=== PATIENT | female | born 1950 | race Caucasian/White ===

== ENCOUNTER 2020-05-14 19:15 | Inpatient (IN) | payer MEDICARE, MEDICAID ==
[~2020-05-14] VITALS: Ht 165.1 cm; Wt 56.8 kg
--- NOTE | 2020-05-14 19:20 | NUR ---
ED Nurse Note: pt BROOKE KRYSTYNA RA 25 from [facility] for hypotension and respiratory distress. per EMS, pt's BP was in the 50's systolic, she was satting in the low 80's on RA. pt presents on a NRB mask with 15L O2 satting in the low 90's, she appears to have increased work of breathing with tachycardia ranging in the 180's-190's. pt is not alert or oriented, groaning, mildy responsive to pain. LEIGHTON, 2 RN's and RT immediately at pt bedside. ERMD cardioverted pt, RN's unable to establish peripheral IV, pt prepared for central line
--- NOTE | 2020-05-14 19:27 | NUR ---
ED Nurse Note: triple lumen central line placed in R IJ by Dr. Soliman
--- NOTE | 2020-05-14 19:30 | NUR ---
ED Nurse Note: pads placed on pt, LEIGHTON cardioverted pt at following: HR 174, 120 J delivered by LEIGHTON 1932: HR 158, 150 J delivered by LEIGHTON 1939: HR 162, 200J delivered by LEIGHTON 1947: HR 184, 200J delivered by LEIGHTON 1951: HR 175, 200J delievered by LEIGHTON
[2020-05-14 19:35] VITALS: BP 60/40
--- NOTE | 2020-05-14 19:45 | NUR ---
ED Nurse Note: ERMD gave verbal order for 10mg of entomidate and 100mg of Rocoronium to prepare pt for intubation
--- NOTE | 2020-05-14 19:45 | NUR ---
ED Nurse Note: Dr. Soliman placed triple lumen central line to pt's R IJ. all ports flushing well, patent and intact. blood collected and sent to lab
--- NOTE | 2020-05-14 19:50 | NUR ---
Note undone in EDM - 05/14/20 at 2312 by QLE ED Nurse Note: pt BROOKE KRYSTYNA RA 25 from [facility] for hypotension and respiratory distress. per EMS, pt's BP was in the 50's systolic, she was satting in the low 80's on RA. pt presents on a NRB mask with 15L O2 satting in the low 90's, she appears to have increased work of breathing with tachycardia ranging in the 180's-190's. pt is not alert or oriented, groaning, mildy responsive to pain. LEIGHTON, 2 RN's and RT immediately at pt bedside. LEIGHTON cardioverted pt, RN's unable to establish peripheral IV, pt prepared for central line
--- NOTE | 2020-05-14 19:50 | NUR ---
ED Nurse Note: ERMD gave verbal order for levophed, max dose. pt has levophed running at 30 mcg/ min
--- NOTE | 2020-05-14 19:50 | NUR ---
ED Nurse Note: ERMD placed ETT with RT at pt bedside, 2 attempts, successful on second attempt, chest rise noted
--- NOTE | 2020-05-14 19:51 | NUR ---
ED Nurse Note: pt appeared to have dark red blood suctioned from airway on intubation. approximately 50 mL in suction cannister
[2020-05-14 19:54] LABS: BASOPHILS % (AUTO) 1.4 % (0.0-2.0); HEMATOCRIT 43.5 % (37.0-47.0); HEMOGLOBIN 13.7 G/DL (12.0-16.0); LYMPHOCYTES % (AUTO) 9.4 % (20.0-45.0); MEAN CORPUSCULAR VOLUME 98 FL (80-99); MONOCYTES % (AUTO) 4.6 % (1.0-10.0); NEUTROPHILS % (AUTO) 84.7 % (45.0-75.0); PLATELET COUNT 104 K/UL (150-450); RED BLOOD COUNT 4.46 M/UL (4.20-5.40); RED CELL DISTRIBUTION WIDTH 14.8 % (11.6-14.8); WHITE BLOOD COUNT 12.4 K/UL (4.8-10.8)
--- NOTE | 2020-05-14 20:00 | NUR ---
ED Nurse Note: HR 177, pt cardioverted. 200J shock delivered by ERMD
--- NOTE | 2020-05-14 20:00 | NUR ---
ED Nurse Note: pt is noted to have a g tube and a small wound on her back, redness to coccyx with skin intact, as well as one on LLE Addendum: 05/14/20 at 2206 by QLE rectal temp of 104.0
[2020-05-14 20:13] LABS: LACTATE DEHYDROGENASE 543 U/L (81-234)
--- NOTE | 2020-05-14 20:13 | Emergency Room Report ---
History of Present Illness General Chief Complaint: Dyspnea/Respdistress Source: Medical Record, EMS Present Illness HPI Disclaimer: Please note that this report is being documented using DRAGON technology. This can lead to erroneous entry secondary to incorrect interpretation by the dictating instrument. HPI: 70-year-old female history of dementia, cachexia, dysphasia G-tube dependent feeding presents for evaluation of rapid heart rate and hypotension. Patient brought in by EMS from intermediate facility. She is on nonrebreather, saturating 90%, tachypneic, moaning incoherently. Heart rate between 180 and 200 bpm. Initial systolic blood pressures in the 50s. Cannot obtain any information from patient or EMS. 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 EOMI. Cardiovascular: Tachycardia heart rate [place] I 80 bpm Resp: On nonrebreather 15 L, tachypneic with increased work of breathing Abdomen: G-tube in place, abdomen nondistended Skin: Intact. No abrasions, laceration or rash over the exposed skin MSK: Diffuse loss of muscle tone and bulk Neuro: Moaning incoherently, GCS 7 Procedures Critical Care Time Critical Care Time Total critical care time: Approximately 90 minutes Due to a high probability of clinically significant, life threatening deterioration, the patient required the highest level of preparedness to intervene emergently and I personally spent this critical care time directly and personally managing the patient. This critical care time included obtaining a history, examining the patient, pulse oximetry, ordering and reviewing studies , ordering treatments, evaluating response to treatment and updating management plan as needed, frequent reassessment and discussion with other providers as well as arranging for ultimate disposition. This critical to care time was performed to assess and manage the high probability of life-threatening deterioration that could result in multiorgan failure. This critical care time is separate from the separately billable procedures and treating other patients. Cardioversion Cardioversion: Consent: Emergent Indication: SVT Type: Synchonis Response: Sinus Attempts: Other - 5 Complications: None Central Line Central Line : Consent: Emergent Central Line Lumen: triple Maximal Sterile Barrier Tech: yes cap, yes mask, yes sterile gloves, yes hand hygiene, yes chlorhexidine prep No Max Barrier Tech Because: emergency insertion Central Line Postion: internal jugular (R) US Guided Line?: Yes Vessel visualized with U/S: Right Internal Jugular Ultrasound Findings: Collapsible Vessel, Vessel Patent, Visualize vessel puncture Complications: none Central Line Post Position: sutured, good blood return, position confirmed w / CXR Attempts: One Patient Tolerated: Well Complications: None Intubation Intubation : Consent: Emergent Intubation Method: orotracheal Tube Size (cm): 7.5 Medications: Etomidate, Rocuronium Breath Sounds after Intubation: equal Intubation Complications: no complications Post Intubation Xray: Yes Progress/Xray Impression: ET tube above the awa Attempts: One Patient Tolerated: Well Complications: None Medical Decision Making Diagnostic Impression: Primary Impression: COVID-19 Additional Impressions: Rapid atrial fibrillation Respiratory failure Sepsis Hypernatremia Renal failure Elevated d-dimer ER Course Is a 70-year-old female presenting hypotensive, tachycardic and respiratory distress. Patient was in a narrow complex tachycardia on arrival and hypotensive. Synchronized cardioversion performed multiple times with final control of rhythm and rate. Remains tachycardic in the 130s. Patient had very poor peripheral access and a right-sided internal jugular line was placed by me under ultrasound guidance. Started immediately on levo fed, 30 cc/kg sepsis fluids. Patient was intubated under glide scope visualization was 7.5 and a tracheal tube. There was dark blood in the upper airway. Endotracheal tube appears in appropriate position above the awa. No obvious infiltrate. Full lab panel sent including cultures and lactate. Started on broad-spectrum antibiotics. Acetaminophen ordered for high fever. She is positive for COVID- 19. Decadron ordered. D-dimer positive but will defer anticoagulants at this time as the patient had bloody secretions in the oral airway. Patient will be admitted to her PMD, Dr. Wade, to the ICU. Sepsis reevaluation: I, Dr. Antoine Soliman, reevaluated the patient at 2032 MAP: 65 Heart rate: 123 Respiratory rate: 22 Initial Lactate: 5.0 Repeat Lactate: 3.0 Pressors: Levophed No signs of fluid overload Laboratory Tests Test 05/14/20 19:20 05/14/20 21:00 White Blood Count 12.4 K/UL (4.8-10.8) H Red Blood Count 4.46 M/UL (4.20-5.40) Hemoglobin 13.7 G/DL (12.0-16.0) Hematocrit 43.5 % (37.0-47.0) Mean Corpuscular Volume 98 FL (80-99) Mean Corpuscular Hemoglobin 30.7 PG (27.0-31.0) Mean Corpuscular Hemoglobin Concent 31.4 G/DL (32.0-36.0) L Red Cell Distribution Width 14.8 % (11.6-14.8) Platelet Count 104 K/UL (150-450) L Mean Platelet Volume 15.0 FL (6.5-10.1) H Neutrophils (%) (Auto) 84.7 % (45.0-75.0) H Lymphocytes (%) (Auto) 9.4 % (20.0-45.0) L Monocytes (%) (Auto) 4.6 % (1.0-10.0) Eosinophils (%) (Auto) 0.0 % (0.0-3.0) Basophils (%) (Auto) 1.4 % (0.0-2.0) Prothrombin Time 11.5 SEC (9.30-11.50) Prothrombin Time INR 1.0 (0.9-1.1) Activated Partial Thromboplast Time 22 SEC (23-33) L D-Dimer 2.05 mg/L FEU (0.00-0.49) H Sodium Level 174 MMOL/L (136-145) *H Potassium Level 4.3 MMOL/L (3.5-5.1) Chloride Level 130 MMOL/L (98-107) H Carbon Dioxide Level 31 MMOL/L (21-32) Anion Gap 14 mmol/L (5-15) Blood Urea Nitrogen 131 mg/dL (7-18) H Creatinine 2.7 MG/DL (0.55-1.30) H Estimated Glomerular Filtration Rate 17.4 mL/min (>60) Glucose Level 462 MG/DL (74-106) H Lactic Acid Level 5.00 mmol/L (0.4-2.0) H Calcium Level 9.5 MG/DL (8.5-10.1) Ferritin 912 NG/ML (8-388) H Total Bilirubin 0.5 MG/DL (0.2-1.0) Aspartate Amino Transferase (AST) 51 U/L (15-37) H Alanine Aminotransferase (ALT) 101 U/L (12-78) H Alkaline Phosphatase 25 U/L (46-116) L Lactate Dehydrogenase 543 U/L (81-234) H Total Creatine Kinase 65 U/L (26-308) Creatine Kinase MB < 0.5 NG/ML (0.0-3.6) Creatine Kinase MB Relative Index 0.7 Troponin I 1.258 ng/mL (0.000-0.056) C-Reactive Protein, Quantitative < 0.4 mg/dL (0.00-0.90) Pro-B-Type Natriuretic Peptide 18745 pg/mL (0-125) H Total Protein 6.6 G/DL (6.4-8.2) Albumin 2.5 G/DL (3.4-5.0) L Globulin 4.1 g/dL Albumin/Globulin Ratio 0.6 (1.0-2.7) L Arterial Blood pH 7.385 (7.350-7.450) Arterial Blood Partial Pressure CO2 38.6 mmHg (35.0-45.0) Arterial Blood Partial Pressure O2 208.2 mmHg (75.0-100.0) H Arterial Blood HCO3 22.6 mmol/L (22.0-26.0) Arterial Blood Oxygen Saturation 98.6 % (95-100) Arterial Blood Base Excess -2.1 (-2-2) L Anthony Test Positive Microbiology Date/Time Source Procedure Growth Status 05/14/20 19:40 Nasopharynx SARS-CoV-2 RdRp Gene Assay - Final Complete EKG Diagnostic Results EKG Time: 19:11 Rate: tachycardiac Other Impression Irregular rhythm, narrow complex tachycardia. Rhythm Strip Diag. Results Rhythm Strip Time: 19:11 EP Interpretation: yes Rate: 190s Rhythm: other - Irregularly rhythm narrow complex tachycardia Chest X-Ray Diagnostic Results Chest X-Ray Diagnostic Results : Chest X-Ray Ordered: Yes # of Views/Limited/Complete: 1 View Indication: Shortness of Breath EP Interpretation: Yes Interpretation: no consolidation, no effusion, no pneumothorax, other - ETT above the awa. No obvious infiltrate. Central line appropriate position Impression: Other - ETT in appropriate position Electronically Signed by: Electronically signed by Dr. Antoine Soliman Last Vital Signs Date Time Temp Pulse Resp B/P (MAP) Pulse Ox O2 Delivery O2 Flow Rate FiO2 05/14/20 19:35 160 30 Non-Rebreather 15.0 05/14/20 19:35 60/40 97 05/14/20 19:04 104.0 Disposition: ADMITTED INPATIENT Condition: Critical Referrals: Jessica Wade MD (PCP) Antoine Soliman MD May 14, 2020 20:13
[2020-05-14] MEDS ORDERED: Piperacillin/Tazobactam 3.375 GM in NS 110 ML IVPB ONE (20:15)
[2020-05-14] MEDS ORDERED: Morphine Sulfate 2mg/ml Inj(IV/IM USE ONLY) IVP PRN ×2 (20:15)
[2020-05-14] MEDS ORDERED: Cefepime HCl 1 GM in D5W 55 ML IVPB ONE (20:15)
[2020-05-14] MEDS ORDERED: Acetaminophen 650 MG SUPP RECTAL ONE (20:15)
[2020-05-14] MEDS ORDERED: Vancomycin 1 GM in NS 275 ML IVPB ONE (20:15)
[2020-05-14 20:25] LABS: ALANINE AMINOTRANSFERASE 101 U/L (12-78); ALBUMIN 2.5 G/DL (3.4-5.0); ALBUMIN/GLOBULIN RATIO 0.6 (1.0-2.7); ALKALINE PHOSPHATASE 25 U/L (46-116); ANION GAP 14 mmol/L (5-15); ASPARTATE AMINO TRANSFERASE 51 U/L (15-37); BILIRUBIN,TOTAL 0.5 MG/DL (0.2-1.0); BLOOD UREA NITROGEN 131 mg/dL (7-18); CALCIUM 9.5 MG/DL (8.5-10.1); CARBON DIOXIDE 31 MMOL/L (21-32); CHLORIDE 130 MMOL/L (98-107); CKMB < 0.5 NG/ML (0.0-3.6); CREATINE KINASE 65 U/L (26-308); CREATININE 2.7 MG/DL (0.55-1.30); FERRITIN 912 NG/ML (8-388); POTASSIUM 4.3 MMOL/L (3.5-5.1)
[2020-05-14 20:27] LABS: SODIUM 174 MMOL/L (136-145)
--- NOTE | 2020-05-14 20:34 | Diagnostic Imaging Report ---
EXAM: XR Chest, 1 View CLINICAL HISTORY: SOB TECHNIQUE: Frontal view of the chest. COMPARISON: No relevant prior studies available. FINDINGS: Lungs: Retrocardiac atelectasis/infiltrate. Pulmonary venous congestion. Pleural space: No pleural effusion. No pneumothorax. Heart: Unremarkable. No cardiomegaly. Bones/joints: Degenerative changes in the shoulders. Tubes, lines and devices: Endotracheal tube terminates 4 cm above the awa. Right IJ central line terminates within the right atrium. IMPRESSION: 1. Appropriately positioned position lines and tubes. 2. Retrocardiac atelectasis/infiltrate. 3. Pulmonary venous congestion.
[2020-05-14 20:35] VITALS: BP 93/56
[2020-05-14 21:00] VITALS: BP 83/54
[2020-05-14] MEDS: Enoxaparin 30mg Inj SUBQ SCH (21:00)
--- NOTE | 2020-05-14 21:00 | NUR ---
ED Nurse Note: ERMD gave verbal order to keep levophed at max dose of 30 mcg/min. BP is 83/54
[2020-05-14] MEDS ORDERED: Vancomycin 1 GM in D5W 275 ML IV SCH (21:15)
--- NOTE | 2020-05-14 21:20 | NUR ---
ED Nurse Note: pt remains at baseline mentation, unarosuable to name, mildy responsive to pain. triple lumen central line has IV fluids, levophed and abx running per ERMD orders. pt remains tachy at 1211 and hypotensive at 83/54 with max dose of 30 mcg/min of levophed running. bellamy catheter was placed with small amount red urine collected. temperature recheck is 100 rectally
[2020-05-14] MEDS ORDERED: Vancomycin 750mg/NS 275ml IVPB SCH ×2 (21:30)
[2020-05-14 21:40] VITALS: BP 108/69
--- NOTE | 2020-05-14 21:40 | NUR ---
ED Nurse Note: ERMD gave verbal order to keep levophed at max dose, BP 108/69
[2020-05-14] MEDS ORDERED: dexAMETHasone 10mg/ml Inj IV ONE (22:00)
[2020-05-14] MEDS ORDERED: Cefepime HCl 2 GM in D5W 110 ML IV SCH (22:00)
--- NOTE | 2020-05-14 22:00 | NUR ---
ED Nurse Note: report given to SARA Rae, no HEPA filter available in room, states she will call back when room is ready for pt
[2020-05-14 22:01] LABS: APPEARANCE,URINE TURBID; BILIRUBIN, URINE NEGATIVE (NEGATIVE); GLUCOSE, URINE (UA) NEGATIVE (NEGATIVE); KETONES,URINE 1+ (NEGATIVE); LEUKOCYTE ESTERASE ,URINE 3+ (NEGATIVE); NITRITE,URINE NEGATIVE (NEGATIVE); PH,URINE 8 (4.5-8.0); PROTEIN,URINE 4+ (NEGATIVE); UROBILINOGEN,URINE 1 MG/DL (0.0-1.0)
--- NOTE | 2020-05-14 22:30 | NUR ---
Nurse Note: Spoke with clerk Javier at [facility] and agreed to fax over medication list. Awaiting paper.
[2020-05-14 22:32] LABS: COLOR,URINE YELLOW
[2020-05-14] MEDS ORDERED: MULTI-DELYN237 ML GT (22:40)
[2020-05-14] MEDS ORDERED: BUSPAR10 MG GT (22:41)
--- NOTE | 2020-05-14 22:44 | NUR ---
NURSE NOTES: Received report from SAAR Robles at 2169. Patient arrived to ICU 2243. patient does not respond to painful stimuli. patient with 7.5 ETT at 23cm lip on ventilator AC 12 TV 500 FiO2 50% PEEP 5. BP 57/39 HR 103 temp 99.7F rectal. RIJ TLC dressing re-enforced with Levophed max 30mcg/min. gtube red with excoriation, dressing changed. abdomen soft round. Arauz catheter with scant yellow urine. right ischium nonblanchable stage I, Sacral nonblanchable stage I, left lateral lower extremity scar, upper back skin tear stage II, bilateral heel boggy. WCP taken and areas covered with Optifoam. bed locked lowest position.
--- NOTE | 2020-05-14 22:44 | NUR ---
ED Nurse Note: IV levophed d/c on floor, fully infused, new bag started by admitting RN per MD orders
[2020-05-14 23:06] VITALS: BP 83/54
--- NOTE | 2020-05-14 23:19 | NUR ---
NURSE NOTES: Paged Dr. Wade to inform of abnormal lab values, Gtube redness and excoriation with rectal bleed noted, and patient hypotensive max Levophed. Dr. Wade aware, order received for double concentration Levophed. order read back and carried out.
[2020-05-14] MEDS: Cefepime 1gm in D5W 55ml IVPB SCH (23:23)
--- NOTE | 2020-05-14 23:50 | NUR ---
NURSE NOTES: Paged Dr. Enriquez for ventilator setting and sedation orders. message left. awaiting call back.
[2020-05-15] VITALS (60 sets, daily range): BP systolic 61–157; BP diastolic 38–101
--- NOTE | 2020-05-15 | NUR ---
NURSE NOTES: patient does not respond to painful stimuli, hypoactive gag reflex with thin brown secretions noted. patient with 7.5 ETT at 23cm lip on ventilator AC 12 TV 500 FiO2 50% PEEP 5. BP 63/41 HR86 Afib on monitor. RIJ TLC dressing re-enforced with Levophed max 30mcg/min, D5W @ 100ml/hr asymptomatic. Arauz catheter draining yellow urine. bed locked lowest position. patient repositioned and oral care provided.
--- NOTE | 2020-05-15 00:15 | NUR ---
NURSE NOTES: Paged Dr. Enriquez for second time regarding ventilator setting and sedation orders. message left. awaiting call back.
--- NOTE | 2020-05-15 00:18 | NUR ---
NURSE NOTES: Paged Dr. Wade regarding patient BP 63/41 max on double concentration Levophed. orders received read back and carried out.
[2020-05-15] MEDS: Phenylephrine 100 MG in D5W 240 ML IV SCH ×2 (00:31→13:28)
--- NOTE | 2020-05-15 01:36 | NUR ---
NURSE NOTES: Dr. Enriquez returned page for ventilator setting: AC 12 TV 500 FiO2 50% PEEP 5 with order for norco as sedation. order read back and carried out.
[2020-05-15] MEDS ORDERED: HYDROcodone/Acetamin 5/325 tab GT PRN (01:45)
[2020-05-15] MEDS: Vasopressin 100 UNITS in NS 95 ML IV SCH (02:00)
--- NOTE | 2020-05-15 02:00 | NUR ---
NURSE NOTES: patient does not respond to painful stimuli. patient with 7.5 ETT at 23cm lip on ventilator AC 12 TV 500 FiO2 50% PEEP 5. BP114/68 HR104 Afib on monitor. RIJ TLC dressing re-enforced with Levophed max 30mcg/min, D5W @ 100ml/hr, and phenylephrine 160 mcg/min, asymptomatic. Arauz catheter draining yellow urine. bed locked lowest position. patient repositioned and oral care provided.
--- NOTE | 2020-05-15 04:00 | NUR ---
NURSE NOTES: patient withdraws to deep pain but nonverbal with 7.5 ETT at 23cm lip on ventilator AC 12 TV 500 FiO2 50% PEEP 5. BP104/70 HR94 NSR on monitor temp 100.4F axillary. RIJ TLC running Levophed 30mcg/min, D5W @ 100ml/hr, and phenylephrine 100 mcg/min, asymptomatic. Arauz catheter draining yellow urine. bed locked lowest position. patient bathed, repositioned and oral care provided.
[2020-05-15 05:21] LABS: HEMOGLOBIN 13.5 G/DL (12.0-16.0); MEAN CORPUSCULAR VOLUME 96 FL (80-99); PLATELET COUNT 92 K/UL (150-450); RED BLOOD COUNT 4.46 M/UL (4.20-5.40); RED CELL DISTRIBUTION WIDTH 13.8 % (11.6-14.8); WHITE BLOOD COUNT 13.4 K/UL (4.8-10.8)
--- NOTE | 2020-05-15 06:00 | NUR ---
NURSE NOTES: patient withdraws to pain and opens eyes but nonverbal with 7.5 ETT at 23cm on ventilator AC 12 TV 500 FiO2 50% PEEP 5. BP115/76 HR95. RIJ TLC running Levophed 30mcg/min, phenylephrine 100mcg/min, D5W @100ml/hr asymptomatic. gtube clamped and patent. Arauz catheter draining yellow urine. Sacral stage I, upper back II, left lateral lower leg stage II, and bilateral heels boggy covered with Optifoam. patient repositioned, oral care provided, bed locked lowest position.
[2020-05-15 06:21] LABS: ANION GAP 20 mmol/L (5-15); BLOOD UREA NITROGEN 106 mg/dL (7-18); CALCIUM 8.1 MG/DL (8.5-10.1); CARBON DIOXIDE 19 MMOL/L (21-32); CHLORIDE 119 MMOL/L (98-107); CREATININE 2.3 MG/DL (0.55-1.30); POTASSIUM 3.8 MMOL/L (3.5-5.1); SODIUM 158 MMOL/L (136-145)
[2020-05-15 06:26] LABS: ALANINE AMINOTRANSFERASE 93 U/L (12-78); ALBUMIN 2.3 G/DL (3.4-5.0); ALKALINE PHOSPHATASE 30 U/L (46-116); ANION GAP 20 mmol/L (5-15); ASPARTATE AMINO TRANSFERASE 46 U/L (15-37); BILIRUBIN,DIRECT 0.2 MG/DL (0.0-0.3); BILIRUBIN,TOTAL 0.8 MG/DL (0.2-1.0); BLOOD UREA NITROGEN 107 mg/dL (7-18); CALCIUM 8.1 MG/DL (8.5-10.1); CARBON DIOXIDE 20 MMOL/L (21-32); CHLORIDE 119 MMOL/L (98-107); CREATININE 2.3 MG/DL (0.55-1.30); POTASSIUM 3.7 MMOL/L (3.5-5.1); SODIUM 158 MMOL/L (136-145)
--- NOTE | 2020-05-15 06:45 | NUR ---
NURSE NOTES: Paged Dr. Wade to report abnormal labs. orders received read back and carried out.
--- NOTE | 2020-05-15 07:07 | NUR ---
HAND-OFF: Report given to SARA Dupree. endorsed plan of care.
--- NOTE | 2020-05-15 07:15 | NUR ---
NURSE NOTES: Patient received from Myrna RUIZ. Patient stable at this time. VSS. RR even and unlabored on ETT 7.5 lip line 23cm. Vent settings AC 12 500mL 50% P5. Breath sounds diminished. Cardiac sounds benign. Appears to be NSR on traffic monitor specialist. Patient is opening eyes does not track but responds to light pain. Pupils do not react to light consistent with hx of blindness. On q2hr accucheck. Will check at 8am when Levemir due. Arauz draining well to gravity. RT IJ patent and intact with Levo running at 30mcg and ivelisse at 100mcg. Fluids with dextose stopped at this time due to critical glucose level this AM. Side rails up x3, call light within reach, bed low and locked. Will continue to monitor.
--- NOTE | 2020-05-15 07:20 | NUR ---
NURSE NOTES: Gary brought up to 160mcg. FIO2 raised to 60%. VSS now stable. Will continue to monitor.
--- NOTE | 2020-05-15 07:38 | NUR ---
NURSE NOTES: Spoke with Dr. Wade and reported Troponin, Lactic Acid and Ammonia levels. Order received for q1hr accucheck and dose of novolog to be given.
[2020-05-15] MEDS ORDERED: NovoLOG Insulin Flexpen SUBQ SCH ×2 (08:00→11:30)
[2020-05-15] MEDS ORDERED: Levemir Flexpen SUBQ SCH (08:00)
[2020-05-15] MEDS: Pantoprazole Inj IV SCH (08:27)
--- NOTE | 2020-05-15 08:39 | NUR ---
NURSE NOTES: Dr. Wade called and reported critical high result blood sugar after 30min of administering 14 units of insulin. also reported bicab of 16 on ABG. Awaiting call back. Recommended paper cone machine tender and possible insulin drip.
[2020-05-15] MEDS ORDERED: Insulin Rate Change 1 Each MISC PRN ×2 (09:15→15:45)
[2020-05-15] MEDS ORDERED: Insulin Human Regular 100units/ml 3ml IV PRN (09:15)
[2020-05-15] MEDS: Cefepime 1gm in D5W 55ml IVPB SCH ×2 (09:16→20:58)
[2020-05-15] MEDS ORDERED: Insulin Reg 100 units Premix 100 ML IVPB SCH ×2 (09:30→15:45)
[2020-05-15 10:01] LABS: ANION GAP 20 mmol/L (5-15); BLOOD UREA NITROGEN 100 mg/dL (7-18); CALCIUM 8.8 MG/DL (8.5-10.1); CARBON DIOXIDE 20 MMOL/L (21-32); CHLORIDE 119 MMOL/L (98-107); CREATININE 2.5 MG/DL (0.55-1.30); POTASSIUM 3.5 MMOL/L (3.5-5.1); SODIUM 159 MMOL/L (136-145)
--- NOTE | 2020-05-15 10:09 | History and Physical ---
History of Present Illness General Date patient seen: May 15, 2020 Time patient seen: 08:10 Reason for Hospitalization: Dyspnea/Respdistress Present Illness HPI 70-year-old female history of dementia, CVA with dysphagia, s/p PEG dependent for feeding, cachexia, T2DM, pressure ulcers, home oxygen dependent, hypothyroidism, legal blindness, HTN who is now at [facility] due to COVID positive testing at her home SNF. She now presents for evaluation of rapid heart rate and hypotension. Patient brought in by EMS from [facility] facility. She is on nonrebreather, saturating 90%, tachypneic, moaning incoherently in the ER with Heart rate between 180 and 200 bpm. Initial systolic blood pressures in the 50s. She underwent direct cardioversion x 3 and her HR improved to the 120's, intubation, R IJ TLC done in the ED. Started on antibiotics ( Zosyn, Vanco, Cefepime ) and admission to ICU required. She was continued on D5W IVF overnight due to hypernatremia. This morning her Sodium improved from 172 to 158 however her glucose is > 600 Ventilator was adjusted and her FiO2 is now at 70 % ( from 40 % ) BP is compensated and stable with 2 vasopressors Allergies: Coded Allergies: DIVALPROEX SODIUM (Verified Allergy, Unknown, 05/14/20) PENICILLINS (Verified Allergy, Unknown, 05/14/20) COVID-19 Screening Contact w/high risk pt: Yes Recent Travel to affected area: Yes Experienced COVID-19 symptoms?: Yes COVID-19 symptoms experienced: Fever (T>100.4F or >38C) Medication History Scheduled Buspirone Hcl* (Buspar*), 5 MG GT THREE TIMES A DAY, (Reported) Multivitamin Liquid* (Multi-Delyn*), 5 ML GT DAILY, (Reported) Patient History Limited by: medical condition History Provided By: Medical Record Healthcare decision maker Resuscitation status Advanced Directive on File Past Medical/Surgical History Past Medical/Surgical History: (1) T2DM (type 2 diabetes mellitus) (2) CVA (cerebral vascular accident) (3) Dementia (4) Pressure ulcer (5) Gastrostomy present (6) COVID-19 Social History Social History: (1) COVID-19 (2) Gastrostomy present (3) T2DM (type 2 diabetes mellitus) (4) Rapid atrial fibrillation (5) Sepsis (6) Respiratory failure (7) Hypernatremia Review of Systems All Other Systems: negative except mentioned in HPI Physical Exam General Appearance: moderate distress Lines, tubes and drains: central line HEENT: normocephalic, atraumatic Neck: supple Respiratory/Chest: decreased breath sounds Cardiovascular/Chest: tachycardia Abdomen: normal bowel sounds, non tender, feeding tube Genitourinary/Rectal: bellamy 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 II-XII grossly normal Last 24 Hour Vital Signs Date Time Temp Pulse Resp B/P (MAP) Pulse Ox O2 Delivery O2 Flow Rate FiO2 05/15/20 08:11 105/71 05/15/20 07:14 103 28 60 05/15/20 07:00 101 19 90/61 (71) 92 05/15/20 07:00 90/61 05/15/20 06:30 87 22 05/15/20 06:00 95 21 115/76 (89) 95 05/15/20 06:00 115/76 05/15/20 05:15 87 18 50 05/15/20 05:00 91 20 119/101 (107) 100 05/15/20 05:00 119/101 05/15/20 04:30 94 19 102/73 (83) 05/15/20 04:00 50 05/15/20 04:00 100.4 94 17 104/70 (81) 100 05/15/20 04:00 Mechanical Ventilator 05/15/20 04:00 104/70 05/15/20 04:00 85 05/15/20 03:30 83 19 50 05/15/20 03:30 98 18 108/68 (81) 90 05/15/20 03:00 88 20 87/63 (71) 90 05/15/20 03:00 83/64 05/15/20 02:30 105 18 132/101 (111) 87 05/15/20 02:00 114/68 05/15/20 02:00 106 16 114/68 (83) 95 05/15/20 01:30 97 16 50 05/15/20 01:00 157/88 05/15/20 01:00 81 15 157/88 (111) 92 05/15/20 00:31 83 61/38 05/15/20 00:30 89 12 80/56 (64) 94 05/15/20 00:19 80 05/15/20 00:15 83 14 61/38 (46) 93 05/15/20 00:00 99.7 85 13 81/54 (63) 94 05/15/20 00:00 63/41 05/15/20 00:00 Mechanical Ventilator 05/14/20 23:32 94 12 50 05/14/20 23:11 Mechanical Ventilator 05/14/20 23:11 50 05/14/20 23:00 103/73 05/14/20 22:49 98 05/14/20 22:44 68/56 05/14/20 22:43 87/56 05/14/20 22:30 100.0 112 12 68/56 97 Mechanical Ventilator 15.0 100 05/14/20 22:30 99/68 05/14/20 22:00 82/52 05/14/20 21:57 68/56 05/14/20 21:40 100.0 112 12 108/69 97 Mechanical Ventilator 100 05/14/20 21:37 100.0 05/14/20 21:00 104.0 115 20 83/54 100 Mechanical Ventilator 15.0 50 05/14/20 20:35 120 20 93/56 100 Mechanical Ventilator 100 05/14/20 19:45 124 12 100 05/14/20 19:35 160 30 Non-Rebreather 15.0 05/14/20 19:35 160 30 60/40 97 Non-Rebreather 15.0 05/14/20 19:04 104.0 160 30 60/40 (47) 97 Non-Rebreather 15.0 Intake and Output 05/14/20 05/15/20 19:00 07:00 Intake Total 1878.4159 ml Output Total 885 ml Balance 993.4159 ml Intake Oral 0 ml IV Total 1878.4159 ml Output Urine Total 885 ml Laboratory Tests Test 05/14/20 19:20 05/14/20 21:00 05/14/20 21:30 05/15/20 04:00 White Blood Count 12.4 K/UL (4.8-10.8) H 13.4 K/UL (4.8-10.8) H Red Blood Count 4.46 M/UL (4.20-5.40) 4.46 M/UL (4.20-5.40) Hemoglobin 13.7 G/DL (12.0-16.0) 13.5 G/DL (12.0-16.0) Hematocrit 43.5 % (37.0-47.0) 43.0 % (37.0-47.0) Mean Corpuscular Volume 98 FL (80-99) 96 FL (80-99) Mean Corpuscular Hemoglobin 30.7 PG (27.0-31.0) 30.2 PG (27.0-31.0) Mean Corpuscular Hemoglobin Concent 31.4 G/DL (32.0-36.0) L 31.3 G/DL (32.0-36.0) L Red Cell Distribution Width 14.8 % (11.6-14.8) 13.8 % (11.6-14.8) Platelet Count 104 K/UL (150-450) L 92 K/UL (150-450) L Mean Platelet Volume 15.0 FL (6.5-10.1) H 14.6 FL (6.5-10.1) H Neutrophils (%) (Auto) 84.7 % (45.0-75.0) H % (45.0-75.0) Lymphocytes (%) (Auto) 9.4 % (20.0-45.0) L % (20.0-45.0) Monocytes (%) (Auto) 4.6 % (1.0-10.0) % (1.0-10.0) Eosinophils (%) (Auto) 0.0 % (0.0-3.0) % (0.0-3.0) Basophils (%) (Auto) 1.4 % (0.0-2.0) % (0.0-2.0) Prothrombin Time 11.5 SEC (9.30-11.50) Prothromb Time International Ratio 1.0 (0.9-1.1) Activated Partial Thromboplast Time 22 SEC (23-33) L D-Dimer 2.05 mg/L FEU (0.00-0.49) H Sodium Level 174 MMOL/L (136-145) *H 158 MMOL/L (136-145) #H Potassium Level 4.3 MMOL/L (3.5-5.1) 3.7 MMOL/L (3.5-5.1) Chloride Level 130 MMOL/L (98-107) H 119 MMOL/L (98-107) H Carbon Dioxide Level 31 MMOL/L (21-32) 20 MMOL/L (21-32) L Anion Gap 14 mmol/L (5-15) 20 mmol/L (5-15) H Blood Urea Nitrogen 131 mg/dL (7-18) H 107 mg/dL (7-18) H Creatinine 2.7 MG/DL (0.55-1.30) H 2.3 MG/DL (0.55-1.30) H Estimat Glomerular Filtration Rate 17.4 mL/min (>60) 20.9 mL/min (>60) Glucose Level 462 MG/DL (74-106) H 751 MG/DL (74-106) *H Lactic Acid Level 5.00 mmol/L (0.4-2.0) H 3.00 mmol/L (0.66-2.22) H 5.90 mmol/L (0.4-2.0) H Calcium Level 9.5 MG/DL (8.5-10.1) 8.1 MG/DL (8.5-10.1) L Ferritin 912 NG/ML (8-388) H Total Bilirubin 0.5 MG/DL (0.2-1.0) 0.8 MG/DL (0.2-1.0) Aspartate Amino Transf (AST/SGOT) 51 U/L (15-37) H 46 U/L (15-37) H Alanine Aminotransferase (ALT/SGPT) 101 U/L (12-78) H 93 U/L (12-78) H Alkaline Phosphatase 25 U/L (46-116) L 30 U/L (46-116) L Lactate Dehydrogenase 543 U/L (81-234) H Total Creatine Kinase 65 U/L (26-308) Creatine Kinase MB < 0.5 NG/ML (0.0-3.6) Creatine Kinase MB Relative Index 0.7 Troponin I 1.258 ng/mL (0.000-0.056) 1.202 ng/mL (0.000-0.056) C-Reactive Protein, Quantitative < 0.4 mg/dL (0.00-0.90) Pro-B-Type Natriuretic Peptide 94438 pg/mL (0-125) H Total Protein 6.6 G/DL (6.4-8.2) 6.3 G/DL (6.4-8.2) L Albumin 2.5 G/DL (3.4-5.0) L 2.3 G/DL (3.4-5.0) L Globulin 4.1 g/dL Albumin/Globulin Ratio 0.6 (1.0-2.7) L Arterial Blood pH 7.385 (7.350-7.450) Arterial Blood Partial Pressure CO2 38.6 mmHg (35.0-45.0) Arterial Blood Partial Pressure O2 208.2 mmHg (75.0-100.0) H Arterial Blood HCO3 22.6 mmol/L (22.0-26.0) Arterial Blood Oxygen Saturation 98.6 % (95-100) Arterial Blood Base Excess -2.1 (-2-2) L Anthony Test Positive Urine Color Yellow Urine Appearance Turbid Urine pH 8 (4.5-8.0) Urine Specific Jelm 1.010 (1.005-1.035) Urine Protein 4+ (NEGATIVE) H Urine Glucose (UA) Negative (NEGATIVE) Urine Ketones 1+ (NEGATIVE) H Urine Blood 5+ (NEGATIVE) H Urine Nitrite Negative (NEGATIVE) Urine Bilirubin Negative (NEGATIVE) Urine Urobilinogen 1 MG/DL (0.0-1.0) H Urine Leukocyte Esterase 3+ (NEGATIVE) H Urine RBC Tntc /HPF (0 - 2) H Urine WBC 15-20 /HPF (0 - 2) H Urine Squamous Epithelial Cells Moderate /LPF (NONE/OCC) H Urine Bacteria Many /HPF (NONE) H Neutrophils % (Manual) Pending Lymphocytes % (Manual) Pending Platelet Estimate Pending Platelet Morphology Pending Hemoglobin A1c 7.8 % (4.3-6.0) H Direct Bilirubin 0.2 MG/DL (0.0-0.3) Ammonia 35 umol/L (11-32) H Test 05/15/20 08:19 05/15/20 08:30 Arterial Blood pH 7.405 (7.350-7.450) Arterial Blood Partial Pressure CO2 26.1 mmHg (35.0-45.0) L Arterial Blood Partial Pressure O2 109.4 mmHg (75.0-100.0) H Arterial Blood HCO3 16.0 mmol/L (22.0-26.0) *L Arterial Blood Oxygen Saturation 97.6 % (95-100) Arterial Blood Base Excess -7.0 (-2-2) L Anthony Test Positive Sodium Level Pending Potassium Level Pending Chloride Level Pending Carbon Dioxide Level Pending Blood Urea Nitrogen Pending Creatinine Pending Estimat Glomerular Filtration Rate Pending Glucose Level Pending Hemoglobin A1c Pending Calcium Level Pending Phosphorus Level Pending Magnesium Level Pending Microbiology Date/Time Source Procedure Growth Status 05/14/20 19:40 Nasopharynx SARS-CoV-2 RdRp Gene Assay - Final Complete Height (Feet): 5 Height (Inches): 4.00 Weight (Pounds): 149 Medications Current Medications Medications (Trade) Dose Ordered Sig/Morgan Route PRN Reason Start Time Stop Time Status Last Admin Dose Admin Cefepime HCl 1 gm/ Dextrose 55 ml @ 110 mls/hr EVERY 12 HOURS IVPB 05/14/20 21:00 05/21/20 20:59 05/15/20 09:16 Chlorhexidine Gluconate (Lilliam-Hex 2%) 1 applic DAILY@2000 TOPIC 05/15/20 20:00 08/13/20 19:59 Dextrose (Dextrose 50%) 25 ml Q30M PRN IV Hypoglycemia 05/14/20 20:15 08/12/20 20:14 Dextrose (Dextrose 50%) 25 ml Q30M PRN IV Hypoglycemia 05/15/20 06:45 08/13/20 06:44 Dextrose (Dextrose 50%) 25 ml Q30M PRN IV HYPOGLYCEMIA 05/15/20 09:15 08/13/20 09:14 UNV Dextrose (Dextrose 50%) 50 ml Q30M PRN IV Hypoglycemia 05/14/20 20:15 08/12/20 20:14 Dextrose (Dextrose 50%) 50 ml Q30M PRN IV Hypoglycemia 05/15/20 06:45 08/13/20 06:44 Dextrose (Dextrose 50%) 50 ml Q30M PRN IV HYPOGLYCEMIA 05/15/20 09:15 08/13/20 09:14 UNV Enoxaparin Sodium (Lovenox) 30 mg Q24H SUBQ 05/14/20 21:00 08/12/20 20:59 Insulin Human (Reg)/Sodium Chloride 100 ml @ 0 mls/hr Q24H IVPB 05/15/20 09:30 08/13/20 09:29 Insulin Human Regular (NovoLIN R) 5 units PRN PRN IV BS 200-299 05/15/20 09:15 08/13/20 09:14 UNV Insulin Human Regular (NovoLIN R) 10 units PRN PRN IV BS=>300 05/15/20 09:15 08/13/20 09:14 UNV Miscellaneous Medication (Insulin Rate Change) 1 ea PRN PRN MISC Hyperglycemia 05/15/20 09:15 08/13/20 09:14 UNV Morphine Sulfate (Morphine Sulfate) 2 mg EVERY 3 HOURS PRN IVP Moderate Pain (Pain Scale 4-6) 05/14/20 20:15 05/21/20 20:14 Morphine Sulfate (Morphine Sulfate) 4 mg EVERY 3 HOURS PRN IVP Severe Pain (Pain Scale 7-10) 05/14/20 20:15 05/21/20 20:14 Norepinephrine Bitartrate 16 mg/ Dextrose 516 ml @ 0 mls/hr Q24H IV 05/14/20 23:30 06/13/20 23:29 05/15/20 08:11 Pantoprazole (Protonix) 40 mg DAILY IV 05/15/20 09:00 06/14/20 08:59 05/15/20 08:27 Phenylephrine HCl 100 mg/Dextrose 250 ml @ 0 mls/hr Q24H IV 05/15/20 00:15 06/14/20 00:14 05/15/20 00:31 Sodium Chloride 1,000 ml @ 75 mls/hr [id number] IV 05/15/20 06:45 06/14/20 06:44 05/15/20 07:53 Vancomycin HCl (Vanco pharmacy to dose) 1 ea DAILY PRN MISC VANCOMYCIN 05/14/20 21:00 06/13/20 20:59 Vasopressin 100 units/Sodium Chloride 100 ml @ 0 mls/hr Q24H IV 05/15/20 00:15 06/14/20 00:14 Assessment/Plan Status: unchanged Assessment/Plan: 70-year-old female history of dementia, cachexia, dysphasia G-tube dependent feeding presents for evaluation of rapid heart rate and hypotension. # Septic shock Etiology COVID 19 vs UTI vs bacteremia Bcx follow up Continue Vancomycin, Cefepime, Metronidazole. ID consult, Consider Azythromycin ( EKG does not show QT prolongation) Add Dexamethasone due to hypoxia # Acute respiratory failure Intubated ICU care appreciated Dr. Enriquez consulted Serial CXR and ventilator management per ICU-pulmonary # SVT vs A. Flutter s/p DC x 3 HR is controlled Vasopressors in place Levophed/Neosyn Cardiology consultation Dr. Morillo requested TTE will be needed when out of isolation due to COVID 19 # AG metabolic acidosis Expected PCO2 36 per Winter's formula and actual PCO2 26 underlying respiratory alkalosis Ddx lactic acidosis vs rule out DKA - doubt ingestions of alcohol related causes. Treat with IV insulin gtt # Hyperglycemia r/o DKA ABG and Ketones ordered Endocrine consult with Dr. Shelley IV insulin gtt for now # Hypernatremia D5W overnight improved sodium level down to 158 Monitor BMP q 6 hr Change IVF to 1/2 NS lower rate 75 cc hr # COVID 19 Positive on admission. Original infection > 15 days ago, do not qualify for Revdisimir or plasm Add Dexamethasone Await ID input for Azythromycin therapy due to cardiac presentation with SVT # Dysphagia PEG Await improvement in hemodynamic prior to tube feeds # Dementia Baseline # FULL CODE SW follow up to reach out to DPOA and consider change in code status due to high morbidity and risk of inpatient mortality. > 90 min spent in coordination of care and consultation with physicians and RN. Jessica Wade MD May 15, 2020 10:09
[2020-05-15] MEDS: Insulin Human Regular 100units/ml 3ml IV PRN ×4 (10:18→13:29)
--- NOTE | 2020-05-15 10:20 | NUR ---
NURSE NOTES: BS 586. 10 Units of insulin given now. Addendum: 05/15/20 at 1148 by JOSI SANCHEZ RN MARGARET critical high >600.
--- NOTE | 2020-05-15 11:20 | NUR ---
NURSE NOTES: BS 586. 10 Units of insulin given now.
--- NOTE | 2020-05-15 11:23 | Consultation ---
History of Present Illness General Date patient seen: May 15, 2020 Chief Complaint: Dyspnea/Respdistress Referring physician: Mauro Present Illness HPI Ms. Brandon is a 70 yo female with PMHx of Dementia, DM, CVA ( S/P PEG), COVID 19 infection and pressure ulcers. The patient was sent to the ED from her detention for tachycardia and low BP. She was hypoxic on arrival with HR up to 200. She had to be cardioverted and intuabted. She was admitted to the ICU with likely septic shock and is on pressors. CXR showed Retrocardiac atelectasis /infiltrate with Pulmonary venous congestion. She had a posive UA as well. History was obtained from the notes. She was Dx with COVID 19 about 3 weeks ago at her detention. PMHx Dementia DM CVA ( S/P PEG) COVID 19 infection pressure ulcers SocHx Unable to obtain FamHx Unable to obtain Allergies: Coded Allergies: DIVALPROEX SODIUM (Verified Allergy, Unknown, 05/14/20) PENICILLINS (Verified Allergy, Unknown, 05/14/20) Medication History Scheduled Buspirone Hcl* (Buspar*), 5 MG GT THREE TIMES A DAY, (Reported) Multivitamin Liquid* (Multi-Delyn*), 5 ML GT DAILY, (Reported) Patient History Healthcare decision maker Resuscitation status Advanced Directive on File Review of Systems ROS Narrative 12 point ROS Unable to obtain Physical Exam Last 24 Hour Vital Signs Date Time Temp Pulse Resp B/P (MAP) Pulse Ox O2 Delivery O2 Flow Rate FiO2 05/15/20 08:11 105/71 05/15/20 07:14 103 28 60 05/15/20 07:00 101 19 90/61 (71) 92 05/15/20 07:00 90/61 05/15/20 06:30 87 22 05/15/20 06:00 95 21 115/76 (89) 95 05/15/20 06:00 115/76 05/15/20 05:15 87 18 50 05/15/20 05:00 91 20 119/101 (107) 100 05/15/20 05:00 119/101 05/15/20 04:30 94 19 102/73 (83) 05/15/20 04:00 50 05/15/20 04:00 100.4 94 17 104/70 (81) 100 05/15/20 04:00 Mechanical Ventilator 05/15/20 04:00 104/70 05/15/20 04:00 85 05/15/20 03:30 83 19 50 05/15/20 03:30 98 18 108/68 (81) 90 05/15/20 03:00 88 20 87/63 (71) 90 05/15/20 03:00 83/64 05/15/20 02:30 105 18 132/101 (111) 87 05/15/20 02:00 114/68 05/15/20 02:00 106 16 114/68 (83) 95 05/15/20 01:30 97 16 50 05/15/20 01:00 157/88 05/15/20 01:00 81 15 157/88 (111) 92 05/15/20 00:31 83 61/38 05/15/20 00:30 89 12 80/56 (64) 94 05/15/20 00:19 80 05/15/20 00:15 83 14 61/38 (46) 93 05/15/20 00:00 99.7 85 13 81/54 (63) 94 05/15/20 00:00 63/41 05/15/20 00:00 Mechanical Ventilator 05/14/20 23:32 94 12 50 05/14/20 23:11 Mechanical Ventilator 05/14/20 23:11 50 05/14/20 23:00 103/73 05/14/20 22:49 98 05/14/20 22:44 68/56 05/14/20 22:43 87/56 05/14/20 22:30 100.0 112 12 68/56 97 Mechanical Ventilator 15.0 100 05/14/20 22:30 99/68 05/14/20 22:00 82/52 05/14/20 21:57 68/56 05/14/20 21:40 100.0 112 12 108/69 97 Mechanical Ventilator 100 05/14/20 21:37 100.0 05/14/20 21:00 104.0 115 20 83/54 100 Mechanical Ventilator 15.0 50 05/14/20 20:35 120 20 93/56 100 Mechanical Ventilator 100 05/14/20 19:45 124 12 100 05/14/20 19:35 160 30 Non-Rebreather 15.0 05/14/20 19:35 160 30 60/40 97 Non-Rebreather 15.0 05/14/20 19:04 104.0 160 30 60/40 (47) 97 Non-Rebreather 15.0 Intake and Output 05/14/20 05/15/20 19:00 07:00 Intake Total 1878.4159 ml Output Total 885 ml Balance 993.4159 ml Intake Oral 0 ml IV Total 1878.4159 ml Output Urine Total 885 ml Laboratory Tests Test 05/14/20 19:20 05/14/20 21:00 05/14/20 21:30 05/15/20 04:00 White Blood Count 12.4 K/UL (4.8-10.8) H 13.4 K/UL (4.8-10.8) H Red Blood Count 4.46 M/UL (4.20-5.40) 4.46 M/UL (4.20-5.40) Hemoglobin 13.7 G/DL (12.0-16.0) 13.5 G/DL (12.0-16.0) Hematocrit 43.5 % (37.0-47.0) 43.0 % (37.0-47.0) Mean Corpuscular Volume 98 FL (80-99) 96 FL (80-99) Mean Corpuscular Hemoglobin 30.7 PG (27.0-31.0) 30.2 PG (27.0-31.0) Mean Corpuscular Hemoglobin Concent 31.4 G/DL (32.0-36.0) L 31.3 G/DL (32.0-36.0) L Red Cell Distribution Width 14.8 % (11.6-14.8) 13.8 % (11.6-14.8) Platelet Count 104 K/UL (150-450) L 92 K/UL (150-450) L Mean Platelet Volume 15.0 FL (6.5-10.1) H 14.6 FL (6.5-10.1) H Neutrophils (%) (Auto) 84.7 % (45.0-75.0) H % (45.0-75.0) Lymphocytes (%) (Auto) 9.4 % (20.0-45.0) L % (20.0-45.0) Monocytes (%) (Auto) 4.6 % (1.0-10.0) % (1.0-10.0) Eosinophils (%) (Auto) 0.0 % (0.0-3.0) % (0.0-3.0) Basophils (%) (Auto) 1.4 % (0.0-2.0) % (0.0-2.0) Prothrombin Time 11.5 SEC (9.30-11.50) Prothromb Time International Ratio 1.0 (0.9-1.1) Activated Partial Thromboplast Time 22 SEC (23-33) L D-Dimer 2.05 mg/L FEU (0.00-0.49) H Sodium Level 174 MMOL/L (136-145) *H 158 MMOL/L (136-145) #H Potassium Level 4.3 MMOL/L (3.5-5.1) 3.7 MMOL/L (3.5-5.1) Chloride Level 130 MMOL/L (98-107) H 119 MMOL/L (98-107) H Carbon Dioxide Level 31 MMOL/L (21-32) 20 MMOL/L (21-32) L Anion Gap 14 mmol/L (5-15) 20 mmol/L (5-15) H Blood Urea Nitrogen 131 mg/dL (7-18) H 107 mg/dL (7-18) H Creatinine 2.7 MG/DL (0.55-1.30) H 2.3 MG/DL (0.55-1.30) H Estimat Glomerular Filtration Rate 17.4 mL/min (>60) 20.9 mL/min (>60) Glucose Level 462 MG/DL (74-106) H 751 MG/DL (74-106) *H Lactic Acid Level 5.00 mmol/L (0.4-2.0) H 3.00 mmol/L (0.66-2.22) H 5.90 mmol/L (0.4-2.0) H Calcium Level 9.5 MG/DL (8.5-10.1) 8.1 MG/DL (8.5-10.1) L Ferritin 912 NG/ML (8-388) H Total Bilirubin 0.5 MG/DL (0.2-1.0) 0.8 MG/DL (0.2-1.0) Aspartate Amino Transf (AST/SGOT) 51 U/L (15-37) H 46 U/L (15-37) H Alanine Aminotransferase (ALT/SGPT) 101 U/L (12-78) H 93 U/L (12-78) H Alkaline Phosphatase 25 U/L (46-116) L 30 U/L (46-116) L Lactate Dehydrogenase 543 U/L (81-234) H Total Creatine Kinase 65 U/L (26-308) Creatine Kinase MB < 0.5 NG/ML (0.0-3.6) Creatine Kinase MB Relative Index 0.7 Troponin I 1.258 ng/mL (0.000-0.056) 1.202 ng/mL (0.000-0.056) C-Reactive Protein, Quantitative < 0.4 mg/dL (0.00-0.90) Pro-B-Type Natriuretic Peptide 46226 pg/mL (0-125) H Total Protein 6.6 G/DL (6.4-8.2) 6.3 G/DL (6.4-8.2) L Albumin 2.5 G/DL (3.4-5.0) L 2.3 G/DL (3.4-5.0) L Globulin 4.1 g/dL Albumin/Globulin Ratio 0.6 (1.0-2.7) L Arterial Blood pH 7.385 (7.350-7.450) Arterial Blood Partial Pressure CO2 38.6 mmHg (35.0-45.0) Arterial Blood Partial Pressure O2 208.2 mmHg (75.0-100.0) H Arterial Blood HCO3 22.6 mmol/L (22.0-26.0) Arterial Blood Oxygen Saturation 98.6 % (95-100) Arterial Blood Base Excess -2.1 (-2-2) L Anthony Test Positive Urine Color Yellow Urine Appearance Turbid Urine pH 8 (4.5-8.0) Urine Specific [place] 1.010 (1.005-1.035) Urine Protein 4+ (NEGATIVE) H Urine Glucose (UA) Negative (NEGATIVE) Urine Ketones 1+ (NEGATIVE) H Urine Blood 5+ (NEGATIVE) H Urine Nitrite Negative (NEGATIVE) Urine Bilirubin Negative (NEGATIVE) Urine Urobilinogen 1 MG/DL (0.0-1.0) H Urine Leukocyte Esterase 3+ (NEGATIVE) H Urine RBC Tntc /HPF (0 - 2) H Urine WBC 15-20 /HPF (0 - 2) H Urine Squamous Epithelial Cells Moderate /LPF (NONE/OCC) H Urine Bacteria Many /HPF (NONE) H Differential Total Cells Counted 100 Neutrophils % (Manual) 60 % (45-75) Lymphocytes % (Manual) 11 % (20-45) L Monocytes % (Manual) 11 % (1-10) H Eosinophils % (Manual) 0 % (0-3) Basophils % (Manual) 0 % (0-2) Band Neutrophils 18 % (0-8) H Platelet Estimate Decreased L Platelet Morphology Normal Red Blood Cell Morphology Normal Hemoglobin A1c 7.8 % (4.3-6.0) H Direct Bilirubin 0.2 MG/DL (0.0-0.3) Ammonia 35 umol/L (11-32) H Test 05/15/20 08:19 05/15/20 08:30 05/15/20 09:00 05/15/20 09:55 Arterial Blood pH 7.405 (7.350-7.450) Arterial Blood Partial Pressure CO2 26.1 mmHg (35.0-45.0) L Arterial Blood Partial Pressure O2 109.4 mmHg (75.0-100.0) H Arterial Blood HCO3 16.0 mmol/L (22.0-26.0) *L Arterial Blood Oxygen Saturation 97.6 % (95-100) Arterial Blood Base Excess -7.0 (-2-2) L Anthoyn Test Positive Sodium Level 159 MMOL/L (136-145) H Potassium Level 3.5 MMOL/L (3.5-5.1) Chloride Level 119 MMOL/L (98-107) H Carbon Dioxide Level 20 MMOL/L (21-32) L Anion Gap 20 mmol/L (5-15) H Blood Urea Nitrogen 100 mg/dL (7-18) H Creatinine 2.5 MG/DL (0.55-1.30) H Estimat Glomerular Filtration Rate 19.0 mL/min (>60) Glucose Level 695 MG/DL (74-106) *H Hemoglobin A1c Pending Calcium Level 8.8 MG/DL (8.5-10.1) Phosphorus Level 4.0 MG/DL (2.5-4.9) Magnesium Level 2.7 MG/DL (1.8-2.4) H Acetone, Qualitative Negative Lactic Acid Level Pending Microbiology Date/Time Source Procedure Growth Status 05/14/20 19:40 Nasopharynx SARS-CoV-2 RdRp Gene Assay - Final Complete Height (Feet): 5 Height (Inches): 4.00 Weight (Pounds): 149 Medications Current Medications Medications (Trade) Dose Ordered Sig/Morgan Route PRN Reason Start Time Stop Time Status Last Admin Dose Admin Acetaminophen (Tylenol) 650 mg Q4H PRN ORAL Temp >100.5 05/15/20 10:45 06/14/20 10:44 UNV Cefepime HCl 1 gm/ Dextrose 55 ml @ 110 mls/hr EVERY 12 HOURS IVPB 05/14/20 21:00 05/21/20 20:59 05/15/20 09:16 Chlorhexidine Gluconate (Lilliam-Hex 2%) 1 applic DAILY@2000 TOPIC 05/15/20 20:00 08/13/20 19:59 Dexamethasone Sodium Phosphate (Decadron 10mg/ ml Inj) 6 mg DAILY IV 05/16/20 09:00 05/24/20 08:59 Dextrose (Dextrose 50%) 25 ml Q30M PRN IV Hypoglycemia 05/14/20 20:15 08/12/20 20:14 Dextrose (Dextrose 50%) 25 ml Q30M PRN IV Hypoglycemia 05/15/20 06:45 08/13/20 06:44 Dextrose (Dextrose 50%) 25 ml Q30M PRN IV HYPOGLYCEMIA 05/15/20 09:15 08/13/20 09:14 Dextrose (Dextrose 50%) 50 ml Q30M PRN IV Hypoglycemia 05/14/20 20:15 08/12/20 20:14 Dextrose (Dextrose 50%) 50 ml Q30M PRN IV Hypoglycemia 05/15/20 06:45 08/13/20 06:44 Dextrose (Dextrose 50%) 50 ml Q30M PRN IV HYPOGLYCEMIA 05/15/20 09:15 08/13/20 09:14 Enoxaparin Sodium (Lovenox) 30 mg Q24H SUBQ 05/14/20 21:00 08/12/20 20:59 Insulin Human (Reg)/Sodium Chloride 100 ml @ 0 mls/hr Q24H IVPB 05/15/20 09:30 08/13/20 09:29 05/15/20 10:13 Insulin Human Regular (NovoLIN R) 5 units PRN PRN IV BS 200-299 05/15/20 09:15 08/13/20 09:14 Insulin Human Regular (NovoLIN R) 10 units PRN PRN IV BS=>300 05/15/20 09:15 08/13/20 09:14 05/15/20 10:18 Miscellaneous Medication (Insulin Rate Change) 1 ea PRN PRN MISC Hyperglycemia 05/15/20 09:15 08/13/20 09:14 Morphine Sulfate (Morphine Sulfate) 2 mg EVERY 3 HOURS PRN IVP Moderate Pain (Pain Scale 4-6) 05/14/20 20:15 05/21/20 20:14 Morphine Sulfate (Morphine Sulfate) 4 mg EVERY 3 HOURS PRN IVP Severe Pain (Pain Scale 7-10) 05/14/20 20:15 05/21/20 20:14 Norepinephrine Bitartrate 16 mg/ Dextrose 516 ml @ 0 mls/hr Q24H IV 05/14/20 23:30 06/13/20 23:29 05/15/20 08:11 Pantoprazole (Protonix) 40 mg DAILY IV 05/15/20 09:00 06/14/20 08:59 05/15/20 08:27 Phenylephrine HCl 100 mg/Dextrose 250 ml @ 0 mls/hr Q24H IV 05/15/20 00:15 06/14/20 00:14 05/15/20 00:31 Sodium Chloride 1,000 ml @ 75 mls/hr Q33Q36S IV 05/15/20 06:45 06/14/20 06:44 05/15/20 07:53 Vancomycin HCl ([facility] pharmacy to dose) 1 ea DAILY PRN MISC VANCOMYCIN 05/14/20 21:00 06/13/20 20:59 Vasopressin 100 units/Sodium Chloride 100 ml @ 0 mls/hr Q24H IV 05/15/20 00:15 06/14/20 00:14 Objective Narrative GEN: Intuabted on Vent HEENT: NCAT, MMM, no scleral icterus Pulm: Coarse B/L, No W HEART: RRR, S1, S2 : Differred ABD: Soft, ND, PEG ( No e/ep) Neuro: Not following, Intubated SKIN: Exposed skin with no rash, Normal in color Assessment/Plan Assessment/Plan: 70 yo female with PMHx of Dementia, DM, CVA ( S/P PEG), COVID 19 infection and pressure ulcers. Septic Shock vs cardiogenic UTI, PNA, Other UTI UA (+) Probable left sided PNA CXR 05/14/20 showed Retrocardiac atelectasis/infiltrate with Pulmonary venous congestion. Hx of COVID 19 - Bacteria secondary infection? Asp PNA? COVID 19 tested Pos [facility] - about 3 week ago Resp Fail Intuabted on Vent Leukocytosis Fever SVT Hyperglycemia Dementia DM Hx CVA ( S/P PEG) pressure ulcers PLAN - Continue Cefepime #1 and Vancomcyin #1 - Reasonable to hold Azithmycin given cardiac issues and lack of clear evidence for PNA - On Decadron #1 - f/u Cultures - Monitor CBC and Temps Thank you for consulting [facility]. Will continue to follow along with you. Discussed with SARA. Erasto Romeo MD May 15, 2020 11:23
--- NOTE | 2020-05-15 12:14 | NUR ---
RD ASSESSMENT & RECOMMENDATIONS SEE CARE ACTIVITY FOR COMPLETE ASSESSMENT DAILY ESTIMATED NEEDS: Needs based on Critical care, 57.8kh abw 22-30 kcals/kg 0499-8423 total kcals 1.2-2 g protein/kg 69-116 g total protein 25-30 mL/kg 0625-4550 total fluid mLs NUTRITION DIAGNOSIS: Swallowing difficulty r/t h/o CVA, dysphagia as evidenced by pt is GT dep, now intubated w/ resp distress. CURRENT TF: NPO ENTERAL NUTRITION RECOMMENDATIONS: Glucerna 1.2 goal of 60ml/hr x24 hrs to provide 1440ml, 1728 kcal, 86g pro, 1159ml free H2O -> As medically able w/ improved BG, rec to start non oral feeds w/ hemodynamic stability. - Start at low rate 30ml/hr, advance as tolerated 10ml/hr q4- 6h hrs to goal. - Flush per MD. HOB over 30 degrees ADDITIONAL RECOMMENDATIONS: 1) With improved BG and hemodynamic stability initiate TF as able 2) Obtain an accurate wt: per MD pt w/ 'cachexia' EMR wt: 117.8kg vs am wts: 67.6kg 3) Wound photos, rec WC eval. NPO at this time
[2020-05-15 13:05] LABS: ANION GAP 21 mmol/L (5-15); BLOOD UREA NITROGEN 94 mg/dL (7-18); CALCIUM 8.7 MG/DL (8.5-10.1); CARBON DIOXIDE 20 MMOL/L (21-32); CHLORIDE 118 MMOL/L (98-107); CREATININE 2.2 MG/DL (0.55-1.30); SODIUM 158 MMOL/L (136-145)
--- NOTE | 2020-05-15 14:15 | Consultation ---
DATE OF CONSULTATION: 05/15/2020 PULMONARY/ICU CONSULTATION HISTORY OF PRESENT ILLNESS: This is a 70-year-old senior care resident with history of previous CVA, chronic dysphagia status post PEG, diabetes mellitus, chronic oxygen usage, blindness, hypertension who was found to be COVID-19 positive. She was sent into the emergency room with tachycardia, hypotension. The patient was hypoxic. She was markedly hypotensive. The patient required cardioversion x3 due to rapid AFib and was also intubated. A right IJ TLC was also placed by the ER physician. She was and received dextrose water; however, this morning the glucose is noted to be over 600. The patient is currently on two pressors and her FiO2 is now 70%. PAST MEDICAL HISTORY: Notable for schizophrenia, depression, combined systolic and diastolic heart failure, history of previous decubiti, diabetes mellitus, anemia, legally blind, hypertensive, CKD. ALLERGIES: Listed to Depakote and penicillin. PAST SURGICAL HISTORY: Chronic G-tube. MEDICATIONS: Outside included BuSpar. Current medications include insulin drip, cefepime, Lovenox, morphine, Protonix, phenylephrine, vasopressin. SOCIAL HISTORY: retirement resident. PHYSICAL EXAMINATION: GENERAL: Reveals a elderly female, intubated. HEENT: Otherwise unremarkable. VITAL SIGNS: Blood pressure at this time is 105/70, heart rate 110, respirations are 20, FiO2 currently 60% AC mode. CHEST: Decreased breath sounds bilaterally with normal heart sounds. ABDOMEN: Soft. There is no edema. G-tube is noted. LABORATORY AND DIAGNOSTIC DATA: X-ray chest shows retrocardiac bibasilar infiltrates and mild pulmonary vascular congestion. Lab testing shows positive rapid gene test for COVID-19. White count 15951, platelet count 92,000. ABG, pH 7.40, pCO2 26, pO2 109 this is on 50% FiO2 AC mode. Chemistry notable for glucose 695, creatinine 2.5. Hemoglobin A1c 7.8. Magnesium 2.7. Troponin 1.2. Coags show D-dimer of 2.0. Urinalysis shows multiple rbc's. IMPRESSION: 1. Acute respiratory failure. 2. Diabetes mellitus with hyperglycemia. 3. Septic shock. 4. Chronic G-tube. 5. Decubitus. 6. History of CHF. DISCUSSION: The patient is critically ill. She will be started on insulin drip. IV fluids to be given for with hypotonic solutions. Broad-spectrum antibiotics. Pressors x2. Continue AC mode till stable. DVT and GI prophylaxis. Respiratory precautions due to COVID-[address] Wade. We will follow carefully. Jaskaran Enriquez M.D. DR: Jr JOB#: [id number] CC:
--- NOTE | 2020-05-15 14:33 | NUR ---
HUMAN RESOURCE INTERNSUPERVISOR WRAPPING ROOM 70 YO FEMALE BIBA FROM [facility] TO ER CC SOB,LOW BP, LOW O2 SAT SI: RESP FAILURE ETT/VENT SUPPORT,SEPSIS, HYPERNATREMIA T. 104.0 HR 160 RR 30 B/P 60/80 WBC 12.4 NA174 BUN 131 CR 2.7 LACTID ACID 5.0 TROP 1.25 BNP 2157 CXR= Retrocardiac atelectasis/infiltrate. Pulmonary venous congestion. IS: NORMAL SALINE IV LEVOPHED GTT ADMITTED TO ICU @ 2230 ICU STATUS DCP PENDING HOSPITAL STAY
--- NOTE | 2020-05-15 15:42 | NUR ---
NURSE NOTES: Spoke with Dr. Shelley regarding patient's blood sugar and insulin drip. Okay to proceed to algorithm 2 as per protocol.
[2020-05-15 17:01] LABS: ANION GAP 18 mmol/L (5-15); BLOOD UREA NITROGEN 97 mg/dL (7-18); CALCIUM 9.3 MG/DL (8.5-10.1); CARBON DIOXIDE 22 MMOL/L (21-32); CHLORIDE 118 MMOL/L (98-107); CREATININE 2.1 MG/DL (0.55-1.30); SODIUM 158 MMOL/L (136-145)
--- NOTE | 2020-05-15 18:30 | Consultation ---
DATE OF CONSULTATION: 05/15/2020 ENDOCRINOLOGY CONSULTATION CONSULTING PHYSICIAN: Chau Shelley MD REFERRING PHYSICIAN: Jessica Wade MD REASON FOR CONSULTATION: Diabetes management. HISTORY OF PRESENT ILLNESS: The patient is a 70-year-old female with history of CVA and dysphagia status post PEG placement for feeding as well as cachexia, type 2 diabetes, pressure ulcer, home oxygen dependent, and hypothyroid with legal blindness, who is a resident of the [facility]. Due to COVID positive testing at her long term facility, the patient presented to the hospital with rapid heart rate and hypotension. She was on a non-rebreather and admitted to the ICU. Glucose was over 600 with an open gap lactic acidosis. Lactic acid is positive. I was called to manage diabetes. The patient was given D5W overnight due to hypernatremia. Sodium dropped from 170 to 158. Currently on vent. PAST MEDICAL HISTORY: 1. Type 2 diabetes. 2. CVA with dysphagia. 3. PEG placement. 4. Cachexia. 5. Type 2 diabetes. 6. Hypothyroidism. 7. Legal blindness. 8. Hypertension. PAST SURGICAL HISTORY: PEG placement. REVIEW OF SYSTEMS: Unobtainable. MEDICATIONS: Reviewed and reconciled. SOCIAL HISTORY: Lives at a long term facility. FAMILY HISTORY: Noncontributory. ALLERGIES TO MEDICATIONS: Divalproex and penicillin. LABORATORY AND DIAGNOSTIC DATA: WBC 13, hemoglobin 13, hematocrit 43, platelet of 92,000. Sodium 159, potassium 3.5, chloride 119, bicarb 20, BUN 20, creatinine 2.5, and glucose of 695. A1c of 7.8. Lactic acid of 5.9. PHYSICAL EXAMINATION: GENERAL: The patient is intubated. VITAL SIGNS: Blood pressure is 90/61, heart rate 101, temperature of 101. Rest of the exam was deferred due to COVID-19 positive. IMPRESSION: 1. COVID-19 positive. 2. Respiratory failure. 3. Diabetes, out of control. 4. Severe hyperglycemia with gap acidosis, rule out DKA. PLAN: 1. The patient to be treated with IV insulin, algorithm 2. Glucose monitoring every hour. Follow electrolytes. Once the gap closes, convert to subcu insulin. 2. Electrolytes to be followed closely and corrected. 3. I will follow her closely during hospital stay. Thank you, Dr. Wade, for the courtesy of this consultation. Chau Shelley M.D. DR: Eloise JOB#: [id number] CC: NORBERT
--- NOTE | 2020-05-15 19:00 | NUR ---
Patient observed reaching up and touching ETT tube with LT hand. Restraint placed on that hand.
--- NOTE | 2020-05-15 19:24 | NUR ---
NURSE NOTES: Received report from SARA Castillo. Pt is resting on the bed and confused and agitated.Pt has ETT and orally intubated and Vent dependent and setting with AC: 12, T: 500, P: 5, FiO2 60% and SaO2 100% noted. Pt has G-tube and on NPO. Pt has Arauz cath and patent and drainage well. Pt has rt. IJ TLC and dressing is clean and dry. on running with Levophed drip @ 30mcg/min, phenylephrine @ 100mcg/min and 1/2NS @ 75cc/hr. Noted K level is 3.0 today. Previous nurse notified to Dr. Wade and new order received. on teletypesetter monitor with SR. Dressing is clean and dry on wound area. Pt trying to touch ETT by Lt. hand. Given verbal cueing but didn't understand. Get order and applied Lt. wrist soft restraint and checked comfort and circulation. Placed fall precaution. Proper isolation for COVID -19. Will continue to care plan.
--- NOTE | 2020-05-15 20:00 | NUR ---
NURSE NOTES: Noted BP: 141/89mmHg. Decrease phenylephrine drip @ 80mcg/min. Will continue to monitor any change of condition.
[2020-05-15] MEDS: Dyna-Hex 2% Top Sol 2oz TOPIC SCH (20:10)
--- NOTE | 2020-05-15 20:28 | NUR ---
NURSE HAND-OFF REPORT: Latest Vital Signs: Temperature 99.9 , Pulse 95 , B/P 145 /87 , Respiratory Rate 13 , O2 SAT 100 , Mechanical Ventilator, O2 Flow Rate 15.0 . Vital Sign Comment: STABLE EKG Rhythm: Sinus Rhythm Rhythm change?: N MD Notified?: - MD Response: Latest Garza Fall Score: 50 Fall Risk: High Risk Safety Measures: Call light Within Reach, Bed Alarm Zone 1, Side Rails Side Rails x2, Bed position Low and Locked. Fall Precautions: Yellow Gown Report given to Jeffery RUIZ. Patient stable. Plan of care endorsed.
[2020-05-15] MEDS: Enoxaparin 30mg Inj SUBQ SCH (21:00)
[2020-05-15] MEDS: NovoLOG Insulin Flexpen SUBQ SCH (21:00)
--- NOTE | 2020-05-15 22:00 | NUR ---
NURSE NOTES: Pt is resting on the bed and no sign of acute distress noted. Noted BP: 110/71mmHg and HR: 103's. on running with phenylephrine drip @ 40mcg/min and Levophed drip @ 30mcg/min. Suction and oral care was done. and change position. Will continue to monitor any change of condition.
[2020-05-15 23:10] LABS: ANION GAP 12 mmol/L (5-15); BLOOD UREA NITROGEN 93 mg/dL (7-18); CALCIUM 9.7 MG/DL (8.5-10.1); CARBON DIOXIDE 26 MMOL/L (21-32); CHLORIDE 117 MMOL/L (98-107); POTASSIUM 3.7 MMOL/L (3.5-5.1); SODIUM 155 MMOL/L (136-145)
[2020-05-16] VITALS (63 sets, daily range): BP systolic 68–148; BP diastolic 42–80
[2020-05-16] MEDS: Vasopressin 100 UNITS in NS 95 ML IV SCH (00:15)
--- NOTE | 2020-05-16 00:35 | NUR ---
NURSE NOTES: Pt is resting on the bed. SaO2 100% with current Vent setting. Noted BP: 114/72mmHg. Decrease phenylephrine @ 20mcg/min. Noted BT: 101F by axillary. Given tylenol prn med as ordered and keep cooling measure. Chanted position. Provide oral care and suction. Placed fall precaution. Will continue to monitor any change of condition.
[2020-05-16] MEDS: NovoLOG Insulin Flexpen SUBQ SCH ×6 (01:00→21:28)
--- NOTE | 2020-05-16 02:00 | NUR ---
NURSE NOTES: Noted BP: 141/89mmHg. Decrease phenylephrine drip @ 10mcg/min. Will continue to monitor any change of condition. turn and reposition. Given oral care and suction. Will continue to monitor any change of condition. Addendum: 05/16/20 at 0808 by WYATT RALPH RN RN charting error : change to BP: 11/70mmHg from 141/89mmHg
--- NOTE | 2020-05-16 03:00 | NUR ---
NURSE NOTES: Noted BP : 109/70mmHg. HR: 109's. Held phenylepirin drip at this time and on running with Levophed drip @ 30mcg/min. Will continue to monitor any change of condition.
--- NOTE | 2020-05-16 04:00 | NUR ---
NURSE NOTES: Morning care was done. Cleaned Pt and applied lotion and cream. changed wound dressing G-tube site dressing. Suction and oral care was done. Pt has Arauz and noted good urine output. Will continue to monitor any change of condition.
--- NOTE | 2020-05-16 05:30 | NUR ---
NURSE NOTES: Pt is resting on the bed. SaO2 100% with current Vent setting. on Levophed drip @ 28mcg/min. Noted BT: 100.8F by axillary. Given tylenol prn med as ordered and keep cooling measure. EKG was taken. BS checked 145mg/dl. will continue to monitor any change of condition.
[2020-05-16 06:05] LABS: HEMATOCRIT 45.1 % (37.0-47.0); HEMOGLOBIN 14.2 G/DL (12.0-16.0); MEAN CORPUSCULAR VOLUME 94 FL (80-99); PLATELET COUNT 80 K/UL (150-450); RED BLOOD COUNT 4.79 M/UL (4.20-5.40); RED CELL DISTRIBUTION WIDTH 13.5 % (11.6-14.8); WHITE BLOOD COUNT 20.8 K/UL (4.8-10.8)
[2020-05-16 06:31] LABS: ALANINE AMINOTRANSFERASE 94 U/L (12-78); ALBUMIN 2.5 G/DL (3.4-5.0); ALBUMIN/GLOBULIN RATIO 0.6 (1.0-2.7); ALKALINE PHOSPHATASE 32 U/L (46-116); ANION GAP 15 mmol/L (5-15); ASPARTATE AMINO TRANSFERASE 89 U/L (15-37); BLOOD UREA NITROGEN 91 mg/dL (7-18); CALCIUM 9.7 MG/DL (8.5-10.1); CARBON DIOXIDE 24 MMOL/L (21-32); CHLORIDE 116 MMOL/L (98-107); CREATININE 1.9 MG/DL (0.55-1.30); POTASSIUM 3.5 MMOL/L (3.5-5.1); SODIUM 155 MMOL/L (136-145)
[2020-05-16 06:39] LABS: LACTATE DEHYDROGENASE 611 U/L (81-234)
--- NOTE | 2020-05-16 07:10 | NUR ---
NURSE HAND-OFF REPORT: Latest Vital Signs: Temperature 100.2 , Pulse 110 , B/P 100 /73 , Respiratory Rate 20 , O2 SAT 100 , Mechanical Ventilator, O2 Flow Rate 15.0 . EKG Rhythm: Sinus Tachycardia Rhythm change?: N Latest Garza Fall Score: 50 Fall Risk: High Risk Safety Measures: Call light Within Reach, Bed Alarm Zone 1, Side Rails Side Rails x2, Bed position Low and Locked. Fall Precautions: Yellow Gown Report given to SARA Tracey. Pt is resting on the bed and on running with Levophed drip @ 28mcg/min. rechecked BS: 156mg/dl.
--- NOTE | 2020-05-16 07:15 | NUR ---
NURSE NOTES: Dr. Morillo notified of Troponin. No new orders.
--- NOTE | 2020-05-16 07:30 | NUR ---
NURSE NOTES: Patient received from Jeffery RUIZ. Patient stable at this time. VSS. RR even and unlabored on ETT 7.5 lip line 23cm. Vent settings AC 12 500mL 60% P5. Breath sounds diminished. Cardiac sounds benign. Appears to be NST on cardiac exercise physiologist. Patient is opening eyes does not track but responds to light pain. Pupils do not react to light consistent with hx of blindness. On q4hr accucheck. Arauz draining well to gravity. RT IJ patent and intact with Levo running at 28mcg and Fluids infusing at 75mL/hr. Restraint applied to LT wrist with good ROM, circulation and sensation. Patient again observed trying to reach up for ETT. Will continue with restraints as ordered. Side rails up x3, call light within reach, bed low and locked. Will continue to monitor.
[2020-05-16] MEDS ORDERED: Vancomycin 1.5gm/NS Premix IVPB ONE (08:00)
--- NOTE | 2020-05-16 08:02 | General Progress Note ---
Assessment/Plan Problem List: (1) COVID-19 ICD Codes: U07.1 - COVID-19 SNOMED: 559292143 (2) Elevated d-dimer ICD Codes: R79.89 - Other specified abnormal findings of blood chemistry SNOMED: 002999827 (3) Rapid atrial fibrillation ICD Codes: I48.91 - Unspecified atrial fibrillation SNOMED: 122993067 (4) Sepsis ICD Codes: A41.9 - Sepsis, unspecified organism SNOMED: 98399858 (5) Respiratory failure ICD Codes: J96.90 - Respiratory failure, unspecified, unspecified whether with hypoxia or hypercapnia SNOMED: 428743822 (6) Renal failure ICD Codes: N19 - Unspecified kidney failure SNOMED: 31904700 (7) Hypernatremia ICD Codes: E87.0 - Hyperosmolality and hypernatremia SNOMED: 228911715 (8) T2DM (type 2 diabetes mellitus) ICD Codes: E11.9 - Type 2 diabetes mellitus without complications SNOMED: 95379551 Status: unchanged Assessment/Plan: no need to resume insulin gtt continue Novolog sliding scale every 4 hours hypoglycemia protocol in order Subjective ROS Limited/Unobtainable: Yes Allergies: Coded Allergies: DIVALPROEX SODIUM (Verified Allergy, Unknown, 05/14/20) PENICILLINS (Verified Allergy, Unknown, 05/14/20) Subjective events noted and interval notes reviewed remained intubated in ICU on pressors - she is febrile I stopped insulin gtt yesterday evening and started on Novolog sub Q coverage every 4 hours glucose values are reasonably controlled Item Value Date Time Bedside Blood Glucose 145 mg/dl H 05/16/20 0516 Bedside Blood Glucose 133 mg/dl H 05/16/20 0100 Bedside Blood Glucose 96 mg/dl 05/15/20 2100 Bedside Blood Glucose 117 mg/dl 05/15/20 1734 Bedside Blood Glucose 364 mg/dl H 05/15/20 1329 Bedside Blood Glucose Critically High Result 05/15/20 1020 Objective Last 24 Hour Vital Signs Date Time Temp Pulse Resp B/P (MAP) Pulse Ox O2 Delivery O2 Flow Rate FiO2 05/16/20 07:15 110 20 100/73 (82) 100 05/16/20 07:00 107 21 104/65 (78) 100 05/16/20 06:45 107 20 99/62 (74) 100 05/16/20 06:30 110 20 05/16/20 06:30 110 20 99/64 (76) 100 05/16/20 06:15 109 21 100/64 (76) 100 05/16/20 06:00 106 20 100/63 (75) 100 05/16/20 05:52 100.2 05/16/20 05:45 107 20 107/65 (79) 100 05/16/20 05:30 108 20 107/65 (79) 100 05/16/20 05:15 107 21 105/73 (84) 100 05/16/20 05:00 105/69 05/16/20 05:00 100.8 107 20 105/69 (81) 100 05/16/20 04:45 106 19 99/63 (75) 100 05/16/20 04:30 106 19 101/64 (76) 100 05/16/20 04:15 106 18 97/58 (71) 100 05/16/20 04:00 Mechanical Ventilator 05/16/20 04:00 104 05/16/20 04:00 104/64 05/16/20 04:00 60 05/16/20 04:00 100.2 106 19 104/64 (77) 100 05/16/20 03:45 108 20 97/68 (78) 100 05/16/20 03:30 108 20 110/72 (85) 100 05/16/20 03:30 110/72 05/16/20 03:12 105/67 05/16/20 03:00 109/70 05/16/20 03:00 109 21 101/61 (74) 100 05/16/20 02:58 109 20 60 05/16/20 02:30 107 19 109/70 (83) 99 05/16/20 02:00 107 23 111/70 (84) 99 05/16/20 02:00 111/70 05/16/20 01:30 107 17 106/69 (81) 100 05/16/20 01:00 105 19 109/70 (83) 100 05/16/20 01:00 109/70 05/16/20 00:45 106 18 105/67 (80) 100 05/16/20 00:30 104 20 114/61 (78) 99 05/16/20 00:15 105 19 116/73 (87) 99 05/16/20 00:00 Mechanical Ventilator 05/16/20 00:00 60 05/16/20 00:00 114/72 05/16/20 00:00 101.0 105 20 114/72 (86) 99 05/16/20 00:00 104 05/15/20 23:45 104 16 109/74 (86) 99 05/15/20 23:30 104 18 117/74 (88) 100 05/15/20 23:30 105 21 60 05/15/20 23:15 104 19 118/73 (88) 100 05/15/20 23:00 117/74 05/15/20 23:00 102 16 117/74 (88) 100 05/15/20 22:45 105 19 115/74 (88) 100 05/15/20 22:30 103 20 117/71 (86) 99 05/15/20 22:15 103 20 108/72 (84) 99 05/15/20 22:00 110/71 05/15/20 22:00 103 19 110/71 (84) 99 05/15/20 21:45 104 18 111/72 (85) 100 05/15/20 21:30 104 16 105/69 (81) 99 05/15/20 21:15 103 12 111/77 (88) 100 05/15/20 21:00 124/78 05/15/20 21:00 100 12 124/78 (93) 99 05/15/20 20:45 100 13 130/81 (97) 100 05/15/20 20:30 99 13 138/85 (102) 100 05/15/20 20:15 95 12 137/86 (103) 100 05/15/20 20:00 60 05/15/20 20:00 99 05/15/20 20:00 99.8 96 14 141/89 (106) 100 05/15/20 20:00 141/89 05/15/20 20:00 Mechanical Ventilator 05/15/20 19:30 95 13 60 05/15/20 19:30 95 22 147/85 (105) 100 05/15/20 19:00 94 23 145/87 (106) 100 05/15/20 19:00 145/87 05/15/20 18:30 95 22 146/85 (105) 100 05/15/20 18:17 147/86 05/15/20 18:00 99.5 102 20 150/90 (110) 100 05/15/20 17:30 96 24 145/96 (112) 100 05/15/20 17:00 92 23 145/87 (106) 100 05/15/20 17:00 145/87 05/15/20 16:30 99 26 131/76 (94) 100 05/15/20 16:00 70 05/15/20 16:00 131/76 05/15/20 16:00 Mechanical Ventilator 05/15/20 16:00 101.0 99 29 131/76 (94) 100 05/15/20 15:30 99 29 122/69 (86) 100 05/15/20 15:26 99 05/15/20 15:22 70 05/15/20 15:08 106 31 70 05/15/20 15:00 102 30 122/81 (95) 100 05/15/20 15:00 122/81 05/15/20 14:30 105 28 121/84 (96) 100 05/15/20 14:00 127/82 05/15/20 14:00 106 28 127/82 (97) 100 05/15/20 13:30 104 28 110/77 (88) 100 05/15/20 13:28 107 88/64 05/15/20 13:00 104 28 86/59 (68) 100 05/15/20 13:00 86/59 05/15/20 12:30 106 28 110/74 (86) 100 05/15/20 12:00 113/78 05/15/20 12:00 108 05/15/20 12:00 100.9 107 28 113/78 (90) 100 05/15/20 11:32 Mechanical Ventilator 05/15/20 11:30 108 28 114/77 (89) 100 05/15/20 11:07 108 25 70 05/15/20 11:00 101.7 112 29 102/71 (81) 100 05/15/20 11:00 102/71 05/15/20 10:30 116 29 95/65 (75) 100 05/15/20 10:00 109 29 107/75 (86) 100 05/15/20 10:00 107/75 05/15/20 09:30 109 28 101/75 (84) 100 05/15/20 09:00 101.7 109 25 117/77 (90) 100 05/15/20 09:00 117/77 05/15/20 08:30 103 26 114/80 (91) 100 05/15/20 08:15 107 26 99/69 (79) 84 05/15/20 08:11 105/71 05/15/20 08:00 70 05/15/20 08:00 Mechanical Ventilator 05/15/20 08:00 105/71 05/15/20 08:00 104 05/15/20 08:00 107 25 105/71 (82) 100 Intake and Output 05/15/20 05/16/20 19:00 07:00 Intake Total 1907.7170 ml 1549.345 ml Output Total 750 ml 1500 ml Balance 1157.7170 ml 49.345 ml IV Total 1907.7170 ml 1549.345 ml Output Urine Total 750 ml 1500 ml Laboratory Tests 05/15/20 08:19: Arterial Blood pH 7.405, Arterial Blood Partial Pressure CO2 26.1L, Arterial Blood Partial Pressure O2 109.4H, Arterial Blood HCO3 16.0*L, Arterial Blood Oxygen Saturation 97.6, Arterial Blood Base Excess -7.0L, Anthony Test Positive 05/15/20 08:30: Sodium Level 159H, Potassium Level 3.5, Chloride Level 119H, Carbon Dioxide Level 20L, Anion Gap 20H, Blood Urea Nitrogen 100H, Creatinine 2.5H, Estimat Glomerular Filtration Rate 19.0, Glucose Level 695*H, Hemoglobin A1c > 16.0H, Calcium Level 8.8, Phosphorus Level 4.0, Magnesium Level 2.7H 05/15/20 09:00: Acetone, Qualitative Negative 05/15/20 09:55: Lactic Acid Level 8.10H 05/15/20 12:25: Sodium Level 158H, Potassium Level 3.0L, Chloride Level 118H, Carbon Dioxide Level 20L, Anion Gap 21H, Blood Urea Nitrogen 94H, Creatinine 2.2H, Estimat Glomerular Filtration Rate 22.0, Glucose Level 397#H, Calcium Level 8.7 05/15/20 16:00: Sodium Level 158H, Potassium Level 3.0L, Chloride Level 118H, Carbon Dioxide Level 22, Anion Gap 18H, Blood Urea Nitrogen 97H, Creatinine 2.1H, Estimat Glomerular Filtration Rate 23.2, Glucose Level 136#H, Calcium Level 9.3, Lactic Acid Level 4.90H, Troponin I 1.901H 05/15/20 22:38: Sodium Level 155H, Potassium Level 3.7, Chloride Level 117H, Carbon Dioxide Level 26, Anion Gap 12, Blood Urea Nitrogen 93H, Creatinine 2.0H, Estimat Glomerular Filtration Rate 24.6, Glucose Level 120H, Calcium Level 9.7, Lactic Acid Level 3.00H 05/16/20 05:50: Sodium Level 155H, Potassium Level 3.5, Chloride Level 116H, Carbon Dioxide Level 24, Anion Gap 15, Blood Urea Nitrogen 91H, Creatinine 1.9H, Estimat Glomerular Filtration Rate 26.0, Glucose Level 62L, Calcium Level 9.7, Troponin I 3.410H, White Blood Count 20.8#H, Red Blood Count 4.79, Hemoglobin 14.2, Hematocrit 45.1, Mean Corpuscular Volume 94, Mean Corpuscular Hemoglobin 29.6, Mean Corpuscular Hemoglobin Concent 31.5L, Red Cell Distribution Width 13.5, Platelet Count 80L, Mean Platelet Volume 13.9H, Neutrophils (%) (Auto) , Lymphocytes (%) (Auto) , Monocytes (%) (Auto) , Eosinophils (%) (Auto) , Basophils (%) (Auto) , Neutrophils % (Manual) [Pending], Lymphocytes % (Manual) [Pending], Platelet Estimate [Pending], Platelet Morphology [Pending], Total Bilirubin 1.0, Aspartate Amino Transf (AST/SGOT) 89H, Alanine Aminotransferase ( ALT/SGPT) 94H, Alkaline Phosphatase 32L, Lactate Dehydrogenase 611H, Pro-B-Type Natriuretic Peptide 06977A, Total Protein 6.9, Albumin 2.5L, Globulin 4.4, Albumin/Globulin Ratio 0.6L, Random Vancomycin Level 14.5 05/16/20 07:53: Lactic Acid Level [Pending] Height (Feet): 5 Height (Inches): 4.00 Weight (Pounds): 149 Objective Current Medications Medications (Trade) Dose Ordered Sig/Morgan Route PRN Reason Start Time Stop Time Status Last Admin Dose Admin Acetaminophen (Tylenol) 650 mg Q4H PRN GT Temp >100.5 05/16/20 06:15 06/15/20 06:14 Cefepime HCl 1 gm/ Dextrose 55 ml @ 110 mls/hr EVERY 12 HOURS IVPB 05/14/20 21:00 05/21/20 20:59 05/15/20 20:58 Chlorhexidine Gluconate (Lilliam-Hex 2%) 1 applic DAILY@2000 TOPIC 05/15/20 20:00 08/13/20 19:59 05/15/20 20:10 Dexamethasone Sodium Phosphate (Decadron 10mg/ ml Inj) 6 mg DAILY IV 05/16/20 09:00 05/24/20 08:59 Dextrose (Dextrose 50%) 25 ml Q30M PRN IV Hypoglycemia 05/15/20 06:45 08/13/20 06:44 Dextrose (Dextrose 50%) 25 ml Q30M PRN IV HYPOGLYCEMIA 05/15/20 09:15 08/13/20 09:14 Dextrose (Dextrose 50%) 25 ml Q30M PRN IV Hypoglycemia 05/15/20 18:00 08/13/20 17:59 Dextrose (Dextrose 50%) 50 ml Q30M PRN IV Hypoglycemia 05/14/20 20:15 08/12/20 20:14 Dextrose (Dextrose 50%) 50 ml Q30M PRN IV Hypoglycemia 05/15/20 06:45 08/13/20 06:44 Dextrose (Dextrose 50%) 50 ml Q30M PRN IV HYPOGLYCEMIA 05/15/20 09:15 08/13/20 09:14 Dextrose (Dextrose 50%) 50 ml Q30M PRN IV Hypoglycemia 05/15/20 18:00 08/13/20 17:59 Enoxaparin Sodium (Lovenox) 30 mg Q24H SUBQ 05/14/20 21:00 08/12/20 20:59 Insulin Aspart (NovoLOG) Q4HR SUBQ 05/15/20 21:00 08/13/20 20:59 05/16/20 05:16 Insulin Human Regular (NovoLIN R) 5 units PRN PRN IV BS 200-299 05/15/20 09:15 08/13/20 09:14 05/15/20 15:09 Insulin Human Regular (NovoLIN R) 10 units PRN PRN IV BS=>300 05/15/20 09:15 08/13/20 09:14 05/15/20 13:29 Miscellaneous Medication (Insulin Rate Change) 1 ea PRN PRN MISC Hyperglycemia 05/15/20 09:15 08/13/20 09:14 05/15/20 17:34 Morphine Sulfate (Morphine Sulfate) 2 mg EVERY 3 HOURS PRN IVP Moderate Pain (Pain Scale 4-6) 05/14/20 20:15 05/21/20 20:14 Morphine Sulfate (Morphine Sulfate) 4 mg EVERY 3 HOURS PRN IVP Severe Pain (Pain Scale 7-10) 05/14/20 20:15 05/21/20 20:14 Norepinephrine Bitartrate 16 mg/ Dextrose 516 ml @ 0 mls/hr Q24H IV 05/14/20 23:30 06/13/20 23:29 05/16/20 03:12 Pantoprazole (Protonix) 40 mg DAILY IV 05/15/20 09:00 06/14/20 08:59 05/15/20 08:27 Phenylephrine HCl 100 mg/Dextrose 250 ml @ 0 mls/hr Q24H IV 05/15/20 00:15 06/14/20 00:14 05/15/20 13:28 Sodium Chloride 1,000 ml @ 75 mls/hr [id number] IV 05/15/20 06:45 06/14/20 06:44 05/15/20 20:10 Vancomycin HCl ([facility] pharmacy to dose) 1 ea DAILY PRN MISC VANCOMYCIN 05/14/20 21:00 06/13/20 20:59 Vancomycin/Sodium Chloride 275 ml @ 137.5 mls/ hr ONCE ONCE IVPB 05/16/20 08:00 05/16/20 09:59 Vasopressin 100 units/Sodium Chloride 100 ml @ 0 mls/hr Q24H IV 05/15/20 00:15 06/14/20 00:14 Chau Shelley MD May 16, 2020 08:02
--- NOTE | 2020-05-16 08:37 | Diagnostic Imaging Report ---
EXAM: XR Chest, 1 View CLINICAL HISTORY: DYSPNEA TECHNIQUE: Frontal view of the chest. COMPARISON: Chest rating of May 14, 2020 FINDINGS/IMPRESSION: Endotracheal tube terminates 5.8 cm above the awa. Right IJ catheter terminates in the distal superior vena cava. EKG leads overlie the patient. Trace left pleural effusion. Retrocardiac density may represent atelectasis versus infiltrate. Correlate with lateral view. This is unchanged when compared to May 14, 2020. No pneumothorax. Cardiomegaly.
[2020-05-16] MEDS: dexAMETHasone 10mg/ml Inj IV SCH (08:46)
[2020-05-16] MEDS: Pantoprazole Inj IV SCH (08:46)
[2020-05-16] MEDS: Acetaminophen 650mg/20.3ml GT PRN (08:46)
[2020-05-16] MEDS: Cefepime 1gm in D5W 55ml IVPB SCH (09:11)
--- NOTE | 2020-05-16 10:30 | NUR ---
NURSE NOTES: Dr. Wade at bedside. Update given. Informed that patient has a sustained fever with highest of 102.4 and currently 102.0.
--- NOTE | 2020-05-16 10:42 | General Progress Note ---
Assessment/Plan Status: unchanged Assessment/Plan: 70-year-old female history of dementia, cachexia, dysphasia G-tube dependent feeding presents for evaluation of rapid heart rate and hypotension. # Septic shock Etiology COVID 19 vs UTI vs bacteremia Bcx and U cx 05/14 NGT Continue Vancomycin, Cefepime, per Dr. Romeo from [place]. Dexamethasone due to hypoxia # 2 Leukocytosis today most likely due to steroids # Acute respiratory failure Intubated ICU care appreciated Dr. Enriquez consulted Serial CXR is stable today and ventilator management per ICU-pulmonary FiO2 45 % today. wean as tolerated. # SVT vs A. Flutter s/p DC x 3 HR is controlled in the [address] Levophed/Neosyn Cardiology consultation Dr. Morillo requested and TTE requested. Troponin 3.4 and will need to consider underlying cardiac injury s/p DC and expected troponin elevation. # AG metabolic acidosis Ddx lactic acidosis Improving. # Hyperglycemia r/o DKA ABG and Ketones ordered Endocrine consult with Dr. Shelley IV insulin gtt stopped last night and in SQ insulin coverage now # Hypernatremia Na 155 Monitor BMP IVF to 1/2 NS lower rate 75 cc hr # COVID 19 Positive on admission. Original infection > 15 days ago, do not qualify for Revdisimir or plasma Added Dexamethasone # 2 Contact and droplet isolation # Dysphagia PEG Await improvement in hemodynamic prior to tube feeds # Dementia Baseline # FULL CODE SW follow up to reach out to DPOA and consider change in code status due to high morbidity and risk of inpatient mortality. > 55 min spent in coordination of care and consultation with physicians and RN. Subjective Date patient seen: May 16, 2020 Time patient seen: 10:00 ROS Limited/Unobtainable: Yes Allergies: Coded Allergies: DIVALPROEX SODIUM (Verified Allergy, Unknown, 05/14/20) PENICILLINS (Verified Allergy, Unknown, 05/14/20) All Systems: reviewed and negative except above Subjective Non verbal, intubated Objective Last 24 Hour Vital Signs Date Time Temp Pulse Resp B/P (MAP) Pulse Ox O2 Delivery O2 Flow Rate FiO2 05/16/20 09:20 102.4 05/16/20 07:15 110 20 100/73 (82) 100 05/16/20 07:13 109 20 45 05/16/20 07:00 107 21 104/65 (78) 100 05/16/20 06:45 107 20 99/62 (74) 100 05/16/20 06:30 110 20 05/16/20 06:30 110 20 99/64 (76) 100 05/16/20 06:15 109 21 100/64 (76) 100 05/16/20 06:00 106 20 100/63 (75) 100 05/16/20 05:52 100.2 05/16/20 05:45 107 20 107/65 (79) 100 05/16/20 05:30 108 20 107/65 (79) 100 05/16/20 05:15 107 21 105/73 (84) 100 05/16/20 05:00 105/69 05/16/20 05:00 100.8 107 20 105/69 (81) 100 05/16/20 04:45 106 19 99/63 (75) 100 05/16/20 04:30 106 19 101/64 (76) 100 05/16/20 04:15 106 18 97/58 (71) 100 05/16/20 04:00 Mechanical Ventilator 05/16/20 04:00 104 05/16/20 04:00 104/64 05/16/20 04:00 60 05/16/20 04:00 100.2 106 19 104/64 (77) 100 05/16/20 03:45 108 20 97/68 (78) 100 05/16/20 03:30 108 20 110/72 (85) 100 05/16/20 03:30 110/72 05/16/20 03:12 105/67 05/16/20 03:00 109/70 05/16/20 03:00 109 21 101/61 (74) 100 05/16/20 02:58 109 20 60 05/16/20 02:30 107 19 109/70 (83) 99 05/16/20 02:00 107 23 111/70 (84) 99 05/16/20 02:00 111/70 05/16/20 01:30 107 17 106/69 (81) 100 05/16/20 01:00 105 19 109/70 (83) 100 05/16/20 01:00 109/70 05/16/20 00:45 106 18 105/67 (80) 100 05/16/20 00:30 104 20 114/61 (78) 99 05/16/20 00:15 105 19 116/73 (87) 99 05/16/20 00:00 Mechanical Ventilator 05/16/20 00:00 60 05/16/20 00:00 114/72 05/16/20 00:00 101.0 105 20 114/72 (86) 99 05/16/20 00:00 104 05/15/20 23:45 104 16 109/74 (86) 99 05/15/20 23:30 104 18 117/74 (88) 100 05/15/20 23:30 105 21 60 05/15/20 23:15 104 19 118/73 (88) 100 05/15/20 23:00 117/74 05/15/20 23:00 102 16 117/74 (88) 100 05/15/20 22:45 105 19 115/74 (88) 100 05/15/20 22:30 103 20 117/71 (86) 99 05/15/20 22:15 103 20 108/72 (84) 99 05/15/20 22:00 110/71 05/15/20 22:00 103 19 110/71 (84) 99 05/15/20 21:45 104 18 111/72 (85) 100 05/15/20 21:30 104 16 105/69 (81) 99 05/15/20 21:15 103 12 111/77 (88) 100 05/15/20 21:00 124/78 05/15/20 21:00 100 12 124/78 (93) 99 05/15/20 20:45 100 13 130/81 (97) 100 05/15/20 20:30 99 13 138/85 (102) 100 05/15/20 20:15 95 12 137/86 (103) 100 05/15/20 20:00 60 05/15/20 20:00 99 05/15/20 20:00 99.8 96 14 141/89 (106) 100 05/15/20 20:00 141/89 05/15/20 20:00 Mechanical Ventilator 05/15/20 19:30 95 13 60 05/15/20 19:30 95 22 147/85 (105) 100 05/15/20 19:00 94 23 145/87 (106) 100 05/15/20 19:00 145/87 9/6/20 18:30 95 22 146/85 (105) 100 05/15/20 18:17 147/86 05/15/20 18:00 99.5 102 20 150/90 (110) 100 05/15/20 17:30 96 24 145/96 (112) 100 05/15/20 17:00 92 23 145/87 (106) 100 05/15/20 17:00 145/87 05/15/20 16:30 99 26 131/76 (94) 100 05/15/20 16:00 70 05/15/20 16:00 131/76 05/15/20 16:00 Mechanical Ventilator 05/15/20 16:00 101.0 99 29 131/76 (94) 100 05/15/20 15:30 99 29 122/69 (86) 100 05/15/20 15:26 99 05/15/20 15:22 70 05/15/20 15:08 106 31 70 05/15/20 15:00 102 30 122/81 (95) 100 05/15/20 15:00 122/81 05/15/20 14:30 105 28 121/84 (96) 100 05/15/20 14:00 127/82 05/15/20 14:00 106 28 127/82 (97) 100 05/15/20 13:30 104 28 110/77 (88) 100 05/15/20 13:28 107 88/64 05/15/20 13:00 104 28 86/59 (68) 100 05/15/20 13:00 86/59 05/15/20 12:30 106 28 110/74 (86) 100 05/15/20 12:00 113/78 05/15/20 12:00 108 05/15/20 12:00 100.9 107 28 113/78 (90) 100 05/15/20 11:32 Mechanical Ventilator 05/15/20 11:30 108 28 114/77 (89) 100 05/15/20 11:07 108 25 70 05/15/20 11:00 101.7 112 29 102/71 (81) 100 05/15/20 11:00 102/71 Intake and Output 05/15/20 05/16/20 19:00 07:00 Intake Total 1907.7170 ml 1549.345 ml Output Total 750 ml 1500 ml Balance 1157.7170 ml 49.345 ml IV Total 1907.7170 ml 1549.345 ml Output Urine Total 750 ml 1500 ml Laboratory Tests 05/15/20 12:25: Sodium Level 158H, Potassium Level 3.0L, Chloride Level 118H, Carbon Dioxide Level 20L, Anion Gap 21H, Blood Urea Nitrogen 94H, Creatinine 2.2H, Estimat Glomerular Filtration Rate 22.0, Glucose Level 397#H, Calcium Level 8.7 05/15/20 16:00: Sodium Level 158H, Potassium Level 3.0L, Chloride Level 118H, Carbon Dioxide Level 22, Anion Gap 18H, Blood Urea Nitrogen 97H, Creatinine 2.1H, Estimat Glomerular Filtration Rate 23.2, Glucose Level 136#H, Calcium Level 9.3, Lactic Acid Level 4.90H, Troponin I 1.901H 05/15/20 22:38: Sodium Level 155H, Potassium Level 3.7, Chloride Level 117H, Carbon Dioxide Level 26, Anion Gap 12, Blood Urea Nitrogen 93H, Creatinine 2.0H, Estimat Glomerular Filtration Rate 24.6, Glucose Level 120H, Calcium Level 9.7, Lactic Acid Level 3.00H 05/16/20 05:50: Sodium Level 155H, Potassium Level 3.5, Chloride Level 116H, Carbon Dioxide Level 24, Anion Gap 15, Blood Urea Nitrogen 91H, Creatinine 1.9H, Estimat Glomerular Filtration Rate 26.0, Glucose Level 62L, Calcium Level 9.7, Troponin I 3.410H, White Blood Count 20.8#H, Red Blood Count 4.79, Hemoglobin 14.2, Hematocrit 45.1, Mean Corpuscular Volume 94, Mean Corpuscular Hemoglobin 29.6, Mean Corpuscular Hemoglobin Concent 31.5L, Red Cell Distribution Width 13.5, Platelet Count 80L, Mean Platelet Volume 13.9H, Neutrophils (%) (Auto) , Lymphocytes (%) (Auto) , Monocytes (%) (Auto) , Eosinophils (%) (Auto) , Basophils (%) (Auto) , Differential Total Cells Counted 100, Neutrophils % ( Manual) 54, Lymphocytes % (Manual) 30, Monocytes % (Manual) 7, Eosinophils % ( Manual) 0, Basophils % (Manual) 0, Band Neutrophils 9H, Nucleated Red Blood Cells 1, Platelet Estimate DecreasedL, Platelet Morphology Normal, Red Blood Cell Morphology Normal, Total Bilirubin 1.0, Aspartate Amino Transf (AST/SGOT) 89H, Alanine Aminotransferase (ALT/SGPT) 94H, Alkaline Phosphatase 32L, Lactate Dehydrogenase 611H, Pro-B-Type Natriuretic Peptide 37844O, Total Protein 6.9, Albumin 2.5L, Globulin 4.4, Albumin/Globulin Ratio 0.6L, Random Vancomycin Level 14.5 05/16/20 07:53: Lactic Acid Level 1.90 05/16/20 08:01: Arterial Blood pH 7.520H, Arterial Blood Partial Pressure CO2 23.0*L, Arterial Blood Partial Pressure O2 162.3H, Arterial Blood HCO3 18.4L, Arterial Blood Oxygen Saturation 97.9, Arterial Blood Base Excess -2.8L, Anthony Test Positive Height (Feet): 5 Height (Inches): 4.00 Weight (Pounds): 149 General Appearance: moderate distress EENT: PERRL/EOMI Neck: non-tender Cardiovascular: normal rate Respiratory/Chest: decreased breath sounds Abdomen: non tender, other - PEG Extremities: normal range of motion Neurologic: unresponsive, other - sedated in the ventilator. Withdraws to pain. Jessica Wade MD May 16, 2020 10:42
--- NOTE | 2020-05-16 10:55 | NUR ---
Social Work This Sw followed up with patient, currently in the ICU who intubated, sedated at this time. Patient is a resident of [facility] ([phone]) and has a Public Guardian: Quinten Lucio ([phone]) who makes all the decisions and consents for patient. Pending progress at this time; SW to follow as needed.
--- NOTE | 2020-05-16 10:58 | Infectious Diseases Prog Note ---
Assessment/Plan 70 yo female with PMHx of Dementia, DM, CVA ( S/P PEG), COVID 19 infection and pressure ulcers. Septic Shock vs cardiogenic UTI, PNA, Other UTI UA (+) Probable left sided PNA CXR 05/14/20 showed Retrocardiac atelectasis/infiltrate with Pulmonary venous congestion. Hx of COVID 19 - Bacteria secondary infection? Asp PNA? COVID 19 tested Pos [facility] - about 3 week ago Resp Fail Intuabted on Vent Leukocytosis Fever SVT Hyperglycemia Dementia DM Hx CVA ( S/P PEG) pressure ulcers PLAN - Continue Cefepime #3 and Vancomcyin #3 if fever persistent will switch to mercedez - Reasonable to hold Azithmycin given cardiac issues and lack of clear evidence for PNA - On Decadron #3 - f/u Cultures - Monitor CBC and Temps Thank you for consulting [facility]. Will continue to follow along with you. Discussed with RN. Subjective Allergies: Coded Allergies: DIVALPROEX SODIUM (Verified Allergy, Unknown, 05/14/20) PENICILLINS (Verified Allergy, Unknown, 05/14/20) Continued fever WBCs increasing On vent Objective Last 24 Hour Vital Signs Date Time Temp Pulse Resp B/P (MAP) Pulse Ox O2 Delivery O2 Flow Rate FiO2 05/16/20 10:30 102.0 100 18 121/73 (89) 100 05/16/20 10:00 105 21 102/66 (78) 100 05/16/20 09:30 102.4 106 18 110/67 (81) 100 05/16/20 09:20 102.4 05/16/20 09:00 107 20 112/70 (84) 100 05/16/20 08:30 102.2 110 20 108/72 (84) 100 05/16/20 08:00 Mechanical Ventilator 05/16/20 08:00 60 05/16/20 08:00 108 05/16/20 08:00 107 19 108/66 (80) 100 05/16/20 07:30 110 21 101/71 (81) 100 05/16/20 07:15 110 20 100/73 (82) 100 05/16/20 07:13 109 20 45 05/16/20 07:00 107 21 104/65 (78) 100 05/16/20 06:45 107 20 99/62 (74) 100 05/16/20 06:30 110 20 05/16/20 06:30 110 20 99/64 (76) 100 05/16/20 06:15 109 21 100/64 (76) 100 05/16/20 06:00 106 20 100/63 (75) 100 05/16/20 05:52 100.2 05/16/20 05:45 107 20 107/65 (79) 100 05/16/20 05:30 108 20 107/65 (79) 100 05/16/20 05:15 107 21 105/73 (84) 100 05/16/20 05:00 105/69 05/16/20 05:00 100.8 107 20 105/69 (81) 100 05/16/20 04:45 106 19 99/63 (75) 100 05/16/20 04:30 106 19 101/64 (76) 100 05/16/20 04:15 106 18 97/58 (71) 100 05/16/20 04:00 Mechanical Ventilator 05/16/20 04:00 104 05/16/20 04:00 104/64 05/16/20 04:00 60 05/16/20 04:00 100.2 106 19 104/64 (77) 100 05/16/20 03:45 108 20 97/68 (78) 100 05/16/20 03:30 108 20 110/72 (85) 100 05/16/20 03:30 110/72 05/16/20 03:12 105/67 05/16/20 03:00 109/70 05/16/20 03:00 109 21 101/61 (74) 100 05/16/20 02:58 109 20 60 05/16/20 02:30 107 19 109/70 (83) 99 05/16/20 02:00 107 23 111/70 (84) 99 05/16/20 02:00 111/70 05/16/20 01:30 107 17 106/69 (81) 100 05/16/20 01:00 105 19 109/70 (83) 100 05/16/20 01:00 109/70 05/16/20 00:45 106 18 105/67 (80) 100 05/16/20 00:30 104 20 114/61 (78) 99 05/16/20 00:15 105 19 116/73 (87) 99 05/16/20 00:00 Mechanical Ventilator 05/16/20 00:00 60 05/16/20 00:00 114/72 05/16/20 00:00 101.0 105 20 114/72 (86) 99 05/16/20 00:00 104 05/15/20 23:45 104 16 109/74 (86) 99 05/15/20 23:30 104 18 117/74 (88) 100 05/15/20 23:30 105 21 60 05/15/20 23:15 104 19 118/73 (88) 100 05/15/20 23:00 117/74 05/15/20 23:00 102 16 117/74 (88) 100 05/15/20 22:45 105 19 115/74 (88) 100 05/15/20 22:30 103 20 117/71 (86) 99 05/15/20 22:15 103 20 108/72 (84) 99 05/15/20 22:00 110/71 05/15/20 22:00 103 19 110/71 (84) 99 05/15/20 21:45 104 18 111/72 (85) 100 05/15/20 21:30 104 16 105/69 (81) 99 05/15/20 21:15 103 12 111/77 (88) 100 05/15/20 21:00 124/78 05/15/20 21:00 100 12 124/78 (93) 99 05/15/20 20:45 100 13 130/81 (97) 100 05/15/20 20:30 99 13 138/85 (102) 100 05/15/20 20:15 95 12 137/86 (103) 100 05/15/20 20:00 60 05/15/20 20:00 99 05/15/20 20:00 99.8 96 14 141/89 (106) 100 05/15/20 20:00 141/89 05/15/20 20:00 Mechanical Ventilator 05/15/20 19:30 95 13 60 05/15/20 19:30 95 22 147/85 (105) 100 05/15/20 19:00 94 23 145/87 (106) 100 05/15/20 19:00 145/87 05/15/20 18:30 95 22 146/85 (105) 100 05/15/20 18:17 147/86 05/15/20 18:00 99.5 102 20 150/90 (110) 100 05/15/20 17:30 96 24 145/96 (112) 100 05/15/20 17:00 92 23 145/87 (106) 100 05/15/20 17:00 145/87 05/15/20 16:30 99 26 131/76 (94) 100 05/15/20 16:00 70 05/15/20 16:00 131/76 05/15/20 16:00 Mechanical Ventilator 05/15/20 16:00 101.0 99 29 131/76 (94) 100 05/15/20 15:30 99 29 122/69 (86) 100 05/15/20 15:26 99 05/15/20 15:22 70 05/15/20 15:08 106 31 70 05/15/20 15:00 102 30 122/81 (95) 100 05/15/20 15:00 122/81 05/15/20 14:30 105 28 121/84 (96) 100 05/15/20 14:00 127/82 05/15/20 14:00 106 28 127/82 (97) 100 05/15/20 13:30 104 28 110/77 (88) 100 05/15/20 13:28 107 88/64 05/15/20 13:00 104 28 86/59 (68) 100 05/15/20 13:00 86/59 05/15/20 12:30 106 28 110/74 (86) 100 05/15/20 12:00 113/78 05/15/20 12:00 108 05/15/20 12:00 100.9 107 28 113/78 (90) 100 05/15/20 11:32 Mechanical Ventilator 05/15/20 11:30 108 28 114/77 (89) 100 05/15/20 11:07 108 25 70 05/15/20 11:00 101.7 112 29 102/71 (81) 100 05/15/20 11:00 102/71 Height (Feet): 5 Height (Inches): 4.00 Weight (Pounds): 149 GEN: On Vent HEENT: NCAT, MMM, Intubated Pulm: Equal rise and fall B/L ABD: Soft, ND, PEG (No e/p) Neuro: Not following, Intubated SKIN: Exposed skin with no rash, Normal in color Microbiology Date/Time Source Procedure Growth Status 05/14/20 19:35 Blood Blood Culture - Preliminary NO GROWTH AFTER 24 HOURS Resulted 05/14/20 19:20 Blood Blood Culture - Preliminary NO GROWTH AFTER 24 HOURS Resulted 05/14/20 19:40 Nasopharynx SARS-CoV-2 RdRp Gene Assay - Final Complete 05/14/20 21:30 Urine,Clean Catch Urine Culture - Preliminary Resulted Laboratory Tests Test 05/15/20 12:25 05/15/20 16:00 05/15/20 22:38 05/16/20 05:50 Sodium Level 158 MMOL/L (136-145) H 158 MMOL/L (136-145) H 155 MMOL/L (136-145) H 155 MMOL/L (136-145) H Potassium Level 3.0 MMOL/L (3.5-5.1) L 3.0 MMOL/L (3.5-5.1) L 3.7 MMOL/L (3.5-5.1) 3.5 MMOL/L (3.5-5.1) Chloride Level 118 MMOL/L (98-107) H 118 MMOL/L (98-107) H 117 MMOL/L (98-107) H 116 MMOL/L (98-107) H Carbon Dioxide Level 20 MMOL/L (21-32) L 22 MMOL/L (21-32) 26 MMOL/L (21-32) 24 MMOL/L (21-32) Anion Gap 21 mmol/L (5-15) H 18 mmol/L (5-15) H 12 mmol/L (5-15) 15 mmol/L (5-15) Blood Urea Nitrogen 94 mg/dL (7-18) H 97 mg/dL (7-18) H 93 mg/dL (7-18) H 91 mg/dL (7-18) H Creatinine 2.2 MG/DL (0.55-1.30) H 2.1 MG/DL (0.55-1.30) H 2.0 MG/DL (0.55-1.30) H 1.9 MG/DL (0.55-1.30) H Estimat Glomerular Filtration Rate 22.0 mL/min (>60) 23.2 mL/min (>60) 24.6 mL/min (>60) 26.0 mL/min (>60) Glucose Level 397 MG/DL (74-106) #H 136 MG/DL (74-106) #H 120 MG/DL (74-106) H 62 MG/DL (74-106) L Calcium Level 8.7 MG/DL (8.5-10.1) 9.3 MG/DL (8.5-10.1) 9.7 MG/DL (8.5-10.1) 9.7 MG/DL (8.5-10.1) Lactic Acid Level 4.90 mmol/L (0.4-2.0) H 3.00 mmol/L (0.66-2.22) H Troponin I 1.901 ng/mL (0.000-0.056) 3.410 ng/mL (0.000-0.056) White Blood Count 20.8 K/UL (4.8-10.8) #H Red Blood Count 4.79 M/UL (4.20-5.40) Hemoglobin 14.2 G/DL (12.0-16.0) Hematocrit 45.1 % (37.0-47.0) Mean Corpuscular Volume 94 FL (80-99) Mean Corpuscular Hemoglobin 29.6 PG (27.0-31.0) Mean Corpuscular Hemoglobin Concent 31.5 G/DL (32.0-36.0) L Red Cell Distribution Width 13.5 % (11.6-14.8) Platelet Count 80 K/UL (150-450) L Mean Platelet Volume 13.9 FL (6.5-10.1) H Neutrophils (%) (Auto) % (45.0-75.0) Lymphocytes (%) (Auto) % (20.0-45.0) Monocytes (%) (Auto) % (1.0-10.0) Eosinophils (%) (Auto) % (0.0-3.0) Basophils (%) (Auto) % (0.0-2.0) Differential Total Cells Counted 100 Neutrophils % (Manual) 54 % (45-75) Lymphocytes % (Manual) 30 % (20-45) Monocytes % (Manual) 7 % (1-10) Eosinophils % (Manual) 0 % (0-3) Basophils % (Manual) 0 % (0-2) Band Neutrophils 9 % (0-8) H Nucleated Red Blood Cells 1 /100 WBC Platelet Estimate Decreased L Platelet Morphology Normal Red Blood Cell Morphology Normal Total Bilirubin 1.0 MG/DL (0.2-1.0) Aspartate Amino Transf (AST/SGOT) 89 U/L (15-37) H Alanine Aminotransferase (ALT/SGPT) 94 U/L (12-78) H Alkaline Phosphatase 32 U/L (46-116) L Lactate Dehydrogenase 611 U/L (81-234) H Pro-B-Type Natriuretic Peptide 98153 pg/mL (0-125) H Total Protein 6.9 G/DL (6.4-8.2) Albumin 2.5 G/DL (3.4-5.0) L Globulin 4.4 g/dL Albumin/Globulin Ratio 0.6 (1.0-2.7) L Random Vancomycin Level 14.5 ug/mL Test 05/16/20 07:53 05/16/20 08:01 Lactic Acid Level 1.90 mmol/L (0.4-2.0) Arterial Blood pH 7.520 (7.350-7.450) Arterial Blood Partial Pressure CO2 23.0 mmHg (35.0-45.0) *L Arterial Blood Partial Pressure O2 162.3 mmHg (75.0-100.0) H Arterial Blood HCO3 18.4 mmol/L (22.0-26.0) L Arterial Blood Oxygen Saturation 97.9 % (95-100) Arterial Blood Base Excess -2.8 (-2-2) L Anthony Test Positive Current Medications Medications (Trade) Dose Ordered Sig/Morgan Route PRN Reason Start Time Stop Time Status Last Admin Dose Admin Acetaminophen (Tylenol) 650 mg Q4H PRN GT Temp >100.5 05/16/20 06:15 06/15/20 06:14 05/16/20 08:46 Cefepime HCl 1 gm/ Dextrose 55 ml @ 110 mls/hr EVERY 12 HOURS IVPB 05/14/20 21:00 05/21/20 20:59 05/16/20 09:11 Chlorhexidine Gluconate (Lilliam-Hex 2%) 1 applic DAILY@1999 TOPIC 05/15/20 20:00 08/13/20 19:59 05/15/20 20:10 Dexamethasone Sodium Phosphate (Decadron 10mg/ ml Inj) 6 mg DAILY IV 05/16/20 09:00 05/24/20 08:59 05/16/20 08:46 Dextrose (Dextrose 50%) 25 ml Q30M PRN IV Hypoglycemia 05/15/20 06:45 08/13/20 06:44 Dextrose (Dextrose 50%) 25 ml Q30M PRN IV HYPOGLYCEMIA 05/15/20 09:15 08/13/20 09:14 Dextrose (Dextrose 50%) 25 ml Q30M PRN IV Hypoglycemia 05/15/20 18:00 08/13/20 17:59 Dextrose (Dextrose 50%) 50 ml Q30M PRN IV Hypoglycemia 05/14/20 20:15 08/12/20 20:14 Dextrose (Dextrose 50%) 50 ml Q30M PRN IV Hypoglycemia 05/15/20 06:45 08/13/20 06:44 Dextrose (Dextrose 50%) 50 ml Q30M PRN IV HYPOGLYCEMIA 05/15/20 09:15 08/13/20 09:14 Dextrose (Dextrose 50%) 50 ml Q30M PRN IV Hypoglycemia 05/15/20 18:00 08/13/20 17:59 Enoxaparin Sodium (Lovenox) 30 mg Q24H SUBQ 05/14/20 21:00 08/12/20 20:59 Insulin Aspart (NovoLOG) Q4HR SUBQ 05/15/20 21:00 08/13/20 20:59 05/16/20 08:47 Insulin Human Regular (NovoLIN R) 5 units PRN PRN IV BS 200-299 05/15/20 09:15 08/13/20 09:14 05/15/20 15:09 Insulin Human Regular (NovoLIN R) 10 units PRN PRN IV BS=>300 05/15/20 09:15 08/13/20 09:14 05/15/20 13:29 Miscellaneous Medication (Insulin Rate Change) 1 ea PRN PRN MISC Hyperglycemia 05/15/20 09:15 08/13/20 09:14 05/15/20 17:34 Morphine Sulfate (Morphine Sulfate) 2 mg EVERY 3 HOURS PRN IVP Moderate Pain (Pain Scale 4-6) 05/14/20 20:15 05/21/20 20:14 Morphine Sulfate (Morphine Sulfate) 4 mg EVERY 3 HOURS PRN IVP Severe Pain (Pain Scale 7-10) 05/14/20 20:15 05/21/20 20:14 Norepinephrine Bitartrate 16 mg/ Dextrose 516 ml @ 0 mls/hr Q24H IV 05/14/20 23:30 06/13/20 23:29 05/16/20 03:12 Pantoprazole (Protonix) 40 mg DAILY IV 05/15/20 09:00 06/14/20 08:59 05/16/20 08:46 Phenylephrine HCl 100 mg/Dextrose 250 ml @ 0 mls/hr Q24H IV 05/15/20 00:15 06/14/20 00:14 05/15/20 13:28 Sodium Chloride 1,000 ml @ 75 mls/hr [id number] IV 05/15/20 06:45 06/14/20 06:44 05/16/20 08:50 Vancomycin HCl ([facility]anco pharmacy to dose) 1 ea DAILY PRN MISC VANCOMYCIN 05/14/20 21:00 06/13/20 20:59 Vasopressin 100 units/Sodium Chloride 100 ml @ 0 mls/hr Q24H IV 05/15/20 00:15 06/14/20 00:14 Erasto Romeo MD May 16, 2020 10:58
--- NOTE | 2020-05-16 11:04 | NUR ---
NURSE NOTES: Patient received from Jeffery RUIZ. Patient stable at this time. VSS. RR even and unlabored on ETT 7.5 lip line 23cm. Vent settings AC 12 500mL 60% P5. Breath sounds diminished. Cardiac sounds benign. Appears to be NST on night monitor. Patient is opening eyes does not track but responds to light pain. Pupils do not react to light consistent with hx of blindness. On q4hr accucheck. Arauz draining well to gravity. RT IJ patent and intact with Levo running at 28mcg and Fluids infusing at 75mL/hr. Restraint applied to LT wrist with good ROM, circulation and sensation. Patient again observed trying to reach up for ETT. Will continue with restraints as ordered. Side rails up x3, call light within reach, bed low and locked. Will continue to monitor. Addendum: 05/16/20 at 1109 by JOSI SANCHEZ RN DUPLICATE DOCUMENTATION WITH INCORRECT TIME STAMP
--- NOTE | 2020-05-16 11:47 | Cardiac Electrophysiology PN ---
Subjective Subjective [id number] Objective Last 24 Hour Vital Signs Date Time Temp Pulse Resp B/P (MAP) Pulse Ox O2 Delivery O2 Flow Rate FiO2 05/16/20 11:23 101 19 45 05/16/20 10:30 102.0 100 18 121/73 (89) 100 05/16/20 10:00 105 21 102/66 (78) 100 05/16/20 09:30 102.4 106 18 110/67 (81) 100 05/16/20 09:20 102.4 05/16/20 09:00 107 20 112/70 (84) 100 05/16/20 08:30 102.2 110 20 108/72 (84) 100 05/16/20 08:00 Mechanical Ventilator 05/16/20 08:00 60 05/16/20 08:00 108 05/16/20 08:00 107 19 108/66 (80) 100 05/16/20 07:30 110 21 101/71 (81) 100 05/16/20 07:15 110 20 100/73 (82) 100 05/16/20 07:13 109 20 45 05/16/20 07:00 107 21 104/65 (78) 100 05/16/20 06:45 107 20 99/62 (74) 100 05/16/20 06:30 110 20 05/16/20 06:30 110 20 99/64 (76) 100 05/16/20 06:15 109 21 100/64 (76) 100 05/16/20 06:00 106 20 100/63 (75) 100 05/16/20 05:52 100.2 05/16/20 05:45 107 20 107/65 (79) 100 05/16/20 05:30 108 20 107/65 (79) 100 05/16/20 05:15 107 21 105/73 (84) 100 05/16/20 05:00 105/69 05/16/20 05:00 100.8 107 20 105/69 (81) 100 05/16/20 04:45 106 19 99/63 (75) 100 05/16/20 04:30 106 19 101/64 (76) 100 05/16/20 04:15 106 18 97/58 (71) 100 05/16/20 04:00 Mechanical Ventilator 05/16/20 04:00 104 9/7/20 04:00 104/64 05/16/20 04:00 60 05/16/20 04:00 100.2 106 19 104/64 (77) 100 05/16/20 03:45 108 20 97/68 (78) 100 05/16/20 03:30 108 20 110/72 (85) 100 05/16/20 03:30 110/72 05/16/20 03:12 105/67 05/16/20 03:00 109/70 05/16/20 03:00 109 21 101/61 (74) 100 05/16/20 02:58 109 20 60 05/16/20 02:30 107 19 109/70 (83) 99 05/16/20 02:00 107 23 111/70 (84) 99 05/16/20 02:00 111/70 05/16/20 01:30 107 17 106/69 (81) 100 05/16/20 01:00 105 19 109/70 (83) 100 05/16/20 01:00 109/70 05/16/20 00:45 106 18 105/67 (80) 100 05/16/20 00:30 104 20 114/61 (78) 99 05/16/20 00:15 105 19 116/73 (87) 99 05/16/20 00:00 Mechanical Ventilator 05/16/20 00:00 60 05/16/20 00:00 114/72 05/16/20 00:00 101.0 105 20 114/72 (86) 99 05/16/20 00:00 104 05/15/20 23:45 104 16 109/74 (86) 99 05/15/20 23:30 104 18 117/74 (88) 100 05/15/20 23:30 105 21 60 05/15/20 23:15 104 19 118/73 (88) 100 05/15/20 23:00 117/74 05/15/20 23:00 102 16 117/74 (88) 100 05/15/20 22:45 105 19 115/74 (88) 100 05/15/20 22:30 103 20 117/71 (86) 99 05/15/20 22:15 103 20 108/72 (84) 99 05/15/20 22:00 110/71 05/15/20 22:00 103 19 110/71 (84) 99 05/15/20 21:45 104 18 111/72 (85) 100 05/15/20 21:30 104 16 105/69 (81) 99 05/15/20 21:15 103 12 111/77 (88) 100 05/15/20 21:00 124/78 05/15/20 21:00 100 12 124/78 (93) 99 05/15/20 20:45 100 13 130/81 (97) 100 05/15/20 20:30 99 13 138/85 (102) 100 05/15/20 20:15 95 12 137/86 (103) 100 05/15/20 20:00 60 05/15/20 20:00 99 05/15/20 20:00 99.8 96 14 141/89 (106) 100 05/15/20 20:00 141/89 05/15/20 20:00 Mechanical Ventilator 05/15/20 19:30 95 13 60 05/15/20 19:30 95 22 147/85 (105) 100 05/15/20 19:00 94 23 145/87 (106) 100 05/15/20 19:00 145/87 05/15/20 18:30 95 22 146/85 (105) 100 05/15/20 18:17 147/86 05/15/20 18:00 99.5 102 20 150/90 (110) 100 05/15/20 17:30 96 24 145/96 (112) 100 05/15/20 17:00 92 23 145/87 (106) 100 05/15/20 17:00 145/87 05/15/20 16:30 99 26 131/76 (94) 100 05/15/20 16:00 70 05/15/20 16:00 131/76 05/15/20 16:00 Mechanical Ventilator 05/15/20 16:00 101.0 99 29 131/76 (94) 100 05/15/20 15:30 99 29 122/69 (86) 100 05/15/20 15:26 99 05/15/20 15:22 70 05/15/20 15:08 106 31 70 05/15/20 15:00 102 30 122/81 (95) 100 05/15/20 15:00 122/81 05/15/20 14:30 105 28 121/84 (96) 100 9/6/20 14:00 127/82 05/15/20 14:00 106 28 127/82 (97) 100 05/15/20 13:30 104 28 110/77 (88) 100 05/15/20 13:28 107 88/64 05/15/20 13:00 104 28 86/59 (68) 100 05/15/20 13:00 86/59 05/15/20 12:30 106 28 110/74 (86) 100 05/15/20 12:00 113/78 05/15/20 12:00 108 05/15/20 12:00 100.9 107 28 113/78 (90) 100 Intake and Output 05/15/20 05/16/20 19:00 07:00 Intake Total 1907.7170 ml 1549.345 ml Output Total 750 ml 1500 ml Balance 1157.7170 ml 49.345 ml IV Total 1907.7170 ml 1549.345 ml Output Urine Total 750 ml 1500 ml Laboratory Tests Test 05/15/20 12:25 05/15/20 16:00 05/15/20 22:38 05/16/20 05:50 Sodium Level 158 MMOL/L (136-145) H 158 MMOL/L (136-145) H 155 MMOL/L (136-145) H 155 MMOL/L (136-145) H Potassium Level 3.0 MMOL/L (3.5-5.1) L 3.0 MMOL/L (3.5-5.1) L 3.7 MMOL/L (3.5-5.1) 3.5 MMOL/L (3.5-5.1) Chloride Level 118 MMOL/L (98-107) H 118 MMOL/L (98-107) H 117 MMOL/L (98-107) H 116 MMOL/L (98-107) H Carbon Dioxide Level 20 MMOL/L (21-32) L 22 MMOL/L (21-32) 26 MMOL/L (21-32) 24 MMOL/L (21-32) Anion Gap 21 mmol/L (5-15) H 18 mmol/L (5-15) H 12 mmol/L (5-15) 15 mmol/L (5-15) Blood Urea Nitrogen 94 mg/dL (7-18) H 97 mg/dL (7-18) H 93 mg/dL (7-18) H 91 mg/dL (7-18) H Creatinine 2.2 MG/DL (0.55-1.30) H 2.1 MG/DL (0.55-1.30) H 2.0 MG/DL (0.55-1.30) H 1.9 MG/DL (0.55-1.30) H Estimat Glomerular Filtration Rate 22.0 mL/min (>60) 23.2 mL/min (>60) 24.6 mL/min (>60) 26.0 mL/min (>60) Glucose Level 397 MG/DL (74-106) #H 136 MG/DL (74-106) #H 120 MG/DL (74-106) H 62 MG/DL (74-106) L Calcium Level 8.7 MG/DL (8.5-10.1) 9.3 MG/DL (8.5-10.1) 9.7 MG/DL (8.5-10.1) 9.7 MG/DL (8.5-10.1) Lactic Acid Level 4.90 mmol/L (0.4-2.0) H 3.00 mmol/L (0.66-2.22) H Troponin I 1.901 ng/mL (0.000-0.056) 3.410 ng/mL (0.000-0.056) White Blood Count 20.8 K/UL (4.8-10.8) #H Red Blood Count 4.79 M/UL (4.20-5.40) Hemoglobin 14.2 G/DL (12.0-16.0) Hematocrit 45.1 % (37.0-47.0) Mean Corpuscular Volume 94 FL (80-99) Mean Corpuscular Hemoglobin 29.6 PG (27.0-31.0) Mean Corpuscular Hemoglobin Concent 31.5 G/DL (32.0-36.0) L Red Cell Distribution Width 13.5 % (11.6-14.8) Platelet Count 80 K/UL (150-450) L Mean Platelet Volume 13.9 FL (6.5-10.1) H Neutrophils (%) (Auto) % (45.0-75.0) Lymphocytes (%) (Auto) % (20.0-45.0) Monocytes (%) (Auto) % (1.0-10.0) Eosinophils (%) (Auto) % (0.0-3.0) Basophils (%) (Auto) % (0.0-2.0) Differential Total Cells Counted 100 Neutrophils % (Manual) 54 % (45-75) Lymphocytes % (Manual) 30 % (20-45) Monocytes % (Manual) 7 % (1-10) Eosinophils % (Manual) 0 % (0-3) Basophils % (Manual) 0 % (0-2) Band Neutrophils 9 % (0-8) H Nucleated Red Blood Cells 1 /100 WBC Platelet Estimate Decreased L Platelet Morphology Normal Red Blood Cell Morphology Normal Total Bilirubin 1.0 MG/DL (0.2-1.0) Aspartate Amino Transf (AST/SGOT) 89 U/L (15-37) H Alanine Aminotransferase (ALT/SGPT) 94 U/L (12-78) H Alkaline Phosphatase 32 U/L (46-116) L Lactate Dehydrogenase 611 U/L (81-234) H Pro-B-Type Natriuretic Peptide 05069 pg/mL (0-125) H Total Protein 6.9 G/DL (6.4-8.2) Albumin 2.5 G/DL (3.4-5.0) L Globulin 4.4 g/dL Albumin/Globulin Ratio 0.6 (1.0-2.7) L Random Vancomycin Level 14.5 ug/mL Test 05/16/20 07:53 05/16/20 08:01 Lactic Acid Level 1.90 mmol/L (0.4-2.0) Arterial Blood pH 7.520 (7.350-7.450) Arterial Blood Partial Pressure CO2 23.0 mmHg (35.0-45.0) *L Arterial Blood Partial Pressure O2 162.3 mmHg (75.0-100.0) H Arterial Blood HCO3 18.4 mmol/L (22.0-26.0) L Arterial Blood Oxygen Saturation 97.9 % (95-100) Arterial Blood Base Excess -2.8 (-2-2) L Anthony Test Positive Microbiology Date/Time Source Procedure Growth Status 05/14/20 19:35 Blood Blood Culture - Preliminary NO GROWTH AFTER 24 HOURS Resulted 05/14/20 19:20 Blood Blood Culture - Preliminary Resulted 05/14/20 19:40 Nasopharynx SARS-CoV-2 RdRp Gene Assay - Final Complete 05/14/20 21:30 Urine,Clean Catch Urine Culture - Preliminary Resulted Norman Morillo MD May 16, 2020 11:47
[2020-05-16] MEDS ORDERED: Digoxin 0.5mg/2ml Inj IVP SCH (11:50)
[2020-05-16] MEDS ORDERED: Cefepime HCl 1 GM in NS 55 ML IVPB ONE (12:00)
--- NOTE | 2020-05-16 12:39 | Pulmonology Progress Note ---
Subjective ROS Limited/Unobtainable: Yes Interval Events: Remains intubated; on levophed Constitutional: Reports: no symptoms HEENT: Repors: no symptoms Respiratory: Reports: no symptoms Cardiovascular: Reports: no symptoms Gastrointestinal/Abdominal: Reports: no symptoms Genitourinary: Reports: no symptoms Allergies: Coded Allergies: DIVALPROEX SODIUM (Verified Allergy, Unknown, 05/14/20) PENICILLINS (Verified Allergy, Unknown, 05/14/20) All Systems: reviewed and negative except above Objective Last 24 Hour Vital Signs Date Time Temp Pulse Resp B/P (MAP) Pulse Ox O2 Delivery O2 Flow Rate FiO2 05/16/20 12:06 93 05/16/20 11:23 101 19 45 05/16/20 10:30 102.0 100 18 121/73 (89) 100 05/16/20 10:00 105 21 102/66 (78) 100 05/16/20 09:30 102.4 106 18 110/67 (81) 100 05/16/20 09:20 102.4 05/16/20 09:00 107 20 112/70 (84) 100 05/16/20 08:30 102.2 110 20 108/72 (84) 100 05/16/20 08:00 Mechanical Ventilator 05/16/20 08:00 60 05/16/20 08:00 108 05/16/20 08:00 107 19 108/66 (80) 100 05/16/20 07:30 110 21 101/71 (81) 100 05/16/20 07:15 110 20 100/73 (82) 100 05/16/20 07:13 109 20 45 05/16/20 07:00 107 21 104/65 (78) 100 05/16/20 06:45 107 20 99/62 (74) 100 05/16/20 06:30 110 20 05/16/20 06:30 110 20 99/64 (76) 100 05/16/20 06:15 109 21 100/64 (76) 100 05/16/20 06:00 106 20 100/63 (75) 100 05/16/20 05:52 100.2 05/16/20 05:45 107 20 107/65 (79) 100 05/16/20 05:30 108 20 107/65 (79) 100 05/16/20 05:15 107 21 105/73 (84) 100 05/16/20 05:00 105/69 05/16/20 05:00 100.8 107 20 105/69 (81) 100 05/16/20 04:45 106 19 99/63 (75) 100 05/16/20 04:30 106 19 101/64 (76) 100 05/16/20 04:15 106 18 97/58 (71) 100 05/16/20 04:00 Mechanical Ventilator 05/16/20 04:00 104 05/16/20 04:00 104/64 05/16/20 04:00 60 05/16/20 04:00 100.2 106 19 104/64 (77) 100 05/16/20 03:45 108 20 97/68 (78) 100 05/16/20 03:30 108 20 110/72 (85) 100 05/16/20 03:30 110/72 05/16/20 03:12 105/67 05/16/20 03:00 109/70 05/16/20 03:00 109 21 101/61 (74) 100 05/16/20 02:58 109 20 60 05/16/20 02:30 107 19 109/70 (83) 99 05/16/20 02:00 107 23 111/70 (84) 99 05/16/20 02:00 111/70 05/16/20 01:30 107 17 106/69 (81) 100 05/16/20 01:00 105 19 109/70 (83) 100 05/16/20 01:00 109/70 05/16/20 00:45 106 18 105/67 (80) 100 05/16/20 00:30 104 20 114/61 (78) 99 05/16/20 00:15 105 19 116/73 (87) 99 05/16/20 00:00 Mechanical Ventilator 05/16/20 00:00 60 05/16/20 00:00 114/72 05/16/20 00:00 101.0 105 20 114/72 (86) 99 05/16/20 00:00 104 05/15/20 23:45 104 16 109/74 (86) 99 05/15/20 23:30 104 18 117/74 (88) 100 05/15/20 23:30 105 21 60 05/15/20 23:15 104 19 118/73 (88) 100 05/15/20 23:00 117/74 05/15/20 23:00 102 16 117/74 (88) 100 05/15/20 22:45 105 19 115/74 (88) 100 05/15/20 22:30 103 20 117/71 (86) 99 05/15/20 22:15 103 20 108/72 (84) 99 05/15/20 22:00 110/71 05/15/20 22:00 103 19 110/71 (84) 99 05/15/20 21:45 104 18 111/72 (85) 100 05/15/20 21:30 104 16 105/69 (81) 99 05/15/20 21:15 103 12 111/77 (88) 100 05/15/20 21:00 124/78 05/15/20 21:00 100 12 124/78 (93) 99 05/15/20 20:45 100 13 130/81 (97) 100 05/15/20 20:30 99 13 138/85 (102) 100 05/15/20 20:15 95 12 137/86 (103) 100 05/15/20 20:00 60 05/15/20 20:00 99 05/15/20 20:00 99.8 96 14 141/89 (106) 100 05/15/20 20:00 141/89 05/15/20 20:00 Mechanical Ventilator 05/15/20 19:30 95 13 60 05/15/20 19:30 95 22 147/85 (105) 100 05/15/20 19:00 94 23 145/87 (106) 100 05/15/20 19:00 145/87 05/15/20 18:30 95 22 146/85 (105) 100 05/15/20 18:17 147/86 05/15/20 18:00 99.5 102 20 150/90 (110) 100 05/15/20 17:30 96 24 145/96 (112) 100 05/15/20 17:00 92 23 145/87 (106) 100 05/15/20 17:00 145/87 05/15/20 16:30 99 26 131/76 (94) 100 05/15/20 16:00 70 05/15/20 16:00 131/76 05/15/20 16:00 Mechanical Ventilator 05/15/20 16:00 101.0 99 29 131/76 (94) 100 05/15/20 15:30 99 29 122/69 (86) 100 05/15/20 15:26 99 05/15/20 15:22 70 05/15/20 15:08 106 31 70 05/15/20 15:00 102 30 122/81 (95) 100 05/15/20 15:00 122/81 05/15/20 14:30 105 28 121/84 (96) 100 05/15/20 14:00 127/82 05/15/20 14:00 106 28 127/82 (97) 100 05/15/20 13:30 104 28 110/77 (88) 100 05/15/20 13:28 107 88/64 05/15/20 13:00 104 28 86/59 (68) 100 05/15/20 13:00 86/59 Intake and Output 05/15/20 05/16/20 19:00 07:00 Intake Total 1907.7170 ml 1549.345 ml Output Total 750 ml 1500 ml Balance 1157.7170 ml 49.345 ml IV Total 1907.7170 ml 1549.345 ml Output Urine Total 750 ml 1500 ml General Appearance: no acute distress HEENT: normocephalic Respiratory: chest wall non-tender, lungs clear Cardiovascular: normal peripheral pulses, normal rate Abdomen: normal bowel sounds Microbiology Date/Time Source Procedure Growth Status 05/14/20 19:35 Blood Blood Culture - Preliminary NO GROWTH AFTER 24 HOURS Resulted 05/14/20 19:20 Blood Blood Culture - Preliminary Resulted 05/14/20 19:40 Nasopharynx SARS-CoV-2 RdRp Gene Assay - Final Complete 05/14/20 21:30 Urine,Clean Catch Urine Culture - Preliminary Resulted Laboratory Tests 05/15/20 16:00: Sodium Level 158H, Potassium Level 3.0L, Chloride Level 118H, Carbon Dioxide Level 22, Anion Gap 18H, Blood Urea Nitrogen 97H, Creatinine 2.1H, Estimat Glomerular Filtration Rate 23.2, Glucose Level 136#H, Lactic Acid Level 4.90H, Calcium Level 9.3, Troponin I 1.901H 05/15/20 22:38: Sodium Level 155H, Potassium Level 3.7, Chloride Level 117H, Carbon Dioxide Level 26, Anion Gap 12, Blood Urea Nitrogen 93H, Creatinine 2.0H, Estimat Glomerular Filtration Rate 24.6, Glucose Level 120H, Lactic Acid Level 3.00H, Calcium Level 9.7 05/16/20 05:50: Sodium Level 155H, Potassium Level 3.5, Chloride Level 116H, Carbon Dioxide Level 24, Anion Gap 15, Blood Urea Nitrogen 91H, Creatinine 1.9H, Estimat Glomerular Filtration Rate 26.0, Glucose Level 62L, Calcium Level 9.7, Troponin I 3.410H, White Blood Count 20.8#H, Red Blood Count 4.79, Hemoglobin 14.2, Hematocrit 45.1, Mean Corpuscular Volume 94, Mean Corpuscular Hemoglobin 29.6, Mean Corpuscular Hemoglobin Concent 31.5L, Red Cell Distribution Width 13.5, Platelet Count 80L, Mean Platelet Volume 13.9H, Neutrophils (%) (Auto) , Lymphocytes (%) (Auto) , Monocytes (%) (Auto) , Eosinophils (%) (Auto) , Basophils (%) (Auto) , Differential Total Cells Counted 100, Neutrophils % ( Manual) 54, Lymphocytes % (Manual) 30, Monocytes % (Manual) 7, Eosinophils % ( Manual) 0, Basophils % (Manual) 0, Band Neutrophils 9H, Nucleated Red Blood Cells 1, Platelet Estimate DecreasedL, Platelet Morphology Normal, Red Blood Cell Morphology Normal, Total Bilirubin 1.0, Aspartate Amino Transf (AST/SGOT) 89H, Alanine Aminotransferase (ALT/SGPT) 94H, Alkaline Phosphatase 32L, Lactate Dehydrogenase 611H, Pro-B-Type Natriuretic Peptide 52816L, Total Protein 6.9, Albumin 2.5L, Globulin 4.4, Albumin/Globulin Ratio 0.6L, Random Vancomycin Level 14.5 05/16/20 07:53: Lactic Acid Level 1.90 05/16/20 08:01: Arterial Blood pH 7.520H, Arterial Blood Partial Pressure CO2 23.0*L, Arterial Blood Partial Pressure O2 162.3H, Arterial Blood HCO3 18.4L, Arterial Blood Oxygen Saturation 97.9, Arterial Blood Base Excess -2.8L, Anthony Test Positive Current Medications Medications (Trade) Dose Ordered Sig/Morgan Route PRN Reason Start Time Stop Time Status Last Admin Dose Admin Acetaminophen (Tylenol) 650 mg Q4H PRN GT Temp >100.5 05/16/20 06:15 10/7/20 06:14 05/16/20 08:46 Cefepime HCl 2 gm/ Sodium Chloride 110 ml @ 220 mls/hr Q24H IV 05/17/20 09:00 05/24/20 08:59 Chlorhexidine Gluconate (Lilliam-Hex 2%) 1 applic DAILY@2000 TOPIC 05/15/20 20:00 08/13/20 19:59 05/15/20 20:10 Dexamethasone Sodium Phosphate (Decadron 10mg/ ml Inj) 6 mg DAILY IV 05/16/20 09:00 05/24/20 08:59 05/16/20 08:46 Dextrose (Dextrose 50%) 25 ml Q30M PRN IV Hypoglycemia 05/15/20 18:00 08/13/20 17:59 Dextrose (Dextrose 50%) 50 ml Q30M PRN IV Hypoglycemia 05/15/20 18:00 08/13/20 17:59 Digoxin (Lanoxin) 0.5 mg ONCE IVP 05/16/20 11:50 05/16/20 12:50 05/16/20 12:06 Enoxaparin Sodium (Lovenox) 30 mg Q24H SUBQ 05/14/20 21:00 08/12/20 20:59 Insulin Aspart (NovoLOG) Q4HR SUBQ 05/15/20 21:00 08/13/20 20:59 05/16/20 08:47 Morphine Sulfate (Morphine Sulfate) 2 mg EVERY 3 HOURS PRN IVP Moderate Pain (Pain Scale 4-6) 05/14/20 20:15 05/21/20 20:14 Morphine Sulfate (Morphine Sulfate) 4 mg EVERY 3 HOURS PRN IVP Severe Pain (Pain Scale 7-10) 05/14/20 20:15 05/21/20 20:14 Norepinephrine Bitartrate 16 mg/ Dextrose 516 ml @ 0 mls/hr Q24H IV 05/14/20 23:30 06/13/20 23:29 05/16/20 03:12 Pantoprazole (Protonix) 40 mg DAILY IV 05/15/20 09:00 06/14/20 08:59 05/16/20 08:46 Phenylephrine HCl 100 mg/Dextrose 250 ml @ 0 mls/hr Q24H IV 05/15/20 00:15 06/14/20 00:14 05/15/20 13:28 Sodium Chloride 1,000 ml @ 75 mls/hr [id number] IV 05/15/20 06:45 06/14/20 06:44 05/16/20 08:50 Vancomycin HCl (Vanco pharmacy to dose) 1 ea DAILY PRN MISC VANCOMYCIN 05/14/20 21:00 06/13/20 20:59 Vasopressin 100 units/Sodium Chloride 100 ml @ 0 mls/hr Q24H IV 05/15/20 00:15 06/14/20 00:14 Assessment/Plan Assessment/Plan IMPRESSION: 1. Acute respiratory failure. 2. Diabetes mellitus with hyperglycemia. 3. Septic shock. 4. Chronic G-tube. 5. Decubitus. 6. History of CHF. DISCUSSION: The patient is critically ill. Continue insulin. IV fluids to be given with hypotonic solutions. Broad-spectrum antibiotics. Pressors. Continue AC mode till stable. DVT and GI prophylaxis. Respiratory precautions due to COVID-[address] Wade. I will follow carefully. Has respiratory alkalosis; consider adding sedatives (On AC 12, measured f =34) Richard James Omar Syed MD May 16, 2020 12:39
--- NOTE | 2020-05-16 13:10 | NUR ---
NURSE NOTES: Notified Dr. Wade of gtube balloon being visible. Will consult Dr. Matos.
--- NOTE | 2020-05-16 15:10 | NUR ---
NURSE NOTES: Patient's HR high 140's for 15min after cleaning. Dr. Morillo notified. Awaiting response.
--- NOTE | 2020-05-16 18:35 | NUR ---
NURSE NOTES: Patient's HR again up to low 120's. Dr. Morillo contacted. Awaiting response. Cooling measures reapplied to patient.
--- NOTE | 2020-05-16 18:44 | Consultation ---
DATE OF CONSULTATION: 05/16/2020 CARDIOLOGY CONSULTATION CONSULTING PHYSICIAN: Norman Morillo MD REFERRING PHYSICIAN: Jessica Wade MD REASON FOR CONSULTATION: Atrial fibrillation with rapid ventricular response. HISTORY OF PRESENT ILLNESS: The patient is a 70-year-old lady with history of CVA with dementia, dysphagia status post PEG placement, cachexia, diabetes, pressure ulcers, oxygen dependent, hypothyroidism, legal blindness as well as history of [facility], who was at [facility] and was transferred to the ER by paramedics as she developed atrial fibrillation with rapid ventricular response and hypotension. The patient was on non-rebreather with 90% saturation. The patient underwent direct cardioversion x3 by paramedics and the heart rate improved to 120s. The patient subsequently was intubated and was brought to the intensive care unit. At the time of my evaluation, the patient is in intensive care unit on the ventilator, not able to provide any information. The patient's sodium also was 172 that improved to 158. REVIEW OF SYSTEMS: Cannot be obtained. PAST MEDICAL HISTORY: As mentioned above. FAMILY HISTORY: Noncontributory. SOCIAL HISTORY: She is a [facility] resident. Does not smoke or drink alcohol. PHYSICAL EXAMINATION: VITAL SIGNS: Show blood pressure of 121/73, pulse is 101, respirations 18, and temperature 102.4. HEAD AND NECK: Show no JVD. She is orally intubated. LUNGS: Coarse rhonchi. CARDIOVASCULAR: Shows regular S1 and S2 with no gallop. ABDOMEN: Soft. Status post G-tube. EXTREMITIES: Show no pitting edema. LABORATORY AND DIAGNOSTIC DATA: Labs show white count of 20.8, hemoglobin of 14.2, hematocrit 45.1, and platelet count of only 80. Sodium 155, potassium 3.5, BUN of 91, creatinine 1.9, and glucose of 62. Troponin increased to 3.41. Initial troponin was 1.2. Her EKG on May 14, showed atrial fibrillation with rapid ventricular response with heart rate of 170 beats per minute . EKG done today showed accelerated junctional rhythm with negative P-waves in inferior leads with heart rate over 105. Initial sodium was also 174. ASSESSMENT AND PLAN: 1. [id number] myocardial infarction. Her troponin was 1.258, then 1.2, then 1.9, and then this morning, it is 3.4. EKG does not show any acute ST-T wave abnormality and certainly no ST elevation. This is likely precipitated by septic shock as the patient is on pressors. Renal failure and dehydration also troponin as initial sodium was 170s with BUN of 131 and creatinine of 2.7. The echocardiogram is also pending. 2. Atrial fibrillation with rapid ventricular response. The patient cardioverted 3 times and can contribute to the patient's elevated troponin. Currently in accelerated junctional rhythm. Cannot use beta-ramakrishna or calcium-channel ramakrishna as the patient is still hypotensive, on Levophed. We will plan to load the patient with digoxin to get heart rate under control. I will check a dig level in the morning. 3. Septic shock. The patient is on Levophed 28 mcg as well as broad-spectrum antibiotic with vancomycin and cefepime. 4. Severe hypernatremia with sodium of 174, BUN of 131, creatinine 2.7 due to dehydration. Sodium today is 155 with BUN of 91 and creatinine of 1.9 with IV fluids. 5. Lactic acidosis, septic shock, on antibiotic. 6. Dysphagia, status post PEG placement. 7. History of CVA and dementia. 8. Respiratory failure, currently on the ventilator at 50% FiO2. Thank you very much, Dr. Wade, for allowing me to participate in the care of this patient. Please do not hesitate to contact me for any questions regarding my evaluation. Norman Morillo M.D. DR: Santosh JOB#: [id number] CC:
--- NOTE | 2020-05-16 18:45 | NUR ---
NURSE NOTES: Contacted Dr. Matos regarding G tube use. Nursing order given to not use g tube. Also contacted Dr. Wade and order was received for rectal tylenol.
--- NOTE | 2020-05-16 19:30 | NUR ---
NURSE HAND-OFF REPORT: Latest Vital Signs: Temperature 99.1 , Pulse 101 , B/P 130 /71 , Respiratory Rate 17 , O2 SAT 100 , Mechanical Ventilator, O2 Flow Rate 15.0 . Vital Sign Comment: STABLE BUT TACHYCARDIC EKG Rhythm: Sinus Tachycardia Rhythm change?: N Notified?: Y -Dr. Ilia SEYMOUR Response: No New Orders Received Latest Garza Fall Score: 50 Fall Risk: High Risk Safety Measures: Call light Within Reach, Bed Alarm Zone 1, Side Rails Side Rails x2, Bed position Low and Locked. Fall Precautions: Yellow Gown Report given to [place] RUIZ. Patient stable. Plan of care endoresed. Aware that Gtube is not be used. Endorsed that patient has been having fevers with highest of 102.4. Cooling measures reapplied.
--- NOTE | 2020-05-16 19:30 | NUR ---
NURSE NOTES: received a covid +pt with main Dx rapid Afib, opened eyes to tactile , blind bilateral eyes, orally intubated on ac mode, SR-St low 100s on the monitor, Bp been supported with Levophed drip at 20 mcg/min at this time, pt also has maintainance ivf of 1/2NS at 75ml/hr pts is NPO, GT clamped awaiting for Dr Matos to check pt, Arauz to gravity with lg amt of yellowish urine. Pt also has left wrist soft wrist restraints for safety to avoid pulling out therapeutic devices. Will continue to monitor.
[2020-05-16] MEDS: Dyna-Hex 2% Top Sol 2oz TOPIC SCH (19:53)
[2020-05-16] MEDS: Enoxaparin 30mg Inj SUBQ SCH (21:00)
--- NOTE | 2020-05-16 21:00 | NUR ---
NURSE NOTES: Levophed drip down to 18mcg/min, Bp 137/80, SR on the monitor.
[2020-05-16] MEDS: Acetaminophen 650 MG SUPP RECTAL PRN (22:07)
--- NOTE | 2020-05-16 22:07 | NUR ---
NURSE NOTES: Tylenol 650mg Supp was given due temp 101.3. cooling measures on progress.
--- NOTE | 2020-05-16 23:00 | NUR ---
NURSE NOTES: Levophed drip down to 16mcg/min, Bp 139/77, SR on the monitor.
[2020-05-17] VITALS (48 sets, daily range): BP systolic 86–137; BP diastolic 57–96
--- NOTE | 2020-05-17 | NUR ---
NURSE NOTES: Temp 99.6, SR on the monitor, Left wrist softrestrained maintained for safety to avoid pulling out therapeutic devices.
[2020-05-17] MEDS: Phenylephrine 100 MG in D5W 240 ML IV SCH (00:15)
[2020-05-17] MEDS: Vasopressin 100 UNITS in NS 95 ML IV SCH (00:15)
[2020-05-17] MEDS: NovoLOG Insulin Flexpen SUBQ SCH ×6 (01:04→21:21)
--- NOTE | 2020-05-17 02:17 | NUR ---
NURSE NOTES: levophed drip down to 14mcg/min, Bp 108/66. Suctioned tn tk whitish secretions minimal to moderate in amt., Turned q 2hrs prn, Pressure drsg remained dry and intact.
--- NOTE | 2020-05-17 04:00 | NUR ---
NURSE NOTES: Levophed drip down to 10mcg/min bp 102/64, temp 101F, cooling measures on progress. Complete bed bath with bed changed was done.
[2020-05-17 05:30] LABS: HEMATOCRIT 31.4 % (37.0-47.0); HEMOGLOBIN 10.6 G/DL (12.0-16.0); MEAN CORPUSCULAR VOLUME 91 FL (80-99); PLATELET COUNT 64 K/UL (150-450); RED BLOOD COUNT 3.46 M/UL (4.20-5.40); RED CELL DISTRIBUTION WIDTH 12.8 % (11.6-14.8); WHITE BLOOD COUNT 18.5 K/UL (4.8-10.8)
--- NOTE | 2020-05-17 06:00 | NUR ---
NURSE NOTES: TEmp 99.6F , Still on Levophed drip at 10mcg/min.
--- NOTE | 2020-05-17 06:32 | General Progress Note ---
Assessment/Plan Problem List: (1) COVID-19 ICD Codes: U07.1 - COVID-19 SNOMED: 638131663 (2) Elevated d-dimer ICD Codes: R79.89 - Other specified abnormal findings of blood chemistry SNOMED: 465362138 (3) Rapid atrial fibrillation ICD Codes: I48.91 - Unspecified atrial fibrillation SNOMED: 738461494 (4) Sepsis ICD Codes: A41.9 - Sepsis, unspecified organism SNOMED: 57157440 (5) Respiratory failure ICD Codes: J96.90 - Respiratory failure, unspecified, unspecified whether with hypoxia or hypercapnia SNOMED: 861751292 (6) Renal failure ICD Codes: N19 - Unspecified kidney failure SNOMED: 19803514 (7) Hypernatremia ICD Codes: E87.0 - Hyperosmolality and hypernatremia SNOMED: 936862811 (8) T2DM (type 2 diabetes mellitus) ICD Codes: E11.9 - Type 2 diabetes mellitus without complications SNOMED: 17583069 Status: unchanged Assessment/Plan: no need for basal insulin continue Novolog sliding scale every 4 hours hypoglycemia protocol in order Subjective ROS Limited/Unobtainable: Yes Allergies: Coded Allergies: DIVALPROEX SODIUM (Verified Allergy, Unknown, 05/14/20) PENICILLINS (Verified Allergy, Unknown, 05/14/20) Subjective events noted and interval notes reviewed remained intubated in ICU on pressors glucose values are stable Item Value Date Time Bedside Blood Glucose 150 mg/dl H 05/17/20 0437 Bedside Blood Glucose 166 mg/dl H 05/17/20 0104 Bedside Blood Glucose 170 mg/dl H 05/16/20 2128 Bedside Blood Glucose 140 mg/dl H 05/16/20 1702 Bedside Blood Glucose 154 mg/dl H 05/16/20 1359 Bedside Blood Glucose 153 mg/dl H 05/16/20 0900 Bedside Blood Glucose 145 mg/dl H 05/16/20 0516 Bedside Blood Glucose 133 mg/dl H 05/16/20 0100 Objective Last 24 Hour Vital Signs Date Time Temp Pulse Resp B/P (MAP) Pulse Ox O2 Delivery O2 Flow Rate FiO2 05/17/20 06:15 86 17 96/60 (72) 100 05/17/20 06:00 99.6 87 17 95/57 (70) 100 05/17/20 05:30 98 18 103/67 (79) 100 05/17/20 05:00 93 16 100/61 (74) 100 05/17/20 04:30 90 16 94/60 (71) 100 05/17/20 04:00 45 05/17/20 04:00 101.0 97 18 97/62 (74) 100 05/17/20 04:00 94 05/17/20 04:00 110/60 05/17/20 04:00 Mechanical Ventilator 05/17/20 03:30 88 16 115/69 (84) 100 05/17/20 03:00 98 16 118/68 (85) 100 05/17/20 03:00 115/70 05/17/20 02:45 96 17 45 05/17/20 02:30 95 16 114/70 (85) 100 05/17/20 02:17 108/66 05/17/20 02:00 98 17 108/64 (79) 100 05/17/20 01:30 95 17 113/76 (88) 100 05/17/20 01:00 89 16 113/70 (84) 100 05/17/20 00:30 94 16 130/79 (96) 100 05/17/20 00:15 87 131/80 05/17/20 00:00 45 05/17/20 00:00 Mechanical Ventilator 05/17/20 00:00 98 05/17/20 00:00 99.6 82 14 136/76 (96) 100 05/16/20 23:30 80 15 140/75 (96) 100 05/16/20 23:00 82 15 139/77 (97) 100 05/16/20 23:00 139/77 05/16/20 22:54 96 19 45 05/16/20 22:37 100.5 05/16/20 22:30 98 17 113/72 (86) 100 05/16/20 22:00 148/79 05/16/20 22:00 84 16 148/79 (102) 100 05/16/20 21:30 101.3 87 17 132/76 (94) 100 05/16/20 21:00 82 16 137/80 (99) 100 05/16/20 21:00 137/80 05/16/20 20:30 91 18 137/77 (97) 100 05/16/20 20:00 45 05/16/20 20:00 101.0 103 18 129/71 (90) 100 05/16/20 20:00 129/71 05/16/20 20:00 Mechanical Ventilator 05/16/20 19:30 101 17 130/71 (90) 100 05/16/20 19:00 114/70 05/16/20 19:00 122 22 118/66 (83) 100 05/16/20 18:56 122 20 45 05/16/20 18:30 124 21 111/71 (84) 100 05/16/20 18:00 104/70 05/16/20 18:00 120 20 104/70 (81) 100 05/16/20 17:30 123 21 109/72 (84) 100 05/16/20 17:00 121/71 05/16/20 17:00 109 19 121/71 (88) 100 05/16/20 16:30 109 18 117/73 (88) 100 05/16/20 16:00 112 05/16/20 16:00 Mechanical Ventilator 05/16/20 16:00 115/70 05/16/20 16:00 45 05/16/20 16:00 99.1 118 18 115/70 (85) 100 05/16/20 15:30 117 19 109/69 (82) 100 05/16/20 15:20 113 20 45 05/16/20 15:00 110 20 100/65 (77) 100 05/16/20 15:00 100/65 05/16/20 14:30 127 23 100/63 (75) 100 05/16/20 14:10 147 05/16/20 14:00 137 21 104/67 (79) 100 05/16/20 14:00 104/67 05/16/20 13:45 91 16 100/70 (80) 99 05/16/20 13:30 104/57 05/16/20 13:30 91 16 105/64 (78) 100 05/16/20 13:15 93 18 114/65 (81) 100 05/16/20 13:00 114/65 05/16/20 13:00 90 21 68/42 (51) 100 05/16/20 12:45 107/73 05/16/20 12:45 99 20 121/70 (87) 100 05/16/20 12:30 99 20 127/73 (91) 100 05/16/20 12:15 93 18 107/73 (84) 100 05/16/20 12:06 93 05/16/20 12:00 45 05/16/20 12:00 Mechanical Ventilator 05/16/20 12:00 96 05/16/20 12:00 99.8 95 17 111/70 (84) 100 05/16/20 11:45 95 18 116/71 (86) 100 05/16/20 11:45 116/71 05/16/20 11:30 94 17 122/71 (88) 100 05/16/20 11:23 101 19 45 05/16/20 11:00 102 16 118/73 (88) 100 05/16/20 11:00 115/74 05/16/20 10:30 102.0 100 18 121/73 (89) 100 05/16/20 10:00 108/70 05/16/20 10:00 105 21 102/66 (78) 100 05/16/20 09:30 102.4 106 18 110/67 (81) 100 05/16/20 09:20 102.4 05/16/20 09:00 106/70 05/16/20 09:00 107 20 112/70 (84) 100 05/16/20 08:30 102.2 110 20 108/72 (84) 100 05/16/20 08:00 Mechanical Ventilator 05/16/20 08:00 108/67 05/16/20 08:00 60 05/16/20 08:00 108 05/16/20 08:00 107 19 108/66 (80) 100 05/16/20 07:30 110 21 101/71 (81) 100 05/16/20 07:15 110 20 100/73 (82) 100 05/16/20 07:13 109 20 45 05/16/20 07:00 107 21 104/65 (78) 100 05/16/20 07:00 100/73 05/16/20 06:45 107 20 99/62 (74) 100 Intake and Output 05/16/20 05/17/20 19:00 07:00 Intake Total 1830.670 ml 895.59 ml Output Total 1075 ml 1030 ml Balance 755.670 ml -134.41 ml IV Total 1830.670 ml 895.59 ml Output Urine Total 1075 ml 1030 ml # Bowel Movements 2 3 Laboratory Tests 05/16/20 07:53: Lactic Acid Level 1.90 05/16/20 08:01: Arterial Blood pH 7.520H, Arterial Blood Partial Pressure CO2 23.0*L, Arterial Blood Partial Pressure O2 162.3H, Arterial Blood HCO3 18.4L, Arterial Blood Oxygen Saturation 97.9, Arterial Blood Base Excess -2.8L, Anthony Test Positive 05/17/20 03:45: White Blood Count 18.5H, Red Blood Count 3.46L, Hemoglobin 10.6L, Hematocrit 31.4#L, Mean Corpuscular Volume 91, Mean Corpuscular Hemoglobin 30.8, Mean Corpuscular Hemoglobin Concent 33.9, Red Cell Distribution Width 12.8, Platelet Count 64L, Mean Platelet Volume 14.2H, Neutrophils (%) (Auto) , Lymphocytes (%) (Auto) , Monocytes (%) (Auto) , Eosinophils (%) (Auto) , Basophils (%) (Auto) , Neutrophils % (Manual) [Pending], Lymphocytes % (Manual) [Pending], Platelet Estimate [Pending], Platelet Morphology [Pending], Sodium Level [Pending], Potassium Level [Pending], Chloride Level [Pending], Carbon Dioxide Level [ Pending], Blood Urea Nitrogen [Pending], Creatinine [Pending], Estimat Glomerular Filtration Rate [Pending], Glucose Level [Pending], Calcium Level [ Pending], Phosphorus Level [Pending], Magnesium Level [Pending], Total Bilirubin [Pending], Aspartate Amino Transf (AST/SGOT) [Pending], Alanine Aminotransferase (ALT/SGPT) [Pending], Alkaline Phosphatase [Pending], Troponin I 0.700H, Pro-B-Type Natriuretic Peptide 35353L, Total Protein [Pending], Albumin [Pending], Globulin [Pending], Digoxin Level 1.3 Height (Feet): 5 Height (Inches): 4.00 Weight (Pounds): 149 Objective Current Medications Medications (Trade) Dose Ordered Sig/Morgan Route PRN Reason Start Time Stop Time Status Last Admin Dose Admin Acetaminophen (Tylenol) 650 mg Q4H PRN GT Temp >100.5 05/16/20 06:15 06/15/20 06:14 05/16/20 08:46 Acetaminophen (Tylenol) 650 mg Q4H PRN RECTAL Temp >100.5 05/16/20 19:45 06/15/20 19:44 05/16/20 22:07 Cefepime HCl 2 gm/ Sodium Chloride 110 ml @ 220 mls/hr Q24H IV 05/17/20 09:00 05/24/20 08:59 Chlorhexidine Gluconate (Lilliam-Hex 2%) 1 applic DAILY@2000 TOPIC 05/15/20 20:00 08/13/20 19:59 05/16/20 19:53 Dexamethasone Sodium Phosphate (Decadron 10mg/ ml Inj) 6 mg DAILY IV 05/16/20 09:00 05/24/20 08:59 05/16/20 08:46 Dextrose (Dextrose 50%) 25 ml Q30M PRN IV Hypoglycemia 05/15/20 18:00 08/13/20 17:59 Dextrose (Dextrose 50%) 50 ml Q30M PRN IV Hypoglycemia 05/15/20 18:00 08/13/20 17:59 Enoxaparin Sodium (Lovenox) 30 mg Q24H SUBQ 05/14/20 21:00 08/12/20 20:59 Insulin Aspart (NovoLOG) Q4HR SUBQ 05/15/20 21:00 08/13/20 20:59 05/17/20 04:37 Morphine Sulfate (Morphine Sulfate) 2 mg EVERY 3 HOURS PRN IVP Moderate Pain (Pain Scale 4-6) 05/14/20 20:15 05/21/20 20:14 Morphine Sulfate (Morphine Sulfate) 4 mg EVERY 3 HOURS PRN IVP Severe Pain (Pain Scale 7-10) 05/14/20 20:15 05/21/20 20:14 Norepinephrine Bitartrate 16 mg/ Dextrose 516 ml @ 0 mls/hr Q24H IV 05/14/20 23:30 06/13/20 23:29 05/17/20 02:17 Pantoprazole (Protonix) 40 mg DAILY IV 05/15/20 09:00 06/14/20 08:59 05/16/20 08:46 Phenylephrine HCl 100 mg/Dextrose 250 ml @ 0 mls/hr Q24H IV 05/15/20 00:15 06/14/20 00:14 05/15/20 13:28 Sodium Chloride 1,000 ml @ 75 mls/hr [id number] IV 05/15/20 06:45 06/14/20 06:44 05/16/20 22:53 Vancomycin HCl (Vanco pharmacy to dose) 1 ea DAILY PRN MISC VANCOMYCIN 05/14/20 21:00 06/13/20 20:59 Vasopressin 100 units/Sodium Chloride 100 ml @ 0 mls/hr Q24H IV 05/15/20 00:15 06/14/20 00:14 Chau Shelley MD May 17, 2020 06:31
[2020-05-17 06:59] LABS: ALANINE AMINOTRANSFERASE 58 U/L (12-78); ALBUMIN 1.9 G/DL (3.4-5.0); ALBUMIN/GLOBULIN RATIO 0.5 (1.0-2.7); ALKALINE PHOSPHATASE 50 U/L (46-116); ANION GAP 14 mmol/L (5-15); ASPARTATE AMINO TRANSFERASE 70 U/L (15-37); BILIRUBIN,TOTAL 1.1 MG/DL (0.2-1.0); BLOOD UREA NITROGEN 66 mg/dL (7-18); CALCIUM 9.2 MG/DL (8.5-10.1); CARBON DIOXIDE 21 MMOL/L (21-32); CHLORIDE 116 MMOL/L (98-107); CREATININE 1.5 MG/DL (0.55-1.30); PHOSPHORUS 4.1 MG/DL (2.5-4.9); POTASSIUM 3.3 MMOL/L (3.5-5.1); SODIUM 151 MMOL/L (136-145)
[2020-05-17 07:03] LABS: BILIRUBIN,DIRECT 0.2 MG/DL (0.0-0.3)
--- NOTE | 2020-05-17 07:37 | NUR ---
NURSE HAND-OFF REPORT: Latest Vital Signs: Temperature 99.6 , Pulse 88 , B/P 99 /63 , Respiratory Rate 16 , O2 SAT 100 , Mechanical Ventilator, O2 Flow Rate 15.0 . Vital Sign Comment: EKG Rhythm: Sinus Rhythm Rhythm change?: N Notified?: Marcella Morillo MD Response: No New Orders Received Latest Garza Fall Score: 50 Fall Risk: High Risk Safety Measures: Call light Within Reach, Bed Alarm Zone 1, Side Rails Side Rails x2, Bed position Low and Locked. Fall Precautions: Yellow Gown Report given to Norma RUIZ.
--- NOTE | 2020-05-17 08:00 | NUR ---
NURSE NOTES: Pt was assessed after receiving change of shift report from [place] RUIZ. Pt is orally intubated, opens eyes to voice, does not follow commands, withdraws to pain. ETT 7.5 at 23cm lipline with settings AC12, VT500, Peep 5.0, FIO2 45%. Bilateral rhonchi noted on auscultation. NSR on senior php developer, HR 86, SBP fluctuating from upper upper 80's to 90's while pt is maintained on Levophed drip, currently at 10mcg/min. Temp 99F axillary, however extremities are cool to touch. LUQ GT, clamped, skin around GT site is red, excoriated, covered with dressing. Abdomen is round, soft, nontender to touch with hypoactive bowel sounds. Arauz catheter is present, draining clear/yellow urine. Skin alterations noted. Pt is on pressure release mattress. HOB at 30 degrees, bed locked, in lowest position, three side rails up. Left soft wrist restraint in use to prevent self-extubation, pt has right sided weakness, attempts to reach ET tube with left arm. Skin/vascular integrity at restraint site remains within normal limits. Will continue to monitor pt and follow plan of care per MD orders and protocol.
[2020-05-17] MEDS ORDERED: Cefepime HCl 2 GM in NS 110 ML IV SCH (09:00)
--- NOTE | 2020-05-17 09:00 | NUR ---
NURSE NOTES: RT at bedside, FIO2 was titrated down to 40% from 45%. O2Sat remains at 100%. Per RT, weaning was attempted, however NIF remains low. Pt is currently maintained on AC vent settings from this morning.
--- NOTE | 2020-05-17 10:00 | NUR ---
NURSE NOTES: Dr. Matos is at the nurse's station. MD notified regarding pt's GT site drainage, GT balloon visible from site, and skin excoriated. Received order from MD to deflate the balloon and remove GT from site. GT was removed, and site covered with 4x4 gauze/abd pad. Per MD pt is to remain NPO at this time until further notice. No additional orders were received. Pt remains on Levophed drip at 10mcg/min to maintain SBP above 90.
[2020-05-17] MEDS: Pantoprazole Inj IV SCH (10:05)
[2020-05-17] MEDS: dexAMETHasone 10mg/ml Inj IV SCH (10:05)
--- NOTE | 2020-05-17 10:57 | Pulmonology Progress Note ---
Subjective ROS Limited/Unobtainable: Yes Interval Events: Remains intubated; on levophed Constitutional: Reports: no symptoms HEENT: Repors: no symptoms Respiratory: Reports: no symptoms Cardiovascular: Reports: no symptoms Gastrointestinal/Abdominal: Reports: no symptoms Genitourinary: Reports: no symptoms Allergies: Coded Allergies: DIVALPROEX SODIUM (Verified Allergy, Unknown, 05/14/20) PENICILLINS (Verified Allergy, Unknown, 05/14/20) All Systems: reviewed and negative except above Objective Last 24 Hour Vital Signs Date Time Temp Pulse Resp B/P (MAP) Pulse Ox O2 Delivery O2 Flow Rate FiO2 05/17/20 10:30 89 17 101/66 (78) 100 05/17/20 10:00 87 16 105/64 (78) 100 05/17/20 09:30 84 17 96/63 (74) 100 05/17/20 09:00 88 17 101/62 (75) 100 05/17/20 08:30 84 15 97/64 (75) 100 05/17/20 08:00 98.8 84 16 107/65 (79) 100 05/17/20 07:30 88 16 99/63 (75) 100 05/17/20 07:22 89 14 40 05/17/20 07:15 87 16 103/62 (76) 100 05/17/20 07:00 102/60 05/17/20 07:00 87 16 94/61 (72) 100 05/17/20 06:45 88 17 99/59 (72) 100 05/17/20 06:30 87 20 05/17/20 06:30 88 15 95/60 (72) 100 05/17/20 06:15 86 17 96/60 (72) 100 05/17/20 06:00 96/60 05/17/20 06:00 99.6 87 17 95/57 (70) 100 05/17/20 05:30 98 18 103/67 (79) 100 05/17/20 05:00 93 16 100/61 (74) 100 05/17/20 05:00 100/61 05/17/20 04:30 90 16 94/60 (71) 100 05/17/20 04:00 45 05/17/20 04:00 101.0 97 18 97/62 (74) 100 05/17/20 04:00 94 05/17/20 04:00 110/60 05/17/20 04:00 Mechanical Ventilator 05/17/20 03:30 88 16 115/69 (84) 100 05/17/20 03:00 98 16 118/68 (85) 100 05/17/20 03:00 115/70 05/17/20 02:45 96 17 45 05/17/20 02:30 95 16 114/70 (85) 100 05/17/20 02:17 108/66 05/17/20 02:00 98 17 108/64 (79) 100 05/17/20 01:30 95 17 113/76 (88) 100 05/17/20 01:00 89 16 113/70 (84) 100 05/17/20 00:30 94 16 130/79 (96) 100 05/17/20 00:15 87 131/80 05/17/20 00:00 45 05/17/20 00:00 Mechanical Ventilator 05/17/20 00:00 98 05/17/20 00:00 99.6 82 14 136/76 (96) 100 05/16/20 23:30 80 15 140/75 (96) 100 05/16/20 23:00 82 15 139/77 (97) 100 05/16/20 23:00 139/77 05/16/20 22:54 96 19 45 05/16/20 22:37 100.5 05/16/20 22:30 98 17 113/72 (86) 100 05/16/20 22:00 148/79 05/16/20 22:00 84 16 148/79 (102) 100 05/16/20 21:30 101.3 87 17 132/76 (94) 100 05/16/20 21:00 82 16 137/80 (99) 100 05/16/20 21:00 137/80 05/16/20 20:30 91 18 137/77 (97) 100 05/16/20 20:00 45 05/16/20 20:00 101.0 103 18 129/71 (90) 100 05/16/20 20:00 129/71 05/16/20 20:00 Mechanical Ventilator 05/16/20 19:30 101 17 130/71 (90) 100 05/16/20 19:00 114/70 05/16/20 19:00 122 22 118/66 (83) 100 05/16/20 18:56 122 20 45 05/16/20 18:30 124 21 111/71 (84) 100 05/16/20 18:00 104/70 05/16/20 18:00 120 20 104/70 (81) 100 05/16/20 17:30 123 21 109/72 (84) 100 05/16/20 17:00 121/71 05/16/20 17:00 109 19 121/71 (88) 100 05/16/20 16:30 109 18 117/73 (88) 100 05/16/20 16:00 112 05/16/20 16:00 Mechanical Ventilator 05/16/20 16:00 115/70 05/16/20 16:00 45 05/16/20 16:00 99.1 118 18 115/70 (85) 100 05/16/20 15:30 117 19 109/69 (82) 100 05/16/20 15:20 113 20 45 05/16/20 15:00 110 20 100/65 (77) 100 05/16/20 15:00 100/65 05/16/20 14:30 127 23 100/63 (75) 100 05/16/20 14:10 147 05/16/20 14:00 137 21 104/67 (79) 100 05/16/20 14:00 104/67 05/16/20 13:45 91 16 100/70 (80) 99 05/16/20 13:30 104/57 05/16/20 13:30 91 16 105/64 (78) 100 05/16/20 13:15 93 18 114/65 (81) 100 05/16/20 13:00 114/65 05/16/20 13:00 90 21 68/42 (51) 100 05/16/20 12:45 107/73 05/16/20 12:45 99 20 121/70 (87) 100 05/16/20 12:30 99 20 127/73 (91) 100 05/16/20 12:15 93 18 107/73 (84) 100 05/16/20 12:06 93 05/16/20 12:00 45 05/16/20 12:00 Mechanical Ventilator 05/16/20 12:00 96 05/16/20 12:00 99.8 95 17 111/70 (84) 100 05/16/20 11:45 95 18 116/71 (86) 100 05/16/20 11:45 116/71 05/16/20 11:30 94 17 122/71 (88) 100 05/16/20 11:23 101 19 45 05/16/20 11:00 102 16 118/73 (88) 100 05/16/20 11:00 115/74 Intake and Output 05/16/20 05/17/20 19:00 07:00 Intake Total 1830.670 ml 989.94 ml Output Total 1075 ml 1130 ml Balance 755.670 ml -140.06 ml IV Total 1830.670 ml 989.94 ml Output Urine Total 1075 ml 1130 ml # Bowel Movements 2 3 General Appearance: no acute distress HEENT: normocephalic Respiratory: chest wall non-tender, lungs clear Cardiovascular: normal peripheral pulses, normal rate Abdomen: normal bowel sounds Microbiology Date/Time Source Procedure Growth Status 05/14/20 19:35 Blood Blood Culture - Preliminary NO GROWTH AFTER 48 HOURS Resulted 05/14/20 19:20 Blood Blood Culture - Preliminary Gram Positive Cocci Resulted 05/16/20 00:15 Sputum Gram Stain - Final Resulted 05/16/20 00:15 Sputum Culture - Preliminary Gram Negative Bacillus 1 Usual Respiratory Luz Elena Resulted 05/14/20 19:40 Nasopharynx SARS-CoV-2 RdRp Gene Assay - Final Complete 05/14/20 21:30 Urine,Clean Catch Urine Culture - Preliminary Gram Negative Bacillus 1 Resulted Laboratory Tests 05/17/20 03:45: White Blood Count 18.5H, Red Blood Count 3.46L, Hemoglobin 10.6L, Hematocrit 31.4#L, Mean Corpuscular Volume 91, Mean Corpuscular Hemoglobin 30.8, Mean Corpuscular Hemoglobin Concent 33.9, Red Cell Distribution Width 12.8, Platelet Count 64L, Mean Platelet Volume 14.2H, Neutrophils (%) (Auto) , Lymphocytes (%) (Auto) , Monocytes (%) (Auto) , Eosinophils (%) (Auto) , Basophils (%) (Auto) , Differential Total Cells Counted 100, Neutrophils % (Manual) 86H, Lymphocytes % (Manual) 5L, Monocytes % (Manual) 1, Eosinophils % (Manual) 0, Basophils % ( Manual) 0, Band Neutrophils 8, Platelet Estimate DecreasedL, Platelet Morphology , Giant Platelets Occasional, Hypochromasia 1+, Sodium Level 151H, Potassium Level 3.3L, Chloride Level 116H, Carbon Dioxide Level 21, Anion Gap 14 , Blood Urea Nitrogen 66H, Creatinine 1.5H, Estimat Glomerular Filtration Rate 34.2, Glucose Level 155H, Calcium Level 9.2, Phosphorus Level 4.1, Magnesium Level 2.3, Total Bilirubin 1.1H, Direct Bilirubin 0.2, Aspartate Amino Transf ( AST/SGOT) 70H, Alanine Aminotransferase (ALT/SGPT) 58, Alkaline Phosphatase 50, Troponin I 0.700H, Pro-B-Type Natriuretic Peptide 73014U, Total Protein 5.4L, Albumin 1.9L, Globulin 3.5, Albumin/Globulin Ratio 0.5L, Digoxin Level 1.3 Current Medications Medications (Trade) Dose Ordered Sig/Morgan Route PRN Reason Start Time Stop Time Status Last Admin Dose Admin Acetaminophen (Tylenol) 650 mg Q4H PRN GT Temp >100.5 05/16/20 06:15 06/15/20 06:14 05/16/20 08:46 Acetaminophen (Tylenol) 650 mg Q4H PRN RECTAL Temp >100.5 05/16/20 19:45 06/15/20 19:44 05/16/20 22:07 Cefepime HCl 2 gm/ Sodium Chloride 110 ml @ 220 mls/hr Q24H IV 05/17/20 09:00 05/24/20 08:59 05/17/20 10:06 Chlorhexidine Gluconate (Lilliam-Hex 2%) 1 applic DAILY@2000 TOPIC 05/15/20 20:00 08/13/20 19:59 05/16/20 19:53 Dexamethasone Sodium Phosphate (Decadron 10mg/ ml Inj) 6 mg DAILY IV 05/16/20 09:00 05/24/20 08:59 05/17/20 10:05 Dextrose (Dextrose 50%) 25 ml Q30M PRN IV Hypoglycemia 05/15/20 18:00 08/13/20 17:59 Dextrose (Dextrose 50%) 50 ml Q30M PRN IV Hypoglycemia 05/15/20 18:00 08/13/20 17:59 Enoxaparin Sodium (Lovenox) 30 mg Q24H SUBQ 05/14/20 21:00 08/12/20 20:59 Insulin Aspart (NovoLOG) Q4HR SUBQ 05/15/20 21:00 08/13/20 20:59 05/17/20 10:52 Morphine Sulfate (Morphine Sulfate) 2 mg EVERY 3 HOURS PRN IVP Moderate Pain (Pain Scale 4-6) 05/14/20 20:15 05/21/20 20:14 Morphine Sulfate (Morphine Sulfate) 4 mg EVERY 3 HOURS PRN IVP Severe Pain (Pain Scale 7-10) 05/14/20 20:15 05/21/20 20:14 Norepinephrine Bitartrate 16 mg/ Dextrose 516 ml @ 0 mls/hr Q24H IV 05/14/20 23:30 06/13/20 23:29 05/17/20 02:17 Pantoprazole (Protonix) 40 mg DAILY IV 05/15/20 09:00 06/14/20 08:59 05/17/20 10:05 Phenylephrine HCl 100 mg/Dextrose 250 ml @ 0 mls/hr Q24H IV 05/15/20 00:15 06/14/20 00:14 05/15/20 13:28 Sodium Chloride 1,000 ml @ 75 mls/hr [id number] IV 05/15/20 06:45 06/14/20 06:44 05/17/20 10:52 Vancomycin HCl (Vanco pharmacy to dose) 1 ea DAILY PRN MISC VANCOMYCIN 05/14/20 21:00 06/13/20 20:59 Vasopressin 100 units/Sodium Chloride 100 ml @ 0 mls/hr Q24H IV 05/15/20 00:15 06/14/20 00:14 Assessment/Plan Assessment/Plan IMPRESSION: 1. Acute respiratory failure. 2. Diabetes mellitus with hyperglycemia. 3. Septic shock. 4. Chronic G-tube. 5. Decubitus. 6. History of CHF. DISCUSSION: The patient is critically ill. Continue insulin. IV fluids to be given with hypotonic solutions. Broad-spectrum antibiotics. Pressors. Continue AC mode till stable. DVT and GI prophylaxis. Respiratory precautions due to COVID-[address] Wade. I will follow carefully. Has respiratory alkalosis; consider adding sedatives (On AC 12, measured f =34) Richard James Omar Syed MD May 17, 2020 10:56
--- NOTE | 2020-05-17 11:15 | Consultation ---
DATE OF CONSULTATION: 05/17/2020 CHIEF COMPLAINT: Malfunctioning G-tube. HISTORY OF PRESENT ILLNESS: Most of history per chart. This is a 70-year-old patient from a long-term with multiple medical problems, which I will dictate in a second admitted to the hospital mainly for sepsis, COVID positive pneumonia, respiratory distress, dysphagia. GI consult requested for evaluation of the G-tube site given the balloon was seen at the G-tube site. PAST MEDICAL HISTORY: 1. History of CVA. 2. Dementia. 3. Dysphagia with G-tube. 4. Cachexia. 5. Diabetes. 6. Pressure ulcers. 7. Hypothyroidism. 8. Legal blindness. 9. Currently COVID positive. ALLERGIES: Divalproex sodium and penicillin. MEDICATIONS: Please see medication reconciliation list. SOCIAL HISTORY: Currently lives in a long-term. No recent history of tobacco, alcohol, or drug abuse. FAMILY HISTORY: Noncontributory. REVIEW OF SYSTEMS: Unable to obtain. PHYSICAL EXAMINATION: VITAL SIGNS: T-max is 101, T-currently 99.6, pulse 88, respirations 16, blood pressure 99/63. HEENT: Normocephalic and atraumatic. Sclerae are anicteric. NECK: Supple. No evidence of obvious lymphadenopathy. CARDIOVASCULAR: Tachy, regular. Plus S1, S2. LUNGS: Decreased breath sounds bilaterally and diffusely. ABDOMEN: Soft and nontender. G-tube site in place, but there is significant leakage and balloon can be seen under the skin. EXTREMITIES: No cyanosis, no clubbing, no edema. LABORATORY DATA: White count is 18,000, hemoglobin 10, hematocrit 31, platelet count is 64. Sodium 151, potassium 3.3, BUN is 66, creatinine 1.5. Troponin 3.4 on admission. ASSESSMENT: This is a 70-year-old patient with numerous medical problems, currently in ICU, respiratory distress, acute myocardial infarction with elevated troponin, septic, thrombocytopenic, malfunctioning G-tube. PLAN: We will remove the G-tube at the bedside under the skin since the balloon can be seen so most probably misplacement, it is not in the right place anymore. We are going to let the patient to recover from her current medical condition including sepsis and myocardial infarction. If the site closes nicely, which I would expect happen within day or 2, then we going to place an NG tube and feed her through NG-tube until the patient is more stable for getting another PEG. I want to thank, Dr. Wade for this kind referral. Jhon Richard Matos DR: Jasson JOB#: [id number] CC: Jessica Wade MD
--- NOTE | 2020-05-17 11:53 | Cardiac Electrophysiology PN ---
Assessment/Plan Assessment/Plan 1. [id number] myocardial infarction. Her troponin was 1.258,1.2,1.9, 3.4.Troponin this AM is 0.7 EKG does not show any acute ST-T wave abnormality and certainly no ST elevation. This is likely precipitated by septic shock as the patient is on pressors as well as Renal failure. The echocardiogram had poor windows. Will repeat after off the Vent 2. Atrial fibrillation with rapid ventricular response. The patient had DCCV 3 times and can contribute to the patient's elevated troponin. No more fib or accelerated junctional rhythm. Cannot use beta-ramakrishna or calcium-channel ramakrishna as the patient is still hypotensive, on Levophed. Loaded with digoxin and dig level today is 1.6 3. Septic shock. The patient is on Levophed 12 mcg as well as broad-spectrum antibiotic with vancomycin and cefepime. 4. Severe hypernatremia with sodium of 174, BUN of 131, creatinine 2.7 due to dehydration. Sodium today is 155 with BUN of 91 and creatinine of 1.9 with IV fluids. 5. Lactic acidosis, septic shock, on antibiotic. 6. Dysphagia, status post PEG placement. 7. History of CVA and dementia. 8. Respiratory failure, currently on the ventilator at 50% FiO2. DW RN and Dr Wade Subjective Subjective In SR with no atrial fib or Junctional tach overnight. Got 0.5 iv Digoxin Objective Last 24 Hour Vital Signs Date Time Temp Pulse Resp B/P (MAP) Pulse Ox O2 Delivery O2 Flow Rate FiO2 05/17/20 11:00 95 18 96/58 (71) 100 05/17/20 10:30 89 17 101/66 (78) 100 05/17/20 10:00 87 16 105/64 (78) 100 05/17/20 09:30 84 17 96/63 (74) 100 05/17/20 09:00 88 17 101/62 (75) 100 05/17/20 08:30 84 15 97/64 (75) 100 05/17/20 08:00 98.8 84 16 107/65 (79) 100 05/17/20 08:00 Mechanical Ventilator 05/17/20 08:00 40 05/17/20 07:30 88 16 99/63 (75) 100 05/17/20 07:22 89 14 40 05/17/20 07:15 87 16 103/62 (76) 100 05/17/20 07:00 102/60 05/17/20 07:00 87 16 94/61 (72) 100 05/17/20 06:45 88 17 99/59 (72) 100 05/17/20 06:30 87 20 05/17/20 06:30 88 15 95/60 (72) 100 05/17/20 06:15 86 17 96/60 (72) 100 05/17/20 06:00 96/60 05/17/20 06:00 99.6 87 17 95/57 (70) 100 05/17/20 05:30 98 18 103/67 (79) 100 05/17/20 05:00 93 16 100/61 (74) 100 05/17/20 05:00 100/61 05/17/20 04:30 90 16 94/60 (71) 100 05/17/20 04:00 45 05/17/20 04:00 101.0 97 18 97/62 (74) 100 05/17/20 04:00 94 05/17/20 04:00 110/60 05/17/20 04:00 Mechanical Ventilator 05/17/20 03:30 88 16 115/69 (84) 100 05/17/20 03:00 98 16 118/68 (85) 100 05/17/20 03:00 115/70 05/17/20 02:45 96 17 45 05/17/20 02:30 95 16 114/70 (85) 100 05/17/20 02:17 108/66 05/17/20 02:00 98 17 108/64 (79) 100 05/17/20 01:30 95 17 113/76 (88) 100 05/17/20 01:00 89 16 113/70 (84) 100 05/17/20 00:30 94 16 130/79 (96) 100 05/17/20 00:15 87 131/80 05/17/20 00:00 45 05/17/20 00:00 Mechanical Ventilator 05/17/20 00:00 98 05/17/20 00:00 99.6 82 14 136/76 (96) 100 05/16/20 23:30 80 15 140/75 (96) 100 05/16/20 23:00 82 15 139/77 (97) 100 05/16/20 23:00 139/77 9/7/20 22:54 96 19 45 05/16/20 22:37 100.5 05/16/20 22:30 98 17 113/72 (86) 100 05/16/20 22:00 148/79 05/16/20 22:00 84 16 148/79 (102) 100 05/16/20 21:30 101.3 87 17 132/76 (94) 100 05/16/20 21:00 82 16 137/80 (99) 100 05/16/20 21:00 137/80 05/16/20 20:30 91 18 137/77 (97) 100 05/16/20 20:00 45 05/16/20 20:00 101.0 103 18 129/71 (90) 100 05/16/20 20:00 129/71 05/16/20 20:00 Mechanical Ventilator 05/16/20 19:30 101 17 130/71 (90) 100 05/16/20 19:00 114/70 05/16/20 19:00 122 22 118/66 (83) 100 05/16/20 18:56 122 20 45 05/16/20 18:30 124 21 111/71 (84) 100 05/16/20 18:00 104/70 05/16/20 18:00 120 20 104/70 (81) 100 05/16/20 17:30 123 21 109/72 (84) 100 05/16/20 17:00 121/71 05/16/20 17:00 109 19 121/71 (88) 100 05/16/20 16:30 109 18 117/73 (88) 100 05/16/20 16:00 112 05/16/20 16:00 Mechanical Ventilator 05/16/20 16:00 115/70 05/16/20 16:00 45 05/16/20 16:00 99.1 118 18 115/70 (85) 100 05/16/20 15:30 117 19 109/69 (82) 100 05/16/20 15:20 113 20 45 05/16/20 15:00 110 20 100/65 (77) 100 05/16/20 15:00 100/65 05/16/20 14:30 127 23 100/63 (75) 100 05/16/20 14:10 147 05/16/20 14:00 137 21 104/67 (79) 100 05/16/20 14:00 104/67 05/16/20 13:45 91 16 100/70 (80) 99 05/16/20 13:30 104/57 05/16/20 13:30 91 16 105/64 (78) 100 05/16/20 13:15 93 18 114/65 (81) 100 05/16/20 13:00 114/65 05/16/20 13:00 90 21 68/42 (51) 100 05/16/20 12:45 107/73 05/16/20 12:45 99 20 121/70 (87) 100 05/16/20 12:30 99 20 127/73 (91) 100 05/16/20 12:15 93 18 107/73 (84) 100 05/16/20 12:06 93 05/16/20 12:00 45 05/16/20 12:00 Mechanical Ventilator 05/16/20 12:00 96 05/16/20 12:00 99.8 95 17 111/70 (84) 100 Intake and Output 05/16/20 05/17/20 19:00 07:00 Intake Total 1830.670 ml 989.94 ml Output Total 1075 ml 1130 ml Balance 755.670 ml -140.06 ml IV Total 1830.670 ml 989.94 ml Output Urine Total 1075 ml 1130 ml # Bowel Movements 2 3 Laboratory Tests Test 05/17/20 03:45 White Blood Count 18.5 K/UL (4.8-10.8) H Red Blood Count 3.46 M/UL (4.20-5.40) L Hemoglobin 10.6 G/DL (12.0-16.0) L Hematocrit 31.4 % (37.0-47.0) #L Mean Corpuscular Volume 91 FL (80-99) Mean Corpuscular Hemoglobin 30.8 PG (27.0-31.0) Mean Corpuscular Hemoglobin Concent 33.9 G/DL (32.0-36.0) Red Cell Distribution Width 12.8 % (11.6-14.8) Platelet Count 64 K/UL (150-450) L Mean Platelet Volume 14.2 FL (6.5-10.1) H Neutrophils (%) (Auto) % (45.0-75.0) Lymphocytes (%) (Auto) % (20.0-45.0) Monocytes (%) (Auto) % (1.0-10.0) Eosinophils (%) (Auto) % (0.0-3.0) Basophils (%) (Auto) % (0.0-2.0) Differential Total Cells Counted 100 Neutrophils % (Manual) 86 % (45-75) H Lymphocytes % (Manual) 5 % (20-45) L Monocytes % (Manual) 1 % (1-10) Eosinophils % (Manual) 0 % (0-3) Basophils % (Manual) 0 % (0-2) Band Neutrophils 8 % (0-8) Platelet Estimate Decreased L Platelet Morphology Giant Platelets Occasional Hypochromasia 1+ Sodium Level 151 MMOL/L (136-145) H Potassium Level 3.3 MMOL/L (3.5-5.1) L Chloride Level 116 MMOL/L (98-107) H Carbon Dioxide Level 21 MMOL/L (21-32) Anion Gap 14 mmol/L (5-15) Blood Urea Nitrogen 66 mg/dL (7-18) H Creatinine 1.5 MG/DL (0.55-1.30) H Estimat Glomerular Filtration Rate 34.2 mL/min (>60) Glucose Level 155 MG/DL (74-106) H Calcium Level 9.2 MG/DL (8.5-10.1) Phosphorus Level 4.1 MG/DL (2.5-4.9) Magnesium Level 2.3 MG/DL (1.8-2.4) Total Bilirubin 1.1 MG/DL (0.2-1.0) H Direct Bilirubin 0.2 MG/DL (0.0-0.3) Aspartate Amino Transf (AST/SGOT) 70 U/L (15-37) H Alanine Aminotransferase (ALT/SGPT) 58 U/L (12-78) Alkaline Phosphatase 50 U/L (46-116) Troponin I 0.700 ng/mL (0.000-0.056) Pro-B-Type Natriuretic Peptide 34675 pg/mL (0-125) H Total Protein 5.4 G/DL (6.4-8.2) L Albumin 1.9 G/DL (3.4-5.0) L Globulin 3.5 g/dL Albumin/Globulin Ratio 0.5 (1.0-2.7) L Digoxin Level 1.3 NG/ML (0.9-2.0) Microbiology Date/Time Source Procedure Growth Status 05/14/20 19:35 Blood Blood Culture - Preliminary NO GROWTH AFTER 48 HOURS Resulted 05/14/20 19:20 Blood Blood Culture - Preliminary Gram Positive Cocci Resulted 05/16/20 00:15 Sputum Gram Stain - Final Resulted 05/16/20 00:15 Sputum Culture - Preliminary Gram Negative Bacillus 1 Usual Respiratory Luz Elena Resulted 05/14/20 19:40 Nasopharynx SARS-CoV-2 RdRp Gene Assay - Final Complete 05/14/20 21:30 Urine,Clean Catch Urine Culture - Preliminary Gram Negative Bacillus 1 Resulted Objective HEAD AND NECK: Show no JVD. She is orally intubated. LUNGS: Coarse rhonchi. CARDIOVASCULAR: Shows regular S1 and S2 with no gallop. ABDOMEN: Soft. Status post G-tube. EXTREMITIES: Show no pitting edema. Norman Morillo MD May 17, 2020 11:53
--- NOTE | 2020-05-17 12:00 | NUR ---
NURSE NOTES: Levophed drip was titrated up to 14mcg/min to maintain SBP above 90.
--- NOTE | 2020-05-17 12:23 | Infectious Diseases Prog Note ---
Assessment/Plan 70 yo female with PMHx of Dementia, DM, CVA ( S/P PEG), COVID 19 infection and pressure ulcers. Septic Shock vs cardiogenic vs combination; pressors requirements improving UTI, PNA, Other Gram positive bacteremia- ?real vs contaminant -05/14 Bcx 1/4 GPC UTI UA (+); ucx 10-20k GNR Probable left sided PNA, superimposed bacterial CXR 05/14/20 showed Retrocardiac atelectasis/infiltrate with Pulmonary venous congestion. sp cx GNR Hx of COVID 19 - Bacteria secondary infection? Asp PNA? COVID 19 tested Pos OSF - about 3 week ago -still positive Rapid COVID PCR 05/14 Resp Fail Intuabted on Vent Leukocytosis; improving Fever SVT -sp cardioversion Hyperglycemia Dementia DM Hx CVA ( S/P PEG) pressure ulcers PLAN - Switch Cefepime #4 to Meropenem empiric Vancomcyin #4 for GPC bacteremia - Reasonable to hold Azithmycin given cardiac issues and lack of clear evidence for PNA - On Decadron #4 per pulm - f/u Cultures - Monitor CBC and Temps -Bcx x2 Thank you for consulting [facility]. Will continue to follow along with you. Discussed with RN. Subjective Allergies: Coded Allergies: DIVALPROEX SODIUM (Verified Allergy, Unknown, 05/14/20) PENICILLINS (Verified Allergy, Unknown, 05/14/20) Tm 101 Fio2 40% wbc and cr improving off ivelisse, vaso; on levophed at 10 bacteremic Objective Last 24 Hour Vital Signs Date Time Temp Pulse Resp B/P (MAP) Pulse Ox O2 Delivery O2 Flow Rate FiO2 05/17/20 11:00 95 18 96/58 (71) 100 05/17/20 10:30 89 17 101/66 (78) 100 05/17/20 10:30 101 20 40 05/17/20 10:00 87 16 105/64 (78) 100 05/17/20 09:30 84 17 96/63 (74) 100 05/17/20 09:00 88 17 101/62 (75) 100 05/17/20 08:30 84 15 97/64 (75) 100 05/17/20 08:00 98.8 84 16 107/65 (79) 100 05/17/20 08:00 Mechanical Ventilator 05/17/20 08:00 40 05/17/20 07:30 88 16 99/63 (75) 100 05/17/20 07:22 89 14 40 05/17/20 07:15 87 16 103/62 (76) 100 05/17/20 07:00 102/60 05/17/20 07:00 87 16 94/61 (72) 100 05/17/20 06:45 88 17 99/59 (72) 100 05/17/20 06:30 87 20 05/17/20 06:30 88 15 95/60 (72) 100 05/17/20 06:15 86 17 96/60 (72) 100 05/17/20 06:00 96/60 05/17/20 06:00 99.6 87 17 95/57 (70) 100 05/17/20 05:30 98 18 103/67 (79) 100 05/17/20 05:00 93 16 100/61 (74) 100 05/17/20 05:00 100/61 05/17/20 04:30 90 16 94/60 (71) 100 05/17/20 04:00 45 05/17/20 04:00 101.0 97 18 97/62 (74) 100 05/17/20 04:00 94 05/17/20 04:00 110/60 05/17/20 04:00 Mechanical Ventilator 05/17/20 03:30 88 16 115/69 (84) 100 05/17/20 03:00 98 16 118/68 (85) 100 05/17/20 03:00 115/70 05/17/20 02:45 96 17 45 05/17/20 02:30 95 16 114/70 (85) 100 05/17/20 02:17 108/66 05/17/20 02:00 98 17 108/64 (79) 100 05/17/20 01:30 95 17 113/76 (88) 100 05/17/20 01:00 89 16 113/70 (84) 100 05/17/20 00:30 94 16 130/79 (96) 100 05/17/20 00:15 87 131/80 05/17/20 00:00 45 05/17/20 00:00 Mechanical Ventilator 05/17/20 00:00 98 05/17/20 00:00 99.6 82 14 136/76 (96) 100 05/16/20 23:30 80 15 140/75 (96) 100 05/16/20 23:00 82 15 139/77 (97) 100 05/16/20 23:00 139/77 05/16/20 22:54 96 19 45 05/16/20 22:37 100.5 05/16/20 22:30 98 17 113/72 (86) 100 05/16/20 22:00 148/79 05/16/20 22:00 84 16 148/79 (102) 100 05/16/20 21:30 101.3 87 17 132/76 (94) 100 05/16/20 21:00 82 16 137/80 (99) 100 05/16/20 21:00 137/80 05/16/20 20:30 91 18 137/77 (97) 100 05/16/20 20:00 45 05/16/20 20:00 101.0 103 18 129/71 (90) 100 05/16/20 20:00 129/71 05/16/20 20:00 Mechanical Ventilator 05/16/20 19:30 101 17 130/71 (90) 100 05/16/20 19:00 114/70 05/16/20 19:00 122 22 118/66 (83) 100 05/16/20 18:56 122 20 45 05/16/20 18:30 124 21 111/71 (84) 100 05/16/20 18:00 104/70 05/16/20 18:00 120 20 104/70 (81) 100 05/16/20 17:30 123 21 109/72 (84) 100 05/16/20 17:00 121/71 05/16/20 17:00 109 19 121/71 (88) 100 05/16/20 16:30 109 18 117/73 (88) 100 05/16/20 16:00 112 05/16/20 16:00 Mechanical Ventilator 05/16/20 16:00 115/70 05/16/20 16:00 45 05/16/20 16:00 99.1 118 18 115/70 (85) 100 05/16/20 15:30 117 19 109/69 (82) 100 05/16/20 15:20 113 20 45 05/16/20 15:00 110 20 100/65 (77) 100 05/16/20 15:00 100/65 97/20 14:30 127 23 100/63 (75) 100 05/16/20 14:10 147 05/16/20 14:00 137 21 104/67 (79) 100 05/16/20 14:00 104/67 05/16/20 13:45 91 16 100/70 (80) 99 05/16/20 13:30 104/57 05/16/20 13:30 91 16 105/64 (78) 100 05/16/20 13:15 93 18 114/65 (81) 100 05/16/20 13:00 114/65 05/16/20 13:00 90 21 68/42 (51) 100 05/16/20 12:45 107/73 05/16/20 12:45 99 20 121/70 (87) 100 05/16/20 12:30 99 20 127/73 (91) 100 05/16/20 12:15 93 18 107/73 (84) 100 Height (Feet): 5 Height (Inches): 4.00 Weight (Pounds): 149 GEN: On Vent HEENT: NCAT, MMM, Intubated Pulm: Equal rise and fall B/L ABD: Soft, ND, PEG (No e/p) Neuro: Not following, Intubated SKIN: Exposed skin with no rash, Normal in color Microbiology Date/Time Source Procedure Growth Status 05/14/20 19:35 Blood Blood Culture - Preliminary NO GROWTH AFTER 48 HOURS Resulted 05/14/20 19:20 Blood Blood Culture - Preliminary Gram Positive Cocci Resulted 05/16/20 00:15 Sputum Gram Stain - Final Resulted 05/16/20 00:15 Sputum Culture - Preliminary Gram Negative Bacillus 1 Usual Respiratory Luz Elena Resulted 05/14/20 19:40 Nasopharynx SARS-CoV-2 RdRp Gene Assay - Final Complete 05/14/20 21:30 Urine,Clean Catch Urine Culture - Preliminary Gram Negative Bacillus 1 Resulted Laboratory Tests Test 05/17/20 03:45 White Blood Count 18.5 K/UL (4.8-10.8) H Red Blood Count 3.46 M/UL (4.20-5.40) L Hemoglobin 10.6 G/DL (12.0-16.0) L Hematocrit 31.4 % (37.0-47.0) #L Mean Corpuscular Volume 91 FL (80-99) Mean Corpuscular Hemoglobin 30.8 PG (27.0-31.0) Mean Corpuscular Hemoglobin Concent 33.9 G/DL (32.0-36.0) Red Cell Distribution Width 12.8 % (11.6-14.8) Platelet Count 64 K/UL (150-450) L Mean Platelet Volume 14.2 FL (6.5-10.1) H Neutrophils (%) (Auto) % (45.0-75.0) Lymphocytes (%) (Auto) % (20.0-45.0) Monocytes (%) (Auto) % (1.0-10.0) Eosinophils (%) (Auto) % (0.0-3.0) Basophils (%) (Auto) % (0.0-2.0) Differential Total Cells Counted 100 Neutrophils % (Manual) 86 % (45-75) H Lymphocytes % (Manual) 5 % (20-45) L Monocytes % (Manual) 1 % (1-10) Eosinophils % (Manual) 0 % (0-3) Basophils % (Manual) 0 % (0-2) Band Neutrophils 8 % (0-8) Platelet Estimate Decreased L Platelet Morphology Giant Platelets Occasional Hypochromasia 1+ Sodium Level 151 MMOL/L (136-145) H Potassium Level 3.3 MMOL/L (3.5-5.1) L Chloride Level 116 MMOL/L (98-107) H Carbon Dioxide Level 21 MMOL/L (21-32) Anion Gap 14 mmol/L (5-15) Blood Urea Nitrogen 66 mg/dL (7-18) H Creatinine 1.5 MG/DL (0.55-1.30) H Estimat Glomerular Filtration Rate 34.2 mL/min (>60) Glucose Level 155 MG/DL (74-106) H Calcium Level 9.2 MG/DL (8.5-10.1) Phosphorus Level 4.1 MG/DL (2.5-4.9) Magnesium Level 2.3 MG/DL (1.8-2.4) Total Bilirubin 1.1 MG/DL (0.2-1.0) H Direct Bilirubin 0.2 MG/DL (0.0-0.3) Aspartate Amino Transf (AST/SGOT) 70 U/L (15-37) H Alanine Aminotransferase (ALT/SGPT) 58 U/L (12-78) Alkaline Phosphatase 50 U/L (46-116) Troponin I 0.700 ng/mL (0.000-0.056) Pro-B-Type Natriuretic Peptide 01878 pg/mL (0-125) H Total Protein 5.4 G/DL (6.4-8.2) L Albumin 1.9 G/DL (3.4-5.0) L Globulin 3.5 g/dL Albumin/Globulin Ratio 0.5 (1.0-2.7) L Digoxin Level 1.3 NG/ML (0.9-2.0) Current Medications Medications (Trade) Dose Ordered Sig/Morgan Route PRN Reason Start Time Stop Time Status Last Admin Dose Admin Acetaminophen (Tylenol) 650 mg Q4H PRN GT Temp >100.5 05/16/20 06:15 06/15/20 06:14 05/16/20 08:46 Acetaminophen (Tylenol) 650 mg Q4H PRN RECTAL Temp >100.5 05/16/20 19:45 06/15/20 19:44 05/16/20 22:07 Cefepime HCl 2 gm/ Sodium Chloride 110 ml @ 220 mls/hr Q24H IV 05/17/20 09:00 05/24/20 08:59 05/17/20 10:06 Chlorhexidine Gluconate (Lilliam-Hex 2%) 1 applic DAILY@2000 TOPIC 05/15/20 20:00 08/13/20 19:59 05/16/20 19:53 Dexamethasone Sodium Phosphate (Decadron 10mg/ ml Inj) 6 mg DAILY IV 05/16/20 09:00 05/24/20 08:59 05/17/20 10:05 Dextrose (Dextrose 50%) 25 ml Q30M PRN IV Hypoglycemia 05/15/20 18:00 08/13/20 17:59 Dextrose (Dextrose 50%) 50 ml Q30M PRN IV Hypoglycemia 05/15/20 18:00 08/13/20 17:59 Enoxaparin Sodium (Lovenox) 30 mg Q24H SUBQ 05/14/20 21:00 08/12/20 20:59 Insulin Aspart (NovoLOG) Q4HR SUBQ 05/15/20 21:00 08/13/20 20:59 05/17/20 10:52 Morphine Sulfate (Morphine Sulfate) 2 mg EVERY 3 HOURS PRN IVP Moderate Pain (Pain Scale 4-6) 05/14/20 20:15 05/21/20 20:14 Morphine Sulfate (Morphine Sulfate) 4 mg EVERY 3 HOURS PRN IVP Severe Pain (Pain Scale 7-10) 05/14/20 20:15 05/21/20 20:14 Norepinephrine Bitartrate 16 mg/ Dextrose 516 ml @ 0 mls/hr Q24H IV 05/14/20 23:30 06/13/20 23:29 05/17/20 02:17 Pantoprazole (Protonix) 40 mg DAILY IV 05/15/20 09:00 06/14/20 08:59 05/17/20 10:05 Phenylephrine HCl 100 mg/Dextrose 250 ml @ 0 mls/hr Q24H IV 05/15/20 00:15 06/14/20 00:14 05/15/20 13:28 Sodium Chloride 1,000 ml @ 75 mls/hr [id number] IV 05/15/20 06:45 06/14/20 06:44 05/17/20 10:52 Vancomycin HCl ([facility]anco pharmacy to dose) 1 ea DAILY PRN MISC VANCOMYCIN 05/14/20 21:00 06/13/20 20:59 Vasopressin 100 units/Sodium Chloride 100 ml @ 0 mls/hr Q24H IV 05/15/20 00:15 06/14/20 00:14 Yomaira Terry M.D. May 17, 2020 12:23
--- NOTE | 2020-05-17 12:30 | NUR ---
NURSE NOTES: Pt was seen and assessed by Dr. Wade at bedside. MD notified regarding pt's current status and lab results. Per MD, order will be placed to replace the electrolytes as needed.
--- NOTE | 2020-05-17 12:45 | NUR ---
NURSE NOTES: Dr. Morillo is at the nurse's station; was updated on pt's current status and Levophed titration increased to maintain SBP above 90. No new orders were received at this time.
--- NOTE | 2020-05-17 12:57 | General Progress Note ---
Assessment/Plan Status: unchanged Assessment/Plan: 70-year-old female history of dementia, cachexia, dysphasia G-tube dependent feeding presents for evaluation of rapid heart rate and hypotension. # Septic shock Etiology COVID 19 vs UTI vs bacteremia Bcx POSITIVE WITH G+ Cocci and U cx 05/14 NGT Continue Vancomycin, Cefepime, per Dr. Romeo from ID. Dexamethasone due to hypoxia # 3 Leukocytosis today most likely due to steroids # Acute respiratory failure Intubated ICU care appreciated Dr. Enriquez consulted Serial CXR is stable today and ventilator management per ICU-pulmonary FiO2 40 % today. wean as tolerated. # SVT vs A. Flutter s/p DC x 3 HR is controlled in the [address] Levophed/Neosyn Cardiology consultation Dr. Morillo requested and TTE requested. Troponin 3.4 now 0.7 # AG metabolic acidosis Ddx lactic acidosis Improving. # Hyperglycemia r/o DKA ABG and Ketones ordered Endocrine consult with Dr. Shelley IV insulin gtt stopped last night and in SQ insulin coverage now # Hypernatremia Na 151 Monitor BMP IVF to 1/2 NS lower rate 75 cc hr # COVID 19 Positive on admission. Original infection > 15 days ago, do not qualify for Revdisimir or plasma Added Dexamethasone # 2 Contact and droplet isolation # Dysphagia PEG REMOVED 05/16 Carlo Vargas consulted and appreciate follow up and final plan for PEG replacement PENDING # Thrombocytopenia Platelets down from 80 K to 64 K Will dc heparin, use SCD, order US Liver, HIT Ab, HIV # Dementia Baseline # FULL CODE SW follow up to reach out to DPOA and consider change in code status due to high morbidity and risk of inpatient mortality. > 55 min spent in coordination of care and consultation with physicians and RN. Subjective Date patient seen: May 17, 2020 Time patient seen: 11:00 ROS Limited/Unobtainable: Yes Allergies: Coded Allergies: DIVALPROEX SODIUM (Verified Allergy, Unknown, 05/14/20) PENICILLINS (Verified Allergy, Unknown, 05/14/20) Subjective Non verbal, intubated Objective Last 24 Hour Vital Signs Date Time Temp Pulse Resp B/P (MAP) Pulse Ox O2 Delivery O2 Flow Rate FiO2 05/17/20 11:00 95 18 96/58 (71) 100 05/17/20 10:30 89 17 101/66 (78) 100 05/17/20 10:30 101 20 40 05/17/20 10:00 87 16 105/64 (78) 100 05/17/20 09:30 84 17 96/63 (74) 100 05/17/20 09:00 88 17 101/62 (75) 100 05/17/20 08:30 84 15 97/64 (75) 100 05/17/20 08:00 98.8 84 16 107/65 (79) 100 05/17/20 08:00 Mechanical Ventilator 05/17/20 08:00 40 05/17/20 07:30 88 16 99/63 (75) 100 05/17/20 07:22 89 14 40 05/17/20 07:15 87 16 103/62 (76) 100 05/17/20 07:00 102/60 05/17/20 07:00 87 16 94/61 (72) 100 05/17/20 06:45 88 17 99/59 (72) 100 05/17/20 06:30 87 20 05/17/20 06:30 88 15 95/60 (72) 100 05/17/20 06:15 86 17 96/60 (72) 100 05/17/20 06:00 96/60 05/17/20 06:00 99.6 87 17 95/57 (70) 100 05/17/20 05:30 98 18 103/67 (79) 100 05/17/20 05:00 93 16 100/61 (74) 100 05/17/20 05:00 100/61 05/17/20 04:30 90 16 94/60 (71) 100 05/17/20 04:00 45 05/17/20 04:00 101.0 97 18 97/62 (74) 100 05/17/20 04:00 94 05/17/20 04:00 110/60 05/17/20 04:00 Mechanical Ventilator 05/17/20 03:30 88 16 115/69 (84) 100 05/17/20 03:00 98 16 118/68 (85) 100 05/17/20 03:00 115/70 05/17/20 02:45 96 17 45 05/17/20 02:30 95 16 114/70 (85) 100 05/17/20 02:17 108/66 05/17/20 02:00 98 17 108/64 (79) 100 05/17/20 01:30 95 17 113/76 (88) 100 05/17/20 01:00 89 16 113/70 (84) 100 05/17/20 00:30 94 16 130/79 (96) 100 05/17/20 00:15 87 131/80 05/17/20 00:00 45 05/17/20 00:00 Mechanical Ventilator 05/17/20 00:00 98 05/17/20 00:00 99.6 82 14 136/76 (96) 100 05/16/20 23:30 80 15 140/75 (96) 100 05/16/20 23:00 82 15 139/77 (97) 100 05/16/20 23:00 139/77 05/16/20 22:54 96 19 45 05/16/20 22:37 100.5 05/16/20 22:30 98 17 113/72 (86) 100 05/16/20 22:00 148/79 05/16/20 22:00 84 16 148/79 (102) 100 05/16/20 21:30 101.3 87 17 132/76 (94) 100 05/16/20 21:00 82 16 137/80 (99) 100 05/16/20 21:00 137/80 05/16/20 20:30 91 18 137/77 (97) 100 05/16/20 20:00 45 05/16/20 20:00 101.0 103 18 129/71 (90) 100 05/16/20 20:00 129/71 05/16/20 20:00 Mechanical Ventilator 05/16/20 19:30 101 17 130/71 (90) 100 05/16/20 19:00 114/70 05/16/20 19:00 122 22 118/66 (83) 100 05/16/20 18:56 122 20 45 05/16/20 18:30 124 21 111/71 (84) 100 05/16/20 18:00 104/70 05/16/20 18:00 120 20 104/70 (81) 100 05/16/20 17:30 123 21 109/72 (84) 100 05/16/20 17:00 121/71 05/16/20 17:00 109 19 121/71 (88) 100 05/16/20 16:30 109 18 117/73 (88) 100 05/16/20 16:00 112 05/16/20 16:00 Mechanical Ventilator 05/16/20 16:00 115/70 05/16/20 16:00 45 05/16/20 16:00 99.1 118 18 115/70 (85) 100 05/16/20 15:30 117 19 109/69 (82) 100 05/16/20 15:20 113 20 45 05/16/20 15:00 110 20 100/65 (77) 100 05/16/20 15:00 100/65 05/16/20 14:30 127 23 100/63 (75) 100 05/16/20 14:10 147 05/16/20 14:00 137 21 104/67 (79) 100 05/16/20 14:00 104/67 05/16/20 13:45 91 16 100/70 (80) 99 05/16/20 13:30 104/57 05/16/20 13:30 91 16 105/64 (78) 100 05/16/20 13:15 93 18 114/65 (81) 100 05/16/20 13:00 114/65 05/16/20 13:00 90 21 68/42 (51) 100 Intake and Output 05/16/20 05/17/20 19:00 07:00 Intake Total 1830.670 ml 989.94 ml Output Total 1075 ml 1130 ml Balance 755.670 ml -140.06 ml IV Total 1830.670 ml 989.94 ml Output Urine Total 1075 ml 1130 ml # Bowel Movements 2 3 Laboratory Tests 05/17/20 03:45: White Blood Count 18.5H, Red Blood Count 3.46L, Hemoglobin 10.6L, Hematocrit 31.4#L, Mean Corpuscular Volume 91, Mean Corpuscular Hemoglobin 30.8, Mean Corpuscular Hemoglobin Concent 33.9, Red Cell Distribution Width 12.8, Platelet Count 64L, Mean Platelet Volume 14.2H, Neutrophils (%) (Auto) , Lymphocytes (%) (Auto) , Monocytes (%) (Auto) , Eosinophils (%) (Auto) , Basophils (%) (Auto) , Differential Total Cells Counted 100, Neutrophils % (Manual) 86H, Lymphocytes % (Manual) 5L, Monocytes % (Manual) 1, Eosinophils % (Manual) 0, Basophils % ( Manual) 0, Band Neutrophils 8, Platelet Estimate DecreasedL, Platelet Morphology , Giant Platelets Occasional, Hypochromasia 1+, Sodium Level 151H, Potassium Level 3.3L, Chloride Level 116H, Carbon Dioxide Level 21, Anion Gap 14 , Blood Urea Nitrogen 66H, Creatinine 1.5H, Estimat Glomerular Filtration Rate 34.2, Glucose Level 155H, Calcium Level 9.2, Phosphorus Level 4.1, Magnesium Level 2.3, Total Bilirubin 1.1H, Direct Bilirubin 0.2, Aspartate Amino Transf ( AST/SGOT) 70H, Alanine Aminotransferase (ALT/SGPT) 58, Alkaline Phosphatase 50, Troponin I 0.700H, Pro-B-Type Natriuretic Peptide 86206K, Total Protein 5.4L, Albumin 1.9L, Globulin 3.5, Albumin/Globulin Ratio 0.5L, Digoxin Level 1.3 Height (Feet): 5 Height (Inches): 4.00 Weight (Pounds): 149 General Appearance: WD/WN EENT: PERRL/EOMI Neck: non-tender Cardiovascular: normal rate Respiratory/Chest: decreased breath sounds Abdomen: other - peg was removed. dressing in place Neurologic: wearing apparel shaker II-XII grossly normal Jessica Wade MD May 17, 2020 12:57
--- NOTE | 2020-05-17 13:00 | NUR ---
NURSE NOTES: Levophed drip was titrated up to 16mcg/min to maintain SBP above 90.
--- NOTE | 2020-05-17 14:00 | NUR ---
NURSE NOTES: Pt was administered KCL 10meq IVPB x2 bags, 1st bag at 1300 and 2nd bag at 1400 to replace K Level=3.3 from this AM's labs. Was unable to scan barcode at bedside, manually documented administration of both KCL bags.
[2020-05-17] MEDS: Meropenem 1 GM in NS 55 ML IVPB SCH (14:56)
--- NOTE | 2020-05-17 16:00 | NUR ---
NURSE NOTES: Labs were drawn at bedside as ordered via central line, including blood culture. 2nd set of blood culture is to be drawn peripherally. Fabric Worker Leader is at bedside, attempted peripheral draw however without succuss; will reattempt later this afternoon/evening. Dr. Terry made aware.
[2020-05-17 17:26] LABS: ALANINE AMINOTRANSFERASE 60 U/L (12-78); ALBUMIN 2.1 G/DL (3.4-5.0); ALBUMIN/GLOBULIN RATIO 0.6 (1.0-2.7); ALKALINE PHOSPHATASE 45 U/L (46-116); ANION GAP 10 mmol/L (5-15); ASPARTATE AMINO TRANSFERASE 64 U/L (15-37); BILIRUBIN,TOTAL 1.1 MG/DL (0.2-1.0); BLOOD UREA NITROGEN 62 mg/dL (7-18); CALCIUM 9.3 MG/DL (8.5-10.1); CARBON DIOXIDE 24 MMOL/L (21-32); CHLORIDE 116 MMOL/L (98-107); CREATININE 1.5 MG/DL (0.55-1.30); POTASSIUM 3.9 MMOL/L (3.5-5.1); SODIUM 150 MMOL/L (136-145)
[2020-05-17 17:30] LABS: BILIRUBIN,DIRECT 0.2 MG/DL (0.0-0.3)
[2020-05-17] MEDS ORDERED: NS 500ML ONE (17:30)
[2020-05-17] MEDS ORDERED: 1/2 NS 1000ml IV ONE ×3 (17:30→18:01)
[2020-05-17] MEDS ORDERED: NS 275ml ONE ×2 (17:30→17:32)
[2020-05-17] MEDS ORDERED: D5W 275ml ONE (17:32)
[2020-05-17] MEDS ORDERED: D5W 550ml IV ONE (17:32)
[2020-05-17] MEDS ORDERED: D5NS 1000ml IV ONE (17:32)
[2020-05-17] MEDS ORDERED: Tubing IV Secondary IV ONE ×3 (17:32→18:01)
--- NOTE | 2020-05-17 18:15 | NUR ---
NURSE NOTES: Pt was cleaned, gown/bed linens, wound dressings were changed. Oral care was done. Pt was repositioned for comfort. VS remain stable while pt is maintained on Levophed at 18mcg/min to maintain SBP above 90.
[2020-05-17] MEDS: Dyna-Hex 2% Top Sol 2oz TOPIC SCH (18:30)
[2020-05-17] MEDS: Acetaminophen 650 MG SUPP RECTAL PRN (18:30)
--- NOTE | 2020-05-17 18:30 | NUR ---
NURSE NOTES: Pt was administered Tylenol 650mg rectal for Temp 101.5 axillary.
--- NOTE | 2020-05-17 19:00 | NUR ---
NURSE NOTES: Pt's temp remains above 100 post Tylenol administration. Cooling measures are also now in place. Ice packs have been placed on pt.
--- NOTE | 2020-05-17 19:30 | NUR ---
NURSE NOTES: received pt with Dx rapid Afib, now resolved, pt was legally blind, opened eyes to tactile stimulation, Sron the monitor, bp been supported with levophed drip at 20mcg/min at this time , as well as 1/2Ns at 75ml/hr. all IVF been infusing to Rt IJ tlc. site with drsg dry and intact. orally intubated on ac mode, with 40%fi02, 02 sat 100%. suctioned tn whitish secretions minimal to moderate in amt.soft left wrist restraint maintained for safety to avoid pulling out therapeutic devices. pt has pressure sores, upper back and buttocks covered with optifoam clean and dry. Pt on [id number]. turned q 2hrs prn with good skin care done. GT clamped keep pt nPO per dr Matos.. bellamy to gravity with yellowish urine, moderate in adamaris. Monitor I and O. monitor lytes.
--- NOTE | 2020-05-17 19:31 | NUR ---
NURSE HAND-OFF REPORT: Latest Vital Signs: Temperature 100.0 , Pulse 94 , B/P 121 /74 , Respiratory Rate 17 , O2 SAT 98 , Mechanical Ventilator, O2 Flow Rate 15.0 . Vital Sign Comment: EKG Rhythm: Sinus Rhythm Rhythm change?: N Notified?: N Response: No New Orders Received Latest Garza Fall Score: 50 Fall Risk: High Risk Safety Measures: Call light Within Reach, Bed Alarm Zone 1, Side Rails Side Rails x2, Bed position Low and Locked. Fall Precautions: Yellow Gown Report given to Kenya RUIZ. Endorsed plan of care. Pt remains on Levophed drip, currently at 18mcg/min to maintain SBP above 90. Cooling measures in place, ice packs, post Tylenol administration at 1830 for axillary temp 101.5F.
--- NOTE | 2020-05-17 21:30 | NUR ---
NURSE NOTES: oral care done, accucheck with coverage, pls see Emar
--- NOTE | 2020-05-17 22:00 | NUR ---
NURSE NOTES: levophed drip down to 16mcg/min at this time Bp119/75.
[2020-05-18] VITALS (47 sets, daily range): BP systolic 97–126; BP diastolic 60–80
--- NOTE | 2020-05-18 | NUR ---
NURSE NOTES: Bp 126/75 levophed drip down to 14mcg/min.
[2020-05-18] MEDS: Vasopressin 100 UNITS in NS 95 ML IV SCH ×2 (00:15→23:52)
[2020-05-18] MEDS: Phenylephrine 100 MG in D5W 240 ML IV SCH ×2 (00:15→23:52)
--- NOTE | 2020-05-18 01:00 | NUR ---
NURSE NOTES: accucheck 146mg/dl covered with 4 units nOv. insulin subcut. right upper arm.
[2020-05-18] MEDS: NovoLOG Insulin Flexpen SUBQ SCH ×6 (01:07→20:26)
[2020-05-18] MEDS: Meropenem 1 GM in NS 55 ML IVPB SCH ×2 (01:41→14:13)
--- NOTE | 2020-05-18 01:57 | Cardiology Report ---
APPROVED REPORT EKG Measurement Heart [id number] <Conclusion> Atrial fibrillation with rapid ventricular response with premature ventricular or aberrantly conducted complexes Rightward axis Septal infarct, age undetermined ST & T wave abnormality, consider inferolateral ischemia Abnormal ECG
--- NOTE | 2020-05-18 03:00 | NUR ---
NURSE NOTES: skin warm and dry at this time,temp 100.3, cooling measures on progress.
--- NOTE | 2020-05-18 05:00 | NUR ---
NURSE NOTES: complete bed bath with bed changed was done.
[2020-05-18 05:12] LABS: HEMATOCRIT 32.2 % (37.0-47.0); HEMOGLOBIN 10.9 G/DL (12.0-16.0); MEAN CORPUSCULAR VOLUME 91 FL (80-99); PLATELET COUNT 67 K/UL (150-450); RED BLOOD COUNT 3.55 M/UL (4.20-5.40); RED CELL DISTRIBUTION WIDTH 12.8 % (11.6-14.8); WHITE BLOOD COUNT 18.6 K/UL (4.8-10.8)
--- NOTE | 2020-05-18 06:00 | NUR ---
NURSE NOTES: levophed drip down to 10mcg/min since 0, sBP >100
--- NOTE | 2020-05-18 06:59 | General Progress Note ---
Assessment/Plan Problem List: (1) COVID-19 ICD Codes: U07.1 - COVID-19 SNOMED: 454178936 (2) Elevated d-dimer ICD Codes: R79.89 - Other specified abnormal findings of blood chemistry SNOMED: 651320275 (3) Rapid atrial fibrillation ICD Codes: I48.91 - Unspecified atrial fibrillation SNOMED: 659057825 (4) Sepsis ICD Codes: A41.9 - Sepsis, unspecified organism SNOMED: 84741562 (5) Respiratory failure ICD Codes: J96.90 - Respiratory failure, unspecified, unspecified whether with hypoxia or hypercapnia SNOMED: 571081236 (6) Renal failure ICD Codes: N19 - Unspecified kidney failure SNOMED: 85090773 (7) Hypernatremia ICD Codes: E87.0 - Hyperosmolality and hypernatremia SNOMED: 914455843 (8) T2DM (type 2 diabetes mellitus) ICD Codes: E11.9 - Type 2 diabetes mellitus without complications SNOMED: 19132609 Status: unchanged Assessment/Plan: no need for basal insulin continue Novolog sliding scale every 4 hours hypoglycemia protocol in order Subjective ROS Limited/Unobtainable: Yes Allergies: Coded Allergies: DIVALPROEX SODIUM (Verified Allergy, Unknown, 05/14/20) PENICILLINS (Verified Allergy, Unknown, 05/14/20) Subjective events noted and interval notes reviewed remained intubated in ICU on pressors glucose values are stable Item Value Date Time Bedside Blood Glucose 139 mg/dl H 05/18/20 0500 Bedside Blood Glucose 146 mg/dl H 05/18/20 0107 Bedside Blood Glucose 153 mg/dl H 05/17/20 2121 Bedside Blood Glucose 123 mg/dl H 05/17/20 1700 Bedside Blood Glucose 153 mg/dl H 05/17/20 1258 Bedside Blood Glucose 186 mg/dl H 05/17/20 1052 Bedside Blood Glucose 150 mg/dl H 05/17/20 0437 Bedside Blood Glucose 166 mg/dl H 05/17/20 0104 Objective Last 24 Hour Vital Signs Date Time Temp Pulse Resp B/P (MAP) Pulse Ox O2 Delivery O2 Flow Rate FiO2 05/18/20 06:00 109/67 05/18/20 05:30 87 15 109/ (81) 100 05/18/20 05:00 109/67 05/18/20 05:00 93 18 97/63 (74) 98 05/18/20 04:31 93 18 112/60 (77) 98 05/18/20 04:30 92 19 100 05/18/20 04:00 40 05/18/20 04:00 91 05/18/20 04:00 110/68 05/18/20 04:00 Mechanical Ventilator 05/18/20 04:00 99.0 97 21 103/67 (79) 92 05/18/20 03:30 99 21 105/68 (80) 95 05/18/20 03:00 97 15 112/74 (87) 100 05/18/20 03:00 105/68 05/18/20 02:59 88 16 40 05/18/20 02:30 96 14 114/68 (83) 100 05/18/20 02:00 114/68 05/18/20 02:00 91 14 106/68 (81) 99 05/18/20 01:30 94 15 115/73 (87) 100 05/18/20 01:00 94 15 114/74 (87) 92 05/18/20 01:00 115/73 05/18/20 00:30 95 15 126/75 (92) 100 05/18/20 00:15 96 126/75 05/18/20 00:00 99.4 94 18 124/80 (95) 100 05/18/20 00:00 126/75 05/18/20 00:00 40 05/18/20 00:00 98 05/18/20 00:00 Mechanical Ventilator 05/17/20 23:53 94 13 40 05/17/20 23:00 99 17 116/74 (88) 98 05/17/20 23:00 122/79 05/17/20 22:30 91 16 119/75 (90) 100 05/17/20 22:00 119/75 05/17/20 22:00 98 22 98/67 (77) 96 05/17/20 21:49 133/75 05/17/20 21:30 94 16 134/79 (97) 97 05/17/20 21:00 96 18 137/81 (99) 95 05/17/20 21:00 132/81 05/17/20 20:30 94 21 130/77 (94) 92 05/17/20 20:00 40 05/17/20 20:00 99.6 93 21 133/76 (95) 96 05/17/20 20:00 107/51 05/17/20 20:00 91 05/17/20 20:00 Mechanical Ventilator 05/17/20 19:30 93 20 127/81 (96) 99 05/17/20 19:00 94 17 121/74 (90) 98 05/17/20 19:00 100.0 05/17/20 19:00 129/75 05/17/20 18:50 93 20 40 05/17/20 18:30 98 14 109/69 (82) 99 05/17/20 18:00 97 33 106/64 (78) 100 05/17/20 18:00 106/64 05/17/20 17:00 101 22 97/64 (75) 98 05/17/20 17:00 103/66 05/17/20 16:30 101 22 97/64 (75) 98 05/17/20 16:00 94/64 05/17/20 16:00 96 05/17/20 16:00 101 22 96/64 (75) 98 05/17/20 16:00 40 05/17/20 16:00 Mechanical Ventilator 05/17/20 15:30 100 21 40 05/17/20 15:00 98 17 101/63 (76) 100 05/17/20 15:00 93/66 05/17/20 14:30 105 19 92/65 (74) 100 05/17/20 14:00 98/68 05/17/20 14:00 105 19 98/68 (78) 100 05/17/20 13:30 100 18 95/61 (72) 100 05/17/20 13:00 88/62 05/17/20 13:00 111 18 88/62 (71) 100 05/17/20 12:30 108 18 99/96 (97) 100 05/17/20 12:00 89/59 05/17/20 12:00 40 05/17/20 12:00 106 19 99/59 (72) 100 05/17/20 12:00 Mechanical Ventilator 05/17/20 12:00 106 05/17/20 11:30 111 19 86/59 (68) 100 05/17/20 11:00 86/57 05/17/20 11:00 95 18 96/58 (71) 100 05/17/20 10:30 89 17 101/66 (78) 100 05/17/20 10:30 101 20 40 05/17/20 10:00 87 16 105/64 (78) 100 05/17/20 10:00 102/64 05/17/20 09:30 84 17 96/63 (74) 100 05/17/20 09:00 88 17 101/62 (75) 100 05/17/20 09:00 104/64 05/17/20 08:30 84 15 97/64 (75) 100 05/17/20 08:00 98.8 84 16 107/65 (79) 100 05/17/20 08:00 Mechanical Ventilator 05/17/20 08:00 106/64 05/17/20 08:00 40 05/17/20 08:00 86 05/17/20 07:30 88 16 99/63 (75) 100 05/17/20 07:22 89 14 40 05/17/20 07:15 87 16 103/62 (76) 100 05/17/20 07:00 102/60 05/17/20 07:00 87 16 94/61 (72) 100 Intake and Output 05/17/20 05/18/20 19:00 07:00 Intake Total 1600.32 ml 1170.25 ml Output Total 760 ml 430 ml Balance 840.32 ml 740.25 ml IV Total 1600.32 ml 1170.25 ml Output Urine Total 760 ml 430 ml # Bowel Movements 3 3 Laboratory Tests 05/17/20 16:00: Sodium Level 150H, Potassium Level 3.9, Chloride Level 116H, Carbon Dioxide Level 24, Anion Gap 10, Blood Urea Nitrogen 62H, Creatinine 1.5H, Estimat Glomerular Filtration Rate 34.2, Glucose Level 107H, Calcium Level 9.3, Total Bilirubin 1.1H, Direct Bilirubin 0.2, Aspartate Amino Transf (AST/SGOT) 64H, Alanine Aminotransferase (ALT/SGPT) 60, Alkaline Phosphatase 45L, Total Protein 5.9L, Albumin 2.1L, Globulin 3.8, Albumin/Globulin Ratio 0.6L, Heparin-PF4 Antibody Screen [Pending], Hepatitis A IgM Antibody Negative, Hepatitis B Surface Antigen Negative, Hepatitis B Core IgM Antibody Negative, Hepatitis C Antibody <0.1, HIV (1&2) Antibody Rapid Negative 05/18/20 03:50: White Blood Count 18.6H, Red Blood Count 3.55L, Hemoglobin 10.9L, Hematocrit 32.2L, Mean Corpuscular Volume 91, Mean Corpuscular Hemoglobin 30.6, Mean Corpuscular Hemoglobin Concent 33.7, Red Cell Distribution Width 12.8, Platelet Count 67L, Mean Platelet Volume 15.1H, Neutrophils (%) (Auto) , Lymphocytes (%) (Auto) , Monocytes (%) (Auto) , Eosinophils (%) (Auto) , Basophils (%) (Auto) , Neutrophils % (Manual) [Pending], Lymphocytes % (Manual) [Pending], Platelet Estimate [Pending], Platelet Morphology [Pending], Phosphorus Level 4.0, Magnesium Level 2.3, Random Vancomycin Level 16.6 Height (Feet): 5 Height (Inches): 4.00 Weight (Pounds): 149 Objective Current Medications Medications (Trade) Dose Ordered Sig/Morgan Route PRN Reason Start Time Stop Time Status Last Admin Dose Admin Acetaminophen (Tylenol) 650 mg Q4H PRN GT Temp >100.5 05/16/20 06:15 06/15/20 06:14 05/16/20 08:46 Acetaminophen (Tylenol) 650 mg Q4H PRN RECTAL Temp >100.5 05/16/20 19:45 06/15/20 19:44 05/17/20 18:30 Chlorhexidine Gluconate (Lilliam-Hex 2%) 1 applic DAILY@2000 TOPIC 05/15/20 20:00 08/13/20 19:59 05/17/20 18:30 Dexamethasone Sodium Phosphate (Decadron 10mg/ ml Inj) 6 mg DAILY IV 05/16/20 09:00 05/24/20 08:59 05/17/20 10:05 Dextrose (Dextrose 50%) 25 ml Q30M PRN IV Hypoglycemia 05/15/20 18:00 08/13/20 17:59 Dextrose (Dextrose 50%) 50 ml Q30M PRN IV Hypoglycemia 05/15/20 18:00 08/13/20 17:59 Insulin Aspart (NovoLOG) Q4HR SUBQ 05/15/20 21:00 08/13/20 20:59 05/18/20 01:07 Meropenem 1 gm/ Sodium Chloride 55 ml @ 110 mls/hr Q12HR@0200,1400 IVPB 05/17/20 14:00 05/22/20 13:59 05/18/20 01:41 Morphine Sulfate (Morphine Sulfate) 2 mg EVERY 3 HOURS PRN IVP Moderate Pain (Pain Scale 4-6) 05/14/20 20:15 05/21/20 20:14 Morphine Sulfate (Morphine Sulfate) 4 mg EVERY 3 HOURS PRN IVP Severe Pain (Pain Scale 7-10) 05/14/20 20:15 05/21/20 20:14 Norepinephrine Bitartrate 16 mg/ Dextrose 516 ml @ 0 mls/hr Q24H IV 05/14/20 23:30 06/13/20 23:29 05/17/20 21:49 Pantoprazole (Protonix) 40 mg DAILY IV 05/15/20 09:00 06/14/20 08:59 05/17/20 10:05 Phenylephrine HCl 100 mg/Dextrose 250 ml @ 0 mls/hr Q24H IV 05/15/20 00:15 06/14/20 00:14 05/15/20 13:28 Sodium Chloride 1,000 ml @ 75 mls/hr [id number] IV 05/15/20 06:45 06/14/20 06:44 05/18/20 00:12 Vancomycin HCl ([facility] pharmacy to dose) 1 ea DAILY PRN MISC VANCOMYCIN 05/14/20 21:00 06/13/20 20:59 Vancomycin HCl 1 gm/Sodium Chloride 275 ml @ 183.708 mls/hr ONCE ONCE IVPB 05/18/20 08:00 05/18/20 09:29 Vasopressin 100 units/Sodium Chloride 100 ml @ 0 mls/hr Q24H IV 05/15/20 00:15 06/14/20 00:14 Chau Shelley MD May 18, 2020 06:59
--- NOTE | 2020-05-18 07:16 | NUR ---
NURSE HAND-OFF REPORT: Latest Vital Signs: Temperature 99.0 , Pulse 84 , B/P 120 /71 , Respiratory Rate 14 , O2 SAT 100 , Mechanical Ventilator, O2 Flow Rate 15.0 . Vital Sign Comment: EKG Rhythm: Sinus Rhythm Rhythm change?: N Notified?: Marcella Morillo MD Response: No New Orders Received Latest Garza Fall Score: 50 Fall Risk: High Risk Safety Measures: Call light Within Reach, Bed Alarm Zone 1, Side Rails Side Rails x2, Bed position Low and Locked. Fall Precautions: Yellow Gown Report given to Norma RUIZ].
--- NOTE | 2020-05-18 07:43 | NUR ---
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 CURRENT TF: NPO ENTERAL NUTRITION RECOMMENDATIONS: Glucerna 1.2 goal of 60ml/hr x24 hrs to provide 1440ml, 1728 kcal, 86g pro, 1159ml free H2O -> With improved hemodynamic stability and GI access rec to start non oral feeds. - Start at low rate 20ml/hr, advance as tolerated 10ml/hr q4- 6h hrs to goal. - Flush per MD. HOB over 30 degrees ---- Pt is currently w/out GI access, GT removed, unable to place NGT until GT site heals. ADDITIONAL RECOMMENDATIONS: 1) With improved BG and hemodynamic stability initiate TF as able 2) Obtain an accurate wt: per MD pt w/ 'cachexia' EMR wt: 117.8kg vs am wts: 67.6kg 3) Wound photos, rec WC eval. NPO at this time 4) Consider D5 IVF while NPO w/ currently improved BG
[2020-05-18] MEDS ORDERED: Vancomycin 1 GM in NS 275 ML IVPB ONE (08:00)
--- NOTE | 2020-05-18 08:00 | NUR ---
NURSE NOTES: Pt was assessed after receiving change of shift report from Kenya RUIZ. Pt is orally intubated, opens eyes to voice, does not follow commands, withdraws to pain. ETT 7.5 at 23cm lipline with settings AC12, VT500, Peep 5.0, FIO2 40%, with O2Sat 100%. NSR on brusher and shearer, HR 70, SBP 98 while pt is maintained on Levophed drip, currently at 10mcg/min. Temp 99F axillary, however extremities are cool to touch. LUQ GT, clamped, skin around GT site is red, excoriated, covered with dressing. Abdomen is round, soft, nontender to touch with hypoactive bowel sounds. Arauz catheter is present, draining clear/yellow urine. Skin alterations noted. Pt is on pressure release mattress. HOB at 30 degrees, bed locked, in lowest position, three side rails up. Left soft wrist restraint in use to prevent self-extubation, pt has right sided weakness, attempts to reach ET tube with left arm. Skin/vascular integrity at restraint site remains within normal limits. Will continue to monitor pt and follow plan of care per MD orders and protocol.
[2020-05-18] MEDS: dexAMETHasone 10mg/ml Inj IV SCH (08:45)
[2020-05-18] MEDS: Pantoprazole Inj IV SCH (08:46)
--- NOTE | 2020-05-18 09:39 | General Progress Note ---
Assessment/Plan Status: unchanged Assessment/Plan: 70-year-old female history of dementia, cachexia, dysphasia G-tube dependent feeding presents for evaluation of rapid heart rate and hypotension. # Septic shock Etiology COVID 19 vs UTI vs bacteremia Bcx POSITIVE WITH G+ Cocci and U cx 05/14 Proteus M Continue Vancomycin DAY 4, started on Meropenem DAY 2 stopped Cefepime, per Dr. Romeo from [place]. Dexamethasone due to hypoxia # 4 Leukocytosis today most likely due to steroids # Acute respiratory failure Intubated ICU care appreciated Dr. Enriquez consulted Serial CXR is stable today and ventilator management per ICU-pulmonary FiO2 40 % today. wean as tolerated. # SVT vs A. Flutter s/p DC x 3 HR is controlled in the 100 range and tolerating Digoxin Vasopressors in place Levophed/Neosyn Cardiology consultation Dr. Morillo requested and TTE requested. Troponin 3.4 now 0.7 EKG 05/17 NSR # AG metabolic acidosis Ddx lactic acidosis Improving. # Hyperglycemia r/o DKA ABG and Ketones ordered Endocrine consult with Dr. Shelley IV insulin gtt stopped last night and in SQ insulin coverage now # Hypernatremia Na 150 Monitor BMP IVF to 1/2 NS lower rate 75 cc hr # COVID 19 Positive on admission. Original infection > 15 days ago, do not qualify for Revdisimir or plasma Added Dexamethasone # 3 Contact and droplet isolation # Dysphagia PEG REMOVED 05/16 Carlo Vargas consulted and appreciate follow up and final plan for PEG replacement PENDING Will need to address and start enteral nutrition when possible. # Thrombocytopenia Platelets down from 80 K to 64 K today 66 K 05/17 dc heparin, use SCD, order US Liver, HIT Ab, HIV US legs to r.o dvt per [facility] [place] policy # Dementia Baseline # FULL CODE SW follow up to reach out to DPOA and consider change in code status due to high morbidity and risk of inpatient mortality. > 55 min spent in coordination of care and consultation with physicians and RN. Subjective Date patient seen: May 18, 2020 Time patient seen: 09:00 ROS Limited/Unobtainable: No Allergies: Coded Allergies: DIVALPROEX SODIUM (Verified Allergy, Unknown, 05/14/20) PENICILLINS (Verified Allergy, Unknown, 05/14/20) All Systems: reviewed and negative except above Subjective Non verbal, intubated Objective Last 24 Hour Vital Signs Date Time Temp Pulse Resp B/P (MAP) Pulse Ox O2 Delivery O2 Flow Rate FiO2 05/18/20 07:25 85 14 40 05/18/20 07:00 84 14 120/71 (87) 100 05/18/20 06:30 85 14 109/67 (81) 100 05/18/20 06:30 85 20 05/18/20 06:00 99.0 86 14 112/64 (80) 100 05/18/20 06:00 109/67 05/18/20 05:30 87 15 109/67 (81) 100 05/18/20 05:00 109/67 05/18/20 05:00 100.3 93 18 97/63 (74) 98 05/18/20 04:31 93 18 112/60 (77) 98 05/18/20 04:30 92 19 100 05/18/20 04:00 40 05/18/20 04:00 91 05/18/20 04:00 110/68 05/18/20 04:00 Mechanical Ventilator 05/18/20 04:00 99.0 97 21 103/67 (79) 92 05/18/20 03:30 99 21 105/68 (80) 95 05/18/20 03:00 97 15 112/74 (87) 100 05/18/20 03:00 105/68 05/18/20 02:59 88 16 40 05/18/20 02:30 96 14 114/68 (83) 100 05/18/20 02:00 114/68 05/18/20 02:00 91 14 106/68 (81) 99 05/18/20 01:30 94 15 115/73 (87) 100 05/18/20 01:00 94 15 114/74 (87) 92 05/18/20 01:00 115/73 05/18/20 00:30 95 15 126/75 (92) 100 05/18/20 00:15 96 126/75 05/18/20 00:00 99.4 94 18 124/80 (95) 100 05/18/20 00:00 126/75 05/18/20 00:00 40 05/18/20 00:00 98 05/18/20 00:00 Mechanical Ventilator 05/17/20 23:53 94 13 40 05/17/20 23:00 99 17 116/74 (88) 98 05/17/20 23:00 122/79 05/17/20 22:30 91 16 119/75 (90) 100 05/17/20 22:00 119/75 05/17/20 22:00 98 22 98/67 (77) 96 05/17/20 21:49 133/75 05/17/20 21:30 94 16 134/79 (97) 97 05/17/20 21:00 96 18 137/81 (99) 95 05/17/20 21:00 132/81 05/17/20 20:30 94 21 130/77 (94) 92 05/17/20 20:00 40 05/17/20 20:00 99.6 93 21 133/76 (95) 96 05/17/20 20:00 107/51 05/17/20 20:00 91 05/17/20 20:00 Mechanical Ventilator 05/17/20 19:30 93 20 127/81 (96) 99 05/17/20 19:00 94 17 121/74 (90) 98 05/17/20 19:00 100.0 05/17/20 19:00 129/75 05/17/20 18:50 93 20 40 05/17/20 18:30 98 14 109/69 (82) 99 05/17/20 18:00 97 33 106/64 (78) 100 05/17/20 18:00 106/64 05/17/20 17:00 101 22 97/64 (75) 98 05/17/20 17:00 103/66 05/17/20 16:30 101 22 97/64 (75) 98 05/17/20 16:00 94/64 05/17/20 16:00 96 05/17/20 16:00 101 22 96/64 (75) 98 05/17/20 16:00 40 05/17/20 16:00 Mechanical Ventilator 05/17/20 15:30 100 21 40 05/17/20 15:00 98 17 101/63 (76) 100 05/17/20 15:00 93/66 05/17/20 14:30 105 19 92/65 (74) 100 05/17/20 14:00 98/68 05/17/20 14:00 105 19 98/68 (78) 100 05/17/20 13:30 100 18 95/61 (72) 100 05/17/20 13:00 88/62 05/17/20 13:00 111 18 88/62 (71) 100 05/17/20 12:30 108 18 99/96 (97) 100 05/17/20 12:00 89/59 05/17/20 12:00 40 05/17/20 12:00 106 19 99/59 (72) 100 05/17/20 12:00 Mechanical Ventilator 05/17/20 12:00 106 05/17/20 11:30 111 19 86/59 (68) 100 05/17/20 11:00 86/57 05/17/20 11:00 95 18 96/58 (71) 100 05/17/20 10:30 89 17 101/66 (78) 100 05/17/20 10:30 101 20 40 05/17/20 10:00 87 16 105/64 (78) 100 05/17/20 10:00 102/64 Intake and Output 05/17/20 05/18/20 19:00 07:00 Intake Total 1600.32 ml 1170.25 ml Output Total 760 ml 500 ml Balance 840.32 ml 670.25 ml IV Total 1600.32 ml 1170.25 ml Output Urine Total 760 ml 500 ml # Bowel Movements 3 3 Laboratory Tests 05/17/20 16:00: Sodium Level 150H, Potassium Level 3.9, Chloride Level 116H, Carbon Dioxide Level 24, Anion Gap 10, Blood Urea Nitrogen 62H, Creatinine 1.5H, Estimat Glomerular Filtration Rate 34.2, Glucose Level 107H, Calcium Level 9.3, Total Bilirubin 1.1H, Direct Bilirubin 0.2, Aspartate Amino Transf (AST/SGOT) 64H, Alanine Aminotransferase (ALT/SGPT) 60, Alkaline Phosphatase 45L, Total Protein 5.9L, Albumin 2.1L, Globulin 3.8, Albumin/Globulin Ratio 0.6L, Heparin-PF4 Antibody Screen [Pending], Hepatitis A IgM Antibody Negative, Hepatitis B Surface Antigen Negative, Hepatitis B Core IgM Antibody Negative, Hepatitis C Antibody <0.1, HIV (1&2) Antibody Rapid Negative 05/18/20 03:50: White Blood Count 18.6H, Red Blood Count 3.55L, Hemoglobin 10.9L, Hematocrit 32.2L, Mean Corpuscular Volume 91, Mean Corpuscular Hemoglobin 30.6, Mean Corpuscular Hemoglobin Concent 33.7, Red Cell Distribution Width 12.8, Platelet Count 67L, Mean Platelet Volume 15.1H, Neutrophils (%) (Auto) , Lymphocytes (%) (Auto) , Monocytes (%) (Auto) , Eosinophils (%) (Auto) , Basophils (%) (Auto) , Differential Total Cells Counted 100, Neutrophils % (Manual) 89H, Lymphocytes % (Manual) 4L, Monocytes % (Manual) 2, Eosinophils % (Manual) 0, Basophils % ( Manual) 0, Band Neutrophils 5, Platelet Estimate DecreasedL, Platelet Morphology Normal, Phosphorus Level 4.0, Magnesium Level 2.3, Random Vancomycin Level 16.6 Height (Feet): 5 Height (Inches): 4.00 Weight (Pounds): 149 General Appearance: moderate distress EENT: PERRL/EOMI Neck: non-tender Cardiovascular: normal rate Respiratory/Chest: lungs clear, decreased breath sounds Abdomen: non tender Extremities: normal range of motion Neurologic: clinical evaluator II-XII grossly normal Jessica Wade MD May 18, 2020 09:39
--- NOTE | 2020-05-18 10:00 | NUR ---
NURSE NOTES: Dr. Wade is at the nurse's station. MD was updated on pt's current status. Order received from MD for venous duplex of lower extremities prior to initiating SCDs. However, per MD okay to start SCDs if water quality technician unable to obtain duplex study due to pt's COVID status. Will wait for water quality technician at this time. AM meds were administered. Blood glucose via Accucheck resulted 173, which was covered with Novolog 4units per sliding scale order. Oral care was done. Pt was repositioned for comfort. Levophed drip is maintained at 10mcg/min to regulate SBP above 90.
[2020-05-18 10:02] LABS: ALANINE AMINOTRANSFERASE 59 U/L (12-78); ALBUMIN 2.2 G/DL (3.4-5.0); ALBUMIN/GLOBULIN RATIO 0.7 (1.0-2.7); ALKALINE PHOSPHATASE 43 U/L (46-116); ANION GAP 13 mmol/L (5-15); ASPARTATE AMINO TRANSFERASE 59 U/L (15-37); BILIRUBIN,TOTAL 1.1 MG/DL (0.2-1.0); BLOOD UREA NITROGEN 61 mg/dL (7-18); CARBON DIOXIDE 21 MMOL/L (21-32); CHLORIDE 115 MMOL/L (98-107); CREATININE 1.3 MG/DL (0.55-1.30); POTASSIUM 3.8 MMOL/L (3.5-5.1); SODIUM 149 MMOL/L (136-145)
[2020-05-18 10:05] LABS: BILIRUBIN,DIRECT 0.2 MG/DL (0.0-0.3)
--- NOTE | 2020-05-18 10:49 | General Progress Note ---
Assessment/Plan Status: unchanged Assessment/Plan: 1. History of CVA. 2. Dementia. 3. Dysphagia with G-tube. 4. Cachexia. 5. Diabetes. 6. Pressure ulcers. 7. Hypothyroidism. 8. Legal blindness. 9. Currently COVID positive. GT has trice removed yesterday because it was under the skin still some drainage from the GT site plan to place NGT and start feeding GT replacement when harini stable Subjective ROS Limited/Unobtainable: No Allergies: Coded Allergies: DIVALPROEX SODIUM (Verified Allergy, Unknown, 05/14/20) PENICILLINS (Verified Allergy, Unknown, 05/14/20) Objective Last 24 Hour Vital Signs Date Time Temp Pulse Resp B/P (MAP) Pulse Ox O2 Delivery O2 Flow Rate FiO2 05/18/20 10:30 89 16 104/71 (82) 100 05/18/20 10:00 91 15 108/67 (81) 100 05/18/20 09:30 89 16 114/70 (85) 100 05/18/20 09:00 83 15 117/74 (88) 100 05/18/20 08:30 82 14 120/70 (87) 100 05/18/20 08:00 93 05/18/20 08:00 Mechanical Ventilator 05/18/20 08:00 40 05/18/20 08:00 99.0 84 16 120/71 (87) 100 05/18/20 07:30 88 15 124/74 (91) 100 05/18/20 07:25 85 14 40 05/18/20 07:00 84 14 120/71 (87) 100 05/18/20 06:30 85 14 109/67 (81) 100 05/18/20 06:30 85 20 05/18/20 06:00 99.0 86 14 112/64 (80) 100 05/18/20 06:00 109/67 05/18/20 05:30 87 15 109/67 (81) 100 05/18/20 05:00 109/67 05/18/20 05:00 100.3 93 18 97/63 (74) 98 05/18/20 04:31 93 18 112/60 (77) 98 05/18/20 04:30 92 19 100 05/18/20 04:00 40 05/18/20 04:00 91 05/18/20 04:00 110/68 05/18/20 04:00 Mechanical Ventilator 05/18/20 04:00 99.0 97 21 103/67 (79) 92 05/18/20 03:30 99 21 105/68 (80) 95 05/18/20 03:00 97 15 112/74 (87) 100 05/18/20 03:00 105/68 05/18/20 02:59 88 16 40 05/18/20 02:30 96 14 114/68 (83) 100 05/18/20 02:00 114/68 05/18/20 02:00 91 14 106/68 (81) 99 05/18/20 01:30 94 15 115/73 (87) 100 05/18/20 01:00 94 15 114/74 (87) 92 05/18/20 01:00 115/73 05/18/20 00:30 95 15 126/75 (92) 100 05/18/20 00:15 96 126/75 05/18/20 00:00 99.4 94 18 124/80 (95) 100 05/18/20 00:00 126/75 05/18/20 00:00 40 05/18/20 00:00 98 05/18/20 00:00 Mechanical Ventilator 05/17/20 23:53 94 13 40 05/17/20 23:00 99 17 116/74 (88) 98 05/17/20 23:00 122/79 05/17/20 22:30 91 16 119/75 (90) 100 05/17/20 22:00 119/75 05/17/20 22:00 98 22 98/67 (77) 96 05/17/20 21:49 133/75 05/17/20 21:30 94 16 134/79 (97) 97 05/17/20 21:00 96 18 137/81 (99) 95 05/17/20 21:00 132/81 05/17/20 20:30 94 21 130/77 (94) 92 05/17/20 20:00 40 05/17/20 20:00 99.6 93 21 133/76 (95) 96 05/17/20 20:00 107/51 05/17/20 20:00 91 05/17/20 20:00 Mechanical Ventilator 05/17/20 19:30 93 20 127/81 (96) 99 05/17/20 19:00 94 17 121/74 (90) 98 05/17/20 19:00 100.0 05/17/20 19:00 129/75 05/17/20 18:50 93 20 40 05/17/20 18:30 98 14 109/69 (82) 99 05/17/20 18:00 97 33 106/64 (78) 100 05/17/20 18:00 106/64 05/17/20 17:00 101 22 97/64 (75) 98 05/17/20 17:00 103/66 05/17/20 16:30 101 22 97/64 (75) 98 05/17/20 16:00 94/64 05/17/20 16:00 96 05/17/20 16:00 101 22 96/64 (75) 98 05/17/20 16:00 40 05/17/20 16:00 Mechanical Ventilator 05/17/20 15:30 100 21 40 05/17/20 15:00 98 17 101/63 (76) 100 05/17/20 15:00 93/66 05/17/20 14:30 105 19 92/65 (74) 100 05/17/20 14:00 98/68 05/17/20 14:00 105 19 98/68 (78) 100 05/17/20 13:30 100 18 95/61 (72) 100 05/17/20 13:00 88/62 05/17/20 13:00 111 18 88/62 (71) 100 05/17/20 12:30 108 18 99/96 (97) 100 05/17/20 12:00 89/59 05/17/20 12:00 40 05/17/20 12:00 106 19 99/59 (72) 100 05/17/20 12:00 Mechanical Ventilator 05/17/20 12:00 106 05/17/20 11:30 111 19 86/59 (68) 100 05/17/20 11:00 86/57 05/17/20 11:00 95 18 96/58 (71) 100 Intake and Output 05/17/20 05/18/20 19:00 07:00 Intake Total 1600.32 ml 1170.25 ml Output Total 760 ml 500 ml Balance 840.32 ml 670.25 ml IV Total 1600.32 ml 1170.25 ml Output Urine Total 760 ml 500 ml # Bowel Movements 3 3 Laboratory Tests 05/17/20 16:00: Sodium Level 150H, Potassium Level 3.9, Chloride Level 116H, Carbon Dioxide Level 24, Anion Gap 10, Blood Urea Nitrogen 62H, Creatinine 1.5H, Estimat Glomerular Filtration Rate 34.2, Glucose Level 107H, Calcium Level 9.3, Total Bilirubin 1.1H, Direct Bilirubin 0.2, Aspartate Amino Transf (AST/SGOT) 64H, Alanine Aminotransferase (ALT/SGPT) 60, Alkaline Phosphatase 45L, Total Protein 5.9L, Albumin 2.1L, Globulin 3.8, Albumin/Globulin Ratio 0.6L, Heparin-PF4 Antibody Screen [Pending], Hepatitis A IgM Antibody Negative, Hepatitis B Surface Antigen Negative, Hepatitis B Core IgM Antibody Negative, Hepatitis C Antibody <0.1, HIV (1&2) Antibody Rapid Negative 05/17/20 20:29: POC Whole Blood Glucose 153H 05/18/20 03:50: Sodium Level 149H, Potassium Level 3.8, Chloride Level 115H, Carbon Dioxide Level 21, Anion Gap 13, Blood Urea Nitrogen 61H, Creatinine 1.3, Estimat Glomerular Filtration Rate 40.4, Glucose Level 137H, Calcium Level 9.0, Total Bilirubin 1.1H, Direct Bilirubin 0.2, Aspartate Amino Transf (AST/SGOT) 59H, Alanine Aminotransferase (ALT/SGPT) 59, Alkaline Phosphatase 43L, Total Protein 5.3L, Albumin 2.2L, Globulin 3.1, Albumin/Globulin Ratio 0.7L, White Blood Count 18.6H, Red Blood Count 3.55L, Hemoglobin 10.9L, Hematocrit 32.2L, Mean Corpuscular Volume 91, Mean Corpuscular Hemoglobin 30.6, Mean Corpuscular Hemoglobin Concent 33.7, Red Cell Distribution Width 12.8, Platelet Count 67L, Mean Platelet Volume 15.1H, Neutrophils (%) (Auto) , Lymphocytes (%) (Auto) , Monocytes (%) (Auto) , Eosinophils (%) (Auto) , Basophils (%) (Auto) , Differential Total Cells Counted 100, Neutrophils % (Manual) 89H, Lymphocytes % (Manual) 4L, Monocytes % (Manual) 2, Eosinophils % (Manual) 0, Basophils % ( Manual) 0, Band Neutrophils 5, Platelet Estimate DecreasedL, Platelet Morphology Normal, Phosphorus Level 4.0, Magnesium Level 2.3, Random Vancomycin Level 16.6 Height (Feet): 5 Height (Inches): 4.00 Weight (Pounds): 149 General Appearance: lethargic EENT: normal ENT inspection Neck: supple Cardiovascular: normal rate Respiratory/Chest: decreased breath sounds Abdomen: normal bowel sounds, hypoactive bowel sounds Extremities: non-tender Jhon Matos MD May 18, 2020 10:49
--- NOTE | 2020-05-18 12:00 | NUR ---
NURSE NOTES: Dr. Matos contacted the nurse's station. MD was updated on pt's current status, and notified regarding GT site excoriation and drainage. Order was received to insert NGT and start tube feeding, Glucerna 1.2 to reach goal rate of 60ml/hr. Pt was also assessed by wound care nurse and treatments done. Pt was repositioned for comfort. VS remain stable while pt is maintained on Levophed drip at 10mcg/min to keep SBP above 90. Body temps fluctuating around 99F axillary, while cooling measures are in place.
--- NOTE | 2020-05-18 12:24 | Infectious Diseases Prog Note ---
Assessment/Plan 70 yo female with PMHx of Dementia, DM, CVA ( S/P PEG), COVID 19 infection and pressure ulcers. Septic Shock-combination cardiogenic and septic; pressors requirements improving Gram positive bacteremia- likely contaminant -05/14 Bcx 1/ S. haemolyticus; 05/17 Bcx p UTI UA (+); ucx 10-20k P. mirabilis (S Ceftriaxone, Cefepime) Probable left sided PNA, superimposed bacterial 05/16 CXR: Retrocardiac density may represent atelectasis versus infiltrate. CXR 05/14/20 showed Retrocardiac atelectasis/infiltrate with Pulmonary venous congestion. sp cx MDR E.coli (S Cefepime, Meropenem, Zosyn) Hx of COVID 19 - Bacteria secondary infection? Asp PNA? COVID 19 tested Pos OSF - about 3 week [employer] -still positive Rapid COVID PCR 05/14 Resp Fail Intuabted on Vent Leukocytosis; improving Fever SVT -sp cardioversion Hyperglycemia Dementia DM Hx CVA ( S/P PEG) pressure ulcers PLAN - Meropenem #2 (abx d #5) empiric Vancomcyin #5 for GPC bacteremia -if repeat bcx neg, will dc - On Decadron #5 per pulm -05/17 SP Cefepime #4 - f/u Cultures - Monitor CBC and Temps -f/u repat Bcx x2 -out of the window for Remdesivir- doubt beneficial at this point and shock more bacterial related Thank you for consulting [facility]. Will continue to follow along with you. Discussed with RN. Subjective Allergies: Coded Allergies: DIVALPROEX SODIUM (Verified Allergy, Unknown, 05/14/20) PENICILLINS (Verified Allergy, Unknown, 05/14/20) Tm 100.3 wbc improved, now at 18 Cr improving on levo at 10 Plt worsening Fio2 40% Objective Last 24 Hour Vital Signs Date Time Temp Pulse Resp B/P (MAP) Pulse Ox O2 Delivery O2 Flow Rate FiO2 05/18/20 12:00 110/67 05/18/20 12:00 92 05/18/20 12:00 91 15 110/67 (81) 98 05/18/20 11:30 92 12 109/66 (80) 99 05/18/20 11:30 92 15 109/66 (80) 99 05/18/20 11:08 92 19 40 05/18/20 11:05 100 05/18/20 11:03 92 16 40 05/18/20 11:00 104/70 05/18/20 11:00 91 18 109/66 (80) 100 05/18/20 10:30 89 16 104/71 (82) 100 05/18/20 10:00 91 15 108/67 (81) 100 05/18/20 10:00 104/71 05/18/20 09:30 89 16 114/70 (85) 100 05/18/20 09:00 83 15 117/74 (88) 100 05/18/20 09:00 117/74 05/18/20 08:30 82 14 120/70 (87) 100 05/18/20 08:00 93 05/18/20 08:00 Mechanical Ventilator 05/18/20 08:00 40 05/18/20 08:00 120/71 05/18/20 08:00 99.0 84 16 120/71 (87) 100 05/18/20 07:30 88 15 124/74 (91) 100 05/18/20 07:25 85 14 40 05/18/20 07:00 84 14 120/71 (87) 100 05/18/20 06:30 85 14 109/67 (81) 100 05/18/20 06:30 85 20 05/18/20 06:00 99.0 86 14 112/64 (80) 100 05/18/20 06:00 109/67 05/18/20 05:30 87 15 109/67 (81) 100 05/18/20 05:00 109/67 05/18/20 05:00 100.3 93 18 97/63 (74) 98 05/18/20 04:31 93 18 112/60 (77) 98 05/18/20 04:30 92 19 100 05/18/20 04:00 40 05/18/20 04:00 91 05/18/20 04:00 110/68 05/18/20 04:00 Mechanical Ventilator 05/18/20 04:00 99.0 97 21 103/67 (79) 92 05/18/20 03:30 99 21 105/68 (80) 95 05/18/20 03:00 97 15 112/74 (87) 100 05/18/20 03:00 105/68 05/18/20 02:59 88 16 40 05/18/20 02:30 96 14 114/68 (83) 100 05/18/20 02:00 114/68 05/18/20 02:00 91 14 106/68 (81) 99 05/18/20 01:30 94 15 115/73 (87) 100 05/18/20 01:00 94 15 114/74 (87) 92 05/18/20 01:00 115/73 05/18/20 00:30 95 15 126/75 (92) 100 05/18/20 00:15 96 126/75 05/18/20 00:00 99.4 94 18 124/80 (95) 100 05/18/20 00:00 126/75 05/18/20 00:00 40 05/18/20 00:00 98 05/18/20 00:00 Mechanical Ventilator 05/17/20 23:53 94 13 40 05/17/20 23:00 99 17 116/74 (88) 98 05/17/20 23:00 122/79 05/17/20 22:30 91 16 119/75 (90) 100 05/17/20 22:00 119/75 05/17/20 22:00 98 22 98/67 (77) 96 05/17/20 21:49 133/75 05/17/20 21:30 94 16 134/79 (97) 97 05/17/20 21:00 96 18 137/81 (99) 95 05/17/20 21:00 132/81 05/17/20 20:30 94 21 130/77 (94) 92 05/17/20 20:00 40 05/17/20 20:00 99.6 93 21 133/76 (95) 96 05/17/20 20:00 107/51 05/17/20 20:00 91 05/17/20 20:00 Mechanical Ventilator 05/17/20 19:30 93 20 127/81 (96) 99 05/17/20 19:00 94 17 121/74 (90) 98 05/17/20 19:00 100.0 05/17/20 19:00 129/75 05/17/20 18:50 93 20 40 05/17/20 18:30 98 14 109/69 (82) 99 05/17/20 18:00 97 33 106/64 (78) 100 05/17/20 18:00 106/64 05/17/20 17:00 101 22 97/64 (75) 98 05/17/20 17:00 103/66 05/17/20 16:30 101 22 97/64 (75) 98 05/17/20 16:00 94/64 05/17/20 16:00 96 05/17/20 16:00 101 22 96/64 (75) 98 05/17/20 16:00 40 05/17/20 16:00 Mechanical Ventilator 05/17/20 15:30 100 21 40 05/17/20 15:00 98 17 101/63 (76) 100 05/17/20 15:00 93/66 05/17/20 14:30 105 19 92/65 (74) 100 05/17/20 14:00 98/68 05/17/20 14:00 105 19 98/68 (78) 100 05/17/20 13:30 100 18 95/61 (72) 100 05/17/20 13:00 88/62 05/17/20 13:00 111 18 88/62 (71) 100 05/17/20 12:30 108 18 99/96 (97) 100 Height (Feet): 5 Height (Inches): 4.00 Weight (Pounds): 149 GEN: On Vent HEENT: NCAT, MMM, Intubated Pulm: Equal rise and fall B/L ABD: Soft, ND, PEG (No e/p) Neuro: Not following, Intubated SKIN: Exposed skin with no rash, Normal in color Microbiology Date/Time Source Procedure Growth Status 05/16/20 00:15 Sputum Gram Stain - Final Complete 05/16/20 00:15 Sputum Culture - Final Escherichia Coli Usual Respiratory Luz Elena Complete Laboratory Tests Test 05/17/20 16:00 05/17/20 20:29 05/18/20 03:50 Sodium Level 150 MMOL/L (136-145) H 149 MMOL/L (136-145) H Potassium Level 3.9 MMOL/L (3.5-5.1) 3.8 MMOL/L (3.5-5.1) Chloride Level 116 MMOL/L (98-107) H 115 MMOL/L (98-107) H Carbon Dioxide Level 24 MMOL/L (21-32) 21 MMOL/L (21-32) Anion Gap 10 mmol/L (5-15) 13 mmol/L (5-15) Blood Urea Nitrogen 62 mg/dL (7-18) H 61 mg/dL (7-18) H Creatinine 1.5 MG/DL (0.55-1.30) H 1.3 MG/DL (0.55-1.30) Estimat Glomerular Filtration Rate 34.2 mL/min (>60) 40.4 mL/min (>60) Glucose Level 107 MG/DL (74-106) H 137 MG/DL (74-106) H Calcium Level 9.3 MG/DL (8.5-10.1) 9.0 MG/DL (8.5-10.1) Total Bilirubin 1.1 MG/DL (0.2-1.0) H 1.1 MG/DL (0.2-1.0) H Direct Bilirubin 0.2 MG/DL (0.0-0.3) 0.2 MG/DL (0.0-0.3) Aspartate Amino Transf (AST/SGOT) 64 U/L (15-37) H 59 U/L (15-37) H Alanine Aminotransferase (ALT/SGPT) 60 U/L (12-78) 59 U/L (12-78) Alkaline Phosphatase 45 U/L (46-116) L 43 U/L (46-116) L Total Protein 5.9 G/DL (6.4-8.2) L 5.3 G/DL (6.4-8.2) L Albumin 2.1 G/DL (3.4-5.0) L 2.2 G/DL (3.4-5.0) L Globulin 3.8 g/dL 3.1 g/dL Albumin/Globulin Ratio 0.6 (1.0-2.7) L 0.7 (1.0-2.7) L Heparin-PF4 Antibody Screen 0.06 OD (<0.40) Hepatitis A IgM Antibody Negative (Negative) Hepatitis B Surface Antigen Negative (Negative) Hepatitis B Core IgM Antibody Negative (Negative) Hepatitis C Antibody <0.1 s/co ratio HIV (1&2) Antibody Rapid Negative (NEGATIVE) POC Whole Blood Glucose 153 MG/DL (74-106) H White Blood Count 18.6 K/UL (4.8-10.8) H Red Blood Count 3.55 M/UL (4.20-5.40) L Hemoglobin 10.9 G/DL (12.0-16.0) L Hematocrit 32.2 % (37.0-47.0) L Mean Corpuscular Volume 91 FL (80-99) Mean Corpuscular Hemoglobin 30.6 PG (27.0-31.0) Mean Corpuscular Hemoglobin Concent 33.7 G/DL (32.0-36.0) Red Cell Distribution Width 12.8 % (11.6-14.8) Platelet Count 67 K/UL (150-450) L Mean Platelet Volume 15.1 FL (6.5-10.1) H Neutrophils (%) (Auto) % (45.0-75.0) Lymphocytes (%) (Auto) % (20.0-45.0) Monocytes (%) (Auto) % (1.0-10.0) Eosinophils (%) (Auto) % (0.0-3.0) Basophils (%) (Auto) % (0.0-2.0) Differential Total Cells Counted 100 Neutrophils % (Manual) 89 % (45-75) H Lymphocytes % (Manual) 4 % (20-45) L Monocytes % (Manual) 2 % (1-10) Eosinophils % (Manual) 0 % (0-3) Basophils % (Manual) 0 % (0-2) Band Neutrophils 5 % (0-8) Platelet Estimate Decreased L Platelet Morphology Normal Phosphorus Level 4.0 MG/DL (2.5-4.9) Magnesium Level 2.3 MG/DL (1.8-2.4) Random Vancomycin Level 16.6 ug/mL Current Medications Medications (Trade) Dose Ordered Sig/Morgan Route PRN Reason Start Time Stop Time Status Last Admin Dose Admin Acetaminophen (Tylenol) 650 mg Q4H PRN GT Temp >100.5 05/16/20 06:15 06/15/20 06:14 05/16/20 08:46 Acetaminophen (Tylenol) 650 mg Q4H PRN RECTAL Temp >100.5 05/16/20 19:45 06/15/20 19:44 05/17/20 18:30 Chlorhexidine Gluconate (Lilliam-Hex 2%) 1 applic DAILY@2000 TOPIC 05/15/20 20:00 08/13/20 19:59 05/17/20 18:30 Dexamethasone Sodium Phosphate (Decadron 10mg/ ml Inj) 6 mg DAILY IV 05/16/20 09:00 05/24/20 08:59 05/18/20 08:45 Dextrose (Dextrose 50%) 25 ml Q30M PRN IV Hypoglycemia 05/15/20 18:00 08/13/20 17:59 Dextrose (Dextrose 50%) 50 ml Q30M PRN IV Hypoglycemia 05/15/20 18:00 08/13/20 17:59 Insulin Aspart (NovoLOG) Q4HR SUBQ 05/15/20 21:00 08/13/20 20:59 05/18/20 10:10 Meropenem 1 gm/ Sodium Chloride 55 ml @ 110 mls/hr Q12HR@0200,1400 IVPB 05/17/20 14:00 05/22/20 13:59 05/18/20 01:41 Morphine Sulfate (Morphine Sulfate) 2 mg EVERY 3 HOURS PRN IVP Moderate Pain (Pain Scale 4-6) 05/14/20 20:15 05/21/20 20:14 Morphine Sulfate (Morphine Sulfate) 4 mg EVERY 3 HOURS PRN IVP Severe Pain (Pain Scale 7-10) 05/14/20 20:15 05/21/20 20:14 Norepinephrine Bitartrate 16 mg/ Dextrose 516 ml @ 0 mls/hr Q24H IV 05/14/20 23:30 06/13/20 23:29 05/17/20 21:49 Pantoprazole (Protonix) 40 mg DAILY IV 05/15/20 09:00 06/14/20 08:59 05/18/20 08:46 Phenylephrine HCl 100 mg/Dextrose 250 ml @ 0 mls/hr Q24H IV 05/15/20 00:15 06/14/20 00:14 05/15/20 13:28 Sodium Chloride 1,000 ml @ 75 mls/hr [id number] IV 05/15/20 06:45 06/14/20 06:44 05/18/20 00:12 Vancomycin HCl ([facility]anco pharmacy to dose) 1 ea DAILY PRN MISC VANCOMYCIN 05/14/20 21:00 06/13/20 20:59 Vasopressin 100 units/Sodium Chloride 100 ml @ 0 mls/hr Q24H IV 05/15/20 00:15 06/14/20 00:14 Yomaira Terry M.D. May 18, 2020 12:24
--- NOTE | 2020-05-18 14:00 | NUR ---
NURSE NOTES: NGT has been inserted 16F in right nare, at 65cm nose/line. Order for KUB is also in place, awaiting for corn lab technician.
--- NOTE | 2020-05-18 14:51 | NUR ---
DIRECTOR INFORMATICSSENIOR ANIMAL TRAINER SI: RESP FAILURE ETT/VENT SUPPORT,SEPSIS SIMV 10 TV 500 FIO2 40% PEEP 5 PS 10 T. 99.0 HR 93 RR 16 B/P 120/71 WBC 18.6 NA 149 BUN 61 IS: LEVOPHED GTT MEROPENEM IV PROTONIX IV ICU STATUS
--- NOTE | 2020-05-18 15:45 | NUR ---
NURSE NOTES: Spoke with [employer] technician over the phone, and verified orders in place for abdominal ultrasound and venous duplex studies for the lower extremities. Per [employer] technician, "due to pt's confirmed COVID status, imaging studies will be placed on hold for now, while waiting for clearance, unless need is absolutely urgent if specified by MD".
--- NOTE | 2020-05-18 16:55 | NUR ---
NURSE NOTES:WOUND CARE NOTES:Pt presented on admission with multiple Pressure injuries.DTPI noted to R Buttocks (L)3.8cm x (W)3.4cm. Base of wound is purpuric,fluctuant with surrounding maroon and indurated borders. DTPI Upper L Buttocks(L)5.5cm x (W)4cm. Base of wound is maroon and indurated. Borders are irregular. Non-Blanchable erythema without induration/fluctuance L lower buttocks(L)4cm x (W)7cm. R and L heels are soft but blanchable. Tx.Plan: Apply Moisture Barrier Paste to Sacrum, R and L Buttocks. Cover each area with Optifoam drsg. Change every 3 days and prn. Apply Moisture Barrier Paste to R and L Ischial tuberosities with each incontinence care. Apply Cavilon Skin Barrier to both heels. Cover each heel and malleoli with Optifoam drsg. Change every 7 days and prn. Reposition at least every 2hours or as tolerated. Off-load heels with pillow. APM/DARIN Mattress overlay. Addendum: 05/18/20 at 1729 by Troy Swift LVN ADDENDUM TO ABOVE WOUND NOTES:Erosion noted at peristomal GT site. Site is erythematous and excoriated. Small amt. sanguineous exudate. Tx.Plan: Apply Zinc Oxide Paste TID to GT site. Leave open to Air.
--- NOTE | 2020-05-18 16:58 | NUR ---
NURSE NOTES: Wound care physician consult order in place per wound-care/nurse for right buttocks DTI.
--- NOTE | 2020-05-18 17:26 | Diagnostic Imaging Report ---
Indication: Post nasogastric tube placed placement Technique: Supine view of the upper abdomen Comparison: none Findings: There is a nasogastric tube in place, tip projecting at the level gastric body. There is considerable stool throughout the colon. Pelvic surgical clips are noted. Impression: Satisfactory nasogastric tube placement
--- NOTE | 2020-05-18 17:30 | NUR ---
NURSE NOTES: Still waiting for KUB results for NGT placement/confirmation. Pt was cleaned and repositioned. Temp 99.8F axillary. Cooling measures added, including cold/wet towel on forehead, and ice packs on body.
--- NOTE | 2020-05-18 17:58 | Cardiac Electrophysiology PN ---
Assessment/Plan Assessment/Plan 1. Tna-LU-rimgaeugm myocardial infarction. Her troponin was 1.258,1.2,1.9, 3.4 and the down to 0.7 EKG does not show any acute ST-T wave abnormality and certainly no ST elevation. This is likely precipitated by septic shock as the patient is on pressors as well as Renal failure. The echocardiogram had poor windows. Will repeat TTE after off the Vent 2. Atrial fibrillation with rapid ventricular response. The patient had DCCV 3 times and can contribute to the patient's elevated troponin. No more fib or accelerated junctional rhythm. Cannot use beta-ramakrishna or calcium-channel ramakrishna as the patient is still hypotensive, on Levophed. Loaded with digoxin and dig level is 1.6 3. Septic shock. The patient is on Levophed 12 mcg as well as broad-spectrum antibiotic with vancomycin and cefepime. 4. Severe hypernatremia with sodium of 174, BUN of 131, creatinine 2.7 due to dehydration. Sodium is 155 with BUN of 91 and creatinine of 1.9 with IV fluids. 5. Lactic acidosis, septic shock, on antibiotic. 6. Dysphagia, status post PEG placement. 7. History of CVA and dementia. 8. Respiratory failure, currently on the ventilator at 50% FiO2. KIMMY RN and Dr Wade Subjective Subjective In SR with no atrial fib or Junctional tach overnight. On Levophed 10 Mcg on the Vent 40% Fio2 Objective Last 24 Hour Vital Signs Date Time Temp Pulse Resp B/P (MAP) Pulse Ox O2 Delivery O2 Flow Rate FiO2 05/18/20 17:44 122/70 05/18/20 17:05 99.0 83 15 122/70 (87) 100 05/18/20 17:03 80 14 119/72 (88) 100 05/18/20 16:30 99.0 83 15 122/70 (87) 100 05/18/20 16:00 83 13 119/70 (86) 100 05/18/20 16:00 85 05/18/20 16:00 119/70 05/18/20 16:00 Mechanical Ventilator 05/18/20 16:00 40 05/18/20 15:30 85 15 123/71 (88) 100 05/18/20 15:04 82 14 40 05/18/20 15:00 85 12 121/71 (88) 100 05/18/20 15:00 121/71 05/18/20 14:30 83 12 124/71 (88) 100 05/18/20 14:00 124/71 05/18/20 14:00 86 16 121/71 (88) 100 05/18/20 13:30 88 17 116/70 (85) 100 05/18/20 13:00 89 16 116/68 (84) 100 05/18/20 13:00 116/68 05/18/20 12:30 90 16 108/66 (80) 100 05/18/20 12:00 Mechanical Ventilator 05/18/20 12:00 110/67 05/18/20 12:00 92 05/18/20 12:00 40 05/18/20 12:00 91 15 110/67 (81) 98 05/18/20 11:30 92 12 109/66 (80) 99 05/18/20 11:30 92 15 109/66 (80) 99 05/18/20 11:08 92 19 40 05/18/20 11:05 100 05/18/20 11:03 92 16 40 05/18/20 11:00 104/70 05/18/20 11:00 91 18 109/66 (80) 100 05/18/20 10:30 89 16 104/71 (82) 100 05/18/20 10:00 91 15 108/67 (81) 100 05/18/20 10:00 104/71 05/18/20 09:30 89 16 114/70 (85) 100 05/18/20 09:00 83 15 117/74 (88) 100 05/18/20 09:00 117/74 05/18/20 08:30 82 14 120/70 (87) 100 05/18/20 08:00 93 05/18/20 08:00 Mechanical Ventilator 05/18/20 08:00 40 05/18/20 08:00 120/71 05/18/20 08:00 99.0 84 16 120/71 (87) 100 05/18/20 07:30 88 15 124/74 (91) 100 05/18/20 07:25 85 14 40 05/18/20 07:00 106/60 05/18/20 07:00 84 14 120/71 (87) 100 05/18/20 06:30 85 14 109/67 (81) 100 05/18/20 06:30 85 20 05/18/20 06:00 99.0 86 14 112/64 (80) 100 05/18/20 06:00 109/67 05/18/20 05:30 87 15 109/67 (81) 100 05/18/20 05:00 109/67 05/18/20 05:00 100.3 93 18 97/63 (74) 98 05/18/20 04:31 93 18 112/60 (77) 98 05/18/20 04:30 92 19 100 05/18/20 04:00 40 05/18/20 04:00 91 05/18/20 04:00 110/68 05/18/20 04:00 Mechanical Ventilator 05/18/20 04:00 99.0 97 21 103/67 (79) 92 05/18/20 03:30 99 21 105/68 (80) 95 05/18/20 03:00 97 15 112/74 (87) 100 05/18/20 03:00 105/68 05/18/20 02:59 88 16 40 05/18/20 02:30 96 14 114/68 (83) 100 05/18/20 02:00 114/68 05/18/20 02:00 91 14 106/68 (81) 99 05/18/20 01:30 94 15 115/73 (87) 100 05/18/20 01:00 94 15 114/74 (87) 92 05/18/20 01:00 115/73 05/18/20 00:30 95 15 126/75 (92) 100 05/18/20 00:15 96 126/75 05/18/20 00:00 99.4 94 18 124/80 (95) 100 05/18/20 00:00 126/75 05/18/20 00:00 40 05/18/20 00:00 98 05/18/20 00:00 Mechanical Ventilator 05/17/20 23:53 94 13 40 05/17/20 23:00 99 17 116/74 (88) 98 05/17/20 23:00 122/79 05/17/20 22:30 91 16 119/75 (90) 100 05/17/20 22:00 119/75 05/17/20 22:00 98 22 98/67 (77) 96 05/17/20 21:49 133/75 9/8/20 21:30 94 16 134/79 (97) 97 05/17/20 21:00 96 18 137/81 (99) 95 05/17/20 21:00 132/81 05/17/20 20:30 94 21 130/77 (94) 92 05/17/20 20:00 40 05/17/20 20:00 99.6 93 21 133/76 (95) 96 05/17/20 20:00 107/51 05/17/20 20:00 91 05/17/20 20:00 Mechanical Ventilator 05/17/20 19:30 93 20 127/81 (96) 99 05/17/20 19:00 94 17 121/74 (90) 98 05/17/20 19:00 100.0 05/17/20 19:00 129/75 05/17/20 18:50 93 20 40 05/17/20 18:30 98 14 109/69 (82) 99 05/17/20 18:00 97 33 106/64 (78) 100 05/17/20 18:00 106/64 Intake and Output 05/17/20 05/18/20 19:00 07:00 Intake Total 1600.32 ml 1264.60 ml Output Total 760 ml 500 ml Balance 840.32 ml 764.60 ml IV Total 1600.32 ml 1264.60 ml Output Urine Total 760 ml 500 ml # Bowel Movements 3 3 Laboratory Tests Test 05/17/20 20:29 05/18/20 03:50 POC Whole Blood Glucose 153 MG/DL (74-106) H White Blood Count 18.6 K/UL (4.8-10.8) H Red Blood Count 3.55 M/UL (4.20-5.40) L Hemoglobin 10.9 G/DL (12.0-16.0) L Hematocrit 32.2 % (37.0-47.0) L Mean Corpuscular Volume 91 FL (80-99) Mean Corpuscular Hemoglobin 30.6 PG (27.0-31.0) Mean Corpuscular Hemoglobin Concent 33.7 G/DL (32.0-36.0) Red Cell Distribution Width 12.8 % (11.6-14.8) Platelet Count 67 K/UL (150-450) L Mean Platelet Volume 15.1 FL (6.5-10.1) H Neutrophils (%) (Auto) % (45.0-75.0) Lymphocytes (%) (Auto) % (20.0-45.0) Monocytes (%) (Auto) % (1.0-10.0) Eosinophils (%) (Auto) % (0.0-3.0) Basophils (%) (Auto) % (0.0-2.0) Differential Total Cells Counted 100 Neutrophils % (Manual) 89 % (45-75) H Lymphocytes % (Manual) 4 % (20-45) L Monocytes % (Manual) 2 % (1-10) Eosinophils % (Manual) 0 % (0-3) Basophils % (Manual) 0 % (0-2) Band Neutrophils 5 % (0-8) Platelet Estimate Decreased L Platelet Morphology Normal Sodium Level 149 MMOL/L (136-145) H Potassium Level 3.8 MMOL/L (3.5-5.1) Chloride Level 115 MMOL/L (98-107) H Carbon Dioxide Level 21 MMOL/L (21-32) Anion Gap 13 mmol/L (5-15) Blood Urea Nitrogen 61 mg/dL (7-18) H Creatinine 1.3 MG/DL (0.55-1.30) Estimat Glomerular Filtration Rate 40.4 mL/min (>60) Glucose Level 137 MG/DL (74-106) H Calcium Level 9.0 MG/DL (8.5-10.1) Phosphorus Level 4.0 MG/DL (2.5-4.9) Magnesium Level 2.3 MG/DL (1.8-2.4) Total Bilirubin 1.1 MG/DL (0.2-1.0) H Direct Bilirubin 0.2 MG/DL (0.0-0.3) Aspartate Amino Transf (AST/SGOT) 59 U/L (15-37) H Alanine Aminotransferase (ALT/SGPT) 59 U/L (12-78) Alkaline Phosphatase 43 U/L (46-116) L Total Protein 5.3 G/DL (6.4-8.2) L Albumin 2.2 G/DL (3.4-5.0) L Globulin 3.1 g/dL Albumin/Globulin Ratio 0.7 (1.0-2.7) L Random Vancomycin Level 16.6 ug/mL Microbiology Date/Time Source Procedure Growth Status 05/16/20 00:15 Sputum Gram Stain - Final Complete 05/16/20 00:15 Sputum Culture - Final Escherichia Coli Usual Respiratory Luz Elena Complete Objective HEAD AND NECK: Show no JVD. She is orally intubated. LUNGS: Coarse rhonchi. CARDIOVASCULAR: Shows regular S1 and S2 with no gallop. ABDOMEN: Soft. Status post G-tube. EXTREMITIES: Show no pitting edema. Norman Morillo MD May 18, 2020 17:58
--- NOTE | 2020-05-18 19:00 | Pulmonology Progress Note ---
Subjective ROS Limited/Unobtainable: No Interval Events: Remains intubated; on levophed Constitutional: Reports: no symptoms HEENT: Repors: no symptoms Respiratory: Reports: no symptoms Cardiovascular: Reports: no symptoms Gastrointestinal/Abdominal: Reports: no symptoms Genitourinary: Reports: no symptoms Allergies: Coded Allergies: DIVALPROEX SODIUM (Verified Allergy, Unknown, 05/14/20) PENICILLINS (Verified Allergy, Unknown, 05/14/20) All Systems: reviewed and negative except above Objective Last 24 Hour Vital Signs Date Time Temp Pulse Resp B/P (MAP) Pulse Ox O2 Delivery O2 Flow Rate FiO2 05/18/20 18:30 95 17 101/61 (74) 98 05/18/20 18:00 111/66 05/18/20 18:00 90 16 111/66 (81) 98 05/18/20 17:44 122/70 05/18/20 17:30 89 17 116/67 (83) 100 05/18/20 17:05 99.0 83 15 122/70 (87) 100 05/18/20 17:03 80 14 119/72 (88) 100 05/18/20 17:00 120/68 05/18/20 16:30 99.0 83 15 122/70 (87) 100 05/18/20 16:00 83 13 119/70 (86) 100 05/18/20 16:00 85 05/18/20 16:00 119/70 05/18/20 16:00 Mechanical Ventilator 05/18/20 16:00 40 05/18/20 15:30 85 15 123/71 (88) 100 05/18/20 15:04 82 14 40 05/18/20 15:00 85 12 121/71 (88) 100 05/18/20 15:00 121/71 05/18/20 14:30 83 12 124/71 (88) 100 05/18/20 14:00 124/71 05/18/20 14:00 86 16 121/71 (88) 100 05/18/20 13:30 88 17 116/70 (85) 100 05/18/20 13:00 89 16 116/68 (84) 100 05/18/20 13:00 116/68 05/18/20 12:30 90 16 108/66 (80) 100 9/9/20 12:00 Mechanical Ventilator 05/18/20 12:00 110/67 05/18/20 12:00 92 05/18/20 12:00 40 05/18/20 12:00 91 15 110/67 (81) 98 05/18/20 11:30 92 12 109/66 (80) 99 05/18/20 11:30 92 15 109/66 (80) 99 05/18/20 11:08 92 19 40 05/18/20 11:05 100 05/18/20 11:03 92 16 40 05/18/20 11:00 104/70 05/18/20 11:00 91 18 109/66 (80) 100 05/18/20 10:30 89 16 104/71 (82) 100 05/18/20 10:00 91 15 108/67 (81) 100 05/18/20 10:00 104/71 05/18/20 09:30 89 16 114/70 (85) 100 05/18/20 09:00 83 15 117/74 (88) 100 05/18/20 09:00 117/74 05/18/20 08:30 82 14 120/70 (87) 100 05/18/20 08:00 93 05/18/20 08:00 Mechanical Ventilator 05/18/20 08:00 40 05/18/20 08:00 120/71 05/18/20 08:00 99.0 84 16 120/71 (87) 100 05/18/20 07:30 88 15 124/74 (91) 100 05/18/20 07:25 85 14 40 05/18/20 07:00 106/60 05/18/20 07:00 84 14 120/71 (87) 100 05/18/20 06:30 85 14 109/67 (81) 100 05/18/20 06:30 85 20 05/18/20 06:00 99.0 86 14 112/64 (80) 100 05/18/20 06:00 109/67 05/18/20 05:30 87 15 109/67 (81) 100 05/18/20 05:00 109/67 05/18/20 05:00 100.3 93 18 97/63 (74) 98 05/18/20 04:31 93 18 112/60 (77) 98 05/18/20 04:30 92 19 100 05/18/20 04:00 40 05/18/20 04:00 91 05/18/20 04:00 110/68 05/18/20 04:00 Mechanical Ventilator 05/18/20 04:00 99.0 97 21 103/67 (79) 92 05/18/20 03:30 99 21 105/68 (80) 95 05/18/20 03:00 97 15 112/74 (87) 100 05/18/20 03:00 105/68 05/18/20 02:59 88 16 40 05/18/20 02:30 96 14 114/68 (83) 100 05/18/20 02:00 114/68 05/18/20 02:00 91 14 106/68 (81) 99 05/18/20 01:30 94 15 115/73 (87) 100 05/18/20 01:00 94 15 114/74 (87) 92 05/18/20 01:00 115/73 05/18/20 00:30 95 15 126/75 (92) 100 05/18/20 00:15 96 126/75 05/18/20 00:00 99.4 94 18 124/80 (95) 100 05/18/20 00:00 126/75 05/18/20 00:00 40 05/18/20 00:00 98 05/18/20 00:00 Mechanical Ventilator 05/17/20 23:53 94 13 40 05/17/20 23:00 99 17 116/74 (88) 98 05/17/20 23:00 122/79 05/17/20 22:30 91 16 119/75 (90) 100 05/17/20 22:00 119/75 05/17/20 22:00 98 22 98/67 (77) 96 05/17/20 21:49 133/75 05/17/20 21:30 94 16 134/79 (97) 97 05/17/20 21:00 96 18 137/81 (99) 95 05/17/20 21:00 132/81 05/17/20 20:30 94 21 130/77 (94) 92 05/17/20 20:00 40 05/17/20 20:00 99.6 93 21 133/76 (95) 96 05/17/20 20:00 107/51 05/17/20 20:00 91 05/17/20 20:00 Mechanical Ventilator 05/17/20 19:30 93 20 127/81 (96) 99 Intake and Output 05/17/20 05/18/20 19:00 07:00 Intake Total 1600.32 ml 1264.60 ml Output Total 760 ml 500 ml Balance 840.32 ml 764.60 ml IV Total 1600.32 ml 1264.60 ml Output Urine Total 760 ml 500 ml # Bowel Movements 3 3 General Appearance: no acute distress HEENT: normocephalic Respiratory: chest wall non-tender, lungs clear Cardiovascular: normal peripheral pulses, normal rate Abdomen: normal bowel sounds Microbiology Date/Time Source Procedure Growth Status 05/16/20 00:15 Sputum Gram Stain - Final Complete 05/16/20 00:15 Sputum Culture - Final Escherichia Coli Usual Respiratory Luz Elena Complete Laboratory Tests 05/17/20 20:29: POC Whole Blood Glucose 153H 05/18/20 03:50: White Blood Count 18.6H, Red Blood Count 3.55L, Hemoglobin 10.9L, Hematocrit 32.2L, Mean Corpuscular Volume 91, Mean Corpuscular Hemoglobin 30.6, Mean Corpuscular Hemoglobin Concent 33.7, Red Cell Distribution Width 12.8, Platelet Count 67L, Mean Platelet Volume 15.1H, Neutrophils (%) (Auto) , Lymphocytes (%) (Auto) , Monocytes (%) (Auto) , Eosinophils (%) (Auto) , Basophils (%) (Auto) , Differential Total Cells Counted 100, Neutrophils % (Manual) 89H, Lymphocytes % (Manual) 4L, Monocytes % (Manual) 2, Eosinophils % (Manual) 0, Basophils % ( Manual) 0, Band Neutrophils 5, Platelet Estimate DecreasedL, Platelet Morphology Normal, Sodium Level 149H, Potassium Level 3.8, Chloride Level 115H, Carbon Dioxide Level 21, Anion Gap 13, Blood Urea Nitrogen 61H, Creatinine 1.3, Estimat Glomerular Filtration Rate 40.4, Glucose Level 137H, Calcium Level 9.0, Phosphorus Level 4.0, Magnesium Level 2.3, Total Bilirubin 1.1H, Direct Bilirubin 0.2, Aspartate Amino Transf (AST/SGOT) 59H, Alanine Aminotransferase ( ALT/SGPT) 59, Alkaline Phosphatase 43L, Total Protein 5.3L, Albumin 2.2L, Globulin 3.1, Albumin/Globulin Ratio 0.7L, Random Vancomycin Level 16.6 Current Medications Medications (Trade) Dose Ordered Sig/Morgan Route PRN Reason Start Time Stop Time Status Last Admin Dose Admin Acetaminophen (Tylenol) 650 mg Q4H PRN GT Temp >100.5 05/16/20 06:15 06/15/20 06:14 05/16/20 08:46 Acetaminophen (Tylenol) 650 mg Q4H PRN RECTAL Temp >100.5 05/16/20 19:45 06/15/20 19:44 05/17/20 18:30 Chlorhexidine Gluconate (Lilliam-Hex 2%) 1 applic DAILY@2000 TOPIC 05/15/20 20:00 08/13/20 19:59 05/17/20 18:30 Dexamethasone Sodium Phosphate (Decadron 10mg/ ml Inj) 6 mg DAILY IV 05/16/20 09:00 05/24/20 08:59 05/18/20 08:45 Dextrose (Dextrose 50%) 25 ml Q30M PRN IV Hypoglycemia 05/15/20 18:00 08/13/20 17:59 Dextrose (Dextrose 50%) 50 ml Q30M PRN IV Hypoglycemia 05/15/20 18:00 08/13/20 17:59 Insulin Aspart (NovoLOG) Q4HR SUBQ 05/15/20 21:00 08/13/20 20:59 05/18/20 17:53 Meropenem 1 gm/ Sodium Chloride 55 ml @ 110 mls/hr Q12HR@0200,1400 IVPB 05/17/20 14:00 05/22/20 13:59 05/18/20 14:13 Morphine Sulfate (Morphine Sulfate) 2 mg EVERY 3 HOURS PRN IVP Moderate Pain (Pain Scale 4-6) 05/14/20 20:15 05/21/20 20:14 Morphine Sulfate (Morphine Sulfate) 4 mg EVERY 3 HOURS PRN IVP Severe Pain (Pain Scale 7-10) 05/14/20 20:15 05/21/20 20:14 Norepinephrine Bitartrate 16 mg/ Dextrose 516 ml @ 0 mls/hr Q24H IV 05/14/20 23:30 06/13/20 23:29 05/18/20 17:44 Pantoprazole (Protonix) 40 mg DAILY IV 05/15/20 09:00 06/14/20 08:59 05/18/20 08:46 Phenylephrine HCl 100 mg/Dextrose 250 ml @ 0 mls/hr Q24H IV 05/15/20 00:15 06/14/20 00:14 05/15/20 13:28 Sodium Chloride 1,000 ml @ 75 mls/hr [id number] IV 05/15/20 06:45 06/14/20 06:44 05/18/20 14:13 Vancomycin HCl ([facility] pharmacy to dose) 1 ea DAILY PRN MISC VANCOMYCIN 05/14/20 21:00 06/13/20 20:59 Vasopressin 100 units/Sodium Chloride 100 ml @ 0 mls/hr Q24H IV 05/15/20 00:15 06/14/20 00:14 Assessment/Plan Assessment/Plan IMPRESSION: 1. Acute respiratory failure. 2. Diabetes mellitus with hyperglycemia. 3. Septic shock. 4. Chronic G-tube. 5. Decubitus. 6. History of CHF. DISCUSSION: The patient is critically ill. Continue insulin. IV fluids to be given with hypotonic solutions. Broad-spectrum antibiotics. Pressors. Continue AC mode till stable. DVT and GI prophylaxis. Respiratory precautions due to COVID-[address] Wade. I will follow carefully. Has respiratory alkalosis; consider adding sedatives (On AC 12, measured f =34) Richard James Omar Syed MD May 18, 2020 19:00
--- NOTE | 2020-05-18 19:10 | NUR ---
NURSE NOTES: Pt report received from Norma RUIZ. pt remains stable. pt is able to open eyes to light stimuli, no other acute neuro deficit noted. pt is oral intubated, sating 98%, no other acute resp distress noted. pt is showing NSR on potline monitor, no other acute cardiac distress noted. pt bed is low, locked, armed , call light within reach, bed rails up times 3. will follow plan of care.
--- NOTE | 2020-05-18 19:15 | NUR ---
NURSE HAND-OFF REPORT: Latest Vital Signs: Temperature 99.8F axillary, cooling measures in place , Pulse 97 , B/P 98 /64 , Respiratory Rate 16 , O2 SAT 98 , Mechanical Ventilator AC 12, VT500, Peep 5, FIO2 40%. Vital Sign Comment: Pt remains on Levophed drip at 10mcg/min to maintain SBP above 90. EKG Rhythm: Sinus Rhythm NGT in place: KUB just confirmed placement. Feeding to start Glucerna 1.2 to gradually increase to goal rate of 60ml/hour. Report given to Roel RUIZ.
--- NOTE | 2020-05-18 19:30 | NUR ---
NURSE NOTES: tube feeding started per Doctor order.
[2020-05-18] MEDS: Dyna-Hex 2% Top Sol 2oz TOPIC SCH (20:26)
[2020-05-19] VITALS (59 sets, daily range): BP systolic 84–126; BP diastolic 46–74
--- NOTE | 2020-05-19 | NUR ---
NURSE NOTES: pt turned, repositioned and cleaned.
[2020-05-19] MEDS: NovoLOG Insulin Flexpen SUBQ SCH ×6 (00:12→20:27)
[2020-05-19] MEDS: Meropenem 1 GM in NS 55 ML IVPB SCH ×3 (02:06→13:04)
[2020-05-19 05:21] LABS: HEMOGLOBIN 10.5 G/DL (12.0-16.0); MEAN CORPUSCULAR VOLUME 91 FL (80-99); PLATELET COUNT 84 K/UL (150-450); RED BLOOD COUNT 3.43 M/UL (4.20-5.40); RED CELL DISTRIBUTION WIDTH 12.8 % (11.6-14.8); WHITE BLOOD COUNT 17.3 K/UL (4.8-10.8)
[2020-05-19 05:38] LABS: ANION GAP 13 mmol/L (5-15); BLOOD UREA NITROGEN 53 mg/dL (7-18); CALCIUM 8.8 MG/DL (8.5-10.1); CARBON DIOXIDE 20 MMOL/L (21-32); CHLORIDE 113 MMOL/L (98-107); CREATININE 1.2 MG/DL (0.55-1.30); POTASSIUM 3.4 MMOL/L (3.5-5.1); SODIUM 146 MMOL/L (136-145)
--- NOTE | 2020-05-19 07:16 | NUR ---
NURSE HAND-OFF REPORT: Latest Vital Signs: Temperature 98.2 , Pulse 90 , B/P 105 /67 , Respiratory Rate 19 , O2 SAT 98 , Mechanical Ventilator, O2 Flow Rate 15.0 . Vital Sign Comment: [STABLE] EKG Rhythm: Sinus Rhythm Rhythm change?: N MD Notified?: Y -Dr. Ilia SEYMOUR Response: No New Orders Received Latest Garza Fall Score: 50 Fall Risk: High Risk Safety Measures: Call light Within Reach, Bed Alarm Zone 1, Side Rails Side Rails x2, Bed position Low and Locked. Fall Precautions: Yellow Gown Report given to [ADAM Rossi RN].
--- NOTE | 2020-05-19 07:20 | NUR ---
NURSE NOTES: Pt received from Roel Francisco RN. Pt is asleep, opens eyes to shaking but not to auditory stimuli, gag reflex is hypoactive, pt does not follow commands, pupils are equal and round 3 mm bilaterally with sluggish rxn to light. Pt noted in SR to senior litigation paralegal. radial and dorsalis pedis pulses 1+. 1+ pitting edema noted to both hands. Pt is mechanically ventilated with a 7.5 ETT noted 23 cm at the lip line with following settings: AC 16 TV 500 FiO2 40% Peep 5. All lung lobes sound diminished upon auscultation. Abd is flat, soft, and non-tender, with active bowel sounds to all quadrants. Pt has an right nares NGT running Glucerna 1.2 at 20 cc/hr - will titrate up as tolerated. F/C noted draining yellow, clear urine. Skin alterations noted. Pt on DARIN mattress. Pt has a RIJ TLC running levophed at 12 mcg/min and 1/2 NS at 75 cc/hr. Pt also observed with left soft wrist restraint. Skin to left wrist is intact without redness. left radial pulse is palpable. Bed in lowest position, alarm on, side rails up x 2. Call light within reach. Will continue to monitor pt.
[2020-05-19] MEDS: Pantoprazole Inj IV SCH (08:44)
[2020-05-19] MEDS: dexAMETHasone 10mg/ml Inj IV SCH (08:44)
--- NOTE | 2020-05-19 09:00 | NUR ---
NURSE NOTES: Dr Wade assessing pt at bedside and reviewing lab results for today.
--- NOTE | 2020-05-19 10:00 | NUR ---
NURSE NOTES: Pt repositioned, no distress noted. Dr Enriquez assessing pt at bedside. No orders for ABG or weaning today.
--- NOTE | 2020-05-19 10:21 | General Progress Note ---
Assessment/Plan Status: unchanged Assessment/Plan: 70-year-old female history of dementia, cachexia, dysphasia G-tube dependent feeding presents for evaluation of rapid heart rate and hypotension. # Septic with element of cardiogenic shock Etiology COVID 19 vs UTI vs bacteremia and NSTEMI Bcx POSITIVE WITH G+ Cocci and U cx 05/14 Proteus M Continue Vancomycin DAY 5, Meropenem DAY 3 stopped Cefepime Dexamethasone due to hypoxia # 5 Leukocytosis today most likely due to steroids # Acute respiratory failure Intubated and not ready to wean off ICU care appreciated Dr. Enriquez consulted Serial CXR is stable today and ventilator management per ICU-pulmonary FiO2 40 % today. wean as tolerated. ABG 7.46/23/101/16 # SVT vs A. Flutter s/p DC x 3 # NSTEMI HR is controlled in the 100 range and tolerating Digoxin Vasopressors in place Levophed/Neosyn Cardiology consultation Dr. Morillo requested and TTE requested and poor window. Will need repeat TTE when able to safely complete. Limited due to covid positive Troponin 3.4 now 0.7 EKG 05/17 NSR # AG metabolic acidosis Ddx lactic acidosis Improving. # Hyperglycemia r/o DKA ABG and Ketones ordered Endocrine consult with Dr. Shelley IV insulin gtt stopped last night and in SQ insulin coverage now # Hypernatremia Na 146 Monitor BMP IVF to 1/2 NS lower rate 75 cc hr # COVID 19 Positive on admission. Original infection > 15 days ago, do not qualify for Revdisimir or plasma Added Dexamethasone Contact and droplet isolation # Dysphagia PEG REMOVED 05/16 Carlo Vargas consulted and appreciate follow up and final plan for PEG replacement PENDING. PEG site with dressing in place and OFF PEG for now. NGT placed and Tube feeds started 05/18, low rate 20 cc hr # Thrombocytopenia Platelets down from 80 K to 64 K to 66 K and UP to 84 K today ( OFF heparin ) 05/17 dc heparin, use SCD, order US Liver, HIT Ab, HIV US legs to r.o dvt per [facility] [place] # Hypokalemia Replete today # Dementia Baseline # FULL CODE SW follow up to reach out to DPOA and consider change in code status due to high morbidity and risk of inpatient mortality. > 55 min spent in coordination of care and consultation with physicians and RN. Subjective Date patient seen: May 19, 2020 Time patient seen: 09:30 ROS Limited/Unobtainable: Yes Allergies: Coded Allergies: DIVALPROEX SODIUM (Verified Allergy, Unknown, 05/14/20) PENICILLINS (Verified Allergy, Unknown, 05/14/20) Subjective Non verbal, intubated Objective Last 24 Hour Vital Signs Date Time Temp Pulse Resp B/P (MAP) Pulse Ox O2 Delivery O2 Flow Rate FiO2 05/19/20 08:00 87 05/19/20 06:50 82 14 40 05/19/20 06:30 85 25 05/19/20 06:00 105/67 05/19/20 06:00 90 19 105/67 (80) 98 05/19/20 05:00 82 16 100/66 (77) 99 05/19/20 05:00 100/66 05/19/20 04:00 85 05/19/20 04:00 103/64 05/19/20 04:00 40 05/19/20 04:00 Mechanical Ventilator 05/19/20 04:00 98.2 83 17 103/64 (77) 99 05/19/20 03:33 87 17 40 05/19/20 03:00 84 18 84/49 (61) 99 05/19/20 03:00 84/49 05/19/20 02:00 98/61 05/19/20 02:00 81 18 98/61 (73) 98 05/19/20 01:00 89/60 05/19/20 01:00 83 18 89/60 (70) 98 05/19/20 00:00 88 05/19/20 00:00 93/63 05/19/20 00:00 98.7 86 19 96/63 (74) 99 05/19/20 00:00 40 05/19/20 00:00 Mechanical Ventilator 05/18/20 23:52 88 100/61 05/18/20 23:10 87 16 40 05/18/20 23:00 100/61 05/18/20 23:00 86 18 100/61 (74) 98 05/18/20 22:00 87 17 107/67 (80) 99 05/18/20 22:00 107/67 05/18/20 21:30 90 17 101/65 (77) 97 05/18/20 21:00 104/67 05/18/20 21:00 92 17 104/67 (79) 99 05/18/20 20:30 94 17 106/68 (81) 98 05/18/20 20:00 96 05/18/20 20:00 40 05/18/20 20:00 100/65 05/18/20 20:00 98.2 96 17 100/65 (77) 97 05/18/20 20:00 Mechanical Ventilator 05/18/20 19:36 96 14 40 05/18/20 19:30 97 16 98/64 (75) 98 05/18/20 19:00 104/62 05/18/20 19:00 96 16 104/62 (76) 98 05/18/20 18:30 95 17 101/61 (74) 98 05/18/20 18:00 111/66 05/18/20 18:00 90 16 111/66 (81) 98 05/18/20 17:44 122/70 05/18/20 17:30 89 17 116/67 (83) 100 05/18/20 17:05 99.0 83 15 122/70 (87) 100 05/18/20 17:03 80 14 119/72 (88) 100 05/18/20 17:00 120/68 05/18/20 16:30 99.0 83 15 122/70 (87) 100 05/18/20 16:00 83 13 119/70 (86) 100 05/18/20 16:00 85 05/18/20 16:00 119/70 05/18/20 16:00 Mechanical Ventilator 05/18/20 16:00 40 05/18/20 15:30 85 15 123/71 (88) 100 05/18/20 15:04 82 14 40 05/18/20 15:00 85 12 121/71 (88) 100 05/18/20 15:00 121/71 05/18/20 14:30 83 12 124/71 (88) 100 05/18/20 14:00 124/71 05/18/20 14:00 86 16 121/71 (88) 100 05/18/20 13:30 88 17 116/70 (85) 100 05/18/20 13:00 89 16 116/68 (84) 100 05/18/20 13:00 116/68 05/18/20 12:30 90 16 108/66 (80) 100 05/18/20 12:00 Mechanical Ventilator 05/18/20 12:00 110/67 05/18/20 12:00 92 05/18/20 12:00 40 05/18/20 12:00 91 15 110/67 (81) 98 05/18/20 11:30 92 12 109/66 (80) 99 05/18/20 11:30 92 15 109/66 (80) 99 05/18/20 11:08 92 19 40 05/18/20 11:05 100 05/18/20 11:03 92 16 40 05/18/20 11:00 104/70 05/18/20 11:00 91 18 109/66 (80) 100 05/18/20 10:30 89 16 104/71 (82) 100 Intake and Output 05/18/20 05/19/20 19:00 07:00 Intake Total 1227.83 ml 1477.85 ml Output Total 445 ml 380 ml Balance 782.83 ml 1097.85 ml Free Water 300 ml IV Total 1227.83 ml 1017.85 ml Tube Feeding 160 ml Output Urine Total 445 ml 380 ml # Bowel Movements 3 Laboratory Tests 05/18/20 20:25: POC Whole Blood Glucose [Pending] 05/19/20 00:07: POC Whole Blood Glucose 131H 05/19/20 03:55: White Blood Count 17.3H, Red Blood Count 3.43L, Hemoglobin 10.5L, Hematocrit 31.0L, Mean Corpuscular Volume 91, Mean Corpuscular Hemoglobin 30.7, Mean Corpuscular Hemoglobin Concent 33.9, Red Cell Distribution Width 12.8, Platelet Count 84L, Mean Platelet Volume 13.8H, Neutrophils (%) (Auto) , Lymphocytes (%) (Auto) , Monocytes (%) (Auto) , Eosinophils (%) (Auto) , Basophils (%) (Auto) , Differential Total Cells Counted 100, Neutrophils % (Manual) 94H, Lymphocytes % (Manual) 5L, Monocytes % (Manual) 1, Eosinophils % (Manual) 0, Basophils % ( Manual) 0, Band Neutrophils 0, Platelet Estimate DecreasedL, Platelet Morphology Normal, Red Blood Cell Morphology Normal, Sodium Level 146H, Potassium Level 3.4L, Chloride Level 113H, Carbon Dioxide Level 20L, Anion Gap 13, Blood Urea Nitrogen 53H, Creatinine 1.2, Estimat Glomerular Filtration Rate 44.3, Glucose Level 172H, Calcium Level 8.8, Magnesium Level 2.1, Pro-B-Type Natriuretic Peptide 31015W, Random Vancomycin Level 23.1 05/19/20 07:32: Arterial Blood pH 7.466H, Arterial Blood Partial Pressure CO2 23.0*L, Arterial Blood Partial Pressure O2 101.3H, Arterial Blood HCO3 16.2*L, Arterial Blood Oxygen Saturation 97.3, Arterial Blood Base Excess -6.0L, Anthony Test Positive Height (Feet): 5 Height (Inches): 4.00 Weight (Pounds): 149 General Appearance: WD/WN EENT: PERRL/EOMI Cardiovascular: normal rate Respiratory/Chest: decreased breath sounds Extremities: normal range of motion Neurologic: unresponsive Jessica Wade MD May 19, 2020 10:21
--- NOTE | 2020-05-19 10:32 | Pulmonology Progress Note ---
Subjective ROS Limited/Unobtainable: Yes Interval Events: Remains intubated; on levophed Constitutional: Reports: no symptoms HEENT: Repors: no symptoms Respiratory: Reports: no symptoms Cardiovascular: Reports: no symptoms Gastrointestinal/Abdominal: Reports: no symptoms Genitourinary: Reports: no symptoms Allergies: Coded Allergies: DIVALPROEX SODIUM (Verified Allergy, Unknown, 05/14/20) PENICILLINS (Verified Allergy, Unknown, 05/14/20) All Systems: reviewed and negative except above Objective Last 24 Hour Vital Signs Date Time Temp Pulse Resp B/P (MAP) Pulse Ox O2 Delivery O2 Flow Rate FiO2 05/19/20 08:00 40 05/19/20 08:00 87 05/19/20 06:50 82 14 40 05/19/20 06:30 85 25 05/19/20 06:00 105/67 05/19/20 06:00 90 19 105/67 (80) 98 05/19/20 05:00 82 16 100/66 (77) 99 05/19/20 05:00 100/66 05/19/20 04:00 85 05/19/20 04:00 103/64 05/19/20 04:00 40 05/19/20 04:00 Mechanical Ventilator 05/19/20 04:00 98.2 83 17 103/64 (77) 99 05/19/20 03:33 87 17 40 05/19/20 03:00 84 18 84/49 (61) 99 05/19/20 03:00 84/49 05/19/20 02:00 98/61 05/19/20 02:00 81 18 98/61 (73) 98 05/19/20 01:00 89/60 05/19/20 01:00 83 18 89/60 (70) 98 05/19/20 00:00 88 05/19/20 00:00 93/63 05/19/20 00:00 98.7 86 19 96/63 (74) 99 05/19/20 00:00 40 05/19/20 00:00 Mechanical Ventilator 05/18/20 23:52 88 100/61 05/18/20 23:10 87 16 40 05/18/20 23:00 100/61 05/18/20 23:00 86 18 100/61 (74) 98 05/18/20 22:00 87 17 107/67 (80) 99 05/18/20 22:00 107/67 05/18/20 21:30 90 17 101/65 (77) 97 05/18/20 21:00 104/67 05/18/20 21:00 92 17 104/67 (79) 99 05/18/20 20:30 94 17 106/68 (81) 98 05/18/20 20:00 96 05/18/20 20:00 40 05/18/20 20:00 100/65 05/18/20 20:00 98.2 96 17 100/65 (77) 97 05/18/20 20:00 Mechanical Ventilator 05/18/20 19:36 96 14 40 05/18/20 19:30 97 16 98/64 (75) 98 05/18/20 19:00 104/62 05/18/20 19:00 96 16 104/62 (76) 98 05/18/20 18:30 95 17 101/61 (74) 98 05/18/20 18:00 111/66 05/18/20 18:00 90 16 111/66 (81) 98 05/18/20 17:44 122/70 05/18/20 17:30 89 17 116/67 (83) 100 05/18/20 17:05 99.0 83 15 122/70 (87) 100 05/18/20 17:03 80 14 119/72 (88) 100 05/18/20 17:00 120/68 05/18/20 16:30 99.0 83 15 122/70 (87) 100 05/18/20 16:00 83 13 119/70 (86) 100 05/18/20 16:00 85 05/18/20 16:00 119/70 05/18/20 16:00 Mechanical Ventilator 05/18/20 16:00 40 05/18/20 15:30 85 15 123/71 (88) 100 05/18/20 15:04 82 14 40 05/18/20 15:00 85 12 121/71 (88) 100 05/18/20 15:00 121/71 05/18/20 14:30 83 12 124/71 (88) 100 05/18/20 14:00 124/71 05/18/20 14:00 86 16 121/71 (88) 100 05/18/20 13:30 88 17 116/70 (85) 100 05/18/20 13:00 89 16 116/68 (84) 100 05/18/20 13:00 116/68 05/18/20 12:30 90 16 108/66 (80) 100 05/18/20 12:00 Mechanical Ventilator 05/18/20 12:00 110/67 05/18/20 12:00 92 05/18/20 12:00 40 05/18/20 12:00 91 15 110/67 (81) 98 05/18/20 11:30 92 12 109/66 (80) 99 05/18/20 11:30 92 15 109/66 (80) 99 05/18/20 11:08 92 19 40 05/18/20 11:05 100 05/18/20 11:03 92 16 40 05/18/20 11:00 104/70 05/18/20 11:00 91 18 109/66 (80) 100 Intake and Output 05/18/20 05/19/20 19:00 07:00 Intake Total 1227.83 ml 1477.85 ml Output Total 445 ml 380 ml Balance 782.83 ml 1097.85 ml Free Water 300 ml IV Total 1227.83 ml 1017.85 ml Tube Feeding 160 ml Output Urine Total 445 ml 380 ml # Bowel Movements 3 General Appearance: no acute distress HEENT: normocephalic Respiratory: chest wall non-tender, lungs clear Cardiovascular: normal peripheral pulses, normal rate Abdomen: normal bowel sounds Microbiology Date/Time Source Procedure Growth Status 05/17/20 16:00 Blood Blood Culture - Preliminary NO GROWTH AFTER 24 HOURS Resulted Laboratory Tests 05/18/20 20:25: POC Whole Blood Glucose [Pending] 05/19/20 00:07: POC Whole Blood Glucose 131H 05/19/20 03:55: White Blood Count 17.3H, Red Blood Count 3.43L, Hemoglobin 10.5L, Hematocrit 31.0L, Mean Corpuscular Volume 91, Mean Corpuscular Hemoglobin 30.7, Mean Corpuscular Hemoglobin Concent 33.9, Red Cell Distribution Width 12.8, Platelet Count 84L, Mean Platelet Volume 13.8H, Neutrophils (%) (Auto) , Lymphocytes (%) (Auto) , Monocytes (%) (Auto) , Eosinophils (%) (Auto) , Basophils (%) (Auto) , Differential Total Cells Counted 100, Neutrophils % (Manual) 94H, Lymphocytes % (Manual) 5L, Monocytes % (Manual) 1, Eosinophils % (Manual) 0, Basophils % ( Manual) 0, Band Neutrophils 0, Platelet Estimate DecreasedL, Platelet Morphology Normal, Red Blood Cell Morphology Normal, Sodium Level 146H, Potassium Level 3.4L, Chloride Level 113H, Carbon Dioxide Level 20L, Anion Gap 13, Blood Urea Nitrogen 53H, Creatinine 1.2, Estimat Glomerular Filtration Rate 44.3, Glucose Level 172H, Calcium Level 8.8, Magnesium Level 2.1, Pro-B-Type Natriuretic Peptide 55896E, Random Vancomycin Level 23.1 05/19/20 07:32: Arterial Blood pH 7.466H, Arterial Blood Partial Pressure CO2 23.0*L, Arterial Blood Partial Pressure O2 101.3H, Arterial Blood HCO3 16.2*L, Arterial Blood Oxygen Saturation 97.3, Arterial Blood Base Excess -6.0L, Anthony Test Positive Current Medications Medications (Trade) Dose Ordered Sig/Morgan Route PRN Reason Start Time Stop Time Status Last Admin Dose Admin Acetaminophen (Tylenol) 650 mg Q4H PRN GT Temp >100.5 05/16/20 06:15 06/15/20 06:14 05/16/20 08:46 Acetaminophen (Tylenol) 650 mg Q4H PRN RECTAL Temp >100.5 05/16/20 19:45 06/15/20 19:44 05/17/20 18:30 Chlorhexidine Gluconate (Lilliam-Hex 2%) 1 applic DAILY@2000 TOPIC 05/15/20 20:00 08/13/20 19:59 05/18/20 20:26 Dexamethasone Sodium Phosphate (Decadron 10mg/ ml Inj) 6 mg DAILY IV 05/16/20 09:00 05/24/20 08:59 05/19/20 08:44 Dextrose (Dextrose 50%) 25 ml Q30M PRN IV Hypoglycemia 05/15/20 18:00 08/13/20 17:59 Dextrose (Dextrose 50%) 50 ml Q30M PRN IV Hypoglycemia 05/15/20 18:00 08/13/20 17:59 Insulin Aspart (NovoLOG) Q4HR SUBQ 05/15/20 21:00 08/13/20 20:59 05/19/20 09:03 Meropenem 1 gm/ Sodium Chloride 55 ml @ 110 mls/hr Q12HR@0200,1400 IVPB 05/17/20 14:00 05/22/20 13:59 05/19/20 02:06 Morphine Sulfate (Morphine Sulfate) 2 mg EVERY 3 HOURS PRN IVP Moderate Pain (Pain Scale 4-6) 05/14/20 20:15 05/21/20 20:14 Morphine Sulfate (Morphine Sulfate) 4 mg EVERY 3 HOURS PRN IVP Severe Pain (Pain Scale 7-10) 05/14/20 20:15 05/21/20 20:14 Norepinephrine Bitartrate 16 mg/ Dextrose 516 ml @ 0 mls/hr Q24H IV 05/14/20 23:30 06/13/20 23:29 05/18/20 17:44 Pantoprazole (Protonix) 40 mg DAILY IV 05/15/20 09:00 06/14/20 08:59 05/19/20 08:44 Phenylephrine HCl 100 mg/Dextrose 250 ml @ 0 mls/hr Q24H IV 05/15/20 00:15 06/14/20 00:14 05/15/20 13:28 Potassium Chloride 100 ml @ 100 mls/hr Q1H IVPB 05/19/20 13:00 05/19/20 13:59 Sodium Chloride 1,000 ml @ 75 mls/hr [id number] IV 05/15/20 06:45 06/14/20 06:44 05/19/20 03:25 Vancomycin HCl ([facility]anco pharmacy to dose) 1 ea DAILY PRN MISC VANCOMYCIN 05/14/20 21:00 06/13/20 20:59 Vasopressin 100 units/Sodium Chloride 100 ml @ 0 mls/hr Q24H IV 05/15/20 00:15 06/14/20 00:14 Assessment/Plan Assessment/Plan IMPRESSION: 1. Acute respiratory failure. 2. Diabetes mellitus with hyperglycemia. 3. Septic shock. 4. Chronic G-tube. 5. Decubitus. 6. History of CHF. DISCUSSION: The patient is critically ill. Continue insulin. IV fluids to be given with hypotonic solutions. Broad-spectrum antibiotics. Pressors. Continue AC mode till stable. On 40% FiO2 DVT and GI prophylaxis. Respiratory precautions due to COVID-[address] Wade. I will follow carefully. ABG better Richard James Omar Syed MD May 19, 2020 10:32
--- NOTE | 2020-05-19 10:47 | NUR ---
RADIOLOGY DEPT., CHEST X-RAY DONE.-P.DYE
--- NOTE | 2020-05-19 10:53 | Consultation ---
History of Present Illness General Date patient seen: May 19, 2020 Reason for Hospitalization: Dyspnea/Respdistress Present Illness HPI This is a very unfortunate 70-year-old female multi-medical comorbidities who is a care facility patient that was recent identified to have come for covid positive respiratory insufficiency admitted to [facility] for further care and management. On admission identified to have abnormal labs cubitus ulcers sepsis low body weight malnutrition requiring care and management. Surgery called to eval and assist with care. Patient seen, patient evaluated, chart reviewed. Patient unable to participate examination or provide history at this time given medical condition. Chart reviewed. Allergies: Coded Allergies: DIVALPROEX SODIUM (Verified Allergy, Unknown, 05/14/20) PENICILLINS (Verified Allergy, Unknown, 05/14/20) COVID-19 Screening Contact w/high risk pt: Yes Recent Travel to affected area: Yes Experienced COVID-19 symptoms?: Yes COVID-19 symptoms experienced: Fever (T>100.4F or >38C) Medication History Scheduled Buspirone Hcl* (Buspar*), 5 MG GT THREE TIMES A DAY, (Reported) Multivitamin Liquid* (Multi-Delyn*), 5 ML GT DAILY, (Reported) Patient History History Provided By: Medical Record, PMD Healthcare decision maker Resuscitation status Advanced Directive on File Past Medical/Surgical History Past Medical/Surgical History: (1) Hypernatremia (2) Renal failure (3) Respiratory failure (4) Sepsis (5) Elevated d-dimer (6) COVID-19 (7) Pressure ulcer (8) Dementia (9) CVA (cerebral vascular accident) (10) T2DM (type 2 diabetes mellitus) (11) Gastrostomy present (12) COVID-19 (13) Rapid atrial fibrillation Family History Family History: Patient reports no known family medical history. Review of Systems Review of Symptoms General ROS: no weight loss or fever Psychological ROS: no depression or mood changes, no memory loss Ophthalmic ROS: no visual changes or eye irritation ENT ROS: no nasal congestion, hearing loss, dizziness Allergy and Immunology ROS: no allergic symptoms or urticaria Hematological and Lymphatic ROS: no swollen glands, unusual bleeding or bruising Endocrine ROS: no polyuria, polydipsia, weight changes, temperature intolerance Respiratory ROS: no cough, shortness of breath, or wheezing Cardiovascular ROS: no chest pain or dyspnea on exertion Gastrointestinal ROS: denies abdominal pain, bright red blood in stool. Musculoskeletal ROS: no myalgias or arthralgias Neurological ROS: no TIA or stroke symptoms Dermatological ROS: no new or changing skin lesions, rashes or pruritis limited given condition Physical Exam Physical Exam General appearance: alert, no distress, appears stated age Head: Normocephalic, without obvious abnormality, atraumatic Eyes: conjunctivae/corneas clear. PERRL, EOM's intact. Fundi benign Throat: Lips, mucosa, and tongue normal. Teeth and gums normal Neck: supple, symmetrical, trachea midline, no adenopathy, thyroid: not enlarged, symmetric, no tenderness/mass/nodules, no carotid bruit and no JVD Lungs: clear to auscultation bilaterally Heart: regular rate and rhythm, S1, S2 normal, no murmur, click, rub or gallop Abdomen: soft, non-tender. Bowel sounds normal. No masses, no organomegaly Extremities: extremities normal, atraumatic, no cyanosis or edema Pulses: 2+ and symmetric Skin: Skin see below Neurologic: Grossly normal Last 24 Hour Vital Signs Date Time Temp Pulse Resp B/P (MAP) Pulse Ox O2 Delivery O2 Flow Rate FiO2 05/19/20 10:20 106 15 97/59 (72) 100 05/19/20 10:15 107 15 87/61 (70) 100 05/19/20 10:07 97 15 84/54 (64) 100 05/19/20 10:00 92 14 87/53 (64) 100 05/19/20 09:45 96 15 89/55 (66) 100 05/19/20 09:30 99 17 91/57 (68) 100 05/19/20 09:15 93 17 97/61 (73) 100 05/19/20 09:00 88 14 117/70 (86) 100 05/19/20 08:30 89 14 111/65 (80) 100 05/19/20 08:00 40 05/19/20 08:00 99.2 87 16 106/65 (79) 100 05/19/20 08:00 87 05/19/20 07:30 82 18 105/62 (76) 99 05/19/20 07:00 81 21 106/61 (76) 100 05/19/20 06:50 82 14 40 05/19/20 06:30 85 25 05/19/20 06:00 105/67 05/19/20 06:00 90 19 105/67 (80) 98 05/19/20 05:00 82 16 100/66 (77) 99 05/19/20 05:00 100/66 05/19/20 04:00 85 05/19/20 04:00 103/64 05/19/20 04:00 40 05/19/20 04:00 Mechanical Ventilator 05/19/20 04:00 98.2 83 17 103/64 (77) 99 05/19/20 03:33 87 17 40 05/19/20 03:00 84 18 84/49 (61) 99 05/19/20 03:00 84/49 05/19/20 02:00 98/61 05/19/20 02:00 81 18 98/61 (73) 98 05/19/20 01:00 89/60 05/19/20 01:00 83 18 89/60 (70) 98 05/19/20 00:00 88 05/19/20 00:00 93/63 05/19/20 00:00 98.7 86 19 96/63 (74) 99 05/19/20 00:00 40 05/19/20 00:00 Mechanical Ventilator 05/18/20 23:52 88 100/61 05/18/20 23:10 87 16 40 05/18/20 23:00 100/61 05/18/20 23:00 86 18 100/61 (74) 98 05/18/20 22:00 87 17 107/67 (80) 99 05/18/20 22:00 107/67 05/18/20 21:30 90 17 101/65 (77) 97 05/18/20 21:00 104/67 05/18/20 21:00 92 17 104/67 (79) 99 05/18/20 20:30 94 17 106/68 (81) 98 05/18/20 20:00 96 05/18/20 20:00 40 05/18/20 20:00 100/65 05/18/20 20:00 98.2 96 17 100/65 (77) 97 05/18/20 20:00 Mechanical Ventilator 05/18/20 19:36 96 14 40 05/18/20 19:30 97 16 98/64 (75) 98 05/18/20 19:00 104/62 05/18/20 19:00 96 16 104/62 (76) 98 05/18/20 18:30 95 17 101/61 (74) 98 05/18/20 18:00 111/66 05/18/20 18:00 90 16 111/66 (81) 98 05/18/20 17:44 122/70 05/18/20 17:30 89 17 116/67 (83) 100 05/18/20 17:05 99.0 83 15 122/70 (87) 100 05/18/20 17:03 80 14 119/72 (88) 100 05/18/20 17:00 120/68 05/18/20 16:30 99.0 83 15 122/70 (87) 100 05/18/20 16:00 83 13 119/70 (86) 100 05/18/20 16:00 85 05/18/20 16:00 119/70 05/18/20 16:00 Mechanical Ventilator 05/18/20 16:00 40 05/18/20 15:30 85 15 123/71 (88) 100 05/18/20 15:04 82 14 40 05/18/20 15:00 85 12 121/71 (88) 100 05/18/20 15:00 121/71 05/18/20 14:30 83 12 124/71 (88) 100 05/18/20 14:00 124/71 05/18/20 14:00 86 16 121/71 (88) 100 05/18/20 13:30 88 17 116/70 (85) 100 05/18/20 13:00 89 16 116/68 (84) 100 05/18/20 13:00 116/68 05/18/20 12:30 90 16 108/66 (80) 100 05/18/20 12:00 Mechanical Ventilator 05/18/20 12:00 110/67 05/18/20 12:00 92 05/18/20 12:00 40 05/18/20 12:00 91 15 110/67 (81) 98 05/18/20 11:30 92 12 109/66 (80) 99 05/18/20 11:30 92 15 109/66 (80) 99 05/18/20 11:08 92 19 40 05/18/20 11:05 100 05/18/20 11:03 92 16 40 05/18/20 11:00 104/70 05/18/20 11:00 91 18 109/66 (80) 100 Intake and Output 05/18/20 05/19/20 19:00 07:00 Intake Total 1227.83 ml 1517.85 ml Output Total 445 ml 480 ml Balance 782.83 ml 1037.85 ml Free Water 310 ml IV Total 1227.83 ml 1017.85 ml Tube Feeding 190 ml Output Urine Total 445 ml 480 ml # Bowel Movements 3 Laboratory Tests Test 05/18/20 20:25 05/19/20 00:07 05/19/20 03:55 05/19/20 07:32 POC Whole Blood Glucose Pending 131 MG/DL (74-106) H White Blood Count 17.3 K/UL (4.8-10.8) H Red Blood Count 3.43 M/UL (4.20-5.40) L Hemoglobin 10.5 G/DL (12.0-16.0) L Hematocrit 31.0 % (37.0-47.0) L Mean Corpuscular Volume 91 FL (80-99) Mean Corpuscular Hemoglobin 30.7 PG (27.0-31.0) Mean Corpuscular Hemoglobin Concent 33.9 G/DL (32.0-36.0) Red Cell Distribution Width 12.8 % (11.6-14.8) Platelet Count 84 K/UL (150-450) L Mean Platelet Volume 13.8 FL (6.5-10.1) H Neutrophils (%) (Auto) % (45.0-75.0) Lymphocytes (%) (Auto) % (20.0-45.0) Monocytes (%) (Auto) % (1.0-10.0) Eosinophils (%) (Auto) % (0.0-3.0) Basophils (%) (Auto) % (0.0-2.0) Differential Total Cells Counted 100 Neutrophils % (Manual) 94 % (45-75) H Lymphocytes % (Manual) 5 % (20-45) L Monocytes % (Manual) 1 % (1-10) Eosinophils % (Manual) 0 % (0-3) Basophils % (Manual) 0 % (0-2) Band Neutrophils 0 % (0-8) Platelet Estimate Decreased L Platelet Morphology Normal Red Blood Cell Morphology Normal Sodium Level 146 MMOL/L (136-145) H Potassium Level 3.4 MMOL/L (3.5-5.1) L Chloride Level 113 MMOL/L (98-107) H Carbon Dioxide Level 20 MMOL/L (21-32) L Anion Gap 13 mmol/L (5-15) Blood Urea Nitrogen 53 mg/dL (7-18) H Creatinine 1.2 MG/DL (0.55-1.30) Estimat Glomerular Filtration Rate 44.3 mL/min (>60) Glucose Level 172 MG/DL (74-106) H Calcium Level 8.8 MG/DL (8.5-10.1) Magnesium Level 2.1 MG/DL (1.8-2.4) Pro-B-Type Natriuretic Peptide 95528 pg/mL (0-125) H Random Vancomycin Level 23.1 ug/mL Arterial Blood pH 7.466 (7.350-7.450) Arterial Blood Partial Pressure CO2 23.0 mmHg (35.0-45.0) *L Arterial Blood Partial Pressure O2 101.3 mmHg (75.0-100.0) H Arterial Blood HCO3 16.2 mmol/L (22.0-26.0) *L Arterial Blood Oxygen Saturation 97.3 % (95-100) Arterial Blood Base Excess -6.0 (-2-2) L Anthony Test Positive Height (Feet): 5 Height (Inches): 4.00 Weight (Pounds): 149 Medications Current Medications Medications (Trade) Dose Ordered Sig/Morgan Route PRN Reason Start Time Stop Time Status Last Admin Dose Admin Acetaminophen (Tylenol) 650 mg Q4H PRN GT Temp >100.5 05/16/20 06:15 06/15/20 06:14 05/16/20 08:46 Acetaminophen (Tylenol) 650 mg Q4H PRN RECTAL Temp >100.5 05/16/20 19:45 06/15/20 19:44 05/17/20 18:30 Chlorhexidine Gluconate (Lilliam-Hex 2%) 1 applic DAILY@1999 TOPIC 05/15/20 20:00 08/13/20 19:59 05/18/20 20:26 Dexamethasone Sodium Phosphate (Decadron 10mg/ ml Inj) 6 mg DAILY IV 05/16/20 09:00 05/24/20 08:59 05/19/20 08:44 Dextrose (Dextrose 50%) 25 ml Q30M PRN IV Hypoglycemia 05/15/20 18:00 08/13/20 17:59 Dextrose (Dextrose 50%) 50 ml Q30M PRN IV Hypoglycemia 05/15/20 18:00 08/13/20 17:59 Insulin Aspart (NovoLOG) Q4HR SUBQ 05/15/20 21:00 08/13/20 20:59 05/19/20 09:03 Meropenem 1 gm/ Sodium Chloride 55 ml @ 110 mls/hr Q12HR@0200,1400 IVPB 05/17/20 14:00 05/22/20 13:59 05/19/20 02:06 Morphine Sulfate (Morphine Sulfate) 2 mg EVERY 3 HOURS PRN IVP Moderate Pain (Pain Scale 4-6) 05/14/20 20:15 05/21/20 20:14 Morphine Sulfate (Morphine Sulfate) 4 mg EVERY 3 HOURS PRN IVP Severe Pain (Pain Scale 7-10) 05/14/20 20:15 05/21/20 20:14 Norepinephrine Bitartrate 16 mg/ Dextrose 516 ml @ 0 mls/hr Q24H IV 05/14/20 23:30 06/13/20 23:29 05/18/20 17:44 Pantoprazole (Protonix) 40 mg DAILY IV 05/15/20 09:00 06/14/20 08:59 05/19/20 08:44 Phenylephrine HCl 100 mg/Dextrose 250 ml @ 0 mls/hr Q24H IV 05/15/20 00:15 06/14/20 00:14 05/15/20 13:28 Potassium Chloride 100 ml @ 100 mls/hr Q1H IVPB 05/19/20 13:00 05/19/20 13:59 Sodium Chloride 1,000 ml @ 75 mls/hr [id number] IV 05/15/20 06:45 06/14/20 06:44 05/19/20 03:25 Vancomycin HCl ([facility] pharmacy to dose) 1 ea DAILY PRN MISC VANCOMYCIN 05/14/20 21:00 06/13/20 20:59 Vasopressin 100 units/Sodium Chloride 100 ml @ 0 mls/hr Q24H IV 05/15/20 00:15 06/14/20 00:14 Assessment/Plan Problem List: (1) Hypernatremia ICD Codes: E87.0 - Hyperosmolality and hypernatremia SNOMED: 123767516 (2) Renal failure ICD Codes: N19 - Unspecified kidney failure SNOMED: 18775032 (3) Respiratory failure ICD Codes: J96.90 - Respiratory failure, unspecified, unspecified whether with hypoxia or hypercapnia SNOMED: 349713702 (4) Sepsis Assessment & Plan: COVID + leukocytosis anemia electrolytes abnormal on iv fluids renal input appreciated cxr noted abx as per ID will follow with recs Interim placement of orogastric tube, also documented on recent abdominal radiograph. Stable satisfactory position of endotracheal tube and right jugular central venous catheter. There is increased pleural fluid and likely left basilar consolidation/atelectasis. The right lung and pleural space remain clear. Impression: Increasing left pleural fluid and likely basilar consolidation/atelectasis. Interim orogastric intubation ICD Codes: A41.9 - Sepsis, unspecified organism SNOMED: 35357292 (5) Elevated d-dimer ICD Codes: R79.89 - Other specified abnormal findings of blood chemistry SNOMED: 689204286 (6) COVID-19 Assessment & Plan: ++ ICD Codes: U07.1 - COVID-19 SNOMED: 168863955 (7) Pressure ulcer Assessment & Plan: Pt presented on admission with multiple Pressure injuries.DTPI noted to R Buttocks (L)3.8cm x (W)3.4cm. Base of wound is purpuric ,fluctuant with surrounding maroon and indurated borders. DTPI Upper L Buttocks(L)5.5cm x (W)4cm. Base of wound is maroon and indurated. Borders are irregular. Non-Blanchable erythema without induration/fluctuance L lower buttocks(L)4cm x ( W)7cm. R and L heels are soft but blanchable. Erosion noted at peristomal GT site. Site is erythematous and excoriated. Small amt. sanguineous exudate. Tx.Plan: Apply Moisture Barrier Paste to Sacrum, R and L Buttocks. Cover each area with Optifoam drsg. Change every 3 days and prn. Apply Moisture Barrier Paste to R and L Ischial tuberosities with each incontinence care. Apply Cavilon Skin Barrier to both heels. Cover each heel and malleoli with Optifoam drsg. Change every 7 days and prn. Reposition at least every 2hours or as tolerated. Off-load heels with pillow. APM/DARIN Mattress overlay. Apply Zinc Oxide Paste TID to GT site. Leave open to Air. ICD Codes: L89.90 - Pressure ulcer of unspecified site, unspecified stage SNOMED: 257659685 (8) Dementia ICD Codes: F03.90 - Unspecified dementia without behavioral disturbance SNOMED: 04474007 (9) CVA (cerebral vascular accident) ICD Codes: I63.9 - Cerebral infarction, unspecified SNOMED: 236348377 (10) T2DM (type 2 diabetes mellitus) ICD Codes: E11.9 - Type 2 diabetes mellitus without complications SNOMED: 48579992 (11) Gastrostomy present ICD Codes: Z93.1 - Gastrostomy status SNOMED: 71552084, 86481202, 522746946 (12) COVID-19 ICD Codes: U07.1 - COVID-19 SNOMED: 267162504 (13) Rapid atrial fibrillation ICD Codes: I48.91 - Unspecified atrial fibrillation SNOMED: 986834112 Paul Garcia May 19, 2020 10:53
--- NOTE | 2020-05-19 11:41 | Diagnostic Imaging Report ---
Indication: Shortness of breath Technique: One view of the chest Comparison: 05/16/2020 Findings: Interim placement of orogastric tube, also documented on recent abdominal radiograph. Stable satisfactory position of endotracheal tube and right jugular central venous catheter. There is increased pleural fluid and likely left basilar consolidation/atelectasis. The right lung and pleural space remain clear. Impression: Increasing left pleural fluid and likely basilar consolidation/atelectasis. Interim orogastric intubation Other stable findings as described
--- NOTE | 2020-05-19 12:00 | NUR ---
NURSE NOTES: Pt repositioned, oral care provided, axillary temp noted 100.5 F, tylenol given via NGT. Will reassess temp. Pt in no distress.
--- NOTE | 2020-05-19 12:57 | Infectious Diseases Prog Note ---
Assessment/Plan 70 yo female with PMHx of Dementia, DM, CVA ( S/P PEG), COVID 19 infection and pressure ulcers. Septic Shock-combination cardiogenic and septic; pressors requirements improving Gram positive bacteremia- contaminant -05/14 Bcx 1/ S. haemolyticus; 05/17 Bcx NTD UTI UA (+); ucx 10-20k P. mirabilis (S Ceftriaxone, Cefepime) PNA, superimposed bacterial -05/19 CXR: Increasing left pleural fluid and likely basilar consolidation/ atelectasis. Interim orogastric intubation 05/16 CXR: Retrocardiac density may represent atelectasis versus infiltrate. CXR 05/14/20 showed Retrocardiac atelectasis/infiltrate with Pulmonary venous congestion. sp cx MDR E.coli (S Cefepime, Meropenem, Zosyn) Hx of COVID 19 - Bacteria secondary infection? Asp PNA? COVID 19 tested Pos [facility]F - about 3 week [employer] -still positive Rapid COVID PCR 05/14 Resp Fail Intuabted on Vent Leukocytosis; improving (on steroids) Fever; improving EMA, improving SVT -sp cardioversion Hyperglycemia Dementia DM Hx CVA ( S/P PEG) pressure ulcers PLAN - Meropenem #3 (abx d #6) Dc empiric Vancomcyin #6 - On Decadron #6 per pulm -05/17 SP Cefepime #4 - f/u Cultures - Monitor CBC and Temps -f/u repat Bcx x2 -out of the window for Remdesivir- doubt beneficial at this point and shock more bacterial related Thank you for consulting [facility]. Will continue to follow along with you. Discussed with RN. Subjective Allergies: Coded Allergies: DIVALPROEX SODIUM (Verified Allergy, Unknown, 05/14/20) PENICILLINS (Verified Allergy, Unknown, 05/14/20) afebrile in 24hrs Wbc and cr improving Fio2 40% levo at 10 repeat Bcx NTD Objective Last 24 Hour Vital Signs Date Time Temp Pulse Resp B/P (MAP) Pulse Ox O2 Delivery O2 Flow Rate FiO2 05/19/20 12:00 96 05/19/20 12:00 40 05/19/20 11:40 96 19 40 05/19/20 11:30 94 20 96/61 (73) 100 05/19/20 11:15 96 22 104/61 (75) 100 05/19/20 11:11 100 05/19/20 11:11 95 24 40 40 05/19/20 11:00 97 19 93/63 (73) 100 05/19/20 10:45 102 15 90/56 (67) 100 05/19/20 10:30 103 16 96/60 (72) 100 05/19/20 10:15 107 15 87/61 (70) 100 05/19/20 10:00 92 14 87/53 (64) 100 05/19/20 09:45 96 15 89/55 (66) 100 05/19/20 09:30 99 17 91/57 (68) 100 05/19/20 09:15 93 17 97/61 (73) 100 05/19/20 09:00 88 14 117/70 (86) 100 05/19/20 08:30 89 14 111/65 (80) 100 05/19/20 08:00 40 05/19/20 08:00 99.2 87 16 106/65 (79) 100 05/19/20 08:00 87 05/19/20 07:30 82 18 105/62 (76) 99 05/19/20 07:00 81 21 106/61 (76) 100 05/19/20 06:50 82 14 40 05/19/20 06:30 85 25 05/19/20 06:00 105/67 05/19/20 06:00 90 19 105/67 (80) 98 05/19/20 05:00 82 16 100/66 (77) 99 05/19/20 05:00 100/66 05/19/20 04:00 85 05/19/20 04:00 103/64 05/19/20 04:00 40 05/19/20 04:00 Mechanical Ventilator 05/19/20 04:00 98.2 83 17 103/64 (77) 99 05/19/20 03:33 87 17 40 05/19/20 03:00 84 18 84/49 (61) 99 05/19/20 03:00 84/49 05/19/20 02:00 98/61 05/19/20 02:00 81 18 98/61 (73) 98 05/19/20 01:00 89/60 05/19/20 01:00 83 18 89/60 (70) 98 05/19/20 00:00 88 05/19/20 00:00 93/63 05/19/20 00:00 98.7 86 19 96/63 (74) 99 05/19/20 00:00 40 05/19/20 00:00 Mechanical Ventilator 05/18/20 23:52 88 100/61 05/18/20 23:10 87 16 40 05/18/20 23:00 100/61 05/18/20 23:00 86 18 100/61 (74) 98 05/18/20 22:00 87 17 107/67 (80) 99 05/18/20 22:00 107/67 05/18/20 21:30 90 17 101/65 (77) 97 05/18/20 21:00 104/67 05/18/20 21:00 92 17 104/67 (79) 99 05/18/20 20:30 94 17 106/68 (81) 98 05/18/20 20:00 96 05/18/20 20:00 40 05/18/20 20:00 100/65 05/18/20 20:00 98.2 96 17 100/65 (77) 97 05/18/20 20:00 Mechanical Ventilator 05/18/20 19:36 96 14 40 05/18/20 19:30 97 16 98/64 (75) 98 05/18/20 19:00 104/62 05/18/20 19:00 96 16 104/62 (76) 98 05/18/20 18:30 95 17 101/61 (74) 98 05/18/20 18:00 111/66 05/18/20 18:00 90 16 111/66 (81) 98 05/18/20 17:44 122/70 05/18/20 17:30 89 17 116/67 (83) 100 05/18/20 17:05 99.0 83 15 122/70 (87) 100 05/18/20 17:03 80 14 119/72 (88) 100 05/18/20 17:00 120/68 05/18/20 16:30 99.0 83 15 122/70 (87) 100 05/18/20 16:00 83 13 119/70 (86) 100 05/18/20 16:00 85 05/18/20 16:00 119/70 05/18/20 16:00 Mechanical Ventilator 05/18/20 16:00 40 05/18/20 15:30 85 15 123/71 (88) 100 05/18/20 15:04 82 14 40 05/18/20 15:00 85 12 121/71 (88) 100 05/18/20 15:00 121/71 05/18/20 14:30 83 12 124/71 (88) 100 05/18/20 14:00 124/71 05/18/20 14:00 86 16 121/71 (88) 100 05/18/20 13:30 88 17 116/70 (85) 100 05/18/20 13:00 89 16 116/68 (84) 100 05/18/20 13:00 116/68 Height (Feet): 5 Height (Inches): 4.00 Weight (Pounds): 149 GEN: On Vent HEENT: NCAT, MMM, Intubated Pulm: Equal rise and fall B/L ABD: Soft, ND, PEG (No e/p) Neuro: Not following, Intubated SKIN: Exposed skin with no rash, Normal in color Microbiology Date/Time Source Procedure Growth Status 05/17/20 16:00 Blood Blood Culture - Preliminary NO GROWTH AFTER 24 HOURS Resulted Laboratory Tests Test 05/18/20 20:25 05/19/20 00:07 05/19/20 03:55 05/19/20 07:32 POC Whole Blood Glucose Pending 131 MG/DL (74-106) H White Blood Count 17.3 K/UL (4.8-10.8) H Red Blood Count 3.43 M/UL (4.20-5.40) L Hemoglobin 10.5 G/DL (12.0-16.0) L Hematocrit 31.0 % (37.0-47.0) L Mean Corpuscular Volume 91 FL (80-99) Mean Corpuscular Hemoglobin 30.7 PG (27.0-31.0) Mean Corpuscular Hemoglobin Concent 33.9 G/DL (32.0-36.0) Red Cell Distribution Width 12.8 % (11.6-14.8) Platelet Count 84 K/UL (150-450) L Mean Platelet Volume 13.8 FL (6.5-10.1) H Neutrophils (%) (Auto) % (45.0-75.0) Lymphocytes (%) (Auto) % (20.0-45.0) Monocytes (%) (Auto) % (1.0-10.0) Eosinophils (%) (Auto) % (0.0-3.0) Basophils (%) (Auto) % (0.0-2.0) Differential Total Cells Counted 100 Neutrophils % (Manual) 94 % (45-75) H Lymphocytes % (Manual) 5 % (20-45) L Monocytes % (Manual) 1 % (1-10) Eosinophils % (Manual) 0 % (0-3) Basophils % (Manual) 0 % (0-2) Band Neutrophils 0 % (0-8) Platelet Estimate Decreased L Platelet Morphology Normal Red Blood Cell Morphology Normal Sodium Level 146 MMOL/L (136-145) H Potassium Level 3.4 MMOL/L (3.5-5.1) L Chloride Level 113 MMOL/L (98-107) H Carbon Dioxide Level 20 MMOL/L (21-32) L Anion Gap 13 mmol/L (5-15) Blood Urea Nitrogen 53 mg/dL (7-18) H Creatinine 1.2 MG/DL (0.55-1.30) Estimat Glomerular Filtration Rate 44.3 mL/min (>60) Glucose Level 172 MG/DL (74-106) H Calcium Level 8.8 MG/DL (8.5-10.1) Magnesium Level 2.1 MG/DL (1.8-2.4) Pro-B-Type Natriuretic Peptide 74424 pg/mL (0-125) H Random Vancomycin Level 23.1 ug/mL Arterial Blood pH 7.466 (7.350-7.450) Arterial Blood Partial Pressure CO2 23.0 mmHg (35.0-45.0) *L Arterial Blood Partial Pressure O2 101.3 mmHg (75.0-100.0) H Arterial Blood HCO3 16.2 mmol/L (22.0-26.0) *L Arterial Blood Oxygen Saturation 97.3 % (95-100) Arterial Blood Base Excess -6.0 (-2-2) L Anthony Test Positive Current Medications Medications (Trade) Dose Ordered Sig/Morgan Route PRN Reason Start Time Stop Time Status Last Admin Dose Admin Acetaminophen (Tylenol) 650 mg Q4H PRN GT Temp >100.5 05/16/20 06:15 10/7/20 06:14 05/16/20 08:46 Acetaminophen (Tylenol) 650 mg Q4H PRN RECTAL Temp >100.5 05/16/20 19:45 06/15/20 19:44 05/17/20 18:30 Chlorhexidine Gluconate (Lilliam-Hex 2%) 1 applic DAILY@2000 TOPIC 05/15/20 20:00 08/13/20 19:59 05/18/20 20:26 Dexamethasone Sodium Phosphate (Decadron 10mg/ ml Inj) 6 mg DAILY IV 05/16/20 09:00 05/24/20 08:59 05/19/20 08:44 Dextrose (Dextrose 50%) 25 ml Q30M PRN IV Hypoglycemia 05/15/20 18:00 08/13/20 17:59 Dextrose (Dextrose 50%) 50 ml Q30M PRN IV Hypoglycemia 05/15/20 18:00 08/13/20 17:59 Insulin Aspart (NovoLOG) Q4HR SUBQ 05/15/20 21:00 08/13/20 20:59 05/19/20 09:03 Meropenem 1 gm/ Sodium Chloride 55 ml @ 110 mls/hr Q12HR@0200,1400 IVPB 05/17/20 14:00 05/22/20 13:59 05/19/20 02:06 Morphine Sulfate (Morphine Sulfate) 2 mg EVERY 3 HOURS PRN IVP Moderate Pain (Pain Scale 4-6) 05/14/20 20:15 05/21/20 20:14 Morphine Sulfate (Morphine Sulfate) 4 mg EVERY 3 HOURS PRN IVP Severe Pain (Pain Scale 7-10) 05/14/20 20:15 05/21/20 20:14 Norepinephrine Bitartrate 16 mg/ Dextrose 516 ml @ 0 mls/hr Q24H IV 05/14/20 23:30 06/13/20 23:29 05/18/20 17:44 Pantoprazole (Protonix) 40 mg DAILY IV 05/15/20 09:00 06/14/20 08:59 05/19/20 08:44 Phenylephrine HCl 100 mg/Dextrose 250 ml @ 0 mls/hr Q24H IV 05/15/20 00:15 06/14/20 00:14 05/15/20 13:28 Potassium Chloride 100 ml @ 100 mls/hr Q1H IVPB 05/19/20 13:00 05/19/20 13:59 Sodium Chloride 1,000 ml @ 75 mls/hr [id number] IV 05/15/20 06:45 06/14/20 06:44 05/19/20 03:25 Vancomycin HCl ([facility] pharmacy to dose) 1 ea DAILY PRN MISC VANCOMYCIN 05/14/20 21:00 06/13/20 20:59 Vasopressin 100 units/Sodium Chloride 100 ml @ 0 mls/hr Q24H IV 05/15/20 00:15 06/14/20 00:14 Yomaira Terry M.D. May 19, 2020 12:57
--- NOTE | 2020-05-19 13:00 | NUR ---
NURSE NOTES: Axillary temp now 99.5 F.
[2020-05-19] MEDS: Acetaminophen 650mg/20.3ml GT PRN ×2 (13:17→19:49)
--- NOTE | 2020-05-19 13:33 | General Progress Note ---
Assessment/Plan Status: unchanged Assessment/Plan: 1. History of CVA. 2. Dementia. 3. Dysphagia with G-tube. 4. Cachexia. 5. Diabetes. 6. Pressure ulcers. 7. Hypothyroidism. 8. Legal blindness. 9. Currently COVID positive. GT has trice removed still some drainage from the GT site NGTF GT replacement when more stable Subjective ROS Limited/Unobtainable: No Allergies: Coded Allergies: DIVALPROEX SODIUM (Verified Allergy, Unknown, 05/14/20) PENICILLINS (Verified Allergy, Unknown, 05/14/20) Objective Last 24 Hour Vital Signs Date Time Temp Pulse Resp B/P (MAP) Pulse Ox O2 Delivery O2 Flow Rate FiO2 05/19/20 12:00 96 05/19/20 12:00 40 05/19/20 11:40 96 19 40 05/19/20 11:30 94 20 96/61 (73) 100 05/19/20 11:15 96 22 104/61 (75) 100 05/19/20 11:11 100 05/19/20 11:11 95 24 40 40 05/19/20 11:00 97 19 93/63 (73) 100 05/19/20 10:45 102 15 90/56 (67) 100 05/19/20 10:30 103 16 96/60 (72) 100 05/19/20 10:15 107 15 87/61 (70) 100 05/19/20 10:00 92 14 87/53 (64) 100 05/19/20 09:45 96 15 89/55 (66) 100 05/19/20 09:30 99 17 91/57 (68) 100 05/19/20 09:15 93 17 97/61 (73) 100 05/19/20 09:00 88 14 117/70 (86) 100 05/19/20 08:30 89 14 111/65 (80) 100 05/19/20 08:00 40 05/19/20 08:00 99.2 87 16 106/65 (79) 100 05/19/20 08:00 87 05/19/20 07:30 82 18 105/62 (76) 99 05/19/20 07:00 81 21 106/61 (76) 100 05/19/20 06:50 82 14 40 05/19/20 06:30 85 25 05/19/20 06:00 105/67 05/19/20 06:00 90 19 105/67 (80) 98 05/19/20 05:00 82 16 100/66 (77) 99 05/19/20 05:00 100/66 05/19/20 04:00 85 05/19/20 04:00 103/64 05/19/20 04:00 40 05/19/20 04:00 Mechanical Ventilator 05/19/20 04:00 98.2 83 17 103/64 (77) 99 05/19/20 03:33 87 17 40 05/19/20 03:00 84 18 84/49 (61) 99 05/19/20 03:00 84/49 05/19/20 02:00 98/61 05/19/20 02:00 81 18 98/61 (73) 98 05/19/20 01:00 89/60 05/19/20 01:00 83 18 89/60 (70) 98 05/19/20 00:00 88 05/19/20 00:00 93/63 05/19/20 00:00 98.7 86 19 96/63 (74) 99 05/19/20 00:00 40 05/19/20 00:00 Mechanical Ventilator 05/18/20 23:52 88 100/61 05/18/20 23:10 87 16 40 05/18/20 23:00 100/61 05/18/20 23:00 86 18 100/61 (74) 98 05/18/20 22:00 87 17 107/67 (80) 99 05/18/20 22:00 107/67 05/18/20 21:30 90 17 101/65 (77) 97 05/18/20 21:00 104/67 05/18/20 21:00 92 17 104/67 (79) 99 05/18/20 20:30 94 17 106/68 (81) 98 05/18/20 20:00 96 05/18/20 20:00 40 05/18/20 20:00 100/65 05/18/20 20:00 98.2 96 17 100/65 (77) 97 05/18/20 20:00 Mechanical Ventilator 05/18/20 19:36 96 14 40 05/18/20 19:30 97 16 98/64 (75) 98 05/18/20 19:00 104/62 05/18/20 19:00 96 16 104/62 (76) 98 05/18/20 18:30 95 17 101/61 (74) 98 05/18/20 18:00 111/66 05/18/20 18:00 90 16 111/66 (81) 98 05/18/20 17:44 122/70 05/18/20 17:30 89 17 116/67 (83) 100 05/18/20 17:05 99.0 83 15 122/70 (87) 100 05/18/20 17:03 80 14 119/72 (88) 100 05/18/20 17:00 120/68 05/18/20 16:30 99.0 83 15 122/70 (87) 100 05/18/20 16:00 83 13 119/70 (86) 100 05/18/20 16:00 85 05/18/20 16:00 119/70 05/18/20 16:00 Mechanical Ventilator 05/18/20 16:00 40 05/18/20 15:30 85 15 123/71 (88) 100 05/18/20 15:04 82 14 40 05/18/20 15:00 85 12 121/71 (88) 100 05/18/20 15:00 121/71 05/18/20 14:30 83 12 124/71 (88) 100 05/18/20 14:00 124/71 05/18/20 14:00 86 16 121/71 (88) 100 Intake and Output 05/18/20 05/19/20 19:00 07:00 Intake Total 1227.83 ml 1517.85 ml Output Total 445 ml 480 ml Balance 782.83 ml 1037.85 ml Free Water 310 ml IV Total 1227.83 ml 1017.85 ml Tube Feeding 190 ml Output Urine Total 445 ml 480 ml # Bowel Movements 3 Laboratory Tests 05/18/20 20:25: POC Whole Blood Glucose [Pending] 05/19/20 00:07: POC Whole Blood Glucose 131H 05/19/20 03:55: White Blood Count 17.3H, Red Blood Count 3.43L, Hemoglobin 10.5L, Hematocrit 31.0L, Mean Corpuscular Volume 91, Mean Corpuscular Hemoglobin 30.7, Mean Corpuscular Hemoglobin Concent 33.9, Red Cell Distribution Width 12.8, Platelet Count 84L, Mean Platelet Volume 13.8H, Neutrophils (%) (Auto) , Lymphocytes (%) (Auto) , Monocytes (%) (Auto) , Eosinophils (%) (Auto) , Basophils (%) (Auto) , Differential Total Cells Counted 100, Neutrophils % (Manual) 94H, Lymphocytes % (Manual) 5L, Monocytes % (Manual) 1, Eosinophils % (Manual) 0, Basophils % ( Manual) 0, Band Neutrophils 0, Platelet Estimate DecreasedL, Platelet Morphology Normal, Red Blood Cell Morphology Normal, Sodium Level 146H, Potassium Level 3.4L, Chloride Level 113H, Carbon Dioxide Level 20L, Anion Gap 13, Blood Urea Nitrogen 53H, Creatinine 1.2, Estimat Glomerular Filtration Rate 44.3, Glucose Level 172H, Calcium Level 8.8, Magnesium Level 2.1, Pro-B-Type Natriuretic Peptide 81419I, Random Vancomycin Level 23.1 05/19/20 07:32: Arterial Blood pH 7.466H, Arterial Blood Partial Pressure CO2 23.0*L, Arterial Blood Partial Pressure O2 101.3H, Arterial Blood HCO3 16.2*L, Arterial Blood Oxygen Saturation 97.3, Arterial Blood Base Excess -6.0L, Anthony Test Positive Height (Feet): 5 Height (Inches): 4.00 Weight (Pounds): 149 General Appearance: no apparent distress EENT: normal ENT inspection Neck: supple Cardiovascular: normal rate Respiratory/Chest: decreased breath sounds Abdomen: normal bowel sounds, non tender, soft Extremities: non-tender Jhon Matos MD May 19, 2020 13:33
--- NOTE | 2020-05-19 14:00 | NUR ---
NURSE NOTES: Pt repositioned, temp now 98.4 F ax. No distress noted. Will continue to monitor.
--- NOTE | 2020-05-19 15:28 | NUR ---
[employer] SI: RESP FAILURE ETT/VENT DEPENDENT,RAPID AFIB,SEPSIS T. 100.5 HR 96 RR 18 B/P 99/61 AC 12 TV 500 FIO2 405 PEEP 5 WBC 17.3 K 3.4 BUN 53 BNP IS: IVF NS @ 75ML/HR MEROPENEM IV LEVOPHED GTT KCL IV X 1 ICU STATUS
--- NOTE | 2020-05-19 16:00 | NUR ---
NURSE NOTES: Pt repositioned, oral care provided, pt remains afebrile.
[2020-05-19] MEDS ORDERED: Tubing IV Secondary IV ONE (17:05)
[2020-05-19] MEDS ORDERED: NS 275ml ONE (17:05)
[2020-05-19] MEDS ORDERED: 1/2 NS 1000ml IV ONE (17:05)
--- NOTE | 2020-05-19 17:05 | Cardiac Electrophysiology PN ---
Assessment/Plan Assessment/Plan 1. [id number] myocardial infarction. Her troponin was 1.258,1.2,1.9, 3.4 and the down to 0.7 EKG does not show any acute ST-T wave abnormality and certainly no ST elevation. This is likely precipitated by septic shock as the patient is on pressors as well as Renal failure. The echocardiogram had poor windows. 2. PAF with RVR. S/P DCCV 3 times and can contribute to the patient's elevated troponin. No more fib or accelerated junctional rhythm. Can not use beta-ramakrishna or calcium-channel ramakrishna as the patient is still on Levophed. Loaded with digoxin and dig level is 1.6 3. Septic shock. The patient is on Levophed 12 mcg as well as broad-spectrum antibiotic with vancomycin and cefepime. 4. Severe hypernatremia with sodium of 174, BUN of 131, creatinine 2.7 due to dehydration. Sodium is 155 with BUN of 91 and creatinine of 1.9 with IV fluids. 5. Lactic acidosis, septic shock, on antibiotic. 6. Dysphagia, status post PEG placement. 7. History of CVA and dementia. 8. Respiratory failure, currently on the ventilator at 50% FiO2. KIMMY RN and Dr Wade Subjective Subjective In ICU in SR with no atrial fib or Junctional tach overnight. On Levophed 12 Mcg on the Vent 40% Fio2 Objective Last 24 Hour Vital Signs Date Time Temp Pulse Resp B/P (MAP) Pulse Ox O2 Delivery O2 Flow Rate FiO2 05/19/20 16:00 Mechanical Ventilator 05/19/20 16:00 95 05/19/20 16:00 94 17 92/62 (72) 100 05/19/20 16:00 40 05/19/20 16:00 92/62 05/19/20 15:30 95 22 103/64 (77) 99 05/19/20 15:16 94 18 40 05/19/20 15:00 95 18 100/66 (77) 100 05/19/20 15:00 100/66 05/19/20 14:30 98 20 95/59 (71) 100 05/19/20 14:00 99 20 95/62 (73) 100 05/19/20 14:00 95/62 05/19/20 13:50 99.5 05/19/20 13:30 95 17 102/65 (77) 100 05/19/20 13:00 99.5 96 17 99/61 (74) 95 05/19/20 13:00 99/61 05/19/20 12:30 96 17 99/61 (74) 99 05/19/20 12:00 100/62 05/19/20 12:00 100.5 95 18 100/62 (75) 100 05/19/20 12:00 96 05/19/20 12:00 Mechanical Ventilator 05/19/20 12:00 40 05/19/20 11:40 96 19 40 05/19/20 11:30 94 20 96/61 (73) 100 05/19/20 11:15 96 22 104/61 (75) 100 05/19/20 11:11 100 05/19/20 11:11 95 24 40 40 05/19/20 11:00 97 19 93/63 (73) 100 05/19/20 11:00 93/63 05/19/20 10:45 102 15 90/56 (67) 100 05/19/20 10:30 103 16 96/60 (72) 100 05/19/20 10:15 107 15 87/61 (70) 100 05/19/20 10:00 92 14 87/53 (64) 100 05/19/20 10:00 87/53 05/19/20 09:45 96 15 89/55 (66) 100 05/19/20 09:30 99 17 91/57 (68) 100 05/19/20 09:15 93 17 97/61 (73) 100 05/19/20 09:00 88 14 117/70 (86) 100 05/19/20 09:00 117/70 05/19/20 08:30 89 14 111/65 (80) 100 05/19/20 08:00 Mechanical Ventilator 05/19/20 08:00 106/65 05/19/20 08:00 40 05/19/20 08:00 99.2 87 16 106/65 (79) 100 05/19/20 08:00 87 05/19/20 07:30 82 18 105/62 (76) 99 05/19/20 07:00 81 21 106/61 (76) 100 05/19/20 07:00 106/61 05/19/20 06:50 82 14 40 05/19/20 06:30 85 25 05/19/20 06:00 105/67 05/19/20 06:00 90 19 105/67 (80) 98 05/19/20 05:00 82 16 100/66 (77) 99 05/19/20 05:00 100/66 05/19/20 04:00 85 05/19/20 04:00 103/64 05/19/20 04:00 40 05/19/20 04:00 Mechanical Ventilator 05/19/20 04:00 98.2 83 17 103/64 (77) 99 05/19/20 03:33 87 17 40 05/19/20 03:00 84 18 84/49 (61) 99 05/19/20 03:00 84/49 05/19/20 02:00 98/61 05/19/20 02:00 81 18 98/61 (73) 98 05/19/20 01:00 89/60 05/19/20 01:00 83 18 89/60 (70) 98 05/19/20 00:00 88 05/19/20 00:00 93/63 05/19/20 00:00 98.7 86 19 96/63 (74) 99 05/19/20 00:00 40 05/19/20 00:00 Mechanical Ventilator 05/18/20 23:52 88 100/61 05/18/20 23:10 87 16 40 05/18/20 23:00 100/61 05/18/20 23:00 86 18 100/61 (74) 98 05/18/20 22:00 87 17 107/67 (80) 99 05/18/20 22:00 107/67 05/18/20 21:30 90 17 101/65 (77) 97 05/18/20 21:00 104/67 05/18/20 21:00 92 17 104/67 (79) 99 05/18/20 20:30 94 17 106/68 (81) 98 05/18/20 20:00 96 05/18/20 20:00 40 05/18/20 20:00 100/65 05/18/20 20:00 98.2 96 17 100/65 (77) 97 05/18/20 20:00 Mechanical Ventilator 05/18/20 19:36 96 14 40 05/18/20 19:30 97 16 98/64 (75) 98 05/18/20 19:00 104/62 05/18/20 19:00 96 16 104/62 (76) 98 05/18/20 18:30 95 17 101/61 (74) 98 05/18/20 18:00 111/66 05/18/20 18:00 90 16 111/66 (81) 98 05/18/20 17:44 122/70 05/18/20 17:30 89 17 116/67 (83) 100 05/18/20 17:05 99.0 83 15 122/70 (87) 100 Intake and Output 05/18/20 05/19/20 19:00 07:00 Intake Total 1227.83 ml 1580.95 ml Output Total 445 ml 480 ml Balance 782.83 ml 1100.95 ml Free Water 310 ml IV Total 1227.83 ml 1080.95 ml Tube Feeding 190 ml Output Urine Total 445 ml 480 ml # Bowel Movements 3 Laboratory Tests Test 05/18/20 20:25 05/19/20 00:07 05/19/20 03:55 05/19/20 07:32 POC Whole Blood Glucose Pending 131 MG/DL (74-106) H White Blood Count 17.3 K/UL (4.8-10.8) H Red Blood Count 3.43 M/UL (4.20-5.40) L Hemoglobin 10.5 G/DL (12.0-16.0) L Hematocrit 31.0 % (37.0-47.0) L Mean Corpuscular Volume 91 FL (80-99) Mean Corpuscular Hemoglobin 30.7 PG (27.0-31.0) Mean Corpuscular Hemoglobin Concent 33.9 G/DL (32.0-36.0) Red Cell Distribution Width 12.8 % (11.6-14.8) Platelet Count 84 K/UL (150-450) L Mean Platelet Volume 13.8 FL (6.5-10.1) H Neutrophils (%) (Auto) % (45.0-75.0) Lymphocytes (%) (Auto) % (20.0-45.0) Monocytes (%) (Auto) % (1.0-10.0) Eosinophils (%) (Auto) % (0.0-3.0) Basophils (%) (Auto) % (0.0-2.0) Differential Total Cells Counted 100 Neutrophils % (Manual) 94 % (45-75) H Lymphocytes % (Manual) 5 % (20-45) L Monocytes % (Manual) 1 % (1-10) Eosinophils % (Manual) 0 % (0-3) Basophils % (Manual) 0 % (0-2) Band Neutrophils 0 % (0-8) Platelet Estimate Decreased L Platelet Morphology Normal Red Blood Cell Morphology Normal Sodium Level 146 MMOL/L (136-145) H Potassium Level 3.4 MMOL/L (3.5-5.1) L Chloride Level 113 MMOL/L (98-107) H Carbon Dioxide Level 20 MMOL/L (21-32) L Anion Gap 13 mmol/L (5-15) Blood Urea Nitrogen 53 mg/dL (7-18) H Creatinine 1.2 MG/DL (0.55-1.30) Estimat Glomerular Filtration Rate 44.3 mL/min (>60) Glucose Level 172 MG/DL (74-106) H Calcium Level 8.8 MG/DL (8.5-10.1) Magnesium Level 2.1 MG/DL (1.8-2.4) Pro-B-Type Natriuretic Peptide 10935 pg/mL (0-125) H Random Vancomycin Level 23.1 ug/mL Arterial Blood pH 7.466 (7.350-7.450) Arterial Blood Partial Pressure CO2 23.0 mmHg (35.0-45.0) *L Arterial Blood Partial Pressure O2 101.3 mmHg (75.0-100.0) H Arterial Blood HCO3 16.2 mmol/L (22.0-26.0) *L Arterial Blood Oxygen Saturation 97.3 % (95-100) Arterial Blood Base Excess -6.0 (-2-2) L Anthony Test Positive Microbiology Date/Time Source Procedure Growth Status 05/17/20 16:00 Blood Blood Culture - Preliminary NO GROWTH AFTER 24 HOURS Resulted Objective HEAD AND NECK: Show no JVD. She is orally intubated. LUNGS: Coarse rhonchi. CARDIOVASCULAR: Shows regular S1 and S2 with no gallop. ABDOMEN: Soft. Status post G-tube. EXTREMITIES: Show no pitting edema. Norman Morillo MD May 19, 2020 17:05
--- NOTE | 2020-05-19 18:00 | NUR ---
NURSE NOTES: Pt repositioned, remains afebrile without distress. Levo remains at 12 mcg/min. Will continue to monitor.
--- NOTE | 2020-05-19 19:17 | NUR ---
NURSE HAND-OFF REPORT: Latest Vital Signs: Temperature 98.7 , Pulse 95 , B/P 99 /60 , Respiratory Rate 20 , O2 SAT 100 , Mechanical Ventilator, O2 Flow Rate 15.0 . EKG Rhythm: Sinus Rhythm Rhythm change?: N Notified?: N Response: n/a Latest Garza Fall Score: 50 Fall Risk: High Risk Safety Measures: Call light Within Reach, Bed Alarm Zone 1, Side Rails Side Rails x2, Bed position Low and Locked. Fall Precautions: Yellow Gown Report given to SARA Urrutia.
--- NOTE | 2020-05-19 19:30 | NUR ---
NURSE NOTES: SBAR received from Marion RUIZ. Patient is awake, non-verbal, slightly agitated and orally intubated. ETT size 7.5/23cm at lower lip. Current Ventilator setting as follows: AC12/500tv/40%fiO2 and peep of 5. HR is 98 NSR, pulses present and equal bilaterally. Lung sounds diminished with sone rhonchi sounds heard at bilateral lower lobes. Patient had previous GT that was removed by GI MD and currently covered with dressing. Patient has a right nare NGT and infusing Glucerna 1.2 at 50ml/hr. Right IJ TLC noted and receiving Levophed at 12mcg/min and 1/2NS at 75. Arauz catheter noted, hanging appropriately below bladder, light colored jasmyne color. SCD's noted, low airloss mattress noted. Safety measures are in place. Will continue to monitor.
[2020-05-19] MEDS: Dyna-Hex 2% Top Sol 2oz TOPIC SCH (19:48)
[2020-05-19] MEDS: Morphine Sulfate 4mg/ml Inj (IV USE ONLY) IVP PRN (19:49)
--- NOTE | 2020-05-19 19:50 | NUR ---
NURSE NOTES: Patient given Tylenol 650 via GT for temperature of 100.9 (axillary). Cooling bath was also given. Assessment of pain indicated patients FLACC score is at 8/10. Patient was given 4mg IVP for pain management. Will reassess interventions accordingly.
--- NOTE | 2020-05-19 20:00 | NUR ---
NURSE NOTES: Patient assessment performed; patient is warm to the touch, patients temperature a few minutes ago showed an axillary temperature of 100.9F. A cooling bath was provided using CHG soap. Patient was lavaged and suctioned. Oral care was also provided for oral hygiene. Patient patient was provided with clean linen and a dry gown. Repositioned for comfort and for integumentary precautions. Levophed is slowly being titrated down accordingly. Minimal g-tube feeds, flushed 60ml of water. Fall, aspiration and skin precautions observed. Passive range of motioned performed per patients tolerance. Bed in lowest position, call light within reach, bed locked and alarm engaged. Safety measures remain in place. Will continue to monitor.
--- NOTE | 2020-05-19 20:48 | NUR ---
NURSE NOTES: Reassessment of Tylenol 650mg Via NGT. After given pyretic and provided cooling bath reassessment of temperature shows to be 100.8F (axillary). Cooling measures will continue. Reassessment of Morphine 4mg IVP. After providing Morphine, a reassessment of patients pain score using the FLACC scoring method shows a FLACC score of 0/10.
--- NOTE | 2020-05-19 22:00 | NUR ---
NURSE NOTES: Patient assessment performed; Levophed slowly being titrated down accordingly. Patient was repositioned and suctioned. Patient blood pressure stable with current drip rate. Passive range of motion performed. NAD at this time. Will continue to monitor.
[2020-05-20] VITALS (56 sets, daily range): BP systolic 90–114; BP diastolic 45–68
--- NOTE | 2020-05-20 | NUR ---
NURSE NOTES: Patient assessment performed; patient was given oral care and suctioned. Levophed slowly being titrated down accordingly. Vitals are stable, afebrile, NAD. Repositioned patient for comfort and integumentary precautions.
[2020-05-20] MEDS: Vasopressin 100 UNITS in NS 95 ML IV SCH ×2 (00:15→22:37)
[2020-05-20] MEDS: Phenylephrine 100 MG in D5W 240 ML IV SCH ×2 (00:15→22:37)
[2020-05-20] MEDS: NovoLOG Insulin Flexpen SUBQ SCH ×6 (00:21→21:27)
[2020-05-20] MEDS: Meropenem 1 GM in NS 55 ML IVPB SCH ×2 (02:39→13:11)
--- NOTE | 2020-05-20 04:00 | NUR ---
NURSE NOTES: Patient assessment performed; Bed bath given, patient had 1 BM. Blood drawn and sent to lab. patient was given oral care and suctioned. Levophed slowly being titrated down accordingly. Vitals are stable, afebrile, NAD. Repositioned patient for comfort and integumentary precautions.
[2020-05-20 05:04] LABS: HEMATOCRIT 27.9 % (37.0-47.0); HEMOGLOBIN 9.5 G/DL (12.0-16.0); MEAN CORPUSCULAR VOLUME 91 FL (80-99); PLATELET COUNT 103 K/UL (150-450); RED BLOOD COUNT 3.08 M/UL (4.20-5.40)
[2020-05-20 05:35] LABS: CALCIUM 8.7 MG/DL (8.5-10.1); POTASSIUM 3.6 MMOL/L (3.5-5.1)
--- NOTE | 2020-05-20 06:00 | NUR ---
NURSE NOTES: Patient assessment performed; Vitals remains stable with current gtt rate. Suctioned patient, NAD. Repositioned patient for comfort and integumentary precautions. All safety measures remain in place Will continue to monitor.
--- NOTE | 2020-05-20 06:32 | General Progress Note ---
Assessment/Plan Problem List: (1) COVID-19 ICD Codes: U07.1 - COVID-19 SNOMED: 593363389 (2) Elevated d-dimer ICD Codes: R79.89 - Other specified abnormal findings of blood chemistry SNOMED: 226408757 (3) Rapid atrial fibrillation ICD Codes: I48.91 - Unspecified atrial fibrillation SNOMED: 861265336 (4) Sepsis ICD Codes: A41.9 - Sepsis, unspecified organism SNOMED: 18277767 (5) Respiratory failure ICD Codes: J96.90 - Respiratory failure, unspecified, unspecified whether with hypoxia or hypercapnia SNOMED: 092696718 (6) Renal failure ICD Codes: N19 - Unspecified kidney failure SNOMED: 90782382 (7) Hypernatremia ICD Codes: E87.0 - Hyperosmolality and hypernatremia SNOMED: 503377719 (8) T2DM (type 2 diabetes mellitus) ICD Codes: E11.9 - Type 2 diabetes mellitus without complications SNOMED: 62508869 Status: unchanged Assessment/Plan: no need for basal insulin continue Novolog sliding scale every 4 hours hypoglycemia protocol in order Subjective ROS Limited/Unobtainable: Yes Allergies: Coded Allergies: DIVALPROEX SODIUM (Verified Allergy, Unknown, 05/14/20) PENICILLINS (Verified Allergy, Unknown, 05/14/20) Subjective events noted and interval notes reviewed remained intubated in ICU on pressors glucose values are stable Item Value Date Time Bedside Blood Glucose 103 mg/dl 05/20/20 0500 Bedside Blood Glucose 150 mg/dl H 05/20/20 0021 Bedside Blood Glucose 165 mg/dl H 05/19/20 2027 Bedside Blood Glucose 178 mg/dl H 05/19/20 1743 Bedside Blood Glucose 149 mg/dl H 05/19/20 1313 Bedside Blood Glucose 159 mg/dl H 05/19/20 0903 Bedside Blood Glucose 156 mg/dl H 05/19/20 0506 Bedside Blood Glucose 131 mg/dl H 05/19/20 0012 Objective Last 24 Hour Vital Signs Date Time Temp Pulse Resp B/P (MAP) Pulse Ox O2 Delivery O2 Flow Rate FiO2 05/20/20 06:00 88/51 05/20/20 06:00 69 13 91/50 (64) 100 05/20/20 05:30 67 13 93/52 (66) 100 05/20/20 05:00 99/56 05/20/20 05:00 65 14 99/56 (70) 100 05/20/20 04:30 68 13 96/47 (63) 100 05/20/20 04:00 98.9 68 14 95/50 (65) 100 05/20/20 04:00 Mechanical Ventilator 05/20/20 04:00 95/50 05/20/20 04:00 40 05/20/20 04:00 65 05/20/20 03:30 69 15 98/50 (66) 96 05/20/20 03:23 81 20 40 05/20/20 03:00 99/50 05/20/20 03:00 75 20 99/50 (66) 100 05/20/20 02:30 72 14 90/45 (60) 100 05/20/20 02:00 70 14 99/55 (70) 100 05/20/20 02:00 99/55 05/20/20 01:15 70 15 94/51 (65) 100 05/20/20 01:00 69 16 96/52 (67) 100 05/20/20 01:00 94/51 05/20/20 00:30 69 16 107/52 (70) 100 05/20/20 00:15 73 16 107/62 (77) 100 05/20/20 00:14 74 17 104/60 (75) 100 05/20/20 00:00 Mechanical Ventilator 05/20/20 00:00 104/60 05/20/20 00:00 99.2 75 17 98/57 (71) 98 05/20/20 00:00 75 05/19/20 23:45 77 18 108/64 (79) 99 05/19/20 23:30 74 19 108/57 (74) 99 05/19/20 23:15 71 13 114/61 (78) 100 05/19/20 23:01 77 20 40 05/19/20 23:00 76 16 105/57 (73) 100 05/19/20 23:00 114/61 05/19/20 22:45 81 17 98/58 (71) 100 05/19/20 22:30 77 17 104/56 (72) 73 05/19/20 22:15 78 16 85/52 (63) 100 05/19/20 22:00 85/52 05/19/20 22:00 80 16 99/46 (63) 100 05/19/20 21:45 77 19 97/56 (70) 100 05/19/20 21:30 78 17 86/50 (62) 100 05/19/20 21:15 81 18 97/50 (66) 100 05/19/20 21:07 81 18 95/54 (68) 100 05/19/20 21:00 83 17 88/56 (67) 100 05/19/20 21:00 95/54 05/19/20 20:45 84 18 99/55 (70) 100 05/19/20 20:30 90 18 112/60 (77) 100 05/19/20 20:22 92 20 126/70 (88) 99 05/19/20 20:19 100.8 05/19/20 20:15 69 20 105/64 (78) 100 05/19/20 20:15 126/70 05/19/20 20:00 Mechanical Ventilator 05/19/20 20:00 100.9 96 23 107/74 (85) 99 05/19/20 20:00 105/64 05/19/20 20:00 40 05/19/20 19:45 97 22 107/67 (80) 100 05/19/20 19:36 96 05/19/20 19:35 96 20 40 05/19/20 19:30 96 22 99/67 (78) 100 05/19/20 19:00 99/60 05/19/20 19:00 95 20 99/60 (73) 100 05/19/20 18:30 95 21 102/58 (73) 100 05/19/20 18:00 101/64 05/19/20 18:00 95 21 101/64 (76) 100 05/19/20 17:37 107/63 05/19/20 17:30 93 20 107/63 (78) 100 05/19/20 17:00 104/67 05/19/20 17:00 92 20 104/67 (79) 100 05/19/20 16:30 93 20 108/64 (79) 100 05/19/20 16:00 Mechanical Ventilator 05/19/20 16:00 95 05/19/20 16:00 98.7 94 17 92/62 (72) 100 05/19/20 16:00 40 05/19/20 16:00 92/62 05/19/20 15:30 95 22 103/64 (77) 99 05/19/20 15:16 94 18 40 05/19/20 15:00 95 18 100/66 (77) 100 05/19/20 15:00 100/66 05/19/20 14:30 98 20 95/59 (71) 100 05/19/20 14:00 99 20 95/62 (73) 100 05/19/20 14:00 95/62 05/19/20 13:30 95 17 102/65 (77) 100 05/19/20 13:00 99.5 96 17 99/61 (74) 95 05/19/20 13:00 99/61 05/19/20 12:30 96 17 99/61 (74) 99 05/19/20 12:00 100/62 05/19/20 12:00 100.5 95 18 100/62 (75) 100 05/19/20 12:00 96 05/19/20 12:00 Mechanical Ventilator 05/19/20 12:00 40 05/19/20 11:40 96 19 40 05/19/20 11:30 94 20 96/61 (73) 100 05/19/20 11:15 96 22 104/61 (75) 100 05/19/20 11:11 100 05/19/20 11:11 95 24 40 40 05/19/20 11:00 97 19 93/63 (73) 100 05/19/20 11:00 93/63 05/19/20 10:45 102 15 90/56 (67) 100 05/19/20 10:30 103 16 96/60 (72) 100 05/19/20 10:15 107 15 87/61 (70) 100 05/19/20 10:00 92 14 87/53 (64) 100 05/19/20 10:00 87/53 05/19/20 09:45 96 15 89/55 (66) 100 05/19/20 09:30 99 17 91/57 (68) 100 05/19/20 09:15 93 17 97/61 (73) 100 05/19/20 09:00 88 14 117/70 (86) 100 05/19/20 09:00 117/70 05/19/20 08:30 89 14 111/65 (80) 100 05/19/20 08:00 Mechanical Ventilator 05/19/20 08:00 106/65 05/19/20 08:00 40 05/19/20 08:00 99.2 87 16 106/65 (79) 100 05/19/20 08:00 87 05/19/20 07:30 82 18 105/62 (76) 99 05/19/20 07:00 81 21 106/61 (76) 100 05/19/20 07:00 106/61 05/19/20 06:50 82 14 40 Intake and Output 05/19/20 05/20/20 19:00 07:00 Intake Total 2091.163 ml 1940.965 ml Output Total 815 ml 465 ml Balance 1276.163 ml 1475.965 ml Free Water 290 ml 180 ml IV Total 1306.163 ml 1100.965 ml Tube Feeding 495 ml 660 ml Output Urine Total 815 ml 465 ml # Bowel Movements 1 Laboratory Tests 05/19/20 07:32: Arterial Blood pH 7.466H, Arterial Blood Partial Pressure CO2 23.0*L, Arterial Blood Partial Pressure O2 101.3H, Arterial Blood HCO3 16.2*L, Arterial Blood Oxygen Saturation 97.3, Arterial Blood Base Excess -6.0L, Anthony Test Positive 05/19/20 20:02: POC Whole Blood Glucose [Pending] 05/20/20 00:18: POC Whole Blood Glucose [Pending] 05/20/20 04:00: White Blood Count 13.0H, Red Blood Count 3.08L, Hemoglobin 9.5L, Hematocrit 27.9L, Mean Corpuscular Volume 91, Mean Corpuscular Hemoglobin 30.8, Mean Corpuscular Hemoglobin Concent 33.9, Red Cell Distribution Width 13.0, Platelet Count 103L, Mean Platelet Volume 12.1H, Neutrophils (%) (Auto) , Lymphocytes (% ) (Auto) , Monocytes (%) (Auto) , Eosinophils (%) (Auto) , Basophils (%) (Auto) , Neutrophils % (Manual) [Pending], Lymphocytes % (Manual) [Pending], Platelet Estimate [Pending], Platelet Morphology [Pending], Sodium Level 147H, Potassium Level 3.6, Chloride Level 114H, Carbon Dioxide Level 23, Anion Gap 10, Blood Urea Nitrogen 47H, Creatinine 1.0, Estimat Glomerular Filtration Rate 54.7, Glucose Level 103, Calcium Level 8.7 Height (Feet): 5 Height (Inches): 4.00 Weight (Pounds): 149 Objective Current Medications Medications (Trade) Dose Ordered Sig/Morgan Route PRN Reason Start Time Stop Time Status Last Admin Dose Admin Acetaminophen (Tylenol) 650 mg Q4H PRN GT Temp >100.5 05/16/20 06:15 06/15/20 06:14 05/19/20 19:49 Acetaminophen (Tylenol) 650 mg Q4H PRN RECTAL Temp >100.5 05/16/20 19:45 06/15/20 19:44 05/17/20 18:30 Chlorhexidine Gluconate (Lilliam-Hex 2%) 1 applic DAILY@2000 TOPIC 05/15/20 20:00 08/13/20 19:59 05/19/20 19:48 Dexamethasone Sodium Phosphate (Decadron 10mg/ ml Inj) 6 mg DAILY IV 05/16/20 09:00 05/24/20 08:59 05/19/20 08:44 Dextrose (Dextrose 50%) 25 ml Q30M PRN IV Hypoglycemia 05/15/20 18:00 08/13/20 17:59 Dextrose (Dextrose 50%) 50 ml Q30M PRN IV Hypoglycemia 05/15/20 18:00 08/13/20 17:59 Insulin Aspart (NovoLOG) Q4HR SUBQ 05/15/20 21:00 08/13/20 20:59 05/20/20 00:21 Meropenem 1 gm/ Sodium Chloride 55 ml @ 110 mls/hr Q12HR@0200,1400 IVPB 05/17/20 14:00 05/22/20 13:59 05/20/20 02:39 Morphine Sulfate (Morphine Sulfate) 2 mg EVERY 3 HOURS PRN IVP Moderate Pain (Pain Scale 4-6) 05/14/20 20:15 05/21/20 20:14 05/20/20 02:39 Morphine Sulfate (Morphine Sulfate) 4 mg EVERY 3 HOURS PRN IVP Severe Pain (Pain Scale 7-10) 05/14/20 20:15 05/21/20 20:14 05/19/20 19:49 Norepinephrine Bitartrate 16 mg/ Dextrose 516 ml @ 0 mls/hr Q24H IV 05/14/20 23:30 06/13/20 23:29 05/19/20 17:37 Pantoprazole (Protonix) 40 mg DAILY IV 05/15/20 09:00 06/14/20 08:59 05/19/20 08:44 Phenylephrine HCl 100 mg/Dextrose 250 ml @ 0 mls/hr Q24H IV 05/15/20 00:15 06/14/20 00:14 05/15/20 13:28 Sodium Chloride 1,000 ml @ 75 mls/hr [id number] IV 05/15/20 06:45 06/14/20 06:44 05/20/20 05:13 Vasopressin 100 units/Sodium Chloride 100 ml @ 0 mls/hr Q24H IV 05/15/20 00:15 06/14/20 00:14 Chau Shelley MD May 20, 2020 06:32
--- NOTE | 2020-05-20 07:00 | NUR ---
NURSE NOTES: Pt received from SARA Urrutia. Pt is asleep, opens eyes to shaking but not to auditory stimuli, gag reflex is hypoactive, pt does not follow commands, pupils are equal and round 3 mm bilaterally with sluggish rxn to light. Pt noted in SR to monitoring engineer. radial and dorsalis pedis pulses 1+. non-pitting edema noted to both hands. Pt is mechanically ventilated with a 7.5 ETT noted 23 cm at the lip line with following settings: AC 16 TV 500 FiO2 40% Peep 5. All lung lobes sound diminished upon auscultation. Abd is flat, soft, and non-tender, with active bowel sounds to all quadrants. Pt has an right nares NGT running Glucerna 1.2 at 60 cc/hr. F/C noted draining yellow, clear urine. Skin alterations noted. Pt on DARIN mattress. Pt has a RIJ TLC running levophed at 4 mcg/min and 1/2 NS at 75 cc/hr. Pt also observed with left soft wrist restraint. Skin to left wrist is intact without redness. left radial pulse is palpable. Bed in lowest position, alarm on, side rails up x 2. Call light within reach. Will continue to monitor pt.
--- NOTE | 2020-05-20 08:00 | NUR ---
NURSE NOTES: Oral care provided, pt repositioned.
--- NOTE | 2020-05-20 09:00 | NUR ---
NURSE NOTES: US tech performing renal US at bedside.
[2020-05-20] MEDS: Pantoprazole Inj IV SCH (09:06)
[2020-05-20] MEDS: dexAMETHasone 10mg/ml Inj IV SCH (09:06)
--- NOTE | 2020-05-20 09:58 | General Progress Note ---
Assessment/Plan Status: unchanged Assessment/Plan: 1. History of CVA. 2. Dementia. 3. Dysphagia with G-tube. 4. Cachexia. 5. Diabetes. 6. Pressure ulcers. 7. Hypothyroidism. 8. Legal blindness. 9. Currently COVID positive. GT has trice removed still some drainage from the GT site NGTF GT replacement when more stable Subjective ROS Limited/Unobtainable: No Allergies: Coded Allergies: DIVALPROEX SODIUM (Verified Allergy, Unknown, 05/14/20) PENICILLINS (Verified Allergy, Unknown, 05/14/20) Objective Last 24 Hour Vital Signs Date Time Temp Pulse Resp B/P (MAP) Pulse Ox O2 Delivery O2 Flow Rate FiO2 05/20/20 09:30 76 15 98/56 (70) 99 05/20/20 09:00 76 14 94/53 (67) 100 05/20/20 08:30 76 14 98/60 (73) 100 05/20/20 08:00 98.2 72 13 100/55 (70) 100 05/20/20 08:00 40 05/20/20 08:00 Mechanical Ventilator 05/20/20 07:30 73 13 114/55 (74) 100 05/20/20 07:15 73 14 40 05/20/20 07:00 74 13 94/61 (72) 100 05/20/20 06:31 73 18 05/20/20 06:30 72 15 102/59 (73) 100 05/20/20 06:00 88/51 05/20/20 06:00 69 13 91/50 (64) 100 05/20/20 05:30 67 13 93/52 (66) 100 05/20/20 05:00 99/56 05/20/20 05:00 65 14 99/56 (70) 100 05/20/20 04:30 68 13 96/47 (63) 100 05/20/20 04:00 98.9 68 14 95/50 (65) 100 05/20/20 04:00 Mechanical Ventilator 05/20/20 04:00 95/50 05/20/20 04:00 40 05/20/20 04:00 65 05/20/20 03:30 69 15 98/50 (66) 96 05/20/20 03:23 81 20 40 05/20/20 03:00 99/50 05/20/20 03:00 75 20 99/50 (66) 100 05/20/20 02:30 72 14 90/45 (60) 100 05/20/20 02:00 70 14 99/55 (70) 100 05/20/20 02:00 99/55 05/20/20 01:15 70 15 94/51 (65) 100 05/20/20 01:00 69 16 96/52 (67) 100 05/20/20 01:00 94/51 05/20/20 00:30 69 16 107/52 (70) 100 05/20/20 00:15 73 16 107/62 (77) 100 05/20/20 00:14 74 17 104/60 (75) 100 05/20/20 00:00 Mechanical Ventilator 05/20/20 00:00 104/60 05/20/20 00:00 99.2 75 17 98/57 (71) 98 05/20/20 00:00 75 05/19/20 23:45 77 18 108/64 (79) 99 05/19/20 23:30 74 19 108/57 (74) 99 05/19/20 23:15 71 13 114/61 (78) 100 05/19/20 23:01 77 20 40 05/19/20 23:00 76 16 105/57 (73) 100 05/19/20 23:00 114/61 05/19/20 22:45 81 17 98/58 (71) 100 05/19/20 22:30 77 17 104/56 (72) 73 05/19/20 22:15 78 16 85/52 (63) 100 05/19/20 22:00 85/52 05/19/20 22:00 80 16 99/46 (63) 100 05/19/20 21:45 77 19 97/56 (70) 100 05/19/20 21:30 78 17 86/50 (62) 100 05/19/20 21:15 81 18 97/50 (66) 100 05/19/20 21:07 81 18 95/54 (68) 100 05/19/20 21:00 83 17 88/56 (67) 100 05/19/20 21:00 95/54 05/19/20 20:45 84 18 99/55 (70) 100 05/19/20 20:30 90 18 112/60 (77) 100 05/19/20 20:22 92 20 126/70 (88) 99 05/19/20 20:19 100.8 05/19/20 20:15 69 20 105/64 (78) 100 05/19/20 20:15 126/70 05/19/20 20:00 Mechanical Ventilator 05/19/20 20:00 100.9 96 23 107/74 (85) 99 05/19/20 20:00 105/64 05/19/20 20:00 40 05/19/20 19:45 97 22 107/67 (80) 100 05/19/20 19:36 96 05/19/20 19:35 96 20 40 05/19/20 19:30 96 22 99/67 (78) 100 05/19/20 19:00 99/60 05/19/20 19:00 95 20 99/60 (73) 100 05/19/20 18:30 95 21 102/58 (73) 100 05/19/20 18:00 101/64 05/19/20 18:00 95 21 101/64 (76) 100 05/19/20 17:37 107/63 05/19/20 17:30 93 20 107/63 (78) 100 05/19/20 17:00 104/67 05/19/20 17:00 92 20 104/67 (79) 100 05/19/20 16:30 93 20 108/64 (79) 100 05/19/20 16:00 Mechanical Ventilator 05/19/20 16:00 95 05/19/20 16:00 98.7 94 17 92/62 (72) 100 05/19/20 16:00 40 05/19/20 16:00 92/62 05/19/20 15:30 95 22 103/64 (77) 99 05/19/20 15:16 94 18 40 05/19/20 15:00 95 18 100/66 (77) 100 05/19/20 15:00 100/66 05/19/20 14:30 98 20 95/59 (71) 100 05/19/20 14:00 99 20 95/62 (73) 100 05/19/20 14:00 95/62 05/19/20 13:30 95 17 102/65 (77) 100 05/19/20 13:00 99.5 96 17 99/61 (74) 95 9/10/20 13:00 99/61 05/19/20 12:30 96 17 99/61 (74) 99 05/19/20 12:00 100/62 05/19/20 12:00 100.5 95 18 100/62 (75) 100 05/19/20 12:00 96 05/19/20 12:00 Mechanical Ventilator 05/19/20 12:00 40 05/19/20 11:40 96 19 40 05/19/20 11:30 94 20 96/61 (73) 100 05/19/20 11:15 96 22 104/61 (75) 100 05/19/20 11:11 100 05/19/20 11:11 95 24 40 40 05/19/20 11:00 97 19 93/63 (73) 100 05/19/20 11:00 93/63 05/19/20 10:45 102 15 90/56 (67) 100 05/19/20 10:30 103 16 96/60 (72) 100 05/19/20 10:15 107 15 87/61 (70) 100 05/19/20 10:00 92 14 87/53 (64) 100 05/19/20 10:00 87/53 Intake and Output 05/19/20 05/20/20 19:00 07:00 Intake Total 2091.163 ml 2005.965 ml Output Total 815 ml 615 ml Balance 1276.163 ml 1390.965 ml Free Water 290 ml 185 ml IV Total 1306.163 ml 1100.965 ml Tube Feeding 495 ml 720 ml Output Urine Total 815 ml 615 ml # Bowel Movements 1 Laboratory Tests 05/19/20 20:02: POC Whole Blood Glucose [Pending] 05/20/20 00:18: POC Whole Blood Glucose [Pending] 05/20/20 04:00: White Blood Count 13.0H, Red Blood Count 3.08L, Hemoglobin 9.5L, Hematocrit 27.9L, Mean Corpuscular Volume 91, Mean Corpuscular Hemoglobin 30.8, Mean Corpuscular Hemoglobin Concent 33.9, Red Cell Distribution Width 13.0, Platelet Count 103L, Mean Platelet Volume 12.1H, Neutrophils (%) (Auto) , Lymphocytes (% ) (Auto) , Monocytes (%) (Auto) , Eosinophils (%) (Auto) , Basophils (%) (Auto) , Differential Total Cells Counted 100, Neutrophils % (Manual) 94H, Lymphocytes % (Manual) 2L, Monocytes % (Manual) 4, Eosinophils % (Manual) 0, Basophils % ( Manual) 0, Band Neutrophils 0, Platelet Estimate DecreasedL, Platelet Morphology Normal, Hypochromasia 2+, Anisocytosis 1+, Spherocytes 1+, Sodium Level 147H, Potassium Level 3.6, Chloride Level 114H, Carbon Dioxide Level 23, Anion Gap 10, Blood Urea Nitrogen 47H, Creatinine 1.0, Estimat Glomerular Filtration Rate 54.7, Glucose Level 103, Calcium Level 8.7 Height (Feet): 5 Height (Inches): 4.00 Weight (Pounds): 149 General Appearance: no apparent distress EENT: normal ENT inspection Neck: supple Cardiovascular: normal rate Respiratory/Chest: decreased breath sounds Abdomen: hypoactive bowel sounds Extremities: non-tender Jhon Matos MD May 20, 2020 09:58
--- NOTE | 2020-05-20 10:00 | NUR ---
NURSE NOTES: Pt repositioned, no distress noted. Dr Enriquez at bedside assessing pt - OK with him to wean pt despite low NIF and to obtain ABGs 1 hr after. Anna RT notified.
--- NOTE | 2020-05-20 10:35 | Cardiology Report ---
APPROVED REPORT EXAM: Two-dimensional and M-mode echocardiogram with Doppler and color Doppler. INDICATION Atrial Fibrillation Other Information Quality : Limited <Conclusion> Technically difficult and limited study due to poor acoustical windows. M-mode measurements of left ventricle not obtainable due to cardiac position (angle) Study quality precludes accurate assessment of regional wall motion to extent visualized. Left ventricular ejection fraction not diagnostic.
--- NOTE | 2020-05-20 10:38 | Cardiology Report ---
APPROVED REPORT EKG Measurement Heart [id number] <Conclusion> Atrial tachycardia Low voltage QRS Nonspecific T wave abnormality Abnormal ECG
--- NOTE | 2020-05-20 10:50 | Pulmonology Progress Note ---
Subjective ROS Limited/Unobtainable: No Interval Events: Remains intubated; on levophed Constitutional: Reports: no symptoms HEENT: Repors: no symptoms Respiratory: Reports: no symptoms Cardiovascular: Reports: no symptoms Gastrointestinal/Abdominal: Reports: no symptoms Genitourinary: Reports: no symptoms Allergies: Coded Allergies: DIVALPROEX SODIUM (Verified Allergy, Unknown, 05/14/20) PENICILLINS (Verified Allergy, Unknown, 05/14/20) All Systems: reviewed and negative except above Objective Last 24 Hour Vital Signs Date Time Temp Pulse Resp B/P (MAP) Pulse Ox O2 Delivery O2 Flow Rate FiO2 05/20/20 10:00 97/58 05/20/20 10:00 79 14 97/58 (71) 99 05/20/20 09:30 76 15 98/56 (70) 99 05/20/20 09:00 94/53 05/20/20 09:00 76 14 94/53 (67) 100 05/20/20 08:30 76 14 98/60 (73) 100 05/20/20 08:00 73 05/20/20 08:00 100/55 05/20/20 08:00 98.2 72 13 100/55 (70) 100 05/20/20 08:00 40 05/20/20 08:00 Mechanical Ventilator 05/20/20 07:30 73 13 114/55 (74) 100 05/20/20 07:15 73 14 40 05/20/20 07:00 94/61 05/20/20 07:00 74 13 94/61 (72) 100 05/20/20 06:31 73 18 05/20/20 06:30 72 15 102/59 (73) 100 05/20/20 06:00 88/51 05/20/20 06:00 69 13 91/50 (64) 100 05/20/20 05:30 67 13 93/52 (66) 100 05/20/20 05:00 99/56 05/20/20 05:00 65 14 99/56 (70) 100 05/20/20 04:30 68 13 96/47 (63) 100 05/20/20 04:00 98.9 68 14 95/50 (65) 100 05/20/20 04:00 Mechanical Ventilator 05/20/20 04:00 95/50 05/20/20 04:00 40 05/20/20 04:00 65 05/20/20 03:30 69 15 98/50 (66) 96 05/20/20 03:23 81 20 40 05/20/20 03:00 99/50 05/20/20 03:00 75 20 99/50 (66) 100 05/20/20 02:30 72 14 90/45 (60) 100 05/20/20 02:00 70 14 99/55 (70) 100 05/20/20 02:00 99/55 05/20/20 01:15 70 15 94/51 (65) 100 05/20/20 01:00 69 16 96/52 (67) 100 05/20/20 01:00 94/51 05/20/20 00:30 69 16 107/52 (70) 100 05/20/20 00:15 73 16 107/62 (77) 100 05/20/20 00:14 74 17 104/60 (75) 100 05/20/20 00:00 Mechanical Ventilator 05/20/20 00:00 104/60 05/20/20 00:00 99.2 75 17 98/57 (71) 98 05/20/20 00:00 75 05/19/20 23:45 77 18 108/64 (79) 99 05/19/20 23:30 74 19 108/57 (74) 99 05/19/20 23:15 71 13 114/61 (78) 100 05/19/20 23:01 77 20 40 05/19/20 23:00 76 16 105/57 (73) 100 05/19/20 23:00 114/61 05/19/20 22:45 81 17 98/58 (71) 100 05/19/20 22:30 77 17 104/56 (72) 73 05/19/20 22:15 78 16 85/52 (63) 100 05/19/20 22:00 85/52 05/19/20 22:00 80 16 99/46 (63) 100 05/19/20 21:45 77 19 97/56 (70) 100 05/19/20 21:30 78 17 86/50 (62) 100 05/19/20 21:15 81 18 97/50 (66) 100 05/19/20 21:07 81 18 95/54 (68) 100 05/19/20 21:00 83 17 88/56 (67) 100 05/19/20 21:00 95/54 05/19/20 20:45 84 18 99/55 (70) 100 05/19/20 20:30 90 18 112/60 (77) 100 05/19/20 20:22 92 20 126/70 (88) 99 05/19/20 20:19 100.8 05/19/20 20:15 69 20 105/64 (78) 100 05/19/20 20:15 126/70 05/19/20 20:00 Mechanical Ventilator 05/19/20 20:00 100.9 96 23 107/74 (85) 99 05/19/20 20:00 105/64 05/19/20 20:00 40 05/19/20 19:45 97 22 107/67 (80) 100 05/19/20 19:36 96 05/19/20 19:35 96 20 40 05/19/20 19:30 96 22 99/67 (78) 100 05/19/20 19:00 99/60 05/19/20 19:00 95 20 99/60 (73) 100 05/19/20 18:30 95 21 102/58 (73) 100 05/19/20 18:00 101/64 05/19/20 18:00 95 21 101/64 (76) 100 05/19/20 17:37 107/63 05/19/20 17:30 93 20 107/63 (78) 100 05/19/20 17:00 104/67 05/19/20 17:00 92 20 104/67 (79) 100 05/19/20 16:30 93 20 108/64 (79) 100 05/19/20 16:00 Mechanical Ventilator 05/19/20 16:00 95 05/19/20 16:00 98.7 94 17 92/62 (72) 100 05/19/20 16:00 40 05/19/20 16:00 92/62 05/19/20 15:30 95 22 103/64 (77) 99 05/19/20 15:16 94 18 40 05/19/20 15:00 95 18 100/66 (77) 100 05/19/20 15:00 100/66 05/19/20 14:30 98 20 95/59 (71) 100 05/19/20 14:00 99 20 95/62 (73) 100 05/19/20 14:00 95/62 05/19/20 13:30 95 17 102/65 (77) 100 05/19/20 13:00 99.5 96 17 99/61 (74) 95 05/19/20 13:00 99/61 05/19/20 12:30 96 17 99/61 (74) 99 05/19/20 12:00 100/62 05/19/20 12:00 100.5 95 18 100/62 (75) 100 05/19/20 12:00 96 05/19/20 12:00 Mechanical Ventilator 05/19/20 12:00 40 05/19/20 11:40 96 19 40 05/19/20 11:30 94 20 96/61 (73) 100 05/19/20 11:15 96 22 104/61 (75) 100 05/19/20 11:11 100 05/19/20 11:11 95 24 40 40 05/19/20 11:00 97 19 93/63 (73) 100 05/19/20 11:00 93/63 Intake and Output 05/19/20 05/20/20 19:00 07:00 Intake Total 2091.163 ml 2088.705 ml Output Total 815 ml 615 ml Balance 1276.163 ml 1473.705 ml Free Water 290 ml 185 ml IV Total 1306.163 ml 1183.705 ml Tube Feeding 495 ml 720 ml Output Urine Total 815 ml 615 ml # Bowel Movements 1 General Appearance: no acute distress HEENT: normocephalic Respiratory: chest wall non-tender, lungs clear Cardiovascular: normal peripheral pulses, normal rate Abdomen: normal bowel sounds Microbiology Date/Time Source Procedure Growth Status 05/17/20 16:00 Blood Blood Culture - Preliminary NO GROWTH AFTER 48 HOURS Resulted 05/20/20 04:00 Rectum Received Laboratory Tests 05/19/20 20:02: POC Whole Blood Glucose [Pending] 05/20/20 00:18: POC Whole Blood Glucose [Pending] 05/20/20 04:00: White Blood Count 13.0H, Red Blood Count 3.08L, Hemoglobin 9.5L, Hematocrit 27.9L, Mean Corpuscular Volume 91, Mean Corpuscular Hemoglobin 30.8, Mean Corpuscular Hemoglobin Concent 33.9, Red Cell Distribution Width 13.0, Platelet Count 103L, Mean Platelet Volume 12.1H, Neutrophils (%) (Auto) , Lymphocytes (% ) (Auto) , Monocytes (%) (Auto) , Eosinophils (%) (Auto) , Basophils (%) (Auto) , Differential Total Cells Counted 100, Neutrophils % (Manual) 94H, Lymphocytes % (Manual) 2L, Monocytes % (Manual) 4, Eosinophils % (Manual) 0, Basophils % ( Manual) 0, Band Neutrophils 0, Platelet Estimate DecreasedL, Platelet Morphology Normal, Hypochromasia 2+, Anisocytosis 1+, Spherocytes 1+, Sodium Level 147H, Potassium Level 3.6, Chloride Level 114H, Carbon Dioxide Level 23, Anion Gap 10, Blood Urea Nitrogen 47H, Creatinine 1.0, Estimat Glomerular Filtration Rate 54.7, Glucose Level 103, Calcium Level 8.7 Current Medications Medications (Trade) Dose Ordered Sig/Morgan Route PRN Reason Start Time Stop Time Status Last Admin Dose Admin Acetaminophen (Tylenol) 650 mg Q4H PRN GT Temp >100.5 05/16/20 06:15 06/15/20 06:14 05/19/20 19:49 Acetaminophen (Tylenol) 650 mg Q4H PRN RECTAL Temp >100.5 05/16/20 19:45 06/15/20 19:44 05/17/20 18:30 Chlorhexidine Gluconate (Lilliam-Hex 2%) 1 applic DAILY@2000 TOPIC 05/15/20 20:00 08/13/20 19:59 05/19/20 19:48 Dexamethasone Sodium Phosphate (Decadron 10mg/ ml Inj) 6 mg DAILY IV 05/16/20 09:00 05/24/20 08:59 05/20/20 09:06 Dextrose (Dextrose 50%) 25 ml Q30M PRN IV Hypoglycemia 05/15/20 18:00 08/13/20 17:59 Dextrose (Dextrose 50%) 50 ml Q30M PRN IV Hypoglycemia 05/15/20 18:00 08/13/20 17:59 Insulin Aspart (NovoLOG) Q4HR SUBQ 05/15/20 21:00 08/13/20 20:59 05/20/20 00:21 Meropenem 1 gm/ Sodium Chloride 55 ml @ 110 mls/hr Q12HR@0200,1400 IVPB 05/17/20 14:00 05/22/20 13:59 05/20/20 02:39 Morphine Sulfate (Morphine Sulfate) 2 mg EVERY 3 HOURS PRN IVP Moderate Pain (Pain Scale 4-6) 05/14/20 20:15 05/21/20 20:14 05/20/20 02:39 Morphine Sulfate (Morphine Sulfate) 4 mg EVERY 3 HOURS PRN IVP Severe Pain (Pain Scale 7-10) 05/14/20 20:15 05/21/20 20:14 05/19/20 19:49 Norepinephrine Bitartrate 16 mg/ Dextrose 516 ml @ 0 mls/hr Q24H IV 05/14/20 23:30 06/13/20 23:29 05/19/20 17:37 Pantoprazole (Protonix) 40 mg DAILY IV 05/15/20 09:00 06/14/20 08:59 05/20/20 09:06 Phenylephrine HCl 100 mg/Dextrose 250 ml @ 0 mls/hr Q24H IV 05/15/20 00:15 06/14/20 00:14 05/15/20 13:28 Sodium Chloride 1,000 ml @ 75 mls/hr [id number] IV 05/15/20 06:45 06/14/20 06:44 05/20/20 05:13 Vasopressin 100 units/Sodium Chloride 100 ml @ 0 mls/hr Q24H IV 05/15/20 00:15 06/14/20 00:14 Assessment/Plan Assessment/Plan IMPRESSION: 1. Acute respiratory failure. 2. Diabetes mellitus with hyperglycemia. 3. Septic shock. 4. Chronic G-tube. 5. Decubitus. 6. History of CHF. DISCUSSION: The patient is critically ill. Continue insulin. IV fluids to be given with hypotonic solutions. Broad-spectrum antibiotics. Pressors. Continue AC mode till stable. On 40% FiO2 DVT and GI prophylaxis. Respiratory precautions due to COVID-[address] Wade. I will follow carefully. Decadron continuing On pressors Will attempt wean has low NIF ABG better Jaskaran Tirmizi, M.D. Tirmizi,Jaskaran Byron MD May 20, 2020 10:50
--- NOTE | 2020-05-20 11:05 | NUR ---
NURSE NOTES: weaning initiated with PS 8 FiO2 40% per RT Anna. Pt in no distress.
--- NOTE | 2020-05-20 11:54 | General Progress Note ---
Assessment/Plan Status: unchanged Assessment/Plan: 70-year-old female history of dementia, cachexia, dysphasia G-tube dependent feeding presents for evaluation of rapid heart rate and hypotension. # Septic with element of cardiogenic shock Etiology COVID 19 vs UTI vs bacteremia and NSTEMI Bcx POSITIVE WITH G+ Cocci and U cx 05/14 Proteus Mirabillis Continue Vancomycin DAY 6, Meropenem DAY 4 stopped Cefepime Dexamethasone due to hypoxia # 5 Leukocytosis today most likely due to steroids improving 13 K today # Acute respiratory failure Intubated and not ready to wean off ICU care appreciated Dr. Enriquez consulted Serial CXR is stable today and ventilator management per ICU-pulmonary FiO2 40 % today. wean as tolerated started today. # SVT vs A. Flutter s/p DC x 3 # NSTEMI HR is controlled in the 100 range and tolerating Digoxin Vasopressors in place Levophed/Neosyn Cardiology consultation Dr. Morillo requested and TTE requested and poor window. Will need repeat TTE when able to safely complete. Limited due to covid positive Troponin 3.4 now 0.7 EKG 05/17 NSR # AG metabolic acidosis Ddx lactic acidosis Improving. # Hyperglycemia r/o DKA ABG and Ketones ordered Endocrine consult with Dr. Shelley IV insulin gtt stopped last night and in SQ insulin coverage now # Hypernatremia Na 146 Monitor BMP IVF to 1/2 NS lower rate 75 cc hr continue # COVID 19 Positive on admission. Original infection > 15 days ago, do not qualify for Revdisimir or plasma Added Dexamethasone Contact and droplet isolation # Dysphagia PEG REMOVED 05/16 Carlo Vargas consulted and appreciate follow up and final plan for PEG replacement PENDING. PEG site with dressing in place and OFF PEG for now. NGT placed and Tube feeds started 05/18 # Thrombocytopenia Platelets down from 80 K to 64 K to 66 K and UP to 84 K ( OFF heparin ) 05/17 dc heparin, use SCD, order US Liver, HIT Ab, HIV US legs to r.o d[place] [facility] [place] # Hypokalemia Improved # Dementia Baseline # FULL CODE SW follow up to reach out to DPOA and consider change in code status due to high morbidity and risk of inpatient mortality. > 55 min spent in coordination of care and consultation with physicians and RN. Subjective Date patient seen: May 20, 2020 Time patient seen: 11:30 ROS Limited/Unobtainable: Yes Allergies: Coded Allergies: DIVALPROEX SODIUM (Verified Allergy, Unknown, 05/14/20) PENICILLINS (Verified Allergy, Unknown, 05/14/20) All Systems: reviewed and negative except above Subjective Non verbal, intubated Objective Last 24 Hour Vital Signs Date Time Temp Pulse Resp B/P (MAP) Pulse Ox O2 Delivery O2 Flow Rate FiO2 05/20/20 11:30 84 15 102/57 (72) 99 05/20/20 11:09 84 20 40 40 05/20/20 11:00 84 14 102/60 (74) 99 05/20/20 11:00 102/60 05/20/20 10:30 81 14 95/56 (69) 99 05/20/20 10:00 97/58 05/20/20 10:00 79 14 97/58 (71) 99 05/20/20 09:30 76 15 98/56 (70) 99 05/20/20 09:00 94/53 05/20/20 09:00 76 14 94/53 (67) 100 05/20/20 08:30 76 14 98/60 (73) 100 05/20/20 08:00 73 05/20/20 08:00 100/55 05/20/20 08:00 98.2 72 13 100/55 (70) 100 05/20/20 08:00 40 05/20/20 08:00 Mechanical Ventilator 05/20/20 07:30 73 13 114/55 (74) 100 05/20/20 07:15 73 14 40 05/20/20 07:00 94/61 05/20/20 07:00 74 13 94/61 (72) 100 05/20/20 06:31 73 18 05/20/20 06:30 72 15 102/59 (73) 100 05/20/20 06:00 88/51 05/20/20 06:00 69 13 91/50 (64) 100 05/20/20 05:30 67 13 93/52 (66) 100 05/20/20 05:00 99/56 05/20/20 05:00 65 14 99/56 (70) 100 05/20/20 04:30 68 13 96/47 (63) 100 05/20/20 04:00 98.9 68 14 95/50 (65) 100 05/20/20 04:00 Mechanical Ventilator 05/20/20 04:00 95/50 05/20/20 04:00 40 05/20/20 04:00 65 05/20/20 03:30 69 15 98/50 (66) 96 05/20/20 03:23 81 20 40 05/20/20 03:00 99/50 05/20/20 03:00 75 20 99/50 (66) 100 05/20/20 02:30 72 14 90/45 (60) 100 05/20/20 02:00 70 14 99/55 (70) 100 05/20/20 02:00 99/55 05/20/20 01:15 70 15 94/51 (65) 100 05/20/20 01:00 69 16 96/52 (67) 100 05/20/20 01:00 94/51 05/20/20 00:30 69 16 107/52 (70) 100 05/20/20 00:15 73 16 107/62 (77) 100 05/20/20 00:14 74 17 104/60 (75) 100 05/20/20 00:00 Mechanical Ventilator 05/20/20 00:00 104/60 05/20/20 00:00 99.2 75 17 98/57 (71) 98 05/20/20 00:00 75 05/19/20 23:45 77 18 108/64 (79) 99 05/19/20 23:30 74 19 108/57 (74) 99 05/19/20 23:15 71 13 114/61 (78) 100 05/19/20 23:01 77 20 40 05/19/20 23:00 76 16 105/57 (73) 100 05/19/20 23:00 114/61 05/19/20 22:45 81 17 98/58 (71) 100 05/19/20 22:30 77 17 104/56 (72) 73 05/19/20 22:15 78 16 85/52 (63) 100 05/19/20 22:00 85/52 05/19/20 22:00 80 16 99/46 (63) 100 05/19/20 21:45 77 19 97/56 (70) 100 05/19/20 21:30 78 17 86/50 (62) 100 05/19/20 21:15 81 18 97/50 (66) 100 05/19/20 21:07 81 18 95/54 (68) 100 05/19/20 21:00 83 17 88/56 (67) 100 05/19/20 21:00 95/54 05/19/20 20:45 84 18 99/55 (70) 100 05/19/20 20:30 90 18 112/60 (77) 100 05/19/20 20:22 92 20 126/70 (88) 99 05/19/20 20:19 100.8 05/19/20 20:15 69 20 105/64 (78) 100 05/19/20 20:15 126/70 05/19/20 20:00 Mechanical Ventilator 05/19/20 20:00 100.9 96 23 107/74 (85) 99 05/19/20 20:00 105/64 05/19/20 20:00 40 05/19/20 19:45 97 22 107/67 (80) 100 05/19/20 19:36 96 05/19/20 19:35 96 20 40 05/19/20 19:30 96 22 99/67 (78) 100 05/19/20 19:00 99/60 05/19/20 19:00 95 20 99/60 (73) 100 05/19/20 18:30 95 21 102/58 (73) 100 05/19/20 18:00 101/64 05/19/20 18:00 95 21 101/64 (76) 100 05/19/20 17:37 107/63 05/19/20 17:30 93 20 107/63 (78) 100 05/19/20 17:00 104/67 05/19/20 17:00 92 20 104/67 (79) 100 05/19/20 16:30 93 20 108/64 (79) 100 05/19/20 16:00 Mechanical Ventilator 05/19/20 16:00 95 05/19/20 16:00 98.7 94 17 92/62 (72) 100 05/19/20 16:00 40 05/19/20 16:00 92/62 05/19/20 15:30 95 22 103/64 (77) 99 05/19/20 15:16 94 18 40 05/19/20 15:00 95 18 100/66 (77) 100 05/19/20 15:00 100/66 05/19/20 14:30 98 20 95/59 (71) 100 05/19/20 14:00 99 20 95/62 (73) 100 05/19/20 14:00 95/62 05/19/20 13:30 95 17 102/65 (77) 100 05/19/20 13:00 99.5 96 17 99/61 (74) 95 05/19/20 13:00 99/61 05/19/20 12:30 96 17 99/61 (74) 99 05/19/20 12:00 100/62 05/19/20 12:00 100.5 95 18 100/62 (75) 100 05/19/20 12:00 96 05/19/20 12:00 Mechanical Ventilator 05/19/20 12:00 40 Intake and Output 05/19/20 05/20/20 19:00 07:00 Intake Total 2091.163 ml 2088.705 ml Output Total 815 ml 615 ml Balance 1276.163 ml 1473.705 ml Free Water 290 ml 185 ml IV Total 1306.163 ml 1183.705 ml Tube Feeding 495 ml 720 ml Output Urine Total 815 ml 615 ml # Bowel Movements 1 Laboratory Tests 05/19/20 20:02: POC Whole Blood Glucose [Pending] 05/20/20 00:18: POC Whole Blood Glucose [Pending] 05/20/20 04:00: White Blood Count 13.0H, Red Blood Count 3.08L, Hemoglobin 9.5L, Hematocrit 27.9L, Mean Corpuscular Volume 91, Mean Corpuscular Hemoglobin 30.8, Mean Corpuscular Hemoglobin Concent 33.9, Red Cell Distribution Width 13.0, Platelet Count 103L, Mean Platelet Volume 12.1H, Neutrophils (%) (Auto) , Lymphocytes (% ) (Auto) , Monocytes (%) (Auto) , Eosinophils (%) (Auto) , Basophils (%) (Auto) , Differential Total Cells Counted 100, Neutrophils % (Manual) 94H, Lymphocytes % (Manual) 2L, Monocytes % (Manual) 4, Eosinophils % (Manual) 0, Basophils % ( Manual) 0, Band Neutrophils 0, Platelet Estimate DecreasedL, Platelet Morphology Normal, Hypochromasia 2+, Anisocytosis 1+, Spherocytes 1+, Sodium Level 147H, Potassium Level 3.6, Chloride Level 114H, Carbon Dioxide Level 23, Anion Gap 10, Blood Urea Nitrogen 47H, Creatinine 1.0, Estimat Glomerular Filtration Rate 54.7, Glucose Level 103, Calcium Level 8.7 Height (Feet): 5 Height (Inches): 4.00 Weight (Pounds): 149 General Appearance: moderate distress Neck: non-tender Cardiovascular: normal rate Respiratory/Chest: decreased breath sounds Abdomen: non tender, other - peg removed, small drainage noted Neurologic: other - intubated and sedated Jessica Wade MD May 20, 2020 11:54
--- NOTE | 2020-05-20 12:00 | NUR ---
NURSE NOTES: ABGs obtained and relayed to Dr Enriquez - message left. awaiting call back. Pt repositioned, oral care provided. No distress noted.
--- NOTE | 2020-05-20 12:48 | Surgery Progress Note ---
Surgery Progress Note Subjective Additional Comments ill appearing labs noted exam stable Objective Last 24 Hour Vital Signs Date Time Temp Pulse Resp B/P (MAP) Pulse Ox O2 Delivery O2 Flow Rate FiO2 05/20/20 12:23 30 05/20/20 12:00 Mechanical Ventilator 05/20/20 12:00 40 05/20/20 12:00 84 05/20/20 11:30 84 15 102/57 (72) 99 05/20/20 11:09 84 20 40 40 05/20/20 11:05 40 05/20/20 11:00 84 14 102/60 (74) 99 05/20/20 11:00 102/60 05/20/20 10:30 81 14 95/56 (69) 99 05/20/20 10:00 97/58 05/20/20 10:00 79 14 97/58 (71) 99 05/20/20 09:30 76 15 98/56 (70) 99 05/20/20 09:00 94/53 05/20/20 09:00 76 14 94/53 (67) 100 05/20/20 08:30 76 14 98/60 (73) 100 05/20/20 08:00 73 05/20/20 08:00 100/55 05/20/20 08:00 98.2 72 13 100/55 (70) 100 05/20/20 08:00 40 05/20/20 08:00 Mechanical Ventilator 05/20/20 07:30 73 13 114/55 (74) 100 05/20/20 07:15 73 14 40 05/20/20 07:00 94/61 05/20/20 07:00 74 13 94/61 (72) 100 05/20/20 06:31 73 18 05/20/20 06:30 72 15 102/59 (73) 100 05/20/20 06:00 88/51 05/20/20 06:00 69 13 91/50 (64) 100 05/20/20 05:30 67 13 93/52 (66) 100 05/20/20 05:00 99/56 05/20/20 05:00 65 14 99/56 (70) 100 05/20/20 04:30 68 13 96/47 (63) 100 05/20/20 04:00 98.9 68 14 95/50 (65) 100 05/20/20 04:00 Mechanical Ventilator 05/20/20 04:00 95/50 05/20/20 04:00 40 05/20/20 04:00 65 05/20/20 03:30 69 15 98/50 (66) 96 05/20/20 03:23 81 20 40 05/20/20 03:00 99/50 05/20/20 03:00 75 20 99/50 (66) 100 05/20/20 02:30 72 14 90/45 (60) 100 05/20/20 02:00 70 14 99/55 (70) 100 05/20/20 02:00 99/55 05/20/20 01:15 70 15 94/51 (65) 100 05/20/20 01:00 69 16 96/52 (67) 100 05/20/20 01:00 94/51 05/20/20 00:30 69 16 107/52 (70) 100 05/20/20 00:15 73 16 107/62 (77) 100 05/20/20 00:14 74 17 104/60 (75) 100 05/20/20 00:00 Mechanical Ventilator 05/20/20 00:00 104/60 05/20/20 00:00 99.2 75 17 98/57 (71) 98 05/20/20 00:00 75 05/19/20 23:45 77 18 108/64 (79) 99 05/19/20 23:30 74 19 108/57 (74) 99 05/19/20 23:15 71 13 114/61 (78) 100 05/19/20 23:01 77 20 40 05/19/20 23:00 76 16 105/57 (73) 100 05/19/20 23:00 114/61 05/19/20 22:45 81 17 98/58 (71) 100 05/19/20 22:30 77 17 104/56 (72) 73 05/19/20 22:15 78 16 85/52 (63) 100 05/19/20 22:00 85/52 05/19/20 22:00 80 16 99/46 (63) 100 05/19/20 21:45 77 19 97/56 (70) 100 05/19/20 21:30 78 17 86/50 (62) 100 05/19/20 21:15 81 18 97/50 (66) 100 05/19/20 21:07 81 18 95/54 (68) 100 05/19/20 21:00 83 17 88/56 (67) 100 05/19/20 21:00 95/54 05/19/20 20:45 84 18 99/55 (70) 100 05/19/20 20:30 90 18 112/60 (77) 100 05/19/20 20:22 92 20 126/70 (88) 99 05/19/20 20:19 100.8 05/19/20 20:15 69 20 105/64 (78) 100 05/19/20 20:15 126/70 05/19/20 20:00 Mechanical Ventilator 05/19/20 20:00 100.9 96 23 107/74 (85) 99 05/19/20 20:00 105/64 05/19/20 20:00 40 05/19/20 19:45 97 22 107/67 (80) 100 05/19/20 19:36 96 05/19/20 19:35 96 20 40 05/19/20 19:30 96 22 99/67 (78) 100 05/19/20 19:00 99/60 05/19/20 19:00 95 20 99/60 (73) 100 05/19/20 18:30 95 21 102/58 (73) 100 05/19/20 18:00 101/64 05/19/20 18:00 95 21 101/64 (76) 100 05/19/20 17:37 107/63 05/19/20 17:30 93 20 107/63 (78) 100 05/19/20 17:00 104/67 05/19/20 17:00 92 20 104/67 (79) 100 05/19/20 16:30 93 20 108/64 (79) 100 05/19/20 16:00 Mechanical Ventilator 05/19/20 16:00 95 05/19/20 16:00 98.7 94 17 92/62 (72) 100 05/19/20 16:00 40 05/19/20 16:00 92/62 05/19/20 15:30 95 22 103/64 (77) 99 05/19/20 15:16 94 18 40 05/19/20 15:00 95 18 100/66 (77) 100 05/19/20 15:00 100/66 05/19/20 14:30 98 20 95/59 (71) 100 05/19/20 14:00 99 20 95/62 (73) 100 05/19/20 14:00 95/62 05/19/20 13:30 95 17 102/65 (77) 100 05/19/20 13:00 99.5 96 17 99/61 (74) 95 05/19/20 13:00 99/61 I&O Intake and Output 05/19/20 05/20/20 19:00 07:00 Intake Total 2091.163 ml 2088.705 ml Output Total 815 ml 615 ml Balance 1276.163 ml 1473.705 ml Free Water 290 ml 185 ml IV Total 1306.163 ml 1183.705 ml Tube Feeding 495 ml 720 ml Output Urine Total 815 ml 615 ml # Bowel Movements 1 Dressing: other Wound: other Cardiovascular: RSR Respiratory: decreased breath sounds Abdomen: soft, non-tender, present bowel sounds Extremities: no tenderness, no cyanosis Laboratory Tests Test 05/19/20 20:02 05/20/20 00:18 05/20/20 04:00 05/20/20 12:10 POC Whole Blood Glucose Pending Pending White Blood Count 13.0 K/UL (4.8-10.8) H Red Blood Count 3.08 M/UL (4.20-5.40) L Hemoglobin 9.5 G/DL (12.0-16.0) L Hematocrit 27.9 % (37.0-47.0) L Mean Corpuscular Volume 91 FL (80-99) Mean Corpuscular Hemoglobin 30.8 PG (27.0-31.0) Mean Corpuscular Hemoglobin Concent 33.9 G/DL (32.0-36.0) Red Cell Distribution Width 13.0 % (11.6-14.8) Platelet Count 103 K/UL (150-450) L Mean Platelet Volume 12.1 FL (6.5-10.1) H Neutrophils (%) (Auto) % (45.0-75.0) Lymphocytes (%) (Auto) % (20.0-45.0) Monocytes (%) (Auto) % (1.0-10.0) Eosinophils (%) (Auto) % (0.0-3.0) Basophils (%) (Auto) % (0.0-2.0) Differential Total Cells Counted 100 Neutrophils % (Manual) 94 % (45-75) H Lymphocytes % (Manual) 2 % (20-45) L Monocytes % (Manual) 4 % (1-10) Eosinophils % (Manual) 0 % (0-3) Basophils % (Manual) 0 % (0-2) Band Neutrophils 0 % (0-8) Platelet Estimate Decreased L Platelet Morphology Normal Hypochromasia 2+ Anisocytosis 1+ Spherocytes 1+ Sodium Level 147 MMOL/L (136-145) H Potassium Level 3.6 MMOL/L (3.5-5.1) Chloride Level 114 MMOL/L (98-107) H Carbon Dioxide Level 23 MMOL/L (21-32) Anion Gap 10 mmol/L (5-15) Blood Urea Nitrogen 47 mg/dL (7-18) H Creatinine 1.0 MG/DL (0.55-1.30) Estimat Glomerular Filtration Rate 54.7 mL/min (>60) Glucose Level 103 MG/DL (74-106) Calcium Level 8.7 MG/DL (8.5-10.1) Arterial Blood pH 7.456 (7.350-7.450) Arterial Blood Partial Pressure CO2 30.2 mmHg (35.0-45.0) L Arterial Blood Partial Pressure O2 119.6 mmHg (75.0-100.0) H Arterial Blood HCO3 20.8 mmol/L (22.0-26.0) L Arterial Blood Oxygen Saturation 98.6 % (95-100) Arterial Blood Base Excess -2.3 (-2-2) L Anthony Test Positive Plan Problems: (1) Hypernatremia (2) Renal failure (3) Respiratory failure (4) Sepsis Assessment & Plan: COVID + leukocytosis anemia electrolytes abnormal on iv fluids renal input appreciated cxr noted abx as per ID will follow with recs Interim placement of orogastric tube, also documented on recent abdominal radiograph. Stable satisfactory position of endotracheal tube and right jugular central venous catheter. There is increased pleural fluid and likely left basilar consolidation/atelectasis. The right lung and pleural space remain clear. Impression: Increasing left pleural fluid and likely basilar consolidation/atelectasis. Interim orogastric intubation DAILY ESTIMATED NEEDS: Needs based on Pulmonary, DM, wounds 66.6kg 25-30 kcals/kg 0814-8551 total kcals 1.25-1.5 g protein/kg 83-100 g total protein 20-25 mL/kg 7851-4820 total fluid mLs NUTRITION DIAGNOSIS: Swallowing difficulty r/t dysphagia as evidenced by h/o CVA, pt is GT dep, currently ICU status, now intubated, off pressor support, GT feeds initiated. CURRENT TF:Glucerna 1.2 @45ml/hr ENTERAL NUTRITION RECOMMENDATIONS: As medically able: GLUCERNA 1.5 goal of 45ml/hr x24 hrs to provide 1080ml, 1620 kcal, 89g pro, 820ml free H2O -> as medically able without aspiration risk start Glucerna 1.5 @low rate 25ml/hr for 6 hrs. Advance as tolerated 10ml/hr q4-6 hrs to goal. - Flush per MD, HOB over 30 degrees. ---- If not hemodynamically stable, rec trophic feeds of 5-10ml/hr to maintain gut integrity. ADDITIONAL RECOMMENDATIONS: 1) Obtain an accurate calibrated bed scale wt 2) F/up w/ H&P 3) With active TF orders, add JASMYN BID for noted DTPI wounds 4) TF recs as above when off bipap and w/ hemodynamic stability -> Now intubated, off pressors, on GT feeds. (5) Elevated d-dimer (6) COVID-19 Assessment & Plan: ++ (7) Pressure ulcer Assessment & Plan: Pt presented on admission with multiple Pressure injuries.DTPI noted to R Buttocks (L)3.8cm x (W)3.4cm. Base of wound is purpuric ,fluctuant with surrounding maroon and indurated borders. DTPI Upper L Buttocks(L)5.5cm x (W)4cm. Base of wound is maroon and indurated. Borders are irregular. Non-Blanchable erythema without induration/fluctuance L lower buttocks(L)4cm x ( W)7cm. R and L heels are soft but blanchable. Erosion noted at peristomal GT site. Site is erythematous and excoriated. Small amt. sanguineous exudate. Tx.Plan: Apply Moisture Barrier Paste to Sacrum, R and L Buttocks. Cover each area with Optifoam drsg. Change every 3 days and prn. Apply Moisture Barrier Paste to R and L Ischial tuberosities with each incontinence care. Apply Cavilon Skin Barrier to both heels. Cover each heel and malleoli with Optifoam drsg. Change every 7 days and prn. Reposition at least every 2hours or as tolerated. Off-load heels with pillow. APM/DARIN Mattress overlay. Apply Zinc Oxide Paste TID to GT site. Leave open to Air. (8) Dementia (9) CVA (cerebral vascular accident) (10) T2DM (type 2 diabetes mellitus) (11) Gastrostomy present (12) COVID-19 (13) Rapid atrial fibrillation Paul Garcia May 20, 2020 12:48
[2020-05-20] MEDS ORDERED: Zinc Oxide Oint 2oz TOPIC PRN (13:00)
--- NOTE | 2020-05-20 13:03 | Cardiac Electrophysiology PN ---
Assessment/Plan Assessment/Plan 1. [id number] myocardial infarction. Her troponin was 1.258,1.2,1.9, 3.4 and the down to 0.7 EKG does not show any acute ST-T wave abnormality and certainly no ST elevation. Due to septic shock, DCCV and Renal failure. The echocardiogram had poor windows. 2. PAF with RVR. S/P DCCV 3 times No more fib or accelerated junctional rhythm. Can not use beta-ramakrishna or calcium-channel ramakrishna as the patient is still on Levophed. Loaded with digoxin and dig level is 1.6 3. Septic shock. The patient is on Levophed 4 mcg as well as broad-spectrum antibiotic with vancomycin and cefepime. 4. Severe hypernatremia with sodium of 174, BUN of 131, creatinine 2.7 due to dehydration. Sodium is 155 with BUN of 91 and creatinine of 1.9 with IV fluids. 5. Lactic acidosis, septic shock, on antibiotic. 6. Dysphagia, status post PEG placement. 7. History of CVA and dementia. 8. Respiratory failure, currently on the ventilator at 30% FiO2. KIMMY RN and Dr Wade Subjective Subjective In ICU in SR with no atrial fib or Junctional tach. Levophed was decreased from 12 to 4 Mcg on the Vent 40% Fio2 In Covid isolation Objective Last 24 Hour Vital Signs Date Time Temp Pulse Resp B/P (MAP) Pulse Ox O2 Delivery O2 Flow Rate FiO2 05/20/20 12:23 30 05/20/20 12:00 Mechanical Ventilator 05/20/20 12:00 40 05/20/20 12:00 84 05/20/20 11:30 84 15 102/57 (72) 99 05/20/20 11:09 84 20 40 40 05/20/20 11:05 40 05/20/20 11:00 84 14 102/60 (74) 99 05/20/20 11:00 102/60 05/20/20 10:30 81 14 95/56 (69) 99 05/20/20 10:00 97/58 05/20/20 10:00 79 14 97/58 (71) 99 05/20/20 09:30 76 15 98/56 (70) 99 05/20/20 09:00 94/53 05/20/20 09:00 76 14 94/53 (67) 100 05/20/20 08:30 76 14 98/60 (73) 100 05/20/20 08:00 73 05/20/20 08:00 100/55 05/20/20 08:00 98.2 72 13 100/55 (70) 100 05/20/20 08:00 40 05/20/20 08:00 Mechanical Ventilator 05/20/20 07:30 73 13 114/55 (74) 100 05/20/20 07:15 73 14 40 05/20/20 07:00 94/61 05/20/20 07:00 74 13 94/61 (72) 100 05/20/20 06:31 73 18 05/20/20 06:30 72 15 102/59 (73) 100 05/20/20 06:00 88/51 05/20/20 06:00 69 13 91/50 (64) 100 05/20/20 05:30 67 13 93/52 (66) 100 05/20/20 05:00 99/56 05/20/20 05:00 65 14 99/56 (70) 100 05/20/20 04:30 68 13 96/47 (63) 100 05/20/20 04:00 98.9 68 14 95/50 (65) 100 05/20/20 04:00 Mechanical Ventilator 05/20/20 04:00 95/50 05/20/20 04:00 40 05/20/20 04:00 65 05/20/20 03:30 69 15 98/50 (66) 96 05/20/20 03:23 81 20 40 05/20/20 03:00 99/50 05/20/20 03:00 75 20 99/50 (66) 100 05/20/20 02:30 72 14 90/45 (60) 100 05/20/20 02:00 70 14 99/55 (70) 100 05/20/20 02:00 99/55 05/20/20 01:15 70 15 94/51 (65) 100 05/20/20 01:00 69 16 96/52 (67) 100 05/20/20 01:00 94/51 05/20/20 00:30 69 16 107/52 (70) 100 05/20/20 00:15 73 16 107/62 (77) 100 05/20/20 00:14 74 17 104/60 (75) 100 05/20/20 00:00 Mechanical Ventilator 05/20/20 00:00 104/60 05/20/20 00:00 99.2 75 17 98/57 (71) 98 05/20/20 00:00 75 05/19/20 23:45 77 18 108/64 (79) 99 05/19/20 23:30 74 19 108/57 (74) 99 05/19/20 23:15 71 13 114/61 (78) 100 05/19/20 23:01 77 20 40 05/19/20 23:00 76 16 105/57 (73) 100 05/19/20 23:00 114/61 05/19/20 22:45 81 17 98/58 (71) 100 05/19/20 22:30 77 17 104/56 (72) 73 05/19/20 22:15 78 16 85/52 (63) 100 05/19/20 22:00 85/52 05/19/20 22:00 80 16 99/46 (63) 100 05/19/20 21:45 77 19 97/56 (70) 100 05/19/20 21:30 78 17 86/50 (62) 100 05/19/20 21:15 81 18 97/50 (66) 100 05/19/20 21:07 81 18 95/54 (68) 100 05/19/20 21:00 83 17 88/56 (67) 100 05/19/20 21:00 95/54 05/19/20 20:45 84 18 99/55 (70) 100 05/19/20 20:30 90 18 112/60 (77) 100 05/19/20 20:22 92 20 126/70 (88) 99 05/19/20 20:19 100.8 05/19/20 20:15 69 20 105/64 (78) 100 05/19/20 20:15 126/70 05/19/20 20:00 Mechanical Ventilator 05/19/20 20:00 100.9 96 23 107/74 (85) 99 05/19/20 20:00 105/64 05/19/20 20:00 40 05/19/20 19:45 97 22 107/67 (80) 100 05/19/20 19:36 96 05/19/20 19:35 96 20 40 9/10/20 19:30 96 22 99/67 (78) 100 05/19/20 19:00 99/60 05/19/20 19:00 95 20 99/60 (73) 100 05/19/20 18:30 95 21 102/58 (73) 100 05/19/20 18:00 101/64 05/19/20 18:00 95 21 101/64 (76) 100 05/19/20 17:37 107/63 05/19/20 17:30 93 20 107/63 (78) 100 05/19/20 17:00 104/67 05/19/20 17:00 92 20 104/67 (79) 100 05/19/20 16:30 93 20 108/64 (79) 100 05/19/20 16:00 Mechanical Ventilator 05/19/20 16:00 95 05/19/20 16:00 98.7 94 17 92/62 (72) 100 05/19/20 16:00 40 05/19/20 16:00 92/62 05/19/20 15:30 95 22 103/64 (77) 99 05/19/20 15:16 94 18 40 05/19/20 15:00 95 18 100/66 (77) 100 05/19/20 15:00 100/66 05/19/20 14:30 98 20 95/59 (71) 100 05/19/20 14:00 99 20 95/62 (73) 100 05/19/20 14:00 95/62 05/19/20 13:30 95 17 102/65 (77) 100 Intake and Output 05/19/20 05/20/20 19:00 07:00 Intake Total 2091.163 ml 2088.705 ml Output Total 815 ml 615 ml Balance 1276.163 ml 1473.705 ml Free Water 290 ml 185 ml IV Total 1306.163 ml 1183.705 ml Tube Feeding 495 ml 720 ml Output Urine Total 815 ml 615 ml # Bowel Movements 1 Laboratory Tests Test 05/19/20 20:02 05/20/20 00:18 05/20/20 04:00 05/20/20 12:10 POC Whole Blood Glucose Pending Pending White Blood Count 13.0 K/UL (4.8-10.8) H Red Blood Count 3.08 M/UL (4.20-5.40) L Hemoglobin 9.5 G/DL (12.0-16.0) L Hematocrit 27.9 % (37.0-47.0) L Mean Corpuscular Volume 91 FL (80-99) Mean Corpuscular Hemoglobin 30.8 PG (27.0-31.0) Mean Corpuscular Hemoglobin Concent 33.9 G/DL (32.0-36.0) Red Cell Distribution Width 13.0 % (11.6-14.8) Platelet Count 103 K/UL (150-450) L Mean Platelet Volume 12.1 FL (6.5-10.1) H Neutrophils (%) (Auto) % (45.0-75.0) Lymphocytes (%) (Auto) % (20.0-45.0) Monocytes (%) (Auto) % (1.0-10.0) Eosinophils (%) (Auto) % (0.0-3.0) Basophils (%) (Auto) % (0.0-2.0) Differential Total Cells Counted 100 Neutrophils % (Manual) 94 % (45-75) H Lymphocytes % (Manual) 2 % (20-45) L Monocytes % (Manual) 4 % (1-10) Eosinophils % (Manual) 0 % (0-3) Basophils % (Manual) 0 % (0-2) Band Neutrophils 0 % (0-8) Platelet Estimate Decreased L Platelet Morphology Normal Hypochromasia 2+ Anisocytosis 1+ Spherocytes 1+ Sodium Level 147 MMOL/L (136-145) H Potassium Level 3.6 MMOL/L (3.5-5.1) Chloride Level 114 MMOL/L (98-107) H Carbon Dioxide Level 23 MMOL/L (21-32) Anion Gap 10 mmol/L (5-15) Blood Urea Nitrogen 47 mg/dL (7-18) H Creatinine 1.0 MG/DL (0.55-1.30) Estimat Glomerular Filtration Rate 54.7 mL/min (>60) Glucose Level 103 MG/DL (74-106) Calcium Level 8.7 MG/DL (8.5-10.1) Arterial Blood pH 7.456 (7.350-7.450) Arterial Blood Partial Pressure CO2 30.2 mmHg (35.0-45.0) L Arterial Blood Partial Pressure O2 119.6 mmHg (75.0-100.0) H Arterial Blood HCO3 20.8 mmol/L (22.0-26.0) L Arterial Blood Oxygen Saturation 98.6 % (95-100) Arterial Blood Base Excess -2.3 (-2-2) L Anthony Test Positive Microbiology Date/Time Source Procedure Growth Status 05/17/20 16:00 Blood Blood Culture - Preliminary NO GROWTH AFTER 48 HOURS Resulted 05/20/20 04:00 Rectum Received Objective HEAD AND NECK: Show no JVD. She is orally intubated. LUNGS: Coarse rhonchi. CARDIOVASCULAR: Shows regular S1 and S2 with no gallop. ABDOMEN: Soft. Status post G-tube. EXTREMITIES: Show no pitting edema. Norman Morillo MD May 20, 2020 13:03
--- NOTE | 2020-05-20 13:07 | Infectious Diseases Prog Note ---
Assessment/Plan 70 yo female with PMHx of Dementia, DM, CVA ( S/P PEG), COVID 19 infection and pressure ulcers. Septic Shock-combination cardiogenic and septic; pressors requirements improving Gram positive bacteremia- contaminant -05/14 Bcx 1/ S. haemolyticus; 05/17 Bcx NTD UTI UA (+); ucx 10-20k P. mirabilis (S Ceftriaxone, Cefepime) PNA, superimposed bacterial -05/19 CXR: Increasing left pleural fluid and likely basilar consolidation/ atelectasis. Interim orogastric intubation 05/16 CXR: Retrocardiac density may represent atelectasis versus infiltrate. CXR 05/14/20 showed Retrocardiac atelectasis/infiltrate with Pulmonary venous congestion. sp cx MDR E.coli (S Cefepime, Meropenem, Zosyn) Hx of COVID 19 - Bacteria secondary infection? Asp PNA? COVID 19 tested Pos OSF - about 3 week [employer] -still positive Rapid COVID PCR 05/14 Resp Fail Intuabted on Vent Leukocytosis; improving (on steroids) Fever; improving EMA, improving SVT -sp cardioversion Hyperglycemia Dementia DM Hx CVA ( S/P PEG) pressure ulcers PLAN - Meropenem #4 (abx d #/) - On Decadron #7 per pulm -05/19 SP IV Vancomcyin #6 -05/17 SP Cefepime #4 - f/u Cultures - Monitor CBC and Temps -f/u repeat Bcx x2 -out of the window for Remdesivir- doubt beneficial at this point and shock more bacterial related Thank you for consulting [facility]. Will continue to follow along with you. Discussed with RN. Subjective Allergies: Coded Allergies: DIVALPROEX SODIUM (Verified Allergy, Unknown, 05/14/20) PENICILLINS (Verified Allergy, Unknown, 05/14/20) Tm 100.9 FIo2 30% wbc improving repeat Bcx NTD levo down to 4 Objective Last 24 Hour Vital Signs Date Time Temp Pulse Resp B/P (MAP) Pulse Ox O2 Delivery O2 Flow Rate FiO2 05/20/20 12:23 30 05/20/20 12:00 Mechanical Ventilator 05/20/20 12:00 40 05/20/20 12:00 84 05/20/20 11:30 84 15 102/57 (72) 99 05/20/20 11:09 84 20 40 40 05/20/20 11:05 40 05/20/20 11:00 84 14 102/60 (74) 99 05/20/20 11:00 102/60 05/20/20 10:30 81 14 95/56 (69) 99 05/20/20 10:00 97/58 05/20/20 10:00 79 14 97/58 (71) 99 05/20/20 09:30 76 15 98/56 (70) 99 05/20/20 09:00 94/53 05/20/20 09:00 76 14 94/53 (67) 100 05/20/20 08:30 76 14 98/60 (73) 100 05/20/20 08:00 73 05/20/20 08:00 100/55 05/20/20 08:00 98.2 72 13 100/55 (70) 100 05/20/20 08:00 40 05/20/20 08:00 Mechanical Ventilator 05/20/20 07:30 73 13 114/55 (74) 100 05/20/20 07:15 73 14 40 05/20/20 07:00 94/61 05/20/20 07:00 74 13 94/61 (72) 100 05/20/20 06:31 73 18 05/20/20 06:30 72 15 102/59 (73) 100 05/20/20 06:00 88/51 05/20/20 06:00 69 13 91/50 (64) 100 05/20/20 05:30 67 13 93/52 (66) 100 05/20/20 05:00 99/56 05/20/20 05:00 65 14 99/56 (70) 100 05/20/20 04:30 68 13 96/47 (63) 100 05/20/20 04:00 98.9 68 14 95/50 (65) 100 05/20/20 04:00 Mechanical Ventilator 05/20/20 04:00 95/50 05/20/20 04:00 40 05/20/20 04:00 65 05/20/20 03:30 69 15 98/50 (66) 96 05/20/20 03:23 81 20 40 05/20/20 03:00 99/50 05/20/20 03:00 75 20 99/50 (66) 100 05/20/20 02:30 72 14 90/45 (60) 100 05/20/20 02:00 70 14 99/55 (70) 100 05/20/20 02:00 99/55 05/20/20 01:15 70 15 94/51 (65) 100 05/20/20 01:00 69 16 96/52 (67) 100 05/20/20 01:00 94/51 05/20/20 00:30 69 16 107/52 (70) 100 05/20/20 00:15 73 16 107/62 (77) 100 05/20/20 00:14 74 17 104/60 (75) 100 05/20/20 00:00 Mechanical Ventilator 05/20/20 00:00 104/60 05/20/20 00:00 99.2 75 17 98/57 (71) 98 05/20/20 00:00 75 05/19/20 23:45 77 18 108/64 (79) 99 05/19/20 23:30 74 19 108/57 (74) 99 05/19/20 23:15 71 13 114/61 (78) 100 05/19/20 23:01 77 20 40 05/19/20 23:00 76 16 105/57 (73) 100 05/19/20 23:00 114/61 05/19/20 22:45 81 17 98/58 (71) 100 05/19/20 22:30 77 17 104/56 (72) 73 05/19/20 22:15 78 16 85/52 (63) 100 05/19/20 22:00 85/52 05/19/20 22:00 80 16 99/46 (63) 100 05/19/20 21:45 77 19 97/56 (70) 100 05/19/20 21:30 78 17 86/50 (62) 100 05/19/20 21:15 81 18 97/50 (66) 100 05/19/20 21:07 81 18 95/54 (68) 100 05/19/20 21:00 83 17 88/56 (67) 100 05/19/20 21:00 95/54 05/19/20 20:45 84 18 99/55 (70) 100 05/19/20 20:30 90 18 112/60 (77) 100 05/19/20 20:22 92 20 126/70 (88) 99 05/19/20 20:19 100.8 05/19/20 20:15 69 20 105/64 (78) 100 05/19/20 20:15 126/70 05/19/20 20:00 Mechanical Ventilator 05/19/20 20:00 100.9 96 23 107/74 (85) 99 05/19/20 20:00 105/64 05/19/20 20:00 40 05/19/20 19:45 97 22 107/67 (80) 100 05/19/20 19:36 96 05/19/20 19:35 96 20 40 05/19/20 19:30 96 22 99/67 (78) 100 05/19/20 19:00 99/60 05/19/20 19:00 95 20 99/60 (73) 100 05/19/20 18:30 95 21 102/58 (73) 100 05/19/20 18:00 101/64 05/19/20 18:00 95 21 101/64 (76) 100 05/19/20 17:37 107/63 05/19/20 17:30 93 20 107/63 (78) 100 05/19/20 17:00 104/67 05/19/20 17:00 92 20 104/67 (79) 100 05/19/20 16:30 93 20 108/64 (79) 100 05/19/20 16:00 Mechanical Ventilator 05/19/20 16:00 95 05/19/20 16:00 98.7 94 17 92/62 (72) 100 05/19/20 16:00 40 05/19/20 16:00 92/62 05/19/20 15:30 95 22 103/64 (77) 99 05/19/20 15:16 94 18 40 05/19/20 15:00 95 18 100/66 (77) 100 05/19/20 15:00 100/66 05/19/20 14:30 98 20 95/59 (71) 100 05/19/20 14:00 99 20 95/62 (73) 100 05/19/20 14:00 95/62 05/19/20 13:30 95 17 102/65 (77) 100 Height (Feet): 5 Height (Inches): 4.00 Weight (Pounds): 149 GEN: On Vent HEENT: NCAT, MMM, Intubated Pulm: Equal rise and fall B/L ABD: Soft, ND, PEG (No e/p) Neuro: Not following, Intubated SKIN: Exposed skin with no rash, Normal in color Microbiology Date/Time Source Procedure Growth Status 05/17/20 16:00 Blood Blood Culture - Preliminary NO GROWTH AFTER 48 HOURS Resulted 05/20/20 04:00 Rectum Received Laboratory Tests Test 05/19/20 20:02 05/20/20 00:18 05/20/20 04:00 05/20/20 12:10 POC Whole Blood Glucose Pending Pending White Blood Count 13.0 K/UL (4.8-10.8) H Red Blood Count 3.08 M/UL (4.20-5.40) L Hemoglobin 9.5 G/DL (12.0-16.0) L Hematocrit 27.9 % (37.0-47.0) L Mean Corpuscular Volume 91 FL (80-99) Mean Corpuscular Hemoglobin 30.8 PG (27.0-31.0) Mean Corpuscular Hemoglobin Concent 33.9 G/DL (32.0-36.0) Red Cell Distribution Width 13.0 % (11.6-14.8) Platelet Count 103 K/UL (150-450) L Mean Platelet Volume 12.1 FL (6.5-10.1) H Neutrophils (%) (Auto) % (45.0-75.0) Lymphocytes (%) (Auto) % (20.0-45.0) Monocytes (%) (Auto) % (1.0-10.0) Eosinophils (%) (Auto) % (0.0-3.0) Basophils (%) (Auto) % (0.0-2.0) Differential Total Cells Counted 100 Neutrophils % (Manual) 94 % (45-75) H Lymphocytes % (Manual) 2 % (20-45) L Monocytes % (Manual) 4 % (1-10) Eosinophils % (Manual) 0 % (0-3) Basophils % (Manual) 0 % (0-2) Band Neutrophils 0 % (0-8) Platelet Estimate Decreased L Platelet Morphology Normal Hypochromasia 2+ Anisocytosis 1+ Spherocytes 1+ Sodium Level 147 MMOL/L (136-145) H Potassium Level 3.6 MMOL/L (3.5-5.1) Chloride Level 114 MMOL/L (98-107) H Carbon Dioxide Level 23 MMOL/L (21-32) Anion Gap 10 mmol/L (5-15) Blood Urea Nitrogen 47 mg/dL (7-18) H Creatinine 1.0 MG/DL (0.55-1.30) Estimat Glomerular Filtration Rate 54.7 mL/min (>60) Glucose Level 103 MG/DL (74-106) Calcium Level 8.7 MG/DL (8.5-10.1) Arterial Blood pH 7.456 (7.350-7.450) Arterial Blood Partial Pressure CO2 30.2 mmHg (35.0-45.0) L Arterial Blood Partial Pressure O2 119.6 mmHg (75.0-100.0) H Arterial Blood HCO3 20.8 mmol/L (22.0-26.0) L Arterial Blood Oxygen Saturation 98.6 % (95-100) Arterial Blood Base Excess -2.3 (-2-2) L Anthony Test Positive Current Medications Medications (Trade) Dose Ordered Sig/Morgan Route PRN Reason Start Time Stop Time Status Last Admin Dose Admin Acetaminophen (Tylenol) 650 mg Q4H PRN GT Temp >100.5 05/16/20 06:15 06/15/20 06:14 05/19/20 19:49 Acetaminophen (Tylenol) 650 mg Q4H PRN RECTAL Temp >100.5 05/16/20 19:45 06/15/20 19:44 05/17/20 18:30 Chlorhexidine Gluconate (Lilliam-Hex 2%) 1 applic DAILY@1999 TOPIC 05/15/20 20:00 08/13/20 19:59 05/19/20 19:48 Dexamethasone Sodium Phosphate (Decadron 10mg/ ml Inj) 6 mg DAILY IV 05/16/20 09:00 05/24/20 08:59 05/20/20 09:06 Dextrose (Dextrose 50%) 25 ml Q30M PRN IV Hypoglycemia 05/15/20 18:00 08/13/20 17:59 Dextrose (Dextrose 50%) 50 ml Q30M PRN IV Hypoglycemia 05/15/20 18:00 08/13/20 17:59 Insulin Aspart (NovoLOG) Q4HR SUBQ 05/15/20 21:00 08/13/20 20:59 05/20/20 00:21 Meropenem 1 gm/ Sodium Chloride 55 ml @ 110 mls/hr Q12HR@0200,1400 IVPB 05/17/20 14:00 05/22/20 13:59 05/20/20 02:39 Morphine Sulfate (Morphine Sulfate) 2 mg EVERY 3 HOURS PRN IVP Moderate Pain (Pain Scale 4-6) 05/14/20 20:15 05/21/20 20:14 05/20/20 02:39 Morphine Sulfate (Morphine Sulfate) 4 mg EVERY 3 HOURS PRN IVP Severe Pain (Pain Scale 7-10) 05/14/20 20:15 05/21/20 20:14 05/19/20 19:49 Norepinephrine Bitartrate 16 mg/ Dextrose 516 ml @ 0 mls/hr Q24H IV 05/14/20 23:30 06/13/20 23:29 05/19/20 17:37 Pantoprazole (Protonix) 40 mg DAILY IV 05/15/20 09:00 06/14/20 08:59 05/20/20 09:06 Phenylephrine HCl 100 mg/Dextrose 250 ml @ 0 mls/hr Q24H IV 05/15/20 00:15 06/14/20 00:14 05/15/20 13:28 Sodium Chloride 1,000 ml @ 75 mls/hr [id number] IV 05/15/20 06:45 06/14/20 06:44 05/20/20 05:13 Vasopressin 100 units/Sodium Chloride 100 ml @ 0 mls/hr Q24H IV 05/15/20 00:15 06/14/20 00:14 Zinc Oxide (Zinc Oxide) 1 applic TIDPRN PRN TOPIC Abdominal cramps 05/20/20 13:00 08/18/20 12:59 Yomaira Terry M.D. May 20, 2020 13:07
--- NOTE | 2020-05-20 14:00 | NUR ---
NURSE NOTES: Pt repositioned, no distress noted at this time. Will continue to monitor.
--- NOTE | 2020-05-20 15:26 | Diagnostic Imaging Report ---
Indication: Abnormal liver function tests, thrombocytopenia Technique: Limited grayscale and duplex images of the liver, gallbladder, and spleen. Exam was limited as patient is COVID 19 positive Comparison: none Findings: The spleen size is normal. The gallbladder contains sludge. No stones. No wall thickening nor pericholecystic fluid. Common bile duct measures 4 mm in diameter. Small amount free fluid is seen adjacent to the liver and spleen Impression: Gallbladder sludge. Negative for dilated bile ducts Normal appearing liver and spleen Trace ascites
--- NOTE | 2020-05-20 15:42 | NUR ---
CASE MANAGEMENT: REVIEW 05/20/2020 SI:SEPSIS. COVID (+) VS: T 98.8 HR 85 RR 17 B/P 101/54 SATS 99% ON MECH VENT FIO2 40 LABS: WBC 13 NA 147 CL 114 BUN 47 ABGs PH 7.456 PCO2 30.2 PO2 119.6 HCO3 20.3 BE -2.3 IS:NS @ 75 ML/HR DECADRON IV QD MEROPENEM IV Q12H LEVOPHED IV PER PARAMETERS PHENYLEPHRINE IV PER PARAMETERS VASOPRESSIN IV PER PARAMETERS INSULIN ASPART SUBQ Q4H ICU PLAN OF CARE: WEANING TRIALS GTUBE REPLACEMENT WHEN MORE STABLE
--- NOTE | 2020-05-20 16:00 | NUR ---
NURSE NOTES: Pt repositioned, oral care provided, continues to tolerate weaning trial. no distress noted.
--- NOTE | 2020-05-20 16:57 | NUR ---
NURSE NOTES: Received call back from Dr Enriquez with new vent settings as tolerated - pt may be placed back on AC mode with previous settings if not tolerating the following new settings: SIMV 8 PS 12 FiO2 40% Anna, RT notified.
--- NOTE | 2020-05-20 18:00 | NUR ---
NURSE NOTES: Pt repositioned. Tolerating SIMV mode. No distress noted. Will continue monitoring.
--- NOTE | 2020-05-20 19:10 | NUR ---
NURSE HAND-OFF REPORT: Latest Vital Signs: Temperature 98.2 , Pulse 85 , B/P 96 /57 , Respiratory Rate 12 , O2 SAT 100 , Mechanical Ventilator, O2 Flow Rate 15.0 . EKG Rhythm: Sinus Rhythm Rhythm change?: N Notified?: N Response: N/A Latest Garza Fall Score: 50 Fall Risk: High Risk Safety Measures: Call light Within Reach, Bed Alarm Zone 1, Side Rails Side Rails x2, Bed position Low and Locked. Fall Precautions: Yellow Gown & socks Pt fall education Call light within reach Report given to SARA Urrutia.
--- NOTE | 2020-05-20 19:30 | NUR ---
NURSE NOTES: SBAR received from Homar RN. Patient is awake, non-verbal and slightly agitated. Patients has right arm weakness 0/5 strength due an old CVA. Left side upper extremity is 1-3/5. Patient is orally intubated 7.5/23cm at the lower lip line. SIMV8, PS12, FiO2 of 40%. Patient is currently tolerating Vent settings. SpO2 is 100% and RR are 16, Blood pressure is 101/54 while on 4mcg/min of Levophed. Patient has a dry and clean dressing at abdomen site of an removal of prior GT. Currently has NGT at 60cm laxmi infusing 1.2 at 60ml/hr. Multiple skin alterations noted. There is a right IJ TLC covered with transparent clean and dry dressing that is infusing Levophed at 4mcg/min and NS at 75ml/hr and NS TKO at 10ml/hr. There is a Arauz catheter that is hanging below waist line with yellow colored urine and is properly anchored. There is a low airloss mattress underneath patient. All safety measures have been checked and are in place. Ventilator and suctioning safety measures checked, bed in lowest position and locked, Bed alarm engaged. Will continue to monitor.
--- NOTE | 2020-05-20 20:02 | NUR ---
NURSE NOTES: Bedside assessment performed, VS obtained and remain stable at this time while on Levophed at 4mcg/min. Will continue to monitor and titrate accordingly. Respiratory status remains stable while on SIMV. Pt noted to have fever of 100.5F (ax). Pt noted to be hot to touch, cooling measures initiated. Will continue to monitor. Pt remains clean and dry. Pt repositioned for safety and comfort. Fall, Aspiration and Skin precautions observed. Pt remains resting in bed; Bed remains in the lowest position with the safety wheels engaged, call light within reach, side rails up x3 and bed alarm activated. Will continue plan of care. Will continue to monitor.
[2020-05-20] MEDS: Dyna-Hex 2% Top Sol 2oz TOPIC SCH (21:12)
[2020-05-20] MEDS: Morphine Sulfate 4mg/ml Inj (IV USE ONLY) IVP PRN (21:12)
--- NOTE | 2020-05-20 22:00 | NUR ---
NURSE NOTES: Bedside assessment performed, reassessed after Ingenio 4mg IVP was given; pt now with a FLACC scale of 0 noted. VS obtained and remain stable at this time while on 4mcg/min with no adverse effects noted. Respiratory status remains stable while on SIMV. Pt's temperature now after cooling measures were initiated is now 99.5F axillary. Cooling measures will continue. Pt remains clean and dry. Pt repositioned for safety and comfort. Fall, Aspiration and Skin precautions observed. Pt remains resting in bed; Bed remains in the lowest position with the safety wheels engaged, call light within reach, side rails up x3 and bed alarm activated. Will continue plan of care. Will continue to monitor.
[2020-05-21] VITALS (49 sets, daily range): BP systolic 83–126; BP diastolic 43–69
--- NOTE | 2020-05-21 | NUR ---
NURSE NOTES: Bedside assessment performed, pain assessment performed using the FLACC scale method and right now patients FLACC score is 0/10. VS obtained and remain stable at this time while on 4mcg/min with no adverse effects noted. Attempted to wean down on the pressors but patients Blood pressure would drip into the lower 80s systolically. Respiratory status remains stable while on SIMV. Cooling measures still continue. Pt remains clean and dry. Pt repositioned for safety and comfort. Fall, Aspiration and Skin precautions observed. Pt remains resting in bed; Bed remains in the lowest position with the safety wheels engaged, call light within reach, side rails up x3 and bed alarm activated. Will continue plan of care. Will continue to monitor.
[2020-05-21] MEDS: NovoLOG Insulin Flexpen SUBQ SCH ×6 (00:38→19:56)
[2020-05-21] MEDS: Meropenem 1 GM in NS 55 ML IVPB SCH ×2 (02:00→13:33)
--- NOTE | 2020-05-21 02:00 | NUR ---
NURSE NOTES: Bedside assessment performed, VS obtained and remain stable at this time while on 4mcg/min with no adverse effects noted. Respiratory status remains stable while on SIMV. Cooling measures will continue. Pt remains clean and dry. Pt repositioned for safety and comfort. Fall, Aspiration and Skin precautions observed. Pt remains resting in bed; Bed remains in the lowest position with the safety wheels engaged, call light within reach, side rails up x3 and bed alarm activated. Will continue plan of care. Will continue to monitor.
--- NOTE | 2020-05-21 04:00 | NUR ---
NURSE NOTES: Bedside assessment performed; patient had large formed BM. Patient was provided sponge bath. VS obtained and remain stable at this time while on 4mcg/min Levophed with no adverse effects noted. Respiratory status remains stable while on SIMV. Cooling measures will continue. Pt remains clean and dry. Pt repositioned for safety and comfort. Fall, Aspiration and Skin precautions observed. Pt remains resting in bed; Bed remains in the lowest position with the safety wheels engaged, call light within reach, side rails up x3 and bed alarm activated. Will continue plan of care. Will continue to monitor.
[2020-05-21 05:46] LABS: HEMATOCRIT 29.4 % (37.0-47.0); HEMOGLOBIN 9.9 G/DL (12.0-16.0); MEAN CORPUSCULAR VOLUME 91 FL (80-99); PLATELET COUNT 160 K/UL (150-450); RED BLOOD COUNT 3.22 M/UL (4.20-5.40); RED CELL DISTRIBUTION WIDTH 12.8 % (11.6-14.8); WHITE BLOOD COUNT 16.9 K/UL (4.8-10.8)
[2020-05-21 06:00] LABS: CALCIUM 8.6 MG/DL (8.5-10.1); POTASSIUM 4.3 MMOL/L (3.5-5.1)
--- NOTE | 2020-05-21 06:00 | NUR ---
NURSE NOTES: Bedside assessment performed; attempted to titrate pressors down overnight however patient becomes hypotensive with slight pressor titration; current gtt rate seems to be where patients optimum blood pressure parameters seems to be best at this time. Repositioned and suctioned patient. ETT achorfast replaced. NAD at this time, Remains on SIMV at 50% FIO2 and PS of 12.
--- NOTE | 2020-05-21 06:54 | Pulmonology Progress Note ---
Subjective ROS Limited/Unobtainable: Yes Interval Events: Remains intubated; on levophed Constitutional: Reports: no symptoms HEENT: Repors: no symptoms Respiratory: Reports: no symptoms Cardiovascular: Reports: no symptoms Gastrointestinal/Abdominal: Reports: no symptoms Genitourinary: Reports: no symptoms Allergies: Coded Allergies: DIVALPROEX SODIUM (Verified Allergy, Unknown, 05/14/20) PENICILLINS (Verified Allergy, Unknown, 05/14/20) All Systems: reviewed and negative except above Objective Last 24 Hour Vital Signs Date Time Temp Pulse Resp B/P (MAP) Pulse Ox O2 Delivery O2 Flow Rate FiO2 05/21/20 06:34 70 14 05/21/20 06:00 110/36 05/21/20 06:00 70 15 110/58 (75) 100 05/21/20 05:30 70 14 107/56 (73) 100 05/21/20 05:00 91/53 05/21/20 05:00 70 15 91/53 (66) 97 05/21/20 04:30 73 14 99/60 (73) 100 05/21/20 04:00 71 05/21/20 04:00 99.4 76 18 83/46 (58) 87 05/21/20 04:00 Mechanical Ventilator 05/21/20 04:00 83/46 05/21/20 04:00 50 05/21/20 03:30 77 13 103/55 (71) 100 05/21/20 03:00 111/60 05/21/20 03:00 75 13 111/66 (81) 100 05/21/20 02:57 75 15 40 05/21/20 02:30 74 14 106/60 (75) 100 05/21/20 02:00 98/59 05/21/20 02:00 75 14 98/59 (72) 100 05/21/20 01:30 75 12 91/59 (70) 100 05/21/20 01:00 96/56 05/21/20 01:00 76 18 96/56 (69) 100 05/21/20 00:30 77 22 100/49 (66) 93 05/21/20 00:00 40 05/21/20 00:00 87 05/21/20 00:00 Mechanical Ventilator 05/21/20 00:00 102/55 05/21/20 00:00 99.8 80 15 102/55 (71) 99 05/20/20 23:30 82 15 94/55 (68) 99 05/20/20 23:00 96/56 05/20/20 23:00 82 19 96/56 (69) 99 05/20/20 22:43 81 24 40 05/20/20 22:30 82 18 97/58 (71) 100 05/20/20 22:00 92/58 05/20/20 22:00 99.5 83 16 92/58 (69) 100 05/20/20 21:30 81 13 99/62 (74) 100 05/20/20 21:00 82 15 90/59 (69) 100 05/20/20 21:00 91/59 05/20/20 20:30 84 14 92/56 (68) 100 05/20/20 20:00 82 05/20/20 20:00 100.5 84 16 101/54 (70) 100 05/20/20 20:00 101/54 05/20/20 20:00 Mechanical Ventilator 05/20/20 20:00 40 05/20/20 19:30 83 13 91/58 (69) 100 05/20/20 19:05 85 12 30 05/20/20 19:00 85 13 96/57 (70) 100 05/20/20 19:00 96/57 05/20/20 18:00 95/56 05/20/20 18:00 88 14 95/56 (69) 100 05/20/20 17:45 89 13 104/63 (77) 100 05/20/20 17:30 89 15 103/67 (79) 100 05/20/20 17:15 87 13 112/68 (83) 100 05/20/20 17:02 85 12 30 05/20/20 17:00 99/63 05/20/20 17:00 85 16 99/63 (75) 99 05/20/20 16:59 40 05/20/20 16:45 88 18 103/63 (76) 99 05/20/20 16:30 88 19 109/65 (80) 99 05/20/20 16:15 90 20 101/63 (76) 99 05/20/20 16:00 30 05/20/20 16:00 90 05/20/20 16:00 Mechanical Ventilator 05/20/20 16:00 108/63 05/20/20 16:00 98.2 90 20 108/63 (78) 99 05/20/20 15:45 91 19 102/62 (75) 99 05/20/20 15:30 89 16 107/67 (80) 100 05/20/20 15:16 89 18 30 05/20/20 15:15 87 25 91/58 (69) 99 05/20/20 15:00 90/54 05/20/20 15:00 84 25 90/54 (66) 99 05/20/20 14:45 85 20 90/57 (68) 99 05/20/20 14:30 85 20 90/57 (68) 99 05/20/20 14:00 84 20 93/56 (68) 99 05/20/20 14:00 93/56 05/20/20 13:30 85 18 108/62 (77) 99 05/20/20 13:00 86 21 102/48 (66) 98 05/20/20 13:00 102/48 05/20/20 12:30 86 17 96/53 (67) 98 05/20/20 12:25 30 05/20/20 12:23 30 05/20/20 12:00 98.8 85 17 101/54 (70) 99 05/20/20 12:00 Mechanical Ventilator 05/20/20 12:00 101/54 05/20/20 12:00 40 05/20/20 12:00 84 05/20/20 11:30 84 15 102/57 (72) 99 05/20/20 11:09 84 20 40 40 05/20/20 11:05 40 05/20/20 11:00 84 14 102/60 (74) 99 05/20/20 11:00 102/60 05/20/20 10:30 81 14 95/56 (69) 99 05/20/20 10:00 97/58 05/20/20 10:00 79 14 97/58 (71) 99 05/20/20 09:30 76 15 98/56 (70) 99 05/20/20 09:00 94/53 05/20/20 09:00 76 14 94/53 (67) 100 05/20/20 08:30 76 14 98/60 (73) 100 05/20/20 08:00 73 05/20/20 08:00 100/55 05/20/20 08:00 98.2 72 13 100/55 (70) 100 05/20/20 08:00 40 05/20/20 08:00 Mechanical Ventilator 05/20/20 07:30 73 13 114/55 (74) 100 05/20/20 07:15 73 14 40 05/20/20 07:00 94/61 05/20/20 07:00 74 13 94/61 (72) 100 Intake and Output 05/20/20 05/21/20 19:00 07:00 Intake Total 2062.64 ml 1918.75 ml Output Total 1150 ml 410 ml Balance 912.64 ml 1508.75 ml Free Water 295 ml 300 ml IV Total 1047.64 ml 958.75 ml Tube Feeding 720 ml 660 ml Output Urine Total 1150 ml 410 ml # Bowel Movements 2 General Appearance: no acute distress HEENT: normocephalic Respiratory: chest wall non-tender, lungs clear Cardiovascular: normal peripheral pulses, normal rate Abdomen: normal bowel sounds Microbiology Date/Time Source Procedure Growth Status 05/20/20 04:00 Rectum Received Laboratory Tests 05/20/20 12:10: Arterial Blood pH 7.456H, Arterial Blood Partial Pressure CO2 30.2L, Arterial Blood Partial Pressure O2 119.6H, Arterial Blood HCO3 20.8L, Arterial Blood Oxygen Saturation 98.6, Arterial Blood Base Excess -2.3L, Anthony Test Positive 05/21/20 04:00: White Blood Count 16.9H, Red Blood Count 3.22L, Hemoglobin 9.9L, Hematocrit 29.4L, Mean Corpuscular Volume 91, Mean Corpuscular Hemoglobin 30.8, Mean Corpuscular Hemoglobin Concent 33.8, Red Cell Distribution Width 12.8, Platelet Count 160#, Mean Platelet Volume 9.8, Neutrophils (%) (Auto) , Lymphocytes (%) ( Auto) , Monocytes (%) (Auto) , Eosinophils (%) (Auto) , Basophils (%) (Auto) , Neutrophils % (Manual) [Pending], Lymphocytes % (Manual) [Pending], Platelet Estimate [Pending], Platelet Morphology [Pending], Sodium Level 145, Potassium Level 4.3, Chloride Level 113H, Carbon Dioxide Level 24, Anion Gap 8, Blood Urea Nitrogen 50H, Creatinine 1.0, Estimat Glomerular Filtration Rate 54.7, Glucose Level 165H, Calcium Level 8.6 Current Medications Medications (Trade) Dose Ordered Sig/Morgan Route PRN Reason Start Time Stop Time Status Last Admin Dose Admin Acetaminophen (Tylenol) 650 mg Q4H PRN GT Temp >100.5 05/16/20 06:15 06/15/20 06:14 05/19/20 19:49 Acetaminophen (Tylenol) 650 mg Q4H PRN RECTAL Temp >100.5 05/16/20 19:45 06/15/20 19:44 05/17/20 18:30 Chlorhexidine Gluconate (Lilliam-Hex 2%) 1 applic DAILY@2000 TOPIC 05/15/20 20:00 08/13/20 19:59 05/20/20 21:12 Dexamethasone Sodium Phosphate (Decadron 10mg/ ml Inj) 6 mg DAILY IV 05/16/20 09:00 05/24/20 08:59 05/20/20 09:06 Dextrose (Dextrose 50%) 25 ml Q30M PRN IV Hypoglycemia 05/15/20 18:00 08/13/20 17:59 Dextrose (Dextrose 50%) 50 ml Q30M PRN IV Hypoglycemia 05/15/20 18:00 08/13/20 17:59 Insulin Aspart (NovoLOG) Q4HR SUBQ 05/15/20 21:00 08/13/20 20:59 05/21/20 04:07 Meropenem 1 gm/ Sodium Chloride 55 ml @ 110 mls/hr Q12HR@0200,1400 IVPB 05/17/20 14:00 05/22/20 13:59 05/21/20 02:00 Morphine Sulfate (Morphine Sulfate) 2 mg EVERY 3 HOURS PRN IVP Moderate Pain (Pain Scale 4-6) 05/14/20 20:15 05/21/20 20:14 05/20/20 02:39 Morphine Sulfate (Morphine Sulfate) 4 mg EVERY 3 HOURS PRN IVP Severe Pain (Pain Scale 7-10) 05/14/20 20:15 05/21/20 20:14 05/20/20 21:12 Norepinephrine Bitartrate 8 mg/ Dextrose 250 ml @ 0 mls/hr Q24H IV 05/20/20 18:00 06/19/20 17:59 05/20/20 18:00 Pantoprazole (Protonix) 40 mg DAILY IV 05/15/20 09:00 06/14/20 08:59 05/20/20 09:06 Phenylephrine HCl 100 mg/Dextrose 250 ml @ 0 mls/hr Q24H IV 05/15/20 00:15 06/14/20 00:14 05/15/20 13:28 Sodium Chloride 1,000 ml @ 75 mls/hr [id number] IV 05/15/20 06:45 06/14/20 06:44 05/21/20 04:08 Vasopressin 100 units/Sodium Chloride 100 ml @ 0 mls/hr Q24H IV 05/15/20 00:15 06/14/20 00:14 Zinc Oxide (Zinc Oxide) 1 applic TIDPRN PRN TOPIC Abdominal cramps 05/20/20 13:00 08/18/20 12:59 Assessment/Plan Assessment/Plan IMPRESSION: 1. Acute respiratory failure. 2. Diabetes mellitus with hyperglycemia. 3. Septic shock. 4. Chronic G-tube. 5. Decubitus. 6. History of CHF. DISCUSSION: Continue fluids and antibiotics. Pressors. Continue AC mode till stable. Weaned well yesterday On 40% FiO2 DVT and GI prophylaxis. Respiratory precautions due to COVID-[address] Wade. I will follow carefully. Decadron continuing On pressors ABG better Richard James Omar Syed MD May 21, 2020 06:53
--- NOTE | 2020-05-21 07:03 | NUR ---
HAND-OFF: Report given to Cinda RUIZ.
--- NOTE | 2020-05-21 07:40 | NUR ---
NURSE NOTES: late entry: RECEIVED REPORT FROM CLAUDIA Duff PT OBTUNDED. PUPILS SLUGGISH 3MM. NONVERBAL. SR ON MONITOR. BP STABLE ON PRESSORS, LEVOPHED AT 4MCG/MIN. CONTINUE TO TITRATE DOWN TOLERATED. PT INTUBATED. ETTUBE 7.5, 23CM AT LIP. VENT SETTINGS SIMV 8, PS 12, FI02 50%. RR WNL. NO RESPIRATORY DISTRESS NOTED. LUNG SOUNDS DIMINISHED BILATERAL, RHONCHI. SECRETIONS SCANT, WHITE. ORAL CARE PROVIDED. AX TEMP 99.1. PT ON TUBE FEEDING VIA RT NARES NGT, GTUBE NON FUNCTIONAL, WILL BE REPLACED BY GI WHEN STABLE. TUBE FEEDING GLUCERNA 1.2, RUNNING AT 60ML/HR. NO RESIDUAL. LAST BM 05/21. NO BM AT THTIS TIME. ABDOMEN SOFT, NON TENDER. BOWEL SOUNDS HYPOACTIVE ALL QUADRANTS. URINE OUTPUT 35ML/HR, STRAW COLOR. DRAINING BELOW BLADDER AND SECURE. ACCU CHK Q6HR. SKIN- SEE ASSESSMENT. NON PITTING EDEMA OF HANDS. BILATERAL RADIAL AND PEDAL PULSES WEAK. CAP REFILL <3SEC. NO JVD. LEFT WRIST, SOFT RESTRAINT IN PLACE. CIRCULATION AND COMFORT CHECK COMPLETED. PT IN AIRBORNE/CONTACT ISOLATION. BED LOCKED, IN LOW POSITION. SIDE RAILS X2, CHUN ALARM ON. WILL CONTINUE TO MONITOR PT.
--- NOTE | 2020-05-21 07:41 | NUR ---
RESPIRATORY NOTES: Patient tolerated weaning trial well. Placed on SPON PS +8 PEEP +5 FIO2 40%. RSBI 56, HR 74, SPO2 100%, SPON VT 456, SPON RR 25. Will continue to monitor.
--- NOTE | 2020-05-21 08:59 | Diagnostic Imaging Report ---
EXAM: XR Chest, 1 View CLINICAL HISTORY: ABN CHST TECHNIQUE: Frontal view of the chest. COMPARISON: Chest x-rays dated on 05/19/20 FINDINGS: Lungs: Unchanged retrocardiac/left lung base consolidation. Remainder the lungs appear clear. Pleural space: Persistent small left pleural effusion. The right costophrenic angle are sharp. No visible pneumothorax. Heart: Unremarkable. No cardiomegaly. Mediastinum: Unremarkable. Bones/joints: Degenerative changes seen in bilateral shoulder joints. Tubes, lines and devices: Endotracheal tube tip 3.2 cm above the awa. Telemetry leads overlie the thorax. NG tube tip extends below the diaphragm and its tip is excluded from view. Right IJ central venous catheter with the tip in the right atrium. IMPRESSION: No significant interval change compared to the chest x-ray from 05/19/20. Mild left pleural effusion. Left lung base/retrocardiac consolidation which may represent atelectasis versus pneumonia.
[2020-05-21] MEDS: Pantoprazole Inj IV SCH (09:08)
[2020-05-21] MEDS: dexAMETHasone 10mg/ml Inj IV SCH (09:09)
--- NOTE | 2020-05-21 10:02 | General Progress Note ---
Assessment/Plan Status: unchanged Assessment/Plan: 70-year-old female history of dementia, cachexia, dysphasia G-tube dependent feeding presents for evaluation of rapid heart rate and hypotension. # Septic with element of cardiogenic shock Etiology COVID 19 vs UTI vs bacteremia and NSTEMI Bcx POSITIVE WITH G+ Cocci and U cx 05/14 Proteus Mirabillis Continue Vancomycin DAY 7, Meropenem DAY 5 stopped Cefepime Dexamethasone due to hypoxia # 6 Leukocytosis today most likely due to steroids improving # Acute respiratory failure Intubated and not ready to wean off ICU care appreciated Dr. Enriquez consulted Serial CXR is stable today and ventilator management per ICU-pulmonary FiO2 40 % today. wean as tolerated started today. # SVT vs A. Flutter s/p DC x 3 # NSTEMI HR is controlled in the 100 range and tolerating Digoxin Vasopressors in place Levophed at [address] Morillo requested and TTE requested and poor window. Will need repeat TTE when able to safely complete. Limited due to covid positive Troponin 3.4 now 0.7 EKG 05/17 NSR # AG metabolic acidosis Ddx lactic acidosis Improving. # Hyperglycemia r/o DKA ABG and Ketones ordered Endocrine consult with Dr. Shelley IV insulin gtt stopped last night and in SQ insulin coverage now # Hypernatremia Improving Monitor BMP IVF to 1/2 NS lower rate 75 cc hr continue # COVID 19 Positive on admission. Original infection > 15 days ago, do not qualify for Revdisimir or plasma Added Dexamethasone Contact and droplet isolation # Dysphagia PEG REMOVED 05/16 Carlo Vargas consulted and appreciate follow up and final plan for PEG replacement PENDING. PEG site with dressing in place and OFF PEG for now. NGT placed and Tube feeds started 05/18 # Thrombocytopenia Platelets down from 80 K to 64 K to 66 K ( OFF Heparin ) and UP to 84 K and now 160 K 05/17 dc heparin, use SCD, order US Liver, HIT Ab, HIV negative US legs to r.o dvt per OM policy # Hypokalemia Improved # Dementia Baseline # FULL CODE SW follow up to reach out to DPOA and consider change in code status due to high morbidity and risk of inpatient mortality. > 55 min spent in coordination of care and consultation with physicians and RN. Subjective Date patient seen: May 21, 2020 Time patient seen: 09:30 ROS Limited/Unobtainable: Yes Allergies: Coded Allergies: DIVALPROEX SODIUM (Verified Allergy, Unknown, 05/14/20) PENICILLINS (Verified Allergy, Unknown, 05/14/20) All Systems: reviewed and negative except above Subjective Non verbal, intubated Objective Last 24 Hour Vital Signs Date Time Temp Pulse Resp B/P (MAP) Pulse Ox O2 Delivery O2 Flow Rate FiO2 05/21/20 09:00 79 19 111/63 (79) 100 05/21/20 08:00 80 05/21/20 08:00 40 05/21/20 08:00 76 19 107/60 (76) 100 05/21/20 07:45 100 05/21/20 07:41 40 05/21/20 07:25 75 16 40 30 05/21/20 07:00 72 14 109/59 (76) 100 05/21/20 06:34 70 14 05/21/20 06:30 70 14 103/56 (72) 100 05/21/20 06:00 110/36 05/21/20 06:00 70 15 110/58 (75) 100 05/21/20 05:30 70 14 107/56 (73) 100 05/21/20 05:00 91/53 05/21/20 05:00 70 15 91/53 (66) 97 05/21/20 04:30 73 14 99/60 (73) 100 05/21/20 04:00 71 05/21/20 04:00 99.4 76 18 83/46 (58) 87 05/21/20 04:00 Mechanical Ventilator 05/21/20 04:00 83/46 05/21/20 04:00 50 05/21/20 03:30 77 13 103/55 (71) 100 05/21/20 03:00 111/60 05/21/20 03:00 75 13 111/66 (81) 100 05/21/20 02:57 75 15 40 05/21/20 02:30 74 14 106/60 (75) 100 05/21/20 02:00 98/59 05/21/20 02:00 75 14 98/59 (72) 100 05/21/20 01:30 75 12 91/59 (70) 100 05/21/20 01:00 96/56 05/21/20 01:00 76 18 96/56 (69) 100 05/21/20 00:30 77 22 100/49 (66) 93 05/21/20 00:00 40 05/21/20 00:00 87 05/21/20 00:00 Mechanical Ventilator 05/21/20 00:00 102/55 05/21/20 00:00 99.8 80 15 102/55 (71) 99 05/20/20 23:30 82 15 94/55 (68) 99 05/20/20 23:00 96/56 05/20/20 23:00 82 19 96/56 (69) 99 05/20/20 22:43 81 24 40 05/20/20 22:30 82 18 97/58 (71) 100 05/20/20 22:00 92/58 05/20/20 22:00 99.5 83 16 92/58 (69) 100 05/20/20 21:30 81 13 99/62 (74) 100 05/20/20 21:00 82 15 90/59 (69) 100 05/20/20 21:00 91/59 05/20/20 20:30 84 14 92/56 (68) 100 05/20/20 20:00 82 05/20/20 20:00 100.5 84 16 101/54 (70) 100 05/20/20 20:00 101/54 05/20/20 20:00 Mechanical Ventilator 05/20/20 20:00 40 05/20/20 19:30 83 13 91/58 (69) 100 05/20/20 19:05 85 12 30 05/20/20 19:00 85 13 96/57 (70) 100 05/20/20 19:00 96/57 05/20/20 18:00 95/56 05/20/20 18:00 88 14 95/56 (69) 100 05/20/20 17:45 89 13 104/63 (77) 100 05/20/20 17:30 89 15 103/67 (79) 100 05/20/20 17:15 87 13 112/68 (83) 100 05/20/20 17:02 85 12 30 05/20/20 17:00 99/63 05/20/20 17:00 85 16 99/63 (75) 99 05/20/20 16:59 40 05/20/20 16:45 88 18 103/63 (76) 99 05/20/20 16:30 88 19 109/65 (80) 99 05/20/20 16:15 90 20 101/63 (76) 99 05/20/20 16:00 30 05/20/20 16:00 90 05/20/20 16:00 Mechanical Ventilator 05/20/20 16:00 108/63 05/20/20 16:00 98.2 90 20 108/63 (78) 99 05/20/20 15:45 91 19 102/62 (75) 99 05/20/20 15:30 89 16 107/67 (80) 100 05/20/20 15:16 89 18 30 05/20/20 15:15 87 25 91/58 (69) 99 05/20/20 15:00 90/54 05/20/20 15:00 84 25 90/54 (66) 99 05/20/20 14:45 85 20 90/57 (68) 99 05/20/20 14:30 85 20 90/57 (68) 99 05/20/20 14:00 84 20 93/56 (68) 99 05/20/20 14:00 93/56 05/20/20 13:30 85 18 108/62 (77) 99 05/20/20 13:00 86 21 102/48 (66) 98 05/20/20 13:00 102/48 05/20/20 12:30 86 17 96/53 (67) 98 05/20/20 12:25 30 05/20/20 12:23 30 05/20/20 12:00 98.8 85 17 101/54 (70) 99 05/20/20 12:00 Mechanical Ventilator 05/20/20 12:00 101/54 05/20/20 12:00 40 05/20/20 12:00 84 05/20/20 11:30 84 15 102/57 (72) 99 05/20/20 11:09 84 20 40 40 05/20/20 11:05 40 05/20/20 11:00 84 14 102/60 (74) 99 05/20/20 11:00 102/60 05/20/20 10:30 81 14 95/56 (69) 99 05/20/20 10:00 97/58 05/20/20 10:00 79 14 97/58 (71) 99 Intake and Output 05/20/20 05/21/20 19:00 07:00 Intake Total 2062.64 ml 2053.75 ml Output Total 1150 ml 440 ml Balance 912.64 ml 1613.75 ml Free Water 295 ml 300 ml IV Total 1047.64 ml 1033.75 ml Tube Feeding 720 ml 720 ml Output Urine Total 1150 ml 440 ml # Bowel Movements 2 Laboratory Tests 05/20/20 12:10: Arterial Blood pH 7.456H, Arterial Blood Partial Pressure CO2 30.2L, Arterial Blood Partial Pressure O2 119.6H, Arterial Blood HCO3 20.8L, Arterial Blood Oxygen Saturation 98.6, Arterial Blood Base Excess -2.3L, Anthony Test Positive 05/21/20 04:00: Arterial Blood pH 7.478H, Arterial Blood Partial Pressure CO2 28.0L, Arterial Blood Partial Pressure O2 136.5H, Arterial Blood HCO3 20.3L, Arterial Blood Oxygen Saturation 98.3, Arterial Blood Base Excess -2.4L, Anthony Test Positive, White Blood Count 16.9H, Red Blood Count 3.22L, Hemoglobin 9.9L, Hematocrit 29.4L, Mean Corpuscular Volume 91, Mean Corpuscular Hemoglobin 30.8, Mean Corpuscular Hemoglobin Concent 33.8, Red Cell Distribution Width 12.8, Platelet Count 160#, Mean Platelet Volume 9.8, Neutrophils (%) (Auto) , Lymphocytes (%) ( Auto) , Monocytes (%) (Auto) , Eosinophils (%) (Auto) , Basophils (%) (Auto) , Differential Total Cells Counted 100, Neutrophils % (Manual) 96H, Lymphocytes % (Manual) 3L, Monocytes % (Manual) 1, Eosinophils % (Manual) 0, Basophils % ( Manual) 0, Band Neutrophils 0, Platelet Estimate Adequate, Platelet Morphology Normal, Hypochromasia 2+, Anisocytosis 1+, Sodium Level 145, Potassium Level 4.3 , Chloride Level 113H, Carbon Dioxide Level 24, Anion Gap 8, Blood Urea Nitrogen 50H, Creatinine 1.0, Estimat Glomerular Filtration Rate 54.7, Glucose Level 165H, Calcium Level 8.6 Height (Feet): 5 Height (Inches): 4.00 Weight (Pounds): 149 General Appearance: WD/WN EENT: PERRL/EOMI Neck: non-tender Cardiovascular: normal rate Respiratory/Chest: decreased breath sounds Abdomen: soft Neurologic: other - sedated Jessica Wade MD May 21, 2020 10:02
--- NOTE | 2020-05-21 10:07 | NUR ---
NURSE NOTES: MD SMITH HERE TO SEE PT. WAS INFORMED OF LEVOPHED AT 4MCG. 1/2 NS AT 75ML. LABS: WBC 16.9, BUN 50. TEMP 99.1. NO CHANGE IN NEURO STATUS. NGT REMAINS UNTIL GT REPLACED. MD WILL PLACE OWN ORDERS.
--- NOTE | 2020-05-21 11:16 | NUR ---
RESPIRATORY NOTES: Weaning stopped at 1116. Placed back onto SIMV RR 8, VT 500, PS +12, PEEP +5, 40% FIO2.
--- NOTE | 2020-05-21 11:42 | NUR ---
RD ASSESSMENT & RECOMMENDATIONS SEE CARE ACTIVITY FOR COMPLETE ASSESSMENT DAILY ESTIMATED NEEDS: Needs based on Critical care, 57.8kh abw 22-30 kcals/kg 7126-8739 total kcals 1.2-2 g protein/kg 69-116 g total protein 25-30 mL/kg 1478-9582 total fluid mLs NUTRITION DIAGNOSIS: Swallowing difficulty r/t h/o CVA, dysphagia as evidenced by pt is GT dep, now intubated w/ resp distress. CURRENT TF:Glucerna 1.2@ 60ml/hr x24 hrs ENTERAL NUTRITION RECOMMENDATIONS: Glucerna 1.2 @ 60ml/hr x24 hrs to provide 1440ml, 1728 kcal, 86g pro, 1159ml free H2O -> With hemodynamic stability, maintain current TF @ goal. - Flush per MD. HOB over 30 degrees ADDITIONAL RECOMMENDATIONS: 1) Monitor hemodynamic stablity: NE titrating down, NE @ 4mcg 2) Obtain an accurate wt: per MD pt w/ 'cachexia' EMR wt: 117.8kg vs am wts: 67.6kg 3) Wound healing: TF provides 100% RDI add Vit C 250mg QD + Flavio BID 4) Monitor lytes, replete as needed 5) Monitor BGs closely w/ Decadron, need for additional hypoglycemics
--- NOTE | 2020-05-21 12:00 | NUR ---
NURSE NOTES: LATE ENTRY: PT OBTUNDED. PUPILS SLUGGISH 3MM. NONVERBAL. SR ON MONITOR. PT ON PRESSORS, LEVOPHED AT 3MCG/MIN. TITRATING TOLERATED. PT ETTUBE 7.5, 23CM AT LIP. TOLERATED WEANING THIS AM, BACK ON VENT SETTINGS SIMV 8, PS 12, FI02 50%. RR WNL. NO RESPIRATORY DISTRESS NOTED. SECRETIONS SCANT, WHITE. ORAL CARE PROVIDED. RT NARES NGT, TUBE FEEDING GLUCERNA 1.2, RUNNING AT 60ML/HR. NO RESIDUAL. NO BM. ABDOMEN SOFT, NON TENDER. BOWEL SOUNDS HYPOACTIVE. URINE STRAW COLOR. DEL TORO IN PLACE, DRAINING BELOW BLADDER AND SECURE. SKIN- SEE ASSESSMENT. NON PITTING EDEMA OF HANDS. BILATERAL RADIAL AND PEDAL PULSES WEAK. LEFT WRIST, SOFT RESTRAINT IN PLACE. CIRCULATION AND COMFORT CHECK COMPLETED. PT IN AIRBORNE/CONTACT ISOLATION. BED LOCKED, IN LOW POSITION. SIDE RAILS X2, BED ALARM ON. WILL CONTINUE TO MONITOR PT.
--- NOTE | 2020-05-21 12:42 | Surgery Progress Note ---
Surgery Progress Note Subjective Additional Comments leukocytosis US noted exam stable on vent support tolerating tf Objective Last 24 Hour Vital Signs Date Time Temp Pulse Resp B/P (MAP) Pulse Ox O2 Delivery O2 Flow Rate FiO2 05/21/20 12:00 78 05/21/20 11:30 78 12 94/48 (63) 100 05/21/20 11:16 78 24 40 05/21/20 11:00 77 20 98/53 (68) 100 05/21/20 10:00 99.1 79 21 98/48 (65) 100 05/21/20 09:00 79 19 111/63 (79) 100 05/21/20 08:00 80 05/21/20 08:00 40 05/21/20 08:00 Mechanical Ventilator 05/21/20 08:00 76 19 107/60 (76) 100 05/21/20 07:45 100 05/21/20 07:41 40 05/21/20 07:25 75 16 40 30 05/21/20 07:00 72 14 109/59 (76) 100 05/21/20 06:34 70 14 05/21/20 06:30 70 14 103/56 (72) 100 05/21/20 06:00 110/36 05/21/20 06:00 70 15 110/58 (75) 100 05/21/20 05:30 70 14 107/56 (73) 100 05/21/20 05:00 91/53 05/21/20 05:00 70 15 91/53 (66) 97 05/21/20 04:30 73 14 99/60 (73) 100 05/21/20 04:00 71 05/21/20 04:00 99.4 76 18 83/46 (58) 87 05/21/20 04:00 Mechanical Ventilator 05/21/20 04:00 83/46 05/21/20 04:00 50 05/21/20 03:30 77 13 103/55 (71) 100 05/21/20 03:00 111/60 05/21/20 03:00 75 13 111/66 (81) 100 05/21/20 02:57 75 15 40 05/21/20 02:30 74 14 106/60 (75) 100 05/21/20 02:00 98/59 05/21/20 02:00 75 14 98/59 (72) 100 05/21/20 01:30 75 12 91/59 (70) 100 05/21/20 01:00 96/56 05/21/20 01:00 76 18 96/56 (69) 100 05/21/20 00:30 77 22 100/49 (66) 93 05/21/20 00:00 40 05/21/20 00:00 87 05/21/20 00:00 Mechanical Ventilator 05/21/20 00:00 102/55 05/21/20 00:00 99.8 80 15 102/55 (71) 99 05/20/20 23:30 82 15 94/55 (68) 99 05/20/20 23:00 96/56 05/20/20 23:00 82 19 96/56 (69) 99 05/20/20 22:43 81 24 40 05/20/20 22:30 82 18 97/58 (71) 100 05/20/20 22:00 92/58 05/20/20 22:00 99.5 83 16 92/58 (69) 100 05/20/20 21:30 81 13 99/62 (74) 100 05/20/20 21:00 82 15 90/59 (69) 100 05/20/20 21:00 91/59 05/20/20 20:30 84 14 92/56 (68) 100 05/20/20 20:00 82 05/20/20 20:00 100.5 84 16 101/54 (70) 100 05/20/20 20:00 101/54 05/20/20 20:00 Mechanical Ventilator 05/20/20 20:00 40 05/20/20 19:30 83 13 91/58 (69) 100 05/20/20 19:05 85 12 30 05/20/20 19:00 85 13 96/57 (70) 100 05/20/20 19:00 96/57 05/20/20 18:00 95/56 05/20/20 18:00 88 14 95/56 (69) 100 05/20/20 17:45 89 13 104/63 (77) 100 05/20/20 17:30 89 15 103/67 (79) 100 05/20/20 17:15 87 13 112/68 (83) 100 05/20/20 17:02 85 12 30 9/11/20 17:00 99/63 05/20/20 17:00 85 16 99/63 (75) 99 05/20/20 16:59 40 05/20/20 16:45 88 18 103/63 (76) 99 05/20/20 16:30 88 19 109/65 (80) 99 05/20/20 16:15 90 20 101/63 (76) 99 05/20/20 16:00 30 05/20/20 16:00 90 05/20/20 16:00 Mechanical Ventilator 05/20/20 16:00 108/63 05/20/20 16:00 98.2 90 20 108/63 (78) 99 05/20/20 15:45 91 19 102/62 (75) 99 05/20/20 15:30 89 16 107/67 (80) 100 05/20/20 15:16 89 18 30 05/20/20 15:15 87 25 91/58 (69) 99 05/20/20 15:00 90/54 05/20/20 15:00 84 25 90/54 (66) 99 05/20/20 14:45 85 20 90/57 (68) 99 05/20/20 14:30 85 20 90/57 (68) 99 05/20/20 14:00 84 20 93/56 (68) 99 05/20/20 14:00 93/56 05/20/20 13:30 85 18 108/62 (77) 99 05/20/20 13:00 86 21 102/48 (66) 98 05/20/20 13:00 102/48 I&O Intake and Output 05/20/20 05/21/20 19:00 07:00 Intake Total 2062.64 ml 2061.25 ml Output Total 1150 ml 440 ml Balance 912.64 ml 1621.25 ml Free Water 295 ml 300 ml IV Total 1047.64 ml 1041.25 ml Tube Feeding 720 ml 720 ml Output Urine Total 1150 ml 440 ml # Bowel Movements 2 Dressing: other Wound: other Cardiovascular: RSR Respiratory: decreased breath sounds Abdomen: soft, non-tender, present bowel sounds Extremities: no tenderness, no cyanosis Laboratory Tests Test 05/21/20 04:00 05/21/20 09:40 White Blood Count 16.9 K/UL (4.8-10.8) H Red Blood Count 3.22 M/UL (4.20-5.40) L Hemoglobin 9.9 G/DL (12.0-16.0) L Hematocrit 29.4 % (37.0-47.0) L Mean Corpuscular Volume 91 FL (80-99) Mean Corpuscular Hemoglobin 30.8 PG (27.0-31.0) Mean Corpuscular Hemoglobin Concent 33.8 G/DL (32.0-36.0) Red Cell Distribution Width 12.8 % (11.6-14.8) Platelet Count 160 K/UL (150-450) # Mean Platelet Volume 9.8 FL (6.5-10.1) Neutrophils (%) (Auto) % (45.0-75.0) Lymphocytes (%) (Auto) % (20.0-45.0) Monocytes (%) (Auto) % (1.0-10.0) Eosinophils (%) (Auto) % (0.0-3.0) Basophils (%) (Auto) % (0.0-2.0) Differential Total Cells Counted 100 Neutrophils % (Manual) 96 % (45-75) H Lymphocytes % (Manual) 3 % (20-45) L Monocytes % (Manual) 1 % (1-10) Eosinophils % (Manual) 0 % (0-3) Basophils % (Manual) 0 % (0-2) Band Neutrophils 0 % (0-8) Platelet Estimate Adequate Platelet Morphology Normal Hypochromasia 2+ Anisocytosis 1+ Arterial Blood pH 7.478 (7.350-7.450) Arterial Blood Partial Pressure CO2 28.0 mmHg (35.0-45.0) L Arterial Blood Partial Pressure O2 136.5 mmHg (75.0-100.0) H Arterial Blood HCO3 20.3 mmol/L (22.0-26.0) L Arterial Blood Oxygen Saturation 98.3 % (95-100) Arterial Blood Base Excess -2.4 (-2-2) L Anthony Test Positive Sodium Level 145 MMOL/L (136-145) Potassium Level 4.3 MMOL/L (3.5-5.1) Chloride Level 113 MMOL/L (98-107) H Carbon Dioxide Level 24 MMOL/L (21-32) Anion Gap 8 mmol/L (5-15) Blood Urea Nitrogen 50 mg/dL (7-18) H Creatinine 1.0 MG/DL (0.55-1.30) Estimat Glomerular Filtration Rate 54.7 mL/min (>60) Glucose Level 165 MG/DL (74-106) H Calcium Level 8.6 MG/DL (8.5-10.1) POC Whole Blood Glucose Pending Plan Problems: (1) Hypernatremia (2) Renal failure (3) Respiratory failure (4) Sepsis Assessment & Plan: COVID + leukocytosis anemia electrolytes abnormal on iv fluids renal input appreciated cxr noted abx as per ID will follow with recs Interim placement of orogastric tube, also documented on recent abdominal radiograph. Stable satisfactory position of endotracheal tube and right jugular central venous catheter. There is increased pleural fluid and likely left basilar consolidation/atelectasis. The right lung and pleural space remain clear. Impression: Increasing left pleural fluid and likely basilar consolidation/atelectasis. Interim orogastric intubation DAILY ESTIMATED NEEDS: Needs based on Pulmonary, DM, wounds 66.6kg 25-30 kcals/kg 3999-9001 total kcals 1.25-1.5 g protein/kg 83-100 g total protein 20-25 mL/kg 9534-8247 total fluid mLs NUTRITION DIAGNOSIS: Swallowing difficulty r/t dysphagia as evidenced by h/o CVA, pt is GT dep, currently ICU status, now intubated, off pressor support, GT feeds initiated. CURRENT TF:Glucerna 1.2 @45ml/hr ENTERAL NUTRITION RECOMMENDATIONS: As medically able: GLUCERNA 1.5 goal of 45ml/hr x24 hrs to provide 1080ml, 1620 kcal, 89g pro, 820ml free H2O -> as medically able without aspiration risk start Glucerna 1.5 @low rate 25ml/hr for 6 hrs. Advance as tolerated 10ml/hr q4-6 hrs to goal. - Flush per MD, HOB over 30 degrees. ---- If not hemodynamically stable, rec trophic feeds of 5-10ml/hr to maintain gut integrity. ADDITIONAL RECOMMENDATIONS: 1) Obtain an accurate calibrated bed scale wt 2) F/up w/ H&P 3) With active TF orders, add JASMYN BID for noted DTPI wounds 4) TF recs as above when off bipap and w/ hemodynamic stability -> Now intubated, off pressors, on GT feeds. he spleen size is normal. The gallbladder contains sludge. No stones. No wall thickening nor pericholecystic fluid. Common bile duct measures 4 mm in diameter. Small amount free fluid is seen adjacent to the liver and spleen Impression: Gallbladder sludge. Negative for dilated bile ducts Normal appearing liver and spleen (5) Elevated d-dimer (6) COVID-19 Assessment & Plan: ++ (7) Pressure ulcer Assessment & Plan: Pt presented on admission with multiple Pressure injuries.DTPI noted to R Buttocks (L)3.8cm x (W)3.4cm. Base of wound is purpuric ,fluctuant with surrounding maroon and indurated borders. DTPI Upper L Buttocks(L)5.5cm x (W)4cm. Base of wound is maroon and indurated. Borders are irregular. Non-Blanchable erythema without induration/fluctuance L lower buttocks(L)4cm x ( W)7cm. R and L heels are soft but blanchable. Erosion noted at peristomal GT site. Site is erythematous and excoriated. Small amt. sanguineous exudate. Tx.Plan: Apply Moisture Barrier Paste to Sacrum, R and L Buttocks. Cover each area with Optifoam drsg. Change every 3 days and prn. Apply Moisture Barrier Paste to R and L Ischial tuberosities with each incontinence care. Apply Cavilon Skin Barrier to both heels. Cover each heel and malleoli with Optifoam drsg. Change every 7 days and prn. Reposition at least every 2hours or as tolerated. Off-load heels with pillow. APM/DARIN Mattress overlay. Apply Zinc Oxide Paste TID to GT site. Leave open to Air. 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
[2020-05-21] MEDS: Acetaminophen 650mg/20.3ml GT PRN ×2 (13:33→20:01)
--- NOTE | 2020-05-21 14:39 | Infectious Diseases Prog Note ---
Assessment/Plan 70 yo female with PMHx of Dementia, DM, CVA ( S/P PEG), COVID 19 infection and pressure ulcers. Septic Shock-combination cardiogenic and septic; pressors requirements improving Gram positive bacteremia- contaminant -05/14 Bcx 1/ S. haemolyticus; 05/17 Bcx NTD UTI UA (+); ucx 10-20k P. mirabilis (S Ceftriaxone, Cefepime) PNA, superimposed bacterial -05/19 CXR: Increasing left pleural fluid and likely basilar consolidation/ atelectasis. Interim orogastric intubation 05/16 CXR: Retrocardiac density may represent atelectasis versus infiltrate. CXR 05/14/20 showed Retrocardiac atelectasis/infiltrate with Pulmonary venous congestion. sp cx MDR E.coli (S Cefepime, Meropenem, Zosyn) Hx of COVID 19 - Bacteria secondary infection? Asp PNA? COVID 19 tested Pos OSF - about 3 week PRODUCT MGR -still positive Rapid COVID PCR 05/14 Resp Fail Intuabted on Vent Leukocytosis; increasing (on steroids) Fever; ongoing EMA, SP SVT -sp cardioversion Hyperglycemia Elevated LFTs -Abd US: Gallbladder sludge. Negative for dilated bile ducts. Normal appearing liver and spleen. Trace ascites Dementia DM Hx CVA ( S/P PEG) pressure ulcers PLAN - Meropenem #5 (abx d #04/18) - On Decadron #8 per pulm -05/19 SP IV Vancomcyin #6 -05/17 SP Cefepime #4 - f/u Cultures - Monitor CBC and Temps -f/u repeat Bcx x2 -out of the window for Remdesivir- doubt beneficial at this point and shock more bacterial related Thank you for consulting [facility]. Will continue to follow along with you. Discussed with RN. Subjective Allergies: Coded Allergies: DIVALPROEX SODIUM (Verified Allergy, Unknown, 05/14/20) PENICILLINS (Verified Allergy, Unknown, 05/14/20) Tm 100.8 FIo2 up to 50% wbc increased (on steroids) repeat Bcx NTD levo down to 3 Objective Last 24 Hour Vital Signs Date Time Temp Pulse Resp B/P (MAP) Pulse Ox O2 Delivery O2 Flow Rate FiO2 05/21/20 13:00 75 13 99/51 (67) 100 05/21/20 12:30 79 12 94/48 (63) 100 05/21/20 12:15 79 15 99/58 (72) 100 05/21/20 12:00 50 05/21/20 12:00 98.9 80 14 103/52 (69) 100 05/21/20 12:00 Mechanical Ventilator 05/21/20 12:00 78 05/21/20 11:30 78 12 94/48 (63) 100 05/21/20 11:16 78 24 40 05/21/20 11:00 77 20 98/53 (68) 100 05/21/20 10:00 99.1 79 21 98/48 (65) 100 05/21/20 09:00 79 19 111/63 (79) 100 05/21/20 08:00 80 05/21/20 08:00 40 05/21/20 08:00 Mechanical Ventilator 05/21/20 08:00 76 19 107/60 (76) 100 05/21/20 07:45 100 05/21/20 07:41 40 05/21/20 07:25 75 16 40 30 05/21/20 07:00 72 14 109/59 (76) 100 05/21/20 06:34 70 14 05/21/20 06:30 70 14 103/56 (72) 100 05/21/20 06:00 110/36 05/21/20 06:00 70 15 110/58 (75) 100 05/21/20 05:30 70 14 107/56 (73) 100 05/21/20 05:00 91/53 05/21/20 05:00 70 15 91/53 (66) 97 05/21/20 04:30 73 14 99/60 (73) 100 05/21/20 04:00 71 05/21/20 04:00 99.4 76 18 83/46 (58) 87 05/21/20 04:00 Mechanical Ventilator 05/21/20 04:00 83/46 05/21/20 04:00 50 05/21/20 03:30 77 13 103/55 (71) 100 05/21/20 03:00 111/60 05/21/20 03:00 75 13 111/66 (81) 100 05/21/20 02:57 75 15 40 05/21/20 02:30 74 14 106/60 (75) 100 05/21/20 02:00 98/59 05/21/20 02:00 75 14 98/59 (72) 100 05/21/20 01:30 75 12 91/59 (70) 100 05/21/20 01:00 96/56 05/21/20 01:00 76 18 96/56 (69) 100 05/21/20 00:30 77 22 100/49 (66) 93 05/21/20 00:00 40 05/21/20 00:00 87 05/21/20 00:00 Mechanical Ventilator 05/21/20 00:00 102/55 05/21/20 00:00 99.8 80 15 102/55 (71) 99 05/20/20 23:30 82 15 94/55 (68) 99 05/20/20 23:00 96/56 05/20/20 23:00 82 19 96/56 (69) 99 05/20/20 22:43 81 24 40 05/20/20 22:30 82 18 97/58 (71) 100 05/20/20 22:00 92/58 05/20/20 22:00 99.5 83 16 92/58 (69) 100 05/20/20 21:30 81 13 99/62 (74) 100 05/20/20 21:00 82 15 90/59 (69) 100 05/20/20 21:00 91/59 05/20/20 20:30 84 14 92/56 (68) 100 05/20/20 20:00 82 05/20/20 20:00 100.5 84 16 101/54 (70) 100 05/20/20 20:00 101/54 05/20/20 20:00 Mechanical Ventilator 05/20/20 20:00 40 05/20/20 19:30 83 13 91/58 (69) 100 05/20/20 19:05 85 12 30 05/20/20 19:00 85 13 96/57 (70) 100 05/20/20 19:00 96/57 05/20/20 18:00 95/56 05/20/20 18:00 88 14 95/56 (69) 100 05/20/20 17:45 89 13 104/63 (77) 100 05/20/20 17:30 89 15 103/67 (79) 100 05/20/20 17:15 87 13 112/68 (83) 100 05/20/20 17:02 85 12 30 05/20/20 17:00 99/63 05/20/20 17:00 85 16 99/63 (75) 99 05/20/20 16:59 40 05/20/20 16:45 88 18 103/63 (76) 99 05/20/20 16:30 88 19 109/65 (80) 99 05/20/20 16:15 90 20 101/63 (76) 99 05/20/20 16:00 30 05/20/20 16:00 90 05/20/20 16:00 Mechanical Ventilator 05/20/20 16:00 108/63 05/20/20 16:00 98.2 90 20 108/63 (78) 99 05/20/20 15:45 91 19 102/62 (75) 99 05/20/20 15:30 89 16 107/67 (80) 100 05/20/20 15:16 89 18 30 05/20/20 15:15 87 25 91/58 (69) 99 05/20/20 15:00 90/54 05/20/20 15:00 84 25 90/54 (66) 99 05/20/20 14:45 85 20 90/57 (68) 99 Height (Feet): 5 Height (Inches): 4.00 Weight (Pounds): 149 GEN: On Vent HEENT: NCAT, MMM, Intubated Pulm: Equal rise and fall B/L ABD: Soft, ND, PEG (No e/p) Neuro: Not following, Intubated SKIN: Exposed skin with no rash, Normal in color Microbiology Date/Time Source Procedure Growth Status 05/20/20 04:00 Rectum Received Laboratory Tests Test 05/21/20 04:00 05/21/20 09:40 White Blood Count 16.9 K/UL (4.8-10.8) H Red Blood Count 3.22 M/UL (4.20-5.40) L Hemoglobin 9.9 G/DL (12.0-16.0) L Hematocrit 29.4 % (37.0-47.0) L Mean Corpuscular Volume 91 FL (80-99) Mean Corpuscular Hemoglobin 30.8 PG (27.0-31.0) Mean Corpuscular Hemoglobin Concent 33.8 G/DL (32.0-36.0) Red Cell Distribution Width 12.8 % (11.6-14.8) Platelet Count 160 K/UL (150-450) # Mean Platelet Volume 9.8 FL (6.5-10.1) Neutrophils (%) (Auto) % (45.0-75.0) Lymphocytes (%) (Auto) % (20.0-45.0) Monocytes (%) (Auto) % (1.0-10.0) Eosinophils (%) (Auto) % (0.0-3.0) Basophils (%) (Auto) % (0.0-2.0) Differential Total Cells Counted 100 Neutrophils % (Manual) 96 % (45-75) H Lymphocytes % (Manual) 3 % (20-45) L Monocytes % (Manual) 1 % (1-10) Eosinophils % (Manual) 0 % (0-3) Basophils % (Manual) 0 % (0-2) Band Neutrophils 0 % (0-8) Platelet Estimate Adequate Platelet Morphology Normal Hypochromasia 2+ Anisocytosis 1+ Arterial Blood pH 7.478 (7.350-7.450) Arterial Blood Partial Pressure CO2 28.0 mmHg (35.0-45.0) L Arterial Blood Partial Pressure O2 136.5 mmHg (75.0-100.0) H Arterial Blood HCO3 20.3 mmol/L (22.0-26.0) L Arterial Blood Oxygen Saturation 98.3 % (95-100) Arterial Blood Base Excess -2.4 (-2-2) L Anthony Test Positive Sodium Level 145 MMOL/L (136-145) Potassium Level 4.3 MMOL/L (3.5-5.1) Chloride Level 113 MMOL/L (98-107) H Carbon Dioxide Level 24 MMOL/L (21-32) Anion Gap 8 mmol/L (5-15) Blood Urea Nitrogen 50 mg/dL (7-18) H Creatinine 1.0 MG/DL (0.55-1.30) Estimat Glomerular Filtration Rate 54.7 mL/min (>60) Glucose Level 165 MG/DL (74-106) H Calcium Level 8.6 MG/DL (8.5-10.1) POC Whole Blood Glucose Pending Current Medications Medications (Trade) Dose Ordered Sig/Morgan Route PRN Reason Start Time Stop Time Status Last Admin Dose Admin Acetaminophen (Tylenol) 650 mg Q4H PRN GT Temp >100.5 05/16/20 06:15 06/15/20 06:14 05/21/20 13:33 Acetaminophen (Tylenol) 650 mg Q4H PRN RECTAL Temp >100.5 05/16/20 19:45 06/15/20 19:44 05/17/20 18:30 Chlorhexidine Gluconate (Lilliam-Hex 2%) 1 applic DAILY@2000 TOPIC 05/15/20 20:00 08/13/20 19:59 05/20/20 21:12 Dexamethasone Sodium Phosphate (Decadron 10mg/ ml Inj) 6 mg DAILY IV 05/16/20 09:00 05/24/20 08:59 05/21/20 09:09 Dextrose (Dextrose 50%) 25 ml Q30M PRN IV Hypoglycemia 05/15/20 18:00 08/13/20 17:59 Dextrose (Dextrose 50%) 50 ml Q30M PRN IV Hypoglycemia 05/15/20 18:00 08/13/20 17:59 Insulin Aspart (NovoLOG) Q4HR SUBQ 05/15/20 21:00 08/13/20 20:59 05/21/20 09:58 Meropenem 1 gm/ Sodium Chloride 55 ml @ 110 mls/hr Q12HR@0200,1400 IVPB 05/17/20 14:00 05/23/20 23:59 05/21/20 13:33 Morphine Sulfate (Morphine Sulfate) 2 mg EVERY 3 HOURS PRN IVP Moderate Pain (Pain Scale 4-6) 05/14/20 20:15 05/21/20 20:14 05/20/20 02:39 Morphine Sulfate (Morphine Sulfate) 4 mg EVERY 3 HOURS PRN IVP Severe Pain (Pain Scale 7-10) 05/14/20 20:15 05/21/20 20:14 05/20/20 21:12 Norepinephrine Bitartrate 8 mg/ Dextrose 250 ml @ 0 mls/hr Q24H IV 05/20/20 18:00 06/19/20 17:59 05/20/20 18:00 Pantoprazole (Protonix) 40 mg DAILY IV 05/15/20 09:00 06/14/20 08:59 05/21/20 09:08 Phenylephrine HCl 100 mg/Dextrose 250 ml @ 0 mls/hr Q24H IV 05/15/20 00:15 06/14/20 00:14 05/15/20 13:28 Sodium Chloride 1,000 ml @ 75 mls/hr [id number] IV 05/15/20 06:45 06/14/20 06:44 05/21/20 04:08 Vasopressin 100 units/Sodium Chloride 100 ml @ 0 mls/hr Q24H IV 05/15/20 00:15 06/14/20 00:14 Zinc Oxide (Zinc Oxide) 1 applic TIDPRN PRN TOPIC Abdominal cramps 05/20/20 13:00 08/18/20 12:59 Yomaira Terry M.D. May 21, 2020 14:39
--- NOTE | 2020-05-21 15:00 | NUR ---
NURSE NOTES: LATE ENTRY: MD PHELPS HERE TO SEE PT. WAS INFORMED OF SR. PT ON LEVOPHED, DOWN TO 3MCG/MIN BUT HAS HYPOTENSIVE EPISODES WILL REMAIN AT 4MCG/MIN. NO NEW ORDERS AT THIS TIME.
--- NOTE | 2020-05-21 15:54 | Cardiac Electrophysiology PN ---
Assessment/Plan Assessment/Plan 1. [id number] myocardial infarction. Her troponin was 1.258,1.2,1.9, 3.4 and the down to 0.7 EKG does not show any acute ST-T wave abnormality and certainly no ST elevation. Due to septic shock, DCCV and Renal failure. The echocardiogram had poor windows. 2. PAF with RVR. S/P DCCV 3 times No more fib or accelerated junctional rhythm. Can not use beta-ramakrishna or calcium-channel ramakrishna as the patient is still on Levophed. Loaded with digoxin and dig level is 1.6 3. Septic shock. The patient is on Levophed 3 mcg as well as broad-spectrum antibiotic with vancomycin and cefepime. 4. Severe hypernatremia with sodium of 174, BUN of 131, creatinine 2.7 due to dehydration. Sodium is 155 with BUN of 91 and creatinine of 1.9 with IV fluids. 5. Lactic acidosis, septic shock, on antibiotic. 6. Dysphagia, status post PEG placement. PEG came out on 05/18 and now getting NGT feeding PEG replacement pending 7. History of CVA and dementia. 8. Respiratory failure, currently on the ventilator at 30% FiO2. KIMMY RN Subjective Subjective In ICU in SR with no atrial fib or Junctional tach. Levophed was decreased to 3 Mcg on the Vent 40% Fio2 In Covid isolation. PEG came out on 05/18 and now getting NGT feeding Objective Last 24 Hour Vital Signs Date Time Temp Pulse Resp B/P (MAP) Pulse Ox O2 Delivery O2 Flow Rate FiO2 05/21/20 15:30 74 19 93/46 (62) 92 05/21/20 15:00 82 15 103/53 (70) 100 05/21/20 14:30 79 22 110/60 (77) 100 05/21/20 14:15 80 20 118/67 (84) 100 05/21/20 14:03 100.5 05/21/20 14:00 76 13 106/62 (77) 100 05/21/20 13:00 75 13 99/51 (67) 100 05/21/20 12:30 79 12 94/48 (63) 100 05/21/20 12:15 79 15 99/58 (72) 100 05/21/20 12:00 50 05/21/20 12:00 100.2 80 14 103/52 (69) 100 05/21/20 12:00 Mechanical Ventilator 05/21/20 12:00 78 05/21/20 11:30 78 12 94/48 (63) 100 05/21/20 11:16 78 24 40 05/21/20 11:00 77 20 98/53 (68) 100 05/21/20 10:00 99.1 79 21 98/48 (65) 100 05/21/20 09:00 79 19 111/63 (79) 100 05/21/20 08:00 80 05/21/20 08:00 40 05/21/20 08:00 Mechanical Ventilator 05/21/20 08:00 76 19 107/60 (76) 100 05/21/20 07:45 100 05/21/20 07:41 40 05/21/20 07:25 75 16 40 30 05/21/20 07:00 72 14 109/59 (76) 100 05/21/20 06:34 70 14 05/21/20 06:30 70 14 103/56 (72) 100 05/21/20 06:00 110/36 05/21/20 06:00 70 15 110/58 (75) 100 05/21/20 05:30 70 14 107/56 (73) 100 05/21/20 05:00 91/53 05/21/20 05:00 70 15 91/53 (66) 97 05/21/20 04:30 73 14 99/60 (73) 100 05/21/20 04:00 71 05/21/20 04:00 99.4 76 18 83/46 (58) 87 05/21/20 04:00 Mechanical Ventilator 05/21/20 04:00 83/46 05/21/20 04:00 50 05/21/20 03:30 77 13 103/55 (71) 100 05/21/20 03:00 111/60 05/21/20 03:00 75 13 111/66 (81) 100 05/21/20 02:57 75 15 40 05/21/20 02:30 74 14 106/60 (75) 100 05/21/20 02:00 98/59 05/21/20 02:00 75 14 98/59 (72) 100 05/21/20 01:30 75 12 91/59 (70) 100 05/21/20 01:00 96/56 05/21/20 01:00 76 18 96/56 (69) 100 05/21/20 00:30 77 22 100/49 (66) 93 05/21/20 00:00 40 05/21/20 00:00 87 05/21/20 00:00 Mechanical Ventilator 05/21/20 00:00 102/55 05/21/20 00:00 99.8 80 15 102/55 (71) 99 05/20/20 23:30 82 15 94/55 (68) 99 05/20/20 23:00 96/56 05/20/20 23:00 82 19 96/56 (69) 99 05/20/20 22:43 81 24 40 05/20/20 22:30 82 18 97/58 (71) 100 05/20/20 22:00 92/58 05/20/20 22:00 99.5 83 16 92/58 (69) 100 05/20/20 21:30 81 13 99/62 (74) 100 05/20/20 21:00 82 15 90/59 (69) 100 05/20/20 21:00 91/59 05/20/20 20:30 84 14 92/56 (68) 100 05/20/20 20:00 82 05/20/20 20:00 100.5 84 16 101/54 (70) 100 05/20/20 20:00 101/54 05/20/20 20:00 Mechanical Ventilator 05/20/20 20:00 40 05/20/20 19:30 83 13 91/58 (69) 100 05/20/20 19:05 85 12 30 05/20/20 19:00 85 13 96/57 (70) 100 05/20/20 19:00 96/57 05/20/20 18:00 95/56 05/20/20 18:00 88 14 95/56 (69) 100 05/20/20 17:45 89 13 104/63 (77) 100 05/20/20 17:30 89 15 103/67 (79) 100 05/20/20 17:15 87 13 112/68 (83) 100 05/20/20 17:02 85 12 30 05/20/20 17:00 99/63 05/20/20 17:00 85 16 99/63 (75) 99 05/20/20 16:59 40 05/20/20 16:45 88 18 103/63 (76) 99 05/20/20 16:30 88 19 109/65 (80) 99 05/20/20 16:15 90 20 101/63 (76) 99 05/20/20 16:00 30 05/20/20 16:00 90 05/20/20 16:00 Mechanical Ventilator 05/20/20 16:00 108/63 05/20/20 16:00 98.2 90 20 108/63 (78) 99 Intake and Output 05/20/20 05/21/20 19:00 07:00 Intake Total 2062.64 ml 2061.25 ml Output Total 1150 ml 440 ml Balance 912.64 ml 1621.25 ml Free Water 295 ml 300 ml IV Total 1047.64 ml 1041.25 ml Tube Feeding 720 ml 720 ml Output Urine Total 1150 ml 440 ml # Bowel Movements 2 Laboratory Tests Test 05/21/20 04:00 05/21/20 09:40 White Blood Count 16.9 K/UL (4.8-10.8) H Red Blood Count 3.22 M/UL (4.20-5.40) L Hemoglobin 9.9 G/DL (12.0-16.0) L Hematocrit 29.4 % (37.0-47.0) L Mean Corpuscular Volume 91 FL (80-99) Mean Corpuscular Hemoglobin 30.8 PG (27.0-31.0) Mean Corpuscular Hemoglobin Concent 33.8 G/DL (32.0-36.0) Red Cell Distribution Width 12.8 % (11.6-14.8) Platelet Count 160 K/UL (150-450) # Mean Platelet Volume 9.8 FL (6.5-10.1) Neutrophils (%) (Auto) % (45.0-75.0) Lymphocytes (%) (Auto) % (20.0-45.0) Monocytes (%) (Auto) % (1.0-10.0) Eosinophils (%) (Auto) % (0.0-3.0) Basophils (%) (Auto) % (0.0-2.0) Differential Total Cells Counted 100 Neutrophils % (Manual) 96 % (45-75) H Lymphocytes % (Manual) 3 % (20-45) L Monocytes % (Manual) 1 % (1-10) Eosinophils % (Manual) 0 % (0-3) Basophils % (Manual) 0 % (0-2) Band Neutrophils 0 % (0-8) Platelet Estimate Adequate Platelet Morphology Normal Hypochromasia 2+ Anisocytosis 1+ Arterial Blood pH 7.478 (7.350-7.450) Arterial Blood Partial Pressure CO2 28.0 mmHg (35.0-45.0) L Arterial Blood Partial Pressure O2 136.5 mmHg (75.0-100.0) H Arterial Blood HCO3 20.3 mmol/L (22.0-26.0) L Arterial Blood Oxygen Saturation 98.3 % (95-100) Arterial Blood Base Excess -2.4 (-2-2) L Anthony Test Positive Sodium Level 145 MMOL/L (136-145) Potassium Level 4.3 MMOL/L (3.5-5.1) Chloride Level 113 MMOL/L (98-107) H Carbon Dioxide Level 24 MMOL/L (21-32) Anion Gap 8 mmol/L (5-15) Blood Urea Nitrogen 50 mg/dL (7-18) H Creatinine 1.0 MG/DL (0.55-1.30) Estimat Glomerular Filtration Rate 54.7 mL/min (>60) Glucose Level 165 MG/DL (74-106) H Calcium Level 8.6 MG/DL (8.5-10.1) POC Whole Blood Glucose Pending Microbiology Date/Time Source Procedure Growth Status 05/20/20 04:00 Rectum Received Objective HEAD AND NECK: Show no JVD. She is orally intubated. LUNGS: Coarse rhonchi. CARDIOVASCULAR: Shows regular S1 and S2 with no gallop. ABDOMEN: Soft. Status post G-tube. EXTREMITIES: Show no pitting edema. Norman Morillo MD May 21, 2020 15:54
--- NOTE | 2020-05-21 16:16 | NUR ---
NURSE NOTES: LATE ENTRY: PT IN BED. RESTING WITH EYES CLOSED. TOLERATING TUBE FEEDINGS. PT REPOSITIONED. ORAL CARE PROVIDED. COOLING MEASURES REMAIN IN PLACE. PT IN NO ACUTE DISTRESS. WILL CONTINUE TO MONITOR.
--- NOTE | 2020-05-21 17:11 | General Progress Note ---
Assessment/Plan Status: unchanged Assessment/Plan: Assessment/Plan 1. History of CVA. 2. Dementia. 3. Dysphagia, s/p GT removal 4. Cachexia. 5. Diabetes. 6. Pressure ulcers. 7. Hypothyroidism. 8. Legal blindness. 9. COVID positive. Recommendations GT site and NGT care Continue NGTF vent care follow labs GT replacement when more stable Subjective Allergies: Coded Allergies: DIVALPROEX SODIUM (Verified Allergy, Unknown, 05/14/20) PENICILLINS (Verified Allergy, Unknown, 05/14/20) Subjective above noted d/w staff midwife tolerating TF on vent Objective Last 24 Hour Vital Signs Date Time Temp Pulse Resp B/P (MAP) Pulse Ox O2 Delivery O2 Flow Rate FiO2 05/21/20 16:30 74 14 105/57 (73) 100 05/21/20 16:00 76 05/21/20 16:00 76 21 95/47 (63) 100 05/21/20 15:30 74 19 93/46 (62) 92 05/21/20 15:09 76 26 40 05/21/20 15:00 82 15 103/53 (70) 100 05/21/20 14:30 79 22 110/60 (77) 100 05/21/20 14:15 80 20 118/67 (84) 100 05/21/20 14:03 100.5 05/21/20 14:00 76 13 106/62 (77) 100 05/21/20 13:00 75 13 99/51 (67) 100 05/21/20 12:30 79 12 94/48 (63) 100 05/21/20 12:15 79 15 99/58 (72) 100 05/21/20 12:00 50 05/21/20 12:00 100.2 80 14 103/52 (69) 100 05/21/20 12:00 Mechanical Ventilator 05/21/20 12:00 78 05/21/20 11:30 78 12 94/48 (63) 100 05/21/20 11:16 78 24 40 05/21/20 11:00 77 20 98/53 (68) 100 05/21/20 10:00 99.1 79 21 98/48 (65) 100 05/21/20 09:00 79 19 111/63 (79) 100 05/21/20 08:00 80 9/12/20 08:00 40 05/21/20 08:00 Mechanical Ventilator 05/21/20 08:00 76 19 107/60 (76) 100 05/21/20 07:45 100 05/21/20 07:41 40 05/21/20 07:25 75 16 40 30 05/21/20 07:00 72 14 109/59 (76) 100 05/21/20 06:34 70 14 05/21/20 06:30 70 14 103/56 (72) 100 05/21/20 06:00 110/36 05/21/20 06:00 70 15 110/58 (75) 100 05/21/20 05:30 70 14 107/56 (73) 100 05/21/20 05:00 91/53 05/21/20 05:00 70 15 91/53 (66) 97 05/21/20 04:30 73 14 99/60 (73) 100 05/21/20 04:00 71 05/21/20 04:00 99.4 76 18 83/46 (58) 87 05/21/20 04:00 Mechanical Ventilator 05/21/20 04:00 83/46 05/21/20 04:00 50 05/21/20 03:30 77 13 103/55 (71) 100 05/21/20 03:00 111/60 05/21/20 03:00 75 13 111/66 (81) 100 05/21/20 02:57 75 15 40 05/21/20 02:30 74 14 106/60 (75) 100 05/21/20 02:00 98/59 05/21/20 02:00 75 14 98/59 (72) 100 05/21/20 01:30 75 12 91/59 (70) 100 05/21/20 01:00 96/56 05/21/20 01:00 76 18 96/56 (69) 100 05/21/20 00:30 77 22 100/49 (66) 93 05/21/20 00:00 40 05/21/20 00:00 87 05/21/20 00:00 Mechanical Ventilator 05/21/20 00:00 102/55 05/21/20 00:00 99.8 80 15 102/55 (71) 99 05/20/20 23:30 82 15 94/55 (68) 99 05/20/20 23:00 96/56 05/20/20 23:00 82 19 96/56 (69) 99 05/20/20 22:43 81 24 40 05/20/20 22:30 82 18 97/58 (71) 100 05/20/20 22:00 92/58 05/20/20 22:00 99.5 83 16 92/58 (69) 100 05/20/20 21:30 81 13 99/62 (74) 100 05/20/20 21:00 82 15 90/59 (69) 100 05/20/20 21:00 91/59 05/20/20 20:30 84 14 92/56 (68) 100 05/20/20 20:00 82 05/20/20 20:00 100.5 84 16 101/54 (70) 100 05/20/20 20:00 101/54 05/20/20 20:00 Mechanical Ventilator 05/20/20 20:00 40 05/20/20 19:30 83 13 91/58 (69) 100 05/20/20 19:05 85 12 30 05/20/20 19:00 85 13 96/57 (70) 100 05/20/20 19:00 96/57 05/20/20 18:00 95/56 05/20/20 18:00 88 14 95/56 (69) 100 05/20/20 17:45 89 13 104/63 (77) 100 05/20/20 17:30 89 15 103/67 (79) 100 05/20/20 17:15 87 13 112/68 (83) 100 Intake and Output 05/20/20 05/21/20 19:00 07:00 Intake Total 2062.64 ml 2061.25 ml Output Total 1150 ml 440 ml Balance 912.64 ml 1621.25 ml Free Water 295 ml 300 ml IV Total 1047.64 ml 1041.25 ml Tube Feeding 720 ml 720 ml Output Urine Total 1150 ml 440 ml # Bowel Movements 2 Laboratory Tests 05/21/20 04:00: White Blood Count 16.9H, Red Blood Count 3.22L, Hemoglobin 9.9L, Hematocrit 29.4L, Mean Corpuscular Volume 91, Mean Corpuscular Hemoglobin 30.8, Mean Corpuscular Hemoglobin Concent 33.8, Red Cell Distribution Width 12.8, Platelet Count 160#, Mean Platelet Volume 9.8, Neutrophils (%) (Auto) , Lymphocytes (%) ( Auto) , Monocytes (%) (Auto) , Eosinophils (%) (Auto) , Basophils (%) (Auto) , Differential Total Cells Counted 100, Neutrophils % (Manual) 96H, Lymphocytes % (Manual) 3L, Monocytes % (Manual) 1, Eosinophils % (Manual) 0, Basophils % ( Manual) 0, Band Neutrophils 0, Platelet Estimate Adequate, Platelet Morphology Normal, Hypochromasia 2+, Anisocytosis 1+, Arterial Blood pH 7.478H, Arterial Blood Partial Pressure CO2 28.0L, Arterial Blood Partial Pressure O2 136.5H, Arterial Blood HCO3 20.3L, Arterial Blood Oxygen Saturation 98.3, Arterial Blood Base Excess -2.4L, Anthony Test Positive, Sodium Level 145, Potassium Level 4.3, Chloride Level 113H, Carbon Dioxide Level 24, Anion Gap 8, Blood Urea Nitrogen 50H, Creatinine 1.0, Estimat Glomerular Filtration Rate 54.7, Glucose Level 165H, Calcium Level 8.6 05/21/20 09:40: POC Whole Blood Glucose [Pending] Height (Feet): 5 Height (Inches): 4.00 Weight (Pounds): 149 Objective Elderly WW on vent appears comfortable (+) NGT abd not distended Mary Odom MD May 21, 2020 17:11
--- NOTE | 2020-05-21 17:30 | NUR ---
NURSE NOTES: LATE ENTRY: MD. BENAVIDES HERE TO SEE PT. WAS INFORMED GT REMOVED. DRESSING CHANGED. DRAINAGE SEROSANGUINEOUS WITH GASTRIC ODOR NOTED. NGT IN PLACE. PLAN TO REPLACE WHEN MORE STABLE. TOLERATING TUBE FEEDS. NO NEW ORDERS.
--- NOTE | 2020-05-21 18:59 | NUR ---
HAND-OFF: Report given to JORGE. Duff PT IN NO ACUTE DISTRESS.
--- NOTE | 2020-05-21 19:11 | NUR ---
NURSE NOTES: SBAR received from Odalis RUIZ. Patient is awake, non-verbal and slightly obtunded. Patients has right arm weakness 0/5 strength due to Hx of CVA. Left side upper extremity is 1-3/5. Patient is orally intubated 7.5/23cm at the lower lip line. SIMV8, PS12, FiO2 of 40%. Patient is currently tolerating Vent settings. SpO2 is 100% and RR are 20, Blood pressure is 115/59 while on 4mcg/min of Levophed. Patient has a dry and clean dressing at abdomen site of an removal of prior GT. Currently has NGT at 60cm laxmi infusing 1.2 at 60ml/hr. Multiple skin alterations noted. There is a right IJ TLC covered with a transparent clean and dry dressing that is infusing Levophed at 4mcg/min and NS at 75ml/hr and NS TKO at 10ml/hr. There is a Arauz catheter that is hanging below waist line with yellow colored urine and is properly anchored. There is a low airloss mattress underneath patient. All safety measures have been checked and are in place. Ventilator and suctioning safety measures checked, bed in lowest position and locked, Bed alarm engaged. Will continue to monitor.
--- NOTE | 2020-05-21 19:47 | NUR ---
NURSE NOTES: Patients assessment performed; patient was assessed for pain using the FLACC scoring system; patient noted to have a FLACC score of 5/10. Tylenol 650mg via NGT was administered for pain of FLACC score of 5/10
[2020-05-21] MEDS: Dyna-Hex 2% Top Sol 2oz TOPIC SCH (19:58)
--- NOTE | 2020-05-21 20:00 | NUR ---
NURSE NOTES: Patients current blood pressure is 126/65, decreased Levophed to 2mcg/min. Will continue to monitor BP trends.
--- NOTE | 2020-05-21 20:15 | NUR ---
NURSE NOTES: Patient physical assessment performed; patient noted to have rectal temperature of 99.5F. Patient was given a cooling bath with CHG soap. Patient given Tylenol earlier for FLACC score of 5/10 which should also help alleviate body temperature. Oral care was performed and pt was also suctioned. Ventilator and other airway visual checks were done. NGT still remains intact and old GT site dressing remains dry and intact. Passive range of motion was offered and performed per patients tolerance. Patient is tolerating current SIMV ventilator settings with PS of 12, patient is making appropriate tidal volumes. Spo2 ranging above 95%. Pulses checked and equal bilaterally, mild generalized edema throughout body. NSR on the monitor, blood pressure within normotensive pressures with current pressor rate. Will continue to monitor.
--- NOTE | 2020-05-21 20:31 | NUR ---
NURSE NOTES: Reassessment of pain level using the FLACC pain scoring system after Tylenol 650mg via NGT was given shows a new FLACC score of 0/10. Will continue to monitor.
[2020-05-22] VITALS (79 sets, daily range): BP systolic 80–128; BP diastolic 44–74
--- NOTE | 2020-05-22 | NUR ---
NURSE NOTES: Dr. Luu at bedside rounding on patient, update MD on patients condition. Orders received from MD to discontinue Resistant insulin sliding scale dose and change to Moderate insulin sliding scale and to change glucose checks to every 6 hours. Also received orders to add Levemir 10units SQ Q12HR with parameters to hold dose if glucose is below 100.
[2020-05-22] MEDS: Vasopressin 100 UNITS in NS 95 ML IV SCH (00:15)
[2020-05-22] MEDS: Phenylephrine 100 MG in D5W 240 ML IV SCH (00:15)
[2020-05-22] MEDS: Meropenem 1 GM in NS 55 ML IVPB SCH ×2 (02:00→13:10)
--- NOTE | 2020-05-22 02:00 | NUR ---
NURSE NOTES: Repositioned patient and provided oral care and suctioning. Patient was repositioned for comfort and for skin integumentary precautions. Patient remains on 2 mcg/min. Tolerating ventilator settings, ventilator and airway safety checked performed.
--- NOTE | 2020-05-22 04:00 | NUR ---
NURSE NOTES: Patient was provided with a sponge bath and blood drawn for AM labs. Patient was given Patient had no BM. Cooling bath was also provided given that patient runs low grade fevers. Repositioned patient for comfort and provided oral hygiene and suctioning. Ventilator and airway safety checks performed. Tolerating ventilator settings. SpO2 is 100%, pulses present and NSR on the monitor.
[2020-05-22] MEDS: NovoLOG Insulin Flexpen SUBQ SCH ×3 (06:00→18:00)
--- NOTE | 2020-05-22 06:00 | NUR ---
NURSE NOTES: Titrated up Levophed to 4mcg/min because blood pressure was trending on the low side. Suctioned patient. Neuro status remains unchanged. HR is 61NSR. Safety checks performed. Glucose was 114, no insulin coverage needed. Will continue to monitor.
--- NOTE | 2020-05-22 07:15 | NUR ---
NURSE NOTE: late entry: RECEIVED REPORT FROM CLAUDIA Duff PT OBTUNDED, OPENS EYES. PUPILS SLUGGISH 3MM. NONVERBAL. SR ON MONITOR. BP STABLE ON PRESSORS, LEVOPHED AT 4MCG/MIN. PT INTUBATED. ETTUBE 7.5, 23CM AT LIP. VENT SETTINGS SIMV 8, PS 12, FI02 40%. RR 11. NO RESPIRATORY DISTRESS NOTED. LUNG SOUNDS DIMINISHED BILATERAL, RHONCHI. SECRETIONS SCANT, WHITE. RT NARES NGT. TUBE FEEDING GLUCERNA 1.2, AT 60ML/HR. NO RESIDUALS. NO BM NOTED. ABDOMEN SOFT, NON TENDER. BOWEL SOUNDS HYPOACTIVE X4. DEL TORO IN PLACE. DRAINING BELOW BLADDER. SKIN- SEE ASSESSMENT. NON PITTING EDEMA OF HANDS. BILATERAL RADIAL AND PEDAL PULSES WEAK. CAP REFILL <3SEC. NO JVD. LEFT WRIST, SOFT RESTRAINT IN PLACE. CIRCULATION AND COMFORT CHECK COMPLETED. IV ACCESS RT IJ, FLUIDS RUNNING 1/2 NS AT 75ML/HR. PT IN AIRBORNE/CONTACT ISOLATION. BED LOCKED, IN LOW POSITION. SIDE RAILS X2, CHUN ALARM ON. WILL CONTINUE TO MONITOR PT.
--- NOTE | 2020-05-22 07:20 | NUR ---
NURSE HAND-OFF REPORT: Latest Vital Signs: Temperature 99.5 , Pulse 63 , B/P 87/47 , Respiratory Rate 12 , O2 SAT 100 , Mechanical Ventilator, FiO2 at 40%. Vital Sign Comment: Temperature was for 0400; Levophed at 4mcg/min EKG Rhythm: Sinus Rhythm Rhythm change?: N Latest Garza Fall Score: 50 Fall Risk: High Risk Safety Measures: Call light Within Reach, Bed Alarm Zone 1, Side Rails Side Rails x3, Bed position Low and Locked: Y Fall Precautions: Y Door Sign: Y Report given to Lucia RUIZ
[2020-05-22 07:27] LABS: HEMOGLOBIN 8.7 G/DL (12.0-16.0); MEAN CORPUSCULAR VOLUME 91 FL (80-99); PLATELET COUNT 172 K/UL (150-450); RED BLOOD COUNT 2.87 M/UL (4.20-5.40); RED CELL DISTRIBUTION WIDTH 13.2 % (11.6-14.8); WHITE BLOOD COUNT 13.9 K/UL (4.8-10.8)
--- NOTE | 2020-05-22 07:50 | NUR ---
NURSE NOTES: late entry: PT OBTUNDED. PUPILS SLUGGISH 3MM. NONVERBAL. SR ON MONITOR. BP STABLE ON PRESSORS, LEVOPHED AT 4MCG/MIN. PT INTUBATED. ETTUBE 7.5, 23CM AT LIP. VENT SETTINGS SIMV 8, PS 12, FI02 50%. NO RESPIRATORY DISTRESS NOTED. LUNG SOUNDS DIMINISHED BILATERAL, RHONCHI. SECRETIONS SCANT, WHITE. ORAL CARE PROVIDED. TUBE FEEDING GLUCERNA 1.2, RUNNING AT 60ML/HR. NO RESIDUAL. ABDOMEN SOFT, NON TENDER. BOWEL SOUNDS HYPOACTIVE ALL QUADRANTS. URINE OUTPUT 35ML/HR, STRAW COLOR. DRAINING BELOW BLADDER AND SECURE. ACCU CHK Q6HR. SKIN- SEE ASSESSMENT. NON PITTING EDEMA OF HANDS. BILATERAL RADIAL AND PEDAL PULSES WEAK. CAP REFILL <3SEC. NO JVD. LEFT WRIST, SOFT RESTRAINT IN PLACE. CIRCULATION AND COMFORT CHECK COMPLETED. PT IN AIRBORNE/CONTACT ISOLATION. BED LOCKED, IN LOW POSITION. SIDE RAILS X2, CHUN ALARM ON. WILL CONTINUE TO MONITOR PT.
[2020-05-22 07:57] LABS: ALANINE AMINOTRANSFERASE 51 U/L (12-78); ALBUMIN 1.5 G/DL (3.4-5.0); ALBUMIN/GLOBULIN RATIO 0.5 (1.0-2.7); ALKALINE PHOSPHATASE 41 U/L (46-116); ANION GAP 10 mmol/L (5-15); ASPARTATE AMINO TRANSFERASE 44 U/L (15-37); BILIRUBIN,TOTAL 0.3 MG/DL (0.2-1.0); BLOOD UREA NITROGEN 45 mg/dL (7-18); CALCIUM 8.2 MG/DL (8.5-10.1); CARBON DIOXIDE 22 MMOL/L (21-32); CHLORIDE 112 MMOL/L (98-107); CREATININE 0.9 MG/DL (0.55-1.30); POTASSIUM 4.4 MMOL/L (3.5-5.1); SODIUM 144 MMOL/L (136-145)
--- NOTE | 2020-05-22 09:11 | Pulmonology Progress Note ---
Subjective ROS Limited/Unobtainable: Yes Interval Events: Remains intubated; on levophed Constitutional: Reports: no symptoms HEENT: Repors: no symptoms Respiratory: Reports: no symptoms Cardiovascular: Reports: no symptoms Gastrointestinal/Abdominal: Reports: no symptoms Genitourinary: Reports: no symptoms Allergies: Coded Allergies: DIVALPROEX SODIUM (Verified Allergy, Unknown, 05/14/20) PENICILLINS (Verified Allergy, Unknown, 05/14/20) All Systems: reviewed and negative except above Objective Last 24 Hour Vital Signs Date Time Temp Pulse Resp B/P (MAP) Pulse Ox O2 Delivery O2 Flow Rate FiO2 05/22/20 08:28 100 05/22/20 08:10 40 05/22/20 08:00 64 13 88/48 (61) 99 05/22/20 07:14 65 12 40 40 05/22/20 07:00 63 12 86/50 (62) 99 05/22/20 07:00 86/50 05/22/20 06:39 61 14 05/22/20 06:30 61 13 91/51 (64) 100 05/22/20 06:00 92/49 05/22/20 06:00 62 14 111/55 (73) 100 05/22/20 05:45 58 11 93/47 (62) 100 05/22/20 05:45 93/47 05/22/20 05:38 59 11 98/52 (67) 100 05/22/20 05:30 58 12 84/44 (57) 100 05/22/20 05:15 58 12 93/49 (64) 100 05/22/20 05:00 89/51 05/22/20 05:00 59 11 89/51 (64) 100 05/22/20 04:30 59 11 90/51 (64) 100 05/22/20 04:00 85 05/22/20 04:00 99.5 62 11 93/53 (66) 100 05/22/20 04:00 91/48 05/22/20 04:00 Mechanical Ventilator 05/22/20 04:00 40 05/22/20 03:30 63 15 96/51 (66) 96 05/22/20 03:00 82/47 05/22/20 03:00 63 10 84/47 (59) 94 05/22/20 02:44 65 13 40 05/22/20 02:30 69 18 91/47 (62) 94 05/22/20 02:00 91/52 05/22/20 01:30 71 19 98/49 (65) 100 05/22/20 01:00 81/49 05/22/20 01:00 73 20 113/74 (87) 100 05/22/20 00:30 72 18 88/51 (63) 99 05/22/20 00:00 99.8 69 17 92/48 (63) 97 05/22/20 00:00 40 05/22/20 00:00 92/48 05/22/20 00:00 Mechanical Ventilator 05/22/20 00:00 71 05/21/20 23:30 74 16 96/57 (70) 98 05/21/20 23:00 66 17 100/58 (72) 100 05/21/20 23:00 100/58 05/21/20 22:57 64 11 40 05/21/20 22:30 69 17 96/53 (67) 99 05/21/20 22:00 64 22 93/49 (64) 96 05/21/20 22:00 93/43 05/21/20 21:30 68 25 89/49 (62) 98 05/21/20 21:00 72 19 89/43 (58) 86 05/21/20 21:00 89/43 05/21/20 20:45 77 29 103/51 (68) 91 05/21/20 20:30 77 25 102/50 (67) 98 05/21/20 20:15 79 29 112/56 (74) 99 05/21/20 20:14 79 32 114/55 (74) 100 05/21/20 20:00 40 05/21/20 20:00 81 05/21/20 20:00 126/65 05/21/20 20:00 Mechanical Ventilator 05/21/20 20:00 99.5 83 19 126/65 (85) 100 05/21/20 19:45 80 25 118/66 (83) 100 05/21/20 19:30 80 21 112/64 (80) 100 05/21/20 19:25 83 24 40 05/21/20 19:00 80 27 115/61 (79) 100 05/21/20 19:00 112/64 05/21/20 18:30 79 21 122/69 (86) 100 05/21/20 18:00 77 22 125/62 (83) 100 05/21/20 17:30 75 14 90/47 (61) 100 05/21/20 17:00 99.8 74 16 99/49 (66) 100 05/21/20 16:30 74 14 105/57 (73) 100 05/21/20 16:00 76 05/21/20 16:00 Mechanical Ventilator 05/21/20 16:00 95/47 05/21/20 16:00 50 05/21/20 16:00 76 21 95/47 (63) 100 05/21/20 15:30 74 19 93/46 (62) 92 05/21/20 15:09 76 26 40 05/21/20 15:00 103/53 05/21/20 15:00 82 15 103/53 (70) 100 05/21/20 14:30 79 22 110/60 (77) 100 05/21/20 14:15 80 20 118/67 (84) 100 05/21/20 14:03 100.5 05/21/20 14:00 76 13 106/62 (77) 100 05/21/20 14:00 106/62 05/21/20 13:45 90/54 05/21/20 13:33 97/51 05/21/20 13:15 91/48 05/21/20 13:00 75 13 99/51 (67) 100 05/21/20 13:00 99/51 05/21/20 12:30 79 12 94/48 (63) 100 05/21/20 12:15 79 15 99/58 (72) 100 05/21/20 12:00 50 05/21/20 12:00 100.2 80 14 103/52 (69) 100 05/21/20 12:00 Mechanical Ventilator 05/21/20 12:00 103/52 05/21/20 12:00 78 05/21/20 11:30 78 12 94/48 (63) 100 05/21/20 11:16 78 24 40 05/21/20 11:00 77 20 98/53 (68) 100 05/21/20 11:00 98/53 05/21/20 10:00 108/55 05/21/20 10:00 99.1 79 21 98/48 (65) 100 Intake and Output 05/21/20 05/22/20 19:00 07:00 Intake Total 1677.47 ml 1722.50 ml Output Total 455 ml 640 ml Balance 1222.47 ml 1082.50 ml Free Water 120 ml IV Total 927.47 ml 882.50 ml Tube Feeding 720 ml 720 ml Other 30 ml Output Urine Total 455 ml 640 ml # Bowel Movements 2 General Appearance: no acute distress HEENT: normocephalic Respiratory: chest wall non-tender, lungs clear Cardiovascular: normal peripheral pulses, normal rate Abdomen: normal bowel sounds Microbiology Date/Time Source Procedure Growth Status 05/20/20 04:00 Nasal Nares MRSA Culture - Final NO METHICILLIN RESISTANT STAPH AUREUS... Complete 05/20/20 04:00 Rectum Received Laboratory Tests 05/21/20 09:40: POC Whole Blood Glucose [Pending] 05/21/20 14:20: POC Whole Blood Glucose [Pending] 05/21/20 17:51: POC Whole Blood Glucose 188H 05/21/20 19:52: POC Whole Blood Glucose [Pending] 05/21/20 23:18: POC Whole Blood Glucose [Pending] 05/22/20 04:30: White Blood Count 13.9H, Red Blood Count 2.87L, Hemoglobin 8.7L, Hematocrit 26.0L, Mean Corpuscular Volume 91, Mean Corpuscular Hemoglobin 30.4, Mean Corpuscular Hemoglobin Concent 33.5, Red Cell Distribution Width 13.2, Platelet Count 172, Mean Platelet Volume 10.7H, Neutrophils (%) (Auto) , Lymphocytes (%) (Auto) , Monocytes (%) (Auto) , Eosinophils (%) (Auto) , Basophils (%) (Auto) , Neutrophils % (Manual) [Pending], Lymphocytes % (Manual) [Pending], Platelet Estimate [Pending], Platelet Morphology [Pending], Sodium Level 144, Potassium Level 4.4, Chloride Level 112H, Carbon Dioxide Level 22, Anion Gap 10, Blood Urea Nitrogen 45H, Creatinine 0.9, Estimat Glomerular Filtration Rate > 60, Glucose Level 108H, Calcium Level 8.2L, Total Bilirubin 0.3, Aspartate Amino Transf (AST/SGOT) 44H, Alanine Aminotransferase (ALT/SGPT) 51, Alkaline Phosphatase 41L, Total Protein 4.6L, Albumin 1.5L, Globulin 3.1, Albumin/ Globulin Ratio 0.5L 05/22/20 05:48: POC Whole Blood Glucose [Pending] Current Medications Medications (Trade) Dose Ordered Sig/Morgan Route PRN Reason Start Time Stop Time Status Last Admin Dose Admin Acetaminophen (Tylenol) 650 mg Q4H PRN GT Temp >100.5 05/16/20 06:15 06/15/20 06:14 05/21/20 20:01 Acetaminophen (Tylenol) 650 mg Q4H PRN RECTAL Temp >100.5 05/16/20 19:45 06/15/20 19:44 05/17/20 18:30 Chlorhexidine Gluconate (Lilliam-Hex 2%) 1 applic DAILY@2000 TOPIC 05/15/20 20:00 08/13/20 19:59 05/21/20 19:58 Dexamethasone Sodium Phosphate (Decadron 10mg/ ml Inj) 6 mg DAILY IV 05/16/20 09:00 05/24/20 08:59 05/21/20 09:09 Dextrose (Dextrose 50%) 25 ml Q30M PRN IV Hypoglycemia 05/22/20 00:00 08/20/20 00:00 Dextrose (Dextrose 50%) 50 ml Q30M PRN IV Hypoglycemia 05/22/20 00:00 08/20/20 00:00 Insulin Aspart (NovoLOG) EVERY 6 HOURS SUBQ 05/22/20 06:00 08/20/20 05:59 Insulin Detemir (Levemir) 10 units Q12HR SUBQ 05/22/20 09:00 08/20/20 08:59 Meropenem 1 gm/ Sodium Chloride 55 ml @ 110 mls/hr Q12HR@0200,1400 IVPB 05/17/20 14:00 05/23/20 23:59 05/22/20 02:00 Norepinephrine Bitartrate 8 mg/ Dextrose 250 ml @ 0 mls/hr Q24H IV 05/20/20 18:00 06/19/20 17:59 05/22/20 05:45 Pantoprazole (Protonix) 40 mg DAILY IV 05/15/20 09:00 06/14/20 08:59 05/21/20 09:08 Phenylephrine HCl 100 mg/Dextrose 250 ml @ 0 mls/hr Q24H IV 05/15/20 00:15 06/14/20 00:14 05/15/20 13:28 Sodium Chloride 1,000 ml @ 75 mls/hr [id number] IV 05/15/20 06:45 06/14/20 06:44 05/22/20 06:00 Vasopressin 100 units/Sodium Chloride 100 ml @ 0 mls/hr Q24H IV 05/15/20 00:15 06/14/20 00:14 Zinc Oxide (Zinc Oxide) 1 applic TIDPRN PRN TOPIC Abdominal cramps 05/20/20 13:00 08/18/20 12:59 Assessment/Plan Assessment/Plan IMPRESSION: 1. Acute respiratory failure. 2. Diabetes mellitus with hyperglycemia. 3. Septic shock. 4. Chronic G-tube. 5. Decubitus. 6. History of CHF. DISCUSSION: Continue fluids and antibiotics. Pressors. Continue AC mode till stable. Weaned well yesterday; will wean again today On 40% FiO2 DVT and GI prophylaxis. Respiratory precautions due to COVID-[address] Wade. I will follow carefully. Decadron continuing On pressors ABG better Richard James Omar Syed MD May 22, 2020 09:11
--- NOTE | 2020-05-22 09:36 | General Progress Note ---
Assessment/Plan Status: unchanged Assessment/Plan: 70-year-old female history of dementia, cachexia, dysphasia G-tube dependent feeding presents for evaluation of rapid heart rate and hypotension. # Septic with element of cardiogenic shock Etiology COVID 19 vs UTI vs bacteremia and NSTEMI Bcx POSITIVE WITH G+ Cocci and U cx 05/14 Proteus Mirabillis Continue Vancomycin DAY 8, Meropenem DAY 6 stopped Cefepime Dexamethasone due to hypoxia # 7 Leukocytosis today most likely due to steroids improving # Acute respiratory failure Intubated and not ready to wean off ICU care appreciated Dr. Enriquez consulted Ventilator management per ICU-pulmonary FiO2 40 % today. wean as tolerated started today. # SVT vs A. Flutter s/p DC x 3 # NSTEMI HR is controlled in the 100 range and tolerating Digoxin Vasopressors in place Levophed at [address] Morillo requested and TTE requested and poor window. Will need repeat TTE when able to safely complete. Limited due to covid positive Troponin 3.4 now 0.7 EKG 05/17 NSR # AG metabolic acidosis Ddx lactic acidosis Improved. # Hyperglycemia r/o DKA ABG and Ketones ordered Endocrine consult with Dr. Shelley IV insulin gtt stopped and in SQ insulin coverage now # Hypernatremia Improving Monitor BMP IVF to 1/2 NS lower rate 75 cc hr continue # COVID 19 Positive on admission. Original infection > 15 days ago, do not qualify for Revdisimir or plasma On Dexamethasone Contact and droplet isolation # Dysphagia PEG REMOVED 05/16 Carlo Vargas consulted and appreciate follow up and final plan for PEG replacement PENDING. PEG site with dressing in place and OFF PEG for now. NGT placed and Tube feeds started 05/18 and being tolerated at 45 cc hr # Thrombocytopenia Platelets down from 80 K to 64 K to 66 K ( OFF Heparin ) and UP to 84 K and now 160 K 05/17 dc heparin, use SCD, order US Liver, HIT Ab, HIV negative US legs to r.o dvt per [facility] policy # Hypokalemia Improved # Dementia Baseline # FULL CODE SW follow up to reach out to DPOA and consider change in code status due to high morbidity and risk of inpatient mortality. > 50 min spent in coordination of care and consultation with physicians and RN. Subjective Date patient seen: May 22, 2020 Time patient seen: 09:00 ROS Limited/Unobtainable: Yes Allergies: Coded Allergies: DIVALPROEX SODIUM (Verified Allergy, Unknown, 05/14/20) PENICILLINS (Verified Allergy, Unknown, 05/14/20) All Systems: reviewed and negative except above Subjective Non verbal, intubated Objective Last 24 Hour Vital Signs Date Time Temp Pulse Resp B/P (MAP) Pulse Ox O2 Delivery O2 Flow Rate FiO2 05/22/20 08:28 100 05/22/20 08:10 40 05/22/20 08:00 64 13 88/48 (61) 99 05/22/20 07:14 65 12 40 40 05/22/20 07:00 63 12 86/50 (62) 99 05/22/20 07:00 86/50 05/22/20 06:39 61 14 05/22/20 06:30 61 13 91/51 (64) 100 05/22/20 06:00 92/49 05/22/20 06:00 62 14 111/55 (73) 100 05/22/20 05:45 58 11 93/47 (62) 100 05/22/20 05:45 93/47 05/22/20 05:38 59 11 98/52 (67) 100 05/22/20 05:30 58 12 84/44 (57) 100 05/22/20 05:15 58 12 93/49 (64) 100 05/22/20 05:00 89/51 05/22/20 05:00 59 11 89/51 (64) 100 05/22/20 04:30 59 11 90/51 (64) 100 05/22/20 04:00 85 05/22/20 04:00 99.5 62 11 93/53 (66) 100 05/22/20 04:00 91/48 05/22/20 04:00 Mechanical Ventilator 05/22/20 04:00 40 05/22/20 03:30 63 15 96/51 (66) 96 05/22/20 03:00 82/47 05/22/20 03:00 63 10 84/47 (59) 94 05/22/20 02:44 65 13 40 05/22/20 02:30 69 18 91/47 (62) 94 05/22/20 02:00 91/52 05/22/20 01:30 71 19 98/49 (65) 100 05/22/20 01:00 81/49 05/22/20 01:00 73 20 113/74 (87) 100 05/22/20 00:30 72 18 88/51 (63) 99 05/22/20 00:00 99.8 69 17 92/48 (63) 97 05/22/20 00:00 40 05/22/20 00:00 92/48 05/22/20 00:00 Mechanical Ventilator 05/22/20 00:00 71 05/21/20 23:30 74 16 96/57 (70) 98 05/21/20 23:00 66 17 100/58 (72) 100 05/21/20 23:00 100/58 05/21/20 22:57 64 11 40 05/21/20 22:30 69 17 96/53 (67) 99 05/21/20 22:00 64 22 93/49 (64) 96 05/21/20 22:00 93/43 05/21/20 21:30 68 25 89/49 (62) 98 05/21/20 21:00 72 19 89/43 (58) 86 05/21/20 21:00 89/43 05/21/20 20:45 77 29 103/51 (68) 91 05/21/20 20:30 77 25 102/50 (67) 98 05/21/20 20:15 79 29 112/56 (74) 99 05/21/20 20:14 79 32 114/55 (74) 100 05/21/20 20:00 40 05/21/20 20:00 81 05/21/20 20:00 126/65 05/21/20 20:00 Mechanical Ventilator 05/21/20 20:00 99.5 83 19 126/65 (85) 100 05/21/20 19:45 80 25 118/66 (83) 100 05/21/20 19:30 80 21 112/64 (80) 100 05/21/20 19:25 83 24 40 05/21/20 19:00 80 27 115/61 (79) 100 05/21/20 19:00 112/64 05/21/20 18:30 79 21 122/69 (86) 100 05/21/20 18:00 77 22 125/62 (83) 100 05/21/20 17:30 75 14 90/47 (61) 100 05/21/20 17:00 99.8 74 16 99/49 (66) 100 05/21/20 16:30 74 14 105/57 (73) 100 05/21/20 16:00 76 05/21/20 16:00 Mechanical Ventilator 05/21/20 16:00 95/47 05/21/20 16:00 50 05/21/20 16:00 76 21 95/47 (63) 100 05/21/20 15:30 74 19 93/46 (62) 92 05/21/20 15:09 76 26 40 05/21/20 15:00 103/53 05/21/20 15:00 82 15 103/53 (70) 100 05/21/20 14:30 79 22 110/60 (77) 100 05/21/20 14:15 80 20 118/67 (84) 100 05/21/20 14:03 100.5 05/21/20 14:00 76 13 106/62 (77) 100 05/21/20 14:00 106/62 05/21/20 13:45 90/54 05/21/20 13:33 97/51 05/21/20 13:15 91/48 05/21/20 13:00 75 13 99/51 (67) 100 05/21/20 13:00 99/51 05/21/20 12:30 79 12 94/48 (63) 100 05/21/20 12:15 79 15 99/58 (72) 100 05/21/20 12:00 50 05/21/20 12:00 100.2 80 14 103/52 (69) 100 05/21/20 12:00 Mechanical Ventilator 05/21/20 12:00 103/52 05/21/20 12:00 78 05/21/20 11:30 78 12 94/48 (63) 100 05/21/20 11:16 78 24 40 05/21/20 11:00 77 20 98/53 (68) 100 05/21/20 11:00 98/53 05/21/20 10:00 108/55 05/21/20 10:00 99.1 79 21 98/48 (65) 100 Intake and Output 05/21/20 05/22/20 19:00 07:00 Intake Total 1677.47 ml 1722.50 ml Output Total 455 ml 640 ml Balance 1222.47 ml 1082.50 ml Free Water 120 ml IV Total 927.47 ml 882.50 ml Tube Feeding 720 ml 720 ml Other 30 ml Output Urine Total 455 ml 640 ml # Bowel Movements 2 Laboratory Tests 05/21/20 09:40: POC Whole Blood Glucose [Pending] 05/21/20 14:20: POC Whole Blood Glucose [Pending] 05/21/20 17:51: POC Whole Blood Glucose 188H 05/21/20 19:52: POC Whole Blood Glucose [Pending] 05/21/20 23:18: POC Whole Blood Glucose [Pending] 05/22/20 04:30: White Blood Count 13.9H, Red Blood Count 2.87L, Hemoglobin 8.7L, Hematocrit 26.0L, Mean Corpuscular Volume 91, Mean Corpuscular Hemoglobin 30.4, Mean Corpuscular Hemoglobin Concent 33.5, Red Cell Distribution Width 13.2, Platelet Count 172, Mean Platelet Volume 10.7H, Neutrophils (%) (Auto) , Lymphocytes (%) (Auto) , Monocytes (%) (Auto) , Eosinophils (%) (Auto) , Basophils (%) (Auto) , Neutrophils % (Manual) [Pending], Lymphocytes % (Manual) [Pending], Platelet Estimate [Pending], Platelet Morphology [Pending], Sodium Level 144, Potassium Level 4.4, Chloride Level 112H, Carbon Dioxide Level 22, Anion Gap 10, Blood Urea Nitrogen 45H, Creatinine 0.9, Estimat Glomerular Filtration Rate > 60, Glucose Level 108H, Calcium Level 8.2L, Total Bilirubin 0.3, Aspartate Amino Transf (AST/SGOT) 44H, Alanine Aminotransferase (ALT/SGPT) 51, Alkaline Phosphatase 41L, Total Protein 4.6L, Albumin 1.5L, Globulin 3.1, Albumin/ Globulin Ratio 0.5L 05/22/20 05:48: POC Whole Blood Glucose [Pending] Height (Feet): 5 Height (Inches): 4.00 Weight (Pounds): 149 General Appearance: WD/WN EENT: PERRL/EOMI Neck: non-tender Cardiovascular: normal rate Respiratory/Chest: decreased breath sounds Abdomen: non tender, other - dressing in the piror peg site ( no peg ) Extremities: normal range of motion Neurologic: other - sedated Jessica Wade MD May 22, 2020 09:36
[2020-05-22] MEDS: Pantoprazole Inj IV SCH (09:48)
[2020-05-22] MEDS: dexAMETHasone 10mg/ml Inj IV SCH (09:49)
[2020-05-22] MEDS: Levemir Flexpen SUBQ SCH ×2 (11:12→20:57)
--- NOTE | 2020-05-22 11:50 | NUR ---
NURSE NOTES: LATE ENTRY: PT OBTUNDED. PUPILS SLUGGISH 3MM. NONVERBAL. SR ON MONITOR. PT ON PRESSORS, LEVOPHED AT 4MCG/MIN. PT ETTUBE 7.5, 23CM AT LIP. SIMV 8, PS 12, FI02 50%. RR WNL. NO RESPIRATORY DISTRESS NOTED. SECRETIONS SCANT, WHITE. ORAL CARE PROVIDED. RT NARES NGT, TUBE FEEDING GLUCERNA 1.2, RUNNING AT 60ML/HR. NO RESIDUAL. NO BM. ABDOMEN SOFT, NON TENDER. BOWEL SOUNDS HYPOACTIVE. URINE STRAW COLOR. DEL TORO IN PLACE, DRAINING BELOW BLADDER AND SECURE. SKIN- SEE ASSESSMENT. NON PITTING EDEMA OF HANDS. BILATERAL RADIAL AND PEDAL PULSES WEAK. LEFT WRIST, SOFT RESTRAINT IN PLACE. CIRCULATION AND COMFORT CHECK COMPLETED. PT IN AIRBORNE/CONTACT ISOLATION. BED LOCKED, IN LOW POSITION. SIDE RAILS X2, BED ALARM ON. WILL CONTINUE TO MONITOR PT.
--- NOTE | 2020-05-22 12:29 | NUR ---
RESPIRATORY NOTES: Weaning stopped per Dr. Enriquez at 1214. New verbal vent orders given by Dr. Enriquez SIMV RR 10, PS +10, 40% FIO2, PEEP +5.
--- NOTE | 2020-05-22 16:53 | Surgery Progress Note ---
Surgery Progress Note Subjective Symptoms: other Objective Last 24 Hour Vital Signs Date Time Temp Pulse Resp B/P (MAP) Pulse Ox O2 Delivery O2 Flow Rate FiO2 05/22/20 15:45 73 17 94/53 (67) 99 05/22/20 15:30 73 17 94/52 (66) 99 05/22/20 15:23 71 19 114/61 (78) 100 05/22/20 15:15 70 14 80/47 (58) 100 05/22/20 15:09 70 14 40 05/22/20 15:00 71 15 89/50 (63) 100 05/22/20 14:45 72 15 86/48 (61) 100 05/22/20 14:30 72 15 96/52 (67) 100 05/22/20 14:15 71 13 97/52 (67) 100 05/22/20 14:00 71 14 96/49 (65) 100 05/22/20 13:15 67 14 100/55 (70) 100 05/22/20 13:00 71 15 108/65 (79) 100 05/22/20 12:45 68 13 101/58 (72) 100 05/22/20 12:30 68 14 99/58 (72) 100 05/22/20 12:15 40 05/22/20 12:15 69 20 99/61 (74) 100 05/22/20 12:14 70 12 40 05/22/20 12:14 40 05/22/20 12:00 68 17 99/51 (67) 100 05/22/20 12:00 Mechanical Ventilator 05/22/20 11:45 70 16 108/56 (73) 100 05/22/20 11:30 70 16 103/59 (74) 100 05/22/20 11:15 68 18 98/57 (71) 100 05/22/20 11:00 69 18 97/57 (70) 100 05/22/20 10:45 69 15 104/59 (74) 100 05/22/20 10:30 70 15 104/58 (73) 100 05/22/20 10:15 70 14 107/57 (74) 100 05/22/20 10:00 67 19 98/52 (67) 100 05/22/20 09:45 66 17 97/53 (68) 100 05/22/20 09:30 69 13 102/55 (71) 100 05/22/20 09:15 66 19 94/52 (66) 100 05/22/20 09:00 98.6 65 19 97/50 (66) 100 05/22/20 08:28 100 05/22/20 08:10 40 05/22/20 08:00 Mechanical Ventilator 05/22/20 08:00 64 13 88/48 (61) 99 05/22/20 07:14 65 12 40 40 05/22/20 07:00 63 12 86/50 (62) 99 05/22/20 07:00 86/50 05/22/20 06:39 61 14 05/22/20 06:30 61 13 91/51 (64) 100 05/22/20 06:00 92/49 05/22/20 06:00 62 14 111/55 (73) 100 05/22/20 05:45 58 11 93/47 (62) 100 05/22/20 05:45 93/47 05/22/20 05:38 59 11 98/52 (67) 100 05/22/20 05:30 58 12 84/44 (57) 100 05/22/20 05:15 58 12 93/49 (64) 100 05/22/20 05:00 89/51 05/22/20 05:00 59 11 89/51 (64) 100 05/22/20 04:30 59 11 90/51 (64) 100 05/22/20 04:00 85 05/22/20 04:00 99.5 62 11 93/53 (66) 100 05/22/20 04:00 91/48 05/22/20 04:00 Mechanical Ventilator 05/22/20 04:00 40 05/22/20 03:30 63 15 96/51 (66) 96 05/22/20 03:00 82/47 05/22/20 03:00 63 10 84/47 (59) 94 05/22/20 02:44 65 13 40 05/22/20 02:30 69 18 91/47 (62) 94 05/22/20 02:00 91/52 05/22/20 01:30 71 19 98/49 (65) 100 05/22/20 01:00 81/49 05/22/20 01:00 73 20 113/74 (87) 100 05/22/20 00:30 72 18 88/51 (63) 99 05/22/20 00:00 99.8 69 17 92/48 (63) 97 05/22/20 00:00 40 05/22/20 00:00 92/48 05/22/20 00:00 Mechanical Ventilator 05/22/20 00:00 71 05/21/20 23:30 74 16 96/57 (70) 98 05/21/20 23:00 66 17 100/58 (72) 100 05/21/20 23:00 100/58 05/21/20 22:57 64 11 40 05/21/20 22:30 69 17 96/53 (67) 99 05/21/20 22:00 64 22 93/49 (64) 96 05/21/20 22:00 93/43 05/21/20 21:30 68 25 89/49 (62) 98 05/21/20 21:00 72 19 89/43 (58) 86 05/21/20 21:00 89/43 05/21/20 20:45 77 29 103/51 (68) 91 05/21/20 20:30 77 25 102/50 (67) 98 05/21/20 20:15 79 29 112/56 (74) 99 05/21/20 20:14 79 32 114/55 (74) 100 05/21/20 20:00 40 05/21/20 20:00 81 05/21/20 20:00 126/65 05/21/20 20:00 Mechanical Ventilator 05/21/20 20:00 99.5 83 19 126/65 (85) 100 05/21/20 19:45 80 25 118/66 (83) 100 05/21/20 19:30 80 21 112/64 (80) 100 05/21/20 19:25 83 24 40 05/21/20 19:00 80 27 115/61 (79) 100 05/21/20 19:00 112/64 05/21/20 18:30 79 21 122/69 (86) 100 05/21/20 18:00 77 22 125/62 (83) 100 05/21/20 17:30 75 14 90/47 (61) 100 05/21/20 17:00 99.8 74 16 99/49 (66) 100 I&O Intake and Output 05/21/20 05/22/20 19:00 07:00 Intake Total 1677.47 ml 1722.50 ml Output Total 455 ml 640 ml Balance 1222.47 ml 1082.50 ml Free Water 120 ml IV Total 927.47 ml 882.50 ml Tube Feeding 720 ml 720 ml Other 30 ml Output Urine Total 455 ml 640 ml # Bowel Movements 2 Dressing: saturated Cardiovascular: RSR Respiratory: decreased breath sounds Abdomen: soft, non-tender, present bowel sounds Extremities: edema, no cyanosis Laboratory Tests Test 05/21/20 17:51 05/21/20 19:52 05/21/20 23:18 05/22/20 04:30 POC Whole Blood Glucose 188 MG/DL (74-106) H Pending Pending White Blood Count 13.9 K/UL (4.8-10.8) H Red Blood Count 2.87 M/UL (4.20-5.40) L Hemoglobin 8.7 G/DL (12.0-16.0) L Hematocrit 26.0 % (37.0-47.0) L Mean Corpuscular Volume 91 FL (80-99) Mean Corpuscular Hemoglobin 30.4 PG (27.0-31.0) Mean Corpuscular Hemoglobin Concent 33.5 G/DL (32.0-36.0) Red Cell Distribution Width 13.2 % (11.6-14.8) Platelet Count 172 K/UL (150-450) Mean Platelet Volume 10.7 FL (6.5-10.1) H Neutrophils (%) (Auto) % (45.0-75.0) Lymphocytes (%) (Auto) % (20.0-45.0) Monocytes (%) (Auto) % (1.0-10.0) Eosinophils (%) (Auto) % (0.0-3.0) Basophils (%) (Auto) % (0.0-2.0) Differential Total Cells Counted 100 Neutrophils % (Manual) 97 % (45-75) H Lymphocytes % (Manual) 2 % (20-45) L Monocytes % (Manual) 1 % (1-10) Eosinophils % (Manual) 0 % (0-3) Basophils % (Manual) 0 % (0-2) Band Neutrophils 0 % (0-8) Platelet Estimate Adequate Platelet Morphology Normal Hypochromasia 2+ Anisocytosis 1+ Sodium Level 144 MMOL/L (136-145) Potassium Level 4.4 MMOL/L (3.5-5.1) Chloride Level 112 MMOL/L (98-107) H Carbon Dioxide Level 22 MMOL/L (21-32) Anion Gap 10 mmol/L (5-15) Blood Urea Nitrogen 45 mg/dL (7-18) H Creatinine 0.9 MG/DL (0.55-1.30) Estimat Glomerular Filtration Rate > 60 mL/min (>60) Glucose Level 108 MG/DL (74-106) H Calcium Level 8.2 MG/DL (8.5-10.1) L Total Bilirubin 0.3 MG/DL (0.2-1.0) Aspartate Amino Transf (AST/SGOT) 44 U/L (15-37) H Alanine Aminotransferase (ALT/SGPT) 51 U/L (12-78) Alkaline Phosphatase 41 U/L (46-116) L Total Protein 4.6 G/DL (6.4-8.2) L Albumin 1.5 G/DL (3.4-5.0) L Globulin 3.1 g/dL Albumin/Globulin Ratio 0.5 (1.0-2.7) L Test 05/22/20 05:48 POC Whole Blood Glucose Pending Plan Problems: (1) Hypernatremia (2) Renal failure (3) Respiratory failure (4) Sepsis Assessment & Plan: COVID + leukocytosis anemia electrolytes abnormal on iv fluids renal input appreciated cxr noted abx as per ID will follow with recs Interim placement of orogastric tube, also documented on recent abdominal radiograph. Stable satisfactory position of endotracheal tube and right jugular central venous catheter. There is increased pleural fluid and likely left basilar consolidation/atelectasis. The right lung and pleural space remain clear. Impression: Increasing left pleural fluid and likely basilar consolidation/atelectasis. Interim orogastric intubation DAILY ESTIMATED NEEDS: Needs based on Pulmonary, DM, wounds 66.6kg 25-30 kcals/kg 7792-5288 total kcals 1.25-1.5 g protein/kg 83-100 g total protein 20-25 mL/kg 8270-6153 total fluid mLs NUTRITION DIAGNOSIS: Swallowing difficulty r/t dysphagia as evidenced by h/o CVA, pt is GT dep, currently ICU status, now intubated, off pressor support, GT feeds initiated. CURRENT TF:Glucerna 1.2 @45ml/hr ENTERAL NUTRITION RECOMMENDATIONS: As medically able: GLUCERNA 1.5 goal of 45ml/hr x24 hrs to provide 1080ml, 1620 kcal, 89g pro, 820ml free H2O -> as medically able without aspiration risk start Glucerna 1.5 @low rate 25ml/hr for 6 hrs. Advance as tolerated 10ml/hr q4-6 hrs to goal. - Flush per MD, HOB over 30 degrees. ---- If not hemodynamically stable, rec trophic feeds of 5-10ml/hr to maintain gut integrity. ADDITIONAL RECOMMENDATIONS: 1) Obtain an accurate calibrated bed scale wt 2) F/up w/ H&P 3) With active TF orders, add JASMYN BID for noted DTPI wounds 4) TF recs as above when off bipap and w/ hemodynamic stability -> Now intubated, off pressors, on GT feeds. he spleen size is normal. The gallbladder contains sludge. No stones. No wall thickening nor pericholecystic fluid. Common bile duct measures 4 mm in diameter. Small amount free fluid is seen adjacent to the liver and spleen Impression: Gallbladder sludge. Negative for dilated bile ducts Normal appearing liver and spleen (5) Elevated d-dimer (6) COVID-19 Assessment & Plan: ++ (7) Pressure ulcer Assessment & Plan: Pt presented on admission with multiple Pressure injuries.DTPI noted to R Buttocks (L)3.8cm x (W)3.4cm. Base of wound is purpuric ,fluctuant with surrounding maroon and indurated borders. DTPI Upper L Buttocks(L)5.5cm x (W)4cm. Base of wound is maroon and indurated. Borders are irregular. Non-Blanchable erythema without induration/fluctuance L lower buttocks(L)4cm x ( W)7cm. R and L heels are soft but blanchable. Erosion noted at peristomal GT site. Site is erythematous and excoriated. Small amt. sanguineous exudate. Tx.Plan: Apply Moisture Barrier Paste to Sacrum, R and L Buttocks. Cover each area with Optifoam drsg. Change every 3 days and prn. Apply Moisture Barrier Paste to R and L Ischial tuberosities with each incontinence care. Apply Cavilon Skin Barrier to both heels. Cover each heel and malleoli with Optifoam drsg. Change every 7 days and prn. Reposition at least every 2hours or as tolerated. Off-load heels with pillow. APM/DARIN Mattress overlay. Apply Zinc Oxide Paste TID to GT site. Leave open to Air. (8) Dementia (9) CVA (cerebral vascular accident) (10) T2DM (type 2 diabetes mellitus) (11) Gastrostomy present (12) COVID-19 (13) Rapid atrial fibrillation Paul Garcia May 22, 2020 16:53
--- NOTE | 2020-05-22 19:00 | NUR ---
HAND-OFF: Report given to jo ann perez
--- NOTE | 2020-05-22 19:15 | NUR ---
NURSE NOTES: SBAR received from Odalis RUIZ. Patient is awake, non-verbal and slightly obtunded. Patients has right arm weakness 0/5 strength due to Hx of CVA. Left side upper extremity is 1-3/5. Patient is orally intubated 7.5/23cm at the lower lip line. SIMV10, PS10, FiO2 of 40% an peep of 5. Patient is currently tolerating Vent settings. SpO2 is 100% and RR are 16, Blood pressure is 103/63 while on 4mcg/min of Levophed. Patient has a dry and clean dressing at abdomen site of an removal of prior GT. Currently has NGT at 60cm laxmi infusing 1.2 at 60ml/hr. Multiple skin alterations noted. There is a right IJ TLC covered with a transparent clean and dry dressing that is infusing Levophed at 4mcg/min and NS at 75ml/hr and NS TKO at 10ml/hr. There is a Arauz catheter that is hanging below waist line with yellow colored urine and is properly anchored. There is a low airloss mattress underneath patient. All safety measures have been checked and are in place. Ventilator and suctioning safety measures checked, bed in lowest position and locked, Bed alarm engaged. Will continue to monitor.
--- NOTE | 2020-05-22 19:24 | NUR ---
NURSE NOTES: Dr. Diaz came by and rounded on patient. Informed Dr. Diaz that patient has been on pressors for a few days and that she has been difficult to take off pressors. Received orders for Midodrine 10mg TID and give Midodrine 10mg via NGT X 1 now.
[2020-05-22] MEDS ORDERED: Midodrine 10mg tab ORAL SCH (19:30)
--- NOTE | 2020-05-22 19:40 | Cardiac Electrophysiology PN ---
Assessment/Plan Assessment/Plan 1. [id number] myocardial infarction. Her troponin was 1.258,1.2,1.9, 3.4 and the down to 0.7 EKG does not show any acute ST-T wave abnormality and certainly no ST elevation. Due to septic shock, DCCV and Renal failure. The echocardiogram had poor windows. 2. PAF with RVR. S/P DCCV 3 times No more fib or accelerated junctional rhythm. Can not use beta-ramakrishna or calcium-channel ramakrishna as the patient is still on Levophed. Loaded with digoxin and dig level is 1.6 3. Septic shock. On Levophed 4 mcg as well as broad-spectrum antibiotic 4. Severe hypernatremia with sodium of 174, BUN of 131, creatinine 2.7 due to dehydration. Sodium is 155 with BUN of 91 and creatinine of 1.9 with IV fluids. 5. Lactic acidosis, septic shock, on antibiotic. 6. Dysphagia, status post PEG placement. PEG came out on 05/18 and now getting NGT feeding PEG replacement pending 7. History of CVA and dementia. 8. Respiratory failure, currently on the ventilator at 30% FiO2. KIMMY RN Subjective Subjective In ICU in SR with no atrial fib or Junctional tach. Levophed was increased to 4 Mcg on the Vent 40% Fio2 In Covin isolation. PEG came out on 05/18 and now getting NGT feeding Objective Last 24 Hour Vital Signs Date Time Temp Pulse Resp B/P (MAP) Pulse Ox O2 Delivery O2 Flow Rate FiO2 05/22/20 18:58 74 19 40 05/22/20 17:30 72 17 96/57 (70) 100 05/22/20 17:21 72 17 103/58 (73) 100 05/22/20 17:15 72 18 88/53 (65) 100 05/22/20 17:00 70 14 96/55 (69) 100 05/22/20 16:45 72 16 92/57 (69) 100 05/22/20 16:30 72 17 95/51 (66) 100 05/22/20 16:15 72 16 94/52 (66) 99 05/22/20 16:00 Mechanical Ventilator 05/22/20 16:00 98.8 71 18 88/50 (63) 99 05/22/20 15:45 73 17 94/53 (67) 99 05/22/20 15:30 73 17 94/52 (66) 99 05/22/20 15:23 71 19 114/61 (78) 100 05/22/20 15:15 70 14 80/47 (58) 100 05/22/20 15:09 70 14 40 05/22/20 15:00 71 15 89/50 (63) 100 05/22/20 14:45 72 15 86/48 (61) 100 05/22/20 14:30 72 15 96/52 (67) 100 05/22/20 14:15 71 13 97/52 (67) 100 05/22/20 14:00 71 14 96/49 (65) 100 05/22/20 13:15 67 14 100/55 (70) 100 05/22/20 13:00 71 15 108/65 (79) 100 05/22/20 12:45 68 13 101/58 (72) 100 05/22/20 12:30 68 14 99/58 (72) 100 05/22/20 12:15 40 05/22/20 12:15 69 20 99/61 (74) 100 05/22/20 12:14 70 12 40 05/22/20 12:14 40 05/22/20 12:00 68 17 99/51 (67) 100 05/22/20 12:00 Mechanical Ventilator 05/22/20 11:45 70 16 108/56 (73) 100 05/22/20 11:30 70 16 103/59 (74) 100 05/22/20 11:15 68 18 98/57 (71) 100 05/22/20 11:00 69 18 97/57 (70) 100 05/22/20 10:45 69 15 104/59 (74) 100 05/22/20 10:30 70 15 104/58 (73) 100 05/22/20 10:15 70 14 107/57 (74) 100 05/22/20 10:00 67 19 98/52 (67) 100 05/22/20 09:45 66 17 97/53 (68) 100 05/22/20 09:30 69 13 102/55 (71) 100 05/22/20 09:15 66 19 94/52 (66) 100 05/22/20 09:00 98.6 65 19 97/50 (66) 100 05/22/20 08:28 100 05/22/20 08:10 40 05/22/20 08:00 Mechanical Ventilator 05/22/20 08:00 64 13 88/48 (61) 99 05/22/20 07:14 65 12 40 40 05/22/20 07:00 63 12 86/50 (62) 99 05/22/20 07:00 86/50 05/22/20 06:39 61 14 05/22/20 06:30 61 13 91/51 (64) 100 05/22/20 06:00 92/49 05/22/20 06:00 62 14 111/55 (73) 100 05/22/20 05:45 58 11 93/47 (62) 100 05/22/20 05:45 93/47 05/22/20 05:38 59 11 98/52 (67) 100 05/22/20 05:30 58 12 84/44 (57) 100 05/22/20 05:15 58 12 93/49 (64) 100 05/22/20 05:00 89/51 05/22/20 05:00 59 11 89/51 (64) 100 05/22/20 04:30 59 11 90/51 (64) 100 05/22/20 04:00 85 05/22/20 04:00 99.5 62 11 93/53 (66) 100 05/22/20 04:00 91/48 05/22/20 04:00 Mechanical Ventilator 05/22/20 04:00 40 05/22/20 03:30 63 15 96/51 (66) 96 05/22/20 03:00 82/47 05/22/20 03:00 63 10 84/47 (59) 94 05/22/20 02:44 65 13 40 05/22/20 02:30 69 18 91/47 (62) 94 05/22/20 02:00 91/52 05/22/20 01:30 71 19 98/49 (65) 100 05/22/20 01:00 81/49 05/22/20 01:00 73 20 113/74 (87) 100 05/22/20 00:30 72 18 88/51 (63) 99 05/22/20 00:00 99.8 69 17 92/48 (63) 97 05/22/20 00:00 40 05/22/20 00:00 92/48 05/22/20 00:00 Mechanical Ventilator 05/22/20 00:00 71 05/21/20 23:30 74 16 96/57 (70) 98 05/21/20 23:00 66 17 100/58 (72) 100 05/21/20 23:00 100/58 05/21/20 22:57 64 11 40 05/21/20 22:30 69 17 96/53 (67) 99 05/21/20 22:00 64 22 93/49 (64) 96 05/21/20 22:00 93/43 05/21/20 21:30 68 25 89/49 (62) 98 05/21/20 21:00 72 19 89/43 (58) 86 05/21/20 21:00 89/43 05/21/20 20:45 77 29 103/51 (68) 91 05/21/20 20:30 77 25 102/50 (67) 98 05/21/20 20:15 79 29 112/56 (74) 99 05/21/20 20:14 79 32 114/55 (74) 100 05/21/20 20:00 40 05/21/20 20:00 81 05/21/20 20:00 126/65 05/21/20 20:00 Mechanical Ventilator 05/21/20 20:00 99.5 83 19 126/65 (85) 100 05/21/20 19:45 80 25 118/66 (83) 100 Intake and Output 05/21/20 05/22/20 19:00 07:00 Intake Total 1677.47 ml 1722.50 ml Output Total 455 ml 640 ml Balance 1222.47 ml 1082.50 ml Free Water 120 ml IV Total 927.47 ml 882.50 ml Tube Feeding 720 ml 720 ml Other 30 ml Output Urine Total 455 ml 640 ml # Bowel Movements 2 Laboratory Tests Test 05/21/20 19:52 05/21/20 23:18 05/22/20 04:30 05/22/20 05:48 POC Whole Blood Glucose Pending Pending Pending White Blood Count 13.9 K/UL (4.8-10.8) H Red Blood Count 2.87 M/UL (4.20-5.40) L Hemoglobin 8.7 G/DL (12.0-16.0) L Hematocrit 26.0 % (37.0-47.0) L Mean Corpuscular Volume 91 FL (80-99) Mean Corpuscular Hemoglobin 30.4 PG (27.0-31.0) Mean Corpuscular Hemoglobin Concent 33.5 G/DL (32.0-36.0) Red Cell Distribution Width 13.2 % (11.6-14.8) Platelet Count 172 K/UL (150-450) Mean Platelet Volume 10.7 FL (6.5-10.1) H Neutrophils (%) (Auto) % (45.0-75.0) Lymphocytes (%) (Auto) % (20.0-45.0) Monocytes (%) (Auto) % (1.0-10.0) Eosinophils (%) (Auto) % (0.0-3.0) Basophils (%) (Auto) % (0.0-2.0) Differential Total Cells Counted 100 Neutrophils % (Manual) 97 % (45-75) H Lymphocytes % (Manual) 2 % (20-45) L Monocytes % (Manual) 1 % (1-10) Eosinophils % (Manual) 0 % (0-3) Basophils % (Manual) 0 % (0-2) Band Neutrophils 0 % (0-8) Platelet Estimate Adequate Platelet Morphology Normal Hypochromasia 2+ Anisocytosis 1+ Sodium Level 144 MMOL/L (136-145) Potassium Level 4.4 MMOL/L (3.5-5.1) Chloride Level 112 MMOL/L (98-107) H Carbon Dioxide Level 22 MMOL/L (21-32) Anion Gap 10 mmol/L (5-15) Blood Urea Nitrogen 45 mg/dL (7-18) H Creatinine 0.9 MG/DL (0.55-1.30) Estimat Glomerular Filtration Rate > 60 mL/min (>60) Glucose Level 108 MG/DL (74-106) H Calcium Level 8.2 MG/DL (8.5-10.1) L Total Bilirubin 0.3 MG/DL (0.2-1.0) Aspartate Amino Transf (AST/SGOT) 44 U/L (15-37) H Alanine Aminotransferase (ALT/SGPT) 51 U/L (12-78) Alkaline Phosphatase 41 U/L (46-116) L Total Protein 4.6 G/DL (6.4-8.2) L Albumin 1.5 G/DL (3.4-5.0) L Globulin 3.1 g/dL Albumin/Globulin Ratio 0.5 (1.0-2.7) L Test 05/22/20 12:59 POC Whole Blood Glucose 149 MG/DL (74-106) H Microbiology Date/Time Source Procedure Growth Status 05/20/20 04:00 Nasal Nares MRSA Culture - Final NO METHICILLIN RESISTANT STAPH AUREUS... Complete 05/20/20 04:00 Rectum - Final NO CARBAPENEM-RESISTANT ENTEROBACTERI... Complete 05/20/20 04:00 Rectum VRE Culture - Final Enterococcus Faecalis - Vre Complete Objective HEAD AND NECK: Show no JVD. She is orally intubated. LUNGS: Coarse rhonchi. CARDIOVASCULAR: Shows regular S1 and S2 with no gallop. ABDOMEN: Soft. Status post G-tube. EXTREMITIES: Show no pitting edema. Norman Morillo MD May 22, 2020 19:40
[2020-05-22] MEDS: Dyna-Hex 2% Top Sol 2oz TOPIC SCH (20:00)
--- NOTE | 2020-05-22 20:00 | NUR ---
NURSE NOTES: Patient physical assessment performed; patient noted to have axillary temperature of 99.5F. Patient was given a cooling bath with CHG soap. Oral care was performed and pt was also suctioned. Ventilator and other airway visual checks were done. NGT still remains intact and old GT site dressing remains dry and intact. Passive range of motion was offered and performed per patients tolerance. Patient is tolerating current SIMV ventilator settings with PS of 10, patient is making appropriate tidal volumes. Spo2 ranging above 99%. Midodrine 10mg PO given. Pulses checked and equal bilaterally, mild generalized edema throughout body. NSR on the monitor, blood pressure within normotensive pressures with current pressor rate. Will continue to monitor.
--- NOTE | 2020-05-22 22:00 | NUR ---
NURSE NOTES: Patient remains awake, non-verbal and slightly obtunded. Patient neuro status remains unchanged. Patient remains on Levophed at 2mcg/mins. Safety measures checked. Will continue to monitor.
[2020-05-22] MEDS ORDERED: NS 275ml ONE (22:44)
[2020-05-22] MEDS ORDERED: Tubing IV Secondary IV ONE (22:44)
[2020-05-22] MEDS ORDERED: 1/2 NS 1000ml IV ONE (22:44)
--- NOTE | 2020-05-22 23:00 | NUR ---
NURSE NOTES: Levophed held blood pressure remains stable, will continue to monitor.
[2020-05-23] VITALS (36 sets, daily range): BP systolic 101–138; BP diastolic 48–65
--- NOTE | 2020-05-23 | NUR ---
NURSE NOTES: Repositioned patient and provided oral care and suctioning. Patient was repositioned for comfort and for skin integumentary precautions. Pressors remains held, blood pressure remain stable. Tolerating ventilator settings, ventilator and airway safety checked performed. Glucose noted to be 114, no coverage needed. Patient remains afebrile at 98.9 (ax).
[2020-05-23] MEDS: Phenylephrine 100 MG in D5W 240 ML IV SCH (00:15)
[2020-05-23] MEDS: Vasopressin 100 UNITS in NS 95 ML IV SCH (00:15)
--- NOTE | 2020-05-23 02:00 | NUR ---
NURSE NOTES: Repositioned patient and provided oral care and suctioning. Patient was repositioned for comfort and for skin integumentary precautions. Pressors remain off and so far BP is staying within normotensive ranges. Tolerating ventilator settings, ventilator and airway safety checks performed. Neuro status remains the same.
[2020-05-23] MEDS: Meropenem 1 GM in NS 55 ML IVPB SCH ×2 (02:26→13:05)
--- NOTE | 2020-05-23 04:00 | NUR ---
NURSE NOTES: Patient was provided with a sponge bath and blood drawn for AM labs. Levophed remains off and blood pressure have remained stable. Repositioned patient for comfort and provided oral hygiene and suctioning. Ventilator and airway safety checks performed. Tolerating ventilator settings. SpO2 is 100%, pulses present and NSR on the monitor.
[2020-05-23] MEDS: NovoLOG Insulin Flexpen SUBQ SCH ×5 (05:39→23:54)
--- NOTE | 2020-05-23 07:08 | General Progress Note ---
Assessment/Plan Problem List: (1) COVID-19 ICD Codes: U07.1 - COVID-19 SNOMED: 279079088 (2) Elevated d-dimer ICD Codes: R79.89 - Other specified abnormal findings of blood chemistry SNOMED: 120288480 (3) Rapid atrial fibrillation ICD Codes: I48.91 - Unspecified atrial fibrillation SNOMED: 436016770 (4) Sepsis ICD Codes: A41.9 - Sepsis, unspecified organism SNOMED: 23610720 (5) Respiratory failure ICD Codes: J96.90 - Respiratory failure, unspecified, unspecified whether with hypoxia or hypercapnia SNOMED: 905728758 (6) Renal failure ICD Codes: N19 - Unspecified kidney failure SNOMED: 55068057 (7) Hypernatremia ICD Codes: E87.0 - Hyperosmolality and hypernatremia SNOMED: 149287605 (8) T2DM (type 2 diabetes mellitus) ICD Codes: E11.9 - Type 2 diabetes mellitus without complications SNOMED: 37588551 Status: unchanged Assessment/Plan: no need for basal insulin continue Novolog sliding scale every 4 hours hypoglycemia protocol in order Subjective ROS Limited/Unobtainable: Yes Allergies: Coded Allergies: DIVALPROEX SODIUM (Verified Allergy, Unknown, 05/14/20) PENICILLINS (Verified Allergy, Unknown, 05/14/20) Subjective events noted and interval notes reviewed evaluation by Dr Luu over the weekend Item Value Date Time Bedside Blood Glucose 103 mg/dl 05/23/20 0600 Bedside Blood Glucose 114 mg/dl 05/23/20 0000 Bedside Blood Glucose 154 mg/dl H 05/22/20 2057 Bedside Blood Glucose 188 mg/dl H 05/22/20 1812 Bedside Blood Glucose 149 mg/dl H 05/22/20 1310 Bedside Blood Glucose 114 mg/dl 05/22/20 0600 Bedside Blood Glucose 103 mg/dl 05/22/20 0000 Objective Last 24 Hour Vital Signs Date Time Temp Pulse Resp B/P (MAP) Pulse Ox O2 Delivery O2 Flow Rate FiO2 05/23/20 06:29 62 12 05/23/20 06:00 60 13 105/50 (68) 99 05/23/20 05:00 59 12 104/53 (70) 98 05/23/20 04:00 59 15 105/53 (70) 98 05/23/20 04:00 40 05/23/20 04:00 Mechanical Ventilator 05/23/20 03:39 63 05/23/20 03:10 61 10 40 05/23/20 03:00 56 10 123/56 (78) 100 05/23/20 02:00 60 14 119/53 (75) 100 05/23/20 01:00 61 12 120/57 (78) 100 05/23/20 00:15 61 120/57 05/23/20 00:00 98.9 62 15 108/54 (72) 99 05/23/20 00:00 40 05/23/20 00:00 Mechanical Ventilator 05/22/20 23:45 66 14 122/60 (80) 99 05/22/20 23:30 61 14 120/59 (79) 99 05/22/20 23:15 62 15 115/61 (79) 99 05/22/20 23:14 62 05/22/20 23:00 61 12 114/56 (75) 99 05/22/20 23:00 114/56 05/22/20 22:45 63 13 104/56 (72) 99 05/22/20 22:45 64 13 40 05/22/20 22:30 67 14 103/54 (70) 98 05/22/20 22:15 69 16 105/58 (74) 99 05/22/20 22:00 68 12 105/56 (72) 99 05/22/20 22:00 105/56 05/22/20 21:45 71 14 106/59 (75) 98 05/22/20 21:30 73 14 108/57 (74) 99 05/22/20 21:15 73 16 125/63 (83) 99 05/22/20 21:14 73 16 128/66 (86) 99 05/22/20 21:03 74 15 112/61 (78) 100 05/22/20 21:00 106/62 05/22/20 21:00 74 16 106/62 (77) 100 05/22/20 20:45 75 16 102/58 (73) 99 05/22/20 20:30 74 15 100/62 (75) 100 05/22/20 20:15 74 13 109/57 (74) 100 05/22/20 20:00 69 05/22/20 20:00 Mechanical Ventilator 05/22/20 20:00 99.5 76 16 99/57 (71) 100 05/22/20 20:00 99/57 05/22/20 20:00 40 05/22/20 19:45 74 15 103/63 (76) 100 05/22/20 19:30 73 17 109/59 (76) 100 05/22/20 19:15 72 17 103/63 (76) 100 05/22/20 19:00 71 16 97/55 (69) 100 05/22/20 18:58 74 19 40 05/22/20 18:45 71 19 100/58 (72) 100 05/22/20 18:30 71 15 98/57 (71) 100 05/22/20 18:15 72 15 101/59 (73) 100 05/22/20 18:00 71 15 103/51 (68) 100 05/22/20 17:30 72 17 96/57 (70) 100 05/22/20 17:21 72 17 103/58 (73) 100 05/22/20 17:15 72 18 88/53 (65) 100 05/22/20 17:00 70 14 96/55 (69) 100 05/22/20 16:45 72 16 92/57 (69) 100 05/22/20 16:30 72 17 95/51 (66) 100 05/22/20 16:15 72 16 94/52 (66) 99 05/22/20 16:00 Mechanical Ventilator 05/22/20 16:00 98.8 71 18 88/50 (63) 99 05/22/20 16:00 71 05/22/20 15:45 73 17 94/53 (67) 99 05/22/20 15:30 73 17 94/52 (66) 99 05/22/20 15:23 71 19 114/61 (78) 100 05/22/20 15:15 70 14 80/47 (58) 100 05/22/20 15:09 70 14 40 05/22/20 15:00 71 15 89/50 (63) 100 05/22/20 14:45 72 15 86/48 (61) 100 05/22/20 14:30 72 15 96/52 (67) 100 05/22/20 14:15 71 13 97/52 (67) 100 05/22/20 14:00 71 14 96/49 (65) 100 05/22/20 13:15 67 14 100/55 (70) 100 05/22/20 13:00 71 15 108/65 (79) 100 05/22/20 12:45 68 13 101/58 (72) 100 05/22/20 12:30 68 14 99/58 (72) 100 05/22/20 12:15 40 05/22/20 12:15 69 20 99/61 (74) 100 05/22/20 12:14 70 12 40 05/22/20 12:14 40 05/22/20 12:00 68 17 99/51 (67) 100 05/22/20 12:00 80 05/22/20 12:00 Mechanical Ventilator 05/22/20 11:45 70 16 108/56 (73) 100 05/22/20 11:30 70 16 103/59 (74) 100 05/22/20 11:15 68 18 98/57 (71) 100 05/22/20 11:00 69 18 97/57 (70) 100 05/22/20 10:45 69 15 104/59 (74) 100 05/22/20 10:30 70 15 104/58 (73) 100 05/22/20 10:15 70 14 107/57 (74) 100 05/22/20 10:00 67 19 98/52 (67) 100 05/22/20 09:45 66 17 97/53 (68) 100 05/22/20 09:30 69 13 102/55 (71) 100 05/22/20 09:15 66 19 94/52 (66) 100 05/22/20 09:00 98.6 65 19 97/50 (66) 100 05/22/20 08:28 100 05/22/20 08:10 40 05/22/20 08:00 Mechanical Ventilator 05/22/20 08:00 64 13 88/48 (61) 99 05/22/20 08:00 78 05/22/20 07:14 65 12 40 40 Intake and Output 05/22/20 05/23/20 19:00 07:00 Intake Total 1842.5 ml 1578.12 ml Output Total 535 ml 715 ml Balance 1307.5 ml 863.12 ml Free Water 155 ml IV Total 1092.5 ml 763.12 ml Tube Feeding 720 ml 660 ml Other 30 ml Output Urine Total 535 ml 715 ml Laboratory Tests 05/22/20 12:59: POC Whole Blood Glucose 149H 05/22/20 18:11: POC Whole Blood Glucose [Pending] 05/23/20 04:40: White Blood Count [Pending], Red Blood Count [Pending], Hemoglobin [Pending], Hematocrit [Pending], Mean Corpuscular Volume [Pending], Mean Corpuscular Hemoglobin [Pending], Mean Corpuscular Hemoglobin Concent [Pending], Red Cell Distribution Width [Pending], Platelet Count [Pending], Mean Platelet Volume [ Pending], Neutrophils (%) (Auto) [Pending], Lymphocytes (%) (Auto) [Pending], Monocytes (%) (Auto) [Pending], Eosinophils (%) (Auto) [Pending], Basophils (%) (Auto) [Pending], Sodium Level [Pending], Potassium Level [Pending], Chloride Level [Pending], Carbon Dioxide Level [Pending], Blood Urea Nitrogen [Pending], Creatinine [Pending], Estimat Glomerular Filtration Rate [Pending], Glucose Level [Pending], Calcium Level [Pending] Height (Feet): 5 Height (Inches): 4.00 Weight (Pounds): 149 Objective Current Medications Medications (Trade) Dose Ordered Sig/Morgan Route PRN Reason Start Time Stop Time Status Last Admin Dose Admin Acetaminophen (Tylenol) 650 mg Q4H PRN GT Temp >100.5 05/16/20 06:15 06/15/20 06:14 05/21/20 20:01 Acetaminophen (Tylenol) 650 mg Q4H PRN RECTAL Temp >100.5 05/16/20 19:45 06/15/20 19:44 05/17/20 18:30 Chlorhexidine Gluconate (Lilliam-Hex 2%) 1 applic DAILY@1999 TOPIC 05/15/20 20:00 08/13/20 19:59 05/22/20 20:00 Dexamethasone Sodium Phosphate (Decadron 10mg/ ml Inj) 6 mg DAILY IV 05/16/20 09:00 05/24/20 08:59 05/22/20 09:49 Dextrose (Dextrose 50%) 25 ml Q30M PRN IV Hypoglycemia 05/22/20 00:00 08/20/20 00:00 Dextrose (Dextrose 50%) 50 ml Q30M PRN IV Hypoglycemia 05/22/20 00:00 08/20/20 00:00 Insulin Aspart (NovoLOG) EVERY 6 HOURS SUBQ 05/22/20 06:00 08/20/20 05:59 05/22/20 18:00 Insulin Detemir (Levemir) 10 units Q12HR SUBQ 05/22/20 09:00 08/20/20 08:59 05/22/20 20:57 Meropenem 1 gm/ Sodium Chloride 55 ml @ 110 mls/hr Q12HR@0200,1400 IVPB 05/17/20 14:00 05/23/20 23:59 05/23/20 02:26 Midodrine (Pro-Amatine) 10 mg TID ORAL 05/23/20 09:00 08/21/20 08:59 Norepinephrine Bitartrate 8 mg/ Dextrose 250 ml @ 0 mls/hr Q24H IV 05/20/20 18:00 06/19/20 17:59 05/22/20 05:45 Pantoprazole (Protonix) 40 mg DAILY IV 05/15/20 09:00 06/14/20 08:59 05/22/20 09:48 Phenylephrine HCl 100 mg/Dextrose 250 ml @ 0 mls/hr Q24H IV 05/15/20 00:15 06/14/20 00:14 05/15/20 13:28 Sodium Chloride 1,000 ml @ 75 mls/hr [id number] IV 05/15/20 06:45 06/14/20 06:44 05/23/20 05:39 Vasopressin 100 units/Sodium Chloride 100 ml @ 0 mls/hr Q24H IV 05/15/20 00:15 06/14/20 00:14 Zinc Oxide (Zinc Oxide) 1 applic TIDPRN PRN TOPIC Abdominal cramps 05/20/20 13:00 08/18/20 12:59 Chau Shelley MD May 23, 2020 07:08
--- NOTE | 2020-05-23 07:15 | Consultation ---
DATE OF CONSULTATION: 05/21/2020 ENDOCRINOLOGY CONSULTATION CONSULTING PHYSICIAN: Teddy Luu MD REFERRING PHYSICIAN: Jessica Wade MD REASON FOR CONSULTATION: I was asked to see this 70-year-old female, referred by Dr. Jessica Wade in Endocrinology consultation of management of diabetes mellitus out of control. PERTINENT HISTORY:Patient is on glucerna 1.5 30 cc/hr per GT and Levemir 10u sc Q12hrs FAMILY HISTORY: Unable to be determined. PERSONAL HISTORY: Unable to be determined. REVIEW OF SYSTEMS: Unable to be determined. PHYSICAL EXAMINATION: GENERAL: In no acute distress. VITAL SIGNS: Blood pressure 170/58, pulse 69, respiratory rate 18, temperature 98. HEAD AND NECK: Unremarkable. No jugular venous distention. LUNGS: Decreased breath sounds. The patient is intubated. HEART: regular_. ABDOMEN: Soft. Bowel sounds present. EXTREMITIES: No edema. NEUROLOGIC: Cranial nerves II through XII are grossly intact with toes downgoing to plantar stimulation. LABORATORY DATA: Glucose 270 mg%. ASSESSMENT Diabetes Mellitus Type 2 out of control Malnutrtion PLANS:Continue glucerna 1.5 30 cc/hr pe rGT and Levemuir 10u scf Q12hrs with accuchecks Q6hr with moderate sliding scale Novolog. Teddy Luu M.D. DR: Barbara JOB#: [id number] CC: NORBERT
[2020-05-23 07:16] LABS: ANION GAP 9 mmol/L (5-15); BLOOD UREA NITROGEN 41 mg/dL (7-18); CALCIUM 7.8 MG/DL (8.5-10.1); CARBON DIOXIDE 25 MMOL/L (21-32); CHLORIDE 112 MMOL/L (98-107); CREATININE 0.7 MG/DL (0.55-1.30); POTASSIUM 4.2 MMOL/L (3.5-5.1); SODIUM 146 MMOL/L (136-145)
[2020-05-23 07:23] LABS: HEMATOCRIT 24.9 % (37.0-47.0); HEMOGLOBIN 8.5 G/DL (12.0-16.0); MEAN CORPUSCULAR VOLUME 90 FL (80-99); PLATELET COUNT 195 K/UL (150-450); RED BLOOD COUNT 2.76 M/UL (4.20-5.40); RED CELL DISTRIBUTION WIDTH 12.9 % (11.6-14.8); WHITE BLOOD COUNT 12.2 K/UL (4.8-10.8)
--- NOTE | 2020-05-23 07:30 | NUR ---
NURSE NOTES: Pt received from SARA Urrutia. Pt is asleep, opens eyes to shaking but not to auditory stimuli, gag reflex is hypoactive, pt does not follow commands, pupils are equal and round 3 mm bilaterally with sluggish rxn to light. Pt noted in SR to well services operator. radial and dorsalis pedis pulses 2+. non-pitting edema noted to both hands. Pt is mechanically ventilated with a 7.5 ETT noted 23 cm at the lip line with following settings: AC 16 TV 500 FiO2 40% Peep 5. All lung lobes sound diminished upon auscultation. Abd is flat, soft, and non-tender, with active bowel sounds to all quadrants. Pt has an right nares NGT running Glucerna 1.2 at 60 cc/hr. F/C noted draining yellow, clear urine. Skin alterations noted. Pt on DARIN mattress. Pt has a RIJ TLC with dry and intact dressing running 1/2 NS at 75 cc/hr. Pt also observed with left soft wrist restraint. Skin to left wrist is intact without redness. left radial pulse is palpable. Bed in lowest position, alarm on, side rails up x 2. Call light within reach. Will continue to monitor pt. Addendum: 05/23/20 at 1454 by Marion Graf RN Amendment: NURSE NOTES: Pt received from SARA Urrutia. Pt is asleep, opens eyes to shaking but not to auditory stimuli, gag reflex is hypoactive, pt does not follow commands, pupils are equal and round 3 mm bilaterally with sluggish rxn to light. Pt noted in SR to well services operator. radial and dorsalis pedis pulses 2+. non-pitting edema noted to both hands. Pt is mechanically ventilated with a 7.5 ETT noted 23 cm at the lip line with following settings: SIMV 10 PS 10 FiO2 40% Peep 5. All lung lobes sound diminished upon auscultation. Abd is flat, soft, and non-tender, with active bowel sounds to all quadrants. Pt has an right nares NGT running Glucerna 1.2 at 60 cc/hr. F/C noted draining yellow, clear urine. Skin alterations noted. Pt on DARIN mattress. Pt has a RIJ TLC with dry and intact dressing running 1/2 NS at 75 cc/hr. Pt also observed with left soft wrist restraint. Skin to left wrist is intact without redness. left radial pulse is palpable. Bed in lowest position, alarm on, side rails up x 2. Call light within reach. Will continue to monitor pt.
--- NOTE | 2020-05-23 08:00 | NUR ---
NURSE NOTES: Pt repositioned, oral care provided.
--- NOTE | 2020-05-23 08:23 | NUR ---
NURSE NOTES: Weaning tiral initiated per Ole, RT with CPAP 5, PS 8, FiO2 40%.
--- NOTE | 2020-05-23 08:23 | NUR ---
RESPIRATORY NOTES RESPIRATORY NOTES PT placed on SBT - CPAP 5, PS 8, 40%. PT shows no signs of respiratory distress. RSBI 30, SaO2 99%, HR 59, RR 17, Vt 607. RN Marion becker. Will continue to monitor.
[2020-05-23] MEDS: Levemir Flexpen SUBQ SCH ×2 (09:00→21:52)
[2020-05-23] MEDS: Midodrine 10mg tab ORAL SCH ×3 (09:36→18:03)
[2020-05-23] MEDS: dexAMETHasone 10mg/ml Inj IV SCH (09:36)
[2020-05-23] MEDS: Pantoprazole Inj IV SCH (09:36)
--- NOTE | 2020-05-23 10:00 | NUR ---
NURSE NOTES: Pt repositioned. Remains on CPAP trial without distress. Will continue to monitor.
--- NOTE | 2020-05-23 10:19 | General Progress Note ---
Assessment/Plan Status: unchanged Assessment/Plan: 1. History of CVA. 2. Dementia. 3. Dysphagia with G-tube. 4. Cachexia. 5. Diabetes. 6. Pressure ulcers. 7. Hypothyroidism. 8. Legal blindness. 9. Currently COVID positive. GT has trice removed still some drainage from the GT site NGTF GT replacement when more stable Subjective ROS Limited/Unobtainable: No Allergies: Coded Allergies: DIVALPROEX SODIUM (Verified Allergy, Unknown, 05/14/20) PENICILLINS (Verified Allergy, Unknown, 05/14/20) Objective Last 24 Hour Vital Signs Date Time Temp Pulse Resp B/P (MAP) Pulse Ox O2 Delivery O2 Flow Rate FiO2 05/23/20 08:23 40 05/23/20 08:23 59 17 40 05/23/20 08:00 40 05/23/20 06:45 61 17 40 05/23/20 06:29 62 12 05/23/20 06:00 60 13 105/50 (68) 99 05/23/20 05:00 59 12 104/53 (70) 98 05/23/20 04:00 59 15 105/53 (70) 98 05/23/20 04:00 40 05/23/20 04:00 Mechanical Ventilator 05/23/20 03:39 63 05/23/20 03:10 61 10 40 05/23/20 03:00 56 10 123/56 (78) 100 05/23/20 02:00 60 14 119/53 (75) 100 05/23/20 01:00 61 12 120/57 (78) 100 05/23/20 00:15 61 120/57 05/23/20 00:00 98.9 62 15 108/54 (72) 99 05/23/20 00:00 40 05/23/20 00:00 Mechanical Ventilator 05/22/20 23:45 66 14 122/60 (80) 99 05/22/20 23:30 61 14 120/59 (79) 99 05/22/20 23:15 62 15 115/61 (79) 99 05/22/20 23:14 62 05/22/20 23:00 61 12 114/56 (75) 99 05/22/20 23:00 114/56 05/22/20 22:45 63 13 104/56 (72) 99 05/22/20 22:45 64 13 40 05/22/20 22:30 67 14 103/54 (70) 98 05/22/20 22:15 69 16 105/58 (74) 99 05/22/20 22:00 68 12 105/56 (72) 99 05/22/20 22:00 105/56 05/22/20 21:45 71 14 106/59 (75) 98 05/22/20 21:30 73 14 108/57 (74) 99 05/22/20 21:15 73 16 125/63 (83) 99 05/22/20 21:14 73 16 128/66 (86) 99 05/22/20 21:03 74 15 112/61 (78) 100 05/22/20 21:00 106/62 05/22/20 21:00 74 16 106/62 (77) 100 05/22/20 20:45 75 16 102/58 (73) 99 05/22/20 20:30 74 15 100/62 (75) 100 05/22/20 20:15 74 13 109/57 (74) 100 05/22/20 20:00 69 05/22/20 20:00 Mechanical Ventilator 05/22/20 20:00 99.5 76 16 99/57 (71) 100 05/22/20 20:00 99/57 05/22/20 20:00 40 05/22/20 19:45 74 15 103/63 (76) 100 05/22/20 19:30 73 17 109/59 (76) 100 05/22/20 19:15 72 17 103/63 (76) 100 05/22/20 19:00 71 16 97/55 (69) 100 05/22/20 18:58 74 19 40 05/22/20 18:45 71 19 100/58 (72) 100 05/22/20 18:30 71 15 98/57 (71) 100 05/22/20 18:15 72 15 101/59 (73) 100 05/22/20 18:00 71 15 103/51 (68) 100 05/22/20 17:30 72 17 96/57 (70) 100 05/22/20 17:21 72 17 103/58 (73) 100 05/22/20 17:15 72 18 88/53 (65) 100 05/22/20 17:00 70 14 96/55 (69) 100 05/22/20 16:45 72 16 92/57 (69) 100 05/22/20 16:30 72 17 95/51 (66) 100 05/22/20 16:15 72 16 94/52 (66) 99 05/22/20 16:00 Mechanical Ventilator 05/22/20 16:00 98.8 71 18 88/50 (63) 99 05/22/20 16:00 71 05/22/20 15:45 73 17 94/53 (67) 99 05/22/20 15:30 73 17 94/52 (66) 99 05/22/20 15:23 71 19 114/61 (78) 100 05/22/20 15:15 70 14 80/47 (58) 100 05/22/20 15:09 70 14 40 05/22/20 15:00 71 15 89/50 (63) 100 05/22/20 14:45 72 15 86/48 (61) 100 05/22/20 14:30 72 15 96/52 (67) 100 05/22/20 14:15 71 13 97/52 (67) 100 05/22/20 14:00 71 14 96/49 (65) 100 05/22/20 13:15 67 14 100/55 (70) 100 05/22/20 13:00 71 15 108/65 (79) 100 05/22/20 12:45 68 13 101/58 (72) 100 05/22/20 12:30 68 14 99/58 (72) 100 05/22/20 12:15 40 05/22/20 12:15 69 20 99/61 (74) 100 05/22/20 12:14 70 12 40 05/22/20 12:14 40 05/22/20 12:00 68 17 99/51 (67) 100 05/22/20 12:00 80 05/22/20 12:00 Mechanical Ventilator 05/22/20 11:45 70 16 108/56 (73) 100 05/22/20 11:30 70 16 103/59 (74) 100 05/22/20 11:15 68 18 98/57 (71) 100 05/22/20 11:00 69 18 97/57 (70) 100 05/22/20 10:45 69 15 104/59 (74) 100 05/22/20 10:30 70 15 104/58 (73) 100 Intake and Output 05/22/20 05/23/20 19:00 07:00 Intake Total 1842.5 ml 1578.12 ml Output Total 535 ml 715 ml Balance 1307.5 ml 863.12 ml Free Water 155 ml IV Total 1092.5 ml 763.12 ml Tube Feeding 720 ml 660 ml Other 30 ml Output Urine Total 535 ml 715 ml Laboratory Tests 05/22/20 12:59: POC Whole Blood Glucose 149H 05/22/20 18:11: POC Whole Blood Glucose [Pending] 05/23/20 04:40: White Blood Count 12.2H, Red Blood Count 2.76L, Hemoglobin 8.5L, Hematocrit 24.9L, Mean Corpuscular Volume 90, Mean Corpuscular Hemoglobin 30.7, Mean Corpuscular Hemoglobin Concent 33.9, Red Cell Distribution Width 12.9, Platelet Count 195, Mean Platelet Volume 9.2, Neutrophils (%) (Auto) , Lymphocytes (%) ( Auto) , Monocytes (%) (Auto) , Eosinophils (%) (Auto) , Basophils (%) (Auto) , Differential Total Cells Counted 100, Neutrophils % (Manual) 90H, Lymphocytes % (Manual) 7L, Monocytes % (Manual) 3, Eosinophils % (Manual) 0, Basophils % ( Manual) 0, Band Neutrophils 0, Platelet Estimate Adequate, Platelet Morphology Normal, Hypochromasia 2+, Anisocytosis 1+, Sodium Level 146H, Potassium Level 4.2, Chloride Level 112H, Carbon Dioxide Level 25, Anion Gap 9, Blood Urea Nitrogen 41H, Creatinine 0.7, Estimat Glomerular Filtration Rate > 60, Glucose Level 86, Calcium Level 7.8L Height (Feet): 5 Height (Inches): 4.00 Weight (Pounds): 149 General Appearance: no apparent distress EENT: normal ENT inspection Neck: supple Cardiovascular: normal rate Respiratory/Chest: decreased breath sounds Abdomen: normal bowel sounds, non tender, soft Extremities: non-tender Jhon Matos MD May 23, 2020 10:19
--- NOTE | 2020-05-23 10:30 | NUR ---
NURSE NOTES: Pt seen by Dr Wade.
--- NOTE | 2020-05-23 10:41 | General Progress Note ---
Advance Care Planning Advance Care Planning Advance Care Planning Additional 30 minutes of non face to face time was spent in review of medical records, arrangement of care and discussion with consultants involved with care Date of Discussion: 05/23/20 A [id number] discussion with the next of kin regarding the patient's advanced care planning took place during this hospitalization on the above date. The discussion included the explanation and discussion of advance directives and associated forms/documents, as well as the patient's current code status. We also discussed at length the patient's medical conditions (both acute and chronic), general prognosis, treatment options, and goals of care. The following summarizes the discussion: Advance Care Planning/Goals of Care: - Will attempt to fill out an AD and/or POLST with the patient prior to discharge, if not already completed - Continue current evaluation and management of any acute and chronic medical issues - Will continue to support the patient/family - Will continue to discuss both short- and long-term goals of care DPOA-HC/Surrogate Decision Maker: None currently appointed Code Status: Full Code Advanced Care Planning Forms/Documents Completed: Deferred until later encounte A total of 31 minutes was spent on this discussion, including counseling, answering questions, and completing, if any, pertinent advanced care planning forms/documents. Time of note may not reflect time of encounter. Jaskaran Enriquez MD May 23, 2020 10:41
--- NOTE | 2020-05-23 10:54 | Pulmonology Progress Note ---
Subjective ROS Limited/Unobtainable: No Interval Events: Remains intubated; off levophed Constitutional: Reports: no symptoms HEENT: Repors: no symptoms Respiratory: Reports: no symptoms Cardiovascular: Reports: no symptoms Gastrointestinal/Abdominal: Reports: no symptoms Genitourinary: Reports: no symptoms Allergies: Coded Allergies: DIVALPROEX SODIUM (Verified Allergy, Unknown, 05/14/20) PENICILLINS (Verified Allergy, Unknown, 05/14/20) All Systems: reviewed and negative except above Objective Last 24 Hour Vital Signs Date Time Temp Pulse Resp B/P (MAP) Pulse Ox O2 Delivery O2 Flow Rate FiO2 05/23/20 10:00 66 18 117/62 (80) 98 05/23/20 09:00 62 17 105/49 (67) 98 05/23/20 08:23 40 05/23/20 08:23 59 17 40 05/23/20 08:00 98.3 59 14 101/48 (65) 99 05/23/20 08:00 40 05/23/20 07:00 62 14 108/54 (72) 99 05/23/20 06:45 61 17 40 05/23/20 06:29 62 12 05/23/20 06:00 60 13 105/50 (68) 99 05/23/20 05:00 59 12 104/53 (70) 98 05/23/20 04:00 59 15 105/53 (70) 98 05/23/20 04:00 40 05/23/20 04:00 Mechanical Ventilator 05/23/20 03:39 63 05/23/20 03:10 61 10 40 05/23/20 03:00 56 10 123/56 (78) 100 05/23/20 02:00 60 14 119/53 (75) 100 05/23/20 01:00 61 12 120/57 (78) 100 05/23/20 00:15 61 120/57 05/23/20 00:00 98.9 62 15 108/54 (72) 99 05/23/20 00:00 40 05/23/20 00:00 Mechanical Ventilator 05/22/20 23:45 66 14 122/60 (80) 99 05/22/20 23:30 61 14 120/59 (79) 99 05/22/20 23:15 62 15 115/61 (79) 99 05/22/20 23:14 62 9/13/20 23:00 61 12 114/56 (75) 99 05/22/20 23:00 114/56 05/22/20 22:45 63 13 104/56 (72) 99 05/22/20 22:45 64 13 40 05/22/20 22:30 67 14 103/54 (70) 98 05/22/20 22:15 69 16 105/58 (74) 99 05/22/20 22:00 68 12 105/56 (72) 99 05/22/20 22:00 105/56 05/22/20 21:45 71 14 106/59 (75) 98 05/22/20 21:30 73 14 108/57 (74) 99 05/22/20 21:15 73 16 125/63 (83) 99 05/22/20 21:14 73 16 128/66 (86) 99 05/22/20 21:03 74 15 112/61 (78) 100 05/22/20 21:00 106/62 05/22/20 21:00 74 16 106/62 (77) 100 05/22/20 20:45 75 16 102/58 (73) 99 05/22/20 20:30 74 15 100/62 (75) 100 05/22/20 20:15 74 13 109/57 (74) 100 05/22/20 20:00 69 05/22/20 20:00 Mechanical Ventilator 05/22/20 20:00 99.5 76 16 99/57 (71) 100 05/22/20 20:00 99/57 05/22/20 20:00 40 05/22/20 19:45 74 15 103/63 (76) 100 05/22/20 19:30 73 17 109/59 (76) 100 05/22/20 19:15 72 17 103/63 (76) 100 05/22/20 19:00 71 16 97/55 (69) 100 05/22/20 18:58 74 19 40 05/22/20 18:45 71 19 100/58 (72) 100 05/22/20 18:30 71 15 98/57 (71) 100 05/22/20 18:15 72 15 101/59 (73) 100 05/22/20 18:00 71 15 103/51 (68) 100 05/22/20 17:30 72 17 96/57 (70) 100 05/22/20 17:21 72 17 103/58 (73) 100 05/22/20 17:15 72 18 88/53 (65) 100 05/22/20 17:00 70 14 96/55 (69) 100 05/22/20 16:45 72 16 92/57 (69) 100 05/22/20 16:30 72 17 95/51 (66) 100 05/22/20 16:15 72 16 94/52 (66) 99 05/22/20 16:00 Mechanical Ventilator 05/22/20 16:00 98.8 71 18 88/50 (63) 99 05/22/20 16:00 71 05/22/20 15:45 73 17 94/53 (67) 99 05/22/20 15:30 73 17 94/52 (66) 99 05/22/20 15:23 71 19 114/61 (78) 100 05/22/20 15:15 70 14 80/47 (58) 100 05/22/20 15:09 70 14 40 05/22/20 15:00 71 15 89/50 (63) 100 05/22/20 14:45 72 15 86/48 (61) 100 05/22/20 14:30 72 15 96/52 (67) 100 05/22/20 14:15 71 13 97/52 (67) 100 05/22/20 14:00 71 14 96/49 (65) 100 05/22/20 13:15 67 14 100/55 (70) 100 05/22/20 13:00 71 15 108/65 (79) 100 05/22/20 12:45 68 13 101/58 (72) 100 05/22/20 12:30 68 14 99/58 (72) 100 05/22/20 12:15 40 05/22/20 12:15 69 20 99/61 (74) 100 05/22/20 12:14 70 12 40 05/22/20 12:14 40 05/22/20 12:00 68 17 99/51 (67) 100 05/22/20 12:00 80 05/22/20 12:00 Mechanical Ventilator 05/22/20 11:45 70 16 108/56 (73) 100 05/22/20 11:30 70 16 103/59 (74) 100 05/22/20 11:15 68 18 98/57 (71) 100 05/22/20 11:00 69 18 97/57 (70) 100 Intake and Output 05/22/20 05/23/20 19:00 07:00 Intake Total 1842.5 ml 1578.12 ml Output Total 535 ml 715 ml Balance 1307.5 ml 863.12 ml Free Water 155 ml IV Total 1092.5 ml 763.12 ml Tube Feeding 720 ml 660 ml Other 30 ml Output Urine Total 535 ml 715 ml General Appearance: no acute distress HEENT: normocephalic Respiratory: chest wall non-tender, lungs clear Cardiovascular: normal peripheral pulses, normal rate Abdomen: normal bowel sounds Laboratory Tests 05/22/20 12:59: POC Whole Blood Glucose 149H 05/22/20 18:11: POC Whole Blood Glucose [Pending] 05/23/20 04:40: White Blood Count 12.2H, Red Blood Count 2.76L, Hemoglobin 8.5L, Hematocrit 24.9L, Mean Corpuscular Volume 90, Mean Corpuscular Hemoglobin 30.7, Mean Corpuscular Hemoglobin Concent 33.9, Red Cell Distribution Width 12.9, Platelet Count 195, Mean Platelet Volume 9.2, Neutrophils (%) (Auto) , Lymphocytes (%) ( Auto) , Monocytes (%) (Auto) , Eosinophils (%) (Auto) , Basophils (%) (Auto) , Differential Total Cells Counted 100, Neutrophils % (Manual) 90H, Lymphocytes % (Manual) 7L, Monocytes % (Manual) 3, Eosinophils % (Manual) 0, Basophils % ( Manual) 0, Band Neutrophils 0, Platelet Estimate Adequate, Platelet Morphology Normal, Hypochromasia 2+, Anisocytosis 1+, Sodium Level 146H, Potassium Level 4.2, Chloride Level 112H, Carbon Dioxide Level 25, Anion Gap 9, Blood Urea Nitrogen 41H, Creatinine 0.7, Estimat Glomerular Filtration Rate > 60, Glucose Level 86, Calcium Level 7.8L 05/23/20 10:23: Arterial Blood pH 7.462H, Arterial Blood Partial Pressure CO2 29.5L, Arterial Blood Partial Pressure O2 101.8H, Arterial Blood HCO3 20.6L, Arterial Blood Oxygen Saturation 96.6, Arterial Blood Base Excess -2.5L, Anthony Test Positive Current Medications Medications (Trade) Dose Ordered Sig/Morgan Route PRN Reason Start Time Stop Time Status Last Admin Dose Admin Acetaminophen (Tylenol) 650 mg Q4H PRN GT Temp >100.5 05/16/20 06:15 06/15/20 06:14 05/21/20 20:01 Acetaminophen (Tylenol) 650 mg Q4H PRN RECTAL Temp >100.5 05/16/20 19:45 06/15/20 19:44 05/17/20 18:30 Chlorhexidine Gluconate (Lilliam-Hex 2%) 1 applic DAILY@2000 TOPIC 05/15/20 20:00 08/13/20 19:59 05/22/20 20:00 Dexamethasone Sodium Phosphate (Decadron 10mg/ ml Inj) 6 mg DAILY IV 05/16/20 09:00 05/25/20 08:59 05/23/20 09:36 Dextrose (Dextrose 50%) 25 ml Q30M PRN IV Hypoglycemia 05/22/20 00:00 08/20/20 00:00 Dextrose (Dextrose 50%) 50 ml Q30M PRN IV Hypoglycemia 05/22/20 00:00 08/20/20 00:00 Insulin Aspart (NovoLOG) EVERY 6 HOURS SUBQ 05/22/20 06:00 08/20/20 05:59 05/22/20 18:00 Insulin Detemir (Levemir) 10 units Q12HR SUBQ 05/22/20 09:00 08/20/20 08:59 05/22/20 20:57 Meropenem 1 gm/ Sodium Chloride 55 ml @ 110 mls/hr Q12HR@0200,1400 IVPB 05/17/20 14:00 05/26/20 23:59 05/23/20 02:26 Midodrine (Pro-Amatine) 10 mg TID ORAL 05/23/20 09:00 08/21/20 08:59 05/23/20 09:36 Norepinephrine Bitartrate 8 mg/ Dextrose 250 ml @ 0 mls/hr Q24H IV 05/20/20 18:00 06/19/20 17:59 05/22/20 05:45 Pantoprazole (Protonix) 40 mg DAILY IV 05/15/20 09:00 06/14/20 08:59 05/23/20 09:36 Phenylephrine HCl 100 mg/Dextrose 250 ml @ 0 mls/hr Q24H IV 05/15/20 00:15 06/14/20 00:14 05/15/20 13:28 Sodium Chloride 1,000 ml @ 75 mls/hr [id number] IV 05/15/20 06:45 06/14/20 06:44 05/23/20 05:39 Vasopressin 100 units/Sodium Chloride 100 ml @ 0 mls/hr Q24H IV 05/15/20 00:15 06/14/20 00:14 Zinc Oxide (Zinc Oxide) 1 applic TIDPRN PRN TOPIC Abdominal cramps 05/20/20 13:00 08/18/20 12:59 Assessment/Plan Assessment/Plan IMPRESSION: 1. Acute respiratory failure. 2. Diabetes mellitus with hyperglycemia. 3. Septic shock. 4. Chronic G-tube. 5. Decubitus. 6. History of CHF. DISCUSSION: Continue fluids and antibiotics. Pressors. Continue AC mode till stable. Weaned well yesterday; will wean again today On 40% FiO2 DVT and GI prophylaxis. Respiratory precautions due to COVID-[address] Wade. I will follow carefully. Decadron continuing On pressors ABG better May place on T-piece due to poor mentation Jaskaran Enriquez M.D. Jaskaran Enriquez MD May 23, 2020 10:54
--- NOTE | 2020-05-23 11:00 | NUR ---
NURSE NOTES: Spoke with Dr Enriquez over phone - relayed most recent ABG. Received order to place pt on T-piece with FiO2 40%. RT notified.
--- NOTE | 2020-05-23 11:16 | NUR ---
NURSE NOTES: Pt seen by Dr Matos.
--- NOTE | 2020-05-23 11:38 | General Progress Note ---
Assessment/Plan Status: unchanged Assessment/Plan: 70-year-old female history of dementia, cachexia, dysphasia G-tube dependent feeding presents for evaluation of rapid heart rate and hypotension. # Septic with element of cardiogenic shock Etiology COVID 19 vs UTI vs bacteremia and NSTEMI Bcx POSITIVE WITH G+ Cocci and U cx 05/14 Proteus Mirabillis Continue Meropenem DAY 7 Vancomycin stopped stopped Cefepime Dexamethasone due to hypoxia # 8 Leukocytosis today most likely due to steroids improving 12K today # Acute respiratory failure Intubated and not ready to wean off ICU care appreciated Dr. Enriquez consulted Ventilator management per ICU-pulmonary FiO2 40 % today. wean as tolerated started today. # SVT vs A. Flutter s/p DC x 3 # NSTEMI HR is controlled in the 100 range and tolerating Digoxin Vasopressors in place Levophed at [address] Morillo requested and TTE requested and poor window. Will need repeat TTE when able to safely complete. Limited due to covid positive Troponin 3.4 now 0.7 EKG 05/17 NSR # AG metabolic acidosis Ddx lactic acidosis Improved. # Hyperglycemia r/o DKA ABG and Ketones ordered Endocrine consult with Dr. Shelley IV insulin gtt stopped and in SQ insulin coverage now # Hypernatremia Improving Monitor BMP IVF to 1/2 NS lower rate 75 cc hr continue # COVID 19 Positive on admission. Original infection > 15 days ago, do not qualify for Revdisimir or plasma On Dexamethasone Contact and droplet isolation # Dysphagia PEG REMOVED 05/16 Carlo Vargas consulted and appreciate follow up and final plan for PEG replacement PENDING. PEG site with dressing in place and OFF PEG for now. NGT placed and Tube feeds started 05/18 and being tolerated at 45 cc hr Glucerna 1.2 # Severe protein caloric malnutrition with Albumin 1.5 RD follow up # Thrombocytopenia Platelets down from 80 K to 64 K to 66 K ( OFF Heparin ) and UP to 84 K and now 160 K 05/17 dc heparin, use SCD, order US Liver, HIT Ab, HIV negative US legs to r.o dvt per [facility] policy # Hypokalemia Improved # Dementia Baseline # FULL CODE SW follow up to reach out to DPOA and consider change in code status due to high morbidity and risk of inpatient mortality. > 50 min spent in coordination of care and consultation with physicians and RN. Subjective Date patient seen: May 23, 2020 Time patient seen: 11:00 ROS Limited/Unobtainable: Yes Allergies: Coded Allergies: DIVALPROEX SODIUM (Verified Allergy, Unknown, 05/14/20) PENICILLINS (Verified Allergy, Unknown, 05/14/20) Subjective Non verbal, intubated Objective Last 24 Hour Vital Signs Date Time Temp Pulse Resp B/P (MAP) Pulse Ox O2 Delivery O2 Flow Rate FiO2 05/23/20 10:00 66 18 117/62 (80) 98 05/23/20 09:00 62 17 105/49 (67) 98 05/23/20 08:23 40 05/23/20 08:23 59 17 40 05/23/20 08:00 98.3 59 14 101/48 (65) 99 05/23/20 08:00 40 05/23/20 07:00 62 14 108/54 (72) 99 05/23/20 06:45 61 17 40 05/23/20 06:29 62 12 05/23/20 06:00 60 13 105/50 (68) 99 05/23/20 05:00 59 12 104/53 (70) 98 05/23/20 04:00 59 15 105/53 (70) 98 05/23/20 04:00 40 05/23/20 04:00 Mechanical Ventilator 05/23/20 03:39 63 05/23/20 03:10 61 10 40 05/23/20 03:00 56 10 123/56 (78) 100 05/23/20 02:00 60 14 119/53 (75) 100 05/23/20 01:00 61 12 120/57 (78) 100 05/23/20 00:15 61 120/57 05/23/20 00:00 98.9 62 15 108/54 (72) 99 05/23/20 00:00 40 05/23/20 00:00 Mechanical Ventilator 05/22/20 23:45 66 14 122/60 (80) 99 05/22/20 23:30 61 14 120/59 (79) 99 05/22/20 23:15 62 15 115/61 (79) 99 05/22/20 23:14 62 05/22/20 23:00 61 12 114/56 (75) 99 05/22/20 23:00 114/56 05/22/20 22:45 63 13 104/56 (72) 99 05/22/20 22:45 64 13 40 05/22/20 22:30 67 14 103/54 (70) 98 05/22/20 22:15 69 16 105/58 (74) 99 05/22/20 22:00 68 12 105/56 (72) 99 05/22/20 22:00 105/56 05/22/20 21:45 71 14 106/59 (75) 98 05/22/20 21:30 73 14 108/57 (74) 99 05/22/20 21:15 73 16 125/63 (83) 99 05/22/20 21:14 73 16 128/66 (86) 99 05/22/20 21:03 74 15 112/61 (78) 100 05/22/20 21:00 106/62 05/22/20 21:00 74 16 106/62 (77) 100 05/22/20 20:45 75 16 102/58 (73) 99 05/22/20 20:30 74 15 100/62 (75) 100 05/22/20 20:15 74 13 109/57 (74) 100 05/22/20 20:00 69 05/22/20 20:00 Mechanical Ventilator 05/22/20 20:00 99.5 76 16 99/57 (71) 100 05/22/20 20:00 99/57 05/22/20 20:00 40 05/22/20 19:45 74 15 103/63 (76) 100 05/22/20 19:30 73 17 109/59 (76) 100 05/22/20 19:15 72 17 103/63 (76) 100 05/22/20 19:00 71 16 97/55 (69) 100 05/22/20 18:58 74 19 40 05/22/20 18:45 71 19 100/58 (72) 100 05/22/20 18:30 71 15 98/57 (71) 100 05/22/20 18:15 72 15 101/59 (73) 100 05/22/20 18:00 71 15 103/51 (68) 100 05/22/20 17:30 72 17 96/57 (70) 100 05/22/20 17:21 72 17 103/58 (73) 100 05/22/20 17:15 72 18 88/53 (65) 100 05/22/20 17:00 70 14 96/55 (69) 100 05/22/20 16:45 72 16 92/57 (69) 100 05/22/20 16:30 72 17 95/51 (66) 100 05/22/20 16:15 72 16 94/52 (66) 99 05/22/20 16:00 Mechanical Ventilator 05/22/20 16:00 98.8 71 18 88/50 (63) 99 05/22/20 16:00 71 05/22/20 15:45 73 17 94/53 (67) 99 05/22/20 15:30 73 17 94/52 (66) 99 05/22/20 15:23 71 19 114/61 (78) 100 05/22/20 15:15 70 14 80/47 (58) 100 05/22/20 15:09 70 14 40 05/22/20 15:00 71 15 89/50 (63) 100 05/22/20 14:45 72 15 86/48 (61) 100 05/22/20 14:30 72 15 96/52 (67) 100 05/22/20 14:15 71 13 97/52 (67) 100 05/22/20 14:00 71 14 96/49 (65) 100 05/22/20 13:15 67 14 100/55 (70) 100 05/22/20 13:00 71 15 108/65 (79) 100 05/22/20 12:45 68 13 101/58 (72) 100 05/22/20 12:30 68 14 99/58 (72) 100 05/22/20 12:15 40 05/22/20 12:15 69 20 99/61 (74) 100 05/22/20 12:14 70 12 40 05/22/20 12:14 40 05/22/20 12:00 68 17 99/51 (67) 100 05/22/20 12:00 80 05/22/20 12:00 Mechanical Ventilator 05/22/20 11:45 70 16 108/56 (73) 100 Intake and Output 05/22/20 05/23/20 19:00 07:00 Intake Total 1842.5 ml 1578.12 ml Output Total 535 ml 715 ml Balance 1307.5 ml 863.12 ml Free Water 155 ml IV Total 1092.5 ml 763.12 ml Tube Feeding 720 ml 660 ml Other 30 ml Output Urine Total 535 ml 715 ml Laboratory Tests 05/22/20 12:59: POC Whole Blood Glucose 149H 05/22/20 18:11: POC Whole Blood Glucose [Pending] 05/23/20 04:40: White Blood Count 12.2H, Red Blood Count 2.76L, Hemoglobin 8.5L, Hematocrit 24.9L, Mean Corpuscular Volume 90, Mean Corpuscular Hemoglobin 30.7, Mean Corpuscular Hemoglobin Concent 33.9, Red Cell Distribution Width 12.9, Platelet Count 195, Mean Platelet Volume 9.2, Neutrophils (%) (Auto) , Lymphocytes (%) ( Auto) , Monocytes (%) (Auto) , Eosinophils (%) (Auto) , Basophils (%) (Auto) , Differential Total Cells Counted 100, Neutrophils % (Manual) 90H, Lymphocytes % (Manual) 7L, Monocytes % (Manual) 3, Eosinophils % (Manual) 0, Basophils % ( Manual) 0, Band Neutrophils 0, Platelet Estimate Adequate, Platelet Morphology Normal, Hypochromasia 2+, Anisocytosis 1+, Sodium Level 146H, Potassium Level 4.2, Chloride Level 112H, Carbon Dioxide Level 25, Anion Gap 9, Blood Urea Nitrogen 41H, Creatinine 0.7, Estimat Glomerular Filtration Rate > 60, Glucose Level 86, Calcium Level 7.8L 05/23/20 10:23: Arterial Blood pH 7.462H, Arterial Blood Partial Pressure CO2 29.5L, Arterial Blood Partial Pressure O2 101.8H, Arterial Blood HCO3 20.6L, Arterial Blood Oxygen Saturation 96.6, Arterial Blood Base Excess -2.5L, Anthony Test Positive Height (Feet): 5 Height (Inches): 4.00 Weight (Pounds): 149 General Appearance: moderate distress EENT: PERRL/EOMI Neck: non-tender Cardiovascular: normal rate Respiratory/Chest: decreased breath sounds Abdomen: non tender Neurologic: other - sedated Jessica Wade MD May 23, 2020 11:38
--- NOTE | 2020-05-23 12:00 | NUR ---
NURSE NOTES: Pt repositioned, oral care provided. Preparing pt to be placed on T-piece. Addendum: 05/23/20 at 1500 by Marion Graf RN Late entry: left wrist restraint discontinued at this time - pt no longer observed attempting to pull tubes.
--- NOTE | 2020-05-23 12:25 | NUR ---
NURSE NOTES: PT taken off ventilator and placed on cool aerosol via T-piece - 40%, 12L O2 - no distress noted.
--- NOTE | 2020-05-23 12:25 | NUR ---
RESPIRATORY NOTES PT taken off ventilator and placed on cool aerosol via T-piece - 40%, 12L. PT's SaO2 97%. No signs of respiratory distress noted. ERNIE Walden aware. Will continue to monitor.
--- NOTE | 2020-05-23 13:44 | Cardiac Electrophysiology PN ---
Assessment/Plan Assessment/Plan 1. [id number] myocardial infarction. Her troponin was 1.258,1.2,1.9, 3.4 and the down to 0.7 EKG does not show any acute ST-T wave abnormality and certainly no ST elevation. Due to septic shock, DCCV and Renal failure. The echocardiogram had poor windows. 2. PAF with RVR. S/P DCCV 3 times No more fib or accelerated junctional rhythm. Can not use beta-ramakrishna or calcium-channel ramakrishna as the patient is still on Levophed. Loaded with digoxin and dig level is 1.6 3. S/P Septic shock. Off Levophed, on Midodrine and Iv antibiotic 4. Severe hypernatremia with sodium of 174, BUN of 131, creatinine 2.7 due to dehydration. Sodium is 155 with BUN of 91 and creatinine of 1.9 with IV fluids. 5. Lactic acidosis on antibiotic. 6. Dysphagia, status post PEG placement. GT has trice removed on 05/18 still some drainage from the GT site NGTF GT replacement when more stable per Dr Matos 7. History of CVA and dementia. 8. Respiratory failure, on T piece today KIMMY RN Subjective Subjective In ICU in SR with no atrial fib or Junctional tach. Off Levophed now and off the Vent on T piece In Covid isolation. PEG out on 05/18 and still getting NGT feeding Objective Last 24 Hour Vital Signs Date Time Temp Pulse Resp B/P (MAP) Pulse Ox O2 Delivery O2 Flow Rate FiO2 05/23/20 13:00 73 22 114/55 (74) 96 05/23/20 12:25 97 05/23/20 12:00 98.6 64 24 121/54 (76) 98 05/23/20 11:05 61 20 40 05/23/20 11:00 61 20 120/60 (80) 98 05/23/20 10:00 66 18 117/62 (80) 98 05/23/20 09:00 62 17 105/49 (67) 98 05/23/20 08:23 40 05/23/20 08:23 59 17 40 05/23/20 08:00 98.3 59 14 101/48 (65) 99 05/23/20 08:00 40 05/23/20 07:00 62 14 108/54 (72) 99 05/23/20 06:45 61 17 40 05/23/20 06:29 62 12 05/23/20 06:00 60 13 105/50 (68) 99 05/23/20 05:00 59 12 104/53 (70) 98 05/23/20 04:00 59 15 105/53 (70) 98 05/23/20 04:00 40 05/23/20 04:00 Mechanical Ventilator 05/23/20 03:39 63 05/23/20 03:10 61 10 40 05/23/20 03:00 56 10 123/56 (78) 100 05/23/20 02:00 60 14 119/53 (75) 100 05/23/20 01:00 61 12 120/57 (78) 100 05/23/20 00:15 61 120/57 05/23/20 00:00 98.9 62 15 108/54 (72) 99 05/23/20 00:00 40 05/23/20 00:00 Mechanical Ventilator 05/22/20 23:45 66 14 122/60 (80) 99 05/22/20 23:30 61 14 120/59 (79) 99 05/22/20 23:15 62 15 115/61 (79) 99 05/22/20 23:14 62 05/22/20 23:00 61 12 114/56 (75) 99 05/22/20 23:00 114/56 05/22/20 22:45 63 13 104/56 (72) 99 05/22/20 22:45 64 13 40 05/22/20 22:30 67 14 103/54 (70) 98 05/22/20 22:15 69 16 105/58 (74) 99 05/22/20 22:00 68 12 105/56 (72) 99 05/22/20 22:00 105/56 05/22/20 21:45 71 14 106/59 (75) 98 05/22/20 21:30 73 14 108/57 (74) 99 05/22/20 21:15 73 16 125/63 (83) 99 05/22/20 21:14 73 16 128/66 (86) 99 05/22/20 21:03 74 15 112/61 (78) 100 05/22/20 21:00 106/62 05/22/20 21:00 74 16 106/62 (77) 100 05/22/20 20:45 75 16 102/58 (73) 99 05/22/20 20:30 74 15 100/62 (75) 100 05/22/20 20:15 74 13 109/57 (74) 100 05/22/20 20:00 69 05/22/20 20:00 Mechanical Ventilator 05/22/20 20:00 99.5 76 16 99/57 (71) 100 05/22/20 20:00 99/57 05/22/20 20:00 40 05/22/20 19:45 74 15 103/63 (76) 100 05/22/20 19:30 73 17 109/59 (76) 100 05/22/20 19:15 72 17 103/63 (76) 100 05/22/20 19:00 71 16 97/55 (69) 100 05/22/20 18:58 74 19 40 05/22/20 18:45 71 19 100/58 (72) 100 05/22/20 18:30 71 15 98/57 (71) 100 05/22/20 18:15 72 15 101/59 (73) 100 05/22/20 18:00 71 15 103/51 (68) 100 05/22/20 17:30 72 17 96/57 (70) 100 05/22/20 17:21 72 17 103/58 (73) 100 05/22/20 17:15 72 18 88/53 (65) 100 05/22/20 17:00 70 14 96/55 (69) 100 05/22/20 16:45 72 16 92/57 (69) 100 05/22/20 16:30 72 17 95/51 (66) 100 05/22/20 16:15 72 16 94/52 (66) 99 05/22/20 16:00 Mechanical Ventilator 05/22/20 16:00 98.8 71 18 88/50 (63) 99 05/22/20 16:00 71 05/22/20 15:45 73 17 94/53 (67) 99 05/22/20 15:30 73 17 94/52 (66) 99 05/22/20 15:23 71 19 114/61 (78) 100 05/22/20 15:15 70 14 80/47 (58) 100 05/22/20 15:09 70 14 40 05/22/20 15:00 71 15 89/50 (63) 100 05/22/20 14:45 72 15 86/48 (61) 100 05/22/20 14:30 72 15 96/52 (67) 100 05/22/20 14:15 71 13 97/52 (67) 100 05/22/20 14:00 71 14 96/49 (65) 100 Intake and Output 05/22/20 05/23/20 19:00 07:00 Intake Total 1842.5 ml 1578.12 ml Output Total 535 ml 715 ml Balance 1307.5 ml 863.12 ml Free Water 155 ml IV Total 1092.5 ml 763.12 ml Tube Feeding 720 ml 660 ml Other 30 ml Output Urine Total 535 ml 715 ml Laboratory Tests Test 05/22/20 18:11 05/23/20 04:40 05/23/20 10:23 POC Whole Blood Glucose Pending White Blood Count 12.2 K/UL (4.8-10.8) H Red Blood Count 2.76 M/UL (4.20-5.40) L Hemoglobin 8.5 G/DL (12.0-16.0) L Hematocrit 24.9 % (37.0-47.0) L Mean Corpuscular Volume 90 FL (80-99) Mean Corpuscular Hemoglobin 30.7 PG (27.0-31.0) Mean Corpuscular Hemoglobin Concent 33.9 G/DL (32.0-36.0) Red Cell Distribution Width 12.9 % (11.6-14.8) Platelet Count 195 K/UL (150-450) Mean Platelet Volume 9.2 FL (6.5-10.1) Neutrophils (%) (Auto) % (45.0-75.0) Lymphocytes (%) (Auto) % (20.0-45.0) Monocytes (%) (Auto) % (1.0-10.0) Eosinophils (%) (Auto) % (0.0-3.0) Basophils (%) (Auto) % (0.0-2.0) Differential Total Cells Counted 100 Neutrophils % (Manual) 90 % (45-75) H Lymphocytes % (Manual) 7 % (20-45) L Monocytes % (Manual) 3 % (1-10) Eosinophils % (Manual) 0 % (0-3) Basophils % (Manual) 0 % (0-2) Band Neutrophils 0 % (0-8) Platelet Estimate Adequate Platelet Morphology Normal Hypochromasia 2+ Anisocytosis 1+ Sodium Level 146 MMOL/L (136-145) H Potassium Level 4.2 MMOL/L (3.5-5.1) Chloride Level 112 MMOL/L (98-107) H Carbon Dioxide Level 25 MMOL/L (21-32) Anion Gap 9 mmol/L (5-15) Blood Urea Nitrogen 41 mg/dL (7-18) H Creatinine 0.7 MG/DL (0.55-1.30) Estimat Glomerular Filtration Rate > 60 mL/min (>60) Glucose Level 86 MG/DL (74-106) Calcium Level 7.8 MG/DL (8.5-10.1) L Arterial Blood pH 7.462 (7.350-7.450) Arterial Blood Partial Pressure CO2 29.5 mmHg (35.0-45.0) L Arterial Blood Partial Pressure O2 101.8 mmHg (75.0-100.0) H Arterial Blood HCO3 20.6 mmol/L (22.0-26.0) L Arterial Blood Oxygen Saturation 96.6 % (95-100) Arterial Blood Base Excess -2.5 (-2-2) L Anthony Test Positive Objective HEAD AND NECK: Show no JVD. She is orally intubated on T piece. NGT LUNGS: Coarse rhonchi. CARDIOVASCULAR: Shows regular S1 and S2 with no gallop. ABDOMEN: Soft. G-tube site is covered. EXTREMITIES: Show no pitting edema. Norman Morillo MD May 23, 2020 13:44
--- NOTE | 2020-05-23 14:00 | NUR ---
NURSE NOTES: Pt repositioned. Continues to tolerate T-piece without distress. SpO2 97% RR 22-26 HR 67 SBP 120s
--- NOTE | 2020-05-23 14:23 | Infectious Diseases Prog Note ---
Assessment/Plan 70 yo female with PMHx of Dementia, DM, CVA ( S/P PEG), COVID 19 infection and pressure ulcers. Septic Shock-combination cardiogenic and septic; SP Gram positive bacteremia- contaminant -05/14 Bcx 1/4 S. haemolyticus; 05/17 Bcx Neg UTI UA (+); ucx 10-20k P. mirabilis (S Ceftriaxone, Cefepime) PNA, superimposed bacterial -05/19 CXR: Increasing left pleural fluid and likely basilar consolidation/ atelectasis. Interim orogastric intubation 05/16 CXR: Retrocardiac density may represent atelectasis versus infiltrate. CXR 05/14/20 showed Retrocardiac atelectasis/infiltrate with Pulmonary venous congestion. sp cx MDR E.coli (S Cefepime, Meropenem, Zosyn) Hx of COVID 19 - Bacteria secondary infection? Asp PNA? 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 Negative for dilated bile ducts. Normal appearing liver and spleen. Trace ascites Dementia DM Hx CVA ( S/P PEG) pressure ulcers PLAN - Meropenem #7 (abx d #06/18) - On Decadron #10 per pulm; consider dc'ing at this point -05/19 SP IV Vancomcyin #6 -05/17 SP Cefepime #4 - f/u Cultures - Monitor CBC and Temps -out of the window for Remdesivir- doubt beneficial at this point and shock more bacterial related Thank you for consulting [facility]. Will continue to follow along with you. Discussed with RN. Subjective Allergies: Coded Allergies: DIVALPROEX SODIUM (Verified Allergy, Unknown, 05/14/20) PENICILLINS (Verified Allergy, Unknown, 05/14/20) afebrile in ~48hrs wbc improving off pressors repeat Bcx neg FIo2 40% Objective Last 24 Hour Vital Signs Date Time Temp Pulse Resp B/P (MAP) Pulse Ox O2 Delivery O2 Flow Rate FiO2 05/23/20 14:00 67 24 120/54 (76) 93 05/23/20 13:00 73 22 114/55 (74) 96 05/23/20 12:25 97 05/23/20 12:00 64 05/23/20 12:00 Mechanical Ventilator 05/23/20 12:00 98.6 64 24 121/54 (76) 98 05/23/20 11:05 61 20 40 05/23/20 11:00 61 20 120/60 (80) 98 05/23/20 10:00 66 18 117/62 (80) 98 05/23/20 09:00 62 17 105/49 (67) 98 05/23/20 08:23 40 05/23/20 08:23 59 17 40 05/23/20 08:00 98.3 59 14 101/48 (65) 99 05/23/20 08:00 Mechanical Ventilator 05/23/20 08:00 40 05/23/20 08:00 63 05/23/20 07:00 62 14 108/54 (72) 99 05/23/20 06:45 61 17 40 05/23/20 06:29 62 12 05/23/20 06:00 60 13 105/50 (68) 99 05/23/20 05:00 59 12 104/53 (70) 98 05/23/20 04:00 59 15 105/53 (70) 98 05/23/20 04:00 40 05/23/20 04:00 Mechanical Ventilator 05/23/20 03:39 63 05/23/20 03:10 61 10 40 05/23/20 03:00 56 10 123/56 (78) 100 05/23/20 02:00 60 14 119/53 (75) 100 05/23/20 01:00 61 12 120/57 (78) 100 05/23/20 00:15 61 120/57 05/23/20 00:00 98.9 62 15 108/54 (72) 99 05/23/20 00:00 40 05/23/20 00:00 Mechanical Ventilator 05/22/20 23:45 66 14 122/60 (80) 99 05/22/20 23:30 61 14 120/59 (79) 99 05/22/20 23:15 62 15 115/61 (79) 99 05/22/20 23:14 62 05/22/20 23:00 61 12 114/56 (75) 99 05/22/20 23:00 114/56 05/22/20 22:45 63 13 104/56 (72) 99 05/22/20 22:45 64 13 40 05/22/20 22:30 67 14 103/54 (70) 98 05/22/20 22:15 69 16 105/58 (74) 99 05/22/20 22:00 68 12 105/56 (72) 99 05/22/20 22:00 105/56 05/22/20 21:45 71 14 106/59 (75) 98 05/22/20 21:30 73 14 108/57 (74) 99 05/22/20 21:15 73 16 125/63 (83) 99 05/22/20 21:14 73 16 128/66 (86) 99 05/22/20 21:03 74 15 112/61 (78) 100 05/22/20 21:00 106/62 05/22/20 21:00 74 16 106/62 (77) 100 05/22/20 20:45 75 16 102/58 (73) 99 05/22/20 20:30 74 15 100/62 (75) 100 05/22/20 20:15 74 13 109/57 (74) 100 05/22/20 20:00 69 05/22/20 20:00 Mechanical Ventilator 05/22/20 20:00 99.5 76 16 99/57 (71) 100 05/22/20 20:00 99/57 05/22/20 20:00 40 05/22/20 19:45 74 15 103/63 (76) 100 05/22/20 19:30 73 17 109/59 (76) 100 05/22/20 19:15 72 17 103/63 (76) 100 05/22/20 19:00 71 16 97/55 (69) 100 05/22/20 18:58 74 19 40 05/22/20 18:45 71 19 100/58 (72) 100 05/22/20 18:30 71 15 98/57 (71) 100 05/22/20 18:15 72 15 101/59 (73) 100 05/22/20 18:00 71 15 103/51 (68) 100 05/22/20 17:30 72 17 96/57 (70) 100 05/22/20 17:21 72 17 103/58 (73) 100 05/22/20 17:15 72 18 88/53 (65) 100 05/22/20 17:00 70 14 96/55 (69) 100 05/22/20 16:45 72 16 92/57 (69) 100 05/22/20 16:30 72 17 95/51 (66) 100 05/22/20 16:15 72 16 94/52 (66) 99 05/22/20 16:00 Mechanical Ventilator 05/22/20 16:00 98.8 71 18 88/50 (63) 99 05/22/20 16:00 71 05/22/20 15:45 73 17 94/53 (67) 99 05/22/20 15:30 73 17 94/52 (66) 99 05/22/20 15:23 71 19 114/61 (78) 100 05/22/20 15:15 70 14 80/47 (58) 100 05/22/20 15:09 70 14 40 05/22/20 15:00 71 15 89/50 (63) 100 05/22/20 14:45 72 15 86/48 (61) 100 05/22/20 14:30 72 15 96/52 (67) 100 Height (Feet): 5 Height (Inches): 4.00 Weight (Pounds): 149 GEN: On Vent HEENT: NCAT, MMM, Intubated Pulm: Equal rise and fall B/L ABD: Soft, ND, PEG (No e/p) Neuro: Not following, Intubated SKIN: Exposed skin with no rash, Normal in color Laboratory Tests Test 05/22/20 18:11 05/23/20 04:40 05/23/20 10:23 POC Whole Blood Glucose Pending White Blood Count 12.2 K/UL (4.8-10.8) H Red Blood Count 2.76 M/UL (4.20-5.40) L Hemoglobin 8.5 G/DL (12.0-16.0) L Hematocrit 24.9 % (37.0-47.0) L Mean Corpuscular Volume 90 FL (80-99) Mean Corpuscular Hemoglobin 30.7 PG (27.0-31.0) Mean Corpuscular Hemoglobin Concent 33.9 G/DL (32.0-36.0) Red Cell Distribution Width 12.9 % (11.6-14.8) Platelet Count 195 K/UL (150-450) Mean Platelet Volume 9.2 FL (6.5-10.1) Neutrophils (%) (Auto) % (45.0-75.0) Lymphocytes (%) (Auto) % (20.0-45.0) Monocytes (%) (Auto) % (1.0-10.0) Eosinophils (%) (Auto) % (0.0-3.0) Basophils (%) (Auto) % (0.0-2.0) Differential Total Cells Counted 100 Neutrophils % (Manual) 90 % (45-75) H Lymphocytes % (Manual) 7 % (20-45) L Monocytes % (Manual) 3 % (1-10) Eosinophils % (Manual) 0 % (0-3) Basophils % (Manual) 0 % (0-2) Band Neutrophils 0 % (0-8) Platelet Estimate Adequate Platelet Morphology Normal Hypochromasia 2+ Anisocytosis 1+ Sodium Level 146 MMOL/L (136-145) H Potassium Level 4.2 MMOL/L (3.5-5.1) Chloride Level 112 MMOL/L (98-107) H Carbon Dioxide Level 25 MMOL/L (21-32) Anion Gap 9 mmol/L (5-15) Blood Urea Nitrogen 41 mg/dL (7-18) H Creatinine 0.7 MG/DL (0.55-1.30) Estimat Glomerular Filtration Rate > 60 mL/min (>60) Glucose Level 86 MG/DL (74-106) Calcium Level 7.8 MG/DL (8.5-10.1) L Arterial Blood pH 7.462 (7.350-7.450) Arterial Blood Partial Pressure CO2 29.5 mmHg (35.0-45.0) L Arterial Blood Partial Pressure O2 101.8 mmHg (75.0-100.0) H Arterial Blood HCO3 20.6 mmol/L (22.0-26.0) L Arterial Blood Oxygen Saturation 96.6 % (95-100) Arterial Blood Base Excess -2.5 (-2-2) L Anthony Test Positive Current Medications Medications (Trade) Dose Ordered Sig/Morgan Route PRN Reason Start Time Stop Time Status Last Admin Dose Admin Acetaminophen (Tylenol) 650 mg Q4H PRN GT Temp >100.5 05/16/20 06:15 06/15/20 06:14 05/21/20 20:01 Acetaminophen (Tylenol) 650 mg Q4H PRN RECTAL Temp >100.5 05/16/20 19:45 06/15/20 19:44 05/17/20 18:30 Chlorhexidine Gluconate (Lilliam-Hex 2%) 1 applic DAILY@2000 TOPIC 05/15/20 20:00 08/13/20 19:59 05/22/20 20:00 Dexamethasone Sodium Phosphate (Decadron 10mg/ ml Inj) 6 mg DAILY IV 05/16/20 09:00 05/25/20 08:59 05/23/20 09:36 Dextrose (Dextrose 50%) 25 ml Q30M PRN IV Hypoglycemia 05/22/20 00:00 08/20/20 00:00 Dextrose (Dextrose 50%) 50 ml Q30M PRN IV Hypoglycemia 05/22/20 00:00 08/20/20 00:00 Insulin Aspart (NovoLOG) EVERY 6 HOURS SUBQ 05/22/20 06:00 08/20/20 05:59 05/22/20 18:00 Insulin Detemir (Levemir) 10 units Q12HR SUBQ 05/22/20 09:00 08/20/20 08:59 05/22/20 20:57 Meropenem 1 gm/ Sodium Chloride 55 ml @ 110 mls/hr Q12HR@0200,1400 IVPB 05/17/20 14:00 05/26/20 23:59 05/23/20 13:05 Midodrine (Pro-Amatine) 10 mg TID ORAL 05/23/20 09:00 08/21/20 08:59 05/23/20 13:03 Norepinephrine Bitartrate 8 mg/ Dextrose 250 ml @ 0 mls/hr Q24H IV 05/20/20 18:00 06/19/20 17:59 05/22/20 05:45 Pantoprazole (Protonix) 40 mg DAILY IV 05/15/20 09:00 06/14/20 08:59 05/23/20 09:36 Phenylephrine HCl 100 mg/Dextrose 250 ml @ 0 mls/hr Q24H IV 05/15/20 00:15 06/14/20 00:14 05/15/20 13:28 Sodium Chloride 1,000 ml @ 75 mls/hr [id number] IV 05/15/20 06:45 06/14/20 06:44 05/23/20 05:39 Vasopressin 100 units/Sodium Chloride 100 ml @ 0 mls/hr Q24H IV 05/15/20 00:15 06/14/20 00:14 Zinc Oxide (Zinc Oxide) 1 applic TIDPRN PRN TOPIC Abdominal cramps 05/20/20 13:00 08/18/20 12:59 Yomaira Terry M.D. May 23, 2020 14:23
--- NOTE | 2020-05-23 15:43 | Diagnostic Imaging Report ---
Indication: Dyspnea Technique: XRAY Chest 1v Comparison: 05/21/2020 Findings: Heart size and mediastinal contours stable. Endotracheal tube, enteric tube and right transjugular central line stable in position. There is slight interval worsening of aeration with increasing hazy opacification of the left lung base. No evidence of pneumothorax. Osseous structures are stable. IMPRESSION: Worsening aeration with increasing hazy opacification of the left lung base which may related to increased layering pleural effusion and adjacent atelectasis/consolidation.
--- NOTE | 2020-05-23 16:00 | NUR ---
NURSE NOTES: Pt repositioned and cleaned. oral care provided. Continues to tolerate T-piece with SpO2 96%. Remains afebrile. Will continue monitoring.
--- NOTE | 2020-05-23 17:00 | Surgery Progress Note ---
Surgery Progress Note Subjective Additional Comments weaning vent afebrile HD stable on support Objective Last 24 Hour Vital Signs Date Time Temp Pulse Resp B/P (MAP) Pulse Ox O2 Delivery O2 Flow Rate FiO2 05/23/20 16:58 127/56 05/23/20 16:00 40 05/23/20 16:00 Mechanical Ventilator 05/23/20 16:00 72 30 129/60 (83) 95 05/23/20 15:00 68 28 129/55 (79) 97 05/23/20 14:00 67 24 120/54 (76) 93 05/23/20 13:00 73 22 114/55 (74) 96 05/23/20 12:25 97 05/23/20 12:25 97 Cool Aerosol 12.0 40 05/23/20 12:00 64 05/23/20 12:00 Mechanical Ventilator 05/23/20 12:00 40 05/23/20 12:00 98.6 64 24 121/54 (76) 98 05/23/20 11:05 61 20 40 05/23/20 11:00 61 20 120/60 (80) 98 05/23/20 10:00 66 18 117/62 (80) 98 05/23/20 09:00 62 17 105/49 (67) 98 05/23/20 08:23 40 05/23/20 08:23 59 17 40 05/23/20 08:00 98.3 59 14 101/48 (65) 99 05/23/20 08:00 Mechanical Ventilator 05/23/20 08:00 40 05/23/20 08:00 63 05/23/20 07:00 62 14 108/54 (72) 99 05/23/20 06:45 61 17 40 05/23/20 06:29 62 12 05/23/20 06:00 60 13 105/50 (68) 99 05/23/20 05:00 59 12 104/53 (70) 98 05/23/20 04:00 59 15 105/53 (70) 98 05/23/20 04:00 40 05/23/20 04:00 Mechanical Ventilator 05/23/20 03:39 63 05/23/20 03:10 61 10 40 05/23/20 03:00 56 10 123/56 (78) 100 05/23/20 02:00 60 14 119/53 (75) 100 05/23/20 01:00 61 12 120/57 (78) 100 05/23/20 00:15 61 120/57 05/23/20 00:00 98.9 62 15 108/54 (72) 99 05/23/20 00:00 40 05/23/20 00:00 Mechanical Ventilator 05/22/20 23:45 66 14 122/60 (80) 99 05/22/20 23:30 61 14 120/59 (79) 99 05/22/20 23:15 62 15 115/61 (79) 99 05/22/20 23:14 62 05/22/20 23:00 61 12 114/56 (75) 99 05/22/20 23:00 114/56 05/22/20 22:45 63 13 104/56 (72) 99 05/22/20 22:45 64 13 40 05/22/20 22:30 67 14 103/54 (70) 98 05/22/20 22:15 69 16 105/58 (74) 99 05/22/20 22:00 68 12 105/56 (72) 99 05/22/20 22:00 105/56 05/22/20 21:45 71 14 106/59 (75) 98 05/22/20 21:30 73 14 108/57 (74) 99 05/22/20 21:15 73 16 125/63 (83) 99 05/22/20 21:14 73 16 128/66 (86) 99 05/22/20 21:03 74 15 112/61 (78) 100 05/22/20 21:00 106/62 05/22/20 21:00 74 16 106/62 (77) 100 05/22/20 20:45 75 16 102/58 (73) 99 05/22/20 20:30 74 15 100/62 (75) 100 05/22/20 20:15 74 13 109/57 (74) 100 05/22/20 20:00 69 05/22/20 20:00 Mechanical Ventilator 05/22/20 20:00 99.5 76 16 99/57 (71) 100 05/22/20 20:00 99/57 05/22/20 20:00 40 05/22/20 19:45 74 15 103/63 (76) 100 05/22/20 19:30 73 17 109/59 (76) 100 05/22/20 19:15 72 17 103/63 (76) 100 05/22/20 19:00 71 16 97/55 (69) 100 05/22/20 18:58 74 19 40 05/22/20 18:45 71 19 100/58 (72) 100 05/22/20 18:30 71 15 98/57 (71) 100 05/22/20 18:15 72 15 101/59 (73) 100 05/22/20 18:00 71 15 103/51 (68) 100 05/22/20 17:30 72 17 96/57 (70) 100 05/22/20 17:21 72 17 103/58 (73) 100 05/22/20 17:15 72 18 88/53 (65) 100 I&O Intake and Output 05/22/20 05/23/20 19:00 07:00 Intake Total 1842.5 ml 1653.12 ml Output Total 535 ml 715 ml Balance 1307.5 ml 938.12 ml Free Water 155 ml IV Total 1092.5 ml 838.12 ml Tube Feeding 720 ml 660 ml Other 30 ml Output Urine Total 535 ml 715 ml Dressing: saturated Cardiovascular: RSR Respiratory: decreased breath sounds Abdomen: soft, non-tender, present bowel sounds Extremities: no tenderness, no cyanosis Laboratory Tests Test 05/22/20 18:11 05/23/20 04:40 05/23/20 10:23 POC Whole Blood Glucose Pending White Blood Count 12.2 K/UL (4.8-10.8) H Red Blood Count 2.76 M/UL (4.20-5.40) L Hemoglobin 8.5 G/DL (12.0-16.0) L Hematocrit 24.9 % (37.0-47.0) L Mean Corpuscular Volume 90 FL (80-99) Mean Corpuscular Hemoglobin 30.7 PG (27.0-31.0) Mean Corpuscular Hemoglobin Concent 33.9 G/DL (32.0-36.0) Red Cell Distribution Width 12.9 % (11.6-14.8) Platelet Count 195 K/UL (150-450) Mean Platelet Volume 9.2 FL (6.5-10.1) Neutrophils (%) (Auto) % (45.0-75.0) Lymphocytes (%) (Auto) % (20.0-45.0) Monocytes (%) (Auto) % (1.0-10.0) Eosinophils (%) (Auto) % (0.0-3.0) Basophils (%) (Auto) % (0.0-2.0) Differential Total Cells Counted 100 Neutrophils % (Manual) 90 % (45-75) H Lymphocytes % (Manual) 7 % (20-45) L Monocytes % (Manual) 3 % (1-10) Eosinophils % (Manual) 0 % (0-3) Basophils % (Manual) 0 % (0-2) Band Neutrophils 0 % (0-8) Platelet Estimate Adequate Platelet Morphology Normal Hypochromasia 2+ Anisocytosis 1+ Sodium Level 146 MMOL/L (136-145) H Potassium Level 4.2 MMOL/L (3.5-5.1) Chloride Level 112 MMOL/L (98-107) H Carbon Dioxide Level 25 MMOL/L (21-32) Anion Gap 9 mmol/L (5-15) Blood Urea Nitrogen 41 mg/dL (7-18) H Creatinine 0.7 MG/DL (0.55-1.30) Estimat Glomerular Filtration Rate > 60 mL/min (>60) Glucose Level 86 MG/DL (74-106) Calcium Level 7.8 MG/DL (8.5-10.1) L Arterial Blood pH 7.462 (7.350-7.450) Arterial Blood Partial Pressure CO2 29.5 mmHg (35.0-45.0) L Arterial Blood Partial Pressure O2 101.8 mmHg (75.0-100.0) H Arterial Blood HCO3 20.6 mmol/L (22.0-26.0) L Arterial Blood Oxygen Saturation 96.6 % (95-100) Arterial Blood Base Excess -2.5 (-2-2) L Anthony Test Positive Plan Problems: (1) Hypernatremia (2) Renal failure (3) Respiratory failure (4) Sepsis Assessment & Plan: COVID + leukocytosis anemia electrolytes abnormal on iv fluids renal input appreciated cxr noted abx as per ID will follow with recs Interim placement of orogastric tube, also documented on recent abdominal radiograph. Stable satisfactory position of endotracheal tube and right jugular central venous catheter. There is increased pleural fluid and likely left basilar consolidation/atelectasis. The right lung and pleural space remain clear. Impression: Increasing left pleural fluid and likely basilar consolidation/atelectasis. Interim orogastric intubation DAILY ESTIMATED NEEDS: Needs based on Pulmonary, DM, wounds 66.6kg 25-30 kcals/kg 3478-9263 total kcals 1.25-1.5 g protein/kg 83-100 g total protein 20-25 mL/kg 2765-1348 total fluid mLs NUTRITION DIAGNOSIS: Swallowing difficulty r/t dysphagia as evidenced by h/o CVA, pt is GT dep, currently ICU status, now intubated, off pressor support, GT feeds initiated. CURRENT TF:Glucerna 1.2 @45ml/hr ENTERAL NUTRITION RECOMMENDATIONS: As medically able: GLUCERNA 1.5 goal of 45ml/hr x24 hrs to provide 1080ml, 1620 kcal, 89g pro, 820ml free H2O -> as medically able without aspiration risk start Glucerna 1.5 @low rate 25ml/hr for 6 hrs. Advance as tolerated 10ml/hr q4-6 hrs to goal. - Flush per , HOB over 30 degrees. ---- If not hemodynamically stable, rec trophic feeds of 5-10ml/hr to maintain gut integrity. ADDITIONAL RECOMMENDATIONS: 1) Obtain an accurate calibrated bed scale wt 2) F/up w/ H&P 3) With active TF orders, add JASMYN BID for noted DTPI wounds 4) TF recs as above when off bipap and w/ hemodynamic stability -> Now intubated, off pressors, on GT feeds. he spleen size is normal. The gallbladder contains sludge. No stones. No wall thickening nor pericholecystic fluid. Common bile duct measures 4 mm in diameter. Small amount free fluid is seen adjacent to the liver and spleen Impression: Gallbladder sludge. Negative for dilated bile ducts Normal appearing liver and spleen (5) Elevated d-dimer (6) COVID-19 Assessment & Plan: ++ (7) Pressure ulcer Assessment & Plan: Pt presented on admission with multiple Pressure injuries.DTPI noted to R Buttocks (L)3.8cm x (W)3.4cm. Base of wound is purpuric ,fluctuant with surrounding maroon and indurated borders. DTPI Upper L Buttocks(L)5.5cm x (W)4cm. Base of wound is maroon and indurated. Borders are irregular. Non-Blanchable erythema without induration/fluctuance L lower buttocks(L)4cm x ( W)7cm. R and L heels are soft but blanchable. Erosion noted at peristomal GT site. Site is erythematous and excoriated. Small amt. sanguineous exudate. Tx.Plan: Apply Moisture Barrier Paste to Sacrum, R and L Buttocks. Cover each area with Optifoam drsg. Change every 3 days and prn. Apply Moisture Barrier Paste to R and L Ischial tuberosities with each incontinence care. Apply Cavilon Skin Barrier to both heels. Cover each heel and malleoli with Optifoam drsg. Change every 7 days and prn. Reposition at least every 2hours or as tolerated. Off-load heels with pillow. APM/DARIN Mattress overlay. Apply Zinc Oxide Paste TID to GT site. Leave open to Air. (8) Dementia (9) CVA (cerebral vascular accident) (10) T2DM (type 2 diabetes mellitus) (11) Gastrostomy present (12) COVID-19 (13) Rapid atrial fibrillation Paul Garcia May 23, 2020 17:00
--- NOTE | 2020-05-23 17:08 | NUR ---
CASE MANAGEMENT:REVIEW SI;SEPSIS. COVID (+) 99.5 56 30 129/56 93% C-PAP WBC 12.2 H/H 8.5/24.9 NA 146 BUN 41 CA 7.8 IS;MIDODRINE GT TID LEVOPHED IV Q24 MEROPENEM IV Q12 DECADRON IV QD PROTONIX IV QD IVF NS @ 75 ML/HR ICU STATUS DCP;FROM [facility]
--- NOTE | 2020-05-23 18:00 | NUR ---
NURSE NOTES: Pt repositioned. BG 106 - no insulin coverage per protocol.
[2020-05-23] MEDS ORDERED: 1/2 NS 1000ml IV ONE ×2 (18:37→18:50)
[2020-05-23] MEDS ORDERED: NS 275ml ONE ×2 (18:37→18:50)
[2020-05-23] MEDS ORDERED: Tubing IV Secondary IV ONE ×2 (18:37→19:01)
[2020-05-23] MEDS ORDERED: D5NS 1000ml IV ONE (19:01)
--- NOTE | 2020-05-23 19:22 | NUR ---
NURSE HAND-OFF REPORT: Latest Vital Signs: Temperature 98.5 , Pulse 60 , B/P 138 /60 , Respiratory Rate 18 , O2 SAT 96 , Mechanical Ventilator, O2 Flow Rate 12.0 . Vital Sign Comment: stable EKG Rhythm: Sinus Rhythm Rhythm change?: N MD Notified?: N/A MD Response: n/a Latest Garza Fall Score: 50 Fall Risk: High Risk Safety Measures: Call light Within Reach, Bed Alarm Zone 1, Side Rails Side Rails x2, Bed position Low and Locked. Fall Precautions: Door Sign Report given to Kenya Mcmahon RN.
--- NOTE | 2020-05-23 19:30 | NUR ---
NURSE NOTES: Received pt on 40% T piece, resp. even and spont BS,Diminished on the bases 02 sat >94% Suctioned tn tk beige secretions lg in amt. HOB kept elevated. watch for any resp. distress. Will continue to monitor.
--- NOTE | 2020-05-23 20:00 | NUR ---
NURSE NOTES: pt on SR on the monitor, BP stable afebrile. IVF !/2NS at 75ml/hr infusing well per RT IJ central line. Site with drsg dry and intact.Arauz to gravity with moderate amt of yellowish urine, monitor I and O. Monitor lytes.. Pt has pressure sores on various places. pls see pictures, covered with optifoam clean and dry.Turned q 2hrs prn with good skin care done.
[2020-05-23] MEDS: Dyna-Hex 2% Top Sol 2oz TOPIC SCH (20:22)
--- NOTE | 2020-05-23 22:00 | NUR ---
NURSE NOTES: Pt had x1 extra lg soft stool, cleaned up pt.
[2020-05-24] VITALS (24 sets, daily range): BP systolic 119–154; BP diastolic 55–80
--- NOTE | 2020-05-24 | NUR ---
NURSE NOTES: Tolerated fdg with acceptable residuals. HOB kept elevated. On aspiration precaution.
[2020-05-24] MEDS: Phenylephrine 100 MG in D5W 240 ML IV SCH ×2 (00:15→23:52)
[2020-05-24] MEDS: Vasopressin 100 UNITS in NS 95 ML IV SCH ×2 (00:15→23:52)
--- NOTE | 2020-05-24 02:00 | NUR ---
NURSE NOTES: Suctioned tn tk beige secretions lg in amt. 02 sat 100%
[2020-05-24] MEDS: Meropenem 1 GM in NS 55 ML IVPB SCH ×2 (02:05→13:16)
--- NOTE | 2020-05-24 04:00 | NUR ---
NURSE NOTES: Complete bed bath with bed changed done.
--- NOTE | 2020-05-24 05:00 | NUR ---
NURSE NOTES: AM labs drawn from central line.
[2020-05-24 05:39] LABS: HEMATOCRIT 27.7 % (37.0-47.0); HEMOGLOBIN 9.5 G/DL (12.0-16.0); MEAN CORPUSCULAR VOLUME 91 FL (80-99); PLATELET COUNT 226 K/UL (150-450); RED BLOOD COUNT 3.06 M/UL (4.20-5.40); RED CELL DISTRIBUTION WIDTH 13.2 % (11.6-14.8); WHITE BLOOD COUNT 14.2 K/UL (4.8-10.8)
[2020-05-24 05:56] LABS: ANION GAP 7 mmol/L (5-15); BLOOD UREA NITROGEN 43 mg/dL (7-18); CALCIUM 8.4 MG/DL (8.5-10.1); CARBON DIOXIDE 25 MMOL/L (21-32); CHLORIDE 109 MMOL/L (98-107); CREATININE 0.7 MG/DL (0.55-1.30); POTASSIUM 4.3 MMOL/L (3.5-5.1); SODIUM 141 MMOL/L (136-145)
[2020-05-24] MEDS: NovoLOG Insulin Flexpen SUBQ SCH ×4 (06:00→23:52)
--- NOTE | 2020-05-24 06:00 | NUR ---
NURSE NOTES: Accucheck 112mg/dl no coverage
--- NOTE | 2020-05-24 06:32 | General Progress Note ---
Assessment/Plan Problem List: (1) COVID-19 ICD Codes: U07.1 - COVID-19 SNOMED: 576323417 (2) Elevated d-dimer ICD Codes: R79.89 - Other specified abnormal findings of blood chemistry SNOMED: 068986623 (3) Rapid atrial fibrillation ICD Codes: I48.91 - Unspecified atrial fibrillation SNOMED: 142206048 (4) Sepsis ICD Codes: A41.9 - Sepsis, unspecified organism SNOMED: 02141237 (5) Respiratory failure ICD Codes: J96.90 - Respiratory failure, unspecified, unspecified whether with hypoxia or hypercapnia SNOMED: 959949570 (6) Renal failure ICD Codes: N19 - Unspecified kidney failure SNOMED: 30364227 (7) Hypernatremia ICD Codes: E87.0 - Hyperosmolality and hypernatremia SNOMED: 700544854 (8) T2DM (type 2 diabetes mellitus) ICD Codes: E11.9 - Type 2 diabetes mellitus without complications SNOMED: 39372186 Status: unchanged Assessment/Plan: no need for basal insulin continue Novolog sliding scale every 4 hours hypoglycemia protocol in order Subjective Allergies: Coded Allergies: DIVALPROEX SODIUM (Verified Allergy, Unknown, 05/14/20) PENICILLINS (Verified Allergy, Unknown, 05/14/20) Subjective events noted and interval notes reviewed glucose values are stable Item Value Date Time Bedside Blood Glucose 99 mg/dl 05/24/20 0600 Bedside Blood Glucose 112 mg/dl 05/23/20 2354 Bedside Blood Glucose 139 mg/dl H 05/23/20 2152 Bedside Blood Glucose 106 mg/dl 05/23/20 1755 Bedside Blood Glucose 116 mg/dl 05/23/20 1200 Bedside Blood Glucose 86 mg/dl 05/23/20 0900 Bedside Blood Glucose 103 mg/dl 05/23/20 0600 Bedside Blood Glucose 114 mg/dl 05/23/20 0000 Objective Last 24 Hour Vital Signs Date Time Temp Pulse Resp B/P (MAP) Pulse Ox O2 Delivery O2 Flow Rate FiO2 05/24/20 00:51 96 Cool Aerosol 12.0 40 05/24/20 00:15 63 125/57 05/23/20 22:00 64 24 129/58 (81) 90 05/23/20 21:00 67 21 128/58 (81) 95 05/23/20 20:00 98.2 66 25 130/59 (82) 87 05/23/20 20:00 40 05/23/20 19:00 60 18 138/60 (86) 96 05/23/20 18:30 95 Cool Aerosol 12.0 40 05/23/20 18:00 63 19 136/52 (80) 98 05/23/20 17:00 65 22 129/56 (80) 97 05/23/20 16:58 127/56 05/23/20 16:00 40 05/23/20 16:00 Mechanical Ventilator 05/23/20 16:00 98.5 72 30 129/60 (83) 95 05/23/20 16:00 69 05/23/20 15:00 68 28 129/55 (79) 97 05/23/20 14:00 67 24 120/54 (76) 93 05/23/20 13:00 73 22 114/55 (74) 96 05/23/20 12:25 97 05/23/20 12:25 97 Cool Aerosol 12.0 40 05/23/20 12:00 64 05/23/20 12:00 Mechanical Ventilator 05/23/20 12:00 40 05/23/20 12:00 98.6 64 24 121/54 (76) 98 05/23/20 11:05 61 20 40 05/23/20 11:00 61 20 120/60 (80) 98 05/23/20 10:00 66 18 117/62 (80) 98 05/23/20 09:00 62 17 105/49 (67) 98 05/23/20 08:23 40 05/23/20 08:23 59 17 40 05/23/20 08:00 98.3 59 14 101/48 (65) 99 05/23/20 08:00 Mechanical Ventilator 05/23/20 08:00 40 05/23/20 08:00 63 05/23/20 07:00 62 14 108/54 (72) 99 05/23/20 06:45 61 17 40 Intake and Output 05/23/20 05/24/20 19:00 07:00 Intake Total 1730 ml 740 ml Output Total 975 ml 650 ml Balance 755 ml 90 ml Free Water 55 ml 80 ml IV Total 955 ml Tube Feeding 720 ml 660 ml Output Urine Total 975 ml 650 ml # Bowel Movements 2 Laboratory Tests 05/23/20 10:23: Arterial Blood pH 7.462H, Arterial Blood Partial Pressure CO2 29.5L, Arterial Blood Partial Pressure O2 101.8H, Arterial Blood HCO3 20.6L, Arterial Blood Oxygen Saturation 96.6, Arterial Blood Base Excess -2.5L, Anthony Test Positive 05/23/20 21:44: POC Whole Blood Glucose 139H 05/23/20 23:51: POC Whole Blood Glucose 112H 05/24/20 04:30: White Blood Count 14.2H, Red Blood Count 3.06L, Hemoglobin 9.5L, Hematocrit 27.7L, Mean Corpuscular Volume 91, Mean Corpuscular Hemoglobin 31.0, Mean Corpuscular Hemoglobin Concent 34.2, Red Cell Distribution Width 13.2, Platelet Count 226, Mean Platelet Volume 8.5, Neutrophils (%) (Auto) , Lymphocytes (%) ( Auto) , Monocytes (%) (Auto) , Eosinophils (%) (Auto) , Basophils (%) (Auto) , Neutrophils % (Manual) [Pending], Lymphocytes % (Manual) [Pending], Platelet Estimate [Pending], Platelet Morphology [Pending], Sodium Level 141, Potassium Level 4.3, Chloride Level 109H, Carbon Dioxide Level 25, Anion Gap 7, Blood Urea Nitrogen 43H, Creatinine 0.7, Estimat Glomerular Filtration Rate > 60, Glucose Level 122H, Calcium Level 8.4L Height (Feet): 5 Height (Inches): 4.00 Weight (Pounds): 149 Objective Current Medications Medications (Trade) Dose Ordered Sig/Morgan Route PRN Reason Start Time Stop Time Status Last Admin Dose Admin Acetaminophen (Tylenol) 650 mg Q4H PRN GT Temp >100.5 05/16/20 06:15 06/15/20 06:14 05/21/20 20:01 Acetaminophen (Tylenol) 650 mg Q4H PRN RECTAL Temp >100.5 05/16/20 19:45 06/15/20 19:44 05/17/20 18:30 Chlorhexidine Gluconate (Lilliam-Hex 2%) 1 applic DAILY@2000 TOPIC 05/15/20 20:00 08/13/20 19:59 05/23/20 20:22 Dexamethasone Sodium Phosphate (Decadron 10mg/ ml Inj) 6 mg DAILY IV 05/16/20 09:00 05/25/20 08:59 05/23/20 09:36 Dextrose (Dextrose 50%) 25 ml Q30M PRN IV Hypoglycemia 05/22/20 00:00 08/20/20 00:00 Dextrose (Dextrose 50%) 50 ml Q30M PRN IV Hypoglycemia 05/22/20 00:00 08/20/20 00:00 Insulin Aspart (NovoLOG) EVERY 6 HOURS SUBQ 05/22/20 06:00 08/20/20 05:59 05/22/20 18:00 Insulin Detemir (Levemir) 10 units Q12HR SUBQ 05/22/20 09:00 08/20/20 08:59 05/23/20 21:52 Meropenem 1 gm/ Sodium Chloride 55 ml @ 110 mls/hr Q12HR@0200,1400 IVPB 05/17/20 14:00 05/26/20 23:59 05/24/20 02:05 Midodrine (Pro-Amatine) 10 mg TID ORAL 05/23/20 09:00 08/21/20 08:59 05/23/20 18:03 Norepinephrine Bitartrate 8 mg/ Dextrose 250 ml @ 0 mls/hr Q24H IV 05/20/20 18:00 06/19/20 17:59 05/22/20 05:45 Pantoprazole (Protonix) 40 mg DAILY IV 05/15/20 09:00 06/14/20 08:59 05/23/20 09:36 Phenylephrine HCl 100 mg/Dextrose 250 ml @ 0 mls/hr Q24H IV 05/15/20 00:15 06/14/20 00:14 05/15/20 13:28 Sodium Chloride 1,000 ml @ 75 mls/hr [id number] IV 05/15/20 06:45 06/14/20 06:44 05/23/20 21:15 Vasopressin 100 units/Sodium Chloride 100 ml @ 0 mls/hr Q24H IV 05/15/20 00:15 06/14/20 00:14 Zinc Oxide (Zinc Oxide) 1 applic TIDPRN PRN TOPIC Abdominal cramps 05/20/20 13:00 08/18/20 12:59 Chau Shelley MD May 24, 2020 06:32
--- NOTE | 2020-05-24 07:00 | NUR ---
NURSE NOTES: No resp. distress noted Needs frequent suctioning. vss
--- NOTE | 2020-05-24 07:04 | General Progress Note ---
Assessment/Plan Status: unchanged Assessment/Plan: 1. History of CVA. 2. Dementia. 3. Dysphagia with G-tube. 4. Cachexia. 5. Diabetes. 6. Pressure ulcers. 7. Hypothyroidism. 8. Legal blindness. 9. Currently COVID positive. GT has trice removed NGTF GT replacement when more stable icu care fu labs Subjective ROS Limited/Unobtainable: No Allergies: Coded Allergies: DIVALPROEX SODIUM (Verified Allergy, Unknown, 05/14/20) PENICILLINS (Verified Allergy, Unknown, 05/14/20) Objective Last 24 Hour Vital Signs Date Time Temp Pulse Resp B/P (MAP) Pulse Ox O2 Delivery O2 Flow Rate FiO2 05/24/20 06:30 84 12 05/24/20 06:00 88 27 138/60 (86) 88 05/24/20 05:00 81 25 121/61 (81) 89 05/24/20 04:00 Mechanical Ventilator 05/24/20 04:00 98.4 70 22 124/59 (80) 93 05/24/20 04:00 64 05/24/20 04:00 40 05/24/20 03:00 68 21 137/65 (89) 95 05/24/20 02:00 63 18 125/57 (79) 95 05/24/20 01:00 67 20 123/58 (79) 91 05/24/20 00:51 96 Cool Aerosol 12.0 40 05/24/20 00:15 63 125/57 05/24/20 00:00 Mechanical Ventilator 05/24/20 00:00 40 05/24/20 00:00 66 05/24/20 00:00 98.0 64 19 140/62 (88) 98 05/23/20 23:00 63 21 134/65 (88) 97 05/23/20 22:00 64 24 129/58 (81) 90 05/23/20 21:00 67 21 128/58 (81) 95 05/23/20 20:00 63 05/23/20 20:00 98.2 66 25 130/59 (82) 87 05/23/20 20:00 40 05/23/20 20:00 Mechanical Ventilator 05/23/20 19:00 60 18 138/60 (86) 96 05/23/20 18:30 95 Cool Aerosol 12.0 40 05/23/20 18:00 63 19 136/52 (80) 98 05/23/20 17:00 65 22 129/56 (80) 97 05/23/20 16:58 127/56 05/23/20 16:00 40 05/23/20 16:00 Mechanical Ventilator 05/23/20 16:00 98.5 72 30 129/60 (83) 95 05/23/20 16:00 69 05/23/20 15:00 68 28 129/55 (79) 97 05/23/20 14:00 67 24 120/54 (76) 93 05/23/20 13:00 73 22 114/55 (74) 96 05/23/20 12:25 97 05/23/20 12:25 97 Cool Aerosol 12.0 40 05/23/20 12:00 64 05/23/20 12:00 Mechanical Ventilator 05/23/20 12:00 40 05/23/20 12:00 98.6 64 24 121/54 (76) 98 05/23/20 11:05 61 20 40 05/23/20 11:00 61 20 120/60 (80) 98 05/23/20 10:00 66 18 117/62 (80) 98 05/23/20 09:00 62 17 105/49 (67) 98 05/23/20 08:23 40 05/23/20 08:23 59 17 40 05/23/20 08:00 98.3 59 14 101/48 (65) 99 05/23/20 08:00 Mechanical Ventilator 05/23/20 08:00 40 05/23/20 08:00 63 Intake and Output 05/23/20 05/24/20 19:00 07:00 Intake Total 1730 ml 740 ml Output Total 975 ml 650 ml Balance 755 ml 90 ml Free Water 55 ml 80 ml IV Total 955 ml Tube Feeding 720 ml 660 ml Output Urine Total 975 ml 650 ml # Bowel Movements 2 Laboratory Tests 05/23/20 10:23: Arterial Blood pH 7.462H, Arterial Blood Partial Pressure CO2 29.5L, Arterial Blood Partial Pressure O2 101.8H, Arterial Blood HCO3 20.6L, Arterial Blood Oxygen Saturation 96.6, Arterial Blood Base Excess -2.5L, Anthony Test Positive 05/23/20 21:44: POC Whole Blood Glucose 139H 05/23/20 23:51: POC Whole Blood Glucose 112H 05/24/20 04:30: White Blood Count 14.2H, Red Blood Count 3.06L, Hemoglobin 9.5L, Hematocrit 27.7L, Mean Corpuscular Volume 91, Mean Corpuscular Hemoglobin 31.0, Mean Corpuscular Hemoglobin Concent 34.2, Red Cell Distribution Width 13.2, Platelet Count 226, Mean Platelet Volume 8.5, Neutrophils (%) (Auto) , Lymphocytes (%) ( Auto) , Monocytes (%) (Auto) , Eosinophils (%) (Auto) , Basophils (%) (Auto) , Neutrophils % (Manual) [Pending], Lymphocytes % (Manual) [Pending], Platelet Estimate [Pending], Platelet Morphology [Pending], Sodium Level 141, Potassium Level 4.3, Chloride Level 109H, Carbon Dioxide Level 25, Anion Gap 7, Blood Urea Nitrogen 43H, Creatinine 0.7, Estimat Glomerular Filtration Rate > 60, Glucose Level 122H, Calcium Level 8.4L Height (Feet): 5 Height (Inches): 4.00 Weight (Pounds): 149 General Appearance: alert EENT: normal ENT inspection Neck: supple Cardiovascular: normal rate Respiratory/Chest: decreased breath sounds Abdomen: hypoactive bowel sounds Extremities: non-tender Jhon Matos MD May 24, 2020 07:04
--- NOTE | 2020-05-24 07:23 | NUR ---
NURSE HAND-OFF REPORT: Latest Vital Signs: Temperature 98.4 , Pulse 88 , B/P 138 /60 , Respiratory Rate 27 , O2 SAT 88 , Mechanical Ventilator, O2 Flow Rate 12.0 . Vital Sign Comment: EKG Rhythm: Sinus Rhythm Rhythm change?: N Notified?: Marcella Morillo MD Response: No New Orders Received Latest Garza Fall Score: 50 Fall Risk: High Risk Safety Measures: Call light Within Reach, Bed Alarm Zone 1, Side Rails Side Rails x2, Bed position Low and Locked. Fall Precautions: Door Sign Report given to Marion RUIZ.
--- NOTE | 2020-05-24 07:24 | NUR ---
NURSE NOTES: Pt received from SARA Zambrano. Pt is awake, opens eyes spontaneously, gag reflex is hypoactive, pt does not follow commands, pupils are equal and round 3 mm bilaterally with sluggish rxn to light. 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 radial and dorsalis pedis pulses 2+. 1+ edema noted to hands. Pt is orally intubated with a 7.5 ETT to T-piece noted 23 cm at the lip - on FiO2 40%. All lung lobes sound diminished upon auscultation. Abd is flat, soft, and non-tender, with active bowel sounds to all quadrants. Pt has a right nares NGT running Glucerna 1.2 at 60 cc/hr. GT site noted with small amount of maroon, thick drainage - Dr Matos made aware - area covered with abd pad. F/C noted draining yellow, clear urine. Skin alterations noted. Pt on DARIN mattress. Pt has a RIJ TLC with dry and intact dressing running 1/2 NS at 75 cc/hr. Bed in lowest position, alarm on, side rails up x 2. Call light within reach. Will continue to monitor pt.
--- NOTE | 2020-05-24 07:57 | NUR ---
Social Work This Sw contacted the [employer], Quinten Lucio @ [phone] to discuss changes for code status. Awaiting call back at this time.
[2020-05-24] MEDS: Pantoprazole Inj IV SCH (08:12)
[2020-05-24] MEDS: dexAMETHasone 10mg/ml Inj IV SCH (08:12)
[2020-05-24] MEDS: Midodrine 10mg tab ORAL SCH ×3 (08:12→17:58)
[2020-05-24] MEDS: Levemir Flexpen SUBQ SCH ×2 (08:13→20:01)
--- NOTE | 2020-05-24 08:15 | NUR ---
RD ASSESSMENT & RECOMMENDATIONS SEE CARE ACTIVITY FOR COMPLETE ASSESSMENT DAILY ESTIMATED NEEDS: Needs based on Critical care, 57.8kh abw 22-30 kcals/kg 5998-5784 total kcals 1.2-2 g protein/kg 69-116 g total protein 25-30 mL/kg 9306-1109 total fluid mLs NUTRITION DIAGNOSIS: Swallowing difficulty r/t h/o CVA, dysphagia as evidenced by pt is GT dep, now intubated w/ resp distress. CURRENT TF:Glucerna 1.2@ 60ml/hr x24 hrs ENTERAL NUTRITION RECOMMENDATIONS: Glucerna 1.2 @ 60ml/hr x24 hrs to provide 1440ml, 1728 kcal, 86g pro, 1159ml free H2O -> With hemodynamic stability, maintain current TF @ goal. - Flush per MD. HOB over 30 degrees ADDITIONAL RECOMMENDATIONS: 1) Monitor hemodynamic stablity: off pressor support 2) Obtain an accurate wt: per MD pt w/ 'cachexia' EMR wt: 117.8kg vs am wts: 67.6kg 3) Wound healing: TF provides 100% RDI add Vit C 250mg QD + Flavio BID 4) Monitor lytes, replete as needed 5) Monitor BGs closely w/ Decadron: BGs improved
--- NOTE | 2020-05-24 09:00 | NUR ---
NURSE NOTES: Dr Diop assessing pt at bedside and reviewing chart.
--- NOTE | 2020-05-24 09:01 | General Progress Note ---
Assessment/Plan Status: unchanged Assessment/Plan: 70-year-old female history of dementia, cachexia, dysphasia G-tube dependent feeding presents for evaluation of rapid heart rate and hypotension. # Septic with element of cardiogenic shock Etiology COVID 19 vs UTI vs bacteremia and NSTEMI Bcx POSITIVE WITH G+ Cocci and U cx 05/14 Proteus Mirabillis Continue Meropenem DAY 8 Vancomycin stopped stopped Cefepime Dexamethasone due to hypoxia on day 10. Asked Dr. Enriquez about stopping steroids today. Leukocytosis improved. # Acute respiratory failure Intubated and not ready to wean off ICU care appreciated Dr. Enriquez consulted Ventilator management per ICU-pulmonary FiO2 40 % today. T piece. Await final recommendations regarding need for possible tracheostomy. # SVT vs A. Flutter s/p DC x 3 # NSTEMI HR is controlled in the 100 range and tolerating Digoxin Vasopressors in place Levophed at [address] Morillo requested and TTE requested and poor window. Will need repeat TTE when able to safely complete. Limited due to covid positive Troponin 3.4 now 0.7 EKG 05/17 NSR # AG metabolic acidosis Ddx lactic acidosis Improved. # Hyperglycemia r/o DKA ABG and Ketones negative Endocrine consult with Dr. Shelley IV insulin gtt stopped and in SQ insulin coverage now # Hypernatremia Improving Monitor BMP IVF to 1/2 NS lower rate 75 cc hr continue # COVID 19 Positive on admission. Original infection > 15 days ago, do not qualify for Revdisimir or plasma On Dexamethasone this admission Contact and droplet isolation # Dysphagia PEG REMOVED 05/16 Carlo Vargas consulted and appreciate follow up and final plan for PEG replacement PENDING. PEG site with dressing in place and OFF PEG for now. NGT placed and Tube feeds started 05/18 and being tolerated at 45 cc hr Glucerna 1.2 # Severe protein caloric malnutrition with Albumin 1.5 RD follow up # Thrombocytopenia Platelets down from 80 K to 64 K to 66 K ( OFF Heparin ) and UP to 84 K and now 160 K 05/17 dc heparin, use SCD, order US Liver, HIT Ab, HIV negative US legs to r.o [place] [facility] # Hypokalemia Improved # Dementia Baseline # FULL CODE SW follow up to reach out to DPOA and consider change in code status due to high morbidity and risk of inpatient mortality. > 50 min spent in coordination of care and consultation with physicians and RN. Subjective Date patient seen: May 24, 2020 Time patient seen: 09:00 ROS Limited/Unobtainable: Yes Allergies: Coded Allergies: DIVALPROEX SODIUM (Verified Allergy, Unknown, 05/14/20) PENICILLINS (Verified Allergy, Unknown, 05/14/20) All Systems: reviewed and negative except above Subjective Non verbal, intubated Objective Last 24 Hour Vital Signs Date Time Temp Pulse Resp B/P (MAP) Pulse Ox O2 Delivery O2 Flow Rate FiO2 05/24/20 08:01 91 Cool Aerosol 12.0 40 05/24/20 07:00 84 26 120/65 (83) 90 05/24/20 06:30 84 12 05/24/20 06:00 88 27 138/60 (86) 88 05/24/20 05:00 81 25 121/61 (81) 89 05/24/20 04:00 Mechanical Ventilator 05/24/20 04:00 98.4 70 22 124/59 (80) 93 05/24/20 04:00 64 05/24/20 04:00 40 05/24/20 03:00 68 21 137/65 (89) 95 05/24/20 02:00 63 18 125/57 (79) 95 05/24/20 01:00 67 20 123/58 (79) 91 05/24/20 00:51 96 Cool Aerosol 12.0 40 05/24/20 00:15 63 125/57 05/24/20 00:00 Mechanical Ventilator 05/24/20 00:00 40 05/24/20 00:00 66 05/24/20 00:00 98.0 64 19 140/62 (88) 98 05/23/20 23:00 63 21 134/65 (88) 97 05/23/20 22:00 64 24 129/58 (81) 90 05/23/20 21:00 67 21 128/58 (81) 95 05/23/20 20:00 63 05/23/20 20:00 98.2 66 25 130/59 (82) 87 05/23/20 20:00 40 05/23/20 20:00 Mechanical Ventilator 05/23/20 19:00 60 18 138/60 (86) 96 05/23/20 18:30 95 Cool Aerosol 12.0 40 05/23/20 18:00 63 19 136/52 (80) 98 05/23/20 17:00 65 22 129/56 (80) 97 05/23/20 16:58 127/56 05/23/20 16:00 40 05/23/20 16:00 Mechanical Ventilator 05/23/20 16:00 98.5 72 30 129/60 (83) 95 05/23/20 16:00 69 05/23/20 15:00 68 28 129/55 (79) 97 05/23/20 14:00 67 24 120/54 (76) 93 05/23/20 13:00 73 22 114/55 (74) 96 05/23/20 12:25 97 05/23/20 12:25 97 Cool Aerosol 12.0 40 05/23/20 12:00 64 05/23/20 12:00 Mechanical Ventilator 05/23/20 12:00 40 05/23/20 12:00 98.6 64 24 121/54 (76) 98 05/23/20 11:05 61 20 40 05/23/20 11:00 61 20 120/60 (80) 98 05/23/20 10:00 66 18 117/62 (80) 98 05/23/20 09:00 62 17 105/49 (67) 98 Intake and Output 05/23/20 05/24/20 19:00 07:00 Intake Total 1730 ml 1755 ml Output Total 975 ml 700 ml Balance 755 ml 1055 ml Free Water 55 ml 80 ml IV Total 955 ml 955 ml Tube Feeding 720 ml 720 ml Output Urine Total 975 ml 700 ml # Bowel Movements 2 Laboratory Tests 05/23/20 10:23: Arterial Blood pH 7.462H, Arterial Blood Partial Pressure CO2 29.5L, Arterial Blood Partial Pressure O2 101.8H, Arterial Blood HCO3 20.6L, Arterial Blood Oxygen Saturation 96.6, Arterial Blood Base Excess -2.5L, Anthony Test Positive 05/23/20 21:44: POC Whole Blood Glucose 139H 05/23/20 23:51: POC Whole Blood Glucose 112H 05/24/20 04:30: White Blood Count 14.2H, Red Blood Count 3.06L, Hemoglobin 9.5L, Hematocrit 27.7L, Mean Corpuscular Volume 91, Mean Corpuscular Hemoglobin 31.0, Mean Corpuscular Hemoglobin Concent 34.2, Red Cell Distribution Width 13.2, Platelet Count 226, Mean Platelet Volume 8.5, Neutrophils (%) (Auto) , Lymphocytes (%) ( Auto) , Monocytes (%) (Auto) , Eosinophils (%) (Auto) , Basophils (%) (Auto) , Neutrophils % (Manual) [Pending], Lymphocytes % (Manual) [Pending], Platelet Estimate [Pending], Platelet Morphology [Pending], Sodium Level 141, Potassium Level 4.3, Chloride Level 109H, Carbon Dioxide Level 25, Anion Gap 7, Blood Urea Nitrogen 43H, Creatinine 0.7, Estimat Glomerular Filtration Rate > 60, Glucose Level 122H, Calcium Level 8.4L Height (Feet): 5 Height (Inches): 4.00 Weight (Pounds): 149 General Appearance: WD/WN EENT: PERRL/EOMI Cardiovascular: normal rate Respiratory/Chest: decreased breath sounds Abdomen: non tender 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
--- NOTE | 2020-05-24 10:00 | NUR ---
NURSE NOTES: Pt repositioned. Dr Enriquez assessing pt at bedside.
--- NOTE | 2020-05-24 10:20 | Cardiac Electrophysiology PN ---
Assessment/Plan Assessment/Plan 1. Ipu-HR-syjrreomh myocardial infarction. Her troponin was 1.258,1.2,1.9, 3.4 and the down to 0.7 EKG does not show any acute ST-T wave abnormality and certainly no ST elevation. Due to septic shock, DCCV and Renal failure. The echocardiogram had poor windows. 2. PAF with RVR. S/P DCCV 3 times No more fib or accelerated junctional rhythm. Can not use beta-ramakrishna or calcium-channel ramakrishna as the patient is still on Levophed. Dig level is 1.6 3. S/P Septic shock. Off Levophed, on Midodrine and antibiotic 4. Severe hypernatremia with sodium of 174, BUN of 131, creatinine 2.7 due to dehydration. Sodium is 155 with BUN of 91 and creatinine of 1.9 with IV fluids. 5. Lactic acidosis on antibiotic. 6. Dysphagia, status post PEG placement. GT has trice removed on 05/18 still some drainage from the GT site NGTF GT replacement when more stable per Dr Matos 7. History of CVA and dementia. 8. Respiratory failure, on T piece today DW RN Subjective Subjective In ICU in SR with no atrial fib or Junctional tach. Off Levophed and off the Vent on T piece In Covid isolation. PEG out on 05/18 and still getting NGT feeding Objective Last 24 Hour Vital Signs Date Time Temp Pulse Resp B/P (MAP) Pulse Ox O2 Delivery O2 Flow Rate FiO2 05/24/20 10:00 73 26 144/55 (84) 92 05/24/20 09:00 73 24 123/72 (89) 94 05/24/20 08:01 91 Cool Aerosol 12.0 40 05/24/20 08:00 98.6 82 27 126/72 (90) 91 05/24/20 08:00 40 05/24/20 08:00 82 05/24/20 07:00 84 26 120/65 (83) 90 05/24/20 06:30 84 12 05/24/20 06:00 88 27 138/60 (86) 88 05/24/20 05:00 81 25 121/61 (81) 89 05/24/20 04:00 Mechanical Ventilator 05/24/20 04:00 98.4 70 22 124/59 (80) 93 05/24/20 04:00 64 05/24/20 04:00 40 05/24/20 03:00 68 21 137/65 (89) 95 05/24/20 02:00 63 18 125/57 (79) 95 05/24/20 01:00 67 20 123/58 (79) 91 05/24/20 00:51 96 Cool Aerosol 12.0 40 05/24/20 00:15 63 125/57 05/24/20 00:00 Mechanical Ventilator 05/24/20 00:00 40 05/24/20 00:00 66 05/24/20 00:00 98.0 64 19 140/62 (88) 98 05/23/20 23:00 63 21 134/65 (88) 97 05/23/20 22:00 64 24 129/58 (81) 90 05/23/20 21:00 67 21 128/58 (81) 95 05/23/20 20:00 63 05/23/20 20:00 98.2 66 25 130/59 (82) 87 05/23/20 20:00 40 05/23/20 20:00 Mechanical Ventilator 05/23/20 19:00 60 18 138/60 (86) 96 05/23/20 18:30 95 Cool Aerosol 12.0 40 05/23/20 18:00 63 19 136/52 (80) 98 05/23/20 17:00 65 22 129/56 (80) 97 05/23/20 16:58 127/56 05/23/20 16:00 40 05/23/20 16:00 Mechanical Ventilator 05/23/20 16:00 98.5 72 30 129/60 (83) 95 05/23/20 16:00 69 05/23/20 15:00 68 28 129/55 (79) 97 05/23/20 14:00 67 24 120/54 (76) 93 05/23/20 13:00 73 22 114/55 (74) 96 05/23/20 12:25 97 05/23/20 12:25 97 Cool Aerosol 12.0 40 05/23/20 12:00 64 05/23/20 12:00 Mechanical Ventilator 05/23/20 12:00 40 05/23/20 12:00 98.6 64 24 121/54 (76) 98 05/23/20 11:05 61 20 40 05/23/20 11:00 61 20 120/60 (80) 98 Intake and Output 05/23/20 05/24/20 19:00 07:00 Intake Total 1730 ml 1755 ml Output Total 975 ml 700 ml Balance 755 ml 1055 ml Free Water 55 ml 80 ml IV Total 955 ml 955 ml Tube Feeding 720 ml 720 ml Output Urine Total 975 ml 700 ml # Bowel Movements 2 Laboratory Tests Test 05/23/20 10:23 05/23/20 21:44 05/23/20 23:51 05/24/20 04:30 Arterial Blood pH 7.462 (7.350-7.450) Arterial Blood Partial Pressure CO2 29.5 mmHg (35.0-45.0) L Arterial Blood Partial Pressure O2 101.8 mmHg (75.0-100.0) H Arterial Blood HCO3 20.6 mmol/L (22.0-26.0) L Arterial Blood Oxygen Saturation 96.6 % (95-100) Arterial Blood Base Excess -2.5 (-2-2) L Anthony Test Positive POC Whole Blood Glucose 139 MG/DL (74-106) H 112 MG/DL (74-106) H White Blood Count 14.2 K/UL (4.8-10.8) H Red Blood Count 3.06 M/UL (4.20-5.40) L Hemoglobin 9.5 G/DL (12.0-16.0) L Hematocrit 27.7 % (37.0-47.0) L Mean Corpuscular Volume 91 FL (80-99) Mean Corpuscular Hemoglobin 31.0 PG (27.0-31.0) Mean Corpuscular Hemoglobin Concent 34.2 G/DL (32.0-36.0) Red Cell Distribution Width 13.2 % (11.6-14.8) Platelet Count 226 K/UL (150-450) Mean Platelet Volume 8.5 FL (6.5-10.1) Neutrophils (%) (Auto) % (45.0-75.0) Lymphocytes (%) (Auto) % (20.0-45.0) Monocytes (%) (Auto) % (1.0-10.0) Eosinophils (%) (Auto) % (0.0-3.0) Basophils (%) (Auto) % (0.0-2.0) Differential Total Cells Counted 100 Neutrophils % (Manual) 91 % (45-75) H Lymphocytes % (Manual) 6 % (20-45) L Monocytes % (Manual) 3 % (1-10) Eosinophils % (Manual) 0 % (0-3) Basophils % (Manual) 0 % (0-2) Band Neutrophils 0 % (0-8) Platelet Estimate Adequate Platelet Morphology Normal Polychromasia 1+ Hypochromasia 1+ Sodium Level 141 MMOL/L (136-145) Potassium Level 4.3 MMOL/L (3.5-5.1) Chloride Level 109 MMOL/L (98-107) H Carbon Dioxide Level 25 MMOL/L (21-32) Anion Gap 7 mmol/L (5-15) Blood Urea Nitrogen 43 mg/dL (7-18) H Creatinine 0.7 MG/DL (0.55-1.30) Estimat Glomerular Filtration Rate > 60 mL/min (>60) Glucose Level 122 MG/DL (74-106) H Calcium Level 8.4 MG/DL (8.5-10.1) L Objective HEAD AND NECK: Show no JVD. She is orally intubated on T piece. NGT LUNGS: Coarse rhonchi. CARDIOVASCULAR: Shows regular S1 and S2 with no gallop. ABDOMEN: Soft. G-tube site is covered. EXTREMITIES: Show no pitting edema. Norman Morillo MD May 24, 2020 10:20
--- NOTE | 2020-05-24 10:32 | Pulmonology Progress Note ---
Subjective ROS Limited/Unobtainable: Yes Interval Events: Unable to extubtae due to poor mental status Constitutional: Reports: no symptoms HEENT: Repors: no symptoms Respiratory: Reports: no symptoms Cardiovascular: Reports: no symptoms Gastrointestinal/Abdominal: Reports: no symptoms Genitourinary: Reports: no symptoms Allergies: Coded Allergies: DIVALPROEX SODIUM (Verified Allergy, Unknown, 05/14/20) PENICILLINS (Verified Allergy, Unknown, 05/14/20) All Systems: reviewed and negative except above Objective Last 24 Hour Vital Signs Date Time Temp Pulse Resp B/P (MAP) Pulse Ox O2 Delivery O2 Flow Rate FiO2 05/24/20 10:00 73 26 144/55 (84) 92 05/24/20 09:00 73 24 123/72 (89) 94 05/24/20 08:01 91 Cool Aerosol 12.0 40 05/24/20 08:00 98.6 82 27 126/72 (90) 91 05/24/20 08:00 40 05/24/20 08:00 82 05/24/20 07:00 84 26 120/65 (83) 90 05/24/20 06:30 84 12 05/24/20 06:00 88 27 138/60 (86) 88 05/24/20 05:00 81 25 121/61 (81) 89 05/24/20 04:00 Mechanical Ventilator 05/24/20 04:00 98.4 70 22 124/59 (80) 93 05/24/20 04:00 64 05/24/20 04:00 40 05/24/20 03:00 68 21 137/65 (89) 95 05/24/20 02:00 63 18 125/57 (79) 95 05/24/20 01:00 67 20 123/58 (79) 91 05/24/20 00:51 96 Cool Aerosol 12.0 40 05/24/20 00:15 63 125/57 05/24/20 00:00 Mechanical Ventilator 05/24/20 00:00 40 05/24/20 00:00 66 05/24/20 00:00 98.0 64 19 140/62 (88) 98 05/23/20 23:00 63 21 134/65 (88) 97 05/23/20 22:00 64 24 129/58 (81) 90 05/23/20 21:00 67 21 128/58 (81) 95 05/23/20 20:00 63 05/23/20 20:00 98.2 66 25 130/59 (82) 87 05/23/20 20:00 40 05/23/20 20:00 Mechanical Ventilator 05/23/20 19:00 60 18 138/60 (86) 96 05/23/20 18:30 95 Cool Aerosol 12.0 40 05/23/20 18:00 63 19 136/52 (80) 98 05/23/20 17:00 65 22 129/56 (80) 97 05/23/20 16:58 127/56 05/23/20 16:00 40 05/23/20 16:00 Mechanical Ventilator 05/23/20 16:00 98.5 72 30 129/60 (83) 95 05/23/20 16:00 69 05/23/20 15:00 68 28 129/55 (79) 97 05/23/20 14:00 67 24 120/54 (76) 93 05/23/20 13:00 73 22 114/55 (74) 96 05/23/20 12:25 97 05/23/20 12:25 97 Cool Aerosol 12.0 40 05/23/20 12:00 64 05/23/20 12:00 Mechanical Ventilator 05/23/20 12:00 40 05/23/20 12:00 98.6 64 24 121/54 (76) 98 05/23/20 11:05 61 20 40 05/23/20 11:00 61 20 120/60 (80) 98 Intake and Output 05/23/20 05/24/20 19:00 07:00 Intake Total 1730 ml 1755 ml Output Total 975 ml 700 ml Balance 755 ml 1055 ml Free Water 55 ml 80 ml IV Total 955 ml 955 ml Tube Feeding 720 ml 720 ml Output Urine Total 975 ml 700 ml # Bowel Movements 2 General Appearance: no acute distress HEENT: normocephalic Respiratory: chest wall non-tender, lungs clear Cardiovascular: normal peripheral pulses, normal rate Abdomen: normal bowel sounds Laboratory Tests 05/23/20 21:44: POC Whole Blood Glucose 139H 05/23/20 23:51: POC Whole Blood Glucose 112H 05/24/20 04:30: White Blood Count 14.2H, Red Blood Count 3.06L, Hemoglobin 9.5L, Hematocrit 27.7L, Mean Corpuscular Volume 91, Mean Corpuscular Hemoglobin 31.0, Mean Corpuscular Hemoglobin Concent 34.2, Red Cell Distribution Width 13.2, Platelet Count 226, Mean Platelet Volume 8.5, Neutrophils (%) (Auto) , Lymphocytes (%) ( Auto) , Monocytes (%) (Auto) , Eosinophils (%) (Auto) , Basophils (%) (Auto) , Differential Total Cells Counted 100, Neutrophils % (Manual) 91H, Lymphocytes % (Manual) 6L, Monocytes % (Manual) 3, Eosinophils % (Manual) 0, Basophils % ( Manual) 0, Band Neutrophils 0, Platelet Estimate Adequate, Platelet Morphology Normal, Polychromasia 1+, Hypochromasia 1+, Sodium Level 141, Potassium Level 4.3, Chloride Level 109H, Carbon Dioxide Level 25, Anion Gap 7, Blood Urea Nitrogen 43H, Creatinine 0.7, Estimat Glomerular Filtration Rate > 60, Glucose Level 122H, Calcium Level 8.4L Current Medications Medications (Trade) Dose Ordered Sig/Morgan Route PRN Reason Start Time Stop Time Status Last Admin Dose Admin Acetaminophen (Tylenol) 650 mg Q4H PRN GT Temp >100.5 05/16/20 06:15 06/15/20 06:14 05/21/20 20:01 Acetaminophen (Tylenol) 650 mg Q4H PRN RECTAL Temp >100.5 05/16/20 19:45 06/15/20 19:44 05/17/20 18:30 Chlorhexidine Gluconate (Lilliam-Hex 2%) 1 applic DAILY@1999 TOPIC 05/15/20 20:00 08/13/20 19:59 05/23/20 20:22 Dextrose (Dextrose 50%) 25 ml Q30M PRN IV Hypoglycemia 05/22/20 00:00 08/20/20 00:00 Dextrose (Dextrose 50%) 50 ml Q30M PRN IV Hypoglycemia 05/22/20 00:00 08/20/20 00:00 Insulin Aspart (NovoLOG) EVERY 6 HOURS SUBQ 05/22/20 06:00 08/20/20 05:59 05/22/20 18:00 Insulin Detemir (Levemir) 10 units Q12HR SUBQ 05/22/20 09:00 08/20/20 08:59 05/24/20 08:13 Meropenem 1 gm/ Sodium Chloride 55 ml @ 110 mls/hr Q12HR@0200,1400 IVPB 05/17/20 14:00 05/26/20 23:59 05/24/20 02:05 Midodrine (Pro-Amatine) 10 mg TID ORAL 05/23/20 09:00 08/21/20 08:59 05/24/20 08:12 Norepinephrine Bitartrate 8 mg/ Dextrose 250 ml @ 0 mls/hr Q24H IV 05/20/20 18:00 06/19/20 17:59 05/22/20 05:45 Pantoprazole (Protonix) 40 mg DAILY IV 05/15/20 09:00 06/14/20 08:59 05/24/20 08:12 Phenylephrine HCl 100 mg/Dextrose 250 ml @ 0 mls/hr Q24H IV 05/15/20 00:15 06/14/20 00:14 05/15/20 13:28 Sodium Chloride 1,000 ml @ 75 mls/hr Q28R37H IV 05/15/20 06:45 06/14/20 06:44 05/23/20 21:15 Vasopressin 100 units/Sodium Chloride 100 ml @ 0 mls/hr Q24H IV 05/15/20 00:15 06/14/20 00:14 Zinc Oxide (Zinc Oxide) 1 applic TIDPRN PRN TOPIC Abdominal cramps 05/20/20 13:00 08/18/20 12:59 Assessment/Plan Assessment/Plan IMPRESSION: 1. Acute respiratory failure. 2. Diabetes mellitus with hyperglycemia. 3. Septic shock. 4. Chronic G-tube. 5. Decubitus. 6. History of CHF. DISCUSSION: Continue fluids and antibiotics. Pressors prn Now on T piece On 40% FiO2 DVT and GI prophylaxis. Respiratory precautions due to COVID-[address] Wade. I will follow carefully. Decadron continuing Will check ABG Richard James Omar Syed MD May 24, 2020 10:32
--- NOTE | 2020-05-24 11:00 | NUR ---
NURSE NOTES: Left message for Dr Enriquez with ABG results. FiO2 titrated up to 80% at this time pending call back.
--- NOTE | 2020-05-24 12:00 | NUR ---
NURSE NOTES: Pt repositioned, oral care provided, endotracheally suctioned. No distress noted. SpO2 95-96% on FiO2 80%.
--- NOTE | 2020-05-24 14:00 | NUR ---
NURSE NOTES: Pt repositioned. 1 BM noted- pt cleaned. No distress noted. Will continue to monitor.
--- NOTE | 2020-05-24 15:20 | Infectious Diseases Prog Note ---
Assessment/Plan 70 yo female with PMHx of Dementia, DM, CVA ( S/P PEG), COVID 19 infection and pressure ulcers. Septic Shock-combination cardiogenic and septic; SP Gram positive bacteremia- contaminant -05/14 Bcx 1/ S. haemolyticus; 05/17 Bcx Neg UTI UA (+); ucx 10-20k P. mirabilis (S Ceftriaxone, Cefepime) PNA, superimposed bacterial -05/23 CXR: Worsening aeration with increasing hazy opacification of the left lung base which may related to increased layering pleural effusion and adjacent atelectasis/consolidation. -05/19 CXR: Increasing left pleural fluid and likely basilar consolidation/ atelectasis. Interim orogastric intubation 05/16 CXR: Retrocardiac density may represent atelectasis versus infiltrate. CXR 05/14/20 showed Retrocardiac atelectasis/infiltrate with Pulmonary venous congestion. sp cx MDR E.coli (S Cefepime, Meropenem, Zosyn) Hx of COVID 19 - Bacteria secondary infection? Asp PNA? COVID 19 tested Pos OSF - about 3 week TIN [employer] -still positive Rapid COVID PCR 05/14 Resp Fail Intuabted on Vent Leukocytosis; increased (sp steroids)- overall improved Fever; SP EMA, SP SVT -sp cardioversion Hyperglycemia Elevated LFTs; resolving -Abd US: Gallbladder sludge. Negative for dilated bile ducts. Normal appearing liver and spleen. Trace ascites Dementia DM Hx CVA ( S/P PEG) pressure ulcers PLAN - Meropenem #8 (abx d #07/23) -05/24 SP Decadron #11 -05/19 SP IV Vancomcyin #6 -05/17 SP Cefepime #4 - f/u Cultures - Monitor CBC and Temps -out of the window for Remdesivir- doubt beneficial at this point and shock more bacterial related Thank you for consulting [facility]. Will continue to follow along with you. Discussed with RN. Subjective Allergies: Coded Allergies: DIVALPROEX SODIUM (Verified Allergy, Unknown, 05/14/20) PENICILLINS (Verified Allergy, Unknown, 05/14/20) afebrile in ~72hrs wbc mildly increased Bcx NTD Objective Last 24 Hour Vital Signs Date Time Temp Pulse Resp B/P (MAP) Pulse Ox O2 Delivery O2 Flow Rate FiO2 05/24/20 15:00 78 26 144/68 (93) 95 05/24/20 14:00 81 28 151/74 (99) 100 05/24/20 13:37 100 05/24/20 13:23 70 05/24/20 13:00 78 26 139/61 (87) 100 05/24/20 12:25 100 Cool Aerosol 12.0 100 05/24/20 12:00 80 05/24/20 12:00 98.4 81 30 129/77 (94) 100 05/24/20 12:00 80 05/24/20 12:00 Mechanical Ventilator 05/24/20 11:00 80 05/24/20 11:00 83 26 130/66 (87) 88 05/24/20 10:00 73 26 144/55 (84) 92 05/24/20 09:00 73 24 123/72 (89) 94 05/24/20 08:01 91 Cool Aerosol 12.0 40 05/24/20 08:00 98.6 82 27 126/72 (90) 91 05/24/20 08:00 40 05/24/20 08:00 Mechanical Ventilator 05/24/20 08:00 82 05/24/20 07:00 84 26 120/65 (83) 90 05/24/20 06:30 84 12 05/24/20 06:00 88 27 138/60 (86) 88 05/24/20 05:00 81 25 121/61 (81) 89 05/24/20 04:00 Mechanical Ventilator 05/24/20 04:00 98.4 70 22 124/59 (80) 93 05/24/20 04:00 64 05/24/20 04:00 40 05/24/20 03:00 68 21 137/65 (89) 95 05/24/20 02:00 63 18 125/57 (79) 95 05/24/20 01:00 67 20 123/58 (79) 91 05/24/20 00:51 96 Cool Aerosol 12.0 40 05/24/20 00:15 63 125/57 05/24/20 00:00 Mechanical Ventilator 05/24/20 00:00 40 05/24/20 00:00 66 05/24/20 00:00 98.0 64 19 140/62 (88) 98 05/23/20 23:00 63 21 134/65 (88) 97 05/23/20 22:00 64 24 129/58 (81) 90 05/23/20 21:00 67 21 128/58 (81) 95 05/23/20 20:00 63 05/23/20 20:00 98.2 66 25 130/59 (82) 87 05/23/20 20:00 40 05/23/20 20:00 Mechanical Ventilator 05/23/20 19:00 60 18 138/60 (86) 96 05/23/20 18:30 95 Cool Aerosol 12.0 40 05/23/20 18:00 63 19 136/52 (80) 98 05/23/20 17:00 65 22 129/56 (80) 97 05/23/20 16:58 127/56 05/23/20 16:00 40 05/23/20 16:00 Mechanical Ventilator 05/23/20 16:00 98.5 72 30 129/60 (83) 95 05/23/20 16:00 69 Height (Feet): 5 Height (Inches): 4.00 Weight (Pounds): 149 GEN: On Vent HEENT: NCAT, MMM, Intubated Pulm: Equal rise and fall B/L ABD: Soft, ND, PEG Neuro: Not following, Intubated Laboratory Tests Test 05/23/20 21:44 05/23/20 23:51 05/24/20 04:30 05/24/20 10:20 POC Whole Blood Glucose 139 MG/DL (74-106) H 112 MG/DL (74-106) H White Blood Count 14.2 K/UL (4.8-10.8) H Red Blood Count 3.06 M/UL (4.20-5.40) L Hemoglobin 9.5 G/DL (12.0-16.0) L Hematocrit 27.7 % (37.0-47.0) L Mean Corpuscular Volume 91 FL (80-99) Mean Corpuscular Hemoglobin 31.0 PG (27.0-31.0) Mean Corpuscular Hemoglobin Concent 34.2 G/DL (32.0-36.0) Red Cell Distribution Width 13.2 % (11.6-14.8) Platelet Count 226 K/UL (150-450) Mean Platelet Volume 8.5 FL (6.5-10.1) Neutrophils (%) (Auto) % (45.0-75.0) Lymphocytes (%) (Auto) % (20.0-45.0) Monocytes (%) (Auto) % (1.0-10.0) Eosinophils (%) (Auto) % (0.0-3.0) Basophils (%) (Auto) % (0.0-2.0) Differential Total Cells Counted 100 Neutrophils % (Manual) 91 % (45-75) H Lymphocytes % (Manual) 6 % (20-45) L Monocytes % (Manual) 3 % (1-10) Eosinophils % (Manual) 0 % (0-3) Basophils % (Manual) 0 % (0-2) Band Neutrophils 0 % (0-8) Platelet Estimate Adequate Platelet Morphology Normal Polychromasia 1+ Hypochromasia 1+ Sodium Level 141 MMOL/L (136-145) Potassium Level 4.3 MMOL/L (3.5-5.1) Chloride Level 109 MMOL/L (98-107) H Carbon Dioxide Level 25 MMOL/L (21-32) Anion Gap 7 mmol/L (5-15) Blood Urea Nitrogen 43 mg/dL (7-18) H Creatinine 0.7 MG/DL (0.55-1.30) Estimat Glomerular Filtration Rate > 60 mL/min (>60) Glucose Level 122 MG/DL (74-106) H Calcium Level 8.4 MG/DL (8.5-10.1) L Arterial Blood pH 7.443 (7.350-7.450) Arterial Blood Partial Pressure CO2 32.4 mmHg (35.0-45.0) L Arterial Blood Partial Pressure O2 43.8 mmHg (75.0-100.0) Arterial Blood HCO3 21.7 mmol/L (22.0-26.0) L Arterial Blood Oxygen Saturation 82.0 % (95-100) *L Arterial Blood Base Excess -1.8 (-2-2) Anthony Test Positive Current Medications Medications (Trade) Dose Ordered Sig/Morgan Route PRN Reason Start Time Stop Time Status Last Admin Dose Admin Acetaminophen (Tylenol) 650 mg Q4H PRN GT Temp >100.5 05/16/20 06:15 06/15/20 06:14 05/21/20 20:01 Acetaminophen (Tylenol) 650 mg Q4H PRN RECTAL Temp >100.5 05/16/20 19:45 06/15/20 19:44 05/17/20 18:30 Chlorhexidine Gluconate (Lilliam-Hex 2%) 1 applic DAILY@2000 TOPIC 05/15/20 20:00 08/13/20 19:59 05/23/20 20:22 Dextrose (Dextrose 50%) 25 ml Q30M PRN IV Hypoglycemia 05/22/20 00:00 08/20/20 00:00 Dextrose (Dextrose 50%) 50 ml Q30M PRN IV Hypoglycemia 05/22/20 00:00 08/20/20 00:00 Insulin Aspart (NovoLOG) EVERY 6 HOURS SUBQ 05/22/20 06:00 08/20/20 05:59 05/24/20 11:11 Insulin Detemir (Levemir) 10 units Q12HR SUBQ 05/22/20 09:00 08/20/20 08:59 05/24/20 08:13 Meropenem 1 gm/ Sodium Chloride 55 ml @ 110 mls/hr Q12HR@0200,1400 IVPB 05/17/20 14:00 05/26/20 23:59 05/24/20 13:16 Midodrine (Pro-Amatine) 10 mg TID ORAL 05/23/20 09:00 08/21/20 08:59 05/24/20 13:15 Norepinephrine Bitartrate 8 mg/ Dextrose 250 ml @ 0 mls/hr Q24H IV 05/20/20 18:00 06/19/20 17:59 05/22/20 05:45 Pantoprazole (Protonix) 40 mg DAILY IV 05/15/20 09:00 06/14/20 08:59 05/24/20 08:12 Phenylephrine HCl 100 mg/Dextrose 250 ml @ 0 mls/hr Q24H IV 05/15/20 00:15 06/14/20 00:14 05/15/20 13:28 Sodium Chloride 1,000 ml @ 75 mls/hr [id number] IV 05/15/20 06:45 06/14/20 06:44 05/23/20 21:15 Vasopressin 100 units/Sodium Chloride 100 ml @ 0 mls/hr Q24H IV 05/15/20 00:15 06/14/20 00:14 Zinc Oxide (Zinc Oxide) 1 applic TIDPRN PRN TOPIC Abdominal cramps 05/20/20 13:00 08/18/20 12:59 Yomaira Terry M.D. May 24, 2020 15:20
[2020-05-24] MEDS ORDERED: NS 500ML ONE (15:32)
[2020-05-24] MEDS ORDERED: 1/2 NS 1000ml IV ONE (15:32)
--- NOTE | 2020-05-24 16:00 | NUR ---
NURSE NOTES: Pt repositioned, oral care provided; pt remains afebrile. FiO2 70%. SpO2 94%. Remains on T-piece. Will continue to monitor.
--- NOTE | 2020-05-24 18:00 | NUR ---
NURSE NOTES: Pt repositioned. Dr Garcia assessing pt at bedside. No distress noted.
--- NOTE | 2020-05-24 18:22 | NUR ---
NURSE NOTES: Received call back from Dr Enriquez with new order to place pt back on vent - SIMV 8 PS 12 FiO2 70%. RT Ronny notified.
--- NOTE | 2020-05-24 18:30 | NUR ---
NURSE NOTES: Covid swab collected and sent down to lab.
--- NOTE | 2020-05-24 18:34 | Surgery Progress Note ---
Surgery Progress Note Subjective Additional Comments no t piece weaning looks good comfortable labs reviewed Objective Last 24 Hour Vital Signs Date Time Temp Pulse Resp B/P (MAP) Pulse Ox O2 Delivery O2 Flow Rate FiO2 05/24/20 18:00 70 15 142/67 (92) 99 05/24/20 17:20 129/65 05/24/20 17:00 65 20 129/65 (86) 97 05/24/20 16:00 70 05/24/20 16:00 71 05/24/20 16:00 Mechanical Ventilator 05/24/20 16:00 98.9 71 30 142/69 (93) 100 05/24/20 15:00 78 26 144/68 (93) 95 05/24/20 14:00 81 28 151/74 (99) 100 05/24/20 13:37 100 05/24/20 13:23 70 05/24/20 13:00 78 26 139/61 (87) 100 05/24/20 12:25 100 Cool Aerosol 12.0 100 05/24/20 12:00 80 05/24/20 12:00 98.4 81 30 129/77 (94) 100 05/24/20 12:00 80 05/24/20 12:00 Mechanical Ventilator 05/24/20 11:00 80 05/24/20 11:00 83 26 130/66 (87) 88 05/24/20 10:00 73 26 144/55 (84) 92 05/24/20 09:00 73 24 123/72 (89) 94 05/24/20 08:01 91 Cool Aerosol 12.0 40 05/24/20 08:00 98.6 82 27 126/72 (90) 91 05/24/20 08:00 40 05/24/20 08:00 Mechanical Ventilator 05/24/20 08:00 82 05/24/20 07:00 84 26 120/65 (83) 90 05/24/20 06:30 84 12 05/24/20 06:00 88 27 138/60 (86) 88 05/24/20 05:00 81 25 121/61 (81) 89 05/24/20 04:00 Mechanical Ventilator 05/24/20 04:00 98.4 70 22 124/59 (80) 93 05/24/20 04:00 64 05/24/20 04:00 40 05/24/20 03:00 68 21 137/65 (89) 95 05/24/20 02:00 63 18 125/57 (79) 95 05/24/20 01:00 67 20 123/58 (79) 91 05/24/20 00:51 96 Cool Aerosol 12.0 40 05/24/20 00:15 63 125/57 05/24/20 00:00 Mechanical Ventilator 05/24/20 00:00 40 05/24/20 00:00 66 05/24/20 00:00 98.0 64 19 140/62 (88) 98 05/23/20 23:00 63 21 134/65 (88) 97 05/23/20 22:00 64 24 129/58 (81) 90 05/23/20 21:00 67 21 128/58 (81) 95 05/23/20 20:00 63 05/23/20 20:00 98.2 66 25 130/59 (82) 87 05/23/20 20:00 40 05/23/20 20:00 Mechanical Ventilator 05/23/20 19:00 60 18 138/60 (86) 96 I&O Intake and Output 05/23/20 05/24/20 19:00 07:00 Intake Total 1730 ml 1755 ml Output Total 975 ml 700 ml Balance 755 ml 1055 ml Free Water 55 ml 80 ml IV Total 955 ml 955 ml Tube Feeding 720 ml 720 ml Output Urine Total 975 ml 700 ml # Bowel Movements 2 Dressing: other Wound: other Cardiovascular: RSR Respiratory: decreased breath sounds Abdomen: soft, non-tender, present bowel sounds Extremities: no tenderness, no cyanosis Laboratory Tests Test 05/23/20 21:44 05/23/20 23:51 05/24/20 04:30 05/24/20 10:20 POC Whole Blood Glucose 139 MG/DL (74-106) H 112 MG/DL (74-106) H White Blood Count 14.2 K/UL (4.8-10.8) H Red Blood Count 3.06 M/UL (4.20-5.40) L Hemoglobin 9.5 G/DL (12.0-16.0) L Hematocrit 27.7 % (37.0-47.0) L Mean Corpuscular Volume 91 FL (80-99) Mean Corpuscular Hemoglobin 31.0 PG (27.0-31.0) Mean Corpuscular Hemoglobin Concent 34.2 G/DL (32.0-36.0) Red Cell Distribution Width 13.2 % (11.6-14.8) Platelet Count 226 K/UL (150-450) Mean Platelet Volume 8.5 FL (6.5-10.1) Neutrophils (%) (Auto) % (45.0-75.0) Lymphocytes (%) (Auto) % (20.0-45.0) Monocytes (%) (Auto) % (1.0-10.0) Eosinophils (%) (Auto) % (0.0-3.0) Basophils (%) (Auto) % (0.0-2.0) Differential Total Cells Counted 100 Neutrophils % (Manual) 91 % (45-75) H Lymphocytes % (Manual) 6 % (20-45) L Monocytes % (Manual) 3 % (1-10) Eosinophils % (Manual) 0 % (0-3) Basophils % (Manual) 0 % (0-2) Band Neutrophils 0 % (0-8) Platelet Estimate Adequate Platelet Morphology Normal Polychromasia 1+ Hypochromasia 1+ Sodium Level 141 MMOL/L (136-145) Potassium Level 4.3 MMOL/L (3.5-5.1) Chloride Level 109 MMOL/L (98-107) H Carbon Dioxide Level 25 MMOL/L (21-32) Anion Gap 7 mmol/L (5-15) Blood Urea Nitrogen 43 mg/dL (7-18) H Creatinine 0.7 MG/DL (0.55-1.30) Estimat Glomerular Filtration Rate > 60 mL/min (>60) Glucose Level 122 MG/DL (74-106) H Calcium Level 8.4 MG/DL (8.5-10.1) L Arterial Blood pH 7.443 (7.350-7.450) Arterial Blood Partial Pressure CO2 32.4 mmHg (35.0-45.0) L Arterial Blood Partial Pressure O2 43.8 mmHg (75.0-100.0) Arterial Blood HCO3 21.7 mmol/L (22.0-26.0) L Arterial Blood Oxygen Saturation 82.0 % (95-100) *L Arterial Blood Base Excess -1.8 (-2-2) Anthony Test Positive Plan Problems: (1) Hypernatremia (2) Renal failure (3) Respiratory failure (4) Sepsis Assessment & Plan: COVID + leukocytosis anemia electrolytes abnormal on iv fluids renal input appreciated cxr noted abx as per ID will follow with recs Interim placement of orogastric tube, also documented on recent abdominal radiograph. Stable satisfactory position of endotracheal tube and right jugular central venous catheter. There is increased pleural fluid and likely left basilar consolidation/atelectasis. The right lung and pleural space remain clear. Impression: Increasing left pleural fluid and likely basilar consolidation/atelectasis. Interim orogastric intubation DAILY ESTIMATED NEEDS: Needs based on Pulmonary, DM, wounds 66.6kg 25-30 kcals/kg 8776-0985 total kcals 1.25-1.5 g protein/kg 83-100 g total protein 20-25 mL/kg 9658-7488 total fluid mLs NUTRITION DIAGNOSIS: Swallowing difficulty r/t dysphagia as evidenced by h/o CVA, pt is GT dep, currently ICU status, now intubated, off pressor support, GT feeds initiated. CURRENT TF:Glucerna 1.2 @45ml/hr ENTERAL NUTRITION RECOMMENDATIONS: As medically able: GLUCERNA 1.5 goal of 45ml/hr x24 hrs to provide 1080ml, 1620 kcal, 89g pro, 820ml free H2O -> as medically able without aspiration risk start Glucerna 1.5 @low rate 25ml/hr for 6 hrs. Advance as tolerated 10ml/hr q4-6 hrs to goal. - Flush per MD, HOB over 30 degrees. ---- If not hemodynamically stable, rec trophic feeds of 5-10ml/hr to maintain gut integrity. ADDITIONAL RECOMMENDATIONS: 1) Obtain an accurate calibrated bed scale wt 2) F/up w/ H&P 3) With active TF orders, add JASMYN BID for noted DTPI wounds 4) TF recs as above when off bipap and w/ hemodynamic stability -> Now intubated, off pressors, on GT feeds. he spleen size is normal. The gallbladder contains sludge. No stones. No wall thickening nor pericholecystic fluid. Common bile duct measures 4 mm in diameter. Small amount free fluid is seen adjacent to the liver and spleen Impression: Gallbladder sludge. Negative for dilated bile ducts Normal appearing liver and spleen (5) Elevated d-dimer (6) COVID-19 Assessment & Plan: ++ (7) Pressure ulcer Assessment & Plan: Pt presented on admission with multiple Pressure injuries.DTPI noted to R Buttocks (L)3.8cm x (W)3.4cm. Base of wound is purpuric ,fluctuant with surrounding maroon and indurated borders. DTPI Upper L Buttocks(L)5.5cm x (W)4cm. Base of wound is maroon and indurated. Borders are irregular. Non-Blanchable erythema without induration/fluctuance L lower buttocks(L)4cm x ( W)7cm. R and L heels are soft but blanchable. Erosion noted at peristomal GT site. Site is erythematous and excoriated. Small amt. sanguineous exudate. Tx.Plan: Apply Moisture Barrier Paste to Sacrum, R and L Buttocks. Cover each area with Optifoam drsg. Change every 3 days and prn. Apply Moisture Barrier Paste to R and L Ischial tuberosities with each incontinence care. Apply Cavilon Skin Barrier to both heels. Cover each heel and malleoli with Optifoam drsg. Change every 7 days and prn. Reposition at least every 2hours or as tolerated. Off-load heels with pillow. APM/DARIN Mattress overlay. Apply Zinc Oxide Paste TID to GT site. Leave open to Air. (8) Dementia (9) CVA (cerebral vascular accident) (10) T2DM (type 2 diabetes mellitus) (11) Gastrostomy present (12) COVID-19 (13) Rapid atrial fibrillation Paul Garcia May 24, 2020 18:34
--- NOTE | 2020-05-24 18:57 | NUR ---
RESPIRATORY NOTE: Called by RN to place pt back on ventilator per MD Mina post ABG draw (see lab for results). Received pt on 70% Cool Aerosol via T-Tube. Pt now placed on SIMV VC 8, 500VT, PS 12, PEEP +5, 70%. Pt intubated w/ ETT 7.5 @ 23cm lipline, secured by anchorfast. Pt awake/responds to stimuli. B/S camryn. rhonchi/diminished, sxn small to moderate amounts of thick/thin/frothy, pale-yellow secretions. Vent plugged into red outlet, ambubag at bedside. Pt tolerating current settings well, in no apparent distress at this time. Will continue to monitor pt.
--- NOTE | 2020-05-24 19:04 | NUR ---
NURSE HAND-OFF REPORT: Latest Vital Signs: Temperature 98.9 , Pulse 77 , B/P 142 /67 , Respiratory Rate 26 , O2 SAT 99 , ETT, SIMV mode. Vital Sign Comment: stable EKG Rhythm: Sinus Rhythm Rhythm change?: N MD Notified?: N/a MD Response: N/a Latest Garza Fall Score: 50 Fall Risk: High Risk Safety Measures: Call light Within Reach, Bed Alarm Zone 1, Side Rails Side Rails x2, Bed position Low and Locked. Fall Precautions: Door Sign Yellow Gown Report given to SARA Urbano.
--- NOTE | 2020-05-24 19:05 | NUR ---
NURSE NOTES: Received patient from SARA Schultz. Will continue plan of care.
[2020-05-24] MEDS: Dyna-Hex 2% Top Sol 2oz TOPIC SCH (19:59)
--- NOTE | 2020-05-24 20:00 | NUR ---
NURSE NOTES: Patient is inutbated; ETT 7.5 @ 23cm to the right lipline to vent with settings of SIMV 8, PS:8 TV:500, PEEP:5, FiO2:70%, O2sat:97%. Right nare NGT in place and running Glucerna 1.2 @ 60ml/hr. Arauz intact and draining. Endorsed that GT site is leaking and waiting to be healed for new GT placement. Right IJ running 1/2 NS @ 75ml/hr. Safety measures in place; bed low, locked and alarm is on. Will continue plan of care.
--- NOTE | 2020-05-24 22:00 | NUR ---
NURSE NOTES: Patient is seen sleeping comfortably. BP:145/68, HR:80, O2sat:98%, RESP:26. No signs of pain of distress, will monitor.
[2020-05-25] VITALS (24 sets, daily range): BP systolic 101–150; BP diastolic 43–72
--- NOTE | 2020-05-25 | NUR ---
NURSE NOTES: Patient awakens upon entering the room. Turned and repositioned. Blood sugar 104 w/ no coverage needed. BP:127/67 HR:79, O2sat:96%.
--- NOTE | 2020-05-25 02:00 | NUR ---
NURSE NOTES: Bed bath given with kendall-hex, linens changes, turned/repositioned, oral care and suctioning done. BP:150/72, HR:91
[2020-05-25] MEDS: Meropenem 1 GM in NS 55 ML IVPB SCH ×2 (02:01→13:32)
--- NOTE | 2020-05-25 04:00 | NUR ---
NURSE NOTES: Patient is now sleeping comfortably. No changes in condition. Vital signs stable.
[2020-05-25 05:43] LABS: HEMATOCRIT 28.5 % (37.0-47.0); HEMOGLOBIN 9.7 G/DL (12.0-16.0); MEAN CORPUSCULAR VOLUME 91 FL (80-99); PLATELET COUNT 253 K/UL (150-450); RED BLOOD COUNT 3.14 M/UL (4.20-5.40); RED CELL DISTRIBUTION WIDTH 13.8 % (11.6-14.8); WHITE BLOOD COUNT 16.3 K/UL (4.8-10.8)
[2020-05-25] MEDS: NovoLOG Insulin Flexpen SUBQ SCH ×3 (05:46→18:00)
--- NOTE | 2020-05-25 06:00 | NUR ---
NURSE NOTES: Right IJ dressing changed. Frequent suctioning provided.
--- NOTE | 2020-05-25 06:01 | General Progress Note ---
Assessment/Plan Problem List: (1) COVID-19 ICD Codes: U07.1 - COVID-19 SNOMED: 238931851 (2) Elevated d-dimer ICD Codes: R79.89 - Other specified abnormal findings of blood chemistry SNOMED: 873164739 (3) Rapid atrial fibrillation ICD Codes: I48.91 - Unspecified atrial fibrillation SNOMED: 528467389 (4) Sepsis ICD Codes: A41.9 - Sepsis, unspecified organism SNOMED: 30635913 (5) Respiratory failure ICD Codes: J96.90 - Respiratory failure, unspecified, unspecified whether with hypoxia or hypercapnia SNOMED: 975986565 (6) Renal failure ICD Codes: N19 - Unspecified kidney failure SNOMED: 21901456 (7) Hypernatremia ICD Codes: E87.0 - Hyperosmolality and hypernatremia SNOMED: 302579954 (8) T2DM (type 2 diabetes mellitus) ICD Codes: E11.9 - Type 2 diabetes mellitus without complications SNOMED: 52291445 Status: unchanged Assessment/Plan: reduce Levemir 10 to 8 units bid continue Novolog sliding scale every 6 hours hypoglycemia protocol in order Subjective ROS Limited/Unobtainable: Yes Allergies: Coded Allergies: DIVALPROEX SODIUM (Verified Allergy, Unknown, 05/14/20) PENICILLINS (Verified Allergy, Unknown, 05/14/20) Subjective events noted and interval notes reviewed glucose values are stable Item Value Date Time Bedside Blood Glucose 123 mg/dl H 05/25/20 0546 Bedside Blood Glucose 104 mg/dl 05/25/20 0000 Bedside Blood Glucose 109 mg/dl 05/24/202000 Bedside Blood Glucose 102 mg/dl 05/24/20 1820 Bedside Blood Glucose 153 mg/dl H 05/24/20 1111 Bedside Blood Glucose 122 mg/dl H 05/24/20 0813 Objective Last 24 Hour Vital Signs Date Time Temp Pulse Resp B/P (MAP) Pulse Ox O2 Delivery O2 Flow Rate FiO2 05/25/20 05:00 73 16 114/58 (76) 97 05/25/20 04:00 98.5 77 19 115/57 (76) 94 05/25/20 04:00 Mechanical Ventilator 05/25/20 04:00 70 05/25/20 03:14 86 05/25/20 03:00 90 27 140/68 (92) 99 05/25/20 02:47 98 27 70 05/25/20 02:00 84 23 150/72 (98) 92 05/25/20 01:00 76 25 123/60 (81) 95 05/25/20 00:00 99.4 78 24 127/67 (87) 93 05/25/20 00:00 70 05/25/20 00:00 Mechanical Ventilator 05/24/20 23:52 79 142/72 05/24/20 23:31 80 05/24/20 23:21 87 26 70 05/24/20 23:00 81 24 142/72 (95) 95 05/24/20 22:00 79 23 145/68 (93) 96 05/24/20 21:00 74 22 128/62 (84) 95 05/24/20 20:00 Mechanical Ventilator 05/24/20 20:00 99.6 76 24 119/80 (93) 95 05/24/20 19:30 72 05/24/20 19:00 78 22 154/71 (98) 72 05/24/20 18:55 70 05/24/20 18:50 77 26 70 05/24/20 18:00 70 15 142/67 (92) 99 05/24/20 17:20 129/65 05/24/20 17:00 65 20 129/65 (86) 97 05/24/20 16:00 70 05/24/20 16:00 71 05/24/20 16:00 T-piece 05/24/20 16:00 98.9 71 30 142/69 (93) 100 05/24/20 15:00 78 26 144/68 (93) 95 05/24/20 14:00 81 28 151/74 (99) 100 05/24/20 13:37 100 05/24/20 13:23 70 05/24/20 13:00 78 26 139/61 (87) 100 05/24/20 12:25 100 Cool Aerosol 12.0 100 05/24/20 12:00 80 05/24/20 12:00 98.4 81 30 129/77 (94) 100 05/24/20 12:00 80 05/24/20 12:00 T-piece 05/24/20 11:00 80 05/24/20 11:00 83 26 130/66 (87) 88 05/24/20 10:00 73 26 144/55 (84) 92 05/24/20 09:00 73 24 123/72 (89) 94 05/24/20 08:01 91 Cool Aerosol 12.0 40 05/24/20 08:00 98.6 82 27 126/72 (90) 91 05/24/20 08:00 40 05/24/20 08:00 T-piece 05/24/20 08:00 82 05/24/20 07:00 84 26 120/65 (83) 90 05/24/20 06:30 84 12 Intake and Output 05/24/20 05/25/20 19:00 07:00 Intake Total 1190 ml 1435 ml Output Total 785 ml 915 ml Balance 405 ml 520 ml Free Water 40 ml 30 ml IV Total 430 ml 805 ml Tube Feeding 720 ml 600 ml Output Urine Total 785 ml 915 ml # Bowel Movements 2 1 Laboratory Tests 05/24/20 10:20: Arterial Blood pH 7.443, Arterial Blood Partial Pressure CO2 32.4L, Arterial Blood Partial Pressure O2 43.8*L, Arterial Blood HCO3 21.7L, Arterial Blood Oxygen Saturation 82.0*L, Arterial Blood Base Excess -1.8, Anthony Test Positive 05/24/20 19:58: POC Whole Blood Glucose [Pending] 05/24/20 23:36: POC Whole Blood Glucose [Pending] 05/25/20 04:00: White Blood Count [Pending], Red Blood Count [Pending], Hemoglobin [Pending], Hematocrit [Pending], Mean Corpuscular Volume [Pending], Mean Corpuscular Hemoglobin [Pending], Mean Corpuscular Hemoglobin Concent [Pending], Red Cell Distribution Width [Pending], Platelet Count [Pending], Mean Platelet Volume [Pending], Neutrophils (%) (Auto) [Pending], Lymphocytes (%) (Auto) [Pending], Monocytes (%) (Auto) [Pending], Eosinophils (%) (Auto) [Pending], Basophils (%) (Auto) [Pending], Sodium Level [Pending], Potassium Level [Pending], Chloride Level [Pending], Carbon Dioxide Level [Pending], Blood Urea Nitrogen [Pending], Creatinine [Pending], Estimat Glomerular Filtration Rate [Pending], Glucose Level [Pending], Calcium Level [Pending] 05/25/20 05:25: POC Whole Blood Glucose [Pending] Height (Feet): 5 Height (Inches): 4.00 Weight (Pounds): 149 Objective Current Medications Medications (Trade) Dose Ordered Sig/Morgan Route PRN Reason Start Time Stop Time Status Last Admin Dose Admin Acetaminophen (Tylenol) 650 mg Q4H PRN GT Temp >100.5 05/16/20 06:15 06/15/20 06:14 05/21/20 20:01 Acetaminophen (Tylenol) 650 mg Q4H PRN RECTAL Temp >100.5 05/16/20 19:45 06/15/20 19:44 05/17/20 18:30 Chlorhexidine Gluconate (Lilliam-Hex 2%) 1 applic DAILY@2000 TOPIC 05/15/20 20:00 08/13/20 19:59 05/24/20 19:59 Dextrose (Dextrose 50%) 25 ml Q30M PRN IV Hypoglycemia 05/22/20 00:00 08/20/20 00:00 Dextrose (Dextrose 50%) 50 ml Q30M PRN IV Hypoglycemia 05/22/20 00:00 08/20/20 00:00 Insulin Aspart (NovoLOG) EVERY 6 HOURS SUBQ 05/22/20 06:00 08/20/20 05:59 05/24/20 11:11 Insulin Detemir (Levemir) 10 units Q12HR SUBQ 05/22/20 09:00 08/20/20 08:59 05/24/20 20:01 Meropenem 1 gm/ Sodium Chloride 55 ml @ 110 mls/hr Q12HR@0200,1400 IVPB 05/17/20 14:00 05/26/20 23:59 05/25/20 02:01 Midodrine (Pro-Amatine) 10 mg TID ORAL 05/23/20 09:00 08/21/20 08:59 05/24/20 17:58 Norepinephrine Bitartrate 8 mg/ Dextrose 250 ml @ 0 mls/hr Q24H IV 05/20/20 18:00 06/19/20 17:59 05/22/20 05:45 Pantoprazole (Protonix) 40 mg DAILY IV 05/15/20 09:00 06/14/20 08:59 05/24/20 08:12 Phenylephrine HCl 100 mg/Dextrose 250 ml @ 0 mls/hr Q24H IV 05/15/20 00:15 06/14/20 00:14 05/15/20 13:28 Sodium Chloride 1,000 ml @ 75 mls/hr [id number] IV 05/15/20 06:45 06/14/20 06:44 05/24/20 17:59 Vasopressin 100 units/Sodium Chloride 100 ml @ 0 mls/hr Q24H IV 05/15/20 00:15 06/14/20 00:14 Zinc Oxide (Zinc Oxide) 1 applic TIDPRN PRN TOPIC Abdominal cramps 05/20/20 13:00 08/18/20 12:59 Chau Shelley MD May 25, 2020 06:01
[2020-05-25 06:03] LABS: ANION GAP 10 mmol/L (5-15); BLOOD UREA NITROGEN 39 mg/dL (7-18); CALCIUM 8.4 MG/DL (8.5-10.1); CARBON DIOXIDE 25 MMOL/L (21-32); CHLORIDE 112 MMOL/L (98-107); CREATININE 0.7 MG/DL (0.55-1.30); POTASSIUM 4.2 MMOL/L (3.5-5.1); SODIUM 147 MMOL/L (136-145)
--- NOTE | 2020-05-25 07:23 | NUR ---
NURSE NOTES: Pt received from SARA Urbano. Pt is asleep, opens eyes when shaken, gag reflex intact, pt does not follow commands, pupils are equal and round 3 mm bilaterally with sluggish rxn to light. Pt noted in SR to wireless operator. radial and dorsalis pedis pulses 2+. 1+ edema noted to hands. Pt is orally intubated with a 7.5 ETT noted 23 cm at the lip with the following settings: SIMV 8 PS 12 on FiO2 70%. All lung lobes sound diminished upon auscultation. Abd is flat, soft, and non-tender, with active bowel sounds to all quadrants. GT area covered with abd pad. Pt has a right nares NGT running Glucerna 1.2 at 60 cc/hr. F/C noted draining yellow, clear urine. Skin alterations noted. Pt on DARIN mattress. Pt has a RIJ TLC with dry and intact dressing running 1/2 NS at 75 cc/hr. Bed in lowest position, alarm on, side rails up x 2. Call light within reach. Will continue to monitor pt.
--- NOTE | 2020-05-25 07:23 | NUR ---
NURSE HAND-OFF REPORT: Latest Vital Signs: Temperature 98.5 , Pulse 70 , B/P 104 /51 , Respiratory Rate 14 , O2 SAT 98 , Mechanical Ventilator, O2 Flow Rate 12.0 . Vital Sign Comment: Stable EKG Rhythm: Sinus Rhythm Rhythm change?: N Notified?: Y -Dr. Ilia SEYMOUR Response: No New Orders Received Latest Garza Fall Score: 50 Fall Risk: High Risk Safety Measures: Call light Within Reach, Bed Alarm Zone 1, Side Rails Side Rails x2, Bed position Low and Locked. Fall Precautions: Door Sign Report given to .
--- NOTE | 2020-05-25 07:45 | NUR ---
NURSE NOTES: Dr Peterson (covering for Dr Morillo) currently reviewing pt's chart/labs for today - updated with pt's status.
--- NOTE | 2020-05-25 08:15 | NUR ---
NURSE NOTES: FiO2 titrated down to 65% per RT Brunilda.
--- NOTE | 2020-05-25 08:55 | General Progress Note ---
Assessment/Plan Status: unchanged Assessment/Plan: 1. History of CVA. 2. Dementia. 3. Dysphagia with G-tube. 4. Cachexia. 5. Diabetes. 6. Pressure ulcers. 7. Hypothyroidism. 8. Legal blindness. 9. Currently COVID positive. GT has trice removed NGTF GT replacement when more stable icu care fu labs Subjective ROS Limited/Unobtainable: No Allergies: Coded Allergies: DIVALPROEX SODIUM (Verified Allergy, Unknown, 05/14/20) PENICILLINS (Verified Allergy, Unknown, 05/14/20) Objective Last 24 Hour Vital Signs Date Time Temp Pulse Resp B/P (MAP) Pulse Ox O2 Delivery O2 Flow Rate FiO2 05/25/20 08:11 65 05/25/20 08:00 70 05/25/20 07:00 70 14 104/51 (68) 98 05/25/20 06:53 66 17 65 05/25/20 06:30 72 14 05/25/20 06:00 73 17 107/51 (69) 96 05/25/20 05:00 73 16 114/58 (76) 97 05/25/20 04:00 98.5 77 19 115/57 (76) 94 05/25/20 04:00 Mechanical Ventilator 05/25/20 04:00 70 05/25/20 03:14 86 05/25/20 03:00 90 27 140/68 (92) 99 05/25/20 02:47 98 27 70 05/25/20 02:00 84 23 150/72 (98) 92 05/25/20 01:00 76 25 123/60 (81) 95 05/25/20 00:00 99.4 78 24 127/67 (87) 93 05/25/20 00:00 70 05/25/20 00:00 Mechanical Ventilator 05/24/20 23:52 79 142/72 05/24/20 23:31 80 05/24/20 23:21 87 26 70 05/24/20 23:00 81 24 142/72 (95) 95 05/24/20 22:00 79 23 145/68 (93) 96 05/24/20 21:00 74 22 128/62 (84) 95 05/24/20 20:00 Mechanical Ventilator 05/24/20 20:00 99.6 76 24 119/80 (93) 95 05/24/20 19:30 72 05/24/20 19:00 78 22 154/71 (98) 72 05/24/20 18:55 70 05/24/20 18:50 77 26 70 05/24/20 18:00 70 15 142/67 (92) 99 05/24/20 17:20 129/65 05/24/20 17:00 65 20 129/65 (86) 97 05/24/20 16:00 70 05/24/20 16:00 71 05/24/20 16:00 T-piece 05/24/20 16:00 98.9 71 30 142/69 (93) 100 05/24/20 15:00 78 26 144/68 (93) 95 05/24/20 14:00 81 28 151/74 (99) 100 05/24/20 13:37 100 05/24/20 13:23 70 05/24/20 13:00 78 26 139/61 (87) 100 05/24/20 12:25 100 Cool Aerosol 12.0 100 05/24/20 12:00 80 05/24/20 12:00 98.4 81 30 129/77 (94) 100 05/24/20 12:00 80 05/24/20 12:00 T-piece 05/24/20 11:00 80 05/24/20 11:00 83 26 130/66 (87) 88 05/24/20 10:00 73 26 144/55 (84) 92 05/24/20 09:00 73 24 123/72 (89) 94 Intake and Output 05/24/20 05/25/20 19:00 07:00 Intake Total 1190 ml 1630 ml Output Total 785 ml 1045 ml Balance 405 ml 585 ml Free Water 40 ml 30 ml IV Total 430 ml 880 ml Tube Feeding 720 ml 720 ml Output Urine Total 785 ml 1045 ml # Bowel Movements 2 3 Laboratory Tests 05/24/20 10:20: Arterial Blood pH 7.443, Arterial Blood Partial Pressure CO2 32.4L, Arterial Blood Partial Pressure O2 43.8*L, Arterial Blood HCO3 21.7L, Arterial Blood Oxygen Saturation 82.0*L, Arterial Blood Base Excess -1.8, Anthony Test Positive 05/24/20 19:58: POC Whole Blood Glucose [Pending] 05/24/20 23:36: POC Whole Blood Glucose [Pending] 05/25/20 04:00: White Blood Count 16.3H, Red Blood Count 3.14L, Hemoglobin 9.7L, Hematocrit 28.5L, Mean Corpuscular Volume 91, Mean Corpuscular Hemoglobin 31.0, Mean Corpuscular Hemoglobin Concent 34.2, Red Cell Distribution Width 13.8, Platelet Count 253, Mean Platelet Volume 8.5, Neutrophils (%) (Auto) , Lymphocytes (%) (Auto) , Monocytes (%) (Auto) , Eosinophils (%) (Auto) , Basophils (%) (Auto) , Neutrophils % (Manual) [Pending], Lymphocytes % (Manual) [Pending], Platelet Estimate [Pending], Platelet Morphology [Pending], Sodium Level 147H, Potassium Level 4.2, Chloride Level 112H, Carbon Dioxide Level 25, Anion Gap 10, Blood Urea Nitrogen 39H, Creatinine 0.7, Estimat Glomerular Filtration Rate > 60, Glucose Level 123H, Calcium Level 8.4L 05/25/20 05:25: POC Whole Blood Glucose [Pending] Height (Feet): 5 Height (Inches): 4.00 Weight (Pounds): 149 General Appearance: no apparent distress EENT: normal ENT inspection Neck: supple Cardiovascular: normal rate Respiratory/Chest: decreased breath sounds Abdomen: normal bowel sounds, non tender, soft Extremities: non-tender Jhon Matos MD May 25, 2020 08:55
[2020-05-25] MEDS: Levemir Flexpen SUBQ SCH ×2 (09:18→20:09)
[2020-05-25] MEDS: Midodrine 10mg tab ORAL SCH ×3 (09:18→18:11)
[2020-05-25] MEDS: Pantoprazole Inj IV SCH (09:19)
--- NOTE | 2020-05-25 10:00 | NUR ---
NURSE NOTES: Pt repositioned; no distress noted. Dr Enriquez present at bedside assessing pt and requested to skip weaning trial for today.
--- NOTE | 2020-05-25 10:16 | Pulmonology Progress Note ---
Subjective ROS Limited/Unobtainable: No Interval Events: Unable to extubtae due to poor mental status Constitutional: Reports: no symptoms HEENT: Repors: no symptoms Respiratory: Reports: no symptoms Cardiovascular: Reports: no symptoms Gastrointestinal/Abdominal: Reports: no symptoms Genitourinary: Reports: no symptoms Allergies: Coded Allergies: DIVALPROEX SODIUM (Verified Allergy, Unknown, 05/14/20) PENICILLINS (Verified Allergy, Unknown, 05/14/20) All Systems: reviewed and negative except above Objective Last 24 Hour Vital Signs Date Time Temp Pulse Resp B/P (MAP) Pulse Ox O2 Delivery O2 Flow Rate FiO2 05/25/20 08:11 65 05/25/20 08:00 70 05/25/20 07:00 70 14 104/51 (68) 98 05/25/20 06:53 66 17 65 05/25/20 06:30 72 14 05/25/20 06:00 73 17 107/51 (69) 96 05/25/20 05:00 73 16 114/58 (76) 97 05/25/20 04:00 98.5 77 19 115/57 (76) 94 05/25/20 04:00 Mechanical Ventilator 05/25/20 04:00 70 05/25/20 03:14 86 05/25/20 03:00 90 27 140/68 (92) 99 05/25/20 02:47 98 27 70 05/25/20 02:00 84 23 150/72 (98) 92 05/25/20 01:00 76 25 123/60 (81) 95 05/25/20 00:00 99.4 78 24 127/67 (87) 93 05/25/20 00:00 70 05/25/20 00:00 Mechanical Ventilator 05/24/20 23:52 79 142/72 05/24/20 23:31 80 05/24/20 23:21 87 26 70 05/24/20 23:00 81 24 142/72 (95) 95 05/24/20 22:00 79 23 145/68 (93) 96 05/24/20 21:00 74 22 128/62 (84) 95 05/24/20 20:00 Mechanical Ventilator 05/24/20 20:00 99.6 76 24 119/80 (93) 95 05/24/20 19:30 72 05/24/20 19:00 78 22 154/71 (98) 72 05/24/20 18:55 70 05/24/20 18:50 77 26 70 05/24/20 18:00 70 15 142/67 (92) 99 05/24/20 17:20 129/65 05/24/20 17:00 65 20 129/65 (86) 97 05/24/20 16:00 70 05/24/20 16:00 71 05/24/20 16:00 T-piece 05/24/20 16:00 98.9 71 30 142/69 (93) 100 05/24/20 15:00 78 26 144/68 (93) 95 05/24/20 14:00 81 28 151/74 (99) 100 05/24/20 13:37 100 05/24/20 13:23 70 05/24/20 13:00 78 26 139/61 (87) 100 05/24/20 12:25 100 Cool Aerosol 12.0 100 05/24/20 12:00 80 05/24/20 12:00 98.4 81 30 129/77 (94) 100 05/24/20 12:00 80 05/24/20 12:00 T-piece 05/24/20 11:00 80 05/24/20 11:00 83 26 130/66 (87) 88 Intake and Output 05/24/20 05/25/20 19:00 07:00 Intake Total 1190 ml 1630 ml Output Total 785 ml 1045 ml Balance 405 ml 585 ml Free Water 40 ml 30 ml IV Total 430 ml 880 ml Tube Feeding 720 ml 720 ml Output Urine Total 785 ml 1045 ml # Bowel Movements 2 3 General Appearance: no acute distress HEENT: normocephalic Respiratory: chest wall non-tender, lungs clear Cardiovascular: normal peripheral pulses, normal rate Abdomen: normal bowel sounds Laboratory Tests 05/24/20 10:20: Arterial Blood pH 7.443, Arterial Blood Partial Pressure CO2 32.4L, Arterial Blood Partial Pressure O2 43.8*L, Arterial Blood HCO3 21.7L, Arterial Blood Oxygen Saturation 82.0*L, Arterial Blood Base Excess -1.8, Anthony Test Positive 05/24/20 19:58: POC Whole Blood Glucose [Pending] 05/24/20 23:36: POC Whole Blood Glucose [Pending] 05/25/20 04:00: White Blood Count 16.3H, Red Blood Count 3.14L, Hemoglobin 9.7L, Hematocrit 28.5L, Mean Corpuscular Volume 91, Mean Corpuscular Hemoglobin 31.0, Mean Corpuscular Hemoglobin Concent 34.2, Red Cell Distribution Width 13.8, Platelet Count 253, Mean Platelet Volume 8.5, Neutrophils (%) (Auto) , Lymphocytes (%) (Auto) , Monocytes (%) (Auto) , Eosinophils (%) (Auto) , Basophils (%) (Auto) , Differential Total Cells Counted 100, Neutrophils % (Manual) 95H, Lymphocytes % (Manual) 3L, Monocytes % (Manual) 1, Eosinophils % (Manual) 0, Basophils % (Manual) 0, Band Neutrophils 1, Platelet Estimate Adequate, Platelet Morphology Normal, Hypochromasia 2+, Anisocytosis 1+, Sodium Level 147H, Potassium Level 4.2, Chloride Level 112H, Carbon Dioxide Level 25, Anion Gap 10, Blood Urea Ni trogen 39H, Creatinine 0.7, Estimat Glomerular Filtration Rate > 60, Glucose Level 123H, Calcium Level 8.4L 05/25/20 05:25: POC Whole Blood Glucose [Pending] Current Medications Medications (Trade) Dose Ordered Sig/Morgan Route PRN Reason Start Time Stop Time Status Last Admin Dose Admin Acetaminophen (Tylenol) 650 mg Q4H PRN GT Temp >100.5 05/16/20 06:15 06/15/20 06:14 05/21/20 20:01 Acetaminophen (Tylenol) 650 mg Q4H PRN RECTAL Temp >100.5 05/16/20 19:45 06/15/20 19:44 05/17/20 18:30 Chlorhexidine Gluconate (Lilliam-Hex 2%) 1 applic DAILY@1999 TOPIC 05/15/20 20:00 08/13/20 19:59 05/24/20 19:59 Dextrose (Dextrose 50%) 25 ml Q30M PRN IV Hypoglycemia 05/22/20 00:00 08/20/20 00:00 Dextrose (Dextrose 50%) 50 ml Q30M PRN IV Hypoglycemia 05/22/20 00:00 08/20/20 00:00 Insulin Aspart (NovoLOG) EVERY 6 HOURS SUBQ 05/22/20 06:00 08/20/20 05:59 05/24/20 11:11 Insulin Detemir (Levemir) 8 units Q12HR SUBQ 05/25/20 09:00 08/20/20 08:59 05/25/20 09:18 Meropenem 1 gm/ Sodium Chloride 55 ml @ 110 mls/hr Q12HR@0200,1400 IVPB 05/17/20 14:00 05/26/20 23:59 05/25/20 02:01 Midodrine (Pro-Amatine) 10 mg TID ORAL 05/23/20 09:00 08/21/20 08:59 05/25/20 09:18 Norepinephrine Bitartrate 8 mg/ Dextrose 250 ml @ 0 mls/hr Q24H IV 05/20/20 18:00 06/19/20 17:59 05/22/20 05:45 Pantoprazole (Protonix) 40 mg DAILY IV 05/15/20 09:00 06/14/20 08:59 05/25/20 09:19 Phenylephrine HCl 100 mg/Dextrose 250 ml @ 0 mls/hr Q24H IV 05/15/20 00:15 06/14/20 00:14 05/15/20 13:28 Sodium Chloride 1,000 ml @ 75 mls/hr [id number] IV 05/15/20 06:45 06/14/20 06:44 05/25/20 06:00 Vasopressin 100 units/Sodium Chloride 100 ml @ 0 mls/hr Q24H IV 05/15/20 00:15 06/14/20 00:14 Zinc Oxide (Zinc Oxide) 1 applic TIDPRN PRN TOPIC Abdominal cramps 05/20/20 13:00 08/18/20 12:59 Assessment/Plan Assessment/Plan IMPRESSION: 1. Acute respiratory failure. 2. Diabetes mellitus with hyperglycemia. 3. Septic shock. 4. Chronic G-tube. 5. Decubitus. 6. History of CHF. DISCUSSION: Continue fluids and antibiotics. Pressors prn Now on T piece On 40% FiO2 DVT and GI prophylaxis. Respiratory precautions due to COVID-[address] Wade. I will follow carefully. Decadron continuing Mental status better however unsafe to extubate Will not be able to maintain airway Recommend trach Neeeds new PEG Richard James Omar Syed MD May 25, 2020 10:16
--- NOTE | 2020-05-25 10:41 | NUR ---
CASE MANAGEMENT:PATIENT MET INTERQUAL CRITICAL Addendum: 05/25/20 at 1356 by JAMAL MELLO LVN CASE MANAGEMENT:REVIEW 05/25/20 SI; SEPSIS. COVID (+) . NOW BACK ON MECHANICAL VENT 98.5 77 19 115/57 94% C-PAP - NOW ON MECHANICAL VENT FiO2 70% WBC 16.3 H/H 9.7/28.5 NA 147 BUN 39 AB05/24/20: pCO2 32.4 pO2 43.8 HCO3 21.7 O2 SAT 82.0 IS; MIDODRINE GT TID LEVOPHED IV Q24~TITRATING VASOPRESSIN QD ~TITRATING PHENYLEPHRINE QD~TITRATED MEROPENEM IV Q12 DECADRON IV QD PROTONIX IV QD IVF NS @ 75 ML/HR LEVEMIR SQ BID ICU STATUS DCP: WESTERN CONV WHEN STABLE PLAN: PATIENT ABLE TO TOLERATE T-PIECE FOR SHORT TIME BACK ON MECHANICAL VENT TITRATING OFF VENT SUPPORT MEDS WBC MONITORING ~INCREASING UNABLE TO EXTUBATE D/T POOR MENTAL STATUS RECOMMENDATION TRACH NEEDS NEW PEG PLACEMENT NOT ABLE TO MAINTAIN AIRWAY
--- NOTE | 2020-05-25 11:31 | Infectious Diseases Prog Note ---
Assessment/Plan 70 yo female with PMHx of Dementia, DM, CVA ( S/P PEG), COVID 19 infection and pressure ulcers. Septic Shock-combination cardiogenic and septic; SP Gram positive bacteremia- contaminant -05/14 Bcx 1/ S. haemolyticus; 05/17 Bcx Neg UTI UA (+); ucx 10-20k P. mirabilis (S Ceftriaxone, Cefepime) PNA, superimposed bacterial -05/23 CXR: Worsening aeration with increasing hazy opacification of the left lung base which may related to increased layering pleural effusion and adjacent atelectasis/consolidation. -05/19 CXR: Increasing left pleural fluid and likely basilar consolidation/atelectasis. Interim orogastric intubation 05/16 CXR: Retrocardiac density may represent atelectasis versus infiltrate. CXR 05/14/20 showed Retrocardiac atelectasis/infiltrate with Pulmonary venous congestion. sp cx MDR E.coli (S Cefepime, Meropenem, Zosyn) Hx of COVID 19 - Bacteria secondary infection? Asp PNA? COVID 19 tested Pos OSF - about 3 week [employer] -still positive Rapid COVID PCR 05/14 Resp Fail Intuabted on Vent Leukocytosis; increased (sp steroids)- increasing again Fever; SP EMA, SP SVT -sp cardioversion Hyperglycemia Elevated LFTs; resolving -Abd US: Gallbladder sludge. Negative for dilated bile ducts. Normal appearing liver and spleen. Trace ascites Dementia DM Hx CVA ( S/P PEG) pressure ulcers PLAN - Meropenem #9 (abx d #12/14) -05/24 SP Decadron #11 -05/19 SP IV Vancomcyin #6 -05/17 SP Cefepime #4 - f/u Cultures - Monitor CBC and Temps -repeat cultures -COVID19 isolation; repeat COVID PCR Thank you for consulting [facility]. Will continue to follow along with you. Discussed with RN. Subjective Allergies: Coded Allergies: DIVALPROEX SODIUM (Verified Allergy, Unknown, 05/14/20) PENICILLINS (Verified Allergy, Unknown, 05/14/20) afebrile in ~72hrs wbc mildly increased Bcx NTD Objective Last 24 Hour Vital Signs Date Time Temp Pulse Resp B/P (MAP) Pulse Ox O2 Delivery O2 Flow Rate FiO2 05/25/20 11:00 65 17 101/50 (67) 97 05/25/20 10:00 72 17 116/57 (76) 96 05/25/20 09:00 68 15 103/52 (69) 97 05/25/20 08:11 65 05/25/20 08:00 Mechanical Ventilator 05/25/20 08:00 98.6 72 17 110/56 (74) 97 05/25/20 08:00 70 05/25/20 08:00 72 05/25/20 07:00 70 14 104/51 (68) 98 05/25/20 06:53 66 17 65 05/25/20 06:30 72 14 05/25/20 06:00 73 17 107/51 (69) 96 05/25/20 05:00 73 16 114/58 (76) 97 05/25/20 04:00 98.5 77 19 115/57 (76) 94 05/25/20 04:00 Mechanical Ventilator 05/25/20 04:00 70 05/25/20 03:14 86 05/25/20 03:00 90 27 140/68 (92) 99 05/25/20 02:47 98 27 70 05/25/20 02:00 84 23 150/72 (98) 92 05/25/20 01:00 76 25 123/60 (81) 95 05/25/20 00:00 99.4 78 24 127/67 (87) 93 05/25/20 00:00 70 05/25/20 00:00 Mechanical Ventilator 05/24/20 23:52 79 142/72 05/24/20 23:31 80 05/24/20 23:21 87 26 70 05/24/20 23:00 81 24 142/72 (95) 95 05/24/20 22:00 79 23 145/68 (93) 96 05/24/20 21:00 74 22 128/62 (84) 95 05/24/20 20:00 Mechanical Ventilator 05/24/20 20:00 99.6 76 24 119/80 (93) 95 05/24/20 19:30 72 05/24/20 19:00 78 22 154/71 (98) 72 05/24/20 18:55 70 05/24/20 18:50 77 26 70 05/24/20 18:00 70 15 142/67 (92) 99 05/24/20 17:20 129/65 05/24/20 17:00 65 20 129/65 (86) 97 05/24/20 16:00 70 05/24/20 16:00 71 05/24/20 16:00 T-piece 05/24/20 16:00 98.9 71 30 142/69 (93) 100 05/24/20 15:00 78 26 144/68 (93) 95 05/24/20 14:00 81 28 151/74 (99) 100 05/24/20 13:37 100 05/24/20 13:23 70 05/24/20 13:00 78 26 139/61 (87) 100 05/24/20 12:25 100 Cool Aerosol 12.0 100 05/24/20 12:00 80 05/24/20 12:00 98.4 81 30 129/77 (94) 100 05/24/20 12:00 80 05/24/20 12:00 T-piece Height (Feet): 5 Height (Inches): 4.00 Weight (Pounds): 149 GEN: On Vent HEENT: NCAT, MMM, Intubated Pulm: Equal rise and fall B/L ABD: Soft, ND, PEG Neuro: Not following, Intubated Laboratory Tests Test 05/24/20 19:58 05/24/20 23:36 05/25/20 04:00 05/25/20 05:25 POC Whole Blood Glucose Pending Pending Pending White Blood Count 16.3 K/UL (4.8-10.8) H Red Blood Count 3.14 M/UL (4.20-5.40) L Hemoglobin 9.7 G/DL (12.0-16.0) L Hematocrit 28.5 % (37.0-47.0) L Mean Corpuscular Volume 91 FL (80-99) Mean Corpuscular Hemoglobin 31.0 PG (27.0-31.0) Mean Corpuscular Hemoglobin Concent 34.2 G/DL (32.0-36.0) Red Cell Distribution Width 13.8 % (11.6-14.8) Platelet Count 253 K/UL (150-450) Mean Platelet Volume 8.5 FL (6.5-10.1) Neutrophils (%) (Auto) % (45.0-75.0) Lymphocytes (%) (Auto) % (20.0-45.0) Monocytes (%) (Auto) % (1.0-10.0) Eosinophils (%) (Auto) % (0.0-3.0) Basophils (%) (Auto) % (0.0-2.0) Differential Total Cells Counted 100 Neutrophils % (Manual) 95 % (45-75) H Lymphocytes % (Manual) 3 % (20-45) L Monocytes % (Manual) 1 % (1-10) Eosinophils % (Manual) 0 % (0-3) Basophils % (Manual) 0 % (0-2) Band Neutrophils 1 % (0-8) Platelet Estimate Adequate Platelet Morphology Normal Hypochromasia 2+ Anisocytosis 1+ Sodium Level 147 MMOL/L (136-145) H Potassium Level 4.2 MMOL/L (3.5-5.1) Chloride Level 112 MMOL/L (98-107) H Carbon Dioxide Level 25 MMOL/L (21-32) Anion Gap 10 mmol/L (5-15) Blood Urea Nitrogen 39 mg/dL (7-18) H Creatinine 0.7 MG/DL (0.55-1.30) Estimat Glomerular Filtration Rate > 60 mL/min (>60) Glucose Level 123 MG/DL (74-106) H Calcium Level 8.4 MG/DL (8.5-10.1) L Current Medications Medications (Trade) Dose Ordered Sig/Morgan Route PRN Reason Start Time Stop Time Status Last Admin Dose Admin Acetaminophen (Tylenol) 650 mg Q4H PRN GT Temp >100.5 05/16/20 06:15 06/15/20 06:14 05/21/20 20:01 Acetaminophen (Tylenol) 650 mg Q4H PRN RECTAL Temp >100.5 05/16/20 19:45 06/15/20 19:44 05/17/20 18:30 Chlorhexidine Gluconate (Lilliam-Hex 2%) 1 applic DAILY@1999 TOPIC 05/15/20 20:00 08/13/20 19:59 05/24/20 19:59 Dextrose (Dextrose 50%) 25 ml Q30M PRN IV Hypoglycemia 05/22/20 00:00 08/20/20 00:00 Dextrose (Dextrose 50%) 50 ml Q30M PRN IV Hypoglycemia 05/22/20 00:00 08/20/20 00:00 Insulin Aspart (NovoLOG) EVERY 6 HOURS SUBQ 05/22/20 06:00 08/20/20 05:59 05/24/20 11:11 Insulin Detemir (Levemir) 8 units Q12HR SUBQ 05/25/20 09:00 08/20/20 08:59 05/25/20 09:18 Meropenem 1 gm/ Sodium Chloride 55 ml @ 110 mls/hr Q12HR@0200,1400 IVPB 05/25/20 14:00 05/27/20 14:30 Midodrine (Pro-Amatine) 10 mg TID ORAL 05/23/20 09:00 08/21/20 08:59 05/25/20 09:18 Norepinephrine Bitartrate 8 mg/ Dextrose 250 ml @ 0 mls/hr Q24H IV 05/20/20 18:00 06/19/20 17:59 05/22/20 05:45 Pantoprazole (Protonix) 40 mg DAILY IV 05/15/20 09:00 06/14/20 08:59 05/25/20 09:19 Phenylephrine HCl 100 mg/Dextrose 250 ml @ 0 mls/hr Q24H IV 05/15/20 00:15 06/14/20 00:14 05/15/20 13:28 Sodium Chloride 1,000 ml @ 75 mls/hr [id number] IV 05/15/20 06:45 06/14/20 06:44 05/25/20 06:00 Vasopressin 100 units/Sodium Chloride 100 ml @ 0 mls/hr Q24H IV 05/15/20 00:15 06/14/20 00:14 Zinc Oxide (Zinc Oxide) 1 applic TIDPRN PRN TOPIC Abdominal cramps 05/20/20 13:00 08/18/20 12:59 Yomaira Terry M.D. May 25, 2020 11:31
--- NOTE | 2020-05-25 12:00 | NUR ---
NURSE NOTES: Pt repositioned; oral care provided. 1 BM noted - pt cleaned. Dr Wade assessing pt at bedside - chart/labs reviewed. Pt remains afebrile. On vent - SIMV - FiO2 65%
--- NOTE | 2020-05-25 12:47 | General Progress Note ---
Assessment/Plan Status: unchanged Assessment/Plan: 70-year-old female history of dementia, cachexia, dysphasia G-tube dependent feeding presents for evaluation of rapid heart rate and hypotension. # Septic with element of cardiogenic shock Etiology COVID 19 vs UTI vs bacteremia / contaminant and NSTEMI Bcx POSITIVE WITH G+ Cocci and U cx 05/14 Proteus Mirabillis Continue Meropenem DAY 05/23 Vancomycin stopped stopped Cefepime Dexamethasone due to hypoxia on day 10 now stopped. Leukocytosis improved. # Acute respiratory failure Intubated and not ready to wean off ICU care appreciated Dr. Enriquez consulted Ventilator management per ICU-pulmonary FiO2 65 % today. T piece. Await final recommendations regarding need for possible tracheostomy as she is not tolerating wean off. # SVT vs A. Flutter s/p DC x 3 # NSTEMI HR is controlled in the 100 range and tolerating Digoxin Vasopressors in place Levophed at [address] Morillo requested and TTE requested and poor window. Will need repeat TTE when able to safely complete. Limited due to covid positive Troponin 3.4 now 0.7 EKG 05/17 NSR # AG metabolic acidosis Ddx lactic acidosis Improved. # Hyperglycemia r/o DKA ABG and Ketones negative Endocrine consult with Dr. Shelley IV insulin gtt stopped and in SQ insulin coverage now # Hypernatremia Improving Monitor BMP IVF to 1/2 NS lower rate 75 cc hr continue # COVID 19 Positive on admission. Original infection > 15 days ago, do not qualify for Revdisimir or plasma On Dexamethasone completed 10 day course Contact and droplet isolation # Dysphagia PEG REMOVED 05/16 Carlo Vargas consulted and appreciate follow up and final plan for PEG replacement PENDING. PEG site with dressing in place and OFF PEG for now. NGT placed and Tube feeds started 05/18 and being tolerated at 45 cc hr Glucerna 1.2 # Severe protein caloric malnutrition with Albumin 1.5 RD follow up # Thrombocytopenia Platelets down from 80 K to 64 K to 66 K ( OFF Heparin ) and improved to normal range. 05/17 dc heparin, use SCD, order US Liver, HIT Ab, HIV negative US legs to r.o dvt per [facility] # Hypokalemia Improved # Dementia Baseline # FULL CODE SW follow up to reach out to DPOA and consider change in code status due to high morbidity and risk of inpatient mortality. > 50 min spent in coordination of care and consultation with physicians and RN. Subjective Date patient seen: May 25, 2020 Time patient seen: 12:30 ROS Limited/Unobtainable: Yes Allergies: Coded Allergies: DIVALPROEX SODIUM (Verified Allergy, Unknown, 05/14/20) PENICILLINS (Verified Allergy, Unknown, 05/14/20) All Systems: reviewed and negative except above Subjective Non verbal, intubated Objective Last 24 Hour Vital Signs Date Time Temp Pulse Resp B/P (MAP) Pulse Ox O2 Delivery O2 Flow Rate FiO2 05/25/20 11:00 65 17 101/50 (67) 97 05/25/20 10:53 68 20 65 05/25/20 10:00 72 17 116/57 (76) 96 05/25/20 09:00 68 15 103/52 (69) 97 05/25/20 08:11 65 05/25/20 08:00 Mechanical Ventilator 05/25/20 08:00 98.6 72 17 110/56 (74) 97 05/25/20 08:00 70 05/25/20 08:00 72 05/25/20 07:00 70 14 104/51 (68) 98 05/25/20 06:53 66 17 65 05/25/20 06:30 72 14 05/25/20 06:00 73 17 107/51 (69) 96 05/25/20 05:00 73 16 114/58 (76) 97 05/25/20 04:00 98.5 77 19 115/57 (76) 94 05/25/20 04:00 Mechanical Ventilator 05/25/20 04:00 70 05/25/20 03:14 86 05/25/20 03:00 90 27 140/68 (92) 99 05/25/20 02:47 98 27 70 05/25/20 02:00 84 23 150/72 (98) 92 05/25/20 01:00 76 25 123/60 (81) 95 05/25/20 00:00 99.4 78 24 127/67 (87) 93 05/25/20 00:00 70 05/25/20 00:00 Mechanical Ventilator 05/24/20 23:52 79 142/72 05/24/20 23:31 80 05/24/20 23:21 87 26 70 05/24/20 23:00 81 24 142/72 (95) 95 05/24/20 22:00 79 23 145/68 (93) 96 05/24/20 21:00 74 22 128/62 (84) 95 05/24/20 20:00 Mechanical Ventilator 05/24/20 20:00 99.6 76 24 119/80 (93) 95 05/24/20 19:30 72 05/24/20 19:00 78 22 154/71 (98) 72 05/24/20 18:55 70 05/24/20 18:50 77 26 70 05/24/20 18:00 70 15 142/67 (92) 99 05/24/20 17:20 129/65 05/24/20 17:00 65 20 129/65 (86) 97 05/24/20 16:00 70 05/24/20 16:00 71 05/24/20 16:00 T-piece 05/24/20 16:00 98.9 71 30 142/69 (93) 100 05/24/20 15:00 78 26 144/68 (93) 95 05/24/20 14:00 81 28 151/74 (99) 100 05/24/20 13:37 100 05/24/20 13:23 70 05/24/20 13:00 78 26 139/61 (87) 100 Intake and Output 05/24/20 05/25/20 19:00 07:00 Intake Total 1190 ml 1630 ml Output Total 785 ml 1045 ml Balance 405 ml 585 ml Free Water 40 ml 30 ml IV Total 430 ml 880 ml Tube Feeding 720 ml 720 ml Output Urine Total 785 ml 1045 ml # Bowel Movements 2 3 Laboratory Tests 05/24/20 19:58: POC Whole Blood Glucose [Pending] 05/24/20 23:36: POC Whole Blood Glucose [Pending] 05/25/20 04:00: White Blood Count 16.3H, Red Blood Count 3.14L, Hemoglobin 9.7L, Hematocrit 28.5L, Mean Corpuscular Volume 91, Mean Corpuscular Hemoglobin 31.0, Mean Corpuscular Hemoglobin Concent 34.2, Red Cell Distribution Width 13.8, Platelet Count 253, Mean Platelet Volume 8.5, Neutrophils (%) (Auto) , Lymphocytes (%) (Auto) , Monocytes (%) (Auto) , Eosinophils (%) (Auto) , Basophils (%) (Auto) , Differential Total Cells Counted 100, Neutrophils % (Manual) 95H, Lymphocytes % (Manual) 3L, Monocytes % (Manual) 1, Eosinophils % (Manual) 0, Basophils % (Manual) 0, Band Neutrophils 1, Platelet Estimate Adequate, Platelet Morphology Normal, Hypochromasia 2+, Anisocytosis 1+, Sodium Level 147H, Potassium Level 4.2, Chloride Level 112H, Carbon Dioxide Level 25, Anion Gap 10, Blood Urea Nitrogen 39H, Creatinine 0.7, Estimat Glomerular Filtration Rate > 60, Glucose Level 123H, Calcium Level 8.4L 05/25/20 05:25: POC Whole Blood Glucose [Pending] Height (Feet): 5 Height (Inches): 4.00 Weight (Pounds): 149 General Appearance: WD/WN EENT: PERRL/EOMI Neck: non-tender Cardiovascular: normal rate Respiratory/Chest: normal breath sounds, no respiratory distress, decreased breath sounds Abdomen: non tender Neurologic: unresponsive Jessica Wade MD May 25, 2020 12:47
--- NOTE | 2020-05-25 13:30 | NUR ---
NURSE NOTES: sputum, urine, and blood culture collected and sent down to lab.
--- NOTE | 2020-05-25 14:00 | NUR ---
NURSE NOTES: Pt repositioned; no distress noted. Will continue to monitor.
--- NOTE | 2020-05-25 14:32 | Surgery Progress Note ---
Surgery Progress Note Subjective Symptoms: other Objective Last 24 Hour Vital Signs Date Time Temp Pulse Resp B/P (MAP) Pulse Ox O2 Delivery O2 Flow Rate FiO2 05/25/20 14:00 66 17 111/48 (69) 93 05/25/20 13:00 70 17 132/57 (82) 99 05/25/20 12:00 65 05/25/20 12:00 65 05/25/20 12:00 Mechanical Ventilator 05/25/20 12:00 98.4 66 19 115/55 (75) 98 05/25/20 11:00 65 17 101/50 (67) 97 05/25/20 10:53 68 20 65 05/25/20 10:00 72 17 116/57 (76) 96 05/25/20 09:00 68 15 103/52 (69) 97 05/25/20 08:11 65 05/25/20 08:00 Mechanical Ventilator 05/25/20 08:00 98.6 72 17 110/56 (74) 97 05/25/20 08:00 70 05/25/20 08:00 72 05/25/20 07:00 70 14 104/51 (68) 98 05/25/20 06:53 66 17 65 05/25/20 06:30 72 14 05/25/20 06:00 73 17 107/51 (69) 96 05/25/20 05:00 73 16 114/58 (76) 97 05/25/20 04:00 98.5 77 19 115/57 (76) 94 05/25/20 04:00 Mechanical Ventilator 05/25/20 04:00 70 05/25/20 03:14 86 05/25/20 03:00 90 27 140/68 (92) 99 05/25/20 02:47 98 27 70 05/25/20 02:00 84 23 150/72 (98) 92 05/25/20 01:00 76 25 123/60 (81) 95 05/25/20 00:00 99.4 78 24 127/67 (87) 93 05/25/20 00:00 70 05/25/20 00:00 Mechanical Ventilator 05/24/20 23:52 79 142/72 05/24/20 23:31 80 05/24/20 23:21 87 26 70 05/24/20 23:00 81 24 142/72 (95) 95 05/24/20 22:00 79 23 145/68 (93) 96 05/24/20 21:00 74 22 128/62 (84) 95 05/24/20 20:00 Mechanical Ventilator 05/24/20 20:00 99.6 76 24 119/80 (93) 95 05/24/20 19:30 72 05/24/20 19:00 78 22 154/71 (98) 72 05/24/20 18:55 70 05/24/20 18:50 77 26 70 05/24/20 18:00 70 15 142/67 (92) 99 05/24/20 17:20 129/65 05/24/20 17:00 65 20 129/65 (86) 97 05/24/20 16:00 70 05/24/20 16:00 71 05/24/20 16:00 T-piece 05/24/20 16:00 98.9 71 30 142/69 (93) 100 05/24/20 15:00 78 26 144/68 (93) 95 I&O Intake and Output 05/24/20 05/25/20 19:00 07:00 Intake Total 1190 ml 1630 ml Output Total 785 ml 1045 ml Balance 405 ml 585 ml Free Water 40 ml 30 ml IV Total 430 ml 880 ml Tube Feeding 720 ml 720 ml Output Urine Total 785 ml 1045 ml # Bowel Movements 2 3 Dressing: other Wound: other Cardiovascular: RSR Respiratory: decreased breath sounds Abdomen: soft, present bowel sounds Extremities: no cyanosis Laboratory Tests Test 05/24/20 19:58 05/24/20 23:36 05/25/20 04:00 05/25/20 05:25 POC Whole Blood Glucose Pending Pending Pending White Blood Count 16.3 K/UL (4.8-10.8) H Red Blood Count 3.14 M/UL (4.20-5.40) L Hemoglobin 9.7 G/DL (12.0-16.0) L Hematocrit 28.5 % (37.0-47.0) L Mean Corpuscular Volume 91 FL (80-99) Mean Corpuscular Hemoglobin 31.0 PG (27.0-31.0) Mean Corpuscular Hemoglobin Concent 34.2 G/DL (32.0-36.0) Red Cell Distribution Width 13.8 % (11.6-14.8) Platelet Count 253 K/UL (150-450) Mean Platelet Volume 8.5 FL (6.5-10.1) Neutrophils (%) (Auto) % (45.0-75.0) Lymphocytes (%) (Auto) % (20.0-45.0) Monocytes (%) (Auto) % (1.0-10.0) Eosinophils (%) (Auto) % (0.0-3.0) Basophils (%) (Auto) % (0.0-2.0) Differential Total Cells Counted 100 Neutrophils % (Manual) 95 % (45-75) H Lymphocytes % (Manual) 3 % (20-45) L Monocytes % (Manual) 1 % (1-10) Eosinophils % (Manual) 0 % (0-3) Basophils % (Manual) 0 % (0-2) Band Neutrophils 1 % (0-8) Platelet Estimate Adequate Platelet Morphology Normal Hypochromasia 2+ Anisocytosis 1+ Sodium Level 147 MMOL/L (136-145) H Potassium Level 4.2 MMOL/L (3.5-5.1) Chloride Level 112 MMOL/L (98-107) H Carbon Dioxide Level 25 MMOL/L (21-32) Anion Gap 10 mmol/L (5-15) Blood Urea Nitrogen 39 mg/dL (7-18) H Creatinine 0.7 MG/DL (0.55-1.30) Estimat Glomerular Filtration Rate > 60 mL/min (>60) Glucose Level 123 MG/DL (74-106) H Calcium Level 8.4 MG/DL (8.5-10.1) L Plan Problems: (1) Hypernatremia (2) Renal failure (3) Respiratory failure (4) Sepsis Assessment & Plan: COVID + leukocytosis anemia electrolytes abnormal on iv fluids renal input appreciated cxr noted abx as per ID will follow with recs Interim placement of orogastric tube, also documented on recent abdominal radiograph. Stable satisfactory position of endotracheal tube and right jugular central venous catheter. There is increased pleural fluid and likely left basilar consolidation/atelectasis. The right lung and pleural space remain clear. Impression: Increasing left pleural fluid and likely basilar consolidation/atelectasis. Interim orogastric intubation DAILY ESTIMATED NEEDS: Needs based on Pulmonary, DM, wounds 66.6kg 25-30 kcals/kg 1199-6093 total kcals 1.25-1.5 g protein/kg 83-100 g total protein 20-25 mL/kg 5820-5055 total fluid mLs NUTRITION DIAGNOSIS: Swallowing difficulty r/t dysphagia as evidenced by h/o CVA, pt is GT dep, currently ICU status, now intubated, off pressor support, GT feeds initiated. CURRENT TF:Glucerna 1.2 @45ml/hr ENTERAL NUTRITION RECOMMENDATIONS: As medically able: GLUCERNA 1.5 goal of 45ml/hr x24 hrs to provide 1080ml, 1620 kcal, 89g pro, 820ml free H2O -> as medically able without aspiration risk start Glucerna 1.5 @low rate 25ml/hr for 6 hrs. Advance as tolerated 10ml/hr q4-6 hrs to goal. - Flush per MD, HOB over 30 degrees. ---- If not hemodynamically stable, rec trophic feeds of 5-10ml/hr to maintain gut integrity. ADDITIONAL RECOMMENDATIONS: 1) Obtain an accurate calibrated bed scale wt 2) F/up w/ H&P 3) With active TF orders, add JASMYN BID for noted DTPI wounds 4) TF recs as above when off bipap and w/ hemodynamic stability -> Now intubated, off pressors, on GT feeds. he spleen size is normal. The gallbladder contains sludge. No stones. No wall thickening nor pericholecystic fluid. Common bile duct measures 4 mm in diameter. Small amount free fluid is seen adjacent to the liver and spleen Impression: Gallbladder sludge. Negative for dilated bile ducts Normal appearing liver and spleen (5) Elevated d-dimer (6) COVID-19 Assessment & Plan: ++ (7) Pressure ulcer Assessment & Plan: Pt presented on admission with multiple Pressure injuries.DTPI noted to R Buttocks (L)3.8cm x (W)3.4cm. Base of wound is purpuric,fluctuant with surrounding maroon and indurated borders. DTPI Upper L Buttocks(L)5.5cm x (W)4cm. Base of wound is maroon and indurated. Borders are irregular. Non-Blanchable erythema without induration/fluctuance L lower buttocks(L)4cm x (W)7cm. R and L heels are soft but blanchable. Erosion noted at peristomal GT site. Site is erythematous and excoriated. Small amt. sanguineous exudate. Tx.Plan: Apply Moisture Barrier Paste to Sacrum, R and L Buttocks. Cover each area with Optifoam drsg. Change every 3 days and prn. Apply Moisture Barrier Paste to R and L Ischial tuberosities with each incontinence care. Apply Cavilon Skin Barrier to both heels. Cover each heel and malleoli with Optifoam drsg. Change every 7 days and prn. Reposition at least every 2hours or as tolerated. Off-load heels with pillow. APM/DARIN Mattress overlay. Apply Zinc Oxide Paste TID to GT site. Leave open to Air. (8) Dementia (9) CVA (cerebral vascular accident) (10) T2DM (type 2 diabetes mellitus) (11) Gastrostomy present (12) COVID-19 (13) Rapid atrial fibrillation Paul Garcia May 25, 2020 14:32
[2020-05-25 15:39] LABS: BILIRUBIN, URINE NEGATIVE (NEGATIVE); COLOR,URINE PALE YELLOW; GLUCOSE, URINE (UA) NEGATIVE (NEGATIVE); KETONES,URINE NEGATIVE (NEGATIVE); LEUKOCYTE ESTERASE ,URINE 2+ (NEGATIVE); NITRITE,URINE NEGATIVE (NEGATIVE); PH,URINE 5 (4.5-8.0); PROTEIN,URINE 2+ (NEGATIVE); UROBILINOGEN,URINE NORMAL MG/DL (0.0-1.0)
[2020-05-25 15:42] LABS: APPEARANCE,URINE SLIGHTLY CLOUDY
--- NOTE | 2020-05-25 16:00 | NUR ---
NURSE NOTES: Pt repositioned, oral care provided. Remains afebrile. Will continue to monitor.
[2020-05-25] MEDS ORDERED: NS 275ml ONE (16:06)
[2020-05-25] MEDS ORDERED: Sterile Water Irrig 1000ml IRRIG ONE (16:06)
[2020-05-25] MEDS ORDERED: 1/2 NS 1000ml IV ONE (16:06)
--- NOTE | 2020-05-25 16:30 | NUR ---
NURSE NOTES: Spoke with Quinten Lucio (guardian) over phone, stating he is returning Hannah's () call regarding change in pt's code status and that he is unable to make decisions/give consent for the patient unless the hospital is willing to go through court process; he states "follow your hospital protocol." Dr Wade notified. Spoke with Zelalem Feldman ( currently covering for Hannah) - she states she will contact Naveed today to f/u.
--- NOTE | 2020-05-25 17:05 | Cardiology Progress Note ---
Assessment/Plan Status: stable Assessment/Plan Assessment/Plan Assessment/Plan 1. Ipt-AF-opztvnnyd myocardial infarction. Her troponin was 1.258,1.2,1.9, 3.4 and the down to 0.7 EKG does not show any acute ST-T wave abnormality and certainly no ST elevation. Due to septic shock, DCCV and Renal failure. The echocardiogram had poor windows. 2. PAF with RVR. S/P DCCV 3 times No more fib or accelerated junctional rhythm. Can not use beta-ramakrishna or calcium-channel ramakrishna as the patient is still on Levophed. Dig level is 1.6 Patient has converted to NSR 3. S/P Septic shock. Off Levophed, on Midodrine and antibiotic 4. Severe hypernatremia with sodium of 174, BUN of 131, creatinine 2.7 due to dehydration. Sodium is 155 with BUN of 91 and creatinine of 1.9 with IV fluids. 5. Lactic acidosis on antibiotic. 6. Dysphagia, status post PEG placement. GT has trice removed on 05/18 still some drainage from the GT site NGTF GT replacement when more stable per Dr Matos 7. History of CVA and dementia. 8. Respiratory failure, on T piece today Subjective Cardiovascular: Reports: no symptoms Respiratory: Reports: no symptoms Gastrointestinal/Abdominal: Reports: no symptoms Genitourinary: Reports: no symptoms Subjective [employer] Converted to normal sinus Objective Last 24 Hour Vital Signs Date Time Temp Pulse Resp B/P (MAP) Pulse Ox O2 Delivery O2 Flow Rate FiO2 05/25/20 16:00 65 05/25/20 16:00 61 15 123/53 (76) 99 05/25/20 16:00 57 05/25/20 16:00 Mechanical Ventilator 05/25/20 15:05 59 16 65 05/25/20 15:00 65 14 129/55 (79) 99 05/25/20 14:00 66 17 111/48 (69) 93 05/25/20 13:00 70 17 132/57 (82) 99 05/25/20 12:00 65 05/25/20 12:00 65 05/25/20 12:00 Mechanical Ventilator 05/25/20 12:00 98.4 66 19 115/55 (75) 98 05/25/20 11:00 65 17 101/50 (67) 97 05/25/20 10:53 68 20 65 05/25/20 10:00 72 17 116/57 (76) 96 05/25/20 09:00 68 15 103/52 (69) 97 05/25/20 08:11 65 05/25/20 08:00 Mechanical Ventilator 05/25/20 08:00 98.6 72 17 110/56 (74) 97 05/25/20 08:00 70 05/25/20 08:00 72 05/25/20 07:00 70 14 104/51 (68) 98 05/25/20 06:53 66 17 65 05/25/20 06:30 72 14 05/25/20 06:00 73 17 107/51 (69) 96 05/25/20 05:00 73 16 114/58 (76) 97 05/25/20 04:00 98.5 77 19 115/57 (76) 94 05/25/20 04:00 Mechanical Ventilator 05/25/20 04:00 70 05/25/20 03:14 86 05/25/20 03:00 90 27 140/68 (92) 99 05/25/20 02:47 98 27 70 05/25/20 02:00 84 23 150/72 (98) 92 05/25/20 01:00 76 25 123/60 (81) 95 05/25/20 00:00 99.4 78 24 127/67 (87) 93 05/25/20 00:00 70 05/25/20 00:00 Mechanical Ventilator 05/24/20 23:52 79 142/72 05/24/20 23:31 80 05/24/20 23:21 87 26 70 05/24/20 23:00 81 24 142/72 (95) 95 05/24/20 22:00 79 23 145/68 (93) 96 05/24/20 21:00 74 22 128/62 (84) 95 05/24/20 20:00 Mechanical Ventilator 05/24/20 20:00 99.6 76 24 119/80 (93) 95 05/24/20 19:30 72 05/24/20 19:00 78 22 154/71 (98) 72 05/24/20 18:55 70 05/24/20 18:50 77 26 70 05/24/20 18:00 70 15 142/67 (92) 99 05/24/20 17:20 129/65 General Appearance: no apparent distress, alert EENT: PERRL/EOMI, normal ENT inspection, TMs normal, pharynx normal Neck: non-tender, normal alignment, supple, normal inspection Rhythm: NSR Cardiovascular: normal peripheral pulses, normal rate Respiratory/Chest: chest wall non-tender, lungs clear, normal breath sounds Abdomen: normal bowel sounds, non tender, soft, no organomegaly, no mass Extremities: normal range of motion, non-tender, normal inspection Neurologic: crab meat processor II-XII grossly normal, no motor/sensory deficits Intake and Output 05/24/20 05/25/20 19:00 07:00 Intake Total 1190 ml 1630 ml Output Total 785 ml 1045 ml Balance 405 ml 585 ml Free Water 40 ml 30 ml IV Total 430 ml 880 ml Tube Feeding 720 ml 720 ml Output Urine Total 785 ml 1045 ml # Bowel Movements 2 3 Laboratory Tests Test 05/24/20 19:58 05/24/20 23:36 05/25/20 04:00 05/25/20 05:25 POC Whole Blood Glucose Pending Pending Pending White Blood Count 16.3 K/UL (4.8-10.8) H Red Blood Count 3.14 M/UL (4.20-5.40) L Hemoglobin 9.7 G/DL (12.0-16.0) L Hematocrit 28.5 % (37.0-47.0) L Mean Corpuscular Volume 91 FL (80-99) Mean Corpuscular Hemoglobin 31.0 PG (27.0-31.0) Mean Corpuscular Hemoglobin Concent 34.2 G/DL (32.0-36.0) Red Cell Distribution Width 13.8 % (11.6-14.8) Platelet Count 253 K/UL (150-450) Mean Platelet Volume 8.5 FL (6.5-10.1) Neutrophils (%) (Auto) % (45.0-75.0) Lymphocytes (%) (Auto) % (20.0-45.0) Monocytes (%) (Auto) % (1.0-10.0) Eosinophils (%) (Auto) % (0.0-3.0) Basophils (%) (Auto) % (0.0-2.0) Differential Total Cells Counted 100 Neutrophils % (Manual) 95 % (45-75) H Lymphocytes % (Manual) 3 % (20-45) L Monocytes % (Manual) 1 % (1-10) Eosinophils % (Manual) 0 % (0-3) Basophils % (Manual) 0 % (0-2) Band Neutrophils 1 % (0-8) Platelet Estimate Adequate Platelet Morphology Normal Hypochromasia 2+ Anisocytosis 1+ Sodium Level 147 MMOL/L (136-145) H Potassium Level 4.2 MMOL/L (3.5-5.1) Chloride Level 112 MMOL/L (98-107) H Carbon Dioxide Level 25 MMOL/L (21-32) Anion Gap 10 mmol/L (5-15) Blood Urea Nitrogen 39 mg/dL (7-18) H Creatinine 0.7 MG/DL (0.55-1.30) Estimat Glomerular Filtration Rate > 60 mL/min (>60) Glucose Level 123 MG/DL (74-106) H Calcium Level 8.4 MG/DL (8.5-10.1) L Test 05/25/20 13:30 Urine Color Pale yellow Urine Appearance Slightly cloudy Urine pH 5 (4.5-8.0) Urine Specific [place] 1.010 (1.005-1.035) Urine Protein 2+ (NEGATIVE) H Urine Glucose (UA) Negative (NEGATIVE) Urine Ketones Negative (NEGATIVE) Urine Blood 5+ (NEGATIVE) H Urine Nitrite Negative (NEGATIVE) Urine Bilirubin Negative (NEGATIVE) Urine Urobilinogen Normal MG/DL (0.0-1.0) Urine Leukocyte Esterase 2+ (NEGATIVE) H Urine RBC 40-60 /HPF (0 - 2) H Urine WBC 10-15 /HPF (0 - 2) H Urine Squamous Epithelial Cells Moderate /LPF (NONE/OCC) H Urine Bacteria Few /HPF (NONE) Urine Yeast Moderate /HPF (NONE) H Erasto Peterson MD May 25, 2020 17:05
--- NOTE | 2020-05-25 17:10 | NUR ---
CRIMINAL JUSTICE TEACHER NOTE MARIELLA spoke w/ pt's conservator, Quinten Lucio [phone] stating that Curtis conservator does not have right to make medical decision. The patient herself has the right to provide consent. If pt refuses or cannot provide consent, the petition needs to be filed to get an approval/consent for tx. Per Quinten, court dates are held 2x/week. Per Quinten, two doctors can provide consent for procedure if it is immediately needed only if this aligns with the hospital protocol. After the procedure is done, the statement/note w/ two doctors signatures needs to be faxed to the conservator fax#[phone]. MARIELLA requested necessary documents to change the code status/petition for consent. Awaiting for an e-mail from the conservator.
--- NOTE | 2020-05-25 18:00 | NUR ---
NURSE NOTES: Pt repositioned; no distress noted. Covid swab recollected and sent down to lab.
--- NOTE | 2020-05-25 18:59 | NUR ---
NURSE HAND-OFF REPORT: Latest Vital Signs: Temperature 98.9 , Pulse 63 , B/P 131 /67 , Respiratory Rate 15 , O2 SAT 100 , Mechanical Ventilator, O2 Flow Rate 12.0 . EKG Rhythm: Sinus Rhythm Rhythm change?: Y MD Notified?: n/a MD Response: n/a Latest Garza Fall Score: 50 Fall Risk: High Risk Safety Measures: Call light Within Reach, Bed Alarm Zone 1, Side Rails Side Rails x2, Bed position Low and Locked. Fall Precautions: Door Sign Report given to SARA Urbano.
--- NOTE | 2020-05-25 19:03 | NUR ---
NURSE NOTES: Received patient from SARA Schultz. Will continue plan of care.
--- NOTE | 2020-05-25 20:00 | NUR ---
NURSE NOTES: Patient is awake; eyes wide opened but does track- looks comfortable. Intubated; ETT 7.5 @ 23cm to the right lipline to vent with settings of SIMV 8, PS:8 TV:500, PEEP:5, FiO2:65%, O2sat:97%. Right nare NGT in place and running Glucerna 1.2 @ 60ml/hr. Arauz intact and draining. GT site is leaking, covered with optifoam and waiting to be healed for new GT placement. Right IJ running 1/2 NS @ 75ml/hr. RT at bedside providing suctioning. Safety measures in place; bed low, locked and alarm is on. Afebrile: 98.5F axillary. Will continue plan of care.
[2020-05-25] MEDS: Dyna-Hex 2% Top Sol 2oz TOPIC SCH (20:10)
--- NOTE | 2020-05-25 22:00 | NUR ---
NURSE NOTES: Right IJ TLC dressing soiled; patient has alot of secretions. Dressing changed and covered. Patient is comfortable.
[2020-05-26] VITALS (23 sets, daily range): BP systolic 97–155; BP diastolic 40–73
--- NOTE | 2020-05-26 | NUR ---
NURSE NOTES: Patient turned and repositioned. B/S 94 no coverage needed. Safety measures in place.
[2020-05-26] MEDS: Phenylephrine 100 MG in D5W 240 ML IV SCH ×2 (00:03→23:15)
[2020-05-26] MEDS: Vasopressin 100 UNITS in NS 95 ML IV SCH ×2 (00:04→23:15)
--- NOTE | 2020-05-26 02:00 | NUR ---
NURSE NOTES: Bed bath given w/ kendall-hex, linens changed, turned/repositioned, suctioning and oral care done. Patient looks comfortable.
[2020-05-26] MEDS: Meropenem 1 GM in NS 55 ML IVPB SCH ×2 (02:12→13:32)
--- NOTE | 2020-05-26 04:00 | NUR ---
NURSE NOTES: Blood drawn and sent to lab for AM results. FiO2 titrated down to 55%, O2sat: 99-100%. Will monitor. Afebrile: 98.5F axillary. BP:111/58, HR:58
[2020-05-26 04:38] LABS: HEMATOCRIT 23.6 % (37.0-47.0); HEMOGLOBIN 7.8 G/DL (12.0-16.0); MEAN CORPUSCULAR VOLUME 92 FL (80-99); PLATELET COUNT 206 K/UL (150-450); RED BLOOD COUNT 2.57 M/UL (4.20-5.40); RED CELL DISTRIBUTION WIDTH 14.5 % (11.6-14.8); WHITE BLOOD COUNT 9.3 K/UL (4.8-10.8)
[2020-05-26 05:00] LABS: ANION GAP 5 mmol/L (5-15); BLOOD UREA NITROGEN 34 mg/dL (7-18); CALCIUM 7.9 MG/DL (8.5-10.1); CARBON DIOXIDE 27 MMOL/L (21-32); CHLORIDE 111 MMOL/L (98-107); CREATININE 0.7 MG/DL (0.55-1.30); POTASSIUM 4.1 MMOL/L (3.5-5.1); SODIUM 143 MMOL/L (136-145)
[2020-05-26] MEDS: NovoLOG Insulin Flexpen SUBQ SCH ×5 (06:00→23:15)
--- NOTE | 2020-05-26 06:00 | NUR ---
NURSE NOTES: Left message for Dr. Wade regarding hemoglobin dropping from 9.7 to 7.8 this AM. Also informed him that patient has been mostly bradycardic during the night but patient is easily arousable and BP is stable. Awaiting response.
--- NOTE | 2020-05-26 06:41 | General Progress Note ---
Subjective ROS Limited/Unobtainable: Yes Allergies: Coded Allergies: DIVALPROEX SODIUM (Verified Allergy, Unknown, 05/14/20) PENICILLINS (Verified Allergy, Unknown, 05/14/20) Subjective events noted and interval notes reviewed glucose values are on low normal side Levemir was held Item Value Date Time Bedside Blood Glucose 104 mg/dl 05/26/20 0600 Bedside Blood Glucose 94 mg/dl 05/26/20 0000 Bedside Blood Glucose 72 mg/dl 05/25/20 2009 Bedside Blood Glucose 89 mg/dl 05/25/20 1810 Bedside Blood Glucose 118 mg/dl 05/25/20 1200 Bedside Blood Glucose 124 mg/dl H 05/25/20 0918 Bedside Blood Glucose 123 mg/dl H 05/25/20 0600 Objective Last 24 Hour Vital Signs Date Time Temp Pulse Resp B/P (MAP) Pulse Ox O2 Delivery O2 Flow Rate FiO2 05/26/20 06:00 57 13 102/57 (72) 99 05/26/20 05:00 55 13 104/49 (67) 100 05/26/20 04:00 98.5 59 11 111/58 (75) 100 05/26/20 04:00 Mechanical Ventilator 05/26/20 03:02 56 15 55 05/26/20 03:01 64 05/26/20 03:00 65 19 114/56 (75) 97 05/26/20 02:00 61 19 99/40 (59) 98 05/26/20 01:00 64 17 116/58 (77) 100 05/26/20 00:03 55 97/56 05/26/20 00:00 97.9 52 12 97/56 (70) 100 05/26/20 00:00 Mechanical Ventilator 05/26/20 00:00 65 05/25/20 23:58 52 05/25/20 23:00 59 13 113/54 (73) 99 05/25/20 22:46 56 13 65 05/25/20 22:00 57 15 118/49 (72) 100 05/25/20 21:00 53 14 109/51 (70) 99 05/25/20 20:00 65 05/25/20 20:00 Mechanical Ventilator 05/25/20 20:00 98.5 60 16 125/63 (83) 99 05/25/20 19:32 54 05/25/20 19:05 58 18 65 05/25/20 19:00 61 17 120/51 (74) 99 05/25/20 18:00 63 15 131/67 (88) 100 05/25/20 17:17 108/43 05/25/20 17:00 58 14 108/43 (64) 99 05/25/20 16:00 65 05/25/20 16:00 98.9 61 15 123/53 (76) 99 05/25/20 16:00 57 05/25/20 16:00 Mechanical Ventilator 05/25/20 15:05 59 16 65 05/25/20 15:00 65 14 129/55 (79) 99 05/25/20 14:00 66 17 111/48 (69) 93 05/25/20 13:00 70 17 132/57 (82) 99 05/25/20 12:00 65 05/25/20 12:00 65 05/25/20 12:00 Mechanical Ventilator 05/25/20 12:00 98.4 66 19 115/55 (75) 98 05/25/20 11:00 65 17 101/50 (67) 97 05/25/20 10:53 68 20 65 05/25/20 10:00 72 17 116/57 (76) 96 05/25/20 09:00 68 15 103/52 (69) 97 05/25/20 08:11 65 05/25/20 08:00 Mechanical Ventilator 05/25/20 08:00 98.6 72 17 110/56 (74) 97 05/25/20 08:00 70 05/25/20 08:00 72 05/25/20 07:00 70 14 104/51 (68) 98 05/25/20 06:53 66 17 65 Intake and Output 05/25/20 05/26/20 19:00 07:00 Intake Total 1735 ml 1840 ml Output Total 940 ml 800 ml Balance 795 ml 1040 ml Free Water 60 ml 300 ml IV Total 955 ml 880 ml Tube Feeding 720 ml 660 ml Output Urine Total 940 ml 800 ml # Bowel Movements 3 1 Laboratory Tests 05/25/20 13:30: Urine Color Pale yellow, Urine Appearance Slightly cloudy, Urine pH 5, Urine Specific [place] 1.010, Urine Protein 2+H, Urine Glucose (UA) Negative, Urine Ketones Negative, Urine Blood 5+H, Urine Nitrite Negative, Urine Bilirubin Negative, Urine Urobilinogen Normal, Urine Leukocyte Esterase 2+H, Urine RBC 40- 60H, Urine WBC 10-15H, Urine Squamous Epithelial Cells ModerateH, Urine Bacteria Few, Urine Yeast ModerateH 05/26/20 04:00: White Blood Count 9.3, Red Blood Count 2.57L, Hemoglobin 7.8L, Hematocrit 23.6L, Mean Corpuscular Volume 92, Mean Corpuscular Hemoglobin 30.5, Mean Corpuscular Hemoglobin Concent 33.3, Red Cell Distribution Width 14.5, Platelet Count 206, Mean Platelet Volume 8.7, Neutrophils (%) (Auto) , Lymphocytes (%) (Auto) , Monocytes (%) (Auto) , Eosinophils (%) (Auto) , Basophils (%) (Auto) , Neutrophils % (Manual) [Pending], Lymphocytes % (Manual) [Pending], Platelet Estimate [Pending], Platelet Morphology [Pending], Sodium Level 143, Potassium Level 4.1, Chloride Level 111H, Carbon Dioxide Level 27, Anion Gap 5, Blood Urea Nitrogen 34H, Creatinine 0.7, Estimat Glomerular Filtration Rate > 60, Glucose Level 100, Calcium Level 7.9L Height (Feet): 5 Height (Inches): 4.00 Weight (Pounds): 149 Objective Current Medications Medications (Trade) Dose Ordered Sig/Morgan Route PRN Reason Start Time Stop Time Status Last Admin Dose Admin Acetaminophen (Tylenol) 650 mg Q4H PRN GT Temp >100.5 05/16/20 06:15 06/15/20 06:14 05/21/20 20:01 Acetaminophen (Tylenol) 650 mg Q4H PRN RECTAL Temp >100.5 05/16/20 19:45 06/15/20 19:44 05/17/20 18:30 Chlorhexidine Gluconate (Lilliam-Hex 2%) 1 applic DAILY@1999 TOPIC 05/15/20 20:00 08/13/20 19:59 05/25/20 20:10 Dextrose (Dextrose 50%) 25 ml Q30M PRN IV Hypoglycemia 05/22/20 00:00 08/20/20 00:00 Dextrose (Dextrose 50%) 50 ml Q30M PRN IV Hypoglycemia 05/22/20 00:00 08/20/20 00:00 Insulin Aspart (NovoLOG) EVERY 6 HOURS SUBQ 05/22/20 06:00 08/20/20 05:59 05/24/20 11:11 Insulin Detemir (Levemir) 8 units Q12HR SUBQ 05/25/20 09:00 08/20/20 08:59 05/25/20 09:18 Meropenem 1 gm/ Sodium Chloride 55 ml @ 110 mls/hr Q12HR@0200,1400 IVPB 05/25/20 14:00 05/27/20 14:30 05/26/20 02:12 Midodrine (Pro-Amatine) 10 mg TID ORAL 05/23/20 09:00 08/21/20 08:59 05/25/20 18:11 Norepinephrine Bitartrate 8 mg/ Dextrose 250 ml @ 0 mls/hr Q24H IV 05/20/20 18:00 06/19/20 17:59 05/22/20 05:45 Pantoprazole (Protonix) 40 mg DAILY IV 05/15/20 09:00 06/14/20 08:59 05/25/20 09:19 Phenylephrine HCl 100 mg/Dextrose 250 ml @ 0 mls/hr Q24H IV 05/15/20 00:15 06/14/20 00:14 05/15/20 13:28 Sodium Chloride 1,000 ml @ 75 mls/hr [id number] IV 05/15/20 06:45 06/14/20 06:44 05/25/20 19:00 Vasopressin 100 units/Sodium Chloride 100 ml @ 0 mls/hr Q24H IV 05/15/20 00:15 06/14/20 00:14 Zinc Oxide (Zinc Oxide) 1 applic TIDPRN PRN TOPIC Abdominal cramps 05/20/20 13:00 08/18/20 12:59 Assessment/Plan Problem List: (1) COVID-19 ICD Codes: U07.1 - COVID-19 SNOMED: 417172749 (2) Elevated d-dimer ICD Codes: R79.89 - Other specified abnormal findings of blood chemistry SNOMED: 600729625 (3) Rapid atrial fibrillation ICD Codes: I48.91 - Unspecified atrial fibrillation SNOMED: 176352242 (4) Sepsis ICD Codes: A41.9 - Sepsis, unspecified organism SNOMED: 24853328 (5) Respiratory failure ICD Codes: J96.90 - Respiratory failure, unspecified, unspecified whether with hypoxia or hypercapnia SNOMED: 185729995 (6) Renal failure ICD Codes: N19 - Unspecified kidney failure SNOMED: 34292584 (7) Hypernatremia ICD Codes: E87.0 - Hyperosmolality and hypernatremia SNOMED: 779915313 (8) T2DM (type 2 diabetes mellitus) ICD Codes: E11.9 - Type 2 diabetes mellitus without complications SNOMED: 75020892 Status: stable Assessment/Plan: DC Levemir continue Novolog sliding scale every 6 hours hypoglycemia protocol in order Chau Shelley MD May 26, 2020 06:41
--- NOTE | 2020-05-26 07:24 | NUR ---
NURSE HAND-OFF REPORT: Latest Vital Signs: Temperature 98.5 , Pulse 57 , B/P 105 /49 , Respiratory Rate 15 , O2 SAT 100 , Mechanical Ventilator, O2 Flow Rate 12.0 . Vital Sign Comment: Stable EKG Rhythm: Sinus Bradycardia Rhythm change?: N Notified?: Y -Dr. Wade @ 0600 Response: No New Orders Received Latest Garza Fall Score: 50 Fall Risk: High Risk Safety Measures: Call light Within Reach, Bed Alarm Zone 1, Side Rails Side Rails x2, Bed position Low and Locked. Fall Precautions: Door Sign Report given to .
--- NOTE | 2020-05-26 08:00 | NUR ---
NURSE NOTES: Pt was assessed after receiving change of shift report from Yolie RUIZ. Pt opens eyes to touch, withdraws to pain, orally intubated. ETT 7.5 at 23cm lipline with vent settings SIMV-8, PS8, VT500, Peep 5, FIO2 55% at O2Sat 100%. SB to NSR on draw press operator, HR fluctuating from 55-60. Temp 98.2F axillary. IV fluid 0.45NS is infusing at 75ml/hour via right IJ triple lumen central line. NGT is present in right nare, with feeding Glucerna 1.2 infusing at goal rate of 60ml/hour. Arauz catheter is present, draining mildly cloudy/yellow urine. Skin alterations are noted, sites covered with dressings. Pt is on pressure release mattress. HOB at 30 degrees, bed locked, in lowest position, three side rails up. Will continue to monitor pt and follow plan of care per MD orders and protocol.
[2020-05-26] MEDS: Pantoprazole Inj IV SCH (09:23)
[2020-05-26] MEDS: Midodrine 10mg tab ORAL SCH ×3 (09:23→17:59)
--- NOTE | 2020-05-26 09:28 | NUR ---
RADIOLOGY DEPT., CHEST X-RAY DONE.-P.DYE
--- NOTE | 2020-05-26 09:49 | NUR ---
manager cancer note Plan for PEG placment Dr Wade to consent MD to for PEG per conservator or submit petition for PEG Dr Wade to F/U
--- NOTE | 2020-05-26 10:00 | NUR ---
NURSE NOTES: Dr. Wade is at the nurse's station. CBC was redrawn and sent to lab for repeat Hgb per Dr. Wade's orders. FIO2 has been titrated down to 45%, with O2Sat at 100%. AM meds were administered. Oral care was done.
--- NOTE | 2020-05-26 10:07 | NUR ---
PORTRAIT PHOTOGRAPHER NOTE SW received the court petition form to change code status/consent for procedure. MARIELLA relayed all information to Dr. Wade. Dr. Wade will review the form.
--- NOTE | 2020-05-26 10:44 | Surgery Progress Note ---
Surgery Progress Note Subjective Additional Comments wbc improved on vent weaning no n/v comfortable Objective Last 24 Hour Vital Signs Date Time Temp Pulse Resp B/P (MAP) Pulse Ox O2 Delivery O2 Flow Rate FiO2 05/26/20 07:05 59 13 55 05/26/20 07:00 57 15 105/49 (67) 100 05/26/20 06:30 64 14 05/26/20 06:00 57 13 102/57 (72) 99 05/26/20 05:00 55 13 104/49 (67) 100 05/26/20 04:00 98.5 59 11 111/58 (75) 100 05/26/20 04:00 Mechanical Ventilator 05/26/20 03:02 56 15 55 05/26/20 03:01 64 05/26/20 03:00 65 19 114/56 (75) 97 05/26/20 02:00 61 19 99/40 (59) 98 05/26/20 01:00 64 17 116/58 (77) 100 05/26/20 00:03 55 97/56 05/26/20 00:00 97.9 52 12 97/56 (70) 100 05/26/20 00:00 Mechanical Ventilator 05/26/20 00:00 65 05/25/20 23:58 52 05/25/20 23:00 59 13 113/54 (73) 99 05/25/20 22:46 56 13 65 05/25/20 22:00 57 15 118/49 (72) 100 05/25/20 21:00 53 14 109/51 (70) 99 05/25/20 20:00 65 05/25/20 20:00 Mechanical Ventilator 05/25/20 20:00 98.5 60 16 125/63 (83) 99 05/25/20 19:32 54 05/25/20 19:05 58 18 65 05/25/20 19:00 61 17 120/51 (74) 99 05/25/20 18:00 63 15 131/67 (88) 100 05/25/20 17:17 108/43 05/25/20 17:00 58 14 108/43 (64) 99 05/25/20 16:00 65 05/25/20 16:00 98.9 61 15 123/53 (76) 99 05/25/20 16:00 57 9/16/20 16:00 Mechanical Ventilator 05/25/20 15:05 59 16 65 05/25/20 15:00 65 14 129/55 (79) 99 05/25/20 14:00 66 17 111/48 (69) 93 05/25/20 13:00 70 17 132/57 (82) 99 05/25/20 12:00 65 05/25/20 12:00 65 05/25/20 12:00 Mechanical Ventilator 05/25/20 12:00 98.4 66 19 115/55 (75) 98 05/25/20 11:00 65 17 101/50 (67) 97 05/25/20 10:53 68 20 65 I&O Intake and Output 05/25/20 05/26/20 19:00 07:00 Intake Total 1735 ml 1975 ml Output Total 940 ml 850 ml Balance 795 ml 1125 ml Free Water 60 ml 300 ml IV Total 955 ml 955 ml Tube Feeding 720 ml 720 ml Output Urine Total 940 ml 850 ml # Bowel Movements 3 2 Dressing: other Wound: other Cardiovascular: RSR Respiratory: decreased breath sounds Abdomen: soft, non-tender, present bowel sounds Extremities: edema, no tenderness, no cyanosis, other Laboratory Tests Test 05/25/20 13:30 05/26/20 04:00 Urine Color Pale yellow Urine Appearance Slightly cloudy Urine pH 5 (4.5-8.0) Urine Specific [place] 1.010 (1.005-1.035) Urine Protein 2+ (NEGATIVE) H Urine Glucose (UA) Negative (NEGATIVE) Urine Ketones Negative (NEGATIVE) Urine Blood 5+ (NEGATIVE) H Urine Nitrite Negative (NEGATIVE) Urine Bilirubin Negative (NEGATIVE) Urine Urobilinogen Normal MG/DL (0.0-1.0) Urine Leukocyte Esterase 2+ (NEGATIVE) H Urine RBC 40-60 /HPF (0 - 2) H Urine WBC 10-15 /HPF (0 - 2) H Urine Squamous Epithelial Cells Moderate /LPF (NONE/OCC) H Urine Bacteria Few /HPF (NONE) Urine Yeast Moderate /HPF (NONE) H White Blood Count 9.3 K/UL (4.8-10.8) Red Blood Count 2.57 M/UL (4.20-5.40) L Hemoglobin 7.8 G/DL (12.0-16.0) L Hematocrit 23.6 % (37.0-47.0) L Mean Corpuscular Volume 92 FL (80-99) Mean Corpuscular Hemoglobin 30.5 PG (27.0-31.0) Mean Corpuscular Hemoglobin Concent 33.3 G/DL (32.0-36.0) Red Cell Distribution Width 14.5 % (11.6-14.8) Platelet Count 206 K/UL (150-450) Mean Platelet Volume 8.7 FL (6.5-10.1) Neutrophils (%) (Auto) % (45.0-75.0) Lymphocytes (%) (Auto) % (20.0-45.0) Monocytes (%) (Auto) % (1.0-10.0) Eosinophils (%) (Auto) % (0.0-3.0) Basophils (%) (Auto) % (0.0-2.0) Neutrophils % (Manual) Pending Lymphocytes % (Manual) Pending Platelet Estimate Pending Platelet Morphology Pending Sodium Level 143 MMOL/L (136-145) Potassium Level 4.1 MMOL/L (3.5-5.1) Chloride Level 111 MMOL/L (98-107) H Carbon Dioxide Level 27 MMOL/L (21-32) Anion Gap 5 mmol/L (5-15) Blood Urea Nitrogen 34 mg/dL (7-18) H Creatinine 0.7 MG/DL (0.55-1.30) Estimat Glomerular Filtration Rate > 60 mL/min (>60) Glucose Level 100 MG/DL (74-106) Calcium Level 7.9 MG/DL (8.5-10.1) L Plan Problems: (1) Hypernatremia (2) Renal failure (3) Respiratory failure (4) Sepsis Assessment & Plan: COVID + leukocytosis anemia electrolytes abnormal on iv fluids renal input appreciated cxr noted abx as per ID will follow with recs Interim placement of orogastric tube, also documented on recent abdominal radiograph. Stable satisfactory position of endotracheal tube and right jugular central venous catheter. There is increased pleural fluid and likely left basilar consolidation/atelectasis. The right lung and pleural space remain clear. Impression: Increasing left pleural fluid and likely basilar consolidation/atelectasis. Interim orogastric intubation DAILY ESTIMATED NEEDS: Needs based on Pulmonary, DM, wounds 66.6kg 25-30 kcals/kg 2916-0229 total kcals 1.25-1.5 g protein/kg 83-100 g total protein 20-25 mL/kg 8760-5226 total fluid mLs NUTRITION DIAGNOSIS: Swallowing difficulty r/t dysphagia as evidenced by h/o CVA, pt is GT dep, currently ICU status, now intubated, off pressor support, GT feeds initiated. CURRENT TF:Glucerna 1.2 @45ml/hr ENTERAL NUTRITION RECOMMENDATIONS: As medically able: GLUCERNA 1.5 goal of 45ml/hr x24 hrs to provide 1080ml, 1620 kcal, 89g pro, 820ml free H2O -> as medically able without aspiration risk start Glucerna 1.5 @low rate 25ml/hr for 6 hrs. Advance as tolerated 10ml/hr q4-6 hrs to goal. - Flush per MD, HOB over 30 degrees. ---- If not hemodynamically stable, rec trophic feeds of 5-10ml/hr to maintain gut integrity. ADDITIONAL RECOMMENDATIONS: 1) Obtain an accurate calibrated bed scale wt 2) F/up w/ H&P 3) With active TF orders, add JASMYN BID for noted DTPI wounds 4) TF recs as above when off bipap and w/ hemodynamic stability -> Now intubated, off pressors, on GT feeds. he spleen size is normal. The gallbladder contains sludge. No stones. No wall thickening nor pericholecystic fluid. Common bile duct measures 4 mm in diameter. Small amount free fluid is seen adjacent to the liver and spleen Impression: Gallbladder sludge. Negative for dilated bile ducts Normal appearing liver and spleen (5) Elevated d-dimer (6) COVID-19 Assessment & Plan: ++ (7) Pressure ulcer Assessment & Plan: Pt presented on admission with multiple Pressure injuries.DTPI noted to R Buttocks (L)3.8cm x (W)3.4cm. Base of wound is purpuric,fluctuant with surrounding maroon and indurated borders. DTPI Upper L Buttocks(L)5.5cm x (W)4cm. Base of wound is maroon and indurated. Borders are irregular. Non-Blanchable erythema without induration/fluctuance L lower buttocks(L)4cm x (W)7cm. R and L heels are soft but blanchable. Erosion noted at peristomal GT site. Site is erythematous and excoriated. Small amt. sanguineous exudate. Tx.Plan: Apply Moisture Barrier Paste to Sacrum, R and L Buttocks. Cover each area with Optifoam drsg. Change every 3 days and prn. Apply Moisture Barrier Paste to R and L Ischial tuberosities with each incontinence care. Apply Cavilon Skin Barrier to both heels. Cover each heel and malleoli with Optifoam drsg. Change every 7 days and prn. Reposition at least every 2hours or as tolerated. Off-load heels with pillow. APM/DARIN Mattress overlay. Apply Zinc Oxide Paste TID to GT site. Leave open to Air. (8) Dementia (9) CVA (cerebral vascular accident) (10) T2DM (type 2 diabetes mellitus) (11) Gastrostomy present (12) COVID-19 (13) Rapid atrial fibrillation Paul Garcia May 26, 2020 10:44
--- NOTE | 2020-05-26 10:44 | Infectious Diseases Prog Note ---
Assessment/Plan 70 yo female with PMHx of Dementia, DM, CVA ( S/P PEG), COVID 19 infection and pressure ulcers. Septic Shock-combination cardiogenic and septic; SP Gram positive bacteremia- contaminant -05/14 Bcx 1/ S. haemolyticus; 05/17 Bcx Neg UTI UA (+); ucx 10-20k P. mirabilis (S Ceftriaxone, Cefepime) PNA, superimposed bacterial -05/24 SARS-COV2 pCR inconclusive -05/23 CXR: Worsening aeration with increasing hazy opacification of the left lung base which may related to increased layering pleural effusion and adjacent atelectasis/consolidation. -05/19 CXR: Increasing left pleural fluid and likely basilar c onsolidation/atelectasis. Interim orogastric intubation 05/16 CXR: Retrocardiac density may represent atelectasis versus infiltrate. CXR 05/14/20 showed Retrocardiac atelectasis/infiltrate with Pulmonary venous congestion. sp cx MDR E.coli (S Cefepime, Meropenem, Zosyn) Hx of COVID 19 - Bacteria secondary infection? Asp PNA? 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 Negative for dilated bile ducts. Normal appearing liver and spleen. Trace ascites Dementia DM Hx CVA ( S/P PEG) pressure ulcers PLAN - Meropenem #10 (abx d #/) -05/24 SP Decadron #11 -05/19 SP IV Vancomcyin #6 -05/17 SP Cefepime #4 - f/u Cultures - Monitor CBC and Temps -repeat cultures -COVID19 isolation; repeat rapid COVID PCR Thank you for consulting [facility]. Will continue to follow along with you. Discussed with RN. Subjective Allergies: Coded Allergies: DIVALPROEX SODIUM (Verified Allergy, Unknown, 05/14/20) PENICILLINS (Verified Allergy, Unknown, 05/14/20) afebrile leukocytosis resolved repeat covid inconclusive Fio2 55% Objective Last 24 Hour Vital Signs Date Time Temp Pulse Resp B/P (MAP) Pulse Ox O2 Delivery O2 Flow Rate FiO2 05/26/20 07:05 59 13 55 05/26/20 07:00 57 15 105/49 (67) 100 05/26/20 06:30 64 14 05/26/20 06:00 57 13 102/57 (72) 99 05/26/20 05:00 55 13 104/49 (67) 100 05/26/20 04:00 98.5 59 11 111/58 (75) 100 05/26/20 04:00 Mechanical Ventilator 05/26/20 03:02 56 15 55 05/26/20 03:01 64 05/26/20 03:00 65 19 114/56 (75) 97 05/26/20 02:00 61 19 99/40 (59) 98 05/26/20 01:00 64 17 116/58 (77) 100 05/26/20 00:03 55 97/56 05/26/20 00:00 97.9 52 12 97/56 (70) 100 05/26/20 00:00 Mechanical Ventilator 05/26/20 00:00 65 05/25/20 23:58 52 05/25/20 23:00 59 13 113/54 (73) 99 05/25/20 22:46 56 13 65 05/25/20 22:00 57 15 118/49 (72) 100 05/25/20 21:00 53 14 109/51 (70) 99 05/25/20 20:00 65 05/25/20 20:00 Mechanical Ventilator 05/25/20 20:00 98.5 60 16 125/63 (83) 99 05/25/20 19:32 54 05/25/20 19:05 58 18 65 05/25/20 19:00 61 17 120/51 (74) 99 05/25/20 18:00 63 15 131/67 (88) 100 05/25/20 17:17 108/43 05/25/20 17:00 58 14 108/43 (64) 99 05/25/20 16:00 65 05/25/20 16:00 98.9 61 15 123/53 (76) 99 05/25/20 16:00 57 05/25/20 16:00 Mechanical Ventilator 05/25/20 15:05 59 16 65 05/25/20 15:00 65 14 129/55 (79) 99 05/25/20 14:00 66 17 111/48 (69) 93 05/25/20 13:00 70 17 132/57 (82) 99 05/25/20 12:00 65 05/25/20 12:00 65 05/25/20 12:00 Mechanical Ventilator 05/25/20 12:00 98.4 66 19 115/55 (75) 98 05/25/20 11:00 65 17 101/50 (67) 97 05/25/20 10:53 68 20 65 Height (Feet): 5 Height (Inches): 4.00 Weight (Pounds): 149 GEN: On Vent HEENT: NCAT, MMM, Intubated Pulm: Equal rise and fall B/L ABD: Soft, ND, PEG Neuro: Not following, Intubated Microbiology Date/Time Source Procedure Growth Status 05/25/20 18:00 Nasopharynx Coronavirus COVID-19 PCR ([facility]) - Final Complete 05/25/20 13:30 Urine,Clean Catch Urine Culture - Preliminary NO GROWTH Resulted Laboratory Tests Test 05/25/20 13:30 05/26/20 04:00 Urine Color Pale yellow Urine Appearance Slightly cloudy Urine pH 5 (4.5-8.0) Urine Specific [place] 1.010 (1.005-1.035) Urine Protein 2+ (NEGATIVE) H Urine Glucose (UA) Negative (NEGATIVE) Urine Ketones Negative (NEGATIVE) Urine Blood 5+ (NEGATIVE) H Urine Nitrite Negative (NEGATIVE) Urine Bilirubin Negative (NEGATIVE) Urine Urobilinogen Normal MG/DL (0.0-1.0) Urine Leukocyte Esterase 2+ (NEGATIVE) H Urine RBC 40-60 /HPF (0 - 2) H Urine WBC 10-15 /HPF (0 - 2) H Urine Squamous Epithelial Cells Moderate /LPF (NONE/OCC) H Urine Bacteria Few /HPF (NONE) Urine Yeast Moderate /HPF (NONE) H White Blood Count 9.3 K/UL (4.8-10.8) Red Blood Count 2.57 M/UL (4.20-5.40) L Hemoglobin 7.8 G/DL (12.0-16.0) L Hematocrit 23.6 % (37.0-47.0) L Mean Corpuscular Volume 92 FL (80-99) Mean Corpuscular Hemoglobin 30.5 PG (27.0-31.0) Mean Corpuscular Hemoglobin Concent 33.3 G/DL (32.0-36.0) Red Cell Distribution Width 14.5 % (11.6-14.8) Platelet Count 206 K/UL (150-450) Mean Platelet Volume 8.7 FL (6.5-10.1) Neutrophils (%) (Auto) % (45.0-75.0) Lymphocytes (%) (Auto) % (20.0-45.0) Monocytes (%) (Auto) % (1.0-10.0) Eosinophils (%) (Auto) % (0.0-3.0) Basophils (%) (Auto) % (0.0-2.0) Neutrophils % (Manual) Pending Lymphocytes % (Manual) Pending Platelet Estimate Pending Platelet Morphology Pending Sodium Level 143 MMOL/L (136-145) Potassium Level 4.1 MMOL/L (3.5-5.1) Chloride Level 111 MMOL/L (98-107) H Carbon Dioxide Level 27 MMOL/L (21-32) Anion Gap 5 mmol/L (5-15) Blood Urea Nitrogen 34 mg/dL (7-18) H Creatinine 0.7 MG/DL (0.55-1.30) Estimat Glomerular Filtration Rate > 60 mL/min (>60) Glucose Level 100 MG/DL (74-106) Calcium Level 7.9 MG/DL (8.5-10.1) L Current Medications Medications (Trade) Dose Ordered Sig/Morgan Route PRN Reason Start Time Stop Time Status Last Admin Dose Admin Acetaminophen (Tylenol) 650 mg Q4H PRN GT Temp >100.5 05/16/20 06:15 06/15/20 06:14 05/21/20 20:01 Acetaminophen (Tylenol) 650 mg Q4H PRN RECTAL Temp >100.5 05/16/20 19:45 06/15/20 19:44 05/17/20 18:30 Chlorhexidine Gluconate (Lilliam-Hex 2%) 1 applic DAILY@1999 TOPIC 05/15/20 20:00 08/13/20 19:59 05/25/20 20:10 Dextrose (Dextrose 50%) 25 ml Q30M PRN IV Hypoglycemia 05/22/20 00:00 08/20/20 00:00 Dextrose (Dextrose 50%) 50 ml Q30M PRN IV Hypoglycemia 05/22/20 00:00 08/20/20 00:00 Insulin Aspart (NovoLOG) EVERY 6 HOURS SUBQ 05/22/20 06:00 08/20/20 05:59 05/24/20 11:11 Meropenem 1 gm/ Sodium Chloride 55 ml @ 110 mls/hr Q12HR@0200,1400 IVPB 05/25/20 14:00 05/27/20 14:30 05/26/20 02:12 Midodrine (Pro-Amatine) 10 mg TID ORAL 05/23/20 09:00 08/21/20 08:59 05/26/20 09:23 Norepinephrine Bitartrate 8 mg/ Dextrose 250 ml @ 0 mls/hr Q24H IV 05/20/20 18:00 06/19/20 17:59 05/22/20 05:45 Pantoprazole (Protonix) 40 mg DAILY IV 05/15/20 09:00 06/14/20 08:59 05/26/20 09:23 Phenylephrine HCl 100 mg/Dextrose 250 ml @ 0 mls/hr Q24H IV 05/15/20 00:15 06/14/20 00:14 05/15/20 13:28 Sodium Chloride 1,000 ml @ 75 mls/hr [id number] IV 05/15/20 06:45 06/14/20 06:44 05/26/20 09:23 Vasopressin 100 units/Sodium Chloride 100 ml @ 0 mls/hr Q24H IV 05/15/20 00:15 06/14/20 00:14 Zinc Oxide (Zinc Oxide) 1 applic TIDPRN PRN TOPIC Abdominal cramps 05/20/20 13:00 08/18/20 12:59 Yomaira Terry M.D. May 26, 2020 10:44
--- NOTE | 2020-05-26 10:55 | General Progress Note ---
Subjective Date patient seen: May 26, 2020 Time patient seen: 10:00 ROS Limited/Unobtainable: Yes Allergies: Coded Allergies: DIVALPROEX SODIUM (Verified Allergy, Unknown, 05/14/20) PENICILLINS (Verified Allergy, Unknown, 05/14/20) All Systems: reviewed and negative except above Subjective Non verbal, intubated Objective Last 24 Hour Vital Signs Date Time Temp Pulse Resp B/P (MAP) Pulse Ox O2 Delivery O2 Flow Rate FiO2 05/26/20 07:05 59 13 55 05/26/20 07:00 57 15 105/49 (67) 100 05/26/20 06:30 64 14 05/26/20 06:00 57 13 102/57 (72) 99 05/26/20 05:00 55 13 104/49 (67) 100 05/26/20 04:00 98.5 59 11 111/58 (75) 100 05/26/20 04:00 Mechanical Ventilator 05/26/20 03:02 56 15 55 05/26/20 03:01 64 05/26/20 03:00 65 19 114/56 (75) 97 05/26/20 02:00 61 19 99/40 (59) 98 05/26/20 01:00 64 17 116/58 (77) 100 05/26/20 00:03 55 97/56 05/26/20 00:00 97.9 52 12 97/56 (70) 100 05/26/20 00:00 Mechanical Ventilator 05/26/20 00:00 65 05/25/20 23:58 52 05/25/20 23:00 59 13 113/54 (73) 99 05/25/20 22:46 56 13 65 05/25/20 22:00 57 15 118/49 (72) 100 05/25/20 21:00 53 14 109/51 (70) 99 05/25/20 20:00 65 05/25/20 20:00 Mechanical Ventilator 05/25/20 20:00 98.5 60 16 125/63 (83) 99 05/25/20 19:32 54 05/25/20 19:05 58 18 65 05/25/20 19:00 61 17 120/51 (74) 99 05/25/20 18:00 63 15 131/67 (88) 100 05/25/20 17:17 108/43 05/25/20 17:00 58 14 108/43 (64) 99 05/25/20 16:00 65 05/25/20 16:00 98.9 61 15 123/53 (76) 99 05/25/20 16:00 57 05/25/20 16:00 Mechanical Ventilator 05/25/20 15:05 59 16 65 05/25/20 15:00 65 14 129/55 (79) 99 05/25/20 14:00 66 17 111/48 (69) 93 05/25/20 13:00 70 17 132/57 (82) 99 05/25/20 12:00 65 05/25/20 12:00 65 05/25/20 12:00 Mechanical Ventilator 05/25/20 12:00 98.4 66 19 115/55 (75) 98 05/25/20 11:00 65 17 101/50 (67) 97 05/25/20 10:53 68 20 65 Intake and Output 05/25/20 05/26/20 19:00 07:00 Intake Total 1735 ml 1975 ml Output Total 940 ml 850 ml Balance 795 ml 1125 ml Free Water 60 ml 300 ml IV Total 955 ml 955 ml Tube Feeding 720 ml 720 ml Output Urine Total 940 ml 850 ml # Bowel Movements 3 2 Laboratory Tests 05/25/20 13:30: Urine Color Pale yellow, Urine Appearance Slightly cloudy, Urine pH 5, Urine Specific [place] 1.010, Urine Protein 2+H, Urine Glucose (UA) Negative, Urine Ketones Negative, Urine Blood 5+H, Urine Nitrite Negative, Urine Bilirubin Negative, Urine Urobilinogen Normal, Urine Leukocyte Esterase 2+H, Urine RBC 40- 60H, Urine WBC 10-15H, Urine Squamous Epithelial Cells ModerateH, Urine Bacteria Few, Urine Yeast ModerateH 05/26/20 04:00: White Blood Count 9.3, Red Blood Count 2.57L, Hemoglobin 7.8L, Hematocrit 23.6L, Mean Corpuscular Volume 92, Mean Corpuscular Hemoglobin 30.5, Mean Corpuscular Hemoglobin Concent 33.3, Red Cell Distribution Width 14.5, Platelet Count 206, Mean Platelet Volume 8.7, Neutrophils (%) (Auto) , Lymphocytes (%) (Auto) , Monocytes (%) (Auto) , Eosinophils (%) (Auto) , Basophils (%) (Auto) , Neutrophils % (Manual) [Pending], Lymphocytes % (Manual) [Pending], Platelet Estimate [Pending], Platelet Morphology [Pending], Sodium Level 143, Potassium Level 4.1, Chloride Level 111H, Carbon Dioxide Level 27, Anion Gap 5, Blood Urea Nitrogen 34H, Creatinine 0.7, Estimat Glomerular Filtration Rate > 60, Glucose Level 100, Calcium Level 7.9L Height (Feet): 5 Height (Inches): 4.00 Weight (Pounds): 149 General Appearance: moderate distress EENT: PERRL/EOMI Cardiovascular: normal rate Respiratory/Chest: decreased breath sounds Neurologic: mental measurements teacher II-XII grossly normal Assessment/Plan Status: stable Assessment/Plan: 70-year-old female history of dementia, cachexia, dysphasia G-tube dependent feeding presents for evaluation of rapid heart rate and hypotension. # Septic with element of cardiogenic shock Etiology COVID 19 vs UTI vs bacteremia / contaminant and NSTEMI Bcx POSITIVE WITH G+ Cocci and U cx 05/14 Proteus Mirabillis Continue Meropenem DAY 06/22 Vancomycin stopped stopped Cefepime Dexamethasone due to hypoxia on day 10 now stopped. Leukocytosis improved. # Acute respiratory failure Intubated and not ready to wean off ICU care appreciated Dr. Enriquez consulted Ventilator management per ICU-pulmonary FiO2 65 % today. T piece. Await final recommendations regarding need for possible tracheostomy as she is not tolerating wean off. # SVT vs A. Flutter s/p DC x 3 # NSTEMI HR is controlled in the 100 range and tolerating Digoxin Vasopressors in place Levophed at [address] Morillo requested and TTE requested and poor window. Will need repeat TTE when able to safely complete. Limited due to covid positive Troponin 3.4 now 0.7 EKG 05/17 NSR # AG metabolic acidosis Ddx lactic acidosis Improved. # Hyperglycemia r/o DKA ABG and Ketones negative Endocrine consult with Dr. Shelley IV insulin gtt stopped and in SQ insulin coverage now # Hypernatremia Improving Monitor BMP IVF to 1/2 NS lower rate 75 cc hr continue # COVID 19 Positive on admission. Original infection > 15 days ago, do not qualify for Revdisimir or plasma On Dexamethasone completed 10 day course Contact and droplet isolation # Dysphagia PEG REMOVED 05/16 Carlo Vargas consulted and appreciate follow up and final plan for PEG replacement PENDING. PEG site with dressing in place and OFF PEG for now. NGT placed and Tube feeds started 05/18 and being tolerated at 45 cc hr Glucerna 1.2 # Severe protein caloric malnutrition with Albumin 1.5 RD follow up # Thrombocytopenia Platelets down from 80 K to 64 K to 66 K ( OFF Heparin ) and improved to normal range. 05/17 dc heparin, use SCD, order US Liver, HIT Ab, HIV negative US legs to r.o dvt per [facility] # Hypokalemia Improved # Dementia Baseline # FULL CODE SW follow up to reach out to DPOA and consider change in code status due to high morbidity and risk of inpatient mortality. Paperwork completed for superior court of the [facility] for request of tracheostomy and gastrostomy placement due to medical need. Bioethic consult requested. > 50 min spent in coordination of care and consultation with physicians and RN. Jessica Wade MD May 26, 2020 10:55
--- NOTE | 2020-05-26 10:59 | Pulmonology Progress Note ---
Subjective ROS Limited/Unobtainable: Yes Interval Events: Unable to extubtae due to poor mental status Constitutional: Reports: no symptoms HEENT: Repors: no symptoms Respiratory: Reports: no symptoms Cardiovascular: Reports: no symptoms Gastrointestinal/Abdominal: Reports: no symptoms Genitourinary: Reports: no symptoms Allergies: Coded Allergies: DIVALPROEX SODIUM (Verified Allergy, Unknown, 05/14/20) PENICILLINS (Verified Allergy, Unknown, 05/14/20) All Systems: reviewed and negative except above Objective Last 24 Hour Vital Signs Date Time Temp Pulse Resp B/P (MAP) Pulse Ox O2 Delivery O2 Flow Rate FiO2 05/26/20 07:05 59 13 55 05/26/20 07:00 57 15 105/49 (67) 100 05/26/20 06:30 64 14 05/26/20 06:00 57 13 102/57 (72) 99 05/26/20 05:00 55 13 104/49 (67) 100 05/26/20 04:00 98.5 59 11 111/58 (75) 100 05/26/20 04:00 Mechanical Ventilator 05/26/20 03:02 56 15 55 05/26/20 03:01 64 05/26/20 03:00 65 19 114/56 (75) 97 05/26/20 02:00 61 19 99/40 (59) 98 05/26/20 01:00 64 17 116/58 (77) 100 05/26/20 00:03 55 97/56 05/26/20 00:00 97.9 52 12 97/56 (70) 100 05/26/20 00:00 Mechanical Ventilator 05/26/20 00:00 65 05/25/20 23:58 52 05/25/20 23:00 59 13 113/54 (73) 99 05/25/20 22:46 56 13 65 05/25/20 22:00 57 15 118/49 (72) 100 05/25/20 21:00 53 14 109/51 (70) 99 05/25/20 20:00 65 05/25/20 20:00 Mechanical Ventilator 05/25/20 20:00 98.5 60 16 125/63 (83) 99 05/25/20 19:32 54 05/25/20 19:05 58 18 65 05/25/20 19:00 61 17 120/51 (74) 99 05/25/20 18:00 63 15 131/67 (88) 100 05/25/20 17:17 108/43 05/25/20 17:00 58 14 108/43 (64) 99 05/25/20 16:00 65 05/25/20 16:00 98.9 61 15 123/53 (76) 99 05/25/20 16:00 57 05/25/20 16:00 Mechanical Ventilator 05/25/20 15:05 59 16 65 05/25/20 15:00 65 14 129/55 (79) 99 05/25/20 14:00 66 17 111/48 (69) 93 05/25/20 13:00 70 17 132/57 (82) 99 05/25/20 12:00 65 05/25/20 12:00 65 05/25/20 12:00 Mechanical Ventilator 05/25/20 12:00 98.4 66 19 115/55 (75) 98 05/25/20 11:00 65 17 101/50 (67) 97 Intake and Output 05/25/20 05/26/20 19:00 07:00 Intake Total 1735 ml 1975 ml Output Total 940 ml 850 ml Balance 795 ml 1125 ml Free Water 60 ml 300 ml IV Total 955 ml 955 ml Tube Feeding 720 ml 720 ml Output Urine Total 940 ml 850 ml # Bowel Movements 3 2 General Appearance: no acute distress HEENT: normocephalic Respiratory: chest wall non-tender, lungs clear Cardiovascular: normal peripheral pulses, normal rate Abdomen: normal bowel sounds Microbiology Date/Time Source Procedure Growth Status 05/25/20 18:00 Nasopharynx Coronavirus COVID-19 PCR ([facility]) - Final Complete 05/25/20 13:30 Urine,Clean Catch Urine Culture - Preliminary NO GROWTH Resulted Laboratory Tests 05/25/20 13:30: Urine Color Pale yellow, Urine Appearance Slightly cloudy, Urine pH 5, Urine Specific [place] 1.010, Urine Protein 2+H, Urine Glucose (UA) Negative, Urine Ketones Negative, Urine Blood 5+H, Urine Nitrite Negative, Urine Bilirubin Negative, Urine Urobilinogen Normal, Urine Leukocyte Esterase 2+H, Urine RBC 40- 60H, Urine WBC 10-15H, Urine Squamous Epithelial Cells ModerateH, Urine Bacteria Few, Urine Yeast ModerateH 05/26/20 04:00: White Blood Count 9.3, Red Blood Count 2.57L, Hemoglobin 7.8L, Hematocrit 23.6L, Mean Corpuscular Volume 92, Mean Corpuscular Hemoglobin 30.5, Mean Corpuscular Hemoglobin Concent 33.3, Red Cell Distribution Width 14.5, Platelet Count 206, Mean Platelet Volume 8.7, Neutrophils (%) (Auto) , Lymphocytes (%) (Auto) , Monocytes (%) (Auto) , Eosinophils (%) (Auto) , Basophils (%) (Auto) , Neutrophils % (Manual) [Pending], Lymphocytes % (Manual) [Pending], Platelet Estimate [Pending], Platelet Morphology [Pending], Sodium Level 143, Potassium Level 4.1, Chloride Level 111H, Carbon Dioxide Level 27, Anion Gap 5, Blood Urea Nitrogen 34H, Creatinine 0.7, Estimat Glomerular Filtration Rate > 60, Glucose Level 100, Calcium Level 7.9L 05/26/20 10:00: White Blood Count [Pending], Red Blood Count [Pending], Hemoglobin [Pending], Hematocrit [Pending], Mean Corpuscular Volume [Pending], Mean Corpuscular Hemoglobin [Pending], Mean Corpuscular Hemoglobin Concent [Pending], Red Cell Distribution Width [Pending], Platelet Count [Pending], Mean Platelet Volume [Pending], Neutrophils (%) (Auto) [Pending], Lymphocytes (%) (Auto) [Pending], Monocytes (%) (Auto) [Pending], Eosinophils (%) (Auto) [Pending], Basophils (%) (Auto) [Pending] Current Medications Medications (Trade) Dose Ordered Sig/Morgan Route PRN Reason Start Time Stop Time Status Last Admin Dose Admin Acetaminophen (Tylenol) 650 mg Q4H PRN GT Temp >100.5 05/16/20 06:15 06/15/20 06:14 05/21/20 20:01 Acetaminophen (Tylenol) 650 mg Q4H PRN RECTAL Temp >100.5 05/16/20 19:45 06/15/20 19:44 05/17/20 18:30 Chlorhexidine Gluconate (Lilliam-Hex 2%) 1 applic DAILY@2000 TOPIC 05/15/20 20:00 08/13/20 19:59 05/25/20 20:10 Dextrose (Dextrose 50%) 25 ml Q30M PRN IV Hypoglycemia 05/22/20 00:00 08/20/20 00:00 Dextrose (Dextrose 50%) 50 ml Q30M PRN IV Hypoglycemia 05/22/20 00:00 08/20/20 00:00 Insulin Aspart (NovoLOG) EVERY 6 HOURS SUBQ 05/22/20 06:00 08/20/20 05:59 05/24/20 11:11 Meropenem 1 gm/ Sodium Chloride 55 ml @ 110 mls/hr Q12HR@0200,1400 IVPB 05/25/20 14:00 05/27/20 14:30 05/26/20 02:12 Midodrine (Pro-Amatine) 10 mg TID ORAL 05/23/20 09:00 08/21/20 08:59 05/26/20 09:23 Norepinephrine Bitartrate 8 mg/ Dextrose 250 ml @ 0 mls/hr Q24H IV 05/20/20 18:00 06/19/20 17:59 05/22/20 05:45 Pantoprazole (Protonix) 40 mg DAILY IV 05/15/20 09:00 06/14/20 08:59 05/26/20 09:23 Phenylephrine HCl 100 mg/Dextrose 250 ml @ 0 mls/hr Q24H IV 05/15/20 00:15 06/14/20 00:14 05/15/20 13:28 Sodium Chloride 1,000 ml @ 75 mls/hr [id number] IV 05/15/20 06:45 06/14/20 06:44 05/26/20 09:23 Vasopressin 100 units/Sodium Chloride 100 ml @ 0 mls/hr Q24H IV 05/15/20 00:15 06/14/20 00:14 Zinc Oxide (Zinc Oxide) 1 applic TIDPRN PRN TOPIC Abdominal cramps 05/20/20 13:00 08/18/20 12:59 Assessment/Plan Assessment/Plan IMPRESSION: 1. Acute respiratory failure. 2. Diabetes mellitus with hyperglycemia. 3. Septic shock. 4. Chronic G-tube. 5. Decubitus. 6. History of CHF. DISCUSSION: Continue fluids and antibiotics. Pressors prn Now on T piece On 40% FiO2 DVT and GI prophylaxis. Respiratory precautions due to COVID-[address] Wade. I will follow carefully. Decadron continuing Mental status better however unsafe to extubate Will not be able to maintain airway Recommend rupesh Rivera new PEG Richard James Omar Syed MD May 26, 2020 10:58
[2020-05-26 11:02] LABS: HEMATOCRIT 22.5 % (37.0-47.0); HEMOGLOBIN 7.6 G/DL (12.0-16.0); MEAN CORPUSCULAR VOLUME 91 FL (80-99); PLATELET COUNT 194 K/UL (150-450); RED BLOOD COUNT 2.48 M/UL (4.20-5.40); RED CELL DISTRIBUTION WIDTH 14.3 % (11.6-14.8); WHITE BLOOD COUNT 9.3 K/UL (4.8-10.8)
--- NOTE | 2020-05-26 12:00 | NUR ---
NURSE NOTES: Hgb result was reported to Dr. Wade. Order was received to transfuse 1 unit of PRBC. Order was processed. Awaiting for blood supply. Pt remains with stable VS, and afebrile.
[2020-05-26] MEDS ORDERED: 1/2 NS 1000ml IV ONE (14:00)
[2020-05-26] MEDS ORDERED: NS 275ml ONE (14:00)
--- NOTE | 2020-05-26 14:00 | NUR ---
NURSE NOTES: Rapid COVID swab was taken and sent to lab per Dr. Terry's order. Result was called in to nurse's station as negative. Dr. Terry is at the nurse's station and was informed regarding results.
--- NOTE | 2020-05-26 14:00 | Diagnostic Imaging Report ---
Procedure: XRAY Chest 1v Reason for study: Reason For Exam: COUGH Comparison films: 05/23/2020. FINDINGS: There is now complete opacification of the left hemithorax with mediastinal shift to the left. This is likely due to complete atelectasis of the left lung perhaps from mucous plugging. Endotracheal tube, NG tube and right central venous catheter remain in place. Right lung is unchanged with mild hazy densities right lung base. Cardiac silhouette obscured. The bony thorax appear unremarkable. IMPRESSION: Complete opacification of the left hemithorax with mediastinal shift to the left likely due to complete atelectasis of the left lung perhaps from mucous plugging.
--- NOTE | 2020-05-26 14:29 | Cardiology Progress Note ---
Assessment/Plan Status: stable Assessment/Plan Assessment/Plan Assessment/Plan 1. Qkl-TT-pauxvaced myocardial infarction. Her troponin was 1.258,1.2,1.9, 3.4 and the down to 0.7 EKG does not show any acute ST-T wave abnormality and certainly no ST elevation. Due to septic shock, DCCV and Renal failure. The echocardiogram had poor windows. 2. PAF with RVR. S/P DCCV 3 times No more fib or accelerated junctional rhythm. Can not use beta-ramakrishna or calcium-channel ramakrishna as the patient is still on Levophed. Dig level is 1.6 Patient has converted to NSR 3. S/P Septic shock. Off Levophed, on Midodrine and antibiotic 4. Severe hypernatremia with sodium of 174, BUN of 131, creatinine 2.7 due to dehydration. Sodium is 155 with BUN of 91 and creatinine of 1.9 with IV fluids. 5. Lactic acidosis on antibiotic. 6. Dysphagia, status post PEG placement. GT has trice removed on 05/18 still some drainage from the GT site NGTF GT replacement when more stable per Dr Matos 7. History of CVA and dementia. 8. Respiratory failure, on T piece today Subjective Cardiovascular: Reports: no symptoms Respiratory: Reports: no symptoms Gastrointestinal/Abdominal: Reports: no symptoms Genitourinary: Reports: no symptoms Subjective C[employer]AGE FOR [employer] Converted to normal sinus Objective Last 24 Hour Vital Signs Date Time Temp Pulse Resp B/P (MAP) Pulse Ox O2 Delivery O2 Flow Rate FiO2 05/26/20 14:00 51 15 124/54 (77) 100 05/26/20 13:00 98.4 57 13 122/52 (75) 100 05/26/20 12:00 45 05/26/20 12:00 59 14 105/49 (67) 100 05/26/20 12:00 Mechanical Ventilator 05/26/20 12:00 60 05/26/20 11:06 55 14 55 05/26/20 11:00 55 17 108/48 (68) 100 05/26/20 10:00 61 14 111/54 (73) 100 05/26/20 09:00 62 15 103/50 (67) 100 05/26/20 08:00 Mechanical Ventilator 05/26/20 08:00 55 05/26/20 08:00 98.2 60 16 101/49 (66) 99 05/26/20 08:00 54 05/26/20 07:05 59 13 55 05/26/20 07:00 57 15 105/49 (67) 100 05/26/20 06:30 64 14 05/26/20 06:00 57 13 102/57 (72) 99 05/26/20 05:00 55 13 104/49 (67) 100 05/26/20 04:00 98.5 59 11 111/58 (75) 100 05/26/20 04:00 Mechanical Ventilator 05/26/20 03:02 56 15 55 05/26/20 03:01 64 05/26/20 03:00 65 19 114/56 (75) 97 05/26/20 02:00 61 19 99/40 (59) 98 05/26/20 01:00 64 17 116/58 (77) 100 05/26/20 00:03 55 97/56 05/26/20 00:00 97.9 52 12 97/56 (70) 100 05/26/20 00:00 Mechanical Ventilator 05/26/20 00:00 65 05/25/20 23:58 52 05/25/20 23:00 59 13 113/54 (73) 99 05/25/20 22:46 56 13 65 05/25/20 22:00 57 15 118/49 (72) 100 05/25/20 21:00 53 14 109/51 (70) 99 05/25/20 20:00 65 05/25/20 20:00 Mechanical Ventilator 05/25/20 20:00 98.5 60 16 125/63 (83) 99 05/25/20 19:32 54 05/25/20 19:05 58 18 65 05/25/20 19:00 61 17 120/51 (74) 99 05/25/20 18:00 63 15 131/67 (88) 100 05/25/20 17:17 108/43 05/25/20 17:00 58 14 108/43 (64) 99 05/25/20 16:00 65 05/25/20 16:00 98.9 61 15 123/53 (76) 99 05/25/20 16:00 57 05/25/20 16:00 Mechanical Ventilator 05/25/20 15:05 59 16 65 05/25/20 15:00 65 14 129/55 (79) 99 General Appearance: no apparent distress, on vent EENT: PERRL/EOMI, normal ENT inspection Neck: non-tender, supple, normal inspection Rhythm: NSR Cardiovascular: normal peripheral pulses, normal rate, regular rhythm Respiratory/Chest: chest wall non-tender, lungs clear Abdomen: normal bowel sounds, non tender, soft, no mass Extremities: normal range of motion, non-tender, normal inspection Neurologic: cant gang sawyer II-XII grossly normal, no motor/sensory deficits Intake and Output 05/25/20 05/26/20 19:00 07:00 Intake Total 1735 ml 1975 ml Output Total 940 ml 850 ml Balance 795 ml 1125 ml Free Water 60 ml 300 ml IV Total 955 ml 955 ml Tube Feeding 720 ml 720 ml Output Urine Total 940 ml 850 ml # Bowel Movements 3 2 Laboratory Tests Test 05/26/20 04:00 05/26/20 10:00 White Blood Count 9.3 K/UL (4.8-10.8) 9.3 K/UL (4.8-10.8) Red Blood Count 2.57 M/UL (4.20-5.40) L 2.48 M/UL (4.20-5.40) L Hemoglobin 7.8 G/DL (12.0-16.0) L 7.6 G/DL (12.0-16.0) L Hematocrit 23.6 % (37.0-47.0) L 22.5 % (37.0-47.0) L Mean Corpuscular Volume 92 FL (80-99) 91 FL (80-99) Mean Corpuscular Hemoglobin 30.5 PG (27.0-31.0) 30.6 PG (27.0-31.0) Mean Corpuscular Hemoglobin Concent 33.3 G/DL (32.0-36.0) 33.8 G/DL (32.0-36.0) Red Cell Distribution Width 14.5 % (11.6-14.8) 14.3 % (11.6-14.8) Platelet Count 206 K/UL (150-450) 194 K/UL (150-450) Mean Platelet Volume 8.7 FL (6.5-10.1) 8.9 FL (6.5-10.1) Neutrophils (%) (Auto) % (45.0-75.0) % (45.0-75.0) Lymphocytes (%) (Auto) % (20.0-45.0) % (20.0-45.0) Monocytes (%) (Auto) % (1.0-10.0) % (1.0-10.0) Eosinophils (%) (Auto) % (0.0-3.0) % (0.0-3.0) Basophils (%) (Auto) % (0.0-2.0) % (0.0-2.0) Differential Total Cells Counted 100 100 Neutrophils % (Manual) 92 % (45-75) H 93 % (45-75) H Lymphocytes % (Manual) 4 % (20-45) L 5 % (20-45) L Monocytes % (Manual) 2 % (1-10) 2 % (1-10) Eosinophils % (Manual) 2 % (0-3) 0 % (0-3) Basophils % (Manual) 0 % (0-2) 0 % (0-2) Band Neutrophils 0 % (0-8) 0 % (0-8) Platelet Estimate Adequate Adequate Platelet Morphology Normal Normal Hypochromasia 3+ 3+ Anisocytosis 1+ 1+ Sodium Level 143 MMOL/L (136-145) Potassium Level 4.1 MMOL/L (3.5-5.1) Chloride Level 111 MMOL/L (98-107) H Carbon Dioxide Level 27 MMOL/L (21-32) Anion Gap 5 mmol/L (5-15) Blood Urea Nitrogen 34 mg/dL (7-18) H Creatinine 0.7 MG/DL (0.55-1.30) Estimat Glomerular Filtration Rate > 60 mL/min (>60) Glucose Level 100 MG/DL (74-106) Calcium Level 7.9 MG/DL (8.5-10.1) L Spherocytes 1+ Microbiology Date/Time Source Procedure Growth Status 05/26/20 12:15 Nasopharynx SARS-CoV-2 RdRp Gene Assay - Final Complete 05/25/20 18:00 Nasopharynx Coronavirus COVID-19 PCR ([facility]) - Final Complete 05/25/20 13:30 Urine,Clean Catch Urine Culture - Preliminary NO GROWTH Resulted Erasto Peterson MD May 26, 2020 14:29
--- NOTE | 2020-05-26 14:40 | General Progress Note ---
Subjective ROS Limited/Unobtainable: No Allergies: Coded Allergies: DIVALPROEX SODIUM (Verified Allergy, Unknown, 05/14/20) PENICILLINS (Verified Allergy, Unknown, 05/14/20) Objective Last 24 Hour Vital Signs Date Time Temp Pulse Resp B/P (MAP) Pulse Ox O2 Delivery O2 Flow Rate FiO2 05/26/20 14:00 51 15 124/54 (77) 100 05/26/20 13:00 98.4 57 13 122/52 (75) 100 05/26/20 12:00 45 05/26/20 12:00 59 14 105/49 (67) 100 05/26/20 12:00 Mechanical Ventilator 05/26/20 12:00 60 05/26/20 11:06 55 14 55 05/26/20 11:00 55 17 108/48 (68) 100 05/26/20 10:00 61 14 111/54 (73) 100 05/26/20 09:00 62 15 103/50 (67) 100 05/26/20 08:00 Mechanical Ventilator 05/26/20 08:00 55 05/26/20 08:00 98.2 60 16 101/49 (66) 99 05/26/20 08:00 54 05/26/20 07:05 59 13 55 05/26/20 07:00 57 15 105/49 (67) 100 05/26/20 06:30 64 14 05/26/20 06:00 57 13 102/57 (72) 99 05/26/20 05:00 55 13 104/49 (67) 100 05/26/20 04:00 98.5 59 11 111/58 (75) 100 05/26/20 04:00 Mechanical Ventilator 05/26/20 03:02 56 15 55 05/26/20 03:01 64 05/26/20 03:00 65 19 114/56 (75) 97 05/26/20 02:00 61 19 99/40 (59) 98 05/26/20 01:00 64 17 116/58 (77) 100 05/26/20 00:03 55 97/56 05/26/20 00:00 97.9 52 12 97/56 (70) 100 05/26/20 00:00 Mechanical Ventilator 05/26/20 00:00 65 05/25/20 23:58 52 05/25/20 23:00 59 13 113/54 (73) 99 05/25/20 22:46 56 13 65 05/25/20 22:00 57 15 118/49 (72) 100 05/25/20 21:00 53 14 109/51 (70) 99 05/25/20 20:00 65 05/25/20 20:00 Mechanical Ventilator 05/25/20 20:00 98.5 60 16 125/63 (83) 99 05/25/20 19:32 54 05/25/20 19:05 58 18 65 05/25/20 19:00 61 17 120/51 (74) 99 05/25/20 18:00 63 15 131/67 (88) 100 05/25/20 17:17 108/43 05/25/20 17:00 58 14 108/43 (64) 99 05/25/20 16:00 65 05/25/20 16:00 98.9 61 15 123/53 (76) 99 05/25/20 16:00 57 05/25/20 16:00 Mechanical Ventilator 05/25/20 15:05 59 16 65 05/25/20 15:00 65 14 129/55 (79) 99 Intake and Output 05/25/20 05/26/20 19:00 07:00 Intake Total 1735 ml 1975 ml Output Total 940 ml 850 ml Balance 795 ml 1125 ml Free Water 60 ml 300 ml IV Total 955 ml 955 ml Tube Feeding 720 ml 720 ml Output Urine Total 940 ml 850 ml # Bowel Movements 3 2 Laboratory Tests 05/26/20 04:00: White Blood Count 9.3, Red Blood Count 2.57L, Hemoglobin 7.8L, Hematocrit 23.6L, Mean Corpuscular Volume 92, Mean Corpuscular Hemoglobin 30.5, Mean Corpuscular Hemoglobin Concent 33.3, Red Cell Distribution Width 14.5, Platelet Count 206, Mean Platelet Volume 8.7, Neutrophils (%) (Auto) , Lymphocytes (%) (Auto) , Monocytes (%) (Auto) , Eosinophils (%) (Auto) , Basophils (%) (Auto) , Differen tial Total Cells Counted 100, Neutrophils % (Manual) 92H, Lymphocytes % (Manual) 4L, Monocytes % (Manual) 2, Eosinophils % (Manual) 2, Basophils % (Manual) 0, Band Neutrophils 0, Platelet Estimate Adequate, Platelet Morphology Normal, Hypochromasia 3+, Anisocytosis 1+, Sodium Level 143, Potassium Level 4.1, Chloride Level 111H, Carbon Dioxide Level 27, Anion Gap 5, Blood Urea Nitrogen 34H, Creatinine 0.7, Estimat Glomerular Filtration Rate > 60, Glucose Level 100, Calcium Level 7.9L 05/26/20 10:00: White Blood Count 9.3, Red Blood Count 2.48L, Hemoglobin 7.6L, Hematocrit 22.5L, Mean Corpuscular Volume 91, Mean Corpuscular Hemoglobin 30.6, Mean Corpuscular Hemoglobin Concent 33.8, Red Cell Distribution Width 14.3, Platelet Count 194, Mean Platelet Volume 8.9, Neutrophils (%) (Auto) , Lymphocytes (%) (Auto) , Monocytes (%) (Auto) , Eosinophils (%) (Auto) , Basophils (%) (Auto) , Differential Total Cells Counted 100, Neutrophils % (Manual) 93H, Lymphocytes % (Manual) 5L, Monocytes % (Manual) 2, Eosinophils % (Manual) 0, Basophils % (Manual) 0, Band Neutrophils 0, Platelet Estimate Adequate, Platelet Morphology Normal, Hypochromasia 3+, Anisocytosis 1+, Spherocytes 1+ Height (Feet): 5 Height (Inches): 4.00 Weight (Pounds): 149 General Appearance: no apparent distress EENT: normal ENT inspection Neck: supple Cardiovascular: normal rate Respiratory/Chest: decreased breath sounds Abdomen: normal bowel sounds, non tender, soft Extremities: non-tender Assessment/Plan Status: stable Assessment/Plan: 1. History of CVA. 2. Dementia. 3. Dysphagia with G-tube. 4. Cachexia. 5. Diabetes. 6. Pressure ulcers. 7. Hypothyroidism. 8. Legal blindness. 9. Currently COVID positive. GT has trice removed NGTF GT replacement when more stable icu care fu labs Jhon Matos MD May 26, 2020 14:40
--- NOTE | 2020-05-26 16:36 | NUR ---
PLASTER MACHINE OPERATOR NOTE MARIELLA e-mailed the form completed by Dr. Wade to Deputy [email or web address] [email or web address] throughs secure e-mail system. Naveed requested the form to be typed. MARIELLA will continue to F/U. Addendum: 05/26/20 at 1706 by JUAN WOLFF MARIELLA informed of bioethics consult to Dr. Valverde. Dr. Valverde will review the case on the next day.
--- NOTE | 2020-05-26 18:00 | NUR ---
NURSE NOTES: Contacted blood bank to inquire regarding 1unit of PRBC blood supply for transfusion, and was informed, 2nd blood draw is needed for type&cross to verify prior to transfusion. Blood sample was draws and sent to the lab. Awaiting for blood supply. Pt had BM x2, large/soft/formed/brown. Pt was cleaned, wound dressings were changed. Gown/bed linens were changed. Pt was repositioned with bilateral extremities elevated on pillows. VS remain stable.
--- NOTE | 2020-05-26 19:10 | NUR ---
NURSE HAND-OFF REPORT: Latest Vital Signs: ETT 7.5 at 23cm lipline with vent settings SIMV-8, PS8, VT500, Peep 5, FIO2 55% at O2Sat 100%. SB to NSR on pvc monitor, HR fluctuating from 50-60 bpm. IV fluid 0.45%NS is infusing at 75ml/hour. Glucerna 1.2 is infusing at goal rate of 60ml/hour with zero residual. EKG Rhythm: Sinus Bradycardia Rhythm change?: N Notified?: Marcella Peterson (covering for [facility]) Response: No New Orders Received Latest Garza Fall Score: 50 Fall Risk: High Risk Safety Measures: Call light Within Reach, Bed Alarm Zone 1, Side Rails Side Rails x2, Bed position Low and Locked. Fall Precautions: Door Sign Report given to Yolie RUIZ. Endorsed plan of care.
--- NOTE | 2020-05-26 19:15 | NUR ---
NURSE NOTES: Received patient from [facility]. Will continue plan of care.
[2020-05-26] MEDS: Dyna-Hex 2% Top Sol 2oz TOPIC SCH (20:00)
--- NOTE | 2020-05-26 20:00 | NUR ---
NURSE NOTES: Patient is awake; eyes wide opened but does track- looks comfortable. Intubated; ETT 7.5 @ 23cm to the right lipline to vent with settings of SIMV 8, PS:8 TV:500, PEEP:5, FiO2:45%, O2sat:98%. Right nare NGT in place and running Glucerna 1.2 @ 60ml/hr. Arauz intact and draining. GT site is leaking, covered with optifoam and waiting to be healed for new GT placement. Right IJ running 1/2 NS @ 75ml/hr. Safety measures in place; bed low, locked and alarm is on. Afebrile: 98.5F axillary. Will continue plan of care.
--- NOTE | 2020-05-26 22:00 | NUR ---
NURSE NOTES: 1 unit PRBC transfusing. Vital signs stable. Patient awakens to stimuli. Turned and repositioned.
[2020-05-27] VITALS (24 sets, daily range): BP systolic 113–146; BP diastolic 55–81
--- NOTE | 2020-05-27 | NUR ---
NURSE NOTES: BP:131/67m HR:53, O2sat:99% PRBC continues to transfuse. No adverse reactions noted.
--- NOTE | 2020-05-27 02:00 | NUR ---
NURSE NOTES: Bed bath given, linens changed, turn/repositioned, oral care and suctioning done. Patient is comfortable.
[2020-05-27] MEDS: Meropenem 1 GM in NS 55 ML IVPB SCH ×2 (02:15→12:57)
--- NOTE | 2020-05-27 04:00 | NUR ---
NURSE NOTES: Blood drawn and sent to lab for AM results. Patient has been bradycardic throughout the night w/ lowest HR of 49 seen on the monitor. She is easily awakens and aroused to stimuli.
[2020-05-27 04:54] LABS: HEMATOCRIT 28.9 % (37.0-47.0); HEMOGLOBIN 9.9 G/DL (12.0-16.0); MEAN CORPUSCULAR VOLUME 90 FL (80-99); PLATELET COUNT 204 K/UL (150-450); RED CELL DISTRIBUTION WIDTH 13.8 % (11.6-14.8)
[2020-05-27 05:08] LABS: ANION GAP 6 mmol/L (5-15); BLOOD UREA NITROGEN 31 mg/dL (7-18); CALCIUM 7.9 MG/DL (8.5-10.1); CARBON DIOXIDE 28 MMOL/L (21-32); CHLORIDE 108 MMOL/L (98-107); CREATININE 0.5 MG/DL (0.55-1.30); SODIUM 142 MMOL/L (136-145)
[2020-05-27] MEDS: NovoLOG Insulin Flexpen SUBQ SCH ×3 (05:57→18:00)
--- NOTE | 2020-05-27 06:00 | NUR ---
NURSE NOTES: No changes in condition. Repositioned and patient went back to sleep. No signs of pain or distress.
--- NOTE | 2020-05-27 06:29 | General Progress Note ---
Subjective ROS Limited/Unobtainable: Yes Allergies: Coded Allergies: DIVALPROEX SODIUM (Verified Allergy, Unknown, 05/14/20) PENICILLINS (Verified Allergy, Unknown, 05/14/20) Subjective events noted and interval notes reviewed glucose values are stable Item Value Date Time Bedside Blood Glucose 142 mg/dl H 05/27/20 0600 Bedside Blood Glucose 134 mg/dl H 05/27/20 0000 Bedside Blood Glucose 137 mg/dl H 05/26/20 1800 Bedside Blood Glucose 138 mg/dl H 05/26/20 1200 Bedside Blood Glucose 104 mg/dl 05/26/20 0600 Bedside Blood Glucose 94 mg/dl 05/26/20 0000 Objective Last 24 Hour Vital Signs Date Time Temp Pulse Resp B/P (MAP) Pulse Ox O2 Delivery O2 Flow Rate FiO2 05/27/20 06:00 59 17 129/65 (86) 100 05/27/20 05:00 50 16 130/69 (89) 100 05/27/20 04:00 Mechanical Ventilator 05/27/20 04:00 56 05/27/20 04:00 40 05/27/20 04:00 98.0 49 15 127/64 (85) 100 05/27/20 03:00 52 16 118/61 (80) 99 05/27/20 02:30 57 14 40 05/27/20 02:00 55 20 125/63 (83) 99 05/27/20 01:00 54 16 130/61 (84) 99 05/27/20 00:00 45 05/27/20 00:00 Mechanical Ventilator 05/27/20 00:00 98.3 53 17 131/67 (88) 100 05/26/20 23:15 58 132/68 05/26/20 23:14 58 05/26/20 23:00 59 20 99 05/26/20 22:14 61 18 45 05/26/20 22:00 65 18 155/73 (100) 98 05/26/20 21:00 56 17 134/59 (84) 99 05/26/20 20:00 Mechanical Ventilator 05/26/20 20:00 98.8 57 18 138/63 (88) 97 05/26/20 20:00 45 05/26/20 19:14 55 23 45 05/26/20 19:12 53 05/26/20 19:00 98.2 59 23 131/59 (83) 94 05/26/20 18:00 66 20 124/59 (80) 100 05/26/20 17:00 57 17 132/56 (81) 100 05/26/20 16:00 59 05/26/20 16:00 45 05/26/20 16:00 59 17 114/70 (85) 100 05/26/20 16:00 Mechanical Ventilator 05/26/20 15:17 56 17 45 05/26/20 15:00 48 16 121/52 (75) 100 05/26/20 14:00 51 15 124/54 (77) 100 05/26/20 13:00 98.4 57 13 122/52 (75) 100 05/26/20 12:00 45 05/26/20 12:00 59 14 105/49 (67) 100 05/26/20 12:00 Mechanical Ventilator 05/26/20 12:00 60 05/26/20 11:06 55 14 45 05/26/20 11:00 55 17 108/48 (68) 100 05/26/20 10:00 61 14 111/54 (73) 100 05/26/20 09:00 62 15 103/50 (67) 100 05/26/20 08:00 Mechanical Ventilator 05/26/20 08:00 55 05/26/20 08:00 98.2 60 16 101/49 (66) 99 05/26/20 08:00 54 05/26/20 07:05 59 13 45 05/26/20 07:00 57 15 105/49 (67) 100 05/26/20 06:30 64 14 Intake and Output 05/26/20 05/27/20 19:00 07:00 Intake Total 1992.5 ml 1342.5 ml Output Total 640 ml 900 ml Balance 1352.5 ml 442.5 ml Free Water 300 ml 100 ml IV Total 972.5 ml 582.5 ml Tube Feeding 720 ml 660 ml Output Urine Total 640 ml 900 ml # Bowel Movements 4 2 Laboratory Tests 05/26/20 10:00: White Blood Count 9.3, Red Blood Count 2.48L, Hemoglobin 7.6L, Hematocrit 22.5L, Mean Corpuscular Volume 91, Mean Corpuscular Hemoglobin 30.6, Mean Corpuscular Hemoglobin Concent 33.8, Red Cell Distribution Width 14.3, Platelet Count 194, Mean Platelet Volume 8.9, Neutrophils (%) (Auto) , Lymphocytes (%) (Auto) , Monocytes (%) (Auto) , Eosinophils (%) (Auto) , Basophils (%) (Auto) , Differential Total Cells Counted 100, Neutrophils % (Manual) 93H, Lymphocytes % (Manual) 5L, Monocytes % (Manual) 2, Eosinophils % (Manual) 0, Basophils % (Manual) 0, Band Neutrophils 0, Platelet Estimate Adequate, Platelet Morphology Normal, Hypochromasia 3+, Anisocytosis 1+, Spherocytes 1+ 05/27/20 04:00: White Blood Count 10.0, Red Blood Count 3.20L, Hemoglobin 9.9#L, Hematocrit 28.9L, Mean Corpuscular Volume 90, Mean Corpuscular Hemoglobin 30.9, Mean Corpuscular Hemoglobin Concent 34.2, Red Cell Distribution Width 13.8, Platelet Count 204, Mean Platelet Volume 8.9, Neutrophils (%) (Auto) , Lymphocytes (%) (Auto) , Monocytes (%) (Auto) , Eosinophils (%) (Auto) , Basophils (%) (Auto) , Neutrophils % (Manual) [Pending], Lymphocytes % (Manual) [Pending], Platelet Estimate [Pending], Platelet Morphology [Pending], Sodium Level 142, Potassium Level 4.0, Chloride Level 108H, Carbon Dioxide Level 28, Anion Gap 6, Blood Urea Nitrogen 31H, Creatinine 0.5L, Estimat Glomerular Filtration Rate > 60, Glucose Level 132H, Calcium Level 7.9L Height (Feet): 5 Height (Inches): 4.00 Weight (Pounds): 149 Objective Current Medications Medications (Trade) Dose Ordered Sig/Morgan Route PRN Reason Start Time Stop Time Status Last Admin Dose Admin Acetaminophen (Tylenol) 650 mg Q4H PRN GT Temp >100.5 05/16/20 06:15 06/15/20 06:14 05/21/20 20:01 Acetaminophen (Tylenol) 650 mg Q4H PRN RECTAL Temp >100.5 05/16/20 19:45 06/15/20 19:44 05/17/20 18:30 Chlorhexidine Gluconate (Lilliam-Hex 2%) 1 applic DAILY@1999 TOPIC 05/15/20 20:00 08/13/20 19:59 05/26/20 20:00 Dextrose (Dextrose 50%) 25 ml Q30M PRN IV Hypoglycemia 05/22/20 00:00 08/20/20 00:00 Dextrose (Dextrose 50%) 50 ml Q30M PRN IV Hypoglycemia 05/22/20 00:00 08/20/20 00:00 Insulin Aspart (NovoLOG) EVERY 6 HOURS SUBQ 05/22/20 06:00 08/20/20 05:59 05/27/20 05:57 Meropenem 1 gm/ Sodium Chloride 55 ml @ 110 mls/hr Q12HR@0200,1400 IVPB 05/25/20 14:00 05/27/20 14:30 05/27/20 02:15 Midodrine (Pro-Amatine) 10 mg TID ORAL 05/23/20 09:00 08/21/20 08:59 05/26/20 17:59 Norepinephrine Bitartrate 8 mg/ Dextrose 250 ml @ 0 mls/hr Q24H IV 05/20/20 18:00 06/19/20 17:59 05/22/20 05:45 Pantoprazole (Protonix) 40 mg DAILY IV 05/15/20 09:00 06/14/20 08:59 05/26/20 09:23 Phenylephrine HCl 100 mg/Dextrose 250 ml @ 0 mls/hr Q24H IV 05/15/20 00:15 06/14/20 00:14 05/15/20 13:28 Sodium Chloride 1,000 ml @ 75 mls/hr [id number] IV 05/15/20 06:45 06/14/20 06:44 05/26/20 22:58 Vasopressin 100 units/Sodium Chloride 100 ml @ 0 mls/hr Q24H IV 05/15/20 00:15 06/14/20 00:14 Zinc Oxide (Zinc Oxide) 1 applic TIDPRN PRN TOPIC Abdominal cramps 05/20/20 13:00 08/18/20 12:59 Assessment/Plan Problem List: (1) COVID-19 ICD Codes: U07.1 - COVID-19 SNOMED: 051095196 (2) Elevated d-dimer ICD Codes: R79.89 - Other specified abnormal findings of blood chemistry SNOMED: 860638169 (3) Rapid atrial fibrillation ICD Codes: I48.91 - Unspecified atrial fibrillation SNOMED: 618383889 (4) Sepsis ICD Codes: A41.9 - Sepsis, unspecified organism SNOMED: 43022945 (5) Respiratory failure ICD Codes: J96.90 - Respiratory failure, unspecified, unspecified whether with hypoxia or hypercapnia SNOMED: 000046981 (6) Renal failure ICD Codes: N19 - Unspecified kidney failure SNOMED: 30938637 (7) Hypernatremia ICD Codes: E87.0 - Hyperosmolality and hypernatremia SNOMED: 843759736 (8) T2DM (type 2 diabetes mellitus) ICD Codes: E11.9 - Type 2 diabetes mellitus without complications SNOMED: 49721708 Status: stable Assessment/Plan: no need for Levemir continue Novolog sliding scale every 6 hours hypoglycemia protocol in order Chau Shelley MD May 27, 2020 06:29
--- NOTE | 2020-05-27 06:46 | NUR ---
RD ASSESSMENT & RECOMMENDATIONS SEE CARE ACTIVITY FOR COMPLETE ASSESSMENT DAILY ESTIMATED NEEDS: Needs based on Critical care, 57.8kh abw 22-30 kcals/kg 9109-8007 total kcals 1.2-2 g protein/kg 69-116 g total protein 25-30 mL/kg 6434-3520 total fluid mLs NUTRITION DIAGNOSIS: Swallowing difficulty r/t h/o CVA, dysphagia as evidenced by pt is GT dep, now intubated w/ resp distress. CURRENT TF:Glucerna 1.2@ 60ml/hr x24 hrs ENTERAL NUTRITION RECOMMENDATIONS: Glucerna 1.2 @ 60ml/hr x24 hrs to provide 1440ml, 1728 kcal, 86g pro, 1159ml free H2O -> With hemodynamic stability, maintain current TF @ goal. - Flush per MD. HOB over 30 degrees ADDITIONAL RECOMMENDATIONS: 1) Monitor hemodynamic stablity: off pressor support 2) Obtain an accurate wt: per MD pt w/ 'cachexia' EMR wt: 117.8kg vs am wts:64kg 3) Wound healing: TF provides 100% RDI add Vit C 250mg QD + Flavio BID 4) Monitor lytes, replete as needed 5) Monitor BGs closely: improved-> Decadron dc'ed, Levemir dc'ed
--- NOTE | 2020-05-27 07:14 | NUR ---
NURSE HAND-OFF REPORT: Latest Vital Signs: Temperature 98.0 , Pulse 51 , B/P 113 /55 , Respiratory Rate 15 , O2 SAT 100 , Mechanical Ventilator, O2 Flow Rate 12.0 . Vital Sign Comment: Stable EKG Rhythm: Sinus Bradycardia Rhythm change?: N MD Notified?: Y Mak Peterson (covering for [place]) Response: No New Orders Received Latest Garza Fall Score: 50 Fall Risk: High Risk Safety Measures: Call light Within Reach, Bed Alarm Zone 1, Side Rails Side Rails x2, Bed position Low and Locked. Fall Precautions: Door Sign Report given to .
--- NOTE | 2020-05-27 08:00 | NUR ---
NURSE NOTES: Pt was assessed after receiving change of shift report from Yolie RUIZ. Pt opens eyes to touch, withdraws to pain, orally intubated. ETT 7.5 at 23cm lipline with vent settings SIMV-8, PS8, VT500, Peep 5, FIO2 55% at O2Sat 100%. SB to NSR on awake overnight monitor, HR fluctuating from 50-60. Temp 98.6F axillary. IV fluid 0.45NS is infusing at 75ml/hour via right IJ triple lumen central line. NGT is present in right nare, with feeding Glucerna 1.2 infusing at goal rate of 60ml/hour. Arauz catheter is present, draining mildly cloudy/yellow urine. Skin alterations are noted, sites covered with dressings. Pt is on pressure release mattress. HOB at 30 degrees, bed locked, in lowest position, three side rails up. Will continue to monitor pt and follow plan of care per MD orders and protocol.
[2020-05-27] MEDS: Midodrine 10mg tab ORAL SCH ×3 (08:37→18:10)
[2020-05-27] MEDS: Pantoprazole Inj IV SCH (08:37)
--- NOTE | 2020-05-27 10:00 | NUR ---
NURSE NOTES: AM meds were administered. Dr. Peterson is at the nurse's station. MD was notified regarding intermittent bradycardia, HR fluctuating as low as 46. Per MD, "it's okay, this is due to vasovagal response". No orders were received. Oral care was done, pt was suctioned, output of moderate amount of white/frothy/thin secretions. Pt was repositioned for comfort.
--- NOTE | 2020-05-27 10:49 | Pulmonology Progress Note ---
Subjective ROS Limited/Unobtainable: Yes Interval Events: Unable to extubtae due to poor mental status Constitutional: Reports: no symptoms HEENT: Repors: no symptoms Respiratory: Reports: no symptoms Cardiovascular: Reports: no symptoms Gastrointestinal/Abdominal: Reports: no symptoms Genitourinary: Reports: no symptoms Allergies: Coded Allergies: DIVALPROEX SODIUM (Verified Allergy, Unknown, 05/14/20) PENICILLINS (Verified Allergy, Unknown, 05/14/20) All Systems: reviewed and negative except above Objective Last 24 Hour Vital Signs Date Time Temp Pulse Resp B/P (MAP) Pulse Ox O2 Delivery O2 Flow Rate FiO2 05/27/20 10:35 62 20 40 05/27/20 10:00 52 17 132/65 (87) 97 05/27/20 09:00 58 16 119/60 (79) 100 05/27/20 08:00 Mechanical Ventilator 05/27/20 08:00 98.8 60 19 121/62 (81) 100 05/27/20 08:00 40 05/27/20 08:00 53 05/27/20 07:24 51 15 40 05/27/20 07:00 51 15 113/55 (74) 100 05/27/20 06:30 53 14 05/27/20 06:00 59 17 129/65 (86) 100 05/27/20 05:00 50 16 130/69 (89) 100 05/27/20 04:00 Mechanical Ventilator 05/27/20 04:00 56 05/27/20 04:00 40 05/27/20 04:00 98.0 49 15 127/64 (85) 100 05/27/20 03:00 52 16 118/61 (80) 99 05/27/20 02:30 57 14 40 05/27/20 02:00 55 20 125/63 (83) 99 05/27/20 01:00 54 16 130/61 (84) 99 05/27/20 00:00 45 05/27/20 00:00 Mechanical Ventilator 05/27/20 00:00 98.3 53 17 131/67 (88) 100 05/26/20 23:15 58 132/68 05/26/20 23:14 58 05/26/20 23:00 59 20 99 05/26/20 22:14 61 18 45 05/26/20 22:00 65 18 155/73 (100) 98 05/26/20 21:00 56 17 134/59 (84) 99 05/26/20 20:00 Mechanical Ventilator 05/26/20 20:00 98.8 57 18 138/63 (88) 97 05/26/20 20:00 45 05/26/20 19:14 55 23 45 05/26/20 19:12 53 05/26/20 19:00 98.2 59 23 131/59 (83) 94 05/26/20 18:00 66 20 124/59 (80) 100 05/26/20 17:00 57 17 132/56 (81) 100 05/26/20 16:00 59 05/26/20 16:00 45 05/26/20 16:00 59 17 114/70 (85) 100 05/26/20 16:00 Mechanical Ventilator 05/26/20 15:17 56 17 45 05/26/20 15:00 48 16 121/52 (75) 100 05/26/20 14:00 51 15 124/54 (77) 100 05/26/20 13:00 98.4 57 13 122/52 (75) 100 05/26/20 12:00 45 05/26/20 12:00 59 14 105/49 (67) 100 05/26/20 12:00 Mechanical Ventilator 05/26/20 12:00 60 05/26/20 11:06 55 14 45 05/26/20 11:00 55 17 108/48 (68) 100 Intake and Output 05/26/20 05/27/20 19:00 07:00 Intake Total 1992.5 ml 1627.5 ml Output Total 640 ml 990 ml Balance 1352.5 ml 637.5 ml Free Water 300 ml 100 ml IV Total 972.5 ml 807.5 ml Tube Feeding 720 ml 720 ml Output Urine Total 640 ml 990 ml # Bowel Movements 4 2 General Appearance: no acute distress HEENT: normocephalic Respiratory: chest wall non-tender, lungs clear Cardiovascular: normal peripheral pulses, normal rate Abdomen: normal bowel sounds Microbiology Date/Time Source Procedure Growth Status 05/26/20 12:15 Nasopharynx SARS-CoV-2 RdRp Gene Assay - Final Complete 05/25/20 18:00 Nasopharynx Coronavirus COVID-19 PCR ([facility]) - Final Complete 05/25/20 13:30 Urine,Clean Catch Urine Culture - Final NO GROWTH AFTER 48 HOURS Complete 05/25/20 13:30 Sputum Gram Stain - Final Resulted 05/25/20 13:30 Sputum Culture - Preliminary Gram Negative Bacillus 1 Resulted 05/25/20 13:30 Blood Blood Culture - Preliminary NO GROWTH AFTER 24 HOURS Resulted 05/25/20 13:30 Blood Blood Culture - Preliminary NO GROWTH AFTER 24 HOURS Resulted 05/24/20 16:15 Nasopharynx Coronavirus COVID-19 PCR ([facility]) - Final Complete Laboratory Tests 05/27/20 04:00: White Blood Count 10.0, Red Blood Count 3.20L, Hemoglobin 9.9#L, Hematocrit 28.9L, Mean Corpuscular Volume 90, Mean Corpuscular Hemoglobin 30.9, Mean Corpuscular Hemoglobin Concent 34.2, Red Cell Distribution Width 13.8, Platelet Count 204, Mean Platelet Volume 8.9, Neutrophils (%) (Auto) , Lymphocytes (%) (Auto) , Monocytes (%) (Auto) , Eosinophils (%) (Auto) , Basophils (%) (Auto) , Differential Total Cells Counted 100, Neutrophils % (Manual) 87H, Lymphocytes % (Manual) 8L, Monocytes % (Manual) 5, Eosinophils % (Manual) 0, Basophils % (Manual) 0, Band Neutrophils 0, Platelet Estimate Adequate, Platelet Morphology Normal, Anisocytosis 1+, Sodium Level 142, Potassium Level 4.0, Chloride Level 108H, Carbon Dioxide Level 28, Anion Gap 6, Blood Urea Nitrogen 31H, Creatinine 0.5L, Estimat Glomerular Filtration Rate > 60, Glucose Level 132H, Calcium Level 7.9L Current Medications Medications (Trade) Dose Ordered Sig/Morgan Route PRN Reason Start Time Stop Time Status Last Admin Dose Admin Acetaminophen (Tylenol) 650 mg Q4H PRN GT Temp >100.5 05/16/20 06:15 06/15/20 06:14 05/21/20 20:01 Acetaminophen (Tylenol) 650 mg Q4H PRN RECTAL Temp >100.5 05/16/20 19:45 06/15/20 19:44 05/17/20 18:30 Chlorhexidine Gluconate (Lilliam-Hex 2%) 1 applic DAILY@1999 TOPIC 05/15/20 20:00 08/13/20 19:59 05/26/20 20:00 Dextrose (Dextrose 50%) 25 ml Q30M PRN IV Hypoglycemia 05/22/20 00:00 08/20/20 00:00 Dextrose (Dextrose 50%) 50 ml Q30M PRN IV Hypoglycemia 05/22/20 00:00 08/20/20 00:00 Insulin Aspart (NovoLOG) EVERY 6 HOURS SUBQ 05/22/20 06:00 08/20/20 05:59 05/27/20 05:57 Meropenem 1 gm/ Sodium Chloride 55 ml @ 110 mls/hr Q12HR@0200,1400 IVPB 05/25/20 14:00 05/27/20 14:30 05/27/20 02:15 Midodrine (Pro-Amatine) 10 mg TID ORAL 05/23/20 09:00 08/21/20 08:59 05/27/20 08:37 Norepinephrine Bitartrate 8 mg/ Dextrose 250 ml @ 0 mls/hr Q24H IV 05/20/20 18:00 06/19/20 17:59 05/22/20 05:45 Pantoprazole (Protonix) 40 mg DAILY IV 05/15/20 09:00 06/14/20 08:59 05/27/20 08:37 Phenylephrine HCl 100 mg/Dextrose 250 ml @ 0 mls/hr Q24H IV 05/15/20 00:15 06/14/20 00:14 05/15/20 13:28 Sodium Chloride 1,000 ml @ 75 mls/hr [id number] IV 05/15/20 06:45 06/14/20 06:44 05/26/20 22:58 Vasopressin 100 units/Sodium Chloride 100 ml @ 0 mls/hr Q24H IV 05/15/20 00:15 06/14/20 00:14 Zinc Oxide (Zinc Oxide) 1 applic TIDPRN PRN TOPIC Abdominal cramps 05/20/20 13:00 08/18/20 12:59 Assessment/Plan Assessment/Plan IMPRESSION: 1. Acute respiratory failure. 2. Diabetes mellitus with hyperglycemia. 3. Septic shock. 4. Chronic G-tube. 5. Decubitus. 6. History of CHF. DISCUSSION: Continue fluids and antibiotics. Pressors prn Now on T piece On 40% FiO2 DVT and GI prophylaxis. Respiratory precautions due to COVID-[address] Wade. I will follow carefully. Decadron continuing Mental status better however unsafe to extubate Will not be able to maintain airway Recommend trach Needs new PEG Richard James Omar Syed MD May 27, 2020 10:49
--- NOTE | 2020-05-27 11:55 | Surgery Progress Note ---
Surgery Progress Note Subjective Additional Comments ill appearing labs reviewed exam stable may need trach Objective Last 24 Hour Vital Signs Date Time Temp Pulse Resp B/P (MAP) Pulse Ox O2 Delivery O2 Flow Rate FiO2 05/27/20 10:35 62 20 40 05/27/20 10:00 52 17 132/65 (87) 97 05/27/20 09:00 58 16 119/60 (79) 100 05/27/20 08:00 Mechanical Ventilator 05/27/20 08:00 98.8 60 19 121/62 (81) 100 05/27/20 08:00 40 05/27/20 08:00 53 05/27/20 07:24 51 15 40 05/27/20 07:00 51 15 113/55 (74) 100 05/27/20 06:30 53 14 05/27/20 06:00 59 17 129/65 (86) 100 05/27/20 05:00 50 16 130/69 (89) 100 05/27/20 04:00 Mechanical Ventilator 05/27/20 04:00 56 05/27/20 04:00 40 05/27/20 04:00 98.0 49 15 127/64 (85) 100 05/27/20 03:00 52 16 118/61 (80) 99 05/27/20 02:30 57 14 40 05/27/20 02:00 55 20 125/63 (83) 99 05/27/20 01:00 54 16 130/61 (84) 99 05/27/20 00:00 45 05/27/20 00:00 Mechanical Ventilator 05/27/20 00:00 98.3 53 17 131/67 (88) 100 05/26/20 23:15 58 132/68 05/26/20 23:14 58 05/26/20 23:00 59 20 99 05/26/20 22:14 61 18 45 05/26/20 22:00 65 18 155/73 (100) 98 05/26/20 21:00 56 17 134/59 (84) 99 05/26/20 20:00 Mechanical Ventilator 05/26/20 20:00 98.8 57 18 138/63 (88) 97 05/26/20 20:00 45 05/26/20 19:14 55 23 45 05/26/20 19:12 53 05/26/20 19:00 98.2 59 23 131/59 (83) 94 05/26/20 18:00 66 20 124/59 (80) 100 05/26/20 17:00 57 17 132/56 (81) 100 05/26/20 16:00 59 05/26/20 16:00 45 05/26/20 16:00 59 17 114/70 (85) 100 05/26/20 16:00 Mechanical Ventilator 05/26/20 15:17 56 17 45 05/26/20 15:00 48 16 121/52 (75) 100 05/26/20 14:00 51 15 124/54 (77) 100 05/26/20 13:00 98.4 57 13 122/52 (75) 100 05/26/20 12:00 45 05/26/20 12:00 59 14 105/49 (67) 100 05/26/20 12:00 Mechanical Ventilator 05/26/20 12:00 60 I&O Intake and Output 05/26/20 05/27/20 19:00 07:00 Intake Total 1992.5 ml 1627.5 ml Output Total 640 ml 990 ml Balance 1352.5 ml 637.5 ml Free Water 300 ml 100 ml IV Total 972.5 ml 807.5 ml Tube Feeding 720 ml 720 ml Output Urine Total 640 ml 990 ml # Bowel Movements 4 2 Dressing: other Wound: other Cardiovascular: RSR Respiratory: decreased breath sounds Abdomen: soft, non-tender, present bowel sounds Extremities: no edema Laboratory Tests Test 05/27/20 04:00 White Blood Count 10.0 K/UL (4.8-10.8) Red Blood Count 3.20 M/UL (4.20-5.40) L Hemoglobin 9.9 G/DL (12.0-16.0) #L Hematocrit 28.9 % (37.0-47.0) L Mean Corpuscular Volume 90 FL (80-99) Mean Corpuscular Hemoglobin 30.9 PG (27.0-31.0) Mean Corpuscular Hemoglobin Concent 34.2 G/DL (32.0-36.0) Red Cell Distribution Width 13.8 % (11.6-14.8) Platelet Count 204 K/UL (150-450) Mean Platelet Volume 8.9 FL (6.5-10.1) Neutrophils (%) (Auto) % (45.0-75.0) Lymphocytes (%) (Auto) % (20.0-45.0) Monocytes (%) (Auto) % (1.0-10.0) Eosinophils (%) (Auto) % (0.0-3.0) Basophils (%) (Auto) % (0.0-2.0) Differential Total Cells Counted 100 Neutrophils % (Manual) 87 % (45-75) H Lymphocytes % (Manual) 8 % (20-45) L Monocytes % (Manual) 5 % (1-10) Eosinophils % (Manual) 0 % (0-3) Basophils % (Manual) 0 % (0-2) Band Neutrophils 0 % (0-8) Platelet Estimate Adequate Platelet Morphology Normal Anisocytosis 1+ Sodium Level 142 MMOL/L (136-145) Potassium Level 4.0 MMOL/L (3.5-5.1) Chloride Level 108 MMOL/L (98-107) H Carbon Dioxide Level 28 MMOL/L (21-32) Anion Gap 6 mmol/L (5-15) Blood Urea Nitrogen 31 mg/dL (7-18) H Creatinine 0.5 MG/DL (0.55-1.30) L Estimat Glomerular Filtration Rate > 60 mL/min (>60) Glucose Level 132 MG/DL (74-106) H Calcium Level 7.9 MG/DL (8.5-10.1) L Plan Problems: (1) Hypernatremia (2) Renal failure (3) Respiratory failure (4) Sepsis Assessment & Plan: COVID + leukocytosis anemia electrolytes abnormal on iv fluids renal input appreciated cxr noted abx as per ID will follow with recs Interim placement of orogastric tube, also documented on recent abdominal radiograph. Stable satisfactory position of endotracheal tube and right jugular central venous catheter. There is increased pleural fluid and likely left basilar consolidation/atelectasis. The right lung and pleural space remain clear. Impression: Increasing left pleural fluid and likely basilar consolidation/atelectasis. Interim orogastric intubation DAILY ESTIMATED NEEDS: Needs based on Pulmonary, DM, wounds 66.6kg 25-30 kcals/kg 0100-4584 total kcals 1.25-1.5 g protein/kg 83-100 g total protein 20-25 mL/kg 8694-9111 total fluid mLs NUTRITION DIAGNOSIS: Swallowing difficulty r/t dysphagia as evidenced by h/o CVA, pt is GT dep, currently ICU status, now intubated, off pressor support, GT feeds initiated. CURRENT TF:Glucerna 1.2 @45ml/hr ENTERAL NUTRITION RECOMMENDATIONS: As medically able: GLUCERNA 1.5 goal of 45ml/hr x24 hrs to provide 1080ml, 1620 kcal, 89g pro, 820ml free H2O -> as medically able without aspiration risk start Glucerna 1.5 @low rate 25ml/hr for 6 hrs. Advance as tolerated 10ml/hr q4-6 hrs to goal. - Flush per MD, HOB over 30 degrees. ---- If not hemodynamically stable, rec trophic feeds of 5-10ml/hr to maintain gut integrity. ADDITIONAL RECOMMENDATIONS: 1) Obtain an accurate calibrated bed scale wt 2) F/up w/ H&P 3) With active TF orders, add JASMYN BID for noted DTPI wounds 4) TF recs as above when off bipap and w/ hemodynamic stability -> Now intubated, off pressors, on GT feeds. he spleen size is normal. The gallbladder contains sludge. No stones. No wall thickening nor pericholecystic fluid. Common bile duct measures 4 mm in diameter. Small amount free fluid is seen adjacent to the liver and spleen Impression: Gallbladder sludge. Negative for dilated bile ducts Normal appearing liver and spleen (5) Elevated d-dimer (6) COVID-19 Assessment & Plan: ++ (7) Pressure ulcer Assessment & Plan: Pt presented on admission with multiple Pressure injuries.DTPI noted to R Buttocks (L)3.8cm x (W)3.4cm. Base of wound is purpuric,fluctuant with surrounding maroon and indurated borders. DTPI Upper L Buttocks(L)5.5cm x (W)4cm. Base of wound is maroon and indurated. Borders are irregular. Non-Blanchable erythema without induration/fluctuance L lower buttocks(L)4cm x (W)7cm. R and L heels are soft but blanchable. Erosion noted at peristomal GT site. Site is erythematous and excoriated. Small amt. sanguineous exudate. Tx.Plan: Apply Moisture Barrier Paste to Sacrum, R and L Buttocks. Cover each area with Optifoam drsg. Change every 3 days and prn. Apply Moisture Barrier Paste to R and L Ischial tuberosities with each incontinence care. Apply Cavilon Skin Barrier to both heels. Cover each heel and malleoli with Optifoam drsg. Change every 7 days and prn. Reposition at least every 2hours or as tolerated. Off-load heels with pillow. APM/DARIN Mattress overlay. Apply Zinc Oxide Paste TID to GT site. Leave open to Air. 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
--- NOTE | 2020-05-27 12:00 | NUR ---
NURSE NOTES: Pt was seen by Dr. Wade. Per MD, "bioethics consult is in place, to decide regarding terminal extubation vs. plan for trach/PEG". Dr. Wade also witnessed bradycardic episode, per MD, currently continue to monitor, no new orders at this time. Pt remains afebrile; tolerating NGT feeding at goal rate of 60ml/hour with zero residuals.
--- NOTE | 2020-05-27 12:41 | General Progress Note ---
Subjective ROS Limited/Unobtainable: No Allergies: Coded Allergies: DIVALPROEX SODIUM (Verified Allergy, Unknown, 05/14/20) PENICILLINS (Verified Allergy, Unknown, 05/14/20) Objective Last 24 Hour Vital Signs Date Time Temp Pulse Resp B/P (MAP) Pulse Ox O2 Delivery O2 Flow Rate FiO2 05/27/20 12:00 73 05/27/20 12:00 40 05/27/20 12:00 98.6 57 17 143/67 (92) 100 05/27/20 12:00 Mechanical Ventilator 05/27/20 11:00 45 15 133/66 (88) 100 05/27/20 10:35 62 20 40 05/27/20 10:00 52 17 132/65 (87) 97 05/27/20 09:00 58 16 119/60 (79) 100 05/27/20 08:00 Mechanical Ventilator 05/27/20 08:00 98.8 60 19 121/62 (81) 100 05/27/20 08:00 40 05/27/20 08:00 53 05/27/20 07:24 51 15 40 05/27/20 07:00 51 15 113/55 (74) 100 05/27/20 06:30 53 14 05/27/20 06:00 59 17 129/65 (86) 100 05/27/20 05:00 50 16 130/69 (89) 100 05/27/20 04:00 Mechanical Ventilator 05/27/20 04:00 56 05/27/20 04:00 40 05/27/20 04:00 98.0 49 15 127/64 (85) 100 05/27/20 03:00 52 16 118/61 (80) 99 05/27/20 02:30 57 14 40 05/27/20 02:00 55 20 125/63 (83) 99 05/27/20 01:00 54 16 130/61 (84) 99 05/27/20 00:00 45 05/27/20 00:00 Mechanical Ventilator 05/27/20 00:00 98.3 53 17 131/67 (88) 100 05/26/20 23:15 58 132/68 05/26/20 23:14 58 05/26/20 23:00 59 20 99 05/26/20 22:14 61 18 45 05/26/20 22:00 65 18 155/73 (100) 98 05/26/20 21:00 56 17 134/59 (84) 99 05/26/20 20:00 Mechanical Ventilator 05/26/20 20:00 98.8 57 18 138/63 (88) 97 05/26/20 20:00 45 05/26/20 19:14 55 23 45 05/26/20 19:12 53 05/26/20 19:00 98.2 59 23 131/59 (83) 94 05/26/20 18:00 66 20 124/59 (80) 100 05/26/20 17:00 57 17 132/56 (81) 100 05/26/20 16:00 59 05/26/20 16:00 45 05/26/20 16:00 59 17 114/70 (85) 100 05/26/20 16:00 Mechanical Ventilator 05/26/20 15:17 56 17 45 05/26/20 15:00 48 16 121/52 (75) 100 05/26/20 14:00 51 15 124/54 (77) 100 05/26/20 13:00 98.4 57 13 122/52 (75) 100 Intake and Output 05/26/20 05/27/20 19:00 07:00 Intake Total 1992.5 ml 1627.5 ml Output Total 640 ml 990 ml Balance 1352.5 ml 637.5 ml Free Water 300 ml 100 ml IV Total 972.5 ml 807.5 ml Tube Feeding 720 ml 720 ml Output Urine Total 640 ml 990 ml # Bowel Movements 4 2 Laboratory Tests 05/27/20 04:00: White Blood Count 10.0, Red Blood Count 3.20L, Hemoglobin 9.9#L, Hematocrit 28.9L, Mean Corpuscular Volume 90, Mean Corpuscular Hemoglobin 30.9, Mean Corpuscular Hemoglobin Concent 34.2, Red Cell Distribution Width 13.8, Platelet Count 204, Mean Platelet Volume 8.9, Neutrophils (%) (Auto) , Lymphocytes (%) (Auto) , Monocytes (%) (Auto) , Eosinophils (%) (Auto) , Basophils (%) (Auto) , Differential Total Cells Counted 100, Neutrophils % (Manual) 87H, Lymphocytes % (Manual) 8L, Monocytes % (Manual) 5, Eosinophils % (Manual) 0, Basophils % (Manual) 0, Band Neutrophils 0, Platelet Estimate Adequate, Platelet Morphology Normal, Anisocytosis 1+, Sodium Level 142, Potassium Level 4.0, Chloride Level 108H, Carbon Dioxide Level 28, Anion Gap 6, Blood Urea Nitrogen 31H, Creatinine 0.5L, Estimat Glomerular Filtration Rate > 60, Glucose Level 132H, Calcium Level 7.9L Height (Feet): 5 Height (Inches): 4.00 Weight (Pounds): 149 General Appearance: no apparent distress EENT: normal ENT inspection Neck: supple Cardiovascular: normal rate Respiratory/Chest: decreased breath sounds Abdomen: normal bowel sounds, non tender, soft Extremities: non-tender Assessment/Plan Status: stable Assessment/Plan: 1. History of CVA. 2. Dementia. 3. Dysphagia with G-tube. 4. Cachexia. 5. Diabetes. 6. Pressure ulcers. 7. Hypothyroidism. 8. Legal blindness. 9. Currently COVID positive. GT has trice removed NGTF GT replacement when more stable icu care fu Bioethics recs fu labs Jhon Matos MD May 27, 2020 12:41
--- NOTE | 2020-05-27 12:45 | Infectious Diseases Prog Note ---
Assessment/Plan 70 yo female with PMHx of Dementia, DM, CVA ( S/P PEG), COVID 19 infection and pressure ulcers. Septic Shock-combination cardiogenic and septic; SP Gram positive bacteremia- contaminant -05/14 Bcx 1/ S. haemolyticus; 05/17 Bcx Neg UTI UA (+); ucx 10-20k P. mirabilis (S Ceftriaxone, Cefepime) PNA, superimposed bacterial Recent COVID19 pna- now repeat neg x2 -05/26 CXR: Complete opacification of the left hemithorax with mediastinal shift to the left likely due to complete atelectasis of the left lung perhaps from mucous plugging. rapid COVID PCR neg -05/25 sp cx GNR SARS-COV2 neg -05/24 SARS-COV2 pCR inconclusive -05/23 CXR: Worsening aeration with increasing hazy opacification of the left lung base which may related to increased layering pleural effusion and adjacent atelectasis/consolidation. -05/19 CXR: Increasing left pleural fluid and likely basilar consolidation/atelectasis. Interim orogastric intubation 05/16 CXR: Retrocardiac density may represent atelectasis versus infiltrate. CXR 05/14/20 showed Retrocardiac atelectasis/infiltrate with Pulmonary venous congestion. sp cx MDR E.coli (S Cefepime, Meropenem, Zosyn) Hx of COVID 19 - Bacteria secondary infection? Asp PNA? COVID 19 tested Pos [facility] - about 3 week QUAD STAYER -still positive Rapid COVID PCR 05/14 Resp Fail Intuabted on Vent Leukocytosis; increased (sp steroids)- SP Fever; SP EMA, SP SVT -sp cardioversion Hyperglycemia Elevated LFTs; resolving -Abd US: Gallbladder sludge. Negative for dilated bile ducts. Normal appearing liver and spleen. Trace ascites Dementia DM Hx CVA ( S/P PEG) pressure ulcers PLAN - Meropenem #11 (abx d #/) -05/24 SP Decadron #11 -05/19 SP IV Vancomcyin #6 -05/17 SP Cefepime #4 - f/u Cultures - Monitor CBC and Temps -repeat cultures -Can dc COVID isolation (more than 20days since diagnosis and 2 repeat neg test, afebrile) Thank you for consulting [facility]. Will continue to follow along with you. Discussed with RN. Subjective Allergies: Coded Allergies: DIVALPROEX SODIUM (Verified Allergy, Unknown, 05/14/20) PENICILLINS (Verified Allergy, Unknown, 05/14/20) afebrile leukocytosis resolved repeat covid neg x2 FIo2 40% Objective Last 24 Hour Vital Signs Date Time Temp Pulse Resp B/P (MAP) Pulse Ox O2 Delivery O2 Flow Rate FiO2 05/27/20 12:00 73 05/27/20 12:00 40 05/27/20 12:00 98.6 57 17 143/67 (92) 100 05/27/20 12:00 Mechanical Ventilator 05/27/20 11:00 45 15 133/66 (88) 100 05/27/20 10:35 62 20 40 05/27/20 10:00 52 17 132/65 (87) 97 05/27/20 09:00 58 16 119/60 (79) 100 05/27/20 08:00 Mechanical Ventilator 05/27/20 08:00 98.8 60 19 121/62 (81) 100 05/27/20 08:00 40 05/27/20 08:00 53 05/27/20 07:24 51 15 40 05/27/20 07:00 51 15 113/55 (74) 100 05/27/20 06:30 53 14 05/27/20 06:00 59 17 129/65 (86) 100 05/27/20 05:00 50 16 130/69 (89) 100 05/27/20 04:00 Mechanical Ventilator 05/27/20 04:00 56 05/27/20 04:00 40 05/27/20 04:00 98.0 49 15 127/64 (85) 100 05/27/20 03:00 52 16 118/61 (80) 99 05/27/20 02:30 57 14 40 05/27/20 02:00 55 20 125/63 (83) 99 05/27/20 01:00 54 16 130/61 (84) 99 05/27/20 00:00 45 05/27/20 00:00 Mechanical Ventilator 05/27/20 00:00 98.3 53 17 131/67 (88) 100 05/26/20 23:15 58 132/68 05/26/20 23:14 58 05/26/20 23:00 59 20 99 05/26/20 22:14 61 18 45 05/26/20 22:00 65 18 155/73 (100) 98 05/26/20 21:00 56 17 134/59 (84) 99 05/26/20 20:00 Mechanical Ventilator 05/26/20 20:00 98.8 57 18 138/63 (88) 97 05/26/20 20:00 45 05/26/20 19:14 55 23 45 05/26/20 19:12 53 05/26/20 19:00 98.2 59 23 131/59 (83) 94 05/26/20 18:00 66 20 124/59 (80) 100 05/26/20 17:00 57 17 132/56 (81) 100 05/26/20 16:00 59 05/26/20 16:00 45 05/26/20 16:00 59 17 114/70 (85) 100 05/26/20 16:00 Mechanical Ventilator 05/26/20 15:17 56 17 45 05/26/20 15:00 48 16 121/52 (75) 100 05/26/20 14:00 51 15 124/54 (77) 100 05/26/20 13:00 98.4 57 13 122/52 (75) 100 Height (Feet): 5 Height (Inches): 4.00 Weight (Pounds): 149 GEN: On Vent HEENT: NCAT, MMM, Intubated Pulm: Equal rise and fall B/L ABD: Soft, ND, PEG Neuro: Not following, Intubated Microbiology Date/Time Source Procedure Growth Status 05/26/20 12:15 Nasopharynx SARS-CoV-2 RdRp Gene Assay - Final Complete 05/25/20 18:00 Nasopharynx Coronavirus COVID-19 PCR ([facility]) - Final Complete 05/25/20 13:30 Urine,Clean Catch Urine Culture - Final NO GROWTH AFTER 48 HOURS Complete 05/25/20 13:30 Sputum Gram Stain - Final Resulted 05/25/20 13:30 Sputum Culture - Preliminary Gram Negative Bacillus 1 Resulted 05/25/20 13:30 Blood Blood Culture - Preliminary NO GROWTH AFTER 24 HOURS Resulted 05/25/20 13:30 Blood Blood Culture - Preliminary NO GROWTH AFTER 24 HOURS Resulted 05/24/20 16:15 Nasopharynx Coronavirus COVID-19 PCR ([facility]) - Final Complete Laboratory Tests Test 05/27/20 04:00 White Blood Count 10.0 K/UL (4.8-10.8) Red Blood Count 3.20 M/UL (4.20-5.40) L Hemoglobin 9.9 G/DL (12.0-16.0) #L Hematocrit 28.9 % (37.0-47.0) L Mean Corpuscular Volume 90 FL (80-99) Mean Corpuscular Hemoglobin 30.9 PG (27.0-31.0) Mean Corpuscular Hemoglobin Concent 34.2 G/DL (32.0-36.0) Red Cell Distribution Width 13.8 % (11.6-14.8) Platelet Count 204 K/UL (150-450) Mean Platelet Volume 8.9 FL (6.5-10.1) Neutrophils (%) (Auto) % (45.0-75.0) Lymphocytes (%) (Auto) % (20.0-45.0) Monocytes (%) (Auto) % (1.0-10.0) Eosinophils (%) (Auto) % (0.0-3.0) Basophils (%) (Auto) % (0.0-2.0) Differential Total Cells Counted 100 Neutrophils % (Manual) 87 % (45-75) H Lymphocytes % (Manual) 8 % (20-45) L Monocytes % (Manual) 5 % (1-10) Eosinophils % (Manual) 0 % (0-3) Basophils % (Manual) 0 % (0-2) Band Neutrophils 0 % (0-8) Platelet Estimate Adequate Platelet Morphology Normal Anisocytosis 1+ Sodium Level 142 MMOL/L (136-145) Potassium Level 4.0 MMOL/L (3.5-5.1) Chloride Level 108 MMOL/L (98-107) H Carbon Dioxide Level 28 MMOL/L (21-32) Anion Gap 6 mmol/L (5-15) Blood Urea Nitrogen 31 mg/dL (7-18) H Creatinine 0.5 MG/DL (0.55-1.30) L Estimat Glomerular Filtration Rate > 60 mL/min (>60) Glucose Level 132 MG/DL (74-106) H Calcium Level 7.9 MG/DL (8.5-10.1) L Current Medications Medications (Trade) Dose Ordered Sig/Morgan Route PRN Reason Start Time Stop Time Status Last Admin Dose Admin Acetaminophen (Tylenol) 650 mg Q4H PRN GT Temp >100.5 05/16/20 06:15 06/15/20 06:14 05/21/20 20:01 Acetaminophen (Tylenol) 650 mg Q4H PRN RECTAL Temp >100.5 05/16/20 19:45 06/15/20 19:44 05/17/20 18:30 Chlorhexidine Gluconate (Lilliam-Hex 2%) 1 applic DAILY@2000 TOPIC 05/15/20 20:00 08/13/20 19:59 05/26/20 20:00 Dextrose (Dextrose 50%) 25 ml Q30M PRN IV Hypoglycemia 05/22/20 00:00 08/20/20 00:00 Dextrose (Dextrose 50%) 50 ml Q30M PRN IV Hypoglycemia 05/22/20 00:00 08/20/20 00:00 Insulin Aspart (NovoLOG) EVERY 6 HOURS SUBQ 05/22/20 06:00 08/20/20 05:59 05/27/20 05:57 Meropenem 1 gm/ Sodium Chloride 55 ml @ 110 mls/hr Q12HR@0200,1400 IVPB 05/25/20 14:00 05/27/20 14:30 05/27/20 02:15 Midodrine (Pro-Amatine) 10 mg TID ORAL 05/23/20 09:00 08/21/20 08:59 05/27/20 08:37 Norepinephrine Bitartrate 8 mg/ Dextrose 250 ml @ 0 mls/hr Q24H IV 05/20/20 18:00 06/19/20 17:59 05/22/20 05:45 Pantoprazole (Protonix) 40 mg DAILY IV 05/15/20 09:00 06/14/20 08:59 05/27/20 08:37 Phenylephrine HCl 100 mg/Dextrose 250 ml @ 0 mls/hr Q24H IV 05/15/20 00:15 06/14/20 00:14 05/15/20 13:28 Sodium Chloride 1,000 ml @ 75 mls/hr [id number] IV 05/15/20 06:45 06/14/20 06:44 05/27/20 10:57 Vasopressin 100 units/Sodium Chloride 100 ml @ 0 mls/hr Q24H IV 05/15/20 00:15 06/14/20 00:14 Zinc Oxide (Zinc Oxide) 1 applic TIDPRN PRN TOPIC Abdominal cramps 05/20/20 13:00 08/18/20 12:59 Yomaira Terry M.D. May 27, 2020 12:45
--- NOTE | 2020-05-27 13:12 | Cardiology Progress Note ---
Assessment/Plan Status: stable Assessment/Plan Assessment/Plan Assessment/Plan 1. [id number] myocardial infarction. Her troponin was 1.258,1.2,1.9, 3.4 and the down to 0.7 EKG does not show any acute ST-T wave abnormality and certainly no ST elevation. Due to septic shock, DCCV and Renal failure. The echocardiogram had poor windows. 2. PAF with RVR. S/P DCCV 3 times No more fib or accelerated junctional rhythm. Can not use beta-ramakrishna or calcium-channel ramakrishna as the patient is still on Levophed. Dig level is 1.6 Patient has converted to NSR 3. S/P Septic shock. Off Levophed, on Midodrine and antibiotic 4. Severe hypernatremia with sodium of 174, BUN of 131, creatinine 2.7 due to dehydration. Sodium is 155 with BUN of 91 and creatinine of 1.9 with IV fluids. 5. Lactic acidosis on antibiotic. 6. Dysphagia, status post PEG placement. GT has trice removed on 05/18 still some drainage from the GT site NGTF GT replacement when more stable per Dr Matos 7. History of CVA and dementia. 8. Respiratory failure, on T piece today Subjective Cardiovascular: Reports: no symptoms Respiratory: Reports: no symptoms Gastrointestinal/Abdominal: Reports: no symptoms Genitourinary: Reports: no symptoms Subjective C[employer]AGE FOR [employer] Converted to normal sinus Objective Last 24 Hour Vital Signs Date Time Temp Pulse Resp B/P (MAP) Pulse Ox O2 Delivery O2 Flow Rate FiO2 05/27/20 12:00 73 05/27/20 12:00 40 05/27/20 12:00 98.6 57 17 143/67 (92) 100 05/27/20 12:00 Mechanical Ventilator 05/27/20 11:00 45 15 133/66 (88) 100 05/27/20 10:35 62 20 40 05/27/20 10:00 52 17 132/65 (87) 97 05/27/20 09:00 58 16 119/60 (79) 100 05/27/20 08:00 Mechanical Ventilator 05/27/20 08:00 98.8 60 19 121/62 (81) 100 05/27/20 08:00 40 05/27/20 08:00 53 05/27/20 07:24 51 15 40 05/27/20 07:00 51 15 113/55 (74) 100 05/27/20 06:30 53 14 05/27/20 06:00 59 17 129/65 (86) 100 05/27/20 05:00 50 16 130/69 (89) 100 05/27/20 04:00 Mechanical Ventilator 05/27/20 04:00 56 05/27/20 04:00 40 05/27/20 04:00 98.0 49 15 127/64 (85) 100 05/27/20 03:00 52 16 118/61 (80) 99 05/27/20 02:30 57 14 40 05/27/20 02:00 55 20 125/63 (83) 99 05/27/20 01:00 54 16 130/61 (84) 99 05/27/20 00:00 45 05/27/20 00:00 Mechanical Ventilator 05/27/20 00:00 98.3 53 17 131/67 (88) 100 05/26/20 23:15 58 132/68 05/26/20 23:14 58 05/26/20 23:00 59 20 99 05/26/20 22:14 61 18 45 05/26/20 22:00 65 18 155/73 (100) 98 05/26/20 21:00 56 17 134/59 (84) 99 05/26/20 20:00 Mechanical Ventilator 05/26/20 20:00 98.8 57 18 138/63 (88) 97 05/26/20 20:00 45 05/26/20 19:14 55 23 45 05/26/20 19:12 53 05/26/20 19:00 98.2 59 23 131/59 (83) 94 05/26/20 18:00 66 20 124/59 (80) 100 05/26/20 17:00 57 17 132/56 (81) 100 05/26/20 16:00 59 05/26/20 16:00 45 05/26/20 16:00 59 17 114/70 (85) 100 05/26/20 16:00 Mechanical Ventilator 05/26/20 15:17 56 17 45 05/26/20 15:00 48 16 121/52 (75) 100 05/26/20 14:00 51 15 124/54 (77) 100 General Appearance: no apparent distress, alert, on vent EENT: PERRL/EOMI, normal ENT inspection, pharynx normal Neck: normal alignment, normal inspection Rhythm: NSR, PVCs Cardiovascular: normal peripheral pulses, regular rhythm Respiratory/Chest: decreased breath sounds, accessory muscle use Abdomen: normal bowel sounds, no organomegaly, no mass Neurologic: instrument and control technician II-XII grossly normal, no motor/sensory deficits Intake and Output 05/26/20 05/27/20 19:00 07:00 Intake Total 1992.5 ml 1627.5 ml Output Total 640 ml 990 ml Balance 1352.5 ml 637.5 ml Free Water 300 ml 100 ml IV Total 972.5 ml 807.5 ml Tube Feeding 720 ml 720 ml Output Urine Total 640 ml 990 ml # Bowel Movements 4 2 Laboratory Tests Test 05/27/20 04:00 White Blood Count 10.0 K/UL (4.8-10.8) Red Blood Count 3.20 M/UL (4.20-5.40) L Hemoglobin 9.9 G/DL (12.0-16.0) #L Hematocrit 28.9 % (37.0-47.0) L Mean Corpuscular Volume 90 FL (80-99) Mean Corpuscular Hemoglobin 30.9 PG (27.0-31.0) Mean Corpuscular Hemoglobin Concent 34.2 G/DL (32.0-36.0) Red Cell Distribution Width 13.8 % (11.6-14.8) Platelet Count 204 K/UL (150-450) Mean Platelet Volume 8.9 FL (6.5-10.1) Neutrophils (%) (Auto) % (45.0-75.0) Lymphocytes (%) (Auto) % (20.0-45.0) Monocytes (%) (Auto) % (1.0-10.0) Eosinophils (%) (Auto) % (0.0-3.0) Basophils (%) (Auto) % (0.0-2.0) Differential Total Cells Counted 100 Neutrophils % (Manual) 87 % (45-75) H Lymphocytes % (Manual) 8 % (20-45) L Monocytes % (Manual) 5 % (1-10) Eosinophils % (Manual) 0 % (0-3) Basophils % (Manual) 0 % (0-2) Band Neutrophils 0 % (0-8) Platelet Estimate Adequate Platelet Morphology Normal Anisocytosis 1+ Sodium Level 142 MMOL/L (136-145) Potassium Level 4.0 MMOL/L (3.5-5.1) Chloride Level 108 MMOL/L (98-107) H Carbon Dioxide Level 28 MMOL/L (21-32) Anion Gap 6 mmol/L (5-15) Blood Urea Nitrogen 31 mg/dL (7-18) H Creatinine 0.5 MG/DL (0.55-1.30) L Estimat Glomerular Filtration Rate > 60 mL/min (>60) Glucose Level 132 MG/DL (74-106) H Calcium Level 7.9 MG/DL (8.5-10.1) L Microbiology Date/Time Source Procedure Growth Status 05/26/20 12:15 Nasopharynx SARS-CoV-2 RdRp Gene Assay - Final Complete 05/25/20 18:00 Nasopharynx Coronavirus COVID-19 PCR ([facility]) - Final Complete 05/25/20 13:30 Urine,Clean Catch Urine Culture - Final NO GROWTH AFTER 48 HOURS Complete 05/25/20 13:30 Sputum Gram Stain - Final Resulted 05/25/20 13:30 Sputum Culture - Preliminary Gram Negative Bacillus 1 Resulted 05/25/20 13:30 Blood Blood Culture - Preliminary NO GROWTH AFTER 24 HOURS Resulted 05/25/20 13:30 Blood Blood Culture - Preliminary NO GROWTH AFTER 24 HOURS Resulted 05/24/20 16:15 Nasopharynx Coronavirus COVID-19 PCR ([facility]) - Final Complete Erasto Peterson MD May 27, 2020 13:12
--- NOTE | 2020-05-27 13:20 | General Progress Note ---
Progress Note Progress Note Bioethics Note Consult requested by Dr. Wade. I evaluated the patient's chart and discussed her situation in detail with Dr. Talib Diaz M.D. and the social work specialist. Mrs. Brandon is a 69 year old SNF resident under a court ordered conservatorship by the [place] [employer]. She is on a ventilator and non-communicative. Dr. Wade is petitioning the court for consent for tracheostomy and feeding gastrostomy. This is reasonable. However she has multiple chronic conditions and in the event of cardiac arrest, resuscitation would likely be ineffective and result in an even worse quality of life. It is completely appropriate in this case for her status to be changed Do Not Resuscitate. Teddy Valverde M.D. for the Bioethics Committee Teddy Valverde MD May 27, 2020 13:20
--- NOTE | 2020-05-27 14:00 | NUR ---
NURSE NOTES: Pt was repositioned for comfort. Pt has moderate amount of frothy/white/thin secretions, and was suctioned. VS remain stable. Pt is resting in no apparent distress.
--- NOTE | 2020-05-27 14:52 | General Progress Note ---
Subjective Date patient seen: May 27, 2020 Time patient seen: 14:25 ROS Limited/Unobtainable: Yes Allergies: Coded Allergies: DIVALPROEX SODIUM (Verified Allergy, Unknown, 05/14/20) PENICILLINS (Verified Allergy, Unknown, 05/14/20) All Systems: reviewed and negative except above Subjective Non verbal, intubated Objective Last 24 Hour Vital Signs Date Time Temp Pulse Resp B/P (MAP) Pulse Ox O2 Delivery O2 Flow Rate FiO2 05/27/20 14:00 67 20 135/67 (89) 97 05/27/20 13:00 65 18 137/71 (93) 99 05/27/20 12:00 73 05/27/20 12:00 40 05/27/20 12:00 98.6 57 17 143/67 (92) 100 05/27/20 12:00 Mechanical Ventilator 05/27/20 11:00 45 15 133/66 (88) 100 05/27/20 10:35 62 20 40 05/27/20 10:00 52 17 132/65 (87) 97 05/27/20 09:00 58 16 119/60 (79) 100 05/27/20 08:00 Mechanical Ventilator 05/27/20 08:00 98.8 60 19 121/62 (81) 100 05/27/20 08:00 40 05/27/20 08:00 53 05/27/20 07:24 51 15 40 05/27/20 07:00 51 15 113/55 (74) 100 05/27/20 06:30 53 14 05/27/20 06:00 59 17 129/65 (86) 100 05/27/20 05:00 50 16 130/69 (89) 100 05/27/20 04:00 Mechanical Ventilator 05/27/20 04:00 56 05/27/20 04:00 40 05/27/20 04:00 98.0 49 15 127/64 (85) 100 05/27/20 03:00 52 16 118/61 (80) 99 05/27/20 02:30 57 14 40 05/27/20 02:00 55 20 125/63 (83) 99 05/27/20 01:00 54 16 130/61 (84) 99 05/27/20 00:00 45 05/27/20 00:00 Mechanical Ventilator 05/27/20 00:00 98.3 53 17 131/67 (88) 100 05/26/20 23:15 58 132/68 05/26/20 23:14 58 05/26/20 23:00 59 20 99 05/26/20 22:14 61 18 45 05/26/20 22:00 65 18 155/73 (100) 98 05/26/20 21:00 56 17 134/59 (84) 99 05/26/20 20:00 Mechanical Ventilator 05/26/20 20:00 98.8 57 18 138/63 (88) 97 05/26/20 20:00 45 05/26/20 19:14 55 23 45 05/26/20 19:12 53 05/26/20 19:00 98.2 59 23 131/59 (83) 94 05/26/20 18:00 66 20 124/59 (80) 100 05/26/20 17:00 57 17 132/56 (81) 100 05/26/20 16:00 59 05/26/20 16:00 45 05/26/20 16:00 59 17 114/70 (85) 100 05/26/20 16:00 Mechanical Ventilator 05/26/20 15:17 56 17 45 05/26/20 15:00 48 16 121/52 (75) 100 Intake and Output 05/26/20 05/27/20 19:00 07:00 Intake Total 1992.5 ml 1627.5 ml Output Total 640 ml 990 ml Balance 1352.5 ml 637.5 ml Free Water 300 ml 100 ml IV Total 972.5 ml 807.5 ml Tube Feeding 720 ml 720 ml Output Urine Total 640 ml 990 ml # Bowel Movements 4 2 Laboratory Tests 05/27/20 04:00: White Blood Count 10.0, Red Blood Count 3.20L, Hemoglobin 9.9#L, Hematocrit 28.9L, Mean Corpuscular Volume 90, Mean Corpuscular Hemoglobin 30.9, Mean Corpuscular Hemoglobin Concent 34.2, Red Cell Distribution Width 13.8, Platelet Count 204, Mean Platelet Volume 8.9, Neutrophils (%) (Auto) , Lymphocytes (%) (Auto) , Monocytes (%) (Auto) , Eosinophils (%) (Auto) , Basophils (%) (Auto) , Differential Total Cells Counted 100, Neutrophils % (Manual) 87H, Lymphocytes % (Manual) 8L, Monocytes % (Manual) 5, Eosinophils % (Manual) 0, Basophils % (Manual) 0, Band Neutrophils 0, Platelet Estimate Adequate, Platelet Morphology Normal, Anisocytosis 1+, Sodium Level 142, Potassium Level 4.0, Chloride Level 108H, Carbon Dioxide Level 28, Anion Gap 6, Blood Urea Nitrogen 31H, Creatinine 0.5L, Estimat Glomerular Filtration Rate > 60, Glucose Level 132H, Calcium Level 7.9L Height (Feet): 5 Height (Inches): 4.00 Weight (Pounds): 149 General Appearance: WD/WN EENT: PERRL/EOMI Neck: non-tender Cardiovascular: normal rate Respiratory/Chest: decreased breath sounds Abdomen: normal bowel sounds Edema: trace edema Neurologic: conveyor feeder II-XII grossly normal Assessment/Plan Status: stable Assessment/Plan: 70-year-old female history of dementia, cachexia, dysphasia G-tube dependent feeding presents for evaluation of rapid heart rate and hypotension. # Septic with element of cardiogenic shock Etiology COVID 19 vs UTI vs bacteremia / contaminant and NSTEMI Bcx POSITIVE WITH G+ Cocci and U cx 05/14 Proteus Mirabillis Continue Meropenem DAY 07/23 Vancomycin stopped stopped Cefepime Dexamethasone due to hypoxia on day 10 now stopped. Leukocytosis improved. # Acute respiratory failure Intubated and not ready to wean off ICU care appreciated Dr. Enriquez consulted Ventilator management per ICU-pulmonary FiO2 65 % today. T piece. Medically tracheostomy is needed as she is not tolerating wean off. Overall, her quality of life will not improve from prior baseline with advanced dementia. Will need permanent ventilator support via tracheostomy and subacute level of care. # SVT vs A. Flutter s/p DC x 3 # NSTEMI HR is controlled in the 100 range and tolerating Digoxin Vasopressors in place Levophed at [address] Morillo requested and TTE requested and poor window. Will need repeat TTE when able to safely complete. Limited due to covid positive Troponin 3.4 now 0.7 EKG 05/17 NSR # AG metabolic acidosis Ddx lactic acidosis Improved. # Hyperglycemia r/o DKA ABG and Ketones negative Endocrine consult with Dr. Shelley IV insulin gtt stopped and in SQ insulin coverage now # Hypernatremia Improving Monitor BMP IVF to 1/2 NS lower rate 75 cc hr continue # COVID 19 Positive on admission. Original infection > 15 days ago, do not qualify for Revdisimir or plasma On Dexamethasone completed 10 day course Contact and droplet isolation # Dysphagia PEG REMOVED 05/16 Carlo Vargas consulted and appreciate follow up and final plan for PEG replacement PENDING. PEG site with dressing in place and OFF PEG for now. NGT placed and Tube feeds started 05/18 and being tolerated at 45 cc hr Glucerna 1.2 # Severe protein caloric malnutrition with Albumin 1.5 RD follow up # Thrombocytopenia Platelets down from 80 K to 64 K to 66 K ( OFF Heparin ) and improved to normal range. 05/17 dc heparin, use SCD, order US Liver, HIT Ab, HIV negative US legs to r.o dvt per [facility] policy # Hypokalemia Improved # Dementia Baseline # FULL CODE SW follow up to reach out to DPOA and consider change in code status due to high morbidity and risk of inpatient mortality. Paperwork completed for superior court of the [facility] for request of tracheostomy and gastrostomy placement due to medical need on 05/26/20 Bioethic consult requested and spoke with Dr. Hung from ethics and I agree with his assessment that the patient quality of life will NOT IMPROVE with tracheostomy and replacement of PEG. The patient is very limited due to her underlying dementia and now unable to wean off the ventilator. Terminal extu bation and DNR is medically recommended and will await court decision on the matter. > 50 min spent in coordination of care and consultation with physicians and RN. Jessica Wade MD May 27, 2020 14:52
--- NOTE | 2020-05-27 14:54 | NUR ---
CASE MANAGEMENT:REVIEW 05/27/20 SI; SEPSIS. COVID (+) . NOW BACK ON MECHANICAL VENT 98.6 57 17 143/67 100% ON MECHANICAL VENT FiO2 40% H/H 9.9/28.9 CA+ 7.9 BUN 31 IS; IVF NS @ 75 ML/HR PRO-AMATINE PO TID ICU STATUS DCP: WESTERN CONV WHEN STABLE PLAN: PATIENT ABLE TO TOLERATE T-PIECE FOR SHORT TIME BACK ON MECHANICAL VENT TITRATING OFF VENT SUPPORT MEDS WBC MONITORING ~INCREASING UNABLE TO EXTUBATE D/T POOR MENTAL STATUS RECOMMENDATION TRACH NEEDS NEW PEG PLACEMENT NOT ABLE TO MAINTAIN AIRWAY
--- NOTE | 2020-05-27 15:08 | General Progress Note ---
Progress Note Progress Note Bioethics Committee After posting my last note I discussed this patient with with Dr. Wade. She is intubated as a result COVID-19 pneumonia acquired in a fpc. Her pre- morbid status was nonverbal with dementia x years. It is Dr. Wade' opinion, with which we agree, that further aggressive care is futile including the placement of a tracheostomy and gastrostomy would result in artificially y prolonging her life without any improvement in her quality of life. We think it would be in the patient';s best interest to discontinue aggressive care including controlled ventilation and NG tube feedings. Terminal extubation would be reasonable given the gravity of her COVID-19 illness, and very limited potential for recovery of quality of life. Discussed with Dr. Wade, Talib Diaz M.D. (Bioethics Committe), and social services. Teddy Valverde M.D. Teddy Valverde MD May 27, 2020 15:08
--- NOTE | 2020-05-27 15:36 | NUR ---
CLINICAL UNIT COORDINATOR NOTE Please refer Dr. Valverde's note for bioethics meeting. Bioethics committee is in agreement w/ Dr. Wade's recommendation.
--- NOTE | 2020-05-27 16:00 | NUR ---
NURSE NOTES: Found ETT partially out at 17cm at the lip with pt's right hand on ETT. Pt not getting volumes. ET tube was repositioned by RT, and chest xray was done, which confirmed tube is not in. Dr. Wade was notified, and ER MD contacted by DR Wade to re-intubate the pt. RT remains at bedside. NGT was found to be partially out. NGT was replaced, 16F at right nare, and KUB ordered for confirmation. Bilateral soft wrist restraints were placed on pt for safety, as pt is noted to be impulsive. Order in place for restraints. Skin and vascular integrity at restraint site is currently within normal limits.
--- NOTE | 2020-05-27 16:15 | NUR ---
RESPIRATORY NOTE: Found ETT partially out 17cm at the lip. Pt not getting volumes. Repositioned tube, chest xray confirmed tube is not in. Dr. Wade made aware by SARA Green, Dr. Wadeto call ER Doctor. SARA Green at bedside.
--- NOTE | 2020-05-27 16:54 | NUR ---
[place] ATTENDANT NOTE MARIELLA faxed the physician's form to Deputy Lucio. [phone]. MARIELLA will continue to F/U.
--- NOTE | 2020-05-27 17:20 | NUR ---
RESPIRATORY NOTE: Successfully reintubated by ER Doctor Colin Jones, ETT 7.5, 23cm at the lip, continue with the current settings SIMV 8 500 40% +5 PS 8. Getting good volumes. SARA Green at bedside.
--- NOTE | 2020-05-27 18:00 | NUR ---
NURSE NOTES: Pt was successfully reintubated by ER Doctor Colin Jones, ETT 7.5, 23cm at the lip, continue with the current settings SIMV 8 500 40% +5 PS 8. Getting good volumes. Chest xray confirmed placement. KUB confirmed placement of NGT. Pt had BM x1, large, soft, formed/pasty, brown. Pt was cleaned, wound dressings were changed, gown/bed linens were changed. Pt was repositioned with bilateral extremities elevated on pillows. Bilateral soft wrist restraints remain in place for pt safety to prevent self-extubation.
--- NOTE | 2020-05-27 18:01 | Emergency Room Report ---
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 - UNK COVID-19 Screening: Positive COVID-19 COVID-19 Testing Source: unk Nursing Documentation-PMH Hx Hypertension: Yes Hx Asthma: Yes Hx Diabetes: Yes Hx Cerebrovascular Accident: Yes Hx Dementia: Yes Hx Dysphasia: Yes Physical Exam Vital Signs Date Time Temp Pulse Resp B/P (MAP) Pulse Ox O2 Delivery O2 Flow Rate FiO2 05/23/20 07:00 62 14 108/54 (72) 99 05/23/20 08:00 40 05/23/20 08:00 Mechanical Ventilator 05/23/20 08:00 98.3 05/23/20 12:25 12.0 Procedures Intubation Intubation : Consent: Emergent Intubation Method: orotracheal Tube Size (cm): 7.5 Medications: Etomidate Breath Sounds after Intubation: equal Intubation Complications: no complications Post Intubation Xray: Yes Attempts: One Patient Tolerated: Well Complications: None Medical Decision Making Diagnostic Impression: Primary Impression: COVID-19 Additional Impressions: Elevated d-dimer Hypernatremia Renal failure Respiratory failure Sepsis Rapid atrial fibrillation ER Course Total critical care time: Approximately 15 minutes Due to a high probability of clinically significant, life threatening deterioration, the patient required the highest level of preparedness to intervene emergently and I personally spent this critical care time directly and personally managing the patient. This critical care time included obtaining a history, examining the patient, pulse oximetry, ordering and reviewing studies, ordering treatments, evaluating response to treatment and updating management plan as needed, frequent reassessment and discussion with other providers as well as arranging for ultimate disposition. This critical to care time was performed to assess and manage the high probability of life-threatening deterioration that could result in multiorgan failure. This critical care time is separate from the separately billable procedures and treating other patients. I was called to the patient's bedside because the patient had self extubated. When I arrived in the ICU the patient appeared to be in some mild respiratory distress but had normal oxygen saturation. On initial evaluation the tip of the endotracheal tube was sitting outside of the patient's vocal cords. Patient was given etomidate only without any paralytic with successful first-pass attempt at intubation orotracheally using the glide scope. 7.5 ETT used. Positive color change and equal breath sounds. Postintubation chest x-ray was ordered. Chest x-ray showed tip of endotracheal tube approximately 3 cm above the awa in good position. Last Vital Signs Date Time Temp Pulse Resp B/P (MAP) Pulse Ox O2 Delivery O2 Flow Rate FiO2 05/27/20 17:52 135/67 05/27/20 14:00 67 20 97 05/27/20 12:00 40 05/27/20 12:00 98.6 05/27/20 12:00 Mechanical Ventilator 05/24/20 12:25 12.0 Disposition: ADMITTED INPATIENT Condition: Critical Referrals: Jessica Wade MD (PCP) Colin Jones M.D. May 27, 2020 18:01
--- NOTE | 2020-05-27 18:01 | Diagnostic Imaging Report ---
EXAM: XR Chest, 1 View CLINICAL HISTORY: MALPOSING TECHNIQUE: Frontal view of the chest. COMPARISON: 05/26/2020 at 0832 hrs. FINDINGS: Lungs: Previously seen left lung atelectasis has nearly completely resolved. Retrocardiac atelectasis without or with some component of consolidation. Low lung volumes with bronchovascular crowding. Pleural space: Small bilateral pleural effusions. No pneumothorax. Heart: Unremarkable. No cardiomegaly. Mediastinum: Unremarkable. Bones/joints: No acute abnormality Tubes, lines and devices: Enteric tube with tip and proximal sideport below the gastroesophageal junction. Right IJ approach central venous catheter, tip in the right atrium. Other findings: This study was obtained on 05/27/2020 at 1627 hrs. A subsequent radiograph was presented simultaneously, please see subsequent report for most current assessment. Interval extubation. IMPRESSION: 1. This study was obtained on 05/27/2020 at 1627 hrs. 2. A subsequent radiograph was presented simultaneously, please see subsequent report for most current assessment. 3. Interval extubation. 4. Enteric tube with tip and proximal sideport below the gastroesophageal junction. 5. Right IJ approach central venous catheter, tip in the right atrium. 6. Previously seen left lung atelectasis has nearly completely resolved. 7. Small bilateral pleural effusions. 8. Retrocardiac atelectasis without or with some component of consolidation. 9. Low lung volumes with bronchovascular crowding.
--- NOTE | 2020-05-27 18:04 | Diagnostic Imaging Report ---
EXAM: XR Chest, 1 View CLINICAL HISTORY: TUBE PLCAL TECHNIQUE: Frontal view of the chest. COMPARISON: 05/27/2020 at 1627 hrs. FINDINGS: Lungs: Persistently low lung volumes with bronchovascular crowding. Mildly increased bibasilar and retrocardiac atelectasis without or with consolidation since prior study. Pleural space: Increasing bilateral pleural effusions. No pneumothorax. Heart: Unremarkable. No cardiomegaly. Mediastinum: Unremarkable. Bones/joints: No acute abnormality Tubes, lines and devices: Intubation, ETT 2.0 cm above awa. Enteric tube with tip and proximal sideport below the gastroesophageal junction. Right IJ approach central venous catheter, tip in the right atrium, unchanged from prior. Other findings: This study was obtained on 05/27/2020 at 1722 hrs. IMPRESSION: 1. This study was obtained on 05/27/2020 at 1722 hrs. 2. Intubation, ETT 2.0 cm above awa. 3. Enteric tube with tip and proximal sideport below the gastroesophageal junction. 4. Right IJ approach central venous catheter, tip in the right atrium, unchanged from prior. 5. Recommend retraction of right IJ central venous catheter 5-6 cm unless intra-atrial positioning is clinically desired. 6. Persistently low lung volumes with bronchovascular crowding. 7. Increasing bilateral pleural effusions. 8. Mildly increased bibasilar and retrocardiac atelectasis without or with consolidation since prior study.
--- NOTE | 2020-05-27 19:30 | NUR ---
NURSE HAND-OFF REPORT: Latest Vital Signs: BP 142/78, P=65, R=19, Temp 98.8F axillary. ETT 7.5 at 23cm lipline with vent settings SIMV-8, PS8, VT500, Peep 5, FIO2 40% at O2Sat 100%. 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 Rhythm change?: N MD Notified?: Marcella Peterson (covering for [facility]) Response: No New Orders Received Latest Garza Fall Score: 50 Fall Risk: High Risk Safety Measures: Call light Within Reach, Bed Alarm Zone 1, Side Rails Side Rails x2, Bed position Low and Locked. Fall Precautions: Door Sign Bilateral soft wrist restraints remain in place for pt safety to prevent self-extubation. Report given to Yeni RUIZ. Endorsed plan of care.
[2020-05-27] MEDS: Dyna-Hex 2% Top Sol 2oz TOPIC SCH (20:00)
--- NOTE | 2020-05-27 20:00 | NUR ---
NURSE NOTES: received report chepe artis po awake oral intubated -vent o2 sat 99 % no acute resp distress noted ivinfusing well site goob on camryn soft restraint non complaint tolerating tube feeding
[2020-05-28] VITALS (22 sets, daily range): BP systolic 105–151; BP diastolic 58–94
--- NOTE | 2020-05-28 | NUR ---
NURSE NOTES: bs 10o no insulin coverage
[2020-05-28] MEDS: Vasopressin 100 UNITS in NS 95 ML IV SCH (00:15)
[2020-05-28] MEDS: Phenylephrine 100 MG in D5W 240 ML IV SCH (00:15)
--- NOTE | 2020-05-28 04:00 | NUR ---
NURSE NOTES: complete bed bath and wound care done
--- NOTE | 2020-05-28 04:53 | NUR ---
NURSE HAND-OFF REPORT: Latest Vital Signs: Temperature 99.0 , Pulse 56 , B/P 117 /60 , Respiratory Rate 8 , O2 SAT 100 , Mechanical Ventilator, O2 Flow Rate 12.0 . Vital Sign Comment: EKG Rhythm: Sinus Bradycardia Rhythm change?: N MD Notified?: Y -Dr Peterson (covering for [facility]) Response: No New Orders Received Latest Garaz Fall Score: 50 Fall Risk: High Risk Safety Measures: Call light Within Reach, Bed Alarm Zone 1, Side Rails Side Rails x2, Bed position Low and Locked. Fall Precautions: Door Sign Report given to danette bustamante
[2020-05-28 05:43] LABS: HEMATOCRIT 27.8 % (37.0-47.0); HEMOGLOBIN 9.6 G/DL (12.0-16.0); MEAN CORPUSCULAR VOLUME 91 FL (80-99); PLATELET COUNT 193 K/UL (150-450); RED BLOOD COUNT 3.06 M/UL (4.20-5.40); RED CELL DISTRIBUTION WIDTH 14.2 % (11.6-14.8); WHITE BLOOD COUNT 7.2 K/UL (4.8-10.8)
[2020-05-28] MEDS: NovoLOG Insulin Flexpen SUBQ SCH ×4 (06:00→18:00)
--- NOTE | 2020-05-28 06:00 | NUR ---
NURSE NOTES: bs 138 no insulin coverage
[2020-05-28 06:27] LABS: ANION GAP 7 mmol/L (5-15); BLOOD UREA NITROGEN 26 mg/dL (7-18); CALCIUM 8.1 MG/DL (8.5-10.1); CARBON DIOXIDE 28 MMOL/L (21-32); CHLORIDE 108 MMOL/L (98-107); CREATININE 0.5 MG/DL (0.55-1.30); POTASSIUM 3.9 MMOL/L (3.5-5.1); SODIUM 143 MMOL/L (136-145)
--- NOTE | 2020-05-28 07:15 | NUR ---
NURSE NOTES: Report received from Gadiel RUIZ.Pt resting in bed asleep noted no resp distress ,orally intubated,ETT 7.5 ,lip line 23 cm,SIMV 8,PS 8,TV 500, FIO24%,PEEP 5,NGTF Glucerna 1.2 at 60 ml/hr no residual noted,Arauz cath draining yellow urine,skin warm and dry IVF to Rt IJ TLC site intact,SR up x2 HOB elevated bed lock in lowest position ,will continue with plans of care.
--- NOTE | 2020-05-28 09:00 | NUR ---
NURSE NOTES: Oral care done,pt resistive to care,bilat soft wrist restraints in placed.
[2020-05-28] MEDS: Pantoprazole Inj IV SCH (09:47)
[2020-05-28] MEDS: Midodrine 10mg tab ORAL SCH ×3 (09:47→18:00)
--- NOTE | 2020-05-28 09:54 | General Progress Note ---
Subjective ROS Limited/Unobtainable: Yes Allergies: Coded Allergies: DIVALPROEX SODIUM (Verified Allergy, Unknown, 05/14/20) PENICILLINS (Verified Allergy, Unknown, 05/14/20) Subjective events noted and interval notes reviewed glucose values are stable Item Value Date Time Bedside Blood Glucose 138 mg/dl H 05/28/20 0600 Bedside Blood Glucose 102 mg/dl 05/28/20 0000 Bedside Blood Glucose 108 mg/dl 05/27/20 1800 Bedside Blood Glucose 125 mg/dl H 05/27/20 1200 Bedside Blood Glucose 142 mg/dl H 05/27/20 0600 Objective Last 24 Hour Vital Signs Date Time Temp Pulse Resp B/P (MAP) Pulse Ox O2 Delivery O2 Flow Rate FiO2 05/28/20 07:25 58 10 40 05/28/20 06:30 60 14 05/28/20 06:00 56 8 117/60 (79) 100 05/28/20 05:00 62 17 123/65 (84) 100 05/28/20 04:26 60 14 124/64 (84) 99 05/28/20 04:25 99.0 58 14 120/60 (80) 100 05/28/20 04:00 56 05/28/20 04:00 Mechanical Ventilator 05/28/20 04:00 40 05/28/20 04:00 62 14 113/58 (76) 100 05/28/20 03:14 73 20 40 05/28/20 00:15 63 113/56 05/28/20 00:00 Mechanical Ventilator 05/28/20 00:00 40 05/28/20 00:00 60 05/27/20 23:00 62 15 130/69 (89) 100 05/27/20 22:22 63 14 40 05/27/20 22:00 62 14 128/75 (92) 100 05/27/20 21:00 60 15 126/66 (86) 100 05/27/20 20:00 98.5 64 17 142/78 (99) 100 05/27/20 20:00 40 05/27/20 20:00 75 05/27/20 20:00 Mechanical Ventilator 05/27/20 19:23 66 16 40 05/27/20 19:00 66 19 143/81 (101) 100 05/27/20 18:00 64 17 130/65 (86) 100 05/27/20 17:52 135/67 05/27/20 17:20 40 18 40 05/27/20 17:00 65 16 146/73 (97) 100 05/27/20 16:00 40 05/27/20 16:00 74 05/27/20 16:00 98.6 73 19 144/73 (96) 100 05/27/20 16:00 Mechanical Ventilator 05/27/20 15:00 62 20 132/68 (89) 98 05/27/20 14:00 67 20 135/67 (89) 97 05/27/20 13:00 65 18 137/71 (93) 99 05/27/20 12:00 73 05/27/20 12:00 40 05/27/20 12:00 98.6 57 17 143/67 (92) 100 05/27/20 12:00 Mechanical Ventilator 05/27/20 11:00 45 15 133/66 (88) 100 05/27/20 10:35 62 20 40 05/27/20 10:00 52 17 132/65 (87) 97 Intake and Output 05/27/20 05/28/20 19:00 07:00 Intake Total 1745 ml 1600 ml Output Total 720 ml 660 ml Balance 1025 ml 940 ml Free Water 200 ml 100 ml IV Total 825 ml 900 ml Tube Feeding 720 ml 600 ml Output Urine Total 720 ml 660 ml # Bowel Movements 2 2 Laboratory Tests 05/28/20 04:00: White Blood Count 7.2, Red Blood Count 3.06L, Hemoglobin 9.6L, Hematocrit 27.8L, Mean Corpuscular Volume 91, Mean Corpuscular Hemoglobin 31.4H, Mean Corpuscular Hemoglobin Concent 34.6, Red Cell Distribution Width 14.2, Platelet Count 193, Mean Platelet Volume 8.7, Neutrophils (%) (Auto) , Lymphocytes (%) (Auto) , Monocytes (%) (Auto) , Eosinophils (%) (Auto) , Basophils (%) (Auto) , Neutrophils % (Manual) [Pending], Lymphocytes % (Manual) [Pending], Platelet Estimate [Pending], Platelet Morphology [Pending], Sodium Level 143, Potassium Level 3.9, Chloride Level 108H, Carbon Dioxide Level 28, Anion Gap 7, Blood Urea Nitrogen 26H, Creatinine 0.5L, Estimat Glomerular Filtration Rate > 60, Glucose Level 113H, Calcium Level 8.1L Height (Feet): 5 Height (Inches): 4.00 Weight (Pounds): 149 Objective Current Medications Medications (Trade) Dose Ordered Sig/Morgan Route PRN Reason Start Time Stop Time Status Last Admin Dose Admin Acetaminophen (Tylenol) 650 mg Q4H PRN GT Temp >100.5 05/16/20 06:15 06/15/20 06:14 05/21/20 20:01 Acetaminophen (Tylenol) 650 mg Q4H PRN RECTAL Temp >100.5 05/16/20 19:45 06/15/20 19:44 05/17/20 18:30 Chlorhexidine Gluconate (Lilliam-Hex 2%) 1 applic DAILY@2000 TOPIC 05/15/20 20:00 08/13/20 19:59 05/27/20 20:00 Dextrose (Dextrose 50%) 25 ml Q30M PRN IV Hypoglycemia 05/22/20 00:00 08/20/20 00:00 Dextrose (Dextrose 50%) 50 ml Q30M PRN IV Hypoglycemia 05/22/20 00:00 08/20/20 00:00 Insulin Aspart (NovoLOG) EVERY 6 HOURS SUBQ 05/22/20 06:00 08/20/20 05:59 05/27/20 05:57 Midodrine (Pro-Amatine) 10 mg TID ORAL 05/23/20 09:00 08/21/20 08:59 05/28/20 09:47 Norepinephrine Bitartrate 8 mg/ Dextrose 250 ml @ 0 mls/hr Q24H IV 05/20/20 18:00 06/19/20 17:59 05/22/20 05:45 Pantoprazole (Protonix) 40 mg DAILY IV 05/15/20 09:00 06/14/20 08:59 05/28/20 09:47 Phenylephrine HCl 100 mg/Dextrose 250 ml @ 0 mls/hr Q24H IV 05/15/20 00:15 06/14/20 00:14 05/15/20 13:28 Sodium Chloride 1,000 ml @ 75 mls/hr [id number] IV 05/15/20 06:45 06/14/20 06:44 05/27/20 21:12 Vasopressin 100 units/Sodium Chloride 100 ml @ 0 mls/hr Q24H IV 05/15/20 00:15 06/14/20 00:14 Zinc Oxide (Zinc Oxide) 1 applic TIDPRN PRN TOPIC Abdominal cramps 05/20/20 13:00 08/18/20 12:59 Assessment/Plan Problem List: (1) COVID-19 ICD Codes: U07.1 - COVID-19 SNOMED: 352398137 (2) Elevated d-dimer ICD Codes: R79.89 - Other specified abnormal findings of blood chemistry SNOMED: 969541211 (3) Rapid atrial fibrillation ICD Codes: I48.91 - Unspecified atrial fibrillation SNOMED: 164028653 (4) Sepsis ICD Codes: A41.9 - Sepsis, unspecified organism SNOMED: 55052256 (5) Respiratory failure ICD Codes: J96.90 - Respiratory failure, unspecified, unspecified whether with hypoxia or hypercapnia SNOMED: 001818022 (6) Renal failure ICD Codes: N19 - Unspecified kidney failure SNOMED: 79548941 (7) Hypernatremia ICD Codes: E87.0 - Hyperosmolality and hypernatremia SNOMED: 884941729 (8) T2DM (type 2 diabetes mellitus) ICD Codes: E11.9 - Type 2 diabetes mellitus without complications SNOMED: 75604113 Status: stable Assessment/Plan: no need for Levemir continue Novolog sliding scale every 6 hours hypoglycemia protocol in order Chau Shelley MD May 28, 2020 09:54
--- NOTE | 2020-05-28 09:58 | General Progress Note ---
Subjective ROS Limited/Unobtainable: No Allergies: Coded Allergies: DIVALPROEX SODIUM (Verified Allergy, Unknown, 05/14/20) PENICILLINS (Verified Allergy, Unknown, 05/14/20) Objective Last 24 Hour Vital Signs Date Time Temp Pulse Resp B/P (MAP) Pulse Ox O2 Delivery O2 Flow Rate FiO2 05/28/20 07:25 58 10 40 05/28/20 06:30 60 14 05/28/20 06:00 56 8 117/60 (79) 100 05/28/20 05:00 62 17 123/65 (84) 100 05/28/20 04:26 60 14 124/64 (84) 99 05/28/20 04:25 99.0 58 14 120/60 (80) 100 05/28/20 04:00 56 05/28/20 04:00 Mechanical Ventilator 05/28/20 04:00 40 05/28/20 04:00 62 14 113/58 (76) 100 05/28/20 03:14 73 20 40 05/28/20 00:15 63 113/56 05/28/20 00:00 Mechanical Ventilator 05/28/20 00:00 40 05/28/20 00:00 60 05/27/20 23:00 62 15 130/69 (89) 100 05/27/20 22:22 63 14 40 05/27/20 22:00 62 14 128/75 (92) 100 05/27/20 21:00 60 15 126/66 (86) 100 05/27/20 20:00 98.5 64 17 142/78 (99) 100 05/27/20 20:00 40 05/27/20 20:00 75 05/27/20 20:00 Mechanical Ventilator 05/27/20 19:23 66 16 40 05/27/20 19:00 66 19 143/81 (101) 100 05/27/20 18:00 64 17 130/65 (86) 100 05/27/20 17:52 135/67 05/27/20 17:20 40 18 40 05/27/20 17:00 65 16 146/73 (97) 100 05/27/20 16:00 40 05/27/20 16:00 74 05/27/20 16:00 98.6 73 19 144/73 (96) 100 05/27/20 16:00 Mechanical Ventilator 05/27/20 15:00 62 20 132/68 (89) 98 05/27/20 14:00 67 20 135/67 (89) 97 05/27/20 13:00 65 18 137/71 (93) 99 05/27/20 12:00 73 05/27/20 12:00 40 05/27/20 12:00 98.6 57 17 143/67 (92) 100 05/27/20 12:00 Mechanical Ventilator 05/27/20 11:00 45 15 133/66 (88) 100 05/27/20 10:35 62 20 40 05/27/20 10:00 52 17 132/65 (87) 97 Intake and Output 05/27/20 05/28/20 19:00 07:00 Intake Total 1745 ml 1600 ml Output Total 720 ml 660 ml Balance 1025 ml 940 ml Free Water 200 ml 100 ml IV Total 825 ml 900 ml Tube Feeding 720 ml 600 ml Output Urine Total 720 ml 660 ml # Bowel Movements 2 2 Laboratory Tests 05/28/20 04:00: White Blood Count 7.2, Red Blood Count 3.06L, Hemoglobin 9.6L, Hematocrit 27.8L, Mean Corpuscular Volume 91, Mean Corpuscular Hemoglobin 31.4H, Mean Corpuscular Hemoglobin Concent 34.6, Red Cell Distribution Width 14.2, Platelet Count 193, Mean Platelet Volume 8.7, Neutrophils (%) (Auto) , Lymphocytes (%) (Auto) , Monocytes (%) (Auto) , Eosinophils (%) (Auto) , Basophils (%) (Auto) , Neutrophi ls % (Manual) [Pending], Lymphocytes % (Manual) [Pending], Platelet Estimate [Pending], Platelet Morphology [Pending], Sodium Level 143, Potassium Level 3.9, Chloride Level 108H, Carbon Dioxide Level 28, Anion Gap 7, Blood Urea Nitrogen 26H, Creatinine 0.5L, Estimat Glomerular Filtration Rate > 60, Glucose Level 113H, Calcium Level 8.1L Height (Feet): 5 Height (Inches): 4.00 Weight (Pounds): 149 General Appearance: confused Neck: supple Cardiovascular: normal rate Respiratory/Chest: decreased breath sounds Abdomen: normal bowel sounds, non tender, soft Extremities: non-tender Assessment/Plan Status: stable Assessment/Plan: 1. History of CVA. 2. Dementia. 3. Dysphagia with G-tube. 4. Cachexia. 5. Diabetes. 6. Pressure ulcers. 7. Hypothyroidism. 8. Legal blindness. 9. Currently COVID positive. GT has trice removed NGTF GT replacement when more stable icu care fu [employer] recs fu labs Jhon Matos MD May 28, 2020 09:58
--- NOTE | 2020-05-28 10:59 | Cardiology Progress Note ---
Assessment/Plan Status: stable Assessment/Plan Assessment/Plan Assessment/Plan 1. [id number] myocardial infarction. Her troponin was 1.258,1.2,1.9, 3.4 and the down to 0.7 EKG does not show any acute ST-T wave abnormality and certainly no ST elevation. Due to septic shock, DCCV and Renal failure. The echocardiogram had poor windows. 2. PAF with RVR. S/P DCCV 3 times No more fib or accelerated junctional rhythm. Can not use beta-ramakrishna or calcium-channel ramakrishna as the patient is still on Levophed. Dig level is 1.6 Patient has converted to NSR 3. S/P Septic shock. Off Levophed, on Midodrine and antibiotic 4. Severe hypernatremia with sodium of 174, BUN of 131, creatinine 2.7 due to dehydration. Sodium is 155 with BUN of 91 and creatinine of 1.9 with IV fluids. 5. Lactic acidosis on antibiotic. 6. Dysphagia, status post PEG placement. GT has trice removed on 05/18 still some drainage from the GT site NGTF GT replacement when more stable per Dr Matos 7. History of CVA and dementia. 8. Respiratory failure, on T piece today Subjective Cardiovascular: Reports: no symptoms Respiratory: Reports: no symptoms Genitourinary: Reports: no symptoms Subjective [employer] Converted to normal sinus Objective Last 24 Hour Vital Signs Date Time Temp Pulse Resp B/P (MAP) Pulse Ox O2 Delivery O2 Flow Rate FiO2 05/28/20 10:00 61 15 122/62 (82) 100 05/28/20 09:00 60 13 114/65 (81) 100 05/28/20 08:00 98.7 56 14 107/58 (74) 100 05/28/20 08:00 Mechanical Ventilator 05/28/20 08:00 40 05/28/20 07:25 58 10 40 05/28/20 07:00 56 12 122/58 (79) 100 05/28/20 06:30 60 14 05/28/20 06:00 56 8 117/60 (79) 100 05/28/20 05:00 62 17 123/65 (84) 100 05/28/20 04:26 60 14 124/64 (84) 99 05/28/20 04:25 99.0 58 14 120/60 (80) 100 05/28/20 04:00 56 05/28/20 04:00 Mechanical Ventilator 05/28/20 04:00 40 05/28/20 04:00 62 14 113/58 (76) 100 05/28/20 03:14 73 20 40 05/28/20 00:15 63 113/56 05/28/20 00:00 Mechanical Ventilator 05/28/20 00:00 40 05/28/20 00:00 60 05/27/20 23:00 62 15 130/69 (89) 100 05/27/20 22:22 63 14 40 05/27/20 22:00 62 14 128/75 (92) 100 05/27/20 21:00 60 15 126/66 (86) 100 05/27/20 20:00 98.5 64 17 142/78 (99) 100 05/27/20 20:00 40 05/27/20 20:00 75 05/27/20 20:00 Mechanical Ventilator 05/27/20 19:23 66 16 40 05/27/20 19:00 66 19 143/81 (101) 100 05/27/20 18:00 64 17 130/65 (86) 100 05/27/20 17:52 135/67 05/27/20 17:20 40 18 40 05/27/20 17:00 65 16 146/73 (97) 100 05/27/20 16:00 40 05/27/20 16:00 74 05/27/20 16:00 98.6 73 19 144/73 (96) 100 05/27/20 16:00 Mechanical Ventilator 05/27/20 15:00 62 20 132/68 (89) 98 05/27/20 14:00 67 20 135/67 (89) 97 05/27/20 13:00 65 18 137/71 (93) 99 05/27/20 12:00 73 05/27/20 12:00 40 05/27/20 12:00 98.6 57 17 143/67 (92) 100 05/27/20 12:00 Mechanical Ventilator 05/27/20 11:00 45 15 133/66 (88) 100 General Appearance: no apparent distress, alert EENT: PERRL/EOMI, normal ENT inspection, TMs normal, pharynx normal Neck: non-tender, normal alignment, supple, normal inspection, no JVD Rhythm: NSR Cardiovascular: normal peripheral pulses, normal rate, regular rhythm Respiratory/Chest: chest wall non-tender, lungs clear, normal breath sounds, no respiratory distress, no accessory muscle use Abdomen: normal bowel sounds, non tender, soft, no organomegaly, no mass Extremities: normal range of motion, non-tender, normal inspection, no calf tenderness, no swelling 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 II-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 grossly normal, no motor/sensory deficits Intake and Output 05/27/20 05/28/20 19:00 07:00 Intake Total 1745 ml 1660 ml Output Total 720 ml 810 ml Balance 1025 ml 850 ml Free Water 200 ml 100 ml IV Total 825 ml 900 ml Tube Feeding 720 ml 660 ml Output Urine Total 720 ml 810 ml # Bowel Movements 2 2 Laboratory Tests Test 05/28/20 04:00 White Blood Count 7.2 K/UL (4.8-10.8) Red Blood Count 3.06 M/UL (4.20-5.40) L Hemoglobin 9.6 G/DL (12.0-16.0) L Hematocrit 27.8 % (37.0-47.0) L Mean Corpuscular Volume 91 FL (80-99) Mean Corpuscular Hemoglobin 31.4 PG (27.0-31.0) H Mean Corpuscular Hemoglobin Concent 34.6 G/DL (32.0-36.0) Red Cell Distribution Width 14.2 % (11.6-14.8) Platelet Count 193 K/UL (150-450) Mean Platelet Volume 8.7 FL (6.5-10.1) Neutrophils (%) (Auto) % (45.0-75.0) Lymphocytes (%) (Auto) % (20.0-45.0) Monocytes (%) (Auto) % (1.0-10.0) Eosinophils (%) (Auto) % (0.0-3.0) Basophils (%) (Auto) % (0.0-2.0) Neutrophils % (Manual) Pending Lymphocytes % (Manual) Pending Platelet Estimate Pending Platelet Morphology Pending Sodium Level 143 MMOL/L (136-145) Potassium Level 3.9 MMOL/L (3.5-5.1) Chloride Level 108 MMOL/L (98-107) H Carbon Dioxide Level 28 MMOL/L (21-32) Anion Gap 7 mmol/L (5-15) Blood Urea Nitrogen 26 mg/dL (7-18) H Creatinine 0.5 MG/DL (0.55-1.30) L Estimat Glomerular Filtration Rate > 60 mL/min (>60) Glucose Level 113 MG/DL (74-106) H Calcium Level 8.1 MG/DL (8.5-10.1) L Microbiology Date/Time Source Procedure Growth Status 05/26/20 12:15 Nasopharynx SARS-CoV-2 RdRp Gene Assay - Final Complete 05/25/20 18:00 Nasopharynx Coronavirus COVID-19 PCR ([facility]) - Final Complete 05/25/20 13:30 Urine,Clean Catch Urine Culture - Final NO GROWTH AFTER 48 HOURS Complete 05/25/20 13:30 Sputum Gram Stain - Final Resulted 05/25/20 13:30 Sputum Culture - Preliminary Pseudomonas Aeruginosa - Mdr Resulted 05/25/20 13:30 Blood Blood Culture - Preliminary NO GROWTH AFTER 24 HOURS Resulted 05/25/20 13:30 Blood Blood Culture - Preliminary NO GROWTH AFTER 24 HOURS Resulted Erasto Peterson MD May 28, 2020 10:59
--- NOTE | 2020-05-28 11:15 | NUR ---
NURSE NOTES: Dr Curtis Wade at bedside,updated re pt's status.
--- NOTE | 2020-05-28 11:57 | Pulmonology Progress Note ---
Subjective ROS Limited/Unobtainable: No Interval Events: Unable to extubtae due to poor mental status Constitutional: Reports: no symptoms HEENT: Repors: no symptoms Respiratory: Reports: no symptoms Cardiovascular: Reports: no symptoms Gastrointestinal/Abdominal: Reports: no symptoms Genitourinary: Reports: no symptoms Allergies: Coded Allergies: DIVALPROEX SODIUM (Verified Allergy, Unknown, 05/14/20) PENICILLINS (Verified Allergy, Unknown, 05/14/20) All Systems: reviewed and negative except above Objective Last 24 Hour Vital Signs Date Time Temp Pulse Resp B/P (MAP) Pulse Ox O2 Delivery O2 Flow Rate FiO2 05/28/20 11:34 59 13 40 05/28/20 11:00 64 19 145/64 (91) 100 05/28/20 10:00 61 15 122/62 (82) 100 05/28/20 09:00 60 13 114/65 (81) 100 05/28/20 08:00 98.7 56 14 107/58 (74) 100 05/28/20 08:00 Mechanical Ventilator 05/28/20 08:00 56 05/28/20 08:00 40 05/28/20 07:25 58 10 40 05/28/20 07:00 56 12 122/58 (79) 100 05/28/20 06:30 60 14 05/28/20 06:00 56 8 117/60 (79) 100 05/28/20 05:00 62 17 123/65 (84) 100 05/28/20 04:26 60 14 124/64 (84) 99 05/28/20 04:25 99.0 58 14 120/60 (80) 100 05/28/20 04:00 56 05/28/20 04:00 Mechanical Ventilator 05/28/20 04:00 40 05/28/20 04:00 62 14 113/58 (76) 100 05/28/20 03:14 73 20 40 05/28/20 00:15 63 113/56 05/28/20 00:00 Mechanical Ventilator 05/28/20 00:00 40 05/28/20 00:00 60 05/27/20 23:00 62 15 130/69 (89) 100 05/27/20 22:22 63 14 40 05/27/20 22:00 62 14 128/75 (92) 100 05/27/20 21:00 60 15 126/66 (86) 100 05/27/20 20:00 98.5 64 17 142/78 (99) 100 05/27/20 20:00 40 05/27/20 20:00 75 05/27/20 20:00 Mechanical Ventilator 05/27/20 19:23 66 16 40 05/27/20 19:00 66 19 143/81 (101) 100 05/27/20 18:00 64 17 130/65 (86) 100 05/27/20 17:52 135/67 05/27/20 17:20 40 18 40 05/27/20 17:00 65 16 146/73 (97) 100 05/27/20 16:00 40 05/27/20 16:00 74 05/27/20 16:00 98.6 73 19 144/73 (96) 100 05/27/20 16:00 Mechanical Ventilator 05/27/20 15:00 62 20 132/68 (89) 98 05/27/20 14:00 67 20 135/67 (89) 97 05/27/20 13:00 65 18 137/71 (93) 99 05/27/20 12:00 73 05/27/20 12:00 40 05/27/20 12:00 98.6 57 17 143/67 (92) 100 05/27/20 12:00 Mechanical Ventilator Intake and Output 05/27/20 05/28/20 19:00 07:00 Intake Total 1745 ml 1660 ml Output Total 720 ml 810 ml Balance 1025 ml 850 ml Free Water 200 ml 100 ml IV Total 825 ml 900 ml Tube Feeding 720 ml 660 ml Output Urine Total 720 ml 810 ml # Bowel Movements 2 2 General Appearance: no acute distress HEENT: normocephalic Respiratory: chest wall non-tender, lungs clear Cardiovascular: normal peripheral pulses, normal rate Abdomen: normal bowel sounds Microbiology Date/Time Source Procedure Growth Status 05/26/20 12:15 Nasopharynx SARS-CoV-2 RdRp Gene Assay - Final Complete 05/25/20 18:00 Nasopharynx Coronavirus COVID-19 PCR ([facility]) - Final Complete 05/25/20 13:30 Urine,Clean Catch Urine Culture - Final NO GROWTH AFTER 48 HOURS Complete 05/25/20 13:30 Sputum Gram Stain - Final Resulted 05/25/20 13:30 Sputum Culture - Preliminary Pseudomonas Aeruginosa - Mdr Resulted 05/25/20 13:30 Blood Blood Culture - Preliminary NO GROWTH AFTER 24 HOURS Resulted 05/25/20 13:30 Blood Blood Culture - Preliminary NO GROWTH AFTER 24 HOURS Resulted Laboratory Tests 05/28/20 04:00: White Blood Count 7.2, Red Blood Count 3.06L, Hemoglobin 9.6L, Hematocrit 27.8L, Mean Corpuscular Volume 91, Mean Corpuscular Hemoglobin 31.4H, Mean Corpuscular Hemoglobin Concent 34.6, Red Cell Distribution Width 14.2, Platelet Count 193, Mean Platelet Volume 8.7, Neutrophils (%) (Auto) , Lymphocytes (%) (Auto) , Monocytes (%) (Auto) , Eosinophils (%) (Auto) , Basophils (%) (Auto) , Differential Total Cells Counted 100, Neutrophils % (Manual) 94H, Lymphocytes % (Manual) 6L, Monocytes % (Manual) 0L, Eosinophils % (Manual) 0, Basophils % (Manual) 0, Band Neutrophils 0, Platelet Estimate Adequate, Platelet Morphology Normal, Red Blood Cell Morphology Normal, Sodium Level 143, Potassium Level 3.9, Chloride Level 108H, Carbon Dioxide Level 28, Anion Gap 7, Blood Urea Nitrogen 26H, Creatinine 0.5L, Estimat Glomerular Filtration Rate > 60, Glucose Level 113H, Calcium Level 8.1L Current Medications Medications (Trade) Dose Ordered Sig/Morgan Route PRN Reason Start Time Stop Time Status Last Admin Dose Admin Acetaminophen (Tylenol) 650 mg Q4H PRN GT Temp >100.5 05/16/20 06:15 06/15/20 06:14 05/21/20 20:01 Acetaminophen (Tylenol) 650 mg Q4H PRN RECTAL Temp >100.5 05/16/20 19:45 06/15/20 19:44 05/17/20 18:30 Chlorhexidine Gluconate (Lillima-Hex 2%) 1 applic DAILY@1999 TOPIC 05/15/20 20:00 08/13/20 19:59 05/27/20 20:00 Dextrose (Dextrose 50%) 25 ml Q30M PRN IV Hypoglycemia 05/22/20 00:00 08/20/20 00:00 Dextrose (Dextrose 50%) 50 ml Q30M PRN IV Hypoglycemia 05/22/20 00:00 08/20/20 00:00 Insulin Aspart (NovoLOG) EVERY 6 HOURS SUBQ 05/22/20 06:00 08/20/20 05:59 05/27/20 05:57 Midodrine (Pro-Amatine) 10 mg TID ORAL 05/23/20 09:00 08/21/20 08:59 05/28/20 09:47 Norepinephrine Bitartrate 8 mg/ Dextrose 250 ml @ 0 mls/hr Q24H IV 05/20/20 18:00 06/19/20 17:59 05/22/20 05:45 Pantoprazole (Protonix) 40 mg DAILY IV 05/15/20 09:00 06/14/20 08:59 05/28/20 09:47 Phenylephrine HCl 100 mg/Dextrose 250 ml @ 0 mls/hr Q24H IV 05/15/20 00:15 06/14/20 00:14 05/15/20 13:28 Sodium Chloride 1,000 ml @ 75 mls/hr [id number] IV 05/15/20 06:45 06/14/20 06:44 05/28/20 09:56 Vasopressin 100 units/Sodium Chloride 100 ml @ 0 mls/hr Q24H IV 05/15/20 00:15 06/14/20 00:14 Zinc Oxide (Zinc Oxide) 1 applic TIDPRN PRN TOPIC Abdominal cramps 05/20/20 13:00 08/18/20 12:59 Assessment/Plan Assessment/Plan IMPRESSION: 1. Acute respiratory failure. 2. Diabetes mellitus with hyperglycemia. 3. Septic shock. 4. Chronic G-tube. 5. Decubitus. 6. History of CHF. DISCUSSION: Continue fluids and antibiotics. Pressors prn Now on T piece On 40% FiO2 DVT and GI prophylaxis. Respiratory precautions due to COVID-[address] Wade. I will follow carefully. Decadron continuing Mental status better however unsafe to extubate Will not be able to maintain airway Recommend trach Needs new PEG Richard James Omar Syed MD May 28, 2020 11:57
--- NOTE | 2020-05-28 11:58 | General Progress Note ---
Subjective Date patient seen: May 28, 2020 Time patient seen: 12:00 ROS Limited/Unobtainable: Yes Allergies: Coded Allergies: DIVALPROEX SODIUM (Verified Allergy, Unknown, 05/14/20) PENICILLINS (Verified Allergy, Unknown, 05/14/20) All Systems: reviewed and negative except above Subjective Non verbal, intubated Objective Last 24 Hour Vital Signs Date Time Temp Pulse Resp B/P (MAP) Pulse Ox O2 Delivery O2 Flow Rate FiO2 05/28/20 11:34 59 13 40 05/28/20 11:00 64 19 145/64 (91) 100 05/28/20 10:00 61 15 122/62 (82) 100 05/28/20 09:00 60 13 114/65 (81) 100 05/28/20 08:00 98.7 56 14 107/58 (74) 100 05/28/20 08:00 Mechanical Ventilator 05/28/20 08:00 56 05/28/20 08:00 40 05/28/20 07:25 58 10 40 05/28/20 07:00 56 12 122/58 (79) 100 05/28/20 06:30 60 14 05/28/20 06:00 56 8 117/60 (79) 100 05/28/20 05:00 62 17 123/65 (84) 100 05/28/20 04:26 60 14 124/64 (84) 99 05/28/20 04:25 99.0 58 14 120/60 (80) 100 05/28/20 04:00 56 05/28/20 04:00 Mechanical Ventilator 05/28/20 04:00 40 05/28/20 04:00 62 14 113/58 (76) 100 05/28/20 03:14 73 20 40 05/28/20 00:15 63 113/56 05/28/20 00:00 Mechanical Ventilator 05/28/20 00:00 40 05/28/20 00:00 60 05/27/20 23:00 62 15 130/69 (89) 100 05/27/20 22:22 63 14 40 05/27/20 22:00 62 14 128/75 (92) 100 05/27/20 21:00 60 15 126/66 (86) 100 05/27/20 20:00 98.5 64 17 142/78 (99) 100 05/27/20 20:00 40 05/27/20 20:00 75 05/27/20 20:00 Mechanical Ventilator 05/27/20 19:23 66 16 40 05/27/20 19:00 66 19 143/81 (101) 100 05/27/20 18:00 64 17 130/65 (86) 100 05/27/20 17:52 135/67 05/27/20 17:20 40 18 40 05/27/20 17:00 65 16 146/73 (97) 100 05/27/20 16:00 40 05/27/20 16:00 74 05/27/20 16:00 98.6 73 19 144/73 (96) 100 05/27/20 16:00 Mechanical Ventilator 05/27/20 15:00 62 20 132/68 (89) 98 05/27/20 14:00 67 20 135/67 (89) 97 05/27/20 13:00 65 18 137/71 (93) 99 05/27/20 12:00 73 05/27/20 12:00 40 05/27/20 12:00 98.6 57 17 143/67 (92) 100 05/27/20 12:00 Mechanical Ventilator Intake and Output 05/27/20 05/28/20 19:00 07:00 Intake Total 1745 ml 1660 ml Output Total 720 ml 810 ml Balance 1025 ml 850 ml Free Water 200 ml 100 ml IV Total 825 ml 900 ml Tube Feeding 720 ml 660 ml Output Urine Total 720 ml 810 ml # Bowel Movements 2 2 Laboratory Tests 05/28/20 04:00: White Blood Count 7.2, Red Blood Count 3.06L, Hemoglobin 9.6L, Hematocrit 27.8L, Mean Corpuscular Volume 91, Mean Corpuscular Hemoglobin 31.4H, Mean Corpuscular Hemoglobin Concent 34.6, Red Cell Distribution Width 14.2, Platelet Count 193, Mean Platelet Volume 8.7, Neutrophils (%) (Auto) , Lymphocytes (%) (Auto) , Monocytes (%) (Auto) , Eosinophils (%) (Auto) , Basophils (%) (Auto) , Differential Total Cells Counted 100, Neutrophils % (Manual) 94H, Lymphocytes % (Manual) 6L, Monocytes % (Manual) 0L, Eosinophils % (Manual) 0, Basophils % (Manual) 0, Band Neutrophils 0, Platelet Estimate Adequate, Platelet Morphology Normal, Red Blood Cell Morphology Normal, Sodium Level 143, Potassium Level 3.9, Chloride Level 108H, Carbon Dioxide Level 28, Anion Gap 7, Blood Urea Nitrogen 26H, Creatinine 0.5L, Estimat Glomerular Filtration Rate > 60, Glucose Level 113H, Calcium Level 8.1L Height (Feet): 5 Height (Inches): 4.00 Weight (Pounds): 149 General Appearance: WD/WN EENT: PERRL/EOMI Neck: non-tender Cardiovascular: normal rate Respiratory/Chest: decreased breath sounds Abdomen: non tender Extremities: normal range of motion 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 # Septic with element of cardiogenic shock Etiology COVID 19 vs UTI vs bacteremia / contaminant and NSTEMI Bcx POSITIVE WITH G+ Cocci and U cx 05/14 Proteus Mirabillis Continue Meropenem DAY 08/22 Vancomycin stopped stopped Cefepime Dexamethasone due to hypoxia on day 10 now stopped. Leukocytosis improved. # Acute respiratory failure Intubated and not ready to wean off. Self extubated 05/27 and re intubated by ED MD successfully. ICU care appreciated Dr. Enriquez consulted Ventilator management per ICU-pulmonary FiO2 45 % today. T piece. Medically tracheostomy is needed as she is not tolerating wean off. Overall, her quality of life will not improve from prior baseline with advanced dementia. Will need permanent ventilator support via tracheostomy and subacute level of care. # SVT vs A. Flutter s/p DC x 3 # NSTEMI HR is controlled in the 100 range and tolerating Digoxin Vasopressors in place Levophed at [address] Morillo requested and TTE requested and poor window. Limited due to covid positive Troponin 3.4 now 0.7 EKG 05/17 NSR # AG metabolic acidosis Ddx lactic acidosis Improved. # Hyperglycemia r/o DKA ABG and Ketones negative Endocrine consult with Dr. Shelley IV insulin gtt stopped and in SQ insulin coverage now # Hypernatremia Improving Monitor BMP IVF to 1/2 NS lower rate 75 cc hr continue # COVID 19 Positive on admission. Original infection > 15 days ago, do not qualify for Revdisimir or plasma On Dexamethasone completed 10 day course Contact and droplet isolation # Dysphagia PEG REMOVED 05/16 Carlo Vargas consulted and appreciate follow up and final plan for PEG replacement PENDING. PEG site with dressing in place and OFF PEG for now. NGT placed and Tube feeds started 05/18 and being tolerated at 45 cc hr Glucerna 1.2 # Severe protein caloric malnutrition with Albumin 1.5 RD follow up # Thrombocytopenia Platelets down from 80 K to 64 K to 66 K ( OFF Heparin ) and improved to normal range. 05/17 dc heparin, use SCD, order US Liver, HIT Ab, HIV negative US legs to r.o dvt per [facility] policy # Hypokalemia Improved # Dementia Baseline # FULL CODE SW follow up to reach out to DPOA and consider change in code status due to high morbidity and risk of inpatient mortality. Paperwork completed for superior court of the [facility] for request of tracheostomy and gastrostomy placement due to medical need on 05/26/20 Bioethic consult requested and spoke with Dr. Hung from ethics and I agree with his assessment that the patient quality of life will NOT IMPROVE with tracheostomy and replacement of PEG. The patient is very limited due to her underlying dementia and now unable to wean off the ventilator. Terminal extubation and DNR is medically recommended and will await court decision on the matter. > 50 min spent in coordination of care and consultation with physicians and RN. Jessica Wade MD May 28, 2020 11:58
[2020-05-28] MEDS ORDERED: Sterile Water Irrig 1000ml IRRIG ONE (12:11)
[2020-05-28] MEDS ORDERED: Tubing Blood Filter IV ONE (12:11)
[2020-05-28] MEDS ORDERED: 1/2 NS 1000ml IV ONE (12:11)
[2020-05-28] MEDS ORDERED: D5NS 1000ml IV ONE (12:11)
[2020-05-28] MEDS ORDERED: NS 275ml ONE (12:11)
--- NOTE | 2020-05-28 13:00 | NUR ---
NURSE NOTES: Pt turned and repositioned,HOB elevated 30 deg,no sob presented.
--- NOTE | 2020-05-28 14:54 | Surgery Progress Note ---
Surgery Progress Note Subjective Additional Comments afebrile HD stable labs okay no n/v on support Objective Last 24 Hour Vital Signs Date Time Temp Pulse Resp B/P (MAP) Pulse Ox O2 Delivery O2 Flow Rate FiO2 05/28/20 14:03 57 17 130/79 (96) 99 05/28/20 13:00 64 18 127/69 (88) 99 05/28/20 12:00 63 05/28/20 12:00 98.5 6 14 142/75 (97) 95 05/28/20 12:00 Mechanical Ventilator 05/28/20 12:00 40 05/28/20 11:34 59 13 40 05/28/20 11:00 64 19 145/64 (91) 100 05/28/20 10:00 61 15 122/62 (82) 100 05/28/20 09:00 60 13 114/65 (81) 100 05/28/20 08:00 98.7 56 14 107/58 (74) 100 05/28/20 08:00 Mechanical Ventilator 05/28/20 08:00 56 05/28/20 08:00 40 05/28/20 07:25 58 10 40 05/28/20 07:00 56 12 122/58 (79) 100 05/28/20 06:30 60 14 05/28/20 06:00 56 8 117/60 (79) 100 05/28/20 05:00 62 17 123/65 (84) 100 05/28/20 04:26 60 14 124/64 (84) 99 05/28/20 04:25 99.0 58 14 120/60 (80) 100 05/28/20 04:00 56 05/28/20 04:00 Mechanical Ventilator 05/28/20 04:00 40 05/28/20 04:00 62 14 113/58 (76) 100 05/28/20 03:14 73 20 40 05/28/20 00:15 63 113/56 05/28/20 00:00 Mechanical Ventilator 05/28/20 00:00 40 05/28/20 00:00 60 05/27/20 23:00 62 15 130/69 (89) 100 05/27/20 22:22 63 14 40 05/27/20 22:00 62 14 128/75 (92) 100 05/27/20 21:00 60 15 126/66 (86) 100 05/27/20 20:00 98.5 64 17 142/78 (99) 100 05/27/20 20:00 40 05/27/20 20:00 75 05/27/20 20:00 Mechanical Ventilator 05/27/20 19:23 66 16 40 05/27/20 19:00 66 19 143/81 (101) 100 05/27/20 18:00 64 17 130/65 (86) 100 05/27/20 17:52 135/67 05/27/20 17:20 40 18 40 05/27/20 17:00 65 16 146/73 (97) 100 05/27/20 16:00 40 05/27/20 16:00 74 05/27/20 16:00 98.6 73 19 144/73 (96) 100 05/27/20 16:00 Mechanical Ventilator 05/27/20 15:00 62 20 132/68 (89) 98 I&O Intake and Output 05/27/20 05/28/20 19:00 07:00 Intake Total 1745 ml 1660 ml Output Total 720 ml 810 ml Balance 1025 ml 850 ml Free Water 200 ml 100 ml IV Total 825 ml 900 ml Tube Feeding 720 ml 660 ml Output Urine Total 720 ml 810 ml # Bowel Movements 2 2 Dressing: other Wound: other Cardiovascular: RSR Respiratory: decreased breath sounds Abdomen: soft, non-tender, present bowel sounds Extremities: no tenderness, no cyanosis Laboratory Tests Test 05/28/20 04:00 White Blood Count 7.2 K/UL (4.8-10.8) Red Blood Count 3.06 M/UL (4.20-5.40) L Hemoglobin 9.6 G/DL (12.0-16.0) L Hematocrit 27.8 % (37.0-47.0) L Mean Corpuscular Volume 91 FL (80-99) Mean Corpuscular Hemoglobin 31.4 PG (27.0-31.0) H Mean Corpuscular Hemoglobin Concent 34.6 G/DL (32.0-36.0) Red Cell Distribution Width 14.2 % (11.6-14.8) Platelet Count 193 K/UL (150-450) Mean Platelet Volume 8.7 FL (6.5-10.1) Neutrophils (%) (Auto) % (45.0-75.0) Lymphocytes (%) (Auto) % (20.0-45.0) Monocytes (%) (Auto) % (1.0-10.0) Eosinophils (%) (Auto) % (0.0-3.0) Basophils (%) (Auto) % (0.0-2.0) Differential Total Cells Counted 100 Neutrophils % (Manual) 94 % (45-75) H Lymphocytes % (Manual) 6 % (20-45) L Monocytes % (Manual) 0 % (1-10) L Eosinophils % (Manual) 0 % (0-3) Basophils % (Manual) 0 % (0-2) Band Neutrophils 0 % (0-8) Platelet Estimate Adequate Platelet Morphology Normal Red Blood Cell Morphology Normal Sodium Level 143 MMOL/L (136-145) Potassium Level 3.9 MMOL/L (3.5-5.1) Chloride Level 108 MMOL/L (98-107) H Carbon Dioxide Level 28 MMOL/L (21-32) Anion Gap 7 mmol/L (5-15) Blood Urea Nitrogen 26 mg/dL (7-18) H Creatinine 0.5 MG/DL (0.55-1.30) L Estimat Glomerular Filtration Rate > 60 mL/min (>60) Glucose Level 113 MG/DL (74-106) H Calcium Level 8.1 MG/DL (8.5-10.1) L Plan Problems: (1) Hypernatremia (2) Renal failure (3) Respiratory failure (4) Sepsis Assessment & Plan: COVID + leukocytosis anemia electrolytes abnormal on iv fluids renal input appreciated cxr noted abx as per ID will follow with recs Interim placement of orogastric tube, also documented on recent abdominal radiograph. Stable satisfactory position of endotracheal tube and right jugular central venous catheter. There is increased pleural fluid and likely left basilar consolidation/atelectasis. The right lung and pleural space remain clear. Impression: Increasing left pleural fluid and likely basilar consolidation/atelectasis. Interim orogastric intubation DAILY ESTIMATED NEEDS: Needs based on Pulmonary, DM, wounds 66.6kg 25-30 kcals/kg 4862-8471 total kcals 1.25-1.5 g protein/kg 83-100 g total protein 20-25 mL/kg [id number] total fluid mLs NUTRITION DIAGNOSIS: Swallowing difficulty r/t dysphagia as evidenced by h/o CVA, pt is GT dep, currently ICU status, now intubated, off pressor support, GT feeds initiated. CURRENT TF:Glucerna 1.2 @45ml/hr ENTERAL NUTRITION RECOMMENDATIONS: As medically able: GLUCERNA 1.5 goal of 45ml/hr x24 hrs to provide 1080ml, 1620 kcal, 89g pro, 820ml free H2O -> as medically able without aspiration risk start Glucerna 1.5 @low rate 25ml/hr for 6 hrs. Advance as tolerated 10ml/hr q4-6 hrs to goal. - Flush per MD, HOB over 30 degrees. ---- If not hemodynamically stable, rec trophic feeds of 5-10ml/hr to maintain gut integrity. ADDITIONAL RECOMMENDATIONS: 1) Obtain an accurate calibrated bed scale wt 2) F/up w/ H&P 3) With active TF orders, add JASMYN BID for noted DTPI wounds 4) TF recs as above when off bipap and w/ hemodynamic stability -> Now intubated, off pressors, on GT feeds. he spleen size is normal. The gallbladder contains sludge. No stones. No wall thickening nor pericholecystic fluid. Common bile duct measures 4 mm in diameter. Small amount free fluid is seen adjacent to the liver and spleen Impression: Gallbladder sludge. Negative for dilated bile ducts Normal appearing liver and spleen (5) Elevated d-dimer (6) COVID-19 Assessment & Plan: ++ (7) Pressure ulcer Assessment & Plan: Pt presented on admission with multiple Pressure injuries.DTPI noted to R Buttocks (L)3.8cm x (W)3.4cm. Base of wound is purpuric,fluctuant with surrounding maroon and indurated borders. DTPI Upper L Buttocks(L)5.5cm x (W)4cm. Base of wound is maroon and indurated. Borders are irregular. Non-Blanchable erythema without induration/fluctuance L lower buttocks(L)4cm x (W)7cm. R and L heels are soft but blanchable. Erosion noted at peristomal GT site. Site is erythematous and excoriated. Small amt. sanguineous exudate. Tx.Plan: Apply Moisture Barrier Paste to Sacrum, R and L Buttocks. Cover each area with Optifoam drsg. Change every 3 days and prn. Apply Moisture Barrier Paste to R and L Ischial tuberosities with each incontinence care. Apply Cavilon Skin Barrier to both heels. Cover each heel and malleoli with Optifoam drsg. Change every 7 days and prn. Reposition at least every 2hours or as tolerated. Off-load heels with pillow. APM/DARIN Mattress overlay. Apply Zinc Oxide Paste TID to GT site. Leave open to Air. (8) Dementia (9) CVA (cerebral vascular accident) (10) T2DM (type 2 diabetes mellitus) (11) Gastrostomy present (12) COVID-19 (13) Rapid atrial fibrillation Paul Garcia May 28, 2020 14:54
--- NOTE | 2020-05-28 14:58 | Infectious Diseases Prog Note ---
Assessment/Plan 70 yo female with PMHx of Dementia, DM, CVA ( S/P PEG), COVID 19 infection and pressure ulcers. Septic Shock-combination cardiogenic and septic; SP Gram positive bacteremia- contaminant -05/14 Bcx 1/ S. haemolyticus; 05/17 Bcx Neg UTI UA (+); ucx 10-20k P. mirabilis (S Ceftriaxone, Cefepime) PNA, superimposed bacterial Recent COVID19 pna- now repeat neg x2 -05/26 CXR: Complete opacification of the left hemithorax with mediastinal shift to the left likely due to complete atelectasis of the left lung perhaps from mucous plugging. rapid COVID PCR neg -05/25 sp cx GNR SARS-COV2 neg -05/24 SARS-COV2 pCR inconclusive -05/23 CXR: Worsening aeration with increasing hazy opacification of the left lung base which may related to increased layering pleural effusion and adjacent atelectasis/consolidation. -05/19 CXR: Increasing left pleural fluid and likely basilar consolidation/atelectasis. Interim orogastric intubation 05/16 CXR: Retrocardiac density may represent atelectasis versus infiltrate. CXR 05/14/20 showed Retrocardiac atelectasis/infiltrate with Pulmonary venous congestion. sp cx MDR E.coli (S Cefepime, Meropenem, Zosyn) Hx of COVID 19 - Bacteria secondary infection? Asp PNA? COVID 19 tested Pos [facility] - about 3 week [employer] -still positive Rapid COVID PCR 05/14 Resp Fail Intuabted on Vent Leukocytosis; increased (sp steroids)- SP Fever; SP EMA, SP SVT -sp cardioversion Hyperglycemia Elevated LFTs; resolving -Abd US: Gallbladder sludge. Negative for dilated bile ducts. Normal appearing liver and spleen. Trace ascites Dementia DM Hx CVA ( S/P PEG) pressure ulcers PLAN - 05/27 SP Meropenem #11 (abx d #/) -05/24 SP Decadron #11 -05/19 SP IV Vancomcyin #6 -05/17 SP Cefepime #4 - f/u Cultures - Monitor CBC and Temps -repeat cultures -Can dc COVID isolation (more than 20days since diagnosis and 2 repeat neg test, afebrile) Thank you for consulting [facility]. Will continue to follow along with you. Discussed with RN. Subjective Allergies: Coded Allergies: DIVALPROEX SODIUM (Verified Allergy, Unknown, 05/14/20) PENICILLINS (Verified Allergy, Unknown, 05/14/20) in ICU , Afebrile Objective Last 24 Hour Vital Signs Date Time Temp Pulse Resp B/P (MAP) Pulse Ox O2 Delivery O2 Flow Rate FiO2 05/28/20 14:03 57 17 130/79 (96) 99 05/28/20 13:00 64 18 127/69 (88) 99 05/28/20 12:00 63 05/28/20 12:00 98.5 6 14 142/75 (97) 95 05/28/20 12:00 Mechanical Ventilator 05/28/20 12:00 40 05/28/20 11:34 59 13 40 05/28/20 11:00 64 19 145/64 (91) 100 05/28/20 10:00 61 15 122/62 (82) 100 05/28/20 09:00 60 13 114/65 (81) 100 05/28/20 08:00 98.7 56 14 107/58 (74) 100 05/28/20 08:00 Mechanical Ventilator 05/28/20 08:00 56 05/28/20 08:00 40 05/28/20 07:25 58 10 40 05/28/20 07:00 56 12 122/58 (79) 100 05/28/20 06:30 60 14 05/28/20 06:00 56 8 117/60 (79) 100 05/28/20 05:00 62 17 123/65 (84) 100 05/28/20 04:26 60 14 124/64 (84) 99 05/28/20 04:25 99.0 58 14 120/60 (80) 100 05/28/20 04:00 56 05/28/20 04:00 Mechanical Ventilator 05/28/20 04:00 40 05/28/20 04:00 62 14 113/58 (76) 100 05/28/20 03:14 73 20 40 05/28/20 00:15 63 113/56 05/28/20 00:00 Mechanical Ventilator 05/28/20 00:00 40 05/28/20 00:00 60 05/27/20 23:00 62 15 130/69 (89) 100 05/27/20 22:22 63 14 40 05/27/20 22:00 62 14 128/75 (92) 100 05/27/20 21:00 60 15 126/66 (86) 100 05/27/20 20:00 98.5 64 17 142/78 (99) 100 05/27/20 20:00 40 05/27/20 20:00 75 05/27/20 20:00 Mechanical Ventilator 05/27/20 19:23 66 16 40 05/27/20 19:00 66 19 143/81 (101) 100 05/27/20 18:00 64 17 130/65 (86) 100 05/27/20 17:52 135/67 05/27/20 17:20 40 18 40 05/27/20 17:00 65 16 146/73 (97) 100 05/27/20 16:00 40 05/27/20 16:00 74 05/27/20 16:00 98.6 73 19 144/73 (96) 100 05/27/20 16:00 Mechanical Ventilator 05/27/20 15:00 62 20 132/68 (89) 98 Height (Feet): 5 Height (Inches): 4.00 Weight (Pounds): 149 HEENT: atraumatic Respiratory/Chest: normal breath sounds Cardiovascular: regularly irregular Abdomen: no organomegaly Microbiology Date/Time Source Procedure Growth Status 05/26/20 12:15 Nasopharynx SARS-CoV-2 RdRp Gene Assay - Final Complete 05/25/20 18:00 Nasopharynx Coronavirus COVID-19 PCR ([facility]) - Final Complete Laboratory Tests Test 05/28/20 04:00 White Blood Count 7.2 K/UL (4.8-10.8) Red Blood Count 3.06 M/UL (4.20-5.40) L Hemoglobin 9.6 G/DL (12.0-16.0) L Hematocrit 27.8 % (37.0-47.0) L Mean Corpuscular Volume 91 FL (80-99) Mean Corpuscular Hemoglobin 31.4 PG (27.0-31.0) H Mean Corpuscular Hemoglobin Concent 34.6 G/DL (32.0-36.0) Red Cell Distribution Width 14.2 % (11.6-14.8) Platelet Count 193 K/UL (150-450) Mean Platelet Volume 8.7 FL (6.5-10.1) Neutrophils (%) (Auto) % (45.0-75.0) Lymphocytes (%) (Auto) % (20.0-45.0) Monocytes (%) (Auto) % (1.0-10.0) Eosinophils (%) (Auto) % (0.0-3.0) Basophils (%) (Auto) % (0.0-2.0) Differential Total Cells Counted 100 Neutrophils % (Manual) 94 % (45-75) H Lymphocytes % (Manual) 6 % (20-45) L Monocytes % (Manual) 0 % (1-10) L Eosinophils % (Manual) 0 % (0-3) Basophils % (Manual) 0 % (0-2) Band Neutrophils 0 % (0-8) Platelet Estimate Adequate Platelet Morphology Normal Red Blood Cell Morphology Normal Sodium Level 143 MMOL/L (136-145) Potassium Level 3.9 MMOL/L (3.5-5.1) Chloride Level 108 MMOL/L (98-107) H Carbon Dioxide Level 28 MMOL/L (21-32) Anion Gap 7 mmol/L (5-15) Blood Urea Nitrogen 26 mg/dL (7-18) H Creatinine 0.5 MG/DL (0.55-1.30) L Estimat Glomerular Filtration Rate > 60 mL/min (>60) Glucose Level 113 MG/DL (74-106) H Calcium Level 8.1 MG/DL (8.5-10.1) L Current Medications Medications (Trade) Dose Ordered Sig/Morgan Route PRN Reason Start Time Stop Time Status Last Admin Dose Admin Acetaminophen (Tylenol) 650 mg Q4H PRN GT Temp >100.5 05/16/20 06:15 06/15/20 06:14 05/21/20 20:01 Acetaminophen (Tylenol) 650 mg Q4H PRN RECTAL Temp >100.5 05/16/20 19:45 06/15/20 19:44 05/17/20 18:30 Chlorhexidine Gluconate (Lilliam-Hex 2%) 1 applic DAILY@1999 TOPIC 05/15/20 20:00 08/13/20 19:59 05/27/20 20:00 Dextrose (Dextrose 50%) 25 ml Q30M PRN IV Hypoglycemia 05/22/20 00:00 08/20/20 00:00 Dextrose (Dextrose 50%) 50 ml Q30M PRN IV Hypoglycemia 05/22/20 00:00 08/20/20 00:00 Insulin Aspart (NovoLOG) EVERY 6 HOURS SUBQ 05/22/20 06:00 08/20/20 05:59 05/27/20 05:57 Midodrine (Pro-Amatine) 10 mg TID ORAL 05/23/20 09:00 08/21/20 08:59 05/28/20 13:01 Norepinephrine Bitartrate 8 mg/ Dextrose 250 ml @ 0 mls/hr Q24H IV 05/20/20 18:00 06/19/20 17:59 05/22/20 05:45 Pantoprazole (Protonix) 40 mg DAILY IV 05/15/20 09:00 06/14/20 08:59 05/28/20 09:47 Phenylephrine HCl 100 mg/Dextrose 250 ml @ 0 mls/hr Q24H IV 05/15/20 00:15 06/14/20 00:14 05/15/20 13:28 Sodium Chloride 1,000 ml @ 75 mls/hr [id number] IV 05/15/20 06:45 06/14/20 06:44 05/28/20 09:56 Vasopressin 100 units/Sodium Chloride 100 ml @ 0 mls/hr Q24H IV 05/15/20 00:15 06/14/20 00:14 Zinc Oxide (Zinc Oxide) 1 applic TIDPRN PRN TOPIC Abdominal cramps 05/20/20 13:00 08/18/20 12:59 Umer Lagunas MD May 28, 2020 14:58
--- NOTE | 2020-05-28 16:33 | NUR ---
NURSE NOTES: Pt resting in bed,stable ,no resp distress presented during the shift .
--- NOTE | 2020-05-28 18:30 | NUR ---
NURSE NOTES: Turned and repositioned,bed bath given ,kept dry and clean.
--- NOTE | 2020-05-28 19:33 | NUR ---
NURSE NOTES: Report received from SARA Elias. Observed pt lying in the bed, obtunded. SR on cardiac care nurse noted. ETT, SIMV PS 8, TV 500, FIO2 40%, PEEP 5. NGT, running Glucerna 1.2 at 60cc/hr. IV on R IJ triple lumen, intact, running 1/2 NS at 75cc/hr. F/C intact and draining well. No distress noted on camryn wrists. Bed in the lowest position. Side rails up x3. Will continue to monitor.
--- NOTE | 2020-05-28 19:35 | NUR ---
NURSE HAND-OFF REPORT: Latest Vital Signs: Temperature 98.0 , Pulse 59 , B/P 126 /71 , Respiratory Rate 18 , O2 SAT 98 , Mechanical Ventilator, O2 Flow Rate 12.0 . Vital Sign Comment: stable EKG Rhythm: Sinus Bradycardia Rhythm change?: N MD Notified?: N) MD Response: No New Orders Received Latest Garza Fall Score: 50 Fall Risk: High Risk Safety Measures: Call light Within Reach, Bed Alarm Zone 1, Side Rails Side Rails x2, Bed position Low and Locked. Fall Precautions: Door Sign Report given to Brittany Díaz RN.
[2020-05-28] MEDS: Dyna-Hex 2% Top Sol 2oz TOPIC SCH (20:25)
--- NOTE | 2020-05-28 21:55 | NUR ---
NURSE NOTES: No acute distress noted at this time. Reposition done. Oral care given. NGT intact, no residual, tolerating feeding. Will continue to monitor.
--- NOTE | 2020-05-28 23:28 | NUR ---
NURSE NOTES: Pt lying in the bed, sleeping. No acute distress noted at this time. Tolerating current vent setting, saturating at 100%. Reposition done. Will continue to monitor.
[2020-05-29] VITALS (24 sets, daily range): BP systolic 87–146; BP diastolic 47–97
[2020-05-29] MEDS: Phenylephrine 100 MG in D5W 240 ML IV SCH (00:11)
[2020-05-29] MEDS: Vasopressin 100 UNITS in NS 95 ML IV SCH (00:15)
--- NOTE | 2020-05-29 01:30 | NUR ---
NURSE NOTES: No acute distress noted at this time. SB on secured entrance monitor noted, HR of 57. Tolerating current vent setting. Reposition done. Oral care given. Will continue to monitor.
--- NOTE | 2020-05-29 04:00 | NUR ---
NURSE NOTES: Pt lying in the bed, arousable, becomes agitated when touched. Noted BP of 91/55 at this time. Bed bath given. Oral care done. Reposition done. GT site cleaned and covered with gauze and optifoam. Will continue to monitor.
[2020-05-29] MEDS: NovoLOG Insulin Flexpen SUBQ SCH ×4 (06:00→17:17)
[2020-05-29 06:12] LABS: HEMATOCRIT 25.7 % (37.0-47.0); HEMOGLOBIN 8.7 G/DL (12.0-16.0); MEAN CORPUSCULAR VOLUME 91 FL (80-99); PLATELET COUNT 166 K/UL (150-450); RED BLOOD COUNT 2.81 M/UL (4.20-5.40); WHITE BLOOD COUNT 5.6 K/UL (4.8-10.8)
[2020-05-29 06:55] LABS: ANION GAP 1 mmol/L (5-15); BLOOD UREA NITROGEN 26 mg/dL (7-18); CALCIUM 8.7 MG/DL (8.5-10.1); CARBON DIOXIDE 33 MMOL/L (21-32); CHLORIDE 107 MMOL/L (98-107); CREATININE 0.5 MG/DL (0.55-1.30); PHOSPHORUS 2.4 MG/DL (2.5-4.9); POTASSIUM 3.9 MMOL/L (3.5-5.1); SODIUM 141 MMOL/L (136-145)
--- NOTE | 2020-05-29 07:09 | NUR ---
NURSE HAND-OFF REPORT: Important Events on Shift: BP of 90/58 at this time. Patient Status: poor Diet: Glucenra 1.2 at 60cc/hr Pending Orders: n Pending Results/Labs:n Pending MD notification:n Latest Vital Signs: Temperature 98.4 , Pulse 64 , B/P 90 /58 , Respiratory Rate 16 , O2 SAT 96 , Mechanical Ventilator, O2 Flow Rate 12.0 . Vital Sign Comment: [] EKG Rhythm: Sinus Rhythm Rhythm change?: N MD Notified?: Y Mak Peterson (covering for [facility]) Response: No New Orders Received Latest Garza Fall Score: 50 Fall Risk: High Risk Safety Measures: Call light Within Reach, Bed Alarm Zone 1, Side Rails Side Rails x2, Bed position Low and Locked. Fall Precautions: Door Sign Report given to SARA Elias.
--- NOTE | 2020-05-29 07:10 | NUR ---
NURSE NOTES: Report received from Brittany Díaz RN.Pt resting in bed asleep awakens spontaneously when touch, noted no resp distress orally intubated,ETT 7.5,lip line 23 cm,SIMV8 PS 8,TV500,Fio2 40%,Peep,bilat soft wrist restraints in placed,GTF Glucerna 1.2 at 60 ml/hr,no residual noted,Arauz cath draining yellow urine ,skin warm and dry with IV sites to RT IJ TLC intact IVF 1/2 NS at 75 ml/hr,SR up x2 HOB elevated,bed lock in lowest position will continue with plans of care.
--- NOTE | 2020-05-29 09:00 | NUR ---
NURSE NOTES: Cleaned oral secretions,oral suctioning done to sticky whitish phleghm,pulled up repositioned HOB 30 degrees.
--- NOTE | 2020-05-29 09:15 | General Progress Note ---
Subjective ROS Limited/Unobtainable: No Allergies: Coded Allergies: DIVALPROEX SODIUM (Verified Allergy, Unknown, 05/14/20) PENICILLINS (Verified Allergy, Unknown, 05/14/20) Objective Last 24 Hour Vital Signs Date Time Temp Pulse Resp B/P (MAP) Pulse Ox O2 Delivery O2 Flow Rate FiO2 05/29/20 08:00 98.5 62 15 95/57 (70) 100 05/29/20 08:00 40 05/29/20 08:00 Mechanical Ventilator 05/29/20 07:05 62 15 40 05/29/20 07:00 64 16 90/58 (69) 96 05/29/20 07:00 63 18 103/73 (83) 100 05/29/20 06:30 56 14 05/29/20 06:00 63 18 103/73 (83) 100 05/29/20 05:00 55 13 89/54 (66) 99 05/29/20 04:00 98.4 62 16 91/55 (67) 100 05/29/20 04:00 40 05/29/20 04:00 55 05/29/20 04:00 Mechanical Ventilator 05/29/20 03:10 56 14 40 05/29/20 03:00 65 14 97/72 (80) 94 05/29/20 02:00 53 10 90/58 (69) 100 05/29/20 01:00 57 12 95/55 (68) 99 05/29/20 00:11 65 105/66 05/29/20 00:00 66 05/29/20 00:00 Mechanical Ventilator 05/29/20 00:00 98.5 65 19 105/63 (77) 98 05/28/20 23:05 65 20 40 05/28/20 23:00 66 14 106/68 (81) 99 05/28/20 22:00 65 20 105/66 (79) 100 05/28/20 21:00 68 18 113/88 (96) 100 05/28/20 20:00 Mechanical Ventilator 05/28/20 20:00 64 05/28/20 20:00 40 05/28/20 20:00 98.2 65 19 105/63 (77) 98 05/28/20 19:30 64 18 40 05/28/20 19:00 51 10 110/63 (79) 99 05/28/20 18:00 59 18 126/71 (89) 98 05/28/20 17:00 59 20 150/94 (112) 99 05/28/20 16:06 Mechanical Ventilator 05/28/20 16:05 40 05/28/20 16:00 63 05/28/20 16:00 98.0 66 16 151/87 (108) 99 05/28/20 15:26 65 13 40 05/28/20 15:04 66 16 128/76 (93) 99 05/28/20 14:03 57 17 130/79 (96) 99 05/28/20 13:00 64 18 127/69 (88) 99 05/28/20 12:00 63 05/28/20 12:00 98.5 6 14 142/75 (97) 95 05/28/20 12:00 Mechanical Ventilator 05/28/20 12:00 40 05/28/20 11:34 59 13 40 05/28/20 11:00 64 19 145/64 (91) 100 05/28/20 10:00 61 15 122/62 (82) 100 Intake and Output 05/28/20 05/29/20 19:00 07:00 Intake Total 1825 ml 1645 ml Output Total 1350 ml 1080 ml Balance 475 ml 565 ml Free Water 100 ml 150 ml IV Total 825 ml 775 ml Tube Feeding 720 ml 720 ml Other 180 ml Output Urine Total 1350 ml 1080 ml # Bowel Movements 3 Laboratory Tests 05/28/20 11:39: POC Whole Blood Glucose [Pending] 05/28/20 18:00: POC Whole Blood Glucose 121H 05/28/20 23:57: POC Whole Blood Glucose [Pending] 05/29/20 04:20: White Blood Count 5.6, Red Blood Count 2.81L, Hemoglobin 8.7L, Hematocrit 25.7L, Mean Corpuscular Volume 91, Mean Corpuscular Hemoglobin 30.9, Mean Corpuscular Hemoglobin Concent 33.9, Red Cell Distribution Width 14.0, Platelet Count 166, Mean Platelet Volume 8.5, Neutrophils (%) (Auto) , Lymphocytes (%) (Auto) , Monocytes (%) (Auto) , Eosinophils (%) (Auto) , Basophils (%) (Auto) , Differential Total Cells Counted 100, Neutrophils % (Manual) 88H, Lymphocytes % (Manual) 9L, Monocytes % (Manual) 3, Eosinophils % (Manual) 0, Basophils % (Manual) 0, Band Neutrophils 0, Platelet Estimate Adequate, Platelet Morphology Normal, Polychromasia 1+, Hypochromasia 1+, Anisocytosis 1+, Sodium Level 141, Potassium Level 3.9, Chloride Level 107, Carbon Dioxide Level 33H, Anion Gap 1L, Blood Urea Nitrogen 26H, Creatinine 0.5L, Estimat Glomerular Filtration Rate > 60, Glucose Level 108H, Calcium Level 8.7, Phosphorus Level 2.4L, Magnesium Level 1.8 Height (Feet): 5 Height (Inches): 4.00 Weight (Pounds): 149 General Appearance: no apparent distress EENT: normal ENT inspection Neck: supple Cardiovascular: normal rate Respiratory/Chest: decreased breath sounds Abdomen: normal bowel sounds, non tender, soft Extremities: non-tender Assessment/Plan Status: stable Assessment/Plan: 1. History of CVA. 2. Dementia. 3. Dysphagia with G-tube. 4. Cachexia. 5. Diabetes. 6. Pressure ulcers. 7. Hypothyroidism. 8. Legal blindness. 9. Currently COVID positive. GT has trice removed NGTF GT replacement when more stable icu care fu [employer] recs fu labs Jhon Matos MD May 29, 2020 09:15
[2020-05-29] MEDS: Midodrine 10mg tab ORAL SCH ×3 (09:24→17:17)
[2020-05-29] MEDS: Pantoprazole Inj IV SCH (09:24)
--- NOTE | 2020-05-29 10:43 | General Progress Note ---
Subjective ROS Limited/Unobtainable: Yes Allergies: Coded Allergies: DIVALPROEX SODIUM (Verified Allergy, Unknown, 05/14/20) PENICILLINS (Verified Allergy, Unknown, 05/14/20) Subjective events noted and interval notes reviewed glucose values are stable Item Value Date Time Bedside Blood Glucose 119 mg/dl 05/29/20 0600 Bedside Blood Glucose 116 mg/dl 05/29/20 0000 Bedside Blood Glucose 121 mg/dl H 05/28/20 1800 Bedside Blood Glucose 124 mg/dl H 05/28/20 1147 Bedside Blood Glucose 138 mg/dl H 05/28/20 0600 Objective Last 24 Hour Vital Signs Date Time Temp Pulse Resp B/P (MAP) Pulse Ox O2 Delivery O2 Flow Rate FiO2 05/29/20 10:00 47 16 111/62 (78) 100 05/29/20 09:00 67 16 91/59 (70) 96 05/29/20 08:00 98.5 62 15 95/57 (70) 100 05/29/20 08:00 40 05/29/20 08:00 Mechanical Ventilator 05/29/20 08:00 70 05/29/20 07:05 62 15 40 05/29/20 07:00 64 16 90/58 (69) 96 05/29/20 07:00 63 18 103/73 (83) 100 05/29/20 06:30 56 14 05/29/20 06:00 63 18 103/73 (83) 100 05/29/20 05:00 55 13 89/54 (66) 99 05/29/20 04:00 98.4 62 16 91/55 (67) 100 05/29/20 04:00 40 05/29/20 04:00 55 05/29/20 04:00 Mechanical Ventilator 05/29/20 03:10 56 14 40 05/29/20 03:00 65 14 97/72 (80) 94 05/29/20 02:00 53 10 90/58 (69) 100 05/29/20 01:00 57 12 95/55 (68) 99 05/29/20 00:11 65 105/66 05/29/20 00:00 66 05/29/20 00:00 Mechanical Ventilator 05/29/20 00:00 98.5 65 19 105/63 (77) 98 05/28/20 23:05 65 20 40 05/28/20 23:00 66 14 106/68 (81) 99 05/28/20 22:00 65 20 105/66 (79) 100 05/28/20 21:00 68 18 113/88 (96) 100 05/28/20 20:00 Mechanical Ventilator 05/28/20 20:00 64 05/28/20 20:00 40 05/28/20 20:00 98.2 65 19 105/63 (77) 98 05/28/20 19:30 64 18 40 05/28/20 19:00 51 10 110/63 (79) 99 05/28/20 18:00 59 18 126/71 (89) 98 05/28/20 17:00 59 20 150/94 (112) 99 05/28/20 16:06 Mechanical Ventilator 05/28/20 16:05 40 05/28/20 16:00 63 05/28/20 16:00 98.0 66 16 151/87 (108) 99 05/28/20 15:26 65 13 40 05/28/20 15:04 66 16 128/76 (93) 99 05/28/20 14:03 57 17 130/79 (96) 99 05/28/20 13:00 64 18 127/69 (88) 99 05/28/20 12:00 63 05/28/20 12:00 98.5 6 14 142/75 (97) 95 05/28/20 12:00 Mechanical Ventilator 05/28/20 12:00 40 05/28/20 11:34 59 13 40 05/28/20 11:00 64 19 145/64 (91) 100 Intake and Output 05/28/20 05/29/20 19:00 07:00 Intake Total 1825 ml 1720 ml Output Total 1350 ml 1080 ml Balance 475 ml 640 ml Free Water 100 ml 150 ml IV Total 825 ml 850 ml Tube Feeding 720 ml 720 ml Other 180 ml Output Urine Total 1350 ml 1080 ml # Bowel Movements 3 Laboratory Tests 05/28/20 11:39: POC Whole Blood Glucose [Pending] 05/28/20 18:00: POC Whole Blood Glucose 121H 05/28/20 23:57: POC Whole Blood Glucose [Pending] 05/29/20 04:20: White Blood Count 5.6, Red Blood Count 2.81L, Hemoglobin 8.7L, Hematocrit 25.7L, Mean Corpuscular Volume 91, Mean Corpuscular Hemoglobin 30.9, Mean Corpuscular Hemoglobin Concent 33.9, Red Cell Distribution Width 14.0, Platelet Count 166, Mean Platelet Volume 8.5, Neutrophils (%) (Auto) , Lymphocytes (%) (Auto) , Monocytes (%) (Auto) , Eosinophils (%) (Auto) , Basophils (%) (Auto) , Differential Total Cells Counted 100, Neutrophils % (Manual) 88H, Lymphocytes % (Manual) 9L, Monocytes % (Manual) 3, Eosinophils % (Manual) 0, Basophils % (M anual) 0, Band Neutrophils 0, Platelet Estimate Adequate, Platelet Morphology Normal, Polychromasia 1+, Hypochromasia 1+, Anisocytosis 1+, Sodium Level 141, Potassium Level 3.9, Chloride Level 107, Carbon Dioxide Level 33H, Anion Gap 1L, Blood Urea Nitrogen 26H, Creatinine 0.5L, Estimat Glomerular Filtration Rate > 60, Glucose Level 108H, Calcium Level 8.7, Phosphorus Level 2.4L, Magnesium Level 1.8 Height (Feet): 5 Height (Inches): 4.00 Weight (Pounds): 149 Objective Current Medications Medications (Trade) Dose Ordered Sig/Morgan Route PRN Reason Start Time Stop Time Status Last Admin Dose Admin Acetaminophen (Tylenol) 650 mg Q4H PRN GT Temp >100.5 05/16/20 06:15 06/15/20 06:14 05/21/20 20:01 Acetaminophen (Tylenol) 650 mg Q4H PRN RECTAL Temp >100.5 05/16/20 19:45 06/15/20 19:44 05/17/20 18:30 Chlorhexidine Gluconate (Lilliam-Hex 2%) 1 applic DAILY@1999 TOPIC 05/15/20 20:00 08/13/20 19:59 05/28/20 20:25 Dextrose (Dextrose 50%) 25 ml Q30M PRN IV Hypoglycemia 05/22/20 00:00 08/20/20 00:00 Dextrose (Dextrose 50%) 50 ml Q30M PRN IV Hypoglycemia 05/22/20 00:00 08/20/20 00:00 Insulin Aspart (NovoLOG) EVERY 6 HOURS SUBQ 05/22/20 06:00 08/20/20 05:59 05/27/20 05:57 Midodrine (Pro-Amatine) 10 mg TID ORAL 05/23/20 09:00 08/21/20 08:59 05/29/20 09:24 Norepinephrine Bitartrate 8 mg/ Dextrose 250 ml @ 0 mls/hr Q24H IV 05/20/20 18:00 06/19/20 17:59 05/22/20 05:45 Pantoprazole (Protonix) 40 mg DAILY IV 05/15/20 09:00 06/14/20 08:59 05/29/20 09:24 Phenylephrine HCl 100 mg/Dextrose 250 ml @ 0 mls/hr Q24H IV 05/15/20 00:15 06/14/20 00:14 05/15/20 13:28 Sodium Chloride 1,000 ml @ 75 mls/hr [id number] IV 05/15/20 06:45 06/14/20 06:44 05/29/20 00:56 Vasopressin 100 units/Sodium Chloride 100 ml @ 0 mls/hr Q24H IV 05/15/20 00:15 06/14/20 00:14 Zinc Oxide (Zinc Oxide) 1 applic TIDPRN PRN TOPIC Abdominal cramps 05/20/20 13:00 08/18/20 12:59 Assessment/Plan Problem List: (1) COVID-19 ICD Codes: U07.1 - COVID-19 SNOMED: 112423650 (2) Elevated d-dimer ICD Codes: R79.89 - Other specified abnormal findings of blood chemistry SNOMED: 923143769 (3) Rapid atrial fibrillation ICD Codes: I48.91 - Unspecified atrial fibrillation SNOMED: 322478187 (4) Sepsis ICD Codes: A41.9 - Sepsis, unspecified organism SNOMED: 39801356 (5) Respiratory failure ICD Codes: J96.90 - Respiratory failure, unspecified, unspecified whether with hypoxia or hypercapnia SNOMED: 670000407 (6) Renal failure ICD Codes: N19 - Unspecified kidney failure SNOMED: 01500894 (7) Hypernatremia ICD Codes: E87.0 - Hyperosmolality and hypernatremia SNOMED: 791682275 (8) T2DM (type 2 diabetes mellitus) ICD Codes: E11.9 - Type 2 diabetes mellitus without complications SNOMED: 05049750 Status: stable Assessment/Plan: no need for Levemir continue Novolog sliding scale every 6 hours hypoglycemia protocol in order Chau Shelley MD May 29, 2020 10:43
--- NOTE | 2020-05-29 11:00 | NUR ---
NURSE NOTES: Pt resting in bed asleep, noted no resp distress ,bilat soft wrist restraints in placed,anxious when awake,resistive to care .
--- NOTE | 2020-05-29 11:36 | Pulmonology Progress Note ---
Subjective ROS Limited/Unobtainable: Yes Interval Events: Unable to extubtae due to poor mental status Constitutional: Reports: no symptoms HEENT: Repors: no symptoms Respiratory: Reports: no symptoms Cardiovascular: Reports: no symptoms Gastrointestinal/Abdominal: Reports: no symptoms Genitourinary: Reports: no symptoms Allergies: Coded Allergies: DIVALPROEX SODIUM (Verified Allergy, Unknown, 05/14/20) PENICILLINS (Verified Allergy, Unknown, 05/14/20) All Systems: reviewed and negative except above Objective Last 24 Hour Vital Signs Date Time Temp Pulse Resp B/P (MAP) Pulse Ox O2 Delivery O2 Flow Rate FiO2 05/29/20 11:05 76 29 40 05/29/20 11:00 65 22 127/97 (107) 100 05/29/20 10:00 47 16 111/62 (78) 100 05/29/20 09:00 67 16 91/59 (70) 96 05/29/20 08:00 98.5 62 15 95/57 (70) 100 05/29/20 08:00 40 05/29/20 08:00 Mechanical Ventilator 05/29/20 08:00 70 05/29/20 07:05 62 15 40 05/29/20 07:00 64 16 90/58 (69) 96 05/29/20 07:00 63 18 103/73 (83) 100 05/29/20 06:30 56 14 05/29/20 06:00 63 18 103/73 (83) 100 05/29/20 05:00 55 13 89/54 (66) 99 05/29/20 04:00 98.4 62 16 91/55 (67) 100 05/29/20 04:00 40 05/29/20 04:00 55 05/29/20 04:00 Mechanical Ventilator 05/29/20 03:10 56 14 40 05/29/20 03:00 65 14 97/72 (80) 94 05/29/20 02:00 53 10 90/58 (69) 100 05/29/20 01:00 57 12 95/55 (68) 99 05/29/20 00:11 65 105/66 05/29/20 00:00 66 05/29/20 00:00 Mechanical Ventilator 05/29/20 00:00 98.5 65 19 105/63 (77) 98 05/28/20 23:05 65 20 40 9/19/20 23:00 66 14 106/68 (81) 99 05/28/20 22:00 65 20 105/66 (79) 100 05/28/20 21:00 68 18 113/88 (96) 100 05/28/20 20:00 Mechanical Ventilator 05/28/20 20:00 64 05/28/20 20:00 40 05/28/20 20:00 98.2 65 19 105/63 (77) 98 05/28/20 19:30 64 18 40 05/28/20 19:00 51 10 110/63 (79) 99 05/28/20 18:00 59 18 126/71 (89) 98 05/28/20 17:00 59 20 150/94 (112) 99 05/28/20 16:06 Mechanical Ventilator 05/28/20 16:05 40 05/28/20 16:00 63 05/28/20 16:00 98.0 66 16 151/87 (108) 99 05/28/20 15:26 65 13 40 05/28/20 15:04 66 16 128/76 (93) 99 05/28/20 14:03 57 17 130/79 (96) 99 05/28/20 13:00 64 18 127/69 (88) 99 05/28/20 12:00 63 05/28/20 12:00 98.5 6 14 142/75 (97) 95 05/28/20 12:00 Mechanical Ventilator 05/28/20 12:00 40 Intake and Output 05/28/20 05/29/20 19:00 07:00 Intake Total 1825 ml 1720 ml Output Total 1350 ml 1080 ml Balance 475 ml 640 ml Free Water 100 ml 150 ml IV Total 825 ml 850 ml Tube Feeding 720 ml 720 ml Other 180 ml Output Urine Total 1350 ml 1080 ml # Bowel Movements 3 General Appearance: no acute distress HEENT: normocephalic Respiratory: chest wall non-tender, lungs clear Cardiovascular: normal peripheral pulses, normal rate Abdomen: normal bowel sounds Microbiology Date/Time Source Procedure Growth Status 05/26/20 12:15 Nasopharynx SARS-CoV-2 RdRp Gene Assay - Final Complete Laboratory Tests 05/28/20 11:39: POC Whole Blood Glucose [Pending] 05/28/20 18:00: POC Whole Blood Glucose 121H 05/28/20 23:57: POC Whole Blood Glucose [Pending] 05/29/20 04:20: White Blood Count 5.6, Red Blood Count 2.81L, Hemoglobin 8.7L, Hematocrit 25.7L, Mean Corpuscular Volume 91, Mean Corpuscular Hemoglobin 30.9, Mean Corpuscular Hemoglobin Concent 33.9, Red Cell Distribution Width 14.0, Platelet Count 166, Mean Platelet Volume 8.5, Neutrophils (%) (Auto) , Lymphocytes (%) (Auto) , Monocytes (%) (Auto) , Eosinophils (%) (Auto) , Basophils (%) (Auto) , Differential Total Cells Counted 100, Neutrophils % (Manual) 88H, Lymphocytes % (Manual) 9L, Monocytes % (Manual) 3, Eosinophils % (Manual) 0, Basophils % (Manual) 0, Band Neutrophils 0, Platelet Estimate Adequate, Platelet Morphology Normal, Polychromasia 1+, Hypochromasia 1+, Anisocytosis 1+, Sodium Level 141, Potassium Level 3.9, Chloride Level 107, Carbon Dioxide Level 33H, Anion Gap 1L, Blood Urea Nitrogen 26H, Creatinine 0.5L, Estimat Glomerular Filtration Rate > 60, Glucose Level 108H, Calcium Level 8.7, Phosphorus Level 2.4L, Magnesium Level 1.8 Current Medications Medications (Trade) Dose Ordered Sig/Morgan Route PRN Reason Start Time Stop Time Status Last Admin Dose Admin Acetaminophen (Tylenol) 650 mg Q4H PRN GT Temp >100.5 05/16/20 06:15 06/15/20 06:14 05/21/20 20:01 Acetaminophen (Tylenol) 650 mg Q4H PRN RECTAL Temp >100.5 05/16/20 19:45 06/15/20 19:44 05/17/20 18:30 Chlorhexidine Gluconate (Lilliam-Hex 2%) 1 applic DAILY@1999 TOPIC 05/15/20 20:00 08/13/20 19:59 05/28/20 20:25 Dextrose (Dextrose 50%) 25 ml Q30M PRN IV Hypoglycemia 05/22/20 00:00 08/20/20 00:00 Dextrose (Dextrose 50%) 50 ml Q30M PRN IV Hypoglycemia 05/22/20 00:00 08/20/20 00:00 Insulin Aspart (NovoLOG) EVERY 6 HOURS SUBQ 05/22/20 06:00 08/20/20 05:59 05/27/20 05:57 Midodrine (Pro-Amatine) 10 mg TID ORAL 05/23/20 09:00 08/21/20 08:59 05/29/20 09:24 Norepinephrine Bitartrate 8 mg/ Dextrose 250 ml @ 0 mls/hr Q24H IV 05/20/20 18:00 06/19/20 17:59 05/22/20 05:45 Pantoprazole (Protonix) 40 mg DAILY IV 05/15/20 09:00 06/14/20 08:59 05/29/20 09:24 Phenylephrine HCl 100 mg/Dextrose 250 ml @ 0 mls/hr Q24H IV 05/15/20 00:15 06/14/20 00:14 05/15/20 13:28 Sodium Chloride 1,000 ml @ 75 mls/hr [id number] IV 05/15/20 06:45 06/14/20 06:44 05/29/20 00:56 Vasopressin 100 units/Sodium Chloride 100 ml @ 0 mls/hr Q24H IV 05/15/20 00:15 06/14/20 00:14 Zinc Oxide (Zinc Oxide) 1 applic TIDPRN PRN TOPIC Abdominal cramps 05/20/20 13:00 08/18/20 12:59 Assessment/Plan Assessment/Plan IMPRESSION: 1. Acute respiratory failure. 2. Diabetes mellitus with hyperglycemia. 3. Septic shock. 4. Chronic G-tube. 5. Decubitus. 6. History of CHF. DISCUSSION: Continue fluids and antibiotics. Pressors prn Now on T piece On 40% FiO2 DVT and GI prophylaxis. Respiratory precautions due to COVID-[address] Wade. I will follow carefully. Decadron continuing Mental status better however unsafe to extubate Will not be able to maintain airway Recommend trach Needs new PEG Richard James Omar Syed MD May 29, 2020 11:36
--- NOTE | 2020-05-29 13:00 | NUR ---
NURSE NOTES: Dr Wade at bedside,updated re pt's status.
--- NOTE | 2020-05-29 13:17 | Surgery Progress Note ---
Surgery Progress Note Subjective Additional Comments ill appearing Objective Last 24 Hour Vital Signs Date Time Temp Pulse Resp B/P (MAP) Pulse Ox O2 Delivery O2 Flow Rate FiO2 05/29/20 12:00 98.0 65 16 128/63 (84) 100 05/29/20 12:00 Mechanical Ventilator 05/29/20 12:00 40 05/29/20 12:00 60 05/29/20 11:05 76 29 40 05/29/20 11:00 65 22 127/97 (107) 100 05/29/20 10:00 47 16 111/62 (78) 100 05/29/20 09:00 67 16 91/59 (70) 96 05/29/20 08:00 98.5 62 15 95/57 (70) 100 05/29/20 08:00 40 05/29/20 08:00 Mechanical Ventilator 05/29/20 08:00 70 05/29/20 07:05 62 15 40 05/29/20 07:00 64 16 90/58 (69) 96 05/29/20 07:00 63 18 103/73 (83) 100 05/29/20 06:30 56 14 05/29/20 06:00 63 18 103/73 (83) 100 05/29/20 05:00 55 13 89/54 (66) 99 05/29/20 04:00 98.4 62 16 91/55 (67) 100 05/29/20 04:00 40 05/29/20 04:00 55 05/29/20 04:00 Mechanical Ventilator 05/29/20 03:10 56 14 40 05/29/20 03:00 65 14 97/72 (80) 94 05/29/20 02:00 53 10 90/58 (69) 100 05/29/20 01:00 57 12 95/55 (68) 99 05/29/20 00:11 65 105/66 05/29/20 00:00 66 05/29/20 00:00 Mechanical Ventilator 05/29/20 00:00 98.5 65 19 105/63 (77) 98 05/28/20 23:05 65 20 40 05/28/20 23:00 66 14 106/68 (81) 99 05/28/20 22:00 65 20 105/66 (79) 100 05/28/20 21:00 68 18 113/88 (96) 100 05/28/20 20:00 Mechanical Ventilator 05/28/20 20:00 64 05/28/20 20:00 40 05/28/20 20:00 98.2 65 19 105/63 (77) 98 05/28/20 19:30 64 18 40 05/28/20 19:00 51 10 110/63 (79) 99 05/28/20 18:00 59 18 126/71 (89) 98 05/28/20 17:00 59 20 150/94 (112) 99 05/28/20 16:06 Mechanical Ventilator 05/28/20 16:05 40 05/28/20 16:00 63 05/28/20 16:00 98.0 66 16 151/87 (108) 99 05/28/20 15:26 65 13 40 05/28/20 15:04 66 16 128/76 (93) 99 05/28/20 14:03 57 17 130/79 (96) 99 I&O Intake and Output 05/28/20 05/29/20 19:00 07:00 Intake Total 1825 ml 1720 ml Output Total 1350 ml 1080 ml Balance 475 ml 640 ml Free Water 100 ml 150 ml IV Total 825 ml 850 ml Tube Feeding 720 ml 720 ml Other 180 ml Output Urine Total 1350 ml 1080 ml # Bowel Movements 3 Dressing: other Wound: other Cardiovascular: RSR Respiratory: decreased breath sounds Abdomen: soft, non-tender, present bowel sounds Extremities: no tenderness, no cyanosis Laboratory Tests Test 05/28/20 18:00 05/28/20 23:57 05/29/20 04:20 POC Whole Blood Glucose 121 MG/DL (74-106) H Pending White Blood Count 5.6 K/UL (4.8-10.8) Red Blood Count 2.81 M/UL (4.20-5.40) L Hemoglobin 8.7 G/DL (12.0-16.0) L Hematocrit 25.7 % (37.0-47.0) L Mean Corpuscular Volume 91 FL (80-99) Mean Corpuscular Hemoglobin 30.9 PG (27.0-31.0) Mean Corpuscular Hemoglobin Concent 33.9 G/DL (32.0-36.0) Red Cell Distribution Width 14.0 % (11.6-14.8) Platelet Count 166 K/UL (150-450) Mean Platelet Volume 8.5 FL (6.5-10.1) Neutrophils (%) (Auto) % (45.0-75.0) Lymphocytes (%) (Auto) % (20.0-45.0) Monocytes (%) (Auto) % (1.0-10.0) Eosinophils (%) (Auto) % (0.0-3.0) Basophils (%) (Auto) % (0.0-2.0) Differential Total Cells Counted 100 Neutrophils % (Manual) 88 % (45-75) H Lymphocytes % (Manual) 9 % (20-45) L Monocytes % (Manual) 3 % (1-10) Eosinophils % (Manual) 0 % (0-3) Basophils % (Manual) 0 % (0-2) Band Neutrophils 0 % (0-8) Platelet Estimate Adequate Platelet Morphology Normal Polychromasia 1+ Hypochromasia 1+ Anisocytosis 1+ Sodium Level 141 MMOL/L (136-145) Potassium Level 3.9 MMOL/L (3.5-5.1) Chloride Level 107 MMOL/L (98-107) Carbon Dioxide Level 33 MMOL/L (21-32) H Anion Gap 1 mmol/L (5-15) L Blood Urea Nitrogen 26 mg/dL (7-18) H Creatinine 0.5 MG/DL (0.55-1.30) L Estimat Glomerular Filtration Rate > 60 mL/min (>60) Glucose Level 108 MG/DL (74-106) H Calcium Level 8.7 MG/DL (8.5-10.1) Phosphorus Level 2.4 MG/DL (2.5-4.9) L Magnesium Level 1.8 MG/DL (1.8-2.4) Plan Problems: (1) Hypernatremia (2) Renal failure (3) Respiratory failure (4) Sepsis Assessment & Plan: COVID + leukocytosis anemia electrolytes abnormal on iv fluids renal input appreciated cxr noted abx as per ID will follow with recs Interim placement of orogastric tube, also documented on recent abdominal radiograph. Stable satisfactory position of endotracheal tube and right jugular central venous catheter. There is increased pleural fluid and likely left basilar consolidation/atelectasis. The right lung and pleural space remain clear. Impression: Increasing left pleural fluid and likely basilar consolidation/atelectasis. Interim orogastric intubation DAILY ESTIMATED NEEDS: Needs based on Pulmonary, DM, wounds 66.6kg 25-30 kcals/kg 2648-3374 total kcals 1.25-1.5 g protein/kg 83-100 g total protein 20-25 mL/kg 8074-6685 total fluid mLs NUTRITION DIAGNOSIS: Swallowing difficulty r/t dysphagia as evidenced by h/o CVA, pt is GT dep, currently ICU status, now intubated, off pressor support, GT feeds initiated. CURRENT TF:Glucerna 1.2 @45ml/hr ENTERAL NUTRITION RECOMMENDATIONS: As medically able: GLUCERNA 1.5 goal of 45ml/hr x24 hrs to provide 1080ml, 1620 kcal, 89g pro, 820ml free H2O -> as medically able without aspiration risk start Glucerna 1.5 @low rate 25ml/hr for 6 hrs. Advance as tolerated 10ml/hr q4-6 hrs to goal. - Flush per MD, HOB over 30 degrees. ---- If not hemodynamically stable, rec trophic feeds of 5-10ml/hr to maintain gut integrity. ADDITIONAL RECOMMENDATIONS: 1) Obtain an accurate calibrated bed scale wt 2) F/up w/ H&P 3) With active TF orders, add JASMYN BID for noted DTPI wounds 4) TF recs as above when off bipap and w/ hemodynamic stability -> Now intubated, off pressors, on GT feeds. he spleen size is normal. The gallbladder contains sludge. No stones. No wall thickening nor pericholecystic fluid. Common bile duct measures 4 mm in diameter. Small amount free fluid is seen adjacent to the liver and spleen Impression: Gallbladder sludge. Negative for dilated bile ducts Normal appearing liver and spleen (5) Elevated d-dimer (6) COVID-19 Assessment & Plan: ++ (7) Pressure ulcer Assessment & Plan: Pt presented on admission with multiple Pressure injuries.DTPI noted to R Buttocks (L)3.8cm x (W)3.4cm. Base of wound is purpuric,fluctuant with surrounding maroon and indurated borders. DTPI Upper L Buttocks(L)5.5cm x (W)4cm. Base of wound is maroon and indurated. Borders are irregular. Non-Blanchable erythema without induration/fluctuance L lower buttocks(L)4cm x (W)7cm. R and L heels are soft but blanchable. Erosion noted at peristomal GT site. Site is erythematous and excoriated. Small amt. sanguineous exudate. Tx.Plan: Apply Moisture Barrier Paste to Sacrum, R and L Buttocks. Cover each area with Optifoam drsg. Change every 3 days and prn. Apply Moisture Barrier Paste to R and L Ischial tuberosities with each incontinence care. Apply Cavilon Skin Barrier to both heels. Cover each heel and malleoli with Optifoam drsg. Change every 7 days and prn. Reposition at least every 2hours or as tolerated. Off-load heels with pillow. APM/DARIN Mattress overlay. Apply Zinc Oxide Paste TID to GT site. Leave open to Air. (8) Dementia (9) CVA (cerebral vascular accident) (10) T2DM (type 2 diabetes mellitus) (11) Gastrostomy present (12) COVID-19 (13) Rapid atrial fibrillation Paul Garcia May 29, 2020 13:17
--- NOTE | 2020-05-29 13:17 | General Progress Note ---
Subjective Date patient seen: May 29, 2020 Time patient seen: 12:00 ROS Limited/Unobtainable: Yes Allergies: Coded Allergies: DIVALPROEX SODIUM (Verified Allergy, Unknown, 05/14/20) PENICILLINS (Verified Allergy, Unknown, 05/14/20) All Systems: reviewed and negative except above Subjective Non verbal, intubated Objective Last 24 Hour Vital Signs Date Time Temp Pulse Resp B/P (MAP) Pulse Ox O2 Delivery O2 Flow Rate FiO2 05/29/20 12:00 98.0 65 16 128/63 (84) 100 05/29/20 12:00 Mechanical Ventilator 05/29/20 12:00 40 05/29/20 12:00 60 05/29/20 11:05 76 29 40 05/29/20 11:00 65 22 127/97 (107) 100 05/29/20 10:00 47 16 111/62 (78) 100 05/29/20 09:00 67 16 91/59 (70) 96 05/29/20 08:00 98.5 62 15 95/57 (70) 100 05/29/20 08:00 40 05/29/20 08:00 Mechanical Ventilator 05/29/20 08:00 70 05/29/20 07:05 62 15 40 05/29/20 07:00 64 16 90/58 (69) 96 05/29/20 07:00 63 18 103/73 (83) 100 05/29/20 06:30 56 14 05/29/20 06:00 63 18 103/73 (83) 100 05/29/20 05:00 55 13 89/54 (66) 99 05/29/20 04:00 98.4 62 16 91/55 (67) 100 05/29/20 04:00 40 05/29/20 04:00 55 05/29/20 04:00 Mechanical Ventilator 05/29/20 03:10 56 14 40 05/29/20 03:00 65 14 97/72 (80) 94 05/29/20 02:00 53 10 90/58 (69) 100 05/29/20 01:00 57 12 95/55 (68) 99 05/29/20 00:11 65 105/66 05/29/20 00:00 66 05/29/20 00:00 Mechanical Ventilator 05/29/20 00:00 98.5 65 19 105/63 (77) 98 05/28/20 23:05 65 20 40 05/28/20 23:00 66 14 106/68 (81) 99 05/28/20 22:00 65 20 105/66 (79) 100 05/28/20 21:00 68 18 113/88 (96) 100 05/28/20 20:00 Mechanical Ventilator 05/28/20 20:00 64 05/28/20 20:00 40 05/28/20 20:00 98.2 65 19 105/63 (77) 98 05/28/20 19:30 64 18 40 05/28/20 19:00 51 10 110/63 (79) 99 05/28/20 18:00 59 18 126/71 (89) 98 05/28/20 17:00 59 20 150/94 (112) 99 05/28/20 16:06 Mechanical Ventilator 05/28/20 16:05 40 05/28/20 16:00 63 05/28/20 16:00 98.0 66 16 151/87 (108) 99 05/28/20 15:26 65 13 40 05/28/20 15:04 66 16 128/76 (93) 99 05/28/20 14:03 57 17 130/79 (96) 99 Intake and Output 05/28/20 05/29/20 19:00 07:00 Intake Total 1825 ml 1720 ml Output Total 1350 ml 1080 ml Balance 475 ml 640 ml Free Water 100 ml 150 ml IV Total 825 ml 850 ml Tube Feeding 720 ml 720 ml Other 180 ml Output Urine Total 1350 ml 1080 ml # Bowel Movements 3 Laboratory Tests 05/28/20 18:00: POC Whole Blood Glucose 121H 05/28/20 23:57: POC Whole Blood Glucose [Pending] 05/29/20 04:20: White Blood Count 5.6, Red Blood Count 2.81L, Hemoglobin 8.7L, Hematocrit 25.7L, Mean Corpuscular Volume 91, Mean Corpuscular Hemoglobin 30.9, Mean Corpuscular Hemoglobin Concent 33.9, Red Cell Distribution Width 14.0, Platelet Count 166, Mean Platelet Volume 8.5, Neutrophils (%) (Auto) , Lymphocytes (%) (Auto) , Monocytes (%) (Auto) , Eosinophils (%) (Auto) , Basophils (%) (Auto) , Differential Total Cells Counted 100, Neutrophils % (Manual) 88H, Lymphocytes % (Manual) 9L, Monocytes % (Manual) 3, Eosinophils % (Manual) 0, Basophils % (Manual) 0, Band Neutrophils 0, Platelet Estimate Adequate, Platelet Morphology Normal, Polychromasia 1+, Hypochromasia 1+, Anisocytosis 1+, Sodium Level 141, Potassium Level 3.9, Chloride Level 107, Carbon Dioxide Level 33H, Anion Gap 1L, Blood Urea Nitrogen 26H, Creatinine 0.5L, Estimat Glomerular Filtration Rate > 60, Glucose Level 108H, Calcium Level 8.7, Phosphorus Level 2.4L, Magnesium Level 1.8 Height (Feet): 5 Height (Inches): 4.00 Weight (Pounds): 149 General Appearance: WD/WN EENT: PERRL/EOMI, other - ngt ett Neck: non-tender Cardiovascular: normal rate Respiratory/Chest: decreased breath sounds Abdomen: normal bowel sounds Edema: trace edema Neurologic: audio visual project manager II-XII grossly normal Assessment/Plan Status: stable Assessment/Plan: 70-year-old female history of dementia, cachexia, dysphasia G-tube dependent feeding presents for evaluation of rapid heart rate and hypotension. # Septic with element of cardiogenic shock Etiology COVID 19 vs UTI vs bacteremia / contaminant and NSTEMI Bcx POSITIVE WITH G+ Cocci U cx 05/14 Proteus Mirabillis Continue Meropenem DAY 13/14 Vancomycin stopped stopped Cefepime Dexamethasone 10 day course completed Leukocytosis improved. # Acute respiratory failure Intubated and not ready to wean off. Self extubated 05/27 and re intubated by ED MD successfully. ICU care appreciated Dr. Enriquez following Ventilator management per ICU-pulmonary FiO2 45 % today. T piece. Medically tracheostomy is needed as she is not tolera ting wean off. Overall, her quality of life will not improve from prior baseline with advanced dementia. Will need permanent ventilator support via tracheostomy and subacute level of care. # SVT vs A. Flutter s/p DC x 3 # NSTEMI HR is controlled in the 100 range and tolerating Digoxin Vasopressors in place Levophed at [address] Morillo requested and TTE requested and poor window. Limited due to covid positive Troponin 3.4 now 0.7 EKG 05/17 NSR # AG metabolic acidosis Ddx lactic acidosis Improved. # Hyperglycemia r/o DKA ABG and Ketones negative Endocrine consult with Dr. Shelley IV insulin gtt stopped and in SQ insulin coverage now # Hypernatremia Improving Monitor BMP # COVID 19 Positive on admission. Original infection > 15 days ago, do not qualify for Revdisimir or plasma On Dexamethasone completed 10 day course Contact and droplet isolation # Dysphagia PEG REMOVED 05/16 Carlo Vargas consulted and appreciate follow up and final plan for PEG replacement PENDING. PEG site with dressing in place and OFF PEG for now. NGT placed and Tube feeds started 05/18 and being tolerated at 45 cc hr Glucerna 1.2 # Severe protein caloric malnutrition with Albumin 1.5 RD follow up # Thrombocytopenia Platelets down from 80 K to 64 K to 66 K ( OFF Heparin ) and improved to normal range. 05/17 dc heparin, use SCD, order US Liver, HIT Ab, HIV negative US legs to r.o dvt per [facility] policy # Hypokalemia Improved # Dementia Baseline # FULL CODE SW follow up to reach out to DPOA and consider change in code status due to high morbidity and risk of inpatient mortality. Paperwork completed for superior court of the [facility] for request of tracheostomy and gastrostomy placement due to medical need on 05/26/20 Bioethic consult requested and spoke with Dr. Hung from ethics and I agree with his assessment that the patient quality of life will NOT IMPROVE with tracheostomy and replacement of PEG. The patient is very limited due to her underlying dementia and now unable to wean off the ventilator. Terminal extubation and DNR is medically recommended and will await court decision on the matter. > 50 min spent in coordination of care and consultation with physicians and RN. Jessica Wade MD May 29, 2020 13:17
--- NOTE | 2020-05-29 15:00 | NUR ---
NURSE NOTES: PT stable no resp distress presented,oral /endotracheal secretions suctioned PRN.
--- NOTE | 2020-05-29 17:00 | NUR ---
NURSE NOTES: Pt had BM to mod amount of brown formed stools,bed bath given,pulled up repositioned ,HOB elevated 30 degrees.
--- NOTE | 2020-05-29 18:59 | NUR ---
NURSE HAND-OFF REPORT: Latest Vital Signs: Temperature 98.5 , Pulse 48 , B/P 140 /93 , Respiratory Rate 14 , O2 SAT 95 , Mechanical Ventilator, O2 Flow Rate 12.0 . Vital Sign Comment: Bradycardia,HR 44/min,asymptomatic EKG Rhythm: Sinus Bradycardia Rhythm change?: N Notified?: N Response: No New Orders Received Latest Garza Fall Score: 50 Fall Risk: High Risk Safety Measures: Call light Within Reach, Bed Alarm Zone 1, Side Rails Side Rails x2, Bed position Low and Locked. Fall Precautions: Door Sign Report given to Brittany Díaz RN..
[2020-05-29] MEDS ORDERED: Atropine Sulfate 0.4mg/ml inj ONE (19:18)
[2020-05-29] MEDS ORDERED: Atropine Sulfate 0.4mg/ml inj IVP PRN (19:25)
--- NOTE | 2020-05-29 19:30 | NUR ---
NURSE NOTES: Report received from SARA Elias. Observed pt lying in the bed. noted pt HR of 40s, the lowest 31. notified, new order received, and carried out. Pt arousable by shaking. ETT, Vent setting changed to AC 12, TV 500, FIO2 40%, PEEP 5, saturating at 100%. NGT on L nares, running Glucerna 1.2 at 60cc/hr. R IJ triple lumen noted and running 1/2 NS at 75cc/hr. Bed in the lowest position. Side rails up x3. will continue to monitor.
--- NOTE | 2020-05-29 20:15 | NUR ---
NURSE NOTES: Noted pt HR of 40s after 1 dose of atropine 0.4 mg per order. notified and EKG was done, no new order at this time. Will continue to monitor .
[2020-05-29] MEDS: Dyna-Hex 2% Top Sol 2oz TOPIC SCH (21:03)
[2020-05-29] MEDS: Atropine Sulfate 0.4mg/ml inj IVP PRN (21:41)
--- NOTE | 2020-05-29 22:00 | NUR ---
NURSE NOTES: Pt lying in the bed. HR of 50 noted at this time. Reposition done. Oral care given. BP of 99/59 noted. Tolerating current vent setting, saturating at 99%. Will continue to montor .
[2020-05-30] VITALS (32 sets, daily range): BP systolic 77–160; BP diastolic 41–83
--- NOTE | 2020-05-30 00:10 | NUR ---
NURSE NOTES: Noted HR of 50s. Other VS WNL. Tolerating current vent setting, saturating at 100%. NGT intact, no residual noted, flushing well. F/C intact and draining well, yellow urine noted average hourly out put of 120ml noted. Reposition done. Oral care given. Will continue to monitor .
[2020-05-30] MEDS: Vasopressin 100 UNITS in NS 95 ML IV SCH (00:15)
[2020-05-30] MEDS: Phenylephrine 100 MG in D5W 240 ML IV SCH (00:15)
--- NOTE | 2020-05-30 01:50 | NUR ---
NURSE NOTES: Pt lying in the bed, sleeping, arousable. HR of 48 noted. BP of 90/52. Tolerating current vent setting, saturating at 100%. Reposition done. Oral care given. Will continue to monitor.
--- NOTE | 2020-05-30 03:00 | NUR ---
NURSE NOTES: Bed bath given. Noted pt HR between 48-55 at this time. Pt lying in the bed, arousable. Will continue to monitor.
--- NOTE | 2020-05-30 04:30 | NUR ---
NURSE NOTES: Noted BP of 78/47, Levophed started with 6mcg/min. HR of 39 noted and atropine 0.4mg prn given. Will continue to monitor.
[2020-05-30] MEDS: Atropine Sulfate 0.4mg/ml inj IVP PRN ×4 (04:42→22:39)
[2020-05-30] MEDS: NovoLOG Insulin Flexpen SUBQ SCH ×4 (06:00→17:57)
--- NOTE | 2020-05-30 06:33 | NUR ---
NURSE NOTES: Pt on Levophed at 2mcg/min, BP of 112/63; Noted pt bp of 142/74 with 4mgc/min and 77/47 without drip. HR of 54 at this time; pt arousable. Will continue to monitor.
[2020-05-30 06:43] LABS: BASOPHILS % (AUTO) 0.8 % (0.0-2.0); EOSINOPHILS % (AUTO) 0.7 % (0.0-3.0); HEMATOCRIT 29.4 % (37.0-47.0); LYMPHOCYTES % (AUTO) 7.9 % (20.0-45.0); MEAN CORPUSCULAR VOLUME 92 FL (80-99); MONOCYTES % (AUTO) 5.8 % (1.0-10.0); NEUTROPHILS % (AUTO) 84.8 % (45.0-75.0); PLATELET COUNT 203 K/UL (150-450); WHITE BLOOD COUNT 6.6 K/UL (4.8-10.8)
--- NOTE | 2020-05-30 06:50 | General Progress Note ---
Subjective ROS Limited/Unobtainable: Yes Allergies: Coded Allergies: DIVALPROEX SODIUM (Verified Allergy, Unknown, 05/14/20) PENICILLINS (Verified Allergy, Unknown, 05/14/20) Subjective events noted and interval notes reviewed glucose values are stable remained intubated Item Value Date Time Bedside Blood Glucose 106 mg/dl 05/30/20 0600 Bedside Blood Glucose 116 mg/dl 05/30/20 0000 Bedside Blood Glucose 116 mg/dl 05/29/20 1820 Bedside Blood Glucose 118 mg/dl 05/29/20 1200 Bedside Blood Glucose 119 mg/dl 05/29/20 0600 Bedside Blood Glucose 116 mg/dl 05/29/20 0000 Objective Last 24 Hour Vital Signs Date Time Temp Pulse Resp B/P (MAP) Pulse Ox O2 Delivery O2 Flow Rate FiO2 05/30/20 06:30 56 12 05/30/20 06:30 54 12 113/67 (82) 100 05/30/20 06:10 56 12 112/83 (93) 100 05/30/20 06:05 105/62 05/30/20 06:00 67 12 77/47 (57) 100 05/30/20 06:00 77/47 05/30/20 05:45 66 12 142/74 (96) 100 05/30/20 05:45 142/74 05/30/20 05:30 67 12 97/63 (74) 98 05/30/20 05:30 97/63 05/30/20 05:15 138/71 05/30/20 05:15 70 16 138/71 (93) 100 05/30/20 05:00 74 16 141/75 (97) 100 05/30/20 05:00 141/75 05/30/20 04:45 81 16 160/78 (105) 99 05/30/20 04:45 160/78 05/30/20 04:40 81/48 05/30/20 04:35 78/47 05/30/20 04:34 47 13 78/47 (57) 100 05/30/20 04:00 50 14 84/45 (58) 100 05/30/20 04:00 Mechanical Ventilator 05/30/20 04:00 40 05/30/20 04:00 46 05/30/20 03:10 44 14 40 05/30/20 03:00 45 13 88/51 (63) 100 05/30/20 02:00 50 15 100/54 (69) 100 05/30/20 01:00 49 13 90/52 (65) 99 05/30/20 00:15 48 95/52 05/30/20 00:00 46 05/30/20 00:00 Mechanical Ventilator 05/30/20 00:00 40 05/30/20 00:00 98.2 48 14 95/52 (66) 100 05/29/20 23:00 48 13 99/59 (72) 100 05/29/20 23:00 49 13 99/47 (64) 100 05/29/20 22:50 46 14 40 05/29/20 22:00 48 13 99/59 (72) 100 05/29/20 21:00 47 14 128/66 (86) 100 05/29/20 20:00 61 05/29/20 20:00 98.2 58 15 146/79 (101) 100 05/29/20 20:00 Mechanical Ventilator 05/29/20 20:00 40 05/29/20 19:07 44 13 40 05/29/20 19:00 48 17 124/79 (94) 99 05/29/20 18:00 48 14 140/93 (109) 95 05/29/20 17:17 107/61 05/29/20 17:00 47 18 122/65 (84) 100 05/29/20 16:00 68 05/29/20 16:00 55 23 107/61 (76) 100 05/29/20 16:00 Mechanical Ventilator 05/29/20 16:00 40 05/29/20 16:00 98.5 05/29/20 15:05 61 24 40 05/29/20 15:00 56 24 125/65 (85) 100 05/29/20 15:00 55 15 130/77 (94) 99 05/29/20 14:00 67 22 117/62 (80) 100 05/29/20 13:00 65 19 115/52 (73) 100 05/29/20 12:00 98.0 65 16 128/63 (84) 100 05/29/20 12:00 Mechanical Ventilator 05/29/20 12:00 40 05/29/20 12:00 60 05/29/20 11:05 76 29 40 05/29/20 11:00 65 22 127/97 (107) 100 05/29/20 10:00 47 16 111/62 (78) 100 05/29/20 09:00 67 16 91/59 (70) 96 05/29/20 08:00 98.5 62 15 95/57 (70) 100 05/29/20 08:00 40 05/29/20 08:00 Mechanical Ventilator 05/29/20 08:00 70 05/29/20 07:05 62 15 40 05/29/20 07:00 64 16 90/58 (69) 96 05/29/20 07:00 63 18 103/73 (83) 100 Intake and Output 05/29/20 05/30/20 19:00 07:00 Intake Total 1925 ml 1185 ml Output Total 1887 ml 1390 ml Balance 38 ml -205 ml Free Water 200 ml 150 ml IV Total 825 ml 375 ml Tube Feeding 720 ml 660 ml Other 180 ml Output Urine Total 1887 ml 1390 ml # Bowel Movements 1 1 Laboratory Tests 05/29/20 17:03: POC Whole Blood Glucose 116H 05/30/20 04:20: White Blood Count [Pending], Red Blood Count [Pending], Hemoglobin [Pending], Hematocrit [Pending], Mean Corpuscular Volume [Pending], Mean Corpuscular Hemoglobin [Pending], Mean Corpuscular Hemoglobin Concent [Pending], Red Cell Distribution Width [Pending], Platelet Count [Pending], Mean Platelet Volume [Pending], Neutrophils (%) (Auto) [Pending], Lymphocytes (%) (Auto) [Pending], Monocytes (%) (Auto) [Pending], Eosinophils (%) (Auto) [Pending], Basophils (%) (Auto) [Pending], Sodium Level [Pending], Potassium Level [Pending], Chloride Level [Pending], Carbon Dioxide Level [Pending], Blood Urea Nitrogen [Pending], Creatinine [Pending], Estimat Glomerular Filtration Rate [Pending], Glucose Level [Pending], Calcium Level [Pending], Magnesium Level [Pending] Height (Feet): 5 Height (Inches): 4.00 Weight (Pounds): 149 Objective Current Medications Medications (Trade) Dose Ordered Sig/Morgan Route PRN Reason Start Time Stop Time Status Last Admin Dose Admin Acetaminophen (Tylenol) 650 mg Q4H PRN GT Temp >100.5 05/16/20 06:15 06/15/20 06:14 05/21/20 20:01 Acetaminophen (Tylenol) 650 mg Q4H PRN RECTAL Temp >100.5 05/16/20 19:45 06/15/20 19:44 05/17/20 18:30 Atropine Sulfate (Atropine 0.4mg/ ml) 0.4 mg Q2HR PRN IVP HR <45 05/29/20 21:30 06/28/20 19:24 05/30/20 04:42 Chlorhexidine Gluconate (Lilliam-Hex 2%) 1 applic DAILY@2000 TOPIC 05/15/20 20:00 08/13/20 19:59 05/29/20 21:03 Dextrose (Dextrose 50%) 25 ml Q30M PRN IV Hypoglycemia 05/22/20 00:00 08/20/20 00:00 Dextrose (Dextrose 50%) 50 ml Q30M PRN IV Hypoglycemia 05/22/20 00:00 08/20/20 00:00 Insulin Aspart (NovoLOG) EVERY 6 HOURS SUBQ 05/22/20 06:00 08/20/20 05:59 05/27/20 05:57 Midodrine (Pro-Amatine) 10 mg TID ORAL 05/23/20 09:00 08/21/20 08:59 05/29/20 17:17 Norepinephrine Bitartrate 8 mg/ Dextrose 250 ml @ 0 mls/hr Q24H IV 05/20/20 18:00 06/19/20 17:59 05/30/20 04:35 Pantoprazole (Protonix) 40 mg DAILY IV 05/15/20 09:00 06/14/20 08:59 05/29/20 09:24 Phenylephrine HCl 100 mg/Dextrose 250 ml @ 0 mls/hr Q24H IV 05/15/20 00:15 06/14/20 00:14 05/15/20 13:28 Sodium Chloride 1,000 ml @ 75 mls/hr [id number] IV 05/15/20 06:45 06/14/20 06:44 05/30/20 03:09 Vasopressin 100 units/Sodium Chloride 100 ml @ 0 mls/hr Q24H IV 05/15/20 00:15 06/14/20 00:14 Zinc Oxide (Zinc Oxide) 1 applic TIDPRN PRN TOPIC Abdominal cramps 05/20/20 13:00 08/18/20 12:59 Assessment/Plan Problem List: (1) COVID-19 ICD Codes: U07.1 - COVID-19 SNOMED: 629055641 (2) Elevated d-dimer ICD Codes: R79.89 - Other specified abnormal findings of blood chemistry SNOMED: 839548874 (3) Rapid atrial fibrillation ICD Codes: I48.91 - Unspecified atrial fibrillation SNOMED: 830540372 (4) Sepsis ICD Codes: A41.9 - Sepsis, unspecified organism SNOMED: 00461311 (5) Respiratory failure ICD Codes: J96.90 - Respiratory failure, unspecified, unspecified whether with hypoxia or hypercapnia SNOMED: 425267572 (6) Renal failure ICD Codes: N19 - Unspecified kidney failure SNOMED: 09740783 (7) Hypernatremia ICD Codes: E87.0 - Hyperosmolality and hypernatremia SNOMED: 146509791 (8) T2DM (type 2 diabetes mellitus) ICD Codes: E11.9 - Type 2 diabetes mellitus without complications SNOMED: 33284930 Status: stable Assessment/Plan: no need for basal insulin continue Novolog sliding scale every 6 hours hypoglycemia protocol in order Chau Shelley MD May 30, 2020 06:50
--- NOTE | 2020-05-30 07:33 | NUR ---
NURSE HAND-OFF REPORT: Important Events on Shift: Episodes of low HR, dropped BP Patient Status: poor Diet: NGT, Glucerna 1.2 at 60cc/hr. Pending Orders: n Pending Results/Labs:n Pending MD notification:n Latest Vital Signs: Temperature 98.2 , Pulse 54 , B/P 101 /63 , Respiratory Rate 12 , O2 SAT 100 , Mechanical Ventilator, O2 Flow Rate 12.0 . Vital Sign Comment: [] EKG Rhythm: Sinus Bradycardia Rhythm change?: Marcella SEYMOUR Notified?: Marcella Cruz MD Response: Order Received& Read Back Latest Garza Fall Score: 50 Fall Risk: High Risk Safety Measures: Call light Within Reach, Bed Alarm Zone 1, Side Rails Side Rails x2, Bed position Low and Locked. Fall Precautions: Door Sign Report given to SARA Xavier.
[2020-05-30 07:35] LABS: ANION GAP 5 mmol/L (5-15); BLOOD UREA NITROGEN 23 mg/dL (7-18); CALCIUM 8.8 MG/DL (8.5-10.1); CARBON DIOXIDE 32 MMOL/L (21-32); CHLORIDE 107 MMOL/L (98-107); CREATININE 0.5 MG/DL (0.55-1.30); SODIUM 143 MMOL/L (136-145)
--- NOTE | 2020-05-30 08:00 | NUR ---
NURSE NOTES: Report received from SARA Wills. Pt lying comfortably in semi-fowlers with no signs of acute distress noted. A+Ox1, with eyes closed, opens eyes to voice. Pt nonverbal and does not follow commands. Pt SR on the monitor @ 76. Respirations even and unlabored on mech vent with ETT 7.5, 23 cm @ the lip. Vent settings AC 12 VT 500, peep of 5, 40% fio2. NG-tube noted running feeding @ prescribed rate. Right IJ TLC running levophed @ 2 mcg/min and fluids @ prescribed rate. Patient has sacral redness, clean and dry, dressed in optifoam. Pt on p200 mattress. All other vitals stable as documented. Bed at lowest position, brakes engaged, siderails x3, bed alarm on, and call light within reach. Pt at stable condition at this time, will continue to monitor.
[2020-05-30] MEDS: Midodrine 10mg tab ORAL SCH ×3 (08:31→17:57)
[2020-05-30] MEDS: Pantoprazole Inj IV SCH (08:31)
--- NOTE | 2020-05-30 09:59 | Surgery Progress Note ---
Surgery Progress Note Subjective Additional Comments Patient seen and examined bedside. Difficult weaning. Patient will likely need tracheostomy. Discussed with PCP and ICU teams. Pending considerations because of conservatorship Objective Last 24 Hour Vital Signs Date Time Temp Pulse Resp B/P (MAP) Pulse Ox O2 Delivery O2 Flow Rate FiO2 05/30/20 08:00 40 05/30/20 07:11 49 12 40 05/30/20 07:00 101/63 05/30/20 07:00 54 12 101/63 (76) 100 05/30/20 06:30 113/67 05/30/20 06:30 56 12 05/30/20 06:30 54 12 113/67 (82) 100 05/30/20 06:15 112/83 05/30/20 06:10 56 12 112/83 (93) 100 05/30/20 06:05 105/62 05/30/20 06:00 67 12 77/47 (57) 100 05/30/20 06:00 77/47 05/30/20 05:45 66 12 142/74 (96) 100 05/30/20 05:45 142/74 05/30/20 05:30 67 12 97/63 (74) 98 05/30/20 05:30 97/63 05/30/20 05:15 138/71 05/30/20 05:15 70 16 138/71 (93) 100 05/30/20 05:00 74 16 141/75 (97) 100 05/30/20 05:00 141/75 05/30/20 04:45 81 16 160/78 (105) 99 05/30/20 04:45 160/78 05/30/20 04:40 81/48 05/30/20 04:35 78/47 05/30/20 04:34 47 13 78/47 (57) 100 05/30/20 04:00 50 14 84/45 (58) 100 05/30/20 04:00 Mechanical Ventilator 05/30/20 04:00 40 05/30/20 04:00 46 05/30/20 03:10 44 14 40 05/30/20 03:00 45 13 88/51 (63) 100 05/30/20 02:00 50 15 100/54 (69) 100 05/30/20 01:00 49 13 90/52 (65) 99 05/30/20 00:15 48 95/52 05/30/20 00:00 46 05/30/20 00:00 Mechanical Ventilator 05/30/20 00:00 40 05/30/20 00:00 98.2 48 14 95/52 (66) 100 05/29/20 23:00 48 13 99/59 (72) 100 05/29/20 23:00 49 13 99/47 (64) 100 05/29/20 22:50 46 14 40 05/29/20 22:00 48 13 99/59 (72) 100 05/29/20 21:00 47 14 128/66 (86) 100 05/29/20 20:00 61 05/29/20 20:00 98.2 58 15 146/79 (101) 100 05/29/20 20:00 Mechanical Ventilator 05/29/20 20:00 40 05/29/20 19:07 44 13 40 05/29/20 19:00 48 17 124/79 (94) 99 05/29/20 18:00 48 14 140/93 (109) 95 05/29/20 17:17 107/61 05/29/20 17:00 47 18 122/65 (84) 100 05/29/20 16:00 68 05/29/20 16:00 55 23 107/61 (76) 100 05/29/20 16:00 Mechanical Ventilator 05/29/20 16:00 40 05/29/20 16:00 98.5 05/29/20 15:05 61 24 40 05/29/20 15:00 56 24 125/65 (85) 100 05/29/20 15:00 55 15 130/77 (94) 99 05/29/20 14:00 67 22 117/62 (80) 100 05/29/20 13:00 65 19 115/52 (73) 100 05/29/20 12:00 98.0 65 16 128/63 (84) 100 05/29/20 12:00 Mechanical Ventilator 05/29/20 12:00 40 05/29/20 12:00 60 05/29/20 11:05 76 29 40 05/29/20 11:00 65 22 127/97 (107) 100 05/29/20 10:00 47 16 111/62 (78) 100 I&O Intake and Output 05/29/20 05/30/20 19:00 07:00 Intake Total 1925 ml 1245 ml Output Total 1887 ml 1510 ml Balance 38 ml -265 ml Free Water 200 ml 150 ml IV Total 825 ml 375 ml Tube Feeding 720 ml 720 ml Other 180 ml Output Urine Total 1887 ml 1510 ml # Bowel Movements 1 1 Dressing: other Wound: other Cardiovascular: RSR Respiratory: decreased breath sounds Abdomen: soft, non-tender, present bowel sounds Extremities: no cyanosis Laboratory Tests Test 05/29/20 17:03 05/30/20 04:20 POC Whole Blood Glucose 116 MG/DL (74-106) H White Blood Count 6.6 K/UL (4.8-10.8) Red Blood Count 3.20 M/UL (4.20-5.40) L Hemoglobin 10.0 G/DL (12.0-16.0) L Hematocrit 29.4 % (37.0-47.0) L Mean Corpuscular Volume 92 FL (80-99) Mean Corpuscular Hemoglobin 31.2 PG (27.0-31.0) H Mean Corpuscular Hemoglobin Concent 34.0 G/DL (32.0-36.0) Red Cell Distribution Width 14.0 % (11.6-14.8) Platelet Count 203 K/UL (150-450) Mean Platelet Volume 8.2 FL (6.5-10.1) Neutrophils (%) (Auto) 84.8 % (45.0-75.0) H Lymphocytes (%) (Auto) 7.9 % (20.0-45.0) L Monocytes (%) (Auto) 5.8 % (1.0-10.0) Eosinophils (%) (Auto) 0.7 % (0.0-3.0) Basophils (%) (Auto) 0.8 % (0.0-2.0) Sodium Level 143 MMOL/L (136-145) Potassium Level 4.0 MMOL/L (3.5-5.1) Chloride Level 107 MMOL/L (98-107) Carbon Dioxide Level 32 MMOL/L (21-32) Anion Gap 5 mmol/L (5-15) Blood Urea Nitrogen 23 mg/dL (7-18) H Creatinine 0.5 MG/DL (0.55-1.30) L Estimat Glomerular Filtration Rate > 60 mL/min (>60) Glucose Level 119 MG/DL (74-106) H Calcium Level 8.8 MG/DL (8.5-10.1) Magnesium Level 1.9 MG/DL (1.8-2.4) Plan Problems: (1) Hypernatremia (2) Renal failure (3) Respiratory failure (4) Sepsis Assessment & Plan: COVID + leukocytosis anemia electrolytes abnormal on iv fluids renal input appreciated cxr noted abx as per ID will follow with recs Will likely need trach difficult weaning conservatorship working with case management social work to figure out goals of care Interim placement of orogastric tube, also documented on recent abdominal radiograph. Stable satisfactory position of endotracheal tube and right jugular central venous catheter. There is increased pleural fluid and likely left basilar consolidation/atelectasis. The right lung and pleural space remain clear. Impression: Increasing left pleural fluid and likely basilar consolidation/atelectasis. Interim orogastric intubation DAILY ESTIMATED NEEDS: Needs based on Pulmonary, DM, wounds 66.6kg 25-30 kcals/kg 8919-0477 total kcals 1.25-1.5 g protein/kg 83-100 g total protein 20-25 mL/kg 1835-1586 total fluid mLs NUTRITION DIAGNOSIS: Swallowing difficulty r/t dysphagia as evidenced by h/o CVA, pt is GT dep, currently ICU status, now intubated, off pressor support, GT feeds initiated. CURRENT TF:Glucerna 1.2 @45ml/hr ENTERAL NUTRITION RECOMMENDATIONS: As medically able: GLUCERNA 1.5 goal of 45ml/hr x24 hrs to provide 1080ml, 1620 kcal, 89g pro, 820ml free H2O -> as medically able without aspiration risk start Glucerna 1.5 @low rate 25ml/hr for 6 hrs. Advance as tolerated 10ml/hr q4-6 hrs to goal. - Flush per MD, HOB over 30 degrees. ---- If not hemodynamically stable, rec trophic feeds of 5-10ml/hr to maintain gut integrity. ADDITIONAL RECOMMENDATIONS: 1) Obtain an accurate calibrated bed scale wt 2) F/up w/ H&P 3) With active TF orders, add JASMYN BID for noted DTPI wounds 4) TF recs as above when off bipap and w/ hemodynamic stability -> Now intubated, off pressors, on GT feeds. he spleen size is normal. The gallbladder contains sludge. No stones. No wall thickening nor pericholecystic fluid. Common bile duct measures 4 mm in diameter. Small amount free fluid is seen adjacent to the liver and spleen Impression: Gallbladder sludge. Negative for dilated bile ducts Normal appearing liver and spleen (5) Elevated d-dimer (6) COVID-19 Assessment & Plan: ++ (7) Pressure ulcer Assessment & Plan: Pt presented on admission with multiple Pressure injuries.DTPI noted to R Buttocks (L)3.8cm x (W)3.4cm. Base of wound is purpuric,fluctuant with surrounding maroon and indurated borders. DTPI Upper L Buttocks(L)5.5cm x (W)4cm. Base of wound is maroon and indurated. Borders are irregular. Non-Blanchable erythema without induration/fluctuance L lower buttocks(L)4cm x (W)7cm. R and L heels are soft but blanchable. Erosion noted at peristomal GT site. Site is erythematous and excoriated. Small amt. sanguineous exudate. Tx.Plan: Apply Moisture Barrier Paste to Sacrum, R and L Buttocks. Cover each area with Optifoam drsg. Change every 3 days and prn. Apply Moisture Barrier Paste to R and L Ischial tuberosities with each incontinence care. Apply Cavilon Skin Barrier to both heels. Cover each heel and malleoli with Optifoam drsg. Change every 7 days and prn. Reposition at least every 2hours or as tolerated. Off-load heels with pillow. APM/DARIN Mattress overlay. Apply Zinc Oxide Paste TID to GT site. Leave open to Air. (8) Dementia (9) CVA (cerebral vascular accident) (10) T2DM (type 2 diabetes mellitus) (11) Gastrostomy present (12) COVID-19 (13) Rapid atrial fibrillation Paul Garcia May 30, 2020 09:59
--- NOTE | 2020-05-30 10:05 | NUR ---
NURSE NOTES: oral care done and pt respositioned.
--- NOTE | 2020-05-30 10:35 | General Progress Note ---
Subjective ROS Limited/Unobtainable: No Allergies: Coded Allergies: DIVALPROEX SODIUM (Verified Allergy, Unknown, 05/14/20) PENICILLINS (Verified Allergy, Unknown, 05/14/20) Objective Last 24 Hour Vital Signs Date Time Temp Pulse Resp B/P (MAP) Pulse Ox O2 Delivery O2 Flow Rate FiO2 05/30/20 08:00 40 05/30/20 07:11 49 12 40 05/30/20 07:00 101/63 05/30/20 07:00 54 12 101/63 (76) 100 05/30/20 06:30 113/67 05/30/20 06:30 56 12 05/30/20 06:30 54 12 113/67 (82) 100 05/30/20 06:15 112/83 05/30/20 06:10 56 12 112/83 (93) 100 05/30/20 06:05 105/62 05/30/20 06:00 67 12 77/47 (57) 100 05/30/20 06:00 77/47 05/30/20 05:45 66 12 142/74 (96) 100 05/30/20 05:45 142/74 05/30/20 05:30 67 12 97/63 (74) 98 05/30/20 05:30 97/63 05/30/20 05:15 138/71 05/30/20 05:15 70 16 138/71 (93) 100 05/30/20 05:00 74 16 141/75 (97) 100 05/30/20 05:00 141/75 05/30/20 04:45 81 16 160/78 (105) 99 05/30/20 04:45 160/78 05/30/20 04:40 81/48 05/30/20 04:35 78/47 05/30/20 04:34 47 13 78/47 (57) 100 05/30/20 04:00 50 14 84/45 (58) 100 05/30/20 04:00 Mechanical Ventilator 05/30/20 04:00 40 05/30/20 04:00 46 05/30/20 03:10 44 14 40 05/30/20 03:00 45 13 88/51 (63) 100 05/30/20 02:00 50 15 100/54 (69) 100 05/30/20 01:00 49 13 90/52 (65) 99 05/30/20 00:15 48 95/52 05/30/20 00:00 46 05/30/20 00:00 Mechanical Ventilator 05/30/20 00:00 40 05/30/20 00:00 98.2 48 14 95/52 (66) 100 05/29/20 23:00 48 13 99/59 (72) 100 05/29/20 23:00 49 13 99/47 (64) 100 05/29/20 22:50 46 14 40 05/29/20 22:00 48 13 99/59 (72) 100 05/29/20 21:00 47 14 128/66 (86) 100 05/29/20 20:00 61 05/29/20 20:00 98.2 58 15 146/79 (101) 100 05/29/20 20:00 Mechanical Ventilator 05/29/20 20:00 40 05/29/20 19:07 44 13 40 05/29/20 19:00 48 17 124/79 (94) 99 05/29/20 18:00 48 14 140/93 (109) 95 05/29/20 17:17 107/61 05/29/20 17:00 47 18 122/65 (84) 100 05/29/20 16:00 68 05/29/20 16:00 55 23 107/61 (76) 100 05/29/20 16:00 Mechanical Ventilator 05/29/20 16:00 40 05/29/20 16:00 98.5 05/29/20 15:05 61 24 40 05/29/20 15:00 56 24 125/65 (85) 100 05/29/20 15:00 55 15 130/77 (94) 99 05/29/20 14:00 67 22 117/62 (80) 100 05/29/20 13:00 65 19 115/52 (73) 100 05/29/20 12:00 98.0 65 16 128/63 (84) 100 05/29/20 12:00 Mechanical Ventilator 05/29/20 12:00 40 05/29/20 12:00 60 05/29/20 11:05 76 29 40 05/29/20 11:00 65 22 127/97 (107) 100 Intake and Output 05/29/20 05/30/20 19:00 07:00 Intake Total 1925 ml 1245 ml Output Total 1887 ml 1510 ml Balance 38 ml -265 ml Free Water 200 ml 150 ml IV Total 825 ml 375 ml Tube Feeding 720 ml 720 ml Other 180 ml Output Urine Total 1887 ml 1510 ml # Bowel Movements 1 1 Laboratory Tests 05/29/20 17:03: POC Whole Blood Glucose 116H 05/30/20 04:20: White Blood Count 6.6, Red Blood Count 3.20L, Hemoglobin 10.0L, Hematocrit 29.4L , Mean Corpuscular Volume 92, Mean Corpuscular Hemoglobin 31.2H, Mean Corpuscular Hemoglobin Concent 34.0, Red Cell Distribution Width 14.0, Platelet Count 203, Mean Platelet Volume 8.2, Neutrophils (%) (Auto) 84.8H, Lymphocytes (%) (Auto) 7.9L, Monocytes (%) (Auto) 5.8, Eosinophils (%) (Auto) 0.7, Basophils (%) (Auto) 0.8, Sodium Level 143, Potassium Level 4.0, Chloride Level 107, Carbon Dioxide Level 32, Anion Gap 5, Blood Urea Nitrogen 23H, Creatinine 0.5L, Estimat Glomerular Filtration Rate > 60, Glucose Level 119H, Calcium Level 8.8, Magnesium Level 1.9 Height (Feet): 5 Height (Inches): 4.00 Weight (Pounds): 149 General Appearance: no apparent distress EENT: PERRL/EOMI Neck: supple Cardiovascular: normal rate Respiratory/Chest: decreased breath sounds Abdomen: hypoactive bowel sounds Extremities: non-tender Assessment/Plan Status: stable Assessment/Plan: 1. History of CVA. 2. Dementia. 3. Dysphagia with G-tube. 4. Cachexia. 5. Diabetes. 6. Pressure ulcers. 7. Hypothyroidism. 8. Legal blindness. 9. Currently COVID positive. GT has trice removed NGTF icu care fu [employer] recs consider PEG if plan is to do trach fu labs Jhon Matos MD May 30, 2020 10:35
--- NOTE | 2020-05-30 10:45 | Cardiology Progress Note ---
Assessment/Plan Status: stable Assessment/Plan Assessment/Plan Assessment/Plan 1. [id number] myocardial infarction. Her troponin was 1.258,1.2,1.9, 3.4 and the down to 0.7 EKG does not show any acute ST-T wave abnormality and certainly no ST elevation. Due to septic shock, DCCV and Renal failure. The echocardiogram had poor windows. 2. PAF with RVR. S/P DCCV 3 times No more fib or accelerated junctional rhythm. Can not use beta-ramakrishna or calcium-channel ramakrishna as the patient is still on Levophed. Dig level is 1.6 Patient has converted to NSR 3. S/P Septic shock. Off Levophed, on Midodrine and antibiotic 4. Severe hypernatremia with sodium of 174, BUN of 131, creatinine 2.7 due to dehydration. Sodium is 155 with BUN of 91 and creatinine of 1.9 with IV fluids. 5. Lactic acidosis on antibiotic. 6. Dysphagia, status post PEG placement. GT has trice removed on 05/18 still some drainage from the GT site NGTF GT replacement when more stable per Dr Matos 7. History of CVA and dementia. 8. Respiratory failure, on T piece today Subjective Cardiovascular: Reports: no symptoms Respiratory: Reports: no symptoms Gastrointestinal/Abdominal: Reports: no symptoms Genitourinary: Reports: no symptoms Subjective [employer] Converted to normal sinus Objective Last 24 Hour Vital Signs Date Time Temp Pulse Resp B/P (MAP) Pulse Ox O2 Delivery O2 Flow Rate FiO2 05/30/20 08:00 40 05/30/20 07:11 49 12 40 05/30/20 07:00 101/63 05/30/20 07:00 54 12 101/63 (76) 100 05/30/20 06:30 113/67 05/30/20 06:30 56 12 05/30/20 06:30 54 12 113/67 (82) 100 05/30/20 06:15 112/83 05/30/20 06:10 56 12 112/83 (93) 100 05/30/20 06:05 105/62 05/30/20 06:00 67 12 77/47 (57) 100 05/30/20 06:00 77/47 05/30/20 05:45 66 12 142/74 (96) 100 05/30/20 05:45 142/74 05/30/20 05:30 67 12 97/63 (74) 98 05/30/20 05:30 97/63 05/30/20 05:15 138/71 05/30/20 05:15 70 16 138/71 (93) 100 05/30/20 05:00 74 16 141/75 (97) 100 05/30/20 05:00 141/75 05/30/20 04:45 81 16 160/78 (105) 99 05/30/20 04:45 160/78 05/30/20 04:40 81/48 05/30/20 04:35 78/47 05/30/20 04:34 47 13 78/47 (57) 100 05/30/20 04:00 50 14 84/45 (58) 100 05/30/20 04:00 Mechanical Ventilator 05/30/20 04:00 40 05/30/20 04:00 46 05/30/20 03:10 44 14 40 05/30/20 03:00 45 13 88/51 (63) 100 05/30/20 02:00 50 15 100/54 (69) 100 05/30/20 01:00 49 13 90/52 (65) 99 05/30/20 00:15 48 95/52 05/30/20 00:00 46 05/30/20 00:00 Mechanical Ventilator 05/30/20 00:00 40 05/30/20 00:00 98.2 48 14 95/52 (66) 100 05/29/20 23:00 48 13 99/59 (72) 100 05/29/20 23:00 49 13 99/47 (64) 100 05/29/20 22:50 46 14 40 05/29/20 22:00 48 13 99/59 (72) 100 05/29/20 21:00 47 14 128/66 (86) 100 05/29/20 20:00 61 05/29/20 20:00 98.2 58 15 146/79 (101) 100 05/29/20 20:00 Mechanical Ventilator 05/29/20 20:00 40 05/29/20 19:07 44 13 40 05/29/20 19:00 48 17 124/79 (94) 99 05/29/20 18:00 48 14 140/93 (109) 95 05/29/20 17:17 107/61 9/20/20 17:00 47 18 122/65 (84) 100 05/29/20 16:00 68 05/29/20 16:00 55 23 107/61 (76) 100 05/29/20 16:00 Mechanical Ventilator 05/29/20 16:00 40 05/29/20 16:00 98.5 05/29/20 15:05 61 24 40 05/29/20 15:00 56 24 125/65 (85) 100 05/29/20 15:00 55 15 130/77 (94) 99 05/29/20 14:00 67 22 117/62 (80) 100 05/29/20 13:00 65 19 115/52 (73) 100 05/29/20 12:00 98.0 65 16 128/63 (84) 100 05/29/20 12:00 Mechanical Ventilator 05/29/20 12:00 40 05/29/20 12:00 60 05/29/20 11:05 76 29 40 05/29/20 11:00 65 22 127/97 (107) 100 General Appearance: no apparent distress, alert EENT: PERRL/EOMI, normal ENT inspection, TMs normal, pharynx normal Neck: non-tender, normal alignment, supple, normal inspection, no JVD Rhythm: NSR Cardiovascular: normal peripheral pulses, normal rate, regular rhythm Respiratory/Chest: chest wall non-tender, lungs clear, normal breath sounds Abdomen: normal bowel sounds, non tender, soft Extremities: normal range of motion, non-tender 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, no motor/sensory deficits Intake and Output 05/29/20 05/30/20 19:00 07:00 Intake Total 1925 ml 1245 ml Output Total 1887 ml 1510 ml Balance 38 ml -265 ml Free Water 200 ml 150 ml IV Total 825 ml 375 ml Tube Feeding 720 ml 720 ml Other 180 ml Output Urine Total 1887 ml 1510 ml # Bowel Movements 1 1 Laboratory Tests Test 05/29/20 17:03 05/30/20 04:20 POC Whole Blood Glucose 116 MG/DL (74-106) H White Blood Count 6.6 K/UL (4.8-10.8) Red Blood Count 3.20 M/UL (4.20-5.40) L Hemoglobin 10.0 G/DL (12.0-16.0) L Hematocrit 29.4 % (37.0-47.0) L Mean Corpuscular Volume 92 FL (80-99) Mean Corpuscular Hemoglobin 31.2 PG (27.0-31.0) H Mean Corpuscular Hemoglobin Concent 34.0 G/DL (32.0-36.0) Red Cell Distribution Width 14.0 % (11.6-14.8) Platelet Count 203 K/UL (150-450) Mean Platelet Volume 8.2 FL (6.5-10.1) Neutrophils (%) (Auto) 84.8 % (45.0-75.0) H Lymphocytes (%) (Auto) 7.9 % (20.0-45.0) L Monocytes (%) (Auto) 5.8 % (1.0-10.0) Eosinophils (%) (Auto) 0.7 % (0.0-3.0) Basophils (%) (Auto) 0.8 % (0.0-2.0) Sodium Level 143 MMOL/L (136-145) Potassium Level 4.0 MMOL/L (3.5-5.1) Chloride Level 107 MMOL/L (98-107) Carbon Dioxide Level 32 MMOL/L (21-32) Anion Gap 5 mmol/L (5-15) Blood Urea Nitrogen 23 mg/dL (7-18) H Creatinine 0.5 MG/DL (0.55-1.30) L Estimat Glomerular Filtration Rate > 60 mL/min (>60) Glucose Level 119 MG/DL (74-106) H Calcium Level 8.8 MG/DL (8.5-10.1) Magnesium Level 1.9 MG/DL (1.8-2.4) Erasto Peterson MD May 30, 2020 10:45
--- NOTE | 2020-05-30 12:18 | General Progress Note ---
Subjective Date patient seen: May 30, 2020 Time patient seen: 12:05 ROS Limited/Unobtainable: Yes Allergies: Coded Allergies: DIVALPROEX SODIUM (Verified Allergy, Unknown, 05/14/20) PENICILLINS (Verified Allergy, Unknown, 05/14/20) All Systems: reviewed and negative except above Subjective Non verbal, intubated Objective Last 24 Hour Vital Signs Date Time Temp Pulse Resp B/P (MAP) Pulse Ox O2 Delivery O2 Flow Rate FiO2 05/30/20 11:00 56 12 129/71 (90) 100 05/30/20 10:00 55 12 147/69 (95) 100 05/30/20 09:00 62 12 131/61 (84) 100 05/30/20 08:00 98.8 48 12 107/63 (78) 100 05/30/20 08:00 40 05/30/20 07:11 49 12 40 05/30/20 07:00 101/63 05/30/20 07:00 54 12 101/63 (76) 100 05/30/20 06:30 113/67 05/30/20 06:30 56 12 05/30/20 06:30 54 12 113/67 (82) 100 05/30/20 06:15 112/83 05/30/20 06:10 56 12 112/83 (93) 100 05/30/20 06:05 105/62 05/30/20 06:00 67 12 77/47 (57) 100 05/30/20 06:00 77/47 05/30/20 05:45 66 12 142/74 (96) 100 05/30/20 05:45 142/74 05/30/20 05:30 67 12 97/63 (74) 98 05/30/20 05:30 97/63 05/30/20 05:15 138/71 05/30/20 05:15 70 16 138/71 (93) 100 05/30/20 05:00 74 16 141/75 (97) 100 05/30/20 05:00 141/75 05/30/20 04:45 81 16 160/78 (105) 99 05/30/20 04:45 160/78 05/30/20 04:40 81/48 05/30/20 04:35 78/47 05/30/20 04:34 47 13 78/47 (57) 100 05/30/20 04:00 50 14 84/45 (58) 100 05/30/20 04:00 Mechanical Ventilator 05/30/20 04:00 40 05/30/20 04:00 46 05/30/20 03:10 44 14 40 05/30/20 03:00 45 13 88/51 (63) 100 05/30/20 02:00 50 15 100/54 (69) 100 05/30/20 01:00 49 13 90/52 (65) 99 05/30/20 00:15 48 95/52 05/30/20 00:00 46 05/30/20 00:00 Mechanical Ventilator 05/30/20 00:00 40 05/30/20 00:00 98.2 48 14 95/52 (66) 100 05/29/20 23:00 48 13 99/59 (72) 100 05/29/20 23:00 49 13 99/47 (64) 100 05/29/20 22:50 46 14 40 05/29/20 22:00 48 13 99/59 (72) 100 05/29/20 21:00 47 14 128/66 (86) 100 05/29/20 20:00 61 05/29/20 20:00 98.2 58 15 146/79 (101) 100 05/29/20 20:00 Mechanical Ventilator 05/29/20 20:00 40 05/29/20 19:07 44 13 40 05/29/20 19:00 48 17 124/79 (94) 99 05/29/20 18:00 48 14 140/93 (109) 95 05/29/20 17:17 107/61 05/29/20 17:00 47 18 122/65 (84) 100 05/29/20 16:00 68 05/29/20 16:00 55 23 107/61 (76) 100 05/29/20 16:00 Mechanical Ventilator 05/29/20 16:00 40 05/29/20 16:00 98.5 05/29/20 15:05 61 24 40 05/29/20 15:00 56 24 125/65 (85) 100 05/29/20 15:00 55 15 130/77 (94) 99 05/29/20 14:00 67 22 117/62 (80) 100 05/29/20 13:00 65 19 115/52 (73) 100 Intake and Output 05/29/20 05/30/20 19:00 07:00 Intake Total 1925 ml 1245 ml Output Total 1887 ml 1510 ml Balance 38 ml -265 ml Free Water 200 ml 150 ml IV Total 825 ml 375 ml Tube Feeding 720 ml 720 ml Other 180 ml Output Urine Total 1887 ml 1510 ml # Bowel Movements 1 1 Laboratory Tests 05/29/20 17:03: POC Whole Blood Glucose 116H 05/30/20 04:20: White Blood Count 6.6, Red Blood Count 3.20L, Hemoglobin 10.0L, Hematocrit 29.4L , Mean Corpuscular Volume 92, Mean Corpuscular Hemoglobin 31.2H, Mean Corpuscular Hemoglobin Concent 34.0, Red Cell Distribution Width 14.0, Platelet Count 203, Mean Platelet Volume 8.2, Neutrophils (%) (Auto) 84.8H, Lymphocytes (%) (Auto) 7.9L, Monocytes (%) (Auto) 5.8, Eosinophils (%) (Auto) 0.7, Basophils (%) (Auto) 0.8, Sodium Level 143, Potassium Level 4.0, Chloride Level 107, Carbon Dioxide Level 32, Anion Gap 5, Blood Urea Nitrogen 23H, Creatinine 0.5L, Estimat Glomerular Filtration Rate > 60, Glucose Level 119H, Calcium Level 8.8, Magnesium Level 1.9 Height (Feet): 5 Height (Inches): 4.00 Weight (Pounds): 149 General Appearance: WD/WN EENT: PERRL/EOMI Neck: non-tender Cardiovascular: normal rate Respiratory/Chest: decreased breath sounds Abdomen: normal bowel sounds 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 # Septic with element of cardiogenic shock Etiology COVID 19 vs UTI vs bacteremia / contaminant and NSTEMI Bcx POSITIVE WITH G+ Cocci s/p vancomycin Sputum Cx 05/25 reviewed today with Pseudomonas. Dr. Terry updated and she will adjust antibiotics as needed. U cx 05/14 Proteus Mirabillis Continue Meropenem 13 days completed Vancomycin stopped stopped Cefepime Dexamethasone 10 day course completed Leukocytosis improved. # Acute respiratory failure Intubated and not ready to wean off. Self extubated 05/27 and re intubated by ED MD successfully. ICU care appreciated Dr. Enriquez following Ventilator management per ICU-pulmonary FiO2 40 % today. T piece. Medically tracheostomy is needed as she is not tolerating wean off. Overall, her quality of life will not improve from prior baseline with advanced dementia. Will need permanent ventilator support via tracheostomy and subacute level of care. Critical care attending, Surgery and GI attendings notified to plan PEG and TRACH as medically indicated. # SVT vs A. Flutter s/p DC x 3 # NSTEMI HR is controlled in the 100 range and tolerating Digoxin Vasopressors in place Levophed at [address] Morillo requested and TTE requested and poor window. Limited due to covid positive Troponin 3.4 now 0.7 EKG 05/17 NSR, stable. # AG metabolic acidosis Ddx lactic acidosis Improved. # Hyperglycemia r/o DKA ABG and Ketones negative Endocrine consult with Dr. Shelley IV insulin gtt stopped and in SQ insulin coverage now # Hypernatremia resolved Improving Monitor BMP # COVID 19 Positive on admission. Original infection > 15 days ago, do not qualify for Revdisimir or plasma On Dexamethasone completed 10 day course Contact and droplet isolation # Dysphagia PEG REMOVED 05/16 Carlo Vargas consulted and appreciate follow up and final plan for PEG replacement PENDING. PEG site with dressing in place and OFF PEG for now. NGT placed and Tube feeds started 05/18 and being tolerated at 45 cc hr Glucerna 1.2 # Severe protein caloric malnutrition with Albumin 1.5 RD follow up # Thrombocytopenia Platelets down from 80 K to 64 K to 66 K ( OFF Heparin ) and improved to normal range. 05/17 dc heparin, use SCD, order US Liver, HIT Ab, HIV negative US legs to r.o dvt per [facility] policy # Hypokalemia Improved # Dementia Baseline # FULL CODE SW follow up to reach out to DPOA and consider change in code status due to high morbidity and risk of inpatient mortality. Paperwork completed for superior court of the [facility] [place] for request of tracheostomy and gastrostomy placement due to medical need on 05/26/20 Bioethic consult requested and spoke with Dr. Hung from ethics and I agree with his assessment that the patient quality of life will NOT IMPROVE with tracheostomy and replacement of PEG. The patient is very limited due to her underlying dementia and now unable to wean off the ventilator. Terminal extubation and DNR is medically recommended and there is NO FAMILY, CONSERVATOR refused to make a decision. Court decision on the matter submitted and PENDING. Due to the medical need for TRACH and PEG, this will be scheduled at this time. > 50 min spent in coordination of care and consultation with physicians and RN. Jessica Wade MD May 30, 2020 12:18
--- NOTE | 2020-05-30 12:19 | NUR ---
NURSE NOTES: Pt suctioned and oral care done. no acute distress noted.
--- NOTE | 2020-05-30 12:50 | Infectious Diseases Prog Note ---
Assessment/Plan 70 yo female with PMHx of Dementia, DM, CVA ( S/P PEG), COVID 19 infection and pressure ulcers. Septic Shock-combination cardiogenic and septic; -back on pressors Gram positive bacteremia- contaminant -05/14 Bcx 1/4 S. haemolyticus; 05/17 Bcx Neg UTI UA (+); ucx 10-20k P. mirabilis (S Ceftriaxone, Cefepime) PNA, superimposed bacterial Recent COVID19 pna- now repeat neg x2 -05/27 CXR: Previously seen left lung atelectasis has nearly completely resolved. Retrocardiac atelectasis without or with some component of consolidation. Low lung volumes with bronchovascular crowding. -05/26 CXR: Complete opacification of the left hemithorax with mediastinal shift to the left likely due to complete atelectasis of the left lung perhaps from mucous plugging. rapid COVID PCR neg -05/25 sp cx MDR PsA (I Ceftazidime, Colistin, Polymixin B); suspect colonzier SARS-COV2 neg -05/24 SARS-COV2 pCR inconclusive -05/23 CXR: Worsening aeration with increasing hazy opacification of the left lung base which may related to increased layering pleural effusion and adjacent atelectasis/consolidation. -05/19 CXR: Increasing left pleural fluid and likely basilar consolidation/atelectasis. Interim orogastric intubation 05/16 CXR: Retrocardiac density may represent atelectasis versus infiltrate. CXR 05/14/20 showed Retrocardiac atelectasis/infiltrate with Pulmonary venous congestion. sp cx MDR E.coli (S Cefepime, Meropenem, Zosyn) Hx of COVID 19 - Bacteria secondary infection? Asp PNA? 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 Negative for dilated bile ducts. Normal appearing liver and spleen. Trace ascites Dementia DM Hx CVA ( S/P PEG) pressure ulcers PLAN -Continue to monitor off abx unless febrile, leukocytosis, worsening hemodynamics -will not treat MDR in sputum at this point as likely is colonizer - 05/27 SP Meropenem #11 -05/24 SP Decadron #11 -05/19 SP IV Vancomcyin #6 -05/17 SP Cefepime #4 - f/u Cultures - Monitor CBC and Temps -Can dc COVID isolation (more than 20days since diagnosis and 2 repeat neg test, afebrile) Thank you for consulting [facility]. Will continue to follow along with you. Discussed with RN and Dr Wade. Subjective Allergies: Coded Allergies: DIVALPROEX SODIUM (Verified Allergy, Unknown, 05/14/20) PENICILLINS (Verified Allergy, Unknown, 05/14/20) afebrile Fio2 40% back on Levophed-at 4 no leukocytosis Objective Last 24 Hour Vital Signs Date Time Temp Pulse Resp B/P (MAP) Pulse Ox O2 Delivery O2 Flow Rate FiO2 05/30/20 11:00 56 12 129/71 (90) 100 05/30/20 10:00 55 12 147/69 (95) 100 05/30/20 09:00 62 12 131/61 (84) 100 05/30/20 08:00 98.8 48 12 107/63 (78) 100 05/30/20 08:00 40 05/30/20 07:11 49 12 40 05/30/20 07:00 101/63 05/30/20 07:00 54 12 101/63 (76) 100 05/30/20 06:30 113/67 05/30/20 06:30 56 12 05/30/20 06:30 54 12 113/67 (82) 100 05/30/20 06:15 112/83 05/30/20 06:10 56 12 112/83 (93) 100 05/30/20 06:05 105/62 05/30/20 06:00 67 12 77/47 (57) 100 05/30/20 06:00 77/47 05/30/20 05:45 66 12 142/74 (96) 100 05/30/20 05:45 142/74 05/30/20 05:30 67 12 97/63 (74) 98 05/30/20 05:30 97/63 05/30/20 05:15 138/71 05/30/20 05:15 70 16 138/71 (93) 100 05/30/20 05:00 74 16 141/75 (97) 100 05/30/20 05:00 141/75 05/30/20 04:45 81 16 160/78 (105) 99 05/30/20 04:45 160/78 05/30/20 04:40 81/48 05/30/20 04:35 78/47 05/30/20 04:34 47 13 78/47 (57) 100 05/30/20 04:00 50 14 84/45 (58) 100 05/30/20 04:00 Mechanical Ventilator 05/30/20 04:00 40 05/30/20 04:00 46 05/30/20 03:10 44 14 40 05/30/20 03:00 45 13 88/51 (63) 100 05/30/20 02:00 50 15 100/54 (69) 100 05/30/20 01:00 49 13 90/52 (65) 99 05/30/20 00:15 48 95/52 05/30/20 00:00 46 05/30/20 00:00 Mechanical Ventilator 05/30/20 00:00 40 05/30/20 00:00 98.2 48 14 95/52 (66) 100 05/29/20 23:00 48 13 99/59 (72) 100 05/29/20 23:00 49 13 99/47 (64) 100 05/29/20 22:50 46 14 40 05/29/20 22:00 48 13 99/59 (72) 100 05/29/20 21:00 47 14 128/66 (86) 100 05/29/20 20:00 61 05/29/20 20:00 98.2 58 15 146/79 (101) 100 05/29/20 20:00 Mechanical Ventilator 05/29/20 20:00 40 05/29/20 19:07 44 13 40 05/29/20 19:00 48 17 124/79 (94) 99 05/29/20 18:00 48 14 140/93 (109) 95 05/29/20 17:17 107/61 05/29/20 17:00 47 18 122/65 (84) 100 05/29/20 16:00 68 05/29/20 16:00 55 23 107/61 (76) 100 05/29/20 16:00 Mechanical Ventilator 05/29/20 16:00 40 05/29/20 16:00 98.5 05/29/20 15:05 61 24 40 05/29/20 15:00 56 24 125/65 (85) 100 05/29/20 15:00 55 15 130/77 (94) 99 05/29/20 14:00 67 22 117/62 (80) 100 05/29/20 13:00 65 19 115/52 (73) 100 Height (Feet): 5 Height (Inches): 4.00 Weight (Pounds): 149 GEN: On Vent HEENT: NCAT, MMM, Intubated Pulm: Equal rise and fall B/L ABD: Soft, ND, PEG Neuro: Not following, Intubated Laboratory Tests Test 05/29/20 17:03 05/30/20 04:20 POC Whole Blood Glucose 116 MG/DL (74-106) H White Blood Count 6.6 K/UL (4.8-10.8) Red Blood Count 3.20 M/UL (4.20-5.40) L Hemoglobin 10.0 G/DL (12.0-16.0) L Hematocrit 29.4 % (37.0-47.0) L Mean Corpuscular Volume 92 FL (80-99) Mean Corpuscular Hemoglobin 31.2 PG (27.0-31.0) H Mean Corpuscular Hemoglobin Concent 34.0 G/DL (32.0-36.0) Red Cell Distribution Width 14.0 % (11.6-14.8) Platelet Count 203 K/UL (150-450) Mean Platelet Volume 8.2 FL (6.5-10.1) Neutrophils (%) (Auto) 84.8 % (45.0-75.0) H Lymphocytes (%) (Auto) 7.9 % (20.0-45.0) L Monocytes (%) (Auto) 5.8 % (1.0-10.0) Eosinophils (%) (Auto) 0.7 % (0.0-3.0) Basophils (%) (Auto) 0.8 % (0.0-2.0) Sodium Level 143 MMOL/L (136-145) Potassium Level 4.0 MMOL/L (3.5-5.1) Chloride Level 107 MMOL/L (98-107) Carbon Dioxide Level 32 MMOL/L (21-32) Anion Gap 5 mmol/L (5-15) Blood Urea Nitrogen 23 mg/dL (7-18) H Creatinine 0.5 MG/DL (0.55-1.30) L Estimat Glomerular Filtration Rate > 60 mL/min (>60) Glucose Level 119 MG/DL (74-106) H Calcium Level 8.8 MG/DL (8.5-10.1) Magnesium Level 1.9 MG/DL (1.8-2.4) Current Medications Medications (Trade) Dose Ordered Sig/Morgan Route PRN Reason Start Time Stop Time Status Last Admin Dose Admin Acetaminophen (Tylenol) 650 mg Q4H PRN GT Temp >100.5 05/16/20 06:15 06/15/20 06:14 05/21/20 20:01 Acetaminophen (Tylenol) 650 mg Q4H PRN RECTAL Temp >100.5 05/16/20 19:45 06/15/20 19:44 05/17/20 18:30 Atropine Sulfate (Atropine 0.4mg/ ml) 0.4 mg Q2HR PRN IVP HR <45 05/29/20 21:30 06/28/20 19:24 05/30/20 08:31 Chlorhexidine Gluconate (Lilliam-Hex 2%) 1 applic DAILY@2000 TOPIC 05/15/20 20:00 08/13/20 19:59 05/29/20 21:03 Dextrose (Dextrose 50%) 25 ml Q30M PRN IV Hypoglycemia 05/22/20 00:00 08/20/20 00:00 Dextrose (Dextrose 50%) 50 ml Q30M PRN IV Hypoglycemia 05/22/20 00:00 08/20/20 00:00 Insulin Aspart (NovoLOG) EVERY 6 HOURS SUBQ 05/22/20 06:00 08/20/20 05:59 05/27/20 05:57 Midodrine (Pro-Amatine) 10 mg TID ORAL 05/23/20 09:00 08/21/20 08:59 05/30/20 11:59 Norepinephrine Bitartrate 8 mg/ Dextrose 250 ml @ 0 mls/hr Q24H IV 05/20/20 18:00 06/19/20 17:59 05/30/20 04:35 Pantoprazole (Protonix) 40 mg DAILY IV 05/15/20 09:00 06/14/20 08:59 05/30/20 08:31 Phenylephrine HCl 100 mg/Dextrose 250 ml @ 0 mls/hr Q24H IV 05/15/20 00:15 06/14/20 00:14 05/15/20 13:28 Sodium Chloride 1,000 ml @ 75 mls/hr [id number] IV 05/15/20 06:45 06/14/20 06:44 05/30/20 03:09 Vasopressin 100 units/Sodium Chloride 100 ml @ 0 mls/hr Q24H IV 05/15/20 00:15 06/14/20 00:14 Zinc Oxide (Zinc Oxide) 1 applic TIDPRN PRN TOPIC Abdominal cramps 05/20/20 13:00 08/18/20 12:59 Yomaira Terry M.D. May 30, 2020 12:50
--- NOTE | 2020-05-30 13:31 | Pulmonology Progress Note ---
Subjective ROS Limited/Unobtainable: Yes Interval Events: Unable to extubtae due to poor mental status Constitutional: Reports: no symptoms HEENT: Repors: no symptoms Respiratory: Reports: no symptoms Cardiovascular: Reports: no symptoms Gastrointestinal/Abdominal: Reports: no symptoms Genitourinary: Reports: no symptoms Allergies: Coded Allergies: DIVALPROEX SODIUM (Verified Allergy, Unknown, 05/14/20) PENICILLINS (Verified Allergy, Unknown, 05/14/20) All Systems: reviewed and negative except above Objective Last 24 Hour Vital Signs Date Time Temp Pulse Resp B/P (MAP) Pulse Ox O2 Delivery O2 Flow Rate FiO2 05/30/20 13:00 53 14 146/74 (98) 100 05/30/20 12:00 40 05/30/20 12:00 99.0 62 13 119/61 (80) 100 05/30/20 11:02 52 12 40 05/30/20 11:00 56 12 129/71 (90) 100 05/30/20 10:00 55 12 147/69 (95) 100 05/30/20 09:00 62 12 131/61 (84) 100 05/30/20 08:00 98.8 48 12 107/63 (78) 100 05/30/20 08:00 40 05/30/20 07:11 49 12 40 05/30/20 07:00 101/63 05/30/20 07:00 54 12 101/63 (76) 100 05/30/20 06:30 113/67 05/30/20 06:30 56 12 05/30/20 06:30 54 12 113/67 (82) 100 05/30/20 06:15 112/83 05/30/20 06:10 56 12 112/83 (93) 100 05/30/20 06:05 105/62 05/30/20 06:00 67 12 77/47 (57) 100 05/30/20 06:00 77/47 05/30/20 05:45 66 12 142/74 (96) 100 05/30/20 05:45 142/74 05/30/20 05:30 67 12 97/63 (74) 98 05/30/20 05:30 97/63 05/30/20 05:15 138/71 05/30/20 05:15 70 16 138/71 (93) 100 05/30/20 05:00 74 16 141/75 (97) 100 05/30/20 05:00 141/75 05/30/20 04:45 81 16 160/78 (105) 99 05/30/20 04:45 160/78 05/30/20 04:40 81/48 05/30/20 04:35 78/47 05/30/20 04:34 47 13 78/47 (57) 100 05/30/20 04:00 50 14 84/45 (58) 100 05/30/20 04:00 Mechanical Ventilator 05/30/20 04:00 40 05/30/20 04:00 46 05/30/20 03:10 44 14 40 05/30/20 03:00 45 13 88/51 (63) 100 05/30/20 02:00 50 15 100/54 (69) 100 05/30/20 01:00 49 13 90/52 (65) 99 05/30/20 00:15 48 95/52 05/30/20 00:00 46 05/30/20 00:00 Mechanical Ventilator 05/30/20 00:00 40 05/30/20 00:00 98.2 48 14 95/52 (66) 100 05/29/20 23:00 48 13 99/59 (72) 100 05/29/20 23:00 49 13 99/47 (64) 100 05/29/20 22:50 46 14 40 05/29/20 22:00 48 13 99/59 (72) 100 05/29/20 21:00 47 14 128/66 (86) 100 05/29/20 20:00 61 05/29/20 20:00 98.2 58 15 146/79 (101) 100 05/29/20 20:00 Mechanical Ventilator 05/29/20 20:00 40 05/29/20 19:07 44 13 40 05/29/20 19:00 48 17 124/79 (94) 99 05/29/20 18:00 48 14 140/93 (109) 95 05/29/20 17:17 107/61 05/29/20 17:00 47 18 122/65 (84) 100 05/29/20 16:00 68 05/29/20 16:00 55 23 107/61 (76) 100 05/29/20 16:00 Mechanical Ventilator 05/29/20 16:00 40 05/29/20 16:00 98.5 05/29/20 15:05 61 24 40 05/29/20 15:00 56 24 125/65 (85) 100 05/29/20 15:00 55 15 130/77 (94) 99 05/29/20 14:00 67 22 117/62 (80) 100 Intake and Output 05/29/20 05/30/20 19:00 07:00 Intake Total 1925 ml 1245 ml Output Total 1887 ml 1510 ml Balance 38 ml -265 ml Free Water 200 ml 150 ml IV Total 825 ml 375 ml Tube Feeding 720 ml 720 ml Other 180 ml Output Urine Total 1887 ml 1510 ml # Bowel Movements 1 1 General Appearance: no acute distress HEENT: normocephalic Respiratory: chest wall non-tender, lungs clear Cardiovascular: normal peripheral pulses, normal rate Abdomen: normal bowel sounds Laboratory Tests 05/29/20 17:03: POC Whole Blood Glucose 116H 05/30/20 04:20: White Blood Count 6.6, Red Blood Count 3.20L, Hemoglobin 10.0L, Hematocrit 29.4L , Mean Corpuscular Volume 92, Mean Corpuscular Hemoglobin 31.2H, Mean Corpuscular Hemoglobin Concent 34.0, Red Cell Distribution Width 14.0, Platelet Count 203, Mean Platelet Volume 8.2, Neutrophils (%) (Auto) 84.8H, Lymphocytes (%) (Auto) 7.9L, Monocytes (%) (Auto) 5.8, Eosinophils (%) (Auto) 0.7, Basophils (%) (Auto) 0.8, Sodium Level 143, Potassium Level 4.0, Chloride Level 107, Carbon Dioxide Level 32, Anion Gap 5, Blood Urea Nitrogen 23H, Creatinine 0.5L, Estimat Glomerular Filtration Rate > 60, Glucose Level 119H, Calcium Level 8.8, Magnesium Level 1.9 Current Medications Medications (Trade) Dose Ordered Sig/Morgan Route PRN Reason Start Time Stop Time Status Last Admin Dose Admin Acetaminophen (Tylenol) 650 mg Q4H PRN GT Temp >100.5 05/16/20 06:15 06/15/20 06:14 05/21/20 20:01 Acetaminophen (Tylenol) 650 mg Q4H PRN RECTAL Temp >100.5 05/16/20 19:45 06/15/20 19:44 05/17/20 18:30 Atropine Sulfate (Atropine 0.4mg/ ml) 0.4 mg Q2HR PRN IVP HR <45 05/29/20 21:30 06/28/20 19:24 05/30/20 08:31 Chlorhexidine Gluconate (Lilliam-Hex 2%) 1 applic DAILY@2000 TOPIC 05/15/20 20:00 08/13/20 19:59 05/29/20 21:03 Dextrose (Dextrose 50%) 25 ml Q30M PRN IV Hypoglycemia 05/22/20 00:00 08/20/20 00:00 Dextrose (Dextrose 50%) 50 ml Q30M PRN IV Hypoglycemia 05/22/20 00:00 08/20/20 00:00 Insulin Aspart (NovoLOG) EVERY 6 HOURS SUBQ 05/22/20 06:00 08/20/20 05:59 05/27/20 05:57 Midodrine (Pro-Amatine) 10 mg TID ORAL 05/23/20 09:00 08/21/20 08:59 05/30/20 11:59 Norepinephrine Bitartrate 8 mg/ Dextrose 250 ml @ 0 mls/hr Q24H IV 05/20/20 18:00 06/19/20 17:59 05/30/20 04:35 Pantoprazole (Protonix) 40 mg DAILY IV 05/15/20 09:00 06/14/20 08:59 05/30/20 08:31 Phenylephrine HCl 100 mg/Dextrose 250 ml @ 0 mls/hr Q24H IV 05/15/20 00:15 06/14/20 00:14 05/15/20 13:28 Sodium Chloride 1,000 ml @ 75 mls/hr [id number] IV 05/15/20 06:45 06/14/20 06:44 05/30/20 03:09 Vasopressin 100 units/Sodium Chloride 100 ml @ 0 mls/hr Q24H IV 05/15/20 00:15 06/14/20 00:14 Zinc Oxide (Zinc Oxide) 1 applic TIDPRN PRN TOPIC Abdominal cramps 05/20/20 13:00 08/18/20 12:59 Assessment/Plan Assessment/Plan IMPRESSION: 1. Acute respiratory failure. 2. Diabetes mellitus with hyperglycemia. 3. Septic shock. 4. Chronic G-tube. 5. Decubitus. 6. History of CHF. DISCUSSION: Continue fluids and antibiotics. Pressors prn Now on T piece On 40% FiO2 DVT and GI prophylaxis. Respiratory precautions due to COVID-[address] Wade. I will follow carefully. Decadron continuing Mental status better however unsafe to extubate Will not be able to maintain airway Recommend trach Needs new PEG Jaskaran Enriquez M.D. Jaskaran Enriquez MD May 30, 2020 13:31
--- NOTE | 2020-05-30 14:15 | NUR ---
NURSE NOTES: Pt resting in bed with eyes closed. Pt shows no signs of acute distress. Repositioned and oral care done.
[2020-05-30] MEDS ORDERED: 1/2 NS 1000ml IV ONE (14:49)
[2020-05-30] MEDS ORDERED: NS 275ml ONE (14:49)
--- NOTE | 2020-05-30 16:19 | NUR ---
NURSE NOTES: bed bath done. Pt turned and repositioned.
--- NOTE | 2020-05-30 16:24 | NUR ---
CASE MANAGEMENT:REVIEW 05/30/20 SI; SEPSIS. COVID (+) . NOW BACK ON MECHANICAL VENT 99.0 53 13 119/61 100% ON MECHANICAL VENT FiO2 40% H/H 10.0/29.4 BUN/CREAT 23/0.5 IS; IV ATROPINE SULFATE Q2HR/PRN IVF NS @ 75 ML/HR PRO-AMATINE PO TID IV LEVOPHED PROTOCOL ICU STATUS DCP: [facility]V WHEN STABLE PLAN: NOT ABLE TO WEAN OFF VENT BACK ON LEVOPHED
--- NOTE | 2020-05-30 19:20 | NUR ---
NURSE HAND-OFF REPORT: Latest Vital Signs: Temperature 99.2 , Pulse 52 , B/P 117 /52 , Respiratory Rate 13 , O2 SAT 98 , Mechanical Ventilator, O2 Flow Rate 12.0 . Vital Sign Comment: EKG Rhythm: Sinus Rhythm Rhythm change?: N Notified?: Marcella Cruz MD Response: Order Received& Read Back Latest Garza Fall Score: 50 Fall Risk: High Risk Safety Measures: Call light Within Reach, Bed Alarm Zone 1, Side Rails Side Rails x2, Bed position Low and Locked. Fall Precautions: Door Sign Report given to SARA Cortez.
--- NOTE | 2020-05-30 19:30 | NUR ---
NURSE NOTES: Received report from Morenita RUIZ. Patient in bed obtunded no s/s of acute distress noted. Orally intubated fi02 40% satting 97%. HOB elevated. Suctioned patient orally. NGT intact running Glucerna1.2 at 60cc/hr with 15cc residual. Arauz intact draining with pale color urine. no s/s of hypo/hyperglycemia. Bilateral wrist restraint intact. on P200 mattress for wound management. airborne precaution maintained and observed. Right IJ TLC infusing Levophed at 2mcg/min and 1/2 NS at 75cc/hr. will continue plan of care.
[2020-05-30] MEDS: Dyna-Hex 2% Top Sol 2oz TOPIC SCH (20:33)
[2020-05-30] MEDS ORDERED: Etomidate 40mg/20ml Inj IV ONE (20:59)
--- NOTE | 2020-05-30 21:30 | NUR ---
NURSE NOTES: Turned and repositioned patient in bed. comfort measure provided. SB on potline monitor HR 51. HOB elevated. will continue plan of care.
--- NOTE | 2020-05-30 22:39 | NUR ---
NURSE NOTES: Patient HR 42 Atropin 0.4mg IVP given PRN for HR less than 45.
--- NOTE | 2020-05-30 22:40 | NUR ---
NURSE NOTES: HR 77
[2020-05-31] VITALS (33 sets, daily range): BP systolic 92–143; BP diastolic 46–94
--- NOTE | 2020-05-31 | NUR ---
NURSE NOTES: Blood glucose 135mg/dl
[2020-05-31] MEDS: Phenylephrine 100 MG in D5W 240 ML IV SCH (00:15)
[2020-05-31] MEDS: Vasopressin 100 UNITS in NS 95 ML IV SCH (00:15)
--- NOTE | 2020-05-31 02:00 | NUR ---
NURSE NOTES: Bed bath given tolerated well.
--- NOTE | 2020-05-31 04:00 | NUR ---
NURSE NOTES: Patient in bed obtunded no s/s of acute distress noted. Orally intubated fi02 40% satting 97%. HOB elevated. Suctioned patient orally. NGT intact running Glucerna1.2 at 60cc/hr no residual. Arauz intact draining with pale color urine. no s/s of hypo/hyperglycemia. Bilateral wrist restraint intact. on P200 mattress for wound management. airborne precaution maintained and observed. Right IJ TLC infusing Levophed at 1mcg/min and 1/2 NS at 75cc/hr.SB on teletypesetter monitor HR 58. will continue plan of care.
[2020-05-31 04:54] LABS: BASOPHILS % (AUTO) 0.7 % (0.0-2.0); EOSINOPHILS % (AUTO) 1.2 % (0.0-3.0); HEMATOCRIT 28.1 % (37.0-47.0); HEMOGLOBIN 9.4 G/DL (12.0-16.0); LYMPHOCYTES % (AUTO) 9.7 % (20.0-45.0); MEAN CORPUSCULAR VOLUME 91 FL (80-99); MONOCYTES % (AUTO) 7.4 % (1.0-10.0); PLATELET COUNT 170 K/UL (150-450); RED BLOOD COUNT 3.07 M/UL (4.20-5.40); RED CELL DISTRIBUTION WIDTH 14.2 % (11.6-14.8); WHITE BLOOD COUNT 5.2 K/UL (4.8-10.8)
[2020-05-31 05:37] LABS: ANION GAP 4 mmol/L (5-15); BLOOD UREA NITROGEN 22 mg/dL (7-18); CALCIUM 8.8 MG/DL (8.5-10.1); CARBON DIOXIDE 32 MMOL/L (21-32); CHLORIDE 106 MMOL/L (98-107); CREATININE 0.6 MG/DL (0.55-1.30); SODIUM 142 MMOL/L (136-145)
[2020-05-31] MEDS: NovoLOG Insulin Flexpen SUBQ SCH ×4 (05:56→18:00)
--- NOTE | 2020-05-31 06:00 | NUR ---
NURSE NOTES: Patient in bed non verbal.Orally intubated fi02 40% satting 97%. HOB elevated. Suctioned patient orally. NGT intact running Glucerna1.2 at 60cc/hr no residual. Arauz intact draining with pale color urine. no s/s of hypo/hyperglycemia. Bilateral wrist restraint intact. on P200 mattress for wound management. airborne precaution maintained and observed. Right IJ TLC infusing Levophed at 1mcg/min and 1/2 NS at 75cc/hr.SR on cardiac cath lab radiology technologist HR 71. Blood glucose 138mg/dl, no s/s of hypo/hyperglycemia. will continue plan of care.
--- NOTE | 2020-05-31 06:31 | General Progress Note ---
Subjective ROS Limited/Unobtainable: Yes Allergies: Coded Allergies: DIVALPROEX SODIUM (Verified Allergy, Unknown, 05/14/20) PENICILLINS (Verified Allergy, Unknown, 05/14/20) Subjective events noted and interval notes reviewed glucose values are stable remained intubated in ICU Item Value Date Time Bedside Blood Glucose 138 mg/dl H 05/31/20 0600 Bedside Blood Glucose 135 mg/dl H 05/31/20 0000 Bedside Blood Glucose 136 mg/dl H 05/30/20 1800 Bedside Blood Glucose 128 mg/dl H 05/30/20 1200 Bedside Blood Glucose 106 mg/dl 05/30/20 0600 Bedside Blood Glucose 116 mg/dl 05/30/20 0000 Objective Last 24 Hour Vital Signs Date Time Temp Pulse Resp B/P (MAP) Pulse Ox O2 Delivery O2 Flow Rate FiO2 05/31/20 06:00 56 15 107/51 (69) 99 05/31/20 06:00 107/51 05/31/20 05:00 51 16 113/49 (70) 98 05/31/20 05:00 115/49 05/31/20 04:00 Mechanical Ventilator 05/31/20 04:00 98.8 57 13 105/53 (70) 98 05/31/20 04:00 40 05/31/20 04:00 57 13 105/53 (70) 98 05/31/20 04:00 67 05/31/20 03:59 116/92 05/31/20 03:58 116/92 05/31/20 03:11 59 16 40 05/31/20 03:00 116/62 05/31/20 03:00 67 14 116/92 (100) 100 05/31/20 02:00 57 14 92/46 (61) 98 05/31/20 02:00 92/46 05/31/20 01:00 56 13 97/57 (70) 98 05/31/20 01:00 97/57 05/31/20 00:45 145/66 05/31/20 00:15 58 143/66 05/31/20 00:00 98.8 58 13 143/66 (91) 98 05/31/20 00:00 Mechanical Ventilator 05/31/20 00:00 143/66 05/31/20 00:00 63 05/31/20 00:00 40 05/30/20 23:10 63 13 40 05/30/20 23:00 155/67 05/30/20 23:00 68 14 155/67 (96) 97 05/30/20 22:37 42 05/30/20 22:17 52 13 88/41 (57) 97 05/30/20 22:00 56 13 86/46 (59) 97 05/30/20 22:00 86/46 05/30/20 21:00 134/69 05/30/20 21:00 48 12 134/69 (90) 99 05/30/20 20:00 40 05/30/20 20:00 98.0 55 16 129/57 (81) 91 05/30/20 20:00 54 05/30/20 20:00 129/57 05/30/20 20:00 Mechanical Ventilator 05/30/20 19:00 131/68 05/30/20 19:00 55 13 131/68 (89) 100 05/30/20 18:39 52 13 40 05/30/20 18:00 117/52 05/30/20 18:00 64 16 104/53 (70) 98 05/30/20 17:00 58 14 127/64 (85) 98 05/30/20 17:00 104/53 05/30/20 16:00 57 05/30/20 16:00 99.2 58 12 142/66 (91) 94 05/30/20 16:00 Mechanical Ventilator 05/30/20 16:00 127/64 05/30/20 16:00 40 05/30/20 15:09 64 12 40 05/30/20 15:00 69 13 137/68 (91) 96 05/30/20 15:00 142/68 05/30/20 14:00 137/68 05/30/20 14:00 53 12 148/70 (96) 100 05/30/20 13:00 148/70 05/30/20 13:00 53 14 146/74 (98) 100 05/30/20 12:00 40 05/30/20 12:00 99.0 62 13 119/61 (80) 100 05/30/20 12:00 146/74 05/30/20 12:00 Mechanical Ventilator 05/30/20 12:00 60 05/30/20 11:02 52 12 40 05/30/20 11:00 56 12 129/71 (90) 100 05/30/20 11:00 119/61 05/30/20 10:00 129/71 05/30/20 10:00 55 12 147/69 (95) 100 05/30/20 09:00 62 12 131/61 (84) 100 05/30/20 09:00 147/69 05/30/20 08:00 98.8 48 12 107/63 (78) 100 05/30/20 08:00 40 05/30/20 08:00 123/84 05/30/20 08:00 52 05/30/20 08:00 Mechanical Ventilator 05/30/20 07:11 49 12 40 05/30/20 07:00 101/63 05/30/20 07:00 54 12 101/63 (76) 100 Intake and Output 05/30/20 05/31/20 19:00 07:00 Intake Total 893.75 ml 1706.775 ml Output Total 1585 ml 1305 ml Balance -691.25 ml 401.775 ml Free Water 50 ml 200 ml IV Total 123.75 ml 846.775 ml Tube Feeding 720 ml 660 ml Output Urine Total 1585 ml 1305 ml Laboratory Tests 05/31/20 04:00: White Blood Count 5.2, Red Blood Count 3.07L, Hemoglobin 9.4L, Hematocrit 28.1L, Mean Corpuscular Volume 91, Mean Corpuscular Hemoglobin 30.6, Mean Corpuscular Hemoglobin Concent 33.5, Red Cell Distribution Width 14.2, Platelet Count 170, Mean Platelet Volume 8.2, Neutrophils (%) (Auto) 81.0H, Lymphocytes (%) (Auto) 9.7L, Monocytes (%) (Auto) 7.4, Eosinophils (%) (Auto) 1.2, Basophils (%) (Auto) 0.7, Sodium Level 142, Potassium Level 4.0, Chloride Level 106, Carbon Dioxide Level 32, Anion Gap 4L, Blood Urea Nitrogen 22H, Creatinine 0.6, Estimat Glomerular Filtration Rate > 60, Glucose Level 138H, Calcium Level 8.8 Height (Feet): 5 Height (Inches): 4.00 Weight (Pounds): 149 Objective Current Medications Medications (Trade) Dose Ordered Sig/Morgan Route PRN Reason Start Time Stop Time Status Last Admin Dose Admin Acetaminophen (Tylenol) 650 mg Q4H PRN GT Temp >100.5 05/16/20 06:15 06/15/20 06:14 05/21/20 20:01 Acetaminophen (Tylenol) 650 mg Q4H PRN RECTAL Temp >100.5 05/16/20 19:45 06/15/20 19:44 05/17/20 18:30 Atropine Sulfate (Atropine 0.4mg/ ml) 0.4 mg Q2HR PRN IVP HR <45 05/29/20 21:30 06/28/20 19:24 05/30/20 22:39 Chlorhexidine Gluconate (Lilliam-Hex 2%) 1 applic DAILY@2000 TOPIC 05/15/20 20:00 08/13/20 19:59 05/30/20 20:33 Dextrose (Dextrose 50%) 25 ml Q30M PRN IV Hypoglycemia 05/22/20 00:00 08/20/20 00:00 Dextrose (Dextrose 50%) 50 ml Q30M PRN IV Hypoglycemia 05/22/20 00:00 08/20/20 00:00 Insulin Aspart (NovoLOG) EVERY 6 HOURS SUBQ 05/22/20 06:00 08/20/20 05:59 05/27/20 05:57 Midodrine (Pro-Amatine) 10 mg TID ORAL 05/23/20 09:00 08/21/20 08:59 05/30/20 17:57 Norepinephrine Bitartrate 8 mg/ Dextrose 250 ml @ 0 mls/hr Q24H IV 05/20/20 18:00 06/19/20 17:59 05/31/20 03:59 Pantoprazole (Protonix) 40 mg DAILY IV 05/15/20 09:00 06/14/20 08:59 05/30/20 08:31 Phenylephrine HCl 100 mg/Dextrose 250 ml @ 0 mls/hr Q24H IV 05/15/20 00:15 06/14/20 00:14 05/15/20 13:28 Sodium Chloride 1,000 ml @ 75 mls/hr [id number] IV 05/15/20 06:45 06/14/20 06:44 05/30/20 20:33 Vasopressin 100 units/Sodium Chloride 100 ml @ 0 mls/hr Q24H IV 05/15/20 00:15 10/6/20 00:14 Zinc Oxide (Zinc Oxide) 1 applic TIDPRN PRN TOPIC Abdominal cramps 05/20/20 13:00 08/18/20 12:59 Assessment/Plan Problem List: (1) COVID-19 ICD Codes: U07.1 - COVID-19 SNOMED: 724059318 (2) Elevated d-dimer ICD Codes: R79.89 - Other specified abnormal findings of blood chemistry SNOMED: 445222865 (3) Rapid atrial fibrillation ICD Codes: I48.91 - Unspecified atrial fibrillation SNOMED: 249225150 (4) Sepsis ICD Codes: A41.9 - Sepsis, unspecified organism SNOMED: 58710497 (5) Respiratory failure ICD Codes: J96.90 - Respiratory failure, unspecified, unspecified whether with hypoxia or hypercapnia SNOMED: 955239628 (6) Renal failure ICD Codes: N19 - Unspecified kidney failure SNOMED: 07586225 (7) Hypernatremia ICD Codes: E87.0 - Hyperosmolality and hypernatremia SNOMED: 120541689 (8) T2DM (type 2 diabetes mellitus) ICD Codes: E11.9 - Type 2 diabetes mellitus without complications SNOMED: 10083421 Status: stable Assessment/Plan: no need for basal insulin continue Novolog sliding scale every 6 hours hypoglycemia protocol in order Chau Shelley MD May 31, 2020 06:31
--- NOTE | 2020-05-31 07:14 | NUR ---
HAND-OFF: Report given to Michael RUIZ.
--- NOTE | 2020-05-31 07:27 | NUR ---
RESPIRATORY THERAPIST NOTES: Attempted to wean Patient on SPONT PS +8 PEEP +5 FIO2 40% however Patient is unable to breathe at adequate volumes. Spontaneous VT <200, RSBI 165. Placed back onto ACVC 12, 500, 40%, +5.
--- NOTE | 2020-05-31 07:30 | NUR ---
NURSE NOTES: late entry: RECEIVED REPORT FROM PAOLA Duff PT FLAT EFFECT, MOVES HEAD SIDE TO SIDE. OPENS EYES. PUPILS SLUGGISH 3MM. NONVERBAL. SR ON MONITOR 75. BP STABLE ON PRESSORS 100/55, LEVOPHED AT 1MCG/MIN. PT INTUBATED. ETTUBE 7.5, 23CM AT LIP. VENT SETTINGS AC 12, VT 500 FI02 40%, PEEP 5. RR 15. NO RESPIRATORY DISTRESS NOTED. LUNG SOUNDS DIMINISHED BILATERAL. SECRETIONS SMALL, HINOJOSA, BROWN. RT NARES NGT. TUBE FEEDING GLUCERNA 1.2, AT 50ML/HR. NO RESIDUALS. NO BM NOTED. ABDOMEN SOFT, NON TENDER. BOWEL SOUNDS HYPOACTIVE IN ALL QUADRANTS. DEL TORO IN PLACE. DRAINING BELOW BLADDER. SKIN- SEE ASSESSMENT. NON PITTING EDEMA OF HANDS. BILATERAL RADIAL AND PEDAL PULSES WEAK. CAP REFILL <3SEC. NO JVD. SOFT WRIST RESTRAINT IN PLACE. CIRCULATION AND COMFORT CHECK COMPLETED. IV ACCESS RT IJ, FLUIDS RUNNING 1/2 NS AT 75ML/HR. PT IN [place]/CONTACT ISOLATION. BED LOCKED, IN LOW POSITION. SIDE RAILS X2, BED ALARM ON. WILL CONTINUE TO MONITOR PT.
--- NOTE | 2020-05-31 07:53 | NUR ---
RD ASSESSMENT & RECOMMENDATIONS SEE CARE ACTIVITY FOR COMPLETE ASSESSMENT DAILY ESTIMATED NEEDS: Needs based on Critical care, 57.8kh abw 22-30 kcals/kg 2206-0523 total kcals 1.2-2 g protein/kg 69-116 g total protein 25-30 mL/kg 8372-3590 total fluid mLs NUTRITION DIAGNOSIS: Swallowing difficulty r/t h/o CVA, dysphagia as evidenced by pt is GT dep, now intubated w/ resp distress. CURRENT TF:Glucerna 1.2@ 60ml/hr x24 hrs ENTERAL NUTRITION RECOMMENDATIONS: Glucerna 1.2 @ 60ml/hr x24 hrs to provide 1440ml, 1728 kcal, 86g pro, 1159ml free H2O -> With hemodynamic stability, maintain current TF @ goal. - Flush per MD. HOB over 30 degrees ADDITIONAL RECOMMENDATIONS: 1) Monitor hemodynamic stability: off pressor support 2) Obtain an accurate wt: per MD pt w/ 'cachexia' EMR wt: 117.8kg vs am wts:64kg; trend wt, need to increase TF 3) Wound healing: TF provides 100% RDI add Vit C 250mg QD + Flavio BID 4) Monitor lytes, replete as needed 5) Monitor BGs closely: improved-> Decadron dc'ed, Levemir dc'ed
[2020-05-31] MEDS: Pantoprazole Inj IV SCH (08:34)
[2020-05-31] MEDS: Midodrine 10mg tab ORAL SCH ×3 (08:34→18:17)
--- NOTE | 2020-05-31 10:00 | NUR ---
NURSE NOTES: MD. ROCK HERE TO SEE PT. INFORMED THAT PT FAILED WEANING THIS AM. NO NEW ORDERS
--- NOTE | 2020-05-31 10:14 | General Progress Note ---
Subjective ROS Limited/Unobtainable: No Allergies: Coded Allergies: DIVALPROEX SODIUM (Verified Allergy, Unknown, 05/14/20) PENICILLINS (Verified Allergy, Unknown, 05/14/20) Objective Last 24 Hour Vital Signs Date Time Temp Pulse Resp B/P (MAP) Pulse Ox O2 Delivery O2 Flow Rate FiO2 05/31/20 09:00 100.4 71 14 115/61 (79) 100 05/31/20 08:05 40 05/31/20 08:00 Mechanical Ventilator 05/31/20 08:00 70 14 100/55 (70) 98 05/31/20 08:00 66 05/31/20 07:24 78 16 40 05/31/20 07:00 110/69 05/31/20 07:00 78 17 110/69 (83) 97 05/31/20 06:30 67 17 05/31/20 06:00 56 15 107/51 (69) 99 05/31/20 06:00 107/51 05/31/20 05:00 51 16 113/49 (70) 98 05/31/20 05:00 115/49 05/31/20 04:00 Mechanical Ventilator 05/31/20 04:00 98.8 57 13 105/53 (70) 98 05/31/20 04:00 40 05/31/20 04:00 57 13 105/53 (70) 98 05/31/20 04:00 67 05/31/20 03:59 116/92 05/31/20 03:58 116/92 05/31/20 03:11 59 16 40 05/31/20 03:00 116/62 05/31/20 03:00 67 14 116/92 (100) 100 05/31/20 02:00 57 14 92/46 (61) 98 05/31/20 02:00 92/46 05/31/20 01:00 56 13 97/57 (70) 98 05/31/20 01:00 97/57 05/31/20 00:45 145/66 05/31/20 00:15 58 143/66 05/31/20 00:00 98.8 58 13 143/66 (91) 98 05/31/20 00:00 Mechanical Ventilator 05/31/20 00:00 143/66 05/31/20 00:00 63 05/31/20 00:00 40 05/30/20 23:10 63 13 40 05/30/20 23:00 155/67 05/30/20 23:00 68 14 155/67 (96) 97 05/30/20 22:37 42 05/30/20 22:17 52 13 88/41 (57) 97 05/30/20 22:00 56 13 86/46 (59) 97 05/30/20 22:00 86/46 05/30/20 21:00 134/69 05/30/20 21:00 48 12 134/69 (90) 99 05/30/20 20:00 40 05/30/20 20:00 98.0 55 16 129/57 (81) 91 05/30/20 20:00 54 05/30/20 20:00 129/57 05/30/20 20:00 Mechanical Ventilator 05/30/20 19:00 131/68 05/30/20 19:00 55 13 131/68 (89) 100 05/30/20 18:39 52 13 40 05/30/20 18:00 117/52 05/30/20 18:00 64 16 104/53 (70) 98 05/30/20 17:00 58 14 127/64 (85) 98 05/30/20 17:00 104/53 05/30/20 16:00 57 05/30/20 16:00 99.2 58 12 142/66 (91) 94 05/30/20 16:00 Mechanical Ventilator 05/30/20 16:00 127/64 05/30/20 16:00 40 05/30/20 15:09 64 12 40 05/30/20 15:00 69 13 137/68 (91) 96 05/30/20 15:00 142/68 05/30/20 14:00 137/68 05/30/20 14:00 53 12 148/70 (96) 100 05/30/20 13:00 148/70 05/30/20 13:00 53 14 146/74 (98) 100 05/30/20 12:00 40 05/30/20 12:00 99.0 62 13 119/61 (80) 100 05/30/20 12:00 146/74 05/30/20 12:00 Mechanical Ventilator 05/30/20 12:00 60 05/30/20 11:02 52 12 40 05/30/20 11:00 56 12 129/71 (90) 100 05/30/20 11:00 119/61 Intake and Output 05/30/20 05/31/20 19:00 07:00 Intake Total 893.75 ml 1843.575 ml Output Total 1585 ml 1505 ml Balance -691.25 ml 338.575 ml Free Water 50 ml 200 ml IV Total 123.75 ml 923.575 ml Tube Feeding 720 ml 720 ml Output Urine Total 1585 ml 1505 ml Laboratory Tests 05/31/20 04:00: White Blood Count 5.2, Red Blood Count 3.07L, Hemoglobin 9.4L, Hematocrit 28.1L, Mean Corpuscular Volume 91, Mean Corpuscular Hemoglobin 30.6, Mean Corpuscular H emoglobin Concent 33.5, Red Cell Distribution Width 14.2, Platelet Count 170, Mean Platelet Volume 8.2, Neutrophils (%) (Auto) 81.0H, Lymphocytes (%) (Auto) 9.7L, Monocytes (%) (Auto) 7.4, Eosinophils (%) (Auto) 1.2, Basophils (%) (Auto) 0.7, Sodium Level 142, Potassium Level 4.0, Chloride Level 106, Carbon Dioxide Level 32, Anion Gap 4L, Blood Urea Nitrogen 22H, Creatinine 0.6, Estimat Glomerular Filtration Rate > 60, Glucose Level 138H, Calcium Level 8.8 Height (Feet): 5 Height (Inches): 4.00 Weight (Pounds): 149 General Appearance: no apparent distress EENT: normal ENT inspection Neck: supple Cardiovascular: normal rate Respiratory/Chest: decreased breath sounds Abdomen: normal bowel sounds, non tender, soft Extremities: non-tender Assessment/Plan Status: stable Assessment/Plan: 1. History of CVA. 2. Dementia. 3. Dysphagia with G-tube. 4. Cachexia. 5. Diabetes. 6. Pressure ulcers. 7. Hypothyroidism. 8. Legal blindness. 9. Currently COVID positive. GT has trice removed NGTF icu care fu Bioethics recs consider PEG if plan is to do trach fu labs Jhon Matos MD May 31, 2020 10:14
--- NOTE | 2020-05-31 10:24 | NUR ---
TECHNICAL BUYER NOTE MARIELLA communicated w/ INE[facility] Lucio requesting to make correction in the physician's form that was submitted last week. INE[facility] Lucio is also requesting a narrative letter by hospital committee department for DNR request. MARIELLA will discuss the case w/ the team. Addendum: 05/31/20 at 1316 by JUAN WOLFF The case was discussed and recommended to have two MDs' consent for tracheostomy and PEG placement as medical necessity. MARIELLA will continue to F/U.
--- NOTE | 2020-05-31 10:32 | Pulmonology Progress Note ---
Subjective ROS Limited/Unobtainable: No Interval Events: Unable to extubtae due to poor mental status Constitutional: Reports: no symptoms HEENT: Repors: no symptoms Respiratory: Reports: no symptoms Cardiovascular: Reports: no symptoms Gastrointestinal/Abdominal: Reports: no symptoms Genitourinary: Reports: no symptoms Allergies: Coded Allergies: DIVALPROEX SODIUM (Verified Allergy, Unknown, 05/14/20) PENICILLINS (Verified Allergy, Unknown, 05/14/20) All Systems: reviewed and negative except above Objective Last 24 Hour Vital Signs Date Time Temp Pulse Resp B/P (MAP) Pulse Ox O2 Delivery O2 Flow Rate FiO2 05/31/20 10:00 59 15 128/62 (84) 99 05/31/20 09:00 100.4 71 14 115/61 (79) 100 05/31/20 08:05 40 05/31/20 08:00 Mechanical Ventilator 05/31/20 08:00 70 14 100/55 (70) 98 05/31/20 08:00 66 05/31/20 07:24 78 16 40 05/31/20 07:00 110/69 05/31/20 07:00 78 17 110/69 (83) 97 05/31/20 06:30 67 17 05/31/20 06:00 56 15 107/51 (69) 99 05/31/20 06:00 107/51 05/31/20 05:00 51 16 113/49 (70) 98 05/31/20 05:00 115/49 05/31/20 04:00 Mechanical Ventilator 05/31/20 04:00 98.8 57 13 105/53 (70) 98 05/31/20 04:00 40 05/31/20 04:00 57 13 105/53 (70) 98 05/31/20 04:00 67 05/31/20 03:59 116/92 05/31/20 03:58 116/92 05/31/20 03:11 59 16 40 05/31/20 03:00 116/62 05/31/20 03:00 67 14 116/92 (100) 100 05/31/20 02:00 57 14 92/46 (61) 98 05/31/20 02:00 92/46 05/31/20 01:00 56 13 97/57 (70) 98 9/22/20 01:00 97/57 05/31/20 00:45 145/66 05/31/20 00:15 58 143/66 05/31/20 00:00 98.8 58 13 143/66 (91) 98 05/31/20 00:00 Mechanical Ventilator 05/31/20 00:00 143/66 05/31/20 00:00 63 05/31/20 00:00 40 05/30/20 23:10 63 13 40 05/30/20 23:00 155/67 05/30/20 23:00 68 14 155/67 (96) 97 05/30/20 22:37 42 05/30/20 22:17 52 13 88/41 (57) 97 05/30/20 22:00 56 13 86/46 (59) 97 05/30/20 22:00 86/46 05/30/20 21:00 134/69 05/30/20 21:00 48 12 134/69 (90) 99 05/30/20 20:00 40 05/30/20 20:00 98.0 55 16 129/57 (81) 91 05/30/20 20:00 54 05/30/20 20:00 129/57 05/30/20 20:00 Mechanical Ventilator 05/30/20 19:00 131/68 05/30/20 19:00 55 13 131/68 (89) 100 05/30/20 18:39 52 13 40 05/30/20 18:00 117/52 05/30/20 18:00 64 16 104/53 (70) 98 05/30/20 17:00 58 14 127/64 (85) 98 05/30/20 17:00 104/53 05/30/20 16:00 57 05/30/20 16:00 99.2 58 12 142/66 (91) 94 05/30/20 16:00 Mechanical Ventilator 05/30/20 16:00 127/64 05/30/20 16:00 40 05/30/20 15:09 64 12 40 05/30/20 15:00 69 13 137/68 (91) 96 05/30/20 15:00 142/68 05/30/20 14:00 137/68 05/30/20 14:00 53 12 148/70 (96) 100 05/30/20 13:00 148/70 05/30/20 13:00 53 14 146/74 (98) 100 05/30/20 12:00 40 05/30/20 12:00 99.0 62 13 119/61 (80) 100 05/30/20 12:00 146/74 05/30/20 12:00 Mechanical Ventilator 05/30/20 12:00 60 05/30/20 11:02 52 12 40 05/30/20 11:00 56 12 129/71 (90) 100 05/30/20 11:00 119/61 Intake and Output 05/30/20 05/31/20 19:00 07:00 Intake Total 893.75 ml 1843.575 ml Output Total 1585 ml 1505 ml Balance -691.25 ml 338.575 ml Free Water 50 ml 200 ml IV Total 123.75 ml 923.575 ml Tube Feeding 720 ml 720 ml Output Urine Total 1585 ml 1505 ml General Appearance: no acute distress HEENT: normocephalic Respiratory: chest wall non-tender, lungs clear Cardiovascular: normal peripheral pulses, normal rate Abdomen: normal bowel sounds Laboratory Tests 05/31/20 04:00: White Blood Count 5.2, Red Blood Count 3.07L, Hemoglobin 9.4L, Hematocrit 28.1L, Mean Corpuscular Volume 91, Mean Corpuscular Hemoglobin 30.6, Mean Corpuscular Hemoglobin Concent 33.5, Red Cell Distribution Width 14.2, Platelet Count 170, Mean Platelet Volume 8.2, Neutrophils (%) (Auto) 81.0H, Lymphocytes (%) (Auto) 9.7L, Monocytes (%) (Auto) 7.4, Eosinophils (%) (Auto) 1.2, Basophils (%) (Auto) 0.7, Sodium Level 142, Potassium Level 4.0, Chloride Level 106, Carbon Dioxide Level 32, Anion Gap 4L, Blood Urea Nitrogen 22H, Creatinine 0.6, Estimat Glomerular Filtration Rate > 60, Glucose Level 138H, Calcium Level 8.8 Current Medications Medications (Trade) Dose Ordered Sig/Morgan Route PRN Reason Start Time Stop Time Status Last Admin Dose Admin Acetaminophen (Tylenol) 650 mg Q4H PRN GT Temp >100.5 05/16/20 06:15 06/15/20 06:14 05/21/20 20:01 Acetaminophen (Tylenol) 650 mg Q4H PRN RECTAL Temp >100.5 05/16/20 19:45 06/15/20 19:44 05/17/20 18:30 Atropine Sulfate (Atropine 0.4mg/ ml) 0.4 mg Q2HR PRN IVP HR <45 05/29/20 21:30 06/28/20 19:24 05/30/20 22:39 Chlorhexidine Gluconate (Lilliam-Hex 2%) 1 applic DAILY@2000 TOPIC 05/15/20 20:00 08/13/20 19:59 05/30/20 20:33 Dextrose (Dextrose 50%) 25 ml Q30M PRN IV Hypoglycemia 05/22/20 00:00 08/20/20 00:00 Dextrose (Dextrose 50%) 50 ml Q30M PRN IV Hypoglycemia 05/22/20 00:00 08/20/20 00:00 Insulin Aspart (NovoLOG) EVERY 6 HOURS SUBQ 05/22/20 06:00 08/20/20 05:59 05/27/20 05:57 Midodrine (Pro-Amatine) 10 mg TID ORAL 05/23/20 09:00 08/21/20 08:59 05/31/20 08:34 Norepinephrine Bitartrate 8 mg/ Dextrose 250 ml @ 0 mls/hr Q24H IV 05/20/20 18:00 06/19/20 17:59 05/31/20 03:59 Pantoprazole (Protonix) 40 mg DAILY IV 05/15/20 09:00 06/14/20 08:59 05/31/20 08:34 Phenylephrine HCl 100 mg/Dextrose 250 ml @ 0 mls/hr Q24H IV 05/15/20 00:15 06/14/20 00:14 05/15/20 13:28 Sodium Chloride 1,000 ml @ 75 mls/hr [id number] IV 05/15/20 06:45 06/14/20 06:44 05/31/20 10:30 Vasopressin 100 units/Sodium Chloride 100 ml @ 0 mls/hr Q24H IV 05/15/20 00:15 06/14/20 00:14 Zinc Oxide (Zinc Oxide) 1 applic TIDPRN PRN TOPIC Abdominal cramps 05/20/20 13:00 08/18/20 12:59 Assessment/Plan Assessment/Plan IMPRESSION: 1. Acute respiratory failure. 2. Diabetes mellitus with hyperglycemia. 3. Septic shock. 4. Chronic G-tube. 5. Decubitus. 6. History of CHF. DISCUSSION: Continue fluids and antibiotics. Pressors prn Now on T piece On 40% FiO2 DVT and GI prophylaxis. Respiratory precautions due to COVID-[address] Wade. I will follow carefully. Decadron continuing Mental status better however unsafe to extubate Will not be able to maintain airway Recommend trach Needs new PEG Richard James Omar Syed MD May 31, 2020 10:32
--- NOTE | 2020-05-31 11:34 | Infectious Diseases Prog Note ---
Assessment/Plan 70 yo female with PMHx of Dementia, DM, CVA ( S/P PEG), COVID 19 infection and pressure ulcers. Septic Shock-combination cardiogenic and septic; -back on pressors, decreasing Gram positive bacteremia- contaminant -05/14 Bcx 1/4 S. haemolyticus; 05/17 Bcx Neg UTI, sp rx UA (+); ucx 10-20k P. mirabilis (S Ceftriaxone, Cefepime) PNA, superimposed bacterial, sp rx Recent COVID19 pna- now repeat neg x2 -05/27 CXR: Previously seen left lung atelectasis has nearly completely resolved. Retrocardiac atelectasis without or with some component of consolidation. Low lung volumes with bronchovascular crowding. -05/26 CXR: Complete opacification of the left hemithorax with mediastinal shift to the left likely due to complete atelectasis of the left lung perhaps from mucous plugging. rapid COVID PCR neg -05/25 sp cx MDR PsA (I Ceftazidime, Colistin, Polymixin B); suspect colonizer SARS-COV2 neg -05/24 SARS-COV2 pCR inconclusive -05/23 CXR: Worsening aeration with increasing hazy opacification of the left lung base which may related to increased layering pleural effusion and adjacent atelectasis/consolidation. -05/19 CXR: Increasing left pleural fluid and likely basilar consolidation/atelectasis. Interim orogastric intubation 05/16 CXR: Retrocardiac density may represent atelectasis versus infiltrate. CXR 05/14/20 showed Retrocardiac atelectasis/infiltrate with Pulmonary venous congestion. sp cx MDR E.coli (S Cefepime, Meropenem, Zosyn) Hx of COVID 19 - Bacteria secondary infection? Asp PNA? COVID 19 tested Pos OSF - about 3 week PLASTIC PRINTER -still positive Rapid COVID PCR 05/14 Resp Fail Intuabted on Vent Leukocytosis; increased (sp steroids)- SP Fever; low grade ,recurrent EMA, SP SVT -sp cardioversion Hyperglycemia Elevated LFTs; resolving -Abd US: Gallbladder sludge. Negative for dilated bile ducts. Normal appearing liver and spleen. Trace ascites Dementia DM Hx CVA ( S/P PEG) pressure ulcers PLAN -Continue to monitor off abx unless persistently febrile, leukocytosis, worsening hemodynamics -will not treat MDR in sputum at this point as likely is colonizer - 05/27 SP Meropenem #11 -05/24 SP Decadron #11 -05/19 SP IV Vancomcyin #6 -05/17 SP Cefepime #4 - f/u Cultures - Monitor CBC and Temps -repeat covid neg x2 -repeat cultures Thank you for consulting [facility]. Will continue to follow along with you. Discussed with RN. Subjective Allergies: Coded Allergies: DIVALPROEX SODIUM (Verified Allergy, Unknown, 05/14/20) PENICILLINS (Verified Allergy, Unknown, 05/14/20) Tm 100.4 Fio2 40% levo at 1 Objective Last 24 Hour Vital Signs Date Time Temp Pulse Resp B/P (MAP) Pulse Ox O2 Delivery O2 Flow Rate FiO2 05/31/20 11:00 58 16 115/55 (75) 98 05/31/20 10:00 59 15 128/62 (84) 99 05/31/20 09:00 100.4 71 14 115/61 (79) 100 05/31/20 08:05 40 05/31/20 08:00 Mechanical Ventilator 05/31/20 08:00 70 14 100/55 (70) 98 05/31/20 08:00 66 05/31/20 07:24 78 16 40 05/31/20 07:00 110/69 05/31/20 07:00 78 17 110/69 (83) 97 05/31/20 06:30 67 17 05/31/20 06:00 56 15 107/51 (69) 99 05/31/20 06:00 107/51 05/31/20 05:00 51 16 113/49 (70) 98 05/31/20 05:00 115/49 05/31/20 04:00 Mechanical Ventilator 05/31/20 04:00 98.8 57 13 105/53 (70) 98 05/31/20 04:00 40 05/31/20 04:00 57 13 105/53 (70) 98 05/31/20 04:00 67 05/31/20 03:59 116/92 05/31/20 03:58 116/92 05/31/20 03:11 59 16 40 05/31/20 03:00 116/62 05/31/20 03:00 67 14 116/92 (100) 100 05/31/20 02:00 57 14 92/46 (61) 98 05/31/20 02:00 92/46 05/31/20 01:00 56 13 97/57 (70) 98 05/31/20 01:00 97/57 05/31/20 00:45 145/66 05/31/20 00:15 58 143/66 05/31/20 00:00 98.8 58 13 143/66 (91) 98 05/31/20 00:00 Mechanical Ventilator 05/31/20 00:00 143/66 05/31/20 00:00 63 05/31/20 00:00 40 05/30/20 23:10 63 13 40 05/30/20 23:00 155/67 05/30/20 23:00 68 14 155/67 (96) 97 05/30/20 22:37 42 05/30/20 22:17 52 13 88/41 (57) 97 05/30/20 22:00 56 13 86/46 (59) 97 05/30/20 22:00 86/46 05/30/20 21:00 134/69 05/30/20 21:00 48 12 134/69 (90) 99 05/30/20 20:00 40 05/30/20 20:00 98.0 55 16 129/57 (81) 91 05/30/20 20:00 54 05/30/20 20:00 129/57 05/30/20 20:00 Mechanical Ventilator 05/30/20 19:00 131/68 05/30/20 19:00 55 13 131/68 (89) 100 05/30/20 18:39 52 13 40 05/30/20 18:00 117/52 05/30/20 18:00 64 16 104/53 (70) 98 05/30/20 17:00 58 14 127/64 (85) 98 05/30/20 17:00 104/53 05/30/20 16:00 57 05/30/20 16:00 99.2 58 12 142/66 (91) 94 05/30/20 16:00 Mechanical Ventilator 05/30/20 16:00 127/64 05/30/20 16:00 40 05/30/20 15:09 64 12 40 05/30/20 15:00 69 13 137/68 (91) 96 05/30/20 15:00 142/68 05/30/20 14:00 137/68 05/30/20 14:00 53 12 148/70 (96) 100 05/30/20 13:00 148/70 05/30/20 13:00 53 14 146/74 (98) 100 05/30/20 12:00 40 05/30/20 12:00 99.0 62 13 119/61 (80) 100 05/30/20 12:00 146/74 05/30/20 12:00 Mechanical Ventilator 05/30/20 12:00 60 Height (Feet): 5 Height (Inches): 4.00 Weight (Pounds): 149 GEN: On Vent HEENT: NCAT, MMM, Intubated Pulm: Equal rise and fall B/L ABD: Soft, ND, PEG Neuro: Not following, Intubated Laboratory Tests Test 05/31/20 04:00 White Blood Count 5.2 K/UL (4.8-10.8) Red Blood Count 3.07 M/UL (4.20-5.40) L Hemoglobin 9.4 G/DL (12.0-16.0) L Hematocrit 28.1 % (37.0-47.0) L Mean Corpuscular Volume 91 FL (80-99) Mean Corpuscular Hemoglobin 30.6 PG (27.0-31.0) Mean Corpuscular Hemoglobin Concent 33.5 G/DL (32.0-36.0) Red Cell Distribution Width 14.2 % (11.6-14.8) Platelet Count 170 K/UL (150-450) Mean Platelet Volume 8.2 FL (6.5-10.1) Neutrophils (%) (Auto) 81.0 % (45.0-75.0) H Lymphocytes (%) (Auto) 9.7 % (20.0-45.0) L Monocytes (%) (Auto) 7.4 % (1.0-10.0) Eosinophils (%) (Auto) 1.2 % (0.0-3.0) Basophils (%) (Auto) 0.7 % (0.0-2.0) Sodium Level 142 MMOL/L (136-145) Potassium Level 4.0 MMOL/L (3.5-5.1) Chloride Level 106 MMOL/L (98-107) Carbon Dioxide Level 32 MMOL/L (21-32) Anion Gap 4 mmol/L (5-15) L Blood Urea Nitrogen 22 mg/dL (7-18) H Creatinine 0.6 MG/DL (0.55-1.30) Estimat Glomerular Filtration Rate > 60 mL/min (>60) Glucose Level 138 MG/DL (74-106) H Calcium Level 8.8 MG/DL (8.5-10.1) Current Medications Medications (Trade) Dose Ordered Sig/Morgan Route PRN Reason Start Time Stop Time Status Last Admin Dose Admin Acetaminophen (Tylenol) 650 mg Q4H PRN GT Temp >100.5 05/16/20 06:15 06/15/20 06:14 05/21/20 20:01 Acetaminophen (Tylenol) 650 mg Q4H PRN RECTAL Temp >100.5 05/16/20 19:45 06/15/20 19:44 05/17/20 18:30 Atropine Sulfate (Atropine 0.4mg/ ml) 0.4 mg Q2HR PRN IVP HR <45 05/29/20 21:30 06/28/20 19:24 05/30/20 22:39 Chlorhexidine Gluconate (Lilliam-Hex 2%) 1 applic DAILY@2000 TOPIC 05/15/20 20:00 08/13/20 19:59 05/30/20 20:33 Dextrose (Dextrose 50%) 25 ml Q30M PRN IV Hypoglycemia 05/22/20 00:00 08/20/20 00:00 Dextrose (Dextrose 50%) 50 ml Q30M PRN IV Hypoglycemia 05/22/20 00:00 08/20/20 00:00 Insulin Aspart (NovoLOG) EVERY 6 HOURS SUBQ 05/22/20 06:00 08/20/20 05:59 05/27/20 05:57 Midodrine (Pro-Amatine) 10 mg TID ORAL 05/23/20 09:00 08/21/20 08:59 05/31/20 08:34 Norepinephrine Bitartrate 8 mg/ Dextrose 250 ml @ 0 mls/hr Q24H IV 05/20/20 18:00 06/19/20 17:59 05/31/20 03:59 Pantoprazole (Protonix) 40 mg DAILY IV 05/15/20 09:00 06/14/20 08:59 05/31/20 08:34 Phenylephrine HCl 100 mg/Dextrose 250 ml @ 0 mls/hr Q24H IV 05/15/20 00:15 06/14/20 00:14 05/15/20 13:28 Sodium Chloride 1,000 ml @ 75 mls/hr [id number] IV 05/15/20 06:45 06/14/20 06:44 05/31/20 10:30 Vasopressin 100 units/Sodium Chloride 100 ml @ 0 mls/hr Q24H IV 05/15/20 00:15 06/14/20 00:14 Zinc Oxide (Zinc Oxide) 1 applic TIDPRN PRN TOPIC Abdominal cramps 05/20/20 13:00 08/18/20 12:59 Yomaira Terry M.D. May 31, 2020 11:34
--- NOTE | 2020-05-31 12:05 | NUR ---
NURSE NOTES: Late Entry: PT FLAT EFFECT. OPENS EYES. PUPILS SLUGGISH 3MM. HR 80. 123/63, LEVOPHED AT 1MCG/MIN. PT INTUBATED. ETTUBE 7.5, 23CM AT LIP. VENT SETTINGS AC 12, VT 500 FI02 40%, PEEP 5. RR 16. SECRETIONS SMALL, HINOJOSA, BROWN. PT SUCTIONED. ORAL CARE PROVIDED. TUBE FEEDING GLUCERNA 1.2, AT 50ML/HR. NO RESIDUALS. NO BM NOTED. DEL TORO IN PLACE. DRAINING BELOW BLADDER. NON PITTING EDEMA OF HANDS. BILATERAL RADIAL AND PEDAL PULSES WEAK. SOFT WRIST RESTRAINT IN PLACE. CIRCULATION CHECK COMPLETED. IV ACCESS RT IJ, FLUIDS RUNNING 1/2 NS AT 75ML/HR. PT IN ISOLATION. BED LOCKED, IN LOW POSITION. SIDE RAILS X2. WILL CONTINUE TO MONITOR PT.
--- NOTE | 2020-05-31 13:00 | NUR ---
NURSE NOTES: TURNED OFF LEVOPHED DRIP, RUNNING AT1 MCG/MIN . VS: 75, 131/62, 99%, 16. FEBRILE, COOLING MEASURES IN PLACE. WILL CONTINUE TO MONITOR PT.
[2020-05-31] MEDS: Acetaminophen 650mg/20.3ml GT PRN (13:15)
--- NOTE | 2020-05-31 13:37 | NUR ---
NURSE NOTES: tech here to do bilateral lower extremity maria c Duplex
--- NOTE | 2020-05-31 14:17 | Diagnostic Imaging Report ---
Indication: Bilateral leg pain Technique: Grayscale and duplex images of the bilateral lower extremity veins Comparison: none Findings: On the right, the popliteal vein and calf veins could not be visualized due to patient position. The subcutaneous fat is edematous. Visualized veins demonstrate no evidence of intraluminal thrombus. All compressibility. Normal phasic Doppler waveforms. On the left, grayscale and duplex images demonstrate thrombus within the mid and downstream femoral vein, resulting in absence of flow and absence of compressibility. The remaining venous segments are patent, demonstrating normal Doppler flow and normal compressibility Impression: Positive for left femoral deep venous thrombosis Findings phoned to ICU charge nurse Iram at the time of interpretation
--- NOTE | 2020-05-31 14:29 | Surgery Progress Note ---
Surgery Progress Note Subjective Additional Comments no acute events Objective Last 24 Hour Vital Signs Date Time Temp Pulse Resp B/P (MAP) Pulse Ox O2 Delivery O2 Flow Rate FiO2 05/31/20 13:45 99.9 05/31/20 13:15 79 16 131/62 (85) 99 05/31/20 13:00 75 17 114/64 (81) 88 05/31/20 12:47 76 15 115/71 (86) 99 05/31/20 12:30 75 16 123/63 (83) 100 05/31/20 12:00 Mechanical Ventilator 05/31/20 12:00 100.6 70 15 118/94 (102) 99 05/31/20 12:00 40 05/31/20 12:00 86 05/31/20 11:11 66 14 40 05/31/20 11:00 58 16 115/55 (75) 98 05/31/20 10:00 59 15 128/62 (84) 99 05/31/20 09:00 100.4 71 14 115/61 (79) 100 05/31/20 08:05 40 05/31/20 08:00 Mechanical Ventilator 05/31/20 08:00 70 14 100/55 (70) 98 05/31/20 08:00 66 05/31/20 07:24 78 16 40 05/31/20 07:00 110/69 05/31/20 07:00 78 17 110/69 (83) 97 05/31/20 06:30 67 17 05/31/20 06:00 56 15 107/51 (69) 99 05/31/20 06:00 107/51 05/31/20 05:00 51 16 113/49 (70) 98 05/31/20 05:00 115/49 05/31/20 04:00 Mechanical Ventilator 05/31/20 04:00 98.8 57 13 105/53 (70) 98 05/31/20 04:00 40 05/31/20 04:00 57 13 105/53 (70) 98 05/31/20 04:00 67 05/31/20 03:59 116/92 05/31/20 03:58 116/92 05/31/20 03:11 59 16 40 05/31/20 03:00 116/62 05/31/20 03:00 67 14 116/92 (100) 100 05/31/20 02:00 57 14 92/46 (61) 98 05/31/20 02:00 92/46 05/31/20 01:00 56 13 97/57 (70) 98 05/31/20 01:00 97/57 05/31/20 00:45 145/66 05/31/20 00:15 58 143/66 05/31/20 00:00 98.8 58 13 143/66 (91) 98 05/31/20 00:00 Mechanical Ventilator 05/31/20 00:00 143/66 05/31/20 00:00 63 05/31/20 00:00 40 05/30/20 23:10 63 13 40 05/30/20 23:00 155/67 05/30/20 23:00 68 14 155/67 (96) 97 05/30/20 22:37 42 05/30/20 22:17 52 13 88/41 (57) 97 05/30/20 22:00 56 13 86/46 (59) 97 05/30/20 22:00 86/46 05/30/20 21:00 134/69 05/30/20 21:00 48 12 134/69 (90) 99 05/30/20 20:00 40 05/30/20 20:00 98.0 55 16 129/57 (81) 91 05/30/20 20:00 54 05/30/20 20:00 129/57 05/30/20 20:00 Mechanical Ventilator 05/30/20 19:00 131/68 05/30/20 19:00 55 13 131/68 (89) 100 05/30/20 18:39 52 13 40 05/30/20 18:00 117/52 05/30/20 18:00 64 16 104/53 (70) 98 05/30/20 17:00 58 14 127/64 (85) 98 05/30/20 17:00 104/53 05/30/20 16:00 57 05/30/20 16:00 99.2 58 12 142/66 (91) 94 05/30/20 16:00 Mechanical Ventilator 05/30/20 16:00 127/64 05/30/20 16:00 40 05/30/20 15:09 64 12 40 05/30/20 15:00 69 13 137/68 (91) 96 05/30/20 15:00 142/68 I&O Intake and Output 05/30/20 05/31/20 19:00 07:00 Intake Total 893.75 ml 1843.575 ml Output Total 1585 ml 1505 ml Balance -691.25 ml 338.575 ml Free Water 50 ml 200 ml IV Total 123.75 ml 923.575 ml Tube Feeding 720 ml 720 ml Output Urine Total 1585 ml 1505 ml Dressing: other Wound: other Cardiovascular: RSR Respiratory: decreased breath sounds Abdomen: soft, present bowel sounds Extremities: no cyanosis Laboratory Tests Test 05/31/20 04:00 05/31/20 12:41 White Blood Count 5.2 K/UL (4.8-10.8) Red Blood Count 3.07 M/UL (4.20-5.40) L Hemoglobin 9.4 G/DL (12.0-16.0) L Hematocrit 28.1 % (37.0-47.0) L Mean Corpuscular Volume 91 FL (80-99) Mean Corpuscular Hemoglobin 30.6 PG (27.0-31.0) Mean Corpuscular Hemoglobin Concent 33.5 G/DL (32.0-36.0) Red Cell Distribution Width 14.2 % (11.6-14.8) Platelet Count 170 K/UL (150-450) Mean Platelet Volume 8.2 FL (6.5-10.1) Neutrophils (%) (Auto) 81.0 % (45.0-75.0) H Lymphocytes (%) (Auto) 9.7 % (20.0-45.0) L Monocytes (%) (Auto) 7.4 % (1.0-10.0) Eosinophils (%) (Auto) 1.2 % (0.0-3.0) Basophils (%) (Auto) 0.7 % (0.0-2.0) Sodium Level 142 MMOL/L (136-145) Potassium Level 4.0 MMOL/L (3.5-5.1) Chloride Level 106 MMOL/L (98-107) Carbon Dioxide Level 32 MMOL/L (21-32) Anion Gap 4 mmol/L (5-15) L Blood Urea Nitrogen 22 mg/dL (7-18) H Creatinine 0.6 MG/DL (0.55-1.30) Estimat Glomerular Filtration Rate > 60 mL/min (>60) Glucose Level 138 MG/DL (74-106) H Calcium Level 8.8 MG/DL (8.5-10.1) POC Whole Blood Glucose 138 MG/DL (74-106) H Plan Problems: (1) Hypernatremia (2) Renal failure (3) Respiratory failure (4) Sepsis Assessment & Plan: COVID + leukocytosis anemia electrolytes abnormal on iv fluids renal input appreciated cxr noted abx as per ID will follow with recs Will likely need trach difficult weaning conservatorship working with case man Body Central to figure out goals of care Interim placement of orogastric tube, also documented on recent abdominal radiograph. Stable satisfactory position of endotracheal tube and right jugular central venous catheter. There is increased pleural fluid and likely left basilar consolidation/atelectasis. The right lung and pleural space remain clear. Impression: Increasing left pleural fluid and likely basilar consolidation/atelectasis. Interim orogastric intubation DAILY ESTIMATED NEEDS: Needs based on Pulmonary, DM, wounds 66.6kg 25-30 kcals/kg [id number] total kcals 1.25-1.5 g protein/kg 83-100 g total protein 20-25 mL/kg [id number] total fluid mLs NUTRITION DIAGNOSIS: Swallowing difficulty r/t dysphagia as evidenced by h/o CVA, pt is GT dep, currently ICU status, now intubated, off pressor support, GT feeds initiated. CURRENT TF:Glucerna 1.2 @45ml/hr ENTERAL NUTRITION RECOMMENDATIONS: As medically able: GLUCERNA 1.5 goal of 45ml/hr x24 hrs to provide 1080ml, 1620 kcal, 89g pro, 820ml free H2O -> as medically able without aspiration risk start Glucerna 1.5 @low rate 25ml/hr for 6 hrs. Advance as tolerated 10ml/hr q4-6 hrs to goal. - Flush per MD, HOB over 30 degrees. ---- If not hemodynamically stable, rec trophic feeds of 5-10ml/hr to maintain gut integrity. ADDITIONAL RECOMMENDATIONS: 1) Obtain an accurate calibrated bed scale wt 2) F/up w/ H&P 3) With active TF orders, add JASMYN BID for noted DTPI wounds 4) TF recs as above when off bipap and w/ hemodynamic stability -> Now intubated, off pressors, on GT feeds. he spleen size is normal. The gallbladder contains sludge. No stones. No wall thickening nor pericholecystic fluid. Common bile duct measures 4 mm in diameter. Small amount free fluid is seen adjacent to the liver and spleen Impression: Gallbladder sludge. Negative for dilated bile ducts Normal appearing liver and spleen Patient with respiratory failure intubated on support unable to wean safely. A tracheostomy in this case would be indicated and recommended. Patient is full code but conserved. Given her condition waiting a significant period of time is at high risk for her given the risk for extubation duration of tube and worsening with her ET tube. A trach would be functional manageable for her and recommended. Unfortunately waiting for the time. Would be advisable and discussed with the social workers child support case officer and medical teams. Accounting Practice Manager as well. ICU team as well. We will proceed with tracheostomy in patient's best interest given her CODE STATUS and wishes and care plan. (5) Elevated d-dimer (6) COVID-19 Assessment & Plan: ++ (7) Pressure ulcer Assessment & Plan: Pt presented on admission with multiple Pressure injuries.DTPI noted to R Buttocks (L)3.8cm x (W)3.4cm. Base of wound is purpuric,fluctuant with surrounding maroon and indurated borders. DTPI Upper L Buttocks(L)5.5cm x (W)4cm. Base of wound is maroon and indurated. Borders are irregular. Non-Blanchable erythema without induration/fluctuance L lower buttocks(L)4cm x (W)7cm. R and L heels are soft but blanchable. Erosion noted at peristomal GT site. Site is erythematous and excoriated. Small amt. sanguineous exudate. Tx.Plan: Apply Moisture Barrier Paste to Sacrum, R and L Buttocks. Cover each area with Optifoam drsg. Change every 3 days and prn. Apply Moisture Barrier Paste to R and L Ischial tuberosities with each incontinence care. Apply Cavilon Skin Barrier to both heels. Cover each heel and malleoli with Optifoam drsg. Change every 7 days and prn. Reposition at least every 2hours or as tolerated. Off-load heels with pillow. APM/DARIN Mattress overlay. Apply Zinc Oxide Paste TID to GT site. Leave open to Air. (8) Dementia (9) CVA (cerebral vascular accident) (10) T2DM (type 2 diabetes mellitus) (11) Gastrostomy present (12) COVID-19 (13) Rapid atrial fibrillation Paul Garcia May 31, 2020 14:29
--- NOTE | 2020-05-31 14:30 | Pre-Procedure Note/Attestation ---
Pre-Procedure Note/Attestation Complete Prior to Procedure Procedure Narrative: tracheostomy Indications for Procedure Pre-Operative Diagnosis: respiratory insufficiency Attestation I attest that I discussed the nature of the procedure; its benefits; risks and complications; and alternatives (and the risks and benefits of such alternatives), prior to the procedure, with the patient (or the patient's legal sales and merchandising representative). I attest that, if there was a reasonable possibility of needing a blood transfusion, the patient (or the patient's legal sales and merchandising representative) was given the [facility] standardized written summary, pursuant to the [place] Blood Safety Act ([place] Health and Safety Code # 1645, as amended). I attest that I re-evaluated the patient just prior to the surgery and that there has been no change in the patient's H&P, except as documented below: Patient with respiratory failure intubated on support unable to wean safely. A tracheostomy in this case would be indicated and recommended. Patient is full code but conserved. Given her condition waiting a significant period of time is at high risk for her given the risk for extubation duration of tube and worsening with her ET tube. A trach would be functional manageable for her and recommended. Unfortunately waiting for the time. Would be advisable and discussed with the social workers case therapist and medical teams. Pu lmonologist as well. ICU team as well. We will proceed with tracheostomy in patient's best interest given her CODE STATUS and wishes and care plan. Paul Garcia May 31, 2020 14:30
--- NOTE | 2020-05-31 15:13 | NUR ---
NURSE NOTES: CALLED MD SMITH REGARDING POSITIVE FOR DVT LEFT FEMORAL. DUE TO TRACH PLACEMENT TOMORROW WILL HOLD ON ANTICOAGULATES FOR NOW. CONTINUE TO MONITOR.
[2020-05-31] MEDS: DOPamine 400mg/250ml 250 ML IV SCH (15:21)
--- NOTE | 2020-05-31 15:49 | NUR ---
[employer]ING [employer]URING SET UP TECHNICIAN NOTE PER PATIENT TO HAVE TRACHEOSTOMY IN AM Addendum: 06/01/20 at 1609 by JAMAL MELLO LVN SURGERY SCHEDULE ISSUE: POSTPONE TRACH TILL AM
--- NOTE | 2020-05-31 15:54 | NUR ---
NURSE NOTES: MD. Wade here to see pt. was informed pt on dopamine drip due to bradycardia, at 5mcg. pt elevated hr now 101-113. MD prefer titrate down 2.5mcg. if continues to elevate hr. stop drip. will monitor. will coordinate with surgeon regarding Trach and PEG.
--- NOTE | 2020-05-31 16:21 | General Progress Note ---
Subjective Date patient seen: May 31, 2020 Time patient seen: 16:00 ROS Limited/Unobtainable: Yes Allergies: Coded Allergies: DIVALPROEX SODIUM (Verified Allergy, Unknown, 05/14/20) PENICILLINS (Verified Allergy, Unknown, 05/14/20) All Systems: reviewed and negative except above Subjective Non verbal, intubated Objective Last 24 Hour Vital Signs Date Time Temp Pulse Resp B/P (MAP) Pulse Ox O2 Delivery O2 Flow Rate FiO2 05/31/20 15:57 149/79 05/31/20 15:34 94/46 05/31/20 15:30 50 14 96/48 (64) 97 05/31/20 15:21 101/50 05/31/20 15:15 56 14 100/62 (75) 94 05/31/20 15:00 55 13 100/54 (69) 98 05/31/20 14:30 55 15 130/77 (94) 100 05/31/20 14:15 60 15 114/62 (79) 99 05/31/20 14:00 64 16 122/66 (84) 98 05/31/20 13:45 99.9 05/31/20 13:15 79 16 131/62 (85) 99 05/31/20 13:00 131/62 05/31/20 13:00 75 17 114/64 (81) 88 05/31/20 12:47 76 15 115/71 (86) 99 05/31/20 12:30 75 16 123/63 (83) 100 05/31/20 12:00 Mechanical Ventilator 05/31/20 12:00 123/63 05/31/20 12:00 100.6 70 15 118/94 (102) 99 05/31/20 12:00 40 05/31/20 12:00 86 05/31/20 11:11 66 14 40 05/31/20 11:00 111/58 05/31/20 11:00 58 16 115/55 (75) 98 05/31/20 10:00 59 15 128/62 (84) 99 05/31/20 10:00 109/98 05/31/20 09:00 111/57 05/31/20 09:00 100.4 71 14 115/61 (79) 100 05/31/20 08:05 40 05/31/20 08:00 Mechanical Ventilator 05/31/20 08:00 108/54 05/31/20 08:00 70 14 100/55 (70) 98 05/31/20 08:00 66 05/31/20 07:24 78 16 40 05/31/20 07:00 110/69 05/31/20 07:00 78 17 110/69 (83) 97 05/31/20 06:30 67 17 05/31/20 06:00 56 15 107/51 (69) 99 05/31/20 06:00 107/51 05/31/20 05:00 51 16 113/49 (70) 98 05/31/20 05:00 115/49 05/31/20 04:00 Mechanical Ventilator 05/31/20 04:00 98.8 57 13 105/53 (70) 98 05/31/20 04:00 40 05/31/20 04:00 57 13 105/53 (70) 98 05/31/20 04:00 67 05/31/20 03:59 116/92 05/31/20 03:58 116/92 05/31/20 03:11 59 16 40 05/31/20 03:00 116/62 05/31/20 03:00 67 14 116/92 (100) 100 05/31/20 02:00 57 14 92/46 (61) 98 05/31/20 02:00 92/46 05/31/20 01:00 56 13 97/57 (70) 98 05/31/20 01:00 97/57 05/31/20 00:45 145/66 05/31/20 00:15 58 143/66 05/31/20 00:00 98.8 58 13 143/66 (91) 98 05/31/20 00:00 Mechanical Ventilator 05/31/20 00:00 143/66 05/31/20 00:00 63 05/31/20 00:00 40 05/30/20 23:10 63 13 40 05/30/20 23:00 155/67 05/30/20 23:00 68 14 155/67 (96) 97 05/30/20 22:37 42 05/30/20 22:17 52 13 88/41 (57) 97 05/30/20 22:00 56 13 86/46 (59) 97 05/30/20 22:00 86/46 05/30/20 21:00 134/69 05/30/20 21:00 48 12 134/69 (90) 99 05/30/20 20:00 40 05/30/20 20:00 98.0 55 16 129/57 (81) 91 05/30/20 20:00 54 05/30/20 20:00 129/57 05/30/20 20:00 Mechanical Ventilator 05/30/20 19:00 131/68 05/30/20 19:00 55 13 131/68 (89) 100 05/30/20 18:39 52 13 40 05/30/20 18:00 117/52 05/30/20 18:00 64 16 104/53 (70) 98 05/30/20 17:00 58 14 127/64 (85) 98 05/30/20 17:00 104/53 Intake and Output 05/30/20 05/31/20 19:00 07:00 Intake Total 893.75 ml 1843.575 ml Output Total 1585 ml 1505 ml Balance -691.25 ml 338.575 ml Free Water 50 ml 200 ml IV Total 123.75 ml 923.575 ml Tube Feeding 720 ml 720 ml Output Urine Total 1585 ml 1505 ml Laboratory Tests 05/31/20 04:00: White Blood Count 5.2, Red Blood Count 3.07L, Hemoglobin 9.4L, Hematocrit 28.1L, Mean Corpuscular Volume 91, Mean Corpuscular Hemoglobin 30.6, Mean Corpuscular Hemoglobin Concent 33.5, Red Cell Distribution Width 14.2, Platelet Count 170, Mean Platelet Volume 8.2, Neutrophils (%) (Auto) 81.0H, Lymphocytes (%) (Auto) 9.7L, Monocytes (%) (Auto) 7.4, Eosinophils (%) (Auto) 1.2, Basophils (%) (Auto) 0.7, Sodium Level 142, Potassium Level 4.0, Chloride Level 106, Carbon Dioxide Level 32, Anion Gap 4L, Blood Urea Nitrogen 22H, Creatinine 0.6, Estimat Glomerular Filtration Rate > 60, Glucose Level 138H, Calcium Level 8.8 05/31/20 12:41: POC Whole Blood Glucose 138H Height (Feet): 5 Height (Inches): 4.00 Weight (Pounds): 149 General Appearance: WD/WN EENT: PERRL/EOMI Neck: non-tender Cardiovascular: normal rate Respiratory/Chest: decreased breath sounds Abdomen: non tender Assessment/Plan Status: stable Assessment/Plan: 70-year-old female history of dementia, cachexia, dysphasia G-tube dependent feeding presents for evaluation of rapid heart rate and hypotension. # Septic with element of cardiogenic shock Etiology COVID 19 vs UTI vs bacteremia / contaminant and NSTEMI Bcx POSITIVE WITH G+ Cocci s/p vancomycin Sputum Cx 05/25 reviewed today with Pseudomonas. Colonizer and recent completion of 14 day treatment with Meropenem U cx 05/14 Proteus Mirabillis Continue Meropenem 14 days completed Vancomycin stopped stopped Cefepime Dexamethasone 10 day course completed Leukocytosis improved. # Acute respiratory failure Intubated and not ready to wean off. Self extubated 05/27 and re intubated by ED MD successfully. ICU care appreciated Dr. Enriquez following Ventilator management per ICU-pulmonary FiO2 40 % today. T piece. Medically tracheostomy is needed as she is not tolerating wean off. Overall, her quality of life will not improve from prior baseline with advanced dementia. Will need permanent ventilator support via tracheostomy and subacute level of care. Critical care attending, Surgery and GI attendings notified to plan PEG and TRACH as medically indicated. # SVT vs A. Flutter s/p DC x 3 # NSTEMI HR is controlled in the 100 range and tolerating Digoxin Vasopressors in place Levophed at [address] Morillo requested and TTE requested and poor window. Limited due to covid positive Troponin 3.4 now 0.7 EKG 05/17 NSR, stable. # AG metabolic acidosis Ddx lactic acidosis Improved. # Hyperglycemia r/o DKA ABG and Ketones negative Endocrine consult with Dr. Shelley IV insulin gtt stopped and in SQ insulin coverage now # Hypernatremia resolved Improving Monitor BMP # COVID 19 Positive on admission. Original infection > 15 days ago, do not qualify for Revdisimir or plasma On Dexamethasone completed 10 day course Contact and droplet isolation # Dysphagia PEG REMOVED 05/16 Carlo Vargas consulted and appreciate follow up and final plan for PEG replacement PENDING. PEG site with dressing in place and OFF PEG for now. NGT placed and Tube feeds started 05/18 and being tolerated at 45 cc hr Glucerna 1.2 # Severe protein caloric malnutrition with Albumin 1.5 RD follow up # Thrombocytopenia Platelets down from 80 K to 64 K to 66 K ( OFF Heparin ) and improved to normal range. 05/17 dc heparin, use SCD, order US Liver, HIT Ab, HIV negative US legs to r.o dvt per [facility] policy # Newly detected lower extremity DVT HOLD off anticoagulation as tracheostomy is planned for tomorrow. # Hypokalemia Improved # Dementia Baseline # FULL CODE SW follow up to reach out to DPOA and consider change in code status due to high morbidity and risk of inpatient mortality. Paperwork completed for superior court of the [facility] for request of tracheostomy and gastrostomy placement due to medical need on 05/26/20 Bioethic consult requested and spoke with Dr. Hung from ethics and I agree with his assessment that the patient quality of life will NOT IMPROVE with tracheostomy and replacement of PEG. The patient is very limited due to her underlying dementia and now unable to wean off the ventilator. Terminal extubation and DNR is medically recommended and there is NO FAMILY, CONSERVATOR refused to make a decision. Court decision on the matter submitted and PENDING. Due to the medical need for TRACH and PEG, this will be scheduled at this time. > 50 min spent in coordination of care and consultation with physicians and RN. Jessica Wade MD May 31, 2020 16:21
--- NOTE | 2020-05-31 16:33 | Cardiac Electrophysiology PN ---
Assessment/Plan Assessment/Plan 1. [id number] myocardial infarction. Her troponin was 1.258,1.2,1.9, 3.4 and the down to 0.7 EKG does not show any acute ST-T wave abnormality and certainly no ST elevation. Due to septic shock, DCCV and Renal failure. The echocardiogram had poor windows. 2. PAF with RVR. S/P DCCV 3 times No more fib or accelerated junctional rhythm. Can not use beta-ramakrishna or calcium-channel ramakrishna as the patient is still on Levophed. Dig level is 1.6 3. S/P Septic shock. On Levophed, Midodrine and antibiotic 4. Bradycardia requiring Atropine x 3 on 05/30/20. Change Levophed to Dopamine 5. Severe hypernatremia with sodium of 174, BUN of 131, creatinine 2.7 due to dehydration. Sodium is 155 with BUN of 91 and creatinine of 1.9 with IV fluids. 6. Dysphagia, status post PEG placement. GT has trice removed on 05/18 still some drainage from the GT site GT replacement when more stable per Dr Matos 7. History of CVA and dementia. 8. Respiratory failure, Tracheostomy by Dr Garcia tomorrow KIMMY RN Subjective Subjective In ICU in SR with no atrial fib but had bradycardia and received atropine 3 times On 1 Mcg Levophed Objective Last 24 Hour Vital Signs Date Time Temp Pulse Resp B/P (MAP) Pulse Ox O2 Delivery O2 Flow Rate FiO2 05/31/20 15:57 149/79 05/31/20 15:34 94/46 05/31/20 15:30 50 14 96/48 (64) 97 05/31/20 15:21 101/50 05/31/20 15:15 56 14 100/62 (75) 94 05/31/20 15:00 55 13 100/54 (69) 98 05/31/20 14:30 55 15 130/77 (94) 100 05/31/20 14:15 60 15 114/62 (79) 99 05/31/20 14:00 64 16 122/66 (84) 98 05/31/20 13:45 99.9 05/31/20 13:15 79 16 131/62 (85) 99 05/31/20 13:00 131/62 05/31/20 13:00 75 17 114/64 (81) 88 05/31/20 12:47 76 15 115/71 (86) 99 05/31/20 12:30 75 16 123/63 (83) 100 05/31/20 12:00 Mechanical Ventilator 05/31/20 12:00 123/63 05/31/20 12:00 100.6 70 15 118/94 (102) 99 05/31/20 12:00 40 05/31/20 12:00 86 05/31/20 11:11 66 14 40 05/31/20 11:00 111/58 05/31/20 11:00 58 16 115/55 (75) 98 05/31/20 10:00 59 15 128/62 (84) 99 05/31/20 10:00 109/98 05/31/20 09:00 111/57 05/31/20 09:00 100.4 71 14 115/61 (79) 100 05/31/20 08:05 40 05/31/20 08:00 Mechanical Ventilator 05/31/20 08:00 108/54 05/31/20 08:00 70 14 100/55 (70) 98 05/31/20 08:00 66 05/31/20 07:24 78 16 40 05/31/20 07:00 110/69 05/31/20 07:00 78 17 110/69 (83) 97 05/31/20 06:30 67 17 05/31/20 06:00 56 15 107/51 (69) 99 05/31/20 06:00 107/51 05/31/20 05:00 51 16 113/49 (70) 98 05/31/20 05:00 115/49 05/31/20 04:00 Mechanical Ventilator 05/31/20 04:00 98.8 57 13 105/53 (70) 98 05/31/20 04:00 40 05/31/20 04:00 57 13 105/53 (70) 98 05/31/20 04:00 67 05/31/20 03:59 116/92 05/31/20 03:58 116/92 05/31/20 03:11 59 16 40 05/31/20 03:00 116/62 05/31/20 03:00 67 14 116/92 (100) 100 05/31/20 02:00 57 14 92/46 (61) 98 05/31/20 02:00 92/46 05/31/20 01:00 56 13 97/57 (70) 98 05/31/20 01:00 97/57 05/31/20 00:45 145/66 05/31/20 00:15 58 143/66 05/31/20 00:00 98.8 58 13 143/66 (91) 98 05/31/20 00:00 Mechanical Ventilator 05/31/20 00:00 143/66 05/31/20 00:00 63 05/31/20 00:00 40 05/30/20 23:10 63 13 40 05/30/20 23:00 155/67 05/30/20 23:00 68 14 155/67 (96) 97 05/30/20 22:37 42 05/30/20 22:17 52 13 88/41 (57) 97 05/30/20 22:00 56 13 86/46 (59) 97 05/30/20 22:00 86/46 05/30/20 21:00 134/69 05/30/20 21:00 48 12 134/69 (90) 99 05/30/20 20:00 40 05/30/20 20:00 98.0 55 16 129/57 (81) 91 05/30/20 20:00 54 05/30/20 20:00 129/57 05/30/20 20:00 Mechanical Ventilator 05/30/20 19:00 131/68 05/30/20 19:00 55 13 131/68 (89) 100 05/30/20 18:39 52 13 40 05/30/20 18:00 117/52 05/30/20 18:00 64 16 104/53 (70) 98 05/30/20 17:00 58 14 127/64 (85) 98 05/30/20 17:00 104/53 Intake and Output 05/30/20 05/31/20 19:00 07:00 Intake Total 893.75 ml 1843.575 ml Output Total 1585 ml 1505 ml Balance -691.25 ml 338.575 ml Free Water 50 ml 200 ml IV Total 123.75 ml 923.575 ml Tube Feeding 720 ml 720 ml Output Urine Total 1585 ml 1505 ml Laboratory Tests Test 05/31/20 04:00 05/31/20 12:41 White Blood Count 5.2 K/UL (4.8-10.8) Red Blood Count 3.07 M/UL (4.20-5.40) L Hemoglobin 9.4 G/DL (12.0-16.0) L Hematocrit 28.1 % (37.0-47.0) L Mean Corpuscular Volume 91 FL (80-99) Mean Corpuscular Hemoglobin 30.6 PG (27.0-31.0) Mean Corpuscular Hemoglobin Concent 33.5 G/DL (32.0-36.0) Red Cell Distribution Width 14.2 % (11.6-14.8) Platelet Count 170 K/UL (150-450) Mean Platelet Volume 8.2 FL (6.5-10.1) Neutrophils (%) (Auto) 81.0 % (45.0-75.0) H Lymphocytes (%) (Auto) 9.7 % (20.0-45.0) L Monocytes (%) (Auto) 7.4 % (1.0-10.0) Eosinophils (%) (Auto) 1.2 % (0.0-3.0) Basophils (%) (Auto) 0.7 % (0.0-2.0) Sodium Level 142 MMOL/L (136-145) Potassium Level 4.0 MMOL/L (3.5-5.1) Chloride Level 106 MMOL/L (98-107) Carbon Dioxide Level 32 MMOL/L (21-32) Anion Gap 4 mmol/L (5-15) L Blood Urea Nitrogen 22 mg/dL (7-18) H Creatinine 0.6 MG/DL (0.55-1.30) Estimat Glomerular Filtration Rate > 60 mL/min (>60) Glucose Level 138 MG/DL (74-106) H Calcium Level 8.8 MG/DL (8.5-10.1) POC Whole Blood Glucose 138 MG/DL (74-106) H Objective HEAD AND NECK: No JVD. She is orally intubated. NGT LUNGS: Coarse rhonchi. CARDIOVASCULAR: Shows regular S1 and S2 with no gallop. ABDOMEN: Soft. G-tube site is covered. EXTREMITIES: Show no pitting edema. Norman Morillo MD May 31, 2020 16:33
--- NOTE | 2020-05-31 16:42 | Anethesia Preoperative Eval ---
Anesthesia Pre-op PMH/ROS General Date of Evaluation: May 31, 2020 Time of Evaluation: 16:36 Anesthesiologist: Inocencia ASA Score: ASA 4 Mallampati Score Class I : Soft palate, uvula, fauces, pillars visible Class II: Soft palate, uvula, fauces visible Class III: Soft palate, base of uvula visible Class IV: Only hard plate visible Mallampati Classification: Class III Surgeon: Devante Diagnosis: Respiratory failure Surgical Procedure: Tracheostomy Anesthesia History: none Family History: no anesthesia problems Allergies: Coded Allergies: DIVALPROEX SODIUM (Verified Allergy, Unknown, 05/14/20) PENICILLINS (Verified Allergy, Unknown, 05/14/20) Medications: see eMAR Patient NPO?: Yes Past Medical History Cardiovascular: Reports: HTN, CAD, ND, arrhythmia - Afib with RVR, other - CHF Pulmonary: Reports: other - COVID +; Denies: asthma, COPD, LUCY Gastrointestinal/Genitourinary: Reports: GERD, other - Dysphagia, feeding tube in place; Denies: CRI, ESRD Neurologic/Psychiatric: Reports: dementia, CVA, depression/anxiety; Denies: TIA, other Endocrine: Reports: DM, hypothyroidism; Denies: steroids, other HEENT: Reports: glaucoma, other - legaly blind; Denies: cataract (L), cataract (R), WALES (L), WALES (R) Hematology/Immune: Reports: anemia; Denies: DVT, bleeding disorder, other Musculoskeletal/Integumentary: Reports: OA; Denies: RA, DJD, DDD, edema, other Other: other - malnourished PMH Narrative: as above PSxH Narrative: See H&P Anesthesia Pre-op Phys. Exam Physician Exam Last Vital Signs Date Time Temp Pulse Resp B/P (MAP) Pulse Ox O2 Delivery O2 Flow Rate FiO2 05/31/20 15:57 149/79 05/31/20 15:30 50 14 97 05/31/20 13:45 99.9 05/31/20 12:00 Mechanical Ventilator 05/31/20 12:00 40 05/24/20 12:25 12.0 Constitutional: NAD Neurologic: other - unable to obtaine Cardiovascular: other - Hypotensive on & off pressors Respiratory: CTA - diminished breath sounds Gastrointestinal: S/NT/ND Airway Exam Mallampati Score: Class III - oraly intubated MO: limited Neck: stiff ROM: limited Teeth: missing Dentures: no upper, no lower Anesthesia Pre-op A/P Labs Hematology Test 05/31/20 04:00 White Blood Count 5.2 K/UL (4.8-10.8) Red Blood Count 3.07 M/UL (4.20-5.40) L Hemoglobin 9.4 G/DL (12.0-16.0) L Hematocrit 28.1 % (37.0-47.0) L Mean Corpuscular Volume 91 FL (80-99) Mean Corpuscular Hemoglobin 30.6 PG (27.0-31.0) Mean Corpuscular Hemoglobin Concent 33.5 G/DL (32.0-36.0) Red Cell Distribution Width 14.2 % (11.6-14.8) Platelet Count 170 K/UL (150-450) Mean Platelet Volume 8.2 FL (6.5-10.1) Neutrophils (%) (Auto) 81.0 % (45.0-75.0) H Lymphocytes (%) (Auto) 9.7 % (20.0-45.0) L Monocytes (%) (Auto) 7.4 % (1.0-10.0) Eosinophils (%) (Auto) 1.2 % (0.0-3.0) Basophils (%) (Auto) 0.7 % (0.0-2.0) Chemistry Test 05/31/20 04:00 05/31/20 12:41 Sodium Level 142 MMOL/L (136-145) Potassium Level 4.0 MMOL/L (3.5-5.1) Chloride Level 106 MMOL/L (98-107) Carbon Dioxide Level 32 MMOL/L (21-32) Anion Gap 4 mmol/L (5-15) L Blood Urea Nitrogen 22 mg/dL (7-18) H Creatinine 0.6 MG/DL (0.55-1.30) Estimat Glomerular Filtration Rate > 60 mL/min (>60) Glucose Level 138 MG/DL (74-106) H Calcium Level 8.8 MG/DL (8.5-10.1) POC Whole Blood Glucose 138 MG/DL (74-106) H Risk Assessment & Plan Assessment: ASA 4 Plan: Justin Jones MD May 31, 2020 16:42
--- NOTE | 2020-05-31 17:00 | NUR ---
NURSE NOTES: accu chk 125, no coverage. pt cleaned and reposition. no bm. bellamy care provided.
[2020-05-31 17:34] LABS: APPEARANCE,URINE CLEAR; BILIRUBIN, URINE NEGATIVE (NEGATIVE); COLOR,URINE PALE YELLOW; GLUCOSE, URINE (UA) NEGATIVE (NEGATIVE); KETONES,URINE NEGATIVE (NEGATIVE); LEUKOCYTE ESTERASE ,URINE 1+ (NEGATIVE); NITRITE,URINE NEGATIVE (NEGATIVE); PH,URINE 8 (4.5-8.0); PROTEIN,URINE 2+ (NEGATIVE); UROBILINOGEN,URINE NORMAL MG/DL (0.0-1.0)
--- NOTE | 2020-05-31 19:21 | NUR ---
HAND-OFF: Report given to Dana perez pt in no acute distress
--- NOTE | 2020-05-31 19:25 | NUR ---
NURSE NOTES: Called Lab spoke with Marci regarding timed PTT, patient on Heparin drip. per Marci will send someone to do it. Addendum: 05/31/20 at 2009 by PAOLA JACOBS RN wrong pt
--- NOTE | 2020-05-31 19:30 | NUR ---
NURSE NOTES: Received report from SARA Rodriguez. Patient in bed obtunded no s/s of acute distress noted. Orally intubated fi02 40% satting 100%. HOB elevated. Suctioned patient orally. NGT intact running Glucerna1.2 at 60cc/hr no residual. Arauz intact draining with pale color urine. no s/s of hypo/hyperglycemia. Bilateral wrist restraint intact. on P200 mattress for wound management. Contact isolation and airborne precaution maintained and observed. Right IJ TLC infusing Dopamine at 2.5mcg/min and 1/2 NS at 75cc/hr. will continue plan of care.
[2020-05-31] MEDS: Dyna-Hex 2% Top Sol 2oz TOPIC SCH (20:05)
--- NOTE | 2020-05-31 21:30 | NUR ---
NURSE NOTES: Patient in bed awake, no moaning no facial grimaces. Turned and repositioned patient in bed. comfort measure provided. SR on rubber off HR . HOB elevated. will continue plan of care.
[2020-06-01] VITALS (29 sets, daily range): BP systolic 72–127; BP diastolic 52–90
--- NOTE | 2020-06-01 | NUR ---
NURSE NOTES: patient blood glucose 130mg/dl. no s/s of acute distress noted. no fever. no diarrhea. no n/v. oral care provided. continue on Dopamine drip at 2.5mcg/kg/min BP120/69. HOB elevated. frequent visual checks continued. will continue plan of care.
--- NOTE | 2020-06-01 00:10 | NUR ---
NURSE NOTES: NPO after 12mn for tracheostomy in am.
[2020-06-01] MEDS: Phenylephrine 100 MG in D5W 240 ML IV SCH (00:15)
[2020-06-01] MEDS: Vasopressin 100 UNITS in NS 95 ML IV SCH (00:15)
--- NOTE | 2020-06-01 02:00 | NUR ---
NURSE NOTES: Bed bath given tolerated well.
--- NOTE | 2020-06-01 04:00 | NUR ---
NURSE NOTES: Patient in bed awake, no moaning no facial grimaces. Turned and repositioned patient in bed. comfort measure provided. SR on front desk monitor HR . HOB elevated. will continue plan of care.
[2020-06-01] MEDS: NovoLOG Insulin Flexpen SUBQ SCH ×4 (06:00→18:00)
--- NOTE | 2020-06-01 06:00 | NUR ---
NURSE NOTES: patient blood glucose 120mg/dl. no s/s of acute distress noted. no fever. no diarrhea. no n/v. oral care provided. continue on Dopamine drip at 2.5mcg/kg/min BP125/77. HOB elevated. frequent visual checks continued. will continue plan of care.
[2020-06-01 06:01] LABS: BASOPHILS % (AUTO) 0.7 % (0.0-2.0); EOSINOPHILS % (AUTO) 0.8 % (0.0-3.0); HEMOGLOBIN 9.1 G/DL (12.0-16.0); LYMPHOCYTES % (AUTO) 10.3 % (20.0-45.0); MEAN CORPUSCULAR VOLUME 91 FL (80-99); MONOCYTES % (AUTO) 6.5 % (1.0-10.0); NEUTROPHILS % (AUTO) 81.7 % (45.0-75.0); PLATELET COUNT 151 K/UL (150-450); RED BLOOD COUNT 2.96 M/UL (4.20-5.40); RED CELL DISTRIBUTION WIDTH 13.7 % (11.6-14.8); WHITE BLOOD COUNT 4.3 K/UL (4.8-10.8)
[2020-06-01 06:30] LABS: ALANINE AMINOTRANSFERASE 41 U/L (12-78); ALBUMIN 1.6 G/DL (3.4-5.0); ALBUMIN/GLOBULIN RATIO 0.5 (1.0-2.7); ALKALINE PHOSPHATASE 65 U/L (46-116); ANION GAP 5 mmol/L (5-15); ASPARTATE AMINO TRANSFERASE 28 U/L (15-37); BILIRUBIN,TOTAL 0.4 MG/DL (0.2-1.0); BLOOD UREA NITROGEN 19 mg/dL (7-18); CALCIUM 9.1 MG/DL (8.5-10.1); CARBON DIOXIDE 32 MMOL/L (21-32); CHLORIDE 104 MMOL/L (98-107); CREATININE 0.5 MG/DL (0.55-1.30); POTASSIUM 3.9 MMOL/L (3.5-5.1); SODIUM 141 MMOL/L (136-145)
--- NOTE | 2020-06-01 06:36 | General Progress Note ---
Subjective ROS Limited/Unobtainable: Yes Allergies: Coded Allergies: DIVALPROEX SODIUM (Verified Allergy, Unknown, 05/14/20) PENICILLINS (Verified Allergy, Unknown, 05/14/20) Subjective events noted and interval notes reviewed glucose values are stable Item Value Date Time Bedside Blood Glucose 130 mg/dl H 06/01/20 0000 Bedside Blood Glucose 125 mg/dl H 05/31/20 1800 Bedside Blood Glucose 138 mg/dl H 05/31/20 1200 Bedside Blood Glucose 138 mg/dl H 05/31/20 0600 Bedside Blood Glucose 135 mg/dl H 05/31/20 0000 Objective Last 24 Hour Vital Signs Date Time Temp Pulse Resp B/P (MAP) Pulse Ox O2 Delivery O2 Flow Rate FiO2 06/01/20 06:00 68 12 107/56 (73) 97 06/01/20 05:00 69 12 97/52 (67) 97 06/01/20 04:00 Mechanical Ventilator 06/01/20 04:00 70 24 100/54 (69) 98 06/01/20 04:00 72 06/01/20 04:00 40 06/01/20 03:11 77 14 40 06/01/20 03:00 76 13 108/59 (75) 100 06/01/20 02:00 70 14 119/63 (81) 96 06/01/20 02:00 119/63 06/01/20 01:00 73 12 113/55 (74) 100 06/01/20 01:00 112/63 06/01/20 00:15 73 119/63 06/01/20 00:00 120/69 06/01/20 00:00 74 06/01/20 00:00 Mechanical Ventilator 06/01/20 00:00 98.2 75 14 119/72 (88) 100 06/01/20 00:00 40 05/31/20 23:01 72 13 40 05/31/20 23:00 129/67 05/31/20 23:00 76 13 121/67 (85) 99 05/31/20 22:00 75 14 104/58 (73) 96 05/31/20 22:00 120/64 05/31/20 21:00 69 13 122/64 (83) 98 05/31/20 21:00 122/58 05/31/20 20:00 127/69 05/31/20 20:00 98.5 69 15 132/76 (94) 92 05/31/20 20:00 40 05/31/20 20:00 Mechanical Ventilator 05/31/20 20:00 74 05/31/20 19:05 129/73 05/31/20 19:02 81 13 40 05/31/20 19:00 71 15 129/73 (91) 99 05/31/20 18:00 116/61 05/31/20 18:00 80 18 103/54 (70) 94 05/31/20 16:45 72 14 116/63 (80) 98 05/31/20 16:30 79 12 121/70 (87) 96 05/31/20 16:15 109 17 128/67 (87) 97 05/31/20 16:00 40 05/31/20 16:00 98.9 98 15 113/67 (82) 93 05/31/20 16:00 79 05/31/20 16:00 Mechanical Ventilator 05/31/20 15:57 149/79 05/31/20 15:34 94/46 05/31/20 15:30 50 14 96/48 (64) 97 05/31/20 15:21 101/50 05/31/20 15:15 56 14 100/62 (75) 94 05/31/20 15:07 98 13 40 05/31/20 15:00 55 13 100/54 (69) 98 05/31/20 14:30 55 15 130/77 (94) 100 05/31/20 14:15 60 15 114/62 (79) 99 05/31/20 14:00 64 16 122/66 (84) 98 05/31/20 13:45 99.9 05/31/20 13:15 79 16 131/62 (85) 99 05/31/20 13:00 131/62 05/31/20 13:00 75 17 114/64 (81) 88 05/31/20 12:47 76 15 115/71 (86) 99 05/31/20 12:30 75 16 123/63 (83) 100 05/31/20 12:00 Mechanical Ventilator 05/31/20 12:00 123/63 05/31/20 12:00 100.6 70 15 118/94 (102) 99 05/31/20 12:00 40 05/31/20 12:00 86 05/31/20 11:11 66 14 40 05/31/20 11:00 111/58 05/31/20 11:00 58 16 115/55 (75) 98 05/31/20 10:00 59 15 128/62 (84) 99 05/31/20 10:00 109/98 05/31/20 09:00 111/57 05/31/20 09:00 100.4 71 14 115/61 (79) 100 05/31/20 08:05 40 05/31/20 08:00 Mechanical Ventilator 05/31/20 08:00 108/54 05/31/20 08:00 70 14 100/55 (70) 98 05/31/20 08:00 66 05/31/20 07:24 78 16 40 05/31/20 07:00 110/69 05/31/20 07:00 78 17 110/69 (83) 97 Intake and Output0 05/31/20 06/01/20 19:00 07:00 Intake Total 1674.375 ml 1315.875 ml Output Total 1125 ml 2155 ml Balance 549.375 ml -839.125 ml Free Water 200 ml IV Total 864.375 ml 875.875 ml Tube Feeding 720 ml 240 ml Other 90 ml Output Urine Total 1125 ml 2155 ml # Bowel Movements 1 Laboratory Tests 05/31/20 12:41: POC Whole Blood Glucose 138H 05/31/20 16:00: Urine Color Pale yellow, Urine Appearance Clear, Urine pH 8, Urine Specific [place] 1.010, Urine Protein 2+H, Urine Glucose (UA) Negative, Urine Ketones Negative, Urine Blood 2+H, Urine Nitrite Negative, Urine Bilirubin Negative, Urine Urobilinogen Normal, Urine Leukocyte Esterase 1+H, Urine RBC 5-10H, Urine WBC 10-15H, Urine Squamous Epithelial Cells ModerateH, Urine Bacteria ModerateH, Urine Yeast ModerateH 05/31/20 18:30: POC Whole Blood Glucose 125H 06/01/20 04:50: White Blood Count 4.3L, Red Blood Count 2.96L, Hemoglobin 9.1L, Hematocrit 27.0L , Mean Corpuscular Volume 91, Mean Corpuscular Hemoglobin 30.7, Mean Corpuscular Hemoglobin Concent 33.7, Red Cell Distribution Width 13.7, Platelet Count 151, Mean Platelet Volume 7.8, Neutrophils (%) (Auto) 81.7H, Lymphocytes (%) (Auto) 10.3L, Monocytes (%) (Auto) 6.5, Eosinophils (%) (Auto) 0.8, Basophils (%) (Auto) 0.7, Prothrombin Time [Pending], Prothromb Time International Ratio [Pending], Activated Partial Thromboplast Time [Pending], Sodium Level 141, Potassium Level 3.9, Chloride Level 104, Carbon Dioxide Level 32, Anion Gap 5, Blood Urea Nitrogen 19H, Creatinine 0.5L, Estimat Glomerular Filtration Rate > 60, Glucose Level 120H, Calcium Level 9.1, Total Bilirubin 0.4, Aspartate Amino Transf (AST/SGOT) 28, Alanine Aminotransferase (ALT/SGPT) 41, Alkaline Phosphatase 65, Total Protein 5.1L, Albumin 1.6L, Globulin 3.5, Albumin/Globulin Ratio 0.5L Height (Feet): 5 Height (Inches): 4.00 Weight (Pounds): 149 Objective Current Medications Medications (Trade) Dose Ordered Sig/Morgan Route PRN Reason Start Time Stop Time Status Last Admin Dose Admin Acetaminophen (Tylenol) 650 mg Q4H PRN GT Temp >100.5 05/16/20 06:15 06/15/20 06:14 05/31/20 13:15 Acetaminophen (Tylenol) 650 mg Q4H PRN RECTAL Temp >100.5 05/16/20 19:45 06/15/20 19:44 05/17/20 18:30 Atropine Sulfate (Atropine 0.4mg/ ml) 0.4 mg Q2HR PRN IVP HR <45 05/29/20 21:30 06/28/20 19:24 05/30/20 22:39 Chlorhexidine Gluconate (Lilliam-Hex 2%) 1 applic DAILY@2000 TOPIC 05/15/20 20:00 08/13/20 19:59 05/31/20 20:05 Dextrose (Dextrose 50%) 25 ml Q30M PRN IV Hypoglycemia 05/22/20 00:00 08/20/20 00:00 Dextrose (Dextrose 50%) 50 ml Q30M PRN IV Hypoglycemia 05/22/20 00:00 08/20/20 00:00 Dopamine HCl/ Dextrose 250 ml @ 0 mls/hr Q24H IV 05/31/20 15:15 06/03/20 15:03 05/31/20 15:21 Insulin Aspart (NovoLOG) EVERY 6 HOURS SUBQ 05/22/20 06:00 08/20/20 05:59 05/27/20 05:57 Midodrine (Pro-Amatine) 10 mg TID ORAL 05/23/20 09:00 08/21/20 08:59 05/31/20 18:17 Pantoprazole (Protonix) 40 mg DAILY IV 05/15/20 09:00 06/14/20 08:59 05/31/20 08:34 Phenylephrine HCl 100 mg/Dextrose 250 ml @ 0 mls/hr Q24H IV 05/15/20 00:15 06/03/20 23:59 05/15/20 13:28 Sodium Chloride 1,000 ml @ 75 mls/hr [id number] IV 05/15/20 06:45 06/14/20 06:44 05/31/20 23:28 Vasopressin 100 units/Sodium Chloride 100 ml @ 0 mls/hr Q24H IV 05/15/20 00:15 06/03/20 23:59 Zinc Oxide (Zinc Oxide) 1 applic TIDPRN PRN TOPIC Abdominal cramps 05/20/20 13:00 08/18/20 12:59 Assessment/Plan Problem List: (1) COVID-19 ICD Codes: U07.1 - COVID-19 SNOMED: 928800540 (2) Elevated d-dimer ICD Codes: R79.89 - Other specified abnormal findings of blood chemistry SNOMED: 219978808 (3) Rapid atrial fibrillation ICD Codes: I48.91 - Unspecified atrial fibrillation SNOMED: 682501867 (4) Sepsis ICD Codes: A41.9 - Sepsis, unspecified organism SNOMED: 53753095 (5) Respiratory failure ICD Codes: J96.90 - Respiratory failure, unspecified, unspecified whether with hypoxia or hypercapnia SNOMED: 213119150 (6) Renal failure ICD Codes: N19 - Unspecified kidney failure SNOMED: 28058890 (7) Hypernatremia ICD Codes: E87.0 - Hyperosmolality and hypernatremia SNOMED: 129340599 (8) T2DM (type 2 diabetes mellitus) ICD Codes: E11.9 - Type 2 diabetes mellitus without complications SNOMED: 76937612 Status: stable Assessment/Plan: no need for basal insulin continue Novolog sliding scale every 6 hours hypoglycemia protocol in order Chau Shelley MD Jun 01, 2020 06:36
--- NOTE | 2020-06-01 07:05 | NUR ---
HAND-OFF: Report given to Michael RUIZ.
[2020-06-01 07:15] LABS: INR 0.9 (0.9-1.1)
--- NOTE | 2020-06-01 07:20 | NUR ---
NURSE NOTES: LATE ENTRY: RECEIVED REPORT FROM PAOLA Duff PT SEMI-FOLWER'S. FLAT EFFECT. OPENS EYES. PUPILS SLUGGISH 3MM. NONVERBAL. VSS. PT INTUBATED. ETTUBE 7.5, 23CM AT LIP. VENT SETTINGS AC 12, VT 500 FI02 40%, PEEP 5. LUNG SOUNDS DIMINISHED BILATERAL. SECRETIONS SCANT, HINOJOSA. RT NARES NGT. TUBE FEEDING GLUCERNA 1.2, ON HOLD PRIOR TO PROCEDURE. NPO POST MN. NO BM NOTED. ABDOMEN SOFT. BOWEL SOUNDS HYPOACTIVE. DEL TORO IN PLACE. DRAINING BELOW BLADDER. SKIN- SEE ASSESSMENT. NON PITTING EDEMA OF HANDS. BILATERAL RADIAL AND PEDAL PULSES WEAK. SOFT WRIST RESTRAINT IN PLACE. CIRCULATION CHECK COMPLETED. IV ACCESS RT IJ, FLUIDS RUNNING 1/2 NS AT 75ML/HR, DOPAMINE DRIP AT 2.5MCG/KG/MIN. PT IN [place]/CONTACT ISOLATION. BED LOCKED, IN LOW POSITION. SIDE RAILS X2, BED ALARM ON. WILL CONTINUE TO MONITOR PT.
--- NOTE | 2020-06-01 08:00 | NUR ---
NURSE NOTES: LATE ENTRY: COOLING MEASURES IN PLACE, PT FEBRILE AX 100.0. COOL WIPE DOWN, ICE PACKS APPLIED. WILL CONTINUE TO MONITOR.
--- NOTE | 2020-06-01 09:00 | NUR ---
NURSE NOTES: LATE ENTRY: RECEIVED CALL FROM MD. MILLER REGARDING PT STATUS. INFORMED THAT PT SCHEDULED FOR TRACH TODAY. PER MD SMITH YESTERDAY PT WANTS TRACH AND PEG COMPLETED TOGETHER. WILL CONTACT MD. SMITH FOR DETAILS. PT HAS BEEN NPO SINCE MN. ON DOPAMINE DRIP.
[2020-06-01] MEDS: Midodrine 10mg tab ORAL SCH ×3 (09:04→18:00)
[2020-06-01] MEDS: Pantoprazole Inj IV SCH (09:04)
--- NOTE | 2020-06-01 10:45 | General Progress Note ---
Subjective ROS Limited/Unobtainable: No Allergies: Coded Allergies: DIVALPROEX SODIUM (Verified Allergy, Unknown, 05/14/20) PENICILLINS (Verified Allergy, Unknown, 05/14/20) Objective Last 24 Hour Vital Signs Date Time Temp Pulse Resp B/P (MAP) Pulse Ox O2 Delivery O2 Flow Rate FiO2 06/01/20 10:00 99/56 06/01/20 10:00 75 99/56 (70) 96 06/01/20 09:30 75 12 115/90 (98) 96 06/01/20 09:00 78 12 111/62 (78) 96 06/01/20 08:45 84 13 99/59 (72) 96 06/01/20 08:30 87 16 106/54 (71) 98 06/01/20 08:15 76 13 100/53 (69) 97 06/01/20 08:00 85 06/01/20 08:00 40 06/01/20 08:00 100.0 76 12 106/52 (70) 96 06/01/20 08:00 Mechanical Ventilator 06/01/20 07:00 69 12 117/60 (79) 97 06/01/20 07:00 108/58 06/01/20 06:50 80 14 40 06/01/20 06:30 72 17 06/01/20 06:00 107/56 06/01/20 06:00 68 12 107/56 (73) 97 06/01/20 05:00 69 12 97/52 (67) 97 06/01/20 05:00 97/52 06/01/20 04:00 Mechanical Ventilator 06/01/20 04:00 70 24 100/54 (69) 98 06/01/20 04:00 100/54 06/01/20 04:00 72 06/01/20 04:00 40 06/01/20 03:11 77 14 40 06/01/20 03:00 108/59 06/01/20 03:00 76 13 108/59 (75) 100 06/01/20 02:00 70 14 119/63 (81) 96 06/01/20 02:00 119/63 06/01/20 01:00 73 12 113/55 (74) 100 06/01/20 01:00 112/63 06/01/20 00:15 73 119/63 06/01/20 00:00 120/69 06/01/20 00:00 74 06/01/20 00:00 Mechanical Ventilator 06/01/20 00:00 98.2 75 14 119/72 (88) 100 06/01/20 00:00 40 05/31/20 23:01 72 13 40 05/31/20 23:00 129/67 05/31/20 23:00 76 13 121/67 (85) 99 05/31/20 22:00 75 14 104/58 (73) 96 05/31/20 22:00 120/64 05/31/20 21:00 69 13 122/64 (83) 98 05/31/20 21:00 122/58 05/31/20 20:00 127/69 05/31/20 20:00 98.5 69 15 132/76 (94) 92 05/31/20 20:00 40 05/31/20 20:00 Mechanical Ventilator 05/31/20 20:00 74 05/31/20 19:05 129/73 05/31/20 19:02 81 13 40 05/31/20 19:00 71 15 129/73 (91) 99 05/31/20 18:00 116/61 05/31/20 18:00 80 18 103/54 (70) 94 05/31/20 16:45 72 14 116/63 (80) 98 05/31/20 16:30 79 12 121/70 (87) 96 05/31/20 16:15 109 17 128/67 (87) 97 05/31/20 16:00 40 05/31/20 16:00 98.9 98 15 113/67 (82) 93 05/31/20 16:00 79 05/31/20 16:00 Mechanical Ventilator 05/31/20 15:57 149/79 05/31/20 15:34 94/46 05/31/20 15:30 50 14 96/48 (64) 97 05/31/20 15:21 101/50 05/31/20 15:15 56 14 100/62 (75) 94 05/31/20 15:07 98 13 40 05/31/20 15:00 55 13 100/54 (69) 98 05/31/20 14:30 55 15 130/77 (94) 100 05/31/20 14:15 60 15 114/62 (79) 99 05/31/20 14:00 64 16 122/66 (84) 98 05/31/20 13:45 99.9 05/31/20 13:15 79 16 131/62 (85) 99 05/31/20 13:00 131/62 05/31/20 13:00 75 17 114/64 (81) 88 05/31/20 12:47 76 15 115/71 (86) 99 05/31/20 12:30 75 16 123/63 (83) 100 05/31/20 12:00 Mechanical Ventilator 05/31/20 12:00 123/63 05/31/20 12:00 100.6 70 15 118/94 (102) 99 05/31/20 12:00 40 05/31/20 12:00 86 05/31/20 11:11 66 14 40 05/31/20 11:00 111/58 05/31/20 11:00 58 16 115/55 (75) 98 Intake and Output 05/31/20 06/01/20 19:00 07:00 Intake Total 1674.375 ml 1477.125 ml Output Total 1125 ml 2265 ml Balance 549.375 ml -787.875 ml Free Water 200 ml IV Total 864.375 ml 1037.125 ml Tube Feeding 720 ml 240 ml Other 90 ml Output Urine Total 1125 ml 2265 ml # Bowel Movements 1 Laboratory Tests 05/31/20 12:41: POC Whole Blood Glucose 138H 05/31/20 16:00: Urine Color Pale yellow, Urine Appearance Clear, Urine pH 8, Urine Specific [place] 1.010, Urine Protein 2+H, Urine Glucose (UA) Negative, Urine Ketones Negative, Urine Blood 2+H, Urine Nitrite Negative, Urine Bilirubin Negative, Urine Urobilinogen Normal, Urine Leukocyte Esterase 1+H, Urine RBC 5-10H, Urine WBC 10-15H, Urine Squamous Epithelial Cells ModerateH, Urine Bacteria ModerateH, Urine Yeast ModerateH 05/31/20 18:30: POC Whole Blood Glucose 125H 06/01/20 04:50: White Blood Count 4.3L, Red Blood Count 2.96L, Hemoglobin 9.1L, Hematocrit 27.0L , Mean Corpuscular Volume 91, Mean Corpuscular Hemoglobin 30.7, Mean Corpuscular Hemoglobin Concent 33.7, Red Cell Distribution Width 13.7, Platelet Count 151, Mean Platelet Volume 7.8, Neutrophils (%) (Auto) 81.7H, Lymphocytes (%) (Auto) 10.3L, Monocytes (%) (Auto) 6.5, Eosinophils (%) (Auto) 0.8, Basophils (%) (Auto) 0.7, Prothrombin Time 10.1, Prothromb Time International Ratio 0.9, Activated Partial Thromboplast Time 27, Sodium Level 141, Potassium Level 3.9, Chloride Level 104, Carbon Dioxide Level 32, Anion Gap 5, Blood Urea Nitrogen 19H, Creatinine 0.5L, Estimat Glomerular Filtration Rate > 60, Glucose Level 120H, Calcium Level 9.1, Total Bilirubin 0.4, Aspartate Amino Transf (AST/SGOT) 28, Alanine Aminotransferase (ALT/SGPT) 41, Alkaline Phosphatase 65, Total Protein 5.1L, Albumin 1.6L, Globulin 3.5, Albumin/Globulin Ratio 0.5L Height (Feet): 5 Height (Inches): 5.00 Weight (Pounds): 142 General Appearance: lethargic EENT: normal ENT inspection Neck: supple Cardiovascular: normal rate Respiratory/Chest: decreased breath sounds Abdomen: normal bowel sounds, non tender, soft Extremities: non-tender Assessment/Plan Status: stable Assessment/Plan: 1. History of CVA. 2. Dementia. 3. Dysphagia with G-tube. 4. Cachexia. 5. Diabetes. 6. Pressure ulcers. 7. Hypothyroidism. 8. Legal blindness. 9. Currently COVID positive. GT has trice removed NGTF icu care pending peg/trach today fu labs Jhon Matos MD Jun 01, 2020 10:44
--- NOTE | 2020-06-01 11:02 | General Progress Note ---
Subjective Date patient seen: Jun 01, 2020 Time patient seen: 11:00 ROS Limited/Unobtainable: Yes Allergies: Coded Allergies: DIVALPROEX SODIUM (Verified Allergy, Unknown, 05/14/20) PENICILLINS (Verified Allergy, Unknown, 05/14/20) All Systems: reviewed and negative except above Subjective Non verbal, intubated Objective Last 24 Hour Vital Signs Date Time Temp Pulse Resp B/P (MAP) Pulse Ox O2 Delivery O2 Flow Rate FiO2 06/01/20 10:00 99/56 06/01/20 10:00 75 99/56 (70) 96 06/01/20 09:30 75 12 115/90 (98) 96 06/01/20 09:00 78 12 111/62 (78) 96 06/01/20 08:45 84 13 99/59 (72) 96 06/01/20 08:30 87 16 106/54 (71) 98 06/01/20 08:15 76 13 100/53 (69) 97 06/01/20 08:00 85 06/01/20 08:00 40 06/01/20 08:00 100.0 76 12 106/52 (70) 96 06/01/20 08:00 Mechanical Ventilator 06/01/20 07:00 69 12 117/60 (79) 97 06/01/20 07:00 108/58 06/01/20 06:50 80 14 40 06/01/20 06:30 72 17 06/01/20 06:00 107/56 06/01/20 06:00 68 12 107/56 (73) 97 06/01/20 05:00 69 12 97/52 (67) 97 06/01/20 05:00 97/52 06/01/20 04:00 Mechanical Ventilator 06/01/20 04:00 70 24 100/54 (69) 98 06/01/20 04:00 100/54 06/01/20 04:00 72 06/01/20 04:00 40 06/01/20 03:11 77 14 40 06/01/20 03:00 108/59 06/01/20 03:00 76 13 108/59 (75) 100 06/01/20 02:00 70 14 119/63 (81) 96 06/01/20 02:00 119/63 06/01/20 01:00 73 12 113/55 (74) 100 06/01/20 01:00 112/63 06/01/20 00:15 73 119/63 06/01/20 00:00 120/69 06/01/20 00:00 74 06/01/20 00:00 Mechanical Ventilator 06/01/20 00:00 98.2 75 14 119/72 (88) 100 06/01/20 00:00 40 05/31/20 23:01 72 13 40 05/31/20 23:00 129/67 05/31/20 23:00 76 13 121/67 (85) 99 05/31/20 22:00 75 14 104/58 (73) 96 05/31/20 22:00 120/64 05/31/20 21:00 69 13 122/64 (83) 98 05/31/20 21:00 122/58 05/31/20 20:00 127/69 05/31/20 20:00 98.5 69 15 132/76 (94) 92 05/31/20 20:00 40 05/31/20 20:00 Mechanical Ventilator 05/31/20 20:00 74 05/31/20 19:05 129/73 05/31/20 19:02 81 13 40 05/31/20 19:00 71 15 129/73 (91) 99 05/31/20 18:00 116/61 05/31/20 18:00 80 18 103/54 (70) 94 05/31/20 16:45 72 14 116/63 (80) 98 05/31/20 16:30 79 12 121/70 (87) 96 05/31/20 16:15 109 17 128/67 (87) 97 05/31/20 16:00 40 05/31/20 16:00 98.9 98 15 113/67 (82) 93 05/31/20 16:00 79 05/31/20 16:00 Mechanical Ventilator 05/31/20 15:57 149/79 05/31/20 15:34 94/46 05/31/20 15:30 50 14 96/48 (64) 97 05/31/20 15:21 101/50 05/31/20 15:15 56 14 100/62 (75) 94 05/31/20 15:07 98 13 40 05/31/20 15:00 55 13 100/54 (69) 98 05/31/20 14:30 55 15 130/77 (94) 100 05/31/20 14:15 60 15 114/62 (79) 99 05/31/20 14:00 64 16 122/66 (84) 98 05/31/20 13:45 99.9 05/31/20 13:15 79 16 131/62 (85) 99 05/31/20 13:00 131/62 05/31/20 13:00 75 17 114/64 (81) 88 05/31/20 12:47 76 15 115/71 (86) 99 05/31/20 12:30 75 16 123/63 (83) 100 05/31/20 12:00 Mechanical Ventilator 05/31/20 12:00 123/63 05/31/20 12:00 100.6 70 15 118/94 (102) 99 05/31/20 12:00 40 05/31/20 12:00 86 05/31/20 11:11 66 14 40 Intake and Output 05/31/20 06/01/20 19:00 07:00 Intake Total 1674.375 ml 1477.125 ml Output Total 1125 ml 2265 ml Balance 549.375 ml -787.875 ml Free Water 200 ml IV Total 864.375 ml 1037.125 ml Tube Feeding 720 ml 240 ml Other 90 ml Output Urine Total 1125 ml 2265 ml # Bowel Movements 1 Laboratory Tests 05/31/20 12:41: POC Whole Blood Glucose 138H 05/31/20 16:00: Urine Color Pale yellow, Urine Appearance Clear, Urine pH 8, Urine Specific [place] 1.010, Urine Protein 2+H, Urine Glucose (UA) Negative, Urine Ketones Negative, Urine Blood 2+H, Urine Nitrite Negative, Urine Bilirubin Negative, Urine Urobilinogen Normal, Urine Leukocyte Esterase 1+H, Urine RBC 5-10H, Urine WBC 10-15H, Urine Squamous Epithelial Cells ModerateH, Urine Bacteria ModerateH, Urine Yeast ModerateH 05/31/20 18:30: POC Whole Blood Glucose 125H 06/01/20 04:50: White Blood Count 4.3L, Red Blood Count 2.96L, Hemoglobin 9.1L, Hematocrit 27.0L , Mean Corpuscular Volume 91, Mean Corpuscular Hemoglobin 30.7, Mean Corpuscular Hemoglobin Concent 33.7, Red Cell Distribution Width 13.7, Platelet Count 151, Mean Platelet Volume 7.8, Neutrophils (%) (Auto) 81.7H, Lymphocytes (%) (Auto) 10.3L, Monocytes (%) (Auto) 6.5, Eosinophils (%) (Auto) 0.8, Basophils (%) (Auto) 0.7, Prothrombin Time 10.1, Prothromb Time International Ratio 0.9, Activated Partial Thromboplast Time 27, Sodium Level 141, Potassium Level 3.9, Chloride Level 104, Carbon Dioxide Level 32, Anion Gap 5, Blood Urea Nitrogen 19H, Creatinine 0.5L, Estimat Glomerular Filtration Rate > 60, Glucose Level 120H, Calcium Level 9.1, Total Bilirubin 0.4, Aspartate Amino Transf (AST/SGOT) 28, Alanine Aminotransferase (ALT/SGPT) 41, Alkaline Phosphatase 65, Total Protein 5.1L, Albumin 1.6L, Globulin 3.5, Albumin/Globulin Ratio 0.5L Height (Feet): 5 Height (Inches): 5.00 Weight (Pounds): 142 General Appearance: WD/WN EENT: PERRL/EOMI Neck: non-tender Cardiovascular: normal rate Respiratory/Chest: decreased breath sounds Abdomen: normal bowel sounds Neurologic: supplies packer II-XII grossly normal Assessment/Plan Status: stable Assessment/Plan: 70-year-old female history of dementia, cachexia, dysphasia G-tube dependent feeding presents for evaluation of rapid heart rate and hypotension. # Septic with element of cardiogenic shock Etiology COVID 19 vs UTI vs bacteremia / contaminant and NSTEMI Bcx POSITIVE WITH G+ Cocci s/p vancomycin Sputum Cx 05/25 reviewed today with Pseudomonas. Colonizer and recent completion of 14 day treatment with Meropenem U cx 05/14 Proteus Mirabillis Continue Meropenem 14 days completed Vancomycin stopped stopped Cefepime Dexamethasone 10 day course completed Leukocytosis improved. Monitor clinically for now and OFF antibiotics per ID # Acute respiratory failure Intubated and not ready to wean off. Self extubated 05/27 and re intubated by ED MD successfully. ICU care appreciated Dr. Enriquez following Ventilator management per ICU-pulmonary FiO2 40 % today. T piece. Medically tracheostomy is needed as she is not tolerating wean off. Overall, her quality of life will not improve from prior baseline with advanced dementia. Will need permanent ventilator support via tracheostomy and subacute level of care. Critical care attending, Surgery and GI attendings notified to plan PEG and TRACH as medically indicated. OR time for today is planned. # SVT vs A. Flutter s/p DC x 3 # NSTEMI HR is controlled in the 100 range and tolerating Digoxin Vasopressors in place Levophed at [address] Morillo requested and TTE requested and poor window. Limited due to covid positive Troponin 3.4 now 0.7 EKG 05/17 NSR, stable. # AG metabolic acidosis Ddx lactic acidosis Improved. # Hyperglycemia r/o DKA ABG and Ketones negative Endocrine consult with Dr. Shelley IV insulin gtt stopped and in SQ insulin coverage now # Hypernatremia resolved Improving Monitor BMP # COVID 19 Positive on admission. Original infection > 15 days ago, do not qualify for Revdisimir or plasma On Dexamethasone completed 10 day course Contact and droplet isolation # Dysphagia PEG REMOVED 05/16 Carlo Vargas consulted and appreciate follow up and final plan for PEG replacement PENDING. PEG site with dressing in place and OFF PEG for now. NGT placed and Tube feeds started 05/18 and being tolerated at 45 cc hr Glucerna 1.2 # Severe protein caloric malnutrition with Albumin 1.5 RD follow up # Thrombocytopenia Platelets down from 80 K to 64 K to 66 K ( OFF Heparin ) and improved to normal range. 05/17 dc heparin, use SCD, order US Liver, HIT Ab, HIV negative US legs to r.o dvt per [facility] policy # Newly detected lower extremity DVT HOLD off anticoagulation as tracheostomy is planned for tomorrow. # Hypokalemia Improved # Dementia Baseline # FULL CODE SW follow up to reach out to DPOA and consider change in code status due to high morbidity and risk of inpatient mortality. Paperwork completed for superior court of the [facility] for request of tracheostomy and gastrostomy placement due to medical need on 05/26/20 Bioethic consult requested and spoke with Dr. Hung from ethics and I agree with his assessment that the patient quality of life will NOT IMPROVE with tracheostomy and replacement of PEG. The patient is very limited due to her underlying dementia and now unable to wean off the ventilator. Terminal extubation and DNR is medically recommended and there is NO FAMILY, CONSERVATOR refused to make a decision. Court decision on the matter submitted and PENDING. Due to the medical need for TRACH and PEG, this will be scheduled at this time for today. > 50 min spent in coordination of care and consultation with physicians and RN. Jessica Wade MD Jun 01, 2020 11:02
--- NOTE | 2020-06-01 11:10 | Pulmonology Progress Note ---
Subjective ROS Limited/Unobtainable: Yes Interval Events: Unable to extubtae due to poor mental status Constitutional: Reports: no symptoms HEENT: Repors: no symptoms Respiratory: Reports: no symptoms Cardiovascular: Reports: no symptoms Gastrointestinal/Abdominal: Reports: no symptoms Genitourinary: Reports: no symptoms Allergies: Coded Allergies: DIVALPROEX SODIUM (Verified Allergy, Unknown, 05/14/20) PENICILLINS (Verified Allergy, Unknown, 05/14/20) All Systems: reviewed and negative except above Objective Last 24 Hour Vital Signs Date Time Temp Pulse Resp B/P (MAP) Pulse Ox O2 Delivery O2 Flow Rate FiO2 06/01/20 11:01 74 12 109/63 (78) 100 06/01/20 10:00 99/56 06/01/20 10:00 75 99/56 (70) 96 06/01/20 09:30 75 12 115/90 (98) 96 06/01/20 09:00 78 12 111/62 (78) 96 06/01/20 08:45 84 13 99/59 (72) 96 06/01/20 08:30 87 16 106/54 (71) 98 06/01/20 08:15 76 13 100/53 (69) 97 06/01/20 08:00 85 06/01/20 08:00 40 06/01/20 08:00 100.0 76 12 106/52 (70) 96 06/01/20 08:00 Mechanical Ventilator 06/01/20 07:00 69 12 117/60 (79) 97 06/01/20 07:00 108/58 06/01/20 06:50 80 14 40 06/01/20 06:30 72 17 06/01/20 06:00 107/56 06/01/20 06:00 68 12 107/56 (73) 97 06/01/20 05:00 69 12 97/52 (67) 97 06/01/20 05:00 97/52 06/01/20 04:00 Mechanical Ventilator 06/01/20 04:00 70 24 100/54 (69) 98 06/01/20 04:00 100/54 06/01/20 04:00 72 06/01/20 04:00 40 06/01/20 03:11 77 14 40 06/01/20 03:00 108/59 06/01/20 03:00 76 13 108/59 (75) 100 06/01/20 02:00 70 14 119/63 (81) 96 06/01/20 02:00 119/63 06/01/20 01:00 73 12 113/55 (74) 100 06/01/20 01:00 112/63 06/01/20 00:15 73 119/63 06/01/20 00:00 120/69 06/01/20 00:00 74 06/01/20 00:00 Mechanical Ventilator 06/01/20 00:00 98.2 75 14 119/72 (88) 100 06/01/20 00:00 40 05/31/20 23:01 72 13 40 05/31/20 23:00 129/67 05/31/20 23:00 76 13 121/67 (85) 99 05/31/20 22:00 75 14 104/58 (73) 96 05/31/20 22:00 120/64 05/31/20 21:00 69 13 122/64 (83) 98 05/31/20 21:00 122/58 05/31/20 20:00 127/69 05/31/20 20:00 98.5 69 15 132/76 (94) 92 05/31/20 20:00 40 05/31/20 20:00 Mechanical Ventilator 05/31/20 20:00 74 05/31/20 19:05 129/73 05/31/20 19:02 81 13 40 05/31/20 19:00 71 15 129/73 (91) 99 05/31/20 18:00 116/61 05/31/20 18:00 80 18 103/54 (70) 94 05/31/20 16:45 72 14 116/63 (80) 98 05/31/20 16:30 79 12 121/70 (87) 96 05/31/20 16:15 109 17 128/67 (87) 97 05/31/20 16:00 40 05/31/20 16:00 98.9 98 15 113/67 (82) 93 05/31/20 16:00 79 05/31/20 16:00 Mechanical Ventilator 05/31/20 15:57 149/79 05/31/20 15:34 94/46 05/31/20 15:30 50 14 96/48 (64) 97 05/31/20 15:21 101/50 05/31/20 15:15 56 14 100/62 (75) 94 05/31/20 15:07 98 13 40 05/31/20 15:00 55 13 100/54 (69) 98 05/31/20 14:30 55 15 130/77 (94) 100 05/31/20 14:15 60 15 114/62 (79) 99 05/31/20 14:00 64 16 122/66 (84) 98 05/31/20 13:45 99.9 05/31/20 13:15 79 16 131/62 (85) 99 05/31/20 13:00 131/62 05/31/20 13:00 75 17 114/64 (81) 88 05/31/20 12:47 76 15 115/71 (86) 99 05/31/20 12:30 75 16 123/63 (83) 100 05/31/20 12:00 Mechanical Ventilator 05/31/20 12:00 123/63 05/31/20 12:00 100.6 70 15 118/94 (102) 99 05/31/20 12:00 40 05/31/20 12:00 86 05/31/20 11:11 66 14 40 Intake and Output 05/31/20 06/01/20 19:00 07:00 Intake Total 1674.375 ml 1477.125 ml Output Total 1125 ml 2265 ml Balance 549.375 ml -787.875 ml Free Water 200 ml IV Total 864.375 ml 1037.125 ml Tube Feeding 720 ml 240 ml Other 90 ml Output Urine Total 1125 ml 2265 ml # Bowel Movements 1 General Appearance: no acute distress HEENT: normocephalic Respiratory: chest wall non-tender, lungs clear Cardiovascular: normal peripheral pulses, normal rate Abdomen: normal bowel sounds Laboratory Tests 05/31/20 12:41: POC Whole Blood Glucose 138H 05/31/20 16:00: Urine Color Pale yellow, Urine Appearance Clear, Urine pH 8, Urine Specific [place] 1.010, Urine Protein 2+H, Urine Glucose (UA) Negative, Urine Ketones Negative, Urine Blood 2+H, Urine Nitrite Negative, Urine Bilirubin Negative, Urine Urobilinogen Normal, Urine Leukocyte Esterase 1+H, Urine RBC 5-10H, Urine WBC 10-15H, Urine Squamous Epithelial Cells ModerateH, Urine Bacteria ModerateH, Urine Yeast ModerateH 05/31/20 18:30: POC Whole Blood Glucose 125H 06/01/20 04:50: White Blood Count 4.3L, Red Blood Count 2.96L, Hemoglobin 9.1L, Hematocrit 27.0L , Mean Corpuscular Volume 91, Mean Corpuscular Hemoglobin 30.7, Mean Corpuscular Hemoglobin Concent 33.7, Red Cell Distribution Width 13.7, Platelet Count 151, Mean Platelet Volume 7.8, Neutrophils (%) (Auto) 81.7H, Lymphocytes (%) (Auto) 10.3L, Monocytes (%) (Auto) 6.5, Eosinophils (%) (Auto) 0.8, Basophils (%) (Auto) 0.7, Prothrombin Time 10.1, Prothromb Time International Ratio 0.9, Activated Partial Thromboplast Time 27, Sodium Level 141, Potassium Level 3.9, Chloride Level 104, Carbon Dioxide Level 32, Anion Gap 5, Blood Urea Nitrogen 19H, Creatinine 0.5L, Estimat Glomerular Filtration Rate > 60, Glucose Level 120H, Calcium Level 9.1, Total Bilirubin 0.4, Aspartate Amino Transf (AST/SGOT) 28, Alanine Aminotransferase (ALT/SGPT) 41, Alkaline Phosphatase 65, Total Protein 5.1L, Albumin 1.6L, Globulin 3.5, Albumin/Globulin Ratio 0.5L Current Medications Medications (Trade) Dose Ordered Sig/Morgan Route PRN Reason Start Time Stop Time Status Last Admin Dose Admin Acetaminophen (Tylenol) 650 mg Q4H PRN GT Temp >100.5 05/16/20 06:15 06/15/20 06:14 05/31/20 13:15 Acetaminophen (Tylenol) 650 mg Q4H PRN RECTAL Temp >100.5 05/16/20 19:45 06/15/20 19:44 05/17/20 18:30 Atropine Sulfate (Atropine 0.4mg/ ml) 0.4 mg Q2HR PRN IVP HR <45 05/29/20 21:30 06/28/20 19:24 05/30/20 22:39 Chlorhexidine Gluconate (Lilliam-Hex 2%) 1 applic DAILY@2000 TOPIC 05/15/20 20:00 08/13/20 19:59 05/31/20 20:05 Dextrose (Dextrose 50%) 25 ml Q30M PRN IV Hypoglycemia 05/22/20 00:00 08/20/20 00:00 Dextrose (Dextrose 50%) 50 ml Q30M PRN IV Hypoglycemia 05/22/20 00:00 08/20/20 00:00 Dopamine HCl/ Dextrose 250 ml @ 0 mls/hr Q24H IV 05/31/20 15:15 06/03/20 15:03 05/31/20 15:21 Insulin Aspart (NovoLOG) EVERY 6 HOURS SUBQ 05/22/20 06:00 08/20/20 05:59 05/27/20 05:57 Midodrine (Pro-Amatine) 10 mg TID ORAL 05/23/20 09:00 08/21/20 08:59 06/01/20 09:04 Pantoprazole (Protonix) 40 mg DAILY IV 05/15/20 09:00 06/14/20 08:59 06/01/20 09:04 Phenylephrine HCl 100 mg/Dextrose 250 ml @ 0 mls/hr Q24H IV 05/15/20 00:15 06/03/20 23:59 05/15/20 13:28 Sodium Chloride 1,000 ml @ 75 mls/hr [id number] IV 05/15/20 06:45 06/14/20 06:44 05/31/20 23:28 Vasopressin 100 units/Sodium Chloride 100 ml @ 0 mls/hr Q24H IV 05/15/20 00:15 06/03/20 23:59 Zinc Oxide (Zinc Oxide) 1 applic TIDPRN PRN TOPIC Abdominal cramps 05/20/20 13:00 08/18/20 12:59 Assessment/Plan Assessment/Plan IMPRESSION: 1. Acute respiratory failure. 2. Diabetes mellitus with hyperglycemia. 3. Septic shock. 4. Chronic G-tube. 5. Decubitus. 6. History of CHF. DISCUSSION: Continue fluids and antibiotics. Pressors prn Now on T piece On 40% FiO2 DVT and GI prophylaxis. Respiratory precautions due to COVID-[address] Wade. I will follow carefully. Decadron continuing Mental status better however unsafe to extubate Will not be able to maintain airway Recommend trach Needs new PEG Richard James Omar Syed MD Jun 01, 2020 11:10
--- NOTE | 2020-06-01 11:57 | NUR ---
NURSE NOTES: MD SMITH HERE TO SEE PT. WAS INFORMED TRACH AND PEG SCHEDULED FOR TODAY. NO NEW ORDERS.
--- NOTE | 2020-06-01 12:58 | NUR ---
NURSE NOTES: pt repositioned, oral care provided. ax temp f/u 98.9. bellamy draining. accu chk 93, pt npo for procedure.
[2020-06-01] MEDS ORDERED: 1/2 NS 1000ml IV ONE (13:30)
[2020-06-01] MEDS ORDERED: Lidocaine 1% 10mg/ml/Epi 0.005mg/ml 30ml vial INJ ONE (13:40)
--- NOTE | 2020-06-01 13:59 | NUR ---
NURSE NOTES: MD. PHELPS HERE TO SEE PT. WAS INFORMED DOPAMINE DRIP AT 2.5MCG/KG/MIN. HR 70'S, BP STABLE. SCHEDULED FOR TRACH AND PEG TODAY.
--- NOTE | 2020-06-01 14:47 | Cardiac Electrophysiology PN ---
Assessment/Plan Assessment/Plan 1. Rcm-QA-bnfgazqbr myocardial infarction. Her troponin was 1.258, 1.2, 1.9, 3.4 and the down to 0.7 EKG does not show any acute ST-T wave abnormality and certainly no ST elevation. Due to septic shock, DCCV and Renal failure. Echo had poor windows. 2. PAF with RVR. S/P DCCV 3 times No more fib or accelerated junctional rhythm. Off beta-ramakrishna or calcium-channel ramakrishna as the patient is still on Dopamine 3. S/P Septic shock. On Dopamine, Midodrine and antibiotic 4. Bradycardia requiring Atropine x 3 on 05/30/20. Changed Levophed to Dopamine 5. Severe hypernatremia with sodium of 174, BUN of 131, creatinine 2.7 due to dehydration. Improved 6. Dysphagia, status post PEG placement. GT removed on 05/18 GT replacement today per Dr Matos 7. History of CVA and dementia. 8. Respiratory failure, Tracheostomy by Dr Garcia today pending KIMMY RN Subjective Subjective In ICU in SR with no atrial fib but had bradycardia and received atropine 3 times on 05/31/20 Levophed changed to Dopamine 2.5 mcg/kg/ min. NPO for PEG and Trach today Objective Last 24 Hour Vital Signs Date Time Temp Pulse Resp B/P (MAP) Pulse Ox O2 Delivery O2 Flow Rate FiO2 06/01/20 14:00 81 19 123/64 (83) 99 06/01/20 13:00 73 17 115/55 (75) 96 06/01/20 12:30 72 117/60 (79) 97 06/01/20 12:00 77 06/01/20 12:00 40 06/01/20 12:00 98.9 72 109/62 (78) 97 06/01/20 12:00 Mechanical Ventilator 06/01/20 11:05 74 12 40 06/01/20 11:01 74 12 109/63 (78) 100 06/01/20 10:00 99/56 06/01/20 10:00 75 99/56 (70) 96 06/01/20 09:30 75 12 115/90 (98) 96 06/01/20 09:00 78 12 111/62 (78) 96 06/01/20 08:45 84 13 99/59 (72) 96 06/01/20 08:30 87 16 106/54 (71) 98 06/01/20 08:15 76 13 100/53 (69) 97 06/01/20 08:00 85 06/01/20 08:00 40 06/01/20 08:00 100.0 76 12 106/52 (70) 96 06/01/20 08:00 Mechanical Ventilator 06/01/20 07:00 69 12 117/60 (79) 97 06/01/20 07:00 108/58 06/01/20 06:50 80 14 40 06/01/20 06:30 72 17 06/01/20 06:00 107/56 06/01/20 06:00 68 12 107/56 (73) 97 06/01/20 05:00 69 12 97/52 (67) 97 06/01/20 05:00 97/52 06/01/20 04:00 Mechanical Ventilator 06/01/20 04:00 70 24 100/54 (69) 98 06/01/20 04:00 100/54 06/01/20 04:00 72 06/01/20 04:00 40 06/01/20 03:11 77 14 40 06/01/20 03:00 108/59 06/01/20 03:00 76 13 108/59 (75) 100 06/01/20 02:00 70 14 119/63 (81) 96 06/01/20 02:00 119/63 06/01/20 01:00 73 12 113/55 (74) 100 06/01/20 01:00 112/63 06/01/20 00:15 73 119/63 06/01/20 00:00 120/69 06/01/20 00:00 74 06/01/20 00:00 Mechanical Ventilator 06/01/20 00:00 98.2 75 14 119/72 (88) 100 06/01/20 00:00 40 05/31/20 23:01 72 13 40 05/31/20 23:00 129/67 05/31/20 23:00 76 13 121/67 (85) 99 05/31/20 22:00 75 14 104/58 (73) 96 05/31/20 22:00 120/64 05/31/20 21:00 69 13 122/64 (83) 98 05/31/20 21:00 122/58 05/31/20 20:00 127/69 05/31/20 20:00 98.5 69 15 132/76 (94) 92 05/31/20 20:00 40 05/31/20 20:00 Mechanical Ventilator 05/31/20 20:00 74 05/31/20 19:05 129/73 05/31/20 19:02 81 13 40 05/31/20 19:00 71 15 129/73 (91) 99 05/31/20 18:00 116/61 05/31/20 18:00 80 18 103/54 (70) 94 05/31/20 16:45 72 14 116/63 (80) 98 05/31/20 16:30 79 12 121/70 (87) 96 05/31/20 16:15 109 17 128/67 (87) 97 05/31/20 16:00 40 05/31/20 16:00 98.9 98 15 113/67 (82) 93 05/31/20 16:00 79 05/31/20 16:00 Mechanical Ventilator 05/31/20 15:57 149/79 05/31/20 15:34 94/46 05/31/20 15:30 50 14 96/48 (64) 97 05/31/20 15:21 101/50 05/31/20 15:15 56 14 100/62 (75) 94 05/31/20 15:07 98 13 40 05/31/20 15:00 55 13 100/54 (69) 98 Intake and Output 05/31/20 06/01/20 19:00 07:00 Intake Total 1674.375 ml 1477.125 ml Output Total 1125 ml 2265 ml Balance 549.375 ml -787.875 ml Free Water 200 ml IV Total 864.375 ml 1037.125 ml Tube Feeding 720 ml 240 ml Other 90 ml Output Urine Total 1125 ml 2265 ml # Bowel Movements 1 Laboratory Tests Test 05/31/20 16:00 05/31/20 18:30 06/01/20 04:50 Urine Color Pale yellow Urine Appearance Clear Urine pH 8 (4.5-8.0) Urine Specific [place] 1.010 (1.005-1.035) Urine Protein 2+ (NEGATIVE) H Urine Glucose (UA) Negative (NEGATIVE) Urine Ketones Negative (NEGATIVE) Urine Blood 2+ (NEGATIVE) H Urine Nitrite Negative (NEGATIVE) Urine Bilirubin Negative (NEGATIVE) Urine Urobilinogen Normal MG/DL (0.0-1.0) Urine Leukocyte Esterase 1+ (NEGATIVE) H Urine RBC 5-10 /HPF (0 - 2) H Urine WBC 10-15 /HPF (0 - 2) H Urine Squamous Epithelial Cells Moderate /LPF (NONE/OCC) H Urine Bacteria Moderate /HPF (NONE) H Urine Yeast Moderate /HPF (NONE) H POC Whole Blood Glucose 125 MG/DL (74-106) H White Blood Count 4.3 K/UL (4.8-10.8) L Red Blood Count 2.96 M/UL (4.20-5.40) L Hemoglobin 9.1 G/DL (12.0-16.0) L Hematocrit 27.0 % (37.0-47.0) L Mean Corpuscular Volume 91 FL (80-99) Mean Corpuscular Hemoglobin 30.7 PG (27.0-31.0) Mean Corpuscular Hemoglobin Concent 33.7 G/DL (32.0-36.0) Red Cell Distribution Width 13.7 % (11.6-14.8) Platelet Count 151 K/UL (150-450) Mean Platelet Volume 7.8 FL (6.5-10.1) Neutrophils (%) (Auto) 81.7 % (45.0-75.0) H Lymphocytes (%) (Auto) 10.3 % (20.0-45.0) L Monocytes (%) (Auto) 6.5 % (1.0-10.0) Eosinophils (%) (Auto) 0.8 % (0.0-3.0) Basophils (%) (Auto) 0.7 % (0.0-2.0) Prothrombin Time 10.1 SEC (9.30-11.50) Prothromb Time International Ratio 0.9 (0.9-1.1) Activated Partial Thromboplast Time 27 SEC (23-33) Sodium Level 141 MMOL/L (136-145) Potassium Level 3.9 MMOL/L (3.5-5.1) Chloride Level 104 MMOL/L (98-107) Carbon Dioxide Level 32 MMOL/L (21-32) Anion Gap 5 mmol/L (5-15) Blood Urea Nitrogen 19 mg/dL (7-18) H Creatinine 0.5 MG/DL (0.55-1.30) L Estimat Glomerular Filtration Rate > 60 mL/min (>60) Glucose Level 120 MG/DL (74-106) H Calcium Level 9.1 MG/DL (8.5-10.1) Total Bilirubin 0.4 MG/DL (0.2-1.0) Aspartate Amino Transf (AST/SGOT) 28 U/L (15-37) Alanine Aminotransferase (ALT/SGPT) 41 U/L (12-78) Alkaline Phosphatase 65 U/L (46-116) Total Protein 5.1 G/DL (6.4-8.2) L Albumin 1.6 G/DL (3.4-5.0) L Globulin 3.5 g/dL Albumin/Globulin Ratio 0.5 (1.0-2.7) L Objective HEAD AND NECK: No JVD. Orally intubated. NGT LUNGS: Coarse rhonchi. CARDIOVASCULAR: Shows regular S1 and S2 with no gallop. ABDOMEN: Soft. G-tube site is covered. EXTREMITIES: Show no pitting edema. Norman Morillo MD Jun 01, 2020 14:47
[2020-06-01] MEDS ORDERED: NS Irrig 1000ml IRRIG ONE ×2 (14:55→15:08)
--- NOTE | 2020-06-01 14:55 | NUR ---
NURSE NOTES: PT TAKEN TO [facility].R. REPORT GIVEN TO Kasi FERREIRA. ALL QUESTIONS ANSWERED.
--- NOTE | 2020-06-01 14:58 | Surgery Progress Note ---
Surgery Progress Note Subjective Additional Comments plan for trach today. i have been asked by GI and medical teams to place PEG as well. after careful evaluation I agree with medical teams that patient would also benefit from feeding tube access. given her condition, Covid status, care plan, goals of care, will place peg at same time of trach to minimize exposure and OR time and limit procedure risks for patient. Objective Last 24 Hour Vital Signs Date Time Temp Pulse Resp B/P (MAP) Pulse Ox O2 Delivery O2 Flow Rate FiO2 06/01/20 14:00 81 19 123/64 (83) 99 06/01/20 13:00 73 17 115/55 (75) 96 06/01/20 12:30 72 117/60 (79) 97 06/01/20 12:00 77 06/01/20 12:00 40 06/01/20 12:00 98.9 72 109/62 (78) 97 06/01/20 12:00 Mechanical Ventilator 06/01/20 11:05 74 12 40 06/01/20 11:01 74 12 109/63 (78) 100 06/01/20 10:00 99/56 06/01/20 10:00 75 99/56 (70) 96 06/01/20 09:30 75 12 115/90 (98) 96 06/01/20 09:00 78 12 111/62 (78) 96 06/01/20 08:45 84 13 99/59 (72) 96 06/01/20 08:30 87 16 106/54 (71) 98 06/01/20 08:15 76 13 100/53 (69) 97 06/01/20 08:00 85 06/01/20 08:00 40 06/01/20 08:00 100.0 76 12 106/52 (70) 96 06/01/20 08:00 Mechanical Ventilator 06/01/20 07:00 69 12 117/60 (79) 97 06/01/20 07:00 108/58 06/01/20 06:50 80 14 40 06/01/20 06:30 72 17 06/01/20 06:00 107/56 06/01/20 06:00 68 12 107/56 (73) 97 06/01/20 05:00 69 12 97/52 (67) 97 06/01/20 05:00 97/52 9/23/20 04:00 Mechanical Ventilator 06/01/20 04:00 70 24 100/54 (69) 98 06/01/20 04:00 100/54 06/01/20 04:00 72 06/01/20 04:00 40 06/01/20 03:11 77 14 40 06/01/20 03:00 108/59 06/01/20 03:00 76 13 108/59 (75) 100 06/01/20 02:00 70 14 119/63 (81) 96 06/01/20 02:00 119/63 06/01/20 01:00 73 12 113/55 (74) 100 06/01/20 01:00 112/63 06/01/20 00:15 73 119/63 06/01/20 00:00 120/69 06/01/20 00:00 74 06/01/20 00:00 Mechanical Ventilator 06/01/20 00:00 98.2 75 14 119/72 (88) 100 06/01/20 00:00 40 05/31/20 23:01 72 13 40 05/31/20 23:00 129/67 05/31/20 23:00 76 13 121/67 (85) 99 05/31/20 22:00 75 14 104/58 (73) 96 05/31/20 22:00 120/64 05/31/20 21:00 69 13 122/64 (83) 98 05/31/20 21:00 122/58 05/31/20 20:00 127/69 05/31/20 20:00 98.5 69 15 132/76 (94) 92 05/31/20 20:00 40 05/31/20 20:00 Mechanical Ventilator 05/31/20 20:00 74 05/31/20 19:05 129/73 05/31/20 19:02 81 13 40 05/31/20 19:00 71 15 129/73 (91) 99 05/31/20 18:00 116/61 05/31/20 18:00 80 18 103/54 (70) 94 05/31/20 16:45 72 14 116/63 (80) 98 05/31/20 16:30 79 12 121/70 (87) 96 05/31/20 16:15 109 17 128/67 (87) 97 05/31/20 16:00 40 05/31/20 16:00 98.9 98 15 113/67 (82) 93 05/31/20 16:00 79 05/31/20 16:00 Mechanical Ventilator 05/31/20 15:57 149/79 05/31/20 15:34 94/46 05/31/20 15:30 50 14 96/48 (64) 97 05/31/20 15:21 101/50 05/31/20 15:15 56 14 100/62 (75) 94 05/31/20 15:07 98 13 40 05/31/20 15:00 55 13 100/54 (69) 98 I&O Intake and Output 05/31/20 06/01/20 19:00 07:00 Intake Total 1674.375 ml 1477.125 ml Output Total 1125 ml 2265 ml Balance 549.375 ml -787.875 ml Free Water 200 ml IV Total 864.375 ml 1037.125 ml Tube Feeding 720 ml 240 ml Other 90 ml Output Urine Total 1125 ml 2265 ml # Bowel Movements 1 Laboratory Tests Test 05/31/20 16:00 05/31/20 18:30 06/01/20 04:50 Urine Color Pale yellow Urine Appearance Clear Urine pH 8 (4.5-8.0) Urine Specific [place] 1.010 (1.005-1.035) Urine Protein 2+ (NEGATIVE) H Urine Glucose (UA) Negative (NEGATIVE) Urine Ketones Negative (NEGATIVE) Urine Blood 2+ (NEGATIVE) H Urine Nitrite Negative (NEGATIVE) Urine Bilirubin Negative (NEGATIVE) Urine Urobilinogen Normal MG/DL (0.0-1.0) Urine Leukocyte Esterase 1+ (NEGATIVE) H Urine RBC 5-10 /HPF (0 - 2) H Urine WBC 10-15 /HPF (0 - 2) H Urine Squamous Epithelial Cells Moderate /LPF (NONE/OCC) H Urine Bacteria Moderate /HPF (NONE) H Urine Yeast Moderate /HPF (NONE) H POC Whole Blood Glucose 125 MG/DL (74-106) H White Blood Count 4.3 K/UL (4.8-10.8) L Red Blood Count 2.96 M/UL (4.20-5.40) L Hemoglobin 9.1 G/DL (12.0-16.0) L Hematocrit 27.0 % (37.0-47.0) L Mean Corpuscular Volume 91 FL (80-99) Mean Corpuscular Hemoglobin 30.7 PG (27.0-31.0) Mean Corpuscular Hemoglobin Concent 33.7 G/DL (32.0-36.0) Red Cell Distribution Width 13.7 % (11.6-14.8) Platelet Count 151 K/UL (150-450) Mean Platelet Volume 7.8 FL (6.5-10.1) Neutrophils (%) (Auto) 81.7 % (45.0-75.0) H Lymphocytes (%) (Auto) 10.3 % (20.0-45.0) L Monocytes (%) (Auto) 6.5 % (1.0-10.0) Eosinophils (%) (Auto) 0.8 % (0.0-3.0) Basophils (%) (Auto) 0.7 % (0.0-2.0) Prothrombin Time 10.1 SEC (9.30-11.50) Prothromb Time International Ratio 0.9 (0.9-1.1) Activated Partial Thromboplast Time 27 SEC (23-33) Sodium Level 141 MMOL/L (136-145) Potassium Level 3.9 MMOL/L (3.5-5.1) Chloride Level 104 MMOL/L (98-107) Carbon Dioxide Level 32 MMOL/L (21-32) Anion Gap 5 mmol/L (5-15) Blood Urea Nitrogen 19 mg/dL (7-18) H Creatinine 0.5 MG/DL (0.55-1.30) L Estimat Glomerular Filtration Rate > 60 mL/min (>60) Glucose Level 120 MG/DL (74-106) H Calcium Level 9.1 MG/DL (8.5-10.1) Total Bilirubin 0.4 MG/DL (0.2-1.0) Aspartate Amino Transf (AST/SGOT) 28 U/L (15-37) Alanine Aminotransferase (ALT/SGPT) 41 U/L (12-78) Alkaline Phosphatase 65 U/L (46-116) Total Protein 5.1 G/DL (6.4-8.2) L Albumin 1.6 G/DL (3.4-5.0) L Globulin 3.5 g/dL Albumin/Globulin Ratio 0.5 (1.0-2.7) L Plan Problems: (1) Hypernatremia (2) Renal failure (3) Respiratory failure (4) Sepsis Assessment & Plan: COVID + leukocytosis anemia electrolytes abnormal on iv fluids renal input appreciated cxr noted abx as per ID will follow with recs Will likely need trach difficult weaning conservatorship working with case management social work to figure out goals of care Interim placement of orogastric tube, also documented on recent abdominal radiograph. Stable satisfactory position of endotracheal tube and right jugular central venous catheter. There is increased pleural fluid and likely left basi lar consolidation/atelectasis. The right lung and pleural space remain clear. Impression: Increasing left pleural fluid and likely basilar consolidation/atelectasis. Interim orogastric intubation DAILY ESTIMATED NEEDS: Needs based on Pulmonary, DM, wounds 66.6kg 25-30 kcals/kg 1741-4284 total kcals 1.25-1.5 g protein/kg 83-100 g total protein 20-25 mL/kg 1406-9012 total fluid mLs NUTRITION DIAGNOSIS: Swallowing difficulty r/t dysphagia as evidenced by h/o CVA, pt is GT dep, currently ICU status, now intubated, off pressor support, GT feeds initiated. CURRENT TF:Glucerna 1.2 @45ml/hr ENTERAL NUTRITION RECOMMENDATIONS: As medically able: GLUCERNA 1.5 goal of 45ml/hr x24 hrs to provide 1080ml, 1620 kcal, 89g pro, 820ml free H2O -> as medically able without aspiration risk start Glucerna 1.5 @low rate 25ml/hr for 6 hrs. Advance as tolerated 10ml/hr q4-6 hrs to goal. - Flush per , HOB over 30 degrees. ---- If not hemodynamically stable, rec trophic feeds of 5-10ml/hr to maintain gut integrity. ADDITIONAL RECOMMENDATIONS: 1) Obtain an accurate calibrated bed scale wt 2) F/up w/ H&P 3) With active TF orders, add JASMYN BID for noted DTPI wounds 4) TF recs as above when off bipap and w/ hemodynamic stability -> Now intubated, off pressors, on GT feeds. he spleen size is normal. The gallbladder contains sludge. No stones. No wall thickening nor pericholecystic fluid. Common bile duct measures 4 mm in diameter. Small amount free fluid is seen adjacent to the liver and spleen Impression: Gallbladder sludge. Negative for dilated bile ducts Normal appearing liver and spleen Patient with respiratory failure intubated on support unable to wean safely. A tracheostomy in this case would be indicated and recommended. Patient is full code but conserved. Given her condition waiting a significant period of time is at high risk for her given the risk for extubation duration of tube and worsening with her ET tube. A trach would be functional manageable for her and recommended. Unfortunately waiting for the time. Would be advisable and discussed with the social workers rn case manager and medical teams. Pulmono logist as well. ICU team as well. We will proceed with tracheostomy in patient's best interest given her CODE STATUS and wishes and care plan. i have been asked by GI and medical teams to place PEG as well. after careful evaluation I agree with medical teams that patient would also benefit from feeding tube access. given her condition, Covid status, care plan, goals of care, will place peg at same time of trach to minimize exposure and OR time and limit procedure risks for patient. (5) Elevated d-dimer (6) COVID-19 Assessment & Plan: ++ (7) Pressure ulcer Assessment & Plan: Pt presented on admission with multiple Pressure injuries.DTPI noted to R Buttocks (L)3.8cm x (W)3.4cm. Base of wound is purpuric,fluctuant with surrounding maroon and indurated borders. DTPI Upper L Buttocks(L)5.5cm x (W)4cm. Base of wound is maroon and indurated. Borders are irregular. Non-Blanchable erythema without induration/fluctuance L lower buttocks(L)4cm x (W)7cm. R and L heels are soft but blanchable. Erosion noted at peristomal GT site. Site is erythematous and excoriated. Small amt. sanguineous exudate. Tx.Plan: Apply Moisture Barrier Paste to Sacrum, R and L Buttocks. Cover each area with Optifoam drsg. Change every 3 days and prn. Apply Moisture Barrier Paste to R and L Ischial tuberosities with each incontinence care. Apply Cavilon Skin Barrier to both heels. Cover each heel and malleoli with Optifoam drsg. Change every 7 days and prn. Reposition at least every 2hours or as tolerated. Off-load heels with pillow. APM/DARIN Mattress overlay. Apply Zinc Oxide Paste TID to GT site. Leave open to Air. (8) Dementia (9) CVA (cerebral vascular accident) (10) T2DM (type 2 diabetes mellitus) (11) Gastrostomy present (12) COVID-19 (13) Rapid atrial fibrillation Paul Garcia Jun 01, 2020 14:58
[2020-06-01] MEDS: DOPamine 400mg/250ml 250 ML IV SCH ×2 (15:15→20:07)
--- NOTE | 2020-06-01 15:31 | NUR ---
NURSE NOTES: PT SURGERY COMPLETED. R.T AND O.R TECH TRANSPORTING PT BACK TO UNIT.
--- NOTE | 2020-06-01 15:40 | NUR ---
NURSE NOTES: PT BACK ON UNIT. CONNECTED TO MONITOR. BP LOW INCREASED DOPAMINE TO 4.5MCG/KG/MIN. AX 98.1.
--- NOTE | 2020-06-01 15:52 | Immediate Post-Op Evaluation ---
Immediate Post-Op Evalulation Immediate Post-Op Evalulation Procedure: PEG/Trach placement Date of Evaluation: Jun 01, 2020 Time of Evaluation: 15:52 IV Fluids: 100 Blood Pressure Systolic: 101 Blood Pressure Diastolic: 60 Pulse Rate: 84 Respiratory Rate: 12 O2 Sat by Pulse Oximetry: 99 Nausea: No Vomiting: No Patient Status: ventilated - AC 40%500 12/5 Hydration Status: adequate Drug: NONE Gloria Bowser CRNA Jun 01, 2020 15:52
--- NOTE | 2020-06-01 16:09 | NUR ---
CASE MANAGEMENT:REVIEW 06/01/20 SI; SEPSIS. COVID (+) . NOW BACK ON MECHANICAL VENT 98.9 72 17 109/62 97% ON MECHANICAL VENT FiO2 40% H/H 9.10/05 BUN/CREAT 19/0.5 ALB 1.6 IS; IVF NS BOLUS X1 IV ATROPINE SULFATE Q2HR/PRN IVF NS @ 75 ML/HR PRO-AMATINE PO TID IV LEVOPHED PROTOCOL ~TITRATING IV DOPAMINE ~TITRATING IN SURGERY NOW~TRACHEOSTOMY ICU STATUS DCP: [facility] CONV WHEN STABLE PLAN: SURGERY
--- NOTE | 2020-06-01 16:10 | NUR ---
NURSE NOTES: LATE ENTRY: ORDER FOR EKG, EKG DONE AND IN CHART. SPOKE WITH MD. DELACRUZ REGARDING RESULTS. SR WITH PAC IN PATTERN BIGEMINY. PROLONGED QT, ST WAVE ABNORMALITY CONSIDER INFEROLATERAL ISCHEMIA. NO NEW ORDERS.
--- NOTE | 2020-06-01 16:10 | Brief Operative Note ---
Immediate Post Operative Note Operative Note Pre-op Diagnosis: respiratory insufficiency Procedure: trach egd with peg Post-op Diagnosis: same as pre-op Surgeon: mesfin Anesthesiologist: marylou Anesthesia: general, local Specimen: none Complications: none Condition: stable Fluids: see Estimated Blood Loss: minimal Drains: none Implant(s) used?: No Paul Garcia Jun 01, 2020 16:10
--- NOTE | 2020-06-01 17:20 | Infectious Diseases Prog Note ---
Assessment/Plan 70 yo female with PMHx of Dementia, DM, CVA ( S/P PEG), COVID 19 infection and pressure ulcers. Septic Shock-combination cardiogenic and septic; -back on pressors, decreasing Gram positive bacteremia- contaminant; recurrent -05/31 Bcx 1/2 Gram variable rods -05/14 Bcx 1/4 S. haemolyticus; 05/17 Bcx Neg UTI, sp rx UA (+); ucx 10-20k P. mirabilis (S Ceftriaxone, Cefepime) PNA, superimposed bacterial, sp rx Recent COVID19 pna- now repeat neg x2 -05/27 CXR: Previously seen left lung atelectasis has nearly completely resolved. Retrocardiac atelectasis without or with some component of consolidation. Low lung volumes with bronchovascular crowding. -05/26 CXR: Complete opacification of the left hemithorax with mediastinal shift to the left likely due to complete atelectasis of the left lung perhaps from mucous plugging. rapid COVID PCR neg -05/25 sp cx MDR PsA (I Ceftazidime, Colistin, Polymixin B); suspect colonizer SARS-COV2 neg -05/24 SARS-COV2 pCR inconclusive -05/23 CXR: Worsening aeration with increasing hazy opacification of the left lung base which may related to increased layering pleural effusion and adjacent atelectasis/consolidation. -05/19 CXR: Increasing left pleural fluid and likely basilar consolidation/atelectasis. Interim orogastric intubation 05/16 CXR: Retrocardiac density may represent atelectasis versus infiltrate. CXR 05/14/20 showed Retrocardiac atelectasis/infiltrate with Pulmonary venous congestion. sp cx MDR E.coli (S Cefepime, Meropenem, Zosyn) Hx of COVID 19 - Bacteria secondary infection? Asp PNA? 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 Negative for dilated bile ducts. Normal appearing liver and spleen. Trace ascites sp trach/peg 06/01 Dementia DM Hx CVA ( S/P PEG) pressure ulcers PLAN -Start empiric IV Vancomycin for bacteremia - 05/27 SP Meropenem #11 -05/24 SP Decadron #11 -05/19 SP IV Vancomcyin #6 -05/17 SP Cefepime #4 - f/u Cultures - Monitor CBC and Temps -repeat covid neg x2 -f/u repeat cultures Thank you for consulting [facility]. Will continue to follow along with you. Discussed with RN. Subjective Allergies: Coded Allergies: DIVALPROEX SODIUM (Verified Allergy, Unknown, 05/14/20) PENICILLINS (Verified Allergy, Unknown, 05/14/20) Tm 100 bacteremic sp trach and peg today Objective Last 24 Hour Vital Signs Date Time Temp Pulse Resp B/P (MAP) Pulse Ox O2 Delivery O2 Flow Rate FiO2 06/01/20 15:52 84 12 99 06/01/20 15:44 86 13 40 06/01/20 14:00 81 19 123/64 (83) 99 06/01/20 13:00 73 17 115/55 (75) 96 06/01/20 12:30 72 117/60 (79) 97 06/01/20 12:00 77 06/01/20 12:00 40 06/01/20 12:00 98.9 72 109/62 (78) 97 06/01/20 12:00 Mechanical Ventilator 06/01/20 11:05 74 12 40 06/01/20 11:01 74 12 109/63 (78) 100 06/01/20 10:00 99/56 06/01/20 10:00 75 99/56 (70) 96 06/01/20 09:30 75 12 115/90 (98) 96 06/01/20 09:00 78 12 111/62 (78) 96 06/01/20 08:45 84 13 99/59 (72) 96 06/01/20 08:30 87 16 106/54 (71) 98 06/01/20 08:15 76 13 100/53 (69) 97 06/01/20 08:00 85 06/01/20 08:00 40 06/01/20 08:00 100.0 76 12 106/52 (70) 96 06/01/20 08:00 Mechanical Ventilator 06/01/20 07:00 69 12 117/60 (79) 97 06/01/20 07:00 108/58 06/01/20 06:50 80 14 40 06/01/20 06:30 72 17 06/01/20 06:00 107/56 06/01/20 06:00 68 12 107/56 (73) 97 06/01/20 05:00 69 12 97/52 (67) 97 06/01/20 05:00 97/52 06/01/20 04:00 Mechanical Ventilator 06/01/20 04:00 70 24 100/54 (69) 98 06/01/20 04:00 100/54 06/01/20 04:00 72 06/01/20 04:00 40 06/01/20 03:11 77 14 40 06/01/20 03:00 108/59 06/01/20 03:00 76 13 108/59 (75) 100 06/01/20 02:00 70 14 119/63 (81) 96 06/01/20 02:00 119/63 06/01/20 01:00 73 12 113/55 (74) 100 06/01/20 01:00 112/63 06/01/20 00:15 73 119/63 06/01/20 00:00 120/69 06/01/20 00:00 74 06/01/20 00:00 Mechanical Ventilator 06/01/20 00:00 98.2 75 14 119/72 (88) 100 06/01/20 00:00 40 05/31/20 23:01 72 13 40 05/31/20 23:00 129/67 05/31/20 23:00 76 13 121/67 (85) 99 05/31/20 22:00 75 14 104/58 (73) 96 05/31/20 22:00 120/64 05/31/20 21:00 69 13 122/64 (83) 98 05/31/20 21:00 122/58 05/31/20 20:00 127/69 05/31/20 20:00 98.5 69 15 132/76 (94) 92 05/31/20 20:00 40 05/31/20 20:00 Mechanical Ventilator 05/31/20 20:00 74 05/31/20 19:05 129/73 05/31/20 19:02 81 13 40 05/31/20 19:00 71 15 129/73 (91) 99 05/31/20 18:00 116/61 05/31/20 18:00 80 18 103/54 (70) 94 05/31/20 16:45 72 14 116/63 (80) 98 Height (Feet): 5 Height (Inches): 5.00 Weight (Pounds): 142 GEN: On Vent HEENT: NCAT, MMM, Intubated Pulm: Equal rise and fall B/L ABD: Soft, ND, PEG Neuro: Not following, Intubated Microbiology Date/Time Source Procedure Growth Status 05/31/20 14:00 Blood Blood Culture - Preliminary Resulted Laboratory Tests Test 05/31/20 18:30 06/01/20 04:50 POC Whole Blood Glucose 125 MG/DL (74-106) H White Blood Count 4.3 K/UL (4.8-10.8) L Red Blood Count 2.96 M/UL (4.20-5.40) L Hemoglobin 9.1 G/DL (12.0-16.0) L Hematocrit 27.0 % (37.0-47.0) L Mean Corpuscular Volume 91 FL (80-99) Mean Corpuscular Hemoglobin 30.7 PG (27.0-31.0) Mean Corpuscular Hemoglobin Concent 33.7 G/DL (32.0-36.0) Red Cell Distribution Width 13.7 % (11.6-14.8) Platelet Count 151 K/UL (150-450) Mean Platelet Volume 7.8 FL (6.5-10.1) Neutrophils (%) (Auto) 81.7 % (45.0-75.0) H Lymphocytes (%) (Auto) 10.3 % (20.0-45.0) L Monocytes (%) (Auto) 6.5 % (1.0-10.0) Eosinophils (%) (Auto) 0.8 % (0.0-3.0) Basophils (%) (Auto) 0.7 % (0.0-2.0) Prothrombin Time 10.1 SEC (9.30-11.50) Prothromb Time International Ratio 0.9 (0.9-1.1) Activated Partial Thromboplast Time 27 SEC (23-33) Sodium Level 141 MMOL/L (136-145) Potassium Level 3.9 MMOL/L (3.5-5.1) Chloride Level 104 MMOL/L (98-107) Carbon Dioxide Level 32 MMOL/L (21-32) Anion Gap 5 mmol/L (5-15) Blood Urea Nitrogen 19 mg/dL (7-18) H Creatinine 0.5 MG/DL (0.55-1.30) L Estimat Glomerular Filtration Rate > 60 mL/min (>60) Glucose Level 120 MG/DL (74-106) H Calcium Level 9.1 MG/DL (8.5-10.1) Total Bilirubin 0.4 MG/DL (0.2-1.0) Aspartate Amino Transf (AST/SGOT) 28 U/L (15-37) Alanine Aminotransferase (ALT/SGPT) 41 U/L (12-78) Alkaline Phosphatase 65 U/L (46-116) Total Protein 5.1 G/DL (6.4-8.2) L Albumin 1.6 G/DL (3.4-5.0) L Globulin 3.5 g/dL Albumin/Globulin Ratio 0.5 (1.0-2.7) L Current Medications Medications (Trade) Dose Ordered Sig/Morgan Route PRN Reason Start Time Stop Time Status Last Admin Dose Admin Acetaminophen (Tylenol) 650 mg Q4H PRN GT Temp >100.5 05/16/20 06:15 06/15/20 06:14 05/31/20 13:15 Acetaminophen (Tylenol) 650 mg Q4H PRN RECTAL Temp >100.5 05/16/20 19:45 06/15/20 19:44 05/17/20 18:30 Atropine Sulfate (Atropine 0.4mg/ ml) 0.4 mg Q2HR PRN IVP HR <45 05/29/20 21:30 06/28/20 19:24 05/30/20 22:39 Chlorhexidine Gluconate (Lilliam-Hex 2%) 1 applic DAILY@1999 TOPIC 05/15/20 20:00 08/13/20 19:59 05/31/20 20:05 Dextrose (Dextrose 50%) 25 ml Q30M PRN IV Hypoglycemia 05/22/20 00:00 08/20/20 00:00 Dextrose (Dextrose 50%) 50 ml Q30M PRN IV Hypoglycemia 05/22/20 00:00 08/20/20 00:00 Dopamine HCl/ Dextrose 250 ml @ 0 mls/hr Q24H IV 05/31/20 15:15 06/03/20 15:03 05/31/20 15:21 Insulin Aspart (NovoLOG) EVERY 6 HOURS SUBQ 05/22/20 06:00 08/20/20 05:59 05/27/20 05:57 Midodrine (Pro-Amatine) 10 mg TID ORAL 05/23/20 09:00 08/21/20 08:59 06/01/20 12:57 Pantoprazole (Protonix) 40 mg DAILY IV 05/15/20 09:00 06/14/20 08:59 06/01/20 09:04 Phenylephrine HCl 100 mg/Dextrose 250 ml @ 0 mls/hr Q24H IV 05/15/20 00:15 06/03/20 23:59 05/15/20 13:28 Sodium Chloride 1,000 ml @ 75 mls/hr [id number] IV 05/15/20 06:45 06/14/20 06:44 06/01/20 13:30 Vasopressin 100 units/Sodium Chloride 100 ml @ 0 mls/hr Q24H IV 05/15/20 00:15 06/03/20 23:59 Zinc Oxide (Zinc Oxide) 1 applic TIDPRN PRN TOPIC Abdominal cramps 05/20/20 13:00 08/18/20 12:59 Yomaira Terry M.D. Jun 01, 2020 17:20
--- NOTE | 2020-06-01 17:44 | Operative Note - Dictated ---
DATE OF OPERATION: 06/01/2020 PREOPERATIVE DIAGNOSES: 1. Respiratory insufficiency, requiring prolonged ventilator support. 2. Failure to thrive, malnutrition, dysphagia, feeding tube indicated and recommended. 3. COVID positive. POSTOPERATIVE DIAGNOSES: 1. Respiratory insufficiency, requiring prolonged ventilator support. 2. Failure to thrive, malnutrition, dysphagia, feeding tube indicated and recommended. 3. COVID positive. OPERATION PERFORMED: 1. Tracheostomy. 2. EGD with percutaneous gastrostomy tube insertion, PEG. ATTENDING SURGEON: Paul Garcia M.D. PAPER MAKER: None. ANESTHESIOLOGIST: Gloria Bowser C.R.N.A. ESTIMATED BLOOD LOSS: Minimal. IV FLUIDS: Please see anesthesia records. COMPLICATIONS: None. DRAINS: None. SPONGE AND NEEDLE COUNT: Correct x2. WOUND CLASSIFICATION: Class 3. IMPLANTS: A 24-[place]izen [place] PEG tube and 8-[place] Shiley tracheostomy. ANTIBIOTICS: The patient is on scheduled IV antibiotics. INDICATIONS FOR THE PROCEDURE: This is a very unfortunate 70-year-old female with multiple medical comorbidities, who has been in the intensive care unit at [facility] for some time now, intubated on ventilatory support, unable to wean safely. Multiple attempts were made at weaning the ventilator and proceeding towards extubation, but unfortunately given the patient's condition, medical status, mental status, and respiratory, she has not been able to safely wean for extubation. Therefore, given this, tracheostomy was indicated and recommended. Furthermore, the patient has had a PEG in the past, was identified clearly on her abdominal stoma site. She has had feeding tube access required, which has since unfortunately been removed. The patient is being fed through an NG tube, and for some rationale a feeding tube is indicated and recommended. Unfortunately, unable to place a new feeding tube through the prior stoma site. Given the patient's code status is full, her overall care plan, goals of care, and the potential meaningful recovery, also with history of a percutaneous tube already in place with alternate nutrition, evaluation was performed by the medical team, intensivists, the patient's primary care physician, and the patient's primary care physician and intensivists have strongly felt the patient requires continuation of care as medically necessary, and in such situation I have agreed to replace the patient's prior PEG tube via EGD and place tracheostomy to allow for a potential recovery to her baseline status. OPERATIVE NOTE: The patient was taken to the operating room, placed on the operating table in the supine position with bilateral arms down. All bony prominences were well padded. SCDs were placed. Preoperative time-out was taken identifying the patient, procedure, operative staff, and surgical staff. General anesthesia was induced. The patient already had a G-tube in place. A bite block was placed. The endoscope was inserted through the oropharynx into the esophagus without complication down the esophagus into the gastric lumen. Gastric lumen was insufflated and no significant abnormality was identified. The prior stoma site was evaluated and the similar finding could be found in the gastric lumen, but was sealed off within the lumen. Transillumination was easily identified using a finder needle, and sheath needle was inserted and sheath was left in place. The wire was placed into the gastric lumen and brought out through the endoscope through a catch. Following this, the PEG tube was fixed to the wire and pull-through method was used and the tube was brought in through the prior old stoma site without complication. Bolster was placed, followed by dressings. The patient tolerated this portion of the procedure well. Following this, a shoulder roll was placed. The neck was hyperextended. The neck was prepped and draped in the standard surgical fashion. Local anesthetic was infiltrated. A small skin incision was made and carried down through the subcutaneous tissue, platysma to the median raphe. The median raphe was identified and divided and strap muscles were retracted laterally. The first and second tracheal rings were clearly identified and cleared off and dissected out. A trach hook was placed and a small window was made in between the first and second tracheal rings. With assistance of the anesthesiologist, the ET tube was withdrawn to the level just above the window and an 8-[place]izen [place] Shiley tracheostomy was inserted without complication. The balloon was insufflated. The patient was ventilated through the tracheostomy with good end-tidal CO2 and volumes. The skin on the lateral aspects were reapproximated followed by a trach tie and dressings. The patient tolerated the procedure well and was taken directly to the intensive care unit. Paul Garcia M.D. DR: SABA JOB#: [id number] CC:
--- NOTE | 2020-06-01 18:14 | NUR ---
NURSE NOTES: ACCU CHK 102, NO COVERAFGE. PT NPO. DOPAMINE 2.5MCH/KG/MIN. VS: 90, 127/71, 96%, 17. FI02 BACK DOWN TO 40%
--- NOTE | 2020-06-01 19:05 | NUR ---
NURSE NOTES: INFORMED MD. PHELPS REGARDING EKG RESULTS. CALLED AND LEFT MESSAGE FOR MD. MILLER REGARDING TUBE FEEDING OR DEXTROSE IV FLUID. AWAITING CALL BACK.
--- NOTE | 2020-06-01 19:19 | NUR ---
HAND-OFF: Report given to PAOLA Duff INFORMED MD CALL F/U FEEDING OR FLUID DEXTROSE
--- NOTE | 2020-06-01 19:30 | NUR ---
NURSE NOTES: Received report from SARA Rodriguez. Patient in bed sleeping, no s/s of acute distress noted. S/P trach placement Shiley 8 AC 12,TV 500, fi02 40% satting 100%.trach dressing dry and intact. HOB elevated. Suctioned patient orally. S/P GT placement, NPO for now. GT Dressing intact. Arauz intact draining with pale color urine. no s/s of hypo/hyperglycemia. Bilateral wrist restraint intact. on P200 mattress for wound management. Contact isolation and airborne precaution maintained and observed. Right IJ TLC infusing Dopamine at 2.5mcg/min and 1/2 NS at 75cc/hr. will continue plan of care.
[2020-06-01] MEDS: Dyna-Hex 2% Top Sol 2oz TOPIC SCH (20:07)
--- NOTE | 2020-06-01 21:30 | NUR ---
NURSE NOTES: Patient in bed awake, no moaning no facial grimaces. Turned and repositioned patient in bed. comfort measure provided. SR on ekg monitor HR . HOB elevated. will continue plan of care.
[2020-06-02] VITALS (65 sets, daily range): BP systolic 72–143; BP diastolic 41–105
--- NOTE | 2020-06-02 | NUR ---
NURSE NOTES: patient blood glucose 111mg/dl. no s/s of acute distress noted. no fever. no diarrhea. no n/v. oral care provided. continue on Dopamine drip at 2.5mcg/kg/min BP92/58. HOB elevated. frequent visual checks continued. will continue plan of care.
[2020-06-02] MEDS: Vasopressin 100 UNITS in NS 95 ML IV SCH (00:15)
[2020-06-02] MEDS: Phenylephrine 100 MG in D5W 240 ML IV SCH (00:15)
--- NOTE | 2020-06-02 02:00 | NUR ---
NURSE NOTES: Bed bath given tolerated well.
--- NOTE | 2020-06-02 04:00 | NUR ---
NURSE NOTES: Patient in bed sleeping, no s/s of acute distress noted. S/P trach placement Shiley 8 AC 12,TV 500, fi02 40% satting 100%trach dressing dry and intact. HOB elevated. Suctioned patient orally. S/P GT placement, NPO for now. GT Dressing intact. Arauz intact draining with pale color urine. no s/s of hypo/hyperglycemia. Bilateral wrist restraint intact. on P200 mattress for wound management. Contact isolation and airborne precaution maintained and observed. Right IJ TLC infusing Dopamine at 2.5mcg/min and 1/2 NS at 75cc/hr. will continue plan of care.
[2020-06-02 05:44] LABS: BASOPHILS % (AUTO) 0.8 % (0.0-2.0); EOSINOPHILS % (AUTO) 1.2 % (0.0-3.0); HEMATOCRIT 27.2 % (37.0-47.0); HEMOGLOBIN 9.3 G/DL (12.0-16.0); LYMPHOCYTES % (AUTO) 11.4 % (20.0-45.0); MEAN CORPUSCULAR VOLUME 90 FL (80-99); MONOCYTES % (AUTO) 7.5 % (1.0-10.0); NEUTROPHILS % (AUTO) 79.1 % (45.0-75.0); PLATELET COUNT 159 K/UL (150-450); RED BLOOD COUNT 3.02 M/UL (4.20-5.40); RED CELL DISTRIBUTION WIDTH 13.3 % (11.6-14.8); WHITE BLOOD COUNT 4.3 K/UL (4.8-10.8)
[2020-06-02] MEDS: NovoLOG Insulin Flexpen SUBQ SCH ×4 (06:00→18:00)
--- NOTE | 2020-06-02 06:00 | NUR ---
NURSE NOTES: Blood glucose 90mg/dl. no s/s of acute distress noted. no s/s of hypo/hyperglycemia. repositioned in bed. on P200 mattress for wound management. will continue plan of care.
[2020-06-02 06:11] LABS: ANION GAP 8 mmol/L (5-15); BLOOD UREA NITROGEN 13 mg/dL (7-18); CALCIUM 9.2 MG/DL (8.5-10.1); CARBON DIOXIDE 28 MMOL/L (21-32); CHLORIDE 104 MMOL/L (98-107); CREATININE 0.5 MG/DL (0.55-1.30); PHOSPHORUS 2.4 MG/DL (2.5-4.9); POTASSIUM 3.1 MMOL/L (3.5-5.1); SODIUM 140 MMOL/L (136-145)
--- NOTE | 2020-06-02 06:30 | General Progress Note ---
Subjective ROS Limited/Unobtainable: Yes Allergies: Coded Allergies: DIVALPROEX SODIUM (Verified Allergy, Unknown, 05/14/20) PENICILLINS (Verified Allergy, Unknown, 05/14/20) Subjective events noted and interval notes reviewed glucose values are stable s/p trach and PEG not on TF Item Value Date Time Bedside Blood Glucose 90 mg/dl 06/02/20 0600 Bedside Blood Glucose 111 mg/dl 06/02/20 0000 Bedside Blood Glucose 102 mg/dl 06/01/20 1800 Bedside Blood Glucose 93 mg/dl 06/01/20 1200 Bedside Blood Glucose 120 mg/dl 06/01/20 0600 Bedside Blood Glucose 130 mg/dl H 06/01/20 0000 Objective Last 24 Hour Vital Signs Date Time Temp Pulse Resp B/P (MAP) Pulse Ox O2 Delivery O2 Flow Rate FiO2 06/02/20 06:00 77 12 102/58 (73) 99 06/02/20 05:00 80 12 115/61 (79) 99 06/02/20 04:00 79 06/02/20 04:00 81 16 112/66 (81) 99 06/02/20 04:00 40 06/02/20 04:00 Mechanical Ventilator 06/02/20 03:26 83 12 40 06/02/20 03:00 97 16 115/72 (86) 99 06/02/20 03:00 115/72 06/02/20 02:30 92 17 109/66 (80) 99 06/02/20 02:00 109/66 06/02/20 02:00 100 18 112/69 (83) 99 06/02/20 01:00 94 15 100/68 (79) 99 06/02/20 01:00 113/77 06/02/20 00:15 73 94/55 06/02/20 00:00 Mechanical Ventilator 06/02/20 00:00 40 06/02/20 00:00 71 06/02/20 00:00 98.4 74 15 107/67 (80) 96 06/02/20 00:00 86/58 06/01/20 23:30 73 14 40 06/01/20 23:00 115/68 06/01/20 23:00 78 16 115/67 (83) 96 06/01/20 22:00 91/55 06/01/20 22:00 72 15 91/63 (72) 94 06/01/20 21:00 109/58 06/01/20 21:00 74 12 109/56 (73) 94 06/01/20 20:07 92/53 06/01/20 20:06 92/53 06/01/20 20:00 Mechanical Ventilator 06/01/20 20:00 98.8 67 12 99/57 (71) 97 06/01/20 20:00 40 06/01/20 20:00 77 06/01/20 20:00 98/64 06/01/20 19:30 65 12 40 06/01/20 19:00 96/54 06/01/20 19:00 71 14 92/53 (66) 98 06/01/20 18:15 97/57 06/01/20 18:00 97/57 06/01/20 18:00 88 14 127/71 (89) 97 06/01/20 17:16 83 16 72/53 (59) 97 06/01/20 17:00 82/52 06/01/20 17:00 86 15 109/63 (78) 80 06/01/20 16:00 98.1 72 17 89/53 (65) 100 06/01/20 16:00 100/60 06/01/20 16:00 100 06/01/20 16:00 70 06/01/20 16:00 Mechanical Ventilator 06/01/20 15:52 84 12 99 06/01/20 15:44 86 13 40 06/01/20 15:30 101/60 06/01/20 14:00 81 19 123/64 (83) 99 06/01/20 14:00 116/62 06/01/20 13:30 106/56 06/01/20 13:00 115/55 06/01/20 13:00 73 17 115/55 (75) 96 06/01/20 12:30 72 117/60 (79) 97 06/01/20 12:00 77 06/01/20 12:00 40 06/01/20 12:00 98.9 72 109/62 (78) 97 06/01/20 12:00 Mechanical Ventilator 06/01/20 12:00 117/60 06/01/20 11:05 74 12 40 06/01/20 11:01 74 12 109/63 (78) 100 06/01/20 11:00 112/61 06/01/20 10:00 99/56 06/01/20 10:00 75 99/56 (70) 96 06/01/20 09:30 75 12 115/90 (98) 96 06/01/20 09:00 78 12 111/62 (78) 96 06/01/20 09:00 111/62 06/01/20 08:45 84 13 99/59 (72) 96 06/01/20 08:30 87 16 106/54 (71) 98 06/01/20 08:15 76 13 100/53 (69) 97 06/01/20 08:00 85 06/01/20 08:00 40 06/01/20 08:00 100.0 76 12 106/52 (70) 96 06/01/20 08:00 106/52 06/01/20 08:00 Mechanical Ventilator 06/01/20 07:00 69 12 117/60 (79) 97 06/01/20 07:00 108/58 06/01/20 06:50 80 14 40 06/01/20 06:30 72 17 Intake and Output 06/01/20 06/02/20 19:00 07:00 Intake Total 1067.250 ml 894.901 ml Output Total 1250 ml 1155 ml Balance -182.750 ml -260.099 ml IV Total 1067.250 ml 894.901 ml Output Urine Total 1250 ml 1155 ml # Bowel Movements 4 Laboratory Tests 06/01/20 18:09: POC Whole Blood Glucose [Pending] 06/02/20 04:30: White Blood Count 4.3L, Red Blood Count 3.02L, Hemoglobin 9.3L, Hematocrit 27.2L , Mean Corpuscular Volume 90, Mean Corpuscular Hemoglobin 30.7, Mean Corpuscular Hemoglobin Concent 34.1, Red Cell Distribution Width 13.3, Platelet Count 159, Mean Platelet Volume 7.4, Neutrophils (%) (Auto) 79.1H, Lymphocytes (%) (Auto) 11.4L, Monocytes (%) (Auto) 7.5, Eosinophils (%) (Auto) 1.2, Basophils (%) (Auto) 0.8, Sodium Level 140, Potassium Level 3.1L, Chloride Level 104, Carbon Dioxide Level 28, Anion Gap 8, Blood Urea Nitrogen 13, Creatinine 0.5L, Estimat Glomerular Filtration Rate > 60, Glucose Level 90, Calcium Level 9.2, Phosphorus Level 2.4L, Magnesium Level 1.7L Height (Feet): 5 Height (Inches): 5.00 Weight (Pounds): 142 Objective Current Medications Medications (Trade) Dose Ordered Sig/Morgan Route PRN Reason Start Time Stop Time Status Last Admin Dose Admin Acetaminophen (Tylenol) 650 mg Q4H PRN GT Temp >100.5 05/16/20 06:15 06/15/20 06:14 05/31/20 13:15 Acetaminophen (Tylenol) 650 mg Q4H PRN RECTAL Temp >100.5 05/16/20 19:45 06/15/20 19:44 05/17/20 18:30 Atropine Sulfate (Atropine 0.4mg/ ml) 0.4 mg Q2HR PRN IVP HR <45 05/29/20 21:30 06/28/20 19:24 05/30/20 22:39 Chlorhexidine Gluconate (Lilliam-Hex 2%) 1 applic DAILY@2000 TOPIC 05/15/20 20:00 08/13/20 19:59 06/01/20 20:07 Dextrose (Dextrose 50%) 25 ml Q30M PRN IV Hypoglycemia 05/22/20 00:00 08/20/20 00:00 Dextrose (Dextrose 50%) 50 ml Q30M PRN IV Hypoglycemia 05/22/20 00:00 08/20/20 00:00 Dopamine HCl/ Dextrose 250 ml @ 0 mls/hr Q24H IV 05/31/20 15:15 06/03/20 15:03 06/01/20 20:07 Insulin Aspart (NovoLOG) EVERY 6 HOURS SUBQ 05/22/20 06:00 08/20/20 05:59 05/27/20 05:57 Midodrine (Pro-Amatine) 10 mg TID ORAL 05/23/20 09:00 08/21/20 08:59 06/01/20 12:57 Pantoprazole (Protonix) 40 mg DAILY IV 05/15/20 09:00 06/14/20 08:59 06/01/20 09:04 Phenylephrine HCl 100 mg/Dextrose 250 ml @ 0 mls/hr Q24H IV 05/15/20 00:15 06/03/20 23:59 05/15/20 13:28 Sodium Chloride 1,000 ml @ 75 mls/hr [id number] IV 05/15/20 06:45 06/14/20 06:44 06/02/20 00:01 Vancomycin HCl (Vanco pharmacy to dose) 1 ea DAILY PRN MISC Per rx protocol 06/01/20 17:00 07/01/20 16:59 Vancomycin HCl 1 gm/Sodium Chloride 250 ml @ 167.007 mls/hr Q24H IVPB 06/01/20 20:00 06/06/20 19:59 06/01/20 20:07 Vasopressin 100 units/Sodium Chloride 100 ml @ 0 mls/hr Q24H IV 05/15/20 00:15 06/03/20 23:59 Zinc Oxide (Zinc Oxide) 1 applic TIDPRN PRN TOPIC Abdominal cramps 05/20/20 13:00 08/18/20 12:59 Assessment/Plan Problem List: (1) COVID-19 ICD Codes: U07.1 - COVID-19 SNOMED: 874159699 (2) Elevated d-dimer ICD Codes: R79.89 - Other specified abnormal findings of blood chemistry SNOMED: 736552104 (3) Rapid atrial fibrillation ICD Codes: I48.91 - Unspecified atrial fibrillation SNOMED: 200461678 (4) Sepsis ICD Codes: A41.9 - Sepsis, unspecified organism SNOMED: 15661944 (5) Respiratory failure ICD Codes: J96.90 - Respiratory failure, unspecified, unspecified whether with hypoxia or hypercapnia SNOMED: 111322930 (6) Renal failure ICD Codes: N19 - Unspecified kidney failure SNOMED: 24945870 (7) Hypernatremia ICD Codes: E87.0 - Hyperosmolality and hypernatremia SNOMED: 447681505 (8) T2DM (type 2 diabetes mellitus) ICD Codes: E11.9 - Type 2 diabetes mellitus without complications SNOMED: 05764517 Status: stable Assessment/Plan: no need for basal insulin continue Novolog sliding scale every 6 hours hypoglycemia protocol in order Chau Shelley MD Jun 02, 2020 06:30
--- NOTE | 2020-06-02 07:18 | NUR ---
HAND-OFF: Report given to Marion RUIZ.
--- NOTE | 2020-06-02 07:20 | NUR ---
NURSE NOTES: Pt received from [facility] Cortez. Pt opens eyes to auditory stimuli; does not follow commands; withdraws to pain; bilat pupils equal and round 3 mm with sluggish rxn to light. Pt is SR to monitor worker with 1+ radial and dorsalis pedis pulses present. Pt is afebrile at this time. Pt received with tracheostomy to vent - shiley 8 AC 12 TV 500 FiO2 40% Peep 5- All lung sounds noted diminished upon auscultation. No bleeding noted from trache site. Abd is round and soft with active bowel sounds to all quadrant - GT area covered with abd dressing - noted dry and intact without bleeding. F/C noted draining yellow urine. Skin alterations noted. Pt has a RIJ TLC with dry ad intact dressing running dopa gtt at 4 mcg/kg/min and 1/2 NS at 75 cc/hr. Bed in lowest position, alarm on, side rails up x 2, call light within reach. Will continue to monitor. Addendum: 06/03/20 at 1045 by Marion Graf RN Late entry: Pt also observed with PROGRAM OFFICER restraints - observed attempting to pull trache tube. radial pulses palpable. ski to both wrists intact without redness. .
--- NOTE | 2020-06-02 08:00 | NUR ---
NURSE NOTES: Pt repositioned; oral care provided.
[2020-06-02] MEDS: Midodrine 10mg tab ORAL SCH (08:48)
[2020-06-02] MEDS: Pantoprazole Inj IV SCH (08:48)
--- NOTE | 2020-06-02 10:00 | NUR ---
NURSE NOTES: Pt repositioned. Meds given. No distress noted.
--- NOTE | 2020-06-02 10:21 | NUR ---
NURSE NOTES: Dr Enriquez assessing pt at bedside. Instructed RT Marii to initiate weaning today.
--- NOTE | 2020-06-02 10:27 | NUR ---
NURSE NOTES: Per Marii, RT: pt was placed on SIMV 8 PS 12 FiO2 40% Peep - pt tolerated these settings for two minutes and next became apneic - pt placed back on AC mode with previous settings at this time.
--- NOTE | 2020-06-02 10:28 | NUR ---
RESPIRATORY THERAPIST NOTES: Placed Patient on SPON PS +12 PEEP +5 40% FIO2 in an attempt to wean. After 2 minutes, Patient went apneic. Placed on SIMV 8, 500, PS +12, FIO2 40%, PEEP +5 and the Patient rode the ventilator at a total breath rate of 8bpm with no spontaneous effort. Placed back onto ACVC 12, 500, FIO2 40%, PEEP +5.
--- NOTE | 2020-06-02 10:30 | NUR ---
NURSE NOTES: Dr Wade assessing pt at bedside - all lab results reviewed. Made aware pt has DVT in left femoral vein - no new orders received at this time. OK to keep SCD on right lower extremity. Dr Wade will f/u concerning DVT tx. Addendum: 06/02/20 at 1554 by Marion Graf RN Late entry: potassium/phosphorus replacement ordered per Dr Wade.
--- NOTE | 2020-06-02 10:36 | Cardiac Electrophysiology PN ---
Assessment/Plan Assessment/Plan 1. [id number] myocardial infarction. Her troponin was 1.258, 1.2, 1.9, 3.4 and the down to 0.7 EKG does not show any acute ST-T wave abnormality and certainly no ST elevation. Due to septic shock, DCCV and Renal failure. Echo had poor windows. 2. PAF with RVR. S/P DCCV 3 times No more fib or accelerated junctional rhythm. Off beta-ramakrishna or calcium-channel ramakrishna as the patient is still on Dopamine 3. S/P Septic shock. On Dopamine and antibiotic.DC Midodrine 4. Bradycardia requiring Atropine x 3 on 05/30/20. On Dopamine 5. Severe hypernatremia with sodium of 174, BUN of 131, creatinine 2.7 due to dehydration. Improved 6. Dysphagia, status post PEG placement. GT removed on 05/[address] Matos pending 7. History of CVA and dementia. 8. 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 S/P Trach yesterday Objective Last 24 Hour Vital Signs Date Time Temp Pulse Resp B/P (MAP) Pulse Ox O2 Delivery O2 Flow Rate FiO2 06/02/20 09:00 70 14 104/67 (79) 100 06/02/20 08:00 40 06/02/20 08:00 83 06/02/20 08:00 70 14 105/58 (74) 100 06/02/20 07:10 79 15 96/60 (72) 100 06/02/20 07:07 67 12 40 06/02/20 07:04 67 12 80/55 (63) 99 06/02/20 07:01 66 12 72/42 (52) 98 06/02/20 07:00 72/42 06/02/20 06:30 78 12 06/02/20 06:00 77 12 102/58 (73) 99 06/02/20 06:00 102/58 06/02/20 05:00 115/61 06/02/20 05:00 80 12 115/61 (79) 99 06/02/20 04:00 79 06/02/20 04:00 98.9 81 16 112/66 (81) 99 06/02/20 04:00 40 06/02/20 04:00 Mechanical Ventilator 06/02/20 04:00 112/66 06/02/20 03:26 83 12 40 06/02/20 03:00 97 16 115/72 (86) 99 06/02/20 03:00 115/72 06/02/20 02:30 92 17 109/66 (80) 99 06/02/20 02:00 109/66 06/02/20 02:00 100 18 112/69 (83) 99 06/02/20 01:00 94 15 100/68 (79) 99 06/02/20 01:00 113/77 06/02/20 00:15 73 94/55 06/02/20 00:00 Mechanical Ventilator 06/02/20 00:00 40 06/02/20 00:00 71 06/02/20 00:00 98.4 74 15 107/67 (80) 96 06/02/20 00:00 86/58 06/01/20 23:30 73 14 40 06/01/20 23:00 115/68 06/01/20 23:00 78 16 115/67 (83) 96 06/01/20 22:00 91/55 06/01/20 22:00 72 15 91/63 (72) 94 06/01/20 21:00 109/58 06/01/20 21:00 74 12 109/56 (73) 94 06/01/20 20:07 92/53 06/01/20 20:06 92/53 06/01/20 20:00 Mechanical Ventilator 06/01/20 20:00 98.8 67 12 99/57 (71) 97 06/01/20 20:00 40 06/01/20 20:00 77 06/01/20 20:00 98/64 06/01/20 19:30 65 12 40 06/01/20 19:00 96/54 06/01/20 19:00 71 14 92/53 (66) 98 06/01/20 18:15 97/57 06/01/20 18:00 97/57 06/01/20 18:00 88 14 127/71 (89) 97 06/01/20 17:16 83 16 72/53 (59) 97 06/01/20 17:00 82/52 06/01/20 17:00 86 15 109/63 (78) 80 06/01/20 16:00 98.1 72 17 89/53 (65) 100 06/01/20 16:00 100/60 06/01/20 16:00 100 06/01/20 16:00 70 06/01/20 16:00 Mechanical Ventilator 06/01/20 15:52 84 12 99 06/01/20 15:44 86 13 40 06/01/20 15:30 101/60 06/01/20 14:00 81 19 123/64 (83) 99 06/01/20 14:00 116/62 06/01/20 13:30 106/56 06/01/20 13:00 115/55 06/01/20 13:00 73 17 115/55 (75) 96 06/01/20 12:30 72 117/60 (79) 97 06/01/20 12:00 77 06/01/20 12:00 40 06/01/20 12:00 98.9 72 109/62 (78) 97 06/01/20 12:00 Mechanical Ventilator 06/01/20 12:00 117/60 06/01/20 11:05 74 12 40 06/01/20 11:01 74 12 109/63 (78) 100 06/01/20 11:00 112/61 Intake and Output 06/01/20 06/02/20 19:00 07:00 Intake Total 1067.250 ml 1145.776 ml Output Total 1250 ml 1265 ml Balance -182.750 ml -119.224 ml IV Total 1067.250 ml 1145.776 ml Output Urine Total 1250 ml 1265 ml # Bowel Movements 4 Laboratory Tests Test 06/01/20 18:09 06/02/20 04:30 POC Whole Blood Glucose Pending White Blood Count 4.3 K/UL (4.8-10.8) L Red Blood Count 3.02 M/UL (4.20-5.40) L Hemoglobin 9.3 G/DL (12.0-16.0) L Hematocrit 27.2 % (37.0-47.0) L Mean Corpuscular Volume 90 FL (80-99) Mean Corpuscular Hemoglobin 30.7 PG (27.0-31.0) Mean Corpuscular Hemoglobin Concent 34.1 G/DL (32.0-36.0) Red Cell Distribution Width 13.3 % (11.6-14.8) Platelet Count 159 K/UL (150-450) Mean Platelet Volume 7.4 FL (6.5-10.1) Neutrophils (%) (Auto) 79.1 % (45.0-75.0) H Lymphocytes (%) (Auto) 11.4 % (20.0-45.0) L Monocytes (%) (Auto) 7.5 % (1.0-10.0) Eosinophils (%) (Auto) 1.2 % (0.0-3.0) Basophils (%) (Auto) 0.8 % (0.0-2.0) Sodium Level 140 MMOL/L (136-145) Potassium Level 3.1 MMOL/L (3.5-5.1) L Chloride Level 104 MMOL/L (98-107) Carbon Dioxide Level 28 MMOL/L (21-32) Anion Gap 8 mmol/L (5-15) Blood Urea Nitrogen 13 mg/dL (7-18) Creatinine 0.5 MG/DL (0.55-1.30) L Estimat Glomerular Filtration Rate > 60 mL/min (>60) Glucose Level 90 MG/DL (74-106) Calcium Level 9.2 MG/DL (8.5-10.1) Phosphorus Level 2.4 MG/DL (2.5-4.9) L Magnesium Level 1.7 MG/DL (1.8-2.4) L Microbiology Date/Time Source Procedure Growth Status 05/31/20 19:45 Blood Blood Culture - Preliminary NO GROWTH AFTER 24 HOURS Resulted 05/31/20 16:00 Urine,Clean Catch Urine Culture - Preliminary NO GROWTH AFTER 24 HOURS Resulted 05/31/20 14:00 Blood Blood Culture - Preliminary Gram Negative Yunior Resulted Objective HEAD AND NECK: No JVD. Tracheostomy in place. NGT LUNGS: Coarse rhonchi. CARDIOVASCULAR: Regular S1 and S2 with no gallop. ABDOMEN: Soft. G-tube site is covered. EXTREMITIES: Show no pitting edema. Norman Morillo MD Jun 02, 2020 10:36
--- NOTE | 2020-06-02 10:53 | NUR ---
RD ASSESSMENT & RECOMMENDATIONS SEE CARE ACTIVITY FOR COMPLETE ASSESSMENT DAILY ESTIMATED NEEDS: Needs based on Critical care, 57.8kg abw 22-30 kcals/kg 3673-8185 total kcals 1.2-2 g protein/kg 69-116 g total protein 25-30 mL/kg 0251-1831 total fluid mLs NUTRITION DIAGNOSIS: Swallowing difficulty r/t h/o CVA, dysphagia as evidenced by pt is GT dep, now intubated w/ resp distress, now s/p trach and new PEG. CURRENT TF:NPO post trach and new PEG ENTERAL NUTRITION RECOMMENDATIONS: Glucerna 1.2 @ 60ml/hr x24 hrs to provide 1440ml, 1728 kcal, 86g pro, 1159ml free H2O -> With hemodynamic stability, restart feeds as per recs above. - Start @30ml/hr advance as tolerated to goal. - Flush per MD. HOB over 30 degrees ADDITIONAL RECOMMENDATIONS: 1) Monitor hemodynamic stablity: off pressor support 2) Obtain an accurate wt: per MD pt w/ 'cachexia' EMR wt: 117.8kg vs am wts:64kg; trend wt, need to increase TF 3) Wound healing: TF provides 100% RDI add Vit C 250mg QD + Flavio BID 4) Monitor lytes, replete as needed 5) Monitor BGs closely: improved-> Sravanthi dc'ed, Natalia dc'ed
--- NOTE | 2020-06-02 10:57 | General Progress Note ---
Subjective Date patient seen: Jun 02, 2020 Time patient seen: 10:00 ROS Limited/Unobtainable: Yes Allergies: Coded Allergies: DIVALPROEX SODIUM (Verified Allergy, Unknown, 05/14/20) PENICILLINS (Verified Allergy, Unknown, 05/14/20) Subjective Non verbal, tacheostomy and PEG in place Objective Last 24 Hour Vital Signs Date Time Temp Pulse Resp B/P (MAP) Pulse Ox O2 Delivery O2 Flow Rate FiO2 06/02/20 10:00 55 14 92/54 (67) 100 06/02/20 09:00 70 14 104/67 (79) 100 06/02/20 08:00 40 06/02/20 08:00 83 06/02/20 08:00 70 14 105/58 (74) 100 06/02/20 07:10 79 15 96/60 (72) 100 06/02/20 07:07 67 12 40 06/02/20 07:04 67 12 80/55 (63) 99 06/02/20 07:01 66 12 72/42 (52) 98 06/02/20 07:00 72/42 06/02/20 06:30 78 12 06/02/20 06:00 77 12 102/58 (73) 99 06/02/20 06:00 102/58 06/02/20 05:00 115/61 06/02/20 05:00 80 12 115/61 (79) 99 06/02/20 04:00 79 06/02/20 04:00 98.9 81 16 112/66 (81) 99 06/02/20 04:00 40 06/02/20 04:00 Mechanical Ventilator 06/02/20 04:00 112/66 06/02/20 03:26 83 12 40 06/02/20 03:00 97 16 115/72 (86) 99 06/02/20 03:00 115/72 06/02/20 02:30 92 17 109/66 (80) 99 06/02/20 02:00 109/66 06/02/20 02:00 100 18 112/69 (83) 99 06/02/20 01:00 94 15 100/68 (79) 99 06/02/20 01:00 113/77 06/02/20 00:15 73 94/55 06/02/20 00:00 Mechanical Ventilator 06/02/20 00:00 40 06/02/20 00:00 71 06/02/20 00:00 98.4 74 15 107/67 (80) 96 06/02/20 00:00 86/58 06/01/20 23:30 73 14 40 06/01/20 23:00 115/68 06/01/20 23:00 78 16 115/67 (83) 96 06/01/20 22:00 91/55 06/01/20 22:00 72 15 91/63 (72) 94 06/01/20 21:00 109/58 06/01/20 21:00 74 12 109/56 (73) 94 06/01/20 20:07 92/53 06/01/20 20:06 92/53 06/01/20 20:00 Mechanical Ventilator 06/01/20 20:00 98.8 67 12 99/57 (71) 97 06/01/20 20:00 40 06/01/20 20:00 77 06/01/20 20:00 98/64 06/01/20 19:30 65 12 40 06/01/20 19:00 96/54 06/01/20 19:00 71 14 92/53 (66) 98 06/01/20 18:15 97/57 06/01/20 18:00 97/57 06/01/20 18:00 88 14 127/71 (89) 97 06/01/20 17:16 83 16 72/53 (59) 97 06/01/20 17:00 82/52 06/01/20 17:00 86 15 109/63 (78) 80 06/01/20 16:00 98.1 72 17 89/53 (65) 100 06/01/20 16:00 100/60 06/01/20 16:00 100 06/01/20 16:00 70 06/01/20 16:00 Mechanical Ventilator 06/01/20 15:52 84 12 99 06/01/20 15:44 86 13 40 06/01/20 15:30 101/60 06/01/20 14:00 81 19 123/64 (83) 99 06/01/20 14:00 116/62 06/01/20 13:30 106/56 06/01/20 13:00 115/55 06/01/20 13:00 73 17 115/55 (75) 96 06/01/20 12:30 72 117/60 (79) 97 06/01/20 12:00 77 06/01/20 12:00 40 06/01/20 12:00 98.9 72 109/62 (78) 97 06/01/20 12:00 Mechanical Ventilator 06/01/20 12:00 117/60 06/01/20 11:05 74 12 40 06/01/20 11:01 74 12 109/63 (78) 100 06/01/20 11:00 112/61 Intake and Output 06/01/20 06/02/20 19:00 07:00 Intake Total 1067.250 ml 1145.776 ml Output Total 1250 ml 1265 ml Balance -182.750 ml -119.224 ml IV Total 1067.250 ml 1145.776 ml Output Urine Total 1250 ml 1265 ml # Bowel Movements 4 Laboratory Tests 06/01/20 18:09: POC Whole Blood Glucose [Pending] 06/02/20 04:30: White Blood Count 4.3L, Red Blood Count 3.02L, Hemoglobin 9.3L, Hematocrit 27.2L , Mean Corpuscular Volume 90, Mean Corpuscular Hemoglobin 30.7, Mean Corpuscular Hemoglobin Concent 34.1, Red Cell Distribution Width 13.3, Platelet Count 159, Mean Platelet Volume 7.4, Neutrophils (%) (Auto) 79.1H, Lymphocytes (%) (Auto) 11.4L, Monocytes (%) (Auto) 7.5, Eosinophils (%) (Auto) 1.2, Basophils (%) (Auto) 0.8, Sodium Level 140, Potassium Level 3.1L, Chloride Level 104, Carbon Dioxide Level 28, Anion Gap 8, Blood Urea Nitrogen 13, Creatinine 0.5L, Estimat Glomerular Filtration Rate > 60, Glucose Level 90, Calcium Level 9.2, Phosphorus Level 2.4L, Magnesium Level 1.7L Height (Feet): 5 Height (Inches): 5.00 Weight (Pounds): 142 General Appearance: WD/WN EENT: PERRL/EOMI Neck: non-tender Cardiovascular: normal rate Respiratory/Chest: decreased breath sounds Edema: trace edema Assessment/Plan Status: stable Assessment/Plan: 70-year-old female history of advanced dementia, cachexia, dysphasia G-tube dependent feeding presents for evaluation of rapid heart rate and hypotension from COVID positive SNF. # Septic with element of cardiogenic shock Etiology COVID 19 vs UTI vs bacteremia / contaminant and NSTEMI Bcx POSITIVE WITH G+ Cocci s/p vancomycin Sputum Cx 05/25 reviewed today with Pseudomonas. Colonizer and recent completion of 14 day treatment with Meropenem U cx 05/14 Proteus Mirabillis Continue Meropenem 14 days completed Vancomycin stopped stopped Cefepime Dexamethasone 10 day course completed Leukocytosis improved. Monitor clinically for now and OFF antibiotics per ID # Acute respiratory failure Intubated. Self extubated 05/27 and re intubated by ED MD successfully. ICU care appreciated Dr. Rock following Ventilator management per ICU-pulmonary FiO2 40 % today. T piece. Medically tracheostomy is needed and life saving procedure as she is not tolerating wean off. Overall, her quality of life will not improve from prior baseline with advanced dementia. Will need permanent ventilator support via tracheostomy and subacute level of care. Critical care attending, Surgery and GI attendings notified to plan PEG and TRACH as medically indicated. # SVT vs A. Flutter s/p DC x 3 # NSTEMI HR is controlled in the 100 range and tolerating Digoxin Vasopressors in place Levophed at [address] Morillo requested and TTE requested and poor window. Limited due to covid positive Troponin 3.4 now 0.7 EKG 05/17 NSR, stable. # AG metabolic acidosis Ddx lactic acidosis Improved. # Hyperglycemia r/o DKA ABG and Ketones negative Endocrine consult with Dr. Shelley IV insulin gtt stopped and in SQ insulin coverage now # Hypernatremia resolved Improving Monitor BMP # COVID 19 Positive on admission. Original infection > 15 days ago, do not qualify for Revdisimir or plasma On Dexamethasone completed 10 day course Contact and droplet isolation # Dysphagia PEG REMOVED 05/16 Carlo Vargas consulted and appreciate follow up and final plan for PEG replaced 06/01 NGT placed and Tube feeds started 05/18 and being tolerated at 45 cc hr Glucerna 1.2 # Severe protein caloric malnutrition with Albumin 1.5 RD follow up # Thrombocytopenia Platelets down from 80 K to 64 K to 66 K ( OFF Heparin ) and improved to normal range. 05/17 dc heparin, use SCD, order US Liver, HIT Ab, HIV negative # Newly detected lower extremity DVT HOLD off anticoagulation as tracheostomy and PEG done 06/[address] surgery Dr. Garcia to clear starting of anticoagulation therapy for DVT # Hypokalemia # Hypophosphatemia Replace with K phos IV today Monitor in AM # Dementia Baseline # FULL CODE SW follow up to reach out to DPOA and consider change in code status due to high morbidity and risk of inpatient mortality. Paperwork completed for superior court of the [facility] for request of tracheostomy and gastrostomy placement due to medical need on 05/26/20 Bioethic consult requested and spoke with Dr. Hung from ethics and I agree with his assessment that the patient quality of life will NOT IMPROVE with tracheostomy and replacement of PEG. The patient is very limited due to her underlying dementia and now unable to wean off the ventilator. SHE HAD THE NEED TO GET A TRACHEOSTOMY and PEG was replaced 06/01/[address] Garcia DUE TO MEDICAL NECESSITY AND LIFE SAVING PROCEDURES. DR. ROCK AND I AGREED AND SIGNED [address] MD CON[address] FORM. PENDING [address] DECISION REGARDING CODE STATUS. DNR IS MEDICALLY INDICATED. Due to the medical need for TRACH and PEG, this will be scheduled at this time for today. > 50 min spent in coordination of care and consultation with physicians and RN. Jessica Wade MD Jun 02, 2020 10:57
--- NOTE | 2020-06-02 10:57 | Pulmonology Progress Note ---
Subjective ROS Limited/Unobtainable: Yes Interval Events: Unable to extubtae due to poor mental status; s/p trach and PEG Constitutional: Reports: no symptoms HEENT: Repors: no symptoms Respiratory: Reports: no symptoms Cardiovascular: Reports: no symptoms Gastrointestinal/Abdominal: Reports: no symptoms Genitourinary: Reports: no symptoms Allergies: Coded Allergies: DIVALPROEX SODIUM (Verified Allergy, Unknown, 05/14/20) PENICILLINS (Verified Allergy, Unknown, 05/14/20) All Systems: reviewed and negative except above Objective Last 24 Hour Vital Signs Date Time Temp Pulse Resp B/P (MAP) Pulse Ox O2 Delivery O2 Flow Rate FiO2 06/02/20 10:00 55 14 92/54 (67) 100 06/02/20 09:00 70 14 104/67 (79) 100 06/02/20 08:00 40 06/02/20 08:00 83 06/02/20 08:00 70 14 105/58 (74) 100 06/02/20 07:10 79 15 96/60 (72) 100 06/02/20 07:07 67 12 40 06/02/20 07:04 67 12 80/55 (63) 99 06/02/20 07:01 66 12 72/42 (52) 98 06/02/20 07:00 72/42 06/02/20 06:30 78 12 06/02/20 06:00 77 12 102/58 (73) 99 06/02/20 06:00 102/58 06/02/20 05:00 115/61 06/02/20 05:00 80 12 115/61 (79) 99 06/02/20 04:00 79 06/02/20 04:00 98.9 81 16 112/66 (81) 99 06/02/20 04:00 40 06/02/20 04:00 Mechanical Ventilator 06/02/20 04:00 112/66 06/02/20 03:26 83 12 40 06/02/20 03:00 97 16 115/72 (86) 99 06/02/20 03:00 115/72 06/02/20 02:30 92 17 109/66 (80) 99 06/02/20 02:00 109/66 06/02/20 02:00 100 18 112/69 (83) 99 9/24/20 01:00 94 15 100/68 (79) 99 06/02/20 01:00 113/77 06/02/20 00:15 73 94/55 06/02/20 00:00 Mechanical Ventilator 06/02/20 00:00 40 06/02/20 00:00 71 06/02/20 00:00 98.4 74 15 107/67 (80) 96 06/02/20 00:00 86/58 06/01/20 23:30 73 14 40 06/01/20 23:00 115/68 06/01/20 23:00 78 16 115/67 (83) 96 06/01/20 22:00 91/55 06/01/20 22:00 72 15 91/63 (72) 94 06/01/20 21:00 109/58 06/01/20 21:00 74 12 109/56 (73) 94 06/01/20 20:07 92/53 06/01/20 20:06 92/53 06/01/20 20:00 Mechanical Ventilator 06/01/20 20:00 98.8 67 12 99/57 (71) 97 06/01/20 20:00 40 06/01/20 20:00 77 06/01/20 20:00 98/64 06/01/20 19:30 65 12 40 06/01/20 19:00 96/54 06/01/20 19:00 71 14 92/53 (66) 98 06/01/20 18:15 97/57 06/01/20 18:00 97/57 06/01/20 18:00 88 14 127/71 (89) 97 06/01/20 17:16 83 16 72/53 (59) 97 06/01/20 17:00 82/52 06/01/20 17:00 86 15 109/63 (78) 80 06/01/20 16:00 98.1 72 17 89/53 (65) 100 06/01/20 16:00 100/60 06/01/20 16:00 100 06/01/20 16:00 70 06/01/20 16:00 Mechanical Ventilator 06/01/20 15:52 84 12 99 06/01/20 15:44 86 13 40 06/01/20 15:30 101/60 06/01/20 14:00 81 19 123/64 (83) 99 06/01/20 14:00 116/62 06/01/20 13:30 106/56 06/01/20 13:00 115/55 06/01/20 13:00 73 17 115/55 (75) 96 06/01/20 12:30 72 117/60 (79) 97 06/01/20 12:00 77 06/01/20 12:00 40 06/01/20 12:00 98.9 72 109/62 (78) 97 06/01/20 12:00 Mechanical Ventilator 06/01/20 12:00 117/60 06/01/20 11:05 74 12 40 06/01/20 11:01 74 12 109/63 (78) 100 06/01/20 11:00 112/61 Intake and Output 06/01/20 06/02/20 19:00 07:00 Intake Total 1067.250 ml 1145.776 ml Output Total 1250 ml 1265 ml Balance -182.750 ml -119.224 ml IV Total 1067.250 ml 1145.776 ml Output Urine Total 1250 ml 1265 ml # Bowel Movements 4 General Appearance: no acute distress HEENT: normocephalic, status post trach Respiratory: chest wall non-tender, lungs clear Cardiovascular: normal peripheral pulses, normal rate Abdomen: normal bowel sounds Microbiology Date/Time Source Procedure Growth Status 05/31/20 19:45 Blood Blood Culture - Preliminary NO GROWTH AFTER 24 HOURS Resulted 05/31/20 16:00 Urine,Clean Catch Urine Culture - Preliminary NO GROWTH AFTER 24 HOURS Resulted 05/31/20 14:00 Blood Blood Culture - Preliminary Gram Negative Yunior Resulted Laboratory Tests 06/01/20 18:09: POC Whole Blood Glucose [Pending] 06/02/20 04:30: White Blood Count 4.3L, Red Blood Count 3.02L, Hemoglobin 9.3L, Hematocrit 27.2L , Mean Corpuscular Volume 90, Mean Corpuscular Hemoglobin 30.7, Mean Corpuscular Hemoglobin Concent 34.1, Red Cell Distribution Width 13.3, Platelet Count 159, Mean Platelet Volume 7.4, Neutrophils (%) (Auto) 79.1H, Lymphocytes (%) (Auto) 11.4L, Monocytes (%) (Auto) 7.5, Eosinophils (%) (Auto) 1.2, Basophils (%) (Auto) 0.8, Sodium Level 140, Potassium Level 3.1L, Chloride Level 104, Carbon Dioxide Level 28, Anion Gap 8, Blood Urea Nitrogen 13, Creatinine 0.5L, Estimat Glomerular Filtration Rate > 60, Glucose Level 90, Calcium Level 9.2, Phosphorus Level 2.4L, Magnesium Level 1.7L Current Medications Medications (Trade) Dose Ordered Sig/Morgan Route PRN Reason Start Time Stop Time Status Last Admin Dose Admin Acetaminophen (Tylenol) 650 mg Q4H PRN GT Temp >100.5 05/16/20 06:15 06/15/20 06:14 05/31/20 13:15 Acetaminophen (Tylenol) 650 mg Q4H PRN RECTAL Temp >100.5 05/16/20 19:45 06/15/20 19:44 05/17/20 18:30 Atropine Sulfate (Atropine 0.4mg/ ml) 0.4 mg Q2HR PRN IVP HR <45 05/29/20 21:30 06/28/20 19:24 05/30/20 22:39 Chlorhexidine Gluconate (Lilliam-Hex 2%) 1 applic DAILY@2000 TOPIC 05/15/20 20:00 08/13/20 19:59 06/01/20 20:07 Dextrose (Dextrose 50%) 25 ml Q30M PRN IV Hypoglycemia 05/22/20 00:00 08/20/20 00:00 Dextrose (Dextrose 50%) 50 ml Q30M PRN IV Hypoglycemia 05/22/20 00:00 08/20/20 00:00 Dopamine HCl/ Dextrose 250 ml @ 0 mls/hr Q24H IV 05/31/20 15:15 06/03/20 15:03 06/01/20 20:07 Insulin Aspart (NovoLOG) EVERY 6 HOURS SUBQ 05/22/20 06:00 08/20/20 05:59 05/27/20 05:57 Pantoprazole (Protonix) 40 mg DAILY IV 05/15/20 09:00 06/14/20 08:59 06/02/20 08:48 Phenylephrine HCl 100 mg/Dextrose 250 ml @ 0 mls/hr Q24H IV 05/15/20 00:15 06/03/20 23:59 05/15/20 13:28 Potassium Phosphate 30 mm/ Sodium Chloride 285 ml @ 46.944 mls/ hr ONCE ONCE IV 06/02/20 12:00 06/02/20 18:04 Sodium Chloride 1,000 ml @ 75 mls/hr [id number] IV 05/15/20 06:45 06/14/20 06:44 06/02/20 00:01 Vancomycin HCl (Vanco pharmacy to dose) 1 ea DAILY PRN MISC Per rx protocol 06/01/20 17:00 07/01/20 16:59 Vancomycin HCl 1 gm/Sodium Chloride 250 ml @ 167.007 mls/hr Q24H IVPB 06/01/20 20:00 06/06/20 19:59 06/01/20 20:07 Vasopressin 100 units/Sodium Chloride 100 ml @ 0 mls/hr Q24H IV 05/15/20 00:15 06/03/20 23:59 Zinc Oxide (Zinc Oxide) 1 applic TIDPRN PRN TOPIC Abdominal cramps 05/20/20 13:00 08/18/20 12:59 Assessment/Plan Assessment/Plan IMPRESSION: 1. Acute respiratory failure. 2. Diabetes mellitus with hyperglycemia. 3. Septic shock. 4. Chronic G-tube. 5. Decubitus. 6. History of CHF. DISCUSSION: Continue fluids and antibiotics. Pressors prn S/p trach Will begin weaning On 40% FiO2 DVT and GI prophylaxis. Respiratory precautions due to COVID-[address] Wade. S/p PEG Richard James Omar Syed MD Jun 02, 2020 10:57
--- NOTE | 2020-06-02 11:00 | NUR ---
NURSE NOTES: Dr Romeo assessing pt at bedside - order received to swab for covid (primex).
--- NOTE | 2020-06-02 11:01 | Infectious Diseases Prog Note ---
Assessment/Plan 70 yo female with PMHx of Dementia, DM, CVA ( S/P PEG), COVID 19 infection and pressure ulcers. Septic Shock-combination cardiogenic and septic; -back on pressors, decreasing Gram positive bacteremia- contaminant; recurrent -05/31 Bcx 1/2 Gram variable rods -05/14 Bcx 1/4 S. haemolyticus; 05/17 Bcx Neg UTI, sp rx UA (+); ucx 10-20k P. mirabilis (S Ceftriaxone, Cefepime) PNA, superimposed bacterial, sp rx Recent COVID19 pna- now repeat neg x2 -05/27 CXR: Previously seen left lung atelectasis has nearly completely resolved. Retrocardiac atelectasis without or with some component of consolidation. Low lung volumes with bronchovascular crowding. -05/26 CXR: Complete opacification of the left hemithorax with mediastinal shift to the left likely due to complete atelectasis of the left lung perhaps from mucous plugging. rapid COVID PCR neg -05/25 sp cx MDR PsA (I Ceftazidime, Colistin, Polymixin B); suspect colonizer SARS-COV2 neg -05/24 SARS-COV2 pCR inconclusive -05/23 CXR: Worsening aeration with increasing hazy opacification of the left lung base which may related to increased layering pleural effusion and adjacent atelectasis/consolidation. -05/19 CXR: Increasing left pleural fluid and likely basilar consolidation/atelectasis. Interim orogastric intubation 05/16 CXR: Retrocardiac density may represent atelectasis versus infiltrate. CXR 05/14/20 showed Retrocardiac atelectasis/infiltrate with Pulmonary venous congestion. sp cx MDR E.coli (S Cefepime, Meropenem, Zosyn) Hx of COVID 19 - Bacteria secondary infection? Asp PNA? 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 Negative for dilated bile ducts. Normal appearing liver and spleen. Trace ascites sp trach/peg 06/01 Dementia DM Hx CVA ( S/P PEG) pressure ulcers PLAN - Start Meropenem #1 for GRN bacteremia - 06/02/20 SP Vancomycin #2 - 05/27 SP Meropenem #11 -05/24 SP Decadron #11 -/ SP IV Vancomcyin #6 -05/17 SP Cefepime #4 - f/u Cultures - Monitor CBC and Temps -repeat covid neg x2 -f/u repeat cultures Thank you for consulting [facility]. Will continue to follow along with you. Discussed with RN. Subjective Allergies: Coded Allergies: DIVALPROEX SODIUM (Verified Allergy, Unknown, 05/14/20) PENICILLINS (Verified Allergy, Unknown, 05/14/20) Afebrile No Leukocytosis On vent Blood Cx 09/10 GNR Objective Last 24 Hour Vital Signs Date Time Temp Pulse Resp B/P (MAP) Pulse Ox O2 Delivery O2 Flow Rate FiO2 06/02/20 10:38 62 12 40 06/02/20 10:00 55 14 92/54 (67) 100 06/02/20 09:00 70 14 104/67 (79) 100 06/02/20 08:00 40 06/02/20 08:00 83 06/02/20 08:00 70 14 105/58 (74) 100 06/02/20 07:10 79 15 96/60 (72) 100 06/02/20 07:07 67 12 40 06/02/20 07:04 67 12 80/55 (63) 99 06/02/20 07:01 66 12 72/42 (52) 98 06/02/20 07:00 72/42 06/02/20 06:30 78 12 06/02/20 06:00 77 12 102/58 (73) 99 06/02/20 06:00 102/58 06/02/20 05:00 115/61 06/02/20 05:00 80 12 115/61 (79) 99 06/02/20 04:00 79 06/02/20 04:00 98.9 81 16 112/66 (81) 99 06/02/20 04:00 40 06/02/20 04:00 Mechanical Ventilator 06/02/20 04:00 112/66 06/02/20 03:26 83 12 40 06/02/20 03:00 97 16 115/72 (86) 99 06/02/20 03:00 115/72 06/02/20 02:30 92 17 109/66 (80) 99 06/02/20 02:00 109/66 06/02/20 02:00 100 18 112/69 (83) 99 06/02/20 01:00 94 15 100/68 (79) 99 06/02/20 01:00 113/77 06/02/20 00:15 73 94/55 06/02/20 00:00 Mechanical Ventilator 06/02/20 00:00 40 06/02/20 00:00 71 06/02/20 00:00 98.4 74 15 107/67 (80) 96 06/02/20 00:00 86/58 06/01/20 23:30 73 14 40 06/01/20 23:00 115/68 06/01/20 23:00 78 16 115/67 (83) 96 06/01/20 22:00 91/55 06/01/20 22:00 72 15 91/63 (72) 94 06/01/20 21:00 109/58 06/01/20 21:00 74 12 109/56 (73) 94 06/01/20 20:07 92/53 06/01/20 20:06 92/53 06/01/20 20:00 Mechanical Ventilator 06/01/20 20:00 98.8 67 12 99/57 (71) 97 06/01/20 20:00 40 06/01/20 20:00 77 06/01/20 20:00 98/64 06/01/20 19:30 65 12 40 06/01/20 19:00 96/54 06/01/20 19:00 71 14 92/53 (66) 98 06/01/20 18:15 97/57 06/01/20 18:00 97/57 06/01/20 18:00 88 14 127/71 (89) 97 06/01/20 17:16 83 16 72/53 (59) 97 06/01/20 17:00 82/52 06/01/20 17:00 86 15 109/63 (78) 80 06/01/20 16:00 98.1 72 17 89/53 (65) 100 06/01/20 16:00 100/60 06/01/20 16:00 100 06/01/20 16:00 70 06/01/20 16:00 Mechanical Ventilator 06/01/20 15:52 84 12 99 06/01/20 15:44 86 13 40 06/01/20 15:30 101/60 06/01/20 14:00 81 19 123/64 (83) 99 06/01/20 14:00 116/62 06/01/20 13:30 106/56 06/01/20 13:00 115/55 06/01/20 13:00 73 17 115/55 (75) 96 06/01/20 12:30 72 117/60 (79) 97 06/01/20 12:00 77 06/01/20 12:00 40 06/01/20 12:00 98.9 72 109/62 (78) 97 06/01/20 12:00 Mechanical Ventilator 06/01/20 12:00 117/60 06/01/20 11:05 74 12 40 06/01/20 11:01 74 12 109/63 (78) 100 06/01/20 11:00 112/61 Height (Feet): 5 Height (Inches): 5.00 Weight (Pounds): 142 GEN: On Vent 40% O2 HEENT: NCAT, MMM, Intubated Pulm: Equal rise and fall B/L ABD: Soft, ND, PEG (No e/p) Neuro: Not following, Intubated SKIN: Exposed skin with no rash, Normal in color Microbiology Date/Time Source Procedure Growth Status 05/31/20 19:45 Blood Blood Culture - Preliminary NO GROWTH AFTER 24 HOURS Resulted 05/31/20 16:00 Urine,Clean Catch Urine Culture - Preliminary NO GROWTH AFTER 24 HOURS Resulted 05/31/20 14:00 Blood Blood Culture - Preliminary Gram Negative Yunior Resulted Laboratory Tests Test 06/01/20 18:09 06/02/20 04:30 POC Whole Blood Glucose Pending White Blood Count 4.3 K/UL (4.8-10.8) L Red Blood Count 3.02 M/UL (4.20-5.40) L Hemoglobin 9.3 G/DL (12.0-16.0) L Hematocrit 27.2 % (37.0-47.0) L Mean Corpuscular Volume 90 FL (80-99) Mean Corpuscular Hemoglobin 30.7 PG (27.0-31.0) Mean Corpuscular Hemoglobin Concent 34.1 G/DL (32.0-36.0) Red Cell Distribution Width 13.3 % (11.6-14.8) Platelet Count 159 K/UL (150-450) Mean Platelet Volume 7.4 FL (6.5-10.1) Neutrophils (%) (Auto) 79.1 % (45.0-75.0) H Lymphocytes (%) (Auto) 11.4 % (20.0-45.0) L Monocytes (%) (Auto) 7.5 % (1.0-10.0) Eosinophils (%) (Auto) 1.2 % (0.0-3.0) Basophils (%) (Auto) 0.8 % (0.0-2.0) Sodium Level 140 MMOL/L (136-145) Potassium Level 3.1 MMOL/L (3.5-5.1) L Chloride Level 104 MMOL/L (98-107) Carbon Dioxide Level 28 MMOL/L (21-32) Anion Gap 8 mmol/L (5-15) Blood Urea Nitrogen 13 mg/dL (7-18) Creatinine 0.5 MG/DL (0.55-1.30) L Estimat Glomerular Filtration Rate > 60 mL/min (>60) Glucose Level 90 MG/DL (74-106) Calcium Level 9.2 MG/DL (8.5-10.1) Phosphorus Level 2.4 MG/DL (2.5-4.9) L Magnesium Level 1.7 MG/DL (1.8-2.4) L Current Medications Medications (Trade) Dose Ordered Sig/Morgan Route PRN Reason Start Time Stop Time Status Last Admin Dose Admin Acetaminophen (Tylenol) 650 mg Q4H PRN GT Temp >100.5 05/16/20 06:15 06/15/20 06:14 05/31/20 13:15 Acetaminophen (Tylenol) 650 mg Q4H PRN RECTAL Temp >100.5 05/16/20 19:45 06/15/20 19:44 05/17/20 18:30 Atropine Sulfate (Atropine 0.4mg/ ml) 0.4 mg Q2HR PRN IVP HR <45 05/29/20 21:30 06/28/20 19:24 05/30/20 22:39 Chlorhexidine Gluconate (Lilliam-Hex 2%) 1 applic DAILY@2000 TOPIC 05/15/20 20:00 08/13/20 19:59 06/01/20 20:07 Dextrose (Dextrose 50%) 25 ml Q30M PRN IV Hypoglycemia 05/22/20 00:00 08/20/20 00:00 Dextrose (Dextrose 50%) 50 ml Q30M PRN IV Hypoglycemia 05/22/20 00:00 08/20/20 00:00 Dopamine HCl/ Dextrose 250 ml @ 0 mls/hr Q24H IV 05/31/20 15:15 06/03/20 15:03 06/01/20 20:07 Insulin Aspart (NovoLOG) EVERY 6 HOURS SUBQ 05/22/20 06:00 08/20/20 05:59 05/27/20 05:57 Pantoprazole (Protonix) 40 mg DAILY IV 05/15/20 09:00 06/14/20 08:59 06/02/20 08:48 Phenylephrine HCl 100 mg/Dextrose 250 ml @ 0 mls/hr Q24H IV 05/15/20 00:15 06/03/20 23:59 05/15/20 13:28 Potassium Phosphate 30 mm/ Sodium Chloride 285 ml @ 46.944 mls/ hr ONCE ONCE IV 06/02/20 12:00 06/02/20 18:04 Sodium Chloride 1,000 ml @ 75 mls/hr [id number] IV 05/15/20 06:45 06/14/20 06:44 06/02/20 00:01 Vancomycin HCl (Vanco pharmacy to dose) 1 ea DAILY PRN MISC Per rx protocol 06/01/20 17:00 07/01/20 16:59 Vancomycin HCl 1 gm/Sodium Chloride 250 ml @ 167.007 mls/hr Q24H IVPB 06/01/20 20:00 06/06/20 19:59 06/01/20 20:07 Vasopressin 100 units/Sodium Chloride 100 ml @ 0 mls/hr Q24H IV 05/15/20 00:15 06/03/20 23:59 Zinc Oxide (Zinc Oxide) 1 applic TIDPRN PRN TOPIC Abdominal cramps 05/20/20 13:00 08/18/20 12:59 Erasto Romeo MD Jun 02, 2020 11:01
[2020-06-02] MEDS ORDERED: Potassium Phosphate 30 MM in NS 275 ML IV ONE (12:00)
--- NOTE | 2020-06-02 12:00 | NUR ---
NURSE NOTES: Pt repositioned. Oral care provided. Remains afebrile.
[2020-06-02] MEDS ORDERED: Midodrine 10mg tab ORAL SCH (13:00)
--- NOTE | 2020-06-02 13:00 | NUR ---
NURSE NOTES: Dr Garcia assessing pt - OK to resume tube feeding.
[2020-06-02] MEDS: Meropenem 1 GM in NS 55 ML IVPB SCH ×2 (13:14→22:00)
--- NOTE | 2020-06-02 13:29 | NUR ---
*-*DISCHARGE PLANNING*-* PATIENT HAS BEEN REFERRED TO: [facility] P: [phone] [facility] P: [phone]
--- NOTE | 2020-06-02 13:54 | Cardiology Report ---
APPROVED REPORT EKG Measurement Heart [id number] <Conclusion> Sinus rhythm with short IA with premature atrial complexes ST & T wave abnormality, consider inferior ischemia ST & T wave abnormality, consider anterolateral ischemia Abnormal ECG
--- NOTE | 2020-06-02 13:58 | Surgery Progress Note ---
Surgery Progress Note Subjective Procedure Performed trach egd with peg Additional Comments s/p peg and trach looks much more comfortable today weaning vent start tube feeds Objective Last 24 Hour Vital Signs Date Time Temp Pulse Resp B/P (MAP) Pulse Ox O2 Delivery O2 Flow Rate FiO2 06/02/20 13:00 53 14 83/41 (55) 99 06/02/20 12:00 98.7 60 13 90/49 (63) 99 06/02/20 12:00 40 06/02/20 11:23 83 06/02/20 11:00 59 12 92/61 (71) 100 06/02/20 10:38 62 12 40 06/02/20 10:00 55 14 92/54 (67) 100 06/02/20 09:00 70 14 104/67 (79) 100 06/02/20 08:00 40 06/02/20 08:00 98.2 06/02/20 08:00 83 06/02/20 08:00 70 14 105/58 (74) 100 06/02/20 07:10 79 15 96/60 (72) 100 06/02/20 07:07 67 12 40 06/02/20 07:04 67 12 80/55 (63) 99 06/02/20 07:01 66 12 72/42 (52) 98 06/02/20 07:00 72/42 06/02/20 06:30 78 12 06/02/20 06:00 77 12 102/58 (73) 99 06/02/20 06:00 102/58 06/02/20 05:00 115/61 06/02/20 05:00 80 12 115/61 (79) 99 06/02/20 04:00 79 06/02/20 04:00 98.9 81 16 112/66 (81) 99 06/02/20 04:00 40 06/02/20 04:00 Mechanical Ventilator 06/02/20 04:00 112/66 06/02/20 03:26 83 12 40 06/02/20 03:00 97 16 115/72 (86) 99 06/02/20 03:00 115/72 06/02/20 02:30 92 17 109/66 (80) 99 06/02/20 02:00 109/66 06/02/20 02:00 100 18 112/69 (83) 99 06/02/20 01:00 94 15 100/68 (79) 99 06/02/20 01:00 113/77 06/02/20 00:15 73 94/55 06/02/20 00:00 Mechanical Ventilator 06/02/20 00:00 40 06/02/20 00:00 71 06/02/20 00:00 98.4 74 15 107/67 (80) 96 06/02/20 00:00 86/58 06/01/20 23:30 73 14 40 06/01/20 23:00 115/68 06/01/20 23:00 78 16 115/67 (83) 96 06/01/20 22:00 91/55 06/01/20 22:00 72 15 91/63 (72) 94 06/01/20 21:00 109/58 06/01/20 21:00 74 12 109/56 (73) 94 06/01/20 20:07 92/53 06/01/20 20:06 92/53 06/01/20 20:00 Mechanical Ventilator 06/01/20 20:00 98.8 67 12 99/57 (71) 97 06/01/20 20:00 40 06/01/20 20:00 77 06/01/20 20:00 98/64 06/01/20 19:30 65 12 40 06/01/20 19:00 96/54 06/01/20 19:00 71 14 92/53 (66) 98 06/01/20 18:15 97/57 06/01/20 18:00 97/57 06/01/20 18:00 88 14 127/71 (89) 97 06/01/20 17:16 83 16 72/53 (59) 97 06/01/20 17:00 82/52 06/01/20 17:00 86 15 109/63 (78) 80 06/01/20 16:00 98.1 72 17 89/53 (65) 100 06/01/20 16:00 100/60 06/01/20 16:00 100 06/01/20 16:00 70 06/01/20 16:00 Mechanical Ventilator 06/01/20 15:52 84 12 99 06/01/20 15:44 86 13 40 06/01/20 15:30 101/60 06/01/20 14:00 81 19 123/64 (83) 99 06/01/20 14:00 116/62 I&O Intake and Output 06/01/20 06/02/20 19:00 07:00 Intake Total 1067.250 ml 1145.776 ml Output Total 1250 ml 1265 ml Balance -182.750 ml -119.224 ml IV Total 1067.250 ml 1145.776 ml Output Urine Total 1250 ml 1265 ml # Bowel Movements 4 Dressing: dry Cardiovascular: RSR Respiratory: clear Abdomen: soft, non-tender, present bowel sounds Extremities: no edema, no tenderness, no cyanosis Laboratory Tests Test 06/01/20 18:09 06/02/20 04:30 POC Whole Blood Glucose Pending White Blood Count 4.3 K/UL (4.8-10.8) L Red Blood Count 3.02 M/UL (4.20-5.40) L Hemoglobin 9.3 G/DL (12.0-16.0) L Hematocrit 27.2 % (37.0-47.0) L Mean Corpuscular Volume 90 FL (80-99) Mean Corpuscular Hemoglobin 30.7 PG (27.0-31.0) Mean Corpuscular Hemoglobin Concent 34.1 G/DL (32.0-36.0) Red Cell Distribution Width 13.3 % (11.6-14.8) Platelet Count 159 K/UL (150-450) Mean Platelet Volume 7.4 FL (6.5-10.1) Neutrophils (%) (Auto) 79.1 % (45.0-75.0) H Lymphocytes (%) (Auto) 11.4 % (20.0-45.0) L Monocytes (%) (Auto) 7.5 % (1.0-10.0) Eosinophils (%) (Auto) 1.2 % (0.0-3.0) Basophils (%) (Auto) 0.8 % (0.0-2.0) Sodium Level 140 MMOL/L (136-145) Potassium Level 3.1 MMOL/L (3.5-5.1) L Chloride Level 104 MMOL/L (98-107) Carbon Dioxide Level 28 MMOL/L (21-32) Anion Gap 8 mmol/L (5-15) Blood Urea Nitrogen 13 mg/dL (7-18) Creatinine 0.5 MG/DL (0.55-1.30) L Estimat Glomerular Filtration Rate > 60 mL/min (>60) Glucose Level 90 MG/DL (74-106) Calcium Level 9.2 MG/DL (8.5-10.1) Phosphorus Level 2.4 MG/DL (2.5-4.9) L Magnesium Level 1.7 MG/DL (1.8-2.4) L Plan Problems: (1) Hypernatremia (2) Renal failure (3) Respiratory failure (4) Sepsis Assessment & Plan: COVID + leukocytosis anemia electrolytes abnormal on iv fluids renal input appreciated cxr noted abx as per ID will follow with recs Will likely need trach difficult weaning conservatorship working with case management social work to figure out goals of care s/p peg and trach improving much more comfortable Interim placement of orogastric tube, also documented on recent abdominal radiograph. Stable satisfactory position of endotracheal tube and right jugular central venous catheter. There is increased pleural fluid and likely left basilar consolidation/atelectasis. The right lung and pleural space remain clear. Impression: Increasing left pleural fluid and likely basilar consolidation/atelectasis. Interim orogastric intubation DAILY ESTIMATED NEEDS: Needs based on Pulmonary, DM, wounds 66.6kg 25-30 kcals/kg [id number] total kcals 1.25-1.5 g protein/kg 83-100 g total protein 20-25 mL/kg 6830-1505 total fluid mLs NUTRITION DIAGNOSIS: Swallowing difficulty r/t dysphagia as evidenced by h/o CVA, pt is GT dep, currently ICU status, now intubated, off pressor support, GT feeds initiated. CURRENT TF:Glucerna 1.2 @45ml/hr ENTERAL NUTRITION RECOMMENDATIONS: As medically able: GLUCERNA 1.5 goal of 45ml/hr x24 hrs to provide 1080ml, 1620 kcal, 89g pro, 820ml free H2O -> as medically able without aspiration risk start Glucerna 1.5 @low rate 25ml/hr for 6 hrs. Advance as tolerated 10ml/hr q4-6 hrs to goal. - Flush per MD, HOB over 30 degrees. ---- If not hemodynamically stable, rec trophic feeds of 5-10ml/hr to maintain gut integrity. ADDITIONAL RECOMMENDATIONS: 1) Obtain an accurate calibrated bed scale wt 2) F/up w/ H&P 3) With active TF orders, add JASMYN BID for noted DTPI wounds 4) TF recs as above when off bipap and w/ hemodynamic stability -> Now intubated, off pressors, on GT feeds. he spleen size is normal. The gallbladder contains sludge. No stones. No wall thickening nor pericholecystic fluid. Common bile duct measures 4 mm in diameter. Small amount free fluid is seen adjacent to the liver and spleen Impression: Gallbladder sludge. Negative for dilated bile ducts Normal appearing liver and spleen Patient with respiratory failure intubated on support unable to wean safely. A tracheostomy in this case would be indicated and recommended. Patient is full code but conserved. Given her condition waiting a significant period of time is at high risk for her given the risk for extubation duration of tube and worsening with her ET tube. A trach would be functional manageable for her and recommended. Unfortunately waiting for the time. Would be advisable and discussed with the social workers showcase maker and medical teams. Lisw as well. ICU team as well. We will proceed with tracheostomy in patient's best interest given her CODE STATUS and wishes and care plan. i have been asked by GI and medical teams to place PEG as well. after careful evaluation I agree with medical teams that patient would also benefit from feeding tube access. given her condition, Covid status, care plan, goals of care, will place peg at same time of trach to minimize exposure and OR time and limit procedure risks for patient. (5) Elevated d-dimer (6) COVID-19 Assessment & Plan: ++ (7) Pressure ulcer Assessment & Plan: Pt presented on admission with multiple Pressure injuries.DTPI noted to R Buttocks (L)3.8cm x (W)3.4cm. Base of wound is purpuric,fluctuant with surrounding maroon and indurated borders. DTPI Upper L Buttocks(L)5.5cm x (W)4cm. Base of wound is maroon and indurated. Borders are irregular. Non-Blanchable erythema without induration/fluctuance L lower buttocks(L)4cm x (W)7cm. R and L heels are soft but blanchable. Erosion noted at peristomal GT site. Site is erythematous and excoriated. Small amt. sanguineous exudate. Tx.Plan: Apply Moisture Barrier Paste to Sacrum, R and L Buttocks. Cover each area with Optifoam drsg. Change every 3 days and prn. Apply Moisture Barrier Paste to R and L Ischial tuberosities with each incontinence care. Apply Cavilon Skin Barrier to both heels. Cover each heel and malleoli with Optifoam drsg. Change every 7 days and prn. Reposition at least every 2hours or as tolerated. Off-load heels with pillow. APM/DARIN Mattress overlay. Apply Zinc Oxide Paste TID to GT site. Leave open to Air. (8) Dementia (9) CVA (cerebral vascular accident) (10) T2DM (type 2 diabetes mellitus) (11) Gastrostomy present (12) COVID-19 (13) Rapid atrial fibrillation Paul Garcia Jun 02, 2020 13:58
--- NOTE | 2020-06-02 14:00 | NUR ---
NURSE NOTES: Pt repositioned. Dopa gtt remains at 4 mcg/kg/min - unable to titrate down at this time. SBP 90-95
--- NOTE | 2020-06-02 14:04 | NUR ---
*-*DISCHARGE PLANNING*-* PATIENT HAS BEEN ACCEPTED TO: [facility] P: [phone] S/W LALO, WHO GAVE ROOM# 8.B SKILLED. ~~~~~~~~~NEED DISCHARGE ORDER~~~~~~~~~~~~~~~~~
--- NOTE | 2020-06-02 14:25 | General Progress Note ---
Subjective ROS Limited/Unobtainable: No Allergies: Coded Allergies: DIVALPROEX SODIUM (Verified Allergy, Unknown, 05/14/20) PENICILLINS (Verified Allergy, Unknown, 05/14/20) Objective Last 24 Hour Vital Signs Date Time Temp Pulse Resp B/P (MAP) Pulse Ox O2 Delivery O2 Flow Rate FiO2 06/02/20 14:00 60 14 98/50 (66) 100 06/02/20 13:00 53 14 83/41 (55) 99 06/02/20 12:00 98.7 60 13 90/49 (63) 99 06/02/20 12:00 40 06/02/20 11:23 83 06/02/20 11:00 59 12 92/61 (71) 100 06/02/20 10:38 62 12 40 06/02/20 10:00 55 14 92/54 (67) 100 06/02/20 09:00 70 14 104/67 (79) 100 06/02/20 08:00 40 06/02/20 08:00 98.2 06/02/20 08:00 83 06/02/20 08:00 70 14 105/58 (74) 100 06/02/20 07:10 79 15 96/60 (72) 100 06/02/20 07:07 67 12 40 06/02/20 07:04 67 12 80/55 (63) 99 06/02/20 07:01 66 12 72/42 (52) 98 06/02/20 07:00 72/42 06/02/20 06:30 78 12 06/02/20 06:00 77 12 102/58 (73) 99 06/02/20 06:00 102/58 06/02/20 05:00 115/61 06/02/20 05:00 80 12 115/61 (79) 99 06/02/20 04:00 79 06/02/20 04:00 98.9 81 16 112/66 (81) 99 06/02/20 04:00 40 06/02/20 04:00 Mechanical Ventilator 06/02/20 04:00 112/66 06/02/20 03:26 83 12 40 06/02/20 03:00 97 16 115/72 (86) 99 06/02/20 03:00 115/72 06/02/20 02:30 92 17 109/66 (80) 99 06/02/20 02:00 109/66 06/02/20 02:00 100 18 112/69 (83) 99 06/02/20 01:00 94 15 100/68 (79) 99 06/02/20 01:00 113/77 06/02/20 00:15 73 94/55 06/02/20 00:00 Mechanical Ventilator 06/02/20 00:00 40 06/02/20 00:00 71 06/02/20 00:00 98.4 74 15 107/67 (80) 96 06/02/20 00:00 86/58 06/01/20 23:30 73 14 40 06/01/20 23:00 115/68 06/01/20 23:00 78 16 115/67 (83) 96 06/01/20 22:00 91/55 06/01/20 22:00 72 15 91/63 (72) 94 06/01/20 21:00 109/58 06/01/20 21:00 74 12 109/56 (73) 94 06/01/20 20:07 92/53 06/01/20 20:06 92/53 06/01/20 20:00 Mechanical Ventilator 06/01/20 20:00 98.8 67 12 99/57 (71) 97 06/01/20 20:00 40 06/01/20 20:00 77 06/01/20 20:00 98/64 06/01/20 19:30 65 12 40 06/01/20 19:00 96/54 06/01/20 19:00 71 14 92/53 (66) 98 06/01/20 18:15 97/57 06/01/20 18:00 97/57 06/01/20 18:00 88 14 127/71 (89) 97 06/01/20 17:16 83 16 72/53 (59) 97 06/01/20 17:00 82/52 06/01/20 17:00 86 15 109/63 (78) 80 06/01/20 16:00 98.1 72 17 89/53 (65) 100 06/01/20 16:00 100/60 06/01/20 16:00 100 06/01/20 16:00 70 06/01/20 16:00 Mechanical Ventilator 06/01/20 15:52 84 12 99 06/01/20 15:44 86 13 40 06/01/20 15:30 101/60 Intake and Output 06/01/20 06/02/20 19:00 07:00 Intake Total 1067.250 ml 1145.776 ml Output Total 1250 ml 1265 ml Balance -182.750 ml -119.224 ml IV Total 1067.250 ml 1145.776 ml Output Urine Total 1250 ml 1265 ml # Bowel Movements 4 Laboratory Tests 06/01/20 18:09: POC Whole Blood Glucose [Pending] 06/02/20 04:30: White Blood Count 4.3L, Red Blood Count 3.02L, Hemoglobin 9.3L, Hematocrit 27.2L , Mean Corpuscular Volume 90, Mean Corpuscular Hemoglobin 30.7, Mean Corpuscular Hemoglobin Concent 34.1, Red Cell Distribution Width 13.3, Platelet Count 159, Mean Platelet Volume 7.4, Neutrophils (%) (Auto) 79.1H, Lymphocytes (%) (Auto) 11.4L, Monocytes (%) (Auto) 7.5, Eosinophils (%) (Auto) 1.2, Basophils (%) (Auto) 0.8, Sodium Level 140, Potassium Level 3.1L, Chloride Level 104, Carbon Dioxide Level 28, Anion Gap 8, Blood Urea Nitrogen 13, Creatinine 0.5L, Estimat Glomerular Filtration Rate > 60, Glucose Level 90, Calcium Level 9.2, Phosphorus Level 2.4L, Magnesium Level 1.7L Height (Feet): 5 Height (Inches): 5.00 Weight (Pounds): 142 General Appearance: no apparent distress EENT: normal ENT inspection Neck: supple Cardiovascular: normal rate Respiratory/Chest: decreased breath sounds Abdomen: normal bowel sounds, non tender, soft Extremities: non-tender Assessment/Plan Status: stable Assessment/Plan: 1. History of CVA. 2. Dementia. 3. Dysphagia with G-tube. 4. Cachexia. 5. Diabetes. 6. Pressure ulcers. 7. Hypothyroidism. 8. Legal blindness. 9. Currently COVID positive. s/p peg and trach GTF monitor for residuals Jhon Matos MD Jun 02, 2020 14:25
--- NOTE | 2020-06-02 14:40 | NUR ---
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 the letter with two doctors; signatures and MD progress notes to PG [email or web address] [email or web address]
--- NOTE | 2020-06-02 15:00 | NUR ---
NURSE NOTES: covid swab collected and sent down to lab for processing.
--- NOTE | 2020-06-02 16:00 | NUR ---
NURSE NOTES: Pt cleaned and repositioned. Remains afebrile. No distress noted. Dopa gtt currently at 2 mcg/kg/min. Will continue monitoring.
--- NOTE | 2020-06-02 18:00 | NUR ---
NURSE NOTES: Pt repositioned. No distress noted.
--- NOTE | 2020-06-02 19:12 | NUR ---
RESPIRATORY NOTE: received pt on AC 12, 500VT, 40%, PEEP +5. Pt is trach-dependent w/ a cuffed, Shiley 8 tube. Pt asleep/disoriented. B/S camryn. rhonchi, sxn moderate amounts of thick/thin, jim-yellow secretions w/ occasional blood clots. Vent plugged into red outlet, ambubag at bedside. Pt in no apparent distress at this time. Will continue to monitor pt.
--- NOTE | 2020-06-02 19:22 | NUR ---
NURSE HAND-OFF REPORT: Latest Vital Signs: Temperature 98.2 , Pulse 73 , B/P 103 /57 , Respiratory Rate 14 , O2 SAT 98 , Mechanical Ventilator. EKG Rhythm: Sinus Rhythm Rhythm change?: N MD Notified?: n/a MD Response: n/a Latest Garza Fall Score: 50 Fall Risk: High Risk Safety Measures: Call light Within Reach, Bed Alarm Zone 1, Side Rails Side Rails x2, Bed position Low and Locked. Fall Precautions: Door Sign Yellow Socks and Gown Report given to SARA Patel.
--- NOTE | 2020-06-02 19:43 | NUR ---
NURSE NOTES: received report from shelly bustamante pt s/p trach and peg today no acute resp destress noted hr 58-sr tolerating tube feeding no residual reposition and suction
[2020-06-02] MEDS: Dyna-Hex 2% Top Sol 2oz TOPIC SCH (20:55)
--- NOTE | 2020-06-02 22:00 | NUR ---
NURSE NOTES: reposition and suction
[2020-06-03] VITALS (33 sets, daily range): BP systolic 98–126; BP diastolic 51–75
--- NOTE | 2020-06-03 | NUR ---
NURSE NOTES: bs110 no coverage
[2020-06-03] MEDS: Vasopressin 100 UNITS in NS 95 ML IV SCH (00:15)
[2020-06-03] MEDS: Phenylephrine 100 MG in D5W 240 ML IV SCH (00:15)
--- NOTE | 2020-06-03 04:00 | NUR ---
NURSE NOTES: complete bed bath oral care and back care done
[2020-06-03] MEDS: Meropenem 1 GM in NS 55 ML IVPB SCH (05:00)
[2020-06-03] MEDS: DOPamine 400mg/250ml 250 ML IV SCH ×2 (05:01→17:32)
[2020-06-03 05:23] LABS: BASOPHILS % (AUTO) 0.7 % (0.0-2.0); EOSINOPHILS % (AUTO) 1.2 % (0.0-3.0); HEMATOCRIT 26.8 % (37.0-47.0); HEMOGLOBIN 9.1 G/DL (12.0-16.0); LYMPHOCYTES % (AUTO) 11.9 % (20.0-45.0); MEAN CORPUSCULAR VOLUME 90 FL (80-99); MONOCYTES % (AUTO) 9.7 % (1.0-10.0); NEUTROPHILS % (AUTO) 76.6 % (45.0-75.0); PLATELET COUNT 171 K/UL (150-450); RED BLOOD COUNT 2.99 M/UL (4.20-5.40); RED CELL DISTRIBUTION WIDTH 13.4 % (11.6-14.8); WHITE BLOOD COUNT 4.4 K/UL (4.8-10.8)
[2020-06-03 05:38] LABS: ANION GAP 8 mmol/L (5-15); BLOOD UREA NITROGEN 19 mg/dL (7-18); CARBON DIOXIDE 27 MMOL/L (21-32); CHLORIDE 106 MMOL/L (98-107); CREATININE 0.5 MG/DL (0.55-1.30); PHOSPHORUS 3.5 MG/DL (2.5-4.9); POTASSIUM 3.6 MMOL/L (3.5-5.1); SODIUM 140 MMOL/L (136-145)
[2020-06-03] MEDS: NovoLOG Insulin Flexpen SUBQ SCH ×4 (05:53→17:46)
--- NOTE | 2020-06-03 06:00 | NUR ---
NURSE NOTES: [id number]
--- NOTE | 2020-06-03 06:29 | General Progress Note ---
Subjective ROS Limited/Unobtainable: Yes Allergies: Coded Allergies: DIVALPROEX SODIUM (Verified Allergy, Unknown, 05/14/20) PENICILLINS (Verified Allergy, Unknown, 05/14/20) Subjective events noted and interval notes reviewed glucose values are stable Item Value Date Time Bedside Blood Glucose 125 mg/dl H 06/03/20 0553 Bedside Blood Glucose 110 mg/dl 06/03/20 0000 Bedside Blood Glucose 95 mg/dl 06/02/20 1800 Bedside Blood Glucose 73 mg/dl 06/02/20 1244 Bedside Blood Glucose 90 mg/dl 06/02/20 0600 Bedside Blood Glucose 111 mg/dl 06/02/20 0000 Objective Last 24 Hour Vital Signs Date Time Temp Pulse Resp B/P (MAP) Pulse Ox O2 Delivery O2 Flow Rate FiO2 06/03/20 05:01 117/67 06/03/20 04:00 40 06/03/20 03:30 73 14 103/64 (77) 96 06/03/20 03:09 72 12 40 06/03/20 03:00 72 13 103/53 (70) 98 06/03/20 02:30 72 14 112/58 (76) 98 06/03/20 02:00 74 15 100/75 (83) 96 06/03/20 01:30 73 16 100/51 (67) 97 06/03/20 01:00 76 15 99/69 (79) 98 06/03/20 00:15 73 82/47 06/03/20 00:00 103/53 06/03/20 00:00 100.3 73 17 102/53 (69) 96 06/03/20 00:00 Mechanical Ventilator 06/03/20 00:00 76 06/03/20 00:00 40 06/02/20 23:05 78 14 40 06/02/20 23:00 75 16 95/47 (63) 98 06/02/20 23:00 82/47 06/02/20 22:00 79 17 96/57 (70) 98 06/02/20 22:00 96/57 06/02/20 21:00 74 17 106/53 (70) 98 06/02/20 21:00 106/69 06/02/20 20:00 40 06/02/20 20:00 70 06/02/20 20:00 Mechanical Ventilator 9/24/20 20:00 104/56 06/02/20 20:00 99.4 74 16 104/55 (71) 98 06/02/20 19:10 73 14 40 06/02/20 19:00 106/65 06/02/20 19:00 74 14 103/57 (72) 98 06/02/20 18:30 68 13 124/62 (82) 99 06/02/20 18:00 72 14 113/65 (81) 99 06/02/20 18:00 71 15 113/65 (81) 99 06/02/20 18:00 113/65 06/02/20 17:30 64 13 119/59 (79) 99 06/02/20 17:00 95/52 06/02/20 17:00 78 14 95/52 (66) 97 06/02/20 16:45 77 13 122/68 (86) 96 06/02/20 16:30 70 15 143/105 (118) 97 06/02/20 16:15 71 16 124/56 (78) 98 06/02/20 16:00 40 06/02/20 16:00 Mechanical Ventilator 06/02/20 16:00 98.2 71 14 92/49 (63) 97 06/02/20 16:00 92/49 06/02/20 16:00 71 06/02/20 15:45 67 12 101/56 (71) 98 06/02/20 15:30 64 13 98/62 (74) 98 06/02/20 15:23 64 15 40 06/02/20 15:15 64 13 95/59 (71) 98 06/02/20 15:00 56 12 93/51 (65) 100 06/02/20 15:00 93/51 06/02/20 14:45 59 14 98/56 (70) 99 06/02/20 14:30 59 14 91/59 (70) 99 06/02/20 14:15 59 14 92/52 (65) 99 06/02/20 14:00 98/50 06/02/20 14:00 60 14 98/50 (66) 100 06/02/20 13:45 76 17 95/51 (66) 98 06/02/20 13:30 51 12 91/48 (62) 99 06/02/20 13:15 68 13 92/57 (69) 97 06/02/20 13:00 53 14 83/41 (55) 99 06/02/20 13:00 81/49 06/02/20 12:45 75 15 95/62 (73) 98 06/02/20 12:30 79 18 109/67 (81) 99 06/02/20 12:15 58 18 102/62 (75) 99 06/02/20 12:00 98.7 60 13 90/49 (63) 99 06/02/20 12:00 89/49 06/02/20 12:00 40 06/02/20 12:00 Mechanical Ventilator 06/02/20 11:45 58 16 97/58 (71) 99 06/02/20 11:30 59 13 100/52 (68) 99 06/02/20 11:23 83 06/02/20 11:15 59 13 98/54 (69) 99 06/02/20 11:00 92/61 06/02/20 11:00 59 12 92/61 (71) 100 06/02/20 10:45 57 14 91/58 (69) 99 06/02/20 10:38 62 12 40 06/02/20 10:30 58 12 92/54 (67) 99 06/02/20 10:15 59 14 96/56 (69) 100 06/02/20 10:00 85/51 06/02/20 10:00 55 14 92/54 (67) 100 06/02/20 09:45 79 15 94/59 (71) 98 06/02/20 09:30 71 15 112/60 (77) 100 06/02/20 09:15 97 21 110/65 (80) 100 06/02/20 09:00 104/67 06/02/20 09:00 70 14 104/67 (79) 100 06/02/20 08:45 70 16 102/65 (77) 100 06/02/20 08:30 72 14 103/58 (73) 100 06/02/20 08:15 70 14 101/59 (73) 100 06/02/20 08:00 40 06/02/20 08:00 Mechanical Ventilator 06/02/20 08:00 105/58 06/02/20 08:00 98.2 06/02/20 08:00 83 06/02/20 08:00 70 14 105/58 (74) 100 06/02/20 07:45 72 13 100 06/02/20 07:30 69 12 102/57 (72) 100 06/02/20 07:15 70 12 100/59 (73) 99 06/02/20 07:10 79 15 96/60 (72) 100 06/02/20 07:07 67 12 40 06/02/20 07:04 67 12 80/55 (63) 99 06/02/20 07:01 66 12 72/42 (52) 98 06/02/20 07:00 72/42 06/02/20 06:30 78 12 Intake and Output 06/02/20 06/03/20 19:00 07:00 Intake Total 1191.832 ml 476.5 ml Output Total 1175 ml 440 ml Balance 16.832 ml 36.5 ml Free Water 20 ml 30 ml IV Total 751.832 ml 86.5 ml Tube Feeding 420 ml 360 ml Output Urine Total 1175 ml 440 ml # Bowel Movements 2 2 Laboratory Tests 06/02/20 22:23: POC Whole Blood Glucose [Pending] 06/03/20 04:00: White Blood Count 4.4L, Red Blood Count 2.99L, Hemoglobin 9.1L, Hematocrit 26.8L , Mean Corpuscular Volume 90, Mean Corpuscular Hemoglobin 30.3, Mean Corpuscular Hemoglobin Concent 33.8, Red Cell Distribution Width 13.4, Platelet Count 171, Mean Platelet Volume 6.7, Neutrophils (%) (Auto) 76.6H, Lymphocytes (%) (Auto) 11.9L, Monocytes (%) (Auto) 9.7, Eosinophils (%) (Auto) 1.2, Basophils (%) (Auto) 0.7, Sodium Level 140, Potassium Level 3.6, Chloride Level 106, Carbon Dioxide Level 27, Anion Gap 8, Blood Urea Nitrogen 19H, Creatinine 0.5L, Estimat Glomerular Filtration Rate > 60, Glucose Level 120H, Calcium Level 9.0, Phosphorus Level 3.5, Magnesium Level 1.8 Height (Feet): 5 Height (Inches): 5.00 Weight (Pounds): 142 General Appearance: other - on vent EENT: other - trach Abdomen: other - PEG Objective Current Medications Medications (Trade) Dose Ordered Sig/Morgan Route PRN Reason Start Time Stop Time Status Last Admin Dose Admin Acetaminophen (Tylenol) 650 mg Q4H PRN GT Temp >100.5 05/16/20 06:15 06/15/20 06:14 05/31/20 13:15 Acetaminophen (Tylenol) 650 mg Q4H PRN RECTAL Temp >100.5 05/16/20 19:45 06/15/20 19:44 05/17/20 18:30 Atropine Sulfate (Atropine 0.4mg/ ml) 0.4 mg Q2HR PRN IVP HR <45 05/29/20 21:30 06/28/20 19:24 05/30/20 22:39 Chlorhexidine Gluconate (Lilliam-Hex 2%) 1 applic DAILY@2000 TOPIC 05/15/20 20:00 08/13/20 19:59 06/02/20 20:55 Dextrose (Dextrose 50%) 25 ml Q30M PRN IV Hypoglycemia 05/22/20 00:00 08/20/20 00:00 Dextrose (Dextrose 50%) 50 ml Q30M PRN IV Hypoglycemia 05/22/20 00:00 08/20/20 00:00 Dopamine HCl/ Dextrose 250 ml @ 0 mls/hr Q24H IV 05/31/20 15:15 06/03/20 15:03 06/03/20 05:01 Insulin Aspart (NovoLOG) EVERY 6 HOURS SUBQ 05/22/20 06:00 08/20/20 05:59 05/27/20 05:57 Meropenem 1 gm/ Sodium Chloride 55 ml @ 110 mls/hr Q8HR IVPB 06/02/20 14:00 06/07/20 13:59 06/03/20 05:00 Pantoprazole (Protonix) 40 mg DAILY IV 05/15/20 09:00 06/14/20 08:59 06/02/20 08:48 Phenylephrine HCl 100 mg/Dextrose 250 ml @ 0 mls/hr Q24H IV 05/15/20 00:15 06/03/20 23:59 05/15/20 13:28 Sodium Chloride 1,000 ml @ 75 mls/hr [id number] IV 05/15/20 06:45 06/14/20 06:44 06/03/20 04:05 Vasopressin 100 units/Sodium Chloride 100 ml @ 0 mls/hr Q24H IV 05/15/20 00:15 06/03/20 23:59 Zinc Oxide (Zinc Oxide) 1 applic TIDPRN PRN TOPIC Abdominal cramps 05/20/20 13:00 08/18/20 12:59 Assessment/Plan Problem List: (1) COVID-19 ICD Codes: U07.1 - COVID-19 SNOMED: 621939502 (2) Elevated d-dimer ICD Codes: R79.89 - Other specified abnormal findings of blood chemistry SNOMED: 885899463 (3) Rapid atrial fibrillation ICD Codes: I48.91 - Unspecified atrial fibrillation SNOMED: 022746384 (4) Sepsis ICD Codes: A41.9 - Sepsis, unspecified organism SNOMED: 29499667 (5) Respiratory failure ICD Codes: J96.90 - Respiratory failure, unspecified, unspecified whether with hypoxia or hypercapnia SNOMED: 647400459 (6) Renal failure ICD Codes: N19 - Unspecified kidney failure SNOMED: 51060473 (7) Hypernatremia ICD Codes: E87.0 - Hyperosmolality and hypernatremia SNOMED: 166635579 (8) T2DM (type 2 diabetes mellitus) ICD Codes: E11.9 - Type 2 diabetes mellitus without complications SNOMED: 01504067 Status: stable Assessment/Plan: no need for basal insulin continue Novolog sliding scale every 6 hours hypoglycemia protocol in order Chau Shelley MD Jun 03, 2020 06:29
--- NOTE | 2020-06-03 07:08 | Pulmonology Progress Note ---
Subjective ROS Limited/Unobtainable: Yes Interval Events: Unable to extubtae due to poor mental status; s/p trach and PEG Constitutional: Reports: no symptoms HEENT: Repors: no symptoms Respiratory: Reports: no symptoms Cardiovascular: Reports: no symptoms Gastrointestinal/Abdominal: Reports: no symptoms Genitourinary: Reports: no symptoms Allergies: Coded Allergies: DIVALPROEX SODIUM (Verified Allergy, Unknown, 05/14/20) PENICILLINS (Verified Allergy, Unknown, 05/14/20) All Systems: reviewed and negative except above Objective Last 24 Hour Vital Signs Date Time Temp Pulse Resp B/P (MAP) Pulse Ox O2 Delivery O2 Flow Rate FiO2 06/03/20 06:30 69 12 06/03/20 06:30 80 15 101/53 (69) 96 06/03/20 06:00 68 19 107/58 (74) 98 06/03/20 06:00 101/53 06/03/20 05:30 66 15 112/62 (79) 98 06/03/20 05:01 117/67 06/03/20 05:00 74 14 101/60 (74) 96 06/03/20 05:00 117/67 06/03/20 04:30 70 19 113/67 (82) 96 06/03/20 04:00 Mechanical Ventilator 06/03/20 04:00 80 06/03/20 04:00 98.4 73 102/60 (74) 06/03/20 04:00 113/67 06/03/20 04:00 40 06/03/20 03:30 73 14 103/64 (77) 96 06/03/20 03:09 72 12 40 06/03/20 03:00 72 13 103/53 (70) 98 06/03/20 03:00 103/64 06/03/20 02:30 72 14 112/58 (76) 98 06/03/20 02:00 112/58 06/03/20 02:00 74 15 100/75 (83) 96 06/03/20 01:30 73 16 100/51 (67) 97 06/03/20 01:00 76 15 99/69 (79) 98 06/03/20 01:00 100/51 06/03/20 00:15 73 82/47 06/03/20 00:00 73 17 102/53 (69) 96 06/03/20 00:00 103/53 06/03/20 00:00 100.3 73 17 102/53 (69) 96 06/03/20 00:00 Mechanical Ventilator 06/03/20 00:00 76 06/03/20 00:00 40 06/02/20 23:30 68 19 108/54 (72) 98 06/02/20 23:11 87 17 90/49 (63) 99 06/02/20 23:07 77 14 84/49 (61) 97 06/02/20 23:05 78 14 40 06/02/20 23:00 75 16 95/47 (63) 98 06/02/20 23:00 75 16 82/47 (59) 98 06/02/20 23:00 82/47 06/02/20 22:30 72 14 106/68 (81) 99 06/02/20 22:00 79 17 96/57 (70) 98 06/02/20 22:00 79 17 96/57 (70) 98 06/02/20 22:00 96/57 06/02/20 21:30 73 14 104/61 (75) 98 06/02/20 21:00 74 17 106/53 (70) 98 06/02/20 21:00 74 17 106/53 (70) 98 06/02/20 21:00 106/69 06/02/20 20:30 73 12 113/66 (82) 99 06/02/20 20:00 40 06/02/20 20:00 70 06/02/20 20:00 74 16 104/55 (71) 98 06/02/20 20:00 Mechanical Ventilator 06/02/20 20:00 104/56 06/02/20 20:00 99.4 74 16 104/55 (71) 98 06/02/20 19:30 74 15 106/55 (72) 98 06/02/20 19:10 73 14 40 06/02/20 19:00 74 14 103/57 (72) 98 06/02/20 19:00 106/65 06/02/20 19:00 74 14 103/57 (72) 98 06/02/20 18:30 68 13 124/62 (82) 99 06/02/20 18:00 72 14 113/65 (81) 99 06/02/20 18:00 71 15 113/65 (81) 99 06/02/20 18:00 113/65 06/02/20 17:30 64 13 119/59 (79) 99 06/02/20 17:00 95/52 06/02/20 17:00 78 14 95/52 (66) 97 06/02/20 16:45 77 13 122/68 (86) 96 06/02/20 16:30 70 15 143/105 (118) 97 06/02/20 16:15 71 16 124/56 (78) 98 06/02/20 16:00 40 06/02/20 16:00 Mechanical Ventilator 06/02/20 16:00 98.2 71 14 92/49 (63) 97 06/02/20 16:00 92/49 06/02/20 16:00 71 06/02/20 15:45 67 12 101/56 (71) 98 06/02/20 15:30 64 13 98/62 (74) 98 06/02/20 15:23 64 15 40 06/02/20 15:15 64 13 95/59 (71) 98 06/02/20 15:00 56 12 93/51 (65) 100 06/02/20 15:00 93/51 06/02/20 14:45 59 14 98/56 (70) 99 06/02/20 14:30 59 14 91/59 (70) 99 06/02/20 14:15 59 14 92/52 (65) 99 06/02/20 14:00 98/50 06/02/20 14:00 60 14 98/50 (66) 100 06/02/20 13:45 76 17 95/51 (66) 98 06/02/20 13:30 51 12 91/48 (62) 99 06/02/20 13:15 68 13 92/57 (69) 97 06/02/20 13:00 53 14 83/41 (55) 99 06/02/20 13:00 81/49 06/02/20 12:45 75 15 95/62 (73) 98 06/02/20 12:30 79 18 109/67 (81) 99 06/02/20 12:15 58 18 102/62 (75) 99 06/02/20 12:00 98.7 60 13 90/49 (63) 99 06/02/20 12:00 89/49 9/24/20 12:00 40 06/02/20 12:00 Mechanical Ventilator 06/02/20 11:45 58 16 97/58 (71) 99 06/02/20 11:30 59 13 100/52 (68) 99 06/02/20 11:23 83 06/02/20 11:15 59 13 98/54 (69) 99 06/02/20 11:00 92/61 06/02/20 11:00 59 12 92/61 (71) 100 06/02/20 10:45 57 14 91/58 (69) 99 06/02/20 10:38 62 12 40 06/02/20 10:30 58 12 92/54 (67) 99 06/02/20 10:15 59 14 96/56 (69) 100 06/02/20 10:00 85/51 06/02/20 10:00 55 14 92/54 (67) 100 06/02/20 09:45 79 15 94/59 (71) 98 06/02/20 09:30 71 15 112/60 (77) 100 06/02/20 09:15 97 21 110/65 (80) 100 06/02/20 09:00 104/67 06/02/20 09:00 70 14 104/67 (79) 100 06/02/20 08:45 70 16 102/65 (77) 100 06/02/20 08:30 72 14 103/58 (73) 100 06/02/20 08:15 70 14 101/59 (73) 100 06/02/20 08:00 40 06/02/20 08:00 Mechanical Ventilator 06/02/20 08:00 105/58 06/02/20 08:00 98.2 06/02/20 08:00 83 06/02/20 08:00 70 14 105/58 (74) 100 06/02/20 07:45 72 13 100 06/02/20 07:30 69 12 102/57 (72) 100 06/02/20 07:15 70 12 100/59 (73) 99 06/02/20 07:10 79 15 96/60 (72) 100 Intake and Output 06/02/20 06/03/20 19:00 07:00 Intake Total 1191.832 ml 1030.5 ml Output Total 1175 ml 790 ml Balance 16.832 ml 240.5 ml Free Water 20 ml 80 ml IV Total 751.832 ml 290.5 ml Tube Feeding 420 ml 660 ml Output Urine Total 1175 ml 790 ml # Bowel Movements 2 3 General Appearance: no acute distress HEENT: normocephalic, status post trach Respiratory: chest wall non-tender, lungs clear Cardiovascular: normal peripheral pulses, normal rate Abdomen: normal bowel sounds Microbiology Date/Time Source Procedure Growth Status 06/01/20 18:45 Blood Blood Culture - Preliminary NO GROWTH AFTER 24 HOURS Resulted 06/01/20 18:30 Blood Blood Culture - Preliminary NO GROWTH AFTER 24 HOURS Resulted 05/31/20 19:45 Blood Blood Culture - Preliminary NO GROWTH AFTER 48 HOURS Resulted 05/31/20 16:00 Urine,Clean Catch Urine Culture - Final NO GROWTH AFTER 48 HOURS Complete 05/31/20 14:00 Blood Blood Culture - Final Pseudomonas Aeruginosa - Mdr Complete Laboratory Tests 06/02/20 22:23: POC Whole Blood Glucose [Pending] 06/03/20 04:00: White Blood Count 4.4L, Red Blood Count 2.99L, Hemoglobin 9.1L, Hematocrit 26.8L , Mean Corpuscular Volume 90, Mean Corpuscular Hemoglobin 30.3, Mean Corpuscular Hemoglobin Concent 33.8, Red Cell Distribution Width 13.4, Platelet Count 171, Mean Platelet Volume 6.7, Neutrophils (%) (Auto) 76.6H, Lymphocytes (%) (Auto) 11.9L, Monocytes (%) (Auto) 9.7, Eosinophils (%) (Auto) 1.2, Basophils (%) (Auto) 0.7, Sodium Level 140, Potassium Level 3.6, Chloride Level 106, Carbon Dioxide Level 27, Anion Gap 8, Blood Urea Nitrogen 19H, Creatinine 0.5L, Estimat Glomerular Filtration Rate > 60, Glucose Level 120H, Calcium Level 9.0, Phosphorus Level 3.5, Magnesium Level 1.8 Current Medications Medications (Trade) Dose Ordered Sig/Morgan Route PRN Reason Start Time Stop Time Status Last Admin Dose Admin Acetaminophen (Tylenol) 650 mg Q4H PRN GT Temp >100.5 05/16/20 06:15 06/15/20 06:14 05/31/20 13:15 Acetaminophen (Tylenol) 650 mg Q4H PRN RECTAL Temp >100.5 05/16/20 19:45 06/15/20 19:44 05/17/20 18:30 Atropine Sulfate (Atropine 0.4mg/ ml) 0.4 mg Q2HR PRN IVP HR <45 05/29/20 21:30 06/28/20 19:24 05/30/20 22:39 Chlorhexidine Gluconate (Lilliam-Hex 2%) 1 applic DAILY@2000 TOPIC 05/15/20 20:00 08/13/20 19:59 06/02/20 20:55 Dextrose (Dextrose 50%) 25 ml Q30M PRN IV Hypoglycemia 05/22/20 00:00 08/20/20 00:00 Dextrose (Dextrose 50%) 50 ml Q30M PRN IV Hypoglycemia 05/22/20 00:00 08/20/20 00:00 Dopamine HCl/ Dextrose 250 ml @ 0 mls/hr Q24H IV 05/31/20 15:15 06/03/20 15:03 06/03/20 05:01 Insulin Aspart (NovoLOG) EVERY 6 HOURS SUBQ 05/22/20 06:00 08/20/20 05:59 05/27/20 05:57 Meropenem 1 gm/ Sodium Chloride 55 ml @ 110 mls/hr Q8HR IVPB 06/02/20 14:00 06/07/20 13:59 06/03/20 05:00 Pantoprazole (Protonix) 40 mg DAILY IV 05/15/20 09:00 06/14/20 08:59 06/02/20 08:48 Phenylephrine HCl 100 mg/Dextrose 250 ml @ 0 mls/hr Q24H IV 05/15/20 00:15 06/03/20 23:59 05/15/20 13:28 Sodium Chloride 1,000 ml @ 75 mls/hr [id number] IV 05/15/20 06:45 06/14/20 06:44 06/03/20 04:05 Vasopressin 100 units/Sodium Chloride 100 ml @ 0 mls/hr Q24H IV 05/15/20 00:15 06/03/20 23:59 Zinc Oxide (Zinc Oxide) 1 applic TIDPRN PRN TOPIC Abdominal cramps 05/20/20 13:00 08/18/20 12:59 Assessment/Plan Assessment/Plan IMPRESSION: 1. Acute respiratory failure. 2. Diabetes mellitus with hyperglycemia. 3. Septic shock. 4. Chronic G-tube. 5. Decubitus. 6. History of CHF. DISCUSSION: Continue fluids and antibiotics. Pressors prn S/p trach Will begin weaning On 40% FiO2 DVT and GI prophylaxis. Respiratory precautions due to COVID-[address] Wade. S/p PEG Richard James Omar Syed MD Jun 03, 2020 07:08
--- NOTE | 2020-06-03 07:37 | NUR ---
NURSE HAND-OFF REPORT: Latest Vital Signs: Temperature 98.4 , Pulse 80 , B/P 101 /53 , Respiratory Rate 15 , O2 SAT 96 , Mechanical Ventilator, O2 Flow Rate 12.0 . Vital Sign Comment: EKG Rhythm: Sinus Rhythm Rhythm change?: N Notified?: Marcella Pierce MD Response: 12 Lead results reviewed Latest Garza Fall Score: 50 Fall Risk: High Risk Safety Measures: Call light Within Reach, Bed Alarm Zone 1, Side Rails Side Rails x2, Bed position Low and Locked. Fall Precautions: Yellow Socks Yellow Gown Door Sign Patient Fall Education Report given to shelly bustamante using sbar.
--- NOTE | 2020-06-03 07:38 | NUR ---
NURSE NOTES: Pt received from SARA Patel. Pt opens eyes to auditory stimuli; does not follow commands; withdraws to pain; bilat pupils equal and round 3 mm with sluggish rxn to light. Pt is SR to monitor and storage bin tender with 2+ radial pulses and 1+ dorsalis pedis pulses. Pt is afebrile at this time. Pt received with tracheostomy to vent - shiley 8 AC 12 TV 500 FiO2 40% Peep 5- All lung sounds noted diminished upon auscultation. No bleeding noted from trache site. Abd is round and soft with active bowel sounds to all quadrant. GT noted with dry and intact dressing running Glucerna 1.2 at 60 cc/hr. F/C noted draining yellow urine. Skin alterations noted. Pt has a RIJ TLC with dry ad intact dressing running dopa gtt at 4 mcg/kg/min and 1/2 NS at 75 cc/hr. Pt has [employer] restraints - observed attempting to pull trache tube. radial pulses palpable. ski to both wrists intact without redness. Bed in lowest position, alarm on, side rails up x 2, call light within reach. Will continue to monitor. Addendum: 06/03/20 at 1052 by Marion Graf RN Late entry: pt also observed with 1+ pitting edema to both hands
--- NOTE | 2020-06-03 08:00 | NUR ---
NURSE NOTES: Pt repositioned. Oral care provided.
[2020-06-03] MEDS: Pantoprazole Inj IV SCH (08:48)
--- NOTE | 2020-06-03 09:12 | 48 Hour Post Anesthesia Eval ---
Post Anesthesia Evaluation Procedure: PEG/Trach placement Date of Evaluation: Jun 03, 2020 Time of Evaluation: 09:12 Blood Pressure Systolic: 101 0: 76 Pulse Rate: 54 Respiratory Rate: 12 O2 Sat by Pulse Oximetry: 99 Airway: patent Nausea: No Vomiting: No Hydration Status: adequate Cardiopulmonary Status: see progress not; pt is in the ICU Mental Status/LOC: patient returned to baseline Post-Anesthesia Complications: none Follow-up care needed: N/A Gloria Bowser CRNA Jun 03, 2020 09:12
--- NOTE | 2020-06-03 09:49 | NUR ---
NURSE NOTES: Pilar trial initiated per RT Ole. Pt on CPAP 5 PS 8 FiO2 40% - tolerating weaning so far.
--- NOTE | 2020-06-03 09:49 | NUR ---
RESPIRATORY NOTES PT placed on SBT - CPAP 5, PS 8. PT does not exhibit any signs of respiratory distress. SARA Schultz aware. Will continue to monitor.
--- NOTE | 2020-06-03 10:00 | NUR ---
NURSE NOTES: Pt repositioned. Continues to tolerate weaning. No distress noted. Will continue to monitor.
--- NOTE | 2020-06-03 11:03 | General Progress Note ---
Subjective ROS Limited/Unobtainable: No Allergies: Coded Allergies: DIVALPROEX SODIUM (Verified Allergy, Unknown, 05/14/20) PENICILLINS (Verified Allergy, Unknown, 05/14/20) Objective Last 24 Hour Vital Signs Date Time Temp Pulse Resp B/P (MAP) Pulse Ox O2 Delivery O2 Flow Rate FiO2 06/03/20 10:00 84 19 98/63 (75) 96 06/03/20 10:00 98/63 06/03/20 09:49 40 06/03/20 09:12 54 12 99 06/03/20 09:00 76 15 109/65 (80) 96 06/03/20 09:00 109/65 06/03/20 08:00 40 06/03/20 08:00 103/59 06/03/20 08:00 98.1 76 17 103/59 (74) 96 06/03/20 08:00 Mechanical Ventilator 06/03/20 08:00 74 06/03/20 07:00 92/57 06/03/20 07:00 75 19 40 06/03/20 07:00 77 13 99/51 (67) 97 06/03/20 06:30 69 12 06/03/20 06:30 80 15 101/53 (69) 96 06/03/20 06:00 68 19 107/58 (74) 98 06/03/20 06:00 101/53 06/03/20 05:30 66 15 112/62 (79) 98 06/03/20 05:01 117/67 06/03/20 05:00 74 14 101/60 (74) 96 06/03/20 05:00 117/67 06/03/20 04:30 70 19 113/67 (82) 96 06/03/20 04:00 Mechanical Ventilator 06/03/20 04:00 80 06/03/20 04:00 98.4 73 102/60 (74) 06/03/20 04:00 113/67 06/03/20 04:00 40 06/03/20 03:30 73 14 103/64 (77) 96 06/03/20 03:09 72 12 40 06/03/20 03:00 72 13 103/53 (70) 98 06/03/20 03:00 103/64 06/03/20 02:30 72 14 112/58 (76) 98 06/03/20 02:00 112/58 06/03/20 02:00 74 15 100/75 (83) 96 06/03/20 01:30 73 16 100/51 (67) 97 06/03/20 01:00 76 15 99/69 (79) 98 06/03/20 01:00 100/51 06/03/20 00:15 73 82/47 06/03/20 00:00 73 17 102/53 (69) 96 06/03/20 00:00 103/53 06/03/20 00:00 100.3 73 17 102/53 (69) 96 06/03/20 00:00 Mechanical Ventilator 06/03/20 00:00 76 06/03/20 00:00 40 06/02/20 23:30 68 19 108/54 (72) 98 06/02/20 23:11 87 17 90/49 (63) 99 06/02/20 23:07 77 14 84/49 (61) 97 06/02/20 23:05 78 14 40 06/02/20 23:00 75 16 95/47 (63) 98 06/02/20 23:00 75 16 82/47 (59) 98 06/02/20 23:00 82/47 06/02/20 22:30 72 14 106/68 (81) 99 06/02/20 22:00 79 17 96/57 (70) 98 06/02/20 22:00 79 17 96/57 (70) 98 06/02/20 22:00 96/57 06/02/20 21:30 73 14 104/61 (75) 98 06/02/20 21:00 74 17 106/53 (70) 98 06/02/20 21:00 74 17 106/53 (70) 98 06/02/20 21:00 106/69 06/02/20 20:30 73 12 113/66 (82) 99 06/02/20 20:00 40 06/02/20 20:00 70 06/02/20 20:00 74 16 104/55 (71) 98 06/02/20 20:00 Mechanical Ventilator 06/02/20 20:00 104/56 06/02/20 20:00 99.4 74 16 104/55 (71) 98 06/02/20 19:30 74 15 106/55 (72) 98 06/02/20 19:10 73 14 40 06/02/20 19:00 74 14 103/57 (72) 98 06/02/20 19:00 106/65 06/02/20 19:00 74 14 103/57 (72) 98 06/02/20 18:30 68 13 124/62 (82) 99 06/02/20 18:00 72 14 113/65 (81) 99 06/02/20 18:00 71 15 113/65 (81) 99 06/02/20 18:00 113/65 06/02/20 17:30 64 13 119/59 (79) 99 06/02/20 17:00 95/52 06/02/20 17:00 78 14 95/52 (66) 97 06/02/20 16:45 77 13 122/68 (86) 96 06/02/20 16:30 70 15 143/105 (118) 97 06/02/20 16:15 71 16 124/56 (78) 98 06/02/20 16:00 40 06/02/20 16:00 Mechanical Ventilator 06/02/20 16:00 98.2 71 14 92/49 (63) 97 06/02/20 16:00 92/49 06/02/20 16:00 71 06/02/20 15:45 67 12 101/56 (71) 98 06/02/20 15:30 64 13 98/62 (74) 98 06/02/20 15:23 64 15 40 06/02/20 15:15 64 13 95/59 (71) 98 06/02/20 15:00 56 12 93/51 (65) 100 06/02/20 15:00 93/51 06/02/20 14:45 59 14 98/56 (70) 99 06/02/20 14:30 59 14 91/59 (70) 99 06/02/20 14:15 59 14 92/52 (65) 99 06/02/20 14:00 98/50 06/02/20 14:00 60 14 98/50 (66) 100 06/02/20 13:45 76 17 95/51 (66) 98 06/02/20 13:30 51 12 91/48 (62) 99 06/02/20 13:15 68 13 92/57 (69) 97 06/02/20 13:00 53 14 83/41 (55) 99 06/02/20 13:00 81/49 06/02/20 12:45 75 15 95/62 (73) 98 06/02/20 12:30 79 18 109/67 (81) 99 06/02/20 12:15 58 18 102/62 (75) 99 06/02/20 12:00 98.7 60 13 90/49 (63) 99 06/02/20 12:00 89/49 06/02/20 12:00 40 06/02/20 12:00 Mechanical Ventilator 06/02/20 11:45 58 16 97/58 (71) 99 06/02/20 11:30 59 13 100/52 (68) 99 06/02/20 11:23 83 06/02/20 11:15 59 13 98/54 (69) 99 Intake and Output 06/02/20 06/03/20 18:59 06:59 Intake Total 1211.332 ml 1095.0 ml Output Total 1235 ml 840 ml Balance -23.668 ml 255.0 ml Free Water 20 ml 80 ml IV Total 831.332 ml 295.0 ml Tube Feeding 360 ml 720 ml Output Urine Total 1235 ml 840 ml # Bowel Movements 2 3 Laboratory Tests 06/02/20 22:23: POC Whole Blood Glucose [Pending] 06/03/20 04:00: White Blood Count 4.4L, Red Blood Count 2.99L, Hemoglobin 9.1L, Hematocrit 26.8L , Mean Corpuscular Volume 90, Mean Corpuscular Hemoglobin 30.3, Mean Corpuscular Hemoglobin Concent 33.8, Red Cell Distribution Width 13.4, Platelet Count 171, Mean Platelet Volume 6.7, Neutrophils (%) (Auto) 76.6H, Lymphocytes (%) (Auto) 11.9L, Monocytes (%) (Auto) 9.7, Eosinophils (%) (Auto) 1.2, Basophils (%) (Auto) 0.7, Sodium Level 140, Potassium Level 3.6, Chloride Level 106, Carbon Dioxide Level 27, Anion Gap 8, Blood Urea Nitrogen 19H, Creatinine 0.5L, Estimat Glomerular Filtration Rate > 60, Glucose Level 120H, Calcium Level 9.0, Phosphorus Level 3.5, Magnesium Level 1.8 Height (Feet): 5 Height (Inches): 5.00 Weight (Pounds): 142 General Appearance: lethargic EENT: normal ENT inspection Neck: supple Cardiovascular: normal rate Respiratory/Chest: decreased breath sounds Abdomen: normal bowel sounds, non tender, soft Extremities: non-tender Assessment/Plan Status: stable Assessment/Plan: 1. History of CVA. 2. Dementia. 3. Dysphagia with G-tube. 4. Cachexia. 5. Diabetes. 6. Pressure ulcers. 7. Hypothyroidism. 8. Legal blindness. 9. Currently COVID positive. s/p peg and trach GTF monitor for residuals fu labs supportive care Jhon Matos MD Jun 03, 2020 11:03
--- NOTE | 2020-06-03 11:07 | Infectious Diseases Prog Note ---
Assessment/Plan 70 yo female with PMHx of Dementia, DM, CVA ( S/P PEG), COVID 19 infection and pressure ulcers. Septic Shock-combination cardiogenic and septic; -back on pressors, decreasing Gram positive bacteremia- contaminant; recurrent -05/31 Bcx 1/2 Gram variable rods -05/14 Bcx 1/4 S. haemolyticus; 05/17 Bcx Neg UTI, sp rx UA (+); ucx 10-20k P. mirabilis (S Ceftriaxone, Cefepime) PNA, superimposed bacterial, sp rx Recent COVID19 pna- now repeat neg x2 -05/27 CXR: Previously seen left lung atelectasis has nearly completely resolved. Retrocardiac atelectasis without or with some component of consolidation. Low lung volumes with bronchovascular crowding. -05/26 CXR: Complete opacification of the left hemithorax with mediastinal shift to the left likely due to complete atelectasis of the left lung perhaps from mucous plugging. rapid COVID PCR neg -05/25 sp cx MDR PsA (I Ceftazidime, Colistin, Polymixin B); suspect colonizer SARS-COV2 neg -05/24 SARS-COV2 pCR inconclusive -05/23 CXR: Worsening aeration with increasing hazy opacification of the left lung base which may related to increased layering pleural effusion and adjacent atelectasis/consolidation. -05/19 CXR: Increasing left pleural fluid and likely basilar consolidation/atelectasis. Interim orogastric intubation 05/16 CXR: Retrocardiac density may represent atelectasis versus infiltrate. CXR 05/14/20 showed Retrocardiac atelectasis/infiltrate with Pulmonary venous congestion. sp cx MDR E.coli (S Cefepime, Meropenem, Zosyn) Hx of COVID 19 - Bacteria secondary infection? Asp PNA? COVID 19 tested Pos [facility] - about 3 week [employer] [employer] -still positive Rapid COVID PCR 05/14 Resp Fail Intuabted on Vent Leukocytosis; increased (sp steroids)- SP Fever; low grade ,recurrent -06/01 u/a wbc 10-15, nit neg, leuk +1 L femoral DVT EMA, SP SVT -sp cardioversion Hyperglycemia Elevated LFTs; resolving -Abd US: Gallbladder sludge. Negative for dilated bile ducts. Normal appearing liver and spleen. Trace ascites sp trach/peg 06/01 Dementia DM Hx CVA ( S/P PEG) pressure ulcers PLAN - Patient stable and Blood Cx negative from 06/01/20 and only 1/2. The lab is working on Zerbaxa and Avycaz Sensi This could be a contaminant and if there are no sensitive abx then we may be able to stop abs and repeat a blood cx off abx - Monitor off abx. She has a penicillin allergy and so i would not give an inter mediate sensitive drug with possible allergic reaction. If the Zerbaxa and Avycaz are sensitive then the low risk of allergy is reasonable as they will treat the P.a. - 06/03/20 SP Meropenem #2 - 06/02/20 SP Vancomycin #2 - 05/27 SP Meropenem #11 - 05/24 SP Decadron #11 - 05/19 SP IV Vancomcyin #6 - 05/17 SP Cefepime #4 - f/u Cultures - Monitor CBC and Temps -repeat covid neg x2 -f/u repeat cultures Thank you for consulting [facility]. Will continue to follow along with you. Discussed with RN. Subjective Allergies: Coded Allergies: DIVALPROEX SODIUM (Verified Allergy, Unknown, 05/14/20) PENICILLINS (Verified Allergy, Unknown, 05/14/20) Afebrile No Leukocytosis On vent Objective Last 24 Hour Vital Signs Date Time Temp Pulse Resp B/P (MAP) Pulse Ox O2 Delivery O2 Flow Rate FiO2 06/03/20 10:00 84 19 98/63 (75) 96 06/03/20 10:00 98/63 06/03/20 09:49 40 06/03/20 09:12 54 12 99 06/03/20 09:00 76 15 109/65 (80) 96 06/03/20 09:00 109/65 06/03/20 08:00 40 06/03/20 08:00 103/59 06/03/20 08:00 98.1 76 17 103/59 (74) 96 06/03/20 08:00 Mechanical Ventilator 06/03/20 08:00 74 06/03/20 07:00 92/57 06/03/20 07:00 75 19 40 06/03/20 07:00 77 13 99/51 (67) 97 06/03/20 06:30 69 12 06/03/20 06:30 80 15 101/53 (69) 96 06/03/20 06:00 68 19 107/58 (74) 98 06/03/20 06:00 101/53 06/03/20 05:30 66 15 112/62 (79) 98 06/03/20 05:01 117/67 06/03/20 05:00 74 14 101/60 (74) 96 06/03/20 05:00 117/67 06/03/20 04:30 70 19 113/67 (82) 96 06/03/20 04:00 Mechanical Ventilator 06/03/20 04:00 80 06/03/20 04:00 98.4 73 102/60 (74) 06/03/20 04:00 113/67 06/03/20 04:00 40 06/03/20 03:30 73 14 103/64 (77) 96 06/03/20 03:09 72 12 40 06/03/20 03:00 72 13 103/53 (70) 98 06/03/20 03:00 103/64 06/03/20 02:30 72 14 112/58 (76) 98 06/03/20 02:00 112/58 06/03/20 02:00 74 15 100/75 (83) 96 06/03/20 01:30 73 16 100/51 (67) 97 06/03/20 01:00 76 15 99/69 (79) 98 06/03/20 01:00 100/51 06/03/20 00:15 73 82/47 06/03/20 00:00 73 17 102/53 (69) 96 06/03/20 00:00 103/53 06/03/20 00:00 100.3 73 17 102/53 (69) 96 06/03/20 00:00 Mechanical Ventilator 06/03/20 00:00 76 06/03/20 00:00 40 06/02/20 23:30 68 19 108/54 (72) 98 06/02/20 23:11 87 17 90/49 (63) 99 06/02/20 23:07 77 14 84/49 (61) 97 06/02/20 23:05 78 14 40 06/02/20 23:00 75 16 95/47 (63) 98 06/02/20 23:00 75 16 82/47 (59) 98 06/02/20 23:00 82/47 06/02/20 22:30 72 14 106/68 (81) 99 06/02/20 22:00 79 17 96/57 (70) 98 06/02/20 22:00 79 17 96/57 (70) 98 06/02/20 22:00 96/57 06/02/20 21:30 73 14 104/61 (75) 98 06/02/20 21:00 74 17 106/53 (70) 98 06/02/20 21:00 74 17 106/53 (70) 98 06/02/20 21:00 106/69 06/02/20 20:30 73 12 113/66 (82) 99 06/02/20 20:00 40 06/02/20 20:00 70 06/02/20 20:00 74 16 104/55 (71) 98 06/02/20 20:00 Mechanical Ventilator 06/02/20 20:00 104/56 06/02/20 20:00 99.4 74 16 104/55 (71) 98 06/02/20 19:30 74 15 106/55 (72) 98 06/02/20 19:10 73 14 40 06/02/20 19:00 74 14 103/57 (72) 98 06/02/20 19:00 106/65 06/02/20 19:00 74 14 103/57 (72) 98 06/02/20 18:30 68 13 124/62 (82) 99 06/02/20 18:00 72 14 113/65 (81) 99 06/02/20 18:00 71 15 113/65 (81) 99 06/02/20 18:00 113/65 06/02/20 17:30 64 13 119/59 (79) 99 06/02/20 17:00 95/52 06/02/20 17:00 78 14 95/52 (66) 97 06/02/20 16:45 77 13 122/68 (86) 96 06/02/20 16:30 70 15 143/105 (118) 97 06/02/20 16:15 71 16 124/56 (78) 98 06/02/20 16:00 40 06/02/20 16:00 Mechanical Ventilator 06/02/20 16:00 98.2 71 14 92/49 (63) 97 06/02/20 16:00 92/49 06/02/20 16:00 71 06/02/20 15:45 67 12 101/56 (71) 98 06/02/20 15:30 64 13 98/62 (74) 98 06/02/20 15:23 64 15 40 06/02/20 15:15 64 13 95/59 (71) 98 06/02/20 15:00 56 12 93/51 (65) 100 06/02/20 15:00 93/51 06/02/20 14:45 59 14 98/56 (70) 99 06/02/20 14:30 59 14 91/59 (70) 99 06/02/20 14:15 59 14 92/52 (65) 99 06/02/20 14:00 98/50 06/02/20 14:00 60 14 98/50 (66) 100 06/02/20 13:45 76 17 95/51 (66) 98 06/02/20 13:30 51 12 91/48 (62) 99 06/02/20 13:15 68 13 92/57 (69) 97 06/02/20 13:00 53 14 83/41 (55) 99 06/02/20 13:00 81/49 06/02/20 12:45 75 15 95/62 (73) 98 06/02/20 12:30 79 18 109/67 (81) 99 06/02/20 12:15 58 18 102/62 (75) 99 06/02/20 12:00 98.7 60 13 90/49 (63) 99 06/02/20 12:00 89/49 06/02/20 12:00 40 06/02/20 12:00 Mechanical Ventilator 06/02/20 11:45 58 16 97/58 (71) 99 06/02/20 11:30 59 13 100/52 (68) 99 06/02/20 11:23 83 06/02/20 11:15 59 13 98/54 (69) 99 06/02/20 11:00 92/61 06/02/20 11:00 59 12 92/61 (71) 100 Height (Feet): 5 Height (Inches): 5.00 Weight (Pounds): 142 GEN: On Vent 40% O2 HEENT: NCAT, MMM, Intubated Pulm: Equal rise and fall B/L ABD: Soft, ND, PEG (No e/p) Neuro: Not following SKIN: Exposed skin with no rash, Normal in color Microbiology Date/Time Source Procedure Growth Status 06/01/20 18:45 Blood Blood Culture - Preliminary NO GROWTH AFTER 24 HOURS Resulted 06/01/20 18:30 Blood Blood Culture - Preliminary NO GROWTH AFTER 24 HOURS Resulted 05/31/20 19:45 Blood Blood Culture - Preliminary NO GROWTH AFTER 48 HOURS Resulted 05/31/20 16:00 Urine,Clean Catch Urine Culture - Final NO GROWTH AFTER 48 HOURS Complete 05/31/20 14:00 Blood Blood Culture - Final Pseudomonas Aeruginosa - Mdr Complete Laboratory Tests Test 06/02/20 22:23 06/03/20 04:00 POC Whole Blood Glucose Pending White Blood Count 4.4 K/UL (4.8-10.8) L Red Blood Count 2.99 M/UL (4.20-5.40) L Hemoglobin 9.1 G/DL (12.0-16.0) L Hematocrit 26.8 % (37.0-47.0) L Mean Corpuscular Volume 90 FL (80-99) Mean Corpuscular Hemoglobin 30.3 PG (27.0-31.0) Mean Corpuscular Hemoglobin Concent 33.8 G/DL (32.0-36.0) Red Cell Distribution Width 13.4 % (11.6-14.8) Platelet Count 171 K/UL (150-450) Mean Platelet Volume 6.7 FL (6.5-10.1) Neutrophils (%) (Auto) 76.6 % (45.0-75.0) H Lymphocytes (%) (Auto) 11.9 % (20.0-45.0) L Monocytes (%) (Auto) 9.7 % (1.0-10.0) Eosinophils (%) (Auto) 1.2 % (0.0-3.0) Basophils (%) (Auto) 0.7 % (0.0-2.0) Sodium Level 140 MMOL/L (136-145) Potassium Level 3.6 MMOL/L (3.5-5.1) Chloride Level 106 MMOL/L (98-107) Carbon Dioxide Level 27 MMOL/L (21-32) Anion Gap 8 mmol/L (5-15) Blood Urea Nitrogen 19 mg/dL (7-18) H Creatinine 0.5 MG/DL (0.55-1.30) L Estimat Glomerular Filtration Rate > 60 mL/min (>60) Glucose Level 120 MG/DL (74-106) H Calcium Level 9.0 MG/DL (8.5-10.1) Phosphorus Level 3.5 MG/DL (2.5-4.9) Magnesium Level 1.8 MG/DL (1.8-2.4) Current Medications Medications (Trade) Dose Ordered Sig/Morgan Route PRN Reason Start Time Stop Time Status Last Admin Dose Admin Acetaminophen (Tylenol) 650 mg Q4H PRN GT Temp >100.5 05/16/20 06:15 06/15/20 06:14 05/31/20 13:15 Acetaminophen (Tylenol) 650 mg Q4H PRN RECTAL Temp >100.5 05/16/20 19:45 06/15/20 19:44 05/17/20 18:30 Atropine Sulfate (Atropine 0.4mg/ ml) 0.4 mg Q2HR PRN IVP HR <45 05/29/20 21:30 06/28/20 19:24 05/30/20 22:39 Chlorhexidine Gluconate (Lilliam-Hex 2%) 1 applic DAILY@2000 TOPIC 05/15/20 20:00 08/13/20 19:59 06/02/20 20:55 Dextrose (Dextrose 50%) 25 ml Q30M PRN IV Hypoglycemia 05/22/20 00:00 08/20/20 00:00 Dextrose (Dextrose 50%) 50 ml Q30M PRN IV Hypoglycemia 05/22/20 00:00 08/20/20 00:00 Dopamine HCl/ Dextrose 250 ml @ 0 mls/hr Q24H IV 05/31/20 15:15 06/03/20 15:03 06/03/20 05:01 Insulin Aspart (NovoLOG) EVERY 6 HOURS SUBQ 05/22/20 06:00 08/20/20 05:59 05/27/20 05:57 Meropenem 1 gm/ Sodium Chloride 55 ml @ 110 mls/hr Q8HR IVPB 06/02/20 14:00 06/07/20 13:59 06/03/20 05:00 Pantoprazole (Protonix) 40 mg DAILY IV 05/15/20 09:00 06/14/20 08:59 06/03/20 08:48 Phenylephrine HCl 100 mg/Dextrose 250 ml @ 0 mls/hr Q24H IV 05/15/20 00:15 06/03/20 23:59 05/15/20 13:28 Sodium Chloride 1,000 ml @ 75 mls/hr [id number] IV 05/15/20 06:45 06/14/20 06:44 06/03/20 04:05 Vasopressin 100 units/Sodium Chloride 100 ml @ 0 mls/hr Q24H IV 05/15/20 00:15 06/03/20 23:59 Zinc Oxide (Zinc Oxide) 1 applic TIDPRN PRN TOPIC Abdominal cramps 05/20/20 13:00 08/18/20 12:59 Erasto Romeo MD Jun 03, 2020 11:07
--- NOTE | 2020-06-03 12:00 | NUR ---
NURSE NOTES: Pt repositioned. Oral care provided. Pt afebrile. Noted in ST with a HR 115 and low TV to vent. Pt placed back to AC mode with previous settings per Ole RT. Addendum: 06/03/20 at 1433 by Marion Graf RN Amendment: Pt repositioned. Oral care provided. Pt afebrile. Noted in ST with a HR 115 and low TV to vent. Pt placed back on AC mode with previous settings per Ole RT.
--- NOTE | 2020-06-03 12:04 | NUR ---
RESPIRATORY NOTES PT HR elevated from 82 to ~113. Tidal volume began to drop between 200-250. SBT terminated and PT placed back onto previous vent settings. SARA Schultz aware. Will continue to monitor.
--- NOTE | 2020-06-03 12:06 | Cardiac Electrophysiology PN ---
Assessment/Plan Assessment/Plan 1. [id number] myocardial infarction. Her troponin was 1.258, 1.2, 1.9, 3.4 and the down to 0.7 EKG shows Inferolateral ischemia Due to septic shock, DCCV and Renal failure. Echo had poor windows. 2. PAF with RVR. S/P DCCV 3 times No more fib or accelerated junctional rhythm. Off beta-ramakrishna or calcium-channel ramakrishna as the patient is still on Dopamine 3. S/P Septic shock. On Dopamine and antibiotic. DC Midodrine 4. Bradycardia requiring Atropine x 3 on 05/30/20. On Dopamine 4 mcg 5. Severe hypernatremia with sodium of 174, BUN of 131, creatinine 2.7 due to dehydration. Improved 6. Dysphagia, status post PEG replacement per Dr Matos 7. History of CVA and dementia. 8. Respiratory failure, S/P Tracheostomy by Dr Garcia 06/01/20 KIMMY RN Subjective Subjective In ICU in [facility] with no atrial fib but had bradycardia and received atropine 3 times on 05/31/20 On Dopamine 4 mcg/kg/ min. S/P Trach and PEG on 06/02/20. ECG 06/02/20 showed inferolateral ischemia Objective Last 24 Hour Vital Signs Date Time Temp Pulse Resp B/P (MAP) Pulse Ox O2 Delivery O2 Flow Rate FiO2 06/03/20 11:00 82 21 117/65 (82) 97 06/03/20 11:00 89 28 40 06/03/20 10:00 84 19 98/63 (75) 96 06/03/20 10:00 98/63 06/03/20 09:49 40 06/03/20 09:12 54 12 99 06/03/20 09:00 76 15 109/65 (80) 96 06/03/20 09:00 109/65 06/03/20 08:00 40 06/03/20 08:00 103/59 06/03/20 08:00 98.1 76 17 103/59 (74) 96 06/03/20 08:00 Mechanical Ventilator 06/03/20 08:00 74 06/03/20 07:00 92/57 06/03/20 07:00 75 19 40 06/03/20 07:00 77 13 99/51 (67) 97 06/03/20 06:30 69 12 06/03/20 06:30 80 15 101/53 (69) 96 06/03/20 06:00 68 19 107/58 (74) 98 06/03/20 06:00 101/53 06/03/20 05:30 66 15 112/62 (79) 98 06/03/20 05:01 117/67 06/03/20 05:00 74 14 101/60 (74) 96 06/03/20 05:00 117/67 06/03/20 04:30 70 19 113/67 (82) 96 06/03/20 04:00 Mechanical Ventilator 06/03/20 04:00 80 06/03/20 04:00 98.4 73 102/60 (74) 06/03/20 04:00 113/67 06/03/20 04:00 40 06/03/20 03:30 73 14 103/64 (77) 96 06/03/20 03:09 72 12 40 06/03/20 03:00 72 13 103/53 (70) 98 06/03/20 03:00 103/64 06/03/20 02:30 72 14 112/58 (76) 98 06/03/20 02:00 112/58 06/03/20 02:00 74 15 100/75 (83) 96 06/03/20 01:30 73 16 100/51 (67) 97 06/03/20 01:00 76 15 99/69 (79) 98 06/03/20 01:00 100/51 06/03/20 00:15 73 82/47 06/03/20 00:00 73 17 102/53 (69) 96 06/03/20 00:00 103/53 06/03/20 00:00 100.3 73 17 102/53 (69) 96 06/03/20 00:00 Mechanical Ventilator 06/03/20 00:00 76 06/03/20 00:00 40 06/02/20 23:30 68 19 108/54 (72) 98 06/02/20 23:11 87 17 90/49 (63) 99 06/02/20 23:07 77 14 84/49 (61) 97 06/02/20 23:05 78 14 40 06/02/20 23:00 75 16 95/47 (63) 98 06/02/20 23:00 75 16 82/47 (59) 98 06/02/20 23:00 82/47 06/02/20 22:30 72 14 106/68 (81) 99 06/02/20 22:00 79 17 96/57 (70) 98 06/02/20 22:00 79 17 96/57 (70) 98 20 22:00 96/57 06/02/20 21:30 73 14 104/61 (75) 98 06/02/20 21:00 74 17 106/53 (70) 98 06/02/20 21:00 74 17 106/53 (70) 98 06/02/20 21:00 106/69 06/02/20 20:30 73 12 113/66 (82) 99 06/02/20 20:00 40 06/02/20 20:00 70 06/02/20 20:00 74 16 104/55 (71) 98 06/02/20 20:00 Mechanical Ventilator 06/02/20 20:00 104/56 06/02/20 20:00 99.4 74 16 104/55 (71) 98 06/02/20 19:30 74 15 106/55 (72) 98 06/02/20 19:10 73 14 40 06/02/20 19:00 74 14 103/57 (72) 98 06/02/20 19:00 106/65 06/02/20 19:00 74 14 103/57 (72) 98 06/02/20 18:30 68 13 124/62 (82) 99 06/02/20 18:00 72 14 113/65 (81) 99 06/02/20 18:00 71 15 113/65 (81) 99 06/02/20 18:00 113/65 06/02/20 17:30 64 13 119/59 (79) 99 06/02/20 17:00 95/52 06/02/20 17:00 78 14 95/52 (66) 97 06/02/20 16:45 77 13 122/68 (86) 96 06/02/20 16:30 70 15 143/105 (118) 97 06/02/20 16:15 71 16 124/56 (78) 98 06/02/20 16:00 40 06/02/20 16:00 Mechanical Ventilator 06/02/20 16:00 98.2 71 14 92/49 (63) 97 06/02/20 16:00 92/49 06/02/20 16:00 71 06/02/20 15:45 67 12 101/56 (71) 98 06/02/20 15:30 64 13 98/62 (74) 98 06/02/20 15:23 64 15 40 06/02/20 15:15 64 13 95/59 (71) 98 06/02/20 15:00 56 12 93/51 (65) 100 06/02/20 15:00 93/51 06/02/20 14:45 59 14 98/56 (70) 99 06/02/20 14:30 59 14 91/59 (70) 99 06/02/20 14:15 59 14 92/52 (65) 99 06/02/20 14:00 98/50 06/02/20 14:00 60 14 98/50 (66) 100 06/02/20 13:45 76 17 95/51 (66) 98 06/02/20 13:30 51 12 91/48 (62) 99 06/02/20 13:15 68 13 92/57 (69) 97 06/02/20 13:00 53 14 83/41 (55) 99 06/02/20 13:00 81/49 06/02/20 12:45 75 15 95/62 (73) 98 06/02/20 12:30 79 18 109/67 (81) 99 06/02/20 12:15 58 18 102/62 (75) 99 Intake and Output 06/02/20 06/03/20 19:00 07:00 Intake Total 1191.832 ml 1194.5 ml Output Total 1175 ml 890 ml Balance 16.832 ml 304.5 ml Free Water 20 ml 100 ml IV Total 751.832 ml 374.5 ml Tube Feeding 420 ml 720 ml Output Urine Total 1175 ml 890 ml # Bowel Movements 2 3 Laboratory Tests Test 06/02/20 22:23 06/03/20 04:00 POC Whole Blood Glucose Pending White Blood Count 4.4 K/UL (4.8-10.8) L Red Blood Count 2.99 M/UL (4.20-5.40) L Hemoglobin 9.1 G/DL (12.0-16.0) L Hematocrit 26.8 % (37.0-47.0) L Mean Corpuscular Volume 90 FL (80-99) Mean Corpuscular Hemoglobin 30.3 PG (27.0-31.0) Mean Corpuscular Hemoglobin Concent 33.8 G/DL (32.0-36.0) Red Cell Distribution Width 13.4 % (11.6-14.8) Platelet Count 171 K/UL (150-450) Mean Platelet Volume 6.7 FL (6.5-10.1) Neutrophils (%) (Auto) 76.6 % (45.0-75.0) H Lymphocytes (%) (Auto) 11.9 % (20.0-45.0) L Monocytes (%) (Auto) 9.7 % (1.0-10.0) Eosinophils (%) (Auto) 1.2 % (0.0-3.0) Basophils (%) (Auto) 0.7 % (0.0-2.0) Sodium Level 140 MMOL/L (136-145) Potassium Level 3.6 MMOL/L (3.5-5.1) Chloride Level 106 MMOL/L (98-107) Carbon Dioxide Level 27 MMOL/L (21-32) Anion Gap 8 mmol/L (5-15) Blood Urea Nitrogen 19 mg/dL (7-18) H Creatinine 0.5 MG/DL (0.55-1.30) L Estimat Glomerular Filtration Rate > 60 mL/min (>60) Glucose Level 120 MG/DL (74-106) H Calcium Level 9.0 MG/DL (8.5-10.1) Phosphorus Level 3.5 MG/DL (2.5-4.9) Magnesium Level 1.8 MG/DL (1.8-2.4) Microbiology Date/Time Source Procedure Growth Status 06/01/20 18:45 Blood Blood Culture - Preliminary NO GROWTH AFTER 24 HOURS Resulted 06/01/20 18:30 Blood Blood Culture - Preliminary NO GROWTH AFTER 24 HOURS Resulted 05/31/20 19:45 Blood Blood Culture - Preliminary NO GROWTH AFTER 48 HOURS Resulted 05/31/20 16:00 Urine,Clean Catch Urine Culture - Final NO GROWTH AFTER 48 HOURS Complete 05/31/20 14:00 Blood Blood Culture - Preliminary Pseudomonas Aeruginosa - Mdr Resulted Objective HEAD AND NECK: No JVD. Tracheostomy in place. LUNGS: Coarse rhonchi. CARDIOVASCULAR: Regular S1 and S2 with no gallop. ABDOMEN: Soft. G-tube site in place EXTREMITIES: Show no pitting edema. Norman Morillo MD Jun 03, 2020 12:06
--- NOTE | 2020-06-03 14:00 | NUR ---
NURSE NOTES: Pt repositioned. No distress noted.
--- NOTE | 2020-06-03 15:32 | General Progress Note ---
Subjective Date patient seen: Jun 03, 2020 Time patient seen: 13:00 ROS Limited/Unobtainable: Yes Allergies: Coded Allergies: DIVALPROEX SODIUM (Verified Allergy, Unknown, 05/14/20) PENICILLINS (Verified Allergy, Unknown, 05/14/20) All Systems: reviewed and negative except above Subjective Non verbal, tacheostomy and PEG in place, she is noted to be grimacing. Objective Last 24 Hour Vital Signs Date Time Temp Pulse Resp B/P (MAP) Pulse Ox O2 Delivery O2 Flow Rate FiO2 06/03/20 14:00 109/59 06/03/20 14:00 80 17 109/59 (76) 97 06/03/20 13:00 118/68 06/03/20 13:00 84 18 118/68 (85) 98 06/03/20 12:04 94 06/03/20 12:00 Mechanical Ventilator 06/03/20 12:00 104 06/03/20 12:00 114/71 06/03/20 12:00 40 06/03/20 12:00 98.5 115 22 114/71 (85) 96 06/03/20 11:00 82 21 117/65 (82) 97 06/03/20 11:00 117/65 06/03/20 11:00 89 28 40 06/03/20 10:00 84 19 98/63 (75) 96 06/03/20 10:00 98/63 06/03/20 09:49 40 06/03/20 09:12 54 12 99 06/03/20 09:00 76 15 109/65 (80) 96 06/03/20 09:00 109/65 06/03/20 08:00 40 06/03/20 08:00 103/59 06/03/20 08:00 98.1 76 17 103/59 (74) 96 06/03/20 08:00 Mechanical Ventilator 06/03/20 08:00 74 06/03/20 07:00 92/57 06/03/20 07:00 75 19 40 06/03/20 07:00 77 13 99/51 (67) 97 06/03/20 06:30 69 12 06/03/20 06:30 80 15 101/53 (69) 96 06/03/20 06:00 68 19 107/58 (74) 98 06/03/20 06:00 101/53 06/03/20 05:30 66 15 112/62 (79) 98 06/03/20 05:01 117/67 06/03/20 05:00 74 14 101/60 (74) 96 06/03/20 05:00 117/67 06/03/20 04:30 70 19 113/67 (82) 96 06/03/20 04:00 Mechanical Ventilator 06/03/20 04:00 80 06/03/20 04:00 98.4 73 102/60 (74) 06/03/20 04:00 113/67 06/03/20 04:00 40 06/03/20 03:30 73 14 103/64 (77) 96 06/03/20 03:09 72 12 40 06/03/20 03:00 72 13 103/53 (70) 98 06/03/20 03:00 103/64 06/03/20 02:30 72 14 112/58 (76) 98 06/03/20 02:00 112/58 06/03/20 02:00 74 15 100/75 (83) 96 06/03/20 01:30 73 16 100/51 (67) 97 06/03/20 01:00 76 15 99/69 (79) 98 06/03/20 01:00 100/51 06/03/20 00:15 73 82/47 06/03/20 00:00 73 17 102/53 (69) 96 06/03/20 00:00 103/53 06/03/20 00:00 100.3 73 17 102/53 (69) 96 06/03/20 00:00 Mechanical Ventilator 06/03/20 00:00 76 06/03/20 00:00 40 06/02/20 23:30 68 19 108/54 (72) 98 06/02/20 23:11 87 17 90/49 (63) 99 06/02/20 23:07 77 14 84/49 (61) 97 06/02/20 23:05 78 14 40 06/02/20 23:00 75 16 95/47 (63) 98 06/02/20 23:00 75 16 82/47 (59) 98 06/02/20 23:00 82/47 06/02/20 22:30 72 14 106/68 (81) 99 9/24/20 22:00 79 17 96/57 (70) 98 06/02/20 22:00 79 17 96/57 (70) 98 06/02/20 22:00 96/57 06/02/20 21:30 73 14 104/61 (75) 98 06/02/20 21:00 74 17 106/53 (70) 98 06/02/20 21:00 74 17 106/53 (70) 98 06/02/20 21:00 106/69 06/02/20 20:30 73 12 113/66 (82) 99 06/02/20 20:00 40 06/02/20 20:00 70 06/02/20 20:00 74 16 104/55 (71) 98 06/02/20 20:00 Mechanical Ventilator 06/02/20 20:00 104/56 06/02/20 20:00 99.4 74 16 104/55 (71) 98 06/02/20 19:30 74 15 106/55 (72) 98 06/02/20 19:10 73 14 40 06/02/20 19:00 74 14 103/57 (72) 98 06/02/20 19:00 106/65 06/02/20 19:00 74 14 103/57 (72) 98 06/02/20 18:30 68 13 124/62 (82) 99 06/02/20 18:00 72 14 113/65 (81) 99 06/02/20 18:00 71 15 113/65 (81) 99 06/02/20 18:00 113/65 06/02/20 17:30 64 13 119/59 (79) 99 06/02/20 17:00 95/52 06/02/20 17:00 78 14 95/52 (66) 97 06/02/20 16:45 77 13 122/68 (86) 96 06/02/20 16:30 70 15 143/105 (118) 97 06/02/20 16:15 71 16 124/56 (78) 98 06/02/20 16:00 40 06/02/20 16:00 Mechanical Ventilator 06/02/20 16:00 98.2 71 14 92/49 (63) 97 06/02/20 16:00 92/49 06/02/20 16:00 71 06/02/20 15:45 67 12 101/56 (71) 98 06/02/20 15:30 64 13 98/62 (74) 98 06/02/20 15:23 64 15 40 Intake and Output 06/02/20 06/03/20 19:00 07:00 Intake Total 1191.832 ml 1194.5 ml Output Total 1175 ml 890 ml Balance 16.832 ml 304.5 ml Free Water 20 ml 100 ml IV Total 751.832 ml 374.5 ml Tube Feeding 420 ml 720 ml Output Urine Total 1175 ml 890 ml # Bowel Movements 2 3 Laboratory Tests 06/02/20 22:23: POC Whole Blood Glucose [Pending] 06/03/20 04:00: White Blood Count 4.4L, Red Blood Count 2.99L, Hemoglobin 9.1L, Hematocrit 26.8L , Mean Corpuscular Volume 90, Mean Corpuscular Hemoglobin 30.3, Mean Corpuscular Hemoglobin Concent 33.8, Red Cell Distribution Width 13.4, Platelet Count 171, Mean Platelet Volume 6.7, Neutrophils (%) (Auto) 76.6H, Lymphocytes (%) (Auto) 11.9L, Monocytes (%) (Auto) 9.7, Eosinophils (%) (Auto) 1.2, Basophils (%) (Auto) 0.7, Sodium Level 140, Potassium Level 3.6, Chloride Level 106, Carbon Dioxide Level 27, Anion Gap 8, Blood Urea Nitrogen 19H, Creatinine 0.5L, Estimat Glomerular Filtration Rate > 60, Glucose Level 120H, Calcium Level 9.0, Phosphorus Level 3.5, Magnesium Level 1.8 Height (Feet): 5 Height (Inches): 5.00 Weight (Pounds): 142 General Appearance: WD/WN EENT: PERRL/EOMI Neck: non-tender Cardiovascular: normal rate Respiratory/Chest: decreased breath sounds Abdomen: normal bowel sounds Edema: trace edema Neurologic: childcare center administrator II-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 # Septic with element of cardiogenic shock Etiology COVID 19 vs UTI vs bacteremia / contaminant and NSTEMI Bcx POSITIVE WITH G+ Cocci s/p vancomycin Sputum Cx 05/25 reviewed today with Pseudomonas. Colonizer and recent completion of 14 day treatment with Meropenem U cx 05/14 Proteus Mirabillis Continue Meropenem 14 days completed Vancomycin stopped stopped Cefepime Dexamethasone 10 day course completed Leukocytosis improved. Monitor clinically for now and OFF antibiotics per ID COVID NEGATIVE x 2 05/25 and 05/26 # Acute respiratory failure Intubated. Self extubated 05/27 and re intubated by ED MD successfully. ICU care appreciated Dr. Rock following Ventilator management per ICU-pulmonary FiO2 40 % today. T piece. Medically tracheostomy is needed and life saving procedure as she is not tolerating wean off. Overall, her quality of life will not improve from prior baseline with advanced dementia. Will need permanent ventilator support via tracheostomy and subacute level of care. Critical care attending, Surgery and GI attendings notified to plan PEG and TRACH as medically indicated and completed 06/02/20 # SVT vs A. Flutter s/p DC x 3 # NSTEMI HR is controlled in the 100 range and tolerating Digoxin Vasopressors in place Levophed at [address] Morillo requested and TTE requested and poor window. Troponin 3.4 now 0.7 EKG 05/17 NSR, stable. Inferior wall ischemia IF NOT ABLE TO WEAN OFF PRESSORS, Repeat TTE is indicated to assess EF. # AG metabolic acidosis Ddx lactic acidosis Improved. # Hyperglycemia r/o DKA ABG and Ketones negative Endocrine consult with Dr. Shelley IV insulin gtt stopped and in SQ insulin coverage now # Hypernatremia resolved Improving Monitor BMP # COVID 19 Positive on admission, now NEGATIVE as of 05/25/20 On Dexamethasone completed 10 day course Contact and droplet isolation # Dysphagia PEG REMOVED 05/16 Carlo Vargas consulted NGT placed and Tube feeds started 05/18 and being tolerated at 45 cc hr Glucerna 1.2 # Severe protein caloric malnutrition with Albumin 1.5 RD follow up # Thrombocytopenia Platelets down from 80 K to 64 K to 66 K ( OFF Heparin ) and improved to normal range. 05/17 dc heparin, use SCD, order US Liver, HIT Ab, HIV negative # Newly detected lower extremity DVT HOLD off anticoagulation as tracheostomy and PEG done 06/[address] Garcia and agreed to start anticoagulation therapy for DVT Lovenox at 1 mg Kg SQ q 12 hr # Hypokalemia # Hypophosphatemia Replace as needed Monitor in AM # Dementia Baseline # FULL CODE SW follow up to reach out to DPOA and consider change in code status due to high morbidity and risk of inpatient mortality. Paperwork completed for superior court of the [facility] for request of tracheostomy and gastrostomy placement due to medical need on 05/26/20 Bioethic consult requested and spoke with Dr. Hung from ethics and I agree with his assessment that the patient quality of life will NOT IMPROVE with tracheostomy and replacement of PEG. The patient is very limited due to her un derlying dementia and now unable to wean off the ventilator. SHE HAD THE NEED TO GET A TRACHEOSTOMY and PEG was replaced 06/01/[address] Garcia DUE TO MEDICAL NECESSITY AND LIFE SAVING PROCEDURES. DR. ROCK AND I AGREED AND SIGNED [address] FORM. PEND[address] DECISION REGARDING CODE STATUS. DNR IS MEDICALLY INDICATED. Due to the medical need for TRACH and PEG, this will be scheduled at this time for today. > 50 min spent in coordination of care and consultation with physicians and RN. Jessica Wade MD Jun 03, 2020 15:32
--- NOTE | 2020-06-03 15:39 | Surgery Progress Note ---
Surgery Progress Note Subjective Procedure Performed trach egd with peg Additional Comments looks more comfortable labs noted exam stable Objective Last 24 Hour Vital Signs Date Time Temp Pulse Resp B/P (MAP) Pulse Ox O2 Delivery O2 Flow Rate FiO2 06/03/20 15:15 82 18 113/61 (78) 98 06/03/20 15:00 86 15 126/63 (84) 97 06/03/20 14:00 109/59 06/03/20 14:00 80 17 109/59 (76) 97 06/03/20 13:00 118/68 06/03/20 13:00 84 18 118/68 (85) 98 06/03/20 12:04 94 06/03/20 12:00 Mechanical Ventilator 06/03/20 12:00 104 06/03/20 12:00 114/71 06/03/20 12:00 40 06/03/20 12:00 98.5 115 22 114/71 (85) 96 06/03/20 11:00 82 21 117/65 (82) 97 06/03/20 11:00 117/65 06/03/20 11:00 89 28 40 06/03/20 10:00 84 19 98/63 (75) 96 06/03/20 10:00 98/63 06/03/20 09:49 40 06/03/20 09:12 54 12 99 06/03/20 09:00 76 15 109/65 (80) 96 06/03/20 09:00 109/65 06/03/20 08:00 40 06/03/20 08:00 103/59 06/03/20 08:00 98.1 76 17 103/59 (74) 96 06/03/20 08:00 Mechanical Ventilator 06/03/20 08:00 74 06/03/20 07:00 92/57 06/03/20 07:00 75 19 40 06/03/20 07:00 77 13 99/51 (67) 97 06/03/20 06:30 69 12 06/03/20 06:30 80 15 101/53 (69) 96 06/03/20 06:00 68 19 107/58 (74) 98 06/03/20 06:00 101/53 06/03/20 05:30 66 15 112/62 (79) 98 06/03/20 05:01 117/67 06/03/20 05:00 74 14 101/60 (74) 96 06/03/20 05:00 117/67 06/03/20 04:30 70 19 113/67 (82) 96 06/03/20 04:00 Mechanical Ventilator 06/03/20 04:00 80 06/03/20 04:00 98.4 73 102/60 (74) 06/03/20 04:00 113/67 06/03/20 04:00 40 06/03/20 03:30 73 14 103/64 (77) 96 06/03/20 03:09 72 12 40 06/03/20 03:00 72 13 103/53 (70) 98 06/03/20 03:00 103/64 06/03/20 02:30 72 14 112/58 (76) 98 06/03/20 02:00 112/58 06/03/20 02:00 74 15 100/75 (83) 96 06/03/20 01:30 73 16 100/51 (67) 97 06/03/20 01:00 76 15 99/69 (79) 98 06/03/20 01:00 100/51 06/03/20 00:15 73 82/47 06/03/20 00:00 73 17 102/53 (69) 96 06/03/20 00:00 103/53 06/03/20 00:00 100.3 73 17 102/53 (69) 96 06/03/20 00:00 Mechanical Ventilator 06/03/20 00:00 76 06/03/20 00:00 40 06/02/20 23:30 68 19 108/54 (72) 98 06/02/20 23:11 87 17 90/49 (63) 99 06/02/20 23:07 77 14 84/49 (61) 97 06/02/20 23:05 78 14 40 06/02/20 23:00 75 16 95/47 (63) 98 06/02/20 23:00 75 16 82/47 (59) 98 06/02/20 23:00 82/47 06/02/20 22:30 72 14 106/68 (81) 99 06/02/20 22:00 79 17 96/57 (70) 98 06/02/20 22:00 79 17 96/57 (70) 98 06/02/20 22:00 96/57 06/02/20 21:30 73 14 104/61 (75) 98 06/02/20 21:00 74 17 106/53 (70) 98 06/02/20 21:00 74 17 106/53 (70) 98 06/02/20 21:00 106/69 06/02/20 20:30 73 12 113/66 (82) 99 06/02/20 20:00 40 06/02/20 20:00 70 06/02/20 20:00 74 16 104/55 (71) 98 06/02/20 20:00 Mechanical Ventilator 06/02/20 20:00 104/56 06/02/20 20:00 99.4 74 16 104/55 (71) 98 06/02/20 19:30 74 15 106/55 (72) 98 06/02/20 19:10 73 14 40 06/02/20 19:00 74 14 103/57 (72) 98 06/02/20 19:00 106/65 06/02/20 19:00 74 14 103/57 (72) 98 06/02/20 18:30 68 13 124/62 (82) 99 06/02/20 18:00 72 14 113/65 (81) 99 06/02/20 18:00 71 15 113/65 (81) 99 06/02/20 18:00 113/65 06/02/20 17:30 64 13 119/59 (79) 99 06/02/20 17:00 95/52 06/02/20 17:00 78 14 95/52 (66) 97 06/02/20 16:45 77 13 122/68 (86) 96 06/02/20 16:30 70 15 143/105 (118) 97 06/02/20 16:15 71 16 124/56 (78) 98 06/02/20 16:00 40 06/02/20 16:00 Mechanical Ventilator 06/02/20 16:00 98.2 71 14 92/49 (63) 97 06/02/20 16:00 92/49 06/02/20 16:00 71 06/02/20 15:45 67 12 101/56 (71) 98 I&O Intake and Output 06/02/20 06/03/20 19:00 07:00 Intake Total 1191.832 ml 1194.5 ml Output Total 1175 ml 890 ml Balance 16.832 ml 304.5 ml Free Water 20 ml 100 ml IV Total 751.832 ml 374.5 ml Tube Feeding 420 ml 720 ml Output Urine Total 1175 ml 890 ml # Bowel Movements 2 3 Dressing: other Wound: other Cardiovascular: RSR Respiratory: decreased breath sounds Abdomen: soft, non-tender, present bowel sounds Extremities: no tenderness, no cyanosis Laboratory Tests Test 06/02/20 22:23 06/03/20 04:00 POC Whole Blood Glucose Pending White Blood Count 4.4 K/UL (4.8-10.8) L Red Blood Count 2.99 M/UL (4.20-5.40) L Hemoglobin 9.1 G/DL (12.0-16.0) L Hematocrit 26.8 % (37.0-47.0) L Mean Corpuscular Volume 90 FL (80-99) Mean Corpuscular Hemoglobin 30.3 PG (27.0-31.0) Mean Corpuscular Hemoglobin Concent 33.8 G/DL (32.0-36.0) Red Cell Distribution Width 13.4 % (11.6-14.8) Platelet Count 171 K/UL (150-450) Mean Platelet Volume 6.7 FL (6.5-10.1) Neutrophils (%) (Auto) 76.6 % (45.0-75.0) H Lymphocytes (%) (Auto) 11.9 % (20.0-45.0) L Monocytes (%) (Auto) 9.7 % (1.0-10.0) Eosinophils (%) (Auto) 1.2 % (0.0-3.0) Basophils (%) (Auto) 0.7 % (0.0-2.0) Sodium Level 140 MMOL/L (136-145) Potassium Level 3.6 MMOL/L (3.5-5.1) Chloride Level 106 MMOL/L (98-107) Carbon Dioxide Level 27 MMOL/L (21-32) Anion Gap 8 mmol/L (5-15) Blood Urea Nitrogen 19 mg/dL (7-18) H Creatinine 0.5 MG/DL (0.55-1.30) L Estimat Glomerular Filtration Rate > 60 mL/min (>60) Glucose Level 120 MG/DL (74-106) H Calcium Level 9.0 MG/DL (8.5-10.1) Phosphorus Level 3.5 MG/DL (2.5-4.9) Magnesium Level 1.8 MG/DL (1.8-2.4) Plan Problems: (1) Hypernatremia (2) Renal failure (3) Respiratory failure (4) Sepsis Assessment & Plan: COVID + leukocytosis anemia electrolytes abnormal on iv fluids renal input appreciated cxr noted abx as per ID will follow with recs Will likely need trach difficult weaning conservatorship working with case ivory hanson social work to figure out goals of care s/p peg and trach improving much more comfortable Interim placement of orogastric tube, also documented on recent abdominal radiograph. Stable satisfactory position of endotracheal tube and right jugular central venous catheter. There is increased pleural fluid and likely left basilar consolidation/atelectasis. The right lung and pleural space remain clear. Impression: Increasing left pleural fluid and likely basilar consolidation/atelectasis. Interim orogastric intubation DAILY ESTIMATED NEEDS: Needs based on Pulmonary, DM, wounds 66.6kg 25-30 kcals/kg 3546-5255 total kcals 1.25-1.5 g protein/kg 83-100 g total protein 20-25 mL/kg 4335-4061 total fluid mLs NUTRITION DIAGNOSIS: Swallowing difficulty r/t dysphagia as evidenced by h/o CVA, pt is GT dep, currently ICU status, now intubated, off pressor support, GT feeds initiated. CURRENT TF:Glucerna 1.2 @45ml/hr ENTERAL NUTRITION RECOMMENDATIONS: As medically able: GLUCERNA 1.5 goal of 45ml/hr x24 hrs to provide 1080ml, 1620 kcal, 89g pro, 820ml free H2O -> as medically able without aspiration risk start Glucerna 1.5 @low rate 25ml/hr for 6 hrs. Advance as tolerated 10ml/hr q4-6 hrs to goal. - Flush per MD, HOB over 30 degrees. ---- If not hemodynamically stable, rec trophic feeds of 5-10ml/hr to maintain gut integrity. ADDITIONAL RECOMMENDATIONS: 1) Obtain an accurate calibrated bed scale wt 2) F/up w/ H&P 3) With active TF orders, add JAMSYN BID for noted DTPI wounds 4) TF recs as above when off bipap and w/ hemodynamic stability -> Now intubated, off pressors, on GT feeds. he spleen size is normal. The gallbladder contains sludge. No stones. No wall thickening nor pericholecystic fluid. Common bile duct measures 4 mm in diameter. Small amount free fluid is seen adjacent to the liver and spleen Impression: Gallbladder sludge. Negative for dilated bile ducts Normal appearing liver and spleen Patient with respiratory failure intubated on support unable to wean safely. A tracheostomy in this case would be indicated and recommended. Patient is full code but conserved. Given her condition waiting a significant period of time is at high risk for her given the risk for extubation duration of tube and worsening with her ET tube. A trach would be functional manageable for her and recommended. Unfortunately waiting for the time. Would be advisable and discussed with the social workers immigration case manager and medical teams. Shorts Sifter as well. ICU team as well. We will proceed with tracheostomy in patient's best interest given her CODE STATUS and wishes and care plan. i have been asked by GI and medical teams to place PEG as well. after careful evaluation I agree with medical teams that patient would also benefit from feedi ng tube access. given her condition, Covid status, care plan, goals of care, will place peg at same time of trach to minimize exposure and OR time and limit procedure risks for patient. (5) Elevated d-dimer (6) COVID-19 Assessment & Plan: ++ (7) Pressure ulcer Assessment & Plan: Pt presented on admission with multiple Pressure injuries.DTPI noted to R Buttocks (L)3.8cm x (W)3.4cm. Base of wound is purpuric,fluctuant with surrounding maroon and indurated borders. DTPI Upper L Buttocks(L)5.5cm x (W)4cm. Base of wound is maroon and indurated. Borders are irregular. Non-Blanchable erythema without induration/fluctuance L lower buttocks(L)4cm x (W)7cm. R and L heels are soft but blanchable. Erosion noted at peristomal GT site. Site is erythematous and excoriated. Small amt. sanguineous exudate. Tx.Plan: Apply Moisture Barrier Paste to Sacrum, R and L Buttocks. Cover each area with Optifoam drsg. Change every 3 days and prn. Apply Moisture Barrier Paste to R and L Ischial tuberosities with each incontinence care. Apply Cavilon Skin Barrier to both heels. Cover each heel and malleoli with Optifoam drsg. Change every 7 days and prn. Reposition at least every 2hours or as tolerated. Off-load heels with pillow. APM/DARIN Mattress overlay. Apply Zinc Oxide Paste TID to GT site. Leave open to Air. (8) Dementia (9) CVA (cerebral vascular accident) (10) T2DM (type 2 diabetes mellitus) (11) Gastrostomy present (12) COVID-19 (13) Rapid atrial fibrillation Paul Garcia Jun 03, 2020 15:39
--- NOTE | 2020-06-03 15:52 | NUR ---
CASE MANAGEMENT: REVIEW 06/03/2020 SI;SEPSIS. VS: T 98.5 HR 115 RR 22 B/P 114/71 SATS 96% ON MECH VENT FIO2 40 LABS: WBC 4.4 BUN 19 CR 0.5 GLU 120 IS:NS @ 75 ML/HR INSULIN ASPART SUBQ Q6H PHENYLEPHRINE - HELD VASOPRESSIN IV- HELD ICU DCP: SNF PLAN OF CARE: S/P PEG and TRACH
--- NOTE | 2020-06-03 16:00 | NUR ---
NURSE NOTES: Pt repositioned. Oral care provided. No acute distress noted.
--- NOTE | 2020-06-03 18:00 | NUR ---
NURSE NOTES: Pt repositioned. BG 115 - no insulin coverage per protocol. No distress noted at this time. Will continue to monitor.
--- NOTE | 2020-06-03 18:59 | NUR ---
NURSE HAND-OFF REPORT: Latest Vital Signs: Temperature 98.9 , Pulse 75 , B/P 106 /66 , Respiratory Rate 16 , O2 SAT 99 , Mechanical Ventilator, FiO2 40%. EKG Rhythm: Sinus Rhythm Rhythm change?: Y MD Notified?: n/a MD Response: n/a Latest Garza Fall Score: 50 Fall Risk: High Risk Safety Measures: Call light Within Reach, Bed Alarm Zone 1, Side Rails Side Rails x2, Bed position Low and Locked. Fall Precautions: Yellow Socks Yellow Gown Door Sign Patient Fall Education Report given to SARA Patel.
--- NOTE | 2020-06-03 20:00 | NUR ---
NURSE NOTES: NURSE NOTES: received report from shelly bustamante pt orally intubated -vent o2 sat 100% no resp distress noted reposition and suction on camryn soft restraint nan complaint tolerating tube feeding urinary out put good
[2020-06-03] MEDS: Dyna-Hex 2% Top Sol 2oz TOPIC SCH (20:54)
[2020-06-03] MEDS: Enoxaparin 60mg Inj SUBQ SCH (20:56)
--- NOTE | 2020-06-03 22:00 | NUR ---
NURSE NOTES:reposition and suction condition un change
[2020-06-04] VITALS (25 sets, daily range): BP systolic 83–126; BP diastolic 45–76
--- NOTE | 2020-06-04 | NUR ---
NURSE NOTES: BS 110 NO INSULIN COVERAGE GIVEN
--- NOTE | 2020-06-04 02:00 | NUR ---
NURSE NOTES: CONDITION UNCHANGE
--- NOTE | 2020-06-04 04:00 | NUR ---
NURSE NOTES: COMPLETE BED BATH AND ORAL CARE DONE
[2020-06-04 05:17] LABS: BASOPHILS % (AUTO) 0.8 % (0.0-2.0); HEMATOCRIT 23.8 % (37.0-47.0); LYMPHOCYTES % (AUTO) 12.3 % (20.0-45.0); MEAN CORPUSCULAR VOLUME 90 FL (80-99); MONOCYTES % (AUTO) 11.5 % (1.0-10.0); NEUTROPHILS % (AUTO) 73.4 % (45.0-75.0); PLATELET COUNT 159 K/UL (150-450); RED BLOOD COUNT 2.64 M/UL (4.20-5.40); RED CELL DISTRIBUTION WIDTH 13.3 % (11.6-14.8); WHITE BLOOD COUNT 4.1 K/UL (4.8-10.8)
[2020-06-04 05:37] LABS: ANION GAP 6 mmol/L (5-15); BLOOD UREA NITROGEN 18 mg/dL (7-18); CALCIUM 8.5 MG/DL (8.5-10.1); CARBON DIOXIDE 28 MMOL/L (21-32); CHLORIDE 106 MMOL/L (98-107); CREATININE 0.5 MG/DL (0.55-1.30); PHOSPHORUS 2.1 MG/DL (2.5-4.9); POTASSIUM 3.5 MMOL/L (3.5-5.1); SODIUM 140 MMOL/L (136-145)
[2020-06-04] MEDS: NovoLOG Insulin Flexpen SUBQ SCH ×5 (06:00→23:19)
--- NOTE | 2020-06-04 06:00 | NUR ---
NURSE NOTES: BS 126 NO INSULIN COVERAGE ORDER
--- NOTE | 2020-06-04 07:30 | NUR ---
NURSE HAND-OFF REPORT: Latest Vital Signs: Temperature 98.2 , Pulse 63 , B/P 105 /76 , Respiratory Rate 17 , O2 SAT 100 , Mechanical Ventilator, O2 Flow Rate 12.0 . Vital Sign Comment: EKG Rhythm: Sinus Rhythm Rhythm change?: N Notified?: Chucky Pierce MD Response: No New Orders Received Latest Garza Fall Score: 50 Fall Risk: High Risk Safety Measures: Call light Within Reach, Bed Alarm Zone 1, Side Rails Side Rails x2, Bed position Low and Locked. Fall Precautions: Yellow Socks Yellow Gown Door Sign Patient Fall Education Report given to demario bustamante using sbar.
--- NOTE | 2020-06-04 07:45 | NUR ---
NURSE NOTES: Report received from SARA Colvin. Pt lying comfortably in semi-fowlers with no signs of acute distress noted. A+Ox1, with eyes closed, opens eyes to voice. Pt nonverbal, does not track with eyes, and does not follow commands. Pt SR on the monitor @ 71. Respirations even and unlabored on vent with shiley 8 trach. Vent settings AC 12 VT 500, 40% fio2. G-tube noted running feeding @ prescribed rate. Right IJ TLC running dopamine @ 2 mcg/kg/min and fluids @ prescribed rate. Increased dopamine to 4 mcg/kg/min d/t BP in the 80s systolic. BP now in the 100s systolic after increase. Patient has sacral redness, clean and dry, dressed in optifoam. Pt on p200 mattress. All other vitals stable as documented. Bed at lowest position, brakes engaged, siderails x3, bed alarm on, and call light within reach. Pt at stable condition at this time, will continue to monitor. Pt in bilateral soft wrist restraints for safety. No swelling noted, radial pulses present.
--- NOTE | 2020-06-04 07:52 | Infectious Diseases Prog Note ---
Assessment/Plan 70 yo female with PMHx of Dementia, DM, CVA ( S/P PEG), COVID 19 infection and pressure ulcers. Septic Shock-combination cardiogenic and septic; -back on pressors, decreasing Gram positive bacteremia- contaminant; recurrent -05/31 Bcx 1/2 Gram variable rods -05/14 Bcx 1/4 S. haemolyticus; 05/17 Bcx Neg UTI, sp rx UA (+); ucx 10-20k P. mirabilis (S Ceftriaxone, Cefepime) PNA, superimposed bacterial, sp rx Recent COVID19 pna- now repeat neg x2 -05/27 CXR: Previously seen left lung atelectasis has nearly completely resolved. Retrocardiac atelectasis without or with some component of consolidation. Low lung volumes with bronchovascular crowding. -05/26 CXR: Complete opacification of the left hemithorax with mediastinal shift to the left likely due to complete atelectasis of the left lung perhaps from mucous plugging. rapid COVID PCR neg -05/25 sp cx MDR PsA (I Ceftazidime, Colistin, Polymixin B); suspect colonizer SARS-COV2 neg -05/24 SARS-COV2 pCR inconclusive -05/23 CXR: Worsening aeration with increasing hazy opacification of the left lung base which may related to increased layering pleural effusion and adjacent atelectasis/consolidation. -05/19 CXR: Increasing left pleural fluid and likely basilar consolidation/atelectasis. Interim orogastric intubation 05/16 CXR: Retrocardiac density may represent atelectasis versus infiltrate. CXR 05/14/20 showed Retrocardiac atelectasis/infiltrate with Pulmonary venous congestion. sp cx MDR E.coli (S Cefepime, Meropenem, Zosyn) Hx of COVID 19 - Bacteria secondary infection? Asp PNA? COVID 19 tested Pos [facility] - about 3 week [employer] -still positive Rapid COVID PCR 05/14 Resp Fail Intuabted on Vent Leukocytosis; increased (sp steroids)- SP Fever; low grade ,recurrent -06/01 u/a wbc 10-15, nit neg, leuk +1 L femoral DVT EMA, SP SVT -sp cardioversion Hyperglycemia Elevated LFTs; resolving -Abd US: Gallbladder sludge. Negative for dilated bile ducts. Normal appearing liver and spleen. Trace ascites sp trach/peg 06/01 Dementia DM Hx CVA ( S/P PEG) pressure ulcers PLAN - Repeat BCx today - Start Zerbaxa for MDR PsA bacteremia, if worsening can try double coverage w/ colistin or polyB but overall slightly stable currently - Patient stable and Blood Cx negative from 06/01/20 and only 1/. The lab is working on Zerbaxa and Avycaz Sensi - 06/03/20 SP Meropenem #2 - 06/02/20 SP Vancomycin #2 - 05/27 SP Meropenem #11 - 05/24 SP Decadron #11 - 05/19 SP IV Vancomcyin #6 - 05/17 SP Cefepime #4 - f/u Cultures - Monitor CBC and Temps -repeat covid neg x2 -f/u repeat cultures Thank you for consulting [facility]. Will continue to follow along with you. Discussed with RN and Pharmacy staff Subjective Allergies: Coded Allergies: DIVALPROEX SODIUM (Verified Allergy, Unknown, 05/14/20) PENICILLINS (Verified Allergy, Unknown, 05/14/20) AF WBC 4.1 NAD Hypotensive on dopamine, previously on levophed Also w/ sinus emilia Objective Last 24 Hour Vital Signs Date Time Temp Pulse Resp B/P (MAP) Pulse Ox O2 Delivery O2 Flow Rate FiO2 06/04/20 06:36 69 12 06/04/20 06:00 105/76 06/04/20 06:00 63 17 89/47 (61) 100 06/04/20 05:00 96/48 06/04/20 05:00 68 12 96/54 (68) 99 06/04/20 04:00 98.2 65 17 95/46 (62) 93 06/04/20 04:00 Mechanical Ventilator 06/04/20 04:00 73 06/04/20 04:00 94/52 06/04/20 04:00 40 06/04/20 03:14 72 19 40 06/04/20 03:00 65 17 95/46 (62) 93 06/04/20 03:00 110/56 06/04/20 02:00 71/58 06/04/20 02:00 67 14 107/64 (78) 97 06/04/20 01:00 71 14 99/54 (69) 99 06/04/20 01:00 102/54 06/04/20 00:00 40 06/04/20 00:00 Mechanical Ventilator 06/04/20 00:00 99.0 79 16 103/61 (75) 98 06/04/20 00:00 125/55 06/04/20 00:00 68 06/03/20 23:16 68 13 40 06/03/20 23:00 73 15 102/55 (71) 99 06/03/20 23:00 102/65 06/03/20 22:00 116/69 06/03/20 22:00 83 15 116/69 (85) 97 06/03/20 21:00 73 13 110/58 (75) 99 06/03/20 21:00 103/61 06/03/20 20:00 40 06/03/20 20:00 102/60 06/03/20 20:00 Mechanical Ventilator 06/03/20 20:00 98.4 73 15 102/69 (80) 98 06/03/20 20:00 78 06/03/20 19:00 76 17 111/57 (75) 97 06/03/20 19:00 111/57 06/03/20 18:57 75 16 40 06/03/20 18:00 78 14 106/66 (79) 99 06/03/20 18:00 106/66 06/03/20 17:32 118/63 06/03/20 17:00 110/54 06/03/20 17:00 77 19 110/54 (72) 100 06/03/20 16:00 79 06/03/20 16:00 98.9 89 19 100/73 (82) 99 06/03/20 16:00 40 06/03/20 16:00 Mechanical Ventilator 06/03/20 16:00 100/73 06/03/20 15:45 86 18 104/67 (79) 100 06/03/20 15:30 92 19 109/55 (73) 96 06/03/20 15:15 82 18 113/61 (78) 98 06/03/20 15:05 82 15 40 06/03/20 15:00 86 15 126/63 (84) 97 06/03/20 15:00 126/63 06/03/20 14:00 109/59 06/03/20 14:00 80 17 109/59 (76) 97 06/03/20 13:00 118/68 06/03/20 13:00 84 18 118/68 (85) 98 06/03/20 12:04 94 06/03/20 12:00 Mechanical Ventilator 06/03/20 12:00 104 06/03/20 12:00 114/71 06/03/20 12:00 40 06/03/20 12:00 98.5 115 22 114/71 (85) 96 06/03/20 11:00 82 21 117/65 (82) 97 06/03/20 11:00 117/65 06/03/20 11:00 89 28 40 06/03/20 10:00 84 19 98/63 (75) 96 06/03/20 10:00 98/63 06/03/20 09:49 40 06/03/20 09:12 54 12 99 06/03/20 09:00 76 15 109/65 (80) 96 06/03/20 09:00 109/65 06/03/20 08:00 40 06/03/20 08:00 103/59 06/03/20 08:00 98.1 76 17 103/59 (74) 96 06/03/20 08:00 Mechanical Ventilator 06/03/20 08:00 74 Height (Feet): 5 Height (Inches): 5.00 Weight (Pounds): 142 Gen: NAD in bed HEENT: NCAT, EOMI, PERRL Pulm: BL chest rise Abd: Soft, NTND Ext: No c/c/e Neuro: Awake Microbiology Date/Time Source Procedure Growth Status 06/01/20 18:45 Blood Blood Culture - Preliminary NO GROWTH AFTER 24 HOURS Resulted 06/01/20 18:30 Blood Blood Culture - Preliminary NO GROWTH AFTER 24 HOURS Resulted Laboratory Tests Test 06/04/20 03:40 White Blood Count 4.1 K/UL (4.8-10.8) L Red Blood Count 2.64 M/UL (4.20-5.40) L Hemoglobin 8.0 G/DL (12.0-16.0) L Hematocrit 23.8 % (37.0-47.0) L Mean Corpuscular Volume 90 FL (80-99) Mean Corpuscular Hemoglobin 30.2 PG (27.0-31.0) Mean Corpuscular Hemoglobin Concent 33.6 G/DL (32.0-36.0) Red Cell Distribution Width 13.3 % (11.6-14.8) Platelet Count 159 K/UL (150-450) Mean Platelet Volume 6.4 FL (6.5-10.1) L Neutrophils (%) (Auto) 73.4 % (45.0-75.0) Lymphocytes (%) (Auto) 12.3 % (20.0-45.0) L Monocytes (%) (Auto) 11.5 % (1.0-10.0) H Eosinophils (%) (Auto) 2.0 % (0.0-3.0) Basophils (%) (Auto) 0.8 % (0.0-2.0) Sodium Level 140 MMOL/L (136-145) Potassium Level 3.5 MMOL/L (3.5-5.1) Chloride Level 106 MMOL/L (98-107) Carbon Dioxide Level 28 MMOL/L (21-32) Anion Gap 6 mmol/L (5-15) Blood Urea Nitrogen 18 mg/dL (7-18) Creatinine 0.5 MG/DL (0.55-1.30) L Estimat Glomerular Filtration Rate > 60 mL/min (>60) Glucose Level 115 MG/DL (74-106) H Calcium Level 8.5 MG/DL (8.5-10.1) Phosphorus Level 2.1 MG/DL (2.5-4.9) L Magnesium Level 1.8 MG/DL (1.8-2.4) Current Medications Medications (Trade) Dose Ordered Sig/Morgan Route PRN Reason Start Time Stop Time Status Last Admin Dose Admin Acetaminophen (Tylenol) 650 mg Q4H PRN GT Temp >100.5 05/16/20 06:15 06/15/20 06:14 05/31/20 13:15 Acetaminophen (Tylenol) 650 mg Q4H PRN RECTAL Temp >100.5 05/16/20 19:45 06/15/20 19:44 05/17/20 18:30 Atropine Sulfate (Atropine 0.4mg/ ml) 0.4 mg Q2HR PRN IVP HR <45 05/29/20 21:30 06/28/20 19:24 05/30/20 22:39 Chlorhexidine Gluconate (Lilliam-Hex 2%) 1 applic DAILY@1999 05/15/20 20:00 08/13/20 19:59 06/03/20 20:54 Dextrose (Dextrose 50%) 25 ml Q30M PRN IV Hypoglycemia 05/22/20 00:00 08/20/20 00:00 Dextrose (Dextrose 50%) 50 ml Q30M PRN IV Hypoglycemia 05/22/20 00:00 08/20/20 00:00 Dopamine HCl/ Dextrose 250 ml @ 0 mls/hr Q24H IV 06/03/20 17:00 06/06/20 21:00 06/03/20 17:32 Enoxaparin Sodium (Lovenox) 60 mg EVERY 12 HOURS SUBQ 06/03/20 21:00 09/01/20 20:59 06/03/20 20:56 Insulin Aspart (NovoLOG) EVERY 6 HOURS SUBQ 05/22/20 06:00 08/20/20 05:59 05/27/20 05:57 Pantoprazole (Protonix) 40 mg DAILY IV 05/15/20 09:00 06/14/20 08:59 06/03/20 08:48 Sodium Chloride 1,000 ml @ 75 mls/hr [id number] IV 05/15/20 06:45 06/14/20 06:44 06/04/20 06:53 Zinc Oxide (Zinc Oxide) 1 applic TIDPRN PRN TOPIC Abdominal cramps 05/20/20 13:00 08/18/20 12:59 Alisa Beavers M.D. Jun 04, 2020 07:52
[2020-06-04] MEDS: Pantoprazole Inj IV SCH (08:25)
[2020-06-04] MEDS: Enoxaparin 60mg Inj SUBQ SCH ×2 (08:26→20:14)
--- NOTE | 2020-06-04 09:27 | General Progress Note ---
Subjective ROS Limited/Unobtainable: Yes Allergies: Coded Allergies: DIVALPROEX SODIUM (Verified Allergy, Unknown, 05/14/20) PENICILLINS (Verified Allergy, Unknown, 05/14/20) Subjective events noted and interval notes reviewed glucose values are stable on vent - in ICU Item Value Date Time Bedside Blood Glucose 126 mg/dl H 06/04/20 0600 Bedside Blood Glucose 110 mg/dl 06/04/20 0000 Bedside Blood Glucose 115 mg/dl 06/03/20 1746 Bedside Blood Glucose 133 mg/dl H 06/03/20 1200 Objective Last 24 Hour Vital Signs Date Time Temp Pulse Resp B/P (MAP) Pulse Ox O2 Delivery O2 Flow Rate FiO2 06/04/20 09:00 76 14 114/55 (74) 99 06/04/20 08:00 98.6 67 14 126/62 (83) 100 06/04/20 08:00 Mechanical Ventilator 06/04/20 08:00 40 06/04/20 07:30 67 16 83/46 (58) 99 06/04/20 07:00 67 19 97/53 (68) 100 06/04/20 06:36 69 12 06/04/20 06:00 105/76 06/04/20 06:00 63 17 89/47 (61) 100 06/04/20 05:00 96/48 06/04/20 05:00 68 12 96/54 (68) 99 06/04/20 04:00 98.2 65 17 95/46 (62) 93 06/04/20 04:00 Mechanical Ventilator 06/04/20 04:00 73 06/04/20 04:00 94/52 06/04/20 04:00 40 06/04/20 03:14 72 19 40 06/04/20 03:00 65 17 95/46 (62) 93 06/04/20 03:00 110/56 06/04/20 02:00 71/58 06/04/20 02:00 67 14 107/64 (78) 97 06/04/20 01:00 71 14 99/54 (69) 99 06/04/20 01:00 102/54 06/04/20 00:00 40 06/04/20 00:00 Mechanical Ventilator 06/04/20 00:00 99.0 79 16 103/61 (75) 98 06/04/20 00:00 125/55 06/04/20 00:00 68 06/03/20 23:16 68 13 40 06/03/20 23:00 73 15 102/55 (71) 99 06/03/20 23:00 102/65 06/03/20 22:00 116/69 06/03/20 22:00 83 15 116/69 (85) 97 06/03/20 21:00 73 13 110/58 (75) 99 06/03/20 21:00 103/61 06/03/20 20:00 40 06/03/20 20:00 102/60 06/03/20 20:00 Mechanical Ventilator 06/03/20 20:00 98.4 73 15 102/69 (80) 98 06/03/20 20:00 78 06/03/20 19:00 76 17 111/57 (75) 97 06/03/20 19:00 111/57 06/03/20 18:57 75 16 40 06/03/20 18:00 78 14 106/66 (79) 99 06/03/20 18:00 106/66 06/03/20 17:32 118/63 06/03/20 17:00 110/54 06/03/20 17:00 77 19 110/54 (72) 100 06/03/20 16:00 79 06/03/20 16:00 98.9 89 19 100/73 (82) 99 06/03/20 16:00 40 06/03/20 16:00 Mechanical Ventilator 06/03/20 16:00 100/73 06/03/20 15:45 86 18 104/67 (79) 100 06/03/20 15:30 92 19 109/55 (73) 96 06/03/20 15:15 82 18 113/61 (78) 98 06/03/20 15:05 82 15 40 06/03/20 15:00 86 15 126/63 (84) 97 06/03/20 15:00 126/63 06/03/20 14:00 109/59 06/03/20 14:00 80 17 109/59 (76) 97 06/03/20 13:00 118/68 06/03/20 13:00 84 18 118/68 (85) 98 06/03/20 12:04 94 06/03/20 12:00 Mechanical Ventilator 06/03/20 12:00 104 06/03/20 12:00 114/71 06/03/20 12:00 40 06/03/20 12:00 98.5 115 22 114/71 (85) 96 06/03/20 11:00 82 21 117/65 (82) 97 06/03/20 11:00 117/65 06/03/20 11:00 89 28 40 06/03/20 10:00 84 19 98/63 (75) 96 06/03/20 10:00 98/63 06/03/20 09:49 40 Intake and Output 06/03/20 06/04/20 19:00 07:00 Intake Total 1688.102 ml 1656.15 ml Output Total 1730 ml 1145 ml Balance -41.898 ml 511.15 ml Free Water 20 ml 180 ml IV Total 948.102 ml 876.15 ml Tube Feeding 720 ml 600 ml Output Urine Total 1730 ml 1070 ml Chest Tube Drainage Total 75 ml # Bowel Movements 2 3 Laboratory Tests 06/04/20 03:40: White Blood Count 4.1L, Red Blood Count 2.64L, Hemoglobin 8.0L, Hematocrit 23.8L , Mean Corpuscular Volume 90, Mean Corpuscular Hemoglobin 30.2, Mean Corpuscular Hemoglobin Concent 33.6, Red Cell Distribution Width 13.3, Platelet Count 159, Mean Platelet Volume 6.4L, Neutrophils (%) (Auto) 73.4, Lymphocytes (%) (Auto) 12.3L, Monocytes (%) (Auto) 11.5H, Eosinophils (%) (Auto) 2.0, Basophils (%) (Auto) 0.8, Sodium Level 140, Potassium Level 3.5, Chloride Level 106, Carbon Dioxide Level 28, Anion Gap 6, Blood Urea Nitrogen 18, Creatinine 0.5L, Estimat Glomerular Filtration Rate > 60, Glucose Level 115H, Calcium Level 8.5, Phosphorus Level 2.1L, Magnesium Level 1.8 Height (Feet): 5 Height (Inches): 5.00 Weight (Pounds): 142 General Appearance: other - on vent Neck: other - tracheostomy Respiratory/Chest: lungs clear Abdomen: other - PEG Objective Current Medications Medications (Trade) Dose Ordered Sig/Morgan Route PRN Reason Start Time Stop Time Status Last Admin Dose Admin Acetaminophen (Tylenol) 650 mg Q4H PRN GT Temp >100.5 05/16/20 06:15 06/15/20 06:14 05/31/20 13:15 Acetaminophen (Tylenol) 650 mg Q4H PRN RECTAL Temp >100.5 05/16/20 19:45 06/15/20 19:44 05/17/20 18:30 Atropine Sulfate (Atropine 0.4mg/ ml) 0.4 mg Q2HR PRN IVP HR <45 05/29/20 21:30 06/28/20 19:24 05/30/20 22:39 Chlorhexidine Gluconate (Lilliam-Hex 2%) 1 applic DAILY@2000 TOPIC 05/15/20 20:00 08/13/20 19:59 06/03/20 20:54 Dextrose (Dextrose 50%) 25 ml Q30M PRN IV Hypoglycemia 05/22/20 00:00 08/20/20 00:00 Dextrose (Dextrose 50%) 50 ml Q30M PRN IV Hypoglycemia 05/22/20 00:00 08/20/20 00:00 Dopamine HCl/ Dextrose 250 ml @ 0 mls/hr Q24H IV 06/03/20 17:00 06/06/20 21:00 06/03/20 17:32 Enoxaparin Sodium (Lovenox) 60 mg EVERY 12 HOURS SUBQ 06/03/20 21:00 09/01/20 20:59 06/04/20 08:26 Insulin Aspart (NovoLOG) EVERY 6 HOURS SUBQ 05/22/20 06:00 08/20/20 05:59 05/27/20 05:57 Pantoprazole (Protonix) 40 mg DAILY IV 05/15/20 09:00 06/14/20 08:59 06/04/20 08:25 Sodium Chloride 1,000 ml @ 75 mls/hr [id number] IV 05/15/20 06:45 06/14/20 06:44 06/04/20 06:53 Zinc Oxide (Zinc Oxide) 1 applic TIDPRN PRN TOPIC Abdominal cramps 05/20/20 13:00 08/18/20 12:59 Assessment/Plan Problem List: (1) COVID-19 ICD Codes: U07.1 - COVID-19 SNOMED: 950160375 (2) Elevated d-dimer ICD Codes: R79.89 - Other specified abnormal findings of blood chemistry SNOMED: 810714204 (3) Rapid atrial fibrillation ICD Codes: I48.91 - Unspecified atrial fibrillation SNOMED: 794724741 (4) Sepsis ICD Codes: A41.9 - Sepsis, unspecified organism SNOMED: 11937777 (5) Respiratory failure ICD Codes: J96.90 - Respiratory failure, unspecified, unspecified whether with hypoxia or hypercapnia SNOMED: 168195325 (6) Renal failure ICD Codes: N19 - Unspecified kidney failure SNOMED: 19881109 (7) Hypernatremia ICD Codes: E87.0 - Hyperosmolality and hypernatremia SNOMED: 564638707 (8) T2DM (type 2 diabetes mellitus) ICD Codes: E11.9 - Type 2 diabetes mellitus without complications SNOMED: 07236556 Status: stable Assessment/Plan: no need for basal insulin continue Novolog sliding scale every 6 hours hypoglycemia protocol in order Chau Shelley MD Jun 04, 2020 09:27
--- NOTE | 2020-06-04 09:38 | NUR ---
NURSE NOTES: blood cultures collected and sent to lab
--- NOTE | 2020-06-04 11:05 | Pulmonology Progress Note ---
Subjective ROS Limited/Unobtainable: Yes Interval Events: Unable to extubtae due to poor mental status; s/p trach and PEG Constitutional: Reports: no symptoms HEENT: Repors: no symptoms Respiratory: Reports: no symptoms Cardiovascular: Reports: no symptoms Gastrointestinal/Abdominal: Reports: no symptoms Genitourinary: Reports: no symptoms Allergies: Coded Allergies: DIVALPROEX SODIUM (Verified Allergy, Unknown, 05/14/20) PENICILLINS (Verified Allergy, Unknown, 05/14/20) All Systems: reviewed and negative except above Objective Last 24 Hour Vital Signs Date Time Temp Pulse Resp B/P (MAP) Pulse Ox O2 Delivery O2 Flow Rate FiO2 06/04/20 10:00 98 17 100/58 (72) 100 06/04/20 09:00 76 14 114/55 (74) 99 06/04/20 08:00 98.6 67 14 126/62 (83) 100 06/04/20 08:00 Mechanical Ventilator 06/04/20 08:00 40 06/04/20 08:00 71 06/04/20 07:30 67 16 83/46 (58) 99 06/04/20 07:00 67 19 97/53 (68) 100 06/04/20 06:36 69 12 06/04/20 06:00 105/76 06/04/20 06:00 63 17 89/47 (61) 100 06/04/20 05:00 96/48 06/04/20 05:00 68 12 96/54 (68) 99 06/04/20 04:00 98.2 65 17 95/46 (62) 93 06/04/20 04:00 Mechanical Ventilator 06/04/20 04:00 73 06/04/20 04:00 94/52 06/04/20 04:00 40 06/04/20 03:14 72 19 40 06/04/20 03:00 65 17 95/46 (62) 93 06/04/20 03:00 110/56 06/04/20 02:00 71/58 06/04/20 02:00 67 14 107/64 (78) 97 06/04/20 01:00 71 14 99/54 (69) 99 06/04/20 01:00 102/54 06/04/20 00:00 40 06/04/20 00:00 Mechanical Ventilator 06/04/20 00:00 99.0 79 16 103/61 (75) 98 06/04/20 00:00 125/55 06/04/20 00:00 68 06/03/20 23:16 68 13 40 06/03/20 23:00 73 15 102/55 (71) 99 06/03/20 23:00 102/65 06/03/20 22:00 116/69 06/03/20 22:00 83 15 116/69 (85) 97 06/03/20 21:00 73 13 110/58 (75) 99 06/03/20 21:00 103/61 06/03/20 20:00 40 06/03/20 20:00 102/60 06/03/20 20:00 Mechanical Ventilator 06/03/20 20:00 98.4 73 15 102/69 (80) 98 06/03/20 20:00 78 06/03/20 19:00 76 17 111/57 (75) 97 06/03/20 19:00 111/57 06/03/20 18:57 75 16 40 06/03/20 18:00 78 14 106/66 (79) 99 06/03/20 18:00 106/66 06/03/20 17:32 118/63 06/03/20 17:00 110/54 06/03/20 17:00 77 19 110/54 (72) 100 06/03/20 16:00 79 06/03/20 16:00 98.9 89 19 100/73 (82) 99 06/03/20 16:00 40 06/03/20 16:00 Mechanical Ventilator 06/03/20 16:00 100/73 06/03/20 15:45 86 18 104/67 (79) 100 06/03/20 15:30 92 19 109/55 (73) 96 06/03/20 15:15 82 18 113/61 (78) 98 06/03/20 15:05 82 15 40 06/03/20 15:00 86 15 126/63 (84) 97 06/03/20 15:00 126/63 06/03/20 14:00 109/59 06/03/20 14:00 80 17 109/59 (76) 97 06/03/20 13:00 118/68 06/03/20 13:00 84 18 118/68 (85) 98 06/03/20 12:04 94 06/03/20 12:00 Mechanical Ventilator 06/03/20 12:00 104 06/03/20 12:00 114/71 06/03/20 12:00 40 06/03/20 12:00 98.5 115 22 114/71 (85) 96 Intake and Output 06/03/20 06/04/20 19:00 07:00 Intake Total 1688.102 ml 1716.15 ml Output Total 1730 ml 1270 ml Balance -41.898 ml 446.15 ml Free Water 20 ml 180 ml IV Total 948.102 ml 876.15 ml Tube Feeding 720 ml 660 ml Output Urine Total 1730 ml 1195 ml Chest Tube Drainage Total 75 ml # Bowel Movements 2 3 General Appearance: no acute distress HEENT: normocephalic, status post trach Respiratory: chest wall non-tender, lungs clear Cardiovascular: normal peripheral pulses, normal rate Abdomen: normal bowel sounds Microbiology Date/Time Source Procedure Growth Status 06/01/20 18:45 Blood Blood Culture - Preliminary NO GROWTH AFTER 24 HOURS Resulted 06/01/20 18:30 Blood Blood Culture - Preliminary NO GROWTH AFTER 24 HOURS Resulted Laboratory Tests 06/04/20 03:40: White Blood Count 4.1L, Red Blood Count 2.64L, Hemoglobin 8.0L, Hematocrit 23.8L , Mean Corpuscular Volume 90, Mean Corpuscular Hemoglobin 30.2, Mean Corpuscular Hemoglobin Concent 33.6, Red Cell Distribution Width 13.3, Platelet Count 159, Mean Platelet Volume 6.4L, Neutrophils (%) (Auto) 73.4, Lymphocytes (%) (Auto) 12.3L, Monocytes (%) (Auto) 11.5H, Eosinophils (%) (Auto) 2.0, Basophils (%) (Auto) 0.8, Sodium Level 140, Potassium Level 3.5, Chloride Level 106, Carbon Dioxide Level 28, Anion Gap 6, Blood Urea Nitrogen 18, Creatinine 0.5L, Estimat Glomerular Filtration Rate > 60, Glucose Level 115H, Calcium Level 8.5, Phosphorus Level 2.1L, Magnesium Level 1.8 Current Medications Medications (Trade) Dose Ordered Sig/Morgan Route PRN Reason Start Time Stop Time Status Last Admin Dose Admin Acetaminophen (Tylenol) 650 mg Q4H PRN GT Temp >100.5 05/16/20 06:15 06/15/20 06:14 05/31/20 13:15 Acetaminophen (Tylenol) 650 mg Q4H PRN RECTAL Temp >100.5 05/16/20 19:45 06/15/20 19:44 05/17/20 18:30 Atropine Sulfate (Atropine 0.4mg/ ml) 0.4 mg Q2HR PRN IVP HR <45 05/29/20 21:30 06/28/20 19:24 05/30/20 22:39 Chlorhexidine Gluconate (Lilliam-Hex 2%) 1 applic DAILY@2000 TOPIC 05/15/20 20:00 08/13/20 19:59 06/03/20 20:54 Dextrose (Dextrose 50%) 25 ml Q30M PRN IV Hypoglycemia 05/22/20 00:00 08/20/20 00:00 Dextrose (Dextrose 50%) 50 ml Q30M PRN IV Hypoglycemia 05/22/20 00:00 08/20/20 00:00 Dopamine HCl/ Dextrose 250 ml @ 0 mls/hr Q24H IV 06/03/20 17:00 06/06/20 21:00 06/03/20 17:32 Enoxaparin Sodium (Lovenox) 60 mg EVERY 12 HOURS SUBQ 06/03/20 21:00 09/01/20 20:59 06/04/20 08:26 Insulin Aspart (NovoLOG) EVERY 6 HOURS SUBQ 05/22/20 06:00 08/20/20 05:59 05/27/20 05:57 Pantoprazole (Protonix) 40 mg DAILY IV 05/15/20 09:00 06/14/20 08:59 06/04/20 08:25 Sodium Chloride 1,000 ml @ 75 mls/hr [id number] IV 05/15/20 06:45 06/14/20 06:44 06/04/20 06:53 Zinc Oxide (Zinc Oxide) 1 applic TIDPRN PRN TOPIC Abdominal cramps 05/20/20 13:00 08/18/20 12:59 Assessment/Plan Assessment/Plan IMPRESSION: 1. Acute respiratory failure. 2. Diabetes mellitus with hyperglycemia. 3. Septic shock. 4. Chronic G-tube. 5. Decubitus. 6. History of CHF. DISCUSSION: Continue fluids and antibiotics. Pressors prn S/p trach Will begin weaning On 40% FiO2 DVT and GI prophylaxis. Respiratory precautions due to COVID-[address] Wade. S/p PEG medications/laboratory data/nursing notes/ICU care reviewed in detail note reviewed and edited care discussed with RN and RT ICU time spent >40 minutes Hung Arora MD Jun 04, 2020 11:05
--- NOTE | 2020-06-04 12:52 | NUR ---
NURSE NOTES: Spoke with Dr. Arora who said "okay" to putting in order for weaning for RT, Ngoc. order noted and carried out.
--- NOTE | 2020-06-04 13:11 | NUR ---
NURSE NOTES: RT Ngoc @ bedside attempting to wean patient
[2020-06-04] MEDS: TAZOBACTAM IV SCH ×2 (14:19→22:48)
[2020-06-04] MEDS: NS IV SCH ×2 (14:19→22:48)
[2020-06-04] MEDS: CEFTOLOZANE IV SCH ×2 (14:19→22:48)
--- NOTE | 2020-06-04 14:41 | General Progress Note ---
Subjective Date patient seen: Jun 04, 2020 ROS Limited/Unobtainable: Yes Allergies: Coded Allergies: DIVALPROEX SODIUM (Verified Allergy, Unknown, 05/14/20) PENICILLINS (Verified Allergy, Unknown, 05/14/20) All Systems: reviewed and negative except above Subjective Non verbal, tacheostomy and PEG in place, she is noted to be grimacing. Dopamine STILL ON Objective Last 24 Hour Vital Signs Date Time Temp Pulse Resp B/P (MAP) Pulse Ox O2 Delivery O2 Flow Rate FiO2 06/04/20 14:00 80 14 110/52 (71) 100 06/04/20 13:00 83 15 104/57 (73) 99 06/04/20 12:55 97 06/04/20 12:00 Mechanical Ventilator 06/04/20 12:00 94 06/04/20 12:00 40 06/04/20 12:00 98.9 82 17 102/68 (79) 99 06/04/20 11:06 73 13 40 06/04/20 11:00 72 12 108/57 (74) 99 06/04/20 10:00 98 17 100/58 (72) 100 06/04/20 09:00 76 14 114/55 (74) 99 06/04/20 08:00 98.6 67 14 126/62 (83) 100 06/04/20 08:00 Mechanical Ventilator 06/04/20 08:00 40 06/04/20 08:00 71 06/04/20 07:30 67 16 83/46 (58) 99 06/04/20 07:02 68 12 40 06/04/20 07:00 67 19 97/53 (68) 100 06/04/20 06:36 69 12 06/04/20 06:00 105/76 06/04/20 06:00 63 17 89/47 (61) 100 06/04/20 05:00 96/48 06/04/20 05:00 68 12 96/54 (68) 99 06/04/20 04:00 98.2 65 17 95/46 (62) 93 06/04/20 04:00 Mechanical Ventilator 06/04/20 04:00 73 06/04/20 04:00 94/52 06/04/20 04:00 40 06/04/20 03:14 72 19 40 06/04/20 03:00 65 17 95/46 (62) 93 06/04/20 03:00 110/56 06/04/20 02:00 71/58 06/04/20 02:00 67 14 107/64 (78) 97 06/04/20 01:00 71 14 99/54 (69) 99 06/04/20 01:00 102/54 06/04/20 00:00 40 06/04/20 00:00 Mechanical Ventilator 06/04/20 00:00 99.0 79 16 103/61 (75) 98 06/04/20 00:00 125/55 06/04/20 00:00 68 06/03/20 23:16 68 13 40 06/03/20 23:00 73 15 102/55 (71) 99 06/03/20 23:00 102/65 06/03/20 22:00 116/69 06/03/20 22:00 83 15 116/69 (85) 97 06/03/20 21:00 73 13 110/58 (75) 99 06/03/20 21:00 103/61 06/03/20 20:00 40 06/03/20 20:00 102/60 06/03/20 20:00 Mechanical Ventilator 06/03/20 20:00 98.4 73 15 102/69 (80) 98 06/03/20 20:00 78 06/03/20 19:00 76 17 111/57 (75) 97 06/03/20 19:00 111/57 06/03/20 18:57 75 16 40 06/03/20 18:00 78 14 106/66 (79) 99 06/03/20 18:00 106/66 06/03/20 17:32 118/63 06/03/20 17:00 110/54 06/03/20 17:00 77 19 110/54 (72) 100 06/03/20 16:00 79 06/03/20 16:00 98.9 89 19 100/73 (82) 99 06/03/20 16:00 40 06/03/20 16:00 Mechanical Ventilator 06/03/20 16:00 100/73 06/03/20 15:45 86 18 104/67 (79) 100 06/03/20 15:30 92 19 109/55 (73) 96 06/03/20 15:15 82 18 113/61 (78) 98 06/03/20 15:05 82 15 40 06/03/20 15:00 86 15 126/63 (84) 97 06/03/20 15:00 126/63 Intake and Output 06/03/20 06/04/20 19:00 07:00 Intake Total 1688.102 ml 1716.15 ml Output Total 1730 ml 1270 ml Balance -41.898 ml 446.15 ml Free Water 20 ml 180 ml IV Total 948.102 ml 876.15 ml Tube Feeding 720 ml 660 ml Output Urine Total 1730 ml 1195 ml Chest Tube Drainage Total 75 ml # Bowel Movements 2 3 Laboratory Tests 06/04/20 03:40: White Blood Count 4.1L, Red Blood Count 2.64L, Hemoglobin 8.0L, Hematocrit 23.8L , Mean Corpuscular Volume 90, Mean Corpuscular Hemoglobin 30.2, Mean Corpuscular Hemoglobin Concent 33.6, Red Cell Distribution Width 13.3, Platelet Count 159, Mean Platelet Volume 6.4L, Neutrophils (%) (Auto) 73.4, Lymphocytes (%) (Auto) 12.3L, Monocytes (%) (Auto) 11.5H, Eosinophils (%) (Auto) 2.0, Basophils (%) (A uto) 0.8, Sodium Level 140, Potassium Level 3.5, Chloride Level 106, Carbon Dioxide Level 28, Anion Gap 6, Blood Urea Nitrogen 18, Creatinine 0.5L, Estimat Glomerular Filtration Rate > 60, Glucose Level 115H, Calcium Level 8.5, Phosphorus Level 2.1L, Magnesium Level 1.8 Height (Feet): 5 Height (Inches): 5.00 Weight (Pounds): 142 General Appearance: WD/WN EENT: PERRL/EOMI Neck: non-tender Cardiovascular: normal rate Respiratory/Chest: decreased breath sounds 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 # Septic with element of cardiogenic shock Etiology COVID 19 vs UTI vs bacteremia / contaminant and NSTEMI Bcx POSITIVE WITH G+ Cocci s/p vancomycin Sputum Cx 05/25 with Pseudomonas. Colonizer and recent completion of 14 day treatment with Meropenem U cx 05/14 Proteus Mirabillis Meropenem 14 days completed Vancomycin stopped stopped Cefepime Dexamethasone 10 day course completed Leukocytosis improved. Monitor clinically for now and OFF antibiotics per ID COVID NEGATIVE x 2 05/25 and 05/26 ID Staff Reporter today recommends: - Repeat BCx today - Start Zerbaxa for MDR PsA bacteremia, if worsening can try double coverage w/ colistin or polyB but overall slightly stable currently # Acute respiratory failure Intubated. Self extubated 05/27 and re intubated by ED MD successfully. ICU care appreciated Dr. Rock following Ventilator management per ICU-pulmonary FiO2 40 % today. T piece. Medically tracheostomy is needed and life saving procedure as she is not tolerating wean off. Overall, her quality of life will not improve from prior baseline with advanced dementia. Will need permanent ventilator support via tracheostomy and subacute level of care. Critical care attending, Surgery and GI attendings notified to plan PEG and TRACH as medically indicated and completed 06/02/20 # SVT vs A. Flutter s/p DC x 3 # NSTEMI HR is controlled in the 100 range and tolerating Digoxin Vasopressors in place Levophed at [address] Morillo requested and TTE requested and poor window. Troponin 3.4 now 0.7 EKG 05/17 NSR, stable. Inferior wall ischemia IF NOT ABLE TO WEAN OFF PRESSORS, Repeat TTE is indicated to assess EF. # AG metabolic acidosis Ddx lactic acidosis Improved. # Hyperglycemia r/o DKA ABG and Ketones negative Endocrine consult with Dr. Shelley IV insulin gtt stopped and in SQ insulin coverage now # Hypernatremia resolved Improving Monitor BMP # COVID 19 Positive on admission, now NEGATIVE as of 05/25/20 On Dexamethasone completed 10 day course Contact and droplet isolation # Dysphagia PEG REMOVED 05/16 Carlo Vargas consulted NGT placed and Tube feeds started 05/18 and being tolerated at 45 cc hr Glucerna 1.2 # Severe protein caloric malnutrition with Albumin 1.5 RD follow up # Thrombocytopenia Platelets down from 80 K to 64 K to 66 K ( OFF Heparin ) and improved to normal range. 05/17 dc heparin, use SCD, order US Liver, HIT Ab, HIV negative Monitor carefully as Lovenox was restarted 06/03 for DVT # Newly detected lower extremity DVT HOLD off anticoagulation as tracheostomy and PEG done 06/[address] Garcia and agreed to start anticoagulation therapy for DVT Lovenox at 1 mg Kg SQ q 12 hr started 06/03 PM # Hypokalemia # Hypophosphatemia Replace as needed Monitor in AM # Anemia Etiology likely secondary to multiple blood draws vs RAULITO vs less likely GIB FOBT iron studies Trend Hb and PRN PRBC if Hb less than 8 # Dementia Baseline # FULL CODE SW follow up to reach out to DPOA and consider change in code status due to high morbidity and risk of inpatient mortality. Paperwork completed for superior court of the [facility] for request of tracheostomy and gastrostomy placement due to medical need on 05/26/20 Bioethic consult requested and spoke with Dr. Hung from ethics and I agree with his assessment that the patient quality of life will NOT IMPROVE with tracheostomy and replacement of PEG. The patient is very limited due to her underlying dementia and now unable to wean off the ventilator. SHE HAD THE NEED TO GET A TRACHEOSTOMY and PEG was replaced 06/01/[address] Garcia DUE TO MEDICAL NECESSITY AND LIFE SAVING PROCEDURES. DR. ROCK AND I AGREED AND SIGNED 2 MD CONS[address] FORM. PENDING [address] DECISION REGARDING CODE STATUS. DNR IS MEDICALLY INDICATED. Due to the medical need for TRACH and PEG, this will be scheduled at this time for today. > 50 min spent in coordination of care and consultation with physicians and RN. Jessica Wade MD Jun 04, 2020 14:41
[2020-06-04 14:56] LABS: % IRON SATURATION 19 % (15-50); IRON 28 ug/dL (50-175); TOTAL IRON BINDING CAPACITY 147 ug/dL (250-450)
--- NOTE | 2020-06-04 15:00 | NUR ---
NURSE NOTES: Dr. Morillo @ bedside. Verbal order of florinef 0.1 mg daily. Order noted and carried out.
--- NOTE | 2020-06-04 16:05 | NUR ---
NURSE NOTES: Pt repositioned, oral care done. Pt in stable condition, with no signs of distress.
--- NOTE | 2020-06-04 16:06 | Cardiac Electrophysiology PN ---
Assessment/Plan Assessment/Plan 1. Hia-FI-[id number] myocardial infarction. Her troponin was 1.258, 1.2, 1.9, 3.4 and the down to 0.7 EKG shows Inferolateral ischemia Due to septic shock, DCCV and Renal failure. Echo had poor windows. 2. PAF with RVR. S/P DCCV 3 times No more fib or accelerated junctional rhythm. Off beta-ramakrishna or calcium-channel ramakrishna as the patient is still on Dopamine 3. S/P Septic shock. On Dopamine and antibiotic. Keep off Midodrine in view of bradycardia. Add Florinef 0.1 mg daily 4. Bradycardia requiring Atropine x 3 on 05/30/20. On Dopamine 4 mcg 5. Severe hypernatremia with sodium of 174, BUN of 131, creatinine 2.7 due to dehydration. Improved 6. Dysphagia, status post PEG replacement per Dr Matos 7. History of CVA and dementia. 8. Respiratory failure, S/P Tracheostomy by Dr. Garcia 06/01/20 KIMMY RN Subjective Subjective In ICU in SR with no atrial fib but had bradycardia and received atropine 3 time s on 05/31/20 Still on Dopamine 4 mcg/kg/ min. S/P Trach and PEG on 06/02/20. ECG 06/02/20 showed inferolateral ischemia Objective Last 24 Hour Vital Signs Date Time Temp Pulse Resp B/P (MAP) Pulse Ox O2 Delivery O2 Flow Rate FiO2 06/04/20 15:00 80 16 97/45 (62) 98 06/04/20 14:00 80 14 110/52 (71) 100 06/04/20 13:00 83 15 104/57 (73) 99 06/04/20 12:55 97 06/04/20 12:00 Mechanical Ventilator 06/04/20 12:00 94 06/04/20 12:00 40 06/04/20 12:00 98.9 82 17 102/68 (79) 99 06/04/20 11:06 73 13 40 06/04/20 11:00 72 12 108/57 (74) 99 06/04/20 10:00 98 17 100/58 (72) 100 06/04/20 09:00 76 14 114/55 (74) 99 06/04/20 08:00 98.6 67 14 126/62 (83) 100 06/04/20 08:00 Mechanical Ventilator 06/04/20 08:00 40 06/04/20 08:00 71 06/04/20 07:30 67 16 83/46 (58) 99 06/04/20 07:02 68 12 40 06/04/20 07:00 67 19 97/53 (68) 100 06/04/20 06:36 69 12 06/04/20 06:00 105/76 06/04/20 06:00 63 17 89/47 (61) 100 06/04/20 05:00 96/48 06/04/20 05:00 68 12 96/54 (68) 99 06/04/20 04:00 98.2 65 17 95/46 (62) 93 06/04/20 04:00 Mechanical Ventilator 06/04/20 04:00 73 06/04/20 04:00 94/52 06/04/20 04:00 40 06/04/20 03:14 72 19 40 06/04/20 03:00 65 17 95/46 (62) 93 06/04/20 03:00 110/56 06/04/20 02:00 71/58 06/04/20 02:00 67 14 107/64 (78) 97 06/04/20 01:00 71 14 99/54 (69) 99 06/04/20 01:00 102/54 06/04/20 00:00 40 06/04/20 00:00 Mechanical Ventilator 06/04/20 00:00 99.0 79 16 103/61 (75) 98 06/04/20 00:00 125/55 06/04/20 00:00 68 06/03/20 23:16 68 13 40 06/03/20 23:00 73 15 102/55 (71) 99 06/03/20 23:00 102/65 06/03/20 22:00 116/69 06/03/20 22:00 83 15 116/69 (85) 97 06/03/20 21:00 73 13 110/58 (75) 99 06/03/20 21:00 103/61 06/03/20 20:00 40 06/03/20 20:00 102/60 06/03/20 20:00 Mechanical Ventilator 06/03/20 20:00 98.4 73 15 102/69 (80) 98 06/03/20 20:00 78 06/03/20 19:00 76 17 111/57 (75) 97 06/03/20 19:00 111/57 06/03/20 18:57 75 16 40 06/03/20 18:00 78 14 106/66 (79) 99 06/03/20 18:00 106/66 06/03/20 17:32 118/63 06/03/20 17:00 110/54 06/03/20 17:00 77 19 110/54 (72) 100 Intake and Output 06/03/20 06/04/20 19:00 07:00 Intake Total 1688.102 ml 1716.15 ml Output Total 1730 ml 1270 ml Balance -41.898 ml 446.15 ml Free Water 20 ml 180 ml IV Total 948.102 ml 876.15 ml Tube Feeding 720 ml 660 ml Output Urine Total 1730 ml 1195 ml Chest Tube Drainage Total 75 ml # Bowel Movements 2 3 Laboratory Tests Test 06/04/20 03:40 White Blood Count 4.1 K/UL (4.8-10.8) L Red Blood Count 2.64 M/UL (4.20-5.40) L Hemoglobin 8.0 G/DL (12.0-16.0) L Hematocrit 23.8 % (37.0-47.0) L Mean Corpuscular Volume 90 FL (80-99) Mean Corpuscular Hemoglobin 30.2 PG (27.0-31.0) Mean Corpuscular Hemoglobin Concent 33.6 G/DL (32.0-36.0) Red Cell Distribution Width 13.3 % (11.6-14.8) Platelet Count 159 K/UL (150-450) Mean Platelet Volume 6.4 FL (6.5-10.1) L Neutrophils (%) (Auto) 73.4 % (45.0-75.0) Lymphocytes (%) (Auto) 12.3 % (20.0-45.0) L Monocytes (%) (Auto) 11.5 % (1.0-10.0) H Eosinophils (%) (Auto) 2.0 % (0.0-3.0) Basophils (%) (Auto) 0.8 % (0.0-2.0) Sodium Level 140 MMOL/L (136-145) Potassium Level 3.5 MMOL/L (3.5-5.1) Chloride Level 106 MMOL/L (98-107) Carbon Dioxide Level 28 MMOL/L (21-32) Anion Gap 6 mmol/L (5-15) Blood Urea Nitrogen 18 mg/dL (7-18) Creatinine 0.5 MG/DL (0.55-1.30) L Estimat Glomerular Filtration Rate > 60 mL/min (>60) Glucose Level 115 MG/DL (74-106) H Calcium Level 8.5 MG/DL (8.5-10.1) Phosphorus Level 2.1 MG/DL (2.5-4.9) L Magnesium Level 1.8 MG/DL (1.8-2.4) Iron Level Pending Unsaturated Iron Binding Pending Microbiology Date/Time Source Procedure Growth Status 06/01/20 18:45 Blood Blood Culture - Preliminary NO GROWTH AFTER 24 HOURS Resulted 06/01/20 18:30 Blood Blood Culture - Preliminary NO GROWTH AFTER 24 HOURS Resulted Objective HEAD AND NECK: No JVD. Tracheostomy in place. LUNGS: Coarse rhonchi. CARDIOVASCULAR: Regular S1 and S2 with no gallop. ABDOMEN: Soft. G-tube site in place EXTREMITIES: Show no pitting edema. Norman Morillo MD Jun 04, 2020 16:06
[2020-06-04] MEDS: DOPamine 400mg/250ml 250 ML IV SCH (16:33)
--- NOTE | 2020-06-04 16:43 | NUR ---
NURSE NOTES: Pt in lying in bed with no acute distress noted. SR on the monitor, all vitals stable. Pt to be transferred to SDU at end of shift. Addendum: 06/04/20 at 1644 by Morenita Cadet RN INCORRECT PATIENT
--- NOTE | 2020-06-04 16:46 | NUR ---
NURSE NOTES: pt repositioned, suctioned, and oral care done.
--- NOTE | 2020-06-04 18:50 | NUR ---
NURSE NOTES: Around 1830, pt's blood pressure increased to 150 systolic. Dopamine decreased to 2 mcg/kg/min. At 1845, bp increased significantly to 170s/180s systolic. Dopamine on hold. Pt vomited small amount. Pt suctioned.
--- NOTE | 2020-06-04 19:00 | NUR ---
NURSE NOTES: Received patient and report from SARA Xavier. Patient is observed resting in bed and remains alert and disoriented. Pt currently unable to follow commands but calm and cooperative with care. No pain noted upon assessment. Pt is currently trach to vent and appears to be tolerating settings well. Vent settings as follows: AC 12, TV 500 FiO2 40% PEEP 5 with an O2 saturation of 96% noted at this time. Bilateral lower lobe breath sounds noted to be diminished upon auscultation. Pt placed back on tele monitor and noted to be SR with a HR of 93. Right IJ noted which remains asymptomatic, intact and patent. Central line dressing remains clean, dry and intact.1/2 NS currently infusing at 75mL/hr. VS obtained and noted to be stable at this time. GT noted which remains intact and patent with feeding currently infusing at 60mL/hr with no residual noted. Active bowel sounds noted in all four quadrants; abdomen remains round and soft. Arauz catheter noted, draining to yellow urine to gravity. Pt noted to be calm and cooperative with care, pt education provided on clinical indication for the use of restraints, will remove bilateral soft wrist restraints and continue to monitor pt. ROM exercises provided and CMS remains intact. Diagnostics reviewed at bedside. Skin alterations noted. Fall, Aspiration and Skin precautions observed. Pt remains resting in bed; Bed remains in the lowest position with the safety wheels engaged, call light within reach, side rails up x3 and bed alarm activated. Will continue plan of care. Will continue to monitor.
--- NOTE | 2020-06-04 19:08 | NUR ---
NURSE HAND-OFF REPORT: Latest Vital Signs: Temperature 98.7 , Pulse 95 , B/P 180 /145 , Respiratory Rate 18 , O2 SAT 100 , Mechanical Ventilator, O2 Flow Rate 12.0 . Vital Sign Comment: EKG Rhythm: Sinus Rhythm Rhythm change?: N Notified?: Chucky Pierce MD Response: No New Orders Received Latest Garza Fall Score: 50 Fall Risk: High Risk Safety Measures: Call light Within Reach, Bed Alarm Zone 1, Side Rails Side Rails x2, Bed position Low and Locked. Fall Precautions: Yellow Socks Yellow Gown Door Sign Patient Fall Education Report given to SARA Petersen.
--- NOTE | 2020-06-04 20:02 | Surgery Progress Note ---
Surgery Progress Note Subjective Procedure Performed trach egd with peg Symptoms: improved, tolerating diet Objective Last 24 Hour Vital Signs Date Time Temp Pulse Resp B/P (MAP) Pulse Ox O2 Delivery O2 Flow Rate FiO2 06/04/20 19:41 101 23 100 06/04/20 18:45 180/145 06/04/20 18:30 156/136 06/04/20 18:00 95 18 88/76 (80) 100 06/04/20 18:00 98/76 06/04/20 17:00 90 16 84/47 (59) 100 06/04/20 17:00 94/52 06/04/20 16:00 Mechanical Ventilator 06/04/20 16:00 75 16 116/59 (78) 95 06/04/20 16:00 Mechanical Ventilator 06/04/20 16:00 77 06/04/20 16:00 40 06/04/20 16:00 106/65 06/04/20 16:00 98.7 77 20 106/57 (73) 94 06/04/20 15:00 73 13 40 06/04/20 15:00 91/45 06/04/20 15:00 80 16 97/45 (62) 98 06/04/20 14:00 80 14 110/52 (71) 100 06/04/20 14:00 110/52 06/04/20 13:00 83 15 104/57 (73) 99 06/04/20 13:00 104/57 06/04/20 12:55 97 06/04/20 12:00 Mechanical Ventilator 06/04/20 12:00 94 06/04/20 12:00 102/68 06/04/20 12:00 40 06/04/20 12:00 98.9 82 17 102/68 (79) 99 06/04/20 11:06 73 13 40 06/04/20 11:00 108/57 06/04/20 11:00 72 12 108/57 (74) 99 06/04/20 10:00 98 17 100/58 (72) 100 06/04/20 10:00 100/58 06/04/20 09:00 76 14 114/55 (74) 99 06/04/20 09:00 114/55 06/04/20 08:00 98.6 67 14 126/62 (83) 100 06/04/20 08:00 126/62 9/26/20 08:00 Mechanical Ventilator 06/04/20 08:00 40 06/04/20 08:00 71 06/04/20 07:30 67 16 83/46 (58) 99 06/04/20 07:30 83/46 06/04/20 07:02 68 12 40 06/04/20 07:00 110/68 06/04/20 07:00 67 19 97/53 (68) 100 06/04/20 06:36 69 12 06/04/20 06:00 105/76 06/04/20 06:00 63 17 89/47 (61) 100 06/04/20 05:00 96/48 06/04/20 05:00 68 12 96/54 (68) 99 06/04/20 04:00 98.2 65 17 95/46 (62) 93 06/04/20 04:00 Mechanical Ventilator 06/04/20 04:00 73 06/04/20 04:00 94/52 06/04/20 04:00 40 06/04/20 03:14 72 19 40 06/04/20 03:00 65 17 95/46 (62) 93 06/04/20 03:00 110/56 06/04/20 02:00 71/58 06/04/20 02:00 67 14 107/64 (78) 97 06/04/20 01:00 71 14 99/54 (69) 99 06/04/20 01:00 102/54 06/04/20 00:00 40 06/04/20 00:00 Mechanical Ventilator 06/04/20 00:00 99.0 79 16 103/61 (75) 98 06/04/20 00:00 125/55 06/04/20 00:00 68 06/03/20 23:16 68 13 40 06/03/20 23:00 73 15 102/55 (71) 99 06/03/20 23:00 102/65 06/03/20 22:00 116/69 06/03/20 22:00 83 15 116/69 (85) 97 06/03/20 21:00 73 13 110/58 (75) 99 06/03/20 21:00 103/61 I&O Intake and Output 06/03/20 06/04/20 19:00 07:00 Intake Total 1688.102 ml 1720.80 ml Output Total 1730 ml 1270 ml Balance -41.898 ml 450.80 ml Free Water 20 ml 180 ml IV Total 948.102 ml 880.80 ml Tube Feeding 720 ml 660 ml Output Urine Total 1730 ml 1195 ml Chest Tube Drainage Total 75 ml # Bowel Movements 2 3 Dressing: dry Wound: clean Cardiovascular: RSR Respiratory: clear, decreased breath sounds Abdomen: non-tender, present bowel sounds, other, non-distended Extremities: no tenderness, no cyanosis Laboratory Tests Test 06/04/20 03:40 06/04/20 11:45 06/04/20 17:00 06/04/20 17:26 White Blood Count 4.1 K/UL (4.8-10.8) L Red Blood Count 2.64 M/UL (4.20-5.40) L Hemoglobin 8.0 G/DL (12.0-16.0) L Hematocrit 23.8 % (37.0-47.0) L Mean Corpuscular Volume 90 FL (80-99) Mean Corpuscular Hemoglobin 30.2 PG (27.0-31.0) Mean Corpuscular Hemoglobin Concent 33.6 G/DL (32.0-36.0) Red Cell Distribution Width 13.3 % (11.6-14.8) Platelet Count 159 K/UL (150-450) Mean Platelet Volume 6.4 FL (6.5-10.1) L Neutrophils (%) (Auto) 73.4 % (45.0-75.0) Lymphocytes (%) (Auto) 12.3 % (20.0-45.0) L Monocytes (%) (Auto) 11.5 % (1.0-10.0) H Eosinophils (%) (Auto) 2.0 % (0.0-3.0) Basophils (%) (Auto) 0.8 % (0.0-2.0) Sodium Level 140 MMOL/L (136-145) Potassium Level 3.5 MMOL/L (3.5-5.1) Chloride Level 106 MMOL/L (98-107) Carbon Dioxide Level 28 MMOL/L (21-32) Anion Gap 6 mmol/L (5-15) Blood Urea Nitrogen 18 mg/dL (7-18) Creatinine 0.5 MG/DL (0.55-1.30) L Estimat Glomerular Filtration Rate > 60 mL/min (>60) Glucose Level 115 MG/DL (74-106) H Calcium Level 8.5 MG/DL (8.5-10.1) Phosphorus Level 2.1 MG/DL (2.5-4.9) L Magnesium Level 1.8 MG/DL (1.8-2.4) Iron Level 28 ug/dL (50-175) L Total Iron Binding Capacity 147 ug/dL (250-450) L Percent Iron Saturation 19 % (15-50) Unsaturated Iron Binding 119 ug/dL (112-346) POC Whole Blood Glucose 150 MG/DL (74-106) H 128 MG/DL (74-106) H Stool Occult Blood Pending Plan Problems: (1) Hypernatremia (2) Renal failure (3) Respiratory failure (4) Sepsis Assessment & Plan: COVID + leukocytosis anemia electrolytes abnormal on iv fluids renal input appreciated cxr noted abx as per ID will follow with recs Will likely need trach difficult weaning conservatorship working with case management social work to figure out goals of care s/p peg and trach improving much more comfortable Interim placement of orogastric tube, also documented on recent abdominal radiograph. Stable satisfactory position of endotracheal tube and right jugular central venous catheter. There is increased pleural fluid and likely left basilar consolidation/atelectasis. The right lung and pleural space remain clear. Impression: Increasing left pleural fluid and likely basilar consolidation/atelectasis. Interim orogastric intubation DAILY ESTIMATED NEEDS: Needs based on Pulmonary, DM, wounds 66.6kg 25-30 kcals/kg 4260-0503 total kcals 1.25-1.5 g protein/kg 83-100 g total protein 20-25 mL/kg 7831-8192 total fluid mLs NUTRITION DIAGNOSIS: Swallowing difficulty r/t dysphagia as evidenced by h/o CVA, pt is GT dep, currently ICU status, now intubated, off pressor support, GT feeds initiated. CURRENT TF:Glucerna 1.2 @45ml/hr ENTERAL NUTRITION RECOMMENDATIONS: As medically able: GLUCERNA 1.5 goal of 45ml/hr x24 hrs to provide 1080ml, 1620 kcal, 89g pro, 820ml free H2O -> as medically able without aspiration risk start Glucerna 1.5 @low rate 25ml/hr for 6 hrs. Advance as tolerated 10ml/hr q4-6 hrs to goal. - Flush per , HOB over 30 degrees. ---- If not hemodynamically stable, rec trophic feeds of 5-10ml/hr to maintain gut integrity. ADDITIONAL RECOMMENDATIONS: 1) Obtain an accurate calibrated bed scale wt 2) F/up w/ H&P 3) With active TF orders, add JASMYN BID for noted DTPI wounds 4) TF recs as above when off bipap and w/ hemodynamic stability -> Now intubated, off pressors, on GT feeds. he spleen size is normal. The gallbladder contains sludge. No stones. No wall thickening nor pericholecystic fluid. Common bile duct measures 4 mm in diameter. Small amount free fluid is seen adjacent to the liver and spleen Impression: Gallbladder sludge. Negative for dilated bile ducts Normal appearing liver and spleen Patient with respiratory failure intubated on support unable to wean safely. A tracheostomy in this case would be indicated and recommended. Patient is full code but conserved. Given her condition waiting a significant period of time is at high risk for her given the risk for extubation duration of tube and worsening with her ET tube. A trach would be functional manageable for her and recommended. Unfortunately waiting for the time. Would be advisable and discussed with the social workers case filler and medical teams. Crate Icer as well. ICU team as well. We will proceed with tracheostomy in patient's best interest given her CODE STATUS and wishes and care plan. i have been asked by GI and medical teams to place PEG as well. after careful evaluation I agree with medical teams that patient would also benefit from feeding tube access. given her condition, Covid status, care plan, goals of care, will place peg at same time of trach to minimize exposure and OR time and limit procedure risks for patient. (5) Elevated d-dimer (6) COVID-19 Assessment & Plan: ++ (7) Pressure ulcer Assessment & Plan: Pt presented on admission with multiple Pressure injuries.DTPI noted to R Buttocks (L)3.8cm x (W)3.4cm. Base of wound is purpuric,fluctuant with surrounding maroon and indurated borders. DTPI Upper L Buttocks(L)5.5cm x (W)4cm. Base of wound is maroon and indurated. Borders are irregular. Non-Blanchable erythema without induration/fluctuance L lower buttocks(L)4cm x (W)7cm. R and L heels are soft but blanchable. Erosion noted at peristomal GT site. Site is erythematous and excoriated. Small amt. sanguineous exudate. Tx.Plan: Apply Moisture Barrier Paste to Sacrum, R and L Buttocks. Cover each area with Optifoam drsg. Change every 3 days and prn. Apply Moisture Barrier Paste to R and L Ischial tuberosities with each incontinence care. Apply Cavilon Skin Barrier to both heels. Cover each heel and malleoli with Optifoam drsg. Change every 7 days and prn. Reposition at least every 2hours or as tolerated. Off-load heels with pillow. APM/DARIN Mattress overlay. Apply Zinc Oxide Paste TID to GT site. Leave open to Air. (8) Dementia (9) CVA (cerebral vascular accident) (10) T2DM (type 2 diabetes mellitus) (11) Gastrostomy present (12) COVID-19 (13) Rapid atrial fibrillation Paul Garcia Jun 04, 2020 20:02
[2020-06-04] MEDS: Dyna-Hex 2% Top Sol 2oz TOPIC SCH (20:14)
--- NOTE | 2020-06-04 21:00 | NUR ---
NURSE NOTES: Pt provided with a CHG bed bath, oral care and linen change. Central line dressing remains clean, dry and intact. ROM exercises provided per pt tolerance. Pt tolerated care well. Bedside assessment performed, assessed pt for pain using FLACC scale with a score of 0 noted. Neuro assessment remains consistent with previous findings. Fall, Aspiration and Skin precautions observed. Pt remains resting in bed; Bed remains in the lowest position with the safety wheels engaged, call light within reach, side rails up x3 and bed alarm activated. Will continue plan of care. Will continue to monitor.
--- NOTE | 2020-06-04 23:00 | NUR ---
NURSE NOTES: Bedside assessment performed, assessed pt with a FLACC scale of 0 noted. VS obtained and remain stable at this time. Pt remains calm, comfortable, clean and dry. Pt continues to tolerate current vent settings well. Pt repositioned for comfort and safety. Fall, Aspiration and Skin precautions observed. Pt remains resting in bed; Bed remains in the lowest position with the safety wheels engaged, call light within reach, side rails up x3 and bed alarm activated. Will continue plan of care. Will continue to monitor.
[2020-06-05] VITALS (24 sets, daily range): BP systolic 90–121; BP diastolic 37–87
--- NOTE | 2020-06-05 03:00 | NUR ---
NURSE NOTES: Bedside assessment performed, assessed pt with a FLACC scale of 0 noted. VS obtained and remain stable at this time. Pt remains clean and dry. Pt noted to be pulling at medical devices and therefore order for bilateral soft restraints initiated. CMS remains intact and pt teaching provided. Will continue to monitor and assess for clinical indication for restraint use. Pt continues to tolerate current vent settings well. Pt repositioned for comfort and safety. Fall, Aspiration and Skin precautions observed. Pt remains resting in bed; Bed remains in the lowest position with the safety wheels engaged, call light within reach, side rails up x3 and bed alarm activated. Will continue plan of care. Will continue to monitor.
--- NOTE | 2020-06-05 05:00 | NUR ---
NURSE NOTES: Bedside assessment performed, assessed pt with a FLACC scale of 0 noted. VS obtained and remain stable at this time. Pt remains clean and dry. Pt noted to be pulling at medical devices, bilateral soft restraints remain in place for patient safety. CMS remains intact and pt teaching provided. Will continue to monitor and assess for clinical indication for restraint use. Pt continues to tolerate current vent settings well. Pt repositioned for comfort and safety. Fall, Aspiration and Skin precautions observed. Pt remains resting in bed; Bed remains in the lowest position with the safety wheels engaged, call light within reach, side rails up x3 and bed alarm activated. Will continue plan of care. Will continue to monitor.
[2020-06-05] MEDS: NovoLOG Insulin Flexpen SUBQ SCH ×3 (05:16→18:00)
[2020-06-05] MEDS: TAZOBACTAM IV SCH ×3 (05:18→22:00)
[2020-06-05] MEDS: NS IV SCH ×3 (05:18→22:00)
[2020-06-05] MEDS: CEFTOLOZANE IV SCH ×3 (05:18→22:00)
[2020-06-05 05:36] LABS: BASOPHILS % (AUTO) 0.9 % (0.0-2.0); EOSINOPHILS % (AUTO) 1.6 % (0.0-3.0); HEMATOCRIT 23.5 % (37.0-47.0); LYMPHOCYTES % (AUTO) 9.3 % (20.0-45.0); MEAN CORPUSCULAR VOLUME 90 FL (80-99); MONOCYTES % (AUTO) 9.2 % (1.0-10.0); NEUTROPHILS % (AUTO) 78.9 % (45.0-75.0); PLATELET COUNT 176 K/UL (150-450); RED BLOOD COUNT 2.61 M/UL (4.20-5.40); RED CELL DISTRIBUTION WIDTH 13.8 % (11.6-14.8); WHITE BLOOD COUNT 5.7 K/UL (4.8-10.8)
[2020-06-05 05:46] LABS: ANION GAP 4 mmol/L (5-15); BLOOD UREA NITROGEN 22 mg/dL (7-18); CALCIUM 8.3 MG/DL (8.5-10.1); CARBON DIOXIDE 29 MMOL/L (21-32); CHLORIDE 109 MMOL/L (98-107); CREATININE 0.5 MG/DL (0.55-1.30); PHOSPHORUS 1.6 MG/DL (2.5-4.9); POTASSIUM 3.8 MMOL/L (3.5-5.1); SODIUM 142 MMOL/L (136-145)
--- NOTE | 2020-06-05 07:10 | NUR ---
NURSE HAND-OFF REPORT: Latest Vital Signs: Temperature 98.6 , Pulse 63 , B/P 100 /44 , Respiratory Rate 13 , O2 SAT 96 , Mechanical Ventilator, O2 Flow Rate 12.0 . Vital Sign Comment: VS remained stable for duration of shift EKG Rhythm: Sinus Rhythm Rhythm change?: N MD Notified?: N MD Response: N/A Latest Garza Fall Score: 50 Fall Risk: High Risk Safety Measures: Call light Within Reach, Bed Alarm Zone 2, Side Rails Side Rails x3, Bed position Low and Locked. Fall Precautions: Yellow Socks Yellow Gown Door Sign Patient Fall Education Report given to SARA Jackson. Endorsed plan of care.
--- NOTE | 2020-06-05 07:11 | NUR ---
NURSE NOTES: Received patient from Prasanth RUIZ. Patient is awake, does not respond to name, opens eyes spontaneously but does not hold eye contact, reacts to light pain. Sinus Bradycardia on the heart monitor, HR 58. Receiving oxygen via trach to vent, Shiley 8 with vent settings: AC 12, TV 500, FiO2 40%, PEEP 5. Right IJ TLC is intact and receiving 1/2 NS at 75cc/hr. Arauz catheter is intact and draining. Bed is locked, placed in lowest position, side rails up x3, bed alarm on, head of bed elevated.
--- NOTE | 2020-06-05 08:10 | Surgery Progress Note ---
Surgery Progress Note Subjective Procedure Performed trach egd with peg Symptoms: improved, tolerating diet, passing flatus, BM Objective Last 24 Hour Vital Signs Date Time Temp Pulse Resp B/P (MAP) Pulse Ox O2 Delivery O2 Flow Rate FiO2 06/05/20 07:00 63 13 100/44 (62) 96 06/05/20 06:30 60 12 06/05/20 06:00 67 18 105/50 (68) 100 06/05/20 05:00 68 18 104/58 (73) 100 06/05/20 04:00 98.6 87 19 104/56 (72) 96 06/05/20 04:00 40 06/05/20 04:00 Mechanical Ventilator 06/05/20 03:50 74 13 70 06/05/20 03:12 75 06/05/20 03:00 76 16 99/50 (66) 95 06/05/20 02:00 74 17 91/55 (67) 100 06/05/20 01:00 78 20 98/55 (69) 94 06/05/20 00:00 98.6 81 16 97/53 (68) 96 06/05/20 00:00 Mechanical Ventilator 06/05/20 00:00 40 06/04/20 23:47 79 06/04/20 23:10 83 16 80 06/04/20 23:00 82 15 94/59 (71) 99 06/04/20 22:00 92 20 101/65 (77) 99 06/04/20 21:00 92 21 107/70 (82) 100 06/04/20 20:00 40 06/04/20 20:00 98.4 93 18 100/64 (76) 96 06/04/20 20:00 Mechanical Ventilator 06/04/20 19:41 103 06/04/20 19:41 101 23 100 06/04/20 19:02 99 20 105/60 (75) 97 06/04/20 18:45 180/145 06/04/20 18:30 156/136 06/04/20 18:00 95 18 88/76 (80) 100 06/04/20 18:00 98/76 06/04/20 17:00 90 16 84/47 (59) 100 06/04/20 17:00 94/52 06/04/20 16:00 Mechanical Ventilator 06/04/20 16:00 75 16 116/59 (78) 95 06/04/20 16:00 Mechanical Ventilator 06/04/20 16:00 77 06/04/20 16:00 40 06/04/20 16:00 106/65 06/04/20 16:00 98.7 77 20 106/57 (73) 94 06/04/20 15:00 73 13 40 06/04/20 15:00 91/45 06/04/20 15:00 80 16 97/45 (62) 98 06/04/20 14:00 80 14 110/52 (71) 100 06/04/20 14:00 110/52 06/04/20 13:00 83 15 104/57 (73) 99 06/04/20 13:00 104/57 06/04/20 12:55 97 06/04/20 12:00 Mechanical Ventilator 06/04/20 12:00 94 06/04/20 12:00 102/68 06/04/20 12:00 40 06/04/20 12:00 98.9 82 17 102/68 (79) 99 06/04/20 11:06 73 13 40 06/04/20 11:00 108/57 06/04/20 11:00 72 12 108/57 (74) 99 06/04/20 10:00 98 17 100/58 (72) 100 06/04/20 10:00 100/58 06/04/20 09:00 76 14 114/55 (74) 99 06/04/20 09:00 114/55 I&O Intake and Output 06/04/20 06/05/20 19:00 07:00 Intake Total 1686.950 ml 1823.75 ml Output Total 1525 ml 575 ml Balance 161.950 ml 1248.75 ml Free Water 60 ml IV Total 966.950 ml 1043.75 ml Tube Feeding 720 ml 720 ml Output Urine Total 1525 ml 575 ml # Bowel Movements 1 Dressing: dry Cardiovascular: RSR Respiratory: clear, decreased breath sounds Abdomen: soft, non-tender, present bowel sounds Extremities: no edema, no tenderness, no cyanosis Laboratory Tests Test 06/04/20 11:45 06/04/20 17:00 06/04/20 17:26 06/04/20 23:17 POC Whole Blood Glucose 150 MG/DL (74-106) H 128 MG/DL (74-106) H Pending Stool Occult Blood Pending Test 06/05/20 03:50 06/05/20 04:49 White Blood Count 5.7 K/UL (4.8-10.8) Red Blood Count 2.61 M/UL (4.20-5.40) L Hemoglobin 8.0 G/DL (12.0-16.0) L Hematocrit 23.5 % (37.0-47.0) L Mean Corpuscular Volume 90 FL (80-99) Mean Corpuscular Hemoglobin 30.6 PG (27.0-31.0) Mean Corpuscular Hemoglobin Concent 34.0 G/DL (32.0-36.0) Red Cell Distribution Width 13.8 % (11.6-14.8) Platelet Count 176 K/UL (150-450) Mean Platelet Volume 6.8 FL (6.5-10.1) Neutrophils (%) (Auto) 78.9 % (45.0-75.0) H Lymphocytes (%) (Auto) 9.3 % (20.0-45.0) L Monocytes (%) (Auto) 9.2 % (1.0-10.0) Eosinophils (%) (Auto) 1.6 % (0.0-3.0) Basophils (%) (Auto) 0.9 % (0.0-2.0) Sodium Level 142 MMOL/L (136-145) Potassium Level 3.8 MMOL/L (3.5-5.1) Chloride Level 109 MMOL/L (98-107) H Carbon Dioxide Level 29 MMOL/L (21-32) Anion Gap 4 mmol/L (5-15) L Blood Urea Nitrogen 22 mg/dL (7-18) H Creatinine 0.5 MG/DL (0.55-1.30) L Estimat Glomerular Filtration Rate > 60 mL/min (>60) Glucose Level 114 MG/DL (74-106) H Calcium Level 8.3 MG/DL (8.5-10.1) L Phosphorus Level 1.6 MG/DL (2.5-4.9) L Magnesium Level 1.9 MG/DL (1.8-2.4) POC Whole Blood Glucose 96 MG/DL (74-106) Plan Problems: (1) Hypernatremia (2) Renal failure (3) Respiratory failure (4) Sepsis Assessment & Plan: COVID + leukocytosis anemia electrolytes abnormal on iv fluids renal input appreciated cxr noted abx as per ID will follow with recs Will likely need trach difficult weaning conservatorship working with case management social work to figure out goals of care s/p peg and trach improving much more comfortable Interim placement of orogastric tube, also documented on recent abdominal radiograph. Stable satisfactory position of endotracheal tube and right jugular central venous catheter. There is increased pleural fluid and likely left basilar consolidation/atelectasis. The right lung and pleural space remain clear. Impression: Increasing left pleural fluid and likely basilar consolidation/atelectasis. Interim orogastric intubation DAILY ESTIMATED NEEDS: Needs based on Pulmonary, DM, wounds 66.6kg 25-30 kcals/kg 9046-9880 total kcals 1.25-1.5 g protein/kg 83-100 g total protein 20-25 mL/kg 0774-6685 total fluid mLs NUTRITION DIAGNOSIS: Swallowing difficulty r/t dysphagia as evidenced by h/o CVA, pt is GT dep, currently ICU status, now intubated, off pressor support, GT feeds initiated. CURRENT TF:Glucerna 1.2 @45ml/hr ENTERAL NUTRITION RECOMMENDATIONS: As medically able: GLUCERNA 1.5 goal of 45ml/hr x24 hrs to provide 1080ml, 1620 kcal, 89g pro, 820ml free H2O -> as medically able without aspiration risk start Glucerna 1.5 @low rate 25ml/hr for 6 hrs. Advance as tolerated 10ml/hr q4-6 hrs to goal. - Flush per , HOB over 30 degrees. ---- If not hemodynamically stable, rec trophic feeds of 5-10ml/hr to maintain gut integrity. ADDITIONAL RECOMMENDATIONS: 1) Obtain an accurate calibrated bed scale wt 2) F/up w/ H&P 3) With active TF orders, add JASMYN BID for noted DTPI wounds 4) TF recs as above when off bipap and w/ hemodynamic stability -> Now intubated, off pressors, on GT feeds. he spleen size is normal. The gallbladder contains sludge. No stones. No wall thickening nor pericholecystic fluid. Common bile duct measures 4 mm in diameter. Small amount free fluid is seen adjacent to the liver and spleen Impression: Gallbladder sludge. Negative for dilated bile ducts Normal appearing liver and spleen Patient with respiratory failure intubated on support unable to wean safely. A tracheostomy in this case would be indicated and recommended. Patient is full code but conserved. Given her condition waiting a significant period of time is at high risk for her given the risk for extubation duration of tube and worsening with her ET tube. A trach would be functional manageable for her and recommended. Unfortunately waiting for the time. Would be advisable and discussed with the social workers case advocate and medical teams. Shop Repairer as well. ICU team as well. We will proceed with tracheostomy in patient's best interest given her CODE STATUS and wishes and care plan. i have been asked by GI and medical teams to place PEG as well. after careful evaluation I agree with medical teams that patient would also benefit from feeding tube access. given her condition, Covid status, care plan, goals of care, will place peg at same time of trach to minimize exposure and OR time and limit procedure risks for patient. (5) Elevated d-dimer (6) COVID-19 Assessment & Plan: ++ (7) Pressure ulcer Assessment & Plan: Pt presented on admission with multiple Pressure injuries.DTPI noted to R Buttocks (L)3.8cm x (W)3.4cm. Base of wound is purpuric,fluctuant with surrounding maroon and indurated borders. DTPI Upper L Buttocks(L)5.5cm x (W)4cm. Base of wound is maroon and indurated. Borders are irregular. Non-Blanchable erythema without induration/fluctuance L lower buttocks(L)4cm x (W)7cm. R and L heels are soft but blanchable. Erosion noted at peristomal GT site. Site is erythematous and excoriated. Small amt. sanguineous exudate. Tx.Plan: Apply Moisture Barrier Paste to Sacrum, R and L Buttocks. Cover each area with Optifoam drsg. Change every 3 days and prn. Apply Moisture Barrier Paste to R and L Ischial tuberosities with each incontinence care. Apply Cavilon Skin Barrier to both heels. Cover each heel and malleoli with Optifoam drsg. Change every 7 days and prn. Reposition at least every 2hours or as tolerated. Off-load heels with pillow. APM/DARIN Mattress overlay. Apply Zinc Oxide Paste TID to GT site. Leave open to Air. (8) Dementia (9) CVA (cerebral vascular accident) (10) T2DM (type 2 diabetes mellitus) (11) Gastrostomy present (12) COVID-19 (13) Rapid atrial fibrillation Paul Garcia Jun 05, 2020 08:10
[2020-06-05] MEDS ORDERED: NS 275ml ONE ×2 (08:36→21:12)
[2020-06-05] MEDS: Pantoprazole Inj IV SCH (08:40)
[2020-06-05] MEDS: Enoxaparin 60mg Inj SUBQ SCH ×2 (08:41→20:19)
--- NOTE | 2020-06-05 08:58 | NUR ---
NURSE NOTES: Patient given medications as prescribed, no adverse reaction noted. Patient is afebrile, axillary temperature read 98.1 degrees. Oral care given, tracheal suctioning done and thick jim secretions removed. Turned and repositioned patient.
--- NOTE | 2020-06-05 09:32 | NUR ---
NURSE NOTES: Patient seen and assessed by Dr. Wade.
--- NOTE | 2020-06-05 09:40 | General Progress Note ---
Subjective Date patient seen: Jun 05, 2020 ROS Limited/Unobtainable: Yes Allergies: Coded Allergies: DIVALPROEX SODIUM (Verified Allergy, Unknown, 05/14/20) PENICILLINS (Verified Allergy, Unknown, 05/14/20) Subjective Non verbal, tacheostomy and PEG in place, she is noted to be grimacing. SHE IS OFF DOPAMINE NOW OF 06/04 Objective Last 24 Hour Vital Signs Date Time Temp Pulse Resp B/P (MAP) Pulse Ox O2 Delivery O2 Flow Rate FiO2 06/05/20 09:00 98.1 66 14 107/45 (65) 99 06/05/20 08:00 40 06/05/20 08:00 Mechanical Ventilator 06/05/20 08:00 63 15 101/47 (65) 100 06/05/20 08:00 63 06/05/20 07:01 56 12 60 06/05/20 07:00 63 13 100/44 (62) 96 06/05/20 06:30 60 12 06/05/20 06:00 67 18 105/50 (68) 100 06/05/20 05:00 68 18 104/58 (73) 100 06/05/20 04:00 98.6 87 19 104/56 (72) 96 06/05/20 04:00 40 06/05/20 04:00 Mechanical Ventilator 06/05/20 03:50 74 13 70 06/05/20 03:12 75 06/05/20 03:00 76 16 99/50 (66) 95 06/05/20 02:00 74 17 91/55 (67) 100 06/05/20 01:00 78 20 98/55 (69) 94 06/05/20 00:00 98.6 81 16 97/53 (68) 96 06/05/20 00:00 Mechanical Ventilator 06/05/20 00:00 40 06/04/20 23:47 79 06/04/20 23:10 83 16 80 06/04/20 23:00 82 15 94/59 (71) 99 06/04/20 22:00 92 20 101/65 (77) 99 06/04/20 21:00 92 21 107/70 (82) 100 06/04/20 20:00 40 06/04/20 20:00 98.4 93 18 100/64 (76) 96 06/04/20 20:00 Mechanical Ventilator 06/04/20 19:41 103 06/04/20 19:41 101 23 100 06/04/20 19:02 99 20 105/60 (75) 97 06/04/20 18:45 180/145 06/04/20 18:30 156/136 06/04/20 18:00 95 18 88/76 (80) 100 06/04/20 18:00 98/76 06/04/20 17:00 90 16 84/47 (59) 100 06/04/20 17:00 94/52 06/04/20 16:00 Mechanical Ventilator 06/04/20 16:00 75 16 116/59 (78) 95 06/04/20 16:00 Mechanical Ventilator 06/04/20 16:00 77 06/04/20 16:00 40 06/04/20 16:00 106/65 06/04/20 16:00 98.7 77 20 106/57 (73) 94 06/04/20 15:00 73 13 40 06/04/20 15:00 91/45 06/04/20 15:00 80 16 97/45 (62) 98 06/04/20 14:00 80 14 110/52 (71) 100 06/04/20 14:00 110/52 06/04/20 13:00 83 15 104/57 (73) 99 06/04/20 13:00 104/57 06/04/20 12:55 97 06/04/20 12:00 Mechanical Ventilator 06/04/20 12:00 94 06/04/20 12:00 102/68 06/04/20 12:00 40 06/04/20 12:00 98.9 82 17 102/68 (79) 99 06/04/20 11:06 73 13 40 06/04/20 11:00 108/57 06/04/20 11:00 72 12 108/57 (74) 99 06/04/20 10:00 98 17 100/58 (72) 100 06/04/20 10:00 100/58 Intake and Output 06/04/20 06/05/20 19:00 07:00 Intake Total 1686.950 ml 1823.75 ml Output Total 1525 ml 575 ml Balance 161.950 ml 1248.75 ml Free Water 60 ml IV Total 966.950 ml 1043.75 ml Tube Feeding 720 ml 720 ml Output Urine Total 1525 ml 575 ml # Bowel Movements 1 Laboratory Tests 06/04/20 11:45: POC Whole Blood Glucose 150H 06/04/20 17:00: Stool Occult Blood [Pending] 06/04/20 17:26: POC Whole Blood Glucose 128H 06/04/20 23:17: POC Whole Blood Glucose [Pending] 06/05/20 03:50: White Blood Count 5.7, Red Blood Count 2.61L, Hemoglobin 8.0L, Hematocrit 23.5L, Mean Corpuscular Volume 90, Mean Corpuscular Hemoglobin 30.6, Mean Corpuscular Hemoglobin Concent 34.0, Red Cell Distribution Width 13.8, Platelet Count 176, Mean Platelet Volume 6.8, Neutrophils (%) (Auto) 78.9H, Lymphocytes (%) (Auto) 9.3L, Monocytes (%) (Auto) 9.2, Eosinophils (%) (Auto) 1.6, Basophils (%) (Auto) 0.9, Sodium Level 142, Potassium Level 3.8, Chloride Level 109H, Carbon Dioxide Level 29, Anion Gap 4L, Blood Urea Nitrogen 22H, Creatinine 0.5L, Estimat Glomerular Filtration Rate > 60, Glucose Level 114H, Calcium Level 8.3L, Phosphorus Level 1.6L, Magnesium Level 1.9 06/05/20 04:49: POC Whole Blood Glucose 96 Height (Feet): 5 Height (Inches): 5.00 Weight (Pounds): 142 General Appearance: WD/WN EENT: PERRL/EOMI Neck: non-tender Cardiovascular: normal rate Respiratory/Chest: lungs clear Neurologic: film splicer II-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 # Septic with element of cardiogenic shock Etiology COVID 19 vs UTI vs bacteremia / contaminant and NSTEMI Bcx POSITIVE WITH G+ Cocci s/p vancomycin Sputum Cx 05/25 with Pseudomonas. Colonizer and recent completion of 14 day treatment with Meropenem U cx 05/14 Proteus Mirabillis Meropenem 14 days completed Vancomycin stopped stopped Cefepime Dexamethasone 10 day course completed Leukocytosis improved. Monitor clinically for now and OFF antibiotics per ID COVID NEGATIVE x 2 05/25 and 05/26 ID Account Retention Representative 06/04 recommends: - Repeat BCx today - Start Zerbaxa for MDR PsA bacteremia, if worsening can try double coverage w/ colistin or polyB but overall slightly stable currently # Acute respiratory failure Intubated. Self extubated 05/27 and re intubated by ED MD successfully. ICU care appreciated Dr. Rock following Ventilator management per ICU-pulmonary FiO2 40 % today. T piece. Medically tracheostomy is needed and life saving procedure as she is not tolerating wean off. Overall, her quality of life will not improve from prior baseline with advanced dementia. Will need permanent ventilator support via tracheostomy and subacute level of care. Critical care attending, Surgery and GI attendings notified to plan PEG and TRACH as medically indicated and completed 06/02/20 # SVT vs A. Flutter s/p DC x 3 # NSTEMI HR is controlled in the 100 range and tolerating Digoxin Vasopressors in place Levophed at [address] Morillo requested and TTE requested and poor window. Troponin 3.4 now 0.7 EKG 05/17 NSR, stable. Inferior wall ischemia Repeat TTE is indicated to assess EF. # AG metabolic acidosis Ddx lactic acidosis Improved. # Hyperglycemia r/o DKA ABG and Ketones negative Endocrine consult with Dr. Shelley IV insulin gtt stopped and in SQ insulin coverage now # Hypernatremia resolved Improving Monitor BMP # COVID 19 Positive on admission, now NEGATIVE as of 05/25/20 On Dexamethasone completed 10 day course Contact and droplet isolation # Dysphagia PEG REMOVED 05/16 Carlo Vargas consulted NGT placed and Tube feeds started 05/18 and being tolerated at 45 cc hr Glucerna 1.2 # Severe protein caloric malnutrition with Albumin 1.5 RD follow up # Thrombocytopenia Platelets down from 80 K to 64 K to 66 K ( OFF Heparin ) and improved to normal range. 05/17 dc heparin, use SCD, order US Liver, HIT Ab, HIV negative Monitor carefully as Lovenox was restarted 06/03 for DVT # Newly detected lower extremity DVT HOLD off anticoagulation as tracheostomy and PEG done 06/[address] Garcia and agreed to start anticoagulation therapy for DVT Lovenox at 1 mg Kg SQ q 12 hr started 06/03 PM # Hypokalemia # Hypophosphatemia Replace as needed Monitor in AM # Anemia Etiology likely secondary to multiple blood draws vs RAULITO vs less likely GIB FOBT pending. iron studies SHOW IRON DEFICIENCY. will order IV iron. Trend Hb and PRN PRBC if Hb less than 8 # Dementia Baseline # FULL CODE SW follow up to reach out to DPOA and consider change in code status due to high morbidity and risk of inpatient mortality. Paperwork completed for superior court of the [facility] for request of tracheostomy and gastrostomy placement due to medical need on 05/26/20 Bioethic consult requested and spoke with Dr. Hung from ethics and I agree with his assessment that the patient quality of life will NOT IMPROVE with tracheostomy and replacement of PEG. The patient is very limited due to her underlying dementia and now unable to wean off the ventilator. SHE HAD THE NEED TO GET A TRACHEOSTOMY and PEG was replaced 06/01/[address] Garcia DUE TO MEDICAL NECESSITY AND LIFE SAVING PROCEDURES. DR. ROCK AND I AGREED AND SIGNED [address] FORM. PENDING [address] DECISION REGARDING CODE STATUS. DNR IS MEDICALLY INDICATED. > 50 min spent in coordination of care and consultation with physicians and RN. Jessica Wade MD Jun 05, 2020 09:40
--- NOTE | 2020-06-05 10:24 | Pulmonology Progress Note ---
Subjective ROS Limited/Unobtainable: Yes Allergies: Coded Allergies: DIVALPROEX SODIUM (Verified Allergy, Unknown, 05/14/20) PENICILLINS (Verified Allergy, Unknown, 05/14/20) All Systems: reviewed and negative except above Subjective ICU care reviewed Objective Last 24 Hour Vital Signs Date Time Temp Pulse Resp B/P (MAP) Pulse Ox O2 Delivery O2 Flow Rate FiO2 06/05/20 10:00 60 12 90/37 (54) 100 06/05/20 09:00 98.1 66 14 107/45 (65) 99 06/05/20 08:00 40 06/05/20 08:00 Mechanical Ventilator 06/05/20 08:00 63 15 101/47 (65) 100 06/05/20 08:00 63 06/05/20 07:01 56 12 60 06/05/20 07:00 63 13 100/44 (62) 96 06/05/20 06:30 60 12 06/05/20 06:00 67 18 105/50 (68) 100 06/05/20 05:00 68 18 104/58 (73) 100 06/05/20 04:00 98.6 87 19 104/56 (72) 96 06/05/20 04:00 40 06/05/20 04:00 Mechanical Ventilator 06/05/20 03:50 74 13 70 06/05/20 03:12 75 06/05/20 03:00 76 16 99/50 (66) 95 06/05/20 02:00 74 17 91/55 (67) 100 06/05/20 01:00 78 20 98/55 (69) 94 06/05/20 00:00 98.6 81 16 97/53 (68) 96 06/05/20 00:00 Mechanical Ventilator 06/05/20 00:00 40 06/04/20 23:47 79 06/04/20 23:10 83 16 80 06/04/20 23:00 82 15 94/59 (71) 99 06/04/20 22:00 92 20 101/65 (77) 99 06/04/20 21:00 92 21 107/70 (82) 100 06/04/20 20:00 40 06/04/20 20:00 98.4 93 18 100/64 (76) 96 06/04/20 20:00 Mechanical Ventilator 06/04/20 19:41 103 06/04/20 19:41 101 23 100 06/04/20 19:02 99 20 105/60 (75) 97 06/04/20 18:45 180/145 06/04/20 18:30 156/136 06/04/20 18:00 95 18 88/76 (80) 100 06/04/20 18:00 98/76 06/04/20 17:00 90 16 84/47 (59) 100 06/04/20 17:00 94/52 06/04/20 16:00 Mechanical Ventilator 06/04/20 16:00 75 16 116/59 (78) 95 06/04/20 16:00 Mechanical Ventilator 06/04/20 16:00 77 06/04/20 16:00 40 06/04/20 16:00 106/65 06/04/20 16:00 98.7 77 20 106/57 (73) 94 06/04/20 15:00 73 13 40 06/04/20 15:00 91/45 06/04/20 15:00 80 16 97/45 (62) 98 06/04/20 14:00 80 14 110/52 (71) 100 06/04/20 14:00 110/52 06/04/20 13:00 83 15 104/57 (73) 99 06/04/20 13:00 104/57 06/04/20 12:55 97 06/04/20 12:00 Mechanical Ventilator 06/04/20 12:00 94 06/04/20 12:00 102/68 06/04/20 12:00 40 06/04/20 12:00 98.9 82 17 102/68 (79) 99 06/04/20 11:06 73 13 40 06/04/20 11:00 108/57 06/04/20 11:00 72 12 108/57 (74) 99 Intake and Output 06/04/20 06/05/20 19:00 07:00 Intake Total 1686.950 ml 1823.75 ml Output Total 1525 ml 575 ml Balance 161.950 ml 1248.75 ml Free Water 60 ml IV Total 966.950 ml 1043.75 ml Tube Feeding 720 ml 720 ml Output Urine Total 1525 ml 575 ml # Bowel Movements 1 General Appearance: no acute distress HEENT: normocephalic, status post trach Respiratory: chest wall non-tender, lungs clear, other - trach in place Cardiovascular: normal peripheral pulses, normal rate, regular rhythm Abdomen: normal bowel sounds, soft, non tender, non distended, other - GT Extremities: no cyanosis, no clubbing, no edema Neurologic: unresponsiveness Microbiology Date/Time Source Procedure Growth Status 06/04/20 09:15 Blood Blood Culture - Preliminary Resulted Laboratory Tests 06/04/20 11:45: POC Whole Blood Glucose 150H 06/04/20 17:00: Stool Occult Blood [Pending] 06/04/20 17:26: POC Whole Blood Glucose 128H 06/04/20 23:17: POC Whole Blood Glucose [Pending] 06/05/20 03:50: White Blood Count 5.7, Red Blood Count 2.61L, Hemoglobin 8.0L, Hematocrit 23.5L, Mean Corpuscular Volume 90, Mean Corpuscular Hemoglobin 30.6, Mean Corpuscular Hemoglobin Concent 34.0, Red Cell Distribution Width 13.8, Platelet Count 176, Mean Platelet Volume 6.8, Neutrophils (%) (Auto) 78.9H, Lymphocytes (%) (Auto) 9.3L, Monocytes (%) (Auto) 9.2, Eosinophils (%) (Auto) 1.6, Basophils (%) (Auto) 0.9, Sodium Level 142, Potassium Level 3.8, Chloride Level 109H, Carbon Dioxide Level 29, Anion Gap 4L, Blood Urea Nitrogen 22H, Creatinine 0.5L, Estimat Glomerular Filtration Rate > 60, Glucose Level 114H, Calcium Level 8.3L, Phosphorus Level 1.6L, Magnesium Level 1.9 06/05/20 04:49: POC Whole Blood Glucose 96 Current Medications Medications (Trade) Dose Ordered Sig/Morgan Route PRN Reason Start Time Stop Time Status Last Admin Dose Admin Acetaminophen (Tylenol) 650 mg Q4H PRN GT Temp >100.5 05/16/20 06:15 06/15/20 06:14 05/31/20 13:15 Acetaminophen (Tylenol) 650 mg Q4H PRN RECTAL Temp >100.5 05/16/20 19:45 06/15/20 19:44 05/17/20 18:30 Atropine Sulfate (Atropine 0.4mg/ ml) 0.4 mg Q2HR PRN IVP HR <45 05/29/20 21:30 06/28/20 19:24 05/30/20 22:39 Ceftolozane/ Tazobactam 3 gm/ Sodium Chloride 110 ml @ 110 mls/hr Q8HR IV 06/04/20 14:00 06/11/20 13:59 06/05/20 05:18 Chlorhexidine Gluconate (Lilliam-Hex 2%) 1 applic DAILY@2000 TOPIC 05/15/20 20:00 08/13/20 19:59 06/04/20 20:14 Dextrose (Dextrose 50%) 25 ml Q30M PRN IV Hypoglycemia 05/22/20 00:00 08/20/20 00:00 Dextrose (Dextrose 50%) 50 ml Q30M PRN IV Hypoglycemia 05/22/20 00:00 08/20/20 00:00 Dopamine HCl/ Dextrose 250 ml @ 0 mls/hr Q24H IV 06/03/20 17:00 06/06/20 21:00 06/03/20 17:32 Enoxaparin Sodium (Lovenox) 60 mg EVERY 12 HOURS SUBQ 06/03/20 21:00 09/01/20 20:59 06/05/20 08:41 Fludrocortisone Acetate (Florinef) 0.1 mg DAILY ORAL 06/05/20 09:00 07/05/20 08:59 06/05/20 08:40 Insulin Aspart (NovoLOG) EVERY 6 HOURS SUBQ 05/22/20 06:00 08/20/20 05:59 06/04/20 11:47 Iron Sucrose 200 mg/Sodium Chloride 120 ml @ 240 mls/hr ONCE ONCE IV 06/05/20 12:00 06/05/20 12:29 Pantoprazole (Protonix) 40 mg DAILY IV 05/15/20 09:00 06/14/20 08:59 06/05/20 08:40 Potassium Phosphate 20 mm/ Sodium Chloride 281.6667 ml @ 46.944 m... ONCE ONCE IV 06/05/20 11:00 06/05/20 16:59 Sodium Chloride 1,000 ml @ 75 mls/hr [id number] IV 05/15/20 06:45 06/14/20 06:44 06/05/20 08:41 Zinc Oxide (Zinc Oxide) 1 applic TIDPRN PRN TOPIC Abdominal cramps 05/20/20 13:00 08/18/20 12:59 Assessment/Plan Assessment/Plan IMPRESSION: 1. Acute respiratory failure. 2. Diabetes mellitus with hyperglycemia. 3. Septic shock. 4. Chronic G-tube. 5. Decubitus. 6. History of CHF. 7. Tracheostomy 8. severe PCM 9. pleural effusions 10. atelectasis DISCUSSION: monitor vent setting and adjust Continue fluids and antibiotics. Pressors prn S/p trach wean as able On 40% FiO2 DVT and GI prophylaxis. nutrition and protein replacement Respiratory precautions due to COVID-19 status. trach and peg care medications/laboratory data/nursing notes/ICU care reviewed in detail note reviewed and edited care discussed with RN and RT ICU time spent >40 minutes Hung Arora MD Jun 05, 2020 10:24
[2020-06-05] MEDS ORDERED: Potassium Phosphate 20 MM in NS 275 ML IV ONE (11:00)
--- NOTE | 2020-06-05 11:50 | NUR ---
NURSE NOTES: Patient is resting in bed comfortably, Sinus Bradycardia on the heart monitor, HR 57. Patient is afebrile, axillary temperature 98.7 degrees. On pain assessment, FLACC score 0. Turned and repositioned patient, oral care done. Will continue to monitor.
[2020-06-05] MEDS ORDERED: Iron Sucrose 200 MG in NS 110 ML IV ONE (12:00)
--- NOTE | 2020-06-05 13:31 | Cardiac Electrophysiology PN ---
Assessment/Plan Assessment/Plan 1. [id number] myocardial infarction. Her troponin was 1.258, 1.2, 1.9, 3.4 and the down to 0.7 EKG shows Inferolateral ischemia Due to septic shock, DCCV and Renal failure. Echo had poor windows. 2. PAF with RVR. S/P DCCV 3 times No more fib or accelerated junctional rhythm. Off beta-ramakrishna or calcium-channel ramakrishna as the patient is still on Dopamine 3. S/P Septic shock. On antibiotic. Keep off Midodrine in view of bradycardia. Added Florinef 0.1 mg daily 4. Bradycardia requiring Atropine x 3 on 05/30/20. Dopamine DCed today 5. Severe hypernatremia with sodium of 174, BUN of 131, creatinine 2.7 due to dehydration. Improved. Co 0.5 now 6. Dysphagia, status post PEG replacement per Dr Matos 7. History of CVA and dementia. 8. Respiratory failure, S/P Tracheostomy by Dr. Garcia 06/01/20 KIMMY RN Subjective Subjective In ICU in [facility] with no atrial fib but had bradycardia and received atropine 3 times on 05/31/20 Dopamine DCed today. S/P Trach and PEG on 06/02/20. ECG 06/02/20 showed inferolateral ischemia On 80% Fio2 Objective Last 24 Hour Vital Signs Date Time Temp Pulse Resp B/P (MAP) Pulse Ox O2 Delivery O2 Flow Rate FiO2 06/05/20 13:00 57 16 114/48 (70) 100 06/05/20 12:00 Mechanical Ventilator 06/05/20 12:00 40 06/05/20 12:00 98.7 59 12 99/41 (60) 100 06/05/20 12:00 58 06/05/20 11:11 61 13 60 06/05/20 11:00 69 14 104/47 (66) 06/05/20 11:00 63 16 94/41 (58) 100 06/05/20 10:00 60 12 90/37 (54) 100 06/05/20 09:00 98.1 66 14 107/45 (65) 99 06/05/20 08:00 40 06/05/20 08:00 Mechanical Ventilator 06/05/20 08:00 63 15 101/47 (65) 100 06/05/20 08:00 63 06/05/20 07:01 56 12 60 06/05/20 07:00 63 13 100/44 (62) 96 06/05/20 06:30 60 12 06/05/20 06:00 67 18 105/50 (68) 100 06/05/20 05:00 68 18 104/58 (73) 100 06/05/20 04:00 98.6 87 19 104/56 (72) 96 06/05/20 04:00 40 06/05/20 04:00 Mechanical Ventilator 06/05/20 03:50 74 13 70 06/05/20 03:12 75 06/05/20 03:00 76 16 99/50 (66) 95 06/05/20 02:00 74 17 91/55 (67) 100 06/05/20 01:00 78 20 98/55 (69) 94 06/05/20 00:00 98.6 81 16 97/53 (68) 96 06/05/20 00:00 Mechanical Ventilator 06/05/20 00:00 40 06/04/20 23:47 79 06/04/20 23:10 83 16 80 06/04/20 23:00 82 15 94/59 (71) 99 06/04/20 22:00 92 20 101/65 (77) 99 06/04/20 21:00 92 21 107/70 (82) 100 06/04/20 20:00 40 06/04/20 20:00 98.4 93 18 100/64 (76) 96 06/04/20 20:00 Mechanical Ventilator 06/04/20 19:41 103 06/04/20 19:41 101 23 100 06/04/20 19:02 99 20 105/60 (75) 97 06/04/20 18:45 180/145 06/04/20 18:30 156/136 06/04/20 18:00 95 18 88/76 (80) 100 06/04/20 18:00 98/76 06/04/20 17:00 90 16 84/47 (59) 100 06/04/20 17:00 94/52 06/04/20 16:00 Mechanical Ventilator 06/04/20 16:00 75 16 116/59 (78) 95 06/04/20 16:00 Mechanical Ventilator 06/04/20 16:00 77 06/04/20 16:00 40 06/04/20 16:00 106/65 06/04/20 16:00 98.7 77 20 106/57 (73) 94 06/04/20 15:00 73 13 40 06/04/20 15:00 91/45 06/04/20 15:00 80 16 97/45 (62) 98 06/04/20 14:00 80 14 110/52 (71) 100 06/04/20 14:00 110/52 Intake and Output 06/04/20 06/05/20 19:00 07:00 Intake Total 1686.950 ml 1823.75 ml Output Total 1525 ml 575 ml Balance 161.950 ml 1248.75 ml Free Water 60 ml IV Total 966.950 ml 1043.75 ml Tube Feeding 720 ml 720 ml Output Urine Total 1525 ml 575 ml # Bowel Movements 1 Laboratory Tests Test 06/04/20 17:00 06/04/20 17:26 06/04/20 23:17 06/05/20 03:50 Stool Occult Blood Pending POC Whole Blood Glucose 128 MG/DL (74-106) H Pending White Blood Count 5.7 K/UL (4.8-10.8) Red Blood Count 2.61 M/UL (4.20-5.40) L Hemoglobin 8.0 G/DL (12.0-16.0) L Hematocrit 23.5 % (37.0-47.0) L Mean Corpuscular Volume 90 FL (80-99) Mean Corpuscular Hemoglobin 30.6 PG (27.0-31.0) Mean Corpuscular Hemoglobin Concent 34.0 G/DL (32.0-36.0) Red Cell Distribution Width 13.8 % (11.6-14.8) Platelet Count 176 K/UL (150-450) Mean Platelet Volume 6.8 FL (6.5-10.1) Neutrophils (%) (Auto) 78.9 % (45.0-75.0) H Lymphocytes (%) (Auto) 9.3 % (20.0-45.0) L Monocytes (%) (Auto) 9.2 % (1.0-10.0) Eosinophils (%) (Auto) 1.6 % (0.0-3.0) Basophils (%) (Auto) 0.9 % (0.0-2.0) Sodium Level 142 MMOL/L (136-145) Potassium Level 3.8 MMOL/L (3.5-5.1) Chloride Level 109 MMOL/L (98-107) H Carbon Dioxide Level 29 MMOL/L (21-32) Anion Gap 4 mmol/L (5-15) L Blood Urea Nitrogen 22 mg/dL (7-18) H Creatinine 0.5 MG/DL (0.55-1.30) L Estimat Glomerular Filtration Rate > 60 mL/min (>60) Glucose Level 114 MG/DL (74-106) H Calcium Level 8.3 MG/DL (8.5-10.1) L Phosphorus Level 1.6 MG/DL (2.5-4.9) L Magnesium Level 1.9 MG/DL (1.8-2.4) Test 06/05/20 04:49 POC Whole Blood Glucose 96 MG/DL (74-106) Microbiology Date/Time Source Procedure Growth Status 06/04/20 09:15 Blood Blood Culture - Preliminary Resulted Objective HEAD AND NECK: No JVD. Tracheostomy in place. LUNGS: Coarse rhonchi. CARDIOVASCULAR: Regular S1 and S2 with no gallop. ABDOMEN: Soft. G-tube site in place EXTREMITIES: Show no pitting edema. Norman Morillo MD Jun 05, 2020 13:31
--- NOTE | 2020-06-05 13:32 | Cardiology Report ---
APPROVED REPORT EXAM: Two-dimensional and M-mode echocardiogram with Doppler and color Doppler. INDICATION Ejection fraction M-Mode DIMENSIONS IVSd1.0 (0.7-1.1cm)Left Atrium (MM)3.0 (1.6-4.0cm) LVDd4.6 (3.5-5.6cm)Aortic Root3.2 (2.0-3.7cm) PWd1.1 (0.7-1.1cm)Aortic Cusp Exc.2.0 (1.5-2.0cm) IVSs1.2 cmEPSS0.6 (>1.0cm) LVDs2.7 (2.5-4.0cm) PWs1.5 cm <Conclusion> Normal left ventricular chamber size, systolic function and wall motion. Left ventricular ejection fraction estimated to be 65-70 %. No evidence of left ventricular hypertrophy. Trivial pericardial effusion. Moderate pleural effusion. All other cardiac chamber sizes are within normal limits. Focal aortic valve sclerosis with adequate cusp excursion. Thickened mitral valve leaflets with normal excursion. Mitral annulus and aortic root calcification. Pulmonic valve not well visualized. Normal tricuspid valve structure. IVC is normal in size without physiological collapse. A color flow and spectral Doppler study was performed and revealed: Mild aortic regurgitation. Trace mitral regurgitation. Mitral diastolic velocities suggest mild left ventricular diastolic dysfunction (Grade I). Mild tricuspid regurgitation. Tricuspid systolic velocities suggests peak right ventricular systolic pressure of 38 mmHg, consistent with mild pulmonary hypertension. No pulmonic regurgitation present.
--- NOTE | 2020-06-05 13:40 | General Progress Note ---
Subjective ROS Limited/Unobtainable: Yes Allergies: Coded Allergies: DIVALPROEX SODIUM (Verified Allergy, Unknown, 05/14/20) PENICILLINS (Verified Allergy, Unknown, 05/14/20) Subjective events noted and interval notes reviewed glucose values are stable on vent - in ICU Item Value Date Time Bedside Blood Glucose 125 mg/dl H 06/05/20 1200 Bedside Blood Glucose 114 mg/dl 06/04/20 2319 Bedside Blood Glucose 128 mg/dl H 06/04/20 1729 Bedside Blood Glucose 96 mg/dl 06/05/20 0500 Objective Last 24 Hour Vital Signs Date Time Temp Pulse Resp B/P (MAP) Pulse Ox O2 Delivery O2 Flow Rate FiO2 06/05/20 13:00 57 16 114/48 (70) 100 06/05/20 12:00 Mechanical Ventilator 06/05/20 12:00 40 06/05/20 12:00 98.7 59 12 99/41 (60) 100 06/05/20 12:00 58 06/05/20 11:11 61 13 60 06/05/20 11:00 69 14 104/47 (66) 06/05/20 11:00 63 16 94/41 (58) 100 06/05/20 10:00 60 12 90/37 (54) 100 06/05/20 09:00 98.1 66 14 107/45 (65) 99 06/05/20 08:00 40 06/05/20 08:00 Mechanical Ventilator 06/05/20 08:00 63 15 101/47 (65) 100 06/05/20 08:00 63 06/05/20 07:01 56 12 60 06/05/20 07:00 63 13 100/44 (62) 96 06/05/20 06:30 60 12 06/05/20 06:00 67 18 105/50 (68) 100 06/05/20 05:00 68 18 104/58 (73) 100 06/05/20 04:00 98.6 87 19 104/56 (72) 96 06/05/20 04:00 40 06/05/20 04:00 Mechanical Ventilator 06/05/20 03:50 74 13 70 06/05/20 03:12 75 06/05/20 03:00 76 16 99/50 (66) 95 06/05/20 02:00 74 17 91/55 (67) 100 06/05/20 01:00 78 20 98/55 (69) 94 06/05/20 00:00 98.6 81 16 97/53 (68) 96 06/05/20 00:00 Mechanical Ventilator 06/05/20 00:00 40 06/04/20 23:47 79 06/04/20 23:10 83 16 80 06/04/20 23:00 82 15 94/59 (71) 99 06/04/20 22:00 92 20 101/65 (77) 99 06/04/20 21:00 92 21 107/70 (82) 100 06/04/20 20:00 40 06/04/20 20:00 98.4 93 18 100/64 (76) 96 06/04/20 20:00 Mechanical Ventilator 06/04/20 19:41 103 06/04/20 19:41 101 23 100 06/04/20 19:02 99 20 105/60 (75) 97 06/04/20 18:45 180/145 06/04/20 18:30 156/136 06/04/20 18:00 95 18 88/76 (80) 100 06/04/20 18:00 98/76 06/04/20 17:00 90 16 84/47 (59) 100 06/04/20 17:00 94/52 06/04/20 16:00 Mechanical Ventilator 06/04/20 16:00 75 16 116/59 (78) 95 06/04/20 16:00 Mechanical Ventilator 06/04/20 16:00 77 06/04/20 16:00 40 06/04/20 16:00 106/65 06/04/20 16:00 98.7 77 20 106/57 (73) 94 06/04/20 15:00 73 13 40 06/04/20 15:00 91/45 06/04/20 15:00 80 16 97/45 (62) 98 06/04/20 14:00 80 14 110/52 (71) 100 06/04/20 14:00 110/52 Intake and Output 06/04/20 06/05/20 19:00 07:00 Intake Total 1686.950 ml 1823.75 ml Output Total 1525 ml 575 ml Balance 161.950 ml 1248.75 ml Free Water 60 ml IV Total 966.950 ml 1043.75 ml Tube Feeding 720 ml 720 ml Output Urine Total 1525 ml 575 ml # Bowel Movements 1 Laboratory Tests 06/04/20 17:00: Stool Occult Blood [Pending] 06/04/20 17:26: POC Whole Blood Glucose 128H 06/04/20 23:17: POC Whole Blood Glucose [Pending] 06/05/20 03:50: White Blood Count 5.7, Red Blood Count 2.61L, Hemoglobin 8.0L, Hematocrit 23.5L, Mean Corpuscular Volume 90, Mean Corpuscular Hemoglobin 30.6, Mean Corpuscular Hemoglobin Concent 34.0, Red Cell Distribution Width 13.8, Platelet Count 176, Mean Platelet Volume 6.8, Neutrophils (%) (Auto) 78.9H, Lymphocytes (%) (Auto) 9.3L, Monocytes (%) (Auto) 9.2, Eosinophils (%) (Auto) 1.6, Basophils (%) (Auto) 0.9, Sodium Level 142, Potassium Level 3.8, Chloride Level 109H, Carbon Dioxide Level 29, Anion Gap 4L, Blood Urea Nitrogen 22H, Creatinine 0.5L, Estimat Glomerular Filtration Rate > 60, Glucose Level 114H, Calcium Level 8.3L, Phosphorus Level 1.6L, Magnesium Level 1.9 06/05/20 04:49: POC Whole Blood Glucose 96 Height (Feet): 5 Height (Inches): 5.00 Weight (Pounds): 142 General Appearance: other - on vent Neck: other - ETT Cardiovascular: normal rate Respiratory/Chest: decreased breath sounds Abdomen: normal bowel sounds Objective Current Medications Medications (Trade) Dose Ordered Sig/Morgan Route PRN Reason Start Time Stop Time Status Last Admin Dose Admin Acetaminophen (Tylenol) 650 mg Q4H PRN GT Temp >100.5 05/16/20 06:15 06/15/20 06:14 05/31/20 13:15 Acetaminophen (Tylenol) 650 mg Q4H PRN RECTAL Temp >100.5 05/16/20 19:45 06/15/20 19:44 05/17/20 18:30 Atropine Sulfate (Atropine 0.4mg/ ml) 0.4 mg Q2HR PRN IVP HR <45 05/29/20 21:30 06/28/20 19:24 05/30/20 22:39 Ceftolozane/ Tazobactam 3 gm/ Sodium Chloride 110 ml @ 110 mls/hr Q8HR IV 06/04/20 14:00 06/11/20 13:59 06/05/20 13:00 Chlorhexidine Gluconate (Illliam-Hex 2%) 1 applic DAILY@2000 TOPIC 05/15/20 20:00 08/13/20 19:59 06/04/20 20:14 Dextrose (Dextrose 50%) 25 ml Q30M PRN IV Hypoglycemia 05/22/20 00:00 08/20/20 00:00 Dextrose (Dextrose 50%) 50 ml Q30M PRN IV Hypoglycemia 05/22/20 00:00 08/20/20 00:00 Dopamine HCl/ Dextrose 250 ml @ 0 mls/hr Q24H IV 06/03/20 17:00 06/06/20 21:00 06/03/20 17:32 Enoxaparin Sodium (Lovenox) 60 mg EVERY 12 HOURS SUBQ 06/03/20 21:00 09/01/20 20:59 06/05/20 08:41 Fludrocortisone Acetate (Florinef) 0.1 mg DAILY ORAL 06/05/20 09:00 07/05/20 08:59 06/05/20 08:40 Insulin Aspart (NovoLOG) EVERY 6 HOURS SUBQ 05/22/20 06:00 08/20/20 05:59 06/04/20 11:47 Pantoprazole (Protonix) 40 mg DAILY IV 05/15/20 09:00 06/14/20 08:59 06/05/20 08:40 Potassium Phosphate 20 mm/ Sodium Chloride 281.6667 ml @ 46.944 m... ONCE ONCE IV 06/05/20 11:00 06/05/20 16:59 06/05/20 11:23 Sodium Chloride 1,000 ml @ 75 mls/hr [id number] IV 05/15/20 06:45 06/14/20 06:44 06/05/20 08:41 Zinc Oxide (Zinc Oxide) 1 applic TIDPRN PRN TOPIC Abdominal cramps 05/20/20 13:00 08/18/20 12:59 Assessment/Plan Problem List: (1) COVID-19 ICD Codes: U07.1 - COVID-19 SNOMED: 542441613 (2) Elevated d-dimer ICD Codes: R79.89 - Other specified abnormal findings of blood chemistry SNOMED: 419451488 (3) Rapid atrial fibrillation ICD Codes: I48.91 - Unspecified atrial fibrillation SNOMED: 307760852 (4) Sepsis ICD Codes: A41.9 - Sepsis, unspecified organism SNOMED: 27762419 (5) Respiratory failure ICD Codes: J96.90 - Respiratory failure, unspecified, unspecified whether with hypoxia or hypercapnia SNOMED: 770957797 (6) Renal failure ICD Codes: N19 - Unspecified kidney failure SNOMED: 67121958 (7) Hypernatremia ICD Codes: E87.0 - Hyperosmolality and hypernatremia SNOMED: 278150342 (8) T2DM (type 2 diabetes mellitus) ICD Codes: E11.9 - Type 2 diabetes mellitus without complications SNOMED: 64085506 Status: stable Assessment/Plan: no need for basal insulin continue Novolog sliding scale every 6 hours hypoglycemia protocol in order Chau Shelley MD Jun 05, 2020 13:40
--- NOTE | 2020-06-05 14:12 | NUR ---
NURSE NOTES: Tube feeding Glucerna 1.2 bottle replaced with new feeding. Patient tolerating feeding well, < 10cc of residual.
--- NOTE | 2020-06-05 15:08 | Cardiology Report ---
APPROVED REPORT EKG Measurement Heart [id number] <Conclusion> Sinus rhythm with marked sinus arrhythmia T wave abnormality, consider inferior ischemia T wave abnormality, consider anterolateral ischemia Abnormal ECG
--- NOTE | 2020-06-05 16:42 | NUR ---
NURSE NOTES: Bed bath given to patient, turned and repositioned. Patient is afebrile, FLACC score 0. Sinus Rhythm on the heart monitor, HR 62.
[2020-06-05] MEDS: DOPamine 400mg/250ml 250 ML IV SCH (16:52)
--- NOTE | 2020-06-05 19:10 | NUR ---
NURSE HAND-OFF REPORT: Latest Vital Signs: Temperature 98.6 , Pulse 71 , B/P 114 /46 , Respiratory Rate 14 , O2 SAT 96 , Mechanical Ventilator, O2 Flow Rate 12.0 . Vital Sign Comment: EKG Rhythm: Sinus Rhythm Rhythm change?: N MD Notified?: N MD Response: No New Orders Received Latest Garza Fall Score: 50 Fall Risk: High Risk Safety Measures: Call light Within Reach, Bed Alarm Zone 2, Side Rails Side Rails x3, Bed position Low and Locked. Fall Precautions: Yellow Socks Yellow Gown Door Sign Patient Fall Education Report given to Jeffery RUIZ.
--- NOTE | 2020-06-05 19:30 | NUR ---
NURSE NOTES: Pt is resting on the bed and obtunded. Trach to Vent dependent and setting with AC: 12, T: 500, P:5, FiO2 80% and SaO2 97-98%. G-tube in placed and on running with Glucerna 1.2 @ 60cc/hr and no residual noted. Pt has Arauz cath and drainage well. Dressing is clean and dry wound area. Pt has Rt. IJ TLC and running with 1/2NS @ 75cc/hr. No fever. No sign of pain by FLACC scale. on court recording monitor with SR. Placed fall precaution. Will continue to monitor any change of condition. Pt will transfer to [facility] and awaiting the room. Will continue to care plan.
[2020-06-05] MEDS: Dyna-Hex 2% Top Sol 2oz TOPIC SCH (19:53)
[2020-06-05] MEDS ORDERED: Tubing IV Secondary IV ONE (21:12)
[2020-06-05] MEDS ORDERED: 1/2 NS 1000ml IV ONE (21:12)
--- NOTE | 2020-06-05 22:00 | NUR ---
NURSE NOTES: According to pharmacy, Zerbaxa 1.5g IV medication is out of stock. Unable to give 10pm schedule medication. Suction and oral care was done. Changed position. Will continue to monitor any change of condition.
[2020-06-06] VITALS (11 sets, daily range): BP systolic 102–142; BP diastolic 42–79
--- NOTE | 2020-06-06 | NUR ---
NURSE NOTES: Pt is resting on the bed and no sign of acute distress noted. No fever. SaO2 99-100% with current Vent setting and tolerated well G tube feeding. Suction and oral care was done. Will continue to monitor any change of condition.
--- NOTE | 2020-06-06 02:00 | NUR ---
NURSE NOTES: Pt is sleeping on the bed and no sign of acute distress noted. SaO2 99-100% with current Vent setting and tolerated well with G- tube feeding. Turn and reposition. Suction and oral care was done. Still waiting the room of [facility]. Will continue to care plan.
--- NOTE | 2020-06-06 04:00 | NUR ---
NURSE NOTES: Morning care was done. Cleaned Pt and applied lotion and cream. changed wound dressing. On Arauz cath and patent. No fever. Collected blood sample. Changed feeding bottle. Given suction and mouth care. Repositioned. Will continue to monitor any change of condition.
[2020-06-06 05:33] LABS: HEMOGLOBIN 7.4 G/DL (12.0-16.0); MEAN CORPUSCULAR VOLUME 91 FL (80-99); PLATELET COUNT 201 K/UL (150-450); RED BLOOD COUNT 2.43 M/UL (4.20-5.40)
--- NOTE | 2020-06-06 05:50 | NUR ---
TRANSFER TO FLOOR: Patient transferred to [facility] room 238-2. Report given to RAMYA. No belonging noted. Pt is resting on the bed and no sign of acute distress noted. SaO2 99-100% with current Vent setting. Applied Tele monitor. On cardiac surgeon with SR. Pt has Rt.IJ and dressing is clean and dry. According to pharmacy, Zerbaxa is out of stock. Endorsed nurse RAMYA.
[2020-06-06 05:56] LABS: ANION GAP 6 mmol/L (5-15); BLOOD UREA NITROGEN 21 mg/dL (7-18); CALCIUM 8.6 MG/DL (8.5-10.1); CARBON DIOXIDE 30 MMOL/L (21-32); CHLORIDE 109 MMOL/L (98-107); CREATININE 0.5 MG/DL (0.55-1.30); PHOSPHORUS 2.4 MG/DL (2.5-4.9); POTASSIUM 3.9 MMOL/L (3.5-5.1); SODIUM 145 MMOL/L (136-145)
[2020-06-06] MEDS: NS IV SCH ×3 (06:00→17:40)
[2020-06-06] MEDS: TAZOBACTAM IV SCH ×3 (06:00→17:40)
[2020-06-06] MEDS: NovoLOG Insulin Flexpen SUBQ SCH ×2 (06:00)
[2020-06-06] MEDS: CEFTOLOZANE IV SCH ×3 (06:00→17:40)
--- NOTE | 2020-06-06 06:00 | NUR ---
NURSE NOTES: Received patient and report from [facility]. Patient partially asleep in bed and occasional moaning while being transferred to new unit, afebrile and no respiratory distress noted. On mech vent via trache Shiley 8, AC 12, TV 500, Fi O2 80% and peep 5 saturating at 100%. On Glucerna 1.2 via GTube at 50 cc/hr infusing well without any sediments. With right IJ TLC intact, asymptomatic and flush w/ 1/2 Ns at 75cc/hr infusing well. Patient was noted trying to pull caregivers non medical. initiated both soft wrist restraints. No paresthesia noted. Pulses palpable on bilateral wrist. Md made aware. With FC to urine bag draining well with yellowish urine. Skin assessment done and noted. HOB elevated. Needs were attended. Bed rails are up and wheels are locked. Continue plan of care.
--- NOTE | 2020-06-06 06:24 | NUR ---
NURSE NOTES: S[facility] endorsed that Per pharmacy Zerbaxa medication not available at this moment.
--- NOTE | 2020-06-06 06:48 | NUR ---
NURSE NOTES: placed call to Dr Wade and left a voicemail regarding patient's Hgb. Awaiting response
--- NOTE | 2020-06-06 06:58 | General Progress Note ---
Subjective ROS Limited/Unobtainable: Yes Allergies: Coded Allergies: DIVALPROEX SODIUM (Verified Allergy, Unknown, 05/14/20) PENICILLINS (Verified Allergy, Unknown, 05/14/20) Subjective events noted and interval notes reviewed glucose values are normal transferred out of ICU Item Value Date Time Bedside Blood Glucose 96 mg/dl 06/06/20 0600 Bedside Blood Glucose 110 mg/dl 06/06/20 0000 Bedside Blood Glucose 111 mg/dl 06/05/20 1800 Bedside Blood Glucose 125 mg/dl H 06/05/20 1200 Bedside Blood Glucose 96 mg/dl 06/05/20 0500 Bedside Blood Glucose 114 mg/dl 06/04/20 2319 Objective Last 24 Hour Vital Signs Date Time Temp Pulse Resp B/P (MAP) Pulse Ox O2 Delivery O2 Flow Rate FiO2 06/06/20 05:30 67 15 116/52 (73) 97 06/06/20 05:00 59 14 106/42 (63) 100 06/06/20 04:00 98.5 66 14 102/45 (64) 98 06/06/20 04:00 80 06/06/20 04:00 Mechanical Ventilator 06/06/20 04:00 67 06/06/20 03:16 70 14 50 06/06/20 03:00 68 16 106/79 (88) 98 06/06/20 02:00 70 13 118/55 (76) 99 06/06/20 01:00 72 19 117/61 (79) 99 06/06/20 00:00 80 06/06/20 00:00 72 06/06/20 00:00 Mechanical Ventilator 06/06/20 00:00 98.9 69 15 142/74 (96) 100 06/05/20 23:02 80 14 50 06/05/20 23:00 71 19 110/55 (73) 98 06/05/20 22:00 68 14 109/49 (69) 100 06/05/20 21:00 73 21 102/46 (64) 100 06/05/20 20:00 80 06/05/20 20:00 70 06/05/20 20:00 98.7 69 11 109/46 (67) 100 06/05/20 20:00 Mechanical Ventilator 06/05/20 19:49 78 15 50 06/05/20 19:00 71 14 114/46 (68) 96 06/05/20 18:00 69 17 99/44 (62) 99 06/05/20 17:00 61 14 110/45 (66) 100 06/05/20 16:52 103/45 06/05/20 16:00 83 06/05/20 16:00 Mechanical Ventilator 06/05/20 16:00 40 06/05/20 16:00 98.6 79 20 113/49 (70) 100 06/05/20 15:02 62 12 50 06/05/20 15:00 84 21 121/87 (98) 100 06/05/20 14:00 56 12 99/39 (59) 100 06/05/20 13:00 57 16 114/48 (70) 100 06/05/20 12:00 Mechanical Ventilator 06/05/20 12:00 40 06/05/20 12:00 98.7 59 12 99/41 (60) 100 06/05/20 12:00 58 06/05/20 11:11 61 13 60 06/05/20 11:00 69 14 104/47 (66) 06/05/20 11:00 63 16 94/41 (58) 100 06/05/20 10:00 60 12 90/37 (54) 100 06/05/20 09:00 98.1 66 14 107/45 (65) 99 06/05/20 08:00 40 06/05/20 08:00 Mechanical Ventilator 06/05/20 08:00 63 15 101/47 (65) 100 06/05/20 08:00 63 06/05/20 07:01 56 12 60 06/05/20 07:00 63 13 100/44 (62) 96 Intake and Output 06/05/20 06/06/20 19:00 07:00 Intake Total 2230.4167 ml 1410 ml Output Total 625 ml 980 ml Balance 1605.4167 ml 430 ml Free Water 100 ml IV Total 1410.4167 ml 750 ml Tube Feeding 720 ml 660 ml Output Urine Total 625 ml 980 ml Laboratory Tests 06/05/20 23:59: POC Whole Blood Glucose 110H 06/06/20 03:45: White Blood Count 7.0, Red Blood Count 2.43L, Hemoglobin 7.4L, Hematocrit 22.0L, Mean Corpuscular Volume 91, Mean Corpuscular Hemoglobin 30.3, Mean Corpuscular Hemoglobin Concent 33.4, Red Cell Distribution Width 14.0, Platelet Count 201, Mean Platelet Volume 7.1, Neutrophils (%) (Auto) , Lymphocytes (%) (Auto) , Monocytes (%) (Auto) , Eosinophils (%) (Auto) , Basophils (%) (Auto) , Sodium Level 145, Potassium Level 3.9, Chloride Level 109H, Carbon Dioxide Level 30, Anion Gap 6, Blood Urea Nitrogen 21H, Creatinine 0.5L, Estimat Glomerular Filtration Rate > 60, Glucose Level 99, Calcium Level 8.6, Phosphorus Level 2.4L , Magnesium Level 1.8 06/06/20 05:19: POC Whole Blood Glucose [Pending] Height (Feet): 5 Height (Inches): 5.00 Weight (Pounds): 142 General Appearance: other - on vent EENT: other - trach Respiratory/Chest: decreased breath sounds Abdomen: normal bowel sounds, other - PEG Objective Current Medications Medications (Trade) Dose Ordered Sig/Morgan Route PRN Reason Start Time Stop Time Status Last Admin Dose Admin Acetaminophen (Tylenol) 650 mg Q4H PRN GT Temp >100.5 05/16/20 06:15 06/15/20 06:14 05/31/20 13:15 Acetaminophen (Tylenol) 650 mg Q4H PRN RECTAL Temp >100.5 05/16/20 19:45 06/15/20 19:44 05/17/20 18:30 Atropine Sulfate (Atropine 0.4mg/ ml) 0.4 mg Q2HR PRN IVP HR <45 05/29/20 21:30 06/28/20 19:24 05/30/20 22:39 Ceftolozane/ Tazobactam 3 gm/ Sodium Chloride 110 ml @ 110 mls/hr Q8HR IV 06/04/20 14:00 06/11/20 13:59 06/05/20 13:00 Chlorhexidine Gluconate (Lilliam-Hex 2%) 1 applic DAILY@2000 TOPIC 05/15/20 20:00 08/13/20 19:59 06/05/20 19:53 Dextrose (Dextrose 50%) 25 ml Q30M PRN IV Hypoglycemia 05/22/20 00:00 08/20/20 00:00 Dextrose (Dextrose 50%) 50 ml Q30M PRN IV Hypoglycemia 05/22/20 00:00 08/20/20 00:00 Enoxaparin Sodium (Lovenox) 60 mg EVERY 12 HOURS SUBQ 06/03/20 21:00 09/01/20 20:59 06/05/20 20:19 Fludrocortisone Acetate (Florinef) 0.1 mg DAILY ORAL 06/05/20 09:00 07/05/20 08:59 06/05/20 08:40 Insulin Aspart (NovoLOG) EVERY 6 HOURS SUBQ 05/22/20 06:00 08/20/20 05:59 06/04/20 11:47 Pantoprazole (Protonix) 40 mg DAILY IV 05/15/20 09:00 06/14/20 08:59 06/05/20 08:40 Sodium Chloride 1,000 ml @ 75 mls/hr [id number] IV 05/15/20 06:45 06/14/20 06:44 06/05/20 21:56 Zinc Oxide (Zinc Oxide) 1 applic TIDPRN PRN TOPIC Abdominal cramps 05/20/20 13:00 08/18/20 12:59 Assessment/Plan Problem List: (1) COVID-19 ICD Codes: U07.1 - COVID-19 SNOMED: 660585355 (2) Elevated d-dimer ICD Codes: R79.89 - Other specified abnormal findings of blood chemistry SNOMED: 242309646 (3) Rapid atrial fibrillation ICD Codes: I48.91 - Unspecified atrial fibrillation SNOMED: 895509818 (4) Sepsis ICD Codes: A41.9 - Sepsis, unspecified organism SNOMED: 67697388 (5) Respiratory failure ICD Codes: J96.90 - Respiratory failure, unspecified, unspecified whether with hypoxia or hypercapnia SNOMED: 165936662 (6) Renal failure ICD Codes: N19 - Unspecified kidney failure SNOMED: 72236428 (7) Hypernatremia ICD Codes: E87.0 - Hyperosmolality and hypernatremia SNOMED: 203289006 (8) T2DM (type 2 diabetes mellitus) ICD Codes: E11.9 - Type 2 diabetes mellitus without complications SNOMED: 88639121 Status: stable Assessment/Plan: glucose values were stable in the past few day without insulin requirement DC glucose check and sliding scale I sign off Chau Shelley MD Jun 06, 2020 06:58
--- NOTE | 2020-06-06 07:07 | NUR ---
RD ASSESSMENT & RECOMMENDATIONS SEE CARE ACTIVITY FOR COMPLETE ASSESSMENT DAILY ESTIMATED NEEDS: Needs based on Critical care, 57.8kg abw 22-30 kcals/kg 8873-6011 total kcals 1.2-2 g protein/kg 69-116 g total protein 25-30 mL/kg 1168-2739 total fluid mLs NUTRITION DIAGNOSIS: Swallowing difficulty r/t h/o CVA, dysphagia as evidenced by pt is GT dep, now intubated w/ resp distress, now s/p trach and new PEG. CURRENT TF:Glucerna 1.2 @ 60ml/hr x24 hrs ENTERAL NUTRITION RECOMMENDATIONS: Glucerna 1.2 @ 60ml/hr x24 hrs to provide 1440ml, 1728 kcal, 86g pro, 1159ml free H2O - Maintain current TF @ goal - Flush per MD. HOB over 30 degrees ADDITIONAL RECOMMENDATIONS: 1) Monitor lytes, replete as needed: low phos 2) Obtain an accurate wt: per MD pt w/ 'cachexia' EMR wt: 117.8kg vs am wts:64kg; trend wt, need to increase TF 3) Wound healing: TF provides 100% RDI add Vit C 250mg QD + Flavio BID 4) Monitor BGs closely: improved-> Decadron dc'ed, Levemir dc'ed .
--- NOTE | 2020-06-06 07:15 | NUR ---
NURSE HAND-OFF REPORT: Important Events on Shift: Transfer from ICU to sdu/ low HGB Patient Status: stable/ PUI Diet: Glcuerna at 60cc/hr Pending Orders: n Pending Results/Labs:n Pending MD notification:n Latest Vital Signs: Temperature 98.5 , Pulse 59 , B/P 116 /52 , Respiratory Rate 13 , O2 SAT 97 , Mechanical Ventilator, O2 Flow Rate 12.0 . Vital Sign Comment: n EKG Rhythm: Sinus Rhythm Rhythm change?: N MD Notified?: Chucky Pierce MD Response: No New Orders Received Latest Garza Fall Score: 50 Fall Risk: High Risk Safety Measures: Call light Within Reach, Bed Alarm Zone 2, Side Rails Side Rails x3, Bed position Low and Locked. Fall Precautions: Yellow Socks Yellow Gown Door Sign Patient Fall Education Report given to SARA Rasmussen. Endorsed regardign Dr herndon order for low hgb and to ff with ID regarding Covid swab result negative
--- NOTE | 2020-06-06 07:29 | NUR ---
NURSE NOTES: Received report from SARA BUI. Patient in bed resting, no active s/s cardiac, respiratory distress noticed at this time. Patient obtunded, Trach to vent Shiley 8 AC 12 TV 500 Fio2 80%, O2 sat 99%, RT made aware titration of Fio2. Right IJ with TLC patent, intact. Arauz Catheter draining well to gravity. Patient on bilateral soft wrist restraints, cap refill <3 sec, able to move, on [employer] order got cancelled, re-entered. Bed in lowest position, side rails upx3, call light within reach, bed alarm on, Will continue to monitor.
--- NOTE | 2020-06-06 07:34 | NUR ---
NURSE NOTES: Endorsed MD ordered 1 unit of PRBC, order entered, noted, and carried out.
--- NOTE | 2020-06-06 07:56 | NUR ---
NURSE NOTES: Called Quinten Lucio, Guardian of the patient to verify consent for blood transfusion, Tele [phone], spoke to Janet office is close now open at 0800, will callback.
[2020-06-06] MEDS: Pantoprazole Inj IV SCH (09:12)
[2020-06-06] MEDS: Enoxaparin 60mg Inj SUBQ SCH ×2 (09:36→20:19)
--- NOTE | 2020-06-06 10:04 | Cardiac Electrophysiology PN ---
Assessment/Plan Assessment/Plan 1. She-[id number] myocardial infarction with peak troponin of 3.4 and down to 0.7 EKG shows Inferolateral ischemia Due to septic shock, DCCV and Renal failure. Echo had poor windows. 2. PAF with RVR. S/P DCCV 3 times No more fib or accelerated junctional rhythm. Off beta-ramakrishna or calcium-channel ramakrishna as the patient is still on Dopamine 3. S/P Septic shock. On antibiotic. Off Midodrine in view of bradycardia and on Florinef 0.1 mg daily 4. Bradycardia requiring Atropine x 3 on 05/30/20. Off Dopamine 5. Severe hypernatremia with sodium of 174, BUN of 131, creatinine 2.7 due to dehydration. Improved. Cr 0.5 now 6. Dysphagia, status post PEG replacement per Dr Matos 7. History of CVA and dementia. 8. Respiratory failure, S/P Tracheostomy by Dr. Garcia 06/01/20 DW RN Subjective Subjective Transferred to SDU from ICU in with no atrial fib but had bradycardia and received atropine 3 times on 05/31/20 S/P Trach and PEG on 06/02/20. ECG 06/02/20 showed inferolateral ischemia On 80% Fio2. 3rd Covid is negative. Awaiting DC isolation by ID Objective Last 24 Hour Vital Signs Date Time Temp Pulse Resp B/P (MAP) Pulse Ox O2 Delivery O2 Flow Rate FiO2 06/06/20 08:00 Mechanical Ventilator 06/06/20 07:00 59 13 50 06/06/20 05:30 67 15 116/52 (73) 97 06/06/20 05:00 59 14 106/42 (63) 100 06/06/20 04:00 98.5 66 14 102/45 (64) 98 06/06/20 04:00 80 06/06/20 04:00 Mechanical Ventilator 06/06/20 04:00 67 06/06/20 03:16 70 14 50 06/06/20 03:00 68 16 106/79 (88) 98 06/06/20 02:00 70 13 118/55 (76) 99 06/06/20 01:00 72 19 117/61 (79) 99 06/06/20 00:00 80 06/06/20 00:00 72 06/06/20 00:00 Mechanical Ventilator 06/06/20 00:00 98.9 69 15 142/74 (96) 100 06/05/20 23:02 80 14 50 06/05/20 23:00 71 19 110/55 (73) 98 06/05/20 22:00 68 14 109/49 (69) 100 06/05/20 21:00 73 21 102/46 (64) 100 06/05/20 20:00 80 06/05/20 20:00 70 06/05/20 20:00 98.7 69 11 109/46 (67) 100 06/05/20 20:00 Mechanical Ventilator 06/05/20 19:49 78 15 50 06/05/20 19:00 71 14 114/46 (68) 96 06/05/20 18:00 69 17 99/44 (62) 99 06/05/20 17:00 61 14 110/45 (66) 100 06/05/20 16:52 103/45 06/05/20 16:00 83 06/05/20 16:00 Mechanical Ventilator 06/05/20 16:00 40 06/05/20 16:00 98.6 79 20 113/49 (70) 100 06/05/20 15:02 62 12 50 06/05/20 15:00 84 21 121/87 (98) 100 06/05/20 14:00 56 12 99/39 (59) 100 06/05/20 13:00 57 16 114/48 (70) 100 06/05/20 12:00 Mechanical Ventilator 06/05/20 12:00 40 06/05/20 12:00 98.7 59 12 99/41 (60) 100 06/05/20 12:00 58 06/05/20 11:11 61 13 60 06/05/20 11:00 69 14 104/47 (66) 06/05/20 11:00 63 16 94/41 (58) 100 Intake and Output 06/05/20 06/06/20 19:00 07:00 Intake Total 2230.4167 ml 1470 ml Output Total 625 ml 1030 ml Balance 1605.4167 ml 440 ml Free Water 100 ml IV Total 1410.4167 ml 750 ml Tube Feeding 720 ml 720 ml Output Urine Total 625 ml 1030 ml Laboratory Tests Test 06/05/20 23:59 06/06/20 03:45 9/28/20 05:19 POC Whole Blood Glucose 110 MG/DL (74-106) H Pending White Blood Count 7.0 K/UL (4.8-10.8) Red Blood Count 2.43 M/UL (4.20-5.40) L Hemoglobin 7.4 G/DL (12.0-16.0) L Hematocrit 22.0 % (37.0-47.0) L Mean Corpuscular Volume 91 FL (80-99) Mean Corpuscular Hemoglobin 30.3 PG (27.0-31.0) Mean Corpuscular Hemoglobin Concent 33.4 G/DL (32.0-36.0) Red Cell Distribution Width 14.0 % (11.6-14.8) Platelet Count 201 K/UL (150-450) Mean Platelet Volume 7.1 FL (6.5-10.1) Neutrophils (%) (Auto) % (45.0-75.0) Lymphocytes (%) (Auto) % (20.0-45.0) Monocytes (%) (Auto) % (1.0-10.0) Eosinophils (%) (Auto) % (0.0-3.0) Basophils (%) (Auto) % (0.0-2.0) Sodium Level 145 MMOL/L (136-145) Potassium Level 3.9 MMOL/L (3.5-5.1) Chloride Level 109 MMOL/L (98-107) H Carbon Dioxide Level 30 MMOL/L (21-32) Anion Gap 6 mmol/L (5-15) Blood Urea Nitrogen 21 mg/dL (7-18) H Creatinine 0.5 MG/DL (0.55-1.30) L Estimat Glomerular Filtration Rate > 60 mL/min (>60) Glucose Level 99 MG/DL (74-106) Calcium Level 8.6 MG/DL (8.5-10.1) Phosphorus Level 2.4 MG/DL (2.5-4.9) L Magnesium Level 1.8 MG/DL (1.8-2.4) Microbiology Date/Time Source Procedure Growth Status 06/04/20 09:15 Blood Blood Culture - Preliminary Gram Negative Yunior Resulted Objective HEAD AND NECK: No JVD. Tracheostomy in place. LUNGS: Coarse rhonchi. CARDIOVASCULAR: Regular S1 and S2 with no gallop. ABDOMEN: Soft. G-tube site in place EXTREMITIES: Show no pitting edema. Norman Morillo MD Jun 06, 2020 10:04
--- NOTE | 2020-06-06 10:11 | Pulmonology Progress Note ---
Subjective ROS Limited/Unobtainable: Yes Allergies: Coded Allergies: DIVALPROEX SODIUM (Verified Allergy, Unknown, 05/14/20) PENICILLINS (Verified Allergy, Unknown, 05/14/20) All Systems: reviewed and negative except above Objective Last 24 Hour Vital Signs Date Time Temp Pulse Resp B/P (MAP) Pulse Ox O2 Delivery O2 Flow Rate FiO2 06/06/20 08:00 Mechanical Ventilator 06/06/20 07:00 59 13 50 06/06/20 05:30 67 15 116/52 (73) 97 06/06/20 05:00 59 14 106/42 (63) 100 06/06/20 04:00 98.5 66 14 102/45 (64) 98 06/06/20 04:00 80 06/06/20 04:00 Mechanical Ventilator 06/06/20 04:00 67 06/06/20 03:16 70 14 50 06/06/20 03:00 68 16 106/79 (88) 98 06/06/20 02:00 70 13 118/55 (76) 99 06/06/20 01:00 72 19 117/61 (79) 99 06/06/20 00:00 80 06/06/20 00:00 72 06/06/20 00:00 Mechanical Ventilator 06/06/20 00:00 98.9 69 15 142/74 (96) 100 06/05/20 23:02 80 14 50 06/05/20 23:00 71 19 110/55 (73) 98 06/05/20 22:00 68 14 109/49 (69) 100 06/05/20 21:00 73 21 102/46 (64) 100 06/05/20 20:00 80 06/05/20 20:00 70 06/05/20 20:00 98.7 69 11 109/46 (67) 100 06/05/20 20:00 Mechanical Ventilator 06/05/20 19:49 78 15 50 06/05/20 19:00 71 14 114/46 (68) 96 06/05/20 18:00 69 17 99/44 (62) 99 06/05/20 17:00 61 14 110/45 (66) 100 06/05/20 16:52 103/45 06/05/20 16:00 83 06/05/20 16:00 Mechanical Ventilator 06/05/20 16:00 40 06/05/20 16:00 98.6 79 20 113/49 (70) 100 06/05/20 15:02 62 12 50 06/05/20 15:00 84 21 121/87 (98) 100 06/05/20 14:00 56 12 99/39 (59) 100 06/05/20 13:00 57 16 114/48 (70) 100 06/05/20 12:00 Mechanical Ventilator 06/05/20 12:00 40 06/05/20 12:00 98.7 59 12 99/41 (60) 100 06/05/20 12:00 58 06/05/20 11:11 61 13 60 06/05/20 11:00 69 14 104/47 (66) 06/05/20 11:00 63 16 94/41 (58) 100 Intake and Output 06/05/20 06/06/20 19:00 07:00 Intake Total 2230.4167 ml 1470 ml Output Total 625 ml 1030 ml Balance 1605.4167 ml 440 ml Free Water 100 ml IV Total 1410.4167 ml 750 ml Tube Feeding 720 ml 720 ml Output Urine Total 625 ml 1030 ml General Appearance: no acute distress HEENT: normocephalic, status post trach Respiratory: chest wall non-tender, lungs clear, other - trach in place Cardiovascular: normal peripheral pulses, normal rate, regular rhythm Abdomen: normal bowel sounds, soft, non tender, non distended, other - GT Extremities: no cyanosis, no clubbing, no edema Neurologic: unresponsiveness Microbiology Date/Time Source Procedure Growth Status 06/04/20 09:15 Blood Blood Culture - Preliminary Gram Negative Yunior Resulted Laboratory Tests 06/05/20 23:59: POC Whole Blood Glucose 110H 06/06/20 03:45: White Blood Count 7.0, Red Blood Count 2.43L, Hemoglobin 7.4L, Hematocrit 22.0L, Mean Corpuscular Volume 91, Mean Corpuscular Hemoglobin 30.3, Mean Corpuscular Hemoglobin Concent 33.4, Red Cell Distribution Width 14.0, Platelet Count 201, Mean Platelet Volume 7.1, Neutrophils (%) (Auto) , Lymphocytes (%) (Auto) , Monocytes (%) (Auto) , Eosinophils (%) (Auto) , Basophils (%) (Auto) , Sodium Level 145, Potassium Level 3.9, Chloride Level 109H, Carbon Dioxide Level 30, Anion Gap 6, Blood Urea Nitrogen 21H, Creatinine 0.5L, Estimat Glomerular Filtration Rate > 60, Glucose Level 99, Calcium Level 8.6, Phosphorus Level 2.4L , Magnesium Level 1.8 06/06/20 05:19: POC Whole Blood Glucose [Pending] Current Medications Medications (Trade) Dose Ordered Sig/Morgan Route PRN Reason Start Time Stop Time Status Last Admin Dose Admin Acetaminophen (Tylenol) 650 mg Q4H PRN GT Temp >100.5 05/16/20 06:15 06/15/20 06:14 05/31/20 13:15 Acetaminophen (Tylenol) 650 mg Q4H PRN RECTAL Temp >100.5 05/16/20 19:45 06/15/20 19:44 05/17/20 18:30 Atropine Sulfate (Atropine 0.4mg/ ml) 0.4 mg Q2HR PRN IVP HR <45 05/29/20 21:30 06/28/20 19:24 05/30/20 22:39 Ceftolozane/ Tazobactam 1.5 gm/ Sodium Chloride 110 ml @ 110 mls/hr Q8H IV 06/06/20 10:00 06/13/20 09:59 Chlorhexidine Gluconate (Lilliam-Hex 2%) 1 applic DAILY@2000 TOPIC 05/15/20 20:00 08/13/20 19:59 06/05/20 19:53 Enoxaparin Sodium (Lovenox) 60 mg EVERY 12 HOURS SUBQ 06/03/20 21:00 09/01/20 20:59 06/06/20 09:36 Fludrocortisone Acetate (Florinef) 0.1 mg DAILY ORAL 06/05/20 09:00 07/05/20 08:59 06/06/20 09:12 Pantoprazole (Protonix) 40 mg DAILY IV 05/15/20 09:00 06/14/20 08:59 06/06/20 09:12 Sodium Chloride 1,000 ml @ 75 mls/hr [id number] IV 05/15/20 06:45 06/14/20 06:44 06/05/20 21:56 Zinc Oxide (Zinc Oxide) 1 applic TIDPRN PRN TOPIC Abdominal cramps 05/20/20 13:00 08/18/20 12:59 Assessment/Plan Assessment/Plan Pulmonary Progress Note Subjective ROS Limited/Unobtainable: Yes Allergies: Coded Allergies: DIVALPROEX SODIUM (Verified Allergy, Unknown, 05/14/20) PENICILLINS (Verified Allergy, Unknown, 05/14/20) All Systems: reviewed and negative except above Subjective stableovernight,in SDU Objective Vital Signs noted General Appearance: no acute distress HEENT: normocephalic, status post trach Respiratory: chest wall non-tender, lungs clear, other - trach in place Cardiovascular: normal peripheral pulses, normal rate, regular rhythm Abdomen: normal bowel sounds, soft, non tender, non distended, other - GT Extremities: no cyanosis, no clubbing, no edema Neurologic: unresponsiveness Microbiology Date/Time Source Procedure Growth Status 06/04/20 09:15 Blood Blood Culture - Preliminary Resulted Laboratory Tests noted Assessment/Plan Assessment/Plan 1. Acute respiratory failure. 2. Diabetes mellitus with hyperglycemia. 3. Septic shock. 4. Chronic G-tube. 5. Decubitus. 6. History of CHF. 7. Tracheostomy 8. severe PCM 9. pleural effusions 10. atelectasis DISCUSSION: monitor vent setting and adjust Continue fluids and antibiotics. Pressors prn S/p trach wean as able On 40% FiO2 DVT and GI prophylaxis. nutrition and protein replacement Respiratory precautions due to COVID-19 status. trach and peg care medications/laboratory data/nursing notes/ICU care reviewed in detail note reviewed and edited care discussed with RN and RT ICU time spent >40 minutes Erasto Shore MD Jun 06, 2020 10:11
--- NOTE | 2020-06-06 11:05 | Infectious Diseases Prog Note ---
Assessment/Plan 70 yo female with PMHx of Dementia, DM, CVA ( S/P PEG), COVID 19 infection and pressure ulcers. Septic Shock-combination cardiogenic and septic; -back on pressors, decreasing Gram positive bacteremia- contaminant; recurrent -05/14 Bcx 1/ S. haemolyticus; 05/17 Bcx Neg -05/31 Bcx 1/2 P.a -06/01 Bcx Neg -06/04 Bcx GNR -06/06 BCx - Pend UTI, sp rx UA (+); ucx 10-20k P. mirabilis (S Ceftriaxone, Cefepime) PNA, superimposed bacterial, sp rx Recent COVID19 pna- now repeat neg x2 -05/27 CXR: Previously seen left lung atelectasis has nearly completely resolved. Retrocardiac atelectasis without or with some component of cons olidation. Low lung volumes with bronchovascular crowding. -05/26 CXR: Complete opacification of the left hemithorax with mediastinal shift to the left likely due to complete atelectasis of the left lung perhaps from mucous plugging. rapid COVID PCR neg -05/25 sp cx MDR PsA (I Ceftazidime, Colistin, Polymixin B); suspect colonizer SARS-COV2 neg -05/24 SARS-COV2 pCR inconclusive -05/23 CXR: Worsening aeration with increasing hazy opacification of the left lung base which may related to increased layering pleural effusion and adjacent atelectasis/consolidation. -05/19 CXR: Increasing left pleural fluid and likely basilar consolidation/atelectasis. Interim orogastric intubation 05/16 CXR: Retrocardiac density may represent atelectasis versus infiltrate. CXR 05/14/20 showed Retrocardiac atelectasis/infiltrate with Pulmonary venous congestion. sp cx MDR E.coli (S Cefepime, Meropenem, Zosyn) Hx of COVID 19 - Bacteria secondary infection? Asp PNA? COVID 19 tested Pos [facility] - about 3 week DIGITAL PRINTER -still positive Rapid COVID PCR 05/14 Resp Fail Intuabted on Vent Leukocytosis; increased (sp steroids)- SP Fever; low grade ,recurrent -06/01 u/a wbc 10-15, nit neg, leuk +1 L femoral DVT EMA, SP SVT -sp cardioversion Hyperglycemia Elevated LFTs; resolving -Abd US: Gallbladder sludge. Negative for dilated bile ducts. Normal appearing liver and spleen. Trace ascites sp trach/peg 06/01 Dementia DM Hx CVA ( S/P PEG) pressure ulcers PLAN - Continue Zerbaxa #2 for MDR PsA bacteremia, if worsening can try double coverage w/ colistin or polyB but overall slightly stable currently - Patient stable and Blood Cx negative from 06/01/20 and only 09/10. The lab is working on Zerbaxa and Avycaz Sensi - 06/03/20 SP Meropenem #2 - 06/02/20 SP Vancomycin #2 - 05/27 SP Meropenem #11 - 05/24 SP Decadron #11 - 05/19 SP IV Vancomcyin #6 - 05/17 SP Cefepime #4 - f/u Cultures - Monitor CBC and Temps -repeat covid neg x2 -f/u repeat cultures Thank you for consulting [facility]. Will continue to follow along with you. Discussed with RN and Pharmacy staff Subjective Allergies: Coded Allergies: DIVALPROEX SODIUM (Verified Allergy, Unknown, 05/14/20) PENICILLINS (Verified Allergy, Unknown, 05/14/20) Afebrile No Leukocytosis On vent 50% Objective Last 24 Hour Vital Signs Date Time Temp Pulse Resp B/P (MAP) Pulse Ox O2 Delivery O2 Flow Rate FiO2 06/06/20 08:00 Mechanical Ventilator 06/06/20 07:00 59 13 50 06/06/20 05:30 67 15 116/52 (73) 97 06/06/20 05:00 59 14 106/42 (63) 100 06/06/20 04:00 98.5 66 14 102/45 (64) 98 06/06/20 04:00 80 06/06/20 04:00 Mechanical Ventilator 06/06/20 04:00 67 06/06/20 03:16 70 14 50 06/06/20 03:00 68 16 106/79 (88) 98 06/06/20 02:00 70 13 118/55 (76) 99 06/06/20 01:00 72 19 117/61 (79) 99 06/06/20 00:00 80 06/06/20 00:00 72 06/06/20 00:00 Mechanical Ventilator 06/06/20 00:00 98.9 69 15 142/74 (96) 100 06/05/20 23:02 80 14 50 06/05/20 23:00 71 19 110/55 (73) 98 06/05/20 22:00 68 14 109/49 (69) 100 06/05/20 21:00 73 21 102/46 (64) 100 06/05/20 20:00 80 06/05/20 20:00 70 06/05/20 20:00 98.7 69 11 109/46 (67) 100 06/05/20 20:00 Mechanical Ventilator 06/05/20 19:49 78 15 50 06/05/20 19:00 71 14 114/46 (68) 96 06/05/20 18:00 69 17 99/44 (62) 99 06/05/20 17:00 61 14 110/45 (66) 100 06/05/20 16:52 103/45 06/05/20 16:00 83 06/05/20 16:00 Mechanical Ventilator 06/05/20 16:00 40 06/05/20 16:00 98.6 79 20 113/49 (70) 100 06/05/20 15:02 62 12 50 06/05/20 15:00 84 21 121/87 (98) 100 06/05/20 14:00 56 12 99/39 (59) 100 06/05/20 13:00 57 16 114/48 (70) 100 06/05/20 12:00 Mechanical Ventilator 06/05/20 12:00 40 06/05/20 12:00 98.7 59 12 99/41 (60) 100 06/05/20 12:00 58 06/05/20 11:11 61 13 60 Height (Feet): 5 Height (Inches): 5.00 Weight (Pounds): 142 GEN: On Vent 50% O2 HEENT: NCAT, MMM, Intubated Pulm: Equal rise and fall B/L ABD: Soft, ND, PEG (No e/p) Neuro: Not following SKIN: Exposed skin with no rash, Normal in color Microbiology Date/Time Source Procedure Growth Status 06/04/20 09:15 Blood Blood Culture - Preliminary Gram Negative Yunior Resulted Laboratory Tests Test 06/05/20 23:59 06/06/20 03:45 06/06/20 05:19 POC Whole Blood Glucose 110 MG/DL (74-106) H Pending White Blood Count 7.0 K/UL (4.8-10.8) Red Blood Count 2.43 M/UL (4.20-5.40) L Hemoglobin 7.4 G/DL (12.0-16.0) L Hematocrit 22.0 % (37.0-47.0) L Mean Corpuscular Volume 91 FL (80-99) Mean Corpuscular Hemoglobin 30.3 PG (27.0-31.0) Mean Corpuscular Hemoglobin Concent 33.4 G/DL (32.0-36.0) Red Cell Distribution Width 14.0 % (11.6-14.8) Platelet Count 201 K/UL (150-450) Mean Platelet Volume 7.1 FL (6.5-10.1) Neutrophils (%) (Auto) % (45.0-75.0) Lymphocytes (%) (Auto) % (20.0-45.0) Monocytes (%) (Auto) % (1.0-10.0) Eosinophils (%) (Auto) % (0.0-3.0) Basophils (%) (Auto) % (0.0-2.0) Sodium Level 145 MMOL/L (136-145) Potassium Level 3.9 MMOL/L (3.5-5.1) Chloride Level 109 MMOL/L (98-107) H Carbon Dioxide Level 30 MMOL/L (21-32) Anion Gap 6 mmol/L (5-15) Blood Urea Nitrogen 21 mg/dL (7-18) H Creatinine 0.5 MG/DL (0.55-1.30) L Estimat Glomerular Filtration Rate > 60 mL/min (>60) Glucose Level 99 MG/DL (74-106) Calcium Level 8.6 MG/DL (8.5-10.1) Phosphorus Level 2.4 MG/DL (2.5-4.9) L Magnesium Level 1.8 MG/DL (1.8-2.4) Current Medications Medications (Trade) Dose Ordered Sig/Morgan Route PRN Reason Start Time Stop Time Status Last Admin Dose Admin Acetaminophen (Tylenol) 650 mg Q4H PRN GT Temp >100.5 05/16/20 06:15 06/15/20 06:14 05/31/20 13:15 Acetaminophen (Tylenol) 650 mg Q4H PRN RECTAL Temp >100.5 05/16/20 19:45 06/15/20 19:44 05/17/20 18:30 Atropine Sulfate (Atropine 0.4mg/ ml) 0.4 mg Q2HR PRN IVP HR <45 05/29/20 21:30 06/28/20 19:24 05/30/20 22:39 Ceftolozane/ Tazobactam 1.5 gm/ Sodium Chloride 110 ml @ 110 mls/hr Q8H IV 06/06/20 10:00 06/13/20 09:59 06/06/20 10:37 Chlorhexidine Gluconate (Lilliam-Hex 2%) 1 applic DAILY@2000 TOPIC 05/15/20 20:00 08/13/20 19:59 06/05/20 19:53 Enoxaparin Sodium (Lovenox) 60 mg EVERY 12 HOURS SUBQ 06/03/20 21:00 09/01/20 20:59 06/06/20 09:36 Fludrocortisone Acetate (Florinef) 0.1 mg DAILY ORAL 06/05/20 09:00 07/05/20 08:59 06/06/20 09:12 Pantoprazole (Protonix) 40 mg DAILY IV 05/15/20 09:00 06/14/20 08:59 06/06/20 09:12 Sodium Chloride 1,000 ml @ 75 mls/hr [id number] IV 05/15/20 06:45 06/14/20 06:44 06/05/20 21:56 Zinc Oxide (Zinc Oxide) 1 applic TIDPRN PRN TOPIC Abdominal cramps 05/20/20 13:00 08/18/20 12:59 Erasto Romeo MD Jun 06, 2020 11:05
--- NOTE | 2020-06-06 12:55 | NUR ---
*-*DISCHARGE PLANNING*-* PATIENT HAS BEEN ACCEPTED TO: [facility] P: [phone] ROOM# 33.A, SKILLED
--- NOTE | 2020-06-06 13:17 | NUR ---
NURSE NOTES: Per Dr. Wade, transfuse 1 unit PRBC, duplicated order cancelled.
--- NOTE | 2020-06-06 13:42 | NUR ---
*--*DISCHARGE PLANNED*-* PATIENT HAS BEEN ACCEPTED TO: [facility] P: [phone] ROOM# 33.A SKILLED [facility] SET FOR WILL CALL
--- NOTE | 2020-06-06 13:46 | NUR ---
NURSE NOTES: Blood transfusion initiated.
--- NOTE | 2020-06-06 14:08 | NUR ---
CASE MANAGEMENT: REVIEW SI: COVID-19 . GRAM POSITIVE BACTEREMIA PEG / TRACH 06/03 T 98.6 HR 59 RR 12 BP 119/54 SAT 94% MECH VENT FIO2 80 H/H 7.4/22.0 BUN 21 CR 0.5 IS: ZERBAXA IV Q8HR K PHOS IV X1 DOPAMINE IV Q24HR NS IVF @ 75ML/HR TRANSFUSE PRBC 1 UNIT STEP DOWN UNIT STATUS DCP: PATIENT IS FROM [facility]
--- NOTE | 2020-06-06 15:21 | NUR ---
NURSE NOTES: Patient is off soft wrist restraints , no pulling of deice noted at this time. Will discontinue restraints.
--- NOTE | 2020-06-06 16:19 | General Progress Note ---
Subjective Date patient seen: Jun 06, 2020 Time patient seen: 15:30 ROS Limited/Unobtainable: Yes Allergies: Coded Allergies: DIVALPROEX SODIUM (Verified Allergy, Unknown, 05/14/20) PENICILLINS (Verified Allergy, Unknown, 05/14/20) All Systems: reviewed and negative except above Subjective Non verbal, tacheostomy and PEG in place, she is noted to be grimacing. SHE IS OFF DOPAMINE since 06/04 Transferred to [facility] 06/05 Anemic today Hb 7.4 Objective Last 24 Hour Vital Signs Date Time Temp Pulse Resp B/P (MAP) Pulse Ox O2 Delivery O2 Flow Rate FiO2 06/06/20 15:24 68 16 50 06/06/20 12:00 98.6 68 12 106/65 (79) 95 06/06/20 12:00 40 06/06/20 12:00 70 06/06/20 12:00 Mechanical Ventilator 06/06/20 11:08 76 17 50 06/06/20 11:00 40 06/06/20 08:00 56 06/06/20 08:00 80 06/06/20 08:00 98.5 64 12 119/54 (75) 94 06/06/20 08:00 Mechanical Ventilator 06/06/20 07:00 59 13 50 06/06/20 05:30 67 15 116/52 (73) 97 06/06/20 05:00 59 14 106/42 (63) 100 06/06/20 04:00 98.5 66 14 102/45 (64) 98 06/06/20 04:00 80 06/06/20 04:00 Mechanical Ventilator 06/06/20 04:00 67 06/06/20 03:16 70 14 50 06/06/20 03:00 68 16 106/79 (88) 98 06/06/20 02:00 70 13 118/55 (76) 99 06/06/20 01:00 72 19 117/61 (79) 99 06/06/20 00:00 80 06/06/20 00:00 72 06/06/20 00:00 Mechanical Ventilator 06/06/20 00:00 98.9 69 15 142/74 (96) 100 06/05/20 23:02 80 14 50 06/05/20 23:00 71 19 110/55 (73) 98 9/27/20 22:00 68 14 109/49 (69) 100 06/05/20 21:00 73 21 102/46 (64) 100 06/05/20 20:00 80 06/05/20 20:00 70 06/05/20 20:00 98.7 69 11 109/46 (67) 100 06/05/20 20:00 Mechanical Ventilator 06/05/20 19:49 78 15 50 06/05/20 19:00 71 14 114/46 (68) 96 06/05/20 18:00 69 17 99/44 (62) 99 06/05/20 17:00 61 14 110/45 (66) 100 06/05/20 16:52 103/45 Intake and Output 06/05/20 06/06/20 19:00 07:00 Intake Total 2230.4167 ml 1545 ml Output Total 625 ml 1030 ml Balance 1605.4167 ml 515 ml Free Water 100 ml IV Total 1410.4167 ml 825 ml Tube Feeding 720 ml 720 ml Output Urine Total 625 ml 1030 ml Laboratory Tests 06/05/20 23:59: POC Whole Blood Glucose 110H 06/06/20 03:45: White Blood Count 7.0, Red Blood Count 2.43L, Hemoglobin 7.4L, Hematocrit 22.0L, Mean Corpuscular Volume 91, Mean Corpuscular Hemoglobin 30.3, Mean Corpuscular Hemoglobin Concent 33.4, Red Cell Distribution Width 14.0, Platelet Count 201, Mean Platelet Volume 7.1, Neutrophils (%) (Auto) , Lymphocytes (%) (Auto) , Monocytes (%) (Auto) , Eosinophils (%) (Auto) , Basophils (%) (Auto) , Sodium Level 145, Potassium Level 3.9, Chloride Level 109H, Carbon Dioxide Level 30, Anion Gap 6, Blood Urea Nitrogen 21H, Creatinine 0.5L, Estimat Glomerular Filtration Rate > 60, Glucose Level 99, Calcium Level 8.6, Phosphorus Level 2.4L , Magnesium Level 1.8 06/06/20 05:19: POC Whole Blood Glucose [Pending] Height (Feet): 5 Height (Inches): 5.00 Weight (Pounds): 142 General Appearance: WD/WN EENT: PERRL/EOMI Cardiovascular: normal rate Respiratory/Chest: decreased breath sounds Abdomen: non tender 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 # Septic with element of cardiogenic shock Etiology COVID 19 vs UTI vs bacteremia / contaminant and NSTEMI Bcx POSITIVE WITH G+ Cocci s/p vancomycin Sputum Cx 05/25 with Pseudomonas. Colonizer and recent completion of 14 day treatment with Meropenem U cx 05/14 Proteus Mirabillis Meropenem 14 days completed Vancomycin stopped stopped Cefepime Dexamethasone 10 day course completed Leukocytosis improved. Monitor clinically for now and OFF antibiotics per ID COVID NEGATIVE x 2 05/25 and 05/26 ID Marketing Intelligence Analyst 06/04 recommends: - Repeat BCx 06/05 Pending - Start Zerbaxa for MDR PsA bacteremia, if worsening can try double coverage w/ colistin or polyB but overall slightly stable currently PENDING FINAL ID LADLE REPAIRMAN PLAN FOR DISCHARGE TO SUBACUTE LEVEL OF CARE. # Acute respiratory failure Intubated. Self extubated 05/27 and re intubated by ED MD successfully. ICU care appreciated Dr. Rock following Ventilator management per ICU-pulmonary FiO2 40 % today. T piece. Medically tracheostomy was needed and life saving procedure as she is not tolerating wean off. Overall, her quality of life will not improve from prior baseline with advanced dementia. Will need permanent ventilator support via tracheostomy and subacute level of care. Critical care attending, Surgery and GI attendings notified to plan PEG and TRACH as medically indicated and completed 06/02/20 # SVT vs A. Flutter s/p DC x 3 # NSTEMI HR is controlled in the 100 range and tolerating Digoxin Vasopressors in place Levophed at [address] Morillo requested and TTE requested and poor window. Troponin 3.4 now 0.7 EKG 05/17 NSR, stable. Inferior wall ischemia Repeat TTE is indicated to assess EF. # AG metabolic acidosis Ddx lactic acidosis Improved. # Hyperglycemia r/o DKA ABG and Ketones negative Endocrine consult with Dr. Shelley IV insulin gtt stopped and in SQ insulin coverage now # Hypernatremia resolved Improving Monitor BMP # COVID 19 Positive on admission, now NEGATIVE as of 05/25/20 On Dexamethasone completed 10 day course Contact and droplet isolation # Dysphagia PEG REMOVED 05/16 Carlo Vargas consulted NGT placed and Tube feeds started 05/18 and being tolerated at 45 cc hr Glucerna 1.2 # Severe protein caloric malnutrition with Albumin 1.5 RD follow up # Thrombocytopenia Platelets down from 80 K to 64 K to 66 K ( OFF Heparin ) and improved to normal range. 05/17 dc heparin, use SCD, order US Liver, HIT Ab, HIV negative Monitor carefully as Lovenox was restarted 06/03 for DVT # Newly detected lower extremity DVT HOLD off anticoagulation as tracheostomy and PEG done 06/[address] Garcia and agreed to start anticoagulation therapy for DVT Lovenox at 1 mg Kg SQ q 12 hr started 06/03 PM # Hypokalemia # Hypophosphatemia Replace as needed Monitor in AM # Anemia Etiology likely secondary to multiple blood draws vs RAULITO vs less likely GIB FOBT pending. iron studies SHOW IRON DEFICIENCY. ordered IV iron. Trend Hb and PRN PRBC if Hb less than 8, 1 unit given today. # Dementia Baseline # FULL CODE SW follow up to reach out to DPOA and consider change in code status due to high morbidity and risk of inpatient mortality. Paperwork completed for superior court of the [facility] for request of tracheostomy and gastrostomy placement due to medical need on 05/26/20 Bioethic consult requested and spoke with Dr. Hung from ethics and I agree with his assessment that the patient quality of life will NOT IMPROVE with tracheostomy and replacement of PEG. The patient is very limited due to her underlying dementia and now unable to wean off the ventilator. SHE HAD THE NEED TO GET A TRACHEOSTOMY and PEG was replaced 06/01/[address] Garcia DUE TO MEDICAL NECESSITY AND LIFE SAVING PROCEDURES. DR. ROCK AND I AGREED AND SIGNED [address] FORM. PEND[address] DECISION REGARDING CODE STATUS. DNR IS MEDICALLY INDICATED. > 50 min spent in coordination of care and consultation with physicians and RN. Jessica Wade MD Jun 06, 2020 16:19
--- NOTE | 2020-06-06 16:30 | NUR ---
NURSE NOTES: Patient received 1 unit of PRBC, no s/s transfusion reaction noted.
[2020-06-06] MEDS ORDERED: Tubing IV Secondary IV ONE (18:55)
[2020-06-06] MEDS ORDERED: NS 275ml ONE (18:55)
[2020-06-06] MEDS ORDERED: 1/2 NS 1000ml IV ONE (18:55)
--- NOTE | 2020-06-06 19:21 | NUR ---
NURSE HAND-OFF REPORT: Important Events on Shift: 1 unit PRBC given Patient Status: stable at this time, SB 56 Diet: Glucerna 1.2 @ 60ml/h Pending Orders: na Pending Results/Labs:na Pending notification:na Latest Vital Signs: Temperature 97.9 , Pulse 70 , B/P 104 /63 , Respiratory Rate 14 , O2 SAT 95 , Mechanical Ventilator, O2 Flow Rate 12.0 . Vital Sign Comment: stable EKG Rhythm: Sinus Rhythm Rhythm change?: N Notified?: Chucky Pierce MD Response: No New Orders Received Latest Garza Fall Score: 50 Fall Risk: High Risk Safety Measures: Call light Within Reach, Bed Alarm Zone 2, Side Rails Side Rails x3, Bed position Low and Locked. Fall Precautions: Yellow Socks Yellow Gown Door Sign Patient Fall Education Report given to SARA Hernandez.
--- NOTE | 2020-06-06 19:22 | NUR ---
"NURSE NOTES: Pt A/Ox0 upon assessment. PERRLA. Unable to make needs known. EKG shows sinus bradycardia 50 bpm upon assessment. On vent: A/C 12 | Vt 500 | 40% G-tube patent and intact running Glucerna 1.2 at 60 cc. Right IJ running 1/2 NS at 75 is patent. Arauz draining well to gravity. Made aware of alterations in skin integrity. Bed in lowest and locked position. Will continue monitoring."
[2020-06-06] MEDS: Dyna-Hex 2% Top Sol 2oz TOPIC SCH (20:19)
--- NOTE | 2020-06-06 21:03 | Surgery Progress Note ---
Surgery Progress Note Subjective Procedure Performed trach egd with peg Additional Comments no acute events Objective Last 24 Hour Vital Signs Date Time Temp Pulse Resp B/P (MAP) Pulse Ox O2 Delivery O2 Flow Rate FiO2 06/06/20 20:00 97.8 52 12 113/64 (80) 95 06/06/20 19:30 62 13 40 06/06/20 16:00 Mechanical Ventilator 06/06/20 16:00 70 06/06/20 16:00 97.9 65 14 104/63 (77) 95 06/06/20 16:00 40 06/06/20 15:24 68 16 50 06/06/20 12:00 98.6 68 12 106/65 (79) 95 06/06/20 12:00 40 06/06/20 12:00 70 06/06/20 12:00 Mechanical Ventilator 06/06/20 11:08 76 17 50 06/06/20 11:00 40 06/06/20 08:00 56 06/06/20 08:00 80 06/06/20 08:00 98.5 64 12 119/54 (75) 94 06/06/20 08:00 Mechanical Ventilator 06/06/20 07:00 59 13 50 06/06/20 05:30 67 15 116/52 (73) 97 06/06/20 05:00 59 14 106/42 (63) 100 06/06/20 04:00 98.5 66 14 102/45 (64) 98 06/06/20 04:00 80 06/06/20 04:00 Mechanical Ventilator 06/06/20 04:00 67 06/06/20 03:16 70 14 50 06/06/20 03:00 68 16 106/79 (88) 98 06/06/20 02:00 70 13 118/55 (76) 99 06/06/20 01:00 72 19 117/61 (79) 99 06/06/20 00:00 80 06/06/20 00:00 72 06/06/20 00:00 Mechanical Ventilator 06/06/20 00:00 98.9 69 15 142/74 (96) 100 06/05/20 23:02 80 14 50 06/05/20 23:00 71 19 110/55 (73) 98 06/05/20 22:00 68 14 109/49 (69) 100 I&O Intake and Output 06/05/20 06/06/20 19:00 07:00 Intake Total 2230.4167 ml 1545 ml Output Total 625 ml 1030 ml Balance 1605.4167 ml 515 ml Free Water 100 ml IV Total 1410.4167 ml 825 ml Tube Feeding 720 ml 720 ml Output Urine Total 625 ml 1030 ml Cardiovascular: RSR Respiratory: decreased breath sounds Abdomen: present bowel sounds Extremities: no tenderness, no cyanosis Laboratory Tests Test 06/05/20 23:59 06/06/20 03:45 06/06/20 05:19 POC Whole Blood Glucose 110 MG/DL (74-106) H Pending White Blood Count 7.0 K/UL (4.8-10.8) Red Blood Count 2.43 M/UL (4.20-5.40) L Hemoglobin 7.4 G/DL (12.0-16.0) L Hematocrit 22.0 % (37.0-47.0) L Mean Corpuscular Volume 91 FL (80-99) Mean Corpuscular Hemoglobin 30.3 PG (27.0-31.0) Mean Corpuscular Hemoglobin Concent 33.4 G/DL (32.0-36.0) Red Cell Distribution Width 14.0 % (11.6-14.8) Platelet Count 201 K/UL (150-450) Mean Platelet Volume 7.1 FL (6.5-10.1) Neutrophils (%) (Auto) % (45.0-75.0) Lymphocytes (%) (Auto) % (20.0-45.0) Monocytes (%) (Auto) % (1.0-10.0) Eosinophils (%) (Auto) % (0.0-3.0) Basophils (%) (Auto) % (0.0-2.0) Sodium Level 145 MMOL/L (136-145) Potassium Level 3.9 MMOL/L (3.5-5.1) Chloride Level 109 MMOL/L (98-107) H Carbon Dioxide Level 30 MMOL/L (21-32) Anion Gap 6 mmol/L (5-15) Blood Urea Nitrogen 21 mg/dL (7-18) H Creatinine 0.5 MG/DL (0.55-1.30) L Estimat Glomerular Filtration Rate > 60 mL/min (>60) Glucose Level 99 MG/DL (74-106) Calcium Level 8.6 MG/DL (8.5-10.1) Phosphorus Level 2.4 MG/DL (2.5-4.9) L Magnesium Level 1.8 MG/DL (1.8-2.4) Plan Problems: (1) Hypernatremia (2) Renal failure (3) Respiratory failure (4) Sepsis Assessment & Plan: COVID + leukocytosis anemia electrolytes abnormal on iv fluids renal input appreciated cxr noted abx as per ID will follow with recs Will likely need trach difficult weaning conservatorship working with case management social work to figure out goals of care s/p peg and trach improving much more comfortable Interim placement of orogastric tube, also documented on recent abdominal radiograph. Stable satisfactory position of endotracheal tube and right jugular central venous catheter. There is increased pleural fluid and likely left basilar consolidation/atelectasis. The right lung and pleural space remain clear. Impression: Increasing left pleural fluid and likely basilar consolidation/atelectasis. Interim orogastric intubation DAILY ESTIMATED NEEDS: Needs based on Pulmonary, DM, wounds 66.6kg 25-30 kcals/kg 7628-5881 total kcals 1.25-1.5 g protein/kg 83-100 g total protein 20-25 mL/kg 0148-9595 total fluid mLs NUTRITION DIAGNOSIS: Swallowing difficulty r/t dysphagia as evidenced by h/o CVA, pt is GT dep, currently ICU status, now intubated, off pressor support, GT feeds initiated. CURRENT TF:Glucerna 1.2 @45ml/hr ENTERAL NUTRITION RECOMMENDATIONS: As medically able: GLUCERNA 1.5 goal of 45ml/hr x24 hrs to provide 1080ml, 1620 kcal, 89g pro, 820ml free H2O -> as medically able without aspiration risk start Glucerna 1.5 @low rate 25ml/hr for 6 hrs. Advance as tolerated 10ml/hr q4-6 hrs to goal. - Flush per MD, HOB over 30 degrees. ---- If not hemodynamically stable, rec trophic feeds of 5-10ml/hr to maintain gut integrity. ADDITIONAL RECOMMENDATIONS: 1) Obtain an accurate calibrated bed scale wt 2) F/up w/ H&P 3) With active TF orders, add JASMYN BID for noted DTPI wounds 4) TF recs as above when off bipap and w/ hemodynamic stability -> Now intubated, off pressors, on GT feeds. he spleen size is normal. The gallbladder contains sludge. No stones. No wall thickening nor pericholecystic fluid. Common bile duct measures 4 mm in diameter. Small amount free fluid is seen adjacent to the liver and spleen Impression: Gallbladder sludge. Negative for dilated bile ducts Normal appearing liver and spleen Patient with respiratory failure intubated on support unable to wean safely. A tracheostomy in this case would be indicated and recommended. Patient is full code but conserved. Given her condition waiting a significant period of time is at high risk for her given the risk for extubation duration of tube and worsening with her ET tube. A trach would be functional manageable for her and recommended. Unfortunately waiting for the time. Would be advisable and discussed with the social workers field nurse case manager and medical teams. Soil Sort Worker as well. ICU team as well. We will proceed with tracheostomy in patient's best interest given her CODE STATUS and wishes and care plan. i have been asked by GI and medical teams to place PEG as well. after careful evaluation I agree with medical teams that patient would also benefit from feeding tube access. given her condition, Covid status, care plan, goals of care, will place peg at same time of trach to minimize exposure and OR time and limit procedure risks for patient. (5) Elevated d-dimer (6) COVID-19 Assessment & Plan: ++ (7) Pressure ulcer Assessment & Plan: Pt presented on admission with multiple Pressure injuries.DTPI noted to R Buttocks (L)3.8cm x (W)3.4cm. Base of wound is purpuric,fluctuant with surrounding maroon and indurated borders. DTPI Upper L Buttocks(L)5.5cm x (W)4cm. Base of wound is maroon and indurated. Borders are irregular. Non-Blanchable erythema without induration/fluctuance L lower buttocks(L)4cm x (W)7cm. R and L heels are soft but blanchable. Erosion noted at peristomal GT site. Site is erythematous and excoriated. Small amt. sanguineous exudate. Tx.Plan: Apply Moisture Barrier Paste to Sacrum, R and L Buttocks. Cover each area with Optifoam drsg. Change every 3 days and prn. Apply Moisture Barrier Paste to R and L Ischial tuberosities with each incont inence care. Apply Cavilon Skin Barrier to both heels. Cover each heel and malleoli with Optifoam drsg. Change every 7 days and prn. Reposition at least every 2hours or as tolerated. Off-load heels with pillow. APM/DARIN Mattress overlay. Apply Zinc Oxide Paste TID to GT site. Leave open to Air. (8) Dementia (9) CVA (cerebral vascular accident) (10) T2DM (type 2 diabetes mellitus) (11) Gastrostomy present (12) COVID-19 (13) Rapid atrial fibrillation Paul Garcia Jun 06, 2020 21:03
--- NOTE | 2020-06-06 22:51 | NUR ---
NURSE NOTES: Patient bradycardia upon rest to 49 bpm. In stable condition. Will continue monitoring.
[2020-06-07] VITALS: BP 97/48
[2020-06-07] MEDS: NS IV SCH ×3 (01:19→17:25)
[2020-06-07] MEDS: TAZOBACTAM IV SCH ×3 (01:19→17:25)
[2020-06-07] MEDS: CEFTOLOZANE IV SCH ×3 (01:19→17:25)
[2020-06-07 04:00] VITALS: BP 103/54
[2020-06-07 05:33] LABS: BASOPHILS % (AUTO) 1.4 % (0.0-2.0); EOSINOPHILS % (AUTO) 2.6 % (0.0-3.0); HEMATOCRIT 26.2 % (37.0-47.0); LYMPHOCYTES % (AUTO) 17.4 % (20.0-45.0); MEAN CORPUSCULAR VOLUME 90 FL (80-99); MONOCYTES % (AUTO) 7.6 % (1.0-10.0); PLATELET COUNT 218 K/UL (150-450); RED CELL DISTRIBUTION WIDTH 13.5 % (11.6-14.8); WHITE BLOOD COUNT 6.6 K/UL (4.8-10.8)
[2020-06-07 06:22] LABS: ANION GAP 6 mmol/L (5-15); BLOOD UREA NITROGEN 24 mg/dL (7-18); CALCIUM 8.8 MG/DL (8.5-10.1); CARBON DIOXIDE 28 MMOL/L (21-32); CHLORIDE 107 MMOL/L (98-107); CREATININE 0.5 MG/DL (0.55-1.30); PHOSPHORUS 1.9 MG/DL (2.5-4.9); POTASSIUM 3.9 MMOL/L (3.5-5.1); SODIUM 141 MMOL/L (136-145)
--- NOTE | 2020-06-07 07:01 | NUR ---
NURSE HAND-OFF REPORT: Important Events on Shift: Sinus Charles Patient Status: Stable Diet: Glucerna 1.2 Pending Orders: N Pending Results/Labs: N Pending MD notification: N Latest Vital Signs: Temperature 98.8 , Pulse 55 , B/P 103 /54 , Respiratory Rate 14 , O2 SAT 100 , Mechanical Ventilator, O2 Flow Rate 12.0 . Vital Sign Comment: EKG Rhythm: Sinus Rhythm Rhythm change?: N MD Notified?: Chucky Pierce MD Response: No New Orders Received Latest Garza Fall Score: 50 Fall Risk: High Risk Safety Measures: Call light Within Reach, Bed Alarm Zone 1, Side Rails Side Rails x3, Bed position Low and Locked. Fall Precautions: Yellow Socks Yellow Gown Door Sign Patient Fall Education Report given to SARA Rasmussen.
--- NOTE | 2020-06-07 07:31 | NUR ---
NURSE NOTES: Received report from SARA Hernandez. Patient in bed resting, no active s/s cardiac, respiratory distress noticed at this time. Patient Obtunded, SB with HR 57, Trach to vent Shiley 8 AC 12 TV 500 Fio2 40%. GT feeding on Glucerna 1.2 @ 60ml/h. Arauz Catheter draining well to gravity at this time. Right IJ TLC patent, intact. IVF 1/2NS running as prescribed rate @ 75ml/h. Bed in lowest position, side rails upx3, call light within reach, bed alarm on, Will continue to monitor.
--- NOTE | 2020-06-07 07:48 | Pulmonology Progress Note ---
Subjective ROS Limited/Unobtainable: Yes Allergies: Coded Allergies: DIVALPROEX SODIUM (Verified Allergy, Unknown, 05/14/20) PENICILLINS (Verified Allergy, Unknown, 05/14/20) All Systems: reviewed and negative except above Subjective out of ICU Objective Last 24 Hour Vital Signs Date Time Temp Pulse Resp B/P (MAP) Pulse Ox O2 Delivery O2 Flow Rate FiO2 06/07/20 04:00 98.8 55 14 103/54 (70) 100 06/07/20 04:00 Mechanical Ventilator 06/07/20 04:00 40 06/07/20 03:26 62 06/07/20 03:20 59 16 40 06/07/20 00:00 97.6 54 12 97/48 (64) 100 06/07/20 00:00 Mechanical Ventilator 06/06/20 23:29 58 06/06/20 22:54 51 13 40 06/06/20 20:00 97.8 52 12 113/64 (80) 95 06/06/20 20:00 40 06/06/20 20:00 Mechanical Ventilator 06/06/20 20:00 58 06/06/20 19:30 62 13 40 06/06/20 16:00 Mechanical Ventilator 06/06/20 16:00 70 06/06/20 16:00 97.9 65 14 104/63 (77) 95 06/06/20 16:00 40 06/06/20 15:24 68 16 50 06/06/20 12:00 98.6 68 12 106/65 (79) 95 06/06/20 12:00 40 06/06/20 12:00 70 06/06/20 12:00 Mechanical Ventilator 06/06/20 11:08 76 17 50 06/06/20 11:00 40 06/06/20 08:00 56 06/06/20 08:00 80 06/06/20 08:00 98.5 64 12 119/54 (75) 94 06/06/20 08:00 Mechanical Ventilator Intake and Output 06/06/20 06/07/20 19:00 07:00 Intake Total 1920 ml 1575 ml Output Total 1000 ml Balance 920 ml 1575 ml Free Water 90 ml 40 ml IV Total 860 ml 935 ml Tube Feeding 720 ml 600 ml Blood Product 250 ml Output Urine Total 1000 ml # Bowel Movements 3 General Appearance: no acute distress HEENT: normocephalic, status post trach Respiratory: chest wall non-tender, lungs clear, other - trach in place Cardiovascular: normal peripheral pulses, normal rate, regular rhythm Abdomen: normal bowel sounds, soft, non tender, non distended, other - GT Extremities: no cyanosis, no clubbing, no edema Neurologic: unresponsiveness Microbiology Date/Time Source Procedure Growth Status 06/04/20 09:15 Blood Blood Culture - Preliminary Pseudomonas Aeruginosa - Mdr Resulted Laboratory Tests 06/07/20 03:35: White Blood Count 6.6, Red Blood Count 2.90L, Hemoglobin 9.0L, Hematocrit 26.2L, Mean Corpuscular Volume 90, Mean Corpuscular Hemoglobin 30.9, Mean Corpuscular Hemoglobin Concent 34.2, Red Cell Distribution Width 13.5, Platelet Count 218, Mean Platelet Volume 7.2, Neutrophils (%) (Auto) 71.0, Lymphocytes (%) (Auto) 17.4L, Monocytes (%) (Auto) 7.6, Eosinophils (%) (Auto) 2.6, Basophils (%) (Auto) 1.4, Sodium Level 141, Potassium Level 3.9, Chloride Level 107, Carbon Dioxide Level 28, Anion Gap 6, Blood Urea Nitrogen 24H, Creatinine 0.5L, Estimat Glomerular Filtration Rate > 60, Glucose Level 100, Calcium Level 8.8, Phosphorus Level 1.9L, Magnesium Level 1.8 Current Medications Medications (Trade) Dose Ordered Sig/Morgan Route PRN Reason Start Time Stop Time Status Last Admin Dose Admin Acetaminophen (Tylenol) 650 mg Q4H PRN GT Temp >100.5 05/16/20 06:15 06/15/20 06:14 05/31/20 13:15 Acetaminophen (Tylenol) 650 mg Q4H PRN RECTAL Temp >100.5 05/16/20 19:45 06/15/20 19:44 05/17/20 18:30 Atropine Sulfate (Atropine 0.4mg/ ml) 0.4 mg Q2HR PRN IVP HR <45 05/29/20 21:30 06/28/20 19:24 05/30/20 22:39 Ceftolozane/ Tazobactam 1.5 gm/ Sodium Chloride 110 ml @ 110 mls/hr Q8H IV 06/06/20 10:00 06/11/20 23:59 06/07/20 01:19 Chlorhexidine Gluconate (Lilliam-Hex 2%) 1 applic DAILY@1999 TOPIC 05/15/20 20:00 08/13/20 19:59 06/06/20 20:19 Enoxaparin Sodium (Lovenox) 60 mg EVERY 12 HOURS SUBQ 06/03/20 21:00 09/01/20 20:59 06/06/20 20:19 Fludrocortisone Acetate (Florinef) 0.1 mg DAILY ORAL 06/05/20 09:00 07/05/20 08:59 06/06/20 09:12 Pantoprazole (Protonix) 40 mg DAILY IV 05/15/20 09:00 06/14/20 08:59 06/06/20 09:12 Sodium Chloride 1,000 ml @ 75 mls/hr [id number] IV 05/15/20 06:45 06/14/20 06:44 06/07/20 03:00 Zinc Oxide (Zinc Oxide) 1 applic TIDPRN PRN TOPIC Abdominal cramps 05/20/20 13:00 08/18/20 12:59 Assessment/Plan Assessment/Plan IMPRESSION: 1. Acute respiratory failure. 2. Diabetes mellitus with hyperglycemia. 3. Septic shock. 4. Chronic G-tube. 5. Decubitus. 6. History of CHF. 7. Tracheostomy 8. severe PCM 9. pleural effusions 10. atelectasis DISCUSSION: monitor vent setting and adjust Continue fluids and antibiotics. off pressors S/p trach- monitor care wean as able On 40% FiO2 DVT and GI prophylaxis. nutrition and protein replacement Respiratory precautions impression, plan, and exam edited and reviewed in detail care discussed with Hung Kelly MD Jun 07, 2020 07:48
[2020-06-07 08:00] VITALS: BP 102/54
[2020-06-07] MEDS: Pantoprazole Inj IV SCH (08:11)
[2020-06-07] MEDS: Enoxaparin 60mg Inj SUBQ SCH ×2 (08:13→20:49)
--- NOTE | 2020-06-07 10:28 | General Progress Note ---
Subjective ROS Limited/Unobtainable: No Allergies: Coded Allergies: DIVALPROEX SODIUM (Verified Allergy, Unknown, 05/14/20) PENICILLINS (Verified Allergy, Unknown, 05/14/20) Objective Last 24 Hour Vital Signs Date Time Temp Pulse Resp B/P (MAP) Pulse Ox O2 Delivery O2 Flow Rate FiO2 06/07/20 08:00 57 06/07/20 08:00 98.2 59 15 102/54 (70) 100 06/07/20 08:00 Mechanical Ventilator 06/07/20 08:00 40 06/07/20 07:20 56 12 40 06/07/20 04:00 98.8 55 14 103/54 (70) 100 06/07/20 04:00 Mechanical Ventilator 06/07/20 04:00 40 06/07/20 03:26 62 06/07/20 03:20 59 16 40 06/07/20 00:00 97.6 54 12 97/48 (64) 100 06/07/20 00:00 Mechanical Ventilator 06/06/20 23:29 58 06/06/20 22:54 51 13 40 06/06/20 20:00 97.8 52 12 113/64 (80) 95 06/06/20 20:00 40 06/06/20 20:00 Mechanical Ventilator 06/06/20 20:00 58 06/06/20 19:30 62 13 40 06/06/20 16:00 Mechanical Ventilator 06/06/20 16:00 70 06/06/20 16:00 97.9 65 14 104/63 (77) 95 06/06/20 16:00 40 06/06/20 15:24 68 16 50 06/06/20 12:00 98.6 68 12 106/65 (79) 95 06/06/20 12:00 40 06/06/20 12:00 70 06/06/20 12:00 Mechanical Ventilator 06/06/20 11:08 76 17 50 06/06/20 11:00 40 Intake and Output 06/06/20 06/07/20 18:59 06:59 Intake Total 1920 ml 1710 ml Output Total 1050 ml Balance 870 ml 1710 ml Free Water 90 ml 40 ml IV Total 860 ml 1010 ml Tube Feeding 720 ml 660 ml Blood Product 250 ml Output Urine Total 1050 ml # Bowel Movements 3 Laboratory Tests 06/07/20 03:35: White Blood Count 6.6, Red Blood Count 2.90L, Hemoglobin 9.0L, Hematocrit 26.2L, Mean Corpuscular Volume 90, Mean Corpuscular Hemoglobin 30.9, Mean Corpuscular Hemoglobin Concent 34.2, Red Cell Distribution Width 13.5, Platelet Count 218, Mean Platelet Volume 7.2, Neutrophils (%) (Auto) 71.0, Lymphocytes (%) (Auto) 17.4L, Monocytes (%) (Auto) 7.6, Eosinophils (%) (Auto) 2.6, Basophils (%) (Auto) 1.4, Sodium Level 141, Potassium Level 3.9, Chloride Level 107, Carbon Dioxide Level 28, Anion Gap 6, Blood Urea Nitrogen 24H, Creatinine 0.5L, Estimat Glomerular Filtration Rate > 60, Glucose Level 100, Calcium Level 8.8, Phosphorus Level 1.9L, Magnesium Level 1.8 Height (Feet): 5 Height (Inches): 5.00 Weight (Pounds): 142 General Appearance: no apparent distress EENT: normal ENT inspection Neck: supple Cardiovascular: normal rate Respiratory/Chest: decreased breath sounds Abdomen: normal bowel sounds, non tender, soft Extremities: non-tender Assessment/Plan Status: stable Assessment/Plan: 1. History of CVA. 2. Dementia. 3. Dysphagia with G-tube. 4. Cachexia. 5. Diabetes. 6. Pressure ulcers. 7. Hypothyroidism. 8. Legal blindness. 9. Currently COVID positive. s/p peg and trach GTF monitor for residuals fu labs supportive care Jhon Matos MD Jun 07, 2020 10:28
--- NOTE | 2020-06-07 10:30 | NUR ---
NURSE NOTES: Dr. Matos made aware patient no BM for 3 days. Order entered, noted, and carried out.
--- NOTE | 2020-06-07 10:32 | NUR ---
NURSE NOTES: Dr. Wade made aware patient Phosphorus today 1.9, K 3.9 today. Per MD Potassium phos 20mmol IV once, order entered, and carried out.
--- NOTE | 2020-06-07 11:06 | Infectious Diseases Prog Note ---
Assessment/Plan 70 yo female with PMHx of Dementia, DM, CVA ( S/P PEG), COVID 19 infection and pressure ulcers. Septic Shock-combination cardiogenic and septic; -back on pressors, decreasing Gram positive bacteremia- contaminant; recurrent -05/14 Bcx 1/ S. haemolyticus; 05/17 Bcx Neg -05/31 Bcx 1/2 P.a -06/01 Bcx Neg -06/04 Bcx GNR -06/06 BCx - Pend UTI, sp rx UA (+); ucx 10-20k P. mirabilis (S Ceftriaxone, Cefepime) PNA, superimposed bacterial, sp rx Recent COVID19 pna- now repeat neg x2 -05/27 CXR: Previously seen left lung atelectasis has nearly completely resolved. Retrocardiac atelectasis without or with some component of cons olidation. Low lung volumes with bronchovascular crowding. -05/26 CXR: Complete opacification of the left hemithorax with mediastinal shift to the left likely due to complete atelectasis of the left lung perhaps from mucous plugging. rapid COVID PCR neg -05/25 sp cx MDR PsA (I Ceftazidime, Colistin, Polymixin B); suspect colonizer SARS-COV2 neg -05/24 SARS-COV2 pCR inconclusive -05/23 CXR: Worsening aeration with increasing hazy opacification of the left lung base which may related to increased layering pleural effusion and adjacent atelectasis/consolidation. -05/19 CXR: Increasing left pleural fluid and likely basilar consolidation/atelectasis. Interim orogastric intubation 05/16 CXR: Retrocardiac density may represent atelectasis versus infiltrate. CXR 05/14/20 showed Retrocardiac atelectasis/infiltrate with Pulmonary venous congestion. sp cx MDR E.coli (S Cefepime, Meropenem, Zosyn) Hx of COVID 19 - Bacteria secondary infection? Asp PNA? COVID 19 tested Pos [facility] - about 3 week [facility]ALTH NURSE -still positive Rapid COVID PCR 05/14 Resp Fail Intuabted on Vent Leukocytosis; increased (sp steroids)- SP Fever; low grade ,recurrent -06/01 u/a wbc 10-15, nit neg, leuk +1 L femoral DVT EMA, SP SVT -sp cardioversion Hyperglycemia Elevated LFTs; resolving -Abd US: Gallbladder sludge. Negative for dilated bile ducts. Normal appearing liver and spleen. Trace ascites sp trach/peg 06/01 Dementia DM Hx CVA ( S/P PEG) pressure ulcers PLAN - Continue Zerbaxa #3 for MDR PsA bacteremia, if worsening can try double coverage w/ colistin or polyB but overall slightly stable currently - Repeat Blood Cx Pending - May need to remove RIJ The lab is working on Zerbaxa and Avycaz Sensi - 06/03/20 SP Meropenem #2 - 06/02/20 SP Vancomycin #2 - 05/27 SP Meropenem #11 - 05/24 SP Decadron #11 - 05/19 SP IV Vancomcyin #6 - 05/17 SP Cefepime #4 - f/u Cultures - Monitor CBC and Temps -repeat covid neg x2 -f/u repeat cultures Thank you for consulting [facility]. Will continue to follow along with you. Discussed with RN and Pharmacy staff Subjective Allergies: Coded Allergies: DIVALPROEX SODIUM (Verified Allergy, Unknown, 05/14/20) PENICILLINS (Verified Allergy, Unknown, 05/14/20) Afebrile No Leukocytosis On vent 40% Waiting for blood repeat Blood Cx - One from RIJ Objective Last 24 Hour Vital Signs Date Time Temp Pulse Resp B/P (MAP) Pulse Ox O2 Delivery O2 Flow Rate FiO2 06/07/20 08:00 57 06/07/20 08:00 98.2 59 15 102/54 (70) 100 06/07/20 08:00 Mechanical Ventilator 06/07/20 08:00 40 06/07/20 07:20 56 12 40 06/07/20 04:00 98.8 55 14 103/54 (70) 100 06/07/20 04:00 Mechanical Ventilator 06/07/20 04:00 40 06/07/20 03:26 62 06/07/20 03:20 59 16 40 06/07/20 00:00 97.6 54 12 97/48 (64) 100 06/07/20 00:00 Mechanical Ventilator 06/06/20 23:29 58 06/06/20 22:54 51 13 40 06/06/20 20:00 97.8 52 12 113/64 (80) 95 06/06/20 20:00 40 06/06/20 20:00 Mechanical Ventilator 06/06/20 20:00 58 06/06/20 19:30 62 13 40 06/06/20 16:00 Mechanical Ventilator 06/06/20 16:00 70 06/06/20 16:00 97.9 65 14 104/63 (77) 95 06/06/20 16:00 40 06/06/20 15:24 68 16 50 06/06/20 12:00 98.6 68 12 106/65 (79) 95 06/06/20 12:00 40 06/06/20 12:00 70 06/06/20 12:00 Mechanical Ventilator 06/06/20 11:08 76 17 50 Height (Feet): 5 Height (Inches): 5.00 Weight (Pounds): 142 GEN: On Vent 40% O2 HEENT: NCAT, MMM, Intubated, Right IJ Pulm: Equal rise and fall B/L ABD: Soft, ND, PEG (No e/p) Neuro: Not following SKIN: Exposed skin with no rash, Normal in color Laboratory Tests Test 06/07/20 03:35 White Blood Count 6.6 K/UL (4.8-10.8) Red Blood Count 2.90 M/UL (4.20-5.40) L Hemoglobin 9.0 G/DL (12.0-16.0) L Hematocrit 26.2 % (37.0-47.0) L Mean Corpuscular Volume 90 FL (80-99) Mean Corpuscular Hemoglobin 30.9 PG (27.0-31.0) Mean Corpuscular Hemoglobin Concent 34.2 G/DL (32.0-36.0) Red Cell Distribution Width 13.5 % (11.6-14.8) Platelet Count 218 K/UL (150-450) Mean Platelet Volume 7.2 FL (6.5-10.1) Neutrophils (%) (Auto) 71.0 % (45.0-75.0) Lymphocytes (%) (Auto) 17.4 % (20.0-45.0) L Monocytes (%) (Auto) 7.6 % (1.0-10.0) Eosinophils (%) (Auto) 2.6 % (0.0-3.0) Basophils (%) (Auto) 1.4 % (0.0-2.0) Sodium Level 141 MMOL/L (136-145) Potassium Level 3.9 MMOL/L (3.5-5.1) Chloride Level 107 MMOL/L (98-107) Carbon Dioxide Level 28 MMOL/L (21-32) Anion Gap 6 mmol/L (5-15) Blood Urea Nitrogen 24 mg/dL (7-18) H Creatinine 0.5 MG/DL (0.55-1.30) L Estimat Glomerular Filtration Rate > 60 mL/min (>60) Glucose Level 100 MG/DL (74-106) Calcium Level 8.8 MG/DL (8.5-10.1) Phosphorus Level 1.9 MG/DL (2.5-4.9) L Magnesium Level 1.8 MG/DL (1.8-2.4) Current Medications Medications (Trade) Dose Ordered Sig/Morgan Route PRN Reason Start Time Stop Time Status Last Admin Dose Admin Acetaminophen (Tylenol) 650 mg Q4H PRN GT Temp >100.5 05/16/20 06:15 06/15/20 06:14 05/31/20 13:15 Acetaminophen (Tylenol) 650 mg Q4H PRN RECTAL Temp >100.5 05/16/20 19:45 06/15/20 19:44 05/17/20 18:30 Atropine Sulfate (Atropine 0.4mg/ ml) 0.4 mg Q2HR PRN IVP HR <45 05/29/20 21:30 06/28/20 19:24 05/30/20 22:39 Bisacodyl (Dulcolax) 10 mg ONCE RECTAL 06/07/20 11:00 06/07/20 13:00 Ceftolozane/ Tazobactam 1.5 gm/ Sodium Chloride 110 ml @ 110 mls/hr Q8H IV 06/06/20 10:00 06/11/20 23:59 06/07/20 10:16 Chlorhexidine Gluconate (Lilliam-Hex 2%) 1 applic DAILY@2000 TOPIC 05/15/20 20:00 08/13/20 19:59 06/06/20 20:19 Docusate Sodium (Colace) 100 mg TWICE A DAY GT 06/07/20 18:00 07/07/20 17:59 Enoxaparin Sodium (Lovenox) 60 mg EVERY 12 HOURS SUBQ 06/03/20 21:00 09/01/20 20:59 06/07/20 08:13 Fludrocortisone Acetate (Florinef) 0.1 mg DAILY ORAL 06/05/20 09:00 07/05/20 08:59 06/07/20 08:11 Pantoprazole (Protonix) 40 mg DAILY IV 05/15/20 09:00 06/14/20 08:59 06/07/20 08:11 Polyethylene Glycol (Miralax) 17 gm BEDTIME GT 06/07/20 21:00 07/07/20 20:59 Potassium Phosphate 20 mm/ Sodium Chloride 281.6667 ml @ 46.944 m... ONCE ONCE IV 06/07/20 13:00 06/07/20 18:59 Sodium Chloride 1,000 ml @ 75 mls/hr [id number] IV 05/15/20 06:45 06/14/20 06:44 06/07/20 03:00 Zinc Oxide (Zinc Oxide) 1 applic TIDPRN PRN TOPIC Abdominal cramps 05/20/20 13:00 08/18/20 12:59 Erasto Romeo MD Jun 07, 2020 11:06
[2020-06-07 12:00] VITALS: BP 103/54
--- NOTE | 2020-06-07 12:00 | NUR ---
NURSE NOTES: Dr. Morillo at the bedside, made aware of lowest HR last night 47, now 50s , SBP 90-100s, no new order received at this time, Will continue to monitor.
--- NOTE | 2020-06-07 12:14 | Cardiac Electrophysiology PN ---
Assessment/Plan Assessment/Plan 1. [id number] myocardial infarction with peak troponin of 3.4 and down to 0.7 EKG shows Inferolateral ischemia Due to septic shock, DCCV and Renal failure. Echo had poor windows. 2. PAF with RVR. S/P DCCV 3 times No more fib or accelerated junctional rhythm. Off beta-ramakrishna or calcium-channel ramakrishna as the patient is still on Dopamine 3. S/P Septic shock. On antibiotic. Off Midodrine in view of bradycardia and on Florinef 0.1 mg daily 4. Bradycardia requiring Atropine x 3 on 05/30/20. Off Dopamine 5. Severe hypernatremia with sodium of 174, BUN of 131, creatinine 2.7 due to dehydration. Improved. Cr 0.5 now 6. Dysphagia, status post PEG replacement per Dr Matos 7. History of CVA and dementia. 8. Respiratory failure, S/P Tracheostomy by Dr. Garcia 06/01/20 KIMMY RN Subjective Subjective In SDU from ICU in with no atrial fib but had bradycardia and received atropine 3 times on 05/31/20 S/P Trach and PEG on 06/02/20. ECG 06/02/20 showed inferolateral ischemia On 80% Fio2. 3rd Covid is negative. DCed isolation On 40% Fio2 and AC 12 Objective Last 24 Hour Vital Signs Date Time Temp Pulse Resp B/P (MAP) Pulse Ox O2 Delivery O2 Flow Rate FiO2 06/07/20 11:13 50 12 40 06/07/20 09:50 97 06/07/20 08:00 57 06/07/20 08:00 98.2 59 15 102/54 (70) 100 06/07/20 08:00 Mechanical Ventilator 06/07/20 08:00 40 06/07/20 07:20 56 12 40 06/07/20 04:00 98.8 55 14 103/54 (70) 100 06/07/20 04:00 Mechanical Ventilator 06/07/20 04:00 40 06/07/20 03:26 62 06/07/20 03:20 59 16 40 06/07/20 00:00 97.6 54 12 97/48 (64) 100 06/07/20 00:00 Mechanical Ventilator 06/06/20 23:29 58 06/06/20 22:54 51 13 40 9/28/20 20:00 97.8 52 12 113/64 (80) 95 06/06/20 20:00 40 06/06/20 20:00 Mechanical Ventilator 06/06/20 20:00 58 06/06/20 19:30 62 13 40 06/06/20 16:00 Mechanical Ventilator 06/06/20 16:00 70 06/06/20 16:00 97.9 65 14 104/63 (77) 95 06/06/20 16:00 40 06/06/20 15:24 68 16 50 Intake and Output 06/06/20 06/07/20 18:59 06:59 Intake Total 1920 ml 1710 ml Output Total 1050 ml Balance 870 ml 1710 ml Free Water 90 ml 40 ml IV Total 860 ml 1010 ml Tube Feeding 720 ml 660 ml Blood Product 250 ml Output Urine Total 1050 ml # Bowel Movements 3 Laboratory Tests Test 06/07/20 03:35 White Blood Count 6.6 K/UL (4.8-10.8) Red Blood Count 2.90 M/UL (4.20-5.40) L Hemoglobin 9.0 G/DL (12.0-16.0) L Hematocrit 26.2 % (37.0-47.0) L Mean Corpuscular Volume 90 FL (80-99) Mean Corpuscular Hemoglobin 30.9 PG (27.0-31.0) Mean Corpuscular Hemoglobin Concent 34.2 G/DL (32.0-36.0) Red Cell Distribution Width 13.5 % (11.6-14.8) Platelet Count 218 K/UL (150-450) Mean Platelet Volume 7.2 FL (6.5-10.1) Neutrophils (%) (Auto) 71.0 % (45.0-75.0) Lymphocytes (%) (Auto) 17.4 % (20.0-45.0) L Monocytes (%) (Auto) 7.6 % (1.0-10.0) Eosinophils (%) (Auto) 2.6 % (0.0-3.0) Basophils (%) (Auto) 1.4 % (0.0-2.0) Sodium Level 141 MMOL/L (136-145) Potassium Level 3.9 MMOL/L (3.5-5.1) Chloride Level 107 MMOL/L (98-107) Carbon Dioxide Level 28 MMOL/L (21-32) Anion Gap 6 mmol/L (5-15) Blood Urea Nitrogen 24 mg/dL (7-18) H Creatinine 0.5 MG/DL (0.55-1.30) L Estimat Glomerular Filtration Rate > 60 mL/min (>60) Glucose Level 100 MG/DL (74-106) Calcium Level 8.8 MG/DL (8.5-10.1) Phosphorus Level 1.9 MG/DL (2.5-4.9) L Magnesium Level 1.8 MG/DL (1.8-2.4) Objective HEAD AND NECK: No JVD. Tracheostomy in place. LUNGS: Coarse rhonchi. CARDIOVASCULAR: Regular S1 and S2 with no gallop. ABDOMEN: Soft. G-tube site in place EXTREMITIES: No pitting edema. Norman Morillo MD Jun 07, 2020 12:14
--- NOTE | 2020-06-07 12:43 | Surgery Progress Note ---
Surgery Progress Note Subjective Procedure Performed trach egd with peg Symptoms: improved, tolerating diet, passing flatus, BM Objective Last 24 Hour Vital Signs Date Time Temp Pulse Resp B/P (MAP) Pulse Ox O2 Delivery O2 Flow Rate FiO2 06/07/20 12:00 97.9 76 12 103/54 (70) 97 06/07/20 12:00 40 06/07/20 12:00 Mechanical Ventilator 06/07/20 11:13 50 12 40 06/07/20 09:50 97 06/07/20 08:00 57 06/07/20 08:00 98.2 59 15 102/54 (70) 100 06/07/20 08:00 Mechanical Ventilator 06/07/20 08:00 40 06/07/20 07:20 56 12 40 06/07/20 04:00 98.8 55 14 103/54 (70) 100 06/07/20 04:00 Mechanical Ventilator 06/07/20 04:00 40 06/07/20 03:26 62 06/07/20 03:20 59 16 40 06/07/20 00:00 97.6 54 12 97/48 (64) 100 06/07/20 00:00 Mechanical Ventilator 06/06/20 23:29 58 06/06/20 22:54 51 13 40 06/06/20 20:00 97.8 52 12 113/64 (80) 95 06/06/20 20:00 40 06/06/20 20:00 Mechanical Ventilator 06/06/20 20:00 58 06/06/20 19:30 62 13 40 06/06/20 16:00 Mechanical Ventilator 06/06/20 16:00 70 06/06/20 16:00 97.9 65 14 104/63 (77) 95 06/06/20 16:00 40 06/06/20 15:24 68 16 50 I&O Intake and Output 06/06/20 06/07/20 18:59 06:59 Intake Total 1920 ml 1710 ml Output Total 1050 ml Balance 870 ml 1710 ml Free Water 90 ml 40 ml IV Total 860 ml 1010 ml Tube Feeding 720 ml 660 ml Blood Product 250 ml Output Urine Total 1050 ml # Bowel Movements 3 Dressing: dry Wound: clean Cardiovascular: RSR Respiratory: clear, decreased breath sounds Abdomen: non-tender, present bowel sounds Extremities: no edema, no tenderness, no cyanosis Laboratory Tests Test 06/07/20 03:35 White Blood Count 6.6 K/UL (4.8-10.8) Red Blood Count 2.90 M/UL (4.20-5.40) L Hemoglobin 9.0 G/DL (12.0-16.0) L Hematocrit 26.2 % (37.0-47.0) L Mean Corpuscular Volume 90 FL (80-99) Mean Corpuscular Hemoglobin 30.9 PG (27.0-31.0) Mean Corpuscular Hemoglobin Concent 34.2 G/DL (32.0-36.0) Red Cell Distribution Width 13.5 % (11.6-14.8) Platelet Count 218 K/UL (150-450) Mean Platelet Volume 7.2 FL (6.5-10.1) Neutrophils (%) (Auto) 71.0 % (45.0-75.0) Lymphocytes (%) (Auto) 17.4 % (20.0-45.0) L Monocytes (%) (Auto) 7.6 % (1.0-10.0) Eosinophils (%) (Auto) 2.6 % (0.0-3.0) Basophils (%) (Auto) 1.4 % (0.0-2.0) Sodium Level 141 MMOL/L (136-145) Potassium Level 3.9 MMOL/L (3.5-5.1) Chloride Level 107 MMOL/L (98-107) Carbon Dioxide Level 28 MMOL/L (21-32) Anion Gap 6 mmol/L (5-15) Blood Urea Nitrogen 24 mg/dL (7-18) H Creatinine 0.5 MG/DL (0.55-1.30) L Estimat Glomerular Filtration Rate > 60 mL/min (>60) Glucose Level 100 MG/DL (74-106) Calcium Level 8.8 MG/DL (8.5-10.1) Phosphorus Level 1.9 MG/DL (2.5-4.9) L Magnesium Level 1.8 MG/DL (1.8-2.4) Plan Problems: (1) Hypernatremia (2) Renal failure (3) Respiratory failure (4) Sepsis Assessment & Plan: COVID + leukocytosis anemia electrolytes abnormal on iv fluids renal input appreciated cxr noted abx as per ID will follow with recs Will likely need trach difficult weaning conservatorship working with case management social work to figure out goals of care s/p peg and trach improving much more comfortable Interim placement of orogastric tube, also documented on recent abdominal radiograph. Stable satisfactory position of endotracheal tube and right jugular central venous catheter. There is increased pleural fluid and likely left basilar consolidation/atelectasis. The right lung and pleural space remain clear. Impression: Increasing left pleural fluid and likely basilar consolidation/atelectasis. Interim orogastric intubation DAILY ESTIMATED NEEDS: Needs based on Pulmonary, DM, wounds 66.6kg 25-30 kcals/kg [id number] total kcals 1.25-1.5 g protein/kg 83-100 g total protein 20-25 mL/kg 2933-1448 total fluid mLs NUTRITION DIAGNOSIS: Swallowing difficulty r/t dysphagia as evidenced by h/o CVA, pt is GT dep, currently ICU status, now intubated, off pressor support, GT feeds initiated. CURRENT TF:Glucerna 1.2 @45ml/hr ENTERAL NUTRITION RECOMMENDATIONS: As medically able: GLUCERNA 1.5 goal of 45ml/hr x24 hrs to provide 1080ml, 1620 kcal, 89g pro, 820ml free H2O -> as medically able without aspiration risk start Glucerna 1.5 @low rate 25ml/hr for 6 hrs. Advance as tolerated 10ml/hr q4-6 hrs to goal. - Flush per MD, HOB over 30 degrees. ---- If not hemodynamically stable, rec trophic feeds of 5-10ml/hr to maintain gut integrity. ADDITIONAL RECOMMENDATIONS: 1) Obtain an accurate calibrated bed scale wt 2) F/up w/ H&P 3) With active TF orders, add JASMYN BID for noted DTPI wounds 4) TF recs as above when off bipap and w/ hemodynamic stability -> Now intubated, off pressors, on GT feeds. he spleen size is normal. The gallbladder contains sludge. No stones. No wall thickening nor pericholecystic fluid. Common bile duct measures 4 mm in diameter. Small amount free fluid is seen adjacent to the liver and spleen Impression: Gallbladder sludge. Negative for dilated bile ducts Normal appearing liver and spleen Patient with respiratory failure intubated on support unable to wean safely. A tracheostomy in this case would be indicated and recommended. Patient is full code but conserved. Given her condition waiting a significant period of time is at high risk for her given the risk for extubation duration of tube and worsen ing with her ET tube. A trach would be functional manageable for her and recommended. Unfortunately waiting for the time. Would be advisable and discussed with the social workers mental health case manager and medical teams. Rejector as well. ICU team as well. We will proceed with tracheostomy in patient's best interest given her CODE STATUS and wishes and care plan. i have been asked by GI and medical teams to place PEG as well. after careful evaluation I agree with medical teams that patient would also benefit from feeding tube access. given her condition, Covid status, care plan, goals of care, will place peg at same time of trach to minimize exposure and OR time and limit procedure risks for patient. (5) Elevated d-dimer (6) COVID-19 Assessment & Plan: ++ (7) Pressure ulcer Assessment & Plan: Pt presented on admission with multiple Pressure injuries.DTPI noted to R Buttocks (L)3.8cm x (W)3.4cm. Base of wound is pur puric,fluctuant with surrounding maroon and indurated borders. DTPI Upper L Buttocks(L)5.5cm x (W)4cm. Base of wound is maroon and indurated. Borders are irregular. Non-Blanchable erythema without induration/fluctuance L lower buttocks(L)4cm x (W)7cm. R and L heels are soft but blanchable. Erosion noted at peristomal GT site. Site is erythematous and excoriated. Small amt. sanguineous exudate. Tx.Plan: Apply Moisture Barrier Paste to Sacrum, R and L Buttocks. Cover each area with Optifoam drsg. Change every 3 days and prn. Apply Moisture Barrier Paste to R and L Ischial tuberosities with each incontinence care. Apply Cavilon Skin Barrier to both heels. Cover each heel and malleoli with Optifoam drsg. Change every 7 days and prn. Reposition at least every 2hours or as tolerated. Off-load heels with pillow. APM/DARIN Mattress overlay. Apply Zinc Oxide Paste TID to GT site. Leave open to Air. (8) Dementia (9) CVA (cerebral vascular accident) (10) T2DM (type 2 diabetes mellitus) (11) Gastrostomy present (12) COVID-19 (13) Rapid atrial fibrillation Paul Garcia Jun 07, 2020 12:43
[2020-06-07] MEDS ORDERED: Potassium Phosphate 20 MM in NS 275 ML IV ONE (13:00)
--- NOTE | 2020-06-07 13:24 | General Progress Note ---
Subjective Date patient seen: Jun 07, 2020 Time patient seen: 13:00 ROS Limited/Unobtainable: Yes Allergies: Coded Allergies: DIVALPROEX SODIUM (Verified Allergy, Unknown, 05/14/20) PENICILLINS (Verified Allergy, Unknown, 05/14/20) All Systems: reviewed and negative except above Subjective Non verbal, tacheostomy and PEG in place, she is noted to be grimacing. SHE IS OFF DOPAMINE since 06/04 Transferred to [facility] 06/05 Objective Last 24 Hour Vital Signs Date Time Temp Pulse Resp B/P (MAP) Pulse Ox O2 Delivery O2 Flow Rate FiO2 06/07/20 12:00 97.9 76 12 103/54 (70) 97 06/07/20 12:00 40 06/07/20 12:00 Mechanical Ventilator 06/07/20 12:00 59 06/07/20 11:13 50 12 40 06/07/20 09:50 97 06/07/20 08:00 57 06/07/20 08:00 98.2 59 15 102/54 (70) 100 06/07/20 08:00 Mechanical Ventilator 06/07/20 08:00 40 06/07/20 07:20 56 12 40 06/07/20 04:00 98.8 55 14 103/54 (70) 100 06/07/20 04:00 Mechanical Ventilator 06/07/20 04:00 40 06/07/20 03:26 62 06/07/20 03:20 59 16 40 06/07/20 00:00 97.6 54 12 97/48 (64) 100 06/07/20 00:00 Mechanical Ventilator 06/06/20 23:29 58 06/06/20 22:54 51 13 40 06/06/20 20:00 97.8 52 12 113/64 (80) 95 06/06/20 20:00 40 06/06/20 20:00 Mechanical Ventilator 06/06/20 20:00 58 06/06/20 19:30 62 13 40 06/06/20 16:00 Mechanical Ventilator 06/06/20 16:00 70 06/06/20 16:00 97.9 65 14 104/63 (77) 95 06/06/20 16:00 40 06/06/20 15:24 68 16 50 Intake and Output 06/06/20 06/07/20 19:00 07:00 Intake Total 1920 ml 1575 ml Output Total 1000 ml Balance 920 ml 1575 ml Free Water 90 ml 40 ml IV Total 860 ml 935 ml Tube Feeding 720 ml 600 ml Blood Product 250 ml Output Urine Total 1000 ml # Bowel Movements 3 Laboratory Tests 06/07/20 03:35: White Blood Count 6.6, Red Blood Count 2.90L, Hemoglobin 9.0L, Hematocrit 26.2L, Mean Corpuscular Volume 90, Mean Corpuscular Hemoglobin 30.9, Mean Corpuscular Hemoglobin Concent 34.2, Red Cell Distribution Width 13.5, Platelet Count 218, Mean Platelet Volume 7.2, Neutrophils (%) (Auto) 71.0, Lymphocytes (%) (Auto) 17.4L, Monocytes (%) (Auto) 7.6, Eosinophils (%) (Auto) 2.6, Basophils (%) (Auto) 1.4, Sodium Level 141, Potassium Level 3.9, Chloride Level 107, Carbon Dioxide Level 28, Anion Gap 6, Blood Urea Nitrogen 24H, Creatinine 0.5L, Estimat Glomerular Filtration Rate > 60, Glucose Level 100, Calcium Level 8.8, Phosphorus Level 1.9L, Magnesium Level 1.8 Height (Feet): 5 Height (Inches): 5.00 Weight (Pounds): 142 General Appearance: WD/WN EENT: PERRL/EOMI Neck: non-tender Cardiovascular: normal rate Respiratory/Chest: decreased breath sounds Abdomen: hypoactive bowel sounds Extremities: normal range of motion Edema: trace edema Assessment/Plan Status: stable Assessment/Plan: 70-year-old female history of advanced dementia, cachexia, dysphasia G-tube dependent feeding presents for evaluation of rapid heart rate and hypotension from COVID positive SNF. # Septic with element of cardiogenic shock Etiology COVID 19 vs UTI vs bacteremia / contaminant and NSTEMI Gram positive bacteremia- contaminant; recurrent -05/14 Bcx 09/12 S. haemolyticus; 05/17 Bcx Neg -05/31 Bcx 09/10 P.a -06/01 Bcx Neg -06/04 Bcx GNR -06/06 BCx - Pending Sputum Cx 05/25 with Pseudomonas. Colonizer and recent completion of 14 day treatment with Meropenem U cx 05/14 Proteus Mirabillis Meropenem 14 days completed Vancomycin stopped stopped Cefepime Dexamethasone 10 day course completed Leukocytosis improved. Monitor clinically for now and OFF antibiotics per ID COVID NEGATIVE x 2 05/25 and 05/26 ID Heavy Equipment Operator/Paver 06/04 recommends: - Repeat BCx 06/05 Pending - Start Zerbaxa DAY 3 for MDR PsA bacteremia, if worsening can try double coverage w/ colistin or polyB but overall slightly stable currently PENDING FINAL ID MINE ENVIRONMENTAL ENGINEER PLAN FOR DISCHARGE TO SUBACUTE LEVEL OF CARE. # Acute respiratory failure Intubated. Self extubated 05/27 and re intubated by ED MD successfully. ICU care appreciated Dr. Rock following Ventilator management per ICU-pulmonary FiO2 40 % today. T piece. Medically tracheostomy was needed and life saving procedure as she is not tolerating wean off. Overall, her quality of life will not improve from prior baseline with advanced dementia. Will need permanent ventilator support via tracheostomy and subacute level of care. Critical care attending, Surgery and GI attendings notified to plan PEG and TRACH as medically indicated and completed 06/02/20 # SVT vs A. Flutter s/p DC x 3 # NSTEMI HR is controlled in the 100 range and tolerating Digoxin Vasopressors in place Levophed at [address] Morillo requested and TTE requested and poor window. Troponin 3.4 now 0.7 EKG 05/17 NSR, stable. Inferior wall ischemia Repeat TTE is indicated to assess EF. # AG metabolic acidosis Ddx lactic acidosis Improved. # Hyperglycemia r/o DKA ABG and Ketones negative Endocrine consult with Dr. Shelley IV insulin gtt stopped and in SQ insulin coverage now # Hypernatremia resolved Improving Monitor BMP # COVID 19 Positive on admission, now NEGATIVE as of 05/25/20 On Dexamethasone completed 10 day course Contact and droplet isolation # Dysphagia PEG REMOVED 05/16 Carlo Vargas consulted NGT placed and Tube feeds started 05/18 and being tolerated at 45 cc hr Glucerna 1.2 # Severe protein caloric malnutrition with Albumin 1.5 RD follow up # Thrombocytopenia Platelets down from 80 K to 64 K to 66 K ( OFF Heparin ) and improved to normal range. 05/17 dc heparin, use SCD, order US Liver, HIT Ab, HIV negative Monitor carefully as Lovenox was restarted 06/03 for DVT # Newly detected lower extremity DVT HOLD off anticoagulation as tracheostomy and PEG done 06/[address] Garcia and agreed to start anticoagulation therapy for DVT Lovenox at 1 mg Kg SQ q 12 hr started 06/03 PM # Hypokalemia # Hypophosphatemia Replace as needed Monitor in AM # Anemia Etiology likely secondary to multiple blood draws vs RAULITO vs less likely GIB FOBT pending. iron studies SHOW IRON DEFICIENCY. ordered IV iron x 1 only Trend Hb and PRN PRBC if Hb less than 8, 1 unit 06/06 Hb 9 today # Dementia Baseline # FULL CODE SW follow up to reach out to DPOA and consider change in code status due to high morbidity and risk of inpatient mortality. Paperwork completed for superior court of the [facility] for request of tracheostomy and gastrostomy placement due to medical need on 05/26/20 Bioethic consult requested and spoke with Dr. Hung from ethics and I agree with his assessment that the patient quality of life will NOT IMPROVE with tracheostomy and replacement of PEG. The patient is very limited due to her underlying dementia and now unable to wean off the ventilator. SHE HAD THE NEED TO GET A TRACHEOSTOMY and PEG was replaced 06/01/[address] Garcia DUE TO MEDICAL NECESSITY AND LIFE SAVING PROCEDURES. DR. ROCK AND I AGREED AND SIGNED [address] MD [address] FORM. PENDING [address] DECISION REGARDING CODE STATUS. DNR IS MEDICALLY INDICATED. > 50 min spent in coordination of care and consultation with physicians and RN. Jessica Wade MD Jun 07, 2020 13:24
--- NOTE | 2020-06-07 13:26 | NUR ---
CASE MANAGEMENT: REVIEW SI: COVID-19 . GRAM POSITIVE BACTEREMIA PEG / TRACH 06/03 T 97.9 HR 55 RR 14 BP 102/54 SAT 97% MECH VENT FIO2 40 H/H 9.0/26.2 BUN 24 CR 0.5 IS: ZERBAXA IV Q8HR NS IVF @ 75ML/HR K PHOS IV X1 STEP DOWN UNIT STATUS DCP: PATIENT IS FROM [facility]
--- NOTE | 2020-06-07 14:00 | NUR ---
NURSE NOTES: Dr. Wade at the bedside made aware patient last night lowest HR 47, BP 90-100s. No new order received at this time. Will continue to monitor.
[2020-06-07 16:00] VITALS: BP 121/61
[2020-06-07] MEDS: Docusate 100mg/10ml Liq GT SCH (17:25)
--- NOTE | 2020-06-07 19:13 | NUR ---
NURSE HAND-OFF REPORT: Important Events on Shift: SB HR 50s , SBP 100s, MD made aware Patient Status: stable Diet: Glucerna 1.2 @ 60ml/h Pending Orders: NA Pending Results/Labs:NA Pending MD notification:Na Latest Vital Signs: Temperature 97.6 , Pulse 55 , B/P 121 /61 , Respiratory Rate 12 , O2 SAT 95 , Mechanical Ventilator, O2 Flow Rate 12.0 . Vital Sign Comment: stable, SB EKG Rhythm: Sinus Bradycardia Rhythm change?: N Notified?: Chucky Pierce MD Response: No New Orders Received Latest Garza Fall Score: 50 Fall Risk: High Risk Safety Measures: Call light Within Reach, Bed Alarm Zone 1, Side Rails Side Rails x3, Bed position Low and Locked. Fall Precautions: Yellow Socks Yellow Gown Door Sign Patient Fall Education Report given to SARA Wills.
--- NOTE | 2020-06-07 19:50 | NUR ---
NURSE NOTES: Report received from SARA Rasmussen. Observed pt lying in the bed, obtunded, sleeping. SB on seal mixing operator noted, with HR of 50s. Trach to vent, Shiley 8, AC 12, TV 500, FIO2 40%, PEEP 5, tolerating at this time. GT intact, Glucenra 1.2 running at 60cc/hr. F/C intact. PICC on R IJ triple lumen, intact, running 1/2 NS at 75cc/hr. Bed in the lowest position. Side rails up x3. Will continue to monitor.
[2020-06-07 20:00] VITALS: BP 112/58
[2020-06-07] MEDS: Miralax 17gm pkt GT SCH (20:48)
[2020-06-07] MEDS: Dyna-Hex 2% Top Sol 2oz TOPIC SCH (20:48)
[2020-06-08] VITALS: BP 113/61
--- NOTE | 2020-06-08 00:07 | NUR ---
NURSE NOTES: Noted HR of 50 at this time. No acute distress noted at this time. Reposition done. Oral care given. Will continue to monitor.
[2020-06-08] MEDS: NS IV SCH ×3 (03:00→17:59)
[2020-06-08] MEDS: CEFTOLOZANE IV SCH ×3 (03:00→17:59)
[2020-06-08] MEDS: TAZOBACTAM IV SCH ×3 (03:00→17:59)
[2020-06-08 04:00] VITALS: BP 105/58
[2020-06-08 05:15] LABS: BASOPHILS % (AUTO) 1.6 % (0.0-2.0); EOSINOPHILS % (AUTO) 0.8 % (0.0-3.0); HEMATOCRIT 27.3 % (37.0-47.0); HEMOGLOBIN 9.3 G/DL (12.0-16.0); MEAN CORPUSCULAR VOLUME 91 FL (80-99); MONOCYTES % (AUTO) 6.7 % (1.0-10.0); PLATELET COUNT 232 K/UL (150-450); RED BLOOD COUNT 3.02 M/UL (4.20-5.40); RED CELL DISTRIBUTION WIDTH 13.2 % (11.6-14.8); WHITE BLOOD COUNT 7.4 K/UL (4.8-10.8)
[2020-06-08 05:33] LABS: ANION GAP 6 mmol/L (5-15); BLOOD UREA NITROGEN 22 mg/dL (7-18); CALCIUM 9.1 MG/DL (8.5-10.1); CARBON DIOXIDE 29 MMOL/L (21-32); CHLORIDE 107 MMOL/L (98-107); CREATININE 0.5 MG/DL (0.55-1.30); PHOSPHORUS 2.8 MG/DL (2.5-4.9); POTASSIUM 4.2 MMOL/L (3.5-5.1); SODIUM 142 MMOL/L (136-145)
--- NOTE | 2020-06-08 07:05 | NUR ---
RESPIRATORY NOTE: PT RECEIVED STABLE ON CMV WITH CURRENT SETTINGS. SX PRN, AIRWAY IS SECURE AND PATENT. NO S/S OF RESPIRATORY DISTRESS NOTED AT THIS TIME. WILL CONTINUE TO MONITOR.
--- NOTE | 2020-06-08 07:10 | NUR ---
NURSE NOTES: received patient report from jon bustamante. patient is on bed asleep. on vent at prescribed rate. tube feeding running, free water per order. fluid running. with bellamy for retnetion.wound care per order. will follow plan of care.
--- NOTE | 2020-06-08 07:25 | NUR ---
NURSE HAND-OFF REPORT: Important Events on Shift: SB, HR of 50 noted Patient Status: no acute distress at this time. Diet: Glucerna 1.5 Pending Orders: n Pending Results/Labs:n Pending MD notification:n Latest Vital Signs: Temperature 97.9 , Pulse 55 , B/P 105 /58 , Respiratory Rate 13 , O2 SAT 97 , Mechanical Ventilator, O2 Flow Rate 12.0 . Vital Sign Comment: EKG Rhythm: Sinus Bradycardia Rhythm change?: N Notified?: Chucky Pierce MD Response: No New Orders Received Latest Garza Fall Score: 50 Fall Risk: High Risk Safety Measures: Call light Within Reach, Bed Alarm Zone 1, Side Rails Side Rails x3, Bed position Low and Locked. Fall Precautions: Yellow Socks Yellow Gown Door Sign Patient Fall Education Report given to SARA Pierre.
--- NOTE | 2020-06-08 07:49 | General Progress Note ---
Subjective ROS Limited/Unobtainable: No Allergies: Coded Allergies: DIVALPROEX SODIUM (Verified Allergy, Unknown, 05/14/20) PENICILLINS (Verified Allergy, Unknown, 05/14/20) Objective Last 24 Hour Vital Signs Date Time Temp Pulse Resp B/P (MAP) Pulse Ox O2 Delivery O2 Flow Rate FiO2 06/08/20 04:00 97.9 55 13 105/58 (74) 97 06/08/20 04:00 Mechanical Ventilator 06/08/20 04:00 40 06/08/20 04:00 60 06/08/20 03:10 59 13 40 06/08/20 00:00 58 06/08/20 00:00 97.9 56 13 113/61 (78) 97 06/08/20 00:00 40 06/08/20 00:00 Mechanical Ventilator 06/07/20 22:55 57 13 40 06/07/20 20:00 40 06/07/20 20:00 Mechanical Ventilator 06/07/20 20:00 98.0 60 13 112/58 (76) 100 06/07/20 20:00 55 06/07/20 19:19 50 12 40 06/07/20 16:00 40 06/07/20 16:00 97.6 81 12 121/61 (81) 95 06/07/20 16:00 Mechanical Ventilator 06/07/20 16:00 55 06/07/20 15:20 54 12 40 06/07/20 12:00 97.9 76 12 103/54 (70) 97 06/07/20 12:00 40 06/07/20 12:00 Mechanical Ventilator 06/07/20 12:00 59 06/07/20 11:13 50 12 40 06/07/20 09:50 97 06/07/20 08:00 57 06/07/20 08:00 98.2 59 15 102/54 (70) 100 06/07/20 08:00 Mechanical Ventilator 06/07/20 08:00 40 Intake and Output 06/07/20 06/08/20 19:00 07:00 Intake Total 2062.776 ml 1675 ml Output Total 1300 ml 2000 ml Balance 762.776 ml -325 ml Free Water 90 ml 130 ml IV Total 1252.776 ml 825 ml Tube Feeding 720 ml 720 ml Output Urine Total 1300 ml 2000 ml # Bowel Movements 4 2 Laboratory Tests 06/08/20 03:20: White Blood Count 7.4, Red Blood Count 3.02L, Hemoglobin 9.3L, Hematocrit 27.3L, Mean Corpuscular Volume 91, Mean Corpuscular Hemoglobin 30.7, Mean Corpuscular Hemoglobin Concent 33.9, Red Cell Distribution Width 13.2, Platelet Count 232, Mean Platelet Volume 6.8, Neutrophils (%) (Auto) 77.0H, Lymphocytes (%) (Auto) 14.0L, Monocytes (%) (Auto) 6.7, Eosinophils (%) (Auto) 0.8, Basophils (%) (Auto) 1.6, Sodium Level 142, Potassium Level 4.2, Chloride Level 107, Carbon Dioxide Level 29, Anion Gap 6, Blood Urea Nitrogen 22H, Creatinine 0.5L, Estimat Glomerular Filtration Rate > 60, Glucose Level 108H, Calcium Level 9.1, Phosphorus Level 2.8 Height (Feet): 5 Height (Inches): 5.00 Weight (Pounds): 142 General Appearance: no apparent distress EENT: normal ENT inspection Neck: supple Cardiovascular: normal rate Respiratory/Chest: decreased breath sounds Abdomen: normal bowel sounds, non tender, soft Extremities: non-tender Assessment/Plan Status: stable Assessment/Plan: 1. History of CVA. 2. Dementia. 3. Dysphagia with G-tube. 4. Cachexia. 5. Diabetes. 6. Pressure ulcers. 7. Hypothyroidism. 8. Legal blindness. 9. Currently COVID positive. s/p peg and trach GTF monitor for residuals fu labs supportive care Jhon Matos MD Jun 08, 2020 07:49
[2020-06-08 08:00] VITALS: BP 109/58
[2020-06-08] MEDS: Docusate 100mg/10ml Liq GT SCH ×2 (08:04→17:03)
[2020-06-08] MEDS: Pantoprazole Inj IV SCH (08:05)
[2020-06-08] MEDS: Enoxaparin 60mg Inj SUBQ SCH ×2 (08:06→21:08)
--- NOTE | 2020-06-08 11:19 | Infectious Diseases Prog Note ---
Assessment/Plan 70 yo female with PMHx of Dementia, DM, CVA ( S/P PEG), COVID 19 infection and pressure ulcers. Septic Shock-combination cardiogenic and septic; -back on pressors, decreasing Gram positive bacteremia- contaminant; recurrent -05/14 Bcx 1/ S. haemolyticus; 05/17 Bcx Neg -05/31 Bcx 1/2 P.a -06/01 Bcx Neg -06/04 Bcx GNR -06/06 BCx - Pend UTI, sp rx UA (+); ucx 10-20k P. mirabilis (S Ceftriaxone, Cefepime) PNA, superimposed bacterial, sp rx Recent COVID19 pna- now repeat neg x2 -05/27 CXR: Previously seen left lung atelectasis has nearly completely resolved. Retrocardiac atelectasis without or with some component of cons olidation. Low lung volumes with bronchovascular crowding. -05/26 CXR: Complete opacification of the left hemithorax with mediastinal shift to the left likely due to complete atelectasis of the left lung perhaps from mucous plugging. rapid COVID PCR neg -05/25 sp cx MDR PsA (I Ceftazidime, Colistin, Polymixin B); suspect colonizer SARS-COV2 neg -05/24 SARS-COV2 pCR inconclusive -05/23 CXR: Worsening aeration with increasing hazy opacification of the left lung base which may related to increased layering pleural effusion and adjacent atelectasis/consolidation. -05/19 CXR: Increasing left pleural fluid and likely basilar consolidation/atelectasis. Interim orogastric intubation 05/16 CXR: Retrocardiac density may represent atelectasis versus infiltrate. CXR 05/14/20 showed Retrocardiac atelectasis/infiltrate with Pulmonary venous congestion. sp cx MDR E.coli (S Cefepime, Meropenem, Zosyn) Hx of COVID 19 - Bacteria secondary infection? Asp PNA? 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 Negative for dilated bile ducts. Normal appearing liver and spleen. Trace ascites sp trach/peg 06/01 Dementia DM Hx CVA ( S/P PEG) pressure ulcers PLAN - Continue Zerbaxa #4/14 ( End date 06/18/20) for MDR PsA bacteremia, if worsening can try double coverage w/ colistin or polyB but overall slightly stable currently - Repeat Blood Cx Pending - Please repeat Blood Cx 1 week after stopping abx to assure clearance of bacteremia - Would recommend RIJ removal and placemant of Midline for abx. The lab is working on Zerbaxa and Avycaz Sensi - 06/03/20 SP Meropenem #2 - 06/02/20 SP Vancomycin #2 - 05/27 SP Meropenem # - 05/24 SP Decadron #11 - 05/19 SP IV Vancomcyin #6 - 05/17 SP Cefepime #4 - f/u Cultures - Monitor CBC and Temps -repeat covid neg x2 -f/u repeat cultures Thank you for consulting [facility]. Will continue to follow along with you. Discussed with RN and Pharmacy staff Subjective Allergies: Coded Allergies: DIVALPROEX SODIUM (Verified Allergy, Unknown, 05/14/20) PENICILLINS (Verified Allergy, Unknown, 05/14/20) Afebrile No Leukocytosis On vent 40% Waiting for blood repeat Blood Cx - One from RIJ - NGTD Objective Last 24 Hour Vital Signs Date Time Temp Pulse Resp B/P (MAP) Pulse Ox O2 Delivery O2 Flow Rate FiO2 06/08/20 09:00 40 06/08/20 09:00 Mechanical Ventilator 06/08/20 08:00 97.2 58 14 109/58 (75) 96 06/08/20 07:41 59 06/08/20 04:00 97.9 55 13 105/58 (74) 97 06/08/20 04:00 Mechanical Ventilator 06/08/20 04:00 40 06/08/20 04:00 60 06/08/20 03:10 59 13 40 06/08/20 00:00 58 06/08/20 00:00 97.9 56 13 113/61 (78) 97 06/08/20 00:00 40 06/08/20 00:00 Mechanical Ventilator 06/07/20 22:55 57 13 40 06/07/20 20:00 40 06/07/20 20:00 Mechanical Ventilator 06/07/20 20:00 98.0 60 13 112/58 (76) 100 06/07/20 20:00 55 06/07/20 19:19 50 12 40 06/07/20 16:00 40 06/07/20 16:00 97.6 81 12 121/61 (81) 95 06/07/20 16:00 Mechanical Ventilator 06/07/20 16:00 55 06/07/20 15:20 54 12 40 06/07/20 12:00 97.9 76 12 103/54 (70) 97 06/07/20 12:00 40 06/07/20 12:00 Mechanical Ventilator 06/07/20 12:00 59 Height (Feet): 5 Height (Inches): 5.00 Weight (Pounds): 142 GEN: NAD, On Vent 40% O2 HEENT: NCAT, MMM, Intubated, Right IJ Pulm: Equal rise and fall B/L ABD: Soft, ND, PEG (No e/p) Neuro: Not following SKIN: Exposed skin with no rash, Normal in color Microbiology Date/Time Source Procedure Growth Status 06/06/20 16:30 Blood Blood Culture - Preliminary NO GROWTH AFTER 24 HOURS Resulted 06/06/20 13:00 Blood Blood Culture - Preliminary NO GROWTH AFTER 24 HOURS Resulted Laboratory Tests Test 06/08/20 03:20 06/08/20 11:10 White Blood Count 7.4 K/UL (4.8-10.8) Red Blood Count 3.02 M/UL (4.20-5.40) L Hemoglobin 9.3 G/DL (12.0-16.0) L Hematocrit 27.3 % (37.0-47.0) L Mean Corpuscular Volume 91 FL (80-99) Mean Corpuscular Hemoglobin 30.7 PG (27.0-31.0) Mean Corpuscular Hemoglobin Concent 33.9 G/DL (32.0-36.0) Red Cell Distribution Width 13.2 % (11.6-14.8) Platelet Count 232 K/UL (150-450) Mean Platelet Volume 6.8 FL (6.5-10.1) Neutrophils (%) (Auto) 77.0 % (45.0-75.0) H Lymphocytes (%) (Auto) 14.0 % (20.0-45.0) L Monocytes (%) (Auto) 6.7 % (1.0-10.0) Eosinophils (%) (Auto) 0.8 % (0.0-3.0) Basophils (%) (Auto) 1.6 % (0.0-2.0) Sodium Level 142 MMOL/L (136-145) Potassium Level 4.2 MMOL/L (3.5-5.1) Chloride Level 107 MMOL/L (98-107) Carbon Dioxide Level 29 MMOL/L (21-32) Anion Gap 6 mmol/L (5-15) Blood Urea Nitrogen 22 mg/dL (7-18) H Creatinine 0.5 MG/DL (0.55-1.30) L Estimat Glomerular Filtration Rate > 60 mL/min (>60) Glucose Level 108 MG/DL (74-106) H Calcium Level 9.1 MG/DL (8.5-10.1) Phosphorus Level 2.8 MG/DL (2.5-4.9) POC Whole Blood Glucose 98 MG/DL (74-106) Current Medications Medications (Trade) Dose Ordered Sig/Morgan Route PRN Reason Start Time Stop Time Status Last Admin Dose Admin Acetaminophen (Tylenol) 650 mg Q4H PRN GT Temp >100.5 05/16/20 06:15 06/15/20 06:14 05/31/20 13:15 Acetaminophen (Tylenol) 650 mg Q4H PRN RECTAL Temp >100.5 05/16/20 19:45 06/15/20 19:44 05/17/20 18:30 Atropine Sulfate (Atropine 0.4mg/ ml) 0.4 mg Q2HR PRN IVP HR <45 05/29/20 21:30 06/28/20 19:24 05/30/20 22:39 Ceftolozane/ Tazobactam 1.5 gm/ Sodium Chloride 110 ml @ 110 mls/hr Q8H IV 06/06/20 10:00 06/11/20 23:59 06/08/20 11:05 Chlorhexidine Gluconate (Lilliam-Hex 2%) 1 applic DAILY@2000 TOPIC 05/15/20 20:00 08/13/20 19:59 06/07/20 20:48 Docusate Sodium (Colace) 100 mg TWICE A DAY GT 06/07/20 18:00 07/07/20 17:59 Enoxaparin Sodium (Lovenox) 60 mg EVERY 12 HOURS SUBQ 06/03/20 21:00 09/01/20 20:59 06/08/20 08:06 Fludrocortisone Acetate (Florinef) 0.1 mg DAILY ORAL 06/05/20 09:00 07/05/20 08:59 06/08/20 08:04 Pantoprazole (Protonix) 40 mg DAILY IV 05/15/20 09:00 06/14/20 08:59 06/08/20 08:05 Polyethylene Glycol (Miralax) 17 gm BEDTIME GT 06/07/20 21:00 07/07/20 20:59 Sodium Chloride 1,000 ml @ 75 mls/hr [id number] IV 05/15/20 06:45 06/14/20 06:44 06/08/20 04:17 Zinc Oxide (Zinc Oxide) 1 applic TIDPRN PRN TOPIC Abdominal cramps 05/20/20 13:00 08/18/20 12:59 Erasto Romeo MD Jun 08, 2020 11:19
[2020-06-08 12:00] VITALS: BP 103/61
--- NOTE | 2020-06-08 12:27 | General Progress Note ---
Subjective Date patient seen: Jun 08, 2020 Time patient seen: 12:30 ROS Limited/Unobtainable: Yes Allergies: Coded Allergies: DIVALPROEX SODIUM (Verified Allergy, Unknown, 05/14/20) PENICILLINS (Verified Allergy, Unknown, 05/14/20) Subjective Non verbal, tacheostomy and PEG in place, she is noted to be grimacing. SHE IS OFF DOPAMINE since 06/04 Transferred to [facility] 06/05 Objective Last 24 Hour Vital Signs Date Time Temp Pulse Resp B/P (MAP) Pulse Ox O2 Delivery O2 Flow Rate FiO2 06/08/20 09:00 40 06/08/20 09:00 Mechanical Ventilator 06/08/20 08:00 97.2 58 14 109/58 (75) 96 06/08/20 07:41 59 06/08/20 04:00 97.9 55 13 105/58 (74) 97 06/08/20 04:00 Mechanical Ventilator 06/08/20 04:00 40 06/08/20 04:00 60 06/08/20 03:10 59 13 40 06/08/20 00:00 58 06/08/20 00:00 97.9 56 13 113/61 (78) 97 06/08/20 00:00 40 06/08/20 00:00 Mechanical Ventilator 06/07/20 22:55 57 13 40 06/07/20 20:00 40 06/07/20 20:00 Mechanical Ventilator 06/07/20 20:00 98.0 60 13 112/58 (76) 100 06/07/20 20:00 55 06/07/20 19:19 50 12 40 06/07/20 16:00 40 06/07/20 16:00 97.6 81 12 121/61 (81) 95 06/07/20 16:00 Mechanical Ventilator 06/07/20 16:00 55 06/07/20 15:20 54 12 40 Intake and Output 06/07/20 06/08/20 19:00 07:00 Intake Total 2062.776 ml 1675 ml Output Total 1300 ml 2000 ml Balance 762.776 ml -325 ml Free Water 90 ml 130 ml IV Total 1252.776 ml 825 ml Tube Feeding 720 ml 720 ml Output Urine Total 1300 ml 2000 ml # Bowel Movements 4 2 Laboratory Tests 06/08/20 03:20: White Blood Count 7.4, Red Blood Count 3.02L, Hemoglobin 9.3L, Hematocrit 27.3L, Mean Corpuscular Volume 91, Mean Corpuscular Hemoglobin 30.7, Mean Corpuscular Hemoglobin Concent 33.9, Red Cell Distribution Width 13.2, Platelet Count 232, Mean Platelet Volume 6.8, Neutrophils (%) (Auto) 77.0H, Lymphocytes (%) (Auto) 14.0L, Monocytes (%) (Auto) 6.7, Eosinophils (%) (Auto) 0.8, Basophils (%) (Auto) 1.6, Sodium Level 142, Potassium Level 4.2, Chloride Level 107, Carbon Dioxide Level 29, Anion Gap 6, Blood Urea Nitrogen 22H, Creatinine 0.5L, Estimat Glomerular Filtration Rate > 60, Glucose Level 108H, Calcium Level 9.1, Phosphorus Level 2.8 06/08/20 11:10: POC Whole Blood Glucose 98 Height (Feet): 5 Height (Inches): 5.00 Weight (Pounds): 142 General Appearance: WD/WN EENT: PERRL/EOMI Neck: non-tender, other - R IJ Cardiovascular: normal rate Respiratory/Chest: decreased breath sounds Abdomen: normal bowel sounds 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 # Septic with element of cardiogenic shock Etiology COVID 19 vs UTI vs bacteremia / contaminant and NSTEMI Gram positive bacteremia- contaminant; recurrent -05/14 Bcx 09/12 S. haemolyticus; 05/17 Bcx Neg -05/31 Bcx 09/10 P.a -06/01 Bcx Neg -06/04 Bcx GNR Pseudomona with S to Colistin and Polymixin, I to Ceftazidime -06/06 BCx - NGR Sputum Cx 05/25 with Pseudomonas. Colonizer and recent completion of 14 day treatment with Meropenem U cx 05/14 Proteus Mirabillis Meropenem 14 days completed Vancomycin stopped stopped Cefepime Dexamethasone 10 day course completed Leukocytosis improved. 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 - Remove IJ line and place Mid line or PICC today PENDING FINAL ID BLOCK SEALER PLAN FOR DISCHARGE TO SUBACUTE LEVEL OF CARE. # Acute respiratory failure Intubated. Self extubated 05/27 and re intubated by ED MD successfully. ICU care appreciated Dr. Rock following Ventilator management per ICU-pulmonary FiO2 40 % today. T piece. Medically tracheostomy was needed and life saving procedure as she is not tolerating wean off. Overall, her quality of life will not improve from prior baseline with advanced dementia. Will need permanent ventilator support via tracheostomy and subacute level of care. Critical care attending, Surgery and GI attendings notified to plan PEG and TRACH as medically indicated and completed 06/02/20 # SVT vs A. Flutter s/p DC x 3 # NSTEMI HR is controlled in the 100 range and tolerating Digoxin Vasopressors in place Levophed at [address] Morillo requested and TTE requested and poor window. Troponin 3.4 now 0.7 EKG 05/17 NSR, stable. Inferior wall ischemia # AG metabolic acidosis Ddx lactic acidosis Improved. # Hyperglycemia r/o DKA ABG and Ketones negative Endocrine consult with Dr. Shelley IV insulin gtt stopped and in SQ insulin coverage now # Hypernatremia resolved Improving Monitor BMP # COVID 19 Positive on admission, now NEGATIVE as of 05/25/20 On Dexamethasone completed 10 day course Contact and droplet isolation # Dysphagia PEG REMOVED 05/16 Carlo Vargas consulted NGT placed and Tube feeds started 05/18 and being tolerated at 45 cc hr Glucerna 1.2 # Severe protein caloric malnutrition with Albumin 1.5 RD follow up # Thrombocytopenia Platelets down from 80 K to 64 K to 66 K ( OFF Heparin ) and improved to normal range. 05/17 dc heparin, use SCD, order US Liver, HIT Ab, HIV negative Monitor carefully as Lovenox was restarted 06/03 for DVT # Newly detected lower extremity DVT HOLD off anticoagulation as tracheostomy and PEG done 06/[address] Garcia and agreed to start anticoagulation therapy for DVT Lovenox at 1 mg Kg SQ q 12 hr started 06/03 PM # Hypokalemia # Hypophosphatemia Replace as needed Monitor in AM # Anemia Etiology likely secondary to multiple blood draws vs RAULITO vs less likely GIB FOBT pending. iron studies SHOW IRON DEFICIENCY. ordered IV iron x 1 only Trend Hb and PRN PRBC if Hb less than 8, 1 unit 06/06 Hb 9 range now # Dementia Baseline #DISPOSITION SNF TO [facility] ACCEPTED # FULL CODE SW follow up to reach out to OA and consider change in code status due to high morbidity and risk of inpatient mortality. Paperwork completed for superior court of the [facility] for request of tracheostomy and gastrostomy placement due to medical need on 05/26/20 Bioethic consult requested and spoke with Dr. Hung from ethics and I agree with his assessment that the patient quality of life will NOT IMPROVE with tracheostomy and replacement of PEG. The patient is very limited due to her underlying dementia and now unable to wean off the ventilator. SHE HAD THE NEED TO GET A TRACHEOSTOMY and PEG was replaced 06/01/[address] Garcia DUE TO MEDICAL NECESSITY AND LIFE SAVING PROCEDURES. DR. ROCK AND I AGREED AND SIGNED [address] DECISION REGARDING CODE STATUS. DNR IS MEDICALLY INDICATED. > 50 min spent in coordination of care and consultation with physicians and RN. Jessica Wade MD Jun 08, 2020 12:27
--- NOTE | 2020-06-08 12:41 | Surgery Progress Note ---
Surgery Progress Note Subjective Procedure Performed trach egd with peg Additional Comments no n/vf/c improved comfortable Objective Last 24 Hour Vital Signs Date Time Temp Pulse Resp B/P (MAP) Pulse Ox O2 Delivery O2 Flow Rate FiO2 06/08/20 12:00 40 06/08/20 12:00 Mechanical Ventilator 06/08/20 09:00 40 06/08/20 09:00 Mechanical Ventilator 06/08/20 08:00 97.2 58 14 109/58 (75) 96 06/08/20 07:41 59 06/08/20 04:00 97.9 55 13 105/58 (74) 97 06/08/20 04:00 Mechanical Ventilator 06/08/20 04:00 40 06/08/20 04:00 60 06/08/20 03:10 59 13 40 06/08/20 00:00 58 06/08/20 00:00 97.9 56 13 113/61 (78) 97 06/08/20 00:00 40 06/08/20 00:00 Mechanical Ventilator 06/07/20 22:55 57 13 40 06/07/20 20:00 40 06/07/20 20:00 Mechanical Ventilator 06/07/20 20:00 98.0 60 13 112/58 (76) 100 06/07/20 20:00 55 06/07/20 19:19 50 12 40 06/07/20 16:00 40 06/07/20 16:00 97.6 81 12 121/61 (81) 95 06/07/20 16:00 Mechanical Ventilator 06/07/20 16:00 55 06/07/20 15:20 54 12 40 I&O Intake and Output 06/07/20 06/08/20 19:00 07:00 Intake Total 2062.776 ml 1675 ml Output Total 1300 ml 2000 ml Balance 762.776 ml -325 ml Free Water 90 ml 130 ml IV Total 1252.776 ml 825 ml Tube Feeding 720 ml 720 ml Output Urine Total 1300 ml 2000 ml # Bowel Movements 4 2 Cardiovascular: RSR Respiratory: decreased breath sounds Abdomen: soft, non-tender, present bowel sounds Extremities: no tenderness, no cyanosis Laboratory Tests Test 06/08/20 03:20 06/08/20 11:10 White Blood Count 7.4 K/UL (4.8-10.8) Red Blood Count 3.02 M/UL (4.20-5.40) L Hemoglobin 9.3 G/DL (12.0-16.0) L Hematocrit 27.3 % (37.0-47.0) L Mean Corpuscular Volume 91 FL (80-99) Mean Corpuscular Hemoglobin 30.7 PG (27.0-31.0) Mean Corpuscular Hemoglobin Concent 33.9 G/DL (32.0-36.0) Red Cell Distribution Width 13.2 % (11.6-14.8) Platelet Count 232 K/UL (150-450) Mean Platelet Volume 6.8 FL (6.5-10.1) Neutrophils (%) (Auto) 77.0 % (45.0-75.0) H Lymphocytes (%) (Auto) 14.0 % (20.0-45.0) L Monocytes (%) (Auto) 6.7 % (1.0-10.0) Eosinophils (%) (Auto) 0.8 % (0.0-3.0) Basophils (%) (Auto) 1.6 % (0.0-2.0) Sodium Level 142 MMOL/L (136-145) Potassium Level 4.2 MMOL/L (3.5-5.1) Chloride Level 107 MMOL/L (98-107) Carbon Dioxide Level 29 MMOL/L (21-32) Anion Gap 6 mmol/L (5-15) Blood Urea Nitrogen 22 mg/dL (7-18) H Creatinine 0.5 MG/DL (0.55-1.30) L Estimat Glomerular Filtration Rate > 60 mL/min (>60) Glucose Level 108 MG/DL (74-106) H Calcium Level 9.1 MG/DL (8.5-10.1) Phosphorus Level 2.8 MG/DL (2.5-4.9) POC Whole Blood Glucose 98 MG/DL (74-106) Plan Problems: (1) Hypernatremia (2) Renal failure (3) Respiratory failure (4) Sepsis Assessment & Plan: COVID + leukocytosis anemia electrolytes abnormal on iv fluids renal input appreciated cxr noted abx as per ID will follow with recs Will likely need trach difficult weaning conservatorship working with case management social work to figure out goals of care s/p peg and trach improving much more comfortable Interim placement of orogastric tube, also documented on recent abdominal radiograph. Stable satisfactory position of endotracheal tube and right jugular central venous catheter. There is increased pleural fluid and likely left basilar consolidation/atelectasis. The right lung and pleural space remain clear. Impression: Increasing left pleural fluid and likely basilar consolidation/atelectasis. Interim orogastric intubation DAILY ESTIMATED NEEDS: Needs based on Pulmonary, DM, wounds 66.6kg 25-30 kcals/kg 6929-6672 total kcals 1.25-1.5 g protein/kg 83-100 g total protein 20-25 mL/kg 9496-6557 total fluid mLs NUTRITION DIAGNOSIS: Swallowing difficulty r/t dysphagia as evidenced by h/o CVA, pt is GT dep, currently ICU status, now intubated, off pressor support, GT feeds initiated. CURRENT TF:Glucerna 1.2 @45ml/hr ENTERAL NUTRITION RECOMMENDATIONS: As medically able: GLUCERNA 1.5 goal of 45ml/hr x24 hrs to provide 1080ml, 1620 kcal, 89g pro, 820ml free H2O -> as medically able without aspiration risk start Glucerna 1.5 @low rate 25ml/hr for 6 hrs. Advance as tolerated 10ml/hr q4-6 hrs to goal. - Flush per , HOB over 30 degrees. ---- If not hemodynamically stable, rec trophic feeds of 5-10ml/hr to maintain gut integrity. ADDITIONAL RECOMMENDATIONS: 1) Obtain an accurate calibrated bed scale wt 2) F/up w/ H&P 3) With active TF orders, add JASMYN BID for noted DTPI wounds 4) TF recs as above when off bipap and w/ hemodynamic stability -> Now intubated, off pressors, on GT feeds. he spleen size is normal. The gallbladder contains sludge. No stones. No wall thickening nor pericholecystic fluid. Common bile duct measures 4 mm in diameter. Small amount free fluid is seen adjacent to the liver and spleen Impression: Gallbladder sludge. Negative for dilated bile ducts Normal appearing liver and spleen Patient with respiratory failure intubated on support unable to wean safely. A tracheostomy in this case would be indicated and recommended. Patient is full code but conserved. Given her condition waiting a significant period of time is at high risk for her given the risk for extubation duration of tube and worsening with her ET tube. A trach would be functional manageable for her and recommended. Unfortunately waiting for the time. Would be advisable and discussed with the social workers caser up and medical teams. Repair Service Dispatcher as well. ICU team as well. We will proceed with tracheostomy in patient's best interest given her CODE STATUS and wishes and care plan. i have been asked by GI and medical teams to place PEG as well. after careful evaluation I agree with medical teams that patient would also benefit from feeding tube access. given her condition, Covid status, care plan, goals of care, will place peg at same time of trach to minimize exposure and OR time and limit procedure risks for patient. (5) Elevated d-dimer (6) COVID-19 Assessment & Plan: ++ (7) Pressure ulcer Assessment & Plan: Pt presented on admission with multiple Pressure injuries.DTPI noted to R Buttocks (L)3.8cm x (W)3.4cm. Base of wound is purpuric,fluctuant with surrounding maroon and indurated borders. DTPI Upper L Buttocks(L)5.5cm x (W)4cm. Base of wound is maroon and indurated. Borders are irregular. Non-Blanchable erythema without induration/fluctuance L lower buttocks(L)4cm x (W)7cm. R and L heels are soft but blanchable. Erosion noted at peristomal GT site. Site is erythematous and excoriated. Small amt. sanguineous exudate. Tx.Plan: Apply Moisture Barrier Paste to Sacrum, R and L Buttocks. Cover each area with Optifoam drsg. Change every 3 days and prn. Apply Moisture Barrier Paste to R and L Ischial tuberosities with each incontine nce care. Apply Cavilon Skin Barrier to both heels. Cover each heel and malleoli with Optifoam drsg. Change every 7 days and prn. Reposition at least every 2hours or as tolerated. Off-load heels with pillow. APM/DARIN Mattress overlay. Apply Zinc Oxide Paste TID to GT site. Leave open to Air. (8) Dementia (9) CVA (cerebral vascular accident) (10) T2DM (type 2 diabetes mellitus) (11) Gastrostomy present (12) COVID-19 (13) Rapid atrial fibrillation Paul Garcia Jun 08, 2020 12:41
--- NOTE | 2020-06-08 13:46 | NUR ---
CASE MANAGEMENT: REVIEW SI: COVID-19 . GRAM POSITIVE BACTEREMIA PEG / TRACH 06/03 T 97.2 HR 58 RR 14 BP 105/58 SAT 97% MECH VENT FIO2 40 H/H 9.3/27.3 BUN 22 CR 0.6 IS: ZERBAXA IV Q8HR NS IVF @ 50ML/HR LOVENOX SUBQ Q12HR STEP DOWN UNIT STATUS DCP: PATIENT IS FROM [facility]
[2020-06-08] MEDS ORDERED: Lidocaine 1% Plain 30 ml INJ PRN (14:19)
[2020-06-08 16:00] VITALS: BP 126/68
--- NOTE | 2020-06-08 16:06 | Cardiac Electrophysiology PN ---
Assessment/Plan Assessment/Plan 1. Uar-QC-dyytsduxp myocardial infarction with peak troponin of 3.4 and down to 0.7 EKG shows Inferolateral ischemia Due to septic shock, DCCV and Renal failure. Echo had poor windows. 2. PAF with RVR. S/P DCCV 3 times No more fib or accelerated junctional rhythm. Off beta-ramakrishna or calcium-channel ramakrishna for bradycardia 3. S/P Septic shock. On antibiotic. Off Midodrine in view of bradycardia and on Florinef 0.1 mg daily 4. Bradycardia requiring Atropine x 3 on 05/30/20. Off Dopamine 5. Severe hypernatremia with sodium of 174, BUN of 131, creatinine 2.7 due to dehydration. Improved. Cr 0.5 now 6. Dysphagia, status post PEG replacement per Dr Matos 7. History of CVA and dementia. 8. Respiratory failure, S/P Tracheostomy by Dr. Garcia 06/01/20 KIMMY RN DC to SNIF pending Subjective Subjective In SDU from ICU in [place] with no atrial fib but had bradycardia and received atropine 3 times on 05/31/20 S/P Trach and PEG on 06/02/20. ECG 06/02/20 showed inferolateral ischemia Had emilia in 50s. On 40% Fio2 and AC 12 Objective Last 24 Hour Vital Signs Date Time Temp Pulse Resp B/P (MAP) Pulse Ox O2 Delivery O2 Flow Rate FiO2 06/08/20 12:00 40 06/08/20 12:00 Mechanical Ventilator 06/08/20 12:00 68 06/08/20 12:00 98.1 67 13 103/61 (75) 100 06/08/20 09:00 40 06/08/20 09:00 Mechanical Ventilator 06/08/20 08:00 97.2 58 14 109/58 (75) 96 06/08/20 07:41 59 06/08/20 04:00 97.9 55 13 105/58 (74) 97 06/08/20 04:00 Mechanical Ventilator 06/08/20 04:00 40 06/08/20 04:00 60 06/08/20 03:10 59 13 40 06/08/20 00:00 58 06/08/20 00:00 97.9 56 13 113/61 (78) 97 06/08/20 00:00 40 06/08/20 00:00 Mechanical Ventilator 9/29/20 22:55 57 13 40 06/07/20 20:00 40 06/07/20 20:00 Mechanical Ventilator 06/07/20 20:00 98.0 60 13 112/58 (76) 100 06/07/20 20:00 55 06/07/20 19:19 50 12 40 Intake and Output 06/07/20 06/08/20 18:59 06:59 Intake Total 2062.776 ml 1675 ml Output Total 1300 ml 2000 ml Balance 762.776 ml -325 ml Free Water 90 ml 130 ml IV Total 1252.776 ml 825 ml Tube Feeding 720 ml 720 ml Output Urine Total 1300 ml 2000 ml # Bowel Movements 4 2 Laboratory Tests Test 06/08/20 03:20 06/08/20 11:10 White Blood Count 7.4 K/UL (4.8-10.8) Red Blood Count 3.02 M/UL (4.20-5.40) L Hemoglobin 9.3 G/DL (12.0-16.0) L Hematocrit 27.3 % (37.0-47.0) L Mean Corpuscular Volume 91 FL (80-99) Mean Corpuscular Hemoglobin 30.7 PG (27.0-31.0) Mean Corpuscular Hemoglobin Concent 33.9 G/DL (32.0-36.0) Red Cell Distribution Width 13.2 % (11.6-14.8) Platelet Count 232 K/UL (150-450) Mean Platelet Volume 6.8 FL (6.5-10.1) Neutrophils (%) (Auto) 77.0 % (45.0-75.0) H Lymphocytes (%) (Auto) 14.0 % (20.0-45.0) L Monocytes (%) (Auto) 6.7 % (1.0-10.0) Eosinophils (%) (Auto) 0.8 % (0.0-3.0) Basophils (%) (Auto) 1.6 % (0.0-2.0) Sodium Level 142 MMOL/L (136-145) Potassium Level 4.2 MMOL/L (3.5-5.1) Chloride Level 107 MMOL/L (98-107) Carbon Dioxide Level 29 MMOL/L (21-32) Anion Gap 6 mmol/L (5-15) Blood Urea Nitrogen 22 mg/dL (7-18) H Creatinine 0.5 MG/DL (0.55-1.30) L Estimat Glomerular Filtration Rate > 60 mL/min (>60) Glucose Level 108 MG/DL (74-106) H Calcium Level 9.1 MG/DL (8.5-10.1) Phosphorus Level 2.8 MG/DL (2.5-4.9) POC Whole Blood Glucose 98 MG/DL (74-106) Microbiology Date/Time Source Procedure Growth Status 06/06/20 16:30 Blood Blood Culture - Preliminary NO GROWTH AFTER 24 HOURS Resulted 06/06/20 13:00 Blood Blood Culture - Preliminary NO GROWTH AFTER 24 HOURS Resulted Objective HEAD AND NECK: No JVD. Tracheostomy in place. LUNGS: Coarse rhonchi. CARDIOVASCULAR: Regular S1 and S2 with no gallop. ABDOMEN: Soft. G-tube site in place EXTREMITIES: No pitting edema. Norman Morillo MD Jun 08, 2020 16:06
--- NOTE | 2020-06-08 17:27 | Pulmonology Progress Note ---
Subjective ROS Limited/Unobtainable: Yes Allergies: Coded Allergies: DIVALPROEX SODIUM (Verified Allergy, Unknown, 05/14/20) PENICILLINS (Verified Allergy, Unknown, 05/14/20) All Systems: reviewed and negative except above Subjective out of ICU Objective Last 24 Hour Vital Signs Date Time Temp Pulse Resp B/P (MAP) Pulse Ox O2 Delivery O2 Flow Rate FiO2 06/08/20 16:00 98.6 73 20 126/68 (87) 100 06/08/20 16:00 Mechanical Ventilator 06/08/20 16:00 40 06/08/20 15:05 71 19 40 06/08/20 12:00 40 06/08/20 12:00 Mechanical Ventilator 06/08/20 12:00 68 06/08/20 12:00 98.1 67 13 103/61 (75) 100 06/08/20 11:18 65 14 40 06/08/20 09:38 59 13 40 06/08/20 09:00 40 06/08/20 09:00 94 06/08/20 09:00 Mechanical Ventilator 06/08/20 08:00 97.2 58 14 109/58 (75) 96 06/08/20 07:41 59 06/08/20 07:05 60 14 40 06/08/20 04:00 97.9 55 13 105/58 (74) 97 06/08/20 04:00 Mechanical Ventilator 06/08/20 04:00 40 06/08/20 04:00 60 06/08/20 03:10 59 13 40 06/08/20 00:00 58 06/08/20 00:00 97.9 56 13 113/61 (78) 97 06/08/20 00:00 40 06/08/20 00:00 Mechanical Ventilator 06/07/20 22:55 57 13 40 06/07/20 20:00 40 06/07/20 20:00 Mechanical Ventilator 06/07/20 20:00 98.0 60 13 112/58 (76) 100 06/07/20 20:00 55 06/07/20 19:19 50 12 40 Intake and Output 06/07/20 06/08/20 18:59 06:59 Intake Total 2062.776 ml 1675 ml Output Total 1300 ml 2000 ml Balance 762.776 ml -325 ml Free Water 90 ml 130 ml IV Total 1252.776 ml 825 ml Tube Feeding 720 ml 720 ml Output Urine Total 1300 ml 2000 ml # Bowel Movements 4 2 General Appearance: no acute distress HEENT: normocephalic, status post trach Respiratory: chest wall non-tender, lungs clear, other - trach in place Cardiovascular: normal peripheral pulses, normal rate, regular rhythm Abdomen: normal bowel sounds, soft, non tender, non distended, other - GT Extremities: no cyanosis, no clubbing, no edema Neurologic: unresponsiveness Microbiology Date/Time Source Procedure Growth Status 06/06/20 16:30 Blood Blood Culture - Preliminary NO GROWTH AFTER 24 HOURS Resulted 06/06/20 13:00 Blood Blood Culture - Preliminary NO GROWTH AFTER 24 HOURS Resulted Laboratory Tests 06/08/20 03:20: White Blood Count 7.4, Red Blood Count 3.02L, Hemoglobin 9.3L, Hematocrit 27.3L, Mean Corpuscular Volume 91, Mean Corpuscular Hemoglobin 30.7, Mean Corpuscular Hemoglobin Concent 33.9, Red Cell Distribution Width 13.2, Platelet Count 232, Mean Platelet Volume 6.8, Neutrophils (%) (Auto) 77.0H, Lymphocytes (%) (Auto) 14.0L, Monocytes (%) (Auto) 6.7, Eosinophils (%) (Auto) 0.8, Basophils (%) (Auto) 1.6, Sodium Level 142, Potassium Level 4.2, Chloride Level 107, Carbon Dioxide Level 29, Anion Gap 6, Blood Urea Nitrogen 22H, Creatinine 0.5L, Estimat Glomerular Filtration Rate > 60, Glucose Level 108H, Calcium Level 9.1, Phosphorus Level 2.8 06/08/20 11:10: POC Whole Blood Glucose 98 Current Medications Medications (Trade) Dose Ordered Sig/Morgan Route PRN Reason Start Time Stop Time Status Last Admin Dose Admin Acetaminophen (Tylenol) 650 mg Q4H PRN GT Temp >100.5 05/16/20 06:15 06/15/20 06:14 05/31/20 13:15 Acetaminophen (Tylenol) 650 mg Q4H PRN RECTAL Temp >100.5 05/16/20 19:45 06/15/20 19:44 05/17/20 18:30 Atropine Sulfate (Atropine 0.4mg/ ml) 0.4 mg Q2HR PRN IVP HR <45 05/29/20 21:30 06/28/20 19:24 05/30/20 22:39 Ceftolozane/ Tazobactam 1.5 gm/ Sodium Chloride 110 ml @ 110 mls/hr Q8H IV 06/06/20 10:00 06/11/20 23:59 06/08/20 11:05 Chlorhexidine Gluconate (Lilliam-Hex 2%) 1 applic DAILY@2000 TOPIC 06/08/20 20:00 09/06/20 19:59 Docusate Sodium (Colace) 100 mg TWICE A DAY GT 06/07/20 18:00 07/07/20 17:59 Enoxaparin Sodium (Lovenox) 60 mg EVERY 12 HOURS SUBQ 06/03/20 21:00 09/01/20 20:59 06/08/20 08:06 Fludrocortisone Acetate (Florinef) 0.1 mg DAILY ORAL 06/05/20 09:00 07/05/20 08:59 06/08/20 08:04 Lidocaine HCl (Xylocaine 1% 30ml) 30 ml ONCE PRN INJ PICC 06/08/20 14:19 06/08/20 23:59 Pantoprazole (Protonix) 40 mg DAILY IV 05/15/20 09:00 06/14/20 08:59 06/08/20 08:05 Polyethylene Glycol (Miralax) 17 gm BEDTIME GT 06/07/20 21:00 07/07/20 20:59 Sodium Chloride 1,000 ml @ 50 mls/hr Q20H IV 05/15/20 06:45 06/14/20 06:44 06/08/20 16:53 Zinc Oxide (Zinc Oxide) 1 applic TIDPRN PRN TOPIC Abdominal cramps 05/20/20 13:00 08/18/20 12:59 Assessment/Plan Assessment/Plan IMPRESSION: 1. Acute respiratory failure. 2. Diabetes mellitus with hyperglycemia. 3. Septic shock. 4. Chronic G-tube. 5. Decubitus. 6. History of CHF. 7. Tracheostomy 8. severe PCM 9. pleural effusions 10. atelectasis DISCUSSION: monitor vent setting and adjust Continue fluids and antibiotics. off pressors S/p trach- monitor care wean as able On 40% FiO2 DVT and GI prophylaxis. nutrition and protein replacement Respiratory precautions impression, plan, and exam edited and reviewed in detail care discussed with Hung Kelly MD Jun 08, 2020 17:27
--- NOTE | 2020-06-08 19:05 | NUR ---
NURSE HAND-OFF REPORT: Important Events on Shift:for picc line placement, unsuccessful peripheral line placement via US Patient Status: full code Diet: tube feeds, glucerna 1.2 @ [id number] Pending Orders: line placement Pending Results/Labs: Pending MD notification:[] Latest Vital Signs: Temperature 98.6 , Pulse 68 , B/P 126 /68 , Respiratory Rate 20 , O2 SAT 100 , Mechanical Ventilator, O2 Flow Rate 12.0 . Vital Sign Comment: stable EKG Rhythm: Sinus Rhythm Rhythm change?: N MD Notified?: MD Response: No New Orders Received Latest Garza Fall Score: 70 Fall Risk: High Risk Safety Measures: Call light Within Reach, Bed Alarm Zone 2, Side Rails Side Rails x3, Bed position Low and Locked. Fall Precautions: Yellow Socks Yellow Gown Patient Fall Education Report given to adrian bustamante.
--- NOTE | 2020-06-08 19:06 | NUR ---
NURSE NOTES: Report received from SARA Pierre. Pt. awake, disoriented, unable to make needs known. 5 lead EKG shows SR with PAC's Pt. on vent A/C 12. Vt 500, FiO2 40% Right IJ intact running 1/2 NS at 50 G-tube patent with 0 residual running glucerna 1.2 at 60 Bed kept in lowest and locked position. Will continue to monitor.
[2020-06-08 20:00] VITALS: BP 121/68
[2020-06-08] MEDS: Miralax 17gm pkt GT SCH (21:07)
[2020-06-08] MEDS: Dyna-Hex 2% Top Sol 2oz TOPIC SCH (21:07)
--- NOTE | 2020-06-08 23:00 | NUR ---
NURSE NOTES: Pt tracheostomy area observed to be bleeding with scant drainage of blood. Changed dressing with RT. Pt in stable condition. Will monitor.
[2020-06-09] VITALS: BP 119/73
[2020-06-09] MEDS: NS IV SCH ×3 (03:28→17:51)
[2020-06-09] MEDS: TAZOBACTAM IV SCH ×3 (03:28→17:51)
[2020-06-09] MEDS: CEFTOLOZANE IV SCH ×3 (03:28→17:51)
--- NOTE | 2020-06-09 03:49 | NUR ---
NURSE NOTES: Pt more alert and able to make needs known with yes or no questions. Drainage still observed from trach site. No respiratory or cardiac distress noted saturating at 100%.
[2020-06-09 04:00] VITALS: BP 99/57
[2020-06-09 04:56] LABS: BASOPHILS % (AUTO) 1.5 % (0.0-2.0); EOSINOPHILS % (AUTO) 1.1 % (0.0-3.0); HEMATOCRIT 26.9 % (37.0-47.0); HEMOGLOBIN 9.3 G/DL (12.0-16.0); LYMPHOCYTES % (AUTO) 12.2 % (20.0-45.0); MEAN CORPUSCULAR VOLUME 90 FL (80-99); MONOCYTES % (AUTO) 5.6 % (1.0-10.0); NEUTROPHILS % (AUTO) 79.7 % (45.0-75.0); PLATELET COUNT 264 K/UL (150-450); RED BLOOD COUNT 2.98 M/UL (4.20-5.40); RED CELL DISTRIBUTION WIDTH 13.3 % (11.6-14.8); WHITE BLOOD COUNT 8.6 K/UL (4.8-10.8)
[2020-06-09 05:30] LABS: ANION GAP 3 mmol/L (5-15); BLOOD UREA NITROGEN 19 mg/dL (7-18); CALCIUM 9.7 MG/DL (8.5-10.1); CARBON DIOXIDE 32 MMOL/L (21-32); CHLORIDE 106 MMOL/L (98-107); CREATININE 0.5 MG/DL (0.55-1.30); PHOSPHORUS 2.5 MG/DL (2.5-4.9); POTASSIUM 3.9 MMOL/L (3.5-5.1); SODIUM 141 MMOL/L (136-145)
--- NOTE | 2020-06-09 06:00 | NUR ---
NURSE NOTES: Pt refusing peripheral IV insertion. Spoke to Elinor Smith, supervisor cytology, in regards to getting in contact with Quinten Lucio, legal guardian of Roma to obtain consent for PICC line placement; Per Elinor, "Under court order, there must be a MD declaration that issues consent. Upon issuing consent the court will have the legal guardian [Lucio] fax paperwork to MD office that will then be signed off to perform procedure." Office will re-open after 0800 and Eilnor encourages nurses to call back then. Pt in stable condition.
--- NOTE | 2020-06-09 06:56 | NUR ---
NURSE HAND-OFF REPORT: Important Events on Shift: N/A. Patient Status: Stable Diet: Glucerna 1.2 Pending Orders: Y Pending Results/Labs: N Pending notification: N Latest Vital Signs: Temperature 98.4 , Pulse 56 , B/P 99 /57 , Respiratory Rate 12 , O2 SAT 99 , Mechanical Ventilator, O2 Flow Rate 12.0 . Vital Sign Comment: EKG Rhythm: Sinus Bradycardia Rhythm change?: N Notified?: Chucky Pierce MD Response: No New Orders Received Latest Garza Fall Score: 70 Fall Risk: High Risk Safety Measures: Call light Within Reach, Bed Alarm Zone 2, Side Rails Side Rails x3, Bed position Low and Locked. Fall Precautions: Yellow Socks Yellow Gown Patient Fall Education Report given to SARA Daugherty. Addendum: 06/09/20 at 0743 by Verena Meadows RN Report given to SARA Leigh
--- NOTE | 2020-06-09 07:31 | NUR ---
RD ASSESSMENT & RECOMMENDATIONS SEE CARE ACTIVITY FOR COMPLETE ASSESSMENT DAILY ESTIMATED NEEDS: Needs based on Critical care, 57.8kg abw 22-30 kcals/kg 5883-7949 total kcals 1.2-2 g protein/kg 69-116 g total protein 25-30 mL/kg 7265-0269 total fluid mLs NUTRITION DIAGNOSIS: Swallowing difficulty r/t h/o CVA, dysphagia as evidenced by pt is GT dep, now intubated w/ resp distress, now s/p trach and new PEG. CURRENT TF:Glucerna 1.2 @ 60ml/hr x24 hrs ENTERAL NUTRITION RECOMMENDATIONS: Glucerna 1.2 @ 60ml/hr x24 hrs to provide 1440ml, 1728 kcal, 86g pro, 1159ml free H2O - Maintain current TF @ goal - Flush per MD. HOB over 30 degrees ADDITIONAL RECOMMENDATIONS: 1) Monitor lytes, replete as needed: low phos 2) Obtain an accurate wt: per MD pt w/ 'cachexia' EMR wt: 117.8kg vs am wts:64kg; trend wt, need to increase TF 3) Wound healing: TF provides 100% RDI add Vit C 250mg QD + Flavio BID 4) Monitor BGs closely: improved-> now off niss, accuchecks .
[2020-06-09 08:00] VITALS: BP 101/56
[2020-06-09] MEDS: Pantoprazole Inj IV SCH (09:56)
[2020-06-09] MEDS: Docusate 100mg/10ml Liq GT SCH ×2 (09:56→17:51)
[2020-06-09] MEDS: Enoxaparin 60mg Inj SUBQ SCH ×2 (10:01→21:00)
--- NOTE | 2020-06-09 10:23 | Infectious Diseases Prog Note ---
Assessment/Plan 70 yo female with PMHx of Dementia, DM, CVA ( S/P PEG), COVID 19 infection and pressure ulcers. Septic Shock-combination cardiogenic and septic; -back on pressors, decreasing Gram positive bacteremia- contaminant; recurrent -05/14 Bcx 1/ S. haemolyticus; 05/17 Bcx Neg -05/31 Bcx 1/2 P.a -06/01 Bcx Neg -06/04 Bcx GNR -06/06 BCx - Pend UTI, sp rx UA (+); ucx 10-20k P. mirabilis (S Ceftriaxone, Cefepime) PNA, superimposed bacterial, sp rx Recent COVID19 pna- now repeat neg x2 -05/27 CXR: Previously seen left lung atelectasis has nearly completely resolved. Retrocardiac atelectasis without or with some component of cons olidation. Low lung volumes with bronchovascular crowding. -05/26 CXR: Complete opacification of the left hemithorax with mediastinal shift to the left likely due to complete atelectasis of the left lung perhaps from mucous plugging. rapid COVID PCR neg -05/25 sp cx MDR PsA (I Ceftazidime, Colistin, Polymixin B); suspect colonizer SARS-COV2 neg -05/24 SARS-COV2 pCR inconclusive -05/23 CXR: Worsening aeration with increasing hazy opacification of the left lung base which may related to increased layering pleural effusion and adjacent atelectasis/consolidation. -05/19 CXR: Increasing left pleural fluid and likely basilar consolidation/atelectasis. Interim orogastric intubation 05/16 CXR: Retrocardiac density may represent atelectasis versus infiltrate. CXR 05/14/20 showed Retrocardiac atelectasis/infiltrate with Pulmonary venous congestion. sp cx MDR E.coli (S Cefepime, Meropenem, Zosyn) Hx of COVID 19 - Bacteria secondary infection? Asp PNA? COVID 19 tested Pos OSF - about 3 week BLOCK SEALER -still positive Rapid COVID PCR 05/14 Resp Fail Intuabted on Vent Leukocytosis; increased (sp steroids)- SP Fever; low grade ,recurrent -06/01 u/a wbc 10-15, nit neg, leuk +1 L femoral DVT EMA, SP SVT -sp cardioversion Hyperglycemia Elevated LFTs; resolving -Abd US: Gallbladder sludge. Negative for dilated bile ducts. Normal appearing liver and spleen. Trace ascites sp trach/peg 06/01 Dementia DM Hx CVA ( S/P PEG) pressure ulcers PLAN - Continue Zerbaxa #5/14 ( End date 06/18/20) for MDR PsA bacteremia, if worsening can try double coverage w/ colistin or polyB but overall slightly stable currently - Repeat Blood Cx Pending - Please repeat Blood Cx 1 week after stopping abx to assure clearance of bacteremia - Would recommend RIJ removal and placemant of Midline for abx. The lab is working on Zerbaxa and Avycaz Sensi - 06/03/20 SP Meropenem #2 - 06/02/20 SP Vancomycin #2 - 05/27 SP Meropenem # - 05/24 SP Decadron #11 - 05/19 SP IV Vancomcyin #6 - 05/17 SP Cefepime #4 - f/u Cultures - Monitor CBC and Temps -repeat covid neg x2 -f/u repeat cultures Thank you for consulting [facility]. Will continue to follow along with you. Discussed with RN and Pharmacy staff Subjective Allergies: Coded Allergies: DIVALPROEX SODIUM (Verified Allergy, Unknown, 05/14/20) PENICILLINS (Verified Allergy, Unknown, 05/14/20) Afebrile No Leukocytosis On vent 40% Waiting for blood repeat Blood Cx - One from RIJ - NGTD - 48Hr Objective Last 24 Hour Vital Signs Date Time Temp Pulse Resp B/P (MAP) Pulse Ox O2 Delivery O2 Flow Rate FiO2 06/09/20 08:00 40 06/09/20 08:00 64 06/09/20 08:00 98.4 63 14 101/56 (71) 100 06/09/20 08:00 Mechanical Ventilator 06/09/20 07:05 61 12 40 06/09/20 04:00 40 06/09/20 04:00 Mechanical Ventilator 06/09/20 04:00 98.4 56 12 99/57 (71) 99 06/09/20 03:30 59 06/09/20 03:15 62 13 40 06/09/20 00:00 98.2 71 15 119/73 (88) 100 06/09/20 00:00 Mechanical Ventilator 06/08/20 23:29 73 06/08/20 23:19 70 17 40 06/08/20 20:00 Mechanical Ventilator 06/08/20 20:00 98.9 76 15 121/68 (85) 99 06/08/20 20:00 40 06/08/20 19:02 78 06/08/20 19:00 85 14 40 06/08/20 16:00 68 06/08/20 16:00 98.6 73 20 126/68 (87) 100 06/08/20 16:00 Mechanical Ventilator 06/08/20 16:00 40 06/08/20 15:05 71 19 40 06/08/20 12:00 40 06/08/20 12:00 Mechanical Ventilator 06/08/20 12:00 68 06/08/20 12:00 98.1 67 13 103/61 (75) 100 06/08/20 11:18 65 14 40 Height (Feet): 5 Height (Inches): 5.00 Weight (Pounds): 142 GEN: NAD, On Vent HEENT: NCAT, MMM, Intubated, Right IJ Pulm: Equal rise and fall B/L ABD: Soft, ND, PEG (No e/p) Neuro: Not following SKIN: Exposed skin with no rash, Normal in color Microbiology Date/Time Source Procedure Growth Status 06/06/20 16:30 Blood Blood Culture - Preliminary NO GROWTH AFTER 48 HOURS Resulted 06/06/20 13:00 Blood Blood Culture - Preliminary NO GROWTH AFTER 48 HOURS Resulted Laboratory Tests Test 06/08/20 11:10 06/09/20 03:00 POC Whole Blood Glucose 98 MG/DL (74-106) White Blood Count 8.6 K/UL (4.8-10.8) Red Blood Count 2.98 M/UL (4.20-5.40) L Hemoglobin 9.3 G/DL (12.0-16.0) L Hematocrit 26.9 % (37.0-47.0) L Mean Corpuscular Volume 90 FL (80-99) Mean Corpuscular Hemoglobin 31.3 PG (27.0-31.0) H Mean Corpuscular Hemoglobin Concent 34.6 G/DL (32.0-36.0) Red Cell Distribution Width 13.3 % (11.6-14.8) Platelet Count 264 K/UL (150-450) Mean Platelet Volume 7.3 FL (6.5-10.1) Neutrophils (%) (Auto) 79.7 % (45.0-75.0) H Lymphocytes (%) (Auto) 12.2 % (20.0-45.0) L Monocytes (%) (Auto) 5.6 % (1.0-10.0) Eosinophils (%) (Auto) 1.1 % (0.0-3.0) Basophils (%) (Auto) 1.5 % (0.0-2.0) Sodium Level 141 MMOL/L (136-145) Potassium Level 3.9 MMOL/L (3.5-5.1) Chloride Level 106 MMOL/L (98-107) Carbon Dioxide Level 32 MMOL/L (21-32) Anion Gap 3 mmol/L (5-15) L Blood Urea Nitrogen 19 mg/dL (7-18) H Creatinine 0.5 MG/DL (0.55-1.30) L Estimat Glomerular Filtration Rate > 60 mL/min (>60) Glucose Level 85 MG/DL (74-106) Calcium Level 9.7 MG/DL (8.5-10.1) Phosphorus Level 2.5 MG/DL (2.5-4.9) Magnesium Level 2.0 MG/DL (1.8-2.4) Current Medications Medications (Trade) Dose Ordered Sig/Morgan Route PRN Reason Start Time Stop Time Status Last Admin Dose Admin Acetaminophen (Tylenol) 650 mg Q4H PRN GT Temp >100.5 05/16/20 06:15 06/15/20 06:14 05/31/20 13:15 Acetaminophen (Tylenol) 650 mg Q4H PRN RECTAL Temp >100.5 05/16/20 19:45 06/15/20 19:44 05/17/20 18:30 Atropine Sulfate (Atropine 0.4mg/ ml) 0.4 mg Q2HR PRN IVP HR <45 05/29/20 21:30 06/28/20 19:24 05/30/20 22:39 Ceftolozane/ Tazobactam 1.5 gm/ Sodium Chloride 110 ml @ 110 mls/hr Q8H IV 06/06/20 10:00 06/11/20 23:59 06/09/20 10:11 Chlorhexidine Gluconate (Lilliam-Hex 2%) 1 applic DAILY@2000 TOPIC 06/08/20 20:00 09/06/20 19:59 06/08/20 21:07 Docusate Sodium (Colace) 100 mg TWICE A DAY GT 06/07/20 18:00 07/07/20 17:59 06/09/20 09:56 Enoxaparin Sodium (Lovenox) 60 mg EVERY 12 HOURS SUBQ 06/03/20 21:00 09/01/20 20:59 06/09/20 10:01 Fludrocortisone Acetate (Florinef) 0.1 mg DAILY ORAL 06/05/20 09:00 07/05/20 08:59 06/09/20 09:56 Pantoprazole (Protonix) 40 mg DAILY IV 05/15/20 09:00 06/14/20 08:59 06/09/20 09:56 Polyethylene Glycol (Miralax) 17 gm BEDTIME GT 06/07/20 21:00 07/07/20 20:59 06/08/20 21:07 Sodium Chloride 1,000 ml @ 50 mls/hr Q20H IV 05/15/20 06:45 06/14/20 06:44 06/09/20 10:12 Zinc Oxide (Zinc Oxide) 1 applic TIDPRN PRN TOPIC Abdominal cramps 05/20/20 13:00 08/18/20 12:59 Erasto Romeo MD Jun 09, 2020 10:23
--- NOTE | 2020-06-09 11:42 | General Progress Note ---
Subjective ROS Limited/Unobtainable: No Allergies: Coded Allergies: DIVALPROEX SODIUM (Verified Allergy, Unknown, 05/14/20) PENICILLINS (Verified Allergy, Unknown, 05/14/20) Objective Last 24 Hour Vital Signs Date Time Temp Pulse Resp B/P (MAP) Pulse Ox O2 Delivery O2 Flow Rate FiO2 06/09/20 08:00 40 06/09/20 08:00 64 06/09/20 08:00 98.4 63 14 101/56 (71) 100 06/09/20 08:00 Mechanical Ventilator 06/09/20 07:05 61 12 40 06/09/20 04:00 40 06/09/20 04:00 Mechanical Ventilator 06/09/20 04:00 98.4 56 12 99/57 (71) 99 06/09/20 03:30 59 06/09/20 03:15 62 13 40 06/09/20 00:00 98.2 71 15 119/73 (88) 100 06/09/20 00:00 Mechanical Ventilator 06/08/20 23:29 73 06/08/20 23:19 70 17 40 06/08/20 20:00 Mechanical Ventilator 06/08/20 20:00 98.9 76 15 121/68 (85) 99 06/08/20 20:00 40 06/08/20 19:02 78 06/08/20 19:00 85 14 40 06/08/20 16:00 68 06/08/20 16:00 98.6 73 20 126/68 (87) 100 06/08/20 16:00 Mechanical Ventilator 06/08/20 16:00 40 06/08/20 15:05 71 19 40 06/08/20 12:00 40 06/08/20 12:00 Mechanical Ventilator 06/08/20 12:00 68 06/08/20 12:00 98.1 67 13 103/61 (75) 100 Intake and Output 06/08/20 06/09/20 19:00 07:00 Intake Total 1815 ml 1580 ml Output Total 1600 ml 1500 ml Balance 215 ml 80 ml Free Water 210 ml 40 ml IV Total 885 ml 760 ml Tube Feeding 720 ml 780 ml Output Urine Total 1600 ml 1500 ml # Bowel Movements 3 2 Laboratory Tests 06/09/20 03:00: White Blood Count 8.6, Red Blood Count 2.98L, Hemoglobin 9.3L, Hematocrit 26.9L, Mean Corpuscular Volume 90, Mean Corpuscular Hemoglobin 31.3H, Mean Corpuscular Hemoglobin Concent 34.6, Red Cell Distribution Width 13.3, Platelet Count 264, Mean Platelet Volume 7.3, Neutrophils (%) (Auto) 79.7H, Lymphocytes (%) (Auto) 12.2L, Monocytes (%) (Auto) 5.6, Eosinophils (%) (Auto) 1.1, Basophils (%) (Auto) 1.5, Sodium Level 141, Potassium Level 3.9, Chloride Level 106, Carbon Dioxide Level 32, Anion Gap 3L, Blood Urea Nitrogen 19H, Creatinine 0.5L, Estimat Glomerular Filtration Rate > 60, Glucose Level 85, Calcium Level 9.7, Phosphorus Level 2.5, Magnesium Level 2.0 Height (Feet): 5 Height (Inches): 5.00 Weight (Pounds): 142 General Appearance: lethargic EENT: normal ENT inspection Neck: supple Cardiovascular: normal rate Respiratory/Chest: decreased breath sounds Abdomen: hypoactive bowel sounds Extremities: non-tender Assessment/Plan Status: stable Assessment/Plan: 1. History of CVA. 2. Dementia. 3. Dysphagia with G-tube. 4. Cachexia. 5. Diabetes. 6. Pressure ulcers. 7. Hypothyroidism. 8. Legal blindness. 9. Currently COVID positive. s/p peg and trach GTF monitor for residuals fu labs supportive care Jhon Matos MD Jun 09, 2020 11:42
[2020-06-09] MEDS ORDERED: 1/2 NS 1000ml IV ONE (11:48)
[2020-06-09] MEDS ORDERED: Tubing IV Secondary IV ONE (11:48)
[2020-06-09] MEDS ORDERED: NS 275ml ONE (11:48)
[2020-06-09] MEDS ORDERED: Tubing Blood Filter IV ONE (11:48)
[2020-06-09 12:00] VITALS: BP 105/57
--- NOTE | 2020-06-09 12:07 | Surgery Progress Note ---
Surgery Progress Note Subjective Procedure Performed trach egd with peg Symptoms: improved, tolerating diet, passing flatus, BM Objective Last 24 Hour Vital Signs Date Time Temp Pulse Resp B/P (MAP) Pulse Ox O2 Delivery O2 Flow Rate FiO2 06/09/20 08:00 40 06/09/20 08:00 64 06/09/20 08:00 98.4 63 14 101/56 (71) 100 06/09/20 08:00 Mechanical Ventilator 06/09/20 07:05 61 12 40 06/09/20 04:00 40 06/09/20 04:00 Mechanical Ventilator 06/09/20 04:00 98.4 56 12 99/57 (71) 99 06/09/20 03:30 59 06/09/20 03:15 62 13 40 06/09/20 00:00 98.2 71 15 119/73 (88) 100 06/09/20 00:00 Mechanical Ventilator 06/08/20 23:29 73 06/08/20 23:19 70 17 40 06/08/20 20:00 Mechanical Ventilator 06/08/20 20:00 98.9 76 15 121/68 (85) 99 06/08/20 20:00 40 06/08/20 19:02 78 06/08/20 19:00 85 14 40 06/08/20 16:00 68 06/08/20 16:00 98.6 73 20 126/68 (87) 100 06/08/20 16:00 Mechanical Ventilator 06/08/20 16:00 40 06/08/20 15:05 71 19 40 I&O Intake and Output 06/08/20 06/09/20 19:00 07:00 Intake Total 1815 ml 1580 ml Output Total 1600 ml 1500 ml Balance 215 ml 80 ml Free Water 210 ml 40 ml IV Total 885 ml 760 ml Tube Feeding 720 ml 780 ml Output Urine Total 1600 ml 1500 ml # Bowel Movements 3 2 Dressing: other Wound: other Cardiovascular: RSR Respiratory: decreased breath sounds Abdomen: soft, non-tender, present bowel sounds Extremities: no tenderness, no cyanosis Laboratory Tests Test 06/09/20 03:00 White Blood Count 8.6 K/UL (4.8-10.8) Red Blood Count 2.98 M/UL (4.20-5.40) L Hemoglobin 9.3 G/DL (12.0-16.0) L Hematocrit 26.9 % (37.0-47.0) L Mean Corpuscular Volume 90 FL (80-99) Mean Corpuscular Hemoglobin 31.3 PG (27.0-31.0) H Mean Corpuscular Hemoglobin Concent 34.6 G/DL (32.0-36.0) Red Cell Distribution Width 13.3 % (11.6-14.8) Platelet Count 264 K/UL (150-450) Mean Platelet Volume 7.3 FL (6.5-10.1) Neutrophils (%) (Auto) 79.7 % (45.0-75.0) H Lymphocytes (%) (Auto) 12.2 % (20.0-45.0) L Monocytes (%) (Auto) 5.6 % (1.0-10.0) Eosinophils (%) (Auto) 1.1 % (0.0-3.0) Basophils (%) (Auto) 1.5 % (0.0-2.0) Sodium Level 141 MMOL/L (136-145) Potassium Level 3.9 MMOL/L (3.5-5.1) Chloride Level 106 MMOL/L (98-107) Carbon Dioxide Level 32 MMOL/L (21-32) Anion Gap 3 mmol/L (5-15) L Blood Urea Nitrogen 19 mg/dL (7-18) H Creatinine 0.5 MG/DL (0.55-1.30) L Estimat Glomerular Filtration Rate > 60 mL/min (>60) Glucose Level 85 MG/DL (74-106) Calcium Level 9.7 MG/DL (8.5-10.1) Phosphorus Level 2.5 MG/DL (2.5-4.9) Magnesium Level 2.0 MG/DL (1.8-2.4) Plan Problems: (1) Hypernatremia (2) Renal failure (3) Respiratory failure (4) Sepsis Assessment & Plan: COVID + leukocytosis anemia electrolytes abnormal on iv fluids renal input appreciated cxr noted abx as per ID will follow with recs Will likely need trach difficult weaning conservatorship working with case management social work to figure out goals of care s/p peg and trach improving much more comfortable Interim placement of orogastric tube, also documented on recent abdominal radiograph. Stable satisfactory position of endotracheal tube and right jugular central venous catheter. There is increased pleural fluid and likely left basilar consolidation/atelectasis. The right lung and pleural space remain clear. Impression: Increasing left pleural fluid and likely basilar consolidation/atelectasis. Interim orogastric intubation DAILY ESTIMATED NEEDS: Needs based on Pulmonary, DM, wounds 66.6kg 25-30 kcals/kg 7060-5810 total kcals 1.25-1.5 g protein/kg 83-100 g total protein 20-25 mL/kg 0191-1495 total fluid mLs NUTRITION DIAGNOSIS: Swallowing difficulty r/t dysphagia as evidenced by h/o CVA, pt is GT dep, currently ICU status, now intubated, off pressor support, GT feeds initiated. CURRENT TF:Glucerna 1.2 @45ml/hr ENTERAL NUTRITION RECOMMENDATIONS: As medically able: GLUCERNA 1.5 goal of 45ml/hr x24 hrs to provide 1080ml, 1620 kcal, 89g pro, 820ml free H2O -> as medically able without aspiration risk start Glucerna 1.5 @low rate 25ml/hr for 6 hrs. Advance as tolerated 10ml/hr q4-6 hrs to goal. - Flush per , HOB over 30 degrees. ---- If not hemodynamically stable, rec trophic feeds of 5-10ml/hr to maintain gut integrity. ADDITIONAL RECOMMENDATIONS: 1) Obtain an accurate calibrated bed scale wt 2) F/up w/ H&P 3) With active TF orders, add JASMYN BID for noted DTPI wounds 4) TF recs as above when off bipap and w/ hemodynamic stability -> Now intubated, off pressors, on GT feeds. he spleen size is normal. The gallbladder contains sludge. No stones. No wall thickening nor pericholecystic fluid. Common bile duct measures 4 mm in diameter. Small amount free fluid is seen adjacent to the liver and spleen Impression: Gallbladder sludge. Negative for dilated bile ducts Normal appearing liver and spleen Patient with respiratory failure intubated on support unable to wean safely. A tracheostomy in this case would be indicated and recommended. Patient is full code but conserved. Given her condition waiting a significant period of time is at high risk for her given the risk for extubation duration of tube and worsening with her ET tube. A trach would be functional manageable for her and recommended. Unfortunately waiting for the time. Would be advisable and discussed with the social workers case loader operator and medical teams. Lining Cementer as well. ICU team as well. We will proceed with tracheostomy in patient's best interest given her CODE STATUS and wishes and care plan. i have been asked by GI and medical teams to place PEG as well. after careful evaluation I agree with medical teams that patient would also benefit from feeding tube access. given her condition, Covid status, care plan, goals of care, will place peg at same time of trach to minimize exposure and OR time and limit procedure risks for patient. (5) Elevated d-dimer (6) COVID-19 Assessment & Plan: ++ (7) Pressure ulcer Assessment & Plan: Pt presented on admission with multiple Pressure injuri es.DTPI noted to R Buttocks (L)3.8cm x (W)3.4cm. Base of wound is purpuric,fluctuant with surrounding maroon and indurated borders. DTPI Upper L Buttocks(L)5.5cm x (W)4cm. Base of wound is maroon and indurated. Borders are irregular. Non-Blanchable erythema without induration/fluctuance L lower buttocks(L)4cm x (W)7cm. R and L heels are soft but blanchable. Erosion noted at peristomal GT site. Site is erythematous and excoriated. Small amt. sanguineous exudate. Tx.Plan: Apply Moisture Barrier Paste to Sacrum, R and L Buttocks. Cover each area with Optifoam drsg. Change every 3 days and prn. Apply Moisture Barrier Paste to R and L Ischial tuberosities with each incontinence care. Apply Cavilon Skin Barrier to both heels. Cover each heel and malleoli with Optifoam drsg. Change every 7 days and prn. Reposition at least every 2hours or as tolerated. Off-load heels with pillow. APM/DARIN Mattress overlay. Apply Zinc Oxide Paste TID to GT site. Leave open to Air. (8) Dementia (9) CVA (cerebral vascular accident) (10) T2DM (type 2 diabetes mellitus) (11) Gastrostomy present (12) COVID-19 (13) Rapid atrial fibrillation Paul Garcia Jun 09, 2020 12:07
--- NOTE | 2020-06-09 15:30 | Cardiac Electrophysiology PN ---
Assessment/Plan Assessment/Plan 1. [id number] myocardial infarction with peak troponin of 3.4 and down to 0.7 EKG shows Inferolateral ischemia Due to septic shock, DCCV and Renal failure. Echo had poor windows. 2. PAF with RVR. S/P DCCV 3 times No more fib or accelerated junctional rhythm. Off beta-ramakrishna or calcium-channel ramakrishna for bradycardia 3. S/P Septic shock. On antibiotic. Off Midodrine in view of bradycardia and on Florinef 0.1 mg daily 4. Bradycardia requiring Atropine x 3 on 05/30/20. Off Dopamine 5. Severe hypernatremia with sodium of 174, BUN of 131, creatinine 2.7 due to dehydration. Improved. Cr 0.5 now 6. Dysphagia, status post PEG replacement per Dr Matos 7. History of CVA and dementia. 8. Respiratory failure, S/P Tracheostomy by Dr. Garcia 06/01/20 KIMMY RN Change Right IJ to PICC line pending Subjective Subjective In SDU from ICU in SR with no atrial fib but had bradycardia and received atropine 3 times on 05/31/20 S/P Trach and PEG on 06/02/20. ECG 06/02/20 showed inferolateral ischemia Had emilia in 50s. On 40% Fio2 and AC 12 Had 4 positive Covid and last one was negative. Off isolation Objective Last 24 Hour Vital Signs Date Time Temp Pulse Resp B/P (MAP) Pulse Ox O2 Delivery O2 Flow Rate FiO2 06/09/20 14:50 57 12 40 06/09/20 10:45 53 12 40 06/09/20 09:00 100 06/09/20 08:00 40 06/09/20 08:00 64 06/09/20 08:00 98.4 63 14 101/56 (71) 100 06/09/20 08:00 Mechanical Ventilator 06/09/20 07:05 61 12 40 06/09/20 04:00 40 06/09/20 04:00 Mechanical Ventilator 06/09/20 04:00 98.4 56 12 99/57 (71) 99 06/09/20 03:30 59 06/09/20 03:15 62 13 40 06/09/20 00:00 98.2 71 15 119/73 (88) 100 06/09/20 00:00 Mechanical Ventilator 9/30/20 23:29 73 06/08/20 23:19 70 17 40 06/08/20 20:00 Mechanical Ventilator 06/08/20 20:00 98.9 76 15 121/68 (85) 99 06/08/20 20:00 40 06/08/20 19:02 78 06/08/20 19:00 85 14 40 06/08/20 16:00 68 06/08/20 16:00 98.6 73 20 126/68 (87) 100 06/08/20 16:00 Mechanical Ventilator 06/08/20 16:00 40 Intake and Output 06/08/20 06/09/20 19:00 07:00 Intake Total 1815 ml 1580 ml Output Total 1600 ml 1500 ml Balance 215 ml 80 ml Free Water 210 ml 40 ml IV Total 885 ml 760 ml Tube Feeding 720 ml 780 ml Output Urine Total 1600 ml 1500 ml # Bowel Movements 3 2 Laboratory Tests Test 06/09/20 03:00 06/09/20 12:16 White Blood Count 8.6 K/UL (4.8-10.8) Red Blood Count 2.98 M/UL (4.20-5.40) L Hemoglobin 9.3 G/DL (12.0-16.0) L Hematocrit 26.9 % (37.0-47.0) L Mean Corpuscular Volume 90 FL (80-99) Mean Corpuscular Hemoglobin 31.3 PG (27.0-31.0) H Mean Corpuscular Hemoglobin Concent 34.6 G/DL (32.0-36.0) Red Cell Distribution Width 13.3 % (11.6-14.8) Platelet Count 264 K/UL (150-450) Mean Platelet Volume 7.3 FL (6.5-10.1) Neutrophils (%) (Auto) 79.7 % (45.0-75.0) H Lymphocytes (%) (Auto) 12.2 % (20.0-45.0) L Monocytes (%) (Auto) 5.6 % (1.0-10.0) Eosinophils (%) (Auto) 1.1 % (0.0-3.0) Basophils (%) (Auto) 1.5 % (0.0-2.0) Sodium Level 141 MMOL/L (136-145) Potassium Level 3.9 MMOL/L (3.5-5.1) Chloride Level 106 MMOL/L (98-107) Carbon Dioxide Level 32 MMOL/L (21-32) Anion Gap 3 mmol/L (5-15) L Blood Urea Nitrogen 19 mg/dL (7-18) H Creatinine 0.5 MG/DL (0.55-1.30) L Estimat Glomerular Filtration Rate > 60 mL/min (>60) Glucose Level 85 MG/DL (74-106) Calcium Level 9.7 MG/DL (8.5-10.1) Phosphorus Level 2.5 MG/DL (2.5-4.9) Magnesium Level 2.0 MG/DL (1.8-2.4) POC Whole Blood Glucose 116 MG/DL (74-106) H Microbiology Date/Time Source Procedure Growth Status 06/06/20 16:30 Blood Blood Culture - Preliminary NO GROWTH AFTER 48 HOURS Resulted Objective HEAD AND NECK: No JVD. Tracheostomy in place. LUNGS: Coarse rhonchi. CARDIOVASCULAR: Regular S1 and S2 with no gallop. ABDOMEN: Soft. G-tube site in place EXTREMITIES: No pitting edema. Norman Morillo MD Jun 09, 2020 15:30
--- NOTE | 2020-06-09 15:34 | General Progress Note ---
Subjective Date patient seen: Jun 09, 2020 ROS Limited/Unobtainable: No Allergies: Coded Allergies: DIVALPROEX SODIUM (Verified Allergy, Unknown, 05/14/20) PENICILLINS (Verified Allergy, Unknown, 05/14/20) Subjective Non verbal, tacheostomy and PEG in place, she is noted to be grimacing. SHE IS OFF DOPAMINE since 06/04 Transferred to [facility] 06/05 Objective Last 24 Hour Vital Signs Date Time Temp Pulse Resp B/P (MAP) Pulse Ox O2 Delivery O2 Flow Rate FiO2 06/09/20 14:50 57 12 40 06/09/20 10:45 53 12 40 06/09/20 09:00 100 06/09/20 08:00 40 06/09/20 08:00 64 06/09/20 08:00 98.4 63 14 101/56 (71) 100 06/09/20 08:00 Mechanical Ventilator 06/09/20 07:05 61 12 40 06/09/20 04:00 40 06/09/20 04:00 Mechanical Ventilator 06/09/20 04:00 98.4 56 12 99/57 (71) 99 06/09/20 03:30 59 06/09/20 03:15 62 13 40 06/09/20 00:00 98.2 71 15 119/73 (88) 100 06/09/20 00:00 Mechanical Ventilator 06/08/20 23:29 73 06/08/20 23:19 70 17 40 06/08/20 20:00 Mechanical Ventilator 06/08/20 20:00 98.9 76 15 121/68 (85) 99 06/08/20 20:00 40 06/08/20 19:02 78 06/08/20 19:00 85 14 40 06/08/20 16:00 68 06/08/20 16:00 98.6 73 20 126/68 (87) 100 06/08/20 16:00 Mechanical Ventilator 06/08/20 16:00 40 Intake and Output 06/08/20 06/09/20 19:00 07:00 Intake Total 1815 ml 1580 ml Output Total 1600 ml 1500 ml Balance 215 ml 80 ml Free Water 210 ml 40 ml IV Total 885 ml 760 ml Tube Feeding 720 ml 780 ml Output Urine Total 1600 ml 1500 ml # Bowel Movements 3 2 Laboratory Tests 06/09/20 03:00: White Blood Count 8.6, Red Blood Count 2.98L, Hemoglobin 9.3L, Hematocrit 26.9L, Mean Corpuscular Volume 90, Mean Corpuscular Hemoglobin 31.3H, Mean Corpuscular Hemoglobin Concent 34.6, Red Cell Distribution Width 13.3, Platelet Count 264, Mean Platelet Volume 7.3, Neutrophils (%) (Auto) 79.7H, Lymphocytes (%) (Auto) 12.2L, Monocytes (%) (Auto) 5.6, Eosinophils (%) (Auto) 1.1, Basophils (%) (Auto) 1.5, Sodium Level 141, Potassium Level 3.9, Chloride Level 106, Carbon Dioxide Level 32, Anion Gap 3L, Blood Urea Nitrogen 19H, Creatinine 0.5L, Estimat Glomerular Filtration Rate > 60, Glucose Level 85, Calcium Level 9.7, Phosphorus Level 2.5, Magnesium Level 2.0 06/09/20 12:16: POC Whole Blood Glucose 116H Height (Feet): 5 Height (Inches): 5.00 Weight (Pounds): 142 General Appearance: WD/WN EENT: other - trach Cardiovascular: normal rate Respiratory/Chest: decreased breath sounds Abdomen: other - peg Genitourinary/Rectal: other - bellamy Neurologic: negative 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 # Sepsis with element of cardiogenic shock Etiology COVID 19 vs UTI vs bacteremia / contaminant and NSTEMI Gram positive bacteremia- contaminant; recurrent -05/14 Bcx 09/12 S. haemolyticus; 05/17 Bcx Neg -05/31 Bcx 09/10 P.a -06/01 Bcx Neg -06/04 Bcx GNR Pseudomona with S to Colistin and Polymixin, I to Ceftazidime -06/06 BCx - NGR Sputum Cx 05/25 with Pseudomonas. Colonizer and recent completion of 14 day treatment with Meropenem U cx 05/14 Proteus Mirabillis Meropenem 14 days completed Vancomycin stopped stopped Cefepime Dexamethasone 10 day course completed Leukocytosis improved. Monitor clinically for now and OFF antibiotics per ID COVID NEGATIVE x 2 05/25 and 05/26 ID Director Of Intelligence - Started Zerbaxa DAY 5 for MDR PsA bacteremia, if worsening can try double coverage w/ colistin or polyB but overall slightly stable currently - FINAL PLAN per ID for length of therapy ( 14 day course needed ) until 06/18/20 and will NEED follow up blood culture on 06/25/20 - SNF updated and UNABLE TO TAKE THE PATIENT ON Zerbaxa can be given - Remove IJ line and place Mid line or PICC tomorrow. 2 MD consent signed with Dr. Romeo from ID. Conservator was updated by RN and no response obtained. # Acute respiratory failure Intubated. Self extubated 05/27 and re intubated by ED MD successfully. ICU care appreciated Dr. Rock following Ventilator management per ICU-pulmonary FiO2 40 % today. T piece. Medically tracheostomy was needed and life saving procedure as she is not tolerating wean off. Overall, her quality of life will not improve from prior baseline with advanced dementia. Will need permanent ventilator support via tracheostomy and subacute level of care. Critical care attending, Surgery and GI attendings notified to plan PEG and TRACH as medically indicated and completed 06/02/20 # SVT vs A. Flutter s/p DC x 3 # NSTEMI HR is controlled in the 100 range and tolerating Digoxin Vasopressors in place Levophed at [address] Morillo requested and TTE requested and poor window. Troponin 3.4 now 0.7 EKG 05/17 NSR, stable. Inferior wall ischemia # AG metabolic acidosis Ddx lactic acidosis Improved. # Hyperglycemia r/o DKA ABG and Ketones negative Endocrine consult with Dr. Shelley IV insulin gtt stopped and in SQ insulin coverage now # Hypernatremia resolved Improving Monitor BMP # COVID 19 Positive on admission, now NEGATIVE as of 05/25/20 On Dexamethasone completed 10 day course Contact and droplet isolation # Dysphagia PEG REMOVED 05/16 Carlo Vargas consulted NGT placed and Tube feeds started 05/18 and being tolerated at 45 cc hr Glucerna 1.2 # Severe protein caloric malnutrition with Albumin 1.5 RD follow up # Thrombocytopenia Platelets down from 80 K to 64 K to 66 K ( OFF Heparin ) and improved to normal range. 05/17 dc heparin, use SCD, order US Liver, HIT Ab, HIV negative Monitor carefully as Lovenox was restarted 06/03 for DVT # Newly detected lower extremity DVT HOLD off anticoagulation as tracheostomy and PEG done 06/[address] Garcia and agreed to start anticoagulation therapy for DVT Lovenox at 1 mg Kg SQ q 12 hr started 06/03 PM # Hypokalemia # Hypophosphatemia Replace as needed Monitor in AM # Anemia Etiology likely secondary to multiple blood draws vs RAULITO vs less likely GIB FOBT pending. iron studies SHOW IRON DEFICIENCY. ordered IV iron x 1 only Trend Hb and PRN PRBC if Hb less than 8, 1 unit 06/06 Hb 9 range now # Dementia Baseline #DISPOSITION SNF subacute and NEED TO APPROVE Zerbaxa until 06/18/20 as is the ONLY good antibiotic choice per blood cx sensitivities. # FULL CODE SW follow up to reach out to DPOA and consider change in code status due to high morbidity and risk of inpatient mortality. Paperwork completed for superior court of the [facility] for request of tracheostomy and gastrostomy placement due to medical need on 05/26/20 Bioethic consult requested and spoke with Dr. Hung from ethics and I agree with his assessment that the patient quality of life will NOT IMPROVE with tracheostomy and replacement of PEG. The patient is very limited due to her underlying dementia and now unable to wean off the ventilator. SHE HAD THE NEED TO GET A TRACHEOSTOMY and PEG was replaced 06/01/[address] Garcia DUE TO MEDICAL NECESSITY AND LIFE SAVING PROCEDURES. DR. ROCK AND I AGREED AND SIGNED [address] FORM. PENDING [address] DECISION REGARDING CODE STATUS. DNR IS MEDICALLY INDICATED. > 50 min spent in coordination of care and consultation with physicians and RN. Jessica Wade MD Jun 09, 2020 15:34
[2020-06-09 16:00] VITALS: BP 100/61
--- NOTE | 2020-06-09 17:08 | Pulmonology Progress Note ---
Subjective ROS Limited/Unobtainable: Yes Allergies: Coded Allergies: DIVALPROEX SODIUM (Verified Allergy, Unknown, 05/14/20) PENICILLINS (Verified Allergy, Unknown, 05/14/20) All Systems: reviewed and negative except above Subjective out of ICU Objective Last 24 Hour Vital Signs Date Time Temp Pulse Resp B/P (MAP) Pulse Ox O2 Delivery O2 Flow Rate FiO2 06/09/20 16:00 Mechanical Ventilator 06/09/20 16:00 40 06/09/20 16:00 98.4 57 12 100/61 (74) 100 06/09/20 14:50 57 12 40 06/09/20 12:00 40 06/09/20 12:00 55 06/09/20 12:00 97.9 62 13 105/57 (73) 98 06/09/20 12:00 Mechanical Ventilator 06/09/20 10:45 53 12 40 06/09/20 09:00 100 06/09/20 08:00 40 06/09/20 08:00 64 06/09/20 08:00 98.4 63 14 101/56 (71) 100 06/09/20 08:00 Mechanical Ventilator 06/09/20 07:05 61 12 40 06/09/20 04:00 40 06/09/20 04:00 Mechanical Ventilator 06/09/20 04:00 98.4 56 12 99/57 (71) 99 06/09/20 03:30 59 06/09/20 03:15 62 13 40 06/09/20 00:00 98.2 71 15 119/73 (88) 100 06/09/20 00:00 Mechanical Ventilator 06/08/20 23:29 73 06/08/20 23:19 70 17 40 06/08/20 20:00 Mechanical Ventilator 06/08/20 20:00 98.9 76 15 121/68 (85) 99 06/08/20 20:00 40 06/08/20 19:02 78 06/08/20 19:00 85 14 40 Intake and Output 06/08/20 06/09/20 19:00 07:00 Intake Total 1815 ml 1580 ml Output Total 1600 ml 1500 ml Balance 215 ml 80 ml Free Water 210 ml 40 ml IV Total 885 ml 760 ml Tube Feeding 720 ml 780 ml Output Urine Total 1600 ml 1500 ml # Bowel Movements 3 2 General Appearance: no acute distress HEENT: normocephalic, status post trach Respiratory: chest wall non-tender, lungs clear, other - trach in place Cardiovascular: normal peripheral pulses, normal rate, regular rhythm Abdomen: normal bowel sounds, soft, non tender, non distended, other - GT Extremities: no cyanosis, no clubbing, no edema Neurologic: unresponsiveness Laboratory Tests 06/09/20 03:00: White Blood Count 8.6, Red Blood Count 2.98L, Hemoglobin 9.3L, Hematocrit 26.9L, Mean Corpuscular Volume 90, Mean Corpuscular Hemoglobin 31.3H, Mean Corpuscular Hemoglobin Concent 34.6, Red Cell Distribution Width 13.3, Platelet Count 264, Mean Platelet Volume 7.3, Neutrophils (%) (Auto) 79.7H, Lymphocytes (%) (Auto) 12.2L, Monocytes (%) (Auto) 5.6, Eosinophils (%) (Auto) 1.1, Basophils (%) (Au to) 1.5, Sodium Level 141, Potassium Level 3.9, Chloride Level 106, Carbon Dioxide Level 32, Anion Gap 3L, Blood Urea Nitrogen 19H, Creatinine 0.5L, Estimat Glomerular Filtration Rate > 60, Glucose Level 85, Calcium Level 9.7, Phosphorus Level 2.5, Magnesium Level 2.0 06/09/20 12:16: POC Whole Blood Glucose 116H Current Medications Medications (Trade) Dose Ordered Sig/Morgan Route PRN Reason Start Time Stop Time Status Last Admin Dose Admin Acetaminophen (Tylenol) 650 mg Q4H PRN GT Temp >100.5 05/16/20 06:15 06/15/20 06:14 05/31/20 13:15 Acetaminophen (Tylenol) 650 mg Q4H PRN RECTAL Temp >100.5 05/16/20 19:45 06/15/20 19:44 05/17/20 18:30 Atropine Sulfate (Atropine 0.4mg/ ml) 0.4 mg Q2HR PRN IVP HR <45 05/29/20 21:30 06/28/20 19:24 05/30/20 22:39 Ceftolozane/ Tazobactam 1.5 gm/ Sodium Chloride 110 ml @ 110 mls/hr Q8H IV 06/06/20 10:00 06/11/20 23:59 06/09/20 10:11 Chlorhexidine Gluconate (Lilliam-Hex 2%) 1 applic DAILY@1999 TOPIC 06/08/20 20:00 09/06/20 19:59 06/08/20 21:07 Docusate Sodium (Colace) 100 mg TWICE A DAY GT 06/07/20 18:00 07/07/20 17:59 06/09/20 09:56 Enoxaparin Sodium (Lovenox) 60 mg EVERY 12 HOURS SUBQ 06/03/20 21:00 09/01/20 20:59 06/09/20 10:01 Fludrocortisone Acetate (Florinef) 0.1 mg DAILY ORAL 06/05/20 09:00 07/05/20 08:59 06/09/20 09:56 Pantoprazole (Protonix) 40 mg DAILY IV 05/15/20 09:00 06/14/20 08:59 06/09/20 09:56 Polyethylene Glycol (Miralax) 17 gm BEDTIME GT 06/07/20 21:00 07/07/20 20:59 06/08/20 21:07 Sodium Chloride 1,000 ml @ 50 mls/hr Q20H IV 05/15/20 06:45 06/14/20 06:44 06/09/20 10:12 Zinc Oxide (Zinc Oxide) 1 applic TIDPRN PRN TOPIC Abdominal cramps 05/20/20 13:00 08/18/20 12:59 Assessment/Plan Assessment/Plan IMPRESSION: 1. Acute respiratory failure. 2. Diabetes mellitus with hyperglycemia. 3. Septic shock. 4. Chronic G-tube. 5. Decubitus. 6. History of CHF. 7. Tracheostomy 8. severe PCM 9. pleural effusions 10. atelectasis DISCUSSION: monitor vent setting and adjust Continue fluids and antibiotics. S/p trach- monitor care wean as able On 40% FiO2 DVT and GI prophylaxis. nutrition and protein replacement Respiratory precautions impression, plan, and exam edited and reviewed in detail care discussed with Hung Kelly MD Jun 09, 2020 17:08
--- NOTE | 2020-06-09 19:28 | NUR ---
HAND-OFF: Report given to .EMERITA RUIZ.
--- NOTE | 2020-06-09 19:30 | NUR ---
NURSE NOTES: Important Events on Shift: Received report from Abram Irwin RN. Pt in stable condition, no signs or symptoms of pain or distress noted, FLACC 0. Patient Status: stable Diet: glucerna 1.2 @ 60ml/hr via GT Pending Orders: PICC line placement, consents conpleted by Ousmane and Nathaniel Wade. Pending Results/Labs: AM labs Pending MD notification: none Latest Vital Signs: Temperature 98.4 , Pulse 58 , B/P 100 /61 , Respiratory Rate 16 , O2 SAT 100 , Mechanical Ventilator, O2 Flow Rate 12.0 . Vital Sign Comment: stable EKG Rhythm: Sinus Bradycardia Rhythm change?: N Notified?: Chucky Pierce MD Response: No New Orders Received Latest Garza Fall Score: 70 Fall Risk: High Risk Safety Measures: Call light Within Reach, Bed Alarm Zone 2, Side Rails Side Rails x3, Bed position Low and Locked. Fall Precautions: yes Yellow Socks yes Yellow Gown yes Patient Fall Education yes
[2020-06-09 20:00] VITALS: BP 98/57
[2020-06-09] MEDS: Dyna-Hex 2% Top Sol 2oz TOPIC SCH (21:59)
[2020-06-09] MEDS: Miralax 17gm pkt GT SCH (22:00)
[2020-06-10] VITALS: BP 118/55
[2020-06-10] MEDS: TAZOBACTAM IV SCH ×3 (02:19→17:49)
[2020-06-10] MEDS: NS IV SCH ×3 (02:19→17:49)
[2020-06-10] MEDS: CEFTOLOZANE IV SCH ×3 (02:19→17:49)
[2020-06-10 04:02] VITALS: BP 101/56
[2020-06-10 04:43] LABS: BASOPHILS % (AUTO) 1.7 % (0.0-2.0); EOSINOPHILS % (AUTO) 1.3 % (0.0-3.0); HEMATOCRIT 26.8 % (37.0-47.0); HEMOGLOBIN 9.2 G/DL (12.0-16.0); LYMPHOCYTES % (AUTO) 15.8 % (20.0-45.0); MEAN CORPUSCULAR VOLUME 91 FL (80-99); MONOCYTES % (AUTO) 6.5 % (1.0-10.0); NEUTROPHILS % (AUTO) 74.7 % (45.0-75.0); PLATELET COUNT 288 K/UL (150-450); RED BLOOD COUNT 2.93 M/UL (4.20-5.40)
[2020-06-10 05:02] LABS: ANION GAP 4 mmol/L (5-15); BLOOD UREA NITROGEN 21 mg/dL (7-18); CALCIUM 9.2 MG/DL (8.5-10.1); CARBON DIOXIDE 32 MMOL/L (21-32); CHLORIDE 107 MMOL/L (98-107); CREATININE 0.5 MG/DL (0.55-1.30); POTASSIUM 3.9 MMOL/L (3.5-5.1); SODIUM 143 MMOL/L (136-145)
--- NOTE | 2020-06-10 06:51 | NUR ---
NURSE HAND-OFF REPORT: Important Events on Shift: None Patient Status: stable Diet: Glucerna 1.2 @ 60ml/hr Pending Orders: PICC line placement and dc of TLC Pending Results/Labs: BMP, CBC Pending MD notification: none Latest Vital Signs: Temperature 98.6 , Pulse 55 , B/P 101 /56 , Respiratory Rate 12 , O2 SAT 100 , Mechanical Ventilator, O2 Flow Rate 12.0 . Vital Sign Comment: stable EKG Rhythm: Sinus Bradycardia Rhythm change?: N Notified?: Chucky Pierce MD Response: No New Orders Received Latest Garza Fall Score: 70 Fall Risk: High Risk Safety Measures: Call light Within Reach, Bed Alarm Zone 1, Side Rails Side Rails x3, Bed position Low and Locked. Fall Precautions: yes Yellow Socks yes Yellow Gown yes Door Sign yes Patient Fall Education yes Report to be given to Raquel Pacheco RN
--- NOTE | 2020-06-10 07:21 | NUR ---
NURSE NOTES: Received report from SARA Abdi. Patient is resting in bed, in stable condition. No s/sx of SOB, breathing is even and unlabored, vent settings are as ordered. Patient is nonverbal, observed no presence of pain or discomfort at this time. Bed is in lowest position, brakes engaged. Call light is kept within easy reach. Patient is for PICC line placement today, consent signed by Dr. Wade and Dr. Romeo, per night RN report POA was unobtainable. Right triple lumen IJ to be removed by radiology. Will continue to monitor patient.
[2020-06-10 08:00] VITALS: BP 111/62
--- NOTE | 2020-06-10 08:30 | NUR ---
NURSE NOTES: French and this nurse assessed patient at bedside, patient noted with redness on bilateral upper arms, per Ednettie unable to perform PICC placement due to redness on bilateral upper arms. Inquired French if okay to place central line on left side of neck instead, French acknowledged and affirmed okay to insert central catheter on left side of neck. Contacted and informed Dr. Wade of situation, and recommendations, Dr. Wade acknowledged and ordered to insert central catheter on left side and removed right IJ and send catheter tip for culture once new IV access is established. Orders entered, noted, and carried out. Will continue to monitor patient.
--- NOTE | 2020-06-10 08:30 | Pulmonology Progress Note ---
Subjective ROS Limited/Unobtainable: Yes Allergies: Coded Allergies: DIVALPROEX SODIUM (Verified Allergy, Unknown, 05/14/20) PENICILLINS (Verified Allergy, Unknown, 05/14/20) All Systems: reviewed and negative except above Subjective [facility] care reviewed vent noted Objective Last 24 Hour Vital Signs Date Time Temp Pulse Resp B/P (MAP) Pulse Ox O2 Delivery O2 Flow Rate FiO2 06/10/20 07:36 62 13 40 06/10/20 04:03 40 06/10/20 04:02 98.6 55 12 101/56 (71) 100 06/10/20 04:01 Mechanical Ventilator 06/10/20 04:00 54 06/10/20 02:45 60 14 40 06/10/20 00:00 57 06/10/20 00:00 Mechanical Ventilator 06/10/20 00:00 98.3 56 12 118/55 (76) 100 06/10/20 00:00 40 06/09/20 23:10 50 12 40 06/09/20 20:00 97.9 57 14 98/57 (71) 100 06/09/20 20:00 Mechanical Ventilator 06/09/20 19:43 58 06/09/20 19:20 58 16 40 06/09/20 16:00 Mechanical Ventilator 06/09/20 16:00 40 06/09/20 16:00 98.4 57 12 100/61 (74) 100 06/09/20 16:00 54 06/09/20 14:50 57 12 40 06/09/20 12:00 40 06/09/20 12:00 55 06/09/20 12:00 97.9 62 13 105/57 (73) 98 06/09/20 12:00 Mechanical Ventilator 06/09/20 10:45 53 12 40 06/09/20 09:00 100 Intake and Output 06/09/20 06/10/20 19:00 07:00 Intake Total 1120 ml 960 ml Output Total 1400 ml 1300 ml Balance -280 ml -340 ml Free Water 150 ml 100 ml IV Total 310 ml Tube Feeding 660 ml 660 ml Blood Product 200 ml Output Urine Total 1400 ml 1300 ml General Appearance: no acute distress HEENT: normocephalic, status post trach Respiratory: chest wall non-tender, lungs clear, other - trach in place Cardiovascular: normal peripheral pulses, normal rate, regular rhythm Abdomen: normal bowel sounds, soft, non tender, non distended, other - GT Extremities: no cyanosis, no clubbing, no edema Neurologic: unresponsiveness Laboratory Tests 06/09/20 12:16: POC Whole Blood Glucose 116H 06/09/20 18:29: POC Whole Blood Glucose 102 06/10/20 02:50: White Blood Count 7.0, Red Blood Count 2.93L, Hemoglobin 9.2L, Hematocrit 26.8L, Mean Corpuscular Volume 91, Mean Corpuscular Hemoglobin 31.5H, Mean Corpuscular Hemoglobin Concent 34.5, Red Cell Distribution Width 14.0, Platelet Count 288, Mean Platelet Volume 8.0, Neutrophils (%) (Auto) 74.7, Lymphocytes (%) (Auto) 15.8L, Monocytes (%) (Auto) 6.5, Eosinophils (%) (Auto) 1.3, Basophils (%) (Auto) 1.7, Sodium Level 143, Potassium Level 3.9, Chloride Level 107, Carbon Dioxide Level 32, Anion Gap 4L, Blood Urea Nitrogen 21H, Creatinine 0.5L, Estimat Glomerular Filtration Rate > 60, Glucose Level 99, Calcium Level 9.2 Current Medications Medications (Trade) Dose Ordered Sig/Morgan Route PRN Reason Start Time Stop Time Status Last Admin Dose Admin Acetaminophen (Tylenol) 650 mg Q4H PRN GT Temp >100.5 05/16/20 06:15 06/15/20 06:14 05/31/20 13:15 Acetaminophen (Tylenol) 650 mg Q4H PRN RECTAL Temp >100.5 05/16/20 19:45 06/15/20 19:44 05/17/20 18:30 Atropine Sulfate (Atropine 0.4mg/ ml) 0.4 mg Q2HR PRN IVP HR <45 05/29/20 21:30 06/28/20 19:24 05/30/20 22:39 Ceftolozane/ Tazobactam 1.5 gm/ Sodium Chloride 110 ml @ 110 mls/hr Q8H IV 06/06/20 10:00 06/11/20 23:59 06/10/20 02:19 Chlorhexidine Gluconate (Lilliam-Hex 2%) 1 applic DAILY@2000 TOPIC 06/08/20 20:00 09/06/20 19:59 06/09/20 21:59 Docusate Sodium (Colace) 100 mg TWICE A DAY GT 06/07/20 18:00 07/07/20 17:59 06/09/20 17:51 Enoxaparin Sodium (Lovenox) 60 mg EVERY 12 HOURS SUBQ 06/03/20 21:00 09/01/20 20:59 06/09/20 10:01 Fludrocortisone Acetate (Florinef) 0.1 mg DAILY ORAL 06/05/20 09:00 07/05/20 08:59 06/09/20 09:56 Pantoprazole (Protonix) 40 mg DAILY IV 05/15/20 09:00 06/14/20 08:59 06/09/20 09:56 Polyethylene Glycol (Miralax) 17 gm BEDTIME GT 06/07/20 21:00 07/07/20 20:59 06/09/20 22:00 Sodium Chloride 1,000 ml @ 50 mls/hr Q20H IV 05/15/20 06:45 06/14/20 06:44 06/09/20 10:12 Zinc Oxide (Zinc Oxide) 1 applic TIDPRN PRN TOPIC Abdominal cramps 05/20/20 13:00 08/18/20 12:59 Assessment/Plan Assessment/Plan IMPRESSION: 1. Chronic respiratory failure. 2. Diabetes mellitus with hyperglycemia. 3. Septic shock. 4. Chronic G-tube. 5. Decubitus. 6. History of CHF. 7. Tracheostomy 8. severe PCM 9. pleural effusions 10. atelectasis DISCUSSION: monitor vent setting and adjust Continue fluids and antibiotics. S/p trach- monitor care wean as able On 40% FiO2 DVT and GI prophylaxis. nutrition and protein replacement Respiratory precautions wean if able nutrition monitor protein levels off load position change monitor in [facility] impression, plan, and exam edited and reviewed in detail care discussed with Hung Kelly MD Jun 10, 2020 08:30
[2020-06-10] MEDS: Docusate 100mg/10ml Liq GT SCH ×2 (08:51→17:48)
[2020-06-10] MEDS: Pantoprazole Inj IV SCH (08:51)
[2020-06-10] MEDS: Enoxaparin 60mg Inj SUBQ SCH ×2 (08:52→20:35)
--- NOTE | 2020-06-10 09:49 | General Progress Note ---
Subjective ROS Limited/Unobtainable: No Allergies: Coded Allergies: DIVALPROEX SODIUM (Verified Allergy, Unknown, 05/14/20) PENICILLINS (Verified Allergy, Unknown, 05/14/20) Objective Last 24 Hour Vital Signs Date Time Temp Pulse Resp B/P (MAP) Pulse Ox O2 Delivery O2 Flow Rate FiO2 06/10/20 07:36 62 13 40 06/10/20 04:03 40 06/10/20 04:02 98.6 55 12 101/56 (71) 100 06/10/20 04:01 Mechanical Ventilator 06/10/20 04:00 54 06/10/20 02:45 60 14 40 06/10/20 00:00 57 06/10/20 00:00 Mechanical Ventilator 06/10/20 00:00 98.3 56 12 118/55 (76) 100 06/10/20 00:00 40 06/09/20 23:10 50 12 40 06/09/20 20:00 97.9 57 14 98/57 (71) 100 06/09/20 20:00 Mechanical Ventilator 06/09/20 19:43 58 06/09/20 19:20 58 16 40 06/09/20 16:00 Mechanical Ventilator 06/09/20 16:00 40 06/09/20 16:00 98.4 57 12 100/61 (74) 100 06/09/20 16:00 54 06/09/20 14:50 57 12 40 06/09/20 12:00 40 06/09/20 12:00 55 06/09/20 12:00 97.9 62 13 105/57 (73) 98 06/09/20 12:00 Mechanical Ventilator 06/09/20 10:45 53 12 40 Intake and Output 06/09/20 06/10/20 19:00 07:00 Intake Total 1120 ml 960 ml Output Total 1400 ml 1300 ml Balance -280 ml -340 ml Free Water 150 ml 100 ml IV Total 310 ml Tube Feeding 660 ml 660 ml Blood Product 200 ml Output Urine Total 1400 ml 1300 ml Laboratory Tests 06/09/20 12:16: POC Whole Blood Glucose 116H 06/09/20 18:29: POC Whole Blood Glucose 102 06/10/20 02:50: White Blood Count 7.0, Red Blood Count 2.93L, Hemoglobin 9.2L, Hematocrit 26.8L, Mean Corpuscular Volume 91, Mean Corpuscular Hemoglobin 31.5H, Mean Corpuscular Hemoglobin Concent 34.5, Red Cell Distribution Width 14.0, Platelet Count 288, Mean Platelet Volume 8.0, Neutrophils (%) (Auto) 74.7, Lymphocytes (%) (Auto) 15.8L, Monocytes (%) (Auto) 6.5, Eosinophils (%) (Auto) 1.3, Basophils (%) (Auto) 1.7, Sodium Level 143, Potassium Level 3.9, Chloride Level 107, Carbon Dioxide Level 32, Anion Gap 4L, Blood Urea Nitrogen 21H, Creatinine 0.5L, Estimat Glomerular Filtration Rate > 60, Glucose Level 99, Calcium Level 9.2 Height (Feet): 5 Height (Inches): 5.00 Weight (Pounds): 142 General Appearance: no apparent distress EENT: normal ENT inspection Neck: supple Cardiovascular: normal rate Respiratory/Chest: decreased breath sounds Abdomen: hypoactive bowel sounds Extremities: non-tender Assessment/Plan Status: stable Assessment/Plan: 1. History of CVA. 2. Dementia. 3. Dysphagia with G-tube. 4. Cachexia. 5. Diabetes. 6. Pressure ulcers. 7. Hypothyroidism. 8. Legal blindness. 9. Currently COVID positive. s/p peg and trach GTF monitor for residuals fu labs supportive care Jhon Matos MD Jun 10, 2020 09:49
--- NOTE | 2020-06-10 09:57 | NUR ---
NURSE NOTES: Dr. Romeo at nurse station made aware that per radiology department unable to insert PICC on upper arms due to redness on bilateral upper arms. Dr. Romeo acknowledged and assessed patient. Deferred central line placement to radiology. Okay with PICC placement if radiology is okay to place PICC on upper arm, Dr. Romeo also okay with central line placement on neck area if upper arm PICC not okay with radiology. Dr. Romeo signed consent for central line placement due to conservator unavailable to for consent at this time. Per Dr. Romeo ordered to remove right IJ TLC once new line is established and send catheter tip for culture. Order entered, noted, and carried out. Will continue to monitor patient.
--- NOTE | 2020-06-10 10:30 | NUR ---
NURSE NOTES: Dr. Wade at nurse station seen and examined patient at bedside. Dr. Wade signed consent for central line placement, along with Dr. Romeo. Per Dr. Wade prefer PICC insertion on upper arms, but if radiology deems it not okay for PICC placement then Dr. Wade and Dr. Romeo okay with central line placement on left side neck area. Noted. Charge nurse made aware. Will continue to monitor patient.
--- NOTE | 2020-06-10 10:41 | General Progress Note ---
Subjective Date patient seen: Jun 10, 2020 Time patient seen: 10:00 ROS Limited/Unobtainable: Yes Allergies: Coded Allergies: DIVALPROEX SODIUM (Verified Allergy, Unknown, 05/14/20) PENICILLINS (Verified Allergy, Unknown, 05/14/20) All Systems: reviewed and negative except above Subjective Non verbal, tacheostomy and PEG in place, she is noted to be grimacing. SHE IS OFF DOPAMINE since 06/04 Transferred to [facility] 06/05 Objective Last 24 Hour Vital Signs Date Time Temp Pulse Resp B/P (MAP) Pulse Ox O2 Delivery O2 Flow Rate FiO2 06/10/20 08:00 40 06/10/20 08:00 97.6 62 12 111/62 (78) 100 06/10/20 08:00 Mechanical Ventilator 06/10/20 07:36 62 13 40 06/10/20 04:03 40 06/10/20 04:02 98.6 55 12 101/56 (71) 100 06/10/20 04:01 Mechanical Ventilator 06/10/20 04:00 54 06/10/20 02:45 60 14 40 06/10/20 00:00 57 06/10/20 00:00 Mechanical Ventilator 06/10/20 00:00 98.3 56 12 118/55 (76) 100 06/10/20 00:00 40 06/09/20 23:10 50 12 40 06/09/20 20:00 97.9 57 14 98/57 (71) 100 06/09/20 20:00 Mechanical Ventilator 06/09/20 19:43 58 06/09/20 19:20 58 16 40 06/09/20 16:00 Mechanical Ventilator 06/09/20 16:00 40 06/09/20 16:00 98.4 57 12 100/61 (74) 100 06/09/20 16:00 54 06/09/20 14:50 57 12 40 06/09/20 12:00 40 06/09/20 12:00 55 06/09/20 12:00 97.9 62 13 105/57 (73) 98 06/09/20 12:00 Mechanical Ventilator 06/09/20 10:45 53 12 40 Intake and Output 06/09/20 06/10/20 19:00 07:00 Intake Total 1120 ml 960 ml Output Total 1400 ml 1300 ml Balance -280 ml -340 ml Free Water 150 ml 100 ml IV Total 310 ml Tube Feeding 660 ml 660 ml Blood Product 200 ml Output Urine Total 1400 ml 1300 ml Laboratory Tests 06/09/20 12:16: POC Whole Blood Glucose 116H 06/09/20 18:29: POC Whole Blood Glucose 102 06/10/20 02:50: White Blood Count 7.0, Red Blood Count 2.93L, Hemoglobin 9.2L, Hematocrit 26.8L, Mean Corpuscular Volume 91, Mean Corpuscular Hemoglobin 31.5H, Mean Corpuscular Hemoglobin Concent 34.5, Red Cell Distribution Width 14.0, Platelet Count 288, Mean Platelet Volume 8.0, Neutrophils (%) (Auto) 74.7, Lymphocytes (%) (Auto) 15.8L, Monocytes (%) (Auto) 6.5, Eosinophils (%) (Auto) 1.3, Basophils (%) (Auto) 1.7, Sodium Level 143, Potassium Level 3.9, Chloride Level 107, Carbon Dioxide Level 32, Anion Gap 4L, Blood Urea Nitrogen 21H, Creatinine 0.5L, Estimat Glomerular Filtration Rate > 60, Glucose Level 99, Calcium Level 9.2 Height (Feet): 5 Height (Inches): 5.00 Weight (Pounds): 142 General Appearance: WD/WN EENT: PERRL/EOMI Neck: other - R IJ Respiratory/Chest: decreased breath sounds Abdomen: other - PEG Neurologic: academic intern II-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 # Sepsis with element of cardiogenic shock Etiology COVID 19 vs UTI vs bacteremia / contaminant and NSTEMI Gram positive bacteremia- contaminant; recurrent -05/14 Bcx 09/12 S. haemolyticus; 05/17 Bcx Neg -05/31 Bcx 09/10 P.a -06/01 Bcx Neg -06/04 Bcx GNR Pseudomona with S to Colistin and Polymixin, I to Ceftazidime -06/06 BCx - no growth Sputum Cx 05/25 with Pseudomonas. Colonizer and recent completion of 14 day treatment with Meropenem U cx 05/14 Proteus Mirabillis Meropenem 14 days completed Vancomycin stopped stopped Cefepime Dexamethasone 10 day course completed Leukocytosis improved. Monitor clinically for now and OFF antibiotics per ID COVID NEGATIVE x 2 05/25 and 05/26 ID Gear Shaper - Started Zerbaxa DAY6 for MDR PsA bacteremia, if worsening can try double coverage w/ colistin or polyB but overall slightly stable currently - FINAL PLAN per ID for length of therapy ( 14 day course needed ) until 06/18/20 and will NEED follow up blood culture on 06/25/20 - SNF updated and UNABLE TO TAKE THE PATIENT ON Zerbaxa due to cost. - Remove IJ line and tip culture. place new IJ or PICC per IR discretion. 2 MD consent signed with Dr. Romeo from ID. Conservator was updated by RN and no response obtained. # Acute respiratory failure Intubated. Self extubated 05/27 and re intubated by ED MD successfully. ICU care appreciated Dr. Rock following Ventilator management per ICU-pulmonary FiO2 40 % today. T piece. Medically tracheostomy was needed and life saving procedure as she is not tolerating wean off. Overall, her quality of life will not improve from prior baseline with advanced dementia. Will need permanent ventilator support via tracheostomy and subacute level of care. Critical care attending, Surgery and GI attendings notified to plan PEG and TRACH as medically indicated and completed 06/02/20 # SVT vs A. Flutter s/p DC x 3 # NSTEMI HR is controlled in the 100 range and tolerating Digoxin Vasopressors in place Levophed at [address] Morillo requested and TTE requested and poor window. Troponin 3.4 now 0.7 EKG 05/17 NSR, stable. Inferior wall ischemia # AG metabolic acidosis Ddx lactic acidosis Improved. # Hyperglycemia r/o DKA ABG and Ketones negative Endocrine consult with Dr. Shelley IV insulin gtt stopped and in SQ insulin coverage now # Hypernatremia resolved Improving Monitor BMP # COVID 19 Positive on admission, now NEGATIVE as of 05/25/20 On Dexamethasone completed 10 day course Contact and droplet isolation # Dysphagia PEG REMOVED 05/16 Carlo Vargas consulted NGT placed and Tube feeds started 05/18 and being tolerated at 45 cc hr Glucerna 1.2 # Severe protein caloric malnutrition with Albumin 1.5 RD follow up # Thrombocytopenia Platelets down from 80 K to 64 K to 66 K ( OFF Heparin ) and improved to normal range. 05/17 dc heparin, use SCD, order US Liver, HIT Ab, HIV negative Monitor carefully as Lovenox was restarted 06/03 for DVT # Newly detected lower extremity DVT HOLD off anticoagulation as tracheostomy and PEG done 06/[address] Garcia and agreed to start anticoagulation therapy for DVT Lovenox at 1 mg Kg SQ q 12 hr started 06/03 PM # Hypokalemia # Hypophosphatemia Replace as needed Monitor in AM # Anemia Etiology likely secondary to multiple blood draws vs RAULITO vs less likely GIB FOBT pending. iron studies SHOW IRON DEFICIENCY. ordered IV iron x 1 only Trend Hb and PRN PRBC if Hb less than 8, 1 unit 06/06 Hb 9 range now # Dementia Baseline #DISPOSITION SNF subacute and NEED TO APPROVE Zerbaxa until 06/18/20 as is the ONLY good antibiotic choice per blood cx sensitivities. # FULL CODE SW follow up to reach out to DPOA and consider change in code status due to high morbidity and risk of inpatient mortality. Paperwork completed for superior court of the [facility] for request of tracheostomy and gastrostomy placement due to medical need on 05/26/20 Bioethic consult requested and spoke with Dr. Hung from ethics and I agree with his assessment that the patient quality of life will NOT IMPROVE with tracheostomy and replacement of PEG. The patient is very limited due to her underlying dementia and now unable to wean off the ventilator. SHE HAD THE NEED TO GET A TRACHEOSTOMY and PEG was replaced 06/01/[address] Garcia DUE TO MEDICAL NECESSITY AND LIFE SAVING PROCEDURES. DR. ROCK AND I AGREED AND SIGNED [address] MD [address] FORM. PENDING [address] DECISION REGARDING CODE STATUS. DNR IS MEDICALLY INDICATED. WHIT SHAY FULL CODE BY PRIOR CONSERVATOR DECISION. > 50 min spent in coordination of care and consultation with physicians and RN. Jessica Wade MD Jun 10, 2020 10:41
--- NOTE | 2020-06-10 10:46 | Infectious Diseases Prog Note ---
Assessment/Plan 70 yo female with PMHx of Dementia, DM, CVA ( S/P PEG), COVID 19 infection and pressure ulcers. Septic Shock-combination cardiogenic and septic; -back on pressors, decreasing Gram positive bacteremia- contaminant; recurrent -05/14 Bcx 1/ S. haemolyticus; 05/17 Bcx Neg -05/31 Bcx 1/2 P.a -06/01 Bcx Neg -06/04 Bcx P.a MDR -06/06 BCx - Negative UTI, sp rx UA (+); ucx 10-20k P. mirabilis (S Ceftriaxone, Cefepime) PNA, superimposed bacterial, sp rx Recent COVID19 pna- now repeat neg x2 -05/27 CXR: Previously seen left lung atelectasis has nearly completely resolved. Retrocardiac atelectasis without or with some component of consolidation. Low lung volumes with bronchovascular crowding. -05/26 CXR: Complete opacification of the left hemithorax with mediastinal shift to the left likely due to complete atelectasis of the left lung perhaps from mucous plugging. rapid COVID PCR neg -05/25 sp cx MDR PsA (I Ceftazidime, Colistin, Polymixin B); suspect colonizer SARS-COV2 neg -05/24 SARS-COV2 pCR inconclusive -05/23 CXR: Worsening aeration with increasing hazy opacification of the left lung base which may related to increased layering pleural effusion and adjacent atelectasis/consolidation. -05/19 CXR: Increasing left pleural fluid and likely basilar consolidation/atelectasis. Interim orogastric intubation 05/16 CXR: Retrocardiac density may represent atelectasis versus infiltrate. CXR 05/14/20 showed Retrocardiac atelectasis/infiltrate with Pulmonary venous congestion. sp cx MDR E.coli (S Cefepime, Meropenem, Zosyn) Hx of COVID 19 - Bacteria secondary infection? Asp PNA? COVID 19 tested Pos [facility] - about 3 week CORRESPONDENCE TRANSCRIBER -still positive Rapid COVID PCR 05/14 Resp Fail Intuabted on Vent Leukocytosis; increased (sp steroids)- SP Fever; low grade ,recurrent -06/01 u/a wbc 10-15, nit neg, leuk +1 L femoral DVT EMA, SP SVT -sp cardioversion Hyperglycemia Elevated LFTs; resolving -Abd US: Gallbladder sludge. Negative for dilated bile ducts. Normal appearing liver and spleen. Trace ascites sp trach/peg 06/01 Dementia DM Hx CVA ( S/P PEG) pressure ulcers PLAN - Continue Zerbaxa #6/14 ( End date 06/18/20) for MDR PsA bacteremia, if worsening can try double coverage w/ colistin or polyB but overall slightly sta ble currently - Repeat Blood Cx Pending - Please repeat Blood Cx 1 week after stopping abx to assure clearance of bacteremia - Would recommend RIJ removal and placemant of Midline for abx. The lab is working on Zerbaxa and Avycaz Sensi - 06/03/20 SP Meropenem #2 - 06/02/20 SP Vancomycin #05/27 SP Meropenem #05/24 SP Decadron # - 05/19 SP IV Vancomcyin #6 - 05/17 SP Cefepime #4 - f/u Cultures - Monitor CBC and Temps -repeat covid neg x2 -f/u repeat cultures Thank you for consulting [facility]. Will continue to follow along with you. Discussed with RN and Pharmacy staff Subjective Allergies: Coded Allergies: DIVALPROEX SODIUM (Verified Allergy, Unknown, 05/14/20) PENICILLINS (Verified Allergy, Unknown, 05/14/20) Afebrile No Leukocytosis On vent 40% Left IJ to be places to day as patient with B/L Arm rashes at blood pressure cuff sites Objective Last 24 Hour Vital Signs Date Time Temp Pulse Resp B/P (MAP) Pulse Ox O2 Delivery O2 Flow Rate FiO2 06/10/20 08:00 40 06/10/20 08:00 97.6 62 12 111/62 (78) 100 06/10/20 08:00 Mechanical Ventilator 06/10/20 07:36 62 13 40 06/10/20 04:03 40 06/10/20 04:02 98.6 55 12 101/56 (71) 100 06/10/20 04:01 Mechanical Ventilator 06/10/20 04:00 54 06/10/20 02:45 60 14 40 06/10/20 00:00 57 06/10/20 00:00 Mechanical Ventilator 06/10/20 00:00 98.3 56 12 118/55 (76) 100 06/10/20 00:00 40 06/09/20 23:10 50 12 40 06/09/20 20:00 97.9 57 14 98/57 (71) 100 06/09/20 20:00 Mechanical Ventilator 06/09/20 19:43 58 06/09/20 19:20 58 16 40 06/09/20 16:00 Mechanical Ventilator 06/09/20 16:00 40 06/09/20 16:00 98.4 57 12 100/61 (74) 100 06/09/20 16:00 54 06/09/20 14:50 57 12 40 06/09/20 12:00 40 06/09/20 12:00 55 06/09/20 12:00 97.9 62 13 105/57 (73) 98 06/09/20 12:00 Mechanical Ventilator 06/09/20 10:45 53 12 40 Height (Feet): 5 Height (Inches): 5.00 Weight (Pounds): 142 GEN: NAD, On Vent HEENT: NCAT, MMM, Intubated, Right IJ Pulm: Equal rise and fall B/L ABD: Soft, ND, PEG (No e/p) Neuro: Not following SKIN: Exposed skin rash B/L upper arms at BP cuff site Laboratory Tests Test 06/09/20 12:16 06/09/20 18:29 06/10/20 02:50 POC Whole Blood Glucose 116 MG/DL (74-106) H 102 MG/DL (74-106) White Blood Count 7.0 K/UL (4.8-10.8) Red Blood Count 2.93 M/UL (4.20-5.40) L Hemoglobin 9.2 G/DL (12.0-16.0) L Hematocrit 26.8 % (37.0-47.0) L Mean Corpuscular Volume 91 FL (80-99) Mean Corpuscular Hemoglobin 31.5 PG (27.0-31.0) H Mean Corpuscular Hemoglobin Concent 34.5 G/DL (32.0-36.0) Red Cell Distribution Width 14.0 % (11.6-14.8) Platelet Count 288 K/UL (150-450) Mean Platelet Volume 8.0 FL (6.5-10.1) Neutrophils (%) (Auto) 74.7 % (45.0-75.0) Lymphocytes (%) (Auto) 15.8 % (20.0-45.0) L Monocytes (%) (Auto) 6.5 % (1.0-10.0) Eosinophils (%) (Auto) 1.3 % (0.0-3.0) Basophils (%) (Auto) 1.7 % (0.0-2.0) Sodium Level 143 MMOL/L (136-145) Potassium Level 3.9 MMOL/L (3.5-5.1) Chloride Level 107 MMOL/L (98-107) Carbon Dioxide Level 32 MMOL/L (21-32) Anion Gap 4 mmol/L (5-15) L Blood Urea Nitrogen 21 mg/dL (7-18) H Creatinine 0.5 MG/DL (0.55-1.30) L Estimat Glomerular Filtration Rate > 60 mL/min (>60) Glucose Level 99 MG/DL (74-106) Calcium Level 9.2 MG/DL (8.5-10.1) Current Medications Medications (Trade) Dose Ordered Sig/Morgan Route PRN Reason Start Time Stop Time Status Last Admin Dose Admin Acetaminophen (Tylenol) 650 mg Q4H PRN GT Temp >100.5 05/16/20 06:15 06/15/20 06:14 05/31/20 13:15 Acetaminophen (Tylenol) 650 mg Q4H PRN RECTAL Temp >100.5 05/16/20 19:45 06/15/20 19:44 05/17/20 18:30 Atropine Sulfate (Atropine 0.4mg/ ml) 0.4 mg Q2HR PRN IVP HR <45 05/29/20 21:30 06/28/20 19:24 05/30/20 22:39 Ceftolozane/ Tazobactam 1.5 gm/ Sodium Chloride 110 ml @ 110 mls/hr Q8H IV 06/06/20 10:00 06/11/20 23:59 06/10/20 10:36 Chlorhexidine Gluconate (Lilliam-Hex 2%) 1 applic DAILY@2000 TOPIC 06/08/20 20:00 09/06/20 19:59 06/09/20 21:59 Docusate Sodium (Colace) 100 mg TWICE A DAY GT 06/07/20 18:00 07/07/20 17:59 06/10/20 08:51 Enoxaparin Sodium (Lovenox) 60 mg EVERY 12 HOURS SUBQ 06/03/20 21:00 09/01/20 20:59 06/09/20 10:01 Fludrocortisone Acetate (Florinef) 0.1 mg DAILY ORAL 06/05/20 09:00 07/05/20 08:59 06/10/20 08:51 Pantoprazole (Protonix) 40 mg DAILY IV 05/15/20 09:00 06/14/20 08:59 06/10/20 08:51 Polyethylene Glycol (Miralax) 17 gm BEDTIME GT 06/07/20 21:00 07/07/20 20:59 06/09/20 22:00 Sodium Chloride 1,000 ml @ 50 mls/hr Q20H IV 05/15/20 06:45 06/14/20 06:44 06/09/20 10:12 Zinc Oxide (Zinc Oxide) 1 applic TIDPRN PRN TOPIC Abdominal cramps 05/20/20 13:00 08/18/20 12:59 Erasto Romeo MD Jun 10, 2020 10:46
--- NOTE | 2020-06-10 11:00 | NUR ---
NURSE NOTES: Dr. Garcia at nurse station, per Dr. Garcia can remove right IJ once new IV access is established, if not today, can remove right IJ tomorrow. Noted. Will continue to monitor patient.
--- NOTE | 2020-06-10 11:32 | Surgery Progress Note ---
Surgery Progress Note Subjective Procedure Performed trach egd with peg Additional Comments picc today will remove central line after comfortable trach okay peg okay Objective Last 24 Hour Vital Signs Date Time Temp Pulse Resp B/P (MAP) Pulse Ox O2 Delivery O2 Flow Rate FiO2 06/10/20 11:24 61 15 40 06/10/20 09:25 100 06/10/20 08:00 40 06/10/20 08:00 97.6 62 12 111/62 (78) 100 06/10/20 08:00 Mechanical Ventilator 06/10/20 07:36 62 13 40 06/10/20 07:30 52 06/10/20 04:03 40 06/10/20 04:02 98.6 55 12 101/56 (71) 100 06/10/20 04:01 Mechanical Ventilator 06/10/20 04:00 54 06/10/20 02:45 60 14 40 06/10/20 00:00 57 06/10/20 00:00 Mechanical Ventilator 06/10/20 00:00 98.3 56 12 118/55 (76) 100 06/10/20 00:00 40 06/09/20 23:10 50 12 40 06/09/20 20:00 97.9 57 14 98/57 (71) 100 06/09/20 20:00 Mechanical Ventilator 06/09/20 19:43 58 06/09/20 19:20 58 16 40 06/09/20 16:00 Mechanical Ventilator 06/09/20 16:00 40 06/09/20 16:00 98.4 57 12 100/61 (74) 100 06/09/20 16:00 54 06/09/20 14:50 57 12 40 06/09/20 12:00 40 06/09/20 12:00 55 06/09/20 12:00 97.9 62 13 105/57 (73) 98 06/09/20 12:00 Mechanical Ventilator I&O Intake and Output 06/09/20 06/10/20 19:00 07:00 Intake Total 1120 ml 960 ml Output Total 1400 ml 1300 ml Balance -280 ml -340 ml Free Water 150 ml 100 ml IV Total 310 ml Tube Feeding 660 ml 660 ml Blood Product 200 ml Output Urine Total 1400 ml 1300 ml Dressing: dry Wound: clean Cardiovascular: RSR Respiratory: clear, decreased breath sounds Abdomen: soft, non-tender, present bowel sounds Extremities: no edema, no tenderness, no cyanosis Laboratory Tests Test 06/09/20 12:16 06/09/20 18:29 06/10/20 02:50 POC Whole Blood Glucose 116 MG/DL (74-106) H 102 MG/DL (74-106) White Blood Count 7.0 K/UL (4.8-10.8) Red Blood Count 2.93 M/UL (4.20-5.40) L Hemoglobin 9.2 G/DL (12.0-16.0) L Hematocrit 26.8 % (37.0-47.0) L Mean Corpuscular Volume 91 FL (80-99) Mean Corpuscular Hemoglobin 31.5 PG (27.0-31.0) H Mean Corpuscular Hemoglobin Concent 34.5 G/DL (32.0-36.0) Red Cell Distribution Width 14.0 % (11.6-14.8) Platelet Count 288 K/UL (150-450) Mean Platelet Volume 8.0 FL (6.5-10.1) Neutrophils (%) (Auto) 74.7 % (45.0-75.0) Lymphocytes (%) (Auto) 15.8 % (20.0-45.0) L Monocytes (%) (Auto) 6.5 % (1.0-10.0) Eosinophils (%) (Auto) 1.3 % (0.0-3.0) Basophils (%) (Auto) 1.7 % (0.0-2.0) Sodium Level 143 MMOL/L (136-145) Potassium Level 3.9 MMOL/L (3.5-5.1) Chloride Level 107 MMOL/L (98-107) Carbon Dioxide Level 32 MMOL/L (21-32) Anion Gap 4 mmol/L (5-15) L Blood Urea Nitrogen 21 mg/dL (7-18) H Creatinine 0.5 MG/DL (0.55-1.30) L Estimat Glomerular Filtration Rate > 60 mL/min (>60) Glucose Level 99 MG/DL (74-106) Calcium Level 9.2 MG/DL (8.5-10.1) Plan Problems: (1) Hypernatremia (2) Renal failure (3) Respiratory failure (4) Sepsis Assessment & Plan: COVID + leukocytosis anemia electrolytes abnormal on iv fluids renal input appreciated cxr noted abx as per ID will follow with recs Will likely need trach difficult weaning conservatorship working with case management social work to figure out goals of care s/p peg and trach improving much more comfortable Interim placement of orogastric tube, also documented on recent abdominal radiograph. Stable satisfactory position of endotracheal tube and right jugular central venous catheter. There is increased pleural fluid and likely left basilar consolidation/atelectasis. The right lung and pleural space remain clear. Impression: Increasing left pleural fluid and likely basilar consolidation/atelectasis. Interim orogastric intubation DAILY ESTIMATED NEEDS: Needs based on Pulmonary, DM, wounds 66.6kg 25-30 kcals/kg 5680-9092 total kcals 1.25-1.5 g protein/kg 83-100 g total protein 20-25 mL/kg 5523-1741 total fluid mLs NUTRITION DIAGNOSIS: Swallowing difficulty r/t dysphagia as evidenced by h/o CVA, pt is GT dep, currently ICU status, now intubated, off pressor support, GT feeds initiated. CURRENT TF:Glucerna 1.2 @45ml/hr ENTERAL NUTRITION RECOMMENDATIONS: As medically able: GLUCERNA 1.5 goal of 45ml/hr x24 hrs to provide 1080ml, 1620 kcal, 89g pro, 820ml free H2O -> as medically able without aspiration risk start Glucerna 1.5 @low rate 25ml/hr for 6 hrs. Advance as tolerated 10ml/hr q4-6 hrs to goal. - Flush per MD, HOB over 30 degrees. ---- If not hemodynamically stable, rec trophic feeds of 5-10ml/hr to maintain gut integrity. ADDITIONAL RECOMMENDATIONS: 1) Obtain an accurate calibrated bed scale wt 2) F/up w/ H&P 3) With active TF orders, add JASMYN BID for noted DTPI wounds 4) TF recs as above when off bipap and w/ hemodynamic stability -> Now intubated, off pressors, on GT feeds. he spleen size is normal. The gallbladder contains sludge. No stones. No wall thickening nor pericholecystic fluid. Common bile duct measures 4 mm in diameter. Small amount free fluid is seen adjacent to the liver and spleen Impression: Gallbladder sludge. Negative for dilated bile ducts Normal appearing liver and spleen Patient with respiratory failure intubated on support unable to wean safely. A tracheostomy in this case would be indicated and recommended. Patient is full code but conserved. Given her condition waiting a significant period of time is at high risk for her given the risk for extubation duration of tube and worsening with her ET tube. A trach would be functional manageable for her and recommended. Unfortunately waiting for the time. Would be advisable and discussed with the social workers correctional counselor/case manager and medical teams. Set Up Mechanic Automatic Line as well. ICU team as well. We will proceed with tracheostomy in patient's best interest given her CODE STATUS and wishes and care plan. i have been asked by GI and medical teams to place PEG as well. after careful evaluation I agree with medical teams that patient would also benefit from feeding tube access. given her condition, Covid status, care plan, goals of care, will place peg at same time of trach to minimize exposure and OR time and limit procedure risks for patient. (5) Elevated d-dimer (6) COVID-19 Assessment & Plan: ++ (7) Pressure ulcer Assessment & Plan: Pt presented on admission with multiple Pressure injuries.DTPI noted to R Buttocks (L)3.8cm x (W)3.4cm. Base of wound is purpuric,fluctuant with surrounding maroon and indurated borders. DTPI Upper L Buttocks(L)5.5cm x (W)4cm. Base of wound is maroon and indurated. Borders are irregular. Non-Blanchable erythema without induration/fluctuance L lower buttocks(L)4cm x (W)7cm. R and L heels are soft but blanchable. Erosion noted at peristomal GT site. Site is erythematous and excoriated. Small amt. sanguineous exudate. Tx.Plan: Apply Moisture Barrier Paste to Sacrum, R and L Buttocks. Cover each area with Optifoam drsg. Change every 3 days and prn. Apply Moisture Barrier Paste to R and L Ischial tuberosities with each incontinence care. Apply Cavilon Skin Barrier to both heels. Cover each heel and malleoli with Optifoam drsg. Change every 7 days and prn. Reposition at least every 2hours or as tolerated. Off-load heels with pillow. APM/DARIN Mattress overlay. Apply Zinc Oxide Paste TID to GT site. Leave open to Air. (8) Dementia (9) CVA (cerebral vascular accident) (10) T2DM (type 2 diabetes mellitus) (11) Gastrostomy present (12) COVID-19 (13) Rapid atrial fibrillation Paul Garcia Jun 10, 2020 11:32
[2020-06-10 12:00] VITALS: BP 123/57
[2020-06-10] MEDS ORDERED: Lidocaine 1% Plain 30 ml INJ PRN (13:07)
[2020-06-10] MEDS ORDERED: Heparin1,000 units/500ml Premix(Conc:2 units/ml) INJ PRN (13:07)
[2020-06-10 16:00] VITALS: BP 135/69
--- NOTE | 2020-06-10 16:30 | NUR ---
CASE MANAGEMENT: REVIEW 06/10/2020 SI:SEPSIS. COVID PNA. VS: T 97 HR 62 RR 13 B/P 123/57 SATS 100% ON MECH VENT FIO2 40 LABS: BUN 21 CR 0.5 IS: ZERBAXA IV Q8HR NS IVF @ 50ML/HR LOVENOX SUBQ Q12HR SDU
--- NOTE | 2020-06-10 16:58 | Cardiac Electrophysiology PN ---
Assessment/Plan Assessment/Plan 1. [id number] myocardial infarction with peak troponin of 3.4 EKG shows Inferolateral ischemia Due to septic shock, DCCV and Renal failure. Echo had poor windows. 2. PAF with RVR. S/P DCCV 3 times No more fib or accelerated junctional rhythm. Off beta-ramakrishna or calcium-channel ramakrishna for bradycardia 3. S/P Septic shock. On antibiotic. Off Midodrine in view of bradycardia and on Florinef 0.1 mg daily 4. Bradycardia requiring Atropine x 3 on 05/30/20. Off Dopamine. Off Midodrine 5. Severe hypernatremia with sodium of 174, BUN of 131, creatinine 2.7 due to dehydration. Improved. Cr 0.5 now 6. Dysphagia, status post PEG replacement per Dr Matos 7. History of CVA and dementia. 8. Respiratory failure, S/P Tracheostomy by Dr. Garcia 06/01/20 KIMMY RN Subjective Subjective In SDU in [place] with no atrial fib but had bradycardia and received atropine 3 times on 05/31/20 S/P Trach and PEG on 06/02/20. ECG 06/02/20 showed inferolateral ischemia Off and on emilia in 50s. On 40% Fio2 and AC 12 Had 4 positive Covid and last 2 were negative. Off isolation Changed Right IJ line to Left IJ today Objective Last 24 Hour Vital Signs Date Time Temp Pulse Resp B/P (MAP) Pulse Ox O2 Delivery O2 Flow Rate FiO2 06/10/20 16:00 40 06/10/20 16:00 Mechanical Ventilator 06/10/20 14:55 72 16 40 06/10/20 12:00 51 06/10/20 12:00 97.0 62 13 123/57 (79) 100 06/10/20 12:00 40 06/10/20 12:00 Mechanical Ventilator 06/10/20 11:24 61 15 40 06/10/20 09:25 100 06/10/20 08:00 40 06/10/20 08:00 97.6 62 12 111/62 (78) 100 06/10/20 08:00 Mechanical Ventilator 06/10/20 07:36 62 13 40 06/10/20 07:30 52 06/10/20 04:03 40 06/10/20 04:02 98.6 55 12 101/56 (71) 100 06/10/20 04:01 Mechanical Ventilator 06/10/20 04:00 54 06/10/20 02:45 60 14 40 06/10/20 00:00 57 06/10/20 00:00 Mechanical Ventilator 06/10/20 00:00 98.3 56 12 118/55 (76) 100 06/10/20 00:00 40 06/09/20 23:10 50 12 40 06/09/20 20:00 97.9 57 14 98/57 (71) 100 06/09/20 20:00 Mechanical Ventilator 06/09/20 19:43 58 06/09/20 19:20 58 16 40 Intake and Output 06/09/20 06/10/20 19:00 07:00 Intake Total 1120 ml 960 ml Output Total 1400 ml 1300 ml Balance -280 ml -340 ml Free Water 150 ml 100 ml IV Total 310 ml Tube Feeding 660 ml 660 ml Blood Product 200 ml Output Urine Total 1400 ml 1300 ml Laboratory Tests Test 06/09/20 18:29 06/10/20 02:50 POC Whole Blood Glucose 102 MG/DL (74-106) White Blood Count 7.0 K/UL (4.8-10.8) Red Blood Count 2.93 M/UL (4.20-5.40) L Hemoglobin 9.2 G/DL (12.0-16.0) L Hematocrit 26.8 % (37.0-47.0) L Mean Corpuscular Volume 91 FL (80-99) Mean Corpuscular Hemoglobin 31.5 PG (27.0-31.0) H Mean Corpuscular Hemoglobin Concent 34.5 G/DL (32.0-36.0) Red Cell Distribution Width 14.0 % (11.6-14.8) Platelet Count 288 K/UL (150-450) Mean Platelet Volume 8.0 FL (6.5-10.1) Neutrophils (%) (Auto) 74.7 % (45.0-75.0) Lymphocytes (%) (Auto) 15.8 % (20.0-45.0) L Monocytes (%) (Auto) 6.5 % (1.0-10.0) Eosinophils (%) (Auto) 1.3 % (0.0-3.0) Basophils (%) (Auto) 1.7 % (0.0-2.0) Sodium Level 143 MMOL/L (136-145) Potassium Level 3.9 MMOL/L (3.5-5.1) Chloride Level 107 MMOL/L (98-107) Carbon Dioxide Level 32 MMOL/L (21-32) Anion Gap 4 mmol/L (5-15) L Blood Urea Nitrogen 21 mg/dL (7-18) H Creatinine 0.5 MG/DL (0.55-1.30) L Estimat Glomerular Filtration Rate > 60 mL/min (>60) Glucose Level 99 MG/DL (74-106) Calcium Level 9.2 MG/DL (8.5-10.1) Objective HEAD AND NECK: No JVD. Tracheostomy in place. Left IJ line in place LUNGS: Coarse rhonchi. CARDIOVASCULAR: Regular S1 and S2 with no gallop. ABDOMEN: Soft. G-tube site in place EXTREMITIES: No pitting edema. Norman Morillo MD Jun 10, 2020 16:58
--- NOTE | 2020-06-10 17:18 | Brief Operative Note ---
Immediate Post Operative Note Operative Note Pre-op Diagnosis: needs central IV access Procedure: L IJ central line Post-op Diagnosis: same as pre-op Surgeon: Quan Lozano Specimen: none Complications: none Fluids: none Implant(s) used?: No Neeraj Lozano MD Jun 10, 2020 17:18
--- NOTE | 2020-06-10 17:32 | NUR ---
RADIOLOGY NOTE: RIJ CENTRAL LINE INSERTION BY DR. DREA ROBERTS. FA
--- NOTE | 2020-06-10 17:33 | NUR ---
NURSE NOTES: Contacted and informed Dr. Garcia that new Left internal jugular central catheter okay to be used per Dr. Washburn. Informed Dr. Garcia that right internal jugular central catheter may now be removed. Also informed Dr. Garcia that per Dr. Wade would like right internal jugular catheter tip to be sent for culture. Dr. Garcia acknowledged and informed this nurse they will come in at a later time to remove right internal jugular central catheter. Will endorse to oncoming nurse accordingly. Noted.
--- NOTE | 2020-06-10 17:56 | Diagnostic Imaging Report ---
Indication: Needs central venous access Technique: Procedure performed at bedside. Procedural timeout performed. Ultrasound confirms patent compressible left internal jugular vein. Total sterile technique, including sterile probe cover and sterile gel, sterile gloves, hand hygiene, hat, mask, sterile gown, large sterile drape, and preparation with 2% chlorhexidine utilized.Local anesthesia with 1% lidocaine. Under real-time ultrasound guidance, puncture left internal jugular vein using 21-gauge micropuncture needle, passage 0.018 guidewire, insertion 4 Turkish micropuncture introducer,, passage 0.035 guidewire, over which was passed serial dilators and then a left transjugular central venous catheter. Completion chest radiograph obtained, demonstrating catheter tip position at cavoatrial junction. Impression: Successful placement of left jugular central venous catheter, as described.
--- NOTE | 2020-06-10 19:18 | NUR ---
NURSE NOTES: received report from SARA Sevilla. Patient sleep in bed afebrile and no respiratory distress noted. On mech vent via trache Shiley 8, AC 12, TV 500, Fi O2 40% and peep 5 saturating at 100%. On Glucerna 1.2 via GTube at 60 cc/hr infusing well without any sediments. With right IJ TLC intact, asymptomatic and flushed to be removed by MD per endorsement. With left IJ TLC intact, asymptomatic and flushed with 1/2 NS at 50cc/hr.With FC to urine bag draining well with yellowish urine. Skin assessment done and noted. HOB elevated. Needs were attended. Bed rails are up and wheels are locked. Continue plan of care.
--- NOTE | 2020-06-10 19:30 | NUR ---
NURSE HAND-OFF REPORT: Important Events on Shift: Patient Status: Stable Diet: Glucerna 1.2 60 ml/hr Pending Orders: Dr. Garcia to remove right internal jugular central catheter triple lumen. Right internal jugular catheter tip to be sent to lab for culture, endorsed to SARA Rivera. Pending Results/Labs:None Pending MD notification:None Latest Vital Signs: Temperature 97.7 , Pulse 67 , B/P 135 /69 , Respiratory Rate 13 , O2 SAT 95 , Mechanical Ventilator, O2 Flow Rate 12.0 . Vital Sign Comment: Stable EKG Rhythm: Sinus Rhythm Rhythm change?: N Notified?: Chucky Pierce MD Response: No New Orders Received Latest Garza Fall Score: 70 Fall Risk: High Risk Safety Measures: Call light Within Reach, Bed Alarm Zone 1, Side Rails Side Rails x3, Bed position Low and Locked. Fall Precautions: Yellow Socks Yellow Gown Door Sign Patient Fall Education Report given to SARA Rivera.
[2020-06-10 20:00] VITALS: BP 121/67
[2020-06-10] MEDS: Miralax 17gm pkt GT SCH (20:32)
[2020-06-10] MEDS: Dyna-Hex 2% Top Sol 2oz TOPIC SCH (20:32)
[2020-06-11] VITALS: BP 128/64
--- NOTE | 2020-06-11 01:00 | NUR ---
NURSE NOTES: Pt was given partial bed bath. gown and linen change. Pt tolerated well. Wound dressing change. Trache care done. Continue to monitor the patient.
[2020-06-11] MEDS: TAZOBACTAM IV SCH ×3 (01:16→18:00)
[2020-06-11] MEDS: CEFTOLOZANE IV SCH ×3 (01:16→18:00)
[2020-06-11] MEDS: NS IV SCH ×3 (01:16→18:00)
[2020-06-11 04:00] VITALS: BP 120/53
[2020-06-11 05:21] LABS: BASOPHILS % (AUTO) 1.4 % (0.0-2.0); EOSINOPHILS % (AUTO) 0.6 % (0.0-3.0); HEMATOCRIT 25.9 % (37.0-47.0); HEMOGLOBIN 8.8 G/DL (12.0-16.0); LYMPHOCYTES % (AUTO) 12.6 % (20.0-45.0); MEAN CORPUSCULAR VOLUME 92 FL (80-99); MONOCYTES % (AUTO) 5.4 % (1.0-10.0); PLATELET COUNT 296 K/UL (150-450); RED BLOOD COUNT 2.82 M/UL (4.20-5.40); RED CELL DISTRIBUTION WIDTH 13.6 % (11.6-14.8); WHITE BLOOD COUNT 10.1 K/UL (4.8-10.8)
[2020-06-11 05:41] LABS: ANION GAP 3 mmol/L (5-15); BLOOD UREA NITROGEN 19 mg/dL (7-18); CALCIUM 9.3 MG/DL (8.5-10.1); CARBON DIOXIDE 33 MMOL/L (21-32); CHLORIDE 108 MMOL/L (98-107); CREATININE 0.5 MG/DL (0.55-1.30); PHOSPHORUS 2.2 MG/DL (2.5-4.9); POTASSIUM 3.7 MMOL/L (3.5-5.1); SODIUM 144 MMOL/L (136-145)
--- NOTE | 2020-06-11 06:15 | NUR ---
NURSE NOTES: Pt asleep in bed and arousable. Suction PRN done. No respiratory distress noted. New central line is intact, no bleeding, asymptomatic. Continue to monitor the patient
--- NOTE | 2020-06-11 07:25 | NUR ---
NURSE HAND-OFF REPORT: Important Events on Shift: none Patient Status: stable Diet: glucerna at 60cc/hr Pending Orders: n Pending Results/Labs:n Pending MD notification:n Latest Vital Signs: Temperature 97.6 , Pulse 62 , B/P 120 /53 , Respiratory Rate 13 , O2 SAT 95 , Mechanical Ventilator, O2 Flow Rate 12.0 . Vital Sign Comment: n EKG Rhythm: Sinus Rhythm Rhythm change?: N MD Notified?: Chucky Pierce MD Response: No New Orders Received Latest Garza Fall Score: 70 Fall Risk: High Risk Safety Measures: Call light Within Reach, Bed Alarm Zone 1, Side Rails Side Rails x3, Bed position Low and Locked. Fall Precautions: Yellow Socks Yellow Gown Door Sign Patient Fall Education Report given to Domonique Raymond RN.
--- NOTE | 2020-06-11 07:38 | General Progress Note ---
Subjective ROS Limited/Unobtainable: No Allergies: Coded Allergies: DIVALPROEX SODIUM (Verified Allergy, Unknown, 05/14/20) PENICILLINS (Verified Allergy, Unknown, 05/14/20) Objective Last 24 Hour Vital Signs Date Time Temp Pulse Resp B/P (MAP) Pulse Ox O2 Delivery O2 Flow Rate FiO2 06/11/20 04:00 97.6 62 13 120/53 (75) 95 06/11/20 04:00 40 06/11/20 04:00 Mechanical Ventilator 06/11/20 03:44 58 06/11/20 03:05 58 12 40 06/11/20 00:00 Mechanical Ventilator 06/11/20 00:00 97.6 65 13 128/64 (85) 95 06/10/20 23:33 65 06/10/20 23:20 57 13 40 06/10/20 20:00 Mechanical Ventilator 06/10/20 20:00 40 06/10/20 20:00 97.6 93 13 121/67 (85) 95 06/10/20 19:47 65 06/10/20 19:25 83 20 40 06/10/20 16:00 67 06/10/20 16:00 97.7 68 13 135/69 (91) 95 06/10/20 16:00 40 06/10/20 16:00 Mechanical Ventilator 06/10/20 14:55 72 16 40 06/10/20 12:00 51 06/10/20 12:00 97.0 62 13 123/57 (79) 100 06/10/20 12:00 40 06/10/20 12:00 Mechanical Ventilator 06/10/20 11:24 61 15 40 06/10/20 09:25 100 06/10/20 08:00 40 06/10/20 08:00 97.6 62 12 111/62 (78) 100 06/10/20 08:00 Mechanical Ventilator Intake and Output 06/10/20 06/11/20 19:00 07:00 Intake Total 1470 ml 1660 ml Output Total 1100 ml 2200 ml Balance 370 ml -540 ml Free Water 300 ml 230 ml IV Total 510 ml 710 ml Tube Feeding 660 ml 720 ml Output Urine Total 1100 ml 2200 ml Laboratory Tests 06/11/20 03:30: White Blood Count 10.1, Red Blood Count 2.82L, Hemoglobin 8.8L, Hematocrit 25.9L , Mean Corpuscular Volume 92, Mean Corpuscular Hemoglobin 31.1H, Mean Corpuscular Hemoglobin Concent 33.8, Red Cell Distribution Width 13.6, Platelet Count 296, Mean Platelet Volume 7.4, Neutrophils (%) (Auto) 80.0H, Lymphocytes (%) (Auto) 12.6L, Monocytes (%) (Auto) 5.4, Eosinophils (%) (Auto) 0.6, Basophils (%) (Auto) 1.4, Sodium Level 144, Potassium Level 3.7, Chloride Level 108H, Carbon Dioxide Level 33H, Anion Gap 3L, Blood Urea Nitrogen 19H, Creatinine 0.5L, Estimat Glomerular Filtration Rate > 60, Glucose Level 92, Calcium Level 9.3, Phosphorus Level 2.2L, Magnesium Level 2.0 Height (Feet): 5 Height (Inches): 5.00 Weight (Pounds): 142 General Appearance: no apparent distress EENT: normal ENT inspection Neck: supple Cardiovascular: normal rate Respiratory/Chest: decreased breath sounds Abdomen: hypoactive bowel sounds Extremities: non-tender Assessment/Plan Status: stable Assessment/Plan: 1. History of CVA. 2. Dementia. 3. Dysphagia with G-tube. 4. Cachexia. 5. Diabetes. 6. Pressure ulcers. 7. Hypothyroidism. 8. Legal blindness. 9. Currently COVID positive. s/p peg and trach GTF monitor for residuals fu labs supportive care Jhon Matos MD Jun 11, 2020 07:38
[2020-06-11 08:00] VITALS: BP 115/69
--- NOTE | 2020-06-11 08:19 | NUR ---
NURSE NOTES: Pt obtunded, open eyes spontaneously, pt is scheduled for the removal of R central cath today. Pt on electronic device monitor no signs of cardiac distress. Pt is on ventilator. Pt is on Gtube continuous feed @ 60ml goal. Bed locked and in lowest position. call light within reach. will continue to monitor
--- NOTE | 2020-06-11 09:04 | Infectious Diseases Prog Note ---
Assessment/Plan 70 yo female with PMHx of Dementia, DM, CVA ( S/P PEG), COVID 19 infection and pressure ulcers. Septic Shock-combination cardiogenic and septic; -back on pressors, decreasing Gram positive bacteremia- contaminant; recurrent Right IJ changed to left IJ 06/10/20 -05/14 Bcx 1/ S. haemolyticus; 05/17 Bcx Neg -05/31 Bcx 1/2 P.a -06/01 Bcx Neg -06/04 Bcx P.a MDR -06/06 BCx - Negative UTI, sp rx UA (+); ucx 10-20k P. mirabilis (S Ceftriaxone, Cefepime) PNA, superimposed bacterial, sp rx Recent COVID19 pna- now repeat neg x2 -05/27 CXR: Previously seen left lung atelectasis has nearly completely resolved. Retrocardiac atelectasis without or with some component of consolidation. Low lung volumes with bronchovascular crowding. -05/26 CXR: Complete opacification of the left hemithorax with mediastinal shift to the left likely due to complete atelectasis of the left lung perhaps from mucous plugging. rapid COVID PCR neg -05/25 sp cx MDR PsA (I Ceftazidime, Colistin, Polymixin B); suspect colonizer SARS-COV2 neg -05/24 SARS-COV2 pCR inconclusive -05/23 CXR: Worsening aeration with increasing hazy opacification of the left lung base which may related to increased layering pleural effusion and adjacent atelectasis/consolidation. -05/19 CXR: Increasing left pleural fluid and likely basilar consolidation/atelectasis. Interim orogastric intubation 05/16 CXR: Retrocardiac density may represent atelectasis versus infiltrate. CXR 05/14/20 showed Retrocardiac atelectasis/infiltrate with Pulmonary venous congestion. sp cx MDR E.coli (S Cefepime, Meropenem, Zosyn) Hx of COVID 19 - Bacteria secondary infection? Asp PNA? COVID 19 tested Pos [facility] - about 3 week [employer]KEEP[employer] -still positive Rapid COVID PCR 05/14 Resp Fail Intuabted on Vent Leukocytosis; increased (sp steroids)- SP Fever; low grade ,recurrent -06/01 u/a wbc 10-15, nit neg, leuk +1 L femoral DVT EMA, SP SVT -sp cardioversion Hyperglycemia Elevated LFTs; resolving -Abd US: Gallbladder sludge. Negative for dilated bile ducts. Normal appearing liver and spleen. Trace ascites sp trach/peg 06/01 Dementia DM Hx CVA ( S/P PEG) pressure ulcers PLAN - Continue Zerbaxa #7/14 ( End date 06/18/20) - Please repeat Blood Cx 1 week after stopping abx to assure clearance of bacteremia - Would recommend RIJ removal and placemant of Midline for abx. The lab is working on Zerbaxa and Avycaz Sensi - 06/03/20 SP Meropenem #2 - 06/02/20 SP Vancomycin #2 - 05/27 SP Meropenem # - 05/24 SP Decadron # - 05/19 SP IV Vancomcyin #6 - 05/17 SP Cefepime #4 - f/u Cultures - Monitor CBC and Temps -repeat covid neg x2 -f/u repeat cultures Thank you for consulting [facility]. Will continue to follow along with you. Discussed with RN and Pharmacy staff Subjective Allergies: Coded Allergies: DIVALPROEX SODIUM (Verified Allergy, Unknown, 05/14/20) PENICILLINS (Verified Allergy, Unknown, 05/14/20) Afebrile No Leukocytosis On vent 40% Left IJ placed yesterday Objective Last 24 Hour Vital Signs Date Time Temp Pulse Resp B/P (MAP) Pulse Ox O2 Delivery O2 Flow Rate FiO2 06/11/20 07:50 60 13 40 06/11/20 04:00 97.6 62 13 120/53 (75) 95 06/11/20 04:00 40 06/11/20 04:00 Mechanical Ventilator 06/11/20 03:44 58 06/11/20 03:05 58 12 40 06/11/20 00:00 Mechanical Ventilator 06/11/20 00:00 97.6 65 13 128/64 (85) 95 06/10/20 23:33 65 06/10/20 23:20 57 13 40 06/10/20 20:00 Mechanical Ventilator 06/10/20 20:00 40 06/10/20 20:00 97.6 93 13 121/67 (85) 95 06/10/20 19:47 65 06/10/20 19:25 83 20 40 06/10/20 16:00 67 06/10/20 16:00 97.7 68 13 135/69 (91) 95 06/10/20 16:00 40 06/10/20 16:00 Mechanical Ventilator 06/10/20 14:55 72 16 40 06/10/20 12:00 51 06/10/20 12:00 97.0 62 13 123/57 (79) 100 06/10/20 12:00 40 06/10/20 12:00 Mechanical Ventilator 06/10/20 11:24 61 15 40 06/10/20 09:25 100 Height (Feet): 5 Height (Inches): 5.00 Weight (Pounds): 142 GEN: NAD, On Vent HEENT: NCAT, MMM, Intubated, Left IJ Pulm: Equal rise and fall B/L ABD: Soft, ND, PEG (No e/p) Neuro: Not following SKIN: Exposed skin rash B/L upper arms at BP cuff site Laboratory Tests Test 06/11/20 03:30 White Blood Count 10.1 K/UL (4.8-10.8) Red Blood Count 2.82 M/UL (4.20-5.40) L Hemoglobin 8.8 G/DL (12.0-16.0) L Hematocrit 25.9 % (37.0-47.0) L Mean Corpuscular Volume 92 FL (80-99) Mean Corpuscular Hemoglobin 31.1 PG (27.0-31.0) H Mean Corpuscular Hemoglobin Concent 33.8 G/DL (32.0-36.0) Red Cell Distribution Width 13.6 % (11.6-14.8) Platelet Count 296 K/UL (150-450) Mean Platelet Volume 7.4 FL (6.5-10.1) Neutrophils (%) (Auto) 80.0 % (45.0-75.0) H Lymphocytes (%) (Auto) 12.6 % (20.0-45.0) L Monocytes (%) (Auto) 5.4 % (1.0-10.0) Eosinophils (%) (Auto) 0.6 % (0.0-3.0) Basophils (%) (Auto) 1.4 % (0.0-2.0) Sodium Level 144 MMOL/L (136-145) Potassium Level 3.7 MMOL/L (3.5-5.1) Chloride Level 108 MMOL/L (98-107) H Carbon Dioxide Level 33 MMOL/L (21-32) H Anion Gap 3 mmol/L (5-15) L Blood Urea Nitrogen 19 mg/dL (7-18) H Creatinine 0.5 MG/DL (0.55-1.30) L Estimat Glomerular Filtration Rate > 60 mL/min (>60) Glucose Level 92 MG/DL (74-106) Calcium Level 9.3 MG/DL (8.5-10.1) Phosphorus Level 2.2 MG/DL (2.5-4.9) L Magnesium Level 2.0 MG/DL (1.8-2.4) Current Medications Medications (Trade) Dose Ordered Sig/Morgan Route PRN Reason Start Time Stop Time Status Last Admin Dose Admin Acetaminophen (Tylenol) 650 mg Q4H PRN GT Temp >100.5 05/16/20 06:15 06/15/20 06:14 05/31/20 13:15 Acetaminophen (Tylenol) 650 mg Q4H PRN RECTAL Temp >100.5 05/16/20 19:45 06/15/20 19:44 05/17/20 18:30 Atropine Sulfate (Atropine 0.4mg/ ml) 0.4 mg Q2HR PRN IVP HR <45 05/29/20 21:30 06/28/20 19:24 05/30/20 22:39 Ceftolozane/ Tazobactam 1.5 gm/ Sodium Chloride 110 ml @ 110 mls/hr Q8H IV 06/10/20 18:00 06/18/20 23:59 06/11/20 01:16 Chlorhexidine Gluconate (Lilliam-Hex 2%) 1 applic DAILY@2000 TOPIC 06/08/20 20:00 09/06/20 19:59 06/10/20 20:32 Docusate Sodium (Colace) 100 mg TWICE A DAY GT 06/07/20 18:00 07/07/20 17:59 06/10/20 17:48 Enoxaparin Sodium (Lovenox) 60 mg EVERY 12 HOURS SUBQ 06/03/20 21:00 09/01/20 20:59 06/10/20 20:35 Fludrocortisone Acetate (Florinef) 0.1 mg DAILY ORAL 06/05/20 09:00 07/05/20 08:59 06/10/20 08:51 Pantoprazole (Protonix) 40 mg DAILY IV 05/15/20 09:00 06/14/20 08:59 06/10/20 08:51 Polyethylene Glycol (Miralax) 17 gm BEDTIME GT 06/07/20 21:00 07/07/20 20:59 06/10/20 20:32 Sodium Chloride 1,000 ml @ 50 mls/hr Q20H IV 05/15/20 06:45 06/14/20 06:44 06/10/20 16:26 Zinc Oxide (Zinc Oxide) 1 applic TIDPRN PRN TOPIC Abdominal cramps 05/20/20 13:00 08/18/20 12:59 Erasto Romeo MD Jun 11, 2020 09:04
--- NOTE | 2020-06-11 09:08 | Surgery Progress Note ---
Surgery Progress Note Subjective Procedure Performed trach egd with peg Symptoms: improved, tolerating diet, passing flatus Objective Last 24 Hour Vital Signs Date Time Temp Pulse Resp B/P (MAP) Pulse Ox O2 Delivery O2 Flow Rate FiO2 06/11/20 07:50 60 13 40 06/11/20 04:00 97.6 62 13 120/53 (75) 95 06/11/20 04:00 40 06/11/20 04:00 Mechanical Ventilator 06/11/20 03:44 58 06/11/20 03:05 58 12 40 06/11/20 00:00 Mechanical Ventilator 06/11/20 00:00 97.6 65 13 128/64 (85) 95 06/10/20 23:33 65 06/10/20 23:20 57 13 40 06/10/20 20:00 Mechanical Ventilator 06/10/20 20:00 40 06/10/20 20:00 97.6 93 13 121/67 (85) 95 06/10/20 19:47 65 06/10/20 19:25 83 20 40 06/10/20 16:00 67 06/10/20 16:00 97.7 68 13 135/69 (91) 95 06/10/20 16:00 40 06/10/20 16:00 Mechanical Ventilator 06/10/20 14:55 72 16 40 06/10/20 12:00 51 06/10/20 12:00 97.0 62 13 123/57 (79) 100 06/10/20 12:00 40 06/10/20 12:00 Mechanical Ventilator 06/10/20 11:24 61 15 40 06/10/20 09:25 100 I&O Intake and Output 06/10/20 06/11/20 19:00 07:00 Intake Total 1470 ml 1660 ml Output Total 1100 ml 2200 ml Balance 370 ml -540 ml Free Water 300 ml 230 ml IV Total 510 ml 710 ml Tube Feeding 660 ml 720 ml Output Urine Total 1100 ml 2200 ml Dressing: saturated Cardiovascular: RSR Respiratory: clear, decreased breath sounds Abdomen: non-tender, present bowel sounds Extremities: no edema, no tenderness, no cyanosis Laboratory Tests Test 06/11/20 03:30 White Blood Count 10.1 K/UL (4.8-10.8) Red Blood Count 2.82 M/UL (4.20-5.40) L Hemoglobin 8.8 G/DL (12.0-16.0) L Hematocrit 25.9 % (37.0-47.0) L Mean Corpuscular Volume 92 FL (80-99) Mean Corpuscular Hemoglobin 31.1 PG (27.0-31.0) H Mean Corpuscular Hemoglobin Concent 33.8 G/DL (32.0-36.0) Red Cell Distribution Width 13.6 % (11.6-14.8) Platelet Count 296 K/UL (150-450) Mean Platelet Volume 7.4 FL (6.5-10.1) Neutrophils (%) (Auto) 80.0 % (45.0-75.0) H Lymphocytes (%) (Auto) 12.6 % (20.0-45.0) L Monocytes (%) (Auto) 5.4 % (1.0-10.0) Eosinophils (%) (Auto) 0.6 % (0.0-3.0) Basophils (%) (Auto) 1.4 % (0.0-2.0) Sodium Level 144 MMOL/L (136-145) Potassium Level 3.7 MMOL/L (3.5-5.1) Chloride Level 108 MMOL/L (98-107) H Carbon Dioxide Level 33 MMOL/L (21-32) H Anion Gap 3 mmol/L (5-15) L Blood Urea Nitrogen 19 mg/dL (7-18) H Creatinine 0.5 MG/DL (0.55-1.30) L Estimat Glomerular Filtration Rate > 60 mL/min (>60) Glucose Level 92 MG/DL (74-106) Calcium Level 9.3 MG/DL (8.5-10.1) Phosphorus Level 2.2 MG/DL (2.5-4.9) L Magnesium Level 2.0 MG/DL (1.8-2.4) Plan Problems: (1) Hypernatremia (2) Renal failure (3) Respiratory failure (4) Sepsis Assessment & Plan: COVID + leukocytosis anemia electrolytes abnormal on iv fluids renal input appreciated cxr noted abx as per ID will follow with recs Will likely need trach difficult weaning conservatorship working with case management social work to figure out goals of care s/p peg and trach improving much more comfortable Interim placement of orogastric tube, also documented on recent abdominal radiograph. Stable satisfactory position of endotracheal tube and right jugular central venous catheter. There is increased pleural fluid and likely left basilar consolidation/atelectasis. The right lung and pleural space remain clear. Impression: Increasing left pleural fluid and likely basilar consolidation/atelectasis. Interim orogastric intubation DAILY ESTIMATED NEEDS: Needs based on Pulmonary, DM, wounds 66.6kg 25-30 kcals/kg 3148-3073 total kcals 1.25-1.5 g protein/kg 83-100 g total protein 20-25 mL/kg 5711-0276 total fluid mLs NUTRITION DIAGNOSIS: Swallowing difficulty r/t dysphagia as evidenced by h/o CVA, pt is GT dep, currently ICU status, now intubated, off pressor support, GT feeds initiated. CURRENT TF:Glucerna 1.2 @45ml/hr ENTERAL NUTRITION RECOMMENDATIONS: As medically able: GLUCERNA 1.5 goal of 45ml/hr x24 hrs to provide 1080ml, 1620 kcal, 89g pro, 820ml free H2O -> as medically able without aspiration risk start Glucerna 1.5 @low rate 25ml/hr for 6 hrs. Advance as tolerated 10ml/hr q4-6 hrs to goal. - Flush per , HOB over 30 degrees. ---- If not hemodynamically stable, rec trophic feeds of 5-10ml/hr to maintain gut integrity. ADDITIONAL RECOMMENDATIONS: 1) Obtain an accurate calibrated bed scale wt 2) F/up w/ H&P 3) With active TF orders, add JASMYN BID for noted DTPI wounds 4) TF recs as above when off bipap and w/ hemodynamic stability -> Now intubated, off pressors, on GT feeds. he spleen size is normal. The gallbladder contains sludge. No stones. No wall thickening nor pericholecystic fluid. Common bile duct measures 4 mm in diameter. Small amount free fluid is seen adjacent to the liver and spleen Impression: Gallbladder sludge. Negative for dilated bile ducts Normal appearing liver and spleen Patient with respiratory failure intubated on support unable to wean safely. A tracheostomy in this case would be indicated and recommended. Patient is full code but conserved. Given her condition waiting a significant period of time is at high risk for her given the risk for extubation duration of tube and worsening with her ET tube. A trach would be functional manageable for her and recommended. Unfortunately waiting for the time. Would be advisable and discussed with the social workers continuous pillowcase cutter and medical teams. Bar Host/Hostess as well. ICU team as well. We will proceed with tracheostomy in patient's best interest given her CODE STATUS and wishes and care plan. i have been asked by GI and medical teams to place PEG as well. after careful evaluation I agree with medical teams that patient would also benefit from feeding tube access. given her condition, Covid status, care plan, goals of care, will place peg at same time of trach to minimize exposure and OR time and limit procedure risks for patient. (5) Elevated d-dimer (6) COVID-19 Assessment & Plan: ++ (7) Pressure ulcer Assessment & Plan: Pt presented on admission with multiple Pressure injuries.DTPI noted to R Buttocks (L)3.8cm x (W)3.4cm. Base of wound is purpuric,fluctuant with surrounding maroon and indurated borders. DTPI Upper L Buttocks(L)5.5cm x (W)4cm. Base of wound is maroon and indurated. Borders are irregular. Non-Blanchable erythema without induration/fluctuance L lower buttocks(L)4cm x (W)7cm. R and L heels are soft but blanchable. Erosion noted at peristomal GT site. Site is erythematous and excoriated. Small amt. sanguineous exudate. Tx.Plan: Apply Moisture Barrier Paste to Sacrum, R and L Buttocks. Cover each area with Optifoam drsg. Change every 3 days and prn. Apply Moisture Barrier Paste to R and L Ischial tuberosities with each incontinence care. Apply Cavilon Skin Barrier to both heels. Cover each heel and malleoli with Optifoam drsg. Change every 7 days and prn. Reposition at least every 2hours or as tolerated. Off-load heels with pillow. APM/DARIN Mattress overlay. Apply Zinc Oxide Paste TID to GT site. Leave open to Air. (8) Dementia (9) CVA (cerebral vascular accident) (10) T2DM (type 2 diabetes mellitus) (11) Gastrostomy present (12) COVID-19 (13) Rapid atrial fibrillation Paul Garcia Jun 11, 2020 09:08
[2020-06-11] MEDS: Docusate 100mg/10ml Liq GT SCH ×2 (10:01→18:00)
[2020-06-11] MEDS: Pantoprazole Inj IV SCH (10:03)
--- NOTE | 2020-06-11 10:05 | Pulmonology Progress Note ---
Subjective ROS Limited/Unobtainable: No Allergies: Coded Allergies: DIVALPROEX SODIUM (Verified Allergy, Unknown, 05/14/20) PENICILLINS (Verified Allergy, Unknown, 05/14/20) All Systems: reviewed and negative except above Objective Last 24 Hour Vital Signs Date Time Temp Pulse Resp B/P (MAP) Pulse Ox O2 Delivery O2 Flow Rate FiO2 06/11/20 07:50 60 13 40 06/11/20 04:00 97.6 62 13 120/53 (75) 95 06/11/20 04:00 40 06/11/20 04:00 Mechanical Ventilator 06/11/20 03:44 58 06/11/20 03:05 58 12 40 06/11/20 00:00 Mechanical Ventilator 06/11/20 00:00 97.6 65 13 128/64 (85) 95 06/10/20 23:33 65 06/10/20 23:20 57 13 40 06/10/20 20:00 Mechanical Ventilator 06/10/20 20:00 40 06/10/20 20:00 97.6 93 13 121/67 (85) 95 06/10/20 19:47 65 06/10/20 19:25 83 20 40 06/10/20 16:00 67 06/10/20 16:00 97.7 68 13 135/69 (91) 95 06/10/20 16:00 40 06/10/20 16:00 Mechanical Ventilator 06/10/20 14:55 72 16 40 06/10/20 12:00 51 06/10/20 12:00 97.0 62 13 123/57 (79) 100 06/10/20 12:00 40 06/10/20 12:00 Mechanical Ventilator 06/10/20 11:24 61 15 40 Intake and Output 06/10/20 06/11/20 19:00 07:00 Intake Total 1470 ml 1660 ml Output Total 1100 ml 2200 ml Balance 370 ml -540 ml Free Water 300 ml 230 ml IV Total 510 ml 710 ml Tube Feeding 660 ml 720 ml Output Urine Total 1100 ml 2200 ml General Appearance: no acute distress HEENT: normocephalic, status post trach Respiratory: chest wall non-tender, lungs clear, other - trach in place Cardiovascular: normal peripheral pulses, normal rate, regular rhythm Abdomen: normal bowel sounds, soft, non tender, non distended, other - GT Extremities: no cyanosis, no clubbing, no edema Neurologic: unresponsiveness Laboratory Tests 06/11/20 03:30: White Blood Count 10.1, Red Blood Count 2.82L, Hemoglobin 8.8L, Hematocrit 25.9L , Mean Corpuscular Volume 92, Mean Corpuscular Hemoglobin 31.1H, Mean Corpuscular Hemoglobin Concent 33.8, Red Cell Distribution Width 13.6, Platelet Count 296, Mean Platelet Volume 7.4, Neutrophils (%) (Auto) 80.0H, Lymphocytes (%) (Auto) 12.6L, Monocytes (%) (Auto) 5.4, Eosinophils (%) (Auto) 0.6, Basophils (%) (Auto) 1.4, Sodium Level 144, Potassium Level 3.7, Chloride Level 108H, Carbon Dioxide Level 33H, Anion Gap 3L, Blood Urea Nitrogen 19H, Creatinine 0.5L, Estimat Glomerular Filtration Rate > 60, Glucose Level 92, Calcium Level 9.3, Phosphorus Level 2.2L, Magnesium Level 2.0 Current Medications Medications (Trade) Dose Ordered Sig/Morgan Route PRN Reason Start Time Stop Time Status Last Admin Dose Admin Acetaminophen (Tylenol) 650 mg Q4H PRN GT Temp >100.5 05/16/20 06:15 06/15/20 06:14 05/31/20 13:15 Acetaminophen (Tylenol) 650 mg Q4H PRN RECTAL Temp >100.5 05/16/20 19:45 06/15/20 19:44 05/17/20 18:30 Atropine Sulfate (Atropine 0.4mg/ ml) 0.4 mg Q2HR PRN IVP HR <45 05/29/20 21:30 06/28/20 19:24 05/30/20 22:39 Ceftolozane/ Tazobactam 1.5 gm/ Sodium Chloride 110 ml @ 110 mls/hr Q8H IV 06/10/20 18:00 06/18/20 23:59 06/11/20 01:16 Chlorhexidine Gluconate (Lilliam-Hex 2%) 1 applic DAILY@2000 TOPIC 06/08/20 20:00 09/06/20 19:59 06/10/20 20:32 Docusate Sodium (Colace) 100 mg TWICE A DAY GT 06/07/20 18:00 07/07/20 17:59 06/10/20 17:48 Enoxaparin Sodium (Lovenox) 60 mg EVERY 12 HOURS SUBQ 06/03/20 21:00 09/01/20 20:59 06/10/20 20:35 Fludrocortisone Acetate (Florinef) 0.1 mg DAILY ORAL 06/05/20 09:00 07/05/20 08:59 06/10/20 08:51 Pantoprazole (Protonix) 40 mg DAILY IV 05/15/20 09:00 06/14/20 08:59 06/10/20 08:51 Polyethylene Glycol (Miralax) 17 gm BEDTIME GT 06/07/20 21:00 07/07/20 20:59 06/10/20 20:32 Sodium Chloride 1,000 ml @ 50 mls/hr Q20H IV 05/15/20 06:45 06/14/20 06:44 06/10/20 16:26 Zinc Oxide (Zinc Oxide) 1 applic TIDPRN PRN TOPIC Abdominal cramps 05/20/20 13:00 08/18/20 12:59 Assessment/Plan Assessment/Plan Pulmonary Progress Note Subjective ROS Limited/Unobtainable: Yes Allergies: Coded Allergies: DIVALPROEX SODIUM (Verified Allergy, Unknown, 05/14/20) PENICILLINS (Verified Allergy, Unknown, 05/14/20) All Systems: reviewed and negative except above Subjective stableovernight,in SDU Objective Vital Signs noted General Appearance: no acute distress HEENT: normocephalic, status post trach Respiratory: chest wall non-tender, lungs clear, other - trach in place Cardiovascular: normal peripheral pulses, normal rate, regular rhythm Abdomen: normal bowel sounds, soft, non tender, non distended, other - GT Extremities: no cyanosis, no clubbing, no edema Neurologic: unresponsiveness Microbiology Date/Time Source Procedure Growth Status 06/04/20 09:15 Blood Blood Culture - Preliminary Resulted Laboratory Tests noted Assessment/Plan Progress Note date and time: 06/10/20 0830 Subjective ROS Limited/Unobtainable: Yes Allergies: Coded Allergies: DIVALPROEX SODIUM (Verified Allergy, Unknown, 05/14/20) PENICILLINS (Verified Allergy, Unknown, 05/14/20) All Systems: reviewed and negative except above Subjective [facility] care reviewed vent noted Objective Last 24 Hour Vital Signs Date Time Temp Pulse Resp B/P (MAP) Pulse Ox O2 Delivery O2 Flow Rate FiO2 06/10/20 07:36 62 13 40 06/10/20 04:03 40 06/10/20 04:02 98.6 55 12 101/56 (71) 100 06/10/20 04:01 Mechanical Ventilator 06/10/20 04:00 54 06/10/20 02:45 60 14 40 06/10/20 00:00 57 06/10/20 00:00 Mechanical Ventilator 06/10/20 00:00 98.3 56 12 118/55 (76) 100 06/10/20 00:00 40 06/09/20 23:10 50 12 40 06/09/20 20:00 97.9 57 14 98/57 (71) 100 06/09/20 20:00 Mechanical Ventilator 06/09/20 19:43 58 06/09/20 19:20 58 16 40 06/09/20 16:00 Mechanical Ventilator 06/09/20 16:00 40 06/09/20 16:00 98.4 57 12 100/61 (74) 100 06/09/20 16:00 54 06/09/20 14:50 57 12 40 06/09/20 12:00 40 06/09/20 12:00 55 06/09/20 12:00 97.9 62 13 105/57 (73) 98 06/09/20 12:00 Mechanical Ventilator 06/09/20 10:45 53 12 40 06/09/20 09:00 100 Intake and Output0 06/09/20 06/10/20 19:00 07:00 Intake Total 1120 ml 960 ml Output Total 1400 ml 1300 ml Balance -280 ml -340 ml Free Water 150 ml 100 ml IV Total 310 ml Tube Feeding 660 ml 660 ml Blood Product 200 ml Output Urine Total 1400 ml 1300 ml General Appearance: no acute distress HEENT: normocephalic, status post trach Respiratory: chest wall non-tender, lungs clear, other - trach in place Cardiovascular: normal peripheral pulses, normal rate, regular rhythm Abdomen: normal bowel sounds, soft, non tender, non distended, other - GT Extremities: no cyanosis, no clubbing, no edema Neurologic: unresponsiveness Laboratory Tests 06/09/20 12:16: POC Whole Blood Glucose 116H 06/09/20 18:29: POC Whole Blood Glucose 102 06/10/20 02:50: White Blood Count 7.0, Red Blood Count 2.93L, Hemoglobin 9.2L, Hematocrit 26.8L, Mean Corpuscular Volume 91, Mean Corpuscular Hemoglobin 31.5H, Mean Corpuscular Hemoglobin Concent 34.5, Red Cell Distribution Width 14.0, Platelet Count 288, Mean Platelet Volume 8.0, Neutrophils (%) (Auto) 74.7, Lymphocytes (%) (Auto) 15.8L, Monocytes (%) (Auto) 6.5, Eosinophils (%) (Auto) 1.3, Basophils (%) (Auto) 1.7, Sodium Level 143, Potassium Level 3.9, Chloride Level 107, Carbon Dioxide Level 32, Anion Gap 4L, Blood Urea Nitrogen 21H, Creatinine 0.5L, Estimat Glomerular Filtration Rate > 60, Glucose Level 99, Calcium Level 9.2 Current Medications Medications (Trade) Dose Ordered Sig/Morgan Route PRN Reason Start Time Stop Time Status Last Admin Dose Admin Acetaminophen (Tylenol) 650 mg Q4H PRN GT Temp >100.5 05/16/20 06:15 06/15/20 06:14 05/31/20 13:15 Acetaminophen (Tylenol) 650 mg Q4H PRN RECTAL Temp >100.5 05/16/20 19:45 06/15/20 19:44 05/17/20 18:30 Atropine Sulfate (Atropine 0.4mg/ ml) 0.4 mg Q2HR PRN IVP HR <45 05/29/20 21:30 06/28/20 19:24 05/30/20 22:39 Ceftolozane/ Tazobactam 1.5 gm/ Sodium Chloride 110 ml @ 110 mls/hr Q8H IV 06/06/20 10:00 06/11/20 23:59 06/10/20 02:19 Chlorhexidine Gluconate (Lilliam-Hex 2%) 1 applic DAILY@2000 TOPIC 06/08/20 20:00 09/06/20 19:59 06/09/20 21:59 Docusate Sodium (Colace) 100 mg TWICE A DAY GT 06/07/20 18:00 07/07/20 17:59 06/09/20 17:51 Enoxaparin Sodium (Lovenox) 60 mg EVERY 12 HOURS SUBQ 06/03/20 21:00 09/01/20 20:59 06/09/20 10:01 Fludrocortisone Acetate (Florinef) 0.1 mg DAILY ORAL 06/05/20 09:00 07/05/20 08:59 06/09/20 09:56 Pantoprazole (Protonix) 40 mg DAILY IV 05/15/20 09:00 06/14/20 08:59 06/09/20 09:56 Polyethylene Glycol (Miralax) 17 gm BEDTIME GT 06/07/20 21:00 07/07/20 20:59 06/09/20 22:00 Sodium Chloride 1,000 ml @ 50 mls/hr Q20H IV 05/15/20 06:45 06/14/20 06:44 06/09/20 10:12 Zinc Oxide (Zinc Oxide) 1 applic TIDPRN PRN TOPIC Abdominal cramps 05/20/20 13:00 08/18/20 12:59 Assessment/Plan Assessment/Plan IMPRESSION: 1. Chronic respiratory failure. 2. Diabetes mellitus with hyperglycemia. 3. Septic shock. 4. Chronic G-tube. 5. Decubitus. 6. History of CHF. 7. Tracheostomy 8. severe PCM 9. pleural effusions 10. atelectasis DISCUSSION: monitor vent setting and adjust Continue fluids and antibiotics. S/p trach- monitor care wean as able On 40% FiO2 DVT and GI prophylaxis. nutrition and protein replacement Respiratory precautions wean if able nutrition monitor protein levels off load position change monitor in [facility] impression, plan, and exam edited and reviewed in detail care discussed with Erasto Waite MD Jun 11, 2020 10:05
[2020-06-11] MEDS: Enoxaparin 60mg Inj SUBQ SCH ×2 (10:06→20:21)
[2020-06-11 12:00] VITALS: BP 118/76
[2020-06-11] MEDS ORDERED: 1/2NS w/KCl 20mEq 1000ml IV ONE (12:56)
[2020-06-11] MEDS ORDERED: NS 275ml ONE (12:56)
[2020-06-11] MEDS ORDERED: Tubing IV Secondary IV ONE (12:56)
--- NOTE | 2020-06-11 15:34 | General Progress Note ---
Subjective Date patient seen: Jun 11, 2020 Time patient seen: 15:00 ROS Limited/Unobtainable: Yes Allergies: Coded Allergies: DIVALPROEX SODIUM (Verified Allergy, Unknown, 05/14/20) PENICILLINS (Verified Allergy, Unknown, 05/14/20) All Systems: reviewed and negative except above Subjective Non verbal, tacheostomy and PEG in place, she is noted to be grimacing. SHE IS OFF DOPAMINE since 06/04 Transferred to [facility] 06/05 new IJ PLACED 06/10 Objective Last 24 Hour Vital Signs Date Time Temp Pulse Resp B/P (MAP) Pulse Ox O2 Delivery O2 Flow Rate FiO2 06/11/20 11:00 59 15 40 06/11/20 09:50 100 06/11/20 09:00 40 06/11/20 08:00 Mechanical Ventilator 06/11/20 08:00 98.6 58 16 115/69 (84) 96 06/11/20 07:50 60 13 40 06/11/20 04:00 97.6 62 13 120/53 (75) 95 06/11/20 04:00 40 06/11/20 04:00 Mechanical Ventilator 06/11/20 03:44 58 06/11/20 03:05 58 12 40 06/11/20 00:00 Mechanical Ventilator 06/11/20 00:00 97.6 65 13 128/64 (85) 95 06/10/20 23:33 65 06/10/20 23:20 57 13 40 06/10/20 20:00 Mechanical Ventilator 06/10/20 20:00 40 06/10/20 20:00 97.6 93 13 121/67 (85) 95 06/10/20 19:47 65 06/10/20 19:25 83 20 40 06/10/20 16:00 67 06/10/20 16:00 97.7 68 13 135/69 (91) 95 06/10/20 16:00 40 06/10/20 16:00 Mechanical Ventilator Intake and Output 06/10/20 06/11/20 19:00 07:00 Intake Total 1470 ml 1660 ml Output Total 1100 ml 2200 ml Balance 370 ml -540 ml Free Water 300 ml 230 ml IV Total 510 ml 710 ml Tube Feeding 660 ml 720 ml Output Urine Total 1100 ml 2200 ml Laboratory Tests 06/11/20 03:30: White Blood Count 10.1, Red Blood Count 2.82L, Hemoglobin 8.8L, Hematocrit 25.9L , Mean Corpuscular Volume 92, Mean Corpuscular Hemoglobin 31.1H, Mean Corpu scular Hemoglobin Concent 33.8, Red Cell Distribution Width 13.6, Platelet Count 296, Mean Platelet Volume 7.4, Neutrophils (%) (Auto) 80.0H, Lymphocytes (%) (Auto) 12.6L, Monocytes (%) (Auto) 5.4, Eosinophils (%) (Auto) 0.6, Basophils (%) (Auto) 1.4, Sodium Level 144, Potassium Level 3.7, Chloride Level 108H, Carbon Dioxide Level 33H, Anion Gap 3L, Blood Urea Nitrogen 19H, Creatinine 0.5L , Estimat Glomerular Filtration Rate > 60, Glucose Level 92, Calcium Level 9.3, Phosphorus Level 2.2L, Magnesium Level 2.0 Height (Feet): 5 Height (Inches): 5.00 Weight (Pounds): 142 General Appearance: moderate distress EENT: PERRL/EOMI Neck: normal alignment Cardiovascular: normal rate Respiratory/Chest: decreased breath sounds Abdomen: normal bowel sounds Neurologic: shredder picker II-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 # Sepsis with element of cardiogenic shock Etiology COVID 19 vs UTI vs bacteremia / contaminant and NSTEMI Gram positive bacteremia- contaminant; recurrent -05/14 Bcx 09/12 S. haemolyticus; 05/17 Bcx Neg -05/31 Bcx 09/10 P.a -06/01 Bcx Neg -06/04 Bcx GNR Pseudomona with S to Colistin and Polymixin, I to Ceftazidime -06/06 BCx - no growth Sputum Cx 05/25 with Pseudomonas. Colonizer and recent completion of 14 day treatment with Meropenem U cx 05/14 Proteus Mirabillis Meropenem 14 days completed Vancomycin stopped stopped Cefepime Dexamethasone 10 day course completed Leukocytosis improved. Monitor clinically for now and OFF antibiotics per ID COVID NEGATIVE x 2 05/25 and 05/26 ID Director Federal - Zerbaxa DAY 03/22 for MDR PsA bacteremia, if worsening can try double coverage w/ colistin or polyB but overall slightly stable currently - FINAL PLAN per ID for length of therapy ( 14 day course needed ) until 06/18/20 and will NEED follow up blood culture on 06/25/20 - SNF updated and UNABLE TO TAKE THE PATIENT ON Zerbaxa due to cost. - Remove IJ line and tip culture. new IJ PLACED 06/10. 2 Physicia consent signed with Dr. Romeo from ID. Conservator was updated by RN and no response obtained. # Acute respiratory failure Intubated. Self extubated 05/27 and re intubated by ED MD successfully. ICU care appreciated Dr. Rock following Ventilator management per ICU-pulmonary FiO2 40 % today. T piece. Medically tracheostomy was needed and life saving procedure as she is not tolerating wean off. Overall, her quality of life will not improve from prior baseline with advanced dementia. Will need permanent ventilator support via tracheostomy and subacute level of care. Critical care attending, Surgery and GI attendings notified to plan PEG and TRACH as medically indicated and completed 06/02/20 # SVT vs A. Flutter s/p DC x 3 # NSTEMI HR is controlled in the 100 range and tolerating Digoxin Vasopressors in place Levophed at [address] Morillo requested and TTE requested and poor window. Troponin 3.4 now 0.7 EKG 05/17 NSR, stable. Inferior wall ischemia # AG metabolic acidosis Ddx lactic acidosis Improved. # Hyperglycemia r/o DKA ABG and Ketones negative Endocrine consult with Dr. Shelley IV insulin gtt stopped and in SQ insulin coverage now # Hypernatremia resolved Improving Monitor BMP change IVF rate and start free water flush per PEG - Monitor and try to HL IVF # COVID 19 Positive on admission, now NEGATIVE as of 05/25/20 On Dexamethasone completed 10 day course Contact and droplet isolation # Dysphagia PEG REMOVED 05/16 Carlo Vargas consulted NGT placed and Tube feeds started 05/18 and being tolerated at 45 cc hr Glucerna 1.2 # Severe protein caloric malnutrition with Albumin 1.5 RD follow up # Thrombocytopenia Platelets down from 80 K to 64 K to 66 K ( OFF Heparin ) and improved to normal range. 05/17 dc heparin, use SCD, order US Liver, HIT Ab, HIV negative Monitor carefully as Lovenox was restarted 06/03 for DVT # Newly detected lower extremity DVT HOLD off anticoagulation as tracheostomy and PEG done 06/[address] Garcia and agreed to start anticoagulation therapy for DVT Lovenox at 1 mg Kg SQ q 12 hr started 06/03 PM # Hypokalemia # Hypophosphatemia Replace as needed # Anemia Etiology likely secondary to multiple blood draws vs RAULITO vs less likely GIB FOBT pending. iron studies SHOW IRON DEFICIENCY. ordered IV iron x 1 only Trend Hb and PRN PRBC if Hb less than 8, 1 unit 06/06 Hb 9 range now # Dementia Baseline #DISPOSITION SNF subacute and NEED TO APPROVE Zerbaxa until 06/18/20 as is the ONLY good antibiotic choice per blood cx sensitivities. # FULL CODE SW follow up to reach out to DPOA and consider change in code status due to high morbidity and risk of inpatient mortality. Paperwork completed for superior court of the [facility] for request of tracheostomy and gastrostomy placement due to medical need on 05/26/20 Bioethic consult requested and spoke with Dr. Hung from ethics and I agree with his assessment that the patient quality of life will NOT IMPROVE with tracheostomy and replacement of PEG. The patient is very limited due to her underlying dementia and now unable to wean off the ventilator. SHE HAD THE NEED TO GET A TRACHEOSTOMY and PEG was replaced 06/01/[address] Garcia DUE TO MEDICAL NECESSITY AND LIFE SAVING PROCEDURES. DR. ROCK AND I AGREED AND SIGNED [address] MD CONS[address] FORM. PEND[address] DECISION REGARDING CODE STATUS. DNR IS MEDICALLY INDICATED. WHIT SHAY FULL CODE BY PRIOR CONSERVATOR DECISION. > 50 min spent in coordination of care and consultation with physicians and RN. Jessica Wade MD Jun 11, 2020 15:34
[2020-06-11 16:00] VITALS: BP 129/69
--- NOTE | 2020-06-11 16:46 | Cardiac Electrophysiology PN ---
Assessment/Plan Assessment/Plan 1. [id number] myocardial infarction with peak troponin of 3.4 EKG shows Inferolateral ischemia Due to septic shock, DCCV and Renal failure. Echo had poor windows. 2. PAF with RVR. S/P DCCV 3 times No more fib or accelerated junctional rhythm. Off beta-ramakrishna or calcium-channel ramakrishna for bradycardia 3. S/P Septic shock. On antibiotic. Off Midodrine in view of bradycardia and on Florinef 0.1 mg daily 4. Bradycardia requiring Atropine x 3 on 05/30/20. Off Dopamine. Off Midodrine 5. Severe hypernatremia with sodium of 174, BUN of 131, creatinine 2.7 due to dehydration. Improved. Cr 0.5 6. Dysphagia, status post PEG replacement per Dr Matos 7. History of CVA and dementia. 8. Respiratory failure, S/P Tracheostomy by Dr. Garcia 06/01/20 KIMMY RN Subjective Subjective In SDU in [place] with no atrial fib but had bradycardia and received atropine 3 times on 05/31/20 S/P Trach and PEG on 06/02/20. ECG 06/02/20 showed inferolateral ischemia Off and on emilia in 50s. On 40% Fio2 and Peep 5. Off Covid isolation Changed Right IJ line to Left IJ 06/10/20 Objective Last 24 Hour Vital Signs Date Time Temp Pulse Resp B/P (MAP) Pulse Ox O2 Delivery O2 Flow Rate FiO2 06/11/20 15:10 61 14 40 06/11/20 11:00 59 15 40 06/11/20 09:50 100 06/11/20 09:00 40 06/11/20 08:00 Mechanical Ventilator 06/11/20 08:00 98.6 58 16 115/69 (84) 96 06/11/20 07:50 60 13 40 06/11/20 04:00 97.6 62 13 120/53 (75) 95 06/11/20 04:00 40 06/11/20 04:00 Mechanical Ventilator 06/11/20 03:44 58 06/11/20 03:05 58 12 40 06/11/20 00:00 Mechanical Ventilator 06/11/20 00:00 97.6 65 13 128/64 (85) 95 06/10/20 23:33 65 06/10/20 23:20 57 13 40 06/10/20 20:00 Mechanical Ventilator 06/10/20 20:00 40 06/10/20 20:00 97.6 93 13 121/67 (85) 95 06/10/20 19:47 65 06/10/20 19:25 83 20 40 Intake and Output 06/10/20 06/11/20 19:00 07:00 Intake Total 1470 ml 1660 ml Output Total 1100 ml 2200 ml Balance 370 ml -540 ml Free Water 300 ml 230 ml IV Total 510 ml 710 ml Tube Feeding 660 ml 720 ml Output Urine Total 1100 ml 2200 ml Laboratory Tests Test 06/11/20 03:30 White Blood Count 10.1 K/UL (4.8-10.8) Red Blood Count 2.82 M/UL (4.20-5.40) L Hemoglobin 8.8 G/DL (12.0-16.0) L Hematocrit 25.9 % (37.0-47.0) L Mean Corpuscular Volume 92 FL (80-99) Mean Corpuscular Hemoglobin 31.1 PG (27.0-31.0) H Mean Corpuscular Hemoglobin Concent 33.8 G/DL (32.0-36.0) Red Cell Distribution Width 13.6 % (11.6-14.8) Platelet Count 296 K/UL (150-450) Mean Platelet Volume 7.4 FL (6.5-10.1) Neutrophils (%) (Auto) 80.0 % (45.0-75.0) H Lymphocytes (%) (Auto) 12.6 % (20.0-45.0) L Monocytes (%) (Auto) 5.4 % (1.0-10.0) Eosinophils (%) (Auto) 0.6 % (0.0-3.0) Basophils (%) (Auto) 1.4 % (0.0-2.0) Sodium Level 144 MMOL/L (136-145) Potassium Level 3.7 MMOL/L (3.5-5.1) Chloride Level 108 MMOL/L (98-107) H Carbon Dioxide Level 33 MMOL/L (21-32) H Anion Gap 3 mmol/L (5-15) L Blood Urea Nitrogen 19 mg/dL (7-18) H Creatinine 0.5 MG/DL (0.55-1.30) L Estimat Glomerular Filtration Rate > 60 mL/min (>60) Glucose Level 92 MG/DL (74-106) Calcium Level 9.3 MG/DL (8.5-10.1) Phosphorus Level 2.2 MG/DL (2.5-4.9) L Magnesium Level 2.0 MG/DL (1.8-2.4) Objective HEAD AND NECK: No JVD. Tracheostomy in place. Left IJ line in place LUNGS: Coarse rhonchi. CARDIOVASCULAR: Regular S1 and S2 with no gallop. ABDOMEN: Soft. G-tube site in place EXTREMITIES: No pitting edema. Norman Morillo MD Jun 11, 2020 16:46
--- NOTE | 2020-06-11 19:25 | NUR ---
NURSE NOTES: RECEIVED REPORT FROM SARA PEREZ. PATIENT AWAKE IN BED, NON-VERBAL, OPENS EYES SPONTANEOUSLY. NO S/SX OF PAIN OR DISCOMFORT NOTED AT THIS TIME. BREATHING IS EVEN AND UNLABORED WITH NO S/SX OF DISTRESS ON CURRENT SETTINGS: TRACH TO VENT AC 12, VT 500, FIO2 40%, PEEP 5. GTF RUNNING PRESCRIBED; GT FLUSHED, PATENT, WITH NO RESIDUAL NOTED. DEL TORO CATHETER DRAINING WELL TO GRAVITY, URINE CLEAR AND YELLOW IN COLOR. IV LEFT IJ PATENT, INTACT, ASYMPTOMATIC WITH IVF RUNNING PRESCRIBED; DRESSING NOTED TO RIGHT SIDE OF NECK WHERE OLD IJ DISCONTINUED EARLIER TODAY PER REPORT. FALL AND ASPIRATION PRECAUTIONS IN PLACE. BED LOCKED AND IN LOWEST POSITION, SIDERAILS UP X 3. CONTACT ISOLATION IMPLEMENTED. CALL LIGHT WITHIN REACH. WILL CONTINUE TO MONITOR.
--- NOTE | 2020-06-11 19:30 | NUR ---
NURSE NOTES: discontinued right IJ, pt tolerated procedure well. tip of catheter was send for culture.
--- NOTE | 2020-06-11 19:31 | NUR ---
NURSE HAND-OFF REPORT: Important Events on Shift:DC right IJ, pt is not bleeding. Patient Status: full code Diet: gtube feed glucerna 1.2 flush q6hrs 200ml Pending Orders: labs Pending Results/Labs: Pending MD notification: Latest Vital Signs: Temperature 98.6 , Pulse 71 , B/P 129 /69 , Respiratory Rate 14 , O2 SAT 100 , Mechanical Ventilator, O2 Flow Rate 12.0 . Vital Sign Comment: EKG Rhythm: Sinus Rhythm Rhythm change?: N Notified?: Chucky Pierce MD Response: No New Orders Received Latest Garza Fall Score: 70 Fall Risk: High Risk Safety Measures: Call light Within Reach, Bed Alarm Zone 1, Side Rails Side Rails x3, Bed position Low and Locked. Fall Precautions: y Yellow Socks y Yellow Gown y Door Sign y Patient Fall Education y Report given to Inza/RN.
[2020-06-11 20:00] VITALS: BP 134/67
[2020-06-11] MEDS: Dyna-Hex 2% Top Sol 2oz TOPIC SCH (20:12)
[2020-06-11] MEDS: Miralax 17gm pkt GT SCH (20:12)
--- NOTE | 2020-06-11 20:45 | NUR ---
NURSE NOTES: ORAL CARE PROVIDED, TRACH SUCTIONING DONE. PATIENT TOLERATED WELL, ALTHOUGH SEEMED TO RESIST INITIALLY SHE PUT HANDS UP TO HER TRACH. PATIENT NOW CALM AND COMFORTABLE WITH NO S/SX OF PAIN OR DISCOMFORT. WILL CONTINUE TO MONITOR.
[2020-06-12] VITALS: BP 129/59
--- NOTE | 2020-06-12 01:00 | NUR ---
NURSE NOTES: COMPLETE SPONGE BATH GIVEN, COMPLETE LINEN CHANGED, ORAL CARE PROVIDED, WOUND CARE DONE/PICTURES TAKEN- PATIENT TOLERATED WELL WITH NO S/SX OF PAIN OR DISCOMFORT. WILL CONTINUE TO MONITOR FOR ANY CHANGES.
[2020-06-12] MEDS: NS IV SCH ×3 (01:11→17:40)
[2020-06-12] MEDS: TAZOBACTAM IV SCH ×3 (01:11→17:40)
[2020-06-12] MEDS: CEFTOLOZANE IV SCH ×3 (01:11→17:40)
[2020-06-12 04:00] VITALS: BP 111/74
[2020-06-12 06:00] LABS: EOSINOPHILS % (AUTO) 0.4 % (0.0-3.0); HEMATOCRIT 25.6 % (37.0-47.0); HEMOGLOBIN 8.7 G/DL (12.0-16.0); MEAN CORPUSCULAR VOLUME 91 FL (80-99); MONOCYTES % (AUTO) 2.9 % (1.0-10.0); NEUTROPHILS % (AUTO) 84.7 % (45.0-75.0); PLATELET COUNT 294 K/UL (150-450); RED BLOOD COUNT 2.81 M/UL (4.20-5.40); RED CELL DISTRIBUTION WIDTH 14.1 % (11.6-14.8); WHITE BLOOD COUNT 11.6 K/UL (4.8-10.8)
[2020-06-12 06:22] LABS: ANION GAP 3 mmol/L (5-15); BLOOD UREA NITROGEN 19 mg/dL (7-18); CALCIUM 9.3 MG/DL (8.5-10.1); CARBON DIOXIDE 31 MMOL/L (21-32); CHLORIDE 108 MMOL/L (98-107); CREATININE 0.5 MG/DL (0.55-1.30); POTASSIUM 3.9 MMOL/L (3.5-5.1); SODIUM 142 MMOL/L (136-145)
--- NOTE | 2020-06-12 07:20 | NUR ---
NURSE HAND-OFF REPORT: Important Events on Shift: RESISTIVE TO CARE, WOUND CARE Patient Status: STABLE Diet: GLUCERNA 1.2 @ 60 ML/HR Pending Orders: N/A Pending Results/Labs:10/4 AM LABS Pending MD notification:N/A Latest Vital Signs: Temperature 99.3 , Pulse 63 , B/P 111 /74 , Respiratory Rate 12 , O2 SAT 99 , Mechanical Ventilator, O2 Flow Rate 12.0 . Vital Sign Comment: STABLE EKG Rhythm: Sinus Rhythm Rhythm change?: N Notified?: Chucky Pierce MD Response: No New Orders Received Latest Garza Fall Score: 70 Fall Risk: High Risk Safety Measures: Call light Within Reach, Bed Alarm Zone 2, Side Rails Side Rails x3, Bed position Low and Locked. Fall Precautions: Yellow Socks Yellow Gown Door Sign Patient Fall Education Report given to SARA PEREZ.
--- NOTE | 2020-06-12 07:50 | NUR ---
NURSE NOTES: pt, in bed resting, pt on school bus monitor no signs of cardiac distress. Pt on vent sating 94-96. pt on feeding pump. bed locked and in lowest position, call light within reach. Will continue to monitor.
[2020-06-12 08:00] VITALS: BP 108/59
--- NOTE | 2020-06-12 09:23 | General Progress Note ---
Subjective ROS Limited/Unobtainable: No Allergies: Coded Allergies: DIVALPROEX SODIUM (Verified Allergy, Unknown, 05/14/20) PENICILLINS (Verified Allergy, Unknown, 05/14/20) Objective Last 24 Hour Vital Signs Date Time Temp Pulse Resp B/P (MAP) Pulse Ox O2 Delivery O2 Flow Rate FiO2 06/12/20 08:12 40 06/12/20 08:00 97.0 57 18 108/59 (75) 98 06/12/20 07:22 63 12 40 06/12/20 04:00 40 06/12/20 04:00 99.3 63 14 111/74 (86) 99 06/12/20 04:00 59 06/12/20 04:00 Mechanical Ventilator 06/12/20 02:51 58 15 40 06/12/20 00:00 70 06/12/20 00:00 Mechanical Ventilator 06/12/20 00:00 97.7 72 14 129/59 (82) 100 06/11/20 23:11 72 14 40 06/11/20 20:00 98.2 93 18 134/67 (89) 98 06/11/20 20:00 Mechanical Ventilator 06/11/20 20:00 68 06/11/20 20:00 40 06/11/20 18:51 71 14 40 06/11/20 16:00 63 06/11/20 16:00 40 06/11/20 16:00 Mechanical Ventilator 06/11/20 16:00 98.6 89 14 129/69 (89) 100 06/11/20 15:10 61 14 40 06/11/20 12:00 40 06/11/20 12:00 58 06/11/20 12:00 98.4 88 16 118/76 (90) 100 06/11/20 12:00 Mechanical Ventilator 06/11/20 11:00 59 15 40 06/11/20 09:50 100 Intake and Output 06/11/20 06/12/20 19:00 07:00 Intake Total 350 ml 1390 ml Output Total 1350 ml 900 ml Balance -1000 ml 490 ml Free Water 200 ml 400 ml IV Total 30 ml 330 ml Tube Feeding 120 ml 660 ml Output Urine Total 1350 ml 900 ml Laboratory Tests 06/11/20 23:15: POC Whole Blood Glucose 118H 06/12/20 04:00: White Blood Count 11.6H, Red Blood Count 2.81L, Hemoglobin 8.7L, Hematocrit 25.6L, Mean Corpuscular Volume 91, Mean Corpuscular Hemoglobin 31.0, Mean Corpuscular Hemoglobin Concent 34.0, Red Cell Distribution Width 14.1, Platelet Count 294, Mean Platelet Volume 8.2, Neutrophils (%) (Auto) 84.7H, Lymphocytes (%) (Auto) 11.0L, Monocytes (%) (Auto) 2.9, Eosinophils (%) (Auto) 0.4, Basophils (%) (Auto) 1.0, Sodium Level 142, Potassium Level 3.9, Chloride Level 108H, Carbon Dioxide Level 31, Anion Gap 3L, Blood Urea Nitrogen 19H, Creatinine 0.5L, Estimat Glomerular Filtration Rate > 60, Glucose Level 88, Calcium Level 9.3 Height (Feet): 5 Height (Inches): 5.00 Weight (Pounds): 142 General Appearance: no apparent distress EENT: normal ENT inspection Neck: supple Cardiovascular: normal rate Respiratory/Chest: decreased breath sounds Abdomen: normal bowel sounds, non tender, soft Extremities: non-tender Assessment/Plan Status: stable Assessment/Plan: 1. History of CVA. 2. Dementia. 3. Dysphagia with G-tube. 4. Cachexia. 5. Diabetes. 6. Pressure ulcers. 7. Hypothyroidism. 8. Legal blindness. 9. Currently COVID positive. s/p peg and trach GTF monitor for residuals fu labs supportive care Jhon Matos MD Jun 12, 2020 09:23
[2020-06-12] MEDS: Pantoprazole Inj IV SCH (09:36)
[2020-06-12] MEDS: Docusate 100mg/10ml Liq GT SCH ×2 (09:36→17:40)
[2020-06-12] MEDS: Enoxaparin 60mg Inj SUBQ SCH ×2 (09:37→20:17)
[2020-06-12 12:00] VITALS: BP 116/64
--- NOTE | 2020-06-12 14:29 | General Progress Note ---
Subjective Date patient seen: Jun 12, 2020 ROS Limited/Unobtainable: Yes Allergies: Coded Allergies: DIVALPROEX SODIUM (Verified Allergy, Unknown, 05/14/20) PENICILLINS (Verified Allergy, Unknown, 05/14/20) Subjective LEFT IJ PLACED 06/10 Objective Last 24 Hour Vital Signs Date Time Temp Pulse Resp B/P (MAP) Pulse Ox O2 Delivery O2 Flow Rate FiO2 06/12/20 12:00 Mechanical Ventilator 06/12/20 12:00 40 06/12/20 08:12 40 06/12/20 08:00 56 06/12/20 08:00 97.0 57 18 108/59 (75) 98 06/12/20 08:00 Mechanical Ventilator 06/12/20 07:22 63 12 40 06/12/20 04:00 40 06/12/20 04:00 99.3 63 14 111/74 (86) 99 06/12/20 04:00 59 06/12/20 04:00 Mechanical Ventilator 06/12/20 02:51 58 15 40 06/12/20 00:00 70 06/12/20 00:00 Mechanical Ventilator 06/12/20 00:00 97.7 72 14 129/59 (82) 100 06/11/20 23:11 72 14 40 06/11/20 20:00 98.2 93 18 134/67 (89) 98 06/11/20 20:00 Mechanical Ventilator 06/11/20 20:00 68 06/11/20 20:00 40 06/11/20 18:51 71 14 40 06/11/20 16:00 63 06/11/20 16:00 40 06/11/20 16:00 Mechanical Ventilator 06/11/20 16:00 98.6 89 14 129/69 (89) 100 06/11/20 15:10 61 14 40 Intake and Output 06/11/20 06/12/20 19:00 07:00 Intake Total 350 ml 1390 ml Output Total 1350 ml 900 ml Balance -1000 ml 490 ml Free Water 200 ml 400 ml IV Total 30 ml 330 ml Tube Feeding 120 ml 660 ml Output Urine Total 1350 ml 900 ml Laboratory Tests 06/11/20 23:15: POC Whole Blood Glucose 118H 06/12/20 04:00: White Blood Count 11.6H, Red Blood Count 2.81L, Hemoglobin 8.7L, Hematocrit 25.6L, Mean Corpuscular Volume 91, Mean Corpuscular Hemoglobin 31.0, Mean Corpuscular Hemoglobin Concent 34.0, Red Cell Distribution Width 14.1, Platelet Count 294, Mean Platelet Volume 8.2, Neutrophils (%) (Auto) 84.7H, Lymphocytes (%) (Auto) 11.0L, Monocytes (%) (Auto) 2.9, Eosinophils (%) (Auto) 0.4, Basophils (%) (Auto) 1.0, Sodium Level 142, Potassium Level 3.9, Chloride Level 108H, Carbon Dioxide Level 31, Anion Gap 3L, Blood Urea Nitrogen 19H, Creatinine 0.5L, Estimat Glomerular Filtration Rate > 60, Glucose Level 88, Calcium Level 9.3 Height (Feet): 5 Height (Inches): 5.00 Weight (Pounds): 142 General Appearance: moderate distress EENT: PERRL/EOMI Neck: other - trach Cardiovascular: normal rate Abdomen: other - peg Neurologic: senior product development engineer II-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 # Sepsis with element of cardiogenic shock Etiology COVID 19 vs UTI vs bacteremia / contaminant and NSTEMI Gram positive bacteremia- contaminant; recurrent -05/14 Bcx 09/12 S. haemolyticus; 05/17 Bcx Neg -05/31 Bcx 09/10 P.a -06/01 Bcx Neg -06/04 Bcx GNR Pseudomona with S to Colistin and Polymixin, I to Ceftazidime -06/06 BCx - no growth CATH TIP cx 06/11 NGT Sputum Cx 05/25 with Pseudomonas. Colonizer and recent completion of 14 day treatment with Meropenem U cx 05/14 Proteus Mirabillis Meropenem 14 days completed Vancomycin stopped stopped Cefepime Dexamethasone 10 day course completed Leukocytosis improved. Monitor clinically for now and OFF antibiotics per ID COVID NEGATIVE x 2 05/25 and 05/26 ID Filling And Packing Supervisor - Zerbaxa DAY 04/22 for MDR PsA bacteremia, if worsening can try double coverage w/ colistin or polyB but overall slightly stable currently - FINAL PLAN per ID for length of therapy ( 14 day course needed ) until 06/18/20 and will NEED follow up blood culture on 06/25/20 - SNF updated and UNABLE TO TAKE THE PATIENT ON Zerbaxa due to cost. CLEANER FURNITURE UPDATED. - Removed R IJ line and tip culture 06/11 NEW LEFT IJ PLACED 06/10. 2 Physician consent signed with Dr. Romeo from ID. Conservator was updated by RN and no response obtained. # Acute respiratory failure Intubated. Self extubated 05/27 and re intubated by ED MD successfully. ICU care appreciated Dr. Rock following Ventilator management per ICU-pulmonary FiO2 40 % today. T piece. Medically tracheostomy was needed and life saving procedure as she is not tolerating wean off. Overall, her quality of life will not improve from prior baseline with advanced dementia. Will need permanent ventilator support via tracheostomy and subacute level of care. Critical care attending, Surgery and GI attendings notified to plan PEG and TRACH as medically indicated and completed 06/02/20 # SVT vs A. Flutter s/p DC x 3 # NSTEMI HR is controlled in the 100 range and tolerating Digoxin Vasopressors in place Levophed at [address] Morillo requested and TTE requested and poor window. Troponin 3.4 now 0.7 EKG 05/17 NSR, stable. Inferior wall ischemia # AG metabolic acidosis Ddx lactic acidosis Improved. # Hyperglycemia r/o DKA ABG and Ketones negative Endocrine consult with Dr. Shelley IV insulin gtt stopped and in SQ insulin coverage now # Hypernatremia resolved Improving Monitor BMP change IVF rate and start free water flush per PEG - Monitor and try to HL IVF # COVID 19 Positive on admission, now NEGATIVE as of 05/25/20 On Dexamethasone completed 10 day course Contact and droplet isolation # Dysphagia PEG REMOVED 05/16 Carlo Vargas consulted NGT placed and Tube feeds started 05/18 and being tolerated at 45 cc hr Glucerna 1.2 # Severe protein caloric malnutrition with Albumin 1.5 RD follow up # Thrombocytopenia Platelets down from 80 K to 64 K to 66 K ( OFF Heparin ) and improved to normal range. 05/17 dc heparin, use SCD, order US Liver, HIT Ab, HIV negative Monitor carefully as Lovenox was restarted 06/03 for DVT # Newly detected lower extremity DVT HOLD off anticoagulation as tracheostomy and PEG done 06/[address] Garcia and agreed to start anticoagulation therapy for DVT Lovenox at 1 mg Kg SQ q 12 hr started 06/03 PM # Hypokalemia # Hypophosphatemia Replace as needed # Anemia Etiology likely secondary to multiple blood draws vs RAULITO vs less likely GIB FOBT pending. iron studies SHOW IRON DEFICIENCY. ordered IV iron x 1 only Trend Hb and PRN PRBC if Hb less than 8, 1 unit 06/06 Hb 9 range now # Dementia Baseline #DISPOSITION SNF subacute and NEED TO APPROVE Zerbaxa until 06/18/20 as is the ONLY good antibiotic choice per blood cx sensitivities. # FULL CODE SW follow up to reach out to DPOA and consider change in code status due to high morbidity and risk of inpatient mortality. Paperwork completed for superior court of the [facility] for request of tracheostomy and gastrostomy placement due to medical need on 05/26/20 Bioethic consult requested and spoke with Dr. Hung from ethics and I agree with his assessment that the patient quality of life will NOT IMPROVE with tracheostomy and replacement of PEG. The patient is very limited due to her underlying dementia and now unable to wean off the ventilator. SHE HAD THE NEED TO GET A TRACHEOSTOMY and PEG was replaced 06/01/[address] Garcia DUE TO MEDICAL NECESSITY AND LIFE SAVING PROCEDURES. DR. ROCK AND I AGREED AND SIGNED [address] FORM. PENDING [address] DECISION REGARDING CODE STATUS. DNR IS MEDICALLY INDICATED. CURRENTLY FULL CODE BY PRIOR CONSERVATOR DECISION. > 50 min spent in coordination of care and consultation with physicians and RN. Jessica Wade MD Jun 12, 2020 14:29
[2020-06-12 16:00] VITALS: BP 129/69
--- NOTE | 2020-06-12 16:02 | Surgery Progress Note ---
Surgery Progress Note Subjective Procedure Performed trach egd with peg Symptoms: improved, tolerating diet, passing flatus Objective Last 24 Hour Vital Signs Date Time Temp Pulse Resp B/P (MAP) Pulse Ox O2 Delivery O2 Flow Rate FiO2 06/12/20 15:28 52 12 40 06/12/20 12:00 Mechanical Ventilator 06/12/20 12:00 40 06/12/20 11:12 55 12 40 06/12/20 08:12 40 06/12/20 08:00 56 06/12/20 08:00 97.0 57 18 108/59 (75) 98 06/12/20 08:00 Mechanical Ventilator 06/12/20 07:22 63 12 40 06/12/20 04:00 40 06/12/20 04:00 99.3 63 14 111/74 (86) 99 06/12/20 04:00 59 06/12/20 04:00 Mechanical Ventilator 06/12/20 02:51 58 15 40 06/12/20 00:00 70 06/12/20 00:00 Mechanical Ventilator 06/12/20 00:00 97.7 72 14 129/59 (82) 100 06/11/20 23:11 72 14 40 06/11/20 20:00 98.2 93 18 134/67 (89) 98 06/11/20 20:00 Mechanical Ventilator 06/11/20 20:00 68 06/11/20 20:00 40 06/11/20 18:51 71 14 40 I&O Intake and Output 06/11/20 06/12/20 19:00 07:00 Intake Total 350 ml 1390 ml Output Total 1350 ml 900 ml Balance -1000 ml 490 ml Free Water 200 ml 400 ml IV Total 30 ml 330 ml Tube Feeding 120 ml 660 ml Output Urine Total 1350 ml 900 ml Dressing: saturated Cardiovascular: RSR Respiratory: decreased breath sounds Abdomen: non-tender, present bowel sounds Extremities: no edema, no tenderness, no cyanosis Laboratory Tests Test 06/11/20 23:15 06/12/20 04:00 POC Whole Blood Glucose 118 MG/DL (74-106) H White Blood Count 11.6 K/UL (4.8-10.8) H Red Blood Count 2.81 M/UL (4.20-5.40) L Hemoglobin 8.7 G/DL (12.0-16.0) L Hematocrit 25.6 % (37.0-47.0) L Mean Corpuscular Volume 91 FL (80-99) Mean Corpuscular Hemoglobin 31.0 PG (27.0-31.0) Mean Corpuscular Hemoglobin Concent 34.0 G/DL (32.0-36.0) Red Cell Distribution Width 14.1 % (11.6-14.8) Platelet Count 294 K/UL (150-450) Mean Platelet Volume 8.2 FL (6.5-10.1) Neutrophils (%) (Auto) 84.7 % (45.0-75.0) H Lymphocytes (%) (Auto) 11.0 % (20.0-45.0) L Monocytes (%) (Auto) 2.9 % (1.0-10.0) Eosinophils (%) (Auto) 0.4 % (0.0-3.0) Basophils (%) (Auto) 1.0 % (0.0-2.0) Sodium Level 142 MMOL/L (136-145) Potassium Level 3.9 MMOL/L (3.5-5.1) Chloride Level 108 MMOL/L (98-107) H Carbon Dioxide Level 31 MMOL/L (21-32) Anion Gap 3 mmol/L (5-15) L Blood Urea Nitrogen 19 mg/dL (7-18) H Creatinine 0.5 MG/DL (0.55-1.30) L Estimat Glomerular Filtration Rate > 60 mL/min (>60) Glucose Level 88 MG/DL (74-106) Calcium Level 9.3 MG/DL (8.5-10.1) Plan Problems: (1) Hypernatremia (2) Renal failure (3) Respiratory failure (4) Sepsis Assessment & Plan: COVID + leukocytosis anemia electrolytes abnormal on iv fluids renal input appreciated cxr noted abx as per ID will follow with recs Will likely need trach difficult weaning conservatorship working with case management social work to figure out goals of care s/p peg and trach improving much more comfortable Interim placement of orogastric tube, also documented on recent abdominal radiograph. Stable satisfactory position of endotracheal tube and right jugular central venous catheter. There is increased pleural fluid and likely left basilar consolidation/atelectasis. The right lung and pleural space remain clear. Impression: Increasing left pleural fluid and likely basilar consolidation/atelectasis. Interim orogastric intubation DAILY ESTIMATED NEEDS: Needs based on Pulmonary, DM, wounds 66.6kg 25-30 kcals/kg 3215-0620 total kcals 1.25-1.5 g protein/kg 83-100 g total protein 20-25 mL/kg 6427-4543 total fluid mLs NUTRITION DIAGNOSIS: Swallowing difficulty r/t dysphagia as evidenced by h/o CVA, pt is GT dep, currently ICU status, now intubated, off pressor support, GT feeds initiated. CURRENT TF:Glucerna 1.2 @45ml/hr ENTERAL NUTRITION RECOMMENDATIONS: As medically able: GLUCERNA 1.5 goal of 45ml/hr x24 hrs to provide 1080ml, 1620 kcal, 89g pro, 820ml free H2O -> as medically able without aspiration risk start Glucerna 1.5 @low rate 25ml/hr for 6 hrs. Advance as tolerated 10ml/hr q4-6 hrs to goal. - Flush per , HOB over 30 degrees. ---- If not hemodynamically stable, rec trophic feeds of 5-10ml/hr to maintain gut integrity. ADDITIONAL RECOMMENDATIONS: 1) Obtain an accurate calibrated bed scale wt 2) F/up w/ H&P 3) With active TF orders, add JASMYN BID for noted DTPI wounds 4) TF recs as above when off bipap and w/ hemodynamic stability -> Now intubated, off pressors, on GT feeds. he spleen size is normal. The gallbladder contains sludge. No stones. No wall thickening nor pericholecystic fluid. Common bile duct measures 4 mm in diameter. Small amount free fluid is seen adjacent to the liver and spleen Impression: Gallbladder sludge. Negative for dilated bile ducts Normal appearing liver and spleen Patient with respiratory failure intubated on support unable to wean safely. A tracheostomy in this case would be indicated and recommended. Patient is full code but conserved. Given her condition waiting a significant period of time is at high risk for her given the risk for extubation duration of tube and worsening with her ET tube. A trach would be functional manageable for her and recommended. Unfortunately waiting for the time. Would be advisable and discussed with the social workers embedded case manager and medical teams. Chemical Pumper as well. ICU team as well. We will proceed with tracheostomy in patient's best interest given her CODE STATUS and wishes and care plan. i have been asked by GI and medical teams to place PEG as well. after careful evaluation I agree with medical teams that patient would also benefit from feeding tube access. given her condition, Covid status, care plan, goals of care, will place peg at same time of trach to minimize exposure and OR time and limit procedure risks for patient. (5) Elevated d-dimer (6) COVID-19 Assessment & Plan: ++ (7) Pressure ulcer Assessment & Plan: Pt presented on admission with multiple Pressure injuries.DTPI noted to R Buttocks (L)3.8cm x (W)3.4cm. Base of wound is purpuric,fluctuant with surrounding maroon and indurated borders. DTPI Upper L Buttocks(L)5.5cm x (W)4cm. Base of wound is maroon and indurated. Borders are irregular. Non-Blanchable erythema without induration/fluctuance L lower buttocks(L)4cm x (W)7cm. R and L heels are soft but blanchable. Erosion noted at peristomal GT site. Site is erythematous and excoriated. Small amt. sanguineous exudate. Tx.Plan: Apply Moisture Barrier Paste to Sacrum, R and L Buttocks. Cover each area with Optifoam drsg. Change every 3 days and prn. Apply Moisture Barrier Paste to R and L Ischial tuberosities with each incontinence care. Apply Cavilon Skin Barrier to both heels. Cover each heel and malleoli with Optifoam drsg. Change every 7 days and prn. Reposition at least every 2hours or as tolerated. Off-load heels with pillow. APM/DARIN Mattress overlay. Apply Zinc Oxide Paste TID to GT site. Leave open to Air. (8) Dementia (9) CVA (cerebral vascular accident) (10) T2DM (type 2 diabetes mellitus) (11) Gastrostomy present (12) COVID-19 (13) Rapid atrial fibrillation Paul Garcia Jun 12, 2020 16:02
--- NOTE | 2020-06-12 16:39 | Pulmonology Progress Note ---
Subjective ROS Limited/Unobtainable: Yes Allergies: Coded Allergies: DIVALPROEX SODIUM (Verified Allergy, Unknown, 05/14/20) PENICILLINS (Verified Allergy, Unknown, 05/14/20) All Systems: reviewed and negative except above Objective Last 24 Hour Vital Signs Date Time Temp Pulse Resp B/P (MAP) Pulse Ox O2 Delivery O2 Flow Rate FiO2 06/12/20 16:00 98.4 53 18 129/69 (89) 100 06/12/20 15:28 52 12 40 06/12/20 12:00 97.9 64 18 116/64 (81) 98 06/12/20 12:00 Mechanical Ventilator 06/12/20 12:00 40 06/12/20 11:12 55 12 40 06/12/20 08:12 40 06/12/20 08:00 56 06/12/20 08:00 97.0 57 18 108/59 (75) 98 06/12/20 08:00 Mechanical Ventilator 06/12/20 07:22 63 12 40 06/12/20 04:00 40 06/12/20 04:00 99.3 63 14 111/74 (86) 99 06/12/20 04:00 59 06/12/20 04:00 Mechanical Ventilator 06/12/20 02:51 58 15 40 06/12/20 00:00 70 06/12/20 00:00 Mechanical Ventilator 06/12/20 00:00 97.7 72 14 129/59 (82) 100 06/11/20 23:11 72 14 40 06/11/20 20:00 98.2 93 18 134/67 (89) 98 06/11/20 20:00 Mechanical Ventilator 06/11/20 20:00 68 06/11/20 20:00 40 06/11/20 18:51 71 14 40 Intake and Output 06/11/20 06/12/20 19:00 07:00 Intake Total 350 ml 1390 ml Output Total 1350 ml 900 ml Balance -1000 ml 490 ml Free Water 200 ml 400 ml IV Total 30 ml 330 ml Tube Feeding 120 ml 660 ml Output Urine Total 1350 ml 900 ml General Appearance: no acute distress HEENT: normocephalic, status post trach Respiratory: chest wall non-tender, lungs clear, other - trach in place Cardiovascular: normal peripheral pulses, normal rate, regular rhythm Abdomen: normal bowel sounds, soft, non tender, non distended, other - GT Extremities: no cyanosis, no clubbing, no edema Neurologic: unresponsiveness Microbiology Date/Time Source Procedure Growth Status 06/11/20 00:00 Catheter Site Catheter Tip Culture - Preliminary NO GROWTH Resulted Laboratory Tests 06/11/20 23:15: POC Whole Blood Glucose 118H 06/12/20 04:00: White Blood Count 11.6H, Red Blood Count 2.81L, Hemoglobin 8.7L, Hematocrit 25.6L, Mean Corpuscular Volume 91, Mean Corpuscular Hemoglobin 31.0, Mean Corpuscular Hemoglobin Concent 34.0, Red Cell Distribution Width 14.1, Platelet Count 294, Mean Platelet Volume 8.2, Neutrophils (%) (Auto) 84.7H, Lymphocytes (%) (Auto) 11.0L, Monocytes (%) (Auto) 2.9, Eosinophils (%) (Auto) 0.4, Basophils (%) (Auto) 1.0, Sodium Level 142, Potassium Level 3.9, Chloride Level 108H, Carbon Dioxide Level 31, Anion Gap 3L, Blood Urea Nitrogen 19H, Creatinine 0.5L, Estimat Glomerular Filtration Rate > 60, Glucose Level 88, Calcium Level 9.3 Current Medications Medications (Trade) Dose Ordered Sig/Morgan Route PRN Reason Start Time Stop Time Status Last Admin Dose Admin Acetaminophen (Tylenol) 650 mg Q4H PRN GT Temp >100.5 05/16/20 06:15 06/15/20 06:14 05/31/20 13:15 Acetaminophen (Tylenol) 650 mg Q4H PRN RECTAL Temp >100.5 05/16/20 19:45 06/15/20 19:44 05/17/20 18:30 Atropine Sulfate (Atropine 0.4mg/ ml) 0.4 mg Q2HR PRN IVP HR <45 05/29/20 21:30 06/28/20 19:24 05/30/20 22:39 Ceftolozane/ Tazobactam 1.5 gm/ Sodium Chloride 110 ml @ 110 mls/hr Q8H IV 06/10/20 18:00 06/18/20 23:59 06/12/20 09:38 Chlorhexidine Gluconate (Lilliam-Hex 2%) 1 applic DAILY@1999 TOPIC 06/08/20 20:00 09/06/20 19:59 06/11/20 20:12 Docusate Sodium (Colace) 100 mg TWICE A DAY GT 06/07/20 18:00 07/07/20 17:59 06/12/20 09:36 Enoxaparin Sodium (Lovenox) 60 mg EVERY 12 HOURS SUBQ 06/03/20 21:00 09/01/20 20:59 06/12/20 09:37 Fludrocortisone Acetate (Florinef) 0.1 mg DAILY ORAL 06/05/20 09:00 07/05/20 08:59 06/12/20 09:36 Pantoprazole (Protonix) 40 mg DAILY IV 05/15/20 09:00 06/14/20 08:59 06/12/20 09:36 Polyethylene Glycol (Miralax) 17 gm BEDTIME GT 06/07/20 21:00 07/07/20 20:59 06/11/20 20:12 Sodium Chloride 1,000 ml @ 30 mls/hr Q24H IV 05/15/20 06:45 06/14/20 06:44 06/10/20 16:26 Zinc Oxide (Zinc Oxide) 1 applic TIDPRN PRN TOPIC Abdominal cramps 05/20/20 13:00 08/18/20 12:59 Assessment/Plan Assessment/Plan Pulmonary Progress Note Subjective ROS Limited/Unobtainable: Yes Allergies: Coded Allergies: DIVALPROEX SODIUM (Verified Allergy, Unknown, 05/14/20) PENICILLINS (Verified Allergy, Unknown, 05/14/20) All Systems: reviewed and negative except above Subjective stableovernight,in SDU Objective Vital Signs noted General Appearance: no acute distress HEENT: normocephalic, status post trach Respiratory: chest wall non-tender, lungs clear, other - trach in place Cardiovascular: normal peripheral pulses, normal rate, regular rhythm Abdomen: normal bowel sounds, soft, non tender, non distended, other - GT Extremities: no cyanosis, no clubbing, no edema Neurologic: unresponsiveness Microbiology Date/Time Source Procedure Growth Status 06/04/20 09:15 Blood Blood Culture - Preliminary Resulted Laboratory Tests noted Assessment/Plan Progress Note date and time: 06/10/20 0830 Subjective ROS Limited/Unobtainable: Yes Allergies: Coded Allergies: DIVALPROEX SODIUM (Verified Allergy, Unknown, 05/14/20) PENICILLINS (Verified Allergy, Unknown, 05/14/20) All Systems: reviewed and negative except above Subjective AYO care reviewed vent noted Objective Vital Signs noted General Appearance: no acute distress HEENT: normocephalic, status post trach Respiratory: chest wall non-tender, lungs clear, other - trach in place Cardiovascular: normal peripheral pulses, normal rate, regular rhythm Abdomen: normal bowel sounds, soft, non tender, non distended, other - GT Extremities: no cyanosis, no clubbing, no edema Neurologic: unresponsiveness Laboratory Tests noted Assessment/Plan IMPRESSION: 1. Chronic respiratory failure. 2. Diabetes mellitus with hyperglycemia. 3. Septic shock. 4. Chronic G-tube. 5. Decubitus. 6. History of CHF. 7. Tracheostomy 8. severe PCM 9. pleural effusions 10. atelectasis DISCUSSION: monitor vent setting and adjust Continue fluids and antibiotics. S/p trach- monitor care wean as able On 40% FiO2 DVT and GI prophylaxis. nutrition and protein replacement Respiratory precautions wean if able nutrition monitor protein levels off load position change monitor in AYO impression, plan, and exam edited and reviewed in detail care discussed with Erasto Waite MD Jun 12, 2020 16:39
--- NOTE | 2020-06-12 17:56 | Cardiac Electrophysiology PN ---
Assessment/Plan Assessment/Plan 1. Ecm-LQ-[id number] myocardial infarction with peak troponin of 3.4 EKG shows Inferolateral ischemia Due to septic shock, DCCV and Renal failure. Echo had poor windows. 2. PAF with RVR. S/P DCCV 3 times No more fib or accelerated junctional rhythm. Off beta-ramakrishna or calcium-channel raamkrishna for bradycardia 3. S/P Septic shock. On antibiotic. Off Midodrine in view of bradycardia and on Florinef 0.1 mg daily 4. Bradycardia requiring Atropine x 3 on 05/30/20. Off Dopamine. Off Midodrine 5. Severe hypernatremia with sodium of 174, BUN of 131, creatinine 2.7 due to dehydration. Improved. Cr 0.5 6. Dysphagia, status post PEG replacement per Dr Matos 7. History of CVA and dementia. 8. Respiratory failure, S/P Tracheostomy by Dr. Garcia 06/01/20 KIMMY RN Subjective Subjective In SDU in SR with no atrial fib. Occasionally emilia down to 50s S/P bradycardia and received atropine 3 times on 05/31/20 S/P Trach and PEG on 06/02/20. ECG 06/02/20 showed inferolateral ischemia On 40% Fio2 and Peep 5. Off Covid isolation Changed Right IJ line to Left IJ 06/10/20 Objective Last 24 Hour Vital Signs Date Time Temp Pulse Resp B/P (MAP) Pulse Ox O2 Delivery O2 Flow Rate FiO2 06/12/20 16:00 98.4 53 18 129/69 (89) 100 06/12/20 15:28 52 12 40 06/12/20 12:00 97.9 64 18 116/64 (81) 98 06/12/20 12:00 Mechanical Ventilator 06/12/20 12:00 40 06/12/20 11:12 55 12 40 06/12/20 08:12 40 06/12/20 08:00 56 06/12/20 08:00 97.0 57 18 108/59 (75) 98 06/12/20 08:00 Mechanical Ventilator 06/12/20 07:22 63 12 40 06/12/20 04:00 40 06/12/20 04:00 99.3 63 14 111/74 (86) 99 06/12/20 04:00 59 06/12/20 04:00 Mechanical Ventilator 06/12/20 02:51 58 15 40 10/4/20 00:00 70 06/12/20 00:00 Mechanical Ventilator 06/12/20 00:00 97.7 72 14 129/59 (82) 100 06/11/20 23:11 72 14 40 06/11/20 20:00 98.2 93 18 134/67 (89) 98 06/11/20 20:00 Mechanical Ventilator 06/11/20 20:00 68 06/11/20 20:00 40 06/11/20 18:51 71 14 40 Intake and Output 06/11/20 06/12/20 19:00 07:00 Intake Total 350 ml 1390 ml Output Total 1350 ml 900 ml Balance -1000 ml 490 ml Free Water 200 ml 400 ml IV Total 30 ml 330 ml Tube Feeding 120 ml 660 ml Output Urine Total 1350 ml 900 ml Laboratory Tests Test 06/11/20 23:15 06/12/20 04:00 POC Whole Blood Glucose 118 MG/DL (74-106) H White Blood Count 11.6 K/UL (4.8-10.8) H Red Blood Count 2.81 M/UL (4.20-5.40) L Hemoglobin 8.7 G/DL (12.0-16.0) L Hematocrit 25.6 % (37.0-47.0) L Mean Corpuscular Volume 91 FL (80-99) Mean Corpuscular Hemoglobin 31.0 PG (27.0-31.0) Mean Corpuscular Hemoglobin Concent 34.0 G/DL (32.0-36.0) Red Cell Distribution Width 14.1 % (11.6-14.8) Platelet Count 294 K/UL (150-450) Mean Platelet Volume 8.2 FL (6.5-10.1) Neutrophils (%) (Auto) 84.7 % (45.0-75.0) H Lymphocytes (%) (Auto) 11.0 % (20.0-45.0) L Monocytes (%) (Auto) 2.9 % (1.0-10.0) Eosinophils (%) (Auto) 0.4 % (0.0-3.0) Basophils (%) (Auto) 1.0 % (0.0-2.0) Sodium Level 142 MMOL/L (136-145) Potassium Level 3.9 MMOL/L (3.5-5.1) Chloride Level 108 MMOL/L (98-107) H Carbon Dioxide Level 31 MMOL/L (21-32) Anion Gap 3 mmol/L (5-15) L Blood Urea Nitrogen 19 mg/dL (7-18) H Creatinine 0.5 MG/DL (0.55-1.30) L Estimat Glomerular Filtration Rate > 60 mL/min (>60) Glucose Level 88 MG/DL (74-106) Calcium Level 9.3 MG/DL (8.5-10.1) Microbiology Date/Time Source Procedure Growth Status 06/11/20 00:00 Catheter Site Catheter Tip Culture - Preliminary NO GROWTH Resulted Objective HEAD AND NECK: No JVD. Tracheostomy in place. Left IJ line in place LUNGS: Coarse rhonchi. CARDIOVASCULAR: Regular S1 and S2 with no gallop. ABDOMEN: Soft. G-tube site in place EXTREMITIES: No pitting edema. Norman Morillo MD Jun 12, 2020 17:56
--- NOTE | 2020-06-12 19:30 | NUR ---
NURSE NOTES: Received patient from [facility] under the care of Dr. Wade for the admitting dx. of Raquel lyon with RVR. Patient is noted with allergies to PCN and depakote. Full code status. Patient is awake, non-verbal, semi-obtunded dependent. Opens eyes but doesn't track, pupils responsive to light-sluggish response bilaterally, upper extremities 2/5 strength, lower extremities 0/5. Ronchi-semi rale lung sounds throughout all lobes. Hr is 58 SB on satellite project site monitor, radial pulses noted bilaterally-equal. Femoral pulses noted-strong pulses. non-distended abdomen with active bowels sounds, GT noted with Glucerna 1.2 infusing at 60ml/hr. GT dressing dry and intact. Patient is trached dependent with a Shiley 8 with current settings of AC 12, 500tv, 40% FiO2 and peep of 5- tolerating vents well with current SpO2 of 98%, no respiratory distress at this time. Patient has a L IJ TLC infusing 1/2NS at 30ml/hr and NS TKO. Central line is dry, clean, intact and all lumens are patent. Skin alterations noted, p200 mattress noted, bellamy catheter noted draining yellow clear urine with some sediments and hanging via gravity below bladder. vitals are stable, bed in lowest position, bed alarm engaged, bed locked. Isolation precautions noted.
--- NOTE | 2020-06-12 19:55 | NUR ---
NURSE HAND-OFF REPORT: Important Events on Shift:notified respiratory that vent was getting disconnected Patient Status: full code Diet: gtube 60ml/hr flush q 6hrs Pending Orders: Pending Results/Labs: Pending notification: Latest Vital Signs: Temperature 98.4 , Pulse 52 , B/P 129 /69 , Respiratory Rate 18 , O2 SAT 100 , Mechanical Ventilator, O2 Flow Rate 12.0 . Vital Sign Comment: EKG Rhythm: Sinus Bradycardia Rhythm change?: N Notified?: Chucky Pierce MD Response: No New Orders Received Latest Garza Fall Score: 70 Fall Risk: High Risk Safety Measures: Call light Within Reach, Bed Alarm Zone 1, Side Rails Side Rails x3, Bed position Low and Locked. Fall Precautions: y Yellow Socks y Yellow Gown y Door Sign y Patient Fall Educa tion Report given to Renan/RN.
[2020-06-12 20:00] VITALS: BP 118/66
--- NOTE | 2020-06-12 20:00 | NUR ---
NURSE NOTES: Bed side assessment performed; patient assessed for pain using the FLACC scale method, FLACC scale noted to be 0/10. Afebrile at this time. CHG bath given. Tolerating GT feeds with minimum residuals noted 10ml. Pulses noted, SB on construction secretary. Awake, opens eyes spontaneously. Ora care, lavaged, and suctioned patient. Ventilator and airway tubing safety checked performed. Room safety checks performed. Skin, Fall and Aspiration precautions observed. Bed in lowest position, bed alarm remains engaged, bed remains in locked position, will continue to monitor.
[2020-06-12] MEDS: Dyna-Hex 2% Top Sol 2oz TOPIC SCH (20:15)
[2020-06-12] MEDS: Miralax 17gm pkt GT SCH (20:15)
[2020-06-13] VITALS: BP 119/63
--- NOTE | 2020-06-13 | NUR ---
NURSE NOTES: Patient is asleep and resting comfortably. FLACC scale noted to be 0/10. Tolerating GT feeding with 5mL residual noted. Pulses noted, SB on cardiac rn. Oral care and suctioning performed and patient tolerated them well. Ventilator and airway tubing safety checked performed. Room safety checks performed. Skin, Fall and Aspiration precautions observed. Bed in lowest position, bed alarm remains engaged, bed remains in locked position, will continue to monitor.
--- NOTE | 2020-06-13 02:00 | NUR ---
NURSE NOTES: FLACC scale noted to be 0/10. Afebrile at this time. Tolerating GT feeding with 10mL residual noted. Pulses noted, SB on property assessment monitor. Asleep, but opens eyes spontaneously. Oral care and suctioning performed and patient tolerated them well. Ventilator and airway tubing safety checked performed. Room safety checks performed. Skin, Fall and Aspiration precautions observed. Bed in lowest position, bed alarm remains engaged, bed remains in locked position, will continue to monitor.
[2020-06-13] MEDS: CEFTOLOZANE IV SCH ×3 (02:50→17:44)
[2020-06-13] MEDS: TAZOBACTAM IV SCH ×3 (02:50→17:44)
[2020-06-13] MEDS: NS IV SCH ×3 (02:50→17:44)
[2020-06-13 04:00] VITALS: BP 122/68
--- NOTE | 2020-06-13 04:00 | NUR ---
NURSE NOTES: Central line dressing changed. Area benign, with no redness or irritation noted. Patient is asleep and resting comfortably. FLACC scale noted to be 0/10. Tolerating GT feeding with 15mL residual noted. Pulses noted, SB on monitor and storage bin tender. Oral care and suctioning performed and patient tolerated them well. Ventilator and airway tubing safety checked performed. Room safety checks performed. Skin, Fall and Aspiration precautions observed. Bed in lowest position, bed alarm remains engaged, bed remains in locked position, will continue to monitor.
--- NOTE | 2020-06-13 06:00 | NUR ---
NURSE NOTES: Patient given Methadone and Morphine routine for pain. After reassessment FLACC scale noted to be 0/10 and still tolerating vent settings well. No sign of apparent distress noted at this time. Tolerating GT feeding with 15mL residual noted. Pulses noted, SB on bus driver/monitor. Oral care and suctioning performed and patient tolerated them well. Ventilator and airway tubing safety checked performed. Room safety checks performed. Skin, Fall and Aspiration precautions observed. Bed in lowest position, bed alarm remains engaged, bed remains in locked position, will continue to monitor. Addendum: 06/13/20 at 0606 by Pepito Kennedy RN RN Notes for wrong patient.
--- NOTE | 2020-06-13 06:00 | NUR ---
NURSE NOTES: Patient asleep but open eyes spontaneously. Blood specimen collected for labs. Turned and repositioned. Noted with 0/10 Flacc score. Call light within reach at all times, and bed on lowest position and locked. Bed alarms engaged. Ventilator and airway tubing safety check performed. Isolation precaution observed and maintained at all times. Will continue to monitor.
--- NOTE | 2020-06-13 06:30 | General Progress Note ---
Subjective ROS Limited/Unobtainable: No Allergies: Coded Allergies: DIVALPROEX SODIUM (Verified Allergy, Unknown, 05/14/20) PENICILLINS (Verified Allergy, Unknown, 05/14/20) Objective Last 24 Hour Vital Signs Date Time Temp Pulse Resp B/P (MAP) Pulse Ox O2 Delivery O2 Flow Rate FiO2 06/13/20 04:00 64 06/13/20 04:00 98.4 59 15 122/68 (86) 100 06/13/20 04:00 Mechanical Ventilator 06/13/20 04:00 40 06/13/20 03:30 56 12 40 06/13/20 00:00 98.2 61 14 119/63 (81) 95 06/13/20 00:00 59 06/13/20 00:00 Mechanical Ventilator 06/12/20 23:10 65 14 40 06/12/20 20:00 98.2 53 12 118/66 (83) 100 06/12/20 20:00 40 06/12/20 20:00 Mechanical Ventilator 06/12/20 19:32 59 06/12/20 19:20 64 13 40 06/12/20 16:00 40 06/12/20 16:00 52 06/12/20 16:00 98.4 53 18 129/69 (89) 100 06/12/20 16:00 Mechanical Ventilator 06/12/20 15:28 52 12 40 06/12/20 12:00 97.9 64 18 116/64 (81) 98 06/12/20 12:00 53 06/12/20 12:00 Mechanical Ventilator 06/12/20 12:00 40 06/12/20 11:12 55 12 40 06/12/20 08:12 40 06/12/20 08:00 56 06/12/20 08:00 97.0 57 18 108/59 (75) 98 06/12/20 08:00 Mechanical Ventilator 06/12/20 07:22 63 12 40 Intake and Output 06/12/20 06/13/20 19:00 07:00 Intake Total 90 ml 1060 ml Output Total 1000 ml 1200 ml Balance -910 ml -140 ml Free Water 400 ml IV Total 30 ml Tube Feeding 60 ml 660 ml Output Urine Total 1000 ml 1200 ml Height (Feet): 5 Height (Inches): 5.00 Weight (Pounds): 142 General Appearance: no apparent distress EENT: normal ENT inspection Neck: supple Cardiovascular: normal rate Respiratory/Chest: decreased breath sounds Abdomen: normal bowel sounds, non tender, soft Extremities: non-tender Assessment/Plan Status: stable Assessment/Plan: 1. History of CVA. 2. Dementia. 3. Dysphagia with G-tube. 4. Cachexia. 5. Diabetes. 6. Pressure ulcers. 7. Hypothyroidism. 8. Legal blindness. 9. Currently COVID positive. s/p peg and trach GTF monitor for residuals fu labs supportive care cbc in Jhon An MD Jun 13, 2020 06:30
[2020-06-13 07:27] LABS: BASOPHILS % (AUTO) 1.2 % (0.0-2.0); EOSINOPHILS % (AUTO) 0.6 % (0.0-3.0); HEMATOCRIT 26.6 % (37.0-47.0); HEMOGLOBIN 9.1 G/DL (12.0-16.0); LYMPHOCYTES % (AUTO) 10.6 % (20.0-45.0); MEAN CORPUSCULAR VOLUME 93 FL (80-99); NEUTROPHILS % (AUTO) 80.6 % (45.0-75.0); PLATELET COUNT 314 K/UL (150-450); RED BLOOD COUNT 2.85 M/UL (4.20-5.40); RED CELL DISTRIBUTION WIDTH 14.5 % (11.6-14.8); WHITE BLOOD COUNT 11.3 K/UL (4.8-10.8)
[2020-06-13 08:00] VITALS: BP 109/58
--- NOTE | 2020-06-13 08:00 | NUR ---
NURSE NOTES: Received pt, pt is sleeping, pt has trach connected to ventilator. pt has intact PICC L neck is running well. pt has Arauz cath in place is working well. pt has G tube in place is working well. all needs attended, bed is locked and is in the lowest position, call light within easy reach. will continue to mon
[2020-06-13 08:04] LABS: ANION GAP 7 mmol/L (5-15); BLOOD UREA NITROGEN 19 mg/dL (7-18); CALCIUM 9.5 MG/DL (8.5-10.1); CARBON DIOXIDE 29 MMOL/L (21-32); CHLORIDE 108 MMOL/L (98-107); CREATININE 0.6 MG/DL (0.55-1.30); PHOSPHORUS 2.3 MG/DL (2.5-4.9); POTASSIUM 3.7 MMOL/L (3.5-5.1); SODIUM 144 MMOL/L (136-145)
[2020-06-13] MEDS: Pantoprazole Inj IV SCH (09:45)
[2020-06-13] MEDS: Docusate 100mg/10ml Liq GT SCH ×2 (09:45→17:43)
[2020-06-13] MEDS: Enoxaparin 60mg Inj SUBQ SCH ×2 (09:49→20:28)
--- NOTE | 2020-06-13 10:33 | NUR ---
CASE MANAGEMENT: REVIEW SI: s/p COVID-19 . RESPIRATORY FAILURE s/p TRACHEOSTOMY PEG / TRACH 06/03 T 97.7 HR 56 RR 12 BP 109/58 SAT 100% MECH VENT FIO2 40 WBC 11.3 H/H 9.1/26.6 BUN 19 CULTURE IJ TIP FROM RIGHT SIDE CATH SITE IS: ZERBAXA IV Q8HR NS IVF @ 30ML/HR LOVENOX SUBQ Q12HR PROTONIX IV QD STEP DOWN UNIT STATUS DCP: PATIENT IS FROM [facility]
--- NOTE | 2020-06-13 10:53 | Pulmonology Progress Note ---
Subjective ROS Limited/Unobtainable: No Interval Events: None new Constitutional: Reports: no symptoms HEENT: Repors: no symptoms Respiratory: Reports: no symptoms Cardiovascular: Reports: no symptoms Gastrointestinal/Abdominal: Reports: no symptoms Genitourinary: Reports: no symptoms Allergies: Coded Allergies: DIVALPROEX SODIUM (Verified Allergy, Unknown, 05/14/20) PENICILLINS (Verified Allergy, Unknown, 05/14/20) All Systems: reviewed and negative except above Objective Last 24 Hour Vital Signs Date Time Temp Pulse Resp B/P (MAP) Pulse Ox O2 Delivery O2 Flow Rate FiO2 06/13/20 08:00 Mechanical Ventilator 06/13/20 08:00 97.7 56 13 109/58 (75) 100 06/13/20 07:09 58 12 40 06/13/20 04:00 64 06/13/20 04:00 98.4 59 15 122/68 (86) 100 06/13/20 04:00 Mechanical Ventilator 06/13/20 04:00 40 06/13/20 03:30 56 12 40 06/13/20 00:00 98.2 61 14 119/63 (81) 95 06/13/20 00:00 59 06/13/20 00:00 Mechanical Ventilator 06/12/20 23:10 65 14 40 06/12/20 20:00 98.2 53 12 118/66 (83) 100 06/12/20 20:00 40 06/12/20 20:00 Mechanical Ventilator 06/12/20 19:32 59 06/12/20 19:20 64 13 40 06/12/20 16:00 40 06/12/20 16:00 52 06/12/20 16:00 98.4 53 18 129/69 (89) 100 06/12/20 16:00 Mechanical Ventilator 06/12/20 15:28 52 12 40 06/12/20 12:00 97.9 64 18 116/64 (81) 98 06/12/20 12:00 53 06/12/20 12:00 Mechanical Ventilator 06/12/20 12:00 40 06/12/20 11:12 55 12 40 Intake and Output 06/12/20 06/13/20 18:59 06:59 Intake Total 60 ml 1530 ml Output Total 1000 ml 1200 ml Balance -940 ml 330 ml Free Water 400 ml IV Total 60 ml 410 ml Tube Feeding 720 ml Output Urine Total 1000 ml 1200 ml General Appearance: no acute distress HEENT: normocephalic, status post trach Respiratory: chest wall non-tender, lungs clear, other - trach in place Cardiovascular: normal peripheral pulses, normal rate, regular rhythm Abdomen: normal bowel sounds, soft, non tender, non distended, other - GT Extremities: no cyanosis, no clubbing, no edema Neurologic: unresponsiveness Microbiology Date/Time Source Procedure Growth Status 06/11/20 00:00 Catheter Site Catheter Tip Culture - Preliminary NO GROWTH Resulted Laboratory Tests 06/13/20 04:30: White Blood Count 11.3H, Red Blood Count 2.85L, Hemoglobin 9.1L, Hematocrit 26.6L, Mean Corpuscular Volume 93, Mean Corpuscular Hemoglobin 31.9H, Mean Corpuscular Hemoglobin Concent 34.2, Red Cell Distribution Width 14.5, Platelet Count 314, Mean Platelet Volume 7.6, Neutrophils (%) (Auto) 80.6H, Lymphocytes (%) (Auto) 10.6L, Monocytes (%) (Auto) 7.0, Eosinophils (%) (Auto) 0.6, Basophils (%) (Auto) 1.2, Sodium Level 144, Potassium Level 3.7, Chloride Level 108H, Carbon Dioxide Level 29, Anion Gap 7, Blood Urea Nitrogen 19H, Creatinine 0.6, Estimat Glomerular Filtration Rate > 60, Glucose Level 75, Calcium Level 9.5, Phosphorus Level 2.3L, Magnesium Level 2.2 Current Medications Medications (Trade) Dose Ordered Sig/Morgan Route PRN Reason Start Time Stop Time Status Last Admin Dose Admin Acetaminophen (Tylenol) 650 mg Q4H PRN GT Temp >100.5 05/16/20 06:15 06/15/20 06:14 05/31/20 13:15 Acetaminophen (Tylenol) 650 mg Q4H PRN RECTAL Temp >100.5 05/16/20 19:45 06/15/20 19:44 05/17/20 18:30 Atropine Sulfate (Atropine 0.4mg/ ml) 0.4 mg Q2HR PRN IVP HR <45 05/29/20 21:30 06/28/20 19:24 05/30/20 22:39 Ceftolozane/ Tazobactam 1.5 gm/ Sodium Chloride 110 ml @ 110 mls/hr Q8H IV 06/10/20 18:00 06/18/20 23:59 06/13/20 09:45 Chlorhexidine Gluconate (Lilliam-Hex 2%) 1 applic DAILY@1999 TOPIC 06/08/20 20:00 09/06/20 19:59 06/12/20 20:15 Docusate Sodium (Colace) 100 mg TWICE A DAY GT 06/07/20 18:00 07/07/20 17:59 06/13/20 09:45 Enoxaparin Sodium (Lovenox) 60 mg EVERY 12 HOURS SUBQ 06/03/20 21:00 09/01/20 20:59 06/13/20 09:49 Fludrocortisone Acetate (Florinef) 0.1 mg DAILY ORAL 06/05/20 09:00 07/05/20 08:59 06/13/20 09:45 Pantoprazole (Protonix) 40 mg DAILY IV 05/15/20 09:00 06/14/20 08:59 06/13/20 09:45 Polyethylene Glycol (Miralax) 17 gm BEDTIME GT 06/07/20 21:00 07/07/20 20:59 06/12/20 20:15 Sodium Chloride 1,000 ml @ 30 mls/hr Q24H IV 05/15/20 06:45 06/14/20 06:44 06/12/20 20:17 Zinc Oxide (Zinc Oxide) 1 applic TIDPRN PRN TOPIC Abdominal cramps 05/20/20 13:00 08/18/20 12:59 Assessment/Plan Assessment/Plan IMPRESSION: 1. Respiratory failure. 2. Diabetes mellitus with hyperglycemia. 3. Septic shock. 4. Chronic G-tube. 5. Decubitus. 6. History of CHF. DISCUSSION: Continue fluids and antibiotics. Pressors prn S/p trach Will continue weaning On 40% FiO2 DVT and GI prophylaxis. DC planning to sub-acute Discussed with Dr. Wade. S/p PEG Richard James Omar Syed MD Jun 13, 2020 10:53
--- NOTE | 2020-06-13 11:01 | General Progress Note ---
Subjective Date patient seen: Jun 13, 2020 Time patient seen: 09:30 ROS Limited/Unobtainable: Yes Allergies: Coded Allergies: DIVALPROEX SODIUM (Verified Allergy, Unknown, 05/14/20) PENICILLINS (Verified Allergy, Unknown, 05/14/20) Subjective LEFT IJ PLACED 06/10 Objective Last 24 Hour Vital Signs Date Time Temp Pulse Resp B/P (MAP) Pulse Ox O2 Delivery O2 Flow Rate FiO2 06/13/20 08:00 Mechanical Ventilator 06/13/20 08:00 97.7 56 13 109/58 (75) 100 06/13/20 07:29 53 06/13/20 07:09 58 12 40 06/13/20 04:00 64 06/13/20 04:00 98.4 59 15 122/68 (86) 100 06/13/20 04:00 Mechanical Ventilator 06/13/20 04:00 40 06/13/20 03:30 56 12 40 06/13/20 00:00 98.2 61 14 119/63 (81) 95 06/13/20 00:00 59 06/13/20 00:00 Mechanical Ventilator 06/12/20 23:10 65 14 40 06/12/20 20:00 98.2 53 12 118/66 (83) 100 06/12/20 20:00 40 06/12/20 20:00 Mechanical Ventilator 06/12/20 19:32 59 06/12/20 19:20 64 13 40 06/12/20 16:00 40 06/12/20 16:00 52 06/12/20 16:00 98.4 53 18 129/69 (89) 100 06/12/20 16:00 Mechanical Ventilator 06/12/20 15:28 52 12 40 06/12/20 12:00 97.9 64 18 116/64 (81) 98 06/12/20 12:00 53 06/12/20 12:00 Mechanical Ventilator 06/12/20 12:00 40 06/12/20 11:12 55 12 40 Intake and Output 06/12/20 06/13/20 19:00 07:00 Intake Total 90 ml 1470 ml Output Total 1000 ml 1200 ml Balance -910 ml 270 ml Free Water 400 ml IV Total 30 ml 410 ml Tube Feeding 60 ml 660 ml Output Urine Total 1000 ml 1200 ml Laboratory Tests 06/13/20 04:30: White Blood Count 11.3H, Red Blood Count 2.85L, Hemoglobin 9.1L, Hematocrit 26.6L, Mean Corpuscular Volume 93, Mean Corpuscular Hemoglobin 31.9H, Mean Corpuscular Hemoglobin Concent 34.2, Red Cell Distribution Width 14.5, Platelet Count 314, Mean Platelet Volume 7.6, Neutrophils (%) (Auto) 80.6H, Lymphocytes (%) (Auto) 10.6L, Monocytes (%) (Auto) 7.0, Eosinophils (%) (Auto) 0.6, Basophils (%) (Auto) 1.2, Sodium Level 144, Potassium Level 3.7, Chloride Level 108H, Carbon Dioxide Level 29, Anion Gap 7, Blood Urea Nitrogen 19H, Creatinine 0.6, Estimat Glomerular Filtration Rate > 60, Glucose Level 75, Calcium Level 9.5, Phosphorus Level 2.3L, Magnesium Level 2.2 Height (Feet): 5 Height (Inches): 5.00 Weight (Pounds): 142 General Appearance: WD/WN EENT: PERRL/EOMI Cardiovascular: normal rate Respiratory/Chest: decreased breath sounds Extremities: normal range of motion Neurologic: emergency service restorer II-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 # Sepsis with element of cardiogenic shock Etiology COVID 19 vs UTI vs bacteremia / contaminant and NSTEMI Gram positive bacteremia- contaminant; recurrent -05/14 Bcx 09/12 S. haemolyticus; 05/17 Bcx Neg -05/31 Bcx 09/10 P.a -06/01 Bcx Neg -06/04 Bcx GNR Pseudomona with S to Colistin and Polymixin, I to Ceftazidime -06/06 BCx - no growth CATH TIP cx 06/11 NGT Sputum Cx 05/25 with Pseudomonas. Colonizer and recent completion of 14 day treatment with Meropenem U cx 05/14 Proteus Mirabillis Meropenem 14 days completed Vancomycin stopped stopped Cefepime Dexamethasone 10 day course completed Leukocytosis improved. Monitor clinically for now and OFF antibiotics per ID COVID NEGATIVE x 2 05/25 and 05/26 ID Airport Operations Coordinator - Zerbaxa DAY 05/23 for MDR PsA bacteremia, if worsening can try double coverage w/ colistin or polyB but overall slightly stable currently - FINAL PLAN per ID for length of therapy ( 14 day course needed ) until 06/18/20 and will NEED follow up blood culture on 06/25/20 - SNF updated and UNABLE TO TAKE THE PATIENT ON Zerbaxa due to cost. MANAGER OF TAX UPDATED. - Removed R IJ line and tip culture 06/11 NEW LEFT IJ PLACED 06/10. 2 Physician consent signed with Dr. Romeo from ID. Conservator was updated by RN and no response obtained. # Acute respiratory failure Intubated. Self extubated 05/27 and re intubated by ED MD successfully. ICU care appreciated Dr. Rock following Ventilator management per ICU-pulmonary FiO2 40 % today. T piece. Medically tracheostomy was needed and life saving procedure as she is not tolerating wean off. Overall, her quality of life will not improve from prior baseline with advanced dementia. Will need permanent ventilator support via tracheostomy and subacute level of care. Critical care attending, Surgery and GI attendings notified to plan PEG and TRACH as medically indicated and completed 06/02/20 # SVT vs A. Flutter s/p DC x 3 # NSTEMI HR is controlled in the 100 range and tolerating Digoxin Vasopressors in place Levophed at [address] Morillo requested and TTE requested and poor window. Troponin 3.4 now 0.7 EKG 05/17 NSR, stable. Inferior wall ischemia # AG metabolic acidosis Ddx lactic acidosis Improved. # Hyperglycemia r/o DKA ABG and Ketones negative Endocrine consult with Dr. Shelley IV insulin gtt stopped and in SQ insulin coverage now # Hypernatremia resolved Improving Monitor BMP change IVF rate and start free water flush per PEG - Monitor and try to HL IVF # COVID 19 Positive on admission, now NEGATIVE as of 05/25/20 On Dexamethasone completed 10 day course Contact and droplet isolation # Dysphagia PEG REMOVED 05/16 Carlo Vargas consulted NGT placed and Tube feeds started 05/18 and being tolerated at 45 cc hr Glucerna 1.2 # Severe protein caloric malnutrition with Albumin 1.5 RD follow up # Thrombocytopenia Platelets down from 80 K to 64 K to 66 K ( OFF Heparin ) and improved to normal range. 05/17 dc heparin, use SCD, order US Liver, HIT Ab, HIV negative Monitor carefully as Lovenox was restarted 06/03 for DVT # Newly detected lower extremity DVT HOLD off anticoagulation as tracheostomy and PEG done 06/[address] Garcia and agreed to start anticoagulation therapy for DVT Lovenox at 1 mg Kg SQ q 12 hr started 06/03 PM # Hypokalemia # Hypophosphatemia Replace as needed # Anemia Etiology likely secondary to multiple blood draws vs RAULITO vs less likely GIB FOBT pending. iron studies SHOW IRON DEFICIENCY. ordered IV iron x 1 only Trend Hb and PRN PRBC if Hb less than 8, 1 unit 06/06 Hb 9 range now # Dementia Baseline #DISPOSITION SNF subacute and NEED TO APPROVE Zerbaxa until 06/18/20 as is the ONLY good antibiotic choice per blood cx sensitivities. # FULL CODE SW follow up to reach out to DPOA and consider change in code status due to high morbidity and risk of inpatient mortality. Paperwork completed for superior court of the [facility] for request of tracheostomy and gastrostomy placement due to medical need on 05/26/20 Bioethic consult requested and spoke with Dr. Hung from ethics and I agree with his assessment that the patient quality of life will NOT IMPROVE with tracheostomy and replacement of PEG. The patient is very limited due to her underlying dementia and now unable to wean off the ventilator. SHE HAD THE NEED TO GET A TRACHEOSTOMY and PEG was replaced 06/01/[address] aGrcia DUE TO MEDICAL NECESSITY AND LIFE SAVING PROCEDURES. DR. ROCK AND I AGREED AND SIGNED [address] FORM[address] PEND[address] DECISION REGARDING CODE STATUS. DNR IS MEDICALLY INDICATED. CURRENTLY FULL CODE BY PRIOR CONSERVATOR DECISION. > 50 min spent in coordination of care and consultation with physicians and RN. Jessica Wade MD Jun 13, 2020 11:01
[2020-06-13 11:55] VITALS: BP 104/53
--- NOTE | 2020-06-13 14:20 | Surgery Progress Note ---
Surgery Progress Note Subjective Procedure Performed trach egd with peg Additional Comments comfortable no n/v labs noted micro reviewed Objective Last 24 Hour Vital Signs Date Time Temp Pulse Resp B/P (MAP) Pulse Ox O2 Delivery O2 Flow Rate FiO2 06/13/20 12:00 40 06/13/20 11:59 Mechanical Ventilator 06/13/20 11:55 97.3 57 12 104/53 (70) 100 06/13/20 11:47 58 06/13/20 08:00 Mechanical Ventilator 06/13/20 08:00 97.7 56 13 109/58 (75) 100 06/13/20 08:00 40 06/13/20 07:29 53 06/13/20 07:09 58 12 40 06/13/20 04:00 64 06/13/20 04:00 98.4 59 15 122/68 (86) 100 06/13/20 04:00 Mechanical Ventilator 06/13/20 04:00 40 06/13/20 03:30 56 12 40 06/13/20 00:00 98.2 61 14 119/63 (81) 95 06/13/20 00:00 59 06/13/20 00:00 Mechanical Ventilator 06/12/20 23:10 65 14 40 06/12/20 20:00 98.2 53 12 118/66 (83) 100 06/12/20 20:00 40 06/12/20 20:00 Mechanical Ventilator 06/12/20 19:32 59 06/12/20 19:20 64 13 40 06/12/20 16:00 40 06/12/20 16:00 52 06/12/20 16:00 98.4 53 18 129/69 (89) 100 06/12/20 16:00 Mechanical Ventilator 06/12/20 15:28 52 12 40 I&O Intake and Output 06/12/20 06/13/20 19:00 07:00 Intake Total 90 ml 1470 ml Output Total 1000 ml 1200 ml Balance -910 ml 270 ml Free Water 400 ml IV Total 30 ml 410 ml Tube Feeding 60 ml 660 ml Output Urine Total 1000 ml 1200 ml Dressing: other Wound: other Cardiovascular: RSR Respiratory: decreased breath sounds Abdomen: soft, non-tender, present bowel sounds Extremities: no tenderness, no cyanosis Laboratory Tests Test 06/13/20 04:30 White Blood Count 11.3 K/UL (4.8-10.8) H Red Blood Count 2.85 M/UL (4.20-5.40) L Hemoglobin 9.1 G/DL (12.0-16.0) L Hematocrit 26.6 % (37.0-47.0) L Mean Corpuscular Volume 93 FL (80-99) Mean Corpuscular Hemoglobin 31.9 PG (27.0-31.0) H Mean Corpuscular Hemoglobin Concent 34.2 G/DL (32.0-36.0) Red Cell Distribution Width 14.5 % (11.6-14.8) Platelet Count 314 K/UL (150-450) Mean Platelet Volume 7.6 FL (6.5-10.1) Neutrophils (%) (Auto) 80.6 % (45.0-75.0) H Lymphocytes (%) (Auto) 10.6 % (20.0-45.0) L Monocytes (%) (Auto) 7.0 % (1.0-10.0) Eosinophils (%) (Auto) 0.6 % (0.0-3.0) Basophils (%) (Auto) 1.2 % (0.0-2.0) Sodium Level 144 MMOL/L (136-145) Potassium Level 3.7 MMOL/L (3.5-5.1) Chloride Level 108 MMOL/L (98-107) H Carbon Dioxide Level 29 MMOL/L (21-32) Anion Gap 7 mmol/L (5-15) Blood Urea Nitrogen 19 mg/dL (7-18) H Creatinine 0.6 MG/DL (0.55-1.30) Estimat Glomerular Filtration Rate > 60 mL/min (>60) Glucose Level 75 MG/DL (74-106) Calcium Level 9.5 MG/DL (8.5-10.1) Phosphorus Level 2.3 MG/DL (2.5-4.9) L Magnesium Level 2.2 MG/DL (1.8-2.4) Plan Problems: (1) Hypernatremia (2) Renal failure (3) Respiratory failure (4) Sepsis Assessment & Plan: COVID + leukocytosis anemia electrolytes abnormal on iv fluids renal input appreciated cxr noted abx as per ID will follow with recs Will likely need trach difficult weaning conservatorship working with case management social work to figure out goals of care s/p peg and trach improving much more comfortable Interim placement of orogastric tube, also documented on recent abdominal radiograph. Stable satisfactory position of endotracheal tube and right jugular central venous catheter. There is increased pleural fluid and likely left basilar consolidation/atelectasis. The right lung and pleural space remain clear. Impression: Increasing left pleural fluid and likely basilar consolidation/atelectasis. Interim orogastric intubation DAILY ESTIMATED NEEDS: Needs based on Pulmonary, DM, wounds 66.6kg 25-30 kcals/kg 3074-1571 total kcals 1.25-1.5 g protein/kg 83-100 g total protein 20-25 mL/kg 8211-2864 total fluid mLs NUTRITION DIAGNOSIS: Swallowing difficulty r/t dysphagia as evidenced by h/o CVA, pt is GT dep, currently ICU status, now intubated, off pressor support, GT feeds initiated. CURRENT TF:Glucerna 1.2 @45ml/hr ENTERAL NUTRITION RECOMMENDATIONS: As medically able: GLUCERNA 1.5 goal of 45ml/hr x24 hrs to provide 1080ml, 1620 kcal, 89g pro, 820ml free H2O -> as medically able without aspiration risk start Glucerna 1.5 @low rate 25ml/hr for 6 hrs. Advance as tolerated 10ml/hr q4-6 hrs to goal. - Flush per , HOB over 30 degrees. ---- If not hemodynamically stable, rec trophic feeds of 5-10ml/hr to maintain gut integrity. ADDITIONAL RECOMMENDATIONS: 1) Obtain an accurate calibrated bed scale wt 2) F/up w/ H&P 3) With active TF orders, add JASMYN BID for noted DTPI wounds 4) TF recs as above when off bipap and w/ hemodynamic stability -> Now intubated, off pressors, on GT feeds. he spleen size is normal. The gallbladder contains sludge. No stones. No wall thickening nor pericholecystic fluid. Common bile duct measures 4 mm in diameter. Small amount free fluid is seen adjacent to the liver and spleen Impression: Gallbladder sludge. Negative for dilated bile ducts Normal appearing liver and spleen Patient with respiratory failure intubated on support unable to wean safely. A tracheostomy in this case would be indicated and recommended. Patient is full code but conserved. Given her condition waiting a significant period of time is at high risk for her given the risk for extubation duration of tube and worsening with her ET tube. A trach would be functional manageable for her and recommended. Unfortunately waiting for the time. Would be advisable and discussed with the social workers catalytic case operator and medical teams. Ammunition Storekeeper as well. ICU team as well. We will proceed with tracheostomy in patient's best interest given her CODE STATUS and wishes and care plan. i have been asked by GI and medical teams to place PEG as well. after careful evaluation I agree with medical teams that patient would also benefit from feeding tube access. given her condition, Covid status, care plan, goals of care, will place peg at same time of trach to minimize exposure and OR time and limit procedure risks for patient. (5) Elevated d-dimer (6) COVID-19 Assessment & Plan: ++ (7) Pressure ulcer Assessment & Plan: Pt presented on admission with multiple Pressure injuries .DTPI noted to R Buttocks (L)3.8cm x (W)3.4cm. Base of wound is purpuric,fluctuant with surrounding maroon and indurated borders. DTPI Upper L Buttocks(L)5.5cm x (W)4cm. Base of wound is maroon and indurated. Borders are irregular. Non-Blanchable erythema without induration/fluctuance L lower buttocks(L)4cm x (W)7cm. R and L heels are soft but blanchable. Erosion noted at peristomal GT site. Site is erythematous and excoriated. Small amt. sanguineous exudate. Tx.Plan: Apply Moisture Barrier Paste to Sacrum, R and L Buttocks. Cover each area with Optifoam drsg. Change every 3 days and prn. Apply Moisture Barrier Paste to R and L Ischial tuberosities with each incontinence care. Apply Cavilon Skin Barrier to both heels. Cover each heel and malleoli with Optifoam drsg. Change every 7 days and prn. Reposition at least every 2hours or as tolerated. Off-load heels with pillow. APM/DARIN Mattress overlay. Apply Zinc Oxide Paste TID to GT site. Leave open to Air. (8) Dementia (9) CVA (cerebral vascular accident) (10) T2DM (type 2 diabetes mellitus) (11) Gastrostomy present (12) COVID-19 (13) Rapid atrial fibrillation Paul Garcia Jun 13, 2020 14:20
--- NOTE | 2020-06-13 14:21 | Cardiac Electrophysiology PN ---
Assessment/Plan Assessment/Plan 1. Jar-GT-mcwlssobn myocardial infarction with peak troponin of 3.4 EKG shows Inferolateral ischemia Due to septic shock, DCCV and Renal failure. Echo had poor windows. 2. PAF with RVR. S/P DCCV 3 times No more fib or accelerated junctional rhythm. Off beta-ramakrishna or calcium-channel ramakrishna for bradycardia 3. S/P Septic shock. On antibiotic. Off Midodrine in view of bradycardia and on Florinef 0.1 mg daily 4. Bradycardia requiring Atropine x 3 on 05/30/20. Off Dopamine. Off Midodrine 5. Severe hypernatremia with sodium of 174, BUN of 131, creatinine 2.7 due to dehydration. Improved. Cr 0.5 6. Dysphagia, status post PEG replacement per Dr Matos 7. History of CVA and dementia. 8. Respiratory failure, S/P Tracheostomy by Dr. Garcia 06/01/20 KIMMY RN Subjective Subjective In SDU in SR with no atrial fib. Charles in 50s S/P bradycardia and received atropine 3 times on 05/31/20 S/P Trach and PEG on 06/02/20. ECG 06/02/20 showed inferolateral ischemia On 40% Fio2 and Peep 5. Off Covid isolation Objective Last 24 Hour Vital Signs Date Time Temp Pulse Resp B/P (MAP) Pulse Ox O2 Delivery O2 Flow Rate FiO2 06/13/20 12:00 40 06/13/20 11:59 Mechanical Ventilator 06/13/20 11:55 97.3 57 12 104/53 (70) 100 06/13/20 11:47 58 06/13/20 08:00 Mechanical Ventilator 06/13/20 08:00 97.7 56 13 109/58 (75) 100 06/13/20 08:00 40 06/13/20 07:29 53 06/13/20 07:09 58 12 40 06/13/20 04:00 64 06/13/20 04:00 98.4 59 15 122/68 (86) 100 06/13/20 04:00 Mechanical Ventilator 06/13/20 04:00 40 06/13/20 03:30 56 12 40 06/13/20 00:00 98.2 61 14 119/63 (81) 95 06/13/20 00:00 59 06/13/20 00:00 Mechanical Ventilator 06/12/20 23:10 65 14 40 06/12/20 20:00 98.2 53 12 118/66 (83) 100 06/12/20 20:00 40 06/12/20 20:00 Mechanical Ventilator 06/12/20 19:32 59 06/12/20 19:20 64 13 40 06/12/20 16:00 40 06/12/20 16:00 52 06/12/20 16:00 98.4 53 18 129/69 (89) 100 06/12/20 16:00 Mechanical Ventilator 06/12/20 15:28 52 12 40 Intake and Output0 06/12/20 06/13/20 19:00 07:00 Intake Total 90 ml 1470 ml Output Total 1000 ml 1200 ml Balance -910 ml 270 ml Free Water 400 ml IV Total 30 ml 410 ml Tube Feeding 60 ml 660 ml Output Urine Total 1000 ml 1200 ml Laboratory Tests Test 06/13/20 04:30 White Blood Count 11.3 K/UL (4.8-10.8) H Red Blood Count 2.85 M/UL (4.20-5.40) L Hemoglobin 9.1 G/DL (12.0-16.0) L Hematocrit 26.6 % (37.0-47.0) L Mean Corpuscular Volume 93 FL (80-99) Mean Corpuscular Hemoglobin 31.9 PG (27.0-31.0) H Mean Corpuscular Hemoglobin Concent 34.2 G/DL (32.0-36.0) Red Cell Distribution Width 14.5 % (11.6-14.8) Platelet Count 314 K/UL (150-450) Mean Platelet Volume 7.6 FL (6.5-10.1) Neutrophils (%) (Auto) 80.6 % (45.0-75.0) H Lymphocytes (%) (Auto) 10.6 % (20.0-45.0) L Monocytes (%) (Auto) 7.0 % (1.0-10.0) Eosinophils (%) (Auto) 0.6 % (0.0-3.0) Basophils (%) (Auto) 1.2 % (0.0-2.0) Sodium Level 144 MMOL/L (136-145) Potassium Level 3.7 MMOL/L (3.5-5.1) Chloride Level 108 MMOL/L (98-107) H Carbon Dioxide Level 29 MMOL/L (21-32) Anion Gap 7 mmol/L (5-15) Blood Urea Nitrogen 19 mg/dL (7-18) H Creatinine 0.6 MG/DL (0.55-1.30) Estimat Glomerular Filtration Rate > 60 mL/min (>60) Glucose Level 75 MG/DL (74-106) Calcium Level 9.5 MG/DL (8.5-10.1) Phosphorus Level 2.3 MG/DL (2.5-4.9) L Magnesium Level 2.2 MG/DL (1.8-2.4) Microbiology Date/Time Source Procedure Growth Status 06/11/20 00:00 Catheter Site Catheter Tip Culture - Preliminary Gram Positive Cocci Resulted Objective HEAD AND NECK: No JVD. Tracheostomy in place. Left IJ line in place LUNGS: Coarse rhonchi. CARDIOVASCULAR: Regular S1 and S2 with no gallop. ABDOMEN: Soft. G-tube site in place EXTREMITIES: No pitting edema. Norman Morillo MD Jun 13, 2020 14:21
--- NOTE | 2020-06-13 14:58 | Infectious Diseases Prog Note ---
Assessment/Plan 70 yo female with PMHx of Dementia, DM, CVA ( S/P PEG), COVID 19 infection and pressure ulcers. Septic Shock-combination cardiogenic and septic; SP Gram positive bacteremia- contaminant; recurrent Right IJ changed to left IJ 06/10/20 MDR PsA bacteremia- likely from PNA -05/14 Bcx 09/12 S. haemolyticus; 05/17 Bcx Neg -05/31 Bcx /2 P.a -06/01 Bcx Neg -06/04 Bcx P.a MDR -06/06 BCx - NTD -06/11 SP R IJ cath removal- tip cath cx <10 GPC UTI, sp rx UA (+); ucx 10-20k P. mirabilis (S Ceftriaxone, Cefepime) PNA, superimposed bacterial, sp rx Recent COVID19 pna- now repeat neg x2 -05/27 CXR: Previously seen left lung atelectasis has nearly completely resolved. Retrocardiac atelectasis without or with some component of consolidation. Low lung volumes with bronchovascular crowding. -05/26 CXR: Complete opacification of the left hemithorax with mediastinal shift to the left likely due to complete atelectasis of the left lung perhaps from mucous plugging. rapid COVID PCR neg -05/25 sp cx MDR PsA (I Ceftazidime, Colistin, Polymixin B); suspect colonizer SARS-COV2 neg -05/24 SARS-COV2 pCR inconclusive -05/23 CXR: Worsening aeration with increasing hazy opacification of the left lung base which may related to increased layering pleural effusion and adjacent atelectasis/consolidation. -05/19 CXR: Increasing left pleural fluid and likely basilar consolidation/atelectasis. Interim orogastric intubation 05/16 CXR: Retrocardiac density may represent atelectasis versus infiltrate. CXR 05/14/20 showed Retrocardiac atelectasis/infiltrate with Pulmonary venous congestion. sp cx MDR E.coli (S Cefepime, Meropenem, Zosyn) Hx of COVID 19 - Bacteria secondary infection? Asp PNA? COVID 19 tested Pos [facility] - about 3 week [facility]ING [facility] -still positive Rapid COVID PCR 05/14 Resp Fail Intuabted on Vent Leukocytosis; increased (sp steroids)- SP Fever; low grade ,recurrent -06/01 u/a wbc 10-15, nit neg, leuk +1 L femoral DVT EMA, SP SVT -sp cardioversion Hyperglycemia Elevated LFTs; resolving -Abd US: Gallbladder sludge. Negative for dilated bile ducts. Normal appearing liver and spleen. Trace ascites sp trach/peg 06/01 Dementia DM Hx CVA ( S/P PEG) pressure ulcers PLAN - Continue Zerbaxa #05/23 ( End date 06/18/20) - Please repeat Blood Cx 1 week after stopping abx to assure clearance of bacteremia - The lab is working on Zerbaxa and Avycaz Sensi - 06/03/20 SP Meropenem #2 - 06/02/20 SP Vancomycin #2 - 05/27 SP Meropenem #11 - 05/24 SP Decadron #11 - 05/19 SP IV Vancomcyin #6 - 05/17 SP Cefepime #4 - f/u Cultures - Monitor CBC and Temps -repeat covid neg x2 -f/u repeat cultures Thank you for consulting [facility]. Will continue to follow along with you. Discussed with RN and Pharmacy staff Subjective Allergies: Coded Allergies: DIVALPROEX SODIUM (Verified Allergy, Unknown, 05/14/20) PENICILLINS (Verified Allergy, Unknown, 05/14/20) afebrile mild leukocytosis repeat Bcx NTD Objective Last 24 Hour Vital Signs Date Time Temp Pulse Resp B/P (MAP) Pulse Ox O2 Delivery O2 Flow Rate FiO2 06/13/20 12:00 40 06/13/20 11:59 Mechanical Ventilator 06/13/20 11:55 97.3 57 12 104/53 (70) 100 06/13/20 11:47 58 06/13/20 08:00 Mechanical Ventilator 06/13/20 08:00 97.7 56 13 109/58 (75) 100 06/13/20 08:00 40 06/13/20 07:29 53 06/13/20 07:09 58 12 40 06/13/20 04:00 64 06/13/20 04:00 98.4 59 15 122/68 (86) 100 06/13/20 04:00 Mechanical Ventilator 06/13/20 04:00 40 06/13/20 03:30 56 12 40 06/13/20 00:00 98.2 61 14 119/63 (81) 95 06/13/20 00:00 59 06/13/20 00:00 Mechanical Ventilator 06/12/20 23:10 65 14 40 06/12/20 20:00 98.2 53 12 118/66 (83) 100 06/12/20 20:00 40 06/12/20 20:00 Mechanical Ventilator 06/12/20 19:32 59 06/12/20 19:20 64 13 40 06/12/20 16:00 40 06/12/20 16:00 52 06/12/20 16:00 98.4 53 18 129/69 (89) 100 06/12/20 16:00 Mechanical Ventilator 06/12/20 15:28 52 12 40 Height (Feet): 5 Height (Inches): 5.00 Weight (Pounds): 142 GEN: On Vent HEENT: NCAT, MMM, Pulm: Equal rise and fall B/L ABD: Soft, ND, PEG Microbiology Date/Time Source Procedure Growth Status 06/11/20 00:00 Catheter Site Catheter Tip Culture - Preliminary Gram Positive Cocci Resulted Laboratory Tests Test 06/13/20 04:30 White Blood Count 11.3 K/UL (4.8-10.8) H Red Blood Count 2.85 M/UL (4.20-5.40) L Hemoglobin 9.1 G/DL (12.0-16.0) L Hematocrit 26.6 % (37.0-47.0) L Mean Corpuscular Volume 93 FL (80-99) Mean Corpuscular Hemoglobin 31.9 PG (27.0-31.0) H Mean Corpuscular Hemoglobin Concent 34.2 G/DL (32.0-36.0) Red Cell Distribution Width 14.5 % (11.6-14.8) Platelet Count 314 K/UL (150-450) Mean Platelet Volume 7.6 FL (6.5-10.1) Neutrophils (%) (Auto) 80.6 % (45.0-75.0) H Lymphocytes (%) (Auto) 10.6 % (20.0-45.0) L Monocytes (%) (Auto) 7.0 % (1.0-10.0) Eosinophils (%) (Auto) 0.6 % (0.0-3.0) Basophils (%) (Auto) 1.2 % (0.0-2.0) Sodium Level 144 MMOL/L (136-145) Potassium Level 3.7 MMOL/L (3.5-5.1) Chloride Level 108 MMOL/L (98-107) H Carbon Dioxide Level 29 MMOL/L (21-32) Anion Gap 7 mmol/L (5-15) Blood Urea Nitrogen 19 mg/dL (7-18) H Creatinine 0.6 MG/DL (0.55-1.30) Estimat Glomerular Filtration Rate > 60 mL/min (>60) Glucose Level 75 MG/DL (74-106) Calcium Level 9.5 MG/DL (8.5-10.1) Phosphorus Level 2.3 MG/DL (2.5-4.9) L Magnesium Level 2.2 MG/DL (1.8-2.4) Current Medications Medications (Trade) Dose Ordered Sig/Morgan Route PRN Reason Start Time Stop Time Status Last Admin Dose Admin Acetaminophen (Tylenol) 650 mg Q4H PRN GT Temp >100.5 05/16/20 06:15 06/15/20 06:14 05/31/20 13:15 Acetaminophen (Tylenol) 650 mg Q4H PRN RECTAL Temp >100.5 05/16/20 19:45 06/15/20 19:44 05/17/20 18:30 Atropine Sulfate (Atropine 0.4mg/ ml) 0.4 mg Q2HR PRN IVP HR <45 05/29/20 21:30 06/28/20 19:24 05/30/20 22:39 Ceftolozane/ Tazobactam 1.5 gm/ Sodium Chloride 110 ml @ 110 mls/hr Q8H IV 06/10/20 18:00 06/18/20 23:59 06/13/20 09:45 Chlorhexidine Gluconate (Lilliam-Hex 2%) 1 applic DAILY@2000 TOPIC 06/08/20 20:00 09/06/20 19:59 06/12/20 20:15 Docusate Sodium (Colace) 100 mg TWICE A DAY GT 06/07/20 18:00 07/07/20 17:59 06/13/20 09:45 Enoxaparin Sodium (Lovenox) 60 mg EVERY 12 HOURS SUBQ 06/03/20 21:00 09/01/20 20:59 06/13/20 09:49 Fludrocortisone Acetate (Florinef) 0.1 mg DAILY ORAL 06/05/20 09:00 07/05/20 08:59 06/13/20 09:45 Pantoprazole (Protonix) 40 mg DAILY IV 05/15/20 09:00 06/14/20 08:59 06/13/20 09:45 Polyethylene Glycol (Miralax) 17 gm BEDTIME GT 06/07/20 21:00 07/07/20 20:59 06/12/20 20:15 Sodium Chloride 1,000 ml @ 30 mls/hr Q24H IV 05/15/20 06:45 06/14/20 06:44 06/12/20 20:17 Zinc Oxide (Zinc Oxide) 1 applic TIDPRN PRN TOPIC Abdominal cramps 05/20/20 13:00 08/18/20 12:59 Yomaira Terry M.D. Jun 13, 2020 14:58
[2020-06-13 16:00] VITALS: BP 126/60
--- NOTE | 2020-06-13 16:52 | NUR ---
NURSE NOTES: wound treatment done as order and pt tolerated well. will continue to monitor.
[2020-06-13] MEDS ORDERED: Lactulose 20gm/30ml UDC GT PRN (17:00)
--- NOTE | 2020-06-13 19:20 | NUR ---
NURSE HAND-OFF REPORT: Important Events on Shift: Patient Status: Diet: Pending Orders: Pending Results/Labs: Pending MD notification: Latest Vital Signs: Temperature 98.4 , Pulse 78 , B/P 126 /60 , Respiratory Rate 19 , O2 SAT 100 , Mechanical Ventilator, O2 Flow Rate 12.0 . Vital Sign Comment: EKG Rhythm: Sinus Rhythm Rhythm change?: N Notified?: Chucky Pierce MD Response: No New Orders Received Latest Garza Fall Score: 70 Fall Risk: High Risk Safety Measures: Call light Within Reach, Bed Alarm Zone 1, Side Rails Side Rails x3, Bed position Low and Locked. Fall Precautions: Yellow Socks Yellow Gown Door Sign Patient Fall Education Report given to . pt is sleeping and stable, no stress noted. Endorsed plan of care.
--- NOTE | 2020-06-13 19:21 | NUR ---
NURSE NOTES: Report received from [facility]. Pt obtunded, unable to make needs known, resistive to care. Saturating at 100% on prescribed vent settings. EKG shows SR at 71 bpm. 0 residual g-tube running Glucerna 1.2 at 60 cc. Left IJ intact running 1/2 NS at 30 cc. Arauz draining well to gravity. No anuria noted. Bed kept in lowest and locked position. Bed alarm on. Will continue monitoring.
[2020-06-13 20:00] VITALS: BP 137/71
--- NOTE | 2020-06-13 20:00 | NUR ---
NURSE NOTES: Trach site noted to have copious amounts of blood, and upon suctioning. Trach site inserted 06/01. Will d/w RT to change site regularly. Will leave message for .
[2020-06-13] MEDS: Dyna-Hex 2% Top Sol 2oz TOPIC SCH (20:27)
[2020-06-13] MEDS: Miralax 17gm pkt GT SCH (20:27)
[2020-06-13] MEDS ORDERED: 1/2 NS 1000ml IV ONE (21:03)
[2020-06-13] MEDS ORDERED: NS 275ml ONE (21:03)
[2020-06-14] VITALS: BP 116/67
[2020-06-14] MEDS: TAZOBACTAM IV SCH ×3 (01:41→17:46)
[2020-06-14] MEDS: CEFTOLOZANE IV SCH ×3 (01:41→17:46)
[2020-06-14] MEDS: NS IV SCH ×3 (01:41→17:46)
[2020-06-14 04:00] VITALS: BP 102/59
[2020-06-14 06:51] LABS: ANION GAP 2 mmol/L (5-15); BLOOD UREA NITROGEN 15 mg/dL (7-18); CALCIUM 9.3 MG/DL (8.5-10.1); CARBON DIOXIDE 33 MMOL/L (21-32); CHLORIDE 107 MMOL/L (98-107); CREATININE 0.5 MG/DL (0.55-1.30); POTASSIUM 3.6 MMOL/L (3.5-5.1); SODIUM 142 MMOL/L (136-145)
[2020-06-14 06:53] LABS: HEMATOCRIT 19.7 % (37.0-47.0); MEAN CORPUSCULAR VOLUME 93 FL (80-99); PLATELET COUNT 283 K/UL (150-450); RED BLOOD COUNT 2.13 M/UL (4.20-5.40); RED CELL DISTRIBUTION WIDTH 14.4 % (11.6-14.8); WHITE BLOOD COUNT 9.7 K/UL (4.8-10.8)
--- NOTE | 2020-06-14 07:00 | NUR ---
NURSE NOTES: Awaiting orders from Dr. Garcia in regards to trach site. Lab called with critical lab of Hgb 6.7. Will endorse to oncoming RN.
--- NOTE | 2020-06-14 07:15 | NUR ---
NURSE HAND-OFF REPORT: Important Events on Shift: Low hgb, trach site bleeding Patient Status: Stable Diet: Glucerna Pending Orders: Y Pending Results/Labs: Y Pending notification: yanick Johnson Latest Vital Signs: Temperature 98.0 , Pulse 68 , B/P 102 /59 , Respiratory Rate 20 , O2 SAT 100 , Mechanical Ventilator, O2 Flow Rate 12.0 . Vital Sign Comment: WNL EKG Rhythm: Sinus Rhythm Rhythm change?: N Notified?: Chucky Pierce MD Response: No New Orders Received Latest Garza Fall Score: 70 Fall Risk: High Risk Safety Measures: Call light Within Reach, Bed Alarm Zone 1, Side Rails Side Rails x3, Bed position Low and Locked. Fall Precautions: Yellow Socks Yellow Gown Door Sign Patient Fall Education Report given to [facility]
--- NOTE | 2020-06-14 07:17 | NUR ---
NURSE NOTES: Received pt fr4om RN Verena, pt is sleeping, pt has trach connected to ventilator. pt has intact triple lumen LIJ is running well. pt has Arauz cath in place is working well. pt has G tube in place is working well. no pain noted. all needs attended, bed is locked and is in the lowest position, call light within easy reach. will continue to monitor.
[2020-06-14 07:30] LABS: HEMOGLOBIN 6.7 G/DL (12.0-16.0)
--- NOTE | 2020-06-14 07:41 | NUR ---
NURSE NOTES: Dr Wade is aware about HB 6.7 Hct 19.7, waiting to call back. will continue to monitor.
[2020-06-14 08:00] VITALS: BP 108/60
--- NOTE | 2020-06-14 08:01 | NUR ---
NURSE NOTES: RN called Dr Wade about HB 6.7 again, waiting to call back. will continue to monitor.
[2020-06-14] MEDS: Docusate 100mg/10ml Liq GT SCH ×2 (08:59→17:46)
[2020-06-14] MEDS: Enoxaparin 60mg Inj SUBQ SCH (09:00)
--- NOTE | 2020-06-14 09:13 | NUR ---
NURSE NOTES: Dr Wade called back and ordered repeat CBC stat, noted and carried out. will continue to monitor.
--- NOTE | 2020-06-14 09:43 | NUR ---
NURSE NOTES: Dr Garcia is aware suction is bloody, will come today to visit pt. will continue to monitor.
[2020-06-14 09:48] LABS: BASOPHILS % (AUTO) 2.1 % (0.0-2.0); EOSINOPHILS % (AUTO) 0.4 % (0.0-3.0); HEMATOCRIT 24.2 % (37.0-47.0); HEMOGLOBIN 8.2 G/DL (12.0-16.0); LYMPHOCYTES % (AUTO) 12.4 % (20.0-45.0); MEAN CORPUSCULAR VOLUME 92 FL (80-99); MONOCYTES % (AUTO) 8.1 % (1.0-10.0); NEUTROPHILS % (AUTO) 76.9 % (45.0-75.0); PLATELET COUNT 258 K/UL (150-450); RED BLOOD COUNT 2.63 M/UL (4.20-5.40); RED CELL DISTRIBUTION WIDTH 14.8 % (11.6-14.8)
--- NOTE | 2020-06-14 09:49 | NUR ---
NURSE NOTES: Dr Enriquez visited pt and is aware suction is bloody, MD will F/U, no new order to RN. will continue to monitor.
--- NOTE | 2020-06-14 09:55 | Pulmonology Progress Note ---
Subjective ROS Limited/Unobtainable: Yes Interval Events: Tracheal bleding noted Constitutional: Reports: no symptoms HEENT: Repors: no symptoms Respiratory: Reports: no symptoms Cardiovascular: Reports: no symptoms Gastrointestinal/Abdominal: Reports: no symptoms Genitourinary: Reports: no symptoms Allergies: Coded Allergies: DIVALPROEX SODIUM (Verified Allergy, Unknown, 05/14/20) PENICILLINS (Verified Allergy, Unknown, 05/14/20) All Systems: reviewed and negative except above Objective Last 24 Hour Vital Signs Date Time Temp Pulse Resp B/P (MAP) Pulse Ox O2 Delivery O2 Flow Rate FiO2 06/14/20 08:00 97.1 54 12 108/60 (76) 100 06/14/20 07:55 40 06/14/20 07:53 53 06/14/20 07:51 Mechanical Ventilator 06/14/20 04:10 68 06/14/20 04:00 98.0 68 20 102/59 (73) 100 06/14/20 04:00 Mechanical Ventilator 06/14/20 04:00 40 06/14/20 03:13 71 18 40 06/14/20 00:00 Mechanical Ventilator 06/14/20 00:00 40 06/14/20 00:00 98.2 65 16 116/67 (83) 100 06/13/20 23:36 72 06/13/20 23:03 73 17 40 06/13/20 20:00 Mechanical Ventilator 06/13/20 20:00 98.3 67 24 137/71 (93) 100 06/13/20 20:00 40 06/13/20 20:00 71 06/13/20 19:03 70 15 40 06/13/20 16:00 98.4 78 19 126/60 (82) 100 06/13/20 16:00 40 06/13/20 15:56 Mechanical Ventilator 06/13/20 15:15 72 06/13/20 15:00 61 17 40 06/13/20 12:00 40 06/13/20 11:59 Mechanical Ventilator 06/13/20 11:55 97.3 57 12 104/53 (70) 100 06/13/20 11:47 58 06/13/20 11:07 81 25 40 Intake and Output 06/13/20 06/14/20 19:00 07:00 Intake Total 1652 ml 1169.3 ml Output Total 1000 ml 1500 ml Balance 652 ml -330.7 ml Free Water 40 ml 100 ml IV Total 492 ml 409.3 ml Tube Feeding 720 ml 660 ml Blood Product 400 ml Output Urine Total 1000 ml 1500 ml General Appearance: no acute distress HEENT: normocephalic, status post trach Respiratory: chest wall non-tender, lungs clear, other - trach in place Cardiovascular: normal peripheral pulses, normal rate, regular rhythm Abdomen: normal bowel sounds, soft, non tender, non distended, other - GT Extremities: no cyanosis, no clubbing, no edema Neurologic: unresponsiveness Laboratory Tests 06/14/20 04:00: White Blood Count 9.7, Red Blood Count 2.13L, Hemoglobin 6.7*L, Hematocrit 19.7L , Mean Corpuscular Volume 93, Mean Corpuscular Hemoglobin 31.3H, Mean Corpuscular Hemoglobin Concent 33.7, Red Cell Distribution Width 14.4, Platelet Count 283, Mean Platelet Volume 8.2, Neutrophils (%) (Auto) , Lymphocytes (%) (Auto) , Monocytes (%) (Auto) , Eosinophils (%) (Auto) , Basophils (%) (Auto) , Neutrophils % (Manual) [Pending], Lymphocytes % (Manual) [Pending], Platelet Estimate [Pending], Platelet Morphology [Pending], Sodium Level 142, Potassium Level 3.6, Chloride Level 107, Carbon Dioxide Level 33H, Anion Gap 2L, Blood Urea Nitrogen 15, Creatinine 0.5L, Estimat Glomerular Filtration Rate > 60, Glucose Level 90, Calcium Level 9.3 06/14/20 09:25: White Blood Count 8.0, Red Blood Count 2.63L, Hemoglobin 8.2L, Hematocrit 24.2L, Mean Corpuscular Volume 92, Mean Corpuscular Hemoglobin 31.2H, Mean Corpuscular Hemoglobin Concent 34.0, Red Cell Distribution Width 14.8, Platelet Count 258, Mean Platelet Volume 8.7, Neutrophils (%) (Auto) 76.9H, Lymphocytes (%) (Auto) 12.4L, Monocytes (%) (Auto) 8.1, Eosinophils (%) (Auto) 0.4, Basophils (%) (Auto) 2.1H Current Medications Medications (Trade) Dose Ordered Sig/Morgan Route PRN Reason Start Time Stop Time Status Last Admin Dose Admin Acetaminophen (Tylenol) 650 mg Q4H PRN GT Temp >100.5 05/16/20 06:15 06/15/20 06:14 05/31/20 13:15 Acetaminophen (Tylenol) 650 mg Q4H PRN RECTAL Temp >100.5 05/16/20 19:45 06/15/20 19:44 05/17/20 18:30 Atropine Sulfate (Atropine 0.4mg/ ml) 0.4 mg Q2HR PRN IVP HR <45 05/29/20 21:30 06/28/20 19:24 05/30/20 22:39 Bisacodyl (Dulcolax) 10 mg DAILYPRN PRN RECTAL Constipation 06/13/20 17:15 09/11/20 17:14 Ceftolozane/ Tazobactam 1.5 gm/ Sodium Chloride 110 ml @ 110 mls/hr Q8H IV 06/10/20 18:00 06/18/20 23:59 06/14/20 09:01 Chlorhexidine Gluconate (Lilliam-Hex 2%) 1 applic DAILY@2000 TOPIC 06/08/20 20:00 09/06/20 19:59 06/13/20 20:27 Docusate Sodium (Colace) 100 mg TWICE A DAY GT 06/07/20 18:00 07/07/20 17:59 06/14/20 08:59 Enoxaparin Sodium (Lovenox) 60 mg EVERY 12 HOURS SUBQ 06/03/20 21:00 09/01/20 20:59 06/13/20 20:28 Fludrocortisone Acetate (Florinef) 0.1 mg DAILY ORAL 06/05/20 09:00 07/05/20 08:59 06/14/20 08:59 Lactulose (Cephulac) 20 gm BIDPRN PRN GT constipation 06/13/20 17:00 07/13/20 16:59 06/13/20 17:44 Polyethylene Glycol (Miralax) 17 gm BEDTIME GT 06/07/20 21:00 07/07/20 20:59 06/13/20 20:27 Zinc Oxide (Zinc Oxide) 1 applic TIDPRN PRN TOPIC Abdominal cramps 05/20/20 13:00 08/18/20 12:59 Assessment/Plan Assessment/Plan IMPRESSION: 1. Respiratory failure. 2. Diabetes mellitus with hyperglycemia. 3. Septic shock. 4. Chronic G-tube. 5. Decubitus. 6. History of CHF. 7. Tracheal bleeding; Hgb now 8 DISCUSSION: Continue fluids and antibiotics. Pressors prn S/p trach Will continue weaning On 40% FiO2 DVT and GI prophylaxis. Will hold Lovenox due to anemia and tracheal bleeding DC planning to sub-acute Discussed with Dr. Wade. S/p PEG Richard James Omar Syed MD Jun 14, 2020 09:55
--- NOTE | 2020-06-14 10:22 | NUR ---
NURSE NOTES: Dr Garcia visited pt and did change dressing for trach and saw the suction, stated every thing is fine, and ordered to hold Lovenox for 24hr, noted and carried out. will continue to monitor.
--- NOTE | 2020-06-14 10:51 | NUR ---
CASE MANAGEMENT: REVIEW SI: s/p COVID-19 . RESPIRATORY FAILURE s/p TRACHEOSTOMY . s/p PEG T 97.1 HR 53 RR 12 BP 108/60 SAT 100% MECH VENT FIO2 40 H/H 8.2/24.2 CR 0.5 IS: ZERBAXA IV Q8HR LOVENOX SUBQ Q12HR PROTONIX IV QD GT FEEDING STEP DOWN UNIT STATUS DCP: PATIENT IS FROM [facility]
--- NOTE | 2020-06-14 11:51 | General Progress Note ---
Subjective ROS Limited/Unobtainable: No Allergies: Coded Allergies: DIVALPROEX SODIUM (Verified Allergy, Unknown, 05/14/20) PENICILLINS (Verified Allergy, Unknown, 05/14/20) Objective Last 24 Hour Vital Signs Date Time Temp Pulse Resp B/P (MAP) Pulse Ox O2 Delivery O2 Flow Rate FiO2 06/14/20 08:00 97.1 54 12 108/60 (76) 100 06/14/20 07:55 40 06/14/20 07:53 53 06/14/20 07:51 Mechanical Ventilator 06/14/20 07:10 55 12 40 06/14/20 04:10 68 06/14/20 04:00 98.0 68 20 102/59 (73) 100 06/14/20 04:00 Mechanical Ventilator 06/14/20 04:00 40 06/14/20 03:13 71 18 40 06/14/20 00:00 Mechanical Ventilator 06/14/20 00:00 40 06/14/20 00:00 98.2 65 16 116/67 (83) 100 06/13/20 23:36 72 06/13/20 23:03 73 17 40 06/13/20 20:00 Mechanical Ventilator 06/13/20 20:00 98.3 67 24 137/71 (93) 100 06/13/20 20:00 40 06/13/20 20:00 71 06/13/20 19:03 70 15 40 06/13/20 16:00 98.4 78 19 126/60 (82) 100 06/13/20 16:00 40 06/13/20 15:56 Mechanical Ventilator 06/13/20 15:15 72 06/13/20 15:00 61 17 40 06/13/20 12:00 40 06/13/20 11:59 Mechanical Ventilator 06/13/20 11:55 97.3 57 12 104/53 (70) 100 Intake and Output 06/13/20 06/14/20 19:00 07:00 Intake Total 1652 ml 1169.3 ml Output Total 1000 ml 1500 ml Balance 652 ml -330.7 ml Free Water 40 ml 100 ml IV Total 492 ml 409.3 ml Tube Feeding 720 ml 660 ml Blood Product 400 ml Output Urine Total 1000 ml 1500 ml Laboratory Tests 06/14/20 04:00: White Blood Count 9.7, Red Blood Count 2.13L, Hemoglobin 6.7*L, Hematocrit 19.7L , Mean Corpuscular Volume 93, Mean Corpuscular Hemoglobin 31.3H, Mean Corpuscular Hemoglobin Concent 33.7, Red Cell Distribution Width 14.4, Platelet Count 283, Mean Platelet Volume 8.2, Neutrophils (%) (Auto) , Lymphocytes (%) (Auto) , Monocytes (%) (Auto) , Eosinophils (%) (Auto) , Basophils (%) (Auto) , Differential Total Cells Counted 100, Neutrophils % (Manual) 81H, Lymphocytes % (Manual) 12L, Monocytes % (Manual) 7, Eosinophils % (Manual) 0, Basophils % (Manual) 0, Band Neutrophils 0, Platelet Estimate Adequate, Platelet Morphology Normal, Hypochromasia 4+, Anisocytosis 1+, Sodium Level 142, Potassium Level 3.6, Chloride Level 107, Carbon Dioxide Level 33H, Anion Gap 2L, Blood Urea Nitrogen 15, Creatinine 0.5L, Estimat Glomerular Filtration Rate > 60, Glucose Level 90, Calcium Level 9.3 06/14/20 09:25: White Blood Count 8.0, Red Blood Count 2.63L, Hemoglobin 8.2L, Hematocrit 24.2L, Mean Corpuscular Volume 92, Mean Corpuscular Hemoglobin 31.2H, Mean Corpuscular Hemoglobin Concent 34.0, Red Cell Distribution Width 14.8, Platelet Count 258, Mean Platelet Volume 8.7, Neutrophils (%) (Auto) 76.9H, Lymphocytes (%) (Auto) 12.4L, Monocytes (%) (Auto) 8.1, Eosinophils (%) (Auto) 0.4, Basophils (%) (Auto) 2.1H Height (Feet): 5 Height (Inches): 5.00 Weight (Pounds): 142 General Appearance: no apparent distress EENT: normal ENT inspection Neck: supple Cardiovascular: normal rate Respiratory/Chest: decreased breath sounds Abdomen: normal bowel sounds, non tender, soft Extremities: non-tender Assessment/Plan Status: stable Assessment/Plan: 1. History of CVA. 2. Dementia. 3. Dysphagia with G-tube. 4. Cachexia. 5. Diabetes. 6. Pressure ulcers. 7. Hypothyroidism. 8. Legal blindness. 9. Currently COVID positive. s/p peg and trach GTF monitor for residuals fu labs supportive care cbc in am Jhon Matos MD Jun 14, 2020 11:51
[2020-06-14 12:00] VITALS: BP 139/74
--- NOTE | 2020-06-14 12:00 | General Progress Note ---
Subjective Date patient seen: Jun 14, 2020 Time patient seen: 11:00 ROS Limited/Unobtainable: Yes Allergies: Coded Allergies: DIVALPROEX SODIUM (Verified Allergy, Unknown, 05/14/20) PENICILLINS (Verified Allergy, Unknown, 05/14/20) All Systems: reviewed and negative except above Subjective LEFT IJ PLACED 06/10 Objective Last 24 Hour Vital Signs Date Time Temp Pulse Resp B/P (MAP) Pulse Ox O2 Delivery O2 Flow Rate FiO2 06/14/20 08:00 97.1 54 12 108/60 (76) 100 06/14/20 07:55 40 06/14/20 07:53 53 06/14/20 07:51 Mechanical Ventilator 06/14/20 07:10 55 12 40 06/14/20 04:10 68 06/14/20 04:00 98.0 68 20 102/59 (73) 100 06/14/20 04:00 Mechanical Ventilator 06/14/20 04:00 40 06/14/20 03:13 71 18 40 06/14/20 00:00 Mechanical Ventilator 06/14/20 00:00 40 06/14/20 00:00 98.2 65 16 116/67 (83) 100 06/13/20 23:36 72 06/13/20 23:03 73 17 40 06/13/20 20:00 Mechanical Ventilator 06/13/20 20:00 98.3 67 24 137/71 (93) 100 06/13/20 20:00 40 06/13/20 20:00 71 06/13/20 19:03 70 15 40 06/13/20 16:00 98.4 78 19 126/60 (82) 100 06/13/20 16:00 40 06/13/20 15:56 Mechanical Ventilator 06/13/20 15:15 72 06/13/20 15:00 61 17 40 06/13/20 12:00 40 06/13/20 11:59 Mechanical Ventilator Intake and Output 06/13/20 06/14/20 19:00 07:00 Intake Total 1652 ml 1169.3 ml Output Total 1000 ml 1500 ml Balance 652 ml -330.7 ml Free Water 40 ml 100 ml IV Total 492 ml 409.3 ml Tube Feeding 720 ml 660 ml Blood Product 400 ml Output Urine Total 1000 ml 1500 ml Laboratory Tests 06/14/20 04:00: White Blood Count 9.7, Red Blood Count 2.13L, Hemoglobin 6.7*L, Hematocrit 19.7L , Mean Corpuscular Volume 93, Mean Corpuscular Hemoglobin 31.3H, Mean Co rpuscular Hemoglobin Concent 33.7, Red Cell Distribution Width 14.4, Platelet Count 283, Mean Platelet Volume 8.2, Neutrophils (%) (Auto) , Lymphocytes (%) (Auto) , Monocytes (%) (Auto) , Eosinophils (%) (Auto) , Basophils (%) (Auto) , Differential Total Cells Counted 100, Neutrophils % (Manual) 81H, Lymphocytes % (Manual) 12L, Monocytes % (Manual) 7, Eosinophils % (Manual) 0, Basophils % (Manual) 0, Band Neutrophils 0, Platelet Estimate Adequate, Platelet Morphology Normal, Hypochromasia 4+, Anisocytosis 1+, Sodium Level 142, Potassium Level 3.6, Chloride Level 107, Carbon Dioxide Level 33H, Anion Gap 2L, Blood Urea Nitrogen 15, Creatinine 0.5L, Estimat Glomerular Filtration Rate > 60, Glucose Level 90, Calcium Level 9.3 06/14/20 09:25: White Blood Count 8.0, Red Blood Count 2.63L, Hemoglobin 8.2L, Hematocrit 24.2L, Mean Corpuscular Volume 92, Mean Corpuscular Hemoglobin 31.2H, Mean Corpuscular Hemoglobin Concent 34.0, Red Cell Distribution Width 14.8, Platelet Count 258, Mean Platelet Volume 8.7, Neutrophils (%) (Auto) 76.9H, Lymphocytes (%) (Auto) 12.4L, Monocytes (%) (Auto) 8.1, Eosinophils (%) (Auto) 0.4, Basophils (%) (Au to) 2.1H Height (Feet): 5 Height (Inches): 5.00 Weight (Pounds): 142 General Appearance: WD/WN EENT: PERRL/EOMI, other - trach Cardiovascular: normal rate, bradycardia Respiratory/Chest: decreased breath sounds Neurologic: data collection associate II-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 # Sepsis with element of cardiogenic shock Etiology COVID 19 vs UTI vs bacteremia / contaminant and NSTEMI Gram positive bacteremia- contaminant; recurrent -05/14 Bcx 1/ S. haemolyticus; 05/17 Bcx Neg -05/31 Bcx 1/ P.a -06/01 Bcx Neg -06/04 Bcx GNR Pseudomona with S to Colistin and Polymixin, I to Ceftazidime -06/06 BCx - no growth CATH TIP cx 06/11 Gram + cocci Sputum Cx 05/25 with Pseudomonas. Colonizer and recent completion of 14 day treatment with Meropenem U cx 05/14 Proteus Mirabillis Meropenem 14 days completed Vancomycin stopped stopped Cefepime Dexamethasone 10 day course completed Leukocytosis improved. Monitor clinically for now and OFF antibiotics per ID COVID NEGATIVE x 2 05/25 and 05/26 ID Plan Manager - Zerbaxa DAY 06/22 for MDR PsA bacteremia, if worsening can try double coverage w/ colistin or polyB but overall slightly stable currently - FINAL PLAN per ID for length of therapy ( 14 day course needed ) until 06/18/20 and will NEED follow up blood culture on 06/25/20 - SNF updated and UNABLE TO TAKE THE PATIENT ON Zerbaxa due to cost. INVESTMENT ACCOUNTANT UPDATED. - Removed R IJ line and tip culture 06/11 NEW LEFT IJ PLACED 06/10. 2 Physician consent signed with Dr. Romeo from ID. Conservator was updated by RN and no response obtained. # Acute respiratory failure Intubated. Self extubated 05/27 and re intubated by ED MD successfully. ICU care appreciated Dr. Rock following Ventilator management per ICU-pulmonary FiO2 40 % today. T piece. Medically tracheostomy was needed and life saving procedure as she is not tolerating wean off. Overall, her quality of life will not improve from prior baseline with advanced dementia. Will need permanent ventilator support via tracheostomy and subacute level of care. Critical care attending, Surgery and GI attendings notified to plan PEG and TRACH as medically indicated and completed 06/02/20 # SVT vs A. Flutter s/p DC x 3 # NSTEMI HR is controlled in the 100 range and tolerating Digoxin Vasopressors in place Levophed at [address] Morillo requested and TTE requested and poor window. Troponin 3.4 now 0.7 EKG 05/17 NSR, stable. Inferior wall ischemia # AG metabolic acidosis Ddx lactic acidosis Improved. # Hyperglycemia r/o DKA ABG and Ketones negative Endocrine consult with Dr. Shelley IV insulin gtt stopped and in SQ insulin coverage now # Hypernatremia resolved Improving Monitor BMP change IVF rate and start free water flush per PEG - Monitor and try to HL IVF # COVID 19 Positive on admission, now NEGATIVE as of 05/25/20 On Dexamethasone completed 10 day course Contact and droplet isolation # Dysphagia PEG REMOVED 05/16 Carlo Vargas consulted NGT placed and Tube feeds started 05/18 and being tolerated at 45 cc hr Glucerna 1.2 # Severe protein caloric malnutrition with Albumin 1.5 RD follow up # Thrombocytopenia Platelets down from 80 K to 64 K to 66 K ( OFF Heparin ) and improved to normal range. 05/17 dc heparin, use SCD, order US Liver, HIT Ab, HIV negative Monitor carefully as Lovenox was restarted 06/03 for DVT # Newly detected lower extremity DVT Lovenox at 1 mg Kg SQ q 12 hr started 06/03 PM # Hypokalemia # Hypophosphatemia Replace as needed # Anemia Etiology likely secondary to multiple blood draws vs RAULITO vs less likely GIB FOBT pending. iron studies SHOW IRON DEFICIENCY. ordered IV iron x 1 only Trend Hb and PRN PRBC if Hb less than 8, 1 unit 06/06 Hb is drifting down again and will monitor for need of PRBC # Dementia Baseline #DISPOSITION SNF subacute and NEED TO APPROVE Zerbaxa until 06/18/20 as is the ONLY good antibiotic choice per blood cx sensitivities. # FULL CODE SW follow up to reach out to DPOA and consider change in code status due to high morbidity and risk of inpatient mortality. Paperwork completed for superior court of the [facility] for request of tracheostomy and gastrostomy placement due to medical need on 05/26/20 Bioethic consult requested and spoke with Dr. Hung from ethics and I agree with his assessment that the patient quality of life will NOT IMPROVE with tracheostomy and replacement of PEG. The patient is very limited due to her underlying dementia and now unable to wean off the ventilator. SHE HAD THE NEED TO GET A TRACHEOSTOMY and PEG was replaced 06/01/[address] Garcia DUE TO MEDICAL NECESSITY AND LIFE SAVING PROCEDURES. DR. ROCK AND I AGREED AND SIGNED [address] MD [address] FORM. PENDING [address] DECISION REGARDING CODE STATUS. DNR IS MEDICALLY INDICATED. CURRENTLY FULL CODE BY PRIOR CONSERVATOR DECISION. > 50 min spent in coordination of care and consultation with physicians and RN. Jessica Wade MD Jun 14, 2020 12:00
[2020-06-14] MEDS ORDERED: Sodium Bicarbonate 4% 2.4meq/5ml vial IV PRN (12:15)
[2020-06-14] MEDS ORDERED: Lidocaine 1% Plain 30 ml INJ PRN (12:15)
--- NOTE | 2020-06-14 12:58 | Infectious Diseases Prog Note ---
Assessment/Plan 70 yo female with PMHx of Dementia, DM, CVA ( S/P PEG), COVID 19 infection and pressure ulcers. Septic Shock-combination cardiogenic and septic; SP Gram positive bacteremia- contaminant; recurrent Right IJ changed to left IJ 06/10/20 MDR PsA bacteremia- likely from PNA -05/14 Bcx 09/12 S. haemolyticus; 05/17 Bcx Neg -05/31 Bcx /2 P.a -06/01 Bcx Neg -06/04 Bcx P.a MDR -06/06 BCx - NTD -06/11 SP R IJ cath removal- tip cath cx <10 GPC UTI, sp rx UA (+); ucx 10-20k P. mirabilis (S Ceftriaxone, Cefepime) PNA, superimposed bacterial, sp rx Recent COVID19 pna- now repeat neg x2 -05/27 CXR: Previously seen left lung atelectasis has nearly completely resolved. Retrocardiac atelectasis without or with some component of consolidation. Low lung volumes with bronchovascular crowding. -05/26 CXR: Complete opacification of the left hemithorax with mediastinal shift to the left likely due to complete atelectasis of the left lung perhaps from mucous plugging. rapid COVID PCR neg -05/25 sp cx MDR PsA (I Ceftazidime, Colistin, Polymixin B); suspect colonizer SARS-COV2 neg -05/24 SARS-COV2 pCR inconclusive -05/23 CXR: Worsening aeration with increasing hazy opacification of the left lung base which may related to increased layering pleural effusion and adjacent atelectasis/consolidation. -05/19 CXR: Increasing left pleural fluid and likely basilar consolidation/atelectasis. Interim orogastric intubation 05/16 CXR: Retrocardiac density may represent atelectasis versus infiltrate. CXR 05/14/20 showed Retrocardiac atelectasis/infiltrate with Pulmonary venous congestion. sp cx MDR E.coli (S Cefepime, Meropenem, Zosyn) Hx of COVID 19 - Bacteria secondary infection? Asp PNA? COVID 19 tested Pos [facility] - about 3 week [facility] -still positive Rapid COVID PCR 05/14 Resp Fail Intuabted on Vent Leukocytosis; increased (sp steroids)- SP Fever; low grade ,recurrent -06/01 u/a wbc 10-15, nit neg, leuk +1 L femoral DVT EMA, SP SVT -sp cardioversion Hyperglycemia Elevated LFTs; resolving -Abd US: Gallbladder sludge. Negative for dilated bile ducts. Normal appearing liver and spleen. Trace ascites sp trach/peg 06/01 Dementia DM Hx CVA ( S/P PEG) pressure ulcers PLAN - Continue Zerbaxa #10/ ( End date 06/18/20) - Please repeat Blood Cx 1 week after stopping abx to assure clearance of bacteremia - The lab is working on Zerbaxa and Avycaz Sensi - 06/03/20 SP Meropenem #2 - 06/02/20 SP Vancomycin #2 - 05/27 SP Meropenem #11 - 05/24 SP Decadron #11 - 05/19 SP IV Vancomcyin #6 - 05/17 SP Cefepime #4 - f/u Cultures - Monitor CBC and Temps -repeat covid neg x2 -f/u repeat cultures Thank you for consulting [facility]. Will continue to follow along with you. Discussed with RN and Pharmacy staff Subjective Allergies: Coded Allergies: DIVALPROEX SODIUM (Verified Allergy, Unknown, 05/14/20) PENICILLINS (Verified Allergy, Unknown, 05/14/20) afebrile no leukocytosis repeat Bcx NTD Objective Last 24 Hour Vital Signs Date Time Temp Pulse Resp B/P (MAP) Pulse Ox O2 Delivery O2 Flow Rate FiO2 06/14/20 12:00 98.2 68 12 139/74 (95) 99 06/14/20 12:00 40 06/14/20 12:00 Mechanical Ventilator 06/14/20 11:05 65 13 40 06/14/20 08:00 97.1 54 12 108/60 (76) 100 06/14/20 07:55 40 06/14/20 07:53 53 06/14/20 07:51 Mechanical Ventilator 06/14/20 07:10 55 12 40 06/14/20 04:10 68 06/14/20 04:00 98.0 68 20 102/59 (73) 100 06/14/20 04:00 Mechanical Ventilator 06/14/20 04:00 40 06/14/20 03:13 71 18 40 06/14/20 00:00 Mechanical Ventilator 06/14/20 00:00 40 06/14/20 00:00 98.2 65 16 116/67 (83) 100 06/13/20 23:36 72 06/13/20 23:03 73 17 40 06/13/20 20:00 Mechanical Ventilator 06/13/20 20:00 98.3 67 24 137/71 (93) 100 06/13/20 20:00 40 06/13/20 20:00 71 06/13/20 19:03 70 15 40 06/13/20 16:00 98.4 78 19 126/60 (82) 100 06/13/20 16:00 40 06/13/20 15:56 Mechanical Ventilator 06/13/20 15:15 72 06/13/20 15:00 61 17 40 Height (Feet): 5 Height (Inches): 5.00 Weight (Pounds): 142 HEENT: NCAT, MMM, Pulm: Equal rise and fall B/L ABD: Soft, ND, PEG Laboratory Tests Test 06/14/20 04:00 06/14/20 09:25 White Blood Count 9.7 K/UL (4.8-10.8) 8.0 K/UL (4.8-10.8) Red Blood Count 2.13 M/UL (4.20-5.40) L 2.63 M/UL (4.20-5.40) L Hemoglobin 6.7 G/DL (12.0-16.0) *L 8.2 G/DL (12.0-16.0) L Hematocrit 19.7 % (37.0-47.0) L 24.2 % (37.0-47.0) L Mean Corpuscular Volume 93 FL (80-99) 92 FL (80-99) Mean Corpuscular Hemoglobin 31.3 PG (27.0-31.0) H 31.2 PG (27.0-31.0) H Mean Corpuscular Hemoglobin Concent 33.7 G/DL (32.0-36.0) 34.0 G/DL (32.0-36.0) Red Cell Distribution Width 14.4 % (11.6-14.8) 14.8 % (11.6-14.8) Platelet Count 283 K/UL (150-450) 258 K/UL (150-450) Mean Platelet Volume 8.2 FL (6.5-10.1) 8.7 FL (6.5-10.1) Neutrophils (%) (Auto) % (45.0-75.0) 76.9 % (45.0-75.0) H Lymphocytes (%) (Auto) % (20.0-45.0) 12.4 % (20.0-45.0) L Monocytes (%) (Auto) % (1.0-10.0) 8.1 % (1.0-10.0) Eosinophils (%) (Auto) % (0.0-3.0) 0.4 % (0.0-3.0) Basophils (%) (Auto) % (0.0-2.0) 2.1 % (0.0-2.0) H Differential Total Cells Counted 100 Neutrophils % (Manual) 81 % (45-75) H Lymphocytes % (Manual) 12 % (20-45) L Monocytes % (Manual) 7 % (1-10) Eosinophils % (Manual) 0 % (0-3) Basophils % (Manual) 0 % (0-2) Band Neutrophils 0 % (0-8) Platelet Estimate Adequate Platelet Morphology Normal Hypochromasia 4+ Anisocytosis 1+ Sodium Level 142 MMOL/L (136-145) Potassium Level 3.6 MMOL/L (3.5-5.1) Chloride Level 107 MMOL/L (98-107) Carbon Dioxide Level 33 MMOL/L (21-32) H Anion Gap 2 mmol/L (5-15) L Blood Urea Nitrogen 15 mg/dL (7-18) Creatinine 0.5 MG/DL (0.55-1.30) L Estimat Glomerular Filtration Rate > 60 mL/min (>60) Glucose Level 90 MG/DL (74-106) Calcium Level 9.3 MG/DL (8.5-10.1) Current Medications Medications (Trade) Dose Ordered Sig/Morgan Route PRN Reason Start Time Stop Time Status Last Admin Dose Admin Acetaminophen (Tylenol) 650 mg Q4H PRN GT Temp >100.5 05/16/20 06:15 06/15/20 06:14 05/31/20 13:15 Acetaminophen (Tylenol) 650 mg Q4H PRN RECTAL Temp >100.5 05/16/20 19:45 06/15/20 19:44 9/8/20 18:30 Atropine Sulfate (Atropine 0.4mg/ ml) 0.4 mg Q2HR PRN IVP HR <45 05/29/20 21:30 06/28/20 19:24 05/30/20 22:39 Bisacodyl (Dulcolax) 10 mg DAILYPRN PRN RECTAL Constipation 06/13/20 17:15 09/11/20 17:14 Ceftolozane/ Tazobactam 1.5 gm/ Sodium Chloride 110 ml @ 110 mls/hr Q8H IV 06/10/20 18:00 06/18/20 23:59 06/14/20 09:01 Chlorhexidine Gluconate (Lilliam-Hex 2%) 1 applic DAILY@2000 TOPIC 06/08/20 20:00 09/06/20 19:59 06/13/20 20:27 Docusate Sodium (Colace) 100 mg TWICE A DAY GT 06/07/20 18:00 07/07/20 17:59 06/14/20 08:59 Fludrocortisone Acetate (Florinef) 0.1 mg DAILY ORAL 06/05/20 09:00 07/05/20 08:59 06/14/20 08:59 Lactulose (Cephulac) 20 gm BIDPRN PRN GT constipation 06/13/20 17:00 07/13/20 16:59 06/13/20 17:44 Lidocaine HCl (Xylocaine 1% 30ml) 30 ml NOW PRN INJ Radiology Procedure 06/14/20 12:15 06/17/20 12:14 Polyethylene Glycol (Miralax) 17 gm BEDTIME GT 06/07/20 21:00 07/07/20 20:59 06/13/20 20:27 Sodium Bicarbonate (Sodium Bicarbonate 4%) 1 ml NOW PRN IV Radiology Procedure 06/14/20 12:15 06/17/20 12:14 Zinc Oxide (Zinc Oxide) 1 applic TIDPRN PRN TOPIC Abdominal cramps 05/20/20 13:00 08/18/20 12:59 Yomaira Terry M.D. Jun 14, 2020 12:58
--- NOTE | 2020-06-14 13:22 | NUR ---
RD ASSESSMENT & RECOMMENDATIONS SEE CARE ACTIVITY FOR COMPLETE ASSESSMENT DAILY ESTIMATED NEEDS: Needs based on Critical care, 57.8kg abw 22-30 kcals/kg 5191-6554 total kcals 1.2-2 g protein/kg 69-116 g total protein 25-30 mL/kg 9888-2946 total fluid mLs NUTRITION DIAGNOSIS: Swallowing difficulty r/t h/o CVA, dysphagia as evidenced by pt is GT dep, now intubated w/ resp distress, now s/p trach and new PEG. CURRENT TF:Glucerna 1.2 @ 60ml/hr x24 hrs ENTERAL NUTRITION RECOMMENDATIONS: Glucerna 1.2 @ 60ml/hr x24 hrs to provide 1440ml, 1728 kcal, 86g pro, 1159ml free H2O - Maintain current TF @ goal - HOB over 30 degrees - Water flush of 140ml q 6hrs ADDITIONAL RECOMMENDATIONS: 1) Monitor lytes, replete as needed: low phos 2) Obtain an accurate wt: per MD pt w/ 'cachexia' EMR wt: 117.8kg vs am wts:64kg; trend wt, need to increase TF 3) Wound healing: TF provides 100% RDI add Vit C 250mg QD + Flavio BID 4) Monitor BGs closely: improved-> now off niss, accuchecks .
--- NOTE | 2020-06-14 14:21 | Surgery Progress Note ---
Surgery Progress Note Subjective Procedure Performed trach egd with peg Additional Comments labs noted lovenox held repeat labs noted dressings around trach with staining. evaluated. no bleeding noted. slight bloody dressing. changed and reevaluted an hour later without any bleeding. serosang dressings trach stable no active bleeding Objective Last 24 Hour Vital Signs Date Time Temp Pulse Resp B/P (MAP) Pulse Ox O2 Delivery O2 Flow Rate FiO2 06/14/20 12:00 98.2 68 12 139/74 (95) 99 06/14/20 12:00 40 06/14/20 12:00 Mechanical Ventilator 06/14/20 11:42 65 06/14/20 11:05 65 13 40 06/14/20 08:00 97.1 54 12 108/60 (76) 100 06/14/20 07:55 40 06/14/20 07:53 53 06/14/20 07:51 Mechanical Ventilator 06/14/20 07:10 55 12 40 06/14/20 04:10 68 06/14/20 04:00 98.0 68 20 102/59 (73) 100 06/14/20 04:00 Mechanical Ventilator 06/14/20 04:00 40 06/14/20 03:13 71 18 40 06/14/20 00:00 Mechanical Ventilator 06/14/20 00:00 40 06/14/20 00:00 98.2 65 16 116/67 (83) 100 06/13/20 23:36 72 06/13/20 23:03 73 17 40 06/13/20 20:00 Mechanical Ventilator 06/13/20 20:00 98.3 67 24 137/71 (93) 100 06/13/20 20:00 40 06/13/20 20:00 71 06/13/20 19:03 70 15 40 06/13/20 16:00 98.4 78 19 126/60 (82) 100 06/13/20 16:00 40 06/13/20 15:56 Mechanical Ventilator 06/13/20 15:15 72 06/13/20 15:00 61 17 40 I&O Intake and Output 06/13/20 06/14/20 19:00 07:00 Intake Total 1652 ml 1169.3 ml Output Total 1000 ml 1500 ml Balance 652 ml -330.7 ml Free Water 40 ml 100 ml IV Total 492 ml 409.3 ml Tube Feeding 720 ml 660 ml Blood Product 400 ml Output Urine Total 1000 ml 1500 ml Dressing: saturated Cardiovascular: RSR Respiratory: clear, decreased breath sounds Abdomen: soft, non-tender, present bowel sounds Extremities: no edema, no tenderness, no cyanosis Laboratory Tests Test 06/14/20 04:00 06/14/20 09:25 White Blood Count 9.7 K/UL (4.8-10.8) 8.0 K/UL (4.8-10.8) Red Blood Count 2.13 M/UL (4.20-5.40) L 2.63 M/UL (4.20-5.40) L Hemoglobin 6.7 G/DL (12.0-16.0) *L 8.2 G/DL (12.0-16.0) L Hematocrit 19.7 % (37.0-47.0) L 24.2 % (37.0-47.0) L Mean Corpuscular Volume 93 FL (80-99) 92 FL (80-99) Mean Corpuscular Hemoglobin 31.3 PG (27.0-31.0) H 31.2 PG (27.0-31.0) H Mean Corpuscular Hemoglobin Concent 33.7 G/DL (32.0-36.0) 34.0 G/DL (32.0-36.0) Red Cell Distribution Width 14.4 % (11.6-14.8) 14.8 % (11.6-14.8) Platelet Count 283 K/UL (150-450) 258 K/UL (150-450) Mean Platelet Volume 8.2 FL (6.5-10.1) 8.7 FL (6.5-10.1) Neutrophils (%) (Auto) % (45.0-75.0) 76.9 % (45.0-75.0) H Lymphocytes (%) (Auto) % (20.0-45.0) 12.4 % (20.0-45.0) L Monocytes (%) (Auto) % (1.0-10.0) 8.1 % (1.0-10.0) Eosinophils (%) (Auto) % (0.0-3.0) 0.4 % (0.0-3.0) Basophils (%) (Auto) % (0.0-2.0) 2.1 % (0.0-2.0) H Differential Total Cells Counted 100 Neutrophils % (Manual) 81 % (45-75) H Lymphocytes % (Manual) 12 % (20-45) L Monocytes % (Manual) 7 % (1-10) Eosinophils % (Manual) 0 % (0-3) Basophils % (Manual) 0 % (0-2) Band Neutrophils 0 % (0-8) Platelet Estimate Adequate Platelet Morphology Normal Hypochromasia 4+ Anisocytosis 1+ Sodium Level 142 MMOL/L (136-145) Potassium Level 3.6 MMOL/L (3.5-5.1) Chloride Level 107 MMOL/L (98-107) Carbon Dioxide Level 33 MMOL/L (21-32) H Anion Gap 2 mmol/L (5-15) L Blood Urea Nitrogen 15 mg/dL (7-18) Creatinine 0.5 MG/DL (0.55-1.30) L Estimat Glomerular Filtration Rate > 60 mL/min (>60) Glucose Level 90 MG/DL (74-106) Calcium Level 9.3 MG/DL (8.5-10.1) Plan Problems: (1) Hypernatremia (2) Renal failure (3) Respiratory failure (4) Sepsis Assessment & Plan: COVID + leukocytosis anemia electrolytes abnormal on iv fluids renal input appreciated cxr noted abx as per ID will follow with recs Will likely need trach difficult weaning conservatorship working with case management social work to figure out goals of care s/p peg and trach improving labs noted lovenox held repeat labs noted dressings around trach with staining. evaluated. no bleeding noted. slight bloody dressing. changed and reevaluted an hour later without any bleeding. serosang dressings trach stable no active bleeding trend labs much more comfortable Interim placement of orogastric tube, also documented on recent abdominal radiograph. Stable satisfactory position of endotracheal tube and right jugular central venous catheter. There is increased pleural fluid and likely left basilar consolidation/atelectasis. The right lung and pleural space remain clear. Impression: Increasing left pleural fluid and likely basilar consolidation/atelectasis. Interim orogastric intubation DAILY ESTIMATED NEEDS: Needs based on Pulmonary, DM, wounds 66.6kg 25-30 kcals/kg 1766-8284 total kcals 1.25-1.5 g protein/kg 83-100 g total protein 20-25 mL/kg 8271-7460 total fluid mLs NUTRITION DIAGNOSIS: Swallowing difficulty r/t dysphagia as evidenced by h/o CVA, pt is GT dep, currently ICU status, now intubated, off pressor support, GT feeds initiated. CURRENT TF:Glucerna 1.2 @45ml/hr ENTERAL NUTRITION RECOMMENDATIONS: As medically able: GLUCERNA 1.5 goal of 45ml/hr x24 hrs to provide 1080ml, 1620 kcal, 89g pro, 820ml free H2O -> as medically able without aspiration risk start Glucerna 1.5 @low rate 25ml/hr for 6 hrs. Advance as tolerated 10ml/hr q4-6 hrs to goal. - Flush per MD, HOB over 30 degrees. ---- If not hemodynamically stable, rec trophic feeds of 5-10ml/hr to maintain gut integrity. ADDITIONAL RECOMMENDATIONS: 1) Obtain an accurate calibrated bed scale wt 2) F/up w/ H&P 3) With active TF orders, add JASMYN BID for noted DTPI wounds 4) TF recs as above when off bipap and w/ hemodynamic stability -> Now intubated, off pressors, on GT feeds. he spleen size is normal. The gallbladder contains sludge. No stones. No wall thickening nor pericholecystic fluid. Common bile duct measures 4 mm in diameter. Small amount free fluid is seen adjacent to the liver and spleen Impression: Gallbladder sludge. Negative for dilated bile ducts Normal appearing liver and spleen Patient with respiratory failure intubated on support unable to wean safely. A tracheostomy in this case would be indicated and recommended. Patient is full code but conserved. Given her condition waiting a significant period of time is at high risk for her given the risk for extubation duration of tube and worsening with her ET tube. A trach would be functional manageable for her and recommended. Unfortunately waiting for the time. Would be advisable and discussed with the social workers social work case manager and medical teams. Rating Clerk as well. ICU team as well. We will proceed with tracheostomy in patient's best interest given her CODE STATUS and wishes and care plan. i have been asked by GI and medical teams to place PEG as well. after careful evaluation I agree with medical teams that patient would also benefit from feeding tube access. given her condition, Covid status, care plan, goals of care, will place peg at same time of trach to minimize exposure and OR time and limit procedure risks for patient. (5) Elevated d-dimer (6) COVID-19 Assessment & Plan: ++ (7) Pressure ulcer Assessment & Plan: Pt presented on admission with multiple Pressure injuries.DTPI noted to R Buttocks (L)3.8cm x (W)3.4cm. Base of wound is purpuric,fluctuant with surrounding maroon and indurated borders. DTPI Upper L Buttocks(L)5.5cm x (W)4cm. Base of wound is maroon and indurated. Borders are irregular. Non-Blanchable erythema without induration/fluctuance L lower buttocks(L)4cm x (W)7cm. R and L heels are soft but blanchable. Erosion noted at peristomal GT site. Site is erythematous and excoriated. Small amt. sanguineous exudate. Tx.Plan: Apply Moisture Barrier Paste to Sacrum, R and L Buttocks. Cover each area with Optifoam drsg. Change every 3 days and prn. Apply Moisture Barrier Paste to R and L Ischial tuberosities with each incontinence care. Apply Cavilon Skin Barrier to both heels. Cover each heel and malleoli with Optifoam drsg. Change every 7 days and prn. Reposition at least every 2hours or as tolerated. Off-load heels with pillow. APM/DARIN Mattress overlay. Apply Zinc Oxide Paste TID to GT site. Leave open to Air. (8) Dementia (9) CVA (cerebral vascular accident) (10) T2DM (type 2 diabetes mellitus) (11) Gastrostomy present (12) COVID-19 (13) Rapid atrial fibrillation Paul Garcia Jun 14, 2020 14:21
[2020-06-14 16:00] VITALS: BP 117/72
--- NOTE | 2020-06-14 16:10 | NUR ---
*-*DISCHARGE PLANNING*-* PATIENT HAS BEEN ACCEPTED TO: [facility] P: [phone] PATIENT HAS BEEN ACCEPTED Addendum: 06/14/20 at 1737 by JAY MONTES PER DIRECTOR OF ADULT EPILEPSY PAULO MEZA GUARDIANKELLY P:[phone] AWARE PATIENT WAS ACCEPTED TO THAT FACILITY.
--- NOTE | 2020-06-14 17:12 | Cardiac Electrophysiology PN ---
Assessment/Plan Assessment/Plan 1. [id number] myocardial infarction with peak troponin of 3.4 EKG shows Inferolateral ischemia Due to septic shock, DCCV and Renal failure. Echo had poor windows. 2. PAF with RVR. S/P DCCV 3 times No more fib or accelerated junctional rhythm. Off any AVN ramakrishna for bradycardia 3. S/P Septic shock. On antibiotic. Off Midodrine in view of bradycardia 4. Bradycardia requiring Atropine x 3 on 05/30/20. Off Dopamine. Off Midodrine 5. Severe hypernatremia with sodium of 174, BUN of 131, creatinine 2.7 due to dehydration. Improved. Cr 0.5 6. Dysphagia, status post PEG replacement per Dr Matos 7. History of CVA and dementia. 8. Respiratory failure, S/P Tracheostomy by Dr. Garcia 06/01/20 KIMMY RN Subjective Subjective In SDU in SR with no atrial fib. Charles in 50s S/P bradycardia and received atropine 3 times on 05/31/20 S/P Trach and PEG on 06/02/20. ECG 06/02/20 showed inferolateral ischemia On 40% Fio2 and Peep 5. IVC filter pending Objective Last 24 Hour Vital Signs Date Time Temp Pulse Resp B/P (MAP) Pulse Ox O2 Delivery O2 Flow Rate FiO2 06/14/20 16:00 Mechanical Ventilator 06/14/20 16:00 40 06/14/20 16:00 98.0 64 12 117/72 (87) 100 06/14/20 15:32 62 06/14/20 15:05 69 13 40 06/14/20 12:00 98.2 68 12 139/74 (95) 99 06/14/20 12:00 40 06/14/20 12:00 Mechanical Ventilator 06/14/20 11:42 65 06/14/20 11:05 65 13 40 06/14/20 08:00 97.1 54 12 108/60 (76) 100 06/14/20 07:55 40 06/14/20 07:53 53 06/14/20 07:51 Mechanical Ventilator 06/14/20 07:10 55 12 40 06/14/20 04:10 68 06/14/20 04:00 98.0 68 20 102/59 (73) 100 06/14/20 04:00 Mechanical Ventilator 06/14/20 04:00 40 06/14/20 03:13 71 18 40 06/14/20 00:00 Mechanical Ventilator 06/14/20 00:00 40 06/14/20 00:00 98.2 65 16 116/67 (83) 100 06/13/20 23:36 72 06/13/20 23:03 73 17 40 06/13/20 20:00 Mechanical Ventilator 06/13/20 20:00 98.3 67 24 137/71 (93) 100 06/13/20 20:00 40 06/13/20 20:00 71 06/13/20 19:03 70 15 40 Intake and Output 06/13/20 06/14/20 19:00 07:00 Intake Total 1652 ml 1169.3 ml Output Total 1000 ml 1500 ml Balance 652 ml -330.7 ml Free Water 40 ml 100 ml IV Total 492 ml 409.3 ml Tube Feeding 720 ml 660 ml Blood Product 400 ml Output Urine Total 1000 ml 1500 ml Laboratory Tests Test 06/14/20 04:00 06/14/20 09:25 White Blood Count 9.7 K/UL (4.8-10.8) 8.0 K/UL (4.8-10.8) Red Blood Count 2.13 M/UL (4.20-5.40) L 2.63 M/UL (4.20-5.40) L Hemoglobin 6.7 G/DL (12.0-16.0) *L 8.2 G/DL (12.0-16.0) L Hematocrit 19.7 % (37.0-47.0) L 24.2 % (37.0-47.0) L Mean Corpuscular Volume 93 FL (80-99) 92 FL (80-99) Mean Corpuscular Hemoglobin 31.3 PG (27.0-31.0) H 31.2 PG (27.0-31.0) H Mean Corpuscular Hemoglobin Concent 33.7 G/DL (32.0-36.0) 34.0 G/DL (32.0-36.0) Red Cell Distribution Width 14.4 % (11.6-14.8) 14.8 % (11.6-14.8) Platelet Count 283 K/UL (150-450) 258 K/UL (150-450) Mean Platelet Volume 8.2 FL (6.5-10.1) 8.7 FL (6.5-10.1) Neutrophils (%) (Auto) % (45.0-75.0) 76.9 % (45.0-75.0) H Lymphocytes (%) (Auto) % (20.0-45.0) 12.4 % (20.0-45.0) L Monocytes (%) (Auto) % (1.0-10.0) 8.1 % (1.0-10.0) Eosinophils (%) (Auto) % (0.0-3.0) 0.4 % (0.0-3.0) Basophils (%) (Auto) % (0.0-2.0) 2.1 % (0.0-2.0) H Differential Total Cells Counted 100 Neutrophils % (Manual) 81 % (45-75) H Lymphocytes % (Manual) 12 % (20-45) L Monocytes % (Manual) 7 % (1-10) Eosinophils % (Manual) 0 % (0-3) Basophils % (Manual) 0 % (0-2) Band Neutrophils 0 % (0-8) Platelet Estimate Adequate Platelet Morphology Normal Hypochromasia 4+ Anisocytosis 1+ Sodium Level 142 MMOL/L (136-145) Potassium Level 3.6 MMOL/L (3.5-5.1) Chloride Level 107 MMOL/L (98-107) Carbon Dioxide Level 33 MMOL/L (21-32) H Anion Gap 2 mmol/L (5-15) L Blood Urea Nitrogen 15 mg/dL (7-18) Creatinine 0.5 MG/DL (0.55-1.30) L Estimat Glomerular Filtration Rate > 60 mL/min (>60) Glucose Level 90 MG/DL (74-106) Calcium Level 9.3 MG/DL (8.5-10.1) Objective HEAD AND NECK: No JVD. Tracheostomy in place. Left IJ line in place LUNGS: Coarse rhonchi. CARDIOVASCULAR: Regular S1 and S2 with no gallop. ABDOMEN: Soft. G-tube site in place EXTREMITIES: No pitting edema. Norman Morillo MD Jun 14, 2020 17:12
[2020-06-14] MEDS ORDERED: 1/2 NS 1000ml IV ONE (18:16)
[2020-06-14] MEDS ORDERED: NS 275ml ONE (18:16)
--- NOTE | 2020-06-14 19:21 | NUR ---
NURSE HAND-OFF REPORT: Important Events on Shift: Patient Status: Diet: Pending Orders: Pending Results/Labs: Pending MD notification: Latest Vital Signs: Temperature 98.0 , Pulse 64 , B/P 117 /72 , Respiratory Rate 12 , O2 SAT 100 , Mechanical Ventilator, O2 Flow Rate 12.0 . Vital Sign Comment: EKG Rhythm: Sinus Rhythm Rhythm change?: N MD Notified?: Y -Dr Ilia SEYMOUR Response: No New Orders Received Latest Garza Fall Score: 70 Fall Risk: High Risk Safety Measures: Call light Within Reach, Bed Alarm Zone 1, Side Rails Side Rails x3, Bed position Low and Locked. Fall Precautions: Yellow Socks Yellow Gown Door Sign Patient Fall Education Report given to . Pt is awake and stable, no stress noted. endorsed plan of care.Endorsed to F/U intravascular umbrella deploy.
--- NOTE | 2020-06-14 19:30 | NUR ---
NURSE NOTES: RECEIVED REPORT FROM [facility] GOODSON. PATIENT ASLEEP IN BED, AROUSABLE TO VOICE AND TACTILE STIMULI. NO S/SX OF PAIN OR DISCOMFORT AT THIS TIME. BREATHING EVEN AND UNLABORED WITH NO S/SX OF DISTRESS ON CURRENT SETTINGS: TRACH TO VENT PORTEX #8, AC 12, VT 500, FIO2 40%, PEEP 5. IV SITE LIJ TLC PATENT, INTACT, ASYMPTOMATIC. GTF RUNNING PRESCRIBED; GT FLUSHED, PATENT, WITH NO RESIDUAL NOTED. DEL TORO CATHETER DRAINING WELL TO GRAVITY- URINE CLEAR AND YELLOW IN COLOR. NO BLEEDING NOTED AT TRACH SITE AT THIS TIME. BED LOCKED AND IN LOWEST POSITION, SIDERAILS UP X 3. CALL LIGHT WITHIN REACH, WILL CONTINUE TO MONITOR. Addendum: 06/14/20 at 1945 by Nikkie Orellana RN FALL AND ASPIRATION PRECAUTIONS IN PLACE.
[2020-06-14 20:00] VITALS: BP 128/58
[2020-06-14] MEDS: Dyna-Hex 2% Top Sol 2oz TOPIC SCH (20:05)
[2020-06-14] MEDS: Miralax 17gm pkt GT SCH (20:06)
[2020-06-15] VITALS (13 sets, daily range): BP systolic 109–145; BP diastolic 40–75
--- NOTE | 2020-06-15 00:45 | NUR ---
NURSE NOTES: PATIENT CLEANED, LINEN CHANGED, ORAL CARE PROVIDED- PATIENT TOLERATED WELL.
[2020-06-15] MEDS: NS IV SCH ×3 (01:22→18:07)
[2020-06-15] MEDS: TAZOBACTAM IV SCH ×3 (01:22→18:07)
[2020-06-15] MEDS: CEFTOLOZANE IV SCH ×3 (01:22→18:07)
[2020-06-15 03:51] LABS: BASOPHILS % (AUTO) 1.7 % (0.0-2.0); EOSINOPHILS % (AUTO) 0.5 % (0.0-3.0); HEMATOCRIT 24.1 % (37.0-47.0); HEMOGLOBIN 8.3 G/DL (12.0-16.0); LYMPHOCYTES % (AUTO) 9.1 % (20.0-45.0); MEAN CORPUSCULAR VOLUME 92 FL (80-99); MONOCYTES % (AUTO) 7.2 % (1.0-10.0); NEUTROPHILS % (AUTO) 81.4 % (45.0-75.0); PLATELET COUNT 271 K/UL (150-450); RED BLOOD COUNT 2.62 M/UL (4.20-5.40); WHITE BLOOD COUNT 10.9 K/UL (4.8-10.8)
[2020-06-15 04:29] LABS: ANION GAP 7 mmol/L (5-15); BLOOD UREA NITROGEN 19 mg/dL (7-18); CALCIUM 9.3 MG/DL (8.5-10.1); CARBON DIOXIDE 31 MMOL/L (21-32); CHLORIDE 105 MMOL/L (98-107); CREATININE 0.5 MG/DL (0.55-1.30); POTASSIUM 3.9 MMOL/L (3.5-5.1); SODIUM 142 MMOL/L (136-145)
--- NOTE | 2020-06-15 07:05 | NUR ---
NURSE HAND-OFF REPORT: Important Events on Shift: FOR INTRAVASCULAR UMBRELLA DEPLOY TODAY (CONSENT NEEDS TO BE SIGNED BY ONE MORE MD), NO BLEEDING NOTED AT TRACH Patient Status: STABLE Diet: GLUCERNA 1.2 @ 60 ML/HR WITH FLUSH 200 ML [id number] Pending Orders: INTRAVASCULAR UMBRELLA DEPLOY Pending Results/Labs:10/7 AM LABS Pending MD notification:N/A Latest Vital Signs: Temperature 99.3 , Pulse 65 , B/P 123 /56 , Respiratory Rate 12 , O2 SAT 100 , Mechanical Ventilator, O2 Flow Rate 12.0 . Vital Sign Comment: STABLE EKG Rhythm: Sinus Rhythm Rhythm change?: N MD Notified?: Y Mak Morillo MD Response: No New Orders Received Latest Garza Fall Score: 70 Fall Risk: High Risk Safety Measures: Call light Within Reach, Bed Alarm Zone 1, Side Rails Side Rails x3, Bed position Low and Locked. Fall Precautions: Yellow Socks Yellow Gown Door Sign Patient Fall Education Report given to SARA GOODSON.
--- NOTE | 2020-06-15 07:32 | NUR ---
NURSE NOTES: Received pt from [facility]ARA BUI, pt is sleeping, pt has trach connected to ventilator. pt has intact triple lumen LIJ is running well. pt has Arauz cath in place is working well. pt has G tube in place is working well. no pain noted. all needs attended, bed is locked and is in the lowest position, call light within easy reach. will continue to monitor. Addendum: 06/15/20 at 0736 by Alma Rosa Kohler RN ERROR Received pt from [facility]y.
--- NOTE | 2020-06-15 09:29 | General Progress Note ---
Subjective ROS Limited/Unobtainable: No Allergies: Coded Allergies: DIVALPROEX SODIUM (Verified Allergy, Unknown, 05/14/20) PENICILLINS (Verified Allergy, Unknown, 05/14/20) Objective Last 24 Hour Vital Signs Date Time Temp Pulse Resp B/P (MAP) Pulse Ox O2 Delivery O2 Flow Rate FiO2 06/15/20 08:00 40 06/15/20 08:00 Mechanical Ventilator 06/15/20 07:59 98.4 62 10 109/40 (63) 99 06/15/20 07:30 58 12 40 06/15/20 04:00 99.3 60 12 123/56 (78) 100 06/15/20 04:00 65 06/15/20 04:00 40 06/15/20 04:00 Mechanical Ventilator 06/15/20 03:04 67 12 40 06/15/20 00:00 40 06/15/20 00:00 98.6 69 15 116/63 (80) 95 06/15/20 00:00 70 06/15/20 00:00 Mechanical Ventilator 06/14/20 22:49 69 14 40 06/14/20 20:00 40 06/14/20 20:00 Mechanical Ventilator 06/14/20 20:00 98.4 67 14 128/58 (81) 95 06/14/20 19:42 70 06/14/20 19:21 63 13 40 06/14/20 16:00 Mechanical Ventilator 06/14/20 16:00 40 06/14/20 16:00 98.0 64 12 117/72 (87) 100 06/14/20 15:32 62 06/14/20 15:05 69 13 40 06/14/20 12:00 98.2 68 12 139/74 (95) 99 06/14/20 12:00 40 06/14/20 12:00 Mechanical Ventilator 06/14/20 11:42 65 06/14/20 11:05 65 13 40 Intake and Output 06/14/20 06/15/20 19:00 07:00 Intake Total 1230 ml 1060 ml Output Total 1000 ml 1250 ml Balance 230 ml -190 ml Free Water 400 ml 400 ml IV Total 110 ml Tube Feeding 720 ml 660 ml Output Urine Total 1000 ml 1250 ml # Bowel Movements 1 2 Laboratory Tests 06/15/20 02:40: White Blood Count 10.9H, Red Blood Count 2.62L, Hemoglobin 8.3L, Hematocrit 24.1L, Mean Corpuscular Volume 92, Mean Corpuscular Hemoglobin 31.7H, Mean Corpuscular Hemoglobin Concent 34.4, Red Cell Distribution Width 15.0H, Platelet Count 271, Mean Platelet Volume 8.5, Neutrophils (%) (Auto) 81.4H, Lymphocytes (%) (Auto) 9.1L, Monocytes (%) (Auto) 7.2, Eosinophils (%) (Auto) 0.5, Basophils (%) (Auto) 1.7, Prothrombin Time 11.0, Prothromb Time International Ratio 1.0, Sodium Level 142, Potassium Level 3.9, Chloride Level 105, Carbon Dioxide Level 31, Anion Gap 7, Blood Urea Nitrogen 19H, Creatinine 0.5L, Estimat Glomerular Filtration Rate > 60, Glucose Level 93, Calcium Level 9.3 Height (Feet): 5 Height (Inches): 5.00 Weight (Pounds): 142 General Appearance: no apparent distress EENT: normal ENT inspection Neck: supple Cardiovascular: normal rate Respiratory/Chest: decreased breath sounds Abdomen: normal bowel sounds, non tender, soft Extremities: non-tender Assessment/Plan Status: stable Assessment/Plan: 1. History of CVA. 2. Dementia. 3. Dysphagia with G-tube. 4. Cachexia. 5. Diabetes. 6. Pressure ulcers. 7. Hypothyroidism. 8. Legal blindness. 9. Currently COVID positive. s/p peg and trach GTF monitor for residuals fu labs supportive care cbc in Jhon An MD Jun 15, 2020 09:29
[2020-06-15] MEDS: Docusate 100mg/10ml Liq GT SCH ×2 (09:38→18:06)
--- NOTE | 2020-06-15 10:35 | Pulmonology Progress Note ---
Subjective ROS Limited/Unobtainable: No Interval Events: Tracheal bleding resolved Constitutional: Reports: no symptoms HEENT: Repors: no symptoms Respiratory: Reports: no symptoms Cardiovascular: Reports: no symptoms Gastrointestinal/Abdominal: Reports: no symptoms Genitourinary: Reports: no symptoms Allergies: Coded Allergies: DIVALPROEX SODIUM (Verified Allergy, Unknown, 05/14/20) PENICILLINS (Verified Allergy, Unknown, 05/14/20) All Systems: reviewed and negative except above Objective Last 24 Hour Vital Signs Date Time Temp Pulse Resp B/P (MAP) Pulse Ox O2 Delivery O2 Flow Rate FiO2 06/15/20 08:00 40 06/15/20 08:00 Mechanical Ventilator 06/15/20 07:59 98.4 62 10 109/40 (63) 99 06/15/20 07:44 57 06/15/20 07:30 58 12 40 06/15/20 04:00 99.3 60 12 123/56 (78) 100 06/15/20 04:00 65 06/15/20 04:00 40 06/15/20 04:00 Mechanical Ventilator 06/15/20 03:04 67 12 40 06/15/20 00:00 40 06/15/20 00:00 98.6 69 15 116/63 (80) 95 06/15/20 00:00 70 06/15/20 00:00 Mechanical Ventilator 06/14/20 22:49 69 14 40 06/14/20 20:00 40 06/14/20 20:00 Mechanical Ventilator 06/14/20 20:00 98.4 67 14 128/58 (81) 95 06/14/20 19:42 70 06/14/20 19:21 63 13 40 06/14/20 16:00 Mechanical Ventilator 06/14/20 16:00 40 06/14/20 16:00 98.0 64 12 117/72 (87) 100 06/14/20 15:32 62 06/14/20 15:05 69 13 40 06/14/20 12:00 98.2 68 12 139/74 (95) 99 06/14/20 12:00 40 06/14/20 12:00 Mechanical Ventilator 06/14/20 11:42 65 06/14/20 11:05 65 13 40 Intake and Output 06/14/20 06/15/20 19:00 07:00 Intake Total 1230 ml 1060 ml Output Total 1000 ml 1250 ml Balance 230 ml -190 ml Free Water 400 ml 400 ml IV Total 110 ml Tube Feeding 720 ml 660 ml Output Urine Total 1000 ml 1250 ml # Bowel Movements 1 2 General Appearance: no acute distress HEENT: normocephalic, status post trach Respiratory: chest wall non-tender, lungs clear, other - trach in place Cardiovascular: normal peripheral pulses, normal rate, regular rhythm Abdomen: normal bowel sounds, soft, non tender, non distended, other - GT Extremities: no cyanosis, no clubbing, no edema Neurologic: unresponsiveness Laboratory Tests 06/15/20 02:40: White Blood Count 10.9H, Red Blood Count 2.62L, Hemoglobin 8.3L, Hematocrit 24.1L, Mean Corpuscular Volume 92, Mean Corpuscular Hemoglobin 31.7H, Mean Corpuscular Hemoglobin Concent 34.4, Red Cell Distribution Width 15.0H, Platelet Count 271, Mean Platelet Volume 8.5, Neutrophils (%) (Auto) 81.4H, Lymphocytes (%) (Auto) 9.1L, Monocytes (%) (Auto) 7.2, Eosinophils (%) (Auto) 0.5, Basophils (%) (Auto) 1.7, Prothrombin Time 11.0, Prothromb Time International Ratio 1.0, Sodium Level 142, Potassium Level 3.9, Chloride Level 105, Carbon Dioxide Level 31, Anion Gap 7, Blood Urea Nitrogen 19H, Creatinine 0.5L, Estimat Glomerular Filtration Rate > 60, Glucose Level 93, Calcium Level 9.3 Current Medications Medications (Trade) Dose Ordered Sig/Morgan Route PRN Reason Start Time Stop Time Status Last Admin Dose Admin Acetaminophen (Tylenol) 650 mg Q4H PRN RECTAL Temp >100.5 05/16/20 19:45 06/15/20 19:44 05/17/20 18:30 Atropine Sulfate (Atropine 0.4mg/ ml) 0.4 mg Q2HR PRN IVP HR <45 05/29/20 21:30 06/28/20 19:24 05/30/20 22:39 Bisacodyl (Dulcolax) 10 mg DAILYPRN PRN RECTAL Constipation 06/13/20 17:15 09/11/20 17:14 Ceftolozane/ Tazobactam 1.5 gm/ Sodium Chloride 110 ml @ 110 mls/hr Q8H IV 06/10/20 18:00 06/18/20 23:59 06/15/20 09:38 Chlorhexidine Gluconate (Lilliam-Hex 2%) 1 applic DAILY@1999 TOPIC 06/08/20 20:00 09/06/20 19:59 06/14/20 20:05 Docusate Sodium (Colace) 100 mg TWICE A DAY GT 06/07/20 18:00 07/07/20 17:59 06/15/20 09:38 Fludrocortisone Acetate (Florinef) 0.1 mg DAILY ORAL 06/05/20 09:00 07/05/20 08:59 06/15/20 09:38 Lactulose (Cephulac) 20 gm BIDPRN PRN GT constipation 06/13/20 17:00 07/13/20 16:59 06/13/20 17:44 Lidocaine HCl (Xylocaine 1% 30ml) 30 ml NOW PRN INJ Radiology Procedure 06/14/20 12:15 06/17/20 12:14 Polyethylene Glycol (Miralax) 17 gm BEDTIME GT 06/07/20 21:00 07/07/20 20:59 06/14/20 20:06 Zinc Oxide (Zinc Oxide) 1 applic TIDPRN PRN TOPIC Abdominal cramps 05/20/20 13:00 08/18/20 12:59 Assessment/Plan Assessment/Plan IMPRESSION: 1. Respiratory failure. 2. Diabetes mellitus with hyperglycemia. 3. Septic shock. 4. Chronic G-tube. 5. Decubitus. 6. History of CHF. 7. Tracheal bleeding; Hgb now 8 DISCUSSION: Continue fluids and antibiotics. Pressors prn S/p trach Will continue weaning On 40% FiO2 DVT and GI prophylaxis. Will hold Lovenox due to anemia and tracheal bleeding DC planning to sub-acute Discussed with Dr. Wade. S/p PEG Agree with IVC filter placement Richard James Omar Syed MD Jun 15, 2020 10:35
--- NOTE | 2020-06-15 11:39 | Infectious Diseases Prog Note ---
Assessment/Plan 70 yo female with PMHx of Dementia, DM, CVA ( S/P PEG), COVID 19 infection and pressure ulcers. Septic Shock-combination cardiogenic and septic; SP Gram positive bacteremia- contaminant; recurrent Right IJ changed to left IJ 06/10/20 MDR PsA bacteremia- likely from PNA -05/14 Bcx 09/12 S. haemolyticus; 05/17 Bcx Neg -05/31 Bcx / P.a -06/01 Bcx Neg -06/04 Bcx P.a MDR -06/06 BCx - NTD -06/11 SP R IJ cath removal- tip cath cx <10 S. epi (likely contaminant) UTI, sp rx UA (+); ucx 10-20k P. mirabilis (S Ceftriaxone, Cefepime) PNA, superimposed bacterial, sp rx Recent COVID19 pna- now repeat neg x2 -05/27 CXR: Previously seen left lung atelectasis has nearly completely resolved. Retrocardiac atelectasis without or with some component of consolidation. Low lung volumes with bronchovascular crowding. -05/26 CXR: Complete opacification of the left hemithorax with mediastinal shift to the left likely due to complete atelectasis of the left lung perhaps from mucous plugging. rapid COVID PCR neg -05/25 sp cx MDR PsA (I Ceftazidime, Colistin, Polymixin B); suspect colonizer SARS-COV2 neg -05/24 SARS-COV2 pCR inconclusive -05/23 CXR: Worsening aeration with increasing hazy opacification of the left lung base which may related to increased layering pleural effusion and adjacent atelectasis/consolidation. -05/19 CXR: Increasing left pleural fluid and likely basilar co nsolidation/atelectasis. Interim orogastric intubation 05/16 CXR: Retrocardiac density may represent atelectasis versus infiltrate. CXR 05/14/20 showed Retrocardiac atelectasis/infiltrate with Pulmonary venous congestion. sp cx MDR E.coli (S Cefepime, Meropenem, Zosyn) Hx of COVID 19 - Bacteria secondary infection? Asp PNA? COVID 19 tested Pos [facility] - about 3 week [employer] -still positive Rapid COVID PCR 05/14 Resp Fail Intuabted on Vent Leukocytosis; increased (sp steroids)- SP Fever; low grade ,recurrent -06/01 u/a wbc 10-15, nit neg, leuk +1 L femoral DVT EMA, SP SVT -sp cardioversion Hyperglycemia Elevated LFTs; resolving -Abd US: Gallbladder sludge. Negative for dilated bile ducts. Normal appearing liver and spleen. Trace ascites sp trach/peg 06/01 Dementia DM Hx CVA ( S/P PEG) pressure ulcers PLAN - Continue Zerbaxa #/ ( End date 06/18/20) - Please repeat Blood Cx 1 week after stopping abx to assure clearance of bacteremia - The lab is working on Zerbaxa and Avycaz Sensi - 06/03/20 SP Meropenem #2 - 06/02/20 SP Vancomycin #2 - 05/27 SP Meropenem # - 05/24 SP Decadron #11 - 05/19 SP IV Vancomcyin #6 - 05/17 SP Cefepime #4 - f/u Cultures - Monitor CBC and Temps -repeat covid neg x2 -f/u repeat cultures Thank you for consulting [facility]. Will continue to follow along with you. Discussed with RN and Pharmacy staff Subjective Allergies: Coded Allergies: DIVALPROEX SODIUM (Verified Allergy, Unknown, 05/14/20) PENICILLINS (Verified Allergy, Unknown, 05/14/20) afebrile mild leukocytosis repeat Bcx NTD Objective Last 24 Hour Vital Signs Date Time Temp Pulse Resp B/P (MAP) Pulse Ox O2 Delivery O2 Flow Rate FiO2 06/15/20 08:00 40 06/15/20 08:00 Mechanical Ventilator 06/15/20 07:59 98.4 62 10 109/40 (63) 99 06/15/20 07:44 57 06/15/20 07:30 58 12 40 06/15/20 04:00 99.3 60 12 123/56 (78) 100 06/15/20 04:00 65 06/15/20 04:00 40 06/15/20 04:00 Mechanical Ventilator 06/15/20 03:04 67 12 40 06/15/20 00:00 40 06/15/20 00:00 98.6 69 15 116/63 (80) 95 06/15/20 00:00 70 06/15/20 00:00 Mechanical Ventilator 06/14/20 22:49 69 14 40 06/14/20 20:00 40 06/14/20 20:00 Mechanical Ventilator 06/14/20 20:00 98.4 67 14 128/58 (81) 95 06/14/20 19:42 70 06/14/20 19:21 63 13 40 06/14/20 16:00 Mechanical Ventilator 06/14/20 16:00 40 06/14/20 16:00 98.0 64 12 117/72 (87) 100 06/14/20 15:32 62 06/14/20 15:05 69 13 40 06/14/20 12:00 98.2 68 12 139/74 (95) 99 06/14/20 12:00 40 06/14/20 12:00 Mechanical Ventilator 06/14/20 11:42 65 Height (Feet): 5 Height (Inches): 5.00 Weight (Pounds): 142 HEENT: NCAT, MMM, Pulm: Equal rise and fall B/L ABD: Soft, ND, PEG Laboratory Tests Test 06/15/20 02:40 White Blood Count 10.9 K/UL (4.8-10.8) H Red Blood Count 2.62 M/UL (4.20-5.40) L Hemoglobin 8.3 G/DL (12.0-16.0) L Hematocrit 24.1 % (37.0-47.0) L Mean Corpuscular Volume 92 FL (80-99) Mean Corpuscular Hemoglobin 31.7 PG (27.0-31.0) H Mean Corpuscular Hemoglobin Concent 34.4 G/DL (32.0-36.0) Red Cell Distribution Width 15.0 % (11.6-14.8) H Platelet Count 271 K/UL (150-450) Mean Platelet Volume 8.5 FL (6.5-10.1) Neutrophils (%) (Auto) 81.4 % (45.0-75.0) H Lymphocytes (%) (Auto) 9.1 % (20.0-45.0) L Monocytes (%) (Auto) 7.2 % (1.0-10.0) Eosinophils (%) (Auto) 0.5 % (0.0-3.0) Basophils (%) (Auto) 1.7 % (0.0-2.0) Prothrombin Time 11.0 SEC (9.30-11.50) Prothromb Time International Ratio 1.0 (0.9-1.1) Sodium Level 142 MMOL/L (136-145) Potassium Level 3.9 MMOL/L (3.5-5.1) Chloride Level 105 MMOL/L (98-107) Carbon Dioxide Level 31 MMOL/L (21-32) Anion Gap 7 mmol/L (5-15) Blood Urea Nitrogen 19 mg/dL (7-18) H Creatinine 0.5 MG/DL (0.55-1.30) L Estimat Glomerular Filtration Rate > 60 mL/min (>60) Glucose Level 93 MG/DL (74-106) Calcium Level 9.3 MG/DL (8.5-10.1) Current Medications Medications (Trade) Dose Ordered Sig/Morgan Route PRN Reason Start Time Stop Time Status Last Admin Dose Admin Acetaminophen (Tylenol) 650 mg Q4H PRN RECTAL Temp >100.5 05/16/20 19:45 06/15/20 19:44 05/17/20 18:30 Atropine Sulfate (Atropine 0.4mg/ ml) 0.4 mg Q2HR PRN IVP HR <45 05/29/20 21:30 06/28/20 19:24 05/30/20 22:39 Bisacodyl (Dulcolax) 10 mg DAILYPRN PRN RECTAL Constipation 06/13/20 17:15 09/11/20 17:14 Ceftolozane/ Tazobactam 1.5 gm/ Sodium Chloride 110 ml @ 110 mls/hr Q8H IV 06/10/20 18:00 06/18/20 23:59 06/15/20 09:38 Chlorhexidine Gluconate (Lilliam-Hex 2%) 1 applic DAILY@2000 TOPIC 06/08/20 20:00 09/06/20 19:59 06/14/20 20:05 Docusate Sodium (Colace) 100 mg TWICE A DAY GT 06/07/20 18:00 07/07/20 17:59 06/15/20 09:38 Fludrocortisone Acetate (Florinef) 0.1 mg DAILY ORAL 06/05/20 09:00 07/05/20 08:59 06/15/20 09:38 Lactulose (Cephulac) 20 gm BIDPRN PRN GT constipation 06/13/20 17:00 07/13/20 16:59 06/13/20 17:44 Lidocaine HCl (Xylocaine 1% 30ml) 30 ml NOW PRN INJ Radiology Procedure 06/14/20 12:15 06/17/20 12:14 Polyethylene Glycol (Miralax) 17 gm BEDTIME GT 06/07/20 21:00 07/07/20 20:59 06/14/20 20:06 Zinc Oxide (Zinc Oxide) 1 applic TIDPRN PRN TOPIC Abdominal cramps 05/20/20 13:00 08/18/20 12:59 Yomaira Terry M.D. Jun 15, 2020 11:39
--- NOTE | 2020-06-15 11:50 | General Progress Note ---
Subjective Date patient seen: Jun 15, 2020 Time patient seen: 12:00 ROS Limited/Unobtainable: Yes Allergies: Coded Allergies: DIVALPROEX SODIUM (Verified Allergy, Unknown, 05/14/20) PENICILLINS (Verified Allergy, Unknown, 05/14/20) Subjective LEFT IJ PLACED 06/[address] Non verbal Objective Last 24 Hour Vital Signs Date Time Temp Pulse Resp B/P (MAP) Pulse Ox O2 Delivery O2 Flow Rate FiO2 06/15/20 08:00 40 06/15/20 08:00 Mechanical Ventilator 06/15/20 07:59 98.4 62 10 109/40 (63) 99 06/15/20 07:44 57 06/15/20 07:30 58 12 40 06/15/20 04:00 99.3 60 12 123/56 (78) 100 06/15/20 04:00 65 06/15/20 04:00 40 06/15/20 04:00 Mechanical Ventilator 06/15/20 03:04 67 12 40 06/15/20 00:00 40 06/15/20 00:00 98.6 69 15 116/63 (80) 95 06/15/20 00:00 70 06/15/20 00:00 Mechanical Ventilator 06/14/20 22:49 69 14 40 06/14/20 20:00 40 06/14/20 20:00 Mechanical Ventilator 06/14/20 20:00 98.4 67 14 128/58 (81) 95 06/14/20 19:42 70 06/14/20 19:21 63 13 40 06/14/20 16:00 Mechanical Ventilator 06/14/20 16:00 40 06/14/20 16:00 98.0 64 12 117/72 (87) 100 06/14/20 15:32 62 06/14/20 15:05 69 13 40 06/14/20 12:00 98.2 68 12 139/74 (95) 99 06/14/20 12:00 40 06/14/20 12:00 Mechanical Ventilator Intake and Output 06/14/20 06/15/20 18:59 06:59 Intake Total 1230 ml 1120 ml Output Total 1000 ml 1250 ml Balance 230 ml -130 ml Free Water 400 ml 400 ml IV Total 110 ml Tube Feeding 720 ml 720 ml Output Urine Total 1000 ml 1250 ml # Bowel Movements 1 2 Laboratory Tests 06/15/20 02:40: White Blood Count 10.9H, Red Blood Count 2.62L, Hemoglobin 8.3L, Hematocrit 24.1L, Mean Corpuscular Volume 92, Mean Corpuscular Hemoglobin 31.7H, Mean Cor puscular Hemoglobin Concent 34.4, Red Cell Distribution Width 15.0H, Platelet Count 271, Mean Platelet Volume 8.5, Neutrophils (%) (Auto) 81.4H, Lymphocytes (%) (Auto) 9.1L, Monocytes (%) (Auto) 7.2, Eosinophils (%) (Auto) 0.5, Basophils (%) (Auto) 1.7, Prothrombin Time 11.0, Prothromb Time International Ratio 1.0, Sodium Level 142, Potassium Level 3.9, Chloride Level 105, Carbon Dioxide Level 31, Anion Gap 7, Blood Urea Nitrogen 19H, Creatinine 0.5L, Estimat Glomerular Filtration Rate > 60, Glucose Level 93, Calcium Level 9.3 Height (Feet): 5 Height (Inches): 5.00 Weight (Pounds): 142 General Appearance: WD/WN EENT: other - trach Neck: non-tender Cardiovascular: normal rate Respiratory/Chest: decreased breath sounds Neurologic: guillotine trimmer II-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 # Sepsis with element of cardiogenic shock Etiology COVID 19 vs UTI vs bacteremia / contaminant and NSTEMI Gram positive bacteremia- contaminant; recurrent -05/14 Bcx 09/12 S. haemolyticus; 05/17 Bcx Neg -05/31 Bcx 09/10 P.a -06/01 Bcx Neg -06/04 Bcx GNR Pseudomona with S to Colistin and Polymixin, I to Ceftazidime -06/06 BCx - no growth CATH TIP cx 06/11 Gram + cocci Sputum Cx 05/25 with Pseudomonas. Colonizer and recent completion of 14 day treatment with Meropenem U cx 05/14 Proteus Mirabillis Meropenem 14 days completed Vancomycin stopped stopped Cefepime Dexamethasone 10 day course completed Leukocytosis improved. Monitor clinically for now and OFF antibiotics per ID COVID NEGATIVE x 2 05/25 and 05/26 ID Safety Analyst - Zerbaxa DAY 07/23 for MDR PsA bacteremia, if worsening can try double coverage w/ colistin or polyB but overall slightly stable currently - FINAL PLAN per ID for length of therapy ( 14 day course needed ) until 06/18/20 and will NEED follow up blood culture on 06/25/20 - SNF updated and UNABLE TO TAKE THE PATIENT ON Zerbaxa due to cost. [employer]EL [employer]ER UPDATED. - Removed R IJ line and tip culture 06/11 NEW LEFT IJ PLACED 06/10. 2 Physician consent signed with Dr. Romeo from ID. Conservator was updated by RN and no response obtained. # Acute respiratory failure Intubated. Self extubated 05/27 and re intubated by ED MD successfully. ICU care appreciated Dr. Rock following Ventilator management per ICU-pulmonary FiO2 40 % today. T piece. Medically tracheostomy was needed and life saving procedure as she did not tolerate wean off from the ventilator. Overall, her quality of life will not improve from prior baseline with advanced dementia. Will need permanent ventilator support via tracheostomy and subacute level of care. Critical care attending, Surgery and GI attendings notified to plan PEG and TRACH as medically indicated and completed 06/02/20 # SVT vs A. Flutter s/p DC x 3 # NSTEMI HR is controlled in the 100 range and tolerating Digoxin Vasopressors in place Levophed at [address] Morillo requested and TTE requested and poor window. Troponin 3.4 now 0.7 EKG 05/17 NSR, stable. Inferior wall ischemia # AG metabolic acidosis Ddx lactic acidosis Improved. # Hyperglycemia r/o DKA ABG and Ketones negative Endocrine consult with Dr. Shelley IV insulin gtt stopped and in SQ insulin coverage now # Hypernatremia resolved Improving Monitor BMP change IVF rate and start free water flush per PEG - Monitor and try to HL IVF # COVID 19 Positive on admission, now NEGATIVE as of 05/25/20 On Dexamethasone completed 10 day course Contact and droplet isolation # Dysphagia PEG REMOVED 05/16 Carlo Vargas consulted NGT placed and Tube feeds started 05/18 and being tolerated at 45 cc hr Glucerna 1.2 # Severe protein caloric malnutrition with Albumin 1.5 RD follow up # Thrombocytopenia Platelets down from 80 K to 64 K to 66 K ( OFF Heparin ) and improved to normal range. 05/17 dc heparin, use SCD, order US Liver, HIT Ab, HIV negative Monitor carefully as Lovenox was restarted 06/03 for DVT # Newly detected lower extremity DVT Lovenox at 1 mg Kg SQ q 12 hr started 06/03 PM on HOLD 06/14 due to minor tracheostomy site bleed. Per surgery not concerning or active bleeding. IVCF might be needed and considering risk of anticoagulation vs benefit. Discussing with Dr. Rock and Dr. Garcia. # Hypokalemia # Hypophosphatemia Replace as needed # Anemia Etiology likely secondary to multiple blood draws vs RAULITO vs less likely GIB FOBT pending. iron studies SHOW IRON DEFICIENCY. ordered IV iron x 1 only Trend Hb and PRN PRBC if Hb less than 8, 1 unit 06/06 Hb is drifting down again and will monitor for need of PRBC # Dementia Baseline #DISPOSITION SNF subacute and NEED TO APPROVE Zerbaxa until 06/18/20 as is the ONLY good antibiotic choice per blood cx sensitivities. # FULL CODE SW follow up to reach out to DPOA and consider change in code status due to high morbidity and risk of inpatient mortality. Paperwork completed for superior court of the [facility] for request of tracheostomy and gastrostomy placement due to medical need on 05/26/20 Bioethic consult requested and spoke with Dr. Hung from ethics and I agree with his assessment that the patient quality of life will NOT IMPROVE with tracheostomy and replacement of PEG. The patient is very limited due to her underlying dementia and now unable to wean off the ventilator. SHE HAD THE NEED TO GET A TRACHEOSTOMY and PEG was replaced 06/01/[address] Garcia DUE TO MEDICAL NECESSITY AND LIFE SAVING PROCEDURES. DR. ROCK AND I AGREED AND SIGNED [address] MD [address] FORM. PENDING [address] DECISION REGARDING CODE STATUS. DNR IS MEDICALLY INDICATED. CURRENTLY FULL CODE BY PRIOR CONSERVATOR DECISION. > 50 min spent in coordination of care and consultation with physicians and RN. Jessica Wade MD Jun 15, 2020 11:50
[2020-06-15] MEDS ORDERED: Sodium Bicarbonate 4% 2.4meq/5ml vial IV PRN (12:30)
[2020-06-15] MEDS ORDERED: Lidocaine 1% Plain 30 ml INJ PRN (12:30)
--- NOTE | 2020-06-15 13:31 | NUR ---
CASE MANAGEMENT: REVIEW SI: s/p COVID-19 . RESPIRATORY FAILURE s/p TRACHEOSTOMY . s/p PEG T 98.2 HR 57 RR 12 BP 109/40 SAT 99% MECH VENT FIO2 40 WBC 10.9 H/H 8.3/24.1 BUN 19 CR 0.5 IS: ZERBAXA IV Q8HR LOVENOX SUBQ Q12HR PROTONIX IV QD GT FEEDING STEP DOWN UNIT STATUS DCP: PATIENT ACCEPTED TO [facility]
--- NOTE | 2020-06-15 13:42 | Cardiac Electrophysiology PN ---
Assessment/Plan Assessment/Plan 1. [id number] myocardial infarction with peak troponin of 3.4 EKG shows Inferolateral ischemia Due to septic shock, DCCV and Renal failure. Echo had poor windows. 2. PAF with RVR. S/P DCCV 3 times No more fib or accelerated junctional rhythm. Off any AVN ramakrishna for bradycardia 3. S/P Septic shock. On antibiotic. Off Midodrine in view of bradycardia On Florinef 0.1 daily 4. Bradycardia requiring Atropine x 3 on 05/30/20. Off Dopamine. Off Midodrine 5. Severe hypernatremia with sodium of 174, BUN of 131, creatinine 2.7 due to dehydration. Improved. Cr 0.5 6. Dysphagia, status post PEG replacement per Dr Matos 7. History of CVA and dementia. 8. Respiratory failure, S/P Tracheostomy by Dr. Garcia 06/01/20 KIMMY RN Subjective Subjective In SDU in SR with no atrial fib. Charles in 50s S/P bradycardia and received atropine 3 times on 05/31/20 S/P Trach and PEG on 06/02/20. ECG 06/02/20 showed inferolateral ischemia On 40% Fio2 and Peep 5. IVC filter pending today Objective Last 24 Hour Vital Signs Date Time Temp Pulse Resp B/P (MAP) Pulse Ox O2 Delivery O2 Flow Rate FiO2 06/15/20 12:00 60 06/15/20 12:00 40 06/15/20 12:00 Mechanical Ventilator 06/15/20 11:59 98.2 64 14 145/54 (84) 100 06/15/20 11:30 57 12 40 06/15/20 08:00 40 06/15/20 08:00 Mechanical Ventilator 06/15/20 07:59 98.4 62 10 109/40 (63) 99 06/15/20 07:44 57 06/15/20 07:30 58 12 40 06/15/20 04:00 99.3 60 12 123/56 (78) 100 06/15/20 04:00 65 06/15/20 04:00 40 06/15/20 04:00 Mechanical Ventilator 06/15/20 03:04 67 12 40 06/15/20 00:00 40 06/15/20 00:00 98.6 69 15 116/63 (80) 95 06/15/20 00:00 70 06/15/20 00:00 Mechanical Ventilator 06/14/20 22:49 69 14 40 06/14/20 20:00 40 06/14/20 20:00 Mechanical Ventilator 06/14/20 20:00 98.4 67 14 128/58 (81) 95 06/14/20 19:42 70 06/14/20 19:21 63 13 40 06/14/20 16:00 Mechanical Ventilator 06/14/20 16:00 40 06/14/20 16:00 98.0 64 12 117/72 (87) 100 06/14/20 15:32 62 06/14/20 15:05 69 13 40 Intake and Output 06/14/20 06/15/20 19:00 07:00 Intake Total 1230 ml 1060 ml Output Total 1000 ml 1250 ml Balance 230 ml -190 ml Free Water 400 ml 400 ml IV Total 110 ml Tube Feeding 720 ml 660 ml Output Urine Total 1000 ml 1250 ml # Bowel Movements 1 2 Laboratory Tests Test 06/15/20 02:40 White Blood Count 10.9 K/UL (4.8-10.8) H Red Blood Count 2.62 M/UL (4.20-5.40) L Hemoglobin 8.3 G/DL (12.0-16.0) L Hematocrit 24.1 % (37.0-47.0) L Mean Corpuscular Volume 92 FL (80-99) Mean Corpuscular Hemoglobin 31.7 PG (27.0-31.0) H Mean Corpuscular Hemoglobin Concent 34.4 G/DL (32.0-36.0) Red Cell Distribution Width 15.0 % (11.6-14.8) H Platelet Count 271 K/UL (150-450) Mean Platelet Volume 8.5 FL (6.5-10.1) Neutrophils (%) (Auto) 81.4 % (45.0-75.0) H Lymphocytes (%) (Auto) 9.1 % (20.0-45.0) L Monocytes (%) (Auto) 7.2 % (1.0-10.0) Eosinophils (%) (Auto) 0.5 % (0.0-3.0) Basophils (%) (Auto) 1.7 % (0.0-2.0) Prothrombin Time 11.0 SEC (9.30-11.50) Prothromb Time International Ratio 1.0 (0.9-1.1) Sodium Level 142 MMOL/L (136-145) Potassium Level 3.9 MMOL/L (3.5-5.1) Chloride Level 105 MMOL/L (98-107) Carbon Dioxide Level 31 MMOL/L (21-32) Anion Gap 7 mmol/L (5-15) Blood Urea Nitrogen 19 mg/dL (7-18) H Creatinine 0.5 MG/DL (0.55-1.30) L Estimat Glomerular Filtration Rate > 60 mL/min (>60) Glucose Level 93 MG/DL (74-106) Calcium Level 9.3 MG/DL (8.5-10.1) Objective HEAD AND NECK: No JVD. Tracheostomy in place. Left IJ line in place LUNGS: Coarse rhonchi. CARDIOVASCULAR: Regular S1 and S2 with no gallop. ABDOMEN: Soft. G-tube site in place EXTREMITIES: No pitting edema. Norman Morillo MD Jun 15, 2020 13:42
[2020-06-15] MEDS ORDERED: Omnipaque-300 100ml vial INJ ONE (15:44)
[2020-06-15] MEDS ORDERED: Omnipaque-300 100ml vial INJ PRN (15:45)
[2020-06-15] MEDS ORDERED: Heparin1,000 units/500ml Premix(Conc:2 units/ml) IV PRN (16:00)
--- NOTE | 2020-06-15 16:08 | NUR ---
NURSE NOTES: pt is stable, pt transferred to radiology for IVC with RN, RT Monzon and French, no stress noted. SARA Malin will take care pt in radiology.
--- NOTE | 2020-06-15 17:03 | Pre-Procedure Note/Attestation ---
Pre-Procedure Note/Attestation Complete Prior to Procedure Planned Procedure: not applicable Procedure Narrative: IVC filter Indications for Procedure Pre-Operative Diagnosis: DVT Attestation I attest that I discussed the nature of the procedure; its benefits; risks and complications; and alternatives (and the risks and benefits of such alternatives), prior to the procedure, with the patient (or the patient's legal medical sales representative). I attest that, if there was a reasonable possibility of needing a blood transfusion, the patient (or the patient's legal medical sales representative) was given the [facility] standardized written summary, pursuant to the [place] Blood Safety Act ([place] Health and Safety Code # 1645, as amended). I attest that I re-evaluated the patient just prior to the surgery and that there has been no change in the patient's H&P, except as documented below: 2 physician emergency consent documented Neeraj Grimaldo MD Jun 15, 2020 17:03
--- NOTE | 2020-06-15 17:05 | Brief Operative Note ---
Immediate Post Operative Note Operative Note Pre-op Diagnosis: DVT Procedure: IVC gram only. Filter dropped on floor, only one available Post-op Diagnosis: same as pre-op Surgeon: Quan Lozano Anesthesia: local Specimen: none Complications: yes - unable to perform Fluids: none Implant(s) used?: No Neeraj Lozano MD Jun 15, 2020 17:05
--- NOTE | 2020-06-15 17:22 | Surgery Progress Note ---
Surgery Progress Note Subjective Procedure Performed trach egd with peg Additional Comments no bleeding h/h stable dvt prior considered for filter placement ivc Objective Last 24 Hour Vital Signs Date Time Temp Pulse Resp B/P (MAP) Pulse Ox O2 Delivery O2 Flow Rate FiO2 06/15/20 16:56 69 12 121/70 (87) 100 06/15/20 16:51 69 12 126/67 (86) 100 06/15/20 16:46 69 12 127/74 (91) 100 06/15/20 16:41 75 12 122/75 (91) 100 06/15/20 16:36 79 12 124/73 (90) 100 06/15/20 16:31 70 12 126/75 (92) 100 06/15/20 16:00 40 06/15/20 16:00 70 12 35.0 06/15/20 15:45 Mechanical Ventilator 06/15/20 15:21 71 06/15/20 15:20 73 17 40 06/15/20 12:00 60 06/15/20 12:00 40 06/15/20 12:00 Mechanical Ventilator 06/15/20 11:59 98.2 64 14 145/54 (84) 100 06/15/20 11:30 57 12 40 06/15/20 08:00 40 06/15/20 08:00 Mechanical Ventilator 06/15/20 07:59 98.4 62 10 109/40 (63) 99 06/15/20 07:44 57 06/15/20 07:30 58 12 40 06/15/20 04:00 99.3 60 12 123/56 (78) 100 06/15/20 04:00 65 06/15/20 04:00 40 06/15/20 04:00 Mechanical Ventilator 06/15/20 03:04 67 12 40 06/15/20 00:00 40 06/15/20 00:00 98.6 69 15 116/63 (80) 95 06/15/20 00:00 70 06/15/20 00:00 Mechanical Ventilator 06/14/20 22:49 69 14 40 06/14/20 20:00 40 06/14/20 20:00 Mechanical Ventilator 06/14/20 20:00 98.4 67 14 128/58 (81) 95 06/14/20 19:42 70 06/14/20 19:21 63 13 40 I&O Intake and Output 06/14/20 06/15/20 19:00 07:00 Intake Total 1230 ml 1120 ml Output Total 1000 ml 1250 ml Balance 230 ml -130 ml Free Water 400 ml 400 ml IV Total 110 ml Tube Feeding 720 ml 720 ml Output Urine Total 1000 ml 1250 ml # Bowel Movements 1 2 Dressing: saturated Cardiovascular: RSR Respiratory: decreased breath sounds Abdomen: non-tender, present bowel sounds Extremities: edema, no tenderness, no cyanosis Laboratory Tests Test 06/15/20 02:40 White Blood Count 10.9 K/UL (4.8-10.8) H Red Blood Count 2.62 M/UL (4.20-5.40) L Hemoglobin 8.3 G/DL (12.0-16.0) L Hematocrit 24.1 % (37.0-47.0) L Mean Corpuscular Volume 92 FL (80-99) Mean Corpuscular Hemoglobin 31.7 PG (27.0-31.0) H Mean Corpuscular Hemoglobin Concent 34.4 G/DL (32.0-36.0) Red Cell Distribution Width 15.0 % (11.6-14.8) H Platelet Count 271 K/UL (150-450) Mean Platelet Volume 8.5 FL (6.5-10.1) Neutrophils (%) (Auto) 81.4 % (45.0-75.0) H Lymphocytes (%) (Auto) 9.1 % (20.0-45.0) L Monocytes (%) (Auto) 7.2 % (1.0-10.0) Eosinophils (%) (Auto) 0.5 % (0.0-3.0) Basophils (%) (Auto) 1.7 % (0.0-2.0) Prothrombin Time 11.0 SEC (9.30-11.50) Prothromb Time International Ratio 1.0 (0.9-1.1) Sodium Level 142 MMOL/L (136-145) Potassium Level 3.9 MMOL/L (3.5-5.1) Chloride Level 105 MMOL/L (98-107) Carbon Dioxide Level 31 MMOL/L (21-32) Anion Gap 7 mmol/L (5-15) Blood Urea Nitrogen 19 mg/dL (7-18) H Creatinine 0.5 MG/DL (0.55-1.30) L Estimat Glomerular Filtration Rate > 60 mL/min (>60) Glucose Level 93 MG/DL (74-106) Calcium Level 9.3 MG/DL (8.5-10.1) Plan Problems: (1) Hypernatremia (2) Renal failure (3) Respiratory failure (4) Sepsis Assessment & Plan: COVID + leukocytosis anemia electrolytes abnormal on iv fluids renal input appreciated cxr noted abx as per ID will follow with recs Will likely need trach difficult weaning conservatorship working with case management social work to figure out goals of care s/p peg and trach improving labs noted lovenox held repeat labs noted dressings around trach with staining. evaluated. no bleeding noted. slight bloody dressing. changed and reevaluted an hour later without any bleeding. serosang dressings trach stable no active bleeding trend labs much more comfortable Interim placement of orogastric tube, also documented on recent abdominal radiograph. Stable satisfactory position of endotracheal tube and right jugular central venous catheter. There is increased pleural fluid and likely left basilar consolidation/atelectasis. The right lung and pleural space remain clear. Impression: Increasing left pleural fluid and likely basilar consolidation/atelectasis. Interim orogastric intubation DAILY ESTIMATED NEEDS: Needs based on Pulmonary, DM, wounds 66.6kg 25-30 kcals/kg 9217-7279 total kcals 1.25-1.5 g protein/kg 83-100 g total protein 20-25 mL/kg 5572-2707 total fluid mLs NUTRITION DIAGNOSIS: Swallowing difficulty r/t dysphagia as evidenced by h/o CVA, pt is GT dep, currently ICU status, now intubated, off pressor support, GT feeds initiated. CURRENT TF:Glucerna 1.2 @45ml/hr ENTERAL NUTRITION RECOMMENDATIONS: As medically able: GLUCERNA 1.5 goal of 45ml/hr x24 hrs to provide 1080ml, 1620 kcal, 89g pro, 820ml free H2O -> as medically able without aspiration risk start Glucerna 1.5 @low rate 25ml/hr for 6 hrs. Advance as tolerated 10ml/hr q4-6 hrs to goal. - Flush per , HOB over 30 degrees. ---- If not hemodynamically stable, rec trophic feeds of 5-10ml/hr to maintain gut integrity. ADDITIONAL RECOMMENDATIONS: 1) Obtain an accurate calibrated bed scale wt 2) F/up w/ H&P 3) With active TF orders, add JASMYN BID for noted DTPI wounds 4) TF recs as above when off bipap and w/ hemodynamic stability -> Now intubated, off pressors, on GT feeds. he spleen size is normal. The gallbladder contains sludge. No stones. No wall thickening nor pericholecystic fluid. Common bile duct measures 4 mm in diameter. Small amount free fluid is seen adjacent to the liver and spleen Impression: Gallbladder sludge. Negative for dilated bile ducts Normal appearing liver and spleen Patient with respiratory failure intubated on support unable to wean safely. A tracheostomy in this case would be indicated and recommended. Patient is full code but conserved. Given her condition waiting a significant period of time is at high risk for her given the risk for extubation duration of tube and worsening with her ET tube. A trach would be functional manageable for her and recommended. Unfortunately waiting for the time. Would be advisable and discussed with the social workers [employer] and medical teams. Apartment Maintenance Supervisor as well. ICU team as well. We will proceed with tracheostomy in patient's best interest given her CODE STATUS and wishes and care plan. i have been asked by GI and medical teams to place PEG as well. after careful evaluation I agree with medical teams that patient would also benefit from feeding tube access. given her condition, Covid status, care plan, goals of care, will place peg at same time of trach to minimize exposure and OR time and limit procedure risks for patient. (5) Elevated d-dimer (6) COVID-19 Assessment & Plan: ++ (7) Pressure ulcer Assessment & Plan: Pt presented on admission with multiple Pressure injuries.DTPI noted to R Buttocks (L)3.8cm x (W)3.4cm. Base of wound is purpuric,fluctuant with surrounding maroon and indurated borders. DTPI Upper L Buttocks(L)5.5cm x (W)4cm. Base of wound is maroon and indurated. Borders are irregular. Non-Blanchable erythema without induration/fluctuance L lower buttocks(L)4cm x (W)7cm. R and L heels are soft but blanchable. Erosion noted at peristomal GT site. Site is erythematous and excoriated. Small amt. sanguineous exudate. Tx.Plan: Apply Moisture Barrier Paste to Sacrum, R and L Buttocks. Cover each area with Optifoam drsg. Change every 3 days and prn. Apply Moisture Barrier Paste to R and L Ischial tuberosities with each inco ntinence care. Apply Cavilon Skin Barrier to both heels. Cover each heel and malleoli with Optifoam drsg. Change every 7 days and prn. Reposition at least every 2hours or as tolerated. Off-load heels with pillow. APM/DARIN Mattress overlay. Apply Zinc Oxide Paste TID to GT site. Leave open to Air. (8) Dementia (9) CVA (cerebral vascular accident) (10) T2DM (type 2 diabetes mellitus) (11) Gastrostomy present (12) COVID-19 (13) Rapid atrial fibrillation Paul Garcia Jun 15, 2020 17:22
--- NOTE | 2020-06-15 17:47 | NUR ---
NURSE NOTES: pt came back from Radiology, per RN Kimo filter was dropped on floor and couldn't continue procedure, will do on Saturday. Tegaderm is on the R neck. no bleeding noted. will continue to monitor.
--- NOTE | 2020-06-15 19:28 | NUR ---
NURSE HAND-OFF REPORT: Important Events on Shift: Patient Status: Diet: Pending Orders: Pending Results/Labs: Pending MD notification: Latest Vital Signs: Temperature 98.2 , Pulse 75 , B/P 145 /54 , Respiratory Rate 18 , O2 SAT 100 , Mechanical Ventilator, O2 Flow Rate 35.0 . Vital Sign Comment: EKG Rhythm: Sinus Rhythm Rhythm change?: N MD Notified?: Y -Dr Ilia SEYMOUR Response: No New Orders Received Latest Garza Fall Score: 70 Fall Risk: High Risk Safety Measures: Call light Within Reach, Bed Alarm Zone 1, Side Rails Side Rails x3, Bed position Low and Locked. Fall Precautions: Yellow Socks Yellow Gown Door Sign Patient Fall Education Report given to . pt is srable, no stress noted. Endorsed plan of care.
--- NOTE | 2020-06-15 19:40 | NUR ---
NURSE NOTES: Received pt from [facility]. pt is lying in bed, not in distress. Tolerating vent setting of AC12, FiO2 40%, TV 500, PS 12, PEEP 5. and O2 sat @ 97%. GT is patent and intact running Glucerna 1.2 60cc /hr. IVC Filter site with tegaderm intact, and procedure will be done on Saturday, consent on the chart. IV on Left IJ intact and patent. Bed is locked and in lowest position, call light within reach. Will continue to monitor pt. Will continue with plan of care.
[2020-06-15] MEDS: Miralax 17gm pkt GT SCH (21:05)
[2020-06-15] MEDS: Dyna-Hex 2% Top Sol 2oz TOPIC SCH (21:05)
[2020-06-16] VITALS: BP 150/76
[2020-06-16] MEDS: CEFTOLOZANE IV SCH ×3 (02:13→17:36)
[2020-06-16] MEDS: TAZOBACTAM IV SCH ×3 (02:13→17:36)
[2020-06-16] MEDS: NS IV SCH ×3 (02:13→17:36)
--- NOTE | 2020-06-16 03:00 | NUR ---
NURSE NOTES: Seen pt in bed. Lying comfortably in semi-hough's position. Vent attached to pt. o2 sat at 97-100%. Suction as needed. Repositioned pt q2. Changed linens and sponge bnath given. No signs of respiratory distress. Still with minimal bleeding on trach area. MD aware. For IVC filter on Saturday. Left IJ stilll patent and flushing. Continue to plan of care.
[2020-06-16 04:00] VITALS: BP 121/71
[2020-06-16 05:07] LABS: HEMATOCRIT 23.4 % (37.0-47.0); HEMOGLOBIN 7.9 G/DL (12.0-16.0); MEAN CORPUSCULAR VOLUME 93 FL (80-99); PLATELET COUNT 249 K/UL (150-450); RED BLOOD COUNT 2.53 M/UL (4.20-5.40); RED CELL DISTRIBUTION WIDTH 14.9 % (11.6-14.8); WHITE BLOOD COUNT 10.9 K/UL (4.8-10.8)
[2020-06-16 05:19] LABS: BLOOD UREA NITROGEN 17 mg/dL (7-18); CALCIUM 8.4 MG/DL (8.5-10.1); CARBON DIOXIDE 30 MMOL/L (21-32); CHLORIDE 110 MMOL/L (98-107); CREATININE 0.5 MG/DL (0.55-1.30); POTASSIUM 3.3 MMOL/L (3.5-5.1); SODIUM 144 MMOL/L (136-145)
--- NOTE | 2020-06-16 06:00 | NUR ---
NURSE NOTES: Spoke to Dr. Wade about the latest labs: Hgb 7.9, K 3.3. New orders KCl 20mEq IV x 1. Will continue to monitor closely. No need for trasfusion as of the moment.
--- NOTE | 2020-06-16 06:12 | NUR ---
NURSE NOTES: Contacted Dr Low regarding the redness on the right side of the neck around the site of IVC filter. Awaiting for response.
--- NOTE | 2020-06-16 07:24 | NUR ---
NURSE HAND-OFF REPORT: Important Events on Shift: potassium is 3.3, trach scant bleeding, Hgb 7.9 Patient Status: Full Diet: glucerna 1.2 60cc/hr Pending Orders: None Pending Results/Labs:None Pending MD notification:Dr. Garcia informed of redness in right of neck. Latest Vital Signs: Temperature 98.7 , Pulse 78 , B/P 121 /71 , Respiratory Rate 15 , O2 SAT 100 , Mechanical Ventilator, O2 Flow Rate 35.0 . Vital Sign Comment: stable EKG Rhythm: Sinus Rhythm Rhythm change?: N MD Notified?: Y -Dr Ilia SEYMOUR Response: No New Orders Received Latest Garza Fall Score: 70 Fall Risk: High Risk Safety Measures: Call light Within Reach, Bed Alarm Zone 1, Side Rails Side Rails x3, Bed position Low and Locked. Fall Precautions: Yellow Socks Yellow Gown Door Sign Patient Fall Education Report given to [facility].
--- NOTE | 2020-06-16 07:24 | NUR ---
NURSE NOTES: Received report from [facility]. Patient is resting in bed, in stable condition. No s/sx of SOB, breathing is even and unlabored, patient on vent with vent settings as ordered. Patient is nonverbal, observed no presence of pain or discomfort at this time. Bed is in lowest position, brakes engaged. Call light is kept within easy reach. Will continue to monitor patient.
[2020-06-16 08:00] VITALS: BP 126/65
[2020-06-16] MEDS: Docusate 100mg/10ml Liq GT SCH ×2 (08:38→17:22)
--- NOTE | 2020-06-16 10:39 | Pulmonology Progress Note ---
Subjective ROS Limited/Unobtainable: Yes Interval Events: Tracheal bleding resolved Constitutional: Reports: no symptoms HEENT: Repors: no symptoms Respiratory: Reports: no symptoms Cardiovascular: Reports: no symptoms Gastrointestinal/Abdominal: Reports: no symptoms Genitourinary: Reports: no symptoms Allergies: Coded Allergies: DIVALPROEX SODIUM (Verified Allergy, Unknown, 05/14/20) PENICILLINS (Verified Allergy, Unknown, 05/14/20) All Systems: reviewed and negative except above Objective Last 24 Hour Vital Signs Date Time Temp Pulse Resp B/P (MAP) Pulse Ox O2 Delivery O2 Flow Rate FiO2 06/16/20 08:00 40 06/16/20 08:00 99.0 75 15 126/65 (85) 100 06/16/20 08:00 75 06/16/20 08:00 Mechanical Ventilator 06/16/20 07:10 73 16 40 06/16/20 04:00 Mechanical Ventilator 06/16/20 04:00 40 06/16/20 04:00 79 06/16/20 04:00 98.7 78 15 121/71 (88) 100 06/16/20 02:53 84 17 40 06/16/20 00:00 Mechanical Ventilator 06/16/20 00:00 98.7 83 16 150/76 (100) 100 06/15/20 23:31 80 06/15/20 22:48 77 18 40 06/15/20 20:00 98.4 75 14 127/50 (75) 100 06/15/20 20:00 40 06/15/20 20:00 Mechanical Ventilator 06/15/20 20:00 70 06/15/20 19:19 75 18 40 06/15/20 17:45 98.2 64 14 145/54 (84) 100 06/15/20 16:56 69 12 121/70 (87) 100 06/15/20 16:51 69 12 126/67 (86) 100 06/15/20 16:46 69 12 127/74 (91) 100 06/15/20 16:41 75 12 122/75 (91) 100 06/15/20 16:36 79 12 124/73 (90) 100 06/15/20 16:31 70 12 126/75 (92) 100 06/15/20 16:00 40 06/15/20 16:00 70 12 35.0 06/15/20 15:45 Mechanical Ventilator 06/15/20 15:21 71 06/15/20 15:20 73 17 40 06/15/20 12:00 60 06/15/20 12:00 40 06/15/20 12:00 Mechanical Ventilator 06/15/20 11:59 98.2 64 14 145/54 (84) 100 06/15/20 11:30 57 12 40 Intake and Output 06/15/20 06/16/20 18:59 06:59 Intake Total 1230 ml 1340 ml Output Total 1300 ml 1300 ml Balance -70 ml 40 ml Free Water 400 ml 400 ml IV Total 110 ml 220 ml Tube Feeding 720 ml 720 ml Output Urine Total 1300 ml 1300 ml # Bowel Movements 1 3 General Appearance: no acute distress HEENT: normocephalic, status post trach Respiratory: chest wall non-tender, lungs clear, other - trach in place Cardiovascular: normal peripheral pulses, normal rate, regular rhythm Abdomen: normal bowel sounds, soft, non tender, non distended, other - GT Extremities: no cyanosis, no clubbing, no edema Neurologic: unresponsiveness Laboratory Tests 06/16/20 03:15: White Blood Count 10.9H, Red Blood Count 2.53L, Hemoglobin 7.9L, Hematocrit 23.4L, Mean Corpuscular Volume 93, Mean Corpuscular Hemoglobin 31.2H, Mean Corpuscular Hemoglobin Concent 33.6, Red Cell Distribution Width 14.9H, Platelet Count 249, Mean Platelet Volume 8.5, Neutrophils (%) (Auto) , Lymphocytes (%) (Auto) , Monocytes (%) (Auto) , Eosinophils (%) (Auto) , Basophils (%) (Auto) , Sodium Level 144, Potassium Level 3.3L, Chloride Level 110H, Carbon Dioxide Level 30, Blood Urea Nitrogen 17, Creatinine 0.5L, Estimat Glomerular Filtration Rate > 60, Glucose Level 97, Calcium Level 8.4L Current Medications Medications (Trade) Dose Ordered Sig/Morgan Route PRN Reason Start Time Stop Time Status Last Admin Dose Admin Atropine Sulfate (Atropine 0.4mg/ ml) 0.4 mg Q2HR PRN IVP HR <45 05/29/20 21:30 06/28/20 19:24 05/30/20 22:39 Bisacodyl (Dulcolax) 10 mg DAILYPRN PRN RECTAL Constipation 06/13/20 17:15 09/11/20 17:14 Ceftolozane/ Tazobactam 1.5 gm/ Sodium Chloride 110 ml @ 110 mls/hr Q8H IV 06/10/20 18:00 06/18/20 23:59 06/16/20 09:57 Chlorhexidine Gluconate (Lilliam-Hex 2%) 1 applic DAILY@2000 TOPIC 06/08/20 20:00 09/06/20 19:59 06/15/20 21:05 Docusate Sodium (Colace) 100 mg TWICE A DAY GT 06/07/20 18:00 07/07/20 17:59 06/16/20 08:38 Fludrocortisone Acetate (Florinef) 0.1 mg DAILY ORAL 06/05/20 09:00 07/05/20 08:59 06/16/20 08:38 Heparin Sodium/ Sodium Chloride (Heparin 1000 units/500ml Premix) 1,000 unit ONCE PRN IV radiology procedure 06/15/20 16:00 06/17/20 15:59 Iohexol (OMNIPAQUE-300 100ml) 100 ml ONCE PRN INJ radiology procedure 06/15/20 15:45 06/17/20 15:44 Lactulose (Cephulac) 20 gm BIDPRN PRN GT constipation 06/13/20 17:00 07/13/20 16:59 06/13/20 17:44 Lidocaine HCl (Xylocaine 1% 30ml) 30 ml NOW PRN INJ Radiology Procedure 06/14/20 12:15 06/17/20 12:14 Lidocaine HCl (Xylocaine 1% 30ml) 30 ml NOW PRN INJ Radiology Procedure 06/15/20 12:30 06/18/20 12:29 Polyethylene Glycol (Miralax) 17 gm BEDTIME GT 06/07/20 21:00 07/07/20 20:59 06/15/20 21:05 Sodium Bicarbonate (Sodium Bicarbonate 4%) 1 ml NOW PRN IV Radiology Procedure 06/15/20 12:30 06/18/20 12:29 Zinc Oxide (Zinc Oxide) 1 applic TIDPRN PRN TOPIC Abdominal cramps 05/20/20 13:00 08/18/20 12:59 Assessment/Plan Assessment/Plan IMPRESSION: 1. Respiratory failure. 2. Diabetes mellitus with hyperglycemia. 3. Septic shock. 4. Chronic G-tube. 5. Decubitus. 6. History of CHF. 7. Tracheal bleeding; Hgb now 8 DISCUSSION: Continue fluids and antibiotics. Pressors prn S/p trach Will continue weaning On 40% FiO2 DVT and GI prophylaxis. Will hold Lovenox due to anemia and tracheal bleeding DC planning to sub-acute Discussed with Dr. Wade. S/p PEG Agree with IVC filter placement Jaskaran Enriquez M.D. Jaskaran Enriquez MD Jun 16, 2020 10:39
[2020-06-16 12:00] VITALS: BP 124/64
--- NOTE | 2020-06-16 12:08 | General Progress Note ---
Subjective ROS Limited/Unobtainable: No Allergies: Coded Allergies: DIVALPROEX SODIUM (Verified Allergy, Unknown, 05/14/20) PENICILLINS (Verified Allergy, Unknown, 05/14/20) Objective Last 24 Hour Vital Signs Date Time Temp Pulse Resp B/P (MAP) Pulse Ox O2 Delivery O2 Flow Rate FiO2 06/16/20 08:00 40 06/16/20 08:00 99.0 75 15 126/65 (85) 100 06/16/20 08:00 75 06/16/20 08:00 Mechanical Ventilator 06/16/20 07:10 73 16 40 06/16/20 04:00 Mechanical Ventilator 06/16/20 04:00 40 06/16/20 04:00 79 06/16/20 04:00 98.7 78 15 121/71 (88) 100 06/16/20 02:53 84 17 40 06/16/20 00:00 Mechanical Ventilator 06/16/20 00:00 98.7 83 16 150/76 (100) 100 06/15/20 23:31 80 06/15/20 22:48 77 18 40 06/15/20 20:00 98.4 75 14 127/50 (75) 100 06/15/20 20:00 40 06/15/20 20:00 Mechanical Ventilator 06/15/20 20:00 70 06/15/20 19:19 75 18 40 06/15/20 17:45 98.2 64 14 145/54 (84) 100 06/15/20 16:56 69 12 121/70 (87) 100 06/15/20 16:51 69 12 126/67 (86) 100 06/15/20 16:46 69 12 127/74 (91) 100 06/15/20 16:41 75 12 122/75 (91) 100 06/15/20 16:36 79 12 124/73 (90) 100 06/15/20 16:31 70 12 126/75 (92) 100 06/15/20 16:00 40 06/15/20 16:00 70 12 35.0 06/15/20 15:45 Mechanical Ventilator 06/15/20 15:21 71 06/15/20 15:20 73 17 40 Intake and Output 06/15/20 06/16/20 19:00 07:00 Intake Total 1230 ml 1280 ml Output Total 1300 ml 1300 ml Balance -70 ml -20 ml Free Water 400 ml 400 ml IV Total 110 ml 220 ml Tube Feeding 720 ml 660 ml Output Urine Total 1300 ml 1300 ml # Bowel Movements 1 3 Laboratory Tests 06/16/20 03:15: White Blood Count 10.9H, Red Blood Count 2.53L, Hemoglobin 7.9L, Hematocrit 23.4L, Mean Corpuscular Volume 93, Mean Corpuscular Hemoglobin 31.2H, Mean Corpuscular Hemoglobin Concent 33.6, Red Cell Distribution Width 14.9H, Platelet Count 249, Mean Platelet Volume 8.5, Neutrophils (%) (Auto) , Lymphocytes (%) (Auto) , Monocytes (%) (Auto) , Eosinophils (%) (Auto) , Basophils (%) (Auto) , Sodium Level 144, Potassium Level 3.3L, Chloride Level 110H, Carbon Dioxide Level 30, Blood Urea Nitrogen 17, Creatinine 0.5L, Estimat Glomerular Filtration Rate > 60, Glucose Level 97, Calcium Level 8.4L Height (Feet): 5 Height (Inches): 5.00 Weight (Pounds): 142 General Appearance: no apparent distress EENT: normal ENT inspection Neck: supple Cardiovascular: normal rate Respiratory/Chest: decreased breath sounds Abdomen: normal bowel sounds, non tender, soft Assessment/Plan Status: stable Assessment/Plan: 1. History of CVA. 2. Dementia. 3. Dysphagia with G-tube. 4. Cachexia. 5. Diabetes. 6. Pressure ulcers. 7. Hypothyroidism. 8. Legal blindness. 9. Currently COVID positive. s/p peg and trach GTF monitor for residuals fu labs supportive care cbc in Jhon An MD Jun 16, 2020 12:08
--- NOTE | 2020-06-16 12:47 | General Progress Note ---
Subjective Date patient seen: Jun 16, 2020 Time patient seen: 12:00 ROS Limited/Unobtainable: Yes Allergies: Coded Allergies: DIVALPROEX SODIUM (Verified Allergy, Unknown, 05/14/20) PENICILLINS (Verified Allergy, Unknown, 05/14/20) Subjective LEFT IJ PLACED 06/[address] Non verbal Objective Last 24 Hour Vital Signs Date Time Temp Pulse Resp B/P (MAP) Pulse Ox O2 Delivery O2 Flow Rate FiO2 06/16/20 08:00 40 06/16/20 08:00 99.0 75 15 126/65 (85) 100 06/16/20 08:00 75 06/16/20 08:00 Mechanical Ventilator 06/16/20 07:10 73 16 40 06/16/20 04:00 Mechanical Ventilator 06/16/20 04:00 40 06/16/20 04:00 79 06/16/20 04:00 98.7 78 15 121/71 (88) 100 06/16/20 02:53 84 17 40 06/16/20 00:00 Mechanical Ventilator 06/16/20 00:00 98.7 83 16 150/76 (100) 100 06/15/20 23:31 80 06/15/20 22:48 77 18 40 06/15/20 20:00 98.4 75 14 127/50 (75) 100 06/15/20 20:00 40 06/15/20 20:00 Mechanical Ventilator 06/15/20 20:00 70 06/15/20 19:19 75 18 40 06/15/20 17:45 98.2 64 14 145/54 (84) 100 06/15/20 16:56 69 12 121/70 (87) 100 06/15/20 16:51 69 12 126/67 (86) 100 06/15/20 16:46 69 12 127/74 (91) 100 06/15/20 16:41 75 12 122/75 (91) 100 06/15/20 16:36 79 12 124/73 (90) 100 06/15/20 16:31 70 12 126/75 (92) 100 06/15/20 16:00 40 06/15/20 16:00 70 12 35.0 06/15/20 15:45 Mechanical Ventilator 06/15/20 15:21 71 06/15/20 15:20 73 17 40 Intake and Output 06/15/20 06/16/20 19:00 07:00 Intake Total 1230 ml 1280 ml Output Total 1300 ml 1300 ml Balance -70 ml -20 ml Free Water 400 ml 400 ml IV Total 110 ml 220 ml Tube Feeding 720 ml 660 ml Output Urine Total 1300 ml 1300 ml # Bowel Movements 1 3 Laboratory Tests 06/16/20 03:15: White Blood Count 10.9H, Red Blood Count 2.53L, Hemoglobin 7.9L, Hematocrit 23.4L, Mean Corpuscular Volume 93, Mean Corpuscular Hemoglobin 31.2H, Mean Corpuscular Hemoglobin Concent 33.6, Red Cell Distribution Width 14.9H, Platelet Count 249, Mean Platelet Volume 8.5, Neutrophils (%) (Auto) , Lymphocytes (%) (Auto) , Monocytes (%) (Auto) , Eosinophils (%) (Auto) , Basophils (%) (Auto) , Sodium Level 144, Potassium Level 3.3L, Chloride Level 110H, Carbon Dioxide Level 30, Blood Urea Nitrogen 17, Creatinine 0.5L, Estimat Glomerular Filtration Rate > 60, Glucose Level 97, Calcium Level 8.4L Height (Feet): 5 Height (Inches): 5.00 Weight (Pounds): 142 General Appearance: moderate distress EENT: PERRL/EOMI Neck: non-tender Cardiovascular: normal rate Respiratory/Chest: decreased breath sounds Edema: trace edema Neurologic: archival records clerk II-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 # Sepsis with element of cardiogenic shock Etiology COVID 19 vs UTI vs bacteremia / contaminant and NSTEMI Gram positive bacteremia- contaminant; recurrent -05/14 Bcx / S. haemolyticus; 05/17 Bcx Neg -05/31 Bcx 09/10 P.a -06/01 Bcx Neg -06/04 Bcx GNR Pseudomona with S to Colistin and Polymixin, I to Ceftazidime -06/06 BCx - no growth CATH TIP cx 06/11 Gram + cocci STAPH EPIDERMIDIS ( SENS TO TETRACYCLINE AND VACOMYNCIN ) Sputum Cx 05/25 with Pseudomonas. Colonizer and recent completion of 14 day treatment with Meropenem U cx 05/14 Proteus Mirabillis Meropenem 14 days completed Vancomycin stopped stopped Cefepime Dexamethasone 10 day course completed Leukocytosis improved. Monitor clinically for now and OFF antibiotics per ID COVID NEGATIVE x 2 05/25 and 05/26 ID Straddle Truck Operator - Zerbaxa DAY 08/22 for MDR PsA bacteremia, if worsening can try double coverage w/ colistin or polyB but overall slightly stable currently - FINAL PLAN per ID for length of therapy ( 14 day course needed ) until 06/18/20 and will NEED follow up blood culture on 06/25/20 - SNF updated and UNABLE TO TAKE THE PATIENT ON Zerbaxa due to cost. INTERIOR DESIGN CONSULTANT UPDATED. - Removed R IJ line and tip culture 06/11 - AWAIT ID DIRECTOR OF HEMOPHILIA INPUT REGARDING NEED FOR FURTHER ANTIBIOTIC. NEW LEFT IJ PLACED 06/10. 2 Physician consent signed with Dr. Romeo from ID. Conservator was updated by RN and no response obtained. # Acute respiratory failure Intubated. Self extubated 05/27 and re intubated by ED MD successfully. ICU care appreciated Dr. Rock following Ventilator management per ICU-pulmonary FiO2 40 % today. T piece. Medically tracheostomy was needed and life saving procedure as she did not tolerate wean off from the ventilator. Overall, her quality of life will not improve from prior baseline with advanced dementia. Will need permanent ventilator support via tracheostomy and subacute level of care. Critical care attending, Surgery and GI attendings notified to plan PEG and TRACH as medically indicated and completed 06/02/20 # SVT vs A. Flutter s/p DC x 3 # NSTEMI HR is controlled in the 100 range and tolerating Digoxin Vasopressors in place Levophed at [address] Morillo requested and TTE requested and poor window. Troponin 3.4 now 0.7 EKG 05/17 NSR, stable. Inferior wall ischemia # AG metabolic acidosis Ddx lactic acidosis Improved. # Hyperglycemia r/o DKA ABG and Ketones negative Endocrine consult with Dr. Shelley IV insulin gtt stopped and in SQ insulin coverage now # Hypernatremia resolved Improving Monitor BMP change IVF rate and start free water flush per PEG - Monitor and try to HL IVF # COVID 19 Positive on admission, now NEGATIVE as of 05/25/20 On Dexamethasone completed 10 day course Contact and droplet isolation # Dysphagia PEG REMOVED 05/16 Carlo Vargas consulted NGT placed and Tube feeds started 05/18 and being tolerated at 45 cc hr Glucerna 1.2 # Severe protein caloric malnutrition with Albumin 1.5 RD follow up # Thrombocytopenia Platelets down from 80 K to 64 K to 66 K ( OFF Heparin ) and improved to normal range. 05/17 dc heparin, use SCD, order US Liver, HIT Ab, HIV negative Monitor carefully as Lovenox was restarted 06/03 for DVT # Newly detected lower extremity DVT Lovenox at 1 mg Kg SQ q 12 hr started 06/03 PM on HOLD 06/14 due to minor tracheostomy site bleed. Per surgery not concerning or active bleeding. IVCF might be needed and considering risk of anticoagulation vs benefit. Discussing with Dr. Rock and Dr. Garcia. # Hypokalemia # Hypophosphatemia Replace as needed # Anemia Etiology likely secondary to multiple blood draws vs RAULITO vs less likely GIB FOBT pending. iron studies SHOW IRON DEFICIENCY. ordered IV iron x 1 only Trend Hb and PRN PRBC if Hb less than 8, 1 unit 06/06 Hb is drifting down again and will monitor for need of PRBC AWAIT HB TOMORROW 06/17 TO DECIDE FURTHER PRBC # Dementia Baseline #DISPOSITION SNF subacute and NEED TO APPROVE Zerbaxa until 06/18/20 as is the ONLY good antibiotic choice per blood cx sensitivities. # FULL CODE SW follow up to reach out to DPOA and consider change in code status due to high morbidity and risk of inpatient mortality. Paperwork completed for superior court of the [facility] for request of tracheostomy and gastrostomy placement due to medical need on 05/26/20 Bioethic consult requested and spoke with Dr. Hung from ethics and I agree with his assessment that the patient quality of life will NOT IMPROVE with tracheostomy and replacement of PEG. The patient is very limited due to her underlying dementia and now unable to wean off the ventilator. SHE HAD THE NEED TO GET A TRACHEOSTOMY and PEG was replaced 06/01/[address] Garcia DUE TO MEDICAL NECESSITY AND LIFE SAVING PROCEDURES. DR. ROCK AND I AGREED AND SIGNED [address] FORM[address] PEND[address] DECISION REGARDING CODE STATUS. DNR IS MEDICALLY INDICATED. CURRENTLY FULL CODE BY PRIOR CONSERVATOR DECISION. > 50 min spent in coordination of care and consultation with physicians and SARA. Jessica Wade MD Jun 16, 2020 12:47
--- NOTE | 2020-06-16 13:25 | NUR ---
NURSE NOTES: Patient noted with active order for SCDs for DVT prophylaxis, patient has known left femoral DVT, patient is for IVC filter tomorrow 06/17/2020; contacted and informed Dr. Wade of assessments, Dr. Wade acknowledged and ordered to discontinue SCDs. Order discontinued. Will continue to monitor patient.
--- NOTE | 2020-06-16 15:27 | Surgery Progress Note ---
Surgery Progress Note Subjective Procedure Performed trach egd with peg Additional Comments h/h noted comfortable no bleeding trach okay dressings okay Objective Last 24 Hour Vital Signs Date Time Temp Pulse Resp B/P (MAP) Pulse Ox O2 Delivery O2 Flow Rate FiO2 06/16/20 15:00 77 16 40 06/16/20 12:00 72 06/16/20 12:00 Mechanical Ventilator 06/16/20 12:00 99.0 74 15 124/64 (84) 100 06/16/20 12:00 40 06/16/20 11:30 74 13 40 06/16/20 08:00 40 06/16/20 08:00 99.0 75 15 126/65 (85) 100 06/16/20 08:00 75 06/16/20 08:00 Mechanical Ventilator 06/16/20 07:10 73 16 40 06/16/20 04:00 Mechanical Ventilator 06/16/20 04:00 40 06/16/20 04:00 79 06/16/20 04:00 98.7 78 15 121/71 (88) 100 06/16/20 02:53 84 17 40 06/16/20 00:00 Mechanical Ventilator 06/16/20 00:00 98.7 83 16 150/76 (100) 100 06/15/20 23:31 80 06/15/20 22:48 77 18 40 06/15/20 20:00 98.4 75 14 127/50 (75) 100 06/15/20 20:00 40 06/15/20 20:00 Mechanical Ventilator 06/15/20 20:00 70 06/15/20 19:19 75 18 40 06/15/20 17:45 98.2 64 14 145/54 (84) 100 06/15/20 16:56 69 12 121/70 (87) 100 06/15/20 16:51 69 12 126/67 (86) 100 06/15/20 16:46 69 12 127/74 (91) 100 06/15/20 16:41 75 12 122/75 (91) 100 06/15/20 16:36 79 12 124/73 (90) 100 06/15/20 16:31 70 12 126/75 (92) 100 06/15/20 16:00 40 06/15/20 16:00 70 12 35.0 06/15/20 15:45 Mechanical Ventilator I&O Intake and Output 06/15/20 06/16/20 19:00 07:00 Intake Total 1230 ml 1280 ml Output Total 1300 ml 1300 ml Balance -70 ml -20 ml Free Water 400 ml 400 ml IV Total 110 ml 220 ml Tube Feeding 720 ml 660 ml Output Urine Total 1300 ml 1300 ml # Bowel Movements 1 3 Dressing: dry Wound: clean Cardiovascular: RSR Respiratory: decreased breath sounds Abdomen: non-tender, present bowel sounds Extremities: no edema, no tenderness, no cyanosis Laboratory Tests Test 06/16/20 03:15 White Blood Count 10.9 K/UL (4.8-10.8) H Red Blood Count 2.53 M/UL (4.20-5.40) L Hemoglobin 7.9 G/DL (12.0-16.0) L Hematocrit 23.4 % (37.0-47.0) L Mean Corpuscular Volume 93 FL (80-99) Mean Corpuscular Hemoglobin 31.2 PG (27.0-31.0) H Mean Corpuscular Hemoglobin Concent 33.6 G/DL (32.0-36.0) Red Cell Distribution Width 14.9 % (11.6-14.8) H Platelet Count 249 K/UL (150-450) Mean Platelet Volume 8.5 FL (6.5-10.1) Neutrophils (%) (Auto) % (45.0-75.0) Lymphocytes (%) (Auto) % (20.0-45.0) Monocytes (%) (Auto) % (1.0-10.0) Eosinophils (%) (Auto) % (0.0-3.0) Basophils (%) (Auto) % (0.0-2.0) Sodium Level 144 MMOL/L (136-145) Potassium Level 3.3 MMOL/L (3.5-5.1) L Chloride Level 110 MMOL/L (98-107) H Carbon Dioxide Level 30 MMOL/L (21-32) Blood Urea Nitrogen 17 mg/dL (7-18) Creatinine 0.5 MG/DL (0.55-1.30) L Estimat Glomerular Filtration Rate > 60 mL/min (>60) Glucose Level 97 MG/DL (74-106) Calcium Level 8.4 MG/DL (8.5-10.1) L Plan Problems: (1) Hypernatremia (2) Renal failure (3) Respiratory failure (4) Sepsis Assessment & Plan: COVID + leukocytosis anemia electrolytes abnormal on iv fluids renal input appreciated cxr noted abx as per ID will follow with recs Will likely need trach difficult weaning conservatorship working with case management social work to figure out goals of care s/p peg and trach improving labs noted lovenox held repeat labs noted dressings around trach with staining. evaluated. no bleeding noted. slight bloody dressing. changed and reevaluted an hour later without any bleeding. serosang dressings trach stable no active bleeding trend labs much more comfortable Interim placement of orogastric tube, also documented on recent abdominal radiograph. Stable satisfactory position of endotracheal tube and right jugular central venous catheter. There is increased pleural fluid and likely left ba silar consolidation/atelectasis. The right lung and pleural space remain clear. Impression: Increasing left pleural fluid and likely basilar consolidation/atelectasis. Interim orogastric intubation DAILY ESTIMATED NEEDS: Needs based on Pulmonary, DM, wounds 66.6kg 25-30 kcals/kg 6082-7597 total kcals 1.25-1.5 g protein/kg 83-100 g total protein 20-25 mL/kg 4345-0052 total fluid mLs NUTRITION DIAGNOSIS: Swallowing difficulty r/t dysphagia as evidenced by h/o CVA, pt is GT dep, currently ICU status, now intubated, off pressor support, GT feeds initiated. CURRENT TF:Glucerna 1.2 @45ml/hr ENTERAL NUTRITION RECOMMENDATIONS: As medically able: GLUCERNA 1.5 goal of 45ml/hr x24 hrs to provide 1080ml, 1620 kcal, 89g pro, 820ml free H2O -> as medically able without aspiration risk start Glucerna 1.5 @low rate 25ml/hr for 6 hrs. Advance as tolerated 10ml/hr q4-6 hrs to goal. - Flush per MD, HOB over 30 degrees. ---- If not hemodynamically stable, rec trophic feeds of 5-10ml/hr to maintain gut integrity. ADDITIONAL RECOMMENDATIONS: 1) Obtain an accurate calibrated bed scale wt 2) F/up w/ H&P 3) With active TF orders, add JASMYN BID for noted DTPI wounds 4) TF recs as above when off bipap and w/ hemodynamic stability -> Now intubated, off pressors, on GT feeds. he spleen size is normal. The gallbladder contains sludge. No stones. No wall thickening nor pericholecystic fluid. Common bile duct measures 4 mm in diameter. Small amount free fluid is seen adjacent to the liver and spleen Impression: Gallbladder sludge. Negative for dilated bile ducts Normal appearing liver and spleen Patient with respiratory failure intubated on support unable to wean safely. A tracheostomy in this case would be indicated and recommended. Patient is full code but conserved. Given her condition waiting a significant period of time is at high risk for her given the risk for extubation duration of tube and worsening with her ET tube. A trach would be functional manageable for her and recommended. Unfortunately waiting for the time. Would be advisable and discussed with the social workers residential case manager and medical teams. Pulmo nologist as well. ICU team as well. We will proceed with tracheostomy in patient's best interest given her CODE STATUS and wishes and care plan. i have been asked by GI and medical teams to place PEG as well. after careful evaluation I agree with medical teams that patient would also benefit from feeding tube access. given her condition, Covid status, care plan, goals of care, will place peg at same time of trach to minimize exposure and OR time and limit procedure risks for patient. (5) Elevated d-dimer (6) COVID-19 Assessment & Plan: ++ (7) Pressure ulcer Assessment & Plan: Pt presented on admission with multiple Pressure injuries.DTPI noted to R Buttocks (L)3.8cm x (W)3.4cm. Base of wound is purpuric,fluctuant with surrounding maroon and indurated borders. DTPI Upper L Buttocks(L)5.5cm x (W)4cm. Base of wound is maroon and indurated. Borders are irregular. Non-Blanchable erythema without induration/fluctuance L lower buttocks(L)4cm x (W)7cm. R and L heels are soft but blanchable. Erosion noted at peristomal GT site. Site is erythematous and excoriated. Small amt. sanguineous exudate. Tx.Plan: Apply Moisture Barrier Paste to Sacrum, R and L Buttocks. Cover each area with Optifoam drsg. Change every 3 days and prn. Apply Moisture Barrier Paste to R and L Ischial tuberosities with each incontinence care. Apply Cavilon Skin Barrier to both heels. Cover each heel and malleoli with Optifoam drsg. Change every 7 days and prn. Reposition at least every 2hours or as tolerated. Off-load heels with pillow. APM/DARIN Mattress overlay. Apply Zinc Oxide Paste TID to GT site. Leave open to Air. (8) Dementia (9) CVA (cerebral vascular accident) (10) T2DM (type 2 diabetes mellitus) (11) Gastrostomy present (12) COVID-19 (13) Rapid atrial fibrillation Paul Garcia Jun 16, 2020 15:26
[2020-06-16 16:00] VITALS: BP 121/71
--- NOTE | 2020-06-16 16:13 | Cardiac Electrophysiology PN ---
Assessment/Plan Assessment/Plan 1. Uuf-[id number]-[id number] myocardial infarction with peak troponin of 3.4 EKG shows Inferolateral ischemia Due to septic shock, DCCV and Renal failure. Echo had poor windows. 2. PAF with RVR. S/P DCCV 3 times No more fib or accelerated junctional rhythm. Off any AVN ramakrishna for bradycardia 3. S/P Septic shock. On antibiotic. Off Midodrine in view of bradycardia On Florinef 0.1 daily 4. Bradycardia requiring Atropine x 3 on 05/30/20. Off Dopamine and Midodrine 5. Severe hypernatremia with sodium of 174, BUN of 131, creatinine 2.7 due to dehydration. Improved. Cr 0.5 6. Dysphagia, status post PEG replacement per Dr Matos 7. History of CVA and dementia. 8. Respiratory failure, S/P Tracheostomy by Dr. Garcia 06/01/20 9. DVT. IVC filter pending DW RN Subjective Subjective In SDU in SR with no atrial fib. Charles in 50s S/P bradycardia and received atropine 3 times on 05/31/20 S/P Trach and PEG on 06/02/20. ECG 06/02/20 showed inferolateral ischemia On 40% Fio2 and Peep 5. IVC filter rescheduled for tomorrow Objective Last 24 Hour Vital Signs Date Time Temp Pulse Resp B/P (MAP) Pulse Ox O2 Delivery O2 Flow Rate FiO2 06/16/20 15:00 77 16 40 06/16/20 12:00 72 06/16/20 12:00 Mechanical Ventilator 06/16/20 12:00 99.0 74 15 124/64 (84) 100 06/16/20 12:00 40 06/16/20 11:30 74 13 40 06/16/20 08:00 40 06/16/20 08:00 99.0 75 15 126/65 (85) 100 06/16/20 08:00 75 06/16/20 08:00 Mechanical Ventilator 06/16/20 07:10 73 16 40 06/16/20 04:00 Mechanical Ventilator 06/16/20 04:00 40 06/16/20 04:00 79 06/16/20 04:00 98.7 78 15 121/71 (88) 100 06/16/20 02:53 84 17 40 06/16/20 00:00 Mechanical Ventilator 06/16/20 00:00 98.7 83 16 150/76 (100) 100 06/15/20 23:31 80 06/15/20 22:48 77 18 40 06/15/20 20:00 98.4 75 14 127/50 (75) 100 06/15/20 20:00 40 06/15/20 20:00 Mechanical Ventilator 06/15/20 20:00 70 06/15/20 19:19 75 18 40 06/15/20 17:45 98.2 64 14 145/54 (84) 100 06/15/20 16:56 69 12 121/70 (87) 100 06/15/20 16:51 69 12 126/67 (86) 100 06/15/20 16:46 69 12 127/74 (91) 100 06/15/20 16:41 75 12 122/75 (91) 100 06/15/20 16:36 79 12 124/73 (90) 100 06/15/20 16:31 70 12 126/75 (92) 100 Intake and Output 06/15/20 06/16/20 19:00 07:00 Intake Total 1230 ml 1280 ml Output Total 1300 ml 1300 ml Balance -70 ml -20 ml Free Water 400 ml 400 ml IV Total 110 ml 220 ml Tube Feeding 720 ml 660 ml Output Urine Total 1300 ml 1300 ml # Bowel Movements 1 3 Laboratory Tests Test 06/16/20 03:15 White Blood Count 10.9 K/UL (4.8-10.8) H Red Blood Count 2.53 M/UL (4.20-5.40) L Hemoglobin 7.9 G/DL (12.0-16.0) L Hematocrit 23.4 % (37.0-47.0) L Mean Corpuscular Volume 93 FL (80-99) Mean Corpuscular Hemoglobin 31.2 PG (27.0-31.0) H Mean Corpuscular Hemoglobin Concent 33.6 G/DL (32.0-36.0) Red Cell Distribution Width 14.9 % (11.6-14.8) H Platelet Count 249 K/UL (150-450) Mean Platelet Volume 8.5 FL (6.5-10.1) Neutrophils (%) (Auto) % (45.0-75.0) Lymphocytes (%) (Auto) % (20.0-45.0) Monocytes (%) (Auto) % (1.0-10.0) Eosinophils (%) (Auto) % (0.0-3.0) Basophils (%) (Auto) % (0.0-2.0) Sodium Level 144 MMOL/L (136-145) Potassium Level 3.3 MMOL/L (3.5-5.1) L Chloride Level 110 MMOL/L (98-107) H Carbon Dioxide Level 30 MMOL/L (21-32) Blood Urea Nitrogen 17 mg/dL (7-18) Creatinine 0.5 MG/DL (0.55-1.30) L Estimat Glomerular Filtration Rate > 60 mL/min (>60) Glucose Level 97 MG/DL (74-106) Calcium Level 8.4 MG/DL (8.5-10.1) L Objective HEAD AND NECK: No JVD. Tracheostomy in place. Left IJ line in place LUNGS: Coarse rhonchi. CARDIOVASCULAR: Regular S1 and S2 with no gallop. ABDOMEN: Soft. G-tube site in place EXTREMITIES: No pitting edema. Norman Morillo MD Jun 16, 2020 16:13
--- NOTE | 2020-06-16 17:59 | Infectious Diseases Prog Note ---
Assessment/Plan 70 yo female with PMHx of Dementia, DM, CVA ( S/P PEG), COVID 19 infection and pressure ulcers. Septic Shock-combination cardiogenic and septic; SP Gram positive bacteremia- contaminant; recurrent Right IJ changed to left IJ 06/10/20 MDR PsA bacteremia- likely from PNA -05/14 Bcx 09/12 S. haemolyticus; 05/17 Bcx Neg -05/31 Bcx / P.a -06/01 Bcx Neg -06/04 Bcx P.a MDR -06/06 BCx - NTD -06/11 SP R IJ cath removal- tip cath cx <10 S. epi (likely contaminant) UTI, sp rx UA (+); ucx 10-20k P. mirabilis (S Ceftriaxone, Cefepime) PNA, superimposed bacterial, sp rx Recent COVID19 pna- now repeat neg x2 -05/27 CXR: Previously seen left lung atelectasis has nearly completely resolved. Retrocardiac atelectasis without or with some component of consolidation. Low lung volumes with bronchovascular crowding. -05/26 CXR: Complete opacification of the left hemithorax with mediastinal shift to the left likely due to complete atelectasis of the left lung perhaps from mucous plugging. rapid COVID PCR neg -05/25 sp cx MDR PsA (I Ceftazidime, Colistin, Polymixin B); suspect colonizer SARS-COV2 neg -05/24 SARS-COV2 pCR inconclusive -05/23 CXR: Worsening aeration with increasing hazy opacification of the left lung base which may related to increased layering pleural effusion and adjacent atelectasis/consolidation. -05/19 CXR: Increasing left pleural fluid and likely basilar co nsolidation/atelectasis. Interim orogastric intubation 05/16 CXR: Retrocardiac density may represent atelectasis versus infiltrate. CXR 05/14/20 showed Retrocardiac atelectasis/infiltrate with Pulmonary venous congestion. sp cx MDR E.coli (S Cefepime, Meropenem, Zosyn) Hx of COVID 19 - Bacteria secondary infection? Asp PNA? COVID 19 tested Pos [facility] - about 3 week [employer] -still positive Rapid COVID PCR 05/14 Resp Fail Intuabted on Vent Leukocytosis; increased (sp steroids)- SP Fever; low grade ,recurrent -06/01 u/a wbc 10-15, nit neg, leuk +1 L femoral DVT EMA, SP SVT -sp cardioversion Hyperglycemia Elevated LFTs; resolving -Abd US: Gallbladder sludge. Negative for dilated bile ducts. Normal appearing liver and spleen. Trace ascites sp trach/peg 06/01 Dementia DM Hx CVA ( S/P PEG) pressure ulcers PLAN - Continue Zerbaxa #12/ ( End date 06/18/20) - Please repeat Blood Cx 1 week after stopping abx to assure clearance of bacteremia - The lab is working on Zerbaxa and Avycaz Sensi - 06/03/20 SP Meropenem #2 - 06/02/20 SP Vancomycin #2 - 05/27 SP Meropenem #11 - 05/24 SP Decadron #11 - 05/19 SP IV Vancomcyin #6 - 05/17 SP Cefepime #4 - f/u Cultures - Monitor CBC and Temps -repeat covid neg x2 -f/u repeat cultures Thank you for consulting [facility]. Will continue to follow along with you. Discussed with RN and Pharmacy staff Subjective Allergies: Coded Allergies: DIVALPROEX SODIUM (Verified Allergy, Unknown, 05/14/20) PENICILLINS (Verified Allergy, Unknown, 05/14/20) afebrile mild leukocytosis repeat Bcx NTD Objective Last 24 Hour Vital Signs Date Time Temp Pulse Resp B/P (MAP) Pulse Ox O2 Delivery O2 Flow Rate FiO2 06/16/20 16:00 Mechanical Ventilator 06/16/20 16:00 66 06/16/20 16:00 40 06/16/20 16:00 98.6 72 15 121/71 (88) 100 06/16/20 15:00 77 16 40 06/16/20 12:00 72 06/16/20 12:00 Mechanical Ventilator 06/16/20 12:00 99.0 74 15 124/64 (84) 100 06/16/20 12:00 40 06/16/20 11:30 74 13 40 06/16/20 08:00 40 06/16/20 08:00 99.0 75 15 126/65 (85) 100 06/16/20 08:00 75 06/16/20 08:00 Mechanical Ventilator 06/16/20 07:10 73 16 40 06/16/20 04:00 Mechanical Ventilator 06/16/20 04:00 40 06/16/20 04:00 79 06/16/20 04:00 98.7 78 15 121/71 (88) 100 06/16/20 02:53 84 17 40 06/16/20 00:00 Mechanical Ventilator 06/16/20 00:00 98.7 83 16 150/76 (100) 100 06/15/20 23:31 80 06/15/20 22:48 77 18 40 06/15/20 20:00 98.4 75 14 127/50 (75) 100 06/15/20 20:00 40 06/15/20 20:00 Mechanical Ventilator 06/15/20 20:00 70 06/15/20 19:19 75 18 40 Height (Feet): 5 Height (Inches): 5.00 Weight (Pounds): 142 HEENT: NCAT, MMM, Pulm: Equal rise and fall B/L ABD: Soft, ND, PEG Laboratory Tests Test 06/16/20 03:15 White Blood Count 10.9 K/UL (4.8-10.8) H Red Blood Count 2.53 M/UL (4.20-5.40) L Hemoglobin 7.9 G/DL (12.0-16.0) L Hematocrit 23.4 % (37.0-47.0) L Mean Corpuscular Volume 93 FL (80-99) Mean Corpuscular Hemoglobin 31.2 PG (27.0-31.0) H Mean Corpuscular Hemoglobin Concent 33.6 G/DL (32.0-36.0) Red Cell Distribution Width 14.9 % (11.6-14.8) H Platelet Count 249 K/UL (150-450) Mean Platelet Volume 8.5 FL (6.5-10.1) Neutrophils (%) (Auto) % (45.0-75.0) Lymphocytes (%) (Auto) % (20.0-45.0) Monocytes (%) (Auto) % (1.0-10.0) Eosinophils (%) (Auto) % (0.0-3.0) Basophils (%) (Auto) % (0.0-2.0) Sodium Level 144 MMOL/L (136-145) Potassium Level 3.3 MMOL/L (3.5-5.1) L Chloride Level 110 MMOL/L (98-107) H Carbon Dioxide Level 30 MMOL/L (21-32) Blood Urea Nitrogen 17 mg/dL (7-18) Creatinine 0.5 MG/DL (0.55-1.30) L Estimat Glomerular Filtration Rate > 60 mL/min (>60) Glucose Level 97 MG/DL (74-106) Calcium Level 8.4 MG/DL (8.5-10.1) L Current Medications Medications (Trade) Dose Ordered Sig/Morgan Route PRN Reason Start Time Stop Time Status Last Admin Dose Admin Atropine Sulfate (Atropine 0.4mg/ ml) 0.4 mg Q2HR PRN IVP HR <45 05/29/20 21:30 06/28/20 19:24 05/30/20 22:39 Bisacodyl (Dulcolax) 10 mg DAILYPRN PRN RECTAL Constipation 06/13/20 17:15 09/11/20 17:14 Ceftolozane/ Tazobactam 1.5 gm/ Sodium Chloride 110 ml @ 110 mls/hr Q8H IV 06/10/20 18:00 06/18/20 23:59 06/16/20 17:36 Chlorhexidine Gluconate (Lilliam-Hex 2%) 1 applic DAILY@2000 TOPIC 06/08/20 20:00 09/06/20 19:59 06/15/20 21:05 Docusate Sodium (Colace) 100 mg TWICE A DAY GT 06/07/20 18:00 07/07/20 17:59 06/16/20 17:22 Fludrocortisone Acetate (Florinef) 0.1 mg DAILY ORAL 06/05/20 09:00 07/05/20 08:59 06/16/20 08:38 Heparin Sodium/ Sodium Chloride (Heparin 1000 units/500ml Premix) 1,000 unit ONCE PRN IV radiology procedure 06/15/20 16:00 06/17/20 15:59 Iohexol (OMNIPAQUE-300 100ml) 100 ml ONCE PRN INJ radiology procedure 06/15/20 15:45 06/17/20 15:44 Lactulose (Cephulac) 20 gm BIDPRN PRN GT constipation 06/13/20 17:00 07/13/20 16:59 06/13/20 17:44 Lidocaine HCl (Xylocaine 1% 30ml) 30 ml NOW PRN INJ Radiology Procedure 06/14/20 12:15 06/17/20 12:14 Lidocaine HCl (Xylocaine 1% 30ml) 30 ml NOW PRN INJ Radiology Procedure 06/15/20 12:30 06/18/20 12:29 Polyethylene Glycol (Miralax) 17 gm BEDTIME GT 06/07/20 21:00 07/07/20 20:59 06/15/20 21:05 Sodium Bicarbonate (Sodium Bicarbonate 4%) 1 ml NOW PRN IV Radiology Procedure 06/15/20 12:30 06/18/20 12:29 Zinc Oxide (Zinc Oxide) 1 applic TIDPRN PRN TOPIC Abdominal cramps 05/20/20 13:00 08/18/20 12:59 Yomaira Terry M.D. Jun 16, 2020 17:59
--- NOTE | 2020-06-16 19:05 | NUR ---
RESPIRATORY NOTE: Received pt on VOL AC 12, 500VT, PEEP +5, 40%. Pt is trach-dependent w/ a Cuffed, Shiley 8 tube. Pt asleep/disoriented. B/S camryn. rhonchi, sxn small amounts of thick/thin, pale-yellow to jim-yellow secretions w/ occasional blood clots. Vent plugged into red outlet, ambubag at bedside. Pt resting comfortably, in no apparent distress at this time. Will continue plan of care.
--- NOTE | 2020-06-16 19:15 | NUR ---
NURSE NOTES: Received report from SARA Sevilla. Pt is lying on bed, not in distress. Vital signs stable. Trach to vent tolerating the setting and O2 saturation on 98-100%. PICC line in left IJ TLC, patent and intact and no redness. Gtube patent and intact running Glucerna1.2 @ 60cc/hr. Bed is in locked and in lowest position, head of bed elevated, call light within reached. Will continue to monitor pt. Will continue with plan of care.
--- NOTE | 2020-06-16 19:22 | NUR ---
NURSE HAND-OFF REPORT: Important Events on Shift: Patient Status: Stable Diet: Glucerna 1.2 60 ml/hr Pending Orders: None Pending Results/Labs:None Pending MD notification:None Latest Vital Signs: Temperature 98.6 , Pulse 58 , B/P 121 /71 , Respiratory Rate 12 , O2 SAT 100 , Mechanical Ventilator, O2 Flow Rate 35.0 . Vital Sign Comment: Stable EKG Rhythm: Sinus Rhythm Rhythm change?: N MD Notified?: Marcella Morillo MD Response: No New Orders Received Latest Garza Fall Score: 70 Fall Risk: High Risk Safety Measures: Call light Within Reach, Bed Alarm Zone 1, Side Rails Side Rails x3, Bed position Low and Locked. Fall Precautions: Yellow Socks Yellow Gown Door Sign Patient Fall Education Report given to SARA Díaz.
[2020-06-16 20:00] VITALS: BP 117/57
[2020-06-16] MEDS: Miralax 17gm pkt GT SCH (21:00)
[2020-06-16] MEDS: Dyna-Hex 2% Top Sol 2oz TOPIC SCH (21:00)
[2020-06-17] VITALS (8 sets, daily range): BP systolic 96–141; BP diastolic 52–75
--- NOTE | 2020-06-17 | NUR ---
NURSE NOTES: Noted pt in Sinus Charles @ 48. Pt is sleeping. Bed bath given, pt repositioned, oral care given. Noted white thick sputum. Suction done. Tolerating current vent setting, saturating at 99% Will continue to monitor pt.
[2020-06-17] MEDS: CEFTOLOZANE IV SCH ×3 (02:17→18:26)
[2020-06-17] MEDS: NS IV SCH ×3 (02:17→18:26)
[2020-06-17] MEDS: TAZOBACTAM IV SCH ×3 (02:17→18:26)
[2020-06-17 06:07] LABS: HEMATOCRIT 23.3 % (37.0-47.0); HEMOGLOBIN 7.9 G/DL (12.0-16.0); MEAN CORPUSCULAR VOLUME 93 FL (80-99); PLATELET COUNT 240 K/UL (150-450); RED CELL DISTRIBUTION WIDTH 15.3 % (11.6-14.8); WHITE BLOOD COUNT 7.9 K/UL (4.8-10.8)
[2020-06-17 06:24] LABS: ALANINE AMINOTRANSFERASE 57 U/L (12-78); ALBUMIN/GLOBULIN RATIO 0.5 (1.0-2.7); ALKALINE PHOSPHATASE 80 U/L (46-116); ANION GAP 3 mmol/L (5-15); ASPARTATE AMINO TRANSFERASE 30 U/L (15-37); BILIRUBIN,TOTAL 0.2 MG/DL (0.2-1.0); BLOOD UREA NITROGEN 21 mg/dL (7-18); CALCIUM 8.5 MG/DL (8.5-10.1); CARBON DIOXIDE 33 MMOL/L (21-32); CHLORIDE 108 MMOL/L (98-107); CREATININE 0.5 MG/DL (0.55-1.30); POTASSIUM 4.6 MMOL/L (3.5-5.1); SODIUM 144 MMOL/L (136-145)
--- NOTE | 2020-06-17 07:02 | NUR ---
NURSE HAND-OFF REPORT: Important Events on Shift:Sinus Charles @ 45 while sleeping Patient Status: stable Diet: Glucerna 1.2 @ 60 cc/hr Pending Orders: N Pending Results/Labs:N Pending notification:N Latest Vital Signs: Temperature 98.8 , Pulse 59 , B/P 100 /62 , Respiratory Rate 15 , O2 SAT 100 , Mechanical Ventilator, O2 Flow Rate 35.0 . Vital Sign Comment: stable EKG Rhythm: Sinus Rhythm Rhythm change?: N MD Notified?: Y -Dr Ilia SEYMOUR Response: No New Orders Received Latest Garza Fall Score: 70 Fall Risk: High Risk Safety Measures: Call light Within Reach, Bed Alarm Zone 1, Side Rails Side Rails x3, Bed position Low and Locked. Fall Precautions: Yellow Socks Yellow Gown Door Sign Patient Fall Education Report given to SARA Sevilla.
--- NOTE | 2020-06-17 07:19 | NUR ---
NURSE NOTES: Received report from SARA Díaz. Patient is resting in bed, in stable condition. No s/sx of SOB, breathing is even and unlabored, vent settings are as ordered. Patient is nonverbal, observed no presence of pain or discomfort at this time. Bed is in lowest position, brakes engaged. Call light is kept within easy reach. Will continue to monitor patient.
[2020-06-17] MEDS: Docusate 100mg/10ml Liq GT SCH ×2 (08:33→18:25)
[2020-06-17] MEDS ORDERED: Tubing IV Secondary IV ONE (09:00)
[2020-06-17] MEDS ORDERED: NS 275ml ONE (09:00)
--- NOTE | 2020-06-17 09:00 | NUR ---
NURSE NOTES: Patient noted with hemoglobin level of 7.[address] Wade was contacted and made aware of assessment. Dr. Wade acknowledged and ordered to transfuse 1 unit of PRBC today, CBC and CMP tomorrow morning. Orders entered, noted, and carried out. Will continue to monitor patient.
--- NOTE | 2020-06-17 09:19 | NUR ---
CASE MANAGEMENT: REVIEW 06/17/2020 SI:SEPSIS. VS: T 98.8 HR 59 RR 15 B/P 100/62 SATS 100% ON MECH VENT FIO2 40 LABS: HGB 7.9 HCT 23.3 CL 108 CO2 33 BUN 21 CR 0.5 IS:ZERBAXA IV Q8HR END DATE 06/18 LOVENOX SUBQ Q12HR PROTONIX IV QD SDU DCP: QUENTIN PADILLA PLAN OF CARE: UMBRELLA FILTER
--- NOTE | 2020-06-17 10:30 | Surgery Progress Note ---
Surgery Progress Note Subjective Procedure Performed trach egd with peg Additional Comments afebrile, HD stable improving tolerating diet Objective Last 24 Hour Vital Signs Date Time Temp Pulse Resp B/P (MAP) Pulse Ox O2 Delivery O2 Flow Rate FiO2 06/17/20 08:00 40 06/17/20 08:00 71 06/17/20 08:00 98.1 54 15 100/62 (75) 100 06/17/20 08:00 Mechanical Ventilator 06/17/20 07:25 55 12 40 06/17/20 04:00 40 06/17/20 04:00 98.8 59 15 100/62 (75) 100 06/17/20 04:00 Mechanical Ventilator 06/17/20 04:00 60 06/17/20 03:06 51 12 40 06/17/20 00:00 63 06/17/20 00:00 40 06/17/20 00:00 98.4 56 12 96/52 (67) 100 06/17/20 00:00 Mechanical Ventilator 06/16/20 23:28 63 12 40 06/16/20 20:00 98.4 62 19 117/57 (77) 100 06/16/20 20:00 Mechanical Ventilator 06/16/20 20:00 62 06/16/20 19:02 58 12 40 06/16/20 16:00 Mechanical Ventilator 06/16/20 16:00 66 06/16/20 16:00 40 06/16/20 16:00 98.6 72 15 121/71 (88) 100 06/16/20 15:00 77 16 40 06/16/20 12:00 72 06/16/20 12:00 Mechanical Ventilator 06/16/20 12:00 99.0 74 15 124/64 (84) 100 06/16/20 12:00 40 06/16/20 11:30 74 13 40 I&O Intake and Output 06/16/20 06/17/20 19:00 07:00 Intake Total 2120 ml 910 ml Output Total 1200 ml 1200 ml Balance 920 ml -290 ml Free Water 300 ml 250 ml IV Total 1100 ml Tube Feeding 720 ml 660 ml Output Urine Total 1200 ml 1200 ml # Bowel Movements 4 4 Dressing: saturated Cardiovascular: RSR Respiratory: decreased breath sounds Abdomen: soft, non-tender, present bowel sounds, non-distended Extremities: no tenderness, no cyanosis Laboratory Tests Test 06/17/20 04:00 White Blood Count 7.9 K/UL (4.8-10.8) Red Blood Count 2.50 M/UL (4.20-5.40) L Hemoglobin 7.9 G/DL (12.0-16.0) L Hematocrit 23.3 % (37.0-47.0) L Mean Corpuscular Volume 93 FL (80-99) Mean Corpuscular Hemoglobin 31.6 PG (27.0-31.0) H Mean Corpuscular Hemoglobin Concent 34.0 G/DL (32.0-36.0) Red Cell Distribution Width 15.3 % (11.6-14.8) H Platelet Count 240 K/UL (150-450) Mean Platelet Volume 9.0 FL (6.5-10.1) Neutrophils (%) (Auto) % (45.0-75.0) Lymphocytes (%) (Auto) % (20.0-45.0) Monocytes (%) (Auto) % (1.0-10.0) Eosinophils (%) (Auto) % (0.0-3.0) Basophils (%) (Auto) % (0.0-2.0) Sodium Level 144 MMOL/L (136-145) Potassium Level 4.6 MMOL/L (3.5-5.1) Chloride Level 108 MMOL/L (98-107) H Carbon Dioxide Level 33 MMOL/L (21-32) H Anion Gap 3 mmol/L (5-15) L Blood Urea Nitrogen 21 mg/dL (7-18) H Creatinine 0.5 MG/DL (0.55-1.30) L Estimat Glomerular Filtration Rate > 60 mL/min (>60) Glucose Level 103 MG/DL (74-106) Calcium Level 8.5 MG/DL (8.5-10.1) Total Bilirubin 0.2 MG/DL (0.2-1.0) Aspartate Amino Transf (AST/SGOT) 30 U/L (15-37) Alanine Aminotransferase (ALT/SGPT) 57 U/L (12-78) Alkaline Phosphatase 80 U/L (46-116) Total Protein 5.8 G/DL (6.4-8.2) L Albumin 2.0 G/DL (3.4-5.0) L Globulin 3.8 g/dL Albumin/Globulin Ratio 0.5 (1.0-2.7) L Plan Problems: (1) Hypernatremia (2) Renal failure (3) Respiratory failure (4) Sepsis Assessment & Plan: COVID + leukocytosis anemia electrolytes abnormal on iv fluids renal input appreciated cxr noted abx as per ID will follow with recs Will likely need trach difficult weaning conservatorship working with case management social work to figure out goals of care s/p peg and trach improving labs noted lovenox held repeat labs noted dressings around trach with staining. evaluated. no bleeding noted. slight bloody dressing. changed and reevaluted an hour later without any bleeding. serosang dressings trach stable no active bleeding trend labs much more comfortable Interim placement of orogastric tube, also documented on recent abdominal radiograph. Stable satisfactory position of endotracheal tube and right jugular central venous catheter. There is increased pleural fluid and likely left basilar consolidation/atelectasis. The right lung and pleural space remain clear. Impression: Increasing left pleural fluid and likely basilar consolidation/atelectasis. Interim orogastric intubation DAILY ESTIMATED NEEDS: Needs based on Pulmonary, DM, wounds 66.6kg 25-30 kcals/kg 8680-6827 total kcals 1.25-1.5 g protein/kg 83-100 g total protein 20-25 mL/kg 4451-4464 total fluid mLs NUTRITION DIAGNOSIS: Swallowing difficulty r/t dysphagia as evidenced by h/o CVA, pt is GT dep, currently ICU status, now intubated, off pressor support, GT feeds initiated. CURRENT TF:Glucerna 1.2 @45ml/hr ENTERAL NUTRITION RECOMMENDATIONS: As medically able: GLUCERNA 1.5 goal of 45ml/hr x24 hrs to provide 1080ml, 1620 kcal, 89g pro, 820ml free H2O -> as medically able without aspiration risk start Glucerna 1.5 @low rate 25ml/hr for 6 hrs. Advance as tolerated 10ml/hr q4-6 hrs to goal. - Flush per MD, HOB over 30 degrees. ---- If not hemodynamically stable, rec trophic feeds of 5-10ml/hr to maintain gut integrity. ADDITIONAL RECOMMENDATIONS: 1) Obtain an accurate calibrated bed scale wt 2) F/up w/ H&P 3) With active TF orders, add JASMYN BID for noted DTPI wounds 4) TF recs as above when off bipap and w/ hemodynamic stability -> Now intubated, off pressors, on GT feeds. he spleen size is normal. The gallbladder contains sludge. No stones. No wall thickening nor pericholecystic fluid. Common bile duct measures 4 mm in diameter. Small amount free fluid is seen adjacent to the liver and spleen Impression: Gallbladder sludge. Negative for dilated bile ducts Normal appearing liver and spleen Patient with respiratory failure intubated on support unable to wean safely. A tracheostomy in this case would be indicated and recommended. Patient is full code but conserved. Given her condition waiting a significant period of time is at high risk for her given the risk for extubation duration of tube and worsening with her ET tube. A trach would be functional manageable for her and recommended. Unfortunately waiting for the time. Would be advisable and discussed with the social workers case management social worker and medical teams. Still Cleaner Tube as well. ICU team as well. We will proceed with tracheostomy in patient's best interest given her CODE STATUS and wishes and care plan. i have been asked by GI and medical teams to place PEG as well. after careful evaluation I agree with medical teams that patient would also benefit from feeding tube access. given her condition, Covid status, care plan, goals of care, will place peg at same time of trach to minimize exposure and OR time and limit procedure risks for patient. (5) Elevated d-dimer (6) COVID-19 Assessment & Plan: ++ (7) Pressure ulcer Assessment & Plan: Pt presented on admission with multiple Pressure injuries.DTPI noted to R Buttocks (L)3.8cm x (W)3.4cm. Base of wound is purpuric,fluctuant with surrounding maroon and indurated borders. DTPI Upper L Buttocks(L)5.5cm x (W)4cm. Base of wound is maroon and indurated. Borders are irregular. Non-Blanchable erythema without induration/fluctuance L lower buttocks(L)4cm x (W)7cm. R and L heels are soft but blanchable. Erosion noted at peristomal GT site. Site is erythematous and excoriated. Small amt. sanguineous exudate. Tx.Plan: Apply Moisture Barrier Paste to Sacrum, R and L Buttocks. Cover each area with Optifoam drsg. Change every 3 days and prn. Apply Moisture Barrier Paste to R and L Ischial tuberosities with each incontinence care. Apply Cavilon Skin Barrier to both heels. Cover each heel and malleoli with Optifoam drsg. Change every 7 days and prn. Reposition at least every 2hours or as tolerated. Off-load heels with pillow. APM/DARIN Mattress overlay. Apply Zinc Oxide Paste TID to GT site. Leave open to Air. (8) Dementia (9) CVA (cerebral vascular accident) (10) T2DM (type 2 diabetes mellitus) (11) Gastrostomy present (12) COVID-19 (13) Rapid atrial fibrillation Paul Garcia Jun 17, 2020 10:30
--- NOTE | 2020-06-17 10:39 | General Progress Note ---
Subjective ROS Limited/Unobtainable: No Allergies: Coded Allergies: DIVALPROEX SODIUM (Verified Allergy, Unknown, 05/14/20) PENICILLINS (Verified Allergy, Unknown, 05/14/20) Objective Last 24 Hour Vital Signs Date Time Temp Pulse Resp B/P (MAP) Pulse Ox O2 Delivery O2 Flow Rate FiO2 06/17/20 08:00 40 06/17/20 08:00 71 06/17/20 08:00 98.1 54 15 100/62 (75) 100 06/17/20 08:00 Mechanical Ventilator 06/17/20 07:25 55 12 40 06/17/20 04:00 40 06/17/20 04:00 98.8 59 15 100/62 (75) 100 06/17/20 04:00 Mechanical Ventilator 06/17/20 04:00 60 06/17/20 03:06 51 12 40 06/17/20 00:00 63 06/17/20 00:00 40 06/17/20 00:00 98.4 56 12 96/52 (67) 100 06/17/20 00:00 Mechanical Ventilator 06/16/20 23:28 63 12 40 06/16/20 20:00 98.4 62 19 117/57 (77) 100 06/16/20 20:00 Mechanical Ventilator 06/16/20 20:00 62 06/16/20 19:02 58 12 40 06/16/20 16:00 Mechanical Ventilator 06/16/20 16:00 66 06/16/20 16:00 40 06/16/20 16:00 98.6 72 15 121/71 (88) 100 06/16/20 15:00 77 16 40 06/16/20 12:00 72 06/16/20 12:00 Mechanical Ventilator 06/16/20 12:00 99.0 74 15 124/64 (84) 100 06/16/20 12:00 40 06/16/20 11:30 74 13 40 Intake and Output 06/16/20 06/17/20 19:00 07:00 Intake Total 2120 ml 910 ml Output Total 1200 ml 1200 ml Balance 920 ml -290 ml Free Water 300 ml 250 ml IV Total 1100 ml Tube Feeding 720 ml 660 ml Output Urine Total 1200 ml 1200 ml # Bowel Movements 4 4 Laboratory Tests 06/17/20 04:00: White Blood Count 7.9, Red Blood Count 2.50L, Hemoglobin 7.9L, Hematocrit 23.3L, Mean Corpuscular Volume 93, Mean Corpuscular Hemoglobin 31.6H, Mean Corpuscular Hemoglobin Concent 34.0, Red Cell Distribution Width 15.3H, Platelet Count 240, Mean Platelet Volume 9.0, Neutrophils (%) (Auto) , Lymphocytes (%) (Auto) , Monocytes (%) (Auto) , Eosinophils (%) (Auto) , Basophils (%) (Auto) , Sodium Level 144, Potassium Level 4.6, Chloride Level 108H, Carbon Dioxide Level 33H, Anion Gap 3L, Blood Urea Nitrogen 21H, Creatinine 0.5L, Estimat Glomerular Filtration Rate > 60, Glucose Level 103, Calcium Level 8.5, Total Bilirubin 0.2, Aspartate Amino Transf (AST/SGOT) 30, Alanine Aminotransferase (ALT/SGPT) 57, Alkaline Phosphatase 80, Total Protein 5.8L, Albumin 2.0L, Globulin 3.8, Albumin/Globulin Ratio 0.5L Height (Feet): 5 Height (Inches): 5.00 Weight (Pounds): 142 General Appearance: no apparent distress EENT: normal ENT inspection Neck: supple Cardiovascular: normal rate Respiratory/Chest: decreased breath sounds Abdomen: normal bowel sounds, non tender, soft Extremities: non-tender Assessment/Plan Status: stable Assessment/Plan: 1. History of CVA. 2. Dementia. 3. Dysphagia with G-tube. 4. Cachexia. 5. Diabetes. 6. Pressure ulcers. 7. Hypothyroidism. 8. Legal blindness. 9. Currently COVID positive. s/p peg and trach GTF monitor for residuals fu labs supportive care cbc in Jhon An MD Jun 17, 2020 10:39
--- NOTE | 2020-06-17 12:00 | Pulmonology Progress Note ---
Subjective ROS Limited/Unobtainable: No Interval Events: Tracheal bleding resolved Constitutional: Reports: no symptoms HEENT: Repors: no symptoms Respiratory: Reports: no symptoms Cardiovascular: Reports: no symptoms Gastrointestinal/Abdominal: Reports: no symptoms Genitourinary: Reports: no symptoms Allergies: Coded Allergies: DIVALPROEX SODIUM (Verified Allergy, Unknown, 05/14/20) PENICILLINS (Verified Allergy, Unknown, 05/14/20) All Systems: reviewed and negative except above Objective Last 24 Hour Vital Signs Date Time Temp Pulse Resp B/P (MAP) Pulse Ox O2 Delivery O2 Flow Rate FiO2 06/17/20 10:32 40 12 40 06/17/20 08:00 40 06/17/20 08:00 71 06/17/20 08:00 98.1 54 15 100/62 (75) 100 06/17/20 08:00 Mechanical Ventilator 06/17/20 07:25 55 12 40 06/17/20 04:00 40 06/17/20 04:00 98.8 59 15 100/62 (75) 100 06/17/20 04:00 Mechanical Ventilator 06/17/20 04:00 60 06/17/20 03:06 51 12 40 06/17/20 00:00 63 06/17/20 00:00 40 06/17/20 00:00 98.4 56 12 96/52 (67) 100 06/17/20 00:00 Mechanical Ventilator 06/16/20 23:28 63 12 40 06/16/20 20:00 98.4 62 19 117/57 (77) 100 06/16/20 20:00 Mechanical Ventilator 06/16/20 20:00 62 06/16/20 19:02 58 12 40 06/16/20 16:00 Mechanical Ventilator 06/16/20 16:00 66 06/16/20 16:00 40 06/16/20 16:00 98.6 72 15 121/71 (88) 100 06/16/20 15:00 77 16 40 Intake and Output0 06/16/20 06/17/20 19:00 07:00 Intake Total 2120 ml 910 ml Output Total 1200 ml 1200 ml Balance 920 ml -290 ml Free Water 300 ml 250 ml IV Total 1100 ml Tube Feeding 720 ml 660 ml Output Urine Total 1200 ml 1200 ml # Bowel Movements 4 4 General Appearance: no acute distress HEENT: normocephalic, status post trach Respiratory: chest wall non-tender, lungs clear, other - trach in place Cardiovascular: normal peripheral pulses, normal rate, regular rhythm Abdomen: normal bowel sounds, soft, non tender, non distended, other - GT Extremities: no cyanosis, no clubbing, no edema Neurologic: unresponsiveness Laboratory Tests 06/17/20 04:00: White Blood Count 7.9, Red Blood Count 2.50L, Hemoglobin 7.9L, Hematocrit 23.3L, Mean Corpuscular Volume 93, Mean Corpuscular Hemoglobin 31.6H, Mean Corpuscular Hemoglobin Concent 34.0, Red Cell Distribution Width 15.3H, Platelet Count 240, Mean Platelet Volume 9.0, Neutrophils (%) (Auto) , Lymphocytes (%) (Auto) , Monocytes (%) (Auto) , Eosinophils (%) (Auto) , Basophils (%) (Auto) , Sodium Level 144, Potassium Level 4.6, Chloride Level 108H, Carbon Dioxide Level 33H, Anion Gap 3L, Blood Urea Nitrogen 21H, Creatinine 0.5L, Estimat Glomerular Filtration Rate > 60, Glucose Level 103, Calcium Level 8.5, Total Bilirubin 0.2, Aspartate Amino Transf (AST/SGOT) 30, Alanine Aminotransferase (ALT/SGPT) 57, Alkaline Phosphatase 80, Total Protein 5.8L, Albumin 2.0L, Globulin 3.8, Albumin/Globulin Ratio 0.5L Current Medications Medications (Trade) Dose Ordered Sig/Morgan Route PRN Reason Start Time Stop Time Status Last Admin Dose Admin Atropine Sulfate (Atropine 0.4mg/ ml) 0.4 mg Q2HR PRN IVP HR <45 05/29/20 21:30 06/28/20 19:24 05/30/20 22:39 Bisacodyl (Dulcolax) 10 mg DAILYPRN PRN RECTAL Constipation 06/13/20 17:15 09/11/20 17:14 Ceftolozane/ Tazobactam 1.5 gm/ Sodium Chloride 110 ml @ 110 mls/hr Q8H IV 06/10/20 18:00 06/18/20 23:59 06/17/20 09:04 Chlorhexidine Gluconate (Lilliam-Hex 2%) 1 applic DAILY@2000 TOPIC 06/08/20 20:00 09/06/20 19:59 06/16/20 21:00 Docusate Sodium (Colace) 100 mg TWICE A DAY GT 06/07/20 18:00 07/07/20 17:59 06/17/20 08:33 Fludrocortisone Acetate (Florinef) 0.1 mg DAILY ORAL 06/05/20 09:00 07/05/20 08:59 06/17/20 08:34 Heparin Sodium/ Sodium Chloride (Heparin 1000 units/500ml Premix) 1,000 unit ONCE PRN IV radiology procedure 06/15/20 16:00 06/17/20 15:59 Iohexol (OMNIPAQUE-300 100ml) 100 ml ONCE PRN INJ radiology procedure 06/15/20 15:45 06/17/20 15:44 Lactulose (Cephulac) 20 gm BIDPRN PRN GT constipation 06/13/20 17:00 07/13/20 16:59 06/13/20 17:44 Lidocaine HCl (Xylocaine 1% 30ml) 30 ml NOW PRN INJ Radiology Procedure 06/14/20 12:15 06/17/20 12:14 Lidocaine HCl (Xylocaine 1% 30ml) 30 ml NOW PRN INJ Radiology Procedure 06/15/20 12:30 06/18/20 12:29 Polyethylene Glycol (Miralax) 17 gm BEDTIME GT 06/07/20 21:00 07/07/20 20:59 06/16/20 21:00 Sodium Bicarbonate (Sodium Bicarbonate 4%) 1 ml NOW PRN IV Radiology Procedure 06/15/20 12:30 06/18/20 12:29 Zinc Oxide (Zinc Oxide) 1 applic TIDPRN PRN TOPIC Abdominal cramps 05/20/20 13:00 08/18/20 12:59 Assessment/Plan Assessment/Plan IMPRESSION: 1. Respiratory failure. 2. Diabetes mellitus with hyperglycemia. 3. Septic shock. 4. Chronic G-tube. 5. Decubitus. 6. History of CHF. 7. Tracheal bleeding; Hgb now 8 DISCUSSION: Continue fluids and antibiotics. Pressors prn S/p trach Will continue weaning On 40% FiO2 DVT and GI prophylaxis. Will hold Lovenox due to anemia and tracheal bleeding DC planning to sub-acute Discussed with Dr. Wade. S/p PEG Agree with IVC filter placement Richard James Omar Syed MD Jun 17, 2020 12:00
--- NOTE | 2020-06-17 12:15 | Infectious Diseases Prog Note ---
Assessment/Plan 70 yo female with PMHx of Dementia, DM, CVA ( S/P PEG), COVID 19 infection and pressure ulcers. Septic Shock-combination cardiogenic and septic; SP Gram positive bacteremia- contaminant; recurrent Right IJ changed to left IJ 06/10/20 MDR PsA bacteremia- likely from PNA -05/14 Bcx 09/12 S. haemolyticus; 05/17 Bcx Neg -05/31 Bcx / P.a -06/01 Bcx Neg -06/04 Bcx P.a MDR -06/06 BCx - NTD -06/11 SP R IJ cath removal- tip cath cx <10 S. epi (likely contaminant) UTI, sp rx UA (+); ucx 10-20k P. mirabilis (S Ceftriaxone, Cefepime) PNA, superimposed bacterial, sp rx Recent COVID19 pna- now repeat neg x2 -05/27 CXR: Previously seen left lung atelectasis has nearly completely resolved. Retrocardiac atelectasis without or with some component of consolidation. Low lung volumes with bronchovascular crowding. -05/26 CXR: Complete opacification of the left hemithorax with mediastinal shift to the left likely due to complete atelectasis of the left lung perhaps from mucous plugging. rapid COVID PCR neg -05/25 sp cx MDR PsA (I Ceftazidime, Colistin, Polymixin B); suspect colonizer SARS-COV2 neg -05/24 SARS-COV2 pCR inconclusive -05/23 CXR: Worsening aeration with increasing hazy opacification of the left lung base which may related to increased layering pleural effusion and adjacent atelectasis/consolidation. -05/19 CXR: Increasing left pleural fluid and likely basilar co nsolidation/atelectasis. Interim orogastric intubation 05/16 CXR: Retrocardiac density may represent atelectasis versus infiltrate. CXR 05/14/20 showed Retrocardiac atelectasis/infiltrate with Pulmonary venous congestion. sp cx MDR E.coli (S Cefepime, Meropenem, Zosyn) Hx of COVID 19 - Bacteria secondary infection? Asp PNA? 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 Negative for dilated bile ducts. Normal appearing liver and spleen. Trace ascites sp trach/peg 06/01 Dementia DM Hx CVA ( S/P PEG) pressure ulcers PLAN - Continue Zerbaxa #13/14 ( End date 06/18/20) - Please repeat Blood Cx 1 week after stopping abx to assure clearance of bacteremia - The lab is working on Zerbaxa and Avycaz Sensi - 06/03/20 SP Meropenem #2 - 06/02/20 SP Vancomycin #2 - 05/27 SP Meropenem #11 - 05/24 SP Decadron #11 - 05/19 SP IV Vancomcyin #6 - 05/17 SP Cefepime #4 - f/u Cultures - Monitor CBC and Temps -repeat covid neg x2 -f/u repeat cultures Thank you for consulting [facility]. Will continue to follow along with you. Discussed with RN and Pharmacy staff Subjective Allergies: Coded Allergies: DIVALPROEX SODIUM (Verified Allergy, Unknown, 05/14/20) PENICILLINS (Verified Allergy, Unknown, 05/14/20) afebrile mild leukocytosis resolved repeat Bcx NTD Objective Last 24 Hour Vital Signs Date Time Temp Pulse Resp B/P (MAP) Pulse Ox O2 Delivery O2 Flow Rate FiO2 06/17/20 10:32 40 12 40 06/17/20 08:00 40 06/17/20 08:00 71 06/17/20 08:00 98.1 54 15 100/62 (75) 100 06/17/20 08:00 Mechanical Ventilator 06/17/20 07:25 55 12 40 06/17/20 04:00 40 06/17/20 04:00 98.8 59 15 100/62 (75) 100 06/17/20 04:00 Mechanical Ventilator 06/17/20 04:00 60 06/17/20 03:06 51 12 40 06/17/20 00:00 63 06/17/20 00:00 40 06/17/20 00:00 98.4 56 12 96/52 (67) 100 06/17/20 00:00 Mechanical Ventilator 06/16/20 23:28 63 12 40 06/16/20 20:00 98.4 62 19 117/57 (77) 100 06/16/20 20:00 Mechanical Ventilator 06/16/20 20:00 62 06/16/20 19:02 58 12 40 06/16/20 16:00 Mechanical Ventilator 06/16/20 16:00 66 06/16/20 16:00 40 06/16/20 16:00 98.6 72 15 121/71 (88) 100 06/16/20 15:00 77 16 40 Height (Feet): 5 Height (Inches): 5.00 Weight (Pounds): 142 HEENT: NCAT, MMM, Pulm: Equal rise and fall B/L ABD: Soft, ND, PEG Laboratory Tests Test 06/17/20 04:00 White Blood Count 7.9 K/UL (4.8-10.8) Red Blood Count 2.50 M/UL (4.20-5.40) L Hemoglobin 7.9 G/DL (12.0-16.0) L Hematocrit 23.3 % (37.0-47.0) L Mean Corpuscular Volume 93 FL (80-99) Mean Corpuscular Hemoglobin 31.6 PG (27.0-31.0) H Mean Corpuscular Hemoglobin Concent 34.0 G/DL (32.0-36.0) Red Cell Distribution Width 15.3 % (11.6-14.8) H Platelet Count 240 K/UL (150-450) Mean Platelet Volume 9.0 FL (6.5-10.1) Neutrophils (%) (Auto) % (45.0-75.0) Lymphocytes (%) (Auto) % (20.0-45.0) Monocytes (%) (Auto) % (1.0-10.0) Eosinophils (%) (Auto) % (0.0-3.0) Basophils (%) (Auto) % (0.0-2.0) Sodium Level 144 MMOL/L (136-145) Potassium Level 4.6 MMOL/L (3.5-5.1) Chloride Level 108 MMOL/L (98-107) H Carbon Dioxide Level 33 MMOL/L (21-32) H Anion Gap 3 mmol/L (5-15) L Blood Urea Nitrogen 21 mg/dL (7-18) H Creatinine 0.5 MG/DL (0.55-1.30) L Estimat Glomerular Filtration Rate > 60 mL/min (>60) Glucose Level 103 MG/DL (74-106) Calcium Level 8.5 MG/DL (8.5-10.1) Total Bilirubin 0.2 MG/DL (0.2-1.0) Aspartate Amino Transf (AST/SGOT) 30 U/L (15-37) Alanine Aminotransferase (ALT/SGPT) 57 U/L (12-78) Alkaline Phosphatase 80 U/L (46-116) Total Protein 5.8 G/DL (6.4-8.2) L Albumin 2.0 G/DL (3.4-5.0) L Globulin 3.8 g/dL Albumin/Globulin Ratio 0.5 (1.0-2.7) L Current Medications Medications (Trade) Dose Ordered Sig/Morgan Route PRN Reason Start Time Stop Time Status Last Admin Dose Admin Atropine Sulfate (Atropine 0.4mg/ ml) 0.4 mg Q2HR PRN IVP HR <45 05/29/20 21:30 06/28/20 19:24 05/30/20 22:39 Bisacodyl (Dulcolax) 10 mg DAILYPRN PRN RECTAL Constipation 06/13/20 17:15 09/11/20 17:14 Ceftolozane/ Tazobactam 1.5 gm/ Sodium Chloride 110 ml @ 110 mls/hr Q8H IV 06/10/20 18:00 06/18/20 23:59 06/17/20 09:04 Chlorhexidine Gluconate (Lilliam-Hex 2%) 1 applic DAILY@2000 TOPIC 06/08/20 20:00 09/06/20 19:59 06/16/20 21:00 Docusate Sodium (Colace) 100 mg TWICE A DAY GT 06/07/20 18:00 07/07/20 17:59 06/17/20 08:33 Fludrocortisone Acetate (Florinef) 0.1 mg DAILY ORAL 06/05/20 09:00 07/05/20 08:59 06/17/20 08:34 Heparin Sodium/ Sodium Chloride (Heparin 1000 units/500ml Premix) 1,000 unit ONCE PRN IV radiology procedure 06/15/20 16:00 06/17/20 15:59 Iohexol (OMNIPAQUE-300 100ml) 100 ml ONCE PRN INJ radiology procedure 06/15/20 15:45 06/17/20 15:44 Lactulose (Cephulac) 20 gm BIDPRN PRN GT constipation 06/13/20 17:00 07/13/20 16:59 06/13/20 17:44 Lidocaine HCl (Xylocaine 1% 30ml) 30 ml NOW PRN INJ Radiology Procedure 06/14/20 12:15 06/17/20 12:14 Lidocaine HCl (Xylocaine 1% 30ml) 30 ml NOW PRN INJ Radiology Procedure 06/15/20 12:30 06/18/20 12:29 Polyethylene Glycol (Miralax) 17 gm BEDTIME GT 06/07/20 21:00 07/07/20 20:59 06/16/20 21:00 Sodium Bicarbonate (Sodium Bicarbonate 4%) 1 ml NOW PRN IV Radiology Procedure 06/15/20 12:30 06/18/20 12:29 Zinc Oxide (Zinc Oxide) 1 applic TIDPRN PRN TOPIC Abdominal cramps 05/20/20 13:00 08/18/20 12:59 Yomaira Terry M.D. Jun 17, 2020 12:15
--- NOTE | 2020-06-17 14:05 | NUR ---
DISCHARGE PLANNING: NOTE CALL PLACED TO EMERITA PADILLA S/W [facility] REGARDING ACCE[PTANCE SHE IS WILLING TO ACCEPT THIS PT. CM MADE HER AWARE THAT ZERBAXA END DATE 06/18. [facility] REQUESTED UPDATED CLINICALS. CLINICALS WERE FAXED.
--- NOTE | 2020-06-17 14:41 | General Progress Note ---
Subjective Date patient seen: Jun 17, 2020 Time patient seen: 14:00 ROS Limited/Unobtainable: Yes Allergies: Coded Allergies: DIVALPROEX SODIUM (Verified Allergy, Unknown, 05/14/20) PENICILLINS (Verified Allergy, Unknown, 05/14/20) Subjective LEFT IJ PLACED 06/[address] Non verbal Objective Last 24 Hour Vital Signs Date Time Temp Pulse Resp B/P (MAP) Pulse Ox O2 Delivery O2 Flow Rate FiO2 06/17/20 12:00 98.8 57 15 107/62 (77) 100 06/17/20 12:00 40 06/17/20 12:00 Mechanical Ventilator 06/17/20 12:00 57 06/17/20 10:32 40 12 40 06/17/20 08:00 40 06/17/20 08:00 71 06/17/20 08:00 98.1 54 15 100/62 (75) 100 06/17/20 08:00 Mechanical Ventilator 06/17/20 07:25 55 12 40 06/17/20 04:00 40 06/17/20 04:00 98.8 59 15 100/62 (75) 100 06/17/20 04:00 Mechanical Ventilator 06/17/20 04:00 60 06/17/20 03:06 51 12 40 06/17/20 00:00 63 06/17/20 00:00 40 06/17/20 00:00 98.4 56 12 96/52 (67) 100 06/17/20 00:00 Mechanical Ventilator 06/16/20 23:28 63 12 40 06/16/20 20:00 98.4 62 19 117/57 (77) 100 06/16/20 20:00 Mechanical Ventilator 06/16/20 20:00 62 06/16/20 19:02 58 12 40 06/16/20 16:00 Mechanical Ventilator 06/16/20 16:00 66 06/16/20 16:00 40 06/16/20 16:00 98.6 72 15 121/71 (88) 100 06/16/20 15:00 77 16 40 Intake and Output 06/16/20 06/17/20 19:00 07:00 Intake Total 2120 ml 910 ml Output Total 1200 ml 1200 ml Balance 920 ml -290 ml Free Water 300 ml 250 ml IV Total 1100 ml Tube Feeding 720 ml 660 ml Output Urine Total 1200 ml 1200 ml # Bowel Movements 4 4 Laboratory Tests 06/17/20 04:00: White Blood Count 7.9, Red Blood Count 2.50L, Hemoglobin 7.9L, Hematocrit 23.3L, Mean Corpuscular Volume 93, Mean Corpuscular Hemoglobin 31.6H, Mean Corpuscular Hemoglobin Concent 34.0, Red Cell Distribution Width 15.3H, Platelet Count 240, Mean Platelet Volume 9.0, Neutrophils (%) (Auto) , Lymphocytes (%) (Auto) , Monocytes (%) (Auto) , Eosinophils (%) (Auto) , Basophils (%) (Auto) , Sodium Level 144, Potassium Level 4.6, Chloride Level 108H, Carbon Dioxide Level 33H, Anion Gap 3L, Blood Urea Nitrogen 21H, Creatinine 0.5L, Estimat Glomerular Filtration Rate > 60, Glucose Level 103, Calcium Level 8.5, Total Bilirubin 0.2, Aspartate Amino Transf (AST/SGOT) 30, Alanine Aminotransferase (ALT/SGPT) 57, Alkaline Phosphatase 80, Total Protein 5.8L, Albumin 2.0L, Globulin 3.8, Albumin/Globulin Ratio 0.5L Height (Feet): 5 Height (Inches): 5.00 Weight (Pounds): 142 General Appearance: WD/WN EENT: PERRL/EOMI Neck: non-tender Cardiovascular: normal rate Respiratory/Chest: decreased breath sounds Abdomen: normal bowel sounds 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 # Sepsis with element of cardiogenic shock Etiology COVID 19 vs UTI vs bacteremia / contaminant and NSTEMI Gram positive bacteremia- contaminant; recurrent -05/14 Bcx 09/12 S. haemolyticus; 05/17 Bcx Neg -05/31 Bcx 09/10 P.a -06/01 Bcx Neg -06/04 Bcx GNR Pseudomona with S to Colistin and Polymixin, I to Ceftazidime -06/06 BCx - no growth CATH TIP cx 06/11 Gram + cocci STAPH EPIDERMIDIS ( SENS TO TETRACYCLINE AND VACOMYNCIN ) Sputum Cx 05/25 with Pseudomonas. Colonizer and recent completion of 14 day lukasz atment with Meropenem U cx 05/14 Proteus Mirabillis Meropenem 14 days completed Vancomycin stopped stopped Cefepime Dexamethasone 10 day course completed Leukocytosis improved. 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 BPM DEVELOPER UPDATED. 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 NEW LEFT IJ PLACED 06/10. 2 Physician consent signed with Dr. Romeo from ID. Conservator was updated by RN and no response obtained. # Acute respiratory failure Intubated. Self extubated 05/27 and re intubated by ED MD successfully. ICU care appreciated Dr. Rock following Ventilator management per ICU-pulmonary FiO2 40 % today. T piece. Medically tracheostomy was needed and life saving procedure as she did not tolerate wean off from the ventilator. Overall, her quality of life will not improve from prior baseline with advanced dementia. Will need permanent ventilator support via tracheostomy and subacute level of care. Critical care attending, Surgery and GI attendings notified to plan PEG and TRACH as medically indicated and completed 06/02/20 # SVT vs A. Flutter s/p DC x 3 # NSTEMI HR is controlled in the 100 range and tolerating Digoxin Vasopressors in place Levophed at [address] Morillo requested and TTE requested and poor window. Troponin 3.4 now 0.7 EKG 05/17 NSR, stable. Inferior wall ischemia # AG metabolic acidosis Ddx lactic acidosis Improved. # Hyperglycemia r/o DKA ABG and Ketones negative Endocrine consult with Dr. Shelley IV insulin gtt stopped and in SQ insulin coverage now # Hypernatremia resolved Improving Monitor BMP change IVF rate and start free water flush per PEG - Monitor and try to HL IVF # COVID 19 Positive on admission, now NEGATIVE as of 05/25/20 On Dexamethasone completed 10 day course Contact and droplet isolation # Dysphagia PEG REMOVED 05/16 Carlo Vargas consulted NGT placed and Tube feeds started 05/18 and being tolerated at 45 cc hr Glucerna 1.2 # Severe protein caloric malnutrition with Albumin 1.5 RD follow up # Thrombocytopenia Platelets down from 80 K to 64 K to 66 K ( OFF Heparin ) and improved to normal range. 05/17 dc heparin, use SCD, order US Liver, HIT Ab, HIV negative Monitor carefully as Lovenox was restarted 06/03 for DVT # Newly detected lower extremity DVT Lovenox at 1 mg Kg SQ q 12 hr started 06/03 PM on HOLD 06/14 due to minor tracheostomy site bleed. Per surgery not concerning or active bleeding. IVCF might be needed and considering risk of anticoagulation vs benefit. Discussing with Dr. Rock and Dr. Garcia. # Hypokalemia # Hypophosphatemia Replace as needed # Anemia Etiology likely secondary to multiple blood draws vs RAULITO vs less likely GIB FOBT pending. iron studies SHOW IRON DEFICIENCY. ordered IV iron x 1 only Trend Hb and PRN PRBC if Hb less than 8, 1 unit 06/06 Hb is drifting down again and 1 UNIT PRBC TODAY IN PREPARATION FOR DISCHARGE FROM THE HOSPITAL. # Dementia Baseline #DISPOSITION SNF [facility] ( UPDATED ADMISSION COORDINATOR AND WAITING RESPONSE ) DC PLAN LATE SATURDAY OR SATURDAY AFTER ANTIBIOTIC DOSE IS GIVEN # FULL CODE SW follow up to reach out to DPOA and consider change in code status due to high morbidity and risk of inpatient mortality. Paperwork completed for superior court of the [facility] for request of tracheostomy and gastrostomy placement due to medical need on 05/26/20 Bioethic consult requested and spoke with Dr. Hung from ethics and I agree with his assessment that the patient quality of life will NOT IMPROVE with tracheostomy and replacement of PEG. The patient is very limited due to her underlying dementia and now unable to wean off the ventilator. SHE HAD THE NEED TO GET A TRACHEOSTOMY and PEG was replaced 06/01/[address] Garcia DUE TO MEDICAL NECESSITY AND LIFE SAVING PROCEDURES. DR. ROCK AND I AGREED AND SIGNED [address] MD [address] FORM. PENDING [address] DECISION REGARDING CODE STATUS. DNR IS MEDICALLY INDICATED. CURRENTLY FULL CODE BY PRIOR CONSERVATOR DECISION. > 50 min spent in coordination of care and consultation with physicians and RN. Jessica Wade MD Jun 17, 2020 14:41
--- NOTE | 2020-06-17 15:00 | NUR ---
NURSE NOTES: Dr. Morillo at nurse station, made aware that patient's heart rate noted going as low as [address] Morillo acknowledged and informed this nurse they are aware. Noted. Will continue to monitor patient.
[2020-06-17] MEDS ORDERED: Heparin1,000 units/500ml Premix(Conc:2 units/ml) INJ PRN (15:07)
[2020-06-17] MEDS ORDERED: Omnipaque-300 100ml vial INJ PRN (15:08)
--- NOTE | 2020-06-17 16:01 | NUR ---
vs 1547 before procedure HR-51 R-21 BP-130/71 100% TRACH VENT 1552(INTRA PROCEDURE) HR-53 R-22 BP-139/73 100% TRACH VENT 1556 (POST-PROCEDURE) HR-53 R-20 BP-140/68 100% TRACH VENT STARTED 1540 TIME OUT 1542 ENDED [id number] TOTAL TIME 16 MINUTES NO ACUTE DISTRESS NOTED AT THIS TIME.
--- NOTE | 2020-06-17 16:10 | Brief Operative Note ---
Immediate Post Operative Note Operative Note Pre-op Diagnosis: DVT Procedure: IVC filter Post-op Diagnosis: same as pre-op Surgeon: Quan Lozano Anesthesia: local Specimen: none Complications: none Fluids: none Implant(s) used?: Yes - Cook Celect IVC filter Neeraj Lozano MD Jun 17, 2020 16:10
--- NOTE | 2020-06-17 16:30 | NUR ---
NURSE NOTES: Patient returned to unit after IVC filter insertion. Accompanied by RN. VS 140/75 HR 57, Temp 98.2 F axillary. Will continue to monitor patient.
--- NOTE | 2020-06-17 16:57 | Cardiac Electrophysiology PN ---
Assessment/Plan Assessment/Plan 1. Eyn-VF-frhohkgfj myocardial infarction with peak troponin of 3.4 EKG shows Inferolateral ischemia Due to septic shock, DCCV and Renal failure. Echo had poor windows. 2. PAF with RVR. S/P DCCV 3 times No more fib or accelerated junctional rhythm. Off any AVN ramakrishna for bradycardia 3. S/P Septic shock. On antibiotic. Off Midodrine in view of bradycardia On Florinef 0.1 daily 4. Bradycardia requiring Atropine x 3 on 05/30/20. Off Dopamine and Midodrine 5. Severe hypernatremia with sodium of 174, BUN of 131, creatinine 2.7 due to dehydration. Improved. Cr 0.5 6. Dysphagia, status post PEG replacement per Dr Matos 7. History of CVA and dementia. 8. Respiratory failure, S/P Tracheostomy by Dr. Garcia 06/01/20 9. DVT. IVC filter pending today DW RN Subjective Subjective In SDU in SR with no atrial fib. Charles in 50s S/P bradycardia and received atropine 3 times on 05/31/20 S/P Trach and PEG on 06/02/20. ECG 06/02/20 showed inferolateral ischemia On 40% Fio2 and Peep 5. IVC filter pending today Objective Last 24 Hour Vital Signs Date Time Temp Pulse Resp B/P (MAP) Pulse Ox O2 Delivery O2 Flow Rate FiO2 06/17/20 15:43 51 17 06/17/20 15:23 100 18 06/17/20 12:00 98.8 57 15 107/62 (77) 100 06/17/20 12:00 40 06/17/20 12:00 Mechanical Ventilator 06/17/20 12:00 57 06/17/20 10:32 40 12 40 06/17/20 08:00 40 06/17/20 08:00 71 06/17/20 08:00 98.1 54 15 100/62 (75) 100 06/17/20 08:00 Mechanical Ventilator 06/17/20 07:25 55 12 40 06/17/20 04:00 40 06/17/20 04:00 98.8 59 15 100/62 (75) 100 06/17/20 04:00 Mechanical Ventilator 06/17/20 04:00 60 06/17/20 03:06 51 12 40 10/9/20 00:00 63 06/17/20 00:00 40 06/17/20 00:00 98.4 56 12 96/52 (67) 100 06/17/20 00:00 Mechanical Ventilator 06/16/20 23:28 63 12 40 06/16/20 20:00 98.4 62 19 117/57 (77) 100 06/16/20 20:00 Mechanical Ventilator 06/16/20 20:00 62 06/16/20 19:02 58 12 40 Intake and Output 06/16/20 06/17/20 18:59 06:59 Intake Total 2120 ml 970 ml Output Total 1200 ml 1200 ml Balance 920 ml -230 ml Free Water 300 ml 250 ml IV Total 1100 ml Tube Feeding 720 ml 720 ml Output Urine Total 1200 ml 1200 ml # Bowel Movements 4 4 Laboratory Tests Test 06/17/20 04:00 White Blood Count 7.9 K/UL (4.8-10.8) Red Blood Count 2.50 M/UL (4.20-5.40) L Hemoglobin 7.9 G/DL (12.0-16.0) L Hematocrit 23.3 % (37.0-47.0) L Mean Corpuscular Volume 93 FL (80-99) Mean Corpuscular Hemoglobin 31.6 PG (27.0-31.0) H Mean Corpuscular Hemoglobin Concent 34.0 G/DL (32.0-36.0) Red Cell Distribution Width 15.3 % (11.6-14.8) H Platelet Count 240 K/UL (150-450) Mean Platelet Volume 9.0 FL (6.5-10.1) Neutrophils (%) (Auto) % (45.0-75.0) Lymphocytes (%) (Auto) % (20.0-45.0) Monocytes (%) (Auto) % (1.0-10.0) Eosinophils (%) (Auto) % (0.0-3.0) Basophils (%) (Auto) % (0.0-2.0) Sodium Level 144 MMOL/L (136-145) Potassium Level 4.6 MMOL/L (3.5-5.1) Chloride Level 108 MMOL/L (98-107) H Carbon Dioxide Level 33 MMOL/L (21-32) H Anion Gap 3 mmol/L (5-15) L Blood Urea Nitrogen 21 mg/dL (7-18) H Creatinine 0.5 MG/DL (0.55-1.30) L Estimat Glomerular Filtration Rate > 60 mL/min (>60) Glucose Level 103 MG/DL (74-106) Calcium Level 8.5 MG/DL (8.5-10.1) Total Bilirubin 0.2 MG/DL (0.2-1.0) Aspartate Amino Transf (AST/SGOT) 30 U/L (15-37) Alanine Aminotransferase (ALT/SGPT) 57 U/L (12-78) Alkaline Phosphatase 80 U/L (46-116) Total Protein 5.8 G/DL (6.4-8.2) L Albumin 2.0 G/DL (3.4-5.0) L Globulin 3.8 g/dL Albumin/Globulin Ratio 0.5 (1.0-2.7) L Objective HEAD AND NECK: No JVD. Tracheostomy in place. Left IJ line in place LUNGS: Coarse rhonchi. CARDIOVASCULAR: Regular S1 and S2 with no gallop. ABDOMEN: Soft. G-tube site in place EXTREMITIES: No pitting edema. Norman Morillo MD Jun 17, 2020 16:57
--- NOTE | 2020-06-17 17:11 | Diagnostic Imaging Report ---
Indications: Deep venous thrombosis, contraindication to anticoagulation Technique: Informed consent obtained prior to commencement of the procedure. . Total sterile technique, including sterile probe cover and sterile gel, sterile gloves, hand hygiene, hat, mask,, sterile gown, large sterile drape, and preparation with 2% chlorhexidine utilized. Local anesthesia with 1% lidocaine. Ultrasound reveals patent compressible right internal jugular vein. Under real-time ultrasound guidance, puncture right internal jugular vein, passage of a guidewire, into the inferior vena cava, , over which was passed a 10 Polish dilator and then the introducer assembly for the Cook Celect inferior vena cava filter. An inferior venacavogram performed, using machine injection of contrast. The images were reviewed. The position of the renal veins was determined. The catheter was then exchanged for the introducer assembly of the Cook Celect filter. The introducer assembly was advanced further into the inferior vena cava over a guidewire, and the guidewire and dilator were removed. The filter was passed into the into the sheath. It was then positioned into the appropriate position. The filter was then deployed by unsheathing it. The filter introducer was removed, and a followup inferior venacavogram was performed using hand injection of contrast through the sheath. The filter position was deemed acceptable. The sheath was removed. Pressure held on the right neck until hemostasis was achieved. The patient tolerated procedure well, without immediate complication. Total fluoroscopy time 126 seconds Total dose area product 0.96026 Gym2 Comparison: none. Findings: Inferior venacavogram demonstrates normal caliber inferior vena cava. Single renal veins. No intracaval thrombus. Completion inferior venacavogram demonstrates satisfactory filter position, with no significant tilt. Impression: Successful placement of Cook Celect infrarenal inferior vena cava filter, as above.
--- NOTE | 2020-06-17 17:53 | NUR ---
RADIOLOGY NOTE: IVC FILTER PLACED BY DR. DREA ROBERTS AT 1500 HRS. FA
--- NOTE | 2020-06-17 19:25 | NUR ---
NURSE NOTES: Received report from Roel. Bruno, RN, pt. in bed awake with eyes open- non-verbal, no signs or symptoms of acute cardiac or respiratory distress noted, bed alarm not on as bed is not working, side rails up x's3 and safety brakes engaged, aspiration precautions observed- HOB elevated, skin precautions observed, pt. appears to be tolerating current vent settings well- AC12, TV 500, Fio2 at 40% and peep 5- no distress noted, pt. has G tube feeding Glucerna 1.2 at 60cc/hr- no residual noted, Arauz intact and patent- draining to gravity, endorsement- bed not working - left message for EVS- spoke with Johanna to bring up a bed for patient, left IJ TLC- TKO- intact and patent, safety measures continued, will continue with plan of care.
--- NOTE | 2020-06-17 19:30 | NUR ---
NURSE HAND-OFF REPORT: Important Events on Shift: Patient Status: Stable Diet: Glucerna 1.2 60 ml/hr Pending Orders: None Pending Results/Labs:None Pending MD notification:None Latest Vital Signs: Temperature 98.2 , Pulse 52 , B/P 140 /75 , Respiratory Rate 14 , O2 SAT 100 , Mechanical Ventilator, O2 Flow Rate 35.0 . Vital Sign Comment: Stable EKG Rhythm: Sinus Bradycardia Rhythm change?: N MD Notified?: Marcella Morillo MD Response: No New Orders Received Latest Garza Fall Score: 70 Fall Risk: High Risk Safety Measures: Call light Within Reach, Bed Alarm Zone 1, Side Rails Side Rails x3, Bed position Low and Locked. Fall Precautions: Yellow Socks Yellow Gown Door Sign Patient Fall Education Report given to SARA Baird.
[2020-06-17] MEDS: Miralax 17gm pkt GT SCH (20:44)
[2020-06-17] MEDS: Dyna-Hex 2% Top Sol 2oz TOPIC SCH (20:44)
[2020-06-18] VITALS: BP 108/73
[2020-06-18] MEDS: NS IV SCH ×2 (01:09→09:41)
[2020-06-18] MEDS: CEFTOLOZANE IV SCH ×2 (01:09→09:41)
[2020-06-18] MEDS: TAZOBACTAM IV SCH ×2 (01:09→09:41)
[2020-06-18 04:00] VITALS: BP 99/45
[2020-06-18 04:44] LABS: BASOPHILS % (AUTO) 1.8 % (0.0-2.0); EOSINOPHILS % (AUTO) 0.6 % (0.0-3.0); HEMOGLOBIN 10.1 G/DL (12.0-16.0); LYMPHOCYTES % (AUTO) 12.6 % (20.0-45.0); MEAN CORPUSCULAR VOLUME 90 FL (80-99); MONOCYTES % (AUTO) 9.3 % (1.0-10.0); NEUTROPHILS % (AUTO) 75.7 % (45.0-75.0); PLATELET COUNT 243 K/UL (150-450); RED BLOOD COUNT 3.22 M/UL (4.20-5.40); RED CELL DISTRIBUTION WIDTH 14.5 % (11.6-14.8); WHITE BLOOD COUNT 8.5 K/UL (4.8-10.8)
[2020-06-18 04:54] LABS: ALANINE AMINOTRANSFERASE 51 U/L (12-78); ALBUMIN 2.2 G/DL (3.4-5.0); ALBUMIN/GLOBULIN RATIO 0.6 (1.0-2.7); ALKALINE PHOSPHATASE 79 U/L (46-116); ANION GAP 7 mmol/L (5-15); ASPARTATE AMINO TRANSFERASE 29 U/L (15-37); BILIRUBIN,TOTAL 0.5 MG/DL (0.2-1.0); BLOOD UREA NITROGEN 21 mg/dL (7-18); CALCIUM 9.8 MG/DL (8.5-10.1); CARBON DIOXIDE 31 MMOL/L (21-32); CHLORIDE 106 MMOL/L (98-107); CREATININE 0.5 MG/DL (0.55-1.30); POTASSIUM 3.6 MMOL/L (3.5-5.1); SODIUM 143 MMOL/L (136-145)
--- NOTE | 2020-06-18 07:20 | NUR ---
NURSE HAND-OFF REPORT: Important Events on Shift:none Patient Status: fair Diet: Glucerna 1.2 Pending Orders: Pending Results/Labs: Pending MD notification: Latest Vital Signs: Temperature 98.5 , Pulse 57 , B/P 99 /45 , Respiratory Rate 14 , O2 SAT 100 , Mechanical Ventilator, O2 Flow Rate 35.0 . Vital Sign Comment: EKG Rhythm: Sinus Bradycardia Rhythm change?: N MD Notified?: MD Response: Latest Garza Fall Score: 70 Fall Risk: High Risk Safety Measures: Call light Within Reach, Bed Alarm Zone 1, Side Rails Side Rails x3, Bed position Low and Locked. Fall Precautions: Yellow Socks Yellow Gown Door Sign Patient Fall Education Report given to Tiffanie Ernandez - pt. remains stable and no signs of distress noted- aware to f/u on any abnormal am labs.
[2020-06-18 08:00] VITALS: BP 115/65
--- NOTE | 2020-06-18 08:00 | NUR ---
NURSE NOTES: Pt awake/not alert, responds to physical stim by withdrawal, mechanically ventilated with no signs of pain. Vital signs stable with SR @ 72 on monitor. IV access left IJ triple lumen with NS running at TKO, other lumen flushed with 10 ml NS and locked. G-tube feeding Glu 1.2 running at 60 ml/hr, 0 residual, flushed with 100 ml free water. Arauz cath in place, patent and draining clear yellow urine into collection bag at foot of bed. P200 mattress overlay on bed and running. Bed left in low position, side rails up x 3 and call light left near pt's hand.
[2020-06-18] MEDS: Docusate 100mg/10ml Liq GT SCH (09:26)
[2020-06-18] MEDS ORDERED: COLACE100 MG/10 GT (10:38)
[2020-06-18] MEDS ORDERED: MIRALAX119 GM GT (10:38)
[2020-06-18] MEDS ORDERED: DULCOLAX10 MG RECTAL (10:38)
[2020-06-18] MEDS ORDERED: HIBICLENS118 ML TOPIC (10:38)
[2020-06-18] MEDS ORDERED: LACTULOSE20 GM/301 GT (10:38)
[2020-06-18] MEDS ORDERED: FLORINEF0.1 MG ORAL (10:38)
--- NOTE | 2020-06-18 10:47 | Discharge Instructions ---
Discharge Instructions Discharge Instructions Services at Discharge: oxygen therapy - tracheostomy - Vicky 8 - AC 12 TV 500 cc FiO2 40 % PEEP 5 Diet: NPO, tube feeding - Glucerna 1.2 at 60 cc Hr / Free Water 200 cc q 6 hr flush per PEG Resume Normal Activity?: No Activity: as tolerated Special Instructions call Dr. Dougherty for pulmonary care at [facility] subacute. For Congestive Heart Failure Reminder Report to your physician any weight gain of 5 pounds or more in one week. Jessica Wade MD Jun 18, 2020 10:47
--- NOTE | 2020-06-18 10:53 | Discharge Summary ---
Discharge Summary Hospital Course Date of Admission May 14, 2020 at 19:55 Date of Discharge 06/18/2020 Admitting Diagnosis rapid Atrial fibrillation, hypoxia HPI Sheela Brandon is a 70 year old female who was admitted on May 14, 2020 at 19:55 for Rapid Atrial Fibrillation and hypoxemia Consultations cardiology icu pulmonary infectious disease surgery Procedures tracheostomy PEG IVCF placement Hospital Course 70-year-old female history of advanced dementia, cachexia, dysphasia G-tube dependent feeding presents for evaluation of rapid heart rate and hypotension from COVID positive SNF. # Sepsis with element of cardiogenic shock Etiology COVID 19 vs UTI vs bacteremia / contaminant and NSTEMI Gram positive bacteremia- contaminant; recurrent -05/14 Bcx / S. haemolyticus; 05/17 Bcx Neg -05/31 Bcx 09/10 P.a -06/01 Bcx Neg -06/04 Bcx GNR Pseudomona with S to Colistin and Polymixin, I to Ceftazidime -06/06 BCx - no growth CATH TIP cx 06/11 Gram + cocci STAPH EPIDERMIDIS ( SENS TO TETRACYCLINE AND VACOMYNCIN ) Sputum Cx 05/25 with Pseudomonas. Colonizer and recent completion of 14 day treatment with Meropenem U cx 05/14 Proteus Mirabillis Meropenem 14 days completed Vancomycin stopped stopped Cefepime Dexamethasone 10 day course completed Leukocytosis improved. Monitor clinically for now and OFF antibiotics per ID COVID NEGATIVE x 2 05/25 and 05/26 ID Resident Intern - [facility] DAY 14 for MDR PsA bacteremia,completed today, 06/18/20 NEED follow up blood culture on 06/25/20 - Removed R IJ line and tip culture 06/11 - AWAIT ID OIL LEASE OPERATOR INPUT REGARDING NEED FOR FURTHER ANTIBIOTIC. NEW LEFT IJ PLACED 06/10. # Acute respiratory failure Intubated. Self extubated 05/27 and re intubated by ED MD successfully. ICU care appreciated Dr. Rock following Ventilator management per ICU-pulmonary FiO2 40 % today. T piece. Medically tracheostomy was needed and life saving procedure as she did not tolerate wean off from the ventilator. Overall, her quality of life will not improve from prior baseline with advanced dementia. Will need permanent ventilator support via tracheostomy and subacute level of care. Critical care attending, Surgery and GI attendings notified to plan PEG and TRACH as medically indicated and completed 06/02/20 # SVT vs A. Flutter s/p DC x 3 # NSTEMI HR is controlled in the 100 range and tolerating Digoxin Vasopressors in place Levophed at [address] Morillo requested and TTE requested and poor window. Troponin 3.4 now 0.7 EKG 05/17 NSR, stable. Inferior wall ischemia # AG metabolic acidosis Ddx lactic acidosis Improved. # Hyperglycemia r/o DKA ABG and Ketones negative Endocrine consult with Dr. Shelley IV insulin gtt stopped and in SQ insulin coverage now # Hypernatremia resolved Improving Monitor BMP change IVF rate and start free water flush per PEG - Monitor and try to HL IVF # COVID 19 Positive on admission, now NEGATIVE as of 05/25/20 On Dexamethasone completed 10 day course Contact and droplet isolation # Dysphagia PEG REMOVED 05/16 Carlo Vargas consulted NGT placed and Tube feeds started 05/18 and being tolerated at 45 cc hr Glucerna 1.2 # Severe protein caloric malnutrition with Albumin 1.5 RD follow up # Thrombocytopenia Platelets down from 80 K to 64 K to 66 K ( OFF Heparin ) and improved to normal range. 05/17 dc heparin, and now OFF anticoagulation due to the risk for bleeding higher than benefit. # Newly detected lower extremity DVT Lovenox at 1 mg Kg SQ q 12 hr started 25 PM on HOLD 06/14 due to minor tracheostomy site bleed. IVCF placement was done 06/17/20 and she tolerated the procedure well. Due to the higher risk of bleeding she is no longer on anticoagulation. # Hypokalemia # Hypophosphatemia Replace as needed # Anemia Etiology likely secondary to multiple blood draws vs RAULITO vs less likely GIB FOBT pending. iron studies SHOW IRON DEFICIENCY. ordered IV iron x 1 only Trend Hb and PRN PRBC if Hb less than 8, 1 unit 06/06 Hb is drifting down again and 1 UNIT PRBC 06/17 and Hb is compensated and appropriate in the 10 range today. # Dementia Baseline #DISPOSITION SNF subacute - [facility] # FULL CODE SW follow up to reach out to DPOA and consider change in code status due to high morbidity and risk of inpatient mortality. Paperwork completed for superior court of the [facility] for request of tracheostomy and gastrostomy placement due to medical need on 05/26/20 Bioethic consult requested and spoke with Dr. Hung from ethics and I agree with his assessment that the patient quality of life will NOT IMPROVE with tracheostomy and replacement of PEG. The patient is very limited due to her underlying dementia and now unable to wean off the ventilator. SHE HAD THE NEED TO GET A TRACHEOSTOMY and PEG was replaced 06/01/[address] Garcia DUE TO MEDICAL NECESSITY AND LIFE SAVING PROCEDURES. DR. ROCK AND I AGREED AND SIGNED 2 MD CONSENT FORM. PENDING COURT DECISION REGARDING CODE STATUS. DNR IS MEDICALLY INDICATED. CURRENTLY FULL CODE BY PRIOR CONSERVATOR DECISION. Recommend clinical social work aide follow up at SNF for court decision. > 65 min spent in coordination of care and consultation with physicians and RN, CM and SNF admission coordinator. Discharge Discharge Vital Signs Last Vital Signs Date Time Temp Pulse Resp B/P (MAP) Pulse Ox O2 Delivery O2 Flow Rate FiO2 06/18/20 08:20 Mechanical Ventilator 06/18/20 08:00 71 06/18/20 08:00 98.1 12 115/65 (82) 99 06/18/20 08:00 40 06/15/20 16:00 35.0 Discharge Disposition Patient was discharged to Discharge Diagnoses: (1) DVT (deep venous thrombosis) (2) COVID-19 (3) Pressure ulcer (4) Dementia (5) CVA (cerebral vascular accident) (6) T2DM (type 2 diabetes mellitus) (7) Gastrostomy present (8) Hypernatremia (9) Respiratory failure (10) Sepsis (11) Rapid atrial fibrillation Discharge Instructions Discharge Instructions Services Upon Discharge: oxygen therapy - tracheostomy - Vicky 8 - AC 12 TV 500 cc FiO2 40 % PEEP 5 Activity: as tolerated Jessica Wade MD Jun 18, 2020 10:53
[2020-06-18 12:00] VITALS: BP 133/70
--- NOTE | 2020-06-18 12:10 | NUR ---
DISCHARGE PLANNING S/W SHAYLA AT [facility] AND SHE PROVIDED ROOM ASSIGNMEN ROOM 20 SKILLED AMBULANCE TRANSPORTATION WITH RT SCHEDULED WITH [facility] EXT [phone] WITH ETA @ 1047 PER FACILITY REQUEST. P/U CONFIRMED WITH LISA AT [facility].
[2020-06-18] MEDS ORDERED: Tubing IV Secondary IV ONE ×2 (12:12→17:29)
[2020-06-18] MEDS ORDERED: NS 275ml ONE (12:12)
[2020-06-18] MEDS ORDERED: Tubing IV Blood Pump IV ONE (12:12)
--- NOTE | 2020-06-18 12:59 | Surgery Progress Note ---
Surgery Progress Note Subjective Procedure Performed trach egd with peg Additional Comments no acute events Objective Last 24 Hour Vital Signs Date Time Temp Pulse Resp B/P (MAP) Pulse Ox O2 Delivery O2 Flow Rate FiO2 06/18/20 12:01 40 06/18/20 12:00 98.8 62 18 133/70 (91) 97 06/18/20 12:00 61 06/18/20 11:59 Mechanical Ventilator 06/18/20 11:15 67 20 40 06/18/20 08:20 Mechanical Ventilator 06/18/20 08:00 71 06/18/20 08:00 98.1 69 12 115/65 (82) 99 06/18/20 08:00 40 06/18/20 07:18 71 16 40 06/18/20 04:00 Mechanical Ventilator 06/18/20 04:00 98.5 57 14 99/45 (63) 100 06/18/20 04:00 40 06/18/20 03:54 64 06/18/20 02:33 55 12 40 06/18/20 00:00 40 06/18/20 00:00 Mechanical Ventilator 06/18/20 00:00 98.2 54 15 108/73 (85) 100 06/17/20 23:57 57 06/17/20 22:36 56 14 40 06/17/20 20:00 98.7 52 15 141/70 (93) 100 06/17/20 20:00 Mechanical Ventilator 06/17/20 20:00 40 06/17/20 19:35 55 06/17/20 19:00 52 14 40 06/17/20 16:46 58 13 40 06/17/20 16:00 98.2 56 15 140/75 (96) 100 06/17/20 16:00 40 06/17/20 16:00 Mechanical Ventilator 06/17/20 15:43 51 17 06/17/20 15:23 100 18 I&O Intake and Output 06/17/20 06/18/20 19:00 07:00 Intake Total 420 ml 1230 ml Output Total 975 ml Balance 420 ml 255 ml Free Water 400 ml IV Total 110 ml Tube Feeding 420 ml 720 ml Output Urine Total 975 ml # Bowel Movements 3 4 Dressing: saturated Cardiovascular: RSR Respiratory: decreased breath sounds Abdomen: soft, non-tender, present bowel sounds Extremities: no tenderness, no cyanosis Laboratory Tests Test 06/18/20 04:00 White Blood Count 8.5 K/UL (4.8-10.8) Red Blood Count 3.22 M/UL (4.20-5.40) L Hemoglobin 10.1 G/DL (12.0-16.0) L Hematocrit 29.0 % (37.0-47.0) L Mean Corpuscular Volume 90 FL (80-99) Mean Corpuscular Hemoglobin 31.5 PG (27.0-31.0) H Mean Corpuscular Hemoglobin Concent 34.9 G/DL (32.0-36.0) Red Cell Distribution Width 14.5 % (11.6-14.8) Platelet Count 243 K/UL (150-450) Mean Platelet Volume 9.2 FL (6.5-10.1) Neutrophils (%) (Auto) 75.7 % (45.0-75.0) H Lymphocytes (%) (Auto) 12.6 % (20.0-45.0) L Monocytes (%) (Auto) 9.3 % (1.0-10.0) Eosinophils (%) (Auto) 0.6 % (0.0-3.0) Basophils (%) (Auto) 1.8 % (0.0-2.0) Sodium Level 143 MMOL/L (136-145) Potassium Level 3.6 MMOL/L (3.5-5.1) Chloride Level 106 MMOL/L (98-107) Carbon Dioxide Level 31 MMOL/L (21-32) Anion Gap 7 mmol/L (5-15) Blood Urea Nitrogen 21 mg/dL (7-18) H Creatinine 0.5 MG/DL (0.55-1.30) L Estimat Glomerular Filtration Rate > 60 mL/min (>60) Glucose Level 89 MG/DL (74-106) Calcium Level 9.8 MG/DL (8.5-10.1) Total Bilirubin 0.5 MG/DL (0.2-1.0) Aspartate Amino Transf (AST/SGOT) 29 U/L (15-37) Alanine Aminotransferase (ALT/SGPT) 51 U/L (12-78) Alkaline Phosphatase 79 U/L (46-116) Total Protein 6.0 G/DL (6.4-8.2) L Albumin 2.2 G/DL (3.4-5.0) L Globulin 3.8 g/dL Albumin/Globulin Ratio 0.6 (1.0-2.7) L Plan Problems: (1) Hypernatremia (2) Renal failure (3) Respiratory failure (4) Sepsis Assessment & Plan: COVID + leukocytosis anemia electrolytes abnormal on iv fluids renal input appreciated cxr noted abx as per ID will follow with recs Will likely need trach difficult weaning conservatorship working with case management social work to figure out goals of care s/p peg and trach improving labs noted lovenox held repeat labs noted dressings around trach with staining. evaluated. no bleeding noted. slight bloody dressing. changed and reevaluted an hour later without any bleeding. serosang dressings trach stable no active bleeding trend labs much more comfortable Interim placement of orogastric tube, also documented on recent abdominal radiograph. Stable satisfactory position of endotracheal tube and right jugular central venous catheter. There is increased pleural fluid and likely left basilar consolidation/atelectasis. The right lung and pleural space remain clear. Impression: Increasing left pleural fluid and likely basilar consolidation/atelectasis. Interim orogastric intubation DAILY ESTIMATED NEEDS: Needs based on Pulmonary, DM, wounds 66.6kg 25-30 kcals/kg 7573-9943 total kcals 1.25-1.5 g protein/kg 83-100 g total protein 20-25 mL/kg 7784-2134 total fluid mLs NUTRITION DIAGNOSIS: Swallowing difficulty r/t dysphagia as evidenced by h/o CVA, pt is GT dep, currently ICU status, now intubated, off pressor support, GT feeds initiated. CURRENT TF:Glucerna 1.2 @45ml/hr ENTERAL NUTRITION RECOMMENDATIONS: As medically able: GLUCERNA 1.5 goal of 45ml/hr x24 hrs to provide 1080ml, 1620 kcal, 89g pro, 820ml free H2O -> as medically able without aspiration risk start Glucerna 1.5 @low rate 25ml/hr for 6 hrs. Advance as tolerated 10ml/hr q4-6 hrs to goal. - Flush per , HOB over 30 degrees. ---- If not hemodynamically stable, rec trophic feeds of 5-10ml/hr to maintain gut integrity. ADDITIONAL RECOMMENDATIONS: 1) Obtain an accurate calibrated bed scale wt 2) F/up w/ H&P 3) With active TF orders, add JASMYN BID for noted DTPI wounds 4) TF recs as above when off bipap and w/ hemodynamic stability -> Now intubated, off pressors, on GT feeds. he spleen size is normal. The gallbladder contains sludge. No stones. No wall thickening nor pericholecystic fluid. Common bile duct measures 4 mm in diameter. Small amount free fluid is seen adjacent to the liver and spleen Impression: Gallbladder sludge. Negative for dilated bile ducts Normal appearing liver and spleen Patient with respiratory failure intubated on support unable to wean safely. A tracheostomy in this case would be indicated and recommended. Patient is full code but conserved. Given her condition waiting a significant period of time is at high risk for her given the risk for extubation duration of tube and worsening with her ET tube. A trach would be functional manageable for her and recommended. Unfortunately waiting for the time. Would be advisable and discus sed with the social workers geriatric case manager and medical teams. Metal Alloy Scientist as well. ICU team as well. We will proceed with tracheostomy in patient's best interest given her CODE STATUS and wishes and care plan. i have been asked by GI and medical teams to place PEG as well. after careful evaluation I agree with medical teams that patient would also benefit from feeding tube access. given her condition, Covid status, care plan, goals of care, will place peg at same time of trach to minimize exposure and OR time and limit procedure risks for patient. (5) Elevated d-dimer (6) COVID-19 Assessment & Plan: ++ (7) Pressure ulcer Assessment & Plan: Pt presented on admission with multiple Pressure injuries.DTPI noted to R Buttocks (L)3.8cm x (W)3.4cm. Base of wound is purpuric,fluctuant with surrounding maroon and indurated borders. DTPI Upper L Buttocks(L)5.5cm x (W)4cm. Base of wound is maroon and indurated. Borders are irregular. Non-Blanchable erythema without induration/fluctuance L lower buttocks(L)4cm x (W)7cm. R and L heels are soft but blanchable. Erosion noted at peristomal GT site. Site is erythematous and excoriated. Small amt. sanguineous exudate. Tx.Plan: Apply Moisture Barrier Paste to Sacrum, R and L Buttocks. Cover each area with Optifoam drsg. Change every 3 days and prn. Apply Moisture Barrier Paste to R and L Ischial tuberosities with each incontinence care. Apply Cavilon Skin Barrier to both heels. Cover each heel and malleoli with Optifoam drsg. Change every 7 days and prn. Reposition at least every 2hours or as tolerated. Off-load heels with pillow. APM/DARIN Mattress overlay. Apply Zinc Oxide Paste TID to GT site. Leave open to Air. (8) Dementia (9) CVA (cerebral vascular accident) (10) T2DM (type 2 diabetes mellitus) (11) Gastrostomy present (12) COVID-19 (13) Rapid atrial fibrillation Paul Garcia Jun 18, 2020 12:59
--- NOTE | 2020-06-18 14:19 | Pulmonology Progress Note ---
Subjective ROS Limited/Unobtainable: Yes Interval Events: Tracheal bleding resolved Constitutional: Reports: no symptoms HEENT: Repors: no symptoms Respiratory: Reports: no symptoms Cardiovascular: Reports: no symptoms Gastrointestinal/Abdominal: Reports: no symptoms Genitourinary: Reports: no symptoms Allergies: Coded Allergies: DIVALPROEX SODIUM (Verified Allergy, Unknown, 05/14/20) PENICILLINS (Verified Allergy, Unknown, 05/14/20) All Systems: reviewed and negative except above Objective Last 24 Hour Vital Signs Date Time Temp Pulse Resp B/P (MAP) Pulse Ox O2 Delivery O2 Flow Rate FiO2 06/18/20 12:01 40 06/18/20 12:00 98.8 62 18 133/70 (91) 97 06/18/20 12:00 61 06/18/20 11:59 Mechanical Ventilator 06/18/20 11:15 67 20 40 06/18/20 08:20 Mechanical Ventilator 06/18/20 08:00 71 06/18/20 08:00 98.1 69 12 115/65 (82) 99 06/18/20 08:00 40 06/18/20 07:18 71 16 40 06/18/20 04:00 Mechanical Ventilator 06/18/20 04:00 98.5 57 14 99/45 (63) 100 06/18/20 04:00 40 06/18/20 03:54 64 06/18/20 02:33 55 12 40 06/18/20 00:00 40 06/18/20 00:00 Mechanical Ventilator 06/18/20 00:00 98.2 54 15 108/73 (85) 100 06/17/20 23:57 57 06/17/20 22:36 56 14 40 06/17/20 20:00 98.7 52 15 141/70 (93) 100 06/17/20 20:00 Mechanical Ventilator 06/17/20 20:00 40 06/17/20 19:35 55 06/17/20 19:00 52 14 40 06/17/20 16:46 58 13 40 06/17/20 16:00 98.2 56 15 140/75 (96) 100 06/17/20 16:00 40 06/17/20 16:00 Mechanical Ventilator 06/17/20 15:43 51 17 06/17/20 15:23 100 18 Intake and Output 06/17/20 06/18/20 19:00 07:00 Intake Total 420 ml 1230 ml Output Total 975 ml Balance 420 ml 255 ml Free Water 400 ml IV Total 110 ml Tube Feeding 420 ml 720 ml Output Urine Total 975 ml # Bowel Movements 3 4 General Appearance: no acute distress HEENT: normocephalic, status post trach Respiratory: chest wall non-tender, lungs clear, other - trach in place Cardiovascular: normal peripheral pulses, normal rate, regular rhythm Abdomen: normal bowel sounds, soft, non tender, non distended, other - GT Extremities: no cyanosis, no clubbing, no edema Neurologic: unresponsiveness Laboratory Tests 06/18/20 04:00: White Blood Count 8.5, Red Blood Count 3.22L, Hemoglobin 10.1L, Hematocrit 29.0L , Mean Corpuscular Volume 90, Mean Corpuscular Hemoglobin 31.5H, Mean Corpuscular Hemoglobin Concent 34.9, Red Cell Distribution Width 14.5, Platelet Count 243, Mean Platelet Volume 9.2, Neutrophils (%) (Auto) 75.7H, Lymphocytes (%) (Auto) 12.6L, Monocytes (%) (Auto) 9.3, Eosinophils (%) (Auto) 0.6, Basophils (%) (Auto) 1.8, Sodium Level 143, Potassium Level 3.6, Chloride Level 106, Carbon Dioxide Level 31, Anion Gap 7, Blood Urea Nitrogen 21H, Creatinine 0.5L, Estimat Glomerular Filtration Rate > 60, Glucose Level 89, Calcium Level 9.8, Total Bilirubin 0.5, Aspartate Amino Transf (AST/SGOT) 29, Alanine Aminotra nsferase (ALT/SGPT) 51, Alkaline Phosphatase 79, Total Protein 6.0L, Albumin 2.2L, Globulin 3.8, Albumin/Globulin Ratio 0.6L Current Medications Medications (Trade) Dose Ordered Sig/Morgan Route PRN Reason Start Time Stop Time Status Last Admin Dose Admin Atropine Sulfate (Atropine 0.4mg/ ml) 0.4 mg Q2HR PRN IVP HR <45 05/29/20 21:30 06/28/20 19:24 05/30/20 22:39 Bisacodyl (Dulcolax) 10 mg DAILYPRN PRN RECTAL Constipation 06/13/20 17:15 09/11/20 17:14 Ceftolozane/ Tazobactam 1.5 gm/ Sodium Chloride 110 ml @ 110 mls/hr Q8H IV 06/10/20 18:00 06/18/20 23:59 06/18/20 09:41 Chlorhexidine Gluconate (Lillaim-Hex 2%) 1 applic DAILY@1999 TOPIC 06/08/20 20:00 09/06/20 19:59 06/17/20 20:44 Docusate Sodium (Colace) 100 mg TWICE A DAY GT 06/07/20 18:00 07/07/20 17:59 06/18/20 09:26 Fludrocortisone Acetate (Florinef) 0.1 mg DAILY ORAL 06/05/20 09:00 07/05/20 08:59 06/18/20 09:26 Lactulose (Cephulac) 20 gm BIDPRN PRN GT constipation 06/13/20 17:00 07/13/20 16:59 06/13/20 17:44 Polyethylene Glycol (Miralax) 17 gm BEDTIME GT 06/07/20 21:00 07/07/20 20:59 06/17/20 20:44 Zinc Oxide (Zinc Oxide) 1 applic TIDPRN PRN TOPIC Abdominal cramps 05/20/20 13:00 08/18/20 12:59 Assessment/Plan Assessment/Plan IMPRESSION: 1. Respiratory failure. 2. Diabetes mellitus with hyperglycemia. 3. Septic shock. 4. Chronic G-tube. 5. Decubitus. 6. History of CHF. 7. Tracheal bleeding; Hgb now 8 DISCUSSION: Continue fluids and antibiotics. Pressors prn S/p trach Will continue weaning On 40% FiO2 DVT and GI prophylaxis. Will hold Lovenox due to anemia and tracheal bleeding DC planning to sub-acute Discussed with Dr. Wade. S/p PEG S/p IVC filter placement Richard James Omar Syed MD Jun 18, 2020 14:19
[2020-06-18 16:00] VITALS: BP 125/84
--- NOTE | 2020-06-18 16:33 | Cardiac Electrophysiology PN ---
Assessment/Plan Assessment/Plan 1. [id number] myocardial infarction with peak troponin of 3.4 EKG shows Inferolateral ischemia Due to septic shock, DCCV and Renal failure. Echo had poor windows. 2. PAF with RVR. S/P DCCV 3 times No more fib or accelerated junctional rhythm. Off any AVN ramakrishna for bradycardia 3. S/P Septic shock. On antibiotic. Off Midodrine in view of bradycardia On Florinef 0.1 daily 4. Bradycardia requiring Atropine x 3 on 05/30/20. Off Dopamine and Midodrine 5. Severe hypernatremia with sodium of 174, BUN of 131, creatinine 2.7 due to dehydration. Improved. Cr 0.5 6. Dysphagia, status post PEG replacement per Dr. Matos 7. History of CVA and dementia. 8. Respiratory failure, S/P Tracheostomy by Dr. Garcia 06/01/20 9. DVT. IVC filter DW RN DC to [facility] today Subjective Subjective In SDU in SR with no atrial fib. Charles in 50s S/P bradycardia and received atropin 3 times on 05/31/20 S/P Trach and PEG on 06/02/20. ECG 06/02/20 showed inferolateral ischemia On the vent on 40% Fio2 and Peep 5. S/P IVC filter. DC to [facility] pending today Objective Last 24 Hour Vital Signs Date Time Temp Pulse Resp B/P (MAP) Pulse Ox O2 Delivery O2 Flow Rate FiO2 06/18/20 12:01 40 06/18/20 12:00 98.8 62 18 133/70 (91) 97 06/18/20 12:00 61 06/18/20 11:59 Mechanical Ventilator 06/18/20 11:15 67 20 40 06/18/20 08:20 Mechanical Ventilator 06/18/20 08:00 71 06/18/20 08:00 98.1 69 12 115/65 (82) 99 06/18/20 08:00 40 06/18/20 07:18 71 16 40 06/18/20 04:00 Mechanical Ventilator 06/18/20 04:00 98.5 57 14 99/45 (63) 100 06/18/20 04:00 40 06/18/20 03:54 64 06/18/20 02:33 55 12 40 06/18/20 00:00 40 06/18/20 00:00 Mechanical Ventilator 06/18/20 00:00 98.2 54 15 108/73 (85) 100 06/17/20 23:57 57 06/17/20 22:36 56 14 40 06/17/20 20:00 98.7 52 15 141/70 (93) 100 06/17/20 20:00 Mechanical Ventilator 06/17/20 20:00 40 06/17/20 19:35 55 06/17/20 19:00 52 14 40 06/17/20 16:46 58 13 40 Intake and Output 06/17/20 06/18/20 19:00 07:00 Intake Total 420 ml 1230 ml Output Total 975 ml Balance 420 ml 255 ml Free Water 400 ml IV Total 110 ml Tube Feeding 420 ml 720 ml Output Urine Total 975 ml # Bowel Movements 3 4 Laboratory Tests Test 06/18/20 04:00 White Blood Count 8.5 K/UL (4.8-10.8) Red Blood Count 3.22 M/UL (4.20-5.40) L Hemoglobin 10.1 G/DL (12.0-16.0) L Hematocrit 29.0 % (37.0-47.0) L Mean Corpuscular Volume 90 FL (80-99) Mean Corpuscular Hemoglobin 31.5 PG (27.0-31.0) H Mean Corpuscular Hemoglobin Concent 34.9 G/DL (32.0-36.0) Red Cell Distribution Width 14.5 % (11.6-14.8) Platelet Count 243 K/UL (150-450) Mean Platelet Volume 9.2 FL (6.5-10.1) Neutrophils (%) (Auto) 75.7 % (45.0-75.0) H Lymphocytes (%) (Auto) 12.6 % (20.0-45.0) L Monocytes (%) (Auto) 9.3 % (1.0-10.0) Eosinophils (%) (Auto) 0.6 % (0.0-3.0) Basophils (%) (Auto) 1.8 % (0.0-2.0) Sodium Level 143 MMOL/L (136-145) Potassium Level 3.6 MMOL/L (3.5-5.1) Chloride Level 106 MMOL/L (98-107) Carbon Dioxide Level 31 MMOL/L (21-32) Anion Gap 7 mmol/L (5-15) Blood Urea Nitrogen 21 mg/dL (7-18) H Creatinine 0.5 MG/DL (0.55-1.30) L Estimat Glomerular Filtration Rate > 60 mL/min (>60) Glucose Level 89 MG/DL (74-106) Calcium Level 9.8 MG/DL (8.5-10.1) Total Bilirubin 0.5 MG/DL (0.2-1.0) Aspartate Amino Transf (AST/SGOT) 29 U/L (15-37) Alanine Aminotransferase (ALT/SGPT) 51 U/L (12-78) Alkaline Phosphatase 79 U/L (46-116) Total Protein 6.0 G/DL (6.4-8.2) L Albumin 2.2 G/DL (3.4-5.0) L Globulin 3.8 g/dL Albumin/Globulin Ratio 0.6 (1.0-2.7) L Objective HEAD AND NECK: No JVD. Tracheostomy in place. Left IJ line in place LUNGS: Coarse rhonchi. CARDIOVASCULAR: Regular S1 and S2 with no gallop. ABDOMEN: Soft. G-tube site in place EXTREMITIES: No pitting edema. Norman Morillo MD Jun 18, 2020 16:33
--- NOTE | 2020-06-18 16:42 | NUR ---
NURSE NOTES: Report called in to Anne Carrero, given to SARA Conti
--- NOTE | 2020-06-18 16:45 | Infectious Diseases Prog Note ---
Assessment/Plan 70 yo female with PMHx of Dementia, DM, CVA ( S/P PEG), COVID 19 infection and pressure ulcers. Septic Shock-combination cardiogenic and septic; SP Gram positive bacteremia- contaminant; recurrent Right IJ changed to left IJ 06/10/20 MDR PsA bacteremia- likely from PNA -05/14 Bcx 09/12 S. haemolyticus; 05/17 Bcx Neg -05/31 Bcx / P.a -06/01 Bcx Neg -06/04 Bcx P.a MDR -06/06 BCx - NTD -06/11 SP R IJ cath removal- tip cath cx <10 S. epi (likely contaminant) UTI, sp rx UA (+); ucx 10-20k P. mirabilis (S Ceftriaxone, Cefepime) PNA, superimposed bacterial, sp rx Recent COVID19 pna- now repeat neg x2 -05/27 CXR: Previously seen left lung atelectasis has nearly completely resolved. Retrocardiac atelectasis without or with some component of consolidation. Low lung volumes with bronchovascular crowding. -05/26 CXR: Complete opacification of the left hemithorax with mediastinal shift to the left likely due to complete atelectasis of the left lung perhaps from mucous plugging. rapid COVID PCR neg -05/25 sp cx MDR PsA (I Ceftazidime, Colistin, Polymixin B); suspect colonizer SARS-COV2 neg -05/24 SARS-COV2 pCR inconclusive -05/23 CXR: Worsening aeration with increasing hazy opacification of the left lung base which may related to increased layering pleural effusion and adjacent atelectasis/consolidation. -05/19 CXR: Increasing left pleural fluid and likely basilar co nsolidation/atelectasis. Interim orogastric intubation 05/16 CXR: Retrocardiac density may represent atelectasis versus infiltrate. CXR 05/14/20 showed Retrocardiac atelectasis/infiltrate with Pulmonary venous congestion. sp cx MDR E.coli (S Cefepime, Meropenem, Zosyn) Hx of COVID 19 - Bacteria secondary infection? Asp PNA? COVID 19 tested Pos [facility] - about 3 week [facility] -still positive Rapid COVID PCR 05/14 Resp Fail Intuabted on Vent Leukocytosis; increased (sp steroids)- SP Fever; low grade ,recurrent-SP -06/01 u/a wbc 10-15, nit neg, leuk +1 L femoral DVT EMA, SP SVT -sp cardioversion Hyperglycemia Elevated LFTs; resolving -Abd US: Gallbladder sludge. Negative for dilated bile ducts. Normal appearing liver and spleen. Trace ascites sp trach/peg 06/01 Dementia DM Hx CVA ( S/P PEG) pressure ulcers PLAN - Continue Zerbaxa #14/14 ( End date 06/18/20) - Please repeat Blood Cx 1 week after stopping abx to assure clearance of bacteremia - The lab is working on Zerbaxa and Avycaz Sensi - 06/03/20 SP Meropenem #2 - 06/02/20 SP Vancomycin #2 - 05/27 SP Meropenem # - 05/24 SP Decadron # - 05/19 SP IV Vancomcyin #6 - 05/17 SP Cefepime #4 - f/u Cultures - Monitor CBC and Temps -repeat covid neg x2 -f/u repeat cultures Thank you for consulting [facility]. Will continue to follow along with you. Discussed with RN and Pharmacy staff Subjective Allergies: Coded Allergies: DIVALPROEX SODIUM (Verified Allergy, Unknown, 05/14/20) PENICILLINS (Verified Allergy, Unknown, 05/14/20) afebrile no leukocytosis Objective Last 24 Hour Vital Signs Date Time Temp Pulse Resp B/P (MAP) Pulse Ox O2 Delivery O2 Flow Rate FiO2 06/18/20 15:08 89 18 40 06/18/20 12:01 40 06/18/20 12:00 98.8 62 18 133/70 (91) 97 06/18/20 12:00 61 06/18/20 11:59 Mechanical Ventilator 06/18/20 11:15 67 20 40 06/18/20 08:20 Mechanical Ventilator 06/18/20 08:00 71 06/18/20 08:00 98.1 69 12 115/65 (82) 99 06/18/20 08:00 40 06/18/20 07:18 71 16 40 06/18/20 04:00 Mechanical Ventilator 06/18/20 04:00 98.5 57 14 99/45 (63) 100 06/18/20 04:00 40 06/18/20 03:54 64 10/10/20 02:33 55 12 40 06/18/20 00:00 40 06/18/20 00:00 Mechanical Ventilator 06/18/20 00:00 98.2 54 15 108/73 (85) 100 06/17/20 23:57 57 06/17/20 22:36 56 14 40 06/17/20 20:00 98.7 52 15 141/70 (93) 100 06/17/20 20:00 Mechanical Ventilator 06/17/20 20:00 40 06/17/20 19:35 55 06/17/20 19:00 52 14 40 06/17/20 16:46 58 13 40 Height (Feet): 5 Height (Inches): 5.00 Weight (Pounds): 142 HEENT: NCAT, MMM, Pulm: Equal rise and fall B/L ABD: Soft, ND, PEG Laboratory Tests Test 06/18/20 04:00 White Blood Count 8.5 K/UL (4.8-10.8) Red Blood Count 3.22 M/UL (4.20-5.40) L Hemoglobin 10.1 G/DL (12.0-16.0) L Hematocrit 29.0 % (37.0-47.0) L Mean Corpuscular Volume 90 FL (80-99) Mean Corpuscular Hemoglobin 31.5 PG (27.0-31.0) H Mean Corpuscular Hemoglobin Concent 34.9 G/DL (32.0-36.0) Red Cell Distribution Width 14.5 % (11.6-14.8) Platelet Count 243 K/UL (150-450) Mean Platelet Volume 9.2 FL (6.5-10.1) Neutrophils (%) (Auto) 75.7 % (45.0-75.0) H Lymphocytes (%) (Auto) 12.6 % (20.0-45.0) L Monocytes (%) (Auto) 9.3 % (1.0-10.0) Eosinophils (%) (Auto) 0.6 % (0.0-3.0) Basophils (%) (Auto) 1.8 % (0.0-2.0) Sodium Level 143 MMOL/L (136-145) Potassium Level 3.6 MMOL/L (3.5-5.1) Chloride Level 106 MMOL/L (98-107) Carbon Dioxide Level 31 MMOL/L (21-32) Anion Gap 7 mmol/L (5-15) Blood Urea Nitrogen 21 mg/dL (7-18) H Creatinine 0.5 MG/DL (0.55-1.30) L Estimat Glomerular Filtration Rate > 60 mL/min (>60) Glucose Level 89 MG/DL (74-106) Calcium Level 9.8 MG/DL (8.5-10.1) Total Bilirubin 0.5 MG/DL (0.2-1.0) Aspartate Amino Transf (AST/SGOT) 29 U/L (15-37) Alanine Aminotransferase (ALT/SGPT) 51 U/L (12-78) Alkaline Phosphatase 79 U/L (46-116) Total Protein 6.0 G/DL (6.4-8.2) L Albumin 2.2 G/DL (3.4-5.0) L Globulin 3.8 g/dL Albumin/Globulin Ratio 0.6 (1.0-2.7) L Current Medications Medications (Trade) Dose Ordered Sig/Morgan Route PRN Reason Start Time Stop Time Status Last Admin Dose Admin Atropine Sulfate (Atropine 0.4mg/ ml) 0.4 mg Q2HR PRN IVP HR <45 05/29/20 21:30 06/28/20 19:24 05/30/20 22:39 Bisacodyl (Dulcolax) 10 mg DAILYPRN PRN RECTAL Constipation 06/13/20 17:15 09/11/20 17:14 Ceftolozane/ Tazobactam 1.5 gm/ Sodium Chloride 110 ml @ 110 mls/hr Q8H IV 06/10/20 18:00 06/18/20 23:59 06/18/20 09:41 Chlorhexidine Gluconate (Lilliam-Hex 2%) 1 applic DAILY@2000 TOPIC 06/08/20 20:00 09/06/20 19:59 06/17/20 20:44 Docusate Sodium (Colace) 100 mg TWICE A DAY GT 06/07/20 18:00 07/07/20 17:59 06/18/20 09:26 Fludrocortisone Acetate (Florinef) 0.1 mg DAILY ORAL 06/05/20 09:00 07/05/20 08:59 06/18/20 09:26 Lactulose (Cephulac) 20 gm BIDPRN PRN GT constipation 06/13/20 17:00 07/13/20 16:59 06/13/20 17:44 Polyethylene Glycol (Miralax) 17 gm BEDTIME GT 06/07/20 21:00 07/07/20 20:59 06/17/20 20:44 Zinc Oxide (Zinc Oxide) 1 applic TIDPRN PRN TOPIC Abdominal cramps 05/20/20 13:00 08/18/20 12:59 Yomaira Terry M.D. Jun 18, 2020 16:45
--- NOTE | 2020-06-18 17:15 | NUR ---
NURSE NOTES: [facility] at bedside with RN for ventilator transport. Report given to SARA Calabrese. Pt disconnected from our vent and connected to theirs.
== END 2020-06-18 17:45 | DRG 4 ==
LOC: EDBD 19:15 → EMR 19:45 → ICU 19:55 → EDBEDREQ 20:07 → ICU 22:44 → 2W 06-06 05:42
PROC: 5A1955Z Respiratory Ventilation, Greater than 96 Consecutive Hours (ICD-10-PCS; principal; 2020-05-14)
PROC: 05HM33Z Insertion of Infusion Device into Right Internal Jugular Vein, Percutaneous Approach (ICD-10-PCS; principal; 2020-05-14)
PROC: 5A2204Z Restoration of Cardiac Rhythm, Single (ICD-10-PCS; principal; 2020-05-14)
PROC: 0BH17EZ Insertion of Endotracheal Airway into Trachea, Via Natural or Artificial Opening (ICD-10-PCS; principal; 2020-05-14)
PROC: 0BH17EZ Insertion of Endotracheal Airway into Trachea, Via Natural or Artificial Opening (ICD-10-PCS; 2020-05-27)
PROC: 0DH63UZ Insertion of Feeding Device into Stomach, Percutaneous Approach (ICD-10-PCS; 2020-06-01)
PROC: 0B110F4 Bypass Trachea to Cutaneous with Tracheostomy Device, Open Approach (ICD-10-PCS; 2020-06-01)
PROC: 05HN33Z Insertion of Infusion Device into Left Internal Jugular Vein, Percutaneous Approach (ICD-10-PCS; 2020-06-10)
PROC: 06H03DZ Insertion of Intraluminal Device into Inferior Vena Cava, Percutaneous Approach (ICD-10-PCS; 2020-06-17)
DX: A41.9 Sepsis, unspecified organism (principal); U07.1 COVID-19; I21.4 Non-ST elevation (NSTEMI) myocardial infarction; J12.89 Other viral pneumonia; R65.21 Severe sepsis with septic shock; R57.0 Cardiogenic shock; J96.21 Acute and chronic respiratory failure with hypoxia; E43 Unspecified severe protein-calorie malnutrition; R64 Cachexia; N17.9 Acute kidney failure, unspecified; I47.1 Supraventricular tachycardia; K94.23 Gastrostomy malfunction; E87.0 Hyperosmolality and hypernatremia; N39.0 Urinary tract infection, site not specified; I13.0 Hypertensive heart and chronic kidney disease with heart failure and stage 1 through stage 4 chronic kidney disease, or unspecified chronic kidney disease; I50.40 Unspecified combined systolic (congestive) and diastolic (congestive) heart failure; Z99.11 Dependence on respirator [ventilator] status; I82.412 Acute embolism and thrombosis of left femoral vein; J90 Pleural effusion, not elsewhere classified; J98.11 Atelectasis; I48.0 Paroxysmal atrial fibrillation; I69.991 Dysphagia following unspecified cerebrovascular disease; R13.10 Dysphagia, unspecified; F03.90 Unspecified dementia, unspecified severity, without behavioral disturbance, psychotic disturbance, mood disturbance, and anxiety; E11.65 Type 2 diabetes mellitus with hyperglycemia; E11.22 Type 2 diabetes mellitus with diabetic chronic kidney disease; N18.9 Chronic kidney disease, unspecified; L89.329 Pressure ulcer of left buttock, unspecified stage; L89.319 Pressure ulcer of right buttock, unspecified stage; H54.7 Unspecified visual loss; F20.9 Schizophrenia, unspecified; F32.9 Major depressive disorder, single episode, unspecified; Z99.81 Dependence on supplemental oxygen; D69.6 Thrombocytopenia, unspecified; Z68.20 Body mass index [BMI] 20.0-20.9, adult; E87.6 Hypokalemia; E83.39 Other disorders of phosphorus metabolism; D64.9 Anemia, unspecified; R62.7 Adult failure to thrive
CPT/HCPCS: 31500; 36415; 36569; 36600; 71045; 74018; 76705; 76937; 80048; 80053; 80076; 80162; 80202; 81003; 82009; 82140; 82248; 82270; 82550; 82553; 82728; 82803; 82962; 83036; 83540; 83550; 83605; 83615; 83735; 83880; 84100; 84484; 85007; 85025; 85379; 85610; 85730; 86140; 86703; 86705; 86709; 86803; 86850; 86900; 86901; 86920; 87040; 87070; 87081; 87086; 87181; 87205; 87340; 92960; 93005; 93306; 93970; 94002; 94003; 94150; 96361; 96365; 96367; 99291; J1815; J2370; J7030; S5561; U0002